=== PATIENT | male | born 1955 | race Caucasian/White ===

== ENCOUNTER 2018-07-24 19:45 | Observation (INO) | payer BC, SELFPAY ==
[2018-07-24 19:46] VITALS: BP 143/86; PULSE 95; RESP 16; TEMP 36.9; O2SAT 94; BMI 25.9
--- NOTE | 2018-07-24 20:05 | CT_ITS ---
STUDY: CT BRAIN WITHOUT CONTRAST REASON FOR EXAM: Male, 63 years old. Trauma RADIATION DOSAGE (If Supplied By Facility): CTDIvol = ( 44.99 ) mGy, DLP = ( 846.73 ) mGycm TECHNIQUE: Transaxial CT imaging of the brain was performed without administration of intravenous contrast material. Individualized dose optimization techniques were used for this CT. COMPARISON: None. FINDINGS: Normal soft tissue structures. Normal calvarium. There is mild cerebral atrophy with widening of the extra-axial spaces and ventricular dilatation. There are 2 small hyperdensities in the extra-axial fluid on the left near the skull vertex measuring approximately 1.2 cm in diameter each, suspicious for small focal subdural bleeds. Normal white matter tracts of the cerebral hemispheres. Normal basal ganglia and thalami. Normal brainstem. There is mild cerebellar atrophy. There are no findings of an acute ischemic infarction. There is mucosal thickening of the left maxillary sinus, right sphenoid sinus, and multiple ethmoid air cells bilaterally. CT/Brain/Head without Contrast IMPRESSION: Chronic involutional changes of the brain. There are 2 small hypodensities in the extra-axial fluid on the left near the skull vertex measuring approximately 1.2 cm in diameter each, suspicious for small focal subdural bleeds. Chronic paranasal sinusitis. Electronically Signed: Jeff Mccormick MD at 20:44 EDT , Service support ,
--- NOTE | 2018-07-24 20:06 | CT_ITS ---
STUDY: CT CERVICAL SPINE WITHOUT CONTRAST REASON FOR EXAM: Male, 63 years old. Trauma RADIATION DOSAGE (If Supplied By Facility): CTDIvol = ( 23.49 ) mGy, DLP = ( 497.07 ) mGycm TECHNIQUE: High resolution transaxial imaging was performed without contrast material. Sagittal and coronal images were reconstructed. Individualized dose optimization techniques were used for this CT. COMPARISON: None FINDINGS: Normal craniovertebral junction. Normal anterior atlantoaxial articulation. Normal odontoid process. Normal cervical lordosis. There is diffuse endplate spondylosis and disc space narrowing from C3 to C7. C2-3: Normal endplates. Normal disc height and morphology. Normal central canal and intervertebral neuroforamina. C3-4: There is severe disc space narrowing. There is moderately severe bilateral foraminal narrowing. There are mild degenerative facet changes bilaterally. There is no central canal stenosis. C4-5: There is severe disc space narrowing. There is severe bilateral foraminal narrowing. There is no central canal stenosis. There are mild bilateral degenerative facet changes. C5-6: There is severe disc space narrowing. There are mild bilateral degenerative facet changes. There is severe bilateral foraminal narrowing. There is no central canal stenosis. C6-7: There is severe disc space narrowing. There is moderately severe bilateral foraminal narrowing. There is no central canal stenosis. There are mild bilateral degenerative facet changes. C7-T1: Normal endplates. Normal disc height and morphology. Normal central canal and intervertebral neuroforamina. Normal visualized soft tissue structures. CT/Spine Cervical without Contras IMPRESSION: Multilevel degenerative changes, as described above. Electronically Signed: Jeff Mccormick MD at 20:59 EDT , Service support ,
--- NOTE | 2018-07-24 20:08 | ED.VISSUMM ---
- ER Visit Summary Date of Service: 07/24/18 Chief Complaint: Closed head injury History of Present Illness: The patient is a 63 M by a horse. He fell backwards. Hit his head on a gravel drive and loss conscious. He may have had a seizure. He is now awake and alert. He is backboard and c-collar. He denies any neck pain. He denies any numbness. He denies chest or abdominal pain. He felt fine prior to being knocked down. He has not had other head injuries. He is not on any blood thinners. Physical Examination: Older male backboard and c-collar. No distress. at bedside. H EENT exam pupils are reactive to light. No signs of facial trauma. Posterior scalp is tender. Patient is in a c-collar. Trachea midline. Lungs clear to auscultation bilaterally. Chest wall nontender. Heart regular rhythm no murmur rate in 90s. Abdomen soft nontender. No signs of trauma. No peritoneal signs. Pelvic girdle intact. He is moving all 4 extremities. Neurovascular intact. No deformities. Nontender. 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 Normal dorsi plantarflexion. Neurologically is awake and alert. He knows his nose where he is at. He knows the year. He is following commands. He is acting appropriately. His tongue does have a bruise on the tip he may have bit it. There is no laceration or bleeding. Dentition is intact. Test Results: CT of the C-spine shows degenerative changes but no acute fractures read by the radiologist and reviewed by me. CT of the brain without contrast the first radiologist is unsure if these are calcifications or small subdural hematomas. I spoke to a neuro radiologist who believes these to be calcifications and small meningiomas. But he cannot completely rule out a small subdural. I reviewed the films myself and I also think these are calcifications and small meningiomas. Emergency Department Course and Treatment: Patient will undergo a CT of his head and C-spine. Treatment Plan: Patient is doing well throughout his ER evaluation. He has had no seizures here. His neurologic exam currently is normal. His GCS at 2205 is 15. I discussed at length with the patient, his and son who is a EMT. And all are comfortable with him staying here overnight to have a repeat CAT scan in the morning. I discussed this with the overnight hospitalist who is also comfortable with the plan. Family was offered transfer to a trauma center but they are comfortable staying here. Disposition: Observation admission Impression: Acute head injury with LOC Rule out small subdural versus meningiomas and calcifications on CAT scan This note was generated with Chamate dictation software. It may contain incorrect words, spelling, and punctuation that were not noted in review of the chart prior to signing ED Disposition - Plan for ED Patient: Chief Complaint: Head Injury Referrals: Geoffrey Conley MD [Primary Care Provider] -
[2018-07-24 20:13] VITALS: O2SAT 98
[2018-07-24 20:22] LABS: Absolute Lymphocyte Count 2.27 X10^3/ul (0.83-4.51); Absolute Neutrophil Count 5.7 X10^3/uL (2.0-7.7); Basophil# 0.03 X10^3/uL; Basophil% 0.3 % (0-1); Eosinophil# 0.21 X10^3/uL; Eosinophils% 2.3 % (0-5); Hematocrit 41.6 % (40-54); Hemoglobin 14.1 g/dl (13.0-16.5); Lymphocyte # 2.27 X10^3/ul (4.0); Lymphocyte % 25.3 % (19-41); Mean Corp Hgb Conc 33.9 g/gl (32-36); Mean Corpuscular Volume 88.5 fL (80-94); Mean Platelet Vol. 9.6 fl (6.2-12.0); Monocyte% 8.9 % (0-10); Neutrophil # 5.65 X10^3/uL (2.7-7.7); Neutrophil % 63.1 % (47-70); POSITIVE COUNT NO; POSITIVE DIFFERENTIAL NO; POSITIVE MORPHOLOGY NO; Platelet Count 193 K/mm3 (150-450); RBC Distribution Width CV 12.8 % (11.6-14.6); RBC Distribution Width SD 41.2 fl (35.1-43.9)
[2018-07-24 20:27] LABS: Anion Gap 8 (5-15); BUN 13 mg/dL (7-18); BUN/Creat Ratio 13.4 RATIO (10-20); Calcium,Total 8.2 mg/dL (8.5-10.1); Chloride 106 mmol/L (98-107); Creatinine, Serum 0.97 mg/dL (0.70-1.30); EST Glomerular Filtration Rate 83 mL/min (>60); Est Glom Filt Rate - Afr Amer 100 mL/min (>60); Estimated Creatinine Clearance 71.93 ml/min; Glucose 102 mg/dL (74-106); Potassium 3.7 mmol/L (3.5-5.1); Sodium Level 139 mmol/L (136-145)
[2018-07-24 21:16] VITALS: BP 145/100; PULSE 100; RESP 20; O2SAT 95
[2018-07-24 21:21] VITALS: BP 137/88
[2018-07-24 22:17] VITALS: BP 131/82; PULSE 94; RESP 16; O2SAT 96
--- NOTE | 2018-07-24 22:56 | HP.PCM_ITS ---
Problem List (1) Closed head injury Status: Acute Qualifiers: Encounter type: initial encounter Qualified Code(s): S09.90XA - Unspecified injury of head, initial encounter History of Present Illness Date of Admission: 07/24/18 Chief Complaint: head injury The patient is a 63 year old male with no significant past medical history presents to the ER after falling backwards hitting his head. He was taking a horse to the barn but can;t remember what happened after that. His son was nearby and witnessed him falling backwards and hitting the back of his head. He was unresponsive for approximately two minutes and his son describes seeing his eyes rolling back into his head. 911 was called. The patient became responsive and alert prior to arrival at the ER. He now denies any neurological complaints. No headache, shortness of breath or chest pains nor any other injuries noted. Laboratory findings are within normal limits. CT scan of the head initially was read to have two small areas of concern for subdural hematoma however, upon re- read by neuroradiology it was felt that these were most likely calcifications and not actually bleeding. He will be admitted overnight for observation and w [facility] rescan in am. If negative findings then would dc home with instructions for concussion and followup with PCP as an outpatient. Past Medical History Allergies Penicillins Allergy (Verified 07/24/18 19:49) Upset Stomach Home Medications: Ambulatory Orders Medication Instructions Recorded Minocycline 50 mg PO DAILY 07/24/18 Pravastatin [Pravachol] 40 mg PO QHS 07/24/18 Terazosin HCl [Hytrin] 5 mg PO DAILY 07/24/18 Surgical History: no surgical history Smoking Status: Current some day smoker - *Family History Maternal History Items: No pertinent history Review of Systems Constitutional: Denies: Chills, Fever, Weight Change HEENT: Denies: Head Aches, Sinus Congestion, Sinus Drainage Cardiovascular: Denies: Chest Pain, Palpitations Respiratory: Denies: Cough, Shortness of breath at rest, Sputum production Gastrointestinal: Denies: Abdominal Pain, Nausea, Vomiting Genitourinary: Denies: Dysuria Musculoskeletal: Denies: Joint Pain, Joint Tenderness Skin: Denies: Rash, Wounds Neurological: Reports: - - temporary unresponsive following initial injury. Denies: Focal weakness, Numbness, Tingling Psychiatric: Denies: Anxiety, Depression, Homicidal Ideations, Suicidal Ideations Hematologic/ Lymphatic: Denies: Easy Bruising, Easy Bleeding VTE Information - Inpt Only VTE Present on Admission: No VTE Mechan Device Prophylaxis: SCD's VTE Pharm Prophylaxis ordered?: No Patient Problems: Active and Suspected Problems Closed head injury (Acute) - Physical Exam General: Alert, Oriented x3, Cooperative HEENT: Atraumatic, PERRLA, EOMI, Normocephalic Neck: Supple Lungs: Clear to auscultation, Normal air movement Cardiovascular: Regular rate, Normal S1, Normal S2, No murmurs Abdomen: Bowel Sounds Present, Soft, Non Tender Extremities: No edema, Capillary Refill Less than 3 Seconds Skin: No rashes, No breakdown Musculoskeletal: No Tenderness to Palpation of Joints or Extremities Neurological: Cranial nerves II-XII grossly intact, Neuro grossly intact Psych/Mental Status: Normal Affect, Appropriate Vital Signs Temp Pulse Resp BP Pulse Ox 98.4 F 94 16 131/82 H 96 07/24/18 19:46 07/24/18 22:17 07/24/18 22:17 07/24/18 22:17 07/24/18 22:17 Oxygen Delivery Method Room Air Weight: 165 lb 6.986 oz Body Mass Index (BMI) 25.9 Laboratory Tests Past 24 Hrs 07/24/18 07/24/18 20:00 20:00 WBC 9.0 RBC 4.70 Hgb 14.1 Hct 41.6 MCV 88.5 MCH 30.0 MCHC 33.9 RDW 12.8 RDW Differential 41.2 Plt Count 193 MPV 9.6 Immature Gran % (Auto) 0.100 Neut % (Auto) 63.1 Lymph % (Auto) 25.3 Hamlin % (Auto) 8.9 Eos % (Auto) 2.3 Baso % (Auto) 0.3 Absolute Neuts (auto) 5.7 Absolute Lymphs (auto) 2.27 Total Counted Not Reportable Sodium 139 Potassium 3.7 Chloride 106 Carbon Dioxide 25.0 Anion Gap 8 BUN 13 Creatinine 0.97 Estim Creat Clear Calc 71.93 Est GFR (MDRD) Af Amer 100 Est GFR (MDRD) Non-Af 83 BUN/Creatinine Ratio 13.4 Glucose 102 Calcium 8.2 L Assessment/Plan All Active Problems Closed head injury (Acute) Plan - admit to PCU - neurochecks q 4hrs - Non contrast CT head in am - soft diet advance as tolerated - continue routine home medications - scds if pt to stay prolonged time Code Visit OBSV E&M: 69679 Initial observation care L2
[2018-07-24 23:08] VITALS: BMI 25.9
[2018-07-24 23:23] VITALS: BP 131/80; PULSE 95; RESP 14; TEMP 37.3; O2SAT 96
[2018-07-24] MEDS: Pravastatin 40 MG Tablet PO (23:45)
[2018-07-24] MEDS: Doxazosin 4 MG Tablet PO (23:45)
[2018-07-25 00:15] VITALS: PULSE 95; RESP 14; O2SAT 96
[2018-07-25 04:15] VITALS: BP 111/66; PULSE 89; RESP 16; TEMP 36.9; O2SAT 98
[2018-07-25 04:20] VITALS: PULSE 89; RESP 16; O2SAT 98
[2018-07-25 09:13] VITALS: BP 112/76; PULSE 80; RESP 18; TEMP 37.2; O2SAT 97
--- NOTE | 2018-07-25 09:43 | DCINST_ITS ---
- Discharge Diagnoses Current Active Problems: Current Active and Chronic Problems (1) Closed head injury secondary to mechanical fall w/ loss of consciousness, suspected concussion (2) Tobacco use with possible underlying Chronic COPD (3) Hyperlipidemia You will use the following diet at home:: Cardiac Your food should be the consistency of: Regular Your liquids should be the consistency of: Regular/Thin Discharge Activity: - - Avoid aggressive activity, avoid TV, avoid reading, avoid driving until re-evaluation per primary care physician and assure concussion symptoms are completely resolved prior to slow re-addition of brain activity. Weight Bearing Status: Weight bearing as tolerated Call your doctor if you observe: Fever of 101 or Higher, Inability to urinate, Inability to have a bowel movement, Shortness of breath, Dizziness, Fainting spells, Chest pain, Uncontrolled pain, - - Headaches, nausea or emesis, light or sound increased sensitivity, changes in vision. Instructions: What is Traumatic Brain Injury?, Treatment for Mild Traumatic Brain Injury (Concussion), What is Mild Traumatic Brain Injury (Concussion)?, Discharge Instructions for Concussion, Why Do You Smoke?, Planning to Quit Smoking, Getting Support for Quitting Smoking, Coping with Smoking Withdrawal, Staying Smoke-Free, What is COPD? Additional Instructions: Encourage strongly tobacco cessation. Also given examination suspect possible underlying chronic obstructive pulmonary disease. Recommend pulmonary function testing per your primary care physician. Allergies/Adverse Reactions: Allergies Penicillins Allergy (Verified 07/24/18 19:49) Upset Stomach Medications to take at Discharge Minocycline 50 mg PO BID 07/24/18 Pravastatin [Pravachol] 40 mg PO QHS 07/24/18 Terazosin HCl [Hytrin] 5 mg PO QHS 07/24/18 Primary Care Physician: Geoffrey Conley MD [Primary Care Provider] - Please follow up with your Primary Care Physician in: Follow-up with PCP within 2-3 days to review admission, discuss concussion. Test Results: Test results from this visit will be discussed in further detail at your follow- up appointment, if applicable. Proposed Discharge Date: 07/25/18
--- NOTE | 2018-07-25 09:50 | DS.PCM_ITS ---
Discharge Date and Diagnosis - Problem List Patient Problems: Active and Suspected Problems Closed head injury (Acute) Date of Admission: 07/24/18 Date of Discharge: 07/25/18 - Primary Discharge Diagnosis Active and Suspected Problems (1) Closed head injury secondary to mechanical fall w/ loss of consciousness, suspected concussion (2) Abnormal CT head, MRI Brain w/ tiny calcification versus SDH (3) Tobacco use with possible underlying Chronic COPD (4) Hyperlipidemia - Secondary Discharge Diagnosis (1) Tobacco use with possible underlying Chronic COPD (2) Hyperlipidemia Hospital Course and Treatment Imaging Results: 07/25/18 10:00 CT Head [Brain/Head without Contrast] [CT] Timed Operations: None Procedures: EKG Summary of Care Provided: The patient is a 63 y/o M w/ PMHx: Tobacco use, Suspected underlying COPD, HLD who presents to the [facility] ED on 07/24/18 with history of mechanical fall, noted to fall backwards and hitting 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 Upon ED presentation patient was responsive and alert with no neurological symptoms or complaints. He denied any headache, sensitivity to light or sounds, nausea or emesis. ED evaluation including labs was not marked appearing. CT of the head was performed and initial read was concerning for 2 small areas of possible hematoma however re-read by the neuroradiologist which was discussed with the ED physician and hospitalist was felt likely calcifications with no bleeding. Patient was admitted to medical surgical floor for observation with repeat CT head obtained and reviewed directly with radiation who noted similar findings to initial, but unable to rule out small subdural findings therefore recommendation to obtain MRI Brain versus obtain additional CT head for comparison which was performed. MRI Brain obtained w/ noted 2 small hyperdense extra-axial blood located adjacent to the left posterior falx cerebri/medial to the left posterior paracentral lobule and overlying the left superior frontal lobe gyrus are atypical and not explained on MRI, no magnetic susceptibility on the gradient echo sequence, not hyperintense on T1 and T2 weighted sequences. Reviewed imaging with Neurology, Dr. Pereyra who was consulted and reviewed case as well with recommended MRV Brain without contrast to evaluate for venous thrombus which was unremarkable. Therefore discussed again w/ Neurology and they also reviewed with plan for discharge to home with noted plan follow-up with Neurosurgery outpatient in 2 weeks as well as his service in 4 weeks with planned repeat CT head outpatient. Encourage patient to maintain strict postconcussion brain rest protocols with early follow-up with primary care physician and slow re-transitioning back into activities as able to with all neurological symptoms resolved. Additionally patient examination and history concerning for likely underlying pulmonary disease with recommendations for PFTs to be arranged per primary care physician and tobacco cessation strongly encouraged. DAY OF DISCHARGE PROGRESS NOTE: Subjective: Patient without acute event overnight per self and nursing report. Patient notes only sore at the posterior aspect of the head where he landed otherwise no acute complaints and denies any headache, nausea, emesis, light or sound sensitivity at this time. Encouraged tobacco cessation and noted concern for possible underlying pulmonary disease baseline. Patient denies fever, chills, nausea, emesis, abdominal pain, chest pain or dyspnea. Patient agreeable to discharge to home following repeat CT head confirming no acute bleeding or concerning findings. Patient will be discharged with follow-up with primary care physician early to continue to evaluate for concussion protocols. Objective: T 98.9, heart rate 80, BP 112/76, respiratory rate 18, 97% on room air. Physical Examination: General: awake, alert, oriented x 3 and cooperative, seated upright in the bed, NAD. Skin: normal color, turgor, no icterus, cyanosis, except posterior scalp small lump secondary to recent fall with no acute bleeding noted. HEENT: AT/NC except posterior scalp small lump on the right lateral side secondary to recent fall with no acute bleeding noted, EOMI, PERRLA, MMM. Lungs: Mildly diminished bases, moderate effort, expiratory wheezing noted, no rales or rhonchi. Heart: Regular rate and rhythm; no gallop, rub audible. Abdomen: soft, NTTP, ND, normal BS. Extremities: no cyanosis, clubbing, or edema. Neurological: patient awake, alert, oriented x 3; cognitive function appears intact upon questioning,; pupils equally reactive to light and accomodation; cranial nerves II-XII grossly normal, moving all 4 extremities, strength appropriate. Psychiatric: affect appears normal, no acute evidence of depressive or anxiety feelings. Assessment and Plan: Please see hospital summary above. Discharge Activity: - - Avoid aggressive activity, avoid TV, avoid reading, avoid driving until re-evaluation per primary care physician and assure concussion symptoms are completely resolved prior to slow re-addition of brain activity. Weight Bearing Status: Weight bearing as tolerated Call your doctor if you observe: Fever of 101 or Higher, Inability to urinate, Inability to have a bowel movement, Shortness of breath, Dizziness, Fainting spells, Chest pain, Uncontrolled pain, - - Headaches, nausea or emesis, light or sound increased sensitivity, changes in vision. Home Medications: Medications to take at Discharge Minocycline 50 mg PO BID 07/24/18 Pravastatin [Pravachol] 40 mg PO QHS 07/24/18 Terazosin HCl [Hytrin] 5 mg PO QHS 07/24/18 Primary Care Physician: Geoffrey Conley MD [Primary Care Provider] - Please follow up with your Primary Care Physician in: Follow-up with PCP within 2-3 days to review admission, discuss concussion. Patient Instructions: What is Traumatic Brain Injury?, What is Mild Traumatic Brain Injury (Concussion)?, Treatment for Mild Traumatic Brain Injury (Concussion), What is COPD?, Why Do You Smoke?, Planning to Quit Smoking, Getting Support for Quitting Smoking, Coping with Smoking Withdrawal, Staying Smoke-Free, Discharge Instructions for Concussion Disposition: Home Minutes spent on discharge:: 25 Patient Condition:: Fair Medical Necessity - Tobacco Use Smoking Status: Current some day smoker Meaningful Use Info Meaningful Use Diagnoses (Choose all that apply): None applicable Code Visit OBSV E&M: 59661 Observation care discharge
--- NOTE | 2018-07-25 10:00 | CT_ITS ---
STUDY: CT BRAIN WITHOUT CONTRAST REASON FOR EXAM: Male, 63 years old. Trauma. Suspicion for small focal subdural hemorrhages. RADIATION DOSAGE (If Supplied By Facility): CTDIvol = ( 44.99 ) mGy, DLP = ( 812.98 ) mGycm TECHNIQUE: Transaxial CT imaging of the brain was performed without administration of intravenous contrast material. Individualized dose optimization techniques were used for this CT. COMPARISON: 07/24/2018 CT brain. FINDINGS: Stable soft tissue structures. Stable calvarium. Stable size ventricles and extra-axial spaces for the patient's age. Normal white matter tracts of the cerebral hemispheres. Normal basal ganglia and thalami. Normal brainstem. Mild decrease cerebellum size noted consistent with mild atrophic changes. There is no new intracranial hemorrhage. 2 rounded high attenuation lesions are seen in the superior left vertex subdural region, the more anterior of which measures approximately 0.9 x 1.1 cm, previously 1.1 x 1.2 cm and the more posterior similar lesion near the posterior falx is also noted approximate 0.96 x 0.48 cm, previously 1.2 x 10.7 cm. There are no findings of a large territorial acute ischemic infarction. Nonacute visualized paranasal sinuses with partial opacification again seen bilateral maxillary, right sphenoid and bilateral ethmoid air cells. Nonacute appearing bilateral mastoid air cells and middle ears noted. Extensive metal dental artifact noted from most inferior images obtained obscuring adjacent structures. Severe bilateral cavernous carotid arterial calcifications. CT/Brain/Head without Contrast IMPRESSION: Redemonstration smaller appearing left superior vertex rounded high attenuation areas, may represent tiny subdural hemorrhages with mild clot retraction given central Hounsfield units of [address]/MRI brain imaging available. No new CT finding of intracranial acute hemorrhage identified. Bilateral chronic sinusitis, unchanged. Mild limitations above. Electronically Signed: Christopher Hickey, at 11:14 EDT Tel , Service support ,
--- NOTE | 2018-07-25 11:41 | MRI_ITS ---
STUDY: MRI BRAIN WITHOUT CONTRAST REASON FOR EXAM: Male, 63 years old. Headache. Status post fall with loss of consciousness. Follow-up to CT brain scans concern for subdural versus calcifications. TECHNIQUE: Standardized multiplanar fat and water weighted pulse sequences were obtained. COMPARISON: CT head without contrast 07/25/2018. FINDINGS: The hyperdense extra-axial blood adjacent the posterior left side of the falx cerebri and medial to the left posterior paracentral lobule and another small hyperdense extra-axial blood overlying the left superior frontal lobe gyrus did not show any genetic susceptibility on the gradient echo sequence. They are not hyperintense on T1 and T2. Normal size of the ventricles and extra-axial spaces for the patient's age. T2 FLAIR hyperintensity foci in the white matter of both cerebral hemispheres are chronic white matter ischemic changes. Normal bilateral basal ganglia. Normal thalami. There is no extra-axial fluid accumulation. Normal flow voids within the major intracranial circulation suggesting patency by spin echo criteria. Normal sella turcica, pituitary gland, infundibular stalk, optic chiasm and hypothalamus. Normal tectal plate and pineal gland. Normal midbrain, basil and medulla. Normal cerebellum. Normal basal cisterns. Normal bilateral temporal bones. Normal bilateral internal auditory canals. No demonstrated orbital abnormality, within the constraints of a routine brain study. Normal visualized paranasal sinuses. Normal calvarium and skull base. Normal visualized soft tissue structures. Normal visualized upper cervical spine. MRI/Brain without Contrast IMPRESSION: 1. The 2 small hyperdense extra-axial blood located adjacent the left posterior falx cerebri/medial to the left posterior paracentral lobule and overlying the left superior frontal lobe gyrus are atypical and not explained on MRI. They have no magnetic susceptibility on the gradient echo sequence. They are also not hyperintense on T1 and T2 weighted sequences. The possibility of atypical venous varix cannot be excluded. CTA head to include the venous phase may be helpful for further evaluation. 2. Chronic white matter ischemic changes in both cerebral hemispheres. Electronically Signed: Saul Junior MD at 13:23 EDT , Service support ,
[2018-07-25 13:11] VITALS: BP 144/90; PULSE 92; RESP 18; TEMP 37; O2SAT 96
--- NOTE | 2018-07-25 13:38 | MRI_ITS ---
STUDY: EXAMINATION - MRV BRAIN WITHOUT CONTRAST REASON FOR EXAM: Male, 63 years old. Headache. Status post fall with loss of consciousness. Evaluate abnormal hyperdense blood seen on CT but not confirmed on MRI due to absence of magnetic susceptibility on gradient echo sequence. For further evaluation. TECHNIQUE: 3D [id number] (TOF) imaging was performed in a 1.5 gonzalo MRI scanner. COMPARISON: CT head without contrast 07/25/2018. MR brain without contrast 07/25/2018. FINDINGS: Normal flow within the superior sagittal sinus. Normal flow within the superficial cortical veins. Normal flow within the paired internal cerebral veins, vein of Darius and straight sinus. Normal right transverse sinus and right sigmoid sinus. Hypoplastic left transverse sinus. Normal left sigmoid sinus. Normal flow within the bilateral jugular bulbs. MRI/MRV Head Without Contrast IMPRESSION: Normal unenhanced MRV of the brain. COMMENT: In my opinion, CTA to include venous phase will be very helpful for further evaluation but serial follow-up CT head scan without contrast will also help. Electronically Signed: Saul Junior MD at 16:34 EDT , Service support ,
--- NOTE | 2018-07-25 14:40 | CON.PCM_ITS ---
Problem List (1) Closed head injury Status: Acute Qualifiers: Encounter type: initial encounter Qualified Code(s): S09.90XA - Unspecified injury of head, initial encounter Reason for Consult Date of Consultation: 07/25/18 Reason for Consultation: Fall, head injury, abnormal imaging History of Present Illness: The patient is a 63 year old M with PMH HLD, BPH admitted following a fall and closed head injury. Per patient he was fell backwards hit his head, was knocked down by his horse, was unresponsive for about 2 minutes, does not remember the event, no witnessed GTCs, or post ictal state, denies any syncope in the past. Per documentation he was alert and oriented on arrival to the ED and did not have any focal neurological deficits. Had soreness in the head after the event, but denies any SAUCEDA, visual disturbances, vision loss, speech disturbances, focal motor weakness or sensory loss. CT head done on admission reported to show 2 small extra-axial hyperdensities on the left near the skull vertex more likely represent calcifications due to sharp margins. Repeat CT head this morning (07/25/18) reported as redemonstration smaller appearing left superior vertex rounded high attenuation areas, may represent tiny subdural hemorrhages with mild clot retraction given central Hounsfield units of 46. MRI brain done following that reported to show 2 small hyperdense extra-axial blood located adjacent the left posterior falx cerebri/medial to the left posterior paracentral lobule and overlying the left superior frontal lobe gyrus are atypical and not explained on MRI. They have no magnetic susceptibility on the gradient echo sequence. They are also not hyperintense on T1 and T2 weighted sequences. The possibility of atypical venous varix cannot be excluded. Past Medical History Allergies Penicillins Allergy (Verified 07/24/18 19:49) Upset Stomach Home Medications: Ambulatory Orders Medication Instructions Recorded Minocycline 50 mg PO BID 07/24/18 Pravastatin [Pravachol] 40 mg PO QHS 07/24/18 Terazosin HCl [Hytrin] 5 mg PO QHS 07/24/18 Surgical History: no surgical history Lives: Spouse/ Significant Other Smoking Status: Current some day smoker Alcohol: None Drugs: None - *Family History Maternal History Items: No pertinent history Review of Systems Constitutional: Reports: - - complete ROS negative except as documented in HPI Patient Problems: Active and Suspected Problems Closed head injury (Acute) - Physical Exam General: Alert HEENT: Normocephalic Neck: Supple Lungs: Normal air movement Cardiovascular: Normal S1, Normal S2 Abdomen: Bowel Sounds Present Extremities: No cyanosis Neurological: Cranial nerves II-XII grossly intact, - - consious, alert, AoAx3, CN 2-12 grossly intact, power 5/5 all 4 extremities, no sensory loss, no cerebellar signs, Reflexes + B/L B/S/T/K/A, gait deferred. Psych/Mental Status: Normal Affect Vital Signs Temp Pulse Resp BP Pulse Ox 98.6 F 92 18 144/90 H 96 07/25/18 13:11 07/25/18 13:11 07/25/18 13:11 07/25/18 13:11 07/25/18 13:11 Oxygen Delivery Method Room Air Weight: 75.1 kg Body Mass Index (BMI) 25.9 Intake and Output for Last 24 Hours 07/23/18 07/24/18 07/25/18 23:59 23:59 23:59 Intake Total 680 / 680 Output Total 1225 / 1225 Balance -545 / -545 Laboratory Tests Past 24 Hrs 07/24/18 07/24/18 20:00 20:00 WBC 9.0 RBC 4.70 Hgb 14.1 Hct 41.6 MCV 88.5 MCH 30.0 MCHC 33.9 RDW 12.8 RDW Differential 41.2 Plt Count 193 MPV 9.6 Immature Gran % (Auto) 0.100 Neut % (Auto) 63.1 Lymph % (Auto) 25.3 [place] % (Auto) 8.9 Eos % (Auto) 2.3 Baso % (Auto) 0.3 Absolute Neuts (auto) 5.7 Absolute Lymphs (auto) 2.27 Total Counted Not Reportable Sodium 139 Potassium 3.7 Chloride 106 Carbon Dioxide 25.0 Anion Gap 8 BUN 13 Creatinine 0.97 Estim Creat Clear Calc 71.93 Est GFR (MDRD) Af Amer 100 Est GFR (MDRD) Non-Af 83 BUN/Creatinine Ratio 13.4 Glucose 102 Calcium 8.2 L Assessment/Plan All Active Problems Closed head injury (Acute) The patient is a 63 year old M with PMH HLD, BPH admitted following a fall and closed head injury. Per patient he was fell backwards hit his head, was knocked down by his horse, was unresponsive for about 2 minutes, does not remember the event, no witnessed GTCs, or post ictal state, but per son his eyes rolled back, denies any syncope in the past. Per documentation he was alert and oriented on arrival to the ED and did not have any focal neurological deficits. Had soreness in the head after the event, but denies any SAUCEDA, visual disturbances, vision loss, speech disturbances, focal motor weakness or sensory loss. CT head done on admission reported to show 2 small extra-axial hyperdensities on the left near the skull vertex more likely represent calcifications due to sharp margins. Repeat CT head this morning (07/25/18) reported as redemonstration smaller appearing left superior vertex rounded high attenuation areas, may represent tiny subdural hemorrhages with mild clot retraction given central Hounsfield units of 46. MRI brain done following that reported to show 2 small hyperdense extra-axial blood located adjacent the left posterior falx cerebri/medial to the left posterior paracentral lobule and overlying the left superior frontal lobe gyrus are atypical and not explained on MRI. They have no magnetic susceptibility on the gradient echo sequence. They are also not hyperintense on T1 and T2 weighted sequences. The possibility of atypical venous varix cannot be excluded. Impression Closed head injury Plan -Check MRV to r/o venous sinus thrombosis -MRI brain and CT head reviewed- likely calcification vs tiny small SDH -Labs reviewed -Counseled the patient and family to monitor for seizures, focal neurological symptoms and change in mental status -Follow up with Neurosurgery as outpatient chantal. -Fall precautions -GI/DVT prophylaxis -Further medical management per primary team -Follow with Neurology as outpatient in [address] head in 4 weeks -Please call with questions if any -Thank you for allowing us to participate in patient's care and management. Code Visit Inpatient E&M: 15098 Init Hosp L3
[2018-07-25 17:15] VITALS: BP 140/84; PULSE 97; RESP 18; TEMP 36.6; O2SAT 99
== END 2018-07-25 17:20 | disposition home or self-care (01) ==
LOC: ED 20:57 → MS3 22:51
PROVIDERS: Admitting Provider Family Medicine; Emergency Provider Emergency Medicine; Family Provider Family Medicine; PCP Family Medicine; Visit Provider Family Medicine
DX: S06.9X9A Unspecified intracranial injury with loss of consciousness of unspecified duration, initial encounter (principal); W19.XXXA Unspecified fall, initial encounter; Y93.K9 Activity, other involving animal care; Y92.89 Other specified places as the place of occurrence of the external cause; E78.5 Hyperlipidemia, unspecified; N40.0 Benign prostatic hyperplasia without lower urinary tract symptoms; Z79.899 Other long term (current) drug therapy; I10 Essential (primary) hypertension; F17.200 Nicotine dependence, unspecified, uncomplicated
CPT/HCPCS: 70450; 70544; 70551; 72125; 80048; 85025; 99218; 99285; 99406; G0378

== ENCOUNTER → 2018-08-25 14:38 | Outpatient (CLI) | payer BC, SELFPAY ==
--- NOTE | 2018-08-25 14:41 | CT_ITS ---
STUDY: CT BRAIN WITHOUT CONTRAST REASON FOR EXAM: Male, 63 years old. Closed and injury, headache RADIATION DOSAGE (If Supplied By Facility): CTDIvol = ( 44.99 ) mGy, DLP = ( 829.85 ) mGycm TECHNIQUE: Transaxial CT imaging of the brain was performed without administration of intravenous contrast material. Individualized dose optimization techniques were used for this CT. COMPARISON: 07/25/2018 FINDINGS: Normal soft tissue structures. Normal calvarium. There is mild cerebral atrophy with widening of the extra-axial spaces and ventricular dilatation. There are areas of decreased attenuation within the white matter tracts of the supratentorial brain, consistent with microvascular disease changes. Normal basal ganglia and thalami. Normal brainstem. Normal cerebellum. On the coronal images there is an isodense area along the inner table of the left parietal region with thickness of 5 mm consistent with a subacute subdural hemorrhage. There is no midline shift or mass effect because of the atrophic changes present. There is however evidence of hyper density within this collection on coronal recon images 64-69 suggesting a focal area of acute hemorrhage. Normal visualized paranasal sinuses. CT/Brain/Head without Contrast IMPRESSION: Evidence of a subacute resolving left subdural hematoma with a focal area of hyperdensity within the hematoma suggesting acute hemorrhage. There is no mass effect, or midline shift or associated edema due to the atrophic changes present.. Electronically Signed: Houston Nixon MD at 17:23 EST , Service support ,
== END ==
PROVIDERS: Family Provider Family Medicine; PCP Family Medicine; Referring Provider Clinical Nurse Specialist Acute Care; Visit Provider Clinical Nurse Specialist Acute Care
DX: S06.5X9A Traumatic subdural hemorrhage with loss of consciousness of unspecified duration, initial encounter (principal); W19.XXXA Unspecified fall, initial encounter
CPT/HCPCS: 70450

== ENCOUNTER → 2018-09-19 14:34 | Outpatient (CLI) | payer BC, SELFPAY ==
--- NOTE | 2018-09-19 14:37 | CT_ITS ---
STUDY: CT BRAIN WITHOUT CONTRAST REASON FOR EXAM: Male, 63 years old. ] Head injury RADIATION DOSAGE (If Supplied By Facility): CTDIvol = ( 60.81 ) mGy, DLP = ( 2179.77 ) mGycm TECHNIQUE: Transaxial CT imaging of the brain was performed without administration of intravenous contrast material. Individualized dose optimization techniques were used for this CT. COMPARISON: None. FINDINGS: There is mild generalized brain atrophy with no acute hemorrhage or acute infarction and no intra or extra-axial tumor mass. The calvarium is intact. No scalp swellings. The orbits and mastoid air cells are normal. There are inflammatory changes involving the right sphenoid sinus CT/Brain/Head without Contrast IMPRESSION: No acute findings in the brain. Emphysematous changes in the right sphenoid sinus Electronically Signed: Gideon Swift MD at 5:02 EST Tel , Service support ,
== END ==
PROVIDERS: Family Provider Family Medicine; PCP Family Medicine; Referring Provider Nurse Practitioner Acute Care; Visit Provider Nurse Practitioner Acute Care
DX: S09.90XA Unspecified injury of head, initial encounter (principal); R58 Hemorrhage, not elsewhere classified
CPT/HCPCS: 70450

== ENCOUNTER → 2020-03-12 10:06 | Outpatient (CLI) | payer BC, SELFPAY ==
--- NOTE | 2020-03-12 10:15 | CT_ITS ---
STUDY: CT BRAIN WITHOUT CONTRAST REASON FOR EXAM: Male, 65 years old. FALLS, HX CONCUSSION YRS AGO RADIATION DOSAGE (If Supplied By Facility): CTDIvol = ( 60.81 ) mGy, DLP = ( 1112.69 ) mGycm TECHNIQUE: Transaxial CT imaging of the brain was performed without administration of intravenous contrast material. Individualized dose optimization techniques were used for this CT. COMPARISON: Comparison is made with prior examination dated September 19, 2018. FINDINGS: Normal soft tissue structures. Normal calvarium. There is mild cerebral atrophy with widening of the extra-axial spaces and ventricular dilatation. Stable focal area of encephalomalacia in the left parietal lobe. Normal basal ganglia and thalami. Normal brainstem. There is mild cerebellar atrophy. There is no intracranial hemorrhage. There are no findings of an acute ischemic infarction. Partial opacification of the ethmoid sinuses and the right sphenoid sinus. Mucosal thickening along the inferior aspect of the maxillary sinuses bilaterally. CT/Brain/Head without Contrast IMPRESSION: Chronic involutional changes of the brain. Sinusitis. Electronically Signed: Addy Gonzalez, at 11:12 EDT , Service support ,
== END ==
PROVIDERS: PCP Family Medicine; Referring Provider Clinical Nurse Specialist Acute Care; Visit Provider Clinical Nurse Specialist Acute Care
DX: S09.90XS Unspecified injury of head, sequela (principal)
CPT/HCPCS: 70450

== ENCOUNTER 2020-08-26 14:56 | Emergency (ER) | payer OTHER, BC, SELFPAY ==
[2020-08-26 14:57] VITALS: BP 122/53; PULSE 125; RESP 16; TEMP 36.3; O2SAT 96; BMI 26.9
--- NOTE | 2020-08-26 15:16 | RAD_ITS ---
STUDY: X-RAY - LEFT ANKLE REASON FOR EXAM: Male, 65 years old. FALL, ANKLE PAIN TECHNIQUE: 3 view(s) of the ankle. COMPARISON: None. FINDINGS: Normal visualized distal tibia and fibula. Nondisplaced linear fracture of the lateral malleolus with overlying soft tissue swelling. Normal tibiotalar articulation and ankle mortise. Normal visualized talus and calcaneus. The visualized subtalar, talonavicular, calcaneocuboid and tarsal articulations are normal. Soft tissue swelling. RAD/Ankle min 3 Views IMPRESSION: Nondisplaced fracture of the lateral malleolus with overlying soft tissue swelling. Electronically Signed: Addy Gonzalez, at 15:38 EST , Service support ,
--- NOTE | 2020-08-26 15:17 | ED.VISSUMM ---
- ER Visit Summary Date of Service: 08/26/20 Chief Complaint: Left ankle injury History of Present Illness: The patient is a 65 M who presents with a left ankle injury that occurred today while he was at work. Patient states he was walking and tripped. Patient states he fell and twisted his left ankle. Patient thinks he may have heard a snap when he fell. Patient states the pain is worse with standing. Patient describes the pain as aching. Patient denies any paresthesias or weakness. Patient denies any head injury or loss of consciousness. Patient denies any other injuries. Physical Examination: Vital signs are stable. Patient is afebrile. Patient is in no acute distress. Musculoskeletal exam reveals tenderness and edema over the anterior and lateral aspects of the left ankle. There is no bony crepitance or step-off. Range of motion was slightly limited in all motions of the left ankle secondary to pain. Pedal pulses are equal bilaterally. Sensation was intact to light touch in all digits. There is no tenderness over the fifth metatarsal or proximal fibula. Test Results: X-rays of the left ankle were obtained. There is nondisplaced fracture of the distal fibula. This was interpreted by the radiologist and reviewed by myself. Emergency Department Course and Treatment: Patient declined any analgesics here in the emergency department. Patient was placed in a well-padded custom made posterior splint using 4 inch Ortho-Glass. Patient was given a prescription for [place]. Patient was instructed to ice and elevate the left ankle. Patient states he has followed up with Dr. Sandoval in the past and wants to follow-up with him. Patient was instructed to follow-up in 3 to 5 days. Patient understood and was agreeable with the plan. All questions were answered. Disposition: Discharge home Impression: Acute fracture left distal fibula This note was generated with Masher dictation software. It may contain incorrect words, spelling, and punctuation that were not noted in review of the chart prior to signing ED Disposition - Plan for ED Patient: Disposition: Home or Assisted Living Diagnosis: Closed fracture of left distal fibula Instructions: ED Ankle Fx Distal Fibula Prescriptions: Hydrocodone Bitart/Apap 5-325 [[place] 5MG-325MG] 1 tab PO Q6H PRN PRN 3 Days #10 tab PRN Reason: Pain Prescription Printed Referrals: Paulino Sandoval DO [STAFF PHYSICIAN] - 3-5 Days
== END 2020-08-26 17:07 | disposition home or self-care (01) ==
PROVIDERS: Emergency Provider Emergency Medicine; PCP Family Medicine
DX: S82.402A Unspecified fracture of shaft of left fibula, initial encounter for closed fracture (principal); F17.200 Nicotine dependence, unspecified, uncomplicated; Y93.01 Activity, walking, marching and hiking
CPT/HCPCS: 29515; 73610; 99282

== ENCOUNTER 2021-01-16 14:00 | Outpatient (RCR) | payer OTHER, SELFPAY ==
--- NOTE | 2020-12-05 14:28 | HP.PTEVAL_ITS ---
Patient's Visit Information LYRIC PADRON is a 65 year old M referred to Physical Therapy by MAYO WheelerM with a diagnosis of Nondisplaced Fx lateral malleolus left Fibula. Date of Evaluation: 12/05/20 Physical Therapist: BARRY Larson - Visit Plan Frequency: 3x /Week Duration: 6 Weeks Plan: Pt has been see for 18 visits at [facility]. He is not doing a HEP so reviewing a home band program might benefit this pt as well as when ready for a L hip and knee strengthening program. 3X/ week for 6 weeks for L ankle AROM, stretching strengthening, weightbearing strengthening and balance, gait training, L HIP AND KNEE STRENGTHENING with HEP - Subjective Pt broke his L ankle Aug 27, 2020. He got tangled up in a bunch of michael outside on the company property and he just went down. He went to the ER and did an x-ray and did a temp cast and then went to [facility] and did an air cast and was non weightbearing for awhile. Then he went to PT at [facility]. He feels that he has made improvements and can walk a little bit without the cane. He still has pain on the outside and inside of the ankle when he is up walking on it. He wears a brace on his L ankle except to sleep. He uses a cane. He reports that he has a little bit of trouble with his balance on his R ankle once in awhile. He is alos losing his balance on the L. He has stairs at home but is not using them. There are 3 steps into the garage and there is not a railing there and he goes up 2 feet to a step and he descends the steps also 2 feet to a step. 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 He did not have to do surgery. First few steps out of bed in the morning because of pain and stiffness and uses the rodríguez to help steady himself - Pain L ankle pain Pain Intensity (Out of 10): 4 - Objective gait: Walks with increase veering and decrease stance time on the L LE without a cane. Decrease DF with gait B.... step length. R ankle AROM: 17, 44, 2, 31 (DF, PF, EV, INV). L ankle AROM: 7, 44, 2, 24 (DF, PF, EV, and INV). R ankle MMT:4+/5 DF, PF, INV, EV. L ankle MMT: 4-/5 DF, 4-/5 PF, IN/EV 4-/5. FGA: 20/30. L hip MMT: ext 3-/5, hip abd 3+/5m hip flex 4-/5, knee flex 4-/5. Pt is able to do standing heel and toe raises with the use of the rail with some increase pain on the Lateral side of the L ankle. - Balance Scores Functional Gait Assessment Score: 20 % Disability: 33.3400 - Goals Goal 1:: I HEP Goal Time Frame: 4-6 Weeks Goal 2:: Increase L ankle strength by 1/2 muscle grade (at the time of the eval: L ankle MMT: 4-/5 DF, 4-/5 PF, IN/EV 4-/5) Goal Time Frame: 4-6 Weeks Goal 3:: Increase L hip and knee strength by 1/2 muscle grade (at the time of the eval: L hip MMT: ext 3-/5, hip abd 3+/5m hip flex 4-/5, knee flex 4-/5). Goal Time Frame: 4-6 Weeks Goal 4:: Increase balance by increaseing FGA by 4 points to decrease fall risk (at time of eval score was a 20) Goal Time Frame: 4-6 Weeks Goal 5:: Be able to walk without the cane 100 feet with no veering comfortable without LOB Goal Time Frame: 4-6 Weeks - Rehabilitation Potential Rehabilitation Potential: Good - Anticipated Interventions Patient/Client Instruction: Educate patient on: Condition, Plan of Care For the Purpose of:: To decrease pain, To decrease swelling/inflammation, To increase ROM, To improve nutrient delivery to tissue, To improve muscle performance and motor function, To improve ability to perform ADL's, To increase tolerance to activity/condition/position, To improve performance and independence with ADL's, To decrease level of supervision to perform tasks, To improve ability of physical actions for home/community/work/leisure, To improve gait and locomotor functions, To improve health of tissue, To decrease soft tissue restriction, To increase flexibility/ROM, To improve endurance, To improve balance, To improve safety with gait, To assume or resume ADL's, To reduce risk of recurrence, To improve safety Therapeutic Exercise to Include: Strength training, Balance training, Flexibilty training, Gait and locomotor training, Neuromotor development, Passive ROM, Active ROM For the Purpose of:: To decrease pain, To decrease swelling/inflammation, To increase ROM, To improve nutrient delivery to tissue, To increase oxygenation perfusion, To improve muscle performance and motor function, To increase tolerance to activity/condition/position, To improve performance and independence with ADL's, To decrease level of supervision to perform tasks, To improve ability of physical actions for home/community/work/leisure, To improve gait and locomotor functions, To improve health of tissue, To decrease soft tissue restriction, To increase flexibility/ROM, To improve endurance, To improve balance, To improve safety with gait, To improve safety, To improve health and function Functional Training to Include: Gait training For the Purpose of:: To improve gait and locomotor functions, To improve safety with gait Manual Therapy Techniques to Include: Mobilization, Passive ROM, Soft tissue mobilization For the Purpose of:: To decrease pain, To increase ROM, To improve nutrient delivery to tissue Thank you for the opportunity to evaluate your patient. For Medicare and Medicare HMO plans, please review the plan of care and approve it. It will need to be FAXED BACK to us at [phone] for Medicare purposes. For Medicare only, by signing this I certify the plan of care. Please let me know if there are questions or concerns regarding this plan of care. Physician Signature: Date:
--- NOTE | 2021-01-01 14:10 | HP.PTREVAL ---
Dr. Lawrence Fowler, DPM, It has been my pleasure to treat LYRIC PADRON over the last 12 visits for Nondisplaced Fx lateral malleolus left Fibula. Please see the progress note below for an update on the physical therapy plan of care! Subjective: Pt is still very cautious on steps more so going down than up. He in genral has issues with balance. He reports that just standing for any period of time he will wobble. He has not much trouble with walk and balance. He does tend to stumble on one foot. Objective/Function: Pt balance is improving but he struggles with L single leg balance and balance with gait and walking with head turns Plan Plan: ADD ambulation with head turns to increase confidence with balance. 3X/ week for 6 weeks for L ankle AROM, stretching strengthening, weightbearing strengthening and balance, gait training, L HIP AND KNEE STRENGTHENING with HEP Goals Goal 1:: I HEP Goal Time Frame: 4-6 Weeks Goal Progress: Goal Met Goal 2:: Increase L ankle strength by 1/2 muscle grade (at the time of the eval: L ankle MMT: 4-/5 DF, 4-/5 PF, IN/EV 4-/5) Goal Time Frame: 4-6 Weeks Goal 3:: Increase L hip and knee strength by 1/2 muscle grade (at the time of the eval: L hip MMT: ext 3-/5, hip abd 3+/5m hip flex 4-/5, knee flex 4-/5). Goal Time Frame: 4-6 Weeks Goal 4:: Increase balance by increaseing FGA by 4 points to decrease fall risk (at time of eval score was a 20) Goal Time Frame: 4-6 Weeks Goal 5:: Be able to walk without the cane 100 feet with no veering comfortable without LOB Goal Time Frame: 4-6 Weeks Anticipated Interventions Patient/Client Instruction: Educate patient on: Condition, Plan of Care For the Purpose of:: To decrease pain, To decrease swelling/inflammation, To increase ROM, To improve nutrient delivery to tissue, To improve muscle performance and motor function, To improve ability to perform ADL's, To increase tolerance to activity/condition/position, To improve performance and independence with ADL's, To decrease level of supervision to perform tasks, To improve ability of physical actions for home/community/work/leisure, To improve gait and locomotor functions, To improve health of tissue, To decrease soft tissue restriction, To increase flexibility/ROM, To improve endurance, To improve balance, To improve safety with gait, To assume or resume ADL's, To reduce risk of recurrence, To improve safety Therapeutic Exercise to Include: Strength training, Balance training, Flexibilty training, Gait and locomotor training, Neuromotor development, Passive ROM, Active ROM For the Purpose of:: To decrease pain, To decrease swelling/inflammation, To increase ROM, To improve nutrient delivery to tissue, To increase oxygenation perfusion, To improve muscle performance and motor function, To increase tolerance to activity/condition/position, To improve performance and independence with ADL's, To decrease level of supervision to perform tasks, To improve ability of physical actions for home/community/work/leisure, To improve gait and locomotor functions, To improve health of tissue, To decrease soft tissue restriction, To increase flexibility/ROM, To improve endurance, To improve balance, To improve safety with gait, To improve safety, To improve health and function Functional Training to Include: Gait training For the Purpose of:: To improve gait and locomotor functions, To improve safety with gait Manual Therapy Techniques to Include: Mobilization, Passive ROM, Soft tissue mobilization For the Purpose of:: To decrease pain, To increase ROM, To improve nutrient delivery to tissue Please do not hesitate to contact me at [phone] by phone or if you have questions or concerns regarding this new plan of care! Sincerely, Danya Morris, MPT
--- NOTE | 2021-01-23 11:22 | HP.PTDCSUM ---
It has been my pleasure to treat LYRIC PADRON referred by Dr. Lawrence Fowler, ZULEMA, with the diagnosis of Nondisplaced Fx lateral malleolus left Fibula for a total of 18 visit(s). Discharge Date: 01/23/21 Please see the following information for a summary of their discharge status. Subjective: pt biggest challenge is uneven ground. L ankle pain Pain Intensity (Out of 10): 0 % Improvement: 85 Objective/Function: LEFS score entered into the computer. Balance ex are a challenge for pt needing to hold ll bars to keep balance. Goal 1:: I HEP Goal Progress: Goal Met Goal 2:: Increase L ankle strength by 1/2 muscle grade (at the time of the eval: L ankle MMT: 4-/5 DF, 4-/5 PF, IN/EV 4-/5) Goal Progress: Goal Met Goal 3:: Increase L hip and knee strength by 1/2 muscle grade (at the time of the eval: L hip MMT: ext 3-/5, hip abd 3+/5m hip flex 4-/5, knee flex 4-/5). Goal Progress: Goal Met Goal 4:: Increase balance by increaseing FGA by 4 points to decrease fall risk (at time of eval score was a 20) Goal Progress: Goal Met Goal 5:: Be able to walk without the cane 100 feet with no veering comfortable without LOB Goal Progress: Goal Met Plan: One more appt with [facility] COORDINATOR. Pt was given LEFS to bring bad last time. DC PT after Tuesday appt. 3X/ week for 6 weeks for L ankle AROM, stretching strengthening, weightbearing strengthening and balance, gait training, L HIP AND KNEE STRENGTHENING with HEP Discharge Comments: DC PT If there are questions or concerns regarding this patient's physical therapy, please feel free to call me at [phone]. Thank you for the referral of this patient. Sincerely, Danya Morris, MPT
== END 2021-01-16 19:00 | disposition home or self-care (01) ==
LOC: PT 14:00
PROVIDERS: PCP Family Medicine; Referring Provider Podiatrist Foot & Ankle Surgery; Visit Provider Podiatrist Foot & Ankle Surgery
DX: S82.65XD Nondisplaced fracture of lateral malleolus of left fibula, subsequent encounter for closed fracture with routine healing (principal)
CPT/HCPCS: 97110; 97162

== ENCOUNTER 2022-06-10 15:00 | Outpatient (RCR) | payer MEDICARE, SELFPAY ==
--- NOTE | 2022-05-07 12:47 | HP.PTEVAL ---
Patient's Visit Information LYRIC PADRON is a 67 year old M referred to Physical Therapy by Dr. Geoffrey Conley MD with a diagnosis of ataxia. Date of Evaluation: 05/07/22 Physical Therapist: MAYO GutierrezT, OCS, CSCS - Visit Plan Frequency: 2x /Week Duration: 4 Weeks Plan: 2x/week for 4 weeks for. 1. Teach vestibular balance for HEP including foam, ec, dynamic bending, weight shift FW with step). 2. Teach general LE and postural strrength and progress to I home program with pics. Does not wish to join a gym. - Subjective i don't have sense of balance that I used to have. When he bends or adjusts other stuff, he tends to fall. Has fallen a couple times. Lasst one was a month ago adjusting a gait and lost balance. Then says he fell the other day and his memory is bad. He was in the barn on uneven ground in the stall and caught foot on mat.No spinning. No neuroapthy. No pain. Live with and a son. Lives in two story but he pives on one, Two steps to enter with no railing. Up and down steps without a problem right now. Not employed, retired from the [employer]. Spends day watching TV. 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 Horse knocked him over. Balance off ever since. Has also a history of B broken ankles the left one in 2020. Doctor wanted therapy now. No regular exercises. Basic ADLs are done I at home. - Objective Walks i into PT, flat affect but safe on firm flat surface. Trasnfers I without UE. Steps reciprocal without rail when asked. Slightly hunched over in posture and avoids arm swings. Short steps. coordination to reciprocal toetap is good, heel tap is tough. heel to sebastian is good. reflexes 2/3 patella and achilles. Sensation LE WNL to gross light touch. Strength LE 4/5 with some hip ext rotation weakness B at 3+. Flexiubility in LE is WNL - Balance/Special Test Scores Functional Gait Assessment Score: 26 % Disability: 13.3400 CATSIB Score (Max score 120 seconds): 100 Lower Extremity Functional Score: 41 - Goals Goal 1:: 28/30 FGA and 30 sec foam stance without LOB Goal Time Frame: 2-4 Weeks Goal 2:: I approp HEP to minimize future problems and improve safety Goal Time Frame: 2-4 Weeks Goal 3:: Patient and feel 50% better adn comfortable walking out in barn Goal Time Frame: 2-4 Weeks - Rehabilitation Potential Physical Therapy Diagnosis: imbalance multiple etiologies effecting activity. Rehabilitation Potential: Good - Anticipated Interventions Patient/Client Instruction: Educate patient on: Condition, Plan of Care For the Purpose of:: To improve muscle performance and motor function, To increase tolerance to activity/condition/position, To improve balance, To improve safety Therapeutic Exercise to Include: Strength training, Balance training For the Purpose of:: To improve muscle performance and motor function, To improve safety with gait, To improve safety Thank you for the opportunity to evaluate your patient. For Medicare and Medicare HMO plans, please review the plan of care and approve it. It will need to be FAXED BACK to us at [phone] for Medicare purposes. For Medicare only, by signing this I certify the plan of care. Please let me know if there are questions or concerns regarding this plan of care. Physician Signature: Date:
--- NOTE | 2022-06-10 15:48 | HP.PTDCSUM ---
It has been my pleasure to treat LYRIC PADRON referred by Dr. Geoffrey Conley MD, with the diagnosis of ataxia for a total of 9 visit(s). Discharge Date: 06/10/22 Please see the following information for a summary of their discharge status. Subjective: Getting better. I can do the exercises much easier. No stumbling or falls lately. Feels safer.Doing exercises at home that challenge him. To doctor in a month. adn him OK walking out in barn. Been feeding animals without issues. Wants to continue via HEP. % Improvement: 50 Objective/Function: LEFS +7,FGA is +2, [place] on foam ft easily today. Much improved confidence with gait. Doing well and willing to continue via HEP and possibly join for strength. Goal 1:: FGA and 30 sec foam stance without LOB Goal Progress: Goal Met Goal 2:: I approp HEP to minimize future problems and improve safety Goal Progress: Goal Met Goal 3:: Patient and feel 50% better adn comfortable walking out in barn Goal Progress: Goal Met Plan: d/c Discharge Comments: Pt to continue via HEP and consider joining [employer]. If there are questions or concerns regarding this patient's physical therapy, please feel free to call me at [phone]. Thank you for the referral of this patient. Sincerely, Erik Valles, DPT, OCS, CSCS Balance/Gait/Functional tests - Balance/Special Test Scores Functional Gait Assessment Score: 28 % Disability: 6.6700 CATSIB Score (Max score 120 seconds): 115 Lower Extremity Functional Score: 48
== END 2022-06-10 19:00 | disposition home or self-care (01) ==
LOC: PT 15:00
PROVIDERS: PCP Family Medicine; Referring Provider Family Medicine; Visit Provider Family Medicine
DX: R27.0 Ataxia, unspecified (principal); Z87.820 Personal history of traumatic brain injury
CPT/HCPCS: 97110; 97162; 97164

== ENCOUNTER 2022-08-19 15:30 | Outpatient (RCR) | payer MEDICARE, SELFPAY ==
--- NOTE | 2022-07-21 14:45 | HP.PTEVAL ---
Patient's Visit Information LYRIC PADRON is a 67 year old M referred to Physical Therapy by Dr. Geoffrey Conley MD with a diagnosis of DDD LUMBAR. Date of Evaluation: 07/21/22 Physical Therapist: Brown Sullivan, PT, Cert MDT, OCS - Visit Plan Frequency: 2x /Week Duration: 4 Weeks Plan: PT INTERVETIONS POSTURAL EX'S ,DLS ,LE STRENGTHENING -HIPS ,LUMBAR FLEXION AND MODALTIES PRN - Subjective This 67 y/o male presents to physical therapy with lumbar pain. Patient has had lumbar pain ~ 2 years which has been progressively worse.Patient was in accident ~ 2years where patient had head trauma unconscious .Patient located symmetrical lumbar pain. Seen DR had x-rays DDD. No MEDS. Aggravating factors standing ~ 15mins ,walking extended lifting. Alleviating rest sitting. Coughing/sneezing -. Bowel/bladder -. Denies paresthesia/tingling. Patient sleeping good at night. No abnormal night pain. No prior treatment for back. No recent falls. Patient goals to decrease back pain. Patient symptoms affects QOL and function. SOCIAL: . VOCATION: retired - Pain Bilateral Back Pain Intensity (Out of 10): 2 Pain Intensity Range: 10 - Objective POSTURE: mild forward posture. GAIT: reciprocal pattern. SYMMTRIES: align. NEURO: denies paresthesia/tingling ,reflexes 3/3 L4-5 ,L5-S1 3/3. FLEXABLILITY: hamstrings WFL. MMT: quads/hams 4/5 ,hip flexion peak force 16.7 right ,15.8 left ,ankle 5/5. LUMBAR ROM: flexion min/mod loss ,extension mod /severe loss ,side glides mod loss - Special Tests L/S Slump test left side: Negative L/S Slump test right side: Negative L/S Left Straight Leg Raise: Negative L/S Right Straight Leg Raise: Negative - Balance/Special Test Scores Oswestry Low Back Score: 20 - Goals Goal 1:: I with HEP Goal Time Frame: 4-6 Weeks Goal 2:: Patient improve posture for ADL 80% of the time Goal Time Frame: 4-6 Weeks Goal 3:: Patient to demonstrate 50% improvement with improved function with standing during ADL's. Goal Time Frame: 4-6 Weeks Goal 4:: Patient to improve lumbar ROM for function recovery to tie shoes Goal Time Frame: 4-6 Weeks Goal 5:: Patient to improve back oswestry score by 5 points to improve QOL and function. Goal Time Frame: 4-6 Weeks Goal 6:: Patient to improve MMT peak force of hip by 5 to improve gait - Rehabilitation Potential Physical Therapy Diagnosis: This patient has lumbar pain worse with positioning standing and motion testing better with sitting and worse with standing thus benefit from skilled PT Rehabilitation Potential: Good - Anticipated Interventions Patient/Client Instruction: Educate patient on: Condition, Plan of Care For the Purpose of:: To decrease pain, To increase ROM, To improve muscle performance and motor function, To increase tolerance to activity/condition/position, To improve ability of physical actions for home/community/work/leisure, To improve health of tissue, To decrease soft tissue restriction, To increase flexibility/ROM, To reduce risk of recurrence, To prevent re-injury Therapeutic Exercise to Include: Strength training, Endurance training, Postural training, Flexibilty training, Dynamic Lumbar Stabilization Comment: HIPS For the Purpose of:: To decrease pain, To increase ROM, To improve nutrient delivery to tissue, To increase oxygenation perfusion, To increase tolerance to activity/condition/position, To improve health of tissue, To decrease soft tissue restriction, To improve endurance, To improve balance, To reduce risk of recurrence, To improve tolerance to ADL's TENS: Yes IF ES: Yes Cryotherapy (ice pack, ice massage): Yes Thermo therapy (hot pack): Yes Ultrasound (thermal/non thermal): Yes For the Purpose of:: To decrease pain, To increase ROM, To improve nutrient delivery to tissue, To increase oxygenation perfusion, To improve health of tissue, To decrease soft tissue restriction Thank you for the opportunity to evaluate your patient. For Medicare and Medicare HMO plans, please review the plan of care and approve it. It will need to be FAXED BACK to us at [phone] for Medicare purposes. For Medicare only, by signing this I certify the plan of care. Please let me know if there are questions or concerns regarding this plan of care. Physician Signature: Date:
--- NOTE | 2022-08-19 16:02 | HP.PTDCSUM ---
It has been my pleasure to treat LYRIC PADRON referred by Dr. Geoffrey Conley MD, with the diagnosis of DDD LUMBAR for a total of 9 visit(s). Discharge Date: 08/19/22 Please see the following information for a summary of their discharge status. Subjective: Doing okay.. ready for d/c Bilateral Back Pain Intensity (Out of 10): 0 % Improvement: 30 Objective/Function: POSTURE: MILD FORWARD POSTURE. GAIT: RCEIPROCAL PATTERN MILD FORWARD POSTURE. MMT: QUADS/HAMS 4/5 ,HIP FLEXION 4/5. LUMBAR ROM: FLEXION MIN LOSS ,EXTENSION MIN LOSS Goal 1:: I with HEP Goal 2:: Patient improve posture for ADL 80% of the time Goal Progress: Goal Met Goal 3:: Patient to demonstrate 50% improvement with improved function with standing during ADL's. Goal Progress: Goal Met Goal 4:: Patient to improve lumbar ROM for function recovery to tie shoes Goal Progress: Goal Met Goal 5:: Patient to improve back oswestry score by 5 points to improve QOL and function. Goal Progress: Goal Met Goal 6:: Patient to improve MMT peak force of hip by 5 to improve gait Goal Progress: Goal Met Plan: D/C TO HEP AND GYM Discharge Comments: HEP/GTM If there are questions or concerns regarding this patient's physical therapy, please feel free to call me at [phone]. Thank you for the referral of this patient. Sincerely, Brown Sullivan, PT, Cert MDT, OCS Balance/Gait/Functional tests - Balance/Special Test Scores Oswestry Low Back Score: 5
== END 2022-08-19 19:00 | disposition home or self-care (01) ==
LOC: PT 15:30
PROVIDERS: PCP Family Medicine; Referring Provider Family Medicine; Visit Provider Family Medicine
DX: M51.36 Other intervertebral disc degeneration, lumbar region (principal)
CPT/HCPCS: 97110; 97162; 97530

== ENCOUNTER 2023-08-09 13:30 | Outpatient (RCR) | payer MEDICARE, SELFPAY ==
--- NOTE | 2023-07-06 14:28 | HP.PTEVAL_ITS ---
Patient's Visit Information Visit Information Visit Information: LYRIC PADRON is a 68 year old M referred to Physical Therapy by ANIKA HERNANDEZ with a diagnosis of SPINAL STENOSIS ,WEAKNESS LOWER EXTERMITIES. Date of Evaluation: 07/06/23 Physical Therapist: Brown Sullivan, PT, Cert MDT, OCS Visit Plan Frequency: 2x /Week Duration: 4 Weeks Plan: PT INTERVTIONS DLS ,POSTURAL EX'S ,LE FLEXABLITY ,BLE STRENGTHNEING ,FUNCTIONAL STRENGTHENIN AND BALANCE TRAINING Subjective Subjective: This 68 y/o male presents to physical therapy with lumbar stenosis. Patient has had lumbar symptoms with pain but currently weakness in his legs. Patient tried PT ,then referred performance improvement specialist ,had MRI showed mild stenosis. Prescribed meloxicam. No pain management. Patient has been diagnosed with dementia and sees neurologist . Patient has pain in back or legs just c/o weakness. Patient denies paresthesia/tingling. Aggravating factors walking/standing 10-15 mins ,difficulty with lifting and bending due to weakness. Patient also has been falling DR recommended family using cane and walker. Patient has assessed diagnostics with neuropathy and PVD. Patient alleviating factors rest. Bowel/bladder -. Coughing/sneezing-. Patient sleeping okay at night. Patient condition affects QOL and function. Patient goal to increase strength. SOCIAL: VOCATION: retired Objective Objective: POSTURE: mild forward posture calcaneal valgus GAIT: reciprocal pattern decrease heel strike right > left slow ruben with unsteady pattern NEURO: denies paresthesia/tingling, reflexes L3-4,L4-5,L5 -S1 1/3 PLAPTION: unremarkable LUMBAR ROM: flexion mon/mod loss ,extension mod loss ,side glides mod loss FLEXABLITY: min loss hamstrings HIP AROM: IR 25 degrees ,ER 40 MMT: quads/hams 4/5 ,hip flexion right 24.7 ,left 30.7 ,hip abd right 13.8 ,left 20.7 Special Tests L/S Slump test left side: Negative L/S Slump test right side: Negative L/S Left Straight Leg Raise: Negative L/S Right Straight Leg Raise: Negative Lumbar Standing: Flexion - Mechanical Response: No effect Lumbar Standing: Flexion - Symptoms During Testing: No effect Lumbar Standing: Flexion - Symptoms After Testing: No effect Lumbar Standing: Extension - Mechanical Response: No effect Lumbar Standing: Extension - Symptoms During Testing: No effect Lumbar Standing: Extension - Symptoms After Testing: No effect Lumbar Standing: Right Side Glides - Mechanical Response: No effect Lumbar Standing: Right Side [place] - Symptoms During Testing: No effect Lumbar Standing: Right Side [place] - Symptoms After Testing: No effect Lumbar Standing: Left Side [place] - Mechanical Response: No effect Lumbar Standing: Left Side [place] - Symptoms During Testing: No effect Lumbar Standing: Left Side [place] - Symptoms After Testing: No effect Balance/Special Test Scores Functional Gait Assessment Score: 15 % Disability: 50.0000 CATSIB Score (Max score 120 seconds): 100 Oswestry Low Back Score: 26 Goals Goal 1:: Patient to be I with HEP for lumbar spine Goal Time Frame: 4-6 Weeks Goal 2:: Patient to demonstrate 50% improvement with improved function and gait Goal Time Frame: 4-6 Weeks Goal 3:: Patient to increase peak force HIP BY 5-10# to improve gait and function Goal Time Frame: 4-6 Weeks Goal 4:: Patient to improve lumbar ROM for function of recovery for ADLS Goal Time Frame: 4-6 Weeks Goal 5:: Patient improve back oswestry score by 5 points or> to improve QOL and function Goal Time Frame: 4-6 Weeks Goal 6:: Patient to improve functional gait assessment score by 5 points to decrease risk of falls Rehabilitation Potential Physical Therapy Diagnosis: Patient has lower extremity weakness impairs walking /standing and impaired balance thus benfit from skilled PT Rehabilitation Potential: Good Anticipated Interventions Patient/Client Instruction: Educate patient on: Condition and Plan of Care For the Purpose of:: To decrease pain, To increase ROM, To improve muscle pe rformance and motor function, To increase tolerance to activity/condition/position, To improve ability of physical actions for home/community/work/leisure, To improve health of tissue, To decrease soft tissue restriction, To increase flexibility/ROM, To improve endurance, To improve balance, To prevent re-injury and To improve tolerance to ADL's Therapeutic Exercise to Include: Strength training, Endurance training, Body mechanics, Postural training, Flexibilty training and Dynamic Lumbar Stabilization For the Purpose of:: To decrease pain, To increase ROM, To improve muscle performance and motor function, To increase tolerance to activity/condition/position, To improve ability of physical actions for home/community/work/leisure, To improve health of tissue, To decrease soft tissue restriction, To increase flexibility/ROM, To improve endurance, To improve balance, To reduce risk of recurrence and To prevent re-injury Text: Thank you for the opportunity to evaluate your patient. For Medicare and Medicare HMO plans, please review the plan of care and approve it. It will need to be FAXED BACK to us at [phone] for Medicare purposes. For Medicare only, by signing this I certify the plan of care. Please let me know if there are questions or concerns regarding this plan of care. Physician Signature: Date:
--- NOTE | 2023-08-09 13:48 | HP.PTDCSUM ---
Discharge Summary D/C summary: It has been my pleasure to treat LYRIC PADRON referred by ANIKA HERNANDEZ, with the diagnosis of SPINAL STENOSIS ,WEAKNESS LOWER EXTERMITIES for a total of 10 visit(s). Discharge Date: 08/09/23 Please see the following information for a summary of their discharge status. Subjective Subjective: Patient states doing well . ready for d/c Walking better Overall Improvement % Improvement: 60 Objective Objective/Function: mild forward posture calcaneal valgus GAIT: reciprocal pattern decrease heel strike right > left slow ruben with unsteady pattern NEURO: denies paresthesia/tingling, reflexes L3-4,L4-5,L5 -S1 1/3 LUMBAR ROM: flexion mon/mod loss ,extension mod loss ,side glides mod loss FLEXABLITY: min loss hamstrings HIP AROM: IR 25 degrees ,ER 40 MMT: quads/hams 4/5 ,hip flexion right 30.7 ,left 39.7 ,hip abd right 18.8 ,left 206.7 Goals Goal 1:: Patient to be I with HEP for lumbar spine Goal Progress: Goal Met Goal 2:: Patient to demonstrate 50% improvement with improved function and gait Goal Progress: Goal Met Goal 3:: Patient to increase peak force HIP BY 5-10# to improve gait and function Goal Progress: Goal Met Goal 4:: Patient to improve lumbar ROM for function of recovery for ADLS Goal Progress: Goal Met Goal 5:: Patient improve back oswestry score by 5 points or> to improve QOL and function Goal Progress: Goal Met Goal 6:: Patient to improve functional gait assessment score by 5 points to decrease risk of falls Plan Plan: D/C TO HEP D/C Information Discharge Comments: HEP d/c sentence: If there are questions or concerns regarding this patient's physical therapy, please feel free to call me at [phone]. Thank you for the referral of this patient. Sincerely, Brown Sullivan, PT, Cert MDT, OCS Balance/Gait/Functional tests Balance/Special Test Scores Functional Gait Assessment Score: 29 % Disability: 3.3400 CATSIB Score (Max score 120 seconds): 100 Oswestry Low Back Score: 6 Improvement % Improvement: 60
== END 2023-08-09 19:00 | disposition home or self-care (01) ==
LOC: PT 13:30
PROVIDERS: PCP Family Medicine
DX: M48.061 Spinal stenosis, lumbar region without neurogenic claudication (principal); R29.898 Other symptoms and signs involving the musculoskeletal system
CPT/HCPCS: 97110; 97162; 97530

== ENCOUNTER 2023-08-11 00:10 | Emergency (ER) | payer MEDICARE, SELFPAY ==
[2023-08-11] VITALS (8 sets, daily range): BP systolic 114–136; BP diastolic 75–89; PULSE 95–104; RESP 12–21; TEMP 36.9; O2SAT 94–98; BMI 26.2
--- NOTE | 2023-08-11 00:42 | CT_ITS ---
We are attempting to reach an attending provider to discuss findings. An addendum with communication details will be sent when the communication is complete. EXAM: CT HEAD WITHOUT INTRAVENOUS CONTRAST CLINICAL INDICATION: trauma TECHNIQUE: Multiple axial images were obtained of the head without intravenous contrast. This CT exam was performed using one or more of the following dose reduction techniques: automated exposure control, adjustment of the mA and/or kV according to patient size, and/or use of iterative reconstruction technique. RADIATION DOSE: CTDIvol = 44.99 mGy, DLP = 846.73 mGy-cm COMPARISON: No relevant prior studies available. FINDINGS: BRAIN AND EXTRA-AXIAL SPACES: Trace subarachnoid hemorrhage in a right parietal sulcus. Moderate generalized atrophy. Moderate low density bilaterally in the deep white matter. No evidence of acute infarct. No intracranial mass or mass effect. There is preservation of the snyder/white matter interface. Posterior fossa structures are unremarkable. No hydrocephalus. Basal cisterns are patent. BONES/JOINTS: Unremarkable. No discrete lytic or blastic abnormalities. SINUSES: Mild bilateral ethmoid mucosal disease. MASTOID AIR CELLS: Unremarkable. Clear. ORBITS: Visualized globes, extraocular muscles, optic nerves and retrobulbar fat appear unremarkable. CT/Brain/Head without Contrast IMPRESSION: 1. Trace subarachnoid hemorrhage in a right parietal sulcus. This is likely posttraumatic. 2. Moderate generalized atrophy. Moderate low density bilaterally in the deep white matter. This likely represents chronic small vessel ischemic changes in the deep white matter. 3. Mild bilateral ethmoid mucosal disease. Electronically Signed: Paulino Ma MD at 1:24 EDT ,
--- NOTE | 2023-08-11 00:42 | CT_ITS ---
EXAM: CT CERVICAL SPINE WITHOUT INTRAVENOUS CONTRAST CLINICAL INDICATION: neck trauma TECHNIQUE: Helically acquired images were obtained of the cervical spine without intravenous contrast. 2D reformatted images were reviewed. This CT exam was performed using one or more of the following dose reduction techniques: automated exposure control, adjustment of the mA and/or kV according to patient size, and/or use of iterative reconstruction technique. RADIATION DOSE: CTDIvol = 20.99 mGy, DLP = 470.60 mGy-cm COMPARISON: 07/24/2018. FINDINGS: VERTEBRAE: Mild multilevel bilateral cervical vertebral facet arthropathy. No fracture. No traumatic subluxation. No discrete lytic or blastic abnormality. Normal alignment. Normal craniocervical junction and cervicothoracic junction. DISCS/SPINAL CANAL/NEURAL FORAMINA: Moderate multilevel cervical degenerative disc disease. No critical stenosis. SOFT TISSUES: Unremarkable. No prevertebral soft tissue swelling. LYMPH NODES: Unremarkable. No cervical adenopathy. LUNG APICES: Unremarkable as visualized. Clear. CT/Spine Cervical without Contras IMPRESSION: Mild to moderate cervical degenerative changes. No acute fractures or subluxations. Electronically Signed: Paulino Ma MD at 1:25 EDT ,
--- NOTE | 2023-08-11 01:34 | EDS_ITS ---
HPI History of Present Illness Chief Complaint: Fall Informant: patient and spouse/S.O. Narrative Narrative: Patient presents after a fall at home. states that she was in bed and heard the patient fall on the stairs. He has early dementia and does not remem nya what happened. She states he was dazed when she got to him. He is otherwise been acting his normal self since the fall. He complains of some scalp pain and has a abrasion to the right posterior parietal scalp. Patient does have a history of a subdural hemorrhage in 2018. He is not on any anticoagulants. He has no neck or back pain. He did get up and ambulate several steps to the cot for EMS. [facility] Medical History Balance disorder Brain bleed Dementia Hyperlipidemia Home Medications Minocycline 50 mg PO BID atb 07/24/18 [History Last Taken 07/24/18 08:00 50 mg] pravastatin 20 mg tablet 40 mg PO QHS cholesterol 07/24/18 [History Last Taken 07/23/18 22:00 40 mg] terazosin 1 mg capsule 5 mg PO QHS Prostate 07/24/18 [History Last Taken 07/24/18 22:00 1 mg] ibuprofen 400 mg tablet 400 mg PO Q6H 08/11/23 [History Last Taken Unknown] meloxicam 15 mg tablet 15 mg PO DAILY 08/11/23 [History Last Taken Unknown] memantine 5 mg tablet 5 mg PO BID 08/11/23 [History Last Taken Unknown] Allergy/AdvReac Type Severity Reaction Status Date / Time Penicillins Allergy Upset Verified 08/11/23 00:14 Stomach Social History Smoking Status: Current every day smoker tobacco type: cigarettes ROS ROS ED Constitutional Constitutional ED: Denies chills or fever(s) Eyes Eyes: Denies change in vision ENT ENT ED: Denies rhinorrhea or sore throat Cardiovascular Cardiovascular: Denies chest pain or palpitations Respiratory/Chest Respiratory/Chest: Denies cough or dyspnea Gastrointestinal Gastrointestinal: Denies abdominal pain, nausea or vomiting Musculoskeletal Musculoskeletal: Denies back pain or extremity pain Integumentary Denies Abrasions or rash Neurologic Neurologic: Reports headache(s); Denies weakness Psychiatric Psychiatric: Denies anxiety or depression Allergic/Immunologic Allergic/Immunologic ED: Denies lip swelling or urticaria EXAM Physical Exam Const Vital Signs: 08/11/23 00:11 08/11/23 00:50 Temperature 98.4 F Temperature Source Temporal Pulse Rate 104 H Respiratory Rate 18 Respiratory Effort Normal Respiratory Depth Normal Respiratory Pattern Normal Blood Pressure 119/85 H Blood Pressure Mean 96 Pulse Ox 98 Oxygen Delivery Method Room Air Room Air Positive well nourished HEENT HEENT Narrative: Scalp abrasion to the right posterior parietal scalp. No active bleeding at this time. Dried blood noted in his hair. Eyes EOMs intact bilaterally Neck Neck Narrative: No C-spine tenderness. Chest Wall inspection of chest normal and palpation of chest normal Resp normal respiratory effort and clear to auscultation bilaterally Cardio regular rhythm Rate: regular rate GI non-tender Palpation: soft Back/Spine normal to inspection Extremity normal to inspection Neuro moves all extremities Neuro Narrative: Alert and oriented with baseline mild dementia. Skin Skin Narrative: Scalp abrasion as noted above. MDM MDM MDM Narrative Medical decision making narrative: Patient sent for CT scan of the head and C-spine to evaluate for bleed, fracture, edema. Radiography Diagnostic Testing: Clinical Impression(s) from Imaging Studies Brain CT 08/11/23 00:42 IMPRESSION: 1. Trace subarachnoid hemorrhage in a right parietal sulcus. This is likely posttraumatic. 2. Moderate generalized atrophy. Moderate low density bilaterally in the deep white matter. This likely represents chronic small vessel ischemic changes in the deep white matter. 3. Mild bilateral ethmoid mucosal disease. Electronically Signed: Paulino Ma MD at 1:24 EDT , ADDENDUM: 08/11/23 0140 IMPRESSION: 1. Trace subarachnoid hemorrhage in a right parietal sulcus. This is likely posttraumatic. 2. Moderate generalized atrophy. Moderate low density bilaterally in the deep white matter. This likely represents chronic small vessel ischemic changes in the deep white matter. 3. Mild bilateral ethmoid mucosal disease. N.B. : The above Results were Read Back by Paulino Ma MD to Tahira Jenkins MD, and understanding confirmed on 08/11/2023 01:33:43 (ET). Electronically Signed: Paulino Ma MD at 1:24 EDT , Cervical Spine CT 08/11/23 00:42 IMPRESSION: Mild to moderate cervical degenerative changes. No acute fractures or subluxations. Electronically Signed: Paulino Ma MD at 1:25 EDT , Treatment and Re-Evaluation Narrative: CT brain reveals evidence of trace subarachnoid hemorrhage and a right parietal sulcus. This is likely posttraumatic. Generalized atrophy is noted. CT of the C-spine reveals chronic changes with no fracture. Test results discussed with patient and at bedside. They would prefer transfer to [facility] and I have spoken with her trauma line and ER. Patient will be transferred via local squad. He remains hemodynamically stable at this time. IV will be established and lab work will be obtained. Portable chest x-ray also ordered. Discharge Plan Triage Chief Complaint: Fall ED Provider: Tahira Jenkins Dx/Rx/DC Orders Clinical Impression: Subarachnoid hemorrhage following injury, Fall Prescriptions: No Action terazosin 1 MG capsule 5 mg PO QHS pravastatin 20 MG tablet 40 mg PO QHS Minocycline tablet 50 mg PO BID memantine 5 mg tablet 5 mg PO BID Patient Comments: Take 1 tablet by mouth twice daily. meloxicam 15 mg tablet 15 mg PO DAILY Patient Comments: Take 1 tablet by mouth once daily. With food. ibuprofen 400 mg tablet 400 mg PO Q6H Patient Comments: take 1 tablet (400 mg) by oral route 4 times per day with food Primary Care Provider: Geoffrey Conley Referrals: Geoffrey Conley MD [Primary Care Provider] - Disposition Disposition: Acute Care Hospital Discharge Location: [facility]
[2023-08-11 01:50] LABS: Absolute Lymphocyte Count 2.21 X10^3/uL (0.83-4.51); Absolute Neutrophil Count 10.5 X10^3/uL (2.0-7.7); Basophil# 0.06 X10^3/uL; Basophil% 0.4 % (0-1); Eosinophil# 0.26 X10^3/uL; Eosinophils% 1.8 % (0-5); Hematocrit 42.6 % (40-54); Hemoglobin 14.3 g/dL (13.0-16.5); Lymphocyte # 2.21 X10^3/ul (0.83-4.51); Lymphocyte % 15.7 % (19-41); Mean Corp Hgb Conc 33.6 g/dL (32-36); Mean Corpuscular Hgb 30.4 pg (27.0-32.0); Mean Corpuscular Volume 90.6 fL (80-94); Mean Platelet Vol. 9.2 fl (6.2-12.0); Monocyte# 1.01 X10^3/uL; Monocyte% 7.2 % (0-10); NRBC Flagged by Analyzer 0 % (0-5); Neutrophil # 10.47 X10^3/uL (2.7-7.7); Neutrophil % 74.5 % (47-70); Platelet Count 223 K/mm3 (150-450); RBC Distribution Width CV 12.5 % (11.6-14.6); RBC Distribution Width SD 41.9 fl (35.1-43.9); White Blood Count 14.1 K/mm3 (4.4-11.0)
--- NOTE | 2023-08-11 01:55 | RAD_ITS ---
EXAM: XR CHEST, 1 VIEW CLINICAL INDICATION: trauma TECHNIQUE: Frontal view of the chest. COMPARISON: No relevant prior studies available. FINDINGS: LUNGS AND PLEURAL SPACES: Unremarkable. No consolidation or edema. No pneumothorax. No effusion. HEART: Unremarkable. Cardiac silhouette not enlarged. MEDIASTINUM: Central airways and mediastinal contour are unremarkable. BONES/JOINTS: Unremarkable. SOFT TISSUES: Unremarkable. RAD/Chest 1 View (Portable) IMPRESSION: No radiographic evidence of acute cardiopulmonary disease. Electronically Signed: Paulino Ma MD at 2:07 EDT ,
[2023-08-11 02:03] LABS: Anion Gap 6 (5-15); BUN 18 mg/dL (7-18); BUN/Creat Ratio 18.4 RATIO (10-20); Calcium,Total 8.5 mg/dL (8.5-10.1); Chloride 109 mmol/L (98-107); Creatinine, Serum 0.98 mg/dL (0.70-1.30); EST Glomerular Filtration Rate 81 mL/min (>60); Est Glom Filt Rate - Afr Amer 98 mL/min (>60); Estimated Creatinine Clearance 61.88 ml/min; Glucose 130 mg/dL (74-106); International Normalized Ratio 0.9; Partial Thromboplast Time 25.2 Seconds (24.1-36.2); Potassium 3.8 mmol/L (3.5-5.1); Prothrombin Time (Protime)PT. 12.1 SECONDS (11.7-14.9); Sodium Level 141 mmol/L (136-145)
[2023-08-11] MEDS: Pantoprazole Sodium 40 MG in 0.9% Normal Saline (100mL MB+) 100 ML 330 MG IV (02:07)
--- NOTE | 2023-08-11 02:33 | ED.RN ---
report called to [facility] er, nurse raine
== END 2023-08-11 05:29 | disposition short-term general hospital (02) ==
PROVIDERS: Emergency Provider Emergency Medicine; PCP Family Medicine; Visit Provider Emergency Medicine
DX: S06.6XAA Traumatic subarachnoid hemorrhage with loss of consciousness status unknown, initial encounter (principal); F03.90 Unspecified dementia, unspecified severity, without behavioral disturbance, psychotic disturbance, mood disturbance, and anxiety; F17.210 Nicotine dependence, cigarettes, uncomplicated; E78.5 Hyperlipidemia, unspecified; W10.9XXA Fall (on) (from) unspecified stairs and steps, initial encounter; Z79.899 Other long term (current) drug therapy
CPT/HCPCS: 70450; 71045; 72125; 80048; 85025; 85610; 85730; 96365; 99285; J7030; A4216

== ENCOUNTER 2023-11-16 13:00 | Outpatient (RCR) | payer MEDICARE, SELFPAY ==
--- NOTE | 2023-10-20 12:31 | HP.PTEVAL_ITS ---
Patient's Visit Information Visit Information Visit Information: LYRIC PADRON is a 68 year old M referred to Physical Therapy by KWADWO SRINIVASAN with a diagnosis of SAH. Date of Evaluation: 10/20/23 Physical Therapist: Erik Valles, MAYOT, OCS, CSCS Visit Plan Frequency: 3x /Week Duration: 4-6 Weeks Plan: 3x/week for 4-6 weeks for 1. LE strength and balance progressing to HEP 2. gym based postural, core adn LE strength to I silver sneakers. 3. Gait training for balance get patient more active and work to I Subjective Subjective: I need physical therapy as I had a fall down a few steps 08/10. Ended up with brain bleed ad hospital 2 days and then went home. Went back to hospital 09/[address] scan and MRI of neck and had SDH that was 7 mmand is pushing brain off of center. Not having many symptoms, no neurologis symptoms according to patient and . Spinal cord is pnched in neck which may contribute to leg weakness. Feels weak in both legs R>L. Has been weak and declining for a year or so. He fell over the dog. no nubness or tingling in legs. But feels weak. Does not do much during the day, feel imbalanced since the fall and R leg weakness. Spends day watching TV and did that prior to fall. Used to come in on silver sneakers prior to fall. Stopped due to brain bleed. Now neuro wants him to get back to PT and exercise. Fell in house and uses cane but was not during those times. Bending over seems to be unsteady. Sleep is OK Retired. No hobbies. Still limited driving Has a few steps at home which are not a problem. Has wh walker at home but not using it. Objective Objective: Walks with cane R and short R step length dragging that foot at times but mod I. Can walk and take FGA withouit AD today. Wh walker smooths out gait pattern and equalizes step length well. transfers bed and chair I. Steps with one rail and cane mod I. Slow to answer adn does much of talking. oriented to place and person and day today. reflexes: some clonus in R > L achilles, patella 2/3. Sensation to gross light touch UE and LE WNL, strength hips 4- and knees 4 and ankles 4+ B without asymmetries. Some core weakness noted with seated hip flexion testing. coordination to reciprocal toe and heel tap is slow to start but good once started. hands are good. heel to sebastian is good. Minor tightness HS at -30 90/90 test otherwise WFL. Balance/Special Test Scores Functional Gait Assessment Score: 26 % Disability: 13.3400 CATSIB Score (Max score 120 seconds): 120 Lower Extremity Functional Score: 21 Goals Goal 1:: FGA 28/30 and no gait deviations in ambulation with LRD. Goal Time Frame: 4-6 Weeks Goal 2:: I appropr HEP to limit future problems, home legs and gym legs, arms, core, balance. Goal Time Frame: 4-6 Weeks Goal 3:: Pt and feel mobility/activity 75% improved Goal Time Frame: 4-6 Weeks Goal 4:: [id number] Goal Time Frame: 4-6 Weeks Rehabilitation Potential Physical Therapy Diagnosis: weakness, sedentarism and imbalance after SAH Rehabilitation Potential: Good Anticipated Interventions Patient/Client Instruction: Educate patient on: Condition and Plan of Care For the Purpose of:: To improve nutrient delivery to tissue, To improve muscle performance and motor function, To increase tolerance to activity/condition/position, To improve ability of physical actions for home/community/work/leisure and To improve gait and locomotor functions Therapeutic Exercise to Include: Strength training, Balance training, Postural training, Flexibilty training and Gait and locomotor training For the Purpose of:: To improve nutrient delivery to tissue, To improve muscle performance and motor function, To increase tolerance to activity/condition/position, To improve ability of physical actions for home/community/work/leisure, To improve gait and locomotor functions and To improve safety with gait Text: Thank you for the opportunity to evaluate your patient. For Medicare and Medicare HMO plans, please review the plan of care and approve it. It will need to be FAXED BACK to us at [phone] for Medicare purposes. For Medicare only, by signing this I certify the plan of care. Please let me know if there are questions or concerns regarding this plan of care. Physician Signature: Date:
--- NOTE | 2023-11-18 13:23 | HP.PTDCSUM ---
Discharge Summary D/C summary: It has been my pleasure to treat LYRIC PADRON referred by KWADWO SRINIVASAN, with the diagnosis of SAH for a total of 13 visit(s). Discharge Date: 11/18/23 Please see the following information for a summary of their discharge status. Subjective Subjective: Doing well and ready to be done. Better than a month ago. Moving easier. Using cane all the time. Used it prior to incident. Activities at home are getting better. Walking in general is improving but still needs cane. No falls. Sleep is OK. Activiities normal. HEP: at home. Will continue with gym exercises. Overall Improvement % Improvement: 50 Objective Objective/Function: FGA is Ok,LEFS is improving. walking is short R step length intermittently with cane and I with and without cane today. trasnfers I. Wants to cotninue on his own vs more therapy. Goals Goal 1:: FGA 28/30 and no gait deviations in ambulation with LRD. Goal Progress: Not Progressing Goal 2:: I appropr HEP to limit future problems, home legs and gym legs, arms, core, balance. Goal Progress: Goal Met Goal 3:: Pt and feel mobility/activity 75% improved Goal Progress: 50% Goal 4:: [id number] Goal Progress: Progressing Plan Plan: d/c to HEP D/C Information Discharge Comments: Will continue via HEP d/c sentence: If there are questions or concerns regarding this patient's physical therapy, please feel free to call me at [phone]. Thank you for the referral of this patient. Sincerely, Erik Valles, DPT, OCS, CSCS Balance/Gait/Functional tests Balance/Special Test Scores Functional Gait Assessment Score: 26 % Disability: 13.3400 CATSIB Score (Max score 120 seconds): 120 Lower Extremity Functional Score: 47 Improvement % Improvement: 50
== END 2023-11-16 19:00 | disposition home or self-care (01) ==
LOC: PT 13:00
PROVIDERS: PCP Family Medicine
DX: I60.9 Nontraumatic subarachnoid hemorrhage, unspecified (principal)
CPT/HCPCS: 97110; 97162

== ENCOUNTER 2024-08-13 17:15 | Emergency (ER) | payer MEDICARE, SELFPAY ==
[2024-08-13 17:15] VITALS: BP 108/75; PULSE 111; RESP 18; TEMP 36.7; O2SAT 97
--- NOTE | 2024-08-13 17:28 | CT_ITS ---
INDICATION: FALL, HEAD INJURY EXAMINATION: CT BRAIN - CT Head or Brain W/O Contrast Injection TECHNIQUE: Multiple axial images were obtained of the head without intravenous contrast. A radiation dose optimization technique was used for this scan. IV Contrast dosage and agent: None. COMPARISON: 03/12/2020 FINDINGS: BRAIN PARENCHYMA: No intra- or extra-axial hemorrhage. No evidence of acute infarct. No intracranial mass or mass effect. There is preservation of the snyder/white matter interface. Posterior fossa structures are unremarkable. Volume loss with low attenuation of the periventricular white matter typical of chronic small vessel disease. CSF SPACES: Appropriate for age. No hydrocephalus. Basal cisterns are patent. CALVARIUM, SKULL BASE, PARANASAL SINUSES AND MASTOID AIR CELLS: No significant paranasal sinus disease. No acute fracture. CT/Brain/Head without Contrast IMPRESSION: Volume loss with chronic white matter changes. No acute intracranial findings. Electronically Signed: Evan Spring MD at 18:44 EDT ,
--- NOTE | 2024-08-13 17:28 | CT_ITS ---
INDICATION: Trauma, fall, injury EXAMINATION: CT CERVICAL SPINE - CT Spine Cervical W/O Contrast Injection TECHNIQUE: Helically acquired images were obtained of the cervical spine. 2D reformatted images were reviewed. A radiation dose optimization technique was used for this scan. IV Contrast dosage and agent: None. COMPARISON: 07/24/2018 FINDINGS: VERTEBRAE: No acute fracture of the cervical spine. Anatomic alignment. DISCS and SPINAL CANAL: Degenerative discogenic changes. No critical stenosis. NECK SOFT TISSUES: No prevertebral soft tissue swelling. LUNG APICES: No acute pulmonary findings. CT/Spine Cervical without Contras IMPRESSION: Degenerative changes. No acute fracture of the cervical spine. Electronically Signed: Evan Spring MD at 18:38 EDT ,
[2024-08-13 18:15] VITALS: BP 107/78; O2SAT 96
[2024-08-13 18:33] VITALS: O2SAT 96
[2024-08-13 19:01] VITALS: BP 137/91; PULSE 84; RESP 16; TEMP 36.6; O2SAT 96
--- NOTE | 2024-08-13 19:01 | ED.VIS.FALL ---
HPI HPI - Fall History of Present Illness Chief Complaint: Fall Informant: patient and spouse/S.O. Narrative Narrative: 69-year-old male according to has poor balance and went out onto the porch to smoke and lost his footing, states he tripped and fell hitting the back of his head on the concrete porch. There was no loss of consciousness, he denies any nausea, vomiting, vision changes, or other injuries. He takes no anticoagulants but the states he had a head bleed in the past and that led to her being concerned here and bring in for evaluation. The patient states he does not have a headache and he feels fine. He shows me a knot on his head from where he hit today. [facility] Medical History Balance disorder Hyperlipidemia Dementia Brain bleed Home Medications ?Medication ?Instructions ?Recorded ?Last Taken ?Type Minocycline 50 mg PO BID atb 07/24/18 07/24/18 08:00 History 50 mg pravastatin 20 mg tablet 40 mg PO QHS cholesterol 07/24/18 07/23/18 22:00 History 40 mg terazosin 1 mg capsule 5 mg PO QHS Prostate 07/24/18 07/24/18 22:00 History 1 mg ibuprofen 400 mg tablet 400 mg PO Q6H 08/11/23 Unknown History meloxicam 15 mg tablet 15 mg PO DAILY 08/11/23 Unknown History memantine 5 mg tablet 5 mg PO BID 08/11/23 Unknown History Allergy/AdvReac Type Severity Reaction Status Date / Time Penicillins Allergy Upset Verified 08/13/24 17:15 Stomach Social History Smoking Status: Current every day smoker tobacco type: cigarettes ROS ROS ED Constitutional Constitutional ED: Denies chills or fever(s) Eyes Eyes: Denies change in vision or diplopia ENT ENT ED: Denies ear pain, epistaxis, facial pain or rhinorrhea Cardiovascular Cardiovascular: Denies chest pain Respiratory/Chest Respiratory/Chest: Denies dyspnea Gastrointestinal Gastrointestinal: Denies abdominal pain, nausea or vomiting Musculoskeletal Musculoskeletal: Denies back pain, extremity pain or neck pain Integumentary Denies laceration Neurologic Neurologic: Denies headache(s) or weakness EXAM Physical Exam Const Vital Signs: 08/13/24 17:15 08/13/24 18:15 08/13/24 18:33 Temperature 98.1 F Temperature Source Oral Pulse Rate 111 H Respiratory Rate 18 Respiratory Effort Normal Non-Labored Respiratory Depth Normal Respiratory Pattern Normal Blood Pressure 108/75 107/78 Blood Pressure Mean 86 87 Pulse Ox 97 96 96 Oxygen Delivery Method Room Air Room Air Positive well nourished and well developed General Appearance ED: well developed and NAD HEENT Reports TM's clear and nasal mucous membranes and turbinates normal trauma and hematoma Hematoma Size: 3-4 cm, right high parietal scalp. No crepitance or depression. Hematoma Face and Sinus: Negative for facial tenderness Tympanic Membrane ED: Yes TM's clear Eyes PERRL and EOMs intact bilaterally Visual Acuity: other Other Details: no entrapment or pain with extraocular movements Neck full ROM and supple General: Negative for tenderness Chest Wall inspection of chest normal and palpation of chest normal Chest: symmetrical chest wall rise; Negative for crepitus or tenderness Resp normal respiratory effort GI normal to inspection, nondistended, normoactive bowel sounds, soft to palpation and non-tender Back/Spine normal ROM Cervical Spine: Negative for cervical spine tenderness Thoracic Spine / Upper Back: Negative for thoracic spinal tenderness Lumbar Spine / Lower Back: Negative for lumbar spinal tenderness Extremity normal to inspection and full ROM General Extremety ED: Negative for tenderness Neuro CN's II-XII intact bilaterally, moves all extremities, no focal motor deficits and no sensory deficits noted [place] Coma Scale: document GCS findings Spontaneous Obeys Commands Oriented 15 Sensorium / Orientation: awake and alert Psych mental status grossly normal and thought process normal Skin no wounds Lesions: no lesions Rashes: no rashes MDM MDM MDM Narrative Medical decision making narrative: CT of the head and cervical spine were obtained. On my interpretation they are both without signs of acute fracture or intracranial hemorrhage. Radiology in agreement. Patient declined ice pack, Tylenol. Stable for discharge home with spouse. Radiography Diagnostic Testing: Clinical Impression(s) from Imaging Studies Brain CT 08/13/24 17:28 IMPRESSION: Volume loss with chronic white matter changes. No acute intracranial findings. Electronically Signed: Evan Spring MD at 18:44 EDT Reading Location ID and State: [facility] / [place] Tel , Service support , Cervical Spine CT 08/13/24 17:28 IMPRESSION: Degenerative changes. No acute fracture of the cervical spine. Electronically Signed: Evan Spring MD at 18:38 EDT , Discharge Plan Triage Chief Complaint: Fall ED Provider: Macario Givens Dx/Rx/DC Orders Clinical Impression: Traumatic injury of head with hematoma of scalp, Fall from slip, trip, or stumble Instructions: ED Head Injury (Adult) Prescriptions: No Action terazosin 1 MG capsule 5 mg PO QHS pravastatin 20 MG tablet 40 mg PO QHS Minocycline tablet 50 mg PO BID memantine 5 mg tablet 5 mg PO BID Patient Comments: Take 1 tablet by mouth twice daily. meloxicam 15 mg tablet 15 mg PO DAILY Patient Comments: Take 1 tablet by mouth once daily. With food. ibuprofen 400 mg tablet 400 mg PO Q6H Patient Comments: take 1 tablet (400 mg) by oral route 4 times per day with food Primary Care Provider: Geoffrey Conley Referrals: Geoffrey Conley MD [Primary Care Provider] - As Needed Print Language: Mongolian Disposition Disposition: Home, Self Care
--- OUTSIDE RECORDS SUMMARY | 2024-08-13 20:10 | XMS RPT_ITS | CCD ---
Author Organization [facility] Care Team Providers Care Storeroom Attendant Name Role Phone Bryan MIRANDA, Geoffrey Anderson Primary Care Provider Bryan MIRANDA, Geoffrey Anderson Primary Care Provider [phone] Tran GOYAL, Luis Unavailable Steffi MIRANDA, PhD, Kwadwo Unavailable Bryan MIRANDA, Geoffrey Anderson Primary Care Provider MELANIE CHUNG Referring Unavailable BRYAN, GEOFFREY Anderson Primary Care Unavailable JOSUÉ RODRIGUEZ Admitting Unavailable JOSUÉ RODRIGUEZ Attending Unavailable IRAJ BETHEA Consulting Unavailable GEOFFREY ADAMS Primary Care Unavailable ILENE ABREU Attending Unavailable BRYAN, GEOFFREY Anderson Primary Care Unavailable BRYAN, GEOFFREY Anderson Primary Care Unavailable KWADWO SRINIVASAN Attending Unavailable KWADWO SRINIVASAN Referring Unavailable BRYAN, GEOFFREY Anderson Primary Care Unavailable JAYDA ACE Referring Unavailable KWADWO SRINIVASAN Attending Unavailable MELANIE CHUNG Referring Unavailable BRYAN, GEOFFREY Anderson Primary Care Unavailable BRYAN, GEOFFREY Anderson Primary Care Unavailable MELISSA PEDRO Attending UnavailIRAJ Andrade Referring Unavailable BRYAN, GEOFFREY Anderson Primary Care Unavailable MELISSA PEDRO Admitting UnavailMELISSA Bateman Attending Unavailpiotr e GEOFFREY ADAMS Primary Care Unavailable KWADWO SRINIVASAN Attending Unavailable BRYAN, GEOFFREY Anderson Primary Care Unavailable MELANIE CHUNG Referring Unavailable BRYAN, GEOFFREY Anderson Primary Care Unavailable BRYAN, GEOFFREY Primary Care Unavailable JAYDA ACE Attending Unavailable BRYAN, GEOFFREY Primary Care Unavailable GEOFFREY ADAMS Attending Unavailable JAYDA ACE Attending Unavailable BRYAN, GEOFFREY Primary Care Unavailable JAYDA ACE Attending Unavailable BRYANGEOFFREY Primary Care Unavailable JAYDA ACE Attending Unavailable JAYDA ACE Referring Unavailable [facility], GEOFFREY Primary Care Unavailable JOSEFA JACOBS Attending Unavailable [facility], GEOFFREY Primary Care Unavailable JOSEFA JACOBS Referring Unavailable [facility], GEOFFREY Primary Care [facility] Referring [facility]available [facility], GEOFFREY Primary Care [facility] Attending Unavailable [facility], GEOFFREY Primary Care Unavailable Medications Current Medications Medication Drug Class(es) Dates Sig (Normalized) Sig (Original) acetaminophen 325 mg oral tablet (20 sources) Start: 05-14-2013 take 2 tablets by mouth every six hours as needed acetaminophen (TYLENOL) 325 mg tablet Take 2 tablets by mouth every 6 hours as needed for Pain. 0 05/14/2013 Active Comment on above: Take 2 tablets by mo [facility] every 6 hours as needed for Pain. ibuprofen 400 mg oral tablet (20 sources) Nonsteroidal Anti-inflammatory Drug Start: 08-11-2023 ibuprofen (MOTRIN) 400 mg tablet Take by mouth. 08/11/2023 Active Comment on above: Take by mouth. meloxicam 15 mg oral tablet (20 sources) Nonsteroidal Anti-inflammatory Drug Start: 04-20-2023 End: 07-01-2023 take 1 tablet by mouth once daily at mealtime meloxicam (MOBIC) 15 mg tablet Indications: DDD (degenerative disc disease), lumbar , Spinal stenosis of lumbar region, unspecified whether neurogenic claudication present Take 1 tablet by mouth once daily. With food. 30 tablet 1 07/01/2023 Active Comment on above: [facility] With [facility]. memantine hydrochloride 5 mg oral tablet (20 sources) N-roxzkd-B-asparta te Receptor Antagonist Start: 08-24-2023 End: 08-07-2024 take 1 tablet by mouth twice daily memantine (NAMENDA) 5 mg tablet Indications: Dementia without behavioral disturbance (HCC) Take 1 tablet by mouth two times a day. 60 tablet 5 08/07/2024 Active Start: 05-23-2023 End: 08-21-2023 take 1 tablet by mouth twice daily memantine (NAMENDA) 5 mg tablet Take 1 tablet by mouth twice daily. 60 tablet 2 05/23/2023 08/21/2023 Active Start: 01-18-2023 End: 07-03-2023 take 1 tablet by mouth twice daily memantine (NAMENDA) 5 mg tablet Take 1 tablet by mouth twice daily. 60 tablet 2 01/18/2023 04/18/2023 Start: 09-27-2022 End: 12-26-2022 take 1 tablet by mouth twice daily memantine (NAMENDA) 5 mg tablet Take 1 tablet by mouth twice daily. 60 tablet 2 09/27/2022 12/26/2022 Active Start: 06-18-2022 End: 09-16-2022 take 1 tablet by mouth twice daily memantine (NAMENDA) 5 mg tablet Take 1 tablet by mouth twice daily. 60 tablet 2 06/18/2022 09/16/2022 Active Comment on above: Take 1 tablet by joel th twice daily. Take 1 tablet by joel th two times a day. metroNIDAZOLE 0.0075 mg/mg topical gel (13 sources) Nitroimidazole Antimicrobial Start: 12-22-2022 End: 01-21-2023 metroNIDAZOLE (METROGEL) 0.75 % Topical Gel Apply to affected area twice daily. APPLY TO AFFECTED AREAS of ROSACEA TWICE DAILy 45 g 5 12/22/2022 01/21/2023 Active Start: 03-08-2022 End: 10-15-2022 metroNIDAZOLE (METROGEL) 0.7 5 % Topical Gel APPLY TO AFFECTED AREAS of ROSACEA TWICE DAILy 45 g 1 10/15/2022 Active Start: 04-10-2021 End: 10-07-2021 metroNIDAZOLE (METROGEL) 0.7 5 % Topical Gel Indications: Rosacea, acne Apply 1 application to affected area twice daily. APPLY TO AFFECTED AREA(S) ROSACEA BID (TWICE DAILY). 180 g 3 04/10/2021 10/07/2021 Comment on above: APPLY TO AFFECTED AR EAS of ROSACEA TWICE DAILy Apply to affected ar ea twice daily. APPLY TO AFFECTED AREAS of ROSACEA TWICE DAILy minocycline 50 mg oral capsule (20 sources) Tetracycline-class Drug Start: 03-01-2023 take 1 capsule by mouth twice daily minocycline (MINOCIN, DYNACIN) 50 mg capsule Indications: Rosacea, acne Take 1 capsule by mouth twice daily. 180 capsule 3 03/01/2023 Active Start: 04-10-2021 End: 07-14-2022 take 1 capsule by mouth twice daily minocycline (MINOCIN, DYNACIN) 50 mg capsule Indications: Rosacea, acne Take 1 capsule by mouth twice daily. 180 capsule 3 04/29/2022 Active Comment on above: Take 1 capsule by [facility] twice daily. pravastatin sodium 40 mg oral tablet (20 sources) HMG-CoA Reductase Inhibitor Start: 04-29-20 End: 05-09-20 take 1 tablet by mouth once daily pravastatin (PRAVACHOL) 40 mg tablet Indications: Pure hypercholesterolemia Take 1 tablet by mouth once daily. 90 tablet 3 05/09/2024 Active Start: 04-10-2021 End: 01-27-2022 take 1 tablet by mouth once daily pravastatin (PRAVACHOL) 40 mg tablet Indications: Pure hypercholesterolemia Take 1 tablet by mouth once daily. 90 tablet 0 01/27/2022 Active Comment on above: Take 1 tablet by [facility] once daily. terazosin 5 mg oral capsule (20 sources) alpha-Adrenergic Che Start: 08-28-2021 End: 07-31-2024 take 1 capsule by mouth once daily at bedtime terazosin (HYTRIN) 5 mg capsule Indications: BPH with obstruction/lower urinary tract symptoms Take 1 capsule by mouth daily at bedtime. 90 capsule 3 07/31/2024 Active Start: 04-10-2021 End: 07-21-2021 take 1 capsule by mouth once daily terazosin (HYTRIN) 5 mg capsule Indications: Benign non-nodular prostatic hyperplasia with lower urinary tract symptoms Take 1 capsule by mouth once daily. 90 capsule 2 04/10/2021 07/21/2021 Discontinued Comment on above: Take 1 capsule by [facility] daily at bedtime. Completed/Discontinued Medications Medication Drug Class(es) Dates Sig (Normalized) Sig (Original) penicillin v potassium 500 mg oral tablet (2 sources) Start: 11-09-2022 take 1 tablet by mouth four times daily penicillin V potassium (V-CILLIN, VEETIDS) 500 mg tablet Take 500 mg by mouth four times daily. 0 11/09/2022 Active Comment on above: Take 500 mg by mouth four times daily. Problems Active Problems Problem Classification Problem Date Documented Date Episodic/Chronic Abdominal pain (1 source) Flank pain; Translations: [Unspecified abdominal pain] Episodic Acute cerebrovascular disease (20 sources) Hemorrhage into subarachnoid space of neuraxis; Translations: [Nontraumatic subarachnoid hemorrhage, unspecified] Onset: 08-11-2023 Resolved: 07-02-2024 08-12-2023 Chronic Delirium, dementia, and amnestic and other cognitive disorders (6 sources) Dementia; Translations: [Unspecified dementia without behavioral disturbance] Onset: 08-07-2024 Chronic Diabetes mellitus without complication (10 sources) Prediabetes; Translations: [Prediabetes] Onset: 07-02-2024 07-01-2023 Episodic Disorders of lipid metabolism (20 sources) Pure hypercholesterolemia; Translations: [Pure hypercholesterolemia, unspecified] Onset: 02-26-2013 09-05-2015 Chronic Genitourinary symptoms and ill-defined conditions (1 source) Retention of urine; Translations: [Retention of urine, unspecified] 07-26-2023 Episodic Hyperplasia of prostate (20 sources) Benign prostatic hyperplasia; Translations: [Benign prostatic hyperplasia with lower urinary tract symptoms] Onset: 01-01-2008 09-05-2015 Chronic Intracranial injury (20 sources) History of traumatic brain injury; Translations: [Personal history of traumatic brain injury] Onset: 06-15-2022 Episodic Other connective tissue disease (2 sources) Pain in finger of right hand; Translations: [Pain in right finger(s)] Episodic Other connective tissue disease (4 sources) Paraparesis; Translations: [Other symptoms and signs involving the musculoskeletal system] Episodic Other connective tissue disease (2 sources) Other symptoms and signs involving the musculoskeletal system; Translations: [Other musculoskeletal symptoms referable to limbs] Episodic Other connective tissue disease (4 sources) Recurrent falls ; Translations: [Repeated falls] 08-24-2023 Episodic Other connective tissue disease (1 source) Repeated falls; Translations: [Frequent falls] Onset: 08-07-2024 Episodic Other diseases of bladder and urethra (20 sources) Bladder neck obstruction; Translations: [Bladder-neck obstruction] Onset: 01-01-2008 01-01-2008 Chronic Other diseases of kidney and ureters (3 sources) Kidney lesion; Translations: [Disorder of kidney and ureter, unspecified] Episodic Other diseases of kidney and ureters (1 source) Other obstructive and reflux uropathy; Translations: [BPH with obstruction/lower urinary tract symptoms] Onset: 07-27-2024 Episodic Other hereditary and degenerative nervous system conditions (20 sources) Impaired cognition; Translations: [Mild cognitive impairment, so stated] Onset: 06-24-2022 Chronic Other inflammatory condition of skin (20 sources) Rosacea; Translations: [Rosacea, unspecified] Onset: 02-09-2010 02-09-2010 Chronic Other injuries and conditions due to external causes (2 sources) Injury of finger of right hand; Translations: [Unspecified injury of right wrist, hand and finger(s), initial encounter] Episodic Other lower respiratory disease (1 source) Multiple nodules of lung; Translations: [Other nonspecific abnormal finding of lung field] 03-11-2023 Episodic Other nervous system disorders (15 sources) Cervical myelopathy; Translations: [Disease of spinal cord, unspecified] Onset: 12-30-2023 12-30-2023 Chronic Other nervous system disorders (8 sources) Impairment of balance; Translations: [Other abnormalities of gait and mobility] Episodic Other nervous system disorders (1 source) Other abnormalities of gait and mobility; Translations: [Balance problem] Onset: 08-07-2024 Episodic Other non-traumatic joint disorders (2 sources) Pain of left wrist; Translations: [Pain in left wrist] Episodic Other nutritional; endocrine; and metabolic disorders (2 sources) Weight loss; Translations: [Abnormal weight loss] Episodic Other screening for suspected conditions (not mental disorders or infectious disease) (3 sources) Patient encounter status; Translations: [Encounter for screening for malignant neoplasm of colon] 12-30-2023 Episodic Residual codes; unclassified (5 sources) Amnesia; Translations: [Other amnesia] Episodic Residual codes; unclassified (1 source) Other amnesia; Translations: [Memory loss] Onset: 08-07-2024 Episodic Spondylosis; intervertebral disc disorders; other back problems (4 sources) Degeneration of lumbar intervertebral disc; Translations: [Other intervertebral disc degeneration, lumbar region] Chronic Spondylosis; intervertebral disc disorders; other back problems (12 sources) Spinal stenosis of lumbar region; Translations: [Spinal stenosis, lumbar region without neurogenic claudication] Onset: 09-12-2023 Episodic Sprains and strains (1 source) Other sprain of left middle finger, initial encounter; Translations: [Other sprains and strains of hand] Episodic Unclassified (1 source) OT EVAL Onset: 06-20-2024 Unclassified (1 source) Traumatic subarachnoid hemorrhage with unknown loss of consciousness status, initial encounter ([facility]); Translations: [Traumatic subarachnoid hemorrhage with unknown loss of consciousness status, initial encounter ([facility])] Onset: 08-11-2023 Past or Other Problems Problem Classification Problem Date Documented Da te Episodic/Chronic E Codes: Fall (1 source) Unspecified fall, initial encounter; Translations: [Fall, initial encounter] Onset: 09-19-2023 Episodic Fracture of lower limb (14 sources) Closed fracture of distal fibula ; Translations: [Other fracture of upper and lower end of unspecified fibula, initial encounter for closed fracture] Onset: 12-22-2022 Resolved: 12-22-2022 12-22-2022 Episodic Other circulatory disease (15 sources) History of subdural hematoma; Translations: [Personal history of other diseases of the circulatory system] Onset: 12-30-2023 12-30-2023 Episodic Other circulatory disease (15 sources) History of subarachnoid hemorrhage; Translations: [Personal history of other diseases of the circulatory system] Onset: 12-30-2023 12-30-2023 Episodic Other circulatory disease (1 source) Personal history of other diseases of the circulatory system; Translations: [History of subarachnoid hemorrhage] Onset: 09-19-2023 Episodic Other injuries and conditions due to external causes (20 sources) Closed injury of head; Translations: [Unspecified injury of head, initial encounter] Onset: 12-22-2022 Resolved: 12-30-2023 12-22-2022 Episodic Other nervous system disorders (20 sources) Ataxia; Translations: [Ataxia, unspecified] Onset: 06-15-2022 12-22-2022 Episodic Results Test Name Value Interpretation Reference Range Facility [facility] 08-07-2024 CNOV Office Visit (BHARATHI ) LYRIC PADRON ([id number]) 1955 M Date Time Provider Department 08/07/24 11:30 AM QUEENER, JAYDA NEMOWS During your visit today, we recorded the following information about you: Pulse Blood pressure Weight 83/minute 123/81 67.9 kg Jayda Ace PA-C 08/07/2024 12:21 PM Signed ESTABLISHED PATIENT VISIT Last visit: 04/24/24 ASSESSMENT/PLAN: 1. Subdural hematoma (HCC) - ICD9: 432.1, ICD10: S06.5XAA (primary diagnosis) Resolved, follow-up with neurosurgery. 2. Dementia without behavioral disturbance (HCC) - ICD9: 294.20, ICD10: F03.90 Patient presents with his today for follow-up for dementia. Doing well on Namenda 5 mg twice daily, did have some decrease in MoCA today with 10/10, previous was . No significant subjective change based off of patient and family report. However, patient's is very concerned about his driving, patient was told to have occupational therapy evaluation at last appointment but deferred this and has been sober and driving on his own. Patient's messaged on [employer] and expressed a deep concern for his driving ability she does not feel he is safe. Discussed at length today with patient and family my concerns for his driving and that he should not resume driving again until he has an occupational therapy evaluation. Patient agrees. Discussed possibly escalating to the BMV should his family's concerns be present. Discussed increasing Namenda but patient deferring at this time. Previously deferring any further evaluation with neuropsychological testing. Encouraged conservative therapy including physical activity as patient is very sedentary, increasing water intake. Patient did lose a few pounds, but still healthy BMI, will continue to monitor. No new symptoms that would warrant additional workup at this time. 3. Frequent falls - ICD9: V15.88, ICD10: R29.6 4. Balance problem - ICD9: 781.99, ICD10: R26.89 5. Cervical stenosis of spinal canal - ICD9: 723.0, ICD10: M48.02 Patient did have 1 fall since last appointment, reporting some occasional unsteadiness on his feet. Patient with shuffling gait on exam. Deferred cervical stenosis surgery through neurosurgery, encouraged follow-up for continued monitoring. Discussed signs and symptoms that would warrant emergent evaluation emergency department, patient and family agree and understand. Patient and family agreeable to treatment plan of care at this time, questions were answered. Patient to follow-up in 3 months or sooner should any symptoms change or worsen. Jayda Ace PA-C CHIEF COMPLAINT: follow up HISTORY OF PRESENT ILLNESS: Lyric Padron is a 69 year old male, BMI 24.93 kg/m2 with a PMH significant for Head injury 2007, MCI, DDD. Last seen on 04/24/24 for subdural hematoma, memory loss, dementia. noting some worsening in memory. Driving eval and was told to stop. On namenda 5mg bid. MoCA was 10/14, down from previous. Deferred increasing meds, deferring neuropsych testing. Following with neurosurgery for cervical stenosis. Patient presents with his today for follow-up appointment. Notes that memory has been stable, no new concerns with this. No mood changes, sleeping well, no wandering at night, no confusion. Primary concern today is frequent falls. Notes that since last appointment has had 5-6 falls, more inside and outside. Falls in many different ways, once he stood up from the toilet using the assistive device, but once he started walking he fell down. Other times, his falls are due to using things around the house to stabilize himself, notes that sometimes he will use a chair with wheels and this is not of a stable causing him to fall. Does have 2 walkers at home but does not like to use them. Will occasionally uses cane but not a lot of support with this. Likely will also fall as he is going to sit down, notes that he tends to lean a bit forward when he walks so when he goes to sit down he falls forward. No significant injuries with any of these falls, but is very concerned. Also notes that he is unable to walk for longer distances that he was before. Can no longer go to [employer] and walk around the store, is concerned that he is more weaker in his legs as well Weight has been stable. Activity is poor, primarily sits and watches TV all day, not many brain activities throughout the day as well. Did complete occupational therapy evaluation and is no longer driving. REVIEW OF SYSTEMS GENERAL:No weight loss, malaise or fevers. HEENT:Negative for frequent or significant headaches, No changes in hearing or vision, no nose bleeds or other nasal problems NECK:Negative for lumps, goiter, pain and significant neck swelling RESPIRATORY: Negative for cough, wheezing or shortness of breath. CARDIOVASCULAR: Negative for chest pain, leg swelling or (more content not included)... Normal [facility] CNOVon 07-31-2024 CNOV Office Visit (UROLWS ) LYRIC PADRON ([id number]) 1955 M Date Time Provider Department 07/31/24 1:00 PM JOSEFA JACOBS UROLWS During your visit today, we recorded the following information about you: Temperature Pulse Blood pressure Weight 97.6 degrees 92/minute 110/78 68.9 kg Remi RuthGEORGIA quintana 07/31/2024 1:57 PM Signed Verified name and date of . CC Post Void Residual HPI: Lyric Padron is a 69 year old male. The patient is here now for an appointment with MANJIT Montgomery MT, PA-COV. Procedure: Explained procedure to patient and verbalizes understanding. Performed a PVR. Patient went to bathroom at 1100 and is unable to urinate at this time. . Results of scan: >186 mL The patient tolerated the procedure well. Plan: Appointment with Josefa Goldman PA-C 07/31/2024 1:57 PM Signed [facility] ESTABLISHED PATIENT CLINIC NOTE Some elements copied from his previous note, which have been updated where appropriate, and all reflect current medical decision making from date of this visit. NAME: Lyric Padron CHIEF COMPLAINT: BPH HISTORY OF PRESENT ILLNESS: Lyric Padron is a 69 year old male established patient following up for BPH with urine retention s/p TURP 2020 The patient reports no new concerns and feels well PVR - 186 ml LUTS: DYSURIA: no URGENCY: No FREQUENCY:5 per day NOCTURIA: 1 per night STRAINING TO VOID: No EMPTIES COMPLETELY: Yes UTI: No GROSS HEMATURIA: no UA DIPSTICK POSITIVE ONLY: no Other symptoms: LABS: Hematocrit (%) Date Value 07/04/2024 45.7 09/19/2023 45.3 08/12/2023 41.5 08/11/2023 41.7 07/14/2021 49.2 05/30/2014 45.2 PSA (ng/mL) Date Value 07/27/2024 1.31 PSA Screening (ng/mL) Date Value 03/01/2023 1.07 05/27/2014 1.27 04/11/2012 1.38 No results found for: TESTOST PSA (ng/mL) Date Value 07/27/2024 1.31 PSA Screening (ng/mL) Date Value 03/01/2023 1.07 05/27/2014 1.27 04/11/2012 1.38 Creatinine Date Value Ref Range Status 07/04/2024 0.78 0.73 - 1.22 mg/dL Final 09/19/2023 0.77 0.73 - 1.22 mg/dL Final 08/12/2023 0.84 0.73 - 1.22 mg/dL Final 08/11/2023 0.88 0.73 - 1.22 mg/dL Final MEDICATIONS: pravastatin (PRAVACHOL) 40 mg tablet Take 1 tablet by mouth once daily. memantine (NAMENDA) 5 mg tablet Take 1 tablet by mouth two times a day. meloxicam (MOBIC) 15 mg tablet Take 1 tablet by mouth once daily. With food. minocycline (MINOCIN, DYNACIN) 50 mg capsule Take 1 capsule by mouth twice daily. acetaminophen (TYLENOL) 325 mg tablet Take 2 tablets by mouth every 6 hours as needed for Pain. terazosin (HYTRIN) 5 mg capsule Take 1 capsule by mouth daily at bedtime. ibuprofen (MOTRIN) 400 mg tablet Take by mouth. (Patient not taking: Reported on 07/31/2024) PAST MEDICAL HISTORY: PAST MEDICAL HISTORY Diagnosis Date Arthritis BPH with obstruction/lower urinary tract symptoms Renal lesion 07/26/2023 Rosacea Subarachnoid hemorrhage (HCC) 08/11/2023 REVIEW OF SYSTEMS: GENERAL: No fever, chills, weight loss, or fatigue. All other systems reviewed and are negative PHYSICAL EXAMINATION: Blood pressure 110/78, pulse 92, temperature 36.4 ?C (97.6 ?F), temperature source Temporal, weight 68.9 kg (152 lb), SpO2 99%. GENERAL: WNL nutrition, no deformities, healthy appearing PROBLEM LIST REVIEW: Yes LABS: Results for orders placed or performed in visit on 07/27/24 PSA/PROSTSPECAG DIAG Result Value Ref Range PSA 1.31 <2.60 ng/mL PROCEDURES: PVR: 186 ml IMAGING: IMPRESSION/PLAN: 68 year old male with 1. BPH with obstruction/lower urinary tract symptoms - ICD9: 600.01, 599.69, ICD10: N40.1, N13.8 > Renal Scan was 186 ml > Refilled Hytrin > 1 year Appt w/ MANJIT Sullivan MT, PA-C with PSA prior MANJIT Montgomery MT, PA-C Allergies As of Date: 07/31/2024 (No Known Allergies) Date Reviewed: 07/31/2024 Reviewed by: Ruth Khalil LPN - Fully Assessed Reason for Visit: Follow Up [171] Benign Prostatic Hypertrophy [1144] Primary Visit Diagnosis:BPH with obstruction/lower urinary tract symptoms [N40.1, N13.8] Order(s):POST VOID RESIDUAL [[id number]] Order #: [id number] terazosin (HYTRIN) 5 mg capsuleTake 1 capsule by mouth daily at bedtime.Disp: 90 capsuleRfl: 3 PROSTATE-SPECIFIC ANTIGEN DIAGNOSTIC [SQPSA] Order #: [id number] FUTURE Prescriptions as of 07/31/2024 - terazosin (HYTRIN) 5 mg capsule Take 1 capsule by mouth daily at bedtime. - pravastatin (PRAVACHOL) 40 mg tablet Take 1 tablet by mouth once daily. - memantine (NAMENDA) 5 mg tablet Take 1 tablet by mouth two times a day. - ibuprofen (MOTRIN) 400 mg tablet Take by mouth. - meloxicam (MOBIC) 15 mg tablet Take 1 tablet by mouth once daily. With food. - minocycline (MINOCIN, DYNACIN) 50 mg (more content not included)... Normal [facility] UA DIP, URINE (POC)on 2023 BILIRUBIN UA (POCT) Negative Negative [facility] CLARITY UA (POCT) Clear [facility] COLOR UA (POCT) Dark yellow [facility] GLUCOSE UA (POCT) Negative Negative mg/dL [facility] Hemoglobin Ql (U) Negative Negative [facility] [place] Interpretation and review of laboratory results Abnormal [facility] KETONE UA (POCT) Trace Negative mg/dL [facility] LEUKOCYTES UA (POCT) Negative Negative [facility] NITRITE UA (POCT) Negative Negative [facility] PH UA (POCT) 6.0 4.5 - 8.0 [facility] Protein Ql (U) Trace Abnormal Negative mg/dL [facility] SPECIFIC GRAVITY UA (POCT) 1.025 1.005 - 1.030 [facility] UROBILINOGEN UA (POCT) 0.2 Normal E.U./dL [facility] Location:[facility], [address] [facility], [place], [place], [id number] [place] [address] POINT OF CARE [facility] Prostate specific Ag [Mass/Vol] 1.31 ng/mL Normal <2.60 [facility] Comment on above: Order Comment: Speci men Type: BLOOD SPECIMENOrdering Facility: [facility] Address: [address] [place] [address] Result Comment: Bert dawkins PSA test methodology used is the Electrochemiluminescence Immunoassay by [employer]. Total PSA values by differing methodologies cannot be interchanged. Performed By: #### 2 857-1 ####[facility] LABCLIA [id number] [place] [address] [place] 07-13-2024 OLIVIER Telephone (NEAGCLM) LYRIC PADRON ([id number]) 1955 [place] Date Time Provider Department 07/13/24 KWADWO SRINIVASAN During your visit today, we recorded the following information about you: Brandin Kebede RN 07/13/2024 1:02 PM Signed Called patients to see if he ever presented to the ED for evaluation. Noted they have not. Noted continued weakness, and loss of bladder. Discussed again that we recommended he present to the ED for evaluation. She noted she would speak with him. 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 - memantine (NAMENDA) 5 mg tablet Take 1 tablet by mouth two times a day. - ibuprofen (MOTRIN) 400 mg tablet Take by mouth. - terazosin (HYTRIN) 5 mg capsule Take 1 capsule by mouth daily at bedtime. - meloxicam (MOBIC) 15 mg tablet Take 1 tablet by mouth once daily. With food. - minocycline (MINOCIN, DYNACIN) 50 mg capsule Take 1 capsule by mouth twice daily. - acetaminophen (TYLENOL) 325 mg tablet Take 2 tablets by mouth every 6 hours as needed for Pain. Problem List As Of Date 07/13/2024 Noted Resolved Benign non-nodular prostatic hyperplasia with l*01/01/2008 BLADDER NECK OBSTRUCTION [N32.0] 01/01/2008 Rosacea, Acne [L71.9] 02/09/2010 Pure hypercholesterolemia [E78.00] 02/26/2013 S/P TURP [Z90.79] 10/20/2021 Mild cognitive impairment [G31.84] 06/24/2022 Ataxia, unspecified [R27.0] 06/15/2022 Closed fracture of distal end of fibula [S82.83*12/22/2022 12/22/2022 Closed head injury [S09.90XA] 12/22/2022 12/30/2023 Personal history of traumatic brain injury [Z87*06/15/2022 Subarachnoid hemorrhage (HCC) [I60.9] 08/11/2023 07/02/2024 Subdural hematoma (HCC) [S06.5XAA] 09/19/2023 12/30/2023 History of subdural hematoma [Z86.79] 12/30/2023 History of subarachnoid hemorrhage [Z86.79] 12/30/2023 Cervical myelopathy (HCC) [G95.9] 12/30/2023 Prediabetes [R73.03] 07/02/2024 Encounter Status:Closed by BRANDIN KEBEDE on 07/13/24 Normal [facility] CBC W Auto Differential pane l (Bld)on 07-04-2024 Basophils (Bld) [#/Vol] 0.07 10*3/uL Normal <0.11 [facility] Comment on above: Order Comment: Speci men Type: BLOOD SPECIMENOrdering Facility: [facility] Address: [address] [place] [address] Performed By: #### 5 7021-8 ####[facility] LABCLIA [id number] [place] [address] [place] Basophils/100 WBC (Bld) 0.7 % Normal [facility] Comment on above: Order Comment: Speci men Type: BLOOD SPECIMENOrdering Facility: [facility] Address: [address] [place] [address] Performed By: #### 5 7021-8 ####[facility] LABCLIA [id number] [place] [address] [place] Differential cell count method Nom (Bld) Auto Normal [facility] Comment on above: Order Comment: Speci men Type: BLOOD SPECIMENOrdering Facility: [facility] Address: [address] [place] [address] Performed By: #### 5 7021-8 ####[facility] LABCLIA [id number] [place] [address] [place] Eosinophils (Bld) [#/Vol] 0.15 10*3/uL Normal <0.46 [facility] Comment on above: Order Comment: Speci men Type: BLOOD SPECIMENOrdering Facility: [facility] Address: [address] [place] [address] Performed By: #### 5 7021-8 ####[facility] LABCLIA [id number] [place] [address] [place] Eosinophils/100 WBC (Bld) 1.5 % Normal [facility] Comment on above: Order Comment: Speci men Type: BLOOD SPECIMENOrdering Facility: [facility] Address: [address] [place] [address] Performed By: #### 5 7021-8 ####[facility] LABCLIA [id number] [place] [address] [place] Erythrocyte distribution width (RBC) [Ratio] 13.4 % Normal 11.5-15.0 [facility] Comment on above: Order Comment: Speci men Type: BLOOD SPECIMENOrdering Facility: [facility] Address: [address] [place] [address] Performed By: #### 5 7021-8 ####[facility] LABCLIA [id number] [place] [address] [place] Hematocrit (Bld) [Volume fraction] 45.7 % Normal 39.0-51.0 [facility] Comment on above: Order Comment: Speci men Type: BLOOD SPECIMENOrdering Facility: [facility] Address: [address] [place] [address] Performed By: #### 5 7021-8 ####[facility] LABCLIA [id number] [place] [address] [place] Hemoglobin (Bld) [Mass/Vol] 15.3 g/dL Normal 13.0-17.0 [facility] Comment on above: Order Comment: Speci men Type: BLOOD SPECIMENOrdering Facility: [facility] Address: [address] [place] [address] Performed By: #### 5 7021-8 ####[facility] LABCLIA [id number] [place] [address] [place] Immature granulocytes (Bld) [#/Vol] 0.03 10*3/uL Normal <0.10 [facility] Comment on above: Order Comment: Speci men Type: BLOOD SPECIMENOrdering Facility: [facility] Address: [address] [place] [address] Performed By: #### 5 7021-8 ####[facility] LABCLIA [id number] [place] [address] [place] Immature granulocytes/100 WBC (Bld) 0.3 % Normal [facility] Comment on above: Order Comment: Speci men Type: BLOOD SPECIMENOrdering Facility: [facility] Address: [address] [place] [address] Performed By: #### 5 7021-8 ####[facility] LABCLIA [id number] [place] [address] [place] Lymphocytes (Bld) [#/Vol] 2.92 10*3/uL Normal 1.00-4.00 [facility] Comment on above: Order Comment: Speci men Type: BLOOD SPECIMENOrdering Facility: [facility] Address: [address] [place] [address] Performed By: #### 5 7021-8 ####[facility] LABCLIA [id number] [place] [address] [place] Lymphocytes/100 WBC (Bld) 28.6 % Normal [facility] Comment on above: Order Comment: Speci men Type: BLOOD SPECIMENOrdering Facility: [facility] Address: [address] [place] [address] Performed By: #### 5 7021-8 ####[facility] LABCLIA [id number] [place] [address] [place] MCH (RBC) [Entitic mass] 29.3 pg Normal 26.0-34.0 [facility] Comment on above: Order Comment: Speci men Type: BLOOD SPECIMENOrdering Facility: [facility] Address: [address] [place] [address] Performed By: #### 5 7021-8 ####[facility] LABIA [id number] [place] [address] [place] MCHC (RBC) [Mass/Vol] 33.5 g/dL Normal 30.5-36.0 [facility] Comment on above: Order Comment: Speci men Type: BLOOD SPECIMENOrdering Facility: [facility] Address: [address] [place] [address] Performed By: #### 5 7021-8 ####[facility] LABIA [id number] [place] [address] [place] MCV (RBC) [Entitic vol] 87.5 fL Normal 80.0-100.0 [facility] Comment on above: Order Comment: Speci men Type: BLOOD SPECIMENOrdering Facility: [facility] Address: [address] [place] [address] Performed By: #### 5 7021-8 ####[facility] LABIA [id number] [place] [address] [place] Monocytes (Bld) [#/Vol] 0.70 10*3/uL Normal <0.87 [facility] Comment on above: Order Comment: Speci men Type: BLOOD SPECIMENOrdering Facility: [facility] Address: [address] [place] [address] Performed By: #### 5 7021-8 ####[facility] LABIA [id number] [place] [address] [place] Monocytes/100 WBC (Bld) 6.9 % Normal [facility] Comment on above: Order Comment: Speci men Type: BLOOD SPECIMENOrdering Facility: [facility] Address: [address] [place] [address] Performed By: #### 5 7021-8 ####[facility] LABIA [id number] [place] [address] [place] Neutrophils (Bld) [#/Vol] 6.33 10*3/uL Normal 1.45-7.50 [facility] Comment on above: Order Comment: Speci men Type: BLOOD SPECIMENOrdering Facility: [facility] Address: [address] [place] [address] Performed By: #### 5 7021-8 ####[facility] LABCLIA [id number] [place] [address] [place] Neutrophils/100 WBC (Bld) 62.0 % Normal [facility] Comment on above: Order Comment: Speci men Type: BLOOD SPECIMENOrdering Facility: [facility] Address: [address] [place] [address] Performed By: #### 5 7021-8 ####[facility] LABIA [id number] [place] [address] [place] Nucleated RBC (Bld) [#/Vol] 10*3/uL Normal <0.01 [facility] Comment on above: Order Comment: Speci men Type: BLOOD SPECIMENOrdering Facility: [facility] Address: [address] [place] [address] Performed By: #### 5 7021-8 ####[facility] LABIA [id number] [place] [address] [place] Nucleated RBC/100 WBC (Bld) [Ratio] 0.0 /100 WBC Normal [facility] Comment on above: Order Comment: Speci men Type: BLOOD SPECIMENOrdering Facility: [facility] Address: [address] [place] [address] Performed By: #### 5 7021-8 ####[facility] LABIA [id number] [place] [address] [place] Platelet mean volume (Bld) [Entitic vol] 9.7 fL Normal 9.0-12.7 [facility] Comment on above: Order Comment: Speci men Type: BLOOD SPECIMENOrdering Facility: [facility] Address: [address] [place] [address] Performed By: #### 5 7021-8 ####[facility] LABCLIA [id number] [address] [address] [place] Platelets (Bld) [#/Vol] 254 10*3/uL Normal 150-400 [facility] Comment on above: Order Comment: Speci men Type: BLOOD SPECIMENOrdering Facility: [facility] Address: [address] [place] [address] Performed By: #### 5 7021-8 ####[facility] LABIA [id number] [place] [address] [place] RBC (Bld) [#/Vol] 5.22 10*6/uL Normal 4.20-6.00 [facility] Comment on above: Order Comment: Speci men Type: BLOOD SPECIMENOrdering Facility: [facility] Address: [address] [place] [address] Performed By: #### 5 7021-8 ####[facility] [id number] [place] [id number] [place] WBC (Bld) [#/Vol] 10.20 10*3/uL Normal 3.70-11.00 [facility] Comment on above: Order Comment: Speci men Type: BLOOD SPECIMENOrdering Facility: [facility] Address: [address] [place] [address] Performed By: #### 5 7021-8 ####[facility] LABIA [id number] [place] [id number] [place] Comprehensive metabolic 2000 panelon 07-04-2024 Albumin [Mass/Vol] 4.0 g/dL Normal 3.9-4.9 [facility] Comment on above: Order Comment: Speci men Type: BLOOD SPECIMENOrdering Facility: [facility] Address: [address] [place] [address] Performed By: #### 2 4331-1, 24031-4 ####[facility] LABCLIA [id number] [place] [id number] [place] ALP [Catalytic activity/Vol] 87 U/L Normal 38-113 [facility] Comment on above: Order Comment: Speci men Type: BLOOD SPECIMENOrdering Facility: [facility] Address: [address] [place] [address] Performed By: #### 2 4331-1, 16228-1 ####[facility] LABCLIA [id number] [place] [address] [place] ALT [Catalytic activity/Vol] 13 U/L Normal 10-54 [facility] Comment on above: Order Comment: Speci men Type: BLOOD SPECIMENOrdering Facility: [facility] Address: [address] [place] [address] Performed By: #### 2 4331-1, 23432-3 ####[facility] LABCLIA [id number] [place] [address] [place] Anion gap [Moles/Vol] 12 mmol/L Normal 8-15 [facility] Comment on above: Order Comment: Speci men Type: BLOOD SPECIMENOrdering Facility: [facility] Address: [address] [place] [address] Performed By: #### 2 4331-1, 67476-3 ####[facility] LABCLIA [id number] [place] [address] [place] AST [Catalytic activity/Vol] 16 U/L Normal 14-40 [facility] Comment on above: Order Comment: Speci men Type: BLOOD SPECIMENOrdering Facility: [facility] Address: [address] [place] [address] Performed By: #### 2 4331-1, 98251-6 ####[facility] LABCLIA [id number] [place] [id number] [place] Bilirubin [Mass/Vol] 0.6 mg/dL Normal 0.2-1.3 [facility] Comment on above: Order Comment: Speci men Type: BLOOD SPECIMENOrdering Facility: [facility] Address: [address] [place] [id number] Performed By: #### 2 4331-1, ####[facility] LABCLIA [id number] [facility] [place] [address] [place] Calcium [Mass/Vol] 9.2 mg/dL Normal 8.5-10.2 [facility] Comment on above: Order Comment: Speci men Type: BLOOD SPECIMENOrdering Facility: [facility] Address: [address] [place] [address] Performed By: #### 2 4331-1, 46281-8 ####[facility] LABCLIA [id number] [place] [address] [place] Chloride [Moles/Vol] 106 mmol/L Normal 98-107 [facility] Comment on above: Order Comment: Speci men Type: BLOOD SPECIMENOrdering Facility: [facility] Address: [address] [place] [address] Performed By: #### 2 4331-, ####[facility] LABCLIA [id number] [facility] [place] [address] [place] CO2 [Moles/Vol] 22 mmol/L Normal 22-30 [facility] Comment on above: Order Comment: Speci men Type: BLOOD SPECIMENOrdering Facility: [facility] Address: [address] [place], [place] [address] Performed By: #### 2 4331-1, ####[facility] LABCLIA [id number] [place] [address] [place] Creatinine [Mass/Vol] 0.78 mg/dL Normal 0.73-1.22 [facility] Comment on above: Order Comment: Speci men Type: BLOOD SPECIMENOrdering Facility: [facility] Address: [address] [place] [address] Performed By: #### 2 4331-1, 72648-6 ####[facility] LABIA [id number] [place] [address] [place] Creatinine and Glomerular filtration rate.predicted panel (S/P/Bld) 96 mL/min/1.73m??? Normal >=60 [facility] Comment on above: Order Comment: George saldivar Type: BLOOD SPECIMENOrdering Facility: [facility] Address: [address] [place] [address] Result Comment: Katerine mated Glomerular Filtration Rate (eGFR) is calculated using the 2020 CKD-EPI creatinine equation. This equation utilizes serum creatinine, sex, and age as parameters. The creatinine assay has traceable calibration to isotope dilution-mass spectrometry. Refer to KDIGO guidelines for clinical interpretation. In patients with unstable renal function, e.g. those with acute kidney injury, the eGFR may not accurately reflect actual GFR. Performed By: #### 2 4331-1, 25828-8 ####[facility] LABIA [id number] [place] [address] [place] Glucose [Mass/Vol] 99 mg/dL Normal 74-99 [facility] Comment on above: Order Comment: George saldivar Type: BLOOD SPECIMENOrdering Facility: [facility] Address: [address] [place] [address] Result Comment: The [place] Diabetes Association (ADA) provides guidance for cutoff values for fasting glucose and random glucose. The ADA defines fasting as no caloric intake for at least 8 hours. Fasting plasma glucose results between 100 to 125 mg/dL indicate increased risk for diabetes (prediabetes). Fasting plasma glucose results greater than or equal to 126 mg/dL meet the criteria for diagnosis of diabetes. In the absence of unequivocal hyperglycemia, results should be confirmed by repeat testing. In a patient with classic symptoms of hyperglycemia or hyperglycemic crisis, random plasma glucose results greater than or equal to 200 mg/dL meet the criteria for diagnosis of diabetes. Reference: Standards of Medical Care in Diabetes 2016, [place] Diabetes Association. Diabetes Care. 2016.39(Suppl 1). Performed By: #### 2 4331-1, ####[facility] LABCLIA [id number] [address] [address] [place] Potassium [Moles/Vol] 4.0 mmol/L Normal 3.7-5.1 [facility] Comment on above: Order Comment: Speci men Type: BLOOD SPECIMENOrdering Facility: [facility] Address: [address] [place] [address] Performed By: #### 2 4331-1, ####[facility] LABCLIA [id number] [place] [id number] [place] Protein [Mass/Vol] 6.9 g/dL Normal 6.3-8.0 [facility] Comment on above: Order Comment: Speci men Type: BLOOD SPECIMENOrdering Facility: [facility] Address: [address] [place] [address] Performed By: #### 2 4331-, ####[facility] LABCLIA [id number] [place] [id number] [place] Sodium [Moles/Vol] 140 mmol/L Normal 136-144 [facility] Comment on above: Order Comment: Speci men Type: BLOOD SPECIMENOrdering Facility: [facility] Address: [address] [place] [address] Performed By: #### 2 4331-, ####[facility] LABCLIA [id number] [address] [address] [place] Urea nitrogen [Mass/Vol] 9 mg/dL Normal 9-24 [facility] Comment on above: Order Comment: Speci men Type: BLOOD SPECIMENOrdering Facility: [facility] Address: [address] [place] [address] Performed By: #### 2 4331-1, ####[facility] LABCLIA [id number] [place] [id number] [place] HbA1c (Bld)on 07-04-2024 Average glucose Estimated from glycated hemoglobin (Bld) [Mass/Vol] 117 mg/dL Normal [facility] Comment on above: Order Comment: George saldivar Type: BLOOD SPECIMENOrdering Facility: [facility] Address: [address] [place] [address] Result Comment: eAG: (Estimated average glucose) is a calculated value from HgbA1c and is instruments sales representative of the average blood glucose level in the last 2-3 month period. Performed By: #### 5 5454-3 ####[facility] LABCLIA [id number] [place] [address] [place] HbA1c (Bld) [Mass fraction] 5.7 % High 4.3-5.6 [facility] Comment on above: Order Comment: George saldivar Type: BLOOD SPECIMENOrdering Facility: [facility] Address: [address] [place] [address] Result Comment: Amer ican Diabetes Association guidelines indicate that patients with HgbA1c in the range 5.7-6.4% are at increased risk for development of diabetes, and intervention by lifestyle modification may be beneficial. HgbA1c greater or equal to 6.5% is considered diagnostic of diabetes. Performed By: #### 5 5454-3 ####[facility] LABCLIA [id number] [place] [address] [place] Lipid 1996 panelon Cholesterol [Mass/Vol] 174 mg/dL Normal <200 [facility] Comment on above: Order Comment: George saldivar Type: BLOOD SPECIMENOrdering Facility: [facility] Address: [address] [place] [address] Result Comment: <200 mg/dL, Desirable 200-239 mg/dL, Borderline high >239 mg/dL, High Performed By: #### 2 4331-1, 33396-6 ####[facility] LABCLIA [id number] [place] [address] [place] Cholesterol in HDL [Mass/Vol] 60 mg/dL Normal >39 [facility] Comment on above: Order Comment: Aarontyrone saldivar Type: BLOOD SPECIMENOrdering Facility: [facility] Address: [address] [place] [address] Result Comment: 40-5 9 mg/dL, Acceptable >59 mg/dL, High: Negative risk factor for coronary heart disease <40 mg/dL, Low: Positive risk factor for coronary heart disease Performed By: #### 2 4331-1, 28709-8 ####[facility] LABCLIA [id number] [address] [place] [facility] Cholesterol in LDL [Mass/Vol] 94 mg/dL Normal <100 [facility] Comment on above: Order Comment: Aarontyrone saldivar Type: BLOOD SPECIMENOrdering Facility: [facility] Address: [address] [place] [address] Result Comment: <100 mg/dL, Optimal 100-129 mg/dL, Near optimal/above optimal 130-159 mg/dL, Borderline high 160-189 mg/dL, High >189 mg/dL, Very high Secondary prevention optimal LDL Cholesterol levels are recommended to be < 70 mg/dL Performed By: #### 2 4331-1, 40215-5 ####[facility] LABCLIA [id number] [address] [place] Cholesterol in LDL/Cholesterol in HDL [Mass ratio] 1.57 {ratio} Normal <2.54 [facility] Comment on above: Order Comment: George saldivar Type: BLOOD SPECIMENOrdering Facility: [facility] Address: [address] [place] [address] Result Comment: Refe rence: 1. National Cholesterol Education Program ATP III Guideline At-A-Glance Quick Desk Reference: National Heart, Lung, and Blood [place]. National Institutes of Health. 2001: NIH Publication No. 01-3305. 2. An International Atherosclerosis Society position paper: global recommendations for the management of dyslipidemia: executive summary, Atherosclerosis. 2014: 232(2):410-413. Performed By: #### 2 4331-1, 39473-3 ####[facility] LABCLIA [id number] [place] [address] [place] Cholesterol in VLDL [Mass/Vol] 20 mg/dL Normal <30 [facility] Comment on above: Order Comment: Speci men Type: BLOOD SPECIMENOrdering Facility: [facility] Address: [address] [place] [address] Performed By: #### 2 4331-1, 26901-1 ####[facility] LABCLIA [id number] [place] [address] [place] Cholesterol non HDL [Mass/Vol] 114 mg/dL Normal <130 [facility] Comment on above: Order Comment: Speci men Type: BLOOD SPECIMENOrdering Facility: [facility] Address: [address] [place] [address] Result Comment: <130 mg/dL, Optimal 130-159 mg/dL, Near optimal/above optimal 160-189 mg/dL, Borderline high 190-219 mg/dL, High >219 mg/dL, Very high Secondary prevention optimal non HDL Cholesterol levels are recommended to be <100 mg/dL Performed By: #### 2 4331-1, ####[facility] LABCLIA [id number] [place] [address] [place] Cholesterol.total/Ch olesterol in HDL [Mass ratio] 2.90 {ratio} Normal <5.10 [facility] Comment on above: Order Comment: Speci men Type: BLOOD SPECIMENOrdering Facility: [facility] Address: [address] [place] [address] Performed By: #### 2 4331-1, ####[facility] LABCLIA [id number] [place] [address] [place] FASTING TIME 15 hrs Normal [facility] Comment on above: Order Comment: Speci men Type: BLOOD SPECIMENOrdering Facility: [facility] Address: [address] [place] [address] Performed By: #### 2 4331-1, 17137-0 ####[facility] LABCLIA [id number] [place] [address] [place] Triglyceride [Mass/Vol] 98 mg/dL Normal <150 [facility] Comment on above: Order Comment: Speci men Type: BLOOD SPECIMENOrdering Facility: [facility] Address: [address] [place] [address] Result Comment: <150 mg/dL, Normal 150-199 mg/dL, Borderline high 200-499 mg/dL, High >499 mg/dL, Very high Performed By: #### 2 4331-1, 68465-2 ####[facility] LABCLIA [id number] [place] [address] [place] CNOVon 07-02-2024 CNOV Office Visit (FAMPWS ) LYRIC PADRON ([id number]) 1955 [place] Date Time Provider Department 07/02/24 11:20 AM GEOFFREY ADAMS During your visit today, we recorded the following information about you: Pulse Blood pressure Weight Height 84/minute 114/74 68.3 kg 1.651 m Geoffrey Adams MD 07/02/2024 11:41 AM Signed Patient presents with: 6 Month Exam HPI: Patient presents today for office visit for follow up. HLD: Continues on Pravastatin 40 mg daily. No myalgias. No chest pain or shortness of breath. Following with Neurology. Continues on Memantine 5 mg daily. Memory slightly worse. Not driving. Frequent falls. Ambulates with cane. Unsteady. Has issues standing up from the toilet which caused his last fall. Has equipment in place to use. No injuries. [facility] not [facility]. Reinforces importance of doing so to prevent falls. Sees Urology. Continues on Terazosin 5 mg daily. No urinary concerns. MEDICATIONS: Current Outpatient Medications Medication Sig pravastatin (PRAVACHOL) 40 mg tablet Take 1 tablet by mouth once daily. memantine (NAMENDA) 5 mg tablet Take 1 tablet by mouth two times a day. ibuprofen (MOTRIN) 400 mg tablet Take by mouth. terazosin (HYTRIN) 5 mg capsule Take 1 capsule by mouth daily at bedtime. meloxicam (MOBIC) 15 mg tablet Take 1 tablet by mouth once daily. With food. minocycline (MINOCIN, DYNACIN) 50 mg capsule Take 1 capsule by mouth twice daily. acetaminophen (TYLENOL) 325 mg tablet Take 2 tablets by mouth every 6 hours as needed for Pain. No current facility-administered medications for this visit. ALLERGIES: ALLERGIES No Known Allergies PAST MEDICAL HISTORY Diagnosis Date Arthritis BPH with obstruction/lower urinary tract symptoms Rosacea Subarachnoid hemorrhage (HCC) 08/11/2023 PAST SURGICAL HISTORY Procedure Laterality Date PAST SURGICAL HISTORY OF flexible cystoscopy PAST SURGICAL HISTORY OF 1958 tonsillectomy PAST SURGICAL HISTORY OF 2017 left eye surgery TRANSURETHRAL ELEC-SURG PROSTATECTOM N/A 08/18/2021 TRANSURETHRAL ELEC-SURG PROSTATECTOM 2019 FAMILY HISTORY Problem Relation Age of Onset Arthritis Mother Cancer Mother melanoma Heart Mother Viral myocarditis. GI Father ulcers Social History Tobacco Use Smoking status: Every Day Current packs/day: 0.50 Average packs/day: 0.5 packs/day for 20.0 years (10.0 ttl pk-yrs) Types: Cigarettes Smokeless tobacco: Former Vaping Use Vaping status: Never Used Substance Use Topics Alcohol use: Not Currently Drug use: Never Discussed tobacco cessation, including risks of continued use. Offered assistance to help quit if patient desires. Reviewed current medications, allergies, past medical history, surgical history, family history and social history today. REVIEW OF SYSTEMS No bowel issues. All other reviewed and negative other than HPI. HEALTH MAINTENANCE: Reviewed health maintenance issues today and recommended the following in detail. Depression Screening Never done Anxiety Screening Never done Shingrix Vaccine(1 of 2) Never done Covid-19 Vaccine( - season) Never done Influenza Vaccine(1) due on 06/17/2024 VITALS: BP 114/74 Pulse 84 Ht 165.1 cm (5' 5 ) Wt 68.3 kg (150 lb 9.2 oz) BMI 25.06 kg/m? Last 4 Encounter Wt Readings: Date: Wt: 04/24/2024 67.1 kg (148 lb) 12/30/2023 68.9 kg (152 lb) 12/13/2023 68.3 kg (150 lb 9.6 oz) 11/21/2023 69.2 kg (152 lb 8.9 oz) PHYSICAL EXAMINATION: General appearance: Well appearing, alert, in no acute distress, well-hydrated, well nourished. Skin: Skin color, texture, turgor normal, no suspicious rashes or lesions Head: Normocephalic, no masses, lesions, tenderness or abnormalities Eyes: Anicteric sclera. Pupils are equally round and reactive to light. Extraocular movements are intact. Lungs: Lungs clear to auscultation. No wheezing, rhonchi, rales Heart: RRR without murmur, gallop, or rubs. No ectopy Abdomen: Normal abdominal exam, Abdomen soft, non-tender. Bowel sounds normal. No masses, organomegaly Extremities: No deformities, edema, skin discoloration, clubbing or cyanosis. Good capillary refill. Musculoskeletal: No joint swelling, deformity, or tenderness Peripheral pulses: Normal ASSESSMENT/PLAN: 1. Personal history of traumatic brain injury - ICD9: V15.52, ICD10: Z87.820 (primary diagnosis) - stable. Encouraged to resume his exercises. 2. Ataxia, unspecified - ICD9: 781.3, ICD10: R27.0 - continue to use cane. Call if worsens. 3. Cervical myelopathy (HCC) - ICD9: 721.1, ICD10: G95.9 - as above. Resume therapy. 4. History of subarachnoid hemorrhage - ICD9: V12.59, ICD10: Z86.79 - stable. 5. History of subdural hematoma - ICD9: V12.59, ICD10: Z86.79 - stable. 6. Mild cognitive impairment - ICD9: 331.83, ICD10: G31.84 - as (more content not included)... Normal [facility] [id number] 06-21-2024 [id number] HNO ID: [id number] Author: CONNIE PEPE OTR/Augustin Service: ? Author Type: Occupational Therapist Type: [id number] Filed: 06/21/2024 08:56 Note Text: [facility] Therapy Occupational Therapy Plan of Care Certification Patient Name: Lyric Padron : 1955 [facility] #: [id number] Date: 06/20/2024 To: Jayda Ace PA-C From Therapist: JOANN Carter/Augustin RE: Patient Certification/ Recertification Your review, approval and electronic signature are required in order to comply with Payor: [employer] MEDICARE / Plan: [employer] MEDICARE PPO / Product Type: PPO / regulations. The identified Occupational Therapy PLAN OF CARE for the patient is as follows: F03.90 Dementia without behavioral disturbance (HCC) (primary encounter diagnosis) PLAN OF CARE: SUMMARY AND RECOMMENDATIONS *The information in this report indicates the ability of the roll off driver to operate a motor vehicle on this date only. Due to the complex nature of the safe operation of a motor vehicle, and considering the demands of integrating changing environmental conditions, and visual, cognitive, and physical skills, successful completion of this program is not a guarantee of safe driving in the future. ASSESSMENT OF INSTRUMENTAL ADL AND COMMUNITY MOBILITY: Lyric Padron presents with the diagnosis of dementia without behavioral disturbance. He presents with impairments of contrast sensitivity, visual acuity especially with night glare condition, peripheral vision, color perception, memory, cognition, visual perception, cognitive processing speed, and visual processing speed. No further therapy services recommended at this time. RECOMMENDATIONS: ADL/IADL Recommendations: 1. Recommend fall prevention strategies including removing clutter and keeping walkways and stairs free of objects, securing or removing throw rugs, using motion activated lights for night in bedroom and/or bathroom. 2. Recommended extra caution at night with functional mobility in the home and/or if out in the community due to decreased quality of vision to promote safety. 3. Educated client about removing all tripping hazards from walkways and ensuring adequate lighting in stairwells for safety due to decreased contrast sensitivity. 4. Educated client about use of compensatory memory strategies such as writing things down, using a calendar, using technology to set reminders. 5. Educated client and client's about habits that can help protect brain health to potentially slow decline of memory/cognition, provided resources. Discussed utilizing Silver Sneakers as a means of engaging in regular physical activity. Driving Recommendations: REFRAIN FROM DRIVING. Recommend client retire from driving at this time. Educated client and client's about fci from driving and provided resources to seek out transportation options through their insurance as well as potential options outside of insurance. Educated client and client's to connect with [facility] [employer] [facility] in their area for local resources. Educated about deficits observed on assessment this date and safety implications with driving. Educated client and client's that planning ahead for the week can help client still go do the things he wants to do if they need to plan around other events/things his has to complete. Herrera's Visual Field Exam Requested: No Recommended Complete Eye Exam: No Prognosis: Poor Poor due to: memory deficits (slow cognitive and visual processing speed) Goals for Episode of Care created on 06/20/24 through 06/21/24 Patient will demonstrate understanding of safety issues in the home and/or community with assistance as recommended for instrumental activities of daily living, community mobility, and driving. -MET 06/21/24 Planned Interventions, Frequency, and Duration: Current Frequency: Discontinue Therapy Services Duration: 1 visit Total Number of Visits Planned: 1 Patient to be see for [facility] management ([id number]), Community / Work Reintegration, [facility] [employer] rehab evaluation PLAN FOR NEXT VISIT: Discontinue therapy services Patient demonstrates fair understanding of plan of care and treatment. The above goals and plan of care were discussed and agreed upon by patient/family. For further details regarding this patient refer to the Occupational Therapy electronically documented visit dated 06/20/2024. Provider Attestation I have reviewed the treatment plan for Lyric Padron, [facility]# [id number] for the period of 06/20/24 -- 06/21/24, established on 06/20/2024. Signature certifies the need for therapy services. Normal [facility] CNTHERAPYon 06-20-2024 CNTHERAPY OT/PT/Speech Visit ( AKOTLK) LYRIC PADRON ([id number]) 1955 M Date Time Provider Department 06/20/24 12:45 PM CONNIE PEPE Date Time Provider Department Center 06/20/2024 12:45 PM [id number] PEPEAugustinLing [place] Reason for Visit: OT EVAL [748] OT Discharge [750] Primary Visit Diagnosis:Dementia without behavioral disturbance (HCC) [F03.90] Allergies As of Date: 06/20/2024 (No Known Allergies) Date Reviewed: 04/24/2024 Reviewed by: Jayda Ace PA-C - Fully Assessed Prescriptions as of 06/21/2024 - pravastatin (PRAVACHOL) 40 mg tablet Take 1 tablet by mouth once daily. - memantine (NAMENDA) 5 mg tablet Take 1 tablet by mouth two times a day. - ibuprofen (MOTRIN) 400 mg tablet Take by mouth. - terazosin (HYTRIN) 5 mg capsule Take 1 capsule by mouth daily at bedtime. - meloxicam (MOBIC) 15 mg tablet Take 1 tablet by mouth once daily. With food. - minocycline (MINOCIN, DYNACIN) 50 mg capsule Take 1 capsule by mouth twice daily. - acetaminophen (TYLENOL) 325 mg tablet Take 2 tablets by mouth every 6 hours as needed for Pain. Letter Text Normal [facility] CNOVon 04-24-2024 [facility] Office Visit (BHARATHI ) LYRIC PADRON ([id number]) 1955 M Date Time Provider Department 04/24/24 11:30 AM JAYDA ACE During your visit today, we recorded the following information about you: Pulse Respiration Blood pressure Weight 89/minute 18/minute 122/81 67.1 kg Jayda Ace PA-C 04/24/2024 12:53 PM Signed ESTABLISHED PATIENT VISIT Last visit: 12/13/23 ASSESSMENT/PLAN: 1. Frequent falls - ICD9: V15.88, ICD10: R29.6 (primary diagnosis) 2. Subdural hematoma (HCC) - ICD9: 432.1, ICD10: S06.5XAA 3. Dementia without behavioral disturbance (HCC) - ICD9: 294.20, ICD10: F03.90 4. Balance problem - ICD9: 781.99, ICD10: R26.89 5. Cervical stenosis of spinal canal - ICD9: 723.0, ICD10: M48.02 6. Memory loss - ICD9: 780.93, ICD10: R41.3 Patient with slight improvement since last appointment, was previously and is today. Following with neurosurgery and had complete resolution of his subdural hematoma, but concern for significant cervical stenosis likely contributing to falls. Workup previously including EMG was negative for other etiology. Patient having 4 falls since last appointment with no significant injury. Typically falls occur when he bends over and falls forward. No lightheadedness or dizziness. No new concerns today, no changes in memory, and patient both note some mild improvement. Patient is not very physically active and does not do any brain exercises, primarily watches TV at home. Does not drink much water. Discussed conservative therapy along with continuing Namenda 5 mg twice daily. Patient and amenable. Discussed neuropsychological testing and further workup patient deferring at this time, would like to continue with conservative therapy and reassess in 3 to 4 months. Encouraged follow-up with neurosurgery as well. Some concern regarding driving, while visual-spatial was 3 before, there is some deficit when compared to previous and total MoCA. Did discuss occupational evaluation for driving and will place this order. Until then, encourage patient to not drive alone, patient and family agree and understand. Patient agreeable to treatment plan of care at this time, questions were answered. Patient to follow-up in 3 to 4 months or sooner should any symptoms change or worsen. Jayda Ace PA-C CHIEF COMPLAINT: follow up HISTORY OF PRESENT ILLNESS: Lyric L Leisure is a 69 year old male, There were no vitals taken for this visit. with a PMH significant for Head injury 2008, MCI, DDD . Last seen on 12/13/23 for memory loss, frequent falls. Following with neurosurgery for frequent falls and spinal stenosis, deferring surgery. Exercises regularly. Driving locally, referred to OT. MoCA was , encouraged conservative. Deferred neuropsych testing, namenda 5mg bid. [employer] message on 04/23/24 When we saw you last you asked about Lyric's driving skills. You had suggested he take a driving test. He decided not to do this. I rode with him after our last appointment and he did not do to bad. He hugs the right hand side of the road. I rode with him again last week. He hugs the right side even more than before which is ok if there is a berm. Some of the roads he drives on do not have berms. I hate to say this but at this time I do not think he should be driving. I do not believe that he would be able to react to anything sudden in time to prevent an accident. I prefer if you do not mention that I sent you this message. Would it be possible for you to have the V revoke his license? Patient presents with for follow up appointment. Patient states no significant change since previous appointment. However notes maybe some slight worsening in memory since last appointment. She is very concerned about his driving, but does not want to discuss this during the appointment. Patient does report some mild weight loss but states he still eating regularly. Is not very active throughout the day, primarily watches the news. Does go to the gym a few times a week to exercise but otherwise is relatively sedentary. Does not drink much water, estimates drinking about 3 to 4 glasses a day. Is still driving patient is not concerned about this, no recent accidents or tickets. Doing well on Namenda 5 mg twice daily without any side effects. Patient did have 1 fall, states he tripped on a rug in his house with no major injuries, no head injuries. Does have a few instances of unsteadiness, denies any room spinning dizziness but states sometimes he loses his balance. Deferred cervical surgery to correct stenosis. REVIEW OF SYSTEMS GENERAL:No weight loss, malaise or fevers. HEENT:Negative for frequent or significant headaches, No changes in hearing or vision, no nose bleeds or other nasal problems NECK:Negative for lumps, goiter, pain and significant neck swelling (more content not included)... Normal [facility] Hemoccult Stl Ql IAon 2023 Lower GI hemoglobin IA Ql (Stl) Negative Normal Negative [facility] Comment on above: Order Comment: Speci men Type: STOOL SPECIMENOrdering Facility: [facility] Address: [address] [place] [address] Performed By: #### 2 9771-3 ####[facility] LABCLIA [id number] [facility] [id number] VILLE [id number] [facility] CNOVon 12-30-2023 CNOV Office Visit (FAMPWS ) LYRIC PADRON ([id number]) 1955 M Date Time Provider Department 12/30/23 3:00 PM GEOFFREY ADAMS During your visit today, we recorded the following information about you: Pulse Blood pressure Weight Height 101/minute 104/76 68.9 kg 1.651 m Geoffrey Adams MD 12/30/2023 3:30 PM Signed Patient presents with: 6 Month Exam HPI: Patient presents today for office visit for follow up. HLD: Current medication: Pravastatin 40 mg daily No myalgias Sees Urology. Continues on Terazosin 5 mg qhs. No urinary issues. NEURO: Current medication: Memantine 5 mg BID Follows with Neuro. Last OV 12/13/23 Feels memory is about the same. Sees neurology as well. Balance is an issue. Has had 4 falls since July. Ambulates with cane. Unsteady. He has elected to avoid surgery. They did keep him on meloxicam. No chest pain or shortness of breath. No more falls. Using his cane. Has occasional dysphagia. No gerd. Recommended esophagogram and speech therapy eval. Dicussed risks of aspiration. Refuses to do it. Has a bunion. No trauma. No pain. See Dr Srinivasan's last note, copied and pasted: -right acute on chronic subdural hematoma (resolved) -cervical myelopathy -nicotine dependence -recurrent falls -rosacea -historic traumatic subarachnoid hemorrhage The CT head that Lyric had today showed almost complete resolution of his right-sided acute on chronic subdural hematoma. This is outstanding news. I did caution Lyric and his that these can recur and I discussed the types of symptoms that they should be on the look out for that might prompt consideration of repeat imaging. This point our attention shifts more to carry cervical myelopathy. My concern is that Lyric has concerning overall health and is having recurrent falls. Lyric's level of interest in the surgeries not high. Lyric is also a committed smoker. I talked at length about the natural history of cervical myelopathy which largely repeated aspects of a prior discussion that we had. I did discuss the role of surgery as well as the typical postoperative course and the risks and benefits. Lyric seemed very disinterested in the procedure or any effort to cut down his smoking. They state a preference to consider surgical management and to contact me again in the future if this is something of interest to them. I think this is a very reasonable plan. MEDICATIONS: Current Outpatient Medications Medication Sig memantine (NAMENDA) 5 mg tablet Take 1 tablet by mouth two times a day. ibuprofen (MOTRIN) 400 mg tablet Take by mouth. terazosin (HYTRIN) 5 mg capsule Take 1 capsule by mouth daily at bedtime. meloxicam (MOBIC) 15 mg tablet Take 1 tablet by mouth once daily. With food. minocycline (MINOCIN, DYNACIN) 50 mg capsule Take 1 capsule by mouth twice daily. pravastatin (PRAVACHOL) 40 mg tablet Take 1 tablet by mouth once daily. acetaminophen (TYLENOL) 325 mg tablet Take 2 tablets by mouth every 6 hours as needed for Pain. No current facility-administered medications for this visit. ALLERGIES: ALLERGIES No Known Allergies PAST MEDICAL HISTORY Diagnosis Date Arthritis BPH with obstruction/lower urinary tract symptoms Rosacea Subarachnoid hemorrhage (HCC) 08/11/2023 PAST SURGICAL HISTORY Procedure Laterality Date PAST SURGICAL HISTORY OF flexible cystoscopy PAST SURGICAL HISTORY OF 1959 tonsillectomy PAST SURGICAL HISTORY OF 2017 left eye surgery TRANSURETHRAL ELEC-SURG PROSTATECTOM N/A 08/18/2021 TRANSURETHRAL ELEC-SURG PROSTATECTOM 2019 FAMILY HISTORY Problem Relation Age of Onset Arthritis Mother Cancer Mother melanoma Heart Mother Viral myocarditis. GI Father ulcers Social History Tobacco Use Smoking status: Every Day Packs/day: 0.50 Years: 20.00 Additional pack years: 0.00 Total pack years: 10.00 Types: Cigarettes Smokeless tobacco: Former Vaping Use Vaping Use: Never used Substance Use Topics Alcohol use: Not Currently Drug use: Never Reviewed current medications, allergies, past medical history, surgical history, family history and social history today. REVIEW OF SYSTEMS All other reviewed and negative other than HPI. HEALTH MAINTENANCE: Reviewed health maintenance issues today and recommended the following in detail. RSV Vaccine(1 - 1-dose 60+ series) Never done Influenza Vaccine(1) due on 06/17/2023 Covid-19 Vaccine( - 2022- season) Never done Advance Directive Discussion due on 10/17/2023 Depression Assessment due on 10/17/2023 Colorectal Cancer Screening due on 03/02/2024 VITALS: BP 104/76 Pulse 101 Ht 165.1 cm (5' 5 ) Wt 68.9 kg (152 lb) SpO2 99% BMI 25.29 kg/m? Last 4 Encounter Wt Readings: Date: Wt: 12/13/2023 68.3 kg (150 lb 9.6 oz) 11/21/2023 69.2 kg (152 lb 8.9 oz) 10/13/2023 69.9 kg (154 l (more content not included)... Normal [facility] CNOVon 12-13-2023 CNOV Office Visit (BHARATHI ) LYRIC PADRON ([id number]) 1955 [place] Date Time Provider Department 12/13/23 10:45 AM JAYDA ACE During your visit today, we recorded the following information about you: Pulse Respiration Blood pressure Weight 95/minute 16/minute 122/74 68.3 kg Madan Garcia LPN 12/13/2023 11:37 AM Signed 12/12/2023 PROMIS Global Health Physical Health Summary Physical health: Good Everyday physical activity, ability: Moderately Fatigue: Mild Pain level: 0 No Pain General health: Very good Social activities/roles, ability: Good Physical Health T-Score 47.7 (Good) Physical Health Percentile 41 PROMIS Global [facility] Mental Health Summary Quality of life: Very good Mental health (mood,thinking): Good Social satisfaction: Good Emotional problems (anxious,depressed): Rarely Mental Health T-Score 48.3 (Very Good) Mental Health Percentile 43 PHQ-9 Score: 0(Minimal Depression) PHQ-9 Self-Harm: Not at all NEURO-QOL Cognitive Function T-Score 46(Within Normal Limits) Neuro-Qol Cognitive Function Percentile 34 PROMIS Physical Function T-Score 32(Moderate Dysfunction) PROMIS Physical Function Percentile 4 Percentiles provide an indication of how a patient's score ranks in relation to the [place] general population. > 31st percentile is within normal limits or better *< 31st percentile is at least ? SD worse than population, which may be clinically relevant < 16th percentile is at least 1 SD worse than population and warrants attention Jayda Ace PA-C 12/13/2023 11:37 AM Signed ESTABLISHED PATIENT VISIT Last visit: 08/24/23 ASSESSMENT/PLAN: 1. History of traumatic brain injury - ICD9: V15.52, ICD10: Z87.820 (primary diagnosis) 2. Memory loss - ICD9: 780.93, ICD10: R41.3 3. Balance problem - ICD9: 781.99, ICD10: R26.89 4. SAH (subarachnoid hemorrhage) (HCC) - ICD9: 430, ICD10: I60.9 5. Frequent falls - ICD9: V15.88, ICD10: R29.6 Patient with repeat head injury when he fell down a flight of stairs sustaining a subarachnoid hemorrhage on 08-11-2023. Patient's concerned over worsening memory since that time. Prior to the fall, patient had had a few falls that were without any significant injury. States that he was doing well before. Denies any neurologic complaints including headaches, dizziness, weakness, vision changes after the fall or subarachnoid hemorrhage. Notes that he is doing well and recovering well. Has stopped physical therapy until cleared by neurosurgery, has an appointment later this month along with repeat imaging. Also has imaging scheduled for his MRI cervical spine due to his persistent weakness. No signs or symptoms of acute cord compression at this time, negative [place]on and symmetric reflexes bilaterally. Discussed red flag signs and symptoms that would warrant additional work-up in the emergency department and patient and are agreeable. Patient's was very concerned about patient's worsening memory after his fall, discussed that this is likely secondary to significant brain injury and memory loss and difficulty with concentration and memory is normal. MoCA today was compared to previous which was . Continue to take Namenda 5 mg twice daily. Will not make any adjustments to medications at this time. Patient's concerned about dementia and wanting further testing, discussed that this may take time to recover due to his history of traumatic brain injury, patient's age and significance of injury. Patient and are agreeable and understand. Should patient's memory continue to be worse than previous, may consider further neuropsychological testing in the future. Discussed conservative therapies that may be beneficial including rest, optimizing sleep, hydration, etc. Patient and agreeable to treatment plan of care at this time, all questions were answered. Patient to follow-up in 3 months or sooner should any symptoms change or worsen. Jayda Ace PA-C CHIEF COMPLAINT: follow up HISTORY OF PRESENT ILLNESS: Lyric Padron is a 68 year old male, BMI 25.06 kg/m2 with a PMH significant for Head injury 2008, MCI, DDD. last seen for 08/24/23 for TBI, memory loss and balance issue. Previous MoCA before injury was and at last appointment was . New brain injury, following with neurosurgery. Last visit was 11/21/23, almost complete resolution of subdural hematoma. Concerned for cervical myelopathy contributing to falls. Underwent a right MMA embolization on 10/04/23. Referred to PT. Previous EMG was negative. Patient presents with his for follow-up appointment. Patient notes that he has noted improvement in his memory since last appointment, patient's agrees. No new symptoms or concerns. Has had 4 falls since last appointment, has follow-up with neurosurgery and they feel this is (more content not included)... Normal [facility] CNOVon 11-21-2023 CNOV Office Visit (NEAGCL M) LYRIC PADRON ([id number]) 1955 Date Time Provider Department 11/21/23 11:15 AM KWADWO SRINIVASAN NEAGCLM During your visit today, we recorded the following information about you: Pulse Blood pressure Weight Height 83/minute 116/79 69.2 kg 1.651 m Kwadwo Srinivasan MD, PhD 11/21/2023 1:14 PM Signed NEUROSURGERY FOLLOW UP OFFICE NOTE Kwadwo Srinivasan MD, PhD Date of visit: November 21, 2023 Patient Name: Mr.Gary Augustin Padron Date of : 1955 Current Age: [age] year old Sex: male MRN/E# [id number] Last Office Visit: 10/13/2023 Chief Complaint: Patient presents with: Established Patient SUBJECTIVE: HPI The patient presented to [facility] ED on 08/11/2023 after being unsteady on his feet and did not remember events of the night prior. He noted he thought he fell and hit his head. He noted head pain with a laceration. Advanced imaging demonstrated a small tSAH. No surgical intervention was warranted at that time. He was also noted to have a Campoverde's sign. It was recommended that he follow up in 4 weeks with a repeat CT Brain and MRI cervical. At his last visit on 09/12/2023 he stated he felt he had been doing well since discharge. His noted that his confusion and memory had worsened since being discharged. He denied any other symptoms at that time. He denied any cervical pain. He noted feeling unsteady and had use of a cane. His noted that he fell a week ago out of a chair loosing his balance, but noted he did not hit his head. He noted taking tylenol if needed, but hasn't needed to. There was some new bleeding he has had in his right subdural space which was associated with very subtle right to left midline shift of the brain. Also concerning but a lower priority is marked cervical cord compression which I think is now mandating a dual diagnosis of cervical myelopathy. It was recommended that he consider a referral for a middle meningeal artery embolization. He declined at that time. It was recommended that he follow up in 1 month with a repeat CT brain. He noted worsening symptoms and was evaluated by Dr. Pedro in office on 09/22/2023 to which he underwent a Attempted right MMA embolization on 10/04/2023. At his last visit on 10/13/2023 he stated he had been doing okay since his last visit. He and his noted some continued confusion and forgetfulness. He denied any weakness or falls. His felt that last week he started dragging his right foot with ambulation, did not note any dragging at today's visit. He continued with use of cane. He denied any headaches, dizziness, lightheadedness, nausea, vomiting, speech, hearing or visual changes. He denied taking anything for pain at this time. He did not present with a pronator drift, therefore there was no conclusion that his subdural hematoma was causing symptoms. Consideration for operative management for his cervical spine was reluctant due to his subdural hematoma. He was referred to physical therapy. It was recommended that he follow up in 1 month with a repeat CT head, prompting his visit today. Today he states he has been doing okay since his last visit. He continues with confusion and forgetfulness. He feels he continues to drag his right foot with ambulation and has continued use of a cane. He has fallen 4 times since his last visit. He denies any headaches, lightheadedness, nausea, vomiting, visual or hearing changes. He has since completed a course of therapy at [facility] in [place] and is to continue with exercises with Silver Sneaker. He denies any cervical pain at this time or any radicular symptoms. He presents for imaging review, evaluation and plan of care. Symptoms: memory difficulties and forgetfulness. Use of cane and unsteady. falls. Smoker: endorses Diabetic: denies Anticoagulants / Antiplatelets: denies Occupation: retired PREVIOUS CONSERVATIVE TREATMENTS: Mobic Tylenol Physical therapy- [facility] in [place] PREVIOUS SURGERY: None PAIN EVALUATION No data found in the last 1 encounters. PAST MEDICAL HISTORY Diagnosis Date Arthritis BPH with obstruction/lower urinary tract symptoms Rosacea Subarachnoid hemorrhage (HCC) 08/11/2023 PAST SURGICAL HISTORY Procedure Laterality Date PAST SURGICAL HISTORY OF flexible cystoscopy PAST SURGICAL HISTORY OF 1959 tonsillectomy PAST SURGICAL HISTORY OF 2018 left eye surgery TRANSURETHRAL ELEC-SURG PROSTATECTOM N/A 08/18/2021 TRANSURETHRAL ELEC-SURG PROSTATECTOM 2019 FAMILY HISTORY Problem Relation Age of Onset Arthritis Mother Cancer Mother melanoma Heart Mother Viral myocarditis. GI Father ulcers ALLERGIES No Known Allergies Current Outpatient Medications Medication Sig Dispense Refill ibuprofen (MOTRIN) 400 mg tablet Take by mouth. memantine (NAMENDA) 5 mg tablet Take 1 tablet b (more content not included)... Normal [facility] CT BRAIN WO IVCONon 11-21-[address] BRAIN WO IVCON * * *Final Report* * * DATE OF EXAM: Nov 21 2023 10:47AM A1C 0504 - CT BRAIN WO IVCON / PROCEDURE REASON: Subarachnoid hemorrhage (HCC) * * * * Physician Interpretation * * * * EXAMINATION: CT BRAIN WO IVCON CLINICAL HISTORY: Posttraumatic subdural hematoma, follow-up exam TECHNIQUE: Serial axial images without IV contrast were obtained from the vertex to the foramen magnum. MQ: [id number] CT Radiation dose: Integrated Dose-Length Product (DLP) for this visit = 794.52 mGy*cm CT Dose Reduction Employed: No dose reduction techniques were required COMPARISON: 09/19/[address] RESULT: Post-operative change: None. Acute change: No evidence of an acute infarct or other acute parenchymal process. Hemorrhage: Previously noted acute on chronic right cerebral convexity subdural hematoma has resolved. No evidence of acute hemorrhagic component in the interval Mass Lesion / Mass Effect: There is no evidence of an intracranial mass or extraaxial fluid collection. No significant mass effect. Previously noted midline shift has resolved. Chronic change: None apparent. Parenchyma: Moderate parenchymal volume loss, advanced for the patient's age.. Ventricles: Moderate degree of generalized ventricular enlargement corresponding to moderate degree of central atrophy Paranasal sinuses and skull base: The visualized paranasal sinuses are grossly clear. The skull base and imaged soft tissues are unremarkable. IMPRESSION: Previously noted acute on chronic right cerebral convexity subdural hematoma has resolved. No evidence of acute hemorrhagic component in the interval Procedure noted midline shift has resolved. 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: PSCB Transcribe Date/Time: Nov 21 2023 3:43P Dictated by : CHRISTIE REES MD This examination was interpreted and the report reviewed and electronically signed by: CHRISTIE REES MD on Nov 21 2023 3:52PM EST [id number] Normal [facility] CNOVon 10-13-2023 CNOV Office Visit (NEAGCL M) LYRIC PADRON ([id number]) 1955 M Date Time Provider Department 10/13/23 11:00 AM KWADWO SRINIVASAN NEAGCLM During your visit today, we recorded the following information about you: Pulse Blood pressure Weight Height 79/minute 124/80 69.9 kg 1.651 m Kwadwo Srinivasan MD, PhD 10/13/2023 11:35 AM Signed NEUROSURGERY FOLLOW UP OFFICE NOTE Kwadwo Srinivasan MD, PhD Date of visit: October 13, 2023 Patient Name: Mr.Gary Augustin Padron Date of : 1955 Current Age: [age] year old Sex: male MRN/E# [id number] Last Office Visit: 09/22/2023 Chief Complaint: Patient presents with: Established Patient SUBJECTIVE: HPI The patient presented to [facility] ED on 08/11/2023 after being unsteady on his feet and did not remember events of the night prior. He noted he thought he fell and hit his head. He noted head pain with a laceration. Advanced imaging demonstrated a small tSAH. No surgical intervention was warranted at that time. He was also noted to have a Campoverde's sign. It was recommended that he follow up in 4 weeks with a repeat CT Brain and MRI cervical. At his last visit on 09/12/2023 he stated he felt he had been doing well since discharge. His noted that his confusion and memory had worsened since being discharged. He denied any other symptoms at that time. He denied any cervical pain. He noted feeling unsteady and had use of a cane. His noted that he fell a week ago out of a chair loosing his balance, but noted he did not hit his head. He noted taking tylenol if needed, but hasn't needed to. There was some new bleeding he has had in his right subdural space which was associated with very subtle right to left midline shift of the brain. Also concerning but a lower priority is marked cervical cord compression which I think is now mandating a dual diagnosis of cervical myelopathy. It was recommended that he consider a referral for a middle meningeal artery embolization. He declined at that time. It was recommended that he follow up in 1 month with a repeat CT brain. He noted worsening symptoms and was evaluated by Dr. Pedro in office on 09/22/2023 to which he underwent a Attempted right MMA embolization on 10/04/2023. Today he states he has been doing okay since his last visit. He and his note some continued confusion and forgetfulness. He denies any weakness or falls. His feels that last week he started dragging his right foot with ambulation, did not note any dragging at today's visit. He continues with use of cane. He denies any headaches, dizziness, lightheadedness, nausea, vomiting, speech, hearing or visual changes. He denies taking anything for pain at this time. He presents for evaluation and plan of care. Symptoms: memory difficulties and forgetfulness. Use of cane and unsteady. Smoker: endorses Diabetic: denies Anticoagulants / Antiplatelets: denies Occupation: retired PREVIOUS CONSERVATIVE TREATMENTS: Mobic Tylenol PREVIOUS SURGERY: None PAIN EVALUATION No data found in the last 1 encounters. PAST MEDICAL HISTORY Diagnosis Date Arthritis BPH with obstruction/lower urinary tract symptoms Rosacea Subarachnoid hemorrhage (HCC) 08/11/2023 PAST SURGICAL HISTORY Procedure Laterality Date PAST SURGICAL HISTORY OF flexible cystoscopy PAST SURGICAL HISTORY OF 1959 tonsillectomy PAST SURGICAL HISTORY OF 2018 left eye surgery TRANSURETHRAL ELEC-SURG PROSTATECTOM N/A 08/18/2021 TRANSURETHRAL ELEC-SURG PROSTATECTOM 2019 FAMILY HISTORY Problem Relation Age of Onset Arthritis Mother Cancer Mother melanoma Heart Mother Viral myocarditis. GI Father ulcers ALLERGIES No Known Allergies Current Outpatient Medications Medication Sig Dispense Refill ibuprofen (MOTRIN) 400 mg tablet Take by mouth. memantine (NAMENDA) 5 mg tablet Take 1 tablet by mouth two times a day. 60 tablet 2 terazosin (HYTRIN) 5 mg capsule Take 1 capsule by mouth daily at bedtime. 90 capsule 3 meloxicam (MOBIC) 15 mg tablet Take 1 tablet by mouth once daily. With food. 30 tablet 1 minocycline (MINOCIN, DYNACIN) 50 mg capsule Take 1 capsule by mouth twice daily. 180 capsule 3 pravastatin (PRAVACHOL) 40 mg tablet Take 1 tablet by mouth once daily. 90 tablet 3 acetaminophen (TYLENOL) 325 mg tablet Take 2 tablets by mouth every 6 hours as needed for Pain. 0 No current facility-administered medications for this visit. REVIEW OF SYSTEMS Review of Systems Constitutional: Negative for diaphoresis, fatigue and fever. HENT: Negative for congestion, sinus pressure and sore throat. Eyes: Negative for discharge and itching. Respiratory: Negative for cough, chest tightness and shortness of breath. Cardiovascular: Negative for chest pain, palpitations and leg swelling. Gastrointestinal: Negative for constipation, diarrhea, nausea and (more content not included)... Normal [facility] 10-12-2023 [facility] Telephone (NEAGCLM) LYRIC PADRON ([id number]) 1955 M Date Time Provider Department 10/12/23 KWADWO SRINIVASAN [facility] During your visit today, we recorded the following information about you: Brandin Kebede RN 10/12/2023 12:07 PM Signed Notified that Dr. Srinivasan is not requesting a repeat CT brain at this time. He is willing to assess patient in office for scheduled visit, and will determine if a repeat is warranted. 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 - memantine (NAMENDA) 5 mg tablet Take 1 tablet by mouth two times a day. - terazosin (HYTRIN) 5 mg capsule Take 1 capsule by mouth daily at bedtime. - meloxicam (MOBIC) 15 mg tablet Take 1 tablet by mouth once daily. With food. - minocycline (MINOCIN, DYNACIN) 50 mg capsule Take 1 capsule by mouth twice daily. - pravastatin (PRAVACHOL) 40 mg tablet Take 1 tablet by mouth once daily. - acetaminophen (TYLENOL) 325 mg tablet Take 2 tablets by mouth every 6 hours as needed for Pain. Problem List As Of Date 10/12/2023 Noted Resolved Benign non-nodular prostatic hyperplasia with l*01/01/2008 BLADDER NECK OBSTRUCTION [N32.0] 01/01/2008 Rosacea, Acne [L71.9] 02/09/2010 Pure hypercholesterolemia [E78.00] 02/26/2013 S/P TURP [Z90.79] 10/20/2021 Mild cognitive impairment [G31.84] 06/24/2022 Ataxia, unspecified [R27.0] 06/15/2022 Closed fracture of distal end of fibula [S82.83*12/22/2022 12/22/2022 Closed head injury [S09.90XA] 12/22/2022 Personal history of traumatic brain injury [Z87*06/15/2022 Subarachnoid hemorrhage (HCC) [I60.9] 08/11/2023 Subdural hematoma (HCC) [S06.5XAA] 09/19/2023 Encounter Status:Closed by BRANDIN KEBEDE on 10/12/23 [facility] ANES POSTPROC EVALon 023 ANES POSTPROC EVAL HNO ID: [id number] Author: Mainor Rosenberg MD Service: Anesthesiology Author Type: Anesthesiologist Type: Anesthesia Postprocedure Evaluation Filed: 10/04/2023 10:16 AM Note Text: POST ANESTHESIA EVALUATION NOTE : 1955 Procedure Summary Date: 10/04/23 Room / Location: [place] [facility] [place] / [place] [facility] [place] Anesthesia Start: 813 Anesthesia Stop: 1002 Procedure: PERCUTANEOUS TRANSCATHETER PERMANENT OCCLUSION OR EMBOLIZATION ANY METHOD NON-CENTRAL NERVOUS SYSTEM,HEAD/NECK (Right) Diagnosis: Subdural hematoma (HCC) (Subdural hematoma (HCC) [S06.5XAA]) Surgeons: Melissa Pedro MD Responsible Provider: Mainor Rosenberg MD Anesthesia Type: general ASA Status: 3 Anesthesia Type: general Airway Type: ETT Last Vitals Vitals Value Taken Time BP 130/82 10/04/23 1001 Temp 36.2 ?C (97.2 ?F) 10/04/23 1001 Pulse 84 10/04/23 1015 Resp 13 10/04/23 1015 SpO2 96 % 10/04/23 1015 Vitals shown include unfiled device data. Post Anesthesia Patient Status Patient Evaluation: PACU. PACU/ICU Patient Condition: stable. Neurological Status: sleepy but arousable. Pulmonary Status: breathing comfortably on supplemental oxygen Airway Control: returned to baseline unsupported. Cardiovascular Status: stable. Pain Management: clinically adequate Postoperative Hydration: acceptable. Intraoperative Events: no significant anesthesia events Post Operative Nausea/Vomiting Status: no significant post operative nausea or vomiting Recommendation: continue current plan of care. Anesthesia Observations No Documentation SIGNATURE: Mainor Rosenberg MD PATIENT NAME: Lyric Padron DATE: October 04, 2023 TIME: 10:16 AM CSN: [id number] [facility] ANES PRE-OPon 10-04-2023 ANES PRE-OP HNO ID: [id number] Author: Mainor Rosenberg MD Service: Anesthesiology Author Type: Anesthesiologist Type: Anesthesia Preprocedure Evaluation Filed: 10/04/2023 8:39 AM Note Text: ANESTHESIOLOGY DAY OF SURGERY NOTE : 1955 Procedure Information Date/Time: 10/04/23 0758 Procedure: PERCUTANEOUS TRANSCATHETER PERMANENT OCCLUSION OR EMBOLIZATION ANY METHOD NON-CENTRAL NERVOUS SYSTEM,HEAD/NECK (Right) Location: [place] [facility] / [place] [facility] [place] Surgeons: Melissa Pedro MD Estimated body mass index is 25.63 kg/m? as calculated from the following: Height as of 09/22/23: 165.1 cm (5' 5 ). Weight as of 09/22/23: 69.9 kg (154 lb). Most recent hematocrit and potassium results: Hematocrit 45.3 09/19/2023 Potassium 4.0 09/19/2023 Relevant Problems NEURO-PSYCH (+) Personal history of traumatic brain injury I - PHYSICAL EVALUATION AIRWAY Patient intubated: No. Tracheostomy tube not present Mallampati: II. TM distance: >3 FB. Neck ROM: full ROM without neurological symptoms. Mouth opening: adequate. Short neck: no. Thick neck: no II - ANESTHESIA PLAN ASA Score: 3 Anesthetic Plan: general Airway type: ETT NPO Status: adequate Anesthetic plan additional comments: Consent obtained for GA +/- arterial line. SBP goal 100-160, no neuro deficits on exam, patient denies motor/sensory deficits. Second IV post-induction. Plan to extubate, post-op dispo neuro ICU. Beta Che Monitoring Plan Monitoring plan: standard ASA. Post Procedure Analgesic Plan Postoperative analgesic plan: multimodal analgesia. Informed Consent Anesthetic risks, benefits, alternatives, personnel and consent discussed: yes. Patient / Responsible Libertarian agrees to proceed: yes Patient / Surrogate agrees to blood products: Yes Potential Anesthesia issues that may suggest increased risk of complications or contraindication to planned procedure: none. No vitals data found for the desired time range. Facility-Administered Medications as of 10/04/2023 Medication Dose Route Frequency - NaCl 0.9% iv infusion 100 mL/hr INTRAVENOUS CONTINUOUS Outpatient Medications as of 10/04/2023 Medication Sig - ibuprofen (MOTRIN) 400 mg tablet Take by mouth. - memantine (NAMENDA) 5 mg tablet Take 1 tablet by mouth two times a day. - terazosin (HYTRIN) 5 mg capsule Take 1 capsule by mouth daily at bedtime. - meloxicam (MOBIC) 15 mg tablet Take 1 tablet by mouth once daily. With food. - minocycline (MINOCIN, DYNACIN) 50 mg capsule Take 1 capsule by mouth twice daily. - pravastatin (PRAVACHOL) 40 mg tablet Take 1 tablet by mouth once daily. - acetaminophen (TYLENOL) 325 mg tablet Take 2 tablets by mouth every 6 hours as needed for Pain. I have interviewed and examined the patient. I have reviewed the medical record and/or the pre-anesthesia evaluation, pertinent labs, and test results. This contains updated information obtained within 48 hours of Surgery/Procedure. SIGNATURE: Mainor Rosenberg MD PATIENT NAME: Lyric Padron DATE: October 04, 2023 TIME: 7:35 AM CSN: [id number] [facility] BRIEF OP NOTon 10-04-2023 BRIEF OP NOT HNO ID: [id number] Author: Melissa Pedro MD Service: Neuroendovascular Intervention Author Type: Physician Type: Brief Op Note Filed: 10/04/2023 10:29 AM Note Text: BRIEF OP/PROCEDURE NOTE NEURO INTERVENTIONAL PROCEDURE DATE: October 04, 2023 LOG ID: [id number] Surgery/Procedure Date: 10/04/2023 Incision/Procedure Start Time: 8:51 AM Incision Close/Procedure End Time: 9:37 AM Anesthesia: General PRIMARY PROCEDURALIST: Melissa Pedro MD TITLE SEARCH MANAGER(S): BROCK RT(R) PROCEDURE: Attempted right MMA embolization Indications: R acute on chronic subdural hematoma Access Site: R dTRA, 6 Fr, PRE-PROCEDURE DIAGNOSIS: R acute on chronic subdural hematoma POST-PROCEDURE DIAGNOSIS: same FINDINGS: The right middle meningeal artery is solely supplied by the right ophthalmic artery. Attempted access to the origin of the right MMA for coil embolization, however could not get past its shared origin with the ciliary artery. ESTIMATED BLOOD LOSS: Scant COMPLICATIONS: None RADIATION DOSE: Exceeded 5 Gy - No SPECIMENS: Not Applicable SIGNATURE: Melissa Pedro MD PATIENT NAME: Lyric Padron DATE: October 04, 2023 TIME: 9:45 AM Note - post anesthesia exam shows normal vision OU to finger counting. Normal [facility] NIL INTERNAL/CEREBRAL UNIon 10-04-2023 NIL INTERNAL/CEREBRAL UNI * * *Final Report* * * DATE OF EXAM: Oct 04 2023 9:54AM A6A 5130 - NIL INTERNAL/CEREBRAL UNI - RIGHT / PROCEDURE REASON: subdural hematoma * * * * Physician Interpretation * * * * INDICATION: The patient is a 68 year old man with right chronic subdural hematoma. Diagnostic angiography and embolization if possible was requested. The patient's past medical history is notable for mild cognitive impairment and traumatic brain injury post fall. INFORMED CONSENT: The risks, benefits, treatment options and complications were discussed with the patient and his spouse, who agreed to proceed. All questions were answered. Following induction of anesthesia, bilateral groins were prepped and draped bilaterally in the usual sterile fashion. PRE-PROCEDURE DIAGNOSIS: right chronic subdural hematoma POST-PROCEDURE DIAGNOSIS: same PROCEDURE: 1. Ultrasound-guided arterial access 2. Selective catheterization and angiography of the following arteries: * right common carotid artery, cervical and cranial views * right external carotid artery, cranial views * right internal carotid artery, cranial views 3. Super-selective catheterization and angiography of the following arteries: * right ophthalmic artery ANESTHESIA: General anesthesia, patient intubated for airway protection; 10mL 1% lidocaine at arterial access site TIME OUT TIME: 846 PROCEDURE START TIME: 847 PROCEDURE END TIME: 943 ATTENDING: Melissa Pedro MD The procedure was performed by the attending without an assistant federal public defender. ANGIOGRAPHY MATERIALS: Guide catheter: 6 Fr Rist Diagnostic/ introducer catheter: 5 Sammarinese Hernández catheter Guidewire: 0.035 angled tapered Glidewire Microcatheter: Headway Duo Microwire: 0.014 Synchro-2 Soft microwire Fluoroscopic Radiation Summary: Plane A, Air Kerma: 474.0 mGy Plane B, Air Kerma: 221.0 mGy Dose Area Product (DAP): Fluoro time: 18:12 min:sec arterial: 90 ml of OMNIPAQUE 300 APPROACH: The patient was brought to the angiography suite and placed in supine position. The right wrist and forearm were prepped and draped in the usual standard fashion, 1% lidocaine was used for local anesthetic. The radial artery access site was localized 2 cm proximal to the radial styloid by palpation. The right radial artery was then sonographically evaluated: Right radial artery: Patent and normal The radial artery was judged appropriate for access, and a permanent image of the artery was stored. Real-time ultrasound was then used to visualize needle entry into the vessel, and vascular access was obtained in the right radial artery in the distal volar forearm utilizing a radial artery puncture set. A 6 Sammarinese radial slender sheath was inserted and connected to heparinized saline flush. A vasodilatory medication infusion consisting of nitroglycerine (200 mcg) and verapamil 2.5 mg was infused intra-arterially through the radial sheath over 2 minutes. A 6 Fr Rist was used in conjunction with a 0.035 Glidewire and a 5Fr Hernández catheter to select the right common carotid artery. The glidewire was removed, and angiography was performed, with standard cervical and cranial views. Under fluoroscopic roadmap control, the glidewire was reintroduced to select the external carotid artery. The wire was removed and angiography was performed, with standard cranial views. This confirmed absence of any supply from the right external carotid artery to the right middle meningeal artery. At this time, selective catheterization of the right internal carotid artery was then performed, and angiography demonstrated the right middle meningeal artery's origin from the right ophthalmic artery. Fluoroscopic roadmap control was then obtained. A Headway Duo microcatheter in conjunction with a 0.014 Synchro 2 microwire was advanced through the guiding catheter distally into the right ophthalmic artery, in attempt to catheterize the right middle meningeal artery with intent for coil embolization of its origin. After several attempts, the microcatheter was successfully advanced to the distal ophthalmic artery. Superselective angiography via the microcatheter then demonstrated a highly tortuous course of the proximal recurrent meningeal artery, with additional anastomosis and supply to the eye in its distal course to the middle meningeal artery. At this time, the anatomy suggests significantly higher risks to the right eye than previously estimated, if attempts were to be made to attempt access to the right middle meningeal artery. As such, as a potential outcome previously discussed with the patient and family in the event of unfavorable anatomy for a safe intervention, the procedure was stopped. Final angiography was performed over the head to ensure vacular integrity. All devices were then removed from the patient. Hemostasis was achieved using a radial hemostasis band. There were no alba (more content not included)... Normal [facility] NIL IGGY UNI EXT CAROTID H/No n 10-04-2023 NIL IGGY UNI EXT CAROTID H/N * * *Final Report* * * DATE OF EXAM: Oct 04 2023 9:54AM A6A 1046 - NIL IGGY UNI EXT CAROTID H/N - RIGHT / PROCEDURE REASON: subdural hematoma * * * * Physician Interpretation * * * * INDICATION: The patient is a 68 year old man with right chronic subdural hematoma. Diagnostic angiography and embolization if possible was requested. The patient's past medical history is notable for mild cognitive impairment and traumatic brain injury post fall. INFORMED CONSENT: The risks, benefits, treatment options and complications were discussed with the patient and his spouse, who agreed to proceed. All questions were answered. Following induction of anesthesia, bilateral groins were prepped and draped bilaterally in the usual sterile fashion. PRE-PROCEDURE DIAGNOSIS: right chronic subdural hematoma POST-PROCEDURE DIAGNOSIS: same PROCEDURE: 1. Ultrasound-guided arterial access 2. Selective catheterization and angiography of the following arteries: * right common carotid artery, cervical and cranial views * right external carotid artery, cranial views * right internal carotid artery, cranial views 3. Super-selective catheterization and angiography of the following arteries: * right ophthalmic artery ANESTHESIA: General anesthesia, patient intubated for airway protection; 10mL 1% lidocaine at arterial access site TIME OUT TIME: 846 PROCEDURE START TIME: 847 PROCEDURE END TIME: 943 ATTENDING: Melissa Pedro MD The procedure was performed by the attending without an assistant federal public defender. ANGIOGRAPHY MATERIALS: Guide catheter: 6 Fr Rist Diagnostic/ introducer catheter: 5 Sammarinese Hernández catheter Guidewire: 0.035 angled tapered Glidewire Microcatheter: Headway Duo Microwire: 0.014 Synchro-2 Soft microwire Fluoroscopic Radiation Summary: Plane A, Air Kerma: 474.0 mGy Plane B, Air Kerma: 221.0 mGy Dose Area Product (DAP): Fluoro time: 18:12 min:sec arterial: 90 ml of OMNIPAQUE 300 APPROACH: The patient was brought to the angiography suite and placed in supine position. The right wrist and forearm were prepped and draped in the usual standard fashion, 1% lidocaine was used for local anesthetic. The radial artery access site was localized 2 cm proximal to the radial styloid by palpation. The right radial artery was then sonographically evaluated: Right radial artery: Patent and normal The radial artery was judged appropriate for access, and a permanent image of the artery was stored. Real-time ultrasound was then used to visualize needle entry into the vessel, and vascular access was obtained in the right radial artery in the distal volar forearm utilizing a radial artery puncture set. A 6 Sammarinese radial slender sheath was inserted and connected to heparinized saline flush. A vasodilatory medication infusion consisting of nitroglycerine (200 mcg) and verapamil 2.5 mg was infused intra-arterially through the radial sheath over 2 minutes. A 6 Fr Rist was used in conjunction with a 0.035 Glidewire and a 5Fr Hernández catheter to select the right common carotid artery. The glidewire was removed, and angiography was performed, with standard cervical and cranial views. Under fluoroscopic roadmap control, the glidewire was reintroduced to select the external carotid artery. The wire was removed and angiography was performed, with standard cranial views. This confirmed absence of any supply from the right external carotid artery to the right middle meningeal artery. At this time, selective catheterization of the right internal carotid artery was then performed, and angiography demonstrated the right middle meningeal artery's origin from the right ophthalmic artery. Fluoroscopic roadmap control was then obtained. A Headway Duo microcatheter in conjunction with a 0.014 Synchro 2 microwire was advanced through the guiding catheter distally into the right ophthalmic artery, in attempt to catheterize the right middle meningeal artery with intent for coil embolization of its origin. After several attempts, the microcatheter was successfully advanced to the distal ophthalmic artery. Superselective angiography via the microcatheter then demonstrated a highly tortuous course of the proximal recurrent meningeal artery, with additional anastomosis and supply to the eye in its distal course to the middle meningeal artery. At this time, the anatomy suggests significantly higher risks to the right eye than previously estimated, if attempts were to be made to attempt access to the right middle meningeal artery. As such, as a potential outcome previously discussed with the patient and family in the event of unfavorable anatomy for a safe intervention, the procedure was stopped. Final angiography was performed over the head to ensure vacular integrity. All devices were then removed from the patient. Hemostasis was achieved using a radial hemostasis band. There were no (more content not included)... Normal [facility] PT panel Coag (PPP)on 2022 INR Coag (PPP) [Relative time] 1.0 {INR} Normal 0.9-1.3 [facility] Comment on above: Order Comment: Speci men Type: BLOOD SPECIMENOrdering Facility: [facility] Address: [place] [address] Result Comment: Magy min K Antagonist (VKA) Therapeutic Range: INR 2 to 3 (Target INR of 2.5) Note: For patients treated with VKA drugs, such as warfarin, the [place] College [employer]icians 2012 Guideline recommends a therapeutic INR range of 2 to 3 (target INR of 2.5). This recommendation includes high-risk patients with antiphospholipid syndrome with previous arterial or venous thromboembolism, current-generation mechanical or bioprosthetic aortic heart valve replacement. Note: Patients with mechanical aortic valve replacement and additional risk factors for thromboembolic events (atrial fibrillation, previous thromboembolism, LV dysfunction, hypercoagulable conditions) or an older generation mechanical AVR (i.e., ball in-Cage) or any mechanical MVR should have a INR therapeutic range of 2.5 to 3.5 (target INR of 3). Sarah GH, et al. Chest 2012, 141:7S-47S Zayda RA, et al. [facility] 2017, 70: 252-289 Performed By: #### 3 4528-0 ####[facility] LABORATORYCLIA [id number] [address] STATES OF [facility] PT Coag (PPP) [Time] 10.5 s Normal 9.7-13.0 [facility] Comment on above: Order Comment: Speci men Type: BLOOD SPECIMENOrdering Facility: [facility] Address: [address] [place] [address] [place] [address] Performed By: #### 3 4528-0 ####[facility] LABORATORYCLIA [id number] [address] CNOVon 09-22-2023 CNOV Office Visit ([facility]) LYRIC PADRON ([id number]) 1955 M Date Time Provider Department 09/22/23 1:00 PM MELISSA PEDRO [facility] During your visit today, we recorded the following information about you: Pulse Respiration Blood pressure Weight 72/minute 16/minute 120/81 69.9 kg Height 1.651 m Melissa Pedro MD 09/22/2023 1:05 PM Signed You have a blood collection between the underside of the skull and the brain on the right side(s) of your head. A blood collection in that location is known as a subdural hematoma. When a subdural hematoma persists after some time, it is usually due to tiny, new blood vessels that formed after an injury. These tiny blood vessels tend to be leaky, which is what prevents the blood from clearing by itself - much like trying to drain a sink with a leaky faucet. We can block off these tiny blood vessels through a procedure called middle meningeal artery embolization . During a middle meningeal artery embolization, we bring in a small catheter (a thin tube) from the wrist or the top of leg (groin) into the body's arteries, which is its natural piping system. We guide the catheter to where the leaky blood vessels take off, then block them off using either microscopic particles, or a glue-like substance. You will be under anesthesia for the procedure, and we will plan to admit you to the hospital after the procedure for an overnight stay. Our nurses from the Neurointerventional Lab will reach out to you to schedule the procedure. Stroke Signs and Symptoms: *Stroke is a medical emergency. Know the warning signs of stroke: Sudden numbness or weakness of the face, arm or leg, especially on one side of the body Sudden confusion, trouble speaking, or understanding Sudden trouble seeing in one eye, or both eyes Sudden trouble walking, dizziness, loss of balance, or coordination Sudden severe headache with no known cause *If you, or someone with you, has one or more of these signs, don't delay! Immediately call 911, or the emergency medical services (EMS) number so an ambulance can be sent for you. Also, check the time so that you will know when the symptoms first appeared. It is very important to take immediate action, every second counts. Medical treatment may be available if action is taken early enough. Melissa Pedro MD 09/23/2023 11:41 AM Signed [facility] Initial Visit Lyric Dawkins Vito [facility]#: [id number] Date of Service: 09/22/2023 Primary Care Provider: Geoffrey Adams MD The patient was referred by Iraj Bethea MD for opinion regarding chronic subdural hematoma, possible MMA embolization. I will provide a written report of my findings to the referring through letter, e communication, or epic. OUTPATIENT CONSULTATION Reason for Visit: Chronic subdural hematoma Handedness: left Clinic note by Dr Srinivasan on 09/12/23: The patient presented to [facility] ED on 08/11/2023 after being unsteady on his feet and did not remember events of the night prior. He noted he thought he fell and hit his head. He noted head pain with a laceration. Advanced imaging demonstrated a small tSAH. No surgical intervention was warranted at that time. He was also noted to have a Campoverde's sign. It was recommended that he follow up in 4 weeks with a repeat CT Brain and MRI cervical. Today he states he feel he has been doing well since discharge. His notes that his confusion and memory has worsened since being discharged. He denies any other symptoms at this time. He denies any cervical pain. He notes feeling unsteady and has use of a cane. His noted that he fell a week ago out of a chair loosing his balance, but noted he did not hit his head. He notes taking tylenol if needed, but hasn't needed to. He presents for imaging review, evaluation and plan of care. Symptoms: memory difficulties and forgetfulness. Falls, unsteady. Smoker: endorses Diabetic: denies Anticoagulants / Antiplatelets: denies Occupation: retired Interval history: - Never had any headache despite SDH - When admitted to hospital, sundowning always an issue - No headache, vertigo, lightheadedness, nausea or vomiting. - No transient or persistent visual, language, speech, swallowing, motor, sensory, coordination, or gait deficits. Past Medical History: ACTIVE PROBLEM LIST Benign Non-Nodular Prostatic Hyperplasia With Lower Urinary Tract Symptoms Bladder Neck Obstruction Rosacea, Acne Pure Hypercholesterolemia S/P Turp Mild Cognitive Impairment Ataxia, Unspecified Closed Head Injury Personal History of Traumatic Brain Injury Subarachnoid Hemorrhage (Hcc) Subdural Hematoma (Hcc) PAST SURGICAL HISTORY Procedure Laterality Date PAST SURGICAL HISTORY OF flexible cystoscopy PAST SURGICAL HISTORY OF 1959 tonsillectomy PAST SURGICAL HISTORY (more content not included)... Normal [facility] [place] 09-22-2023 OLIVIER Telephone ([facility]AG[facility]) LEISURE,LYRIC Dawkins ([id number]) 1955 M Date Time Provider Department 09/22/23 KWADWO SRINIVASAN [facility] During your visit today, we recorded the following information about you: Brandin Kebede RN 09/22/2023 10:11 AM Signed called to clarify who would be preforming the procedure. She was asking about a bran and I notified her I was unsure who Bran was. Advised her their visit was with Dr. Pedro today. She asked further questions regarding Dr. Pedro and wanted to make sure we knew he had early signs of dementia. Brandin Kebede RN Allergies As of Date: 09/22/2023 (No Known Allergies) Date Reviewed: 09/19/2023 Reviewed by: Patricia Denson RN - Fully Assessed Reason for Visit: Patient Question [7095] Prescriptions as of 09/22/2023 - ibuprofen (MOTRIN) 400 mg tablet Take by mouth. - memantine (NAMENDA) 5 mg tablet Take 1 tablet by mouth two times a day. - terazosin (HYTRIN) 5 mg capsule Take 1 capsule by mouth daily at bedtime. - meloxicam (MOBIC) 15 mg tablet Take 1 tablet by mouth once daily. With food. - minocycline (MINOCIN, DYNACIN) 50 mg capsule Take 1 capsule by mouth twice daily. - pravastatin (PRAVACHOL) 40 mg tablet Take 1 tablet by mouth once daily. - acetaminophen (TYLENOL) 325 mg tablet Take 2 tablets by mouth every 6 hours as needed for Pain. Problem List As Of Date 09/22/2023 Noted Resolved Benign non-nodular prostatic hyperplasia with l*01/01/2008 BLADDER NECK OBSTRUCTION [N32.0] 01/01/2008 Rosacea, Acne [L71.9] 02/09/2010 Pure hypercholesterolemia [E78.00] 02/26/2013 S/P TURP [Z90.79] 10/20/2021 Mild cognitive impairment [G31.84] 06/24/2022 Ataxia, unspecified [R27.0] 06/15/2022 Closed fracture of distal end of fibula [S82.83*12/22/2022 12/22/2022 Closed head injury [S09.90XA] 12/22/2022 Personal history of traumatic brain injury [Z87*06/15/2022 Subarachnoid hemorrhage (HCC) [I60.9] 08/11/2023 Subdural hematoma (HCC) [S06.5XAA] 09/19/2023 Encounter Status:Closed by BRANDIN KEBEDE on 09/22/23 [facility] [place] 09-20-2023 CNPN Telephone ([facility]AG[facility]) LYRIC PADRON ([id number]) 1955 M Date Time Provider Department 09/20/23 KWADWO SRINIVASAN NEAGCLM During your visit today, we recorded the following information about you: Brandin Kebede RN 09/20/2023 1:59 PM Signed Patient's called and was requesting the number and referral for a MMA embolization. It appeared patient did present to the ED yesterday as recommended, but left AMA and neurosurgery recommended admission. stated he does not want to go back as I recommended. Discussed at length and she and she states her is aware of recommendations. Notified her I would have Eneida contact her for information regarding visit with Dr Thompson. Advised again to present to the ED is new or worsening symptoms. Brandin Kebede RN Allergies As of Date: 09/20/2023 (No Known Allergies) Date Reviewed: 09/19/2023 Reviewed by: Patricia Denson RN - Fully Assessed Reason for Visit: Patient Question [4087] Prescriptions as of 09/20/2023 - ibuprofen (MOTRIN) 400 mg tablet Take by mouth. - memantine (NAMENDA) 5 mg tablet Take 1 tablet by mouth two times a day. - terazosin (HYTRIN) 5 mg capsule Take 1 capsule by mouth daily at bedtime. - meloxicam (MOBIC) 15 mg tablet Take 1 tablet by mouth once daily. With food. - minocycline (MINOCIN, DYNACIN) 50 mg capsule Take 1 capsule by mouth twice daily. - pravastatin (PRAVACHOL) 40 mg tablet Take 1 tablet by mouth once daily. - acetaminophen (TYLENOL) 325 mg tablet Take 2 tablets by mouth every 6 hours as needed for Pain. Problem List As Of Date 09/20/2023 Noted Resolved Benign non-nodular prostatic hyperplasia with l*01/01/2008 BLADDER NECK OBSTRUCTION [N32.0] 01/01/2008 Rosacea, Acne [L71.9] 02/09/2010 Pure hypercholesterolemia [E78.00] 02/26/2013 S/P TURP [Z90.79] 10/20/2021 Mild cognitive impairment [G31.84] 06/24/2022 Ataxia, unspecified [R27.0] 06/15/2022 Closed fracture of distal end of fibula [S82.83*12/22/2022 12/22/2022 Closed head injury [S09.90XA] 12/22/2022 Personal history of traumatic brain injury [Z87*06/15/2022 Subarachnoid hemorrhage (HCC) [I60.9] 08/11/2023 Subdural hematoma (HCC) [S06.5XAA] 09/19/2023 Encounter Status:Closed by BRANDIN KEBEDE on 09/20/23 [facility] ALLIED HEALTHon 09-19-2023 ALLIED HEALTH HNO ID: [id number] Author: Ashley Sofia RT(Sandra) Service: Radiology Author Type: Technologist Type: Allied Health Filed: 09/19/2023 5:34 PM Note Text: Radiology Service Progress Note PATIENT NAME: Lyric Padron DATE OF SERVICE: September 19, 2023 TIME: 5:34 PM PATIENT IDENTITY VERIFICATION COMPLETED USING TWO (2) IDENTIFIERS: Name and Date of confirmed by patient verbally and Name and Date of confirmed by identification band. FALL SCREENING: Has the patient had 2 falls in the last year or 1 fall with injury or currently using an Ambulatory Assistive Device (Walker, Cane, Wheelchair, Crutches, etc.)? Emergency Room Patient: Screened in ED PATIENT GENDER DATA: Male PATIENT RELEVANT IMPLANT DATA REVIEWED: Not Applicable RADIOLOGY DEPARTMENT: CT; Exam(s) Completed: Brain PERIPHERAL IV DATA: Not applicable SIGNED BY: Ashley Sofia RT(R) September 19, 2023 5:34 PM Normal [facility] Basic metabolic 2000 panelon 09-19-2023 Anion gap [Moles/Vol] 10 mmol/L Normal 9-18 [facility] Comment on above: Order Comment: Speci men Type: BLOOD SPECIMENOrdering Facility: [facility] Address: [address] [place] [address] Performed By: #### 2 4321-2 ####[facility]ORATORYCLIA [id number] [place] [address] [place] Calcium [Mass/Vol] 9.4 mg/dL Normal 8.5-10.2 [facility] Comment on above: Order Comment: Speci men Type: BLOOD SPECIMENOrdering Facility: [facility] Address: [address] [place] [address] Performed By: #### 2 4321-2 ####[facility]ORATORYCLIA [id number] [place] [address] [place] Chloride [Moles/Vol] 103 mmol/L Normal 97-105 [facility] Comment on above: Order Comment: Speci men Type: BLOOD SPECIMENOrdering Facility: [facility] Address: [address] [place] [address] Performed By: #### 2 4321-2 ####[facility]ORATORYCLIA [id number] [place] [address] [place] CO2 [Moles/Vol] 23 mmol/L Normal 22-30 [facility] Comment on above: Order Comment: Speci men Type: BLOOD SPECIMENOrdering Facility: [facility] Address: [address] [place] [address] Performed By: #### 2 4321-2 ####[facility]ORATORYCLIA [id number] [place] [address] [place] Creatinine [Mass/Vol] 0.77 mg/dL Normal 0.73-1.22 [facility] Comment on above: Order Comment: Speci men Type: BLOOD SPECIMENOrdering Facility: [facility] Address: [address] [place] [address] Performed By: #### 2 4321-2 ####[facility] LABORATORYCLIA [id number] [place] [id number] [facility] Creatinine and Glomerular filtration rate.predicted panel (S/P/Bld) 97 mL/min/1.73m??? Normal >=60 [facility] Comment on above: Order Comment: George men Type: BLOOD SPECIMENOrdering Facility: [facility] Address: [address] [place] [address] Result Comment: Katernie mated Glomerular Filtration Rate (eGFR) is calculated using the 2020 CKD-EPI creatinine equation. This equation utilizes serum creatinine, sex, and age as parameters. The creatinine assay has traceable calibration to isotope dilution-mass spectrometry. Refer to KDIGO guidelines for clinical interpretation. In patients with unstable renal function, e.g. those with acute kidney injury, the eGFR may not accurately reflect actual GFR. Performed By: #### 2 4321-2 ####[facility] LABORATORYIA [id number] [place] [address] [place] Glucose [Mass/Vol] 97 mg/dL Normal 74-99 [facility] Comment on above: Order Comment: George saldivar Type: BLOOD SPECIMENOrdering Facility: [facility] Address: [address] [place] [address] Result Comment: The [place] Diabetes Association (ADA) provides guidance for cutoff values for fasting glucose and random glucose. The ADA defines fasting as no caloric intake for at least 8 hours. Fasting plasma glucose results between 100 to 125 mg/dL indicate increased risk for diabetes (prediabetes). Fasting plasma glucose results greater than or equal to 126 mg/dL meet the criteria for diagnosis of diabetes. In the absence of unequivocal hyperglycemia, results should be confirmed by repeat testing. In a patient with classic symptoms of hyperglycemia or hyperglycemic crisis, random plasma glucose results greater than or equal to 200 mg/dL meet the criteria for diagnosis of diabetes. Reference: Standards of Medical Care in Diabetes 2016, Citizen Of The [place] Diabetes Association. Diabetes Care. 2016.39(Suppl 1). Performed By: #### 2 4321-2 ####[facility] LABORATORYCLIA [id number] [address] [place] Potassium [Moles/Vol] 4.0 mmol/L Normal 3.7-5.1 [facility] Comment on above: Order Comment: Speci men Type: BLOOD SPECIMENOrdering Facility: [facility] Address: [address] [place] [address] Performed By: #### 2 4321-2 ####[facility]ATORYCLIA [id number] [address] [place] Sodium [Moles/Vol] 136 mmol/L Normal 136-144 [facility] Comment on above: Order Comment: Speci men Type: BLOOD SPECIMENOrdering Facility: [facility] Address: [address] [place] [address] Performed By: #### 2 4321-2 ####[facility]ATORYCLIA [id number] [address] [place] Urea nitrogen [Mass/Vol] 8 mg/dL Low 9-24 [facility] Comment on above: Order Comment: Speci men Type: BLOOD SPECIMENOrdering Facility: [facility] Address: [address] [place] [address] Performed By: #### 2 4321-2 ####[facility]ATORYCLIA [id number] [address] [place] CBC W Auto Differential pane l (Bld)on 09-19-2023 Basophils (Bld) [#/Vol] 0.06 10*3/uL Normal <0.11 [facility] Comment on above: Order Comment: Speci men Type: BLOOD SPECIMENOrdering Facility: [facility] Address: [address] [place] [address] Performed By: #### 5 7021-8 ####[facility]ATORYCLIA [id number] [address] [place] Basophils/100 WBC (Bld) 0.6 % Normal [facility] Comment on above: Order Comment: Speci men Type: BLOOD SPECIMENOrdering Facility: [facility] Address: [address] [place] [address] Performed By: #### 5 7021-8 ####[facility]ATORYCLIA [id number] [address] Differential cell count method Nom (Bld) Auto Normal [facility] Comment on above: Order Comment: Speci men Type: BLOOD SPECIMENOrdering Facility: [facility] Address: [address] [place] [address] Performed By: #### 5 7021-8 ####[facility]ATORYCLIA [id number] [address] [place] Eosinophils (Bld) [#/Vol] 0.16 10*3/uL Normal <0.46 [facility] Comment on above: Order Comment: Speci men Type: BLOOD SPECIMENOrdering Facility: [facility] Address: [address] [place] [address] Performed By: #### 5 7021-8 ####[facility]ATORYCLIA [id number] [address] Eosinophils/100 WBC (Bld) 1.5 % Normal [facility] Comment on above: Order Comment: Speci men Type: BLOOD SPECIMENOrdering Facility: [facility] Address: [address] [place] [address] Performed By: #### 5 7021-8 ####[facility]ATORYCLIA [id number] [address] Erythrocyte distribution width (RBC) [Ratio] 11.9 % Normal 11.5-15.0 [facility] Comment on above: Order Comment: Speci men Type: BLOOD SPECIMENOrdering Facility: [facility] Address: [address] [place] [address] Performed By: #### 5 7021-8 ####[facility]ATORYCLIA [id number] [address] Hematocrit (Bld) [Volume fraction] 45.3 % Normal 39.0-51.0 [facility] Comment on above: Order Comment: Speci men Type: BLOOD SPECIMENOrdering Facility: [facility] Address: [address] [place] [address] Performed By: #### 5 7021-8 ####[facility]ATORYCLIA [id number] [place] [address] [place] Hemoglobin (Bld) [Mass/Vol] 15.7 g/dL Normal 13.0-17.0 [facility] Comment on above: Order Comment: Speci men Type: BLOOD SPECIMENOrdering Facility: [facility] Address: [address] [place] [address] Performed By: #### 5 7021-8 ####[facility]ATORYCLIA [id number] [place] [address] [place] Immature granulocytes (Bld) [#/Vol] 0.04 10*3/uL Normal <0.10 [facility] Comment on above: Order Comment: Speci men Type: BLOOD SPECIMENOrdering Facility: [facility] Address: [address] [place] [address] Performed By: #### 5 7021-8 ####[facility]ATORYCLIA [id number] [address] [place] Immature granulocytes/100 WBC (Bld) 0.4 % Normal [facility] Comment on above: Order Comment: Speci men Type: BLOOD SPECIMENOrdering Facility: [facility] Address: [address] [place] [address] Performed By: #### 5 7021-8 ####[facility]ATORYCLIA [id number] [place] [address] [place] Lymphocytes (Bld) [#/Vol] 3.23 10*3/uL Normal 1.00-4.00 [facility] Comment on above: Order Comment: Speci men Type: BLOOD SPECIMENOrdering Facility: [facility] Address: [address] [place] [address] Performed By: #### 5 7021-8 ####[facility]ORYCLIA [id number] [address] [place] Lymphocytes/100 WBC (Bld) 30.2 % Normal [facility] Comment on above: Order Comment: Speci men Type: BLOOD SPECIMENOrdering Facility: [facility] Address: [address] [place] [address] Performed By: #### 5 7021-8 ####[facility]ATORYCLIA [id number] [address] MCH (RBC) [Entitic mass] 30.7 pg Normal 26.0-34.0 [facility] Comment on above: Order Comment: Speci men Type: BLOOD SPECIMENOrdering Facility: [facility] Address: [address] [place] [address] Performed By: #### 5 7021-8 ####[facility]ATORYCLIA [id number] [address] [place] MCHC (RBC) [Mass/Vol] 34.7 g/dL Normal 30.5-36.0 [facility] Comment on above: Order Comment: Speci men Type: BLOOD SPECIMENOrdering Facility: [facility] Address: [address] [place] [address] Performed By: #### 5 7021-8 ####[facility]ATORYCLIA [id number] [address] [place] [facility] MCV (RBC) [Entitic vol] 88.5 fL Normal 80.0-100.0 [facility] Comment on above: Order Comment: Speci men Type: BLOOD SPECIMENOrdering Facility: [facility] Address: [address] [place] [address] Performed By: #### 5 7021-8 ####[facility]ATORYCLIA [id number] [address] Monocytes (Bld) [#/Vol] 0.71 10*3/uL Normal <0.87 [facility] Comment on above: Order Comment: Speci men Type: BLOOD SPECIMENOrdering Facility: [facility] Address: [address] [place] [address] Performed By: #### 5 7021-8 ####[facility]ATORYCLIA [id number] [address] Monocytes/100 WBC (Bld) 6.6 % Normal [facility] Comment on above: Order Comment: Speci men Type: BLOOD SPECIMENOrdering Facility: [facility] Address: [address] [place] [address] Performed By: #### 5 7021-8 ####[facility]ORATORYCLIA [id number] [place] [address] [place] Neutrophils (Bld) [#/Vol] 6.48 10*3/uL Normal 1.45-7.50 [facility] Comment on above: Order Comment: Speci men Type: BLOOD SPECIMENOrdering Facility: [facility] Address: [address] [place] [address] Performed By: #### 5 7021-8 ####[facility]ORYCLIA [id number] [place] [address] [place] Neutrophils/100 WBC (Bld) 60.7 % Normal [facility] Comment on above: Order Comment: Speci men Type: BLOOD SPECIMENOrdering Facility: [facility] Address: [address] [place] [address] Performed By: #### 5 7021-8 ####[facility]ORYCLIA [id number] [place] [address] [place] Nucleated RBC (Bld) [#/Vol] 10*3/uL Normal <0.01 [facility] Comment on above: Order Comment: Speci men Type: BLOOD SPECIMENOrdering Facility: [facility] Address: [address] [place] [address] Performed By: #### 5 7021-8 ####[facility]ORYCLIA [id number] [place] [address] [place] Nucleated RBC/100 WBC (Bld) [Ratio] 0.0 /100 WBC Normal [facility] Comment on above: Order Comment: Speci men Type: BLOOD SPECIMENOrdering Facility: [facility] Address: [address] [place] [address] Performed By: #### 5 7021-8 ####[facility]ORYCLIA [id number] Platelet mean volume (Bld) [Entitic vol] 9.3 fL Normal 9.0-12.7 [facility] Comment on above: Order Comment: Speci men Type: BLOOD SPECIMENOrdering Facility: [facility] Address: [address] [place] [address] Performed By: #### 5 7021-8 ####[facility]ORYCLIA [id number] [address] [place] Platelets (Bld) [#/Vol] 250 10*3/uL Normal 150-400 [facility] Comment on above: Order Comment: Speci men Type: BLOOD SPECIMENOrdering Facility: [facility] Address: [address] [place] [address] Performed By: #### 5 7021-8 ####[facility] [id number] [address] RBC (Bld) [#/Vol] 5.12 10*6/uL Normal 4.20-6.00 [facility] Comment on above: Order Comment: Speci men Type: BLOOD SPECIMENOrdering Facility: [facility] Address: [address] [place] [address] Performed By: #### 5 7021-8 ####[facility]ORYCLIA [id number] [address] [place] WBC (Bld) [#/Vol] 10.68 10*3/uL Normal 3.70-11.00 [facility] Comment on above: Order Comment: Speci men Type: BLOOD SPECIMENOrdering Facility: [facility] Address: [address] [place] [address] Performed By: #### 5 7021-8 ####[facility]ATORYCLIA [id number] [address] [place] 09-19-2023 OLIVIER Telephone (NEAGCLM) LEISURE,LYRIC Dawkins ([id number]) 1955 M Date Time Provider Department 09/19/23 KWADWO SRINIVASAN During your visit today, we recorded the following information about you: Brandin Kebede RN 09/19/2023 10:59 AM Signed The patients called with concerns. She noted that he fell on tuesday bending over to get the dogs food. She notes he stated he did not hit his head, but she is unsure. She noted it appeared that he didn't. She felt his weakness has been worsening. She notes that he has denied any other concerning symptoms, but she notes she feels he wouldn't tell her if he did have any concerning symptoms going on. Advised that he be evaluated at the ED due to his current history and per Dr. Thomas recommendations from last office visit. She expressed understanding. Brandin Kebede RN Allergies As of Date: 09/19/2023 (No Known Allergies) Date Reviewed: 09/12/2023 Reviewed by: Susanne Bautista Ma - Fully Assessed Reason for Visit: Patient Update [1234] Prescriptions as of 09/19/2023 - ibuprofen (MOTRIN) 400 mg tablet Take by mouth. - memantine (NAMENDA) 5 mg tablet Take 1 tablet by mouth two times a day. - terazosin (HYTRIN) 5 mg capsule Take 1 capsule by mouth daily at bedtime. - meloxicam (MOBIC) 15 mg tablet Take 1 tablet by mouth once daily. With food. - minocycline (MINOCIN, DYNACIN) 50 mg capsule Take 1 capsule by mouth twice daily. - pravastatin (PRAVACHOL) 40 mg tablet Take 1 tablet by mouth once daily. - acetaminophen (TYLENOL) 325 mg tablet Take 2 tablets by mouth every 6 hours as needed for Pain. Problem List As Of Date 09/19/2023 Noted Resolved Benign non-nodular prostatic hyperplasia with l*01/01/2008 BLADDER NECK OBSTRUCTION [N32.0] 01/01/2008 Rosacea, Acne [L71.9] 02/09/2010 Pure hypercholesterolemia [E78.00] 02/26/2013 S/P TURP [Z90.79] 10/20/2021 Mild cognitive impairment [G31.84] 06/24/2022 Ataxia, unspecified [R27.0] 06/15/2022 Closed fracture of distal end of fibula [S82.83*12/22/2022 12/22/2022 Closed head injury [S09.90XA] 12/22/2022 Personal history of traumatic brain injury [Z87*06/15/2022 Subarachnoid hemorrhage (HCC) [I60.9] 08/11/2023 Encounter Status:Closed by BRANDIN KEBEDE on 09/19/23 [facility] CONSULTon 09-19-2023 CONSULT HNO ID: [id number] Author: Rubén Hollins APRN.SAMARIA Service: Neurosurgery Author Type: Nurse Practitioner Type: Consults Filed: 09/19/2023 10:11 PM Note Text: Attestation signed by Iraj Bethea MD at 09/20/2023 9:41 AM Rubén Hollins APRN CNP discussed this Patient with me so I reviewed his records including his CT scans and recommended that he be admitted to the hospital for observation and repeat scan in the morning. Apparently the patient signed AGAINST MEDICAL ADVICE and left the emergency room before his follow-up scan. Mr. Hollins also informed me that he discussed with the patient and his the problems with this noncompliance. Iraj Bethea MD HISTORY AND PHYSICAL EXAMINATION SERVICE DATE: 09/19/2023 SERVICE TIME: 7:30pm PRIMARY CARE PHYSICIAN: Geoffrey Adams MD Subjective CHIEF COMPLAINT: confusion with known SDH HPI: This is a 68 year old male who presents with PMH of BPH, arthritis, traumatic subarachnoid hemorrhage who presents today with concerns of mild confusion with a known subacute subdural Hematoma. On Tuesday the patient and his state that he had a small fall while bending down to feed his pets. He denies hitting his head or any loss of consciousness. Typically he is reported requiring a cane to ambulate and has been requiring this more frequently. He follows with Dr. Srinivasan after a fall where he hit his head on 08/11/[address] a tSAH was found. No surgical intervention was required and he was discharged stable in good condition to follow up with Dr. Srinivasan in one month with repeat CT. On that repeat CT scan he was noted to have new bleeding in the right subdural space and subtle right to left midline shift. Dr. Srinivasan recommended at the time a MMA but the patient declined the referral. Today the patient presented for evaluation due to possible increased confusion. He denies any recent blood thinner use. FUNCTIONAL STATUS: Partially dependent PAST MEDICAL HISTORY Diagnosis Date Arthritis BPH with obstruction/lower urinary tract symptoms Rosacea Subarachnoid hemorrhage (HCC) 08/11/2023 PAST SURGICAL HISTORY Procedure Laterality Date PAST SURGICAL HISTORY OF flexible cystoscopy PAST SURGICAL HISTORY OF 1959 tonsillectomy PAST SURGICAL HISTORY OF 2018 left eye surgery TRANSURETHRAL ELEC-SURG PROSTATECTOM N/A 08/18/2021 TRANSURETHRAL ELEC-SURG PROSTATECTOM 2019 FAMILY HISTORY Problem Relation Age of Onset Arthritis Mother Cancer Mother melanoma Heart Mother Viral myocarditis. GI Father ulcers Social History Tobacco Use Smoking status: Every Day Packs/day: 0.50 Years: 20.00 Additional pack years: 0.00 Total pack years: 10.00 Types: Cigarettes Smokeless tobacco: Former Vaping Use Vaping Use: Never used Substance Use Topics Alcohol use: Not Currently Drug use: Never (Not in a hospital admission) ALLERGIES No Known Allergies COMPLETE REVIEW OF SYSTEMS: Constitutional: Denies fatigue, fever/chills, recent weight changes Eyes: Denies vision changes, diplopia, pain, use of corrective devices Ears: Denies hearing changes, tinnitus, vertigo, use of hearing devices Cardiovascular: Denies palpitations, dyspnea, edema, chest pain Respiratory: Denies cough, wheezing, dyspnea GI: Denies dysphagia, gastric reflux, nausea, vomiting, change in bowel or bladder habits : Denies incontinence, urinary infections Musculoskeletal: Denies joint pain, muscle pain, limitation of movement, stiffness, weakness Integumentary: Denies rashes, color changes in skin or nails Neurological: Denies headaches, dizziness, fainting, seizures, local weakness, numbness, tingling, tremors, memory changes Psychiatric: Denies anxiety, depression, suicidal ideation, hallucinations Endocrine: Denies heat/cold intolerance, polyuria, polyphagia, polydipsia, diaphoresis Heme/Lymph: Denies easy bruising or bleeding, history of blood transfusions and reactions Allergy/Immune:Denies fatigue, fever/chills, malaise, night sweats, recent weight changes Objective PHYSICAL EXAM: GENERAL: awake and alert, cooperative, pleasant, NAD HEENT: normocephalic, atraumatic LUNGS: Unlabored breathing NECK/BACK: ROM appropriate, no TTP CARDIAC: rate and rhythm as above ABDOMEN: Soft, non-tender, non-distended EXTREMITIES: MINER, No deformities, No edema SKIN: Skin color, texture, turgor normal, No rashes or lesions NEUROLOGICAL: Mental Status: AANDOx3; follows commands Speech: clear and fluent; no aphasia Cranial Nerves: CNII: Visual acuity normal CNIII, IV, : Pupils equal, round and reactive to light, EOM intact CN V: Facial sensation intact bilaterally to fine touch CN VII: Facial muscles symmetric and strong CN VIII: no hearing impair (more content not included)... Normal [facility] CT BRAIN WO IVCONon 09-19-[address] BRAIN WO IVCON * * *Final Report* * * DATE OF EXAM: Sep 19 2023 5:48PM [facility] 0504 - CT BRAIN WO IVCON / PROCEDURE REASON: Head trauma, moderate-severe * * * * Physician Interpretation * * * * EXAMINATION: CT BRAIN WO IVCON CLINICAL HISTORY: Head trauma TECHNIQUE: Serial axial images without IV contrast were obtained from the vertex to the foramen magnum. MQ: CTBWO_3 CT Radiation dose: Integrated Dose-Length Product (DLP) for this visit = 1157 mGy*cm CT Dose Reduction Employed: Automated exposure control(AEC) and iterative recon COMPARISON: 09/12/2023. RESULT: Financial Aid Counselor (topogram) images: No additional findings. Post-operative change: None. Acute change: There is a right hemispheric subdural hematoma extending from the frontal region to the occipital region. This is most pronounced anteriorly with a thickness of 8.3 mm. When evaluated in a similar location it measured 6.8 mm in thickness. Mass Lesion / Mass Effect: There is no evidence of an intracranial mass or extraaxial fluid collection. There is approximately 6 mm of right to left midline shift, grossly similar to the previous exam. Chronic change: Patchy foci of low attenuation coefficient are present within the supratentorial white matter which is a nonspecific finding but likely represents moderate microvascular ischemia. Parenchyma: There is moderate generalized volume loss. The brain parenchyma is otherwise within normal limits for age. Ventricles: Ventricular enlargement concordant with the degree of parenchymal volume loss. Paranasal sinuses and skull base: The visualized paranasal sinuses are grossly clear. The skull base and imaged soft tissues are unremarkable. IMPRESSION: 1. Right hemispheric subdural hemorrhage consistent with an acute/subacute hematoma. The thickness of the subdural hematoma is most pronounced near the frontal lobe and is more conspicuous than on previous exam. This could be secondary to slice selection. There is no significant change in the amount of midline shift. 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: [facility] Transcribe Date/Time: Sep 19 2023 6:49P Dictated by : MO PENA MD This examination was interpreted and the report reviewed and electronically signed by: MO PENA MD on Sep 19 2023 6:53PM EST [id number] Normal [facility] CT CERVICAL SPINE WO IVCONon 09-19-2023 CT CERVICAL SPINE WO IVCON * * *Final Report* * * DATE OF EXAM: Sep 19 2023 5:48PM [facility] 0505 - CT CERVICAL SPINE WO IVCON / PROCEDURE REASON: Spine fracture, cervical, traumatic * * * * Physician Interpretation * * * * EXAMINATION: CT CERVICAL SPINE WO IVCON CLINICAL HISTORY: Spine fracture, cervical, traumatic TECHNIQUE: Spiral, high resolution axial unenhanced images were obtained from the skull base to the cervicothoracic junction with sagittal and coronal planar reconstructions. MQ: [id number]_5 CT Radiation dose: Integrated CT Dose-Length Product (DLP) for this visit = 1157 mGy*cm CT Dose Reduction Employed: Automated exposure control(AEC) and iterative recon COMPARISON: None. RESULT: Counting reference: Craniocervical junction. Anatomic Variants: None. Financial Aid Counselor (topogram) images: No additional findings. Alignment: Alignment is anatomic. Craniocervical junction: Craniocervical junction is normal. Osseous structures/fracture: No evidence of a lytic or blastic process in the visualized spine. No evidence of acute or chronic fracture. Cervical soft tissues: The paraspinal soft tissues are within normal limits. Degenerative changes: Mild multilevel degenerative disc disease and degenerative facet arthropathy are noted. IMPRESSION: Degenerative changes without acute osseous adenopathy. 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: [facility] Transcribe Date/Time: Sep 19 2023 6:54P Dictated by : MO PENA MD This examination was interpreted and the report reviewed and electronically signed by: MO PENA MD on Sep 19 2023 6:56PM EST [id number] Normal [facility] ECG COMPLETEon 09-19-2023 ECG COMPLETE Ventricular Rate : 8 6 BPM Atrial Rate : 86 BPM P-R Interval : 136 ms QRS Duration : 84 ms Q-T Interval : 382 ms QTC Calculation(Bazett) : 457 ms Calculated P [place] : 48 degrees Calculated R [place] : -49 degrees Calculated T [place] : 30 degrees NORMAL SINUS RHYTHM LEFT ANTERIOR FASCICULAR BLOCK ABNORMAL ECG WHEN COMPARED WITH ECG OF 11-AUG-2023 06:43, NO SIGNIFICANT CHANGE WAS FOUND Confirmed by MD GUZMAN ERICK ([id number]) on 10/03/2023 6:52:52 AM NAME : LYRIC PADRON PID : [id number] : 1955 Gender : Male Race : ORD : [id number] Procedure Date : Sep 19 2023 17:28:36 Edit Date : Oct 03 2023 06:52:54 Diagnosis: NORMAL SINUS RHYTHM LEFT ANTERIOR FASCICULAR BLOCK ABNORMAL ECG WHEN COMPARED WITH ECG OF 11-AUG-2023 06:43, NO SIGNIFICANT CHANGE WAS FOUND Confirmed by MD GUZMAN ERICK ([id number]) on 10/03/2023 6:52:52 AM Test Reason : Weakness Location : 4 : AKED EM Overread By : MD GZUMAN ERICK Edited By : MD GUZMAN ERICK Referred By : , Acquired by : KWADWO SPEARS [facility] ED NOTEon 09-19-2023 ED NOTE HNO ID: [id number] Author: Teodora Hughes RN Service: Emergency Medicine Author Type: Registered Nurse Type: ED Notes Filed: 09/19/2023 7:34 PM Note Text: NSGY at bedside [facility] ED NOTE HNO ID: [id number] Author: Tana Kendall RN Service: ? Author Type: Registered Nurse Type: ED Notes Filed: 09/19/2023 4:22 PM Note Text: Bed: 34-ED Expected date: Expected time: Means of arrival: Comments: Triage when clean [facility] ED NOTE HNO ID: [id number] Author: Gabi Marie RN Service: Emergency Medicine Author Type: Registered Nurse Type: ED Notes Filed: 09/19/2023 2:10 PM Note Text: CT notified [facility] ED PROV NOTEon 09-19-2023 ED PROV NOTE HNO ID: [id number] Author: Ilene Abreu MD Service: Emergency Medicine Author Type: Physician Type: ED Provider Notes Filed: 09/19/2023 6:27 PM Note Text: Attending Note I evaluated the patient and personally participated in the walker components. I agree with the resident's findings and plan as documented and have discussed the case and management of the patient's care with the resident Patient staffed with me at 5 or so, known SAH. Patient with known SAH. Patient was seen on the found to have worsening subdural hemorrhage along the right hemisphere that was dealt with on an outpatient basis. He was seen in the office on the told he had a worsening subarachnoid bleed. On my evaluation patient states that he had a slip and fall on Tuesday he was bending forward to get some dog food falling forward he states he did not hit his head denies any headache. feels that he might be a little bit weaker than usual uses a cane on and off to ambulate. No slurred speech. My evaluation the patient has 5-5 strength in the upper and lower extremities gross sensation is intact no evidence of dysmetria. That being said he is alert and oriented x 2. He is aware that he is in the hospital tells me it is 2023, and can tell me his name. At this point we will go ahead and make the patient a neurosurgery consult given the slight confusion. Aniticipate admission. ILENE Garrett MD 09/19/23 1827 [facility] ED PROV NOTE HNO ID: [id number] Author: Deepak Barksdale DO Service: Emergency Medicine Author Type: Resident Type: ED Provider Notes Filed: 09/19/2023 9:49 PM Note Text: Attestation signed by Ilene Abreu MD at 09/20/2023 10:19 AM Attending Note I evaluated the patient and personally participated in the walker components. I agree with the resident's findings and plan as documented and have discussed the case and management of the patient's care with the resident. Patient essentially presents out of concern he may have hit his head, there is some question of weakness. CT brain shows some potential minimal change from 1 week ago, NRSGY recommends admission and came down to speak to the patient, he is refusing, see documented AMA form, he has capacity, is able to make his own decisions, is present and is witness. Signature: Ilene Abreu MD Date: 09/20/2023 Time: 10:17 AM ED Provider Note Patient Name: Lyric Padron : 1955 SERVICE DATE: 09/19/23 History Patient presents with: Head Injury: Has a known SAH from August. Had a repeat scan ( ) after his initial injury and it showed it was worsening. On Tuesday he fell again and hit his head. He was told to come here for evaluation. Pt. Denies any new deficits. ERIC Padron is a 68 year old male with PMHx of traumatic SAH after a fall (admitted on 08/11/23) who presents to the emergency department for mechanical fall. Patient states that he has been following with neurosurgery as an outpatient after previous admission in July for traumatic subarachnoid hemorrhage. 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 2 days ago, patient was getting some dog food and leaned over, lost his balance, and subsequently fell to the ground hitting the front of his head on the floor (no loss of consciousness or other trauma reported, although this was unwitnessed). was near patient and was able to come to him, patient was not reporting any ongoing issues at that time, and she did not notice any changes in his mental status. Patient denies any ongoing symptoms over the past 2 days, however has noted that patient has appeared generally more weak than his baseline, which patient denies (he reports that he is simply trying to be more careful after the recent fall). Pt is adamant that fall was mechanical in nature, denies any lightheadedness or dizziness preceding the fall. Additionally, notes that he did have a brief period where he was having trouble pronouncing words a few hours after the fall, which spontaneously resolved after a short period of time (she denies any recent slurred speech or any other observed neurologic symptoms). Patient typically uses a walker to ambulate at home. Patient is not currently anticoagulated. He denies any recent fevers, chills, cough, shortness of breath, chest or abdominal pain, any pain from the fall, numbness, new headaches, dizziness, weakness, denies any other symptoms at this time. Complete ROS as documented below. PAST MEDICAL HISTORY Diagnosis Date Arthritis BPH with obstruction/lower urinary tract symptoms Rosacea Subarachnoid hemorrhage (HCC) 08/11/2023 PAST SURGICAL HISTORY Procedure Laterality Date PAST SURGICAL HISTORY OF flexible cystoscopy PAST SURGICAL HISTORY OF 1958 tonsillectomy PAST SURGICAL HISTORY OF 2018 left eye surgery TRANSURETHRAL ELEC-SURG PROSTATECTOM N/A 08/18/2021 TRANSURETHRAL ELEC-SURG PROSTATECTOM 2019 FAMILY HISTORY Problem Relation Age of Onset Arthritis Mother Cancer Mother melanoma Heart Mother Viral myocarditis. GI Father ulcers Social History Tobacco Use Smoking status: Every Day Packs/day: 0.50 Years: 20.00 Additional pack years: 0.00 Total pack years: 10.00 Types: Cigarettes Smokeless tobacco: Former Vaping Use Vaping Use: Never used Substance and Sexual Activity Alcohol use: Not Currently Drug use: Never Sexual activity: Not Currently Partners: Female ALLERGIES No Known Allergies Review of Systems Constitutional: Negative for chills and fever. HENT: Negative for congestion and sore throat. Eyes: Negative for visual disturbance. Respiratory: Negative for cough and shortness of breath. Cardiovascular: Negative for chest pain, palpitations and leg swelling. Gastrointestinal: Negative for abdominal pain, constipation, diarrhea, nausea and vomiting. Genitourinary: Negative for dysuria, frequency and urgency. Neurological: Positive for (more content not included)... [facility] ED Triage Noteon 09-19-2023 ED Triage Note HNO ID: [id number] Author: Fransisco Fowler APRN.BILL RECAPITULATION CLERK Service: Emergency Medicine Author Type: Nurse Practitioner Type: ED Triage Notes Filed: 09/19/2023 2:11 PM Note Text: ED INTAKE NOTE Patient Name: Lyric Padron Service Date: 09/19/23 BRIEF HPI: Provider in triage. As provider in triage my care is limited to quick triage assessment and initiation of any orders that may be able to be performed in the triage process. Patient is a 68-year-old male with known SAH from August. Had a repeat scan September 12 showed worsening and has had a new fall hitting his head. Patient denies dizziness chest pain shortness of breath or difficulty breathing abdominal pain nausea vomiting constipation diarrhea. BRIEF EXAM: Awake and Alert RRR Abd soft/NT/ND; no rebound/guarding MINER INTAKE WORKUP: Imaging: CT: brain cerv SIGNATURE: Fransisco Fowler APRN.BILL RECAPITULATION CLERK [facility] HIGH SENSITIVITY TROPONIN T (INITIAL)on 09-19-2023 Troponin T.cardiac High sensitivity method [Mass/Vol] 10 ng/L Normal <12 [facility] Comment on above: Order Comment: Speci men Type: BLOOD SPECIMENOrdering Facility: [facility] Address: [address] [place] [address] Result Comment: When assessing risk for acute coronary syndromes: In patients undergoing blood draw greater than or equal to 2 hours from symptom onset, with history of very low to moderate risk and non-ischemic ECG, an initial hs-Troponin T less than 12 ng/L AND a 1 hour delta hs-Troponin T less than 3 ng/L should be considered very low risk for 30 day MACE. Performed By: #### L [id number] ####[facility]ATORYCLIA [id number] [address] HIGH SENSITIVITY TROPONIN T (SECOND)on 09-19-2023 Troponin T.cardiac High sensitivity method [Mass/Vol] 12 ng/L High <12 [facility] Comment on above: Order Comment: Speci men Type: BLOOD SPECIMENOrdering Facility: [facility] Address: [address] [place] [address] Result Comment: When assessing risk for acute coronary syndromes: In patients undergoing blood draw greater than or equal to 2 hours from symptom onset, with history of very low to moderate risk and non-ischemic ECG, an initial hs-Troponin T less than 12 ng/L AND a 1 hour delta hs-Troponin T less than 3 ng/L should be considered very low risk for 30 day MACE. Performed By: #### L [id number] ####[facility]ORYCLIA [id number] [address] [place] Urinalysis complete panel (U )on 09-19-2023 Bilirubin Ql (U) Negative Normal Negative [facility] Comment on above: Order Comment: Speci men Type: URINE SPECIMENOrdering Facility: [facility] Address: [address] [place] [address] Performed By: #### 2 4356-8 ####[facility]ORYCLIA [id number] [address] [place] Clarity (Unsp spec) Clear Normal Clear [facility] Comment on above: Order Comment: Speci men Type: URINE SPECIMENOrdering Facility: [facility] Address: [address] [place] [address] Performed By: #### 2 4356-8 ####[facility]ORYCLIA [id number] [address] OF [facility] Color (U) Light Yellow Normal yellow [facility] Comment on above: Order Comment: Speci men Type: URINE SPECIMENOrdering Facility: [facility] Address: [address] [place] [address] Performed By: #### 2 4356-8 ####[facility]ORYCLIA [id number] [address] Glucose Test strip (U) [Mass/Vol] Negative Normal Trace, Negative [facility] Comment on above: Order Comment: Speci men Type: URINE SPECIMENOrdering Facility: [facility] Address: [address] [place] [address] Performed By: #### 2 4356-8 ####[facility]ORYCLIA [id number] [address] [place] Hemoglobin Ql (U) Negative Normal Negative, Trace [facility] Comment on above: Order Comment: Speci men Type: URINE SPECIMENOrdering Facility: [facility] Address: [address] [place] [address] Performed By: #### 2 4356-8 ####[facility]ORYCLIA [id number] [address] Ketones Ql (U) 1+ Abnormal Negative, Trace [facility] Comment on above: Order Comment: Speci men Type: URINE SPECIMENOrdering Facility: [facility] Address: [address] [place] [address] Performed By: #### 2 4356-8 ####[facility]ORYCLIA [id number] [address] Leukocyte esterase Test strip Ql (U) Negative Normal Negative, 25 Zeke/uL [facility] Comment on above: Order Comment: Speci men Type: URINE SPECIMENOrdering Facility: [facility] Address: [address] [place] [address] Performed By: #### 2 4356-8 ####[facility]ORYCLIA [id number] [place] [address] [place] Nitrite Ql (U) Negative Normal Negative [facility] Comment on above: Order Comment: Speci men Type: URINE SPECIMENOrdering Facility: [facility] Address: [address] [place] [address] Performed By: #### 2 4356-8 ####[facility]ORYCLIA [id number] [place] [address] [place] pH (U) 6.5 [pH] Normal 5.0-8.0 [facility] Comment on above: Order Comment: Speci men Type: URINE SPECIMENOrdering Facility: [facility] Address: [address] [place] [address] Performed By: #### 2 4356-8 ####[facility]ORYCLIA [id number] [address] [place] Protein (U) [Mass/Vol] Negative Normal Trace, Negative [facility] Comment on above: Order Comment: Speci men Type: URINE SPECIMENOrdering Facility: [facility] Address: [address] [place] [address] Performed By: #### 2 4356-8 ####[facility]ORYCLIA [id number] [address] [place] RBC LM.HPF (Urine sed) [#/Area] 0-3 /HPF Normal 0-3 /HPF [facility] Comment on above: Order Comment: Speci men Type: URINE SPECIMENOrdering Facility: [facility] Address: [address] [place] [address] Performed By: #### 2 4356-8 ####[facility]ORYCLIA [id number] [address] [place] Specific gravity (U) [Rel density] 1.014 Normal 1.005-1.030 [facility] Comment on above: Order Comment: Speci men Type: URINE SPECIMENOrdering Facility: [facility] Address: [address] [place] [address] Performed By: #### 2 4356-8 ####[facility]ORYCLIA [id number] [address] Urobilinogen Ql (U) Normal Normal Negative [facility] Comment on above: Order Comment: Speci men Type: URINE SPECIMENOrdering Facility: [facility] Address: [address] [place] [address] Performed By: #### 2 4356-8 ####[facility]ORYCLIA [id number] [address] WBC LM.HPF (Urine sed) [#/Area] 0-5 /HPF Normal 0-5 /HPF [facility] Comment on above: Order Comment: Speci men Type: URINE SPECIMENOrdering Facility: [facility] Address: [address] [place] [address] Performed By: #### 2 4356-8 ####[facility]ATORYCLIA [id number] [address] [place] [facility]YR[facility]AD[facility] ([id number]) 1955 M Date Time Provider Department 09/13/23 KWADWO SRINIVASAN [facility] During your visit today, we recorded the following information about you: Brandin Kebede RN 09/13/2023 11:02 AM Signed Patients called with questions from yesterday's visit. Discussed at length and to the best of my ability. Discussed concerning signs or symptoms that he would need to present to [facility] ED. She expressed understanding. Brandin Kebede RN Allergies As of Date: 09/13/2023 (No Known Allergies) Date Reviewed: 09/12/2023 Reviewed by: Susanne Bautista Ma - Fully Assessed Reason for Visit: Patient Question [9017] Prescriptions as of 09/13/2023 - ibuprofen (MOTRIN) 400 mg tablet Take by mouth. - memantine (NAMENDA) 5 mg tablet Take 1 tablet by mouth two times a day. - terazosin (HYTRIN) 5 mg capsule Take 1 capsule by mouth daily at bedtime. - meloxicam (MOBIC) 15 mg tablet Take 1 tablet by mouth once daily. With food. - minocycline (MINOCIN, DYNACIN) 50 mg capsule Take 1 capsule by mouth twice daily. - pravastatin (PRAVACHOL) 40 mg tablet Take 1 tablet by mouth once daily. - acetaminophen (TYLENOL) 325 mg tablet Take 2 tablets by mouth every 6 hours as needed for Pain. Problem List As Of Date 09/13/2023 Noted Resolved Benign non-nodular prostatic hyperplasia with l*01/01/2008 BLADDER NECK OBSTRUCTION [N32.0] 01/01/2008 Rosacea, Acne [L71.9] 02/09/2010 Pure hypercholesterolemia [E78.00] 02/26/2013 S/P TURP [Z90.79] 10/20/2021 Mild cognitive impairment [G31.84] 06/24/2022 Ataxia, unspecified [R27.0] 06/15/2022 Closed fracture of distal end of fibula [S82.83*12/22/2022 12/22/2022 Closed head injury [S09.90XA] 12/22/2022 Personal history of traumatic brain injury [Z87*06/15/2022 Subarachnoid hemorrhage (HCC) [I60.9] 08/11/2023 Encounter Status:Closed by BRANDIN KEBEDE on 09/13/23 [facility] CNP[facility] Telephone (BHARATHI) LYRIC PADRON ([id number]) 1955 M Date Time Provider Department 09/13/23 JAYDA ACE During your visit today, we recorded the following information about you: Madan Garcia LPN 09/13/2023 11:25 AM Signed Phone call received from patients listed on chart (Marisela) reported OV Neurosurgery on 09/12/23 Dr. Jerad Srinivasan. Patients stated the provider recommended a procedure to assist with current brain bleed, patient declined, Marisela inquired if current diagnosis has created a mental decline that patient is possibly unable to make this type of medical decision, please advise. Madan Rowland LPN, LPN 09/13/2023 2:11 PM Signed Phone call placed patient's updated after review with provider to contact Neurosurgery, Dr. Jerad Srinivasan. To discuss if concerns need further evaluation. Patient's verbalized understanding, agreed with plan of care, will send SocialGO message to update office if additional evaluation is requested. Madan Garcia LPN Allergies As of Date: 09/13/2023 (No Known Allergies) Date Reviewed: 09/12/2023 Reviewed by: Susanne Bautista Ma - Fully Assessed Reason for Visit: Patient Update [1234] Prescriptions as of 09/13/2023 - ibuprofen (MOTRIN) 400 mg tablet Take by mouth. - memantine (NAMENDA) 5 mg tablet Take 1 tablet by mouth two times a day. - terazosin (HYTRIN) 5 mg capsule Take 1 capsule by mouth daily at bedtime. - meloxicam (MOBIC) 15 mg tablet Take 1 tablet by mouth once daily. With food. - minocycline (MINOCIN, DYNACIN) 50 mg capsule Take 1 capsule by mouth twice daily. - pravastatin (PRAVACHOL) 40 mg tablet Take 1 tablet by mouth once daily. - acetaminophen (TYLENOL) 325 mg tablet Take 2 tablets by mouth every 6 hours as needed for Pain. Problem List As Of Date 09/13/2023 Noted Resolved Benign non-nodular prostatic hyperplasia with l*01/01/2008 BLADDER NECK OBSTRUCTION [N32.0] 01/01/2008 Rosacea, Acne [L71.9] 02/09/2010 Pure hypercholesterolemia [E78.00] 02/26/2013 S/P TURP [Z90.79] 10/20/2021 Mild cognitive impairment [G31.84] 06/24/2022 Ataxia, unspecified [R27.0] 06/15/2022 Closed fracture of distal end of fibula [S82.83*12/22/2022 12/22/2022 Closed head injury [S09.90XA] 12/22/2022 Personal history of traumatic brain injury [Z87*06/15/2022 Subarachnoid hemorrhage (HCC) [I60.9] 08/11/2023 Encounter Status:Closed by MADAN GARCIA LPN on 09/13/23 [facility] CNOVon 09-12-2023 CNOV Office Visit (NEAGCL M) LYRIC PADRON ([id number]) 1955 Date Time Provider Department 09/12/23 2:45 PM KWADWO SRINIVASAN NEAGCLM During your visit today, we recorded the following information about you: Pulse Blood pressure Weight Height 74/minute 105/69 69.9 kg 1.676 m Kwadwo Srinivasan MD, PhD 09/12/2023 3:40 PM Signed NEUROSURGERY FOLLOW UP OFFICE NOTE Kwadwo Srinivasan MD, PhD Date of visit: September 12, 2023 Patient Name: Mr.Gary Augustin Padron Date of : 1955 Current Age: [age] year old Sex: male MRN/E# [id number] Last Office Visit: Visit date not found Chief Complaint: Patient presents with: Established Patient: Hospital discharge SUBJECTIVE: HPI The patient presented to [facility] ED on 08/11/2023 after being unsteady on his feet and did not remember events of the night prior. He noted he thought he fell and hit his head. He noted head pain with a laceration. Advanced imaging demonstrated a small tSAH. No surgical intervention was warranted at that time. He was also noted to have a Campoverde's sign. It was recommended that he follow up in 4 weeks with a repeat CT Brain and MRI cervical. Today he states he feel he has been doing well since discharge. His notes that his confusion and memory has worsened since being discharged. He denies any other symptoms at this time. He denies any cervical pain. He notes feeling unsteady and has use of a cane. His noted that he fell a week ago out of a chair loosing his balance, but noted he did not hit his head. He notes taking tylenol if needed, but hasn't needed to. He presents for imaging review, evaluation and plan of care. Symptoms: memory difficulties and forgetfulness. Falls, unsteady. Smoker: endorses Diabetic: denies Anticoagulants / Antiplatelets: denies Occupation: retired PREVIOUS CONSERVATIVE TREATMENTS: Mobic Tylenol PREVIOUS SURGERY: None PAIN EVALUATION No data found in the last 1 encounters. PAST MEDICAL HISTORY Diagnosis Date Arthritis BPH with obstruction/lower urinary tract symptoms Rosacea Subarachnoid hemorrhage (HCC) 08/11/2023 PAST SURGICAL HISTORY Procedure Laterality Date PAST SURGICAL HISTORY OF flexible cystoscopy PAST SURGICAL HISTORY OF 1958 tonsillectomy PAST SURGICAL HISTORY OF 2017 left eye surgery TRANSURETHRAL ELEC-SURG PROSTATECTOM N/A 08/18/2021 TRANSURETHRAL ELEC-SURG PROSTATECTOM 2019 FAMILY HISTORY Problem Relation Age of Onset Arthritis Mother Cancer Mother melanoma Heart Mother Viral myocarditis. GI Father ulcers ALLERGIES No Known Allergies Current Outpatient Medications Medication Sig Dispense Refill ibuprofen (MOTRIN) 400 mg tablet Take by mouth. memantine (NAMENDA) 5 mg tablet Take 1 tablet by mouth two times a day. 60 tablet 2 terazosin (HYTRIN) 5 mg capsule Take 1 capsule by mouth daily at bedtime. 90 capsule 3 meloxicam (MOBIC) 15 mg tablet Take 1 tablet by mouth once daily. With food. 30 tablet 1 minocycline (MINOCIN, DYNACIN) 50 mg capsule Take 1 capsule by mouth twice daily. 180 capsule 3 pravastatin (PRAVACHOL) 40 mg tablet Take 1 tablet by mouth once daily. 90 tablet 3 acetaminophen (TYLENOL) 325 mg tablet Take 2 tablets by mouth every 6 hours as needed for Pain. 0 No current facility-administered medications for this visit. REVIEW OF SYSTEMS Review of Systems Constitutional: Negative for diaphoresis, fatigue and fever. HENT: Negative for congestion, sinus pressure and sore throat. Eyes: Negative for discharge and itching. Respiratory: Negative for cough, chest tightness and shortness of breath. Cardiovascular: Negative for chest pain, palpitations and leg swelling. Gastrointestinal: Negative for constipation, diarrhea, nausea and vomiting. Endocrine: Negative for cold intolerance and heat intolerance. Genitourinary: Negative for difficulty urinating, frequency and urgency. Musculoskeletal: Positive for gait problem. Negative for back pain, neck pain and neck stiffness. Skin: Negative for rash and wound. Allergic/Immunologic: Negative for environmental allergies and food allergies. Neurological: Negative for dizziness, weakness, light-headedness, numbness and headaches. Hematological: Does not bruise/bleed easily. Psychiatric/Behavioral: Positive for confusion. Negative for agitation. The patient is not nervous/anxious. OBJECTIVE: BP 105/69 Pulse 74 Ht 5' 6 (1.68m) Wt 154 lb (69.9kg) SpO2 98% BMI 24.87 kg/(m2). Physical Exam Today Lyric was fully oriented but he did take some time to consider his answers. I felt that he had a very subtle left-sided pronator drift. I thought that he had a very mild right-sided Eldon sign but this was subtle. Data Review IMAGING STUDIES: MRI Cervical Spine 09/12/2023: in process CT Brain 09/12/2023: in process Assessment and Plan: Today Lyric has (more content not included)... [facility] CT BRAIN WO IVCONon 09-12-20 CT BRAIN WO IVCON * * *Final Report* * * DATE OF EXAM: Sep 12 2023 1:41PM A1C 0504 - CT BRAIN WO IVCON / PROCEDURE REASON: SAH (subarachnoid hemorrhage) (HCC) * * * * Physician Interpretation * * * * EXAMINATION: CT BRAIN WO IVCON CLINICAL HISTORY: Four-week follow-up of subarachnoid hemorrhage; worsening memory issues since fall TECHNIQUE: Serial axial images without IV contrast were obtained from the vertex to the foramen magnum. MQ: [id number] CT Radiation dose: Integrated Dose-Length Product (DLP) for this visit = 794.52 mGy*cm CT Dose Reduction Employed: No dose reduction techniques were required COMPARISON: CT brain 08/11/2023 RESULT: Post-operative change: None. Acute change: No evidence of an acute infarct or other acute parenchymal process. Hemorrhage: There is new/worsening right hemispheric subdural hemorrhage extending from the frontal region through the occipital parietal region. Adjacent to the frontal lobe there is hyperdense hemorrhage measuring up to 7 mm in thickness. Somewhat more posteriorly there is more mixed density hemorrhage. There is mild mass effect upon the adjacent brain parenchyma as well as approximately 6 mm right to left midline shift. Previously noted subarachnoid hemorrhage is not well visualized. ECASS hemorrhagic transformation score: Not Applicable Mass Lesion / Mass Effect: No evidence of an intracranial mass. No significant mass effect. Chronic change: None apparent. Parenchyma: There is no significant volume loss. The brain parenchyma is otherwise within normal limits for age. Ventricles: The ventricles are within normal limits of size and configuration for age. Paranasal sinuses and skull base: The visualized paranasal sinuses are grossly clear. The skull base and imaged soft tissues are unremarkable. Financial Aid Counselor (topogram) images: IMPRESSION: 1. There is new/worsening subdural hemorrhage along the right hemisphere as detailed above. In particular the hemorrhage adjacent to the right frontal lobe appears hyperdense suggesting acute/recent hemorrhage. Mild mass effect upon the adjacent brain parenchyma and mild appearing right to left midline shift, similar or slightly worsened compared to prior. 2. Previously visualized subarachnoid hemorrhage is not well demonstrated. Recent medical record was reviewed. The finding of new/worsening right-sided subdural hemorrhage was noted by the referring clinician and clinical note of 09/12/2023 (presumably secondary to review of imaging). 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: PSCB Transcribe Date/Time: Sep 14 2023 11:49A Dictated by : DARBY CROFT MD This examination was interpreted and the report reviewed and electronically signed by: DARBY CROFT MD on Sep 14 2023 12:00PM EST [id number] [facility] MRI CERVICAL SPINE WO IVCONo n 09-12-2023 MRI CERVICAL SPINE WO IVCON * * *Final Report* * * DATE OF EXAM: Sep 12 2023 1:57PM A1M 0297 - MRI CERVICAL SPINE WO IVCON / PROCEDURE REASON: Spinal stenosis of cervical region * * * * Physician Interpretation * * * * EXAMINATION: MRI CERVICAL SPINE WO IVCON CLINICAL HISTORY: Spinal stenosis of cervical region evaluate for myelopathy; balance issues and weakness TECHNIQUE: Routine cervical spine MR protocol without gadolinium. MQ: [id number] COMPARISON: None. RESULT: Images are mildly motion degraded. Counting reference: Craniocervical junction. Anatomic Variants: None. Localizer images: Alignment: Alignment is anatomic. Craniocervical junction: Craniocervical junction is normal. Cord: No expansile cord lesion is seen. Bone marrow signal/fracture: No evidence of pathologic marrow infiltration. No evidence of prior fracture. Cervical soft tissues: The paraspinal soft tissues are within normal limits. C2-C3: There is a small posterior central disc protrusion. Minimal central canal narrowing. No foraminal stenosis. C3-C4: Broad-based posterior disc osteophyte complex. Moderate appearing central canal stenosis. Minimal cord deformity without obvious edema. Moderate bilateral foraminal stenosis secondary to spurring. C4-C5: Broad-based posterior disc osteophyte complex. There is posterior ligamentous buckling. Overall congenitally small canal. Moderate to severe appearing central canal stenosis with suspected mild cord deformity. The CSF is completely effaced. There may be minimally increased T2 signal within the cord which may represent compressive myelopathy. Severe bilateral foraminal stenosis. C5-C6: Mild posterior disc bulging. There is posterior ligamentous thickening/buckling. Moderate appearing central canal stenosis. Moderate bilateral foraminal stenosis secondary to spurring. C6-C7: Mild posterior disc bulging. Mild appearing central canal stenosis. Moderate bilateral foraminal stenosis. C7-T1: Canal and foramina are patent. IMPRESSION: 1. 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 2. C3-C4 and C5-C6 moderate appearing central canal stenosis. 3. Additional degenerative changes as detailed above, including multilevel varying degrees of foraminal stenosis. Anatomic Variant: None. Assume 7 cervical vertebrae with counting from the craniocervical junction. 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[facility] Transcribe Date/Time: Sep 14 2023 11:42A Dictated by : DARBY CROFT MD This examination was interpreted and the report reviewed and electronically signed by: DARBY CROFT MD on Sep 14 2023 11:49AM EST [id number] Normal [facility] CNOVon 08-24-2023 CNOV Office Visit (NEMOWS ) VITO,LYRIC Dawkins ([id number]) 1955 M Date Time Provider Department 08/24/23 11:15 AM JAYDA ACE During your visit today, we recorded the following information about you: Pulse Respiration Blood pressure Weight 87/minute 16/minute 124/81 70.1 kg Oliva Wong LPN 08/24/2023 12:34 PM Signed There is no data to display for this encounter Jayda Ace PA-C 08/24/2023 12:34 PM Signed ESTABLISHED PATIENT VISIT Last visit: 03/03/23 with Ashley Ewing BILL RECAPITULATION CLERK Z87.820 History of traumatic brain injury (primary encounter diagnosis) R41.3 Memory loss Comment: Patient previously presenting for memory concerns. Modified MOCA repeated today with score of 24/29; unchanged since time of previous appointment. He is currently taking Namenda 5mg BID with reported improvement in memory. Denies SE. No dangerous behaviors or hallucinations reported. He declines further testing such as formal neurocognitive testing or brain health consult. Can still consider at time of follow up appointment. Discussed importance of notifying the office if significant change in cognitive status occurs. R26.89 Balance problem Comment: Pt also prevoiusly seen for balance concerns. At time of last appointment sx felt to be secondary to possible L spine disease or ankle injury. Strength intact and no sensory changes noted. Referral to spine medicine considered at time of last OV but pt deferred. Also discussed proceeding with EMG/NCV but pt deferred additional testing as well. Since time of previous appointment he has been working with physical therapy with improvement in gait and balance. Denies recent falls. He does report leg weakness with onset roughly 10-15 minutes after standing. Denies associated double vision/SOB. No focal weakness noted on assessment in office. He has had follow-up with his PCP regarding this concern and noted to have abnormal pulses. Testing to rule out vascular etiology was ordered. Discussed that if no vascular causes noted, may proceed with EMG/NCV to further evaluate for neuro etiology. Pt and agreeable and will update the office if symptoms persist and vascular testing is unremarkable. In interim recommend continuing HEP and maintaining fall precautions. Follow up in four months or sooner if new or worsening symptoms occur. Ashley Ewing APRN.BILL RECAPITULATION CLERK I spent a total of 45 minutes on the date of the service which included preparing to see the patient, [id number] patient care, completing clinical documentation, obtaining and/or reviewing separately obtained history, performing a medically appropriate examination, and counseling and educating the patient/family/caregiver. CHIEF COMPLAINT: Follow up HISTORY OF PRESENT ILLNESS: Lyric Padron is a 68 year old male, There were no vitals taken for this visit. with a PMH significant for Head injury 2008, MCI, DDD. Last seen by Ashley on 03/03/23- seen for TBI, memory loss. Memory has been stable, taking Namenda 5mg bid. MoCA was . Reporting some balance issues at last appointment, improvement with PT. Looking for vascular cause and should this be negative, will get EMG. EMG was negative, MRI lumbar spine shows mild to severe changes and referred to spine. Patient recently admitted 08/11/23 for SAH for fall down stairs. Seen by neurosurgery and needs follow up in four weeks for repeat imaging. Patient presents with for follow-up. Prior to appointment, asked to speak with me in the hallway outside of the patient's room. States that she is concerned that after his fall on 08-11-2023 he has had some worsening memory issues and she is concerned about this being long-lasting. Asked her to come to the room and speak with the patient about this concern. Patient states that prior to his fall he had had a few small falls that were without any significant injury. Has not fallen since his hospitalization. Notes that prior to his fall he was doing well, no memory concerns or new symptoms. Since his fall, states that he is also fine but again reports some memory issues and confusion. No unilateral symptoms, no strokelike symptoms, no new deficits. Notes that he is no longer doing PT since his fall as directed. Did see Chuck Jones PA-C for spine and he feels that his lumbar degeneration is not contributing significantly to his weakness and encouraged to continue physical therapy. EMG was negative for any etiology, MRI of the cervical spine was ordered and is scheduled for later this month. Patient without any worsening weakness, no saddle anesthesia, no paresthesias, no bowel bladder incontinence. denies any personality changes, no sleepiness or increased fatigue. Patient recovering well from his injury. Patient denying any dizziness, headaches, vision changes, blurred vision or new s (more content not included)... Normal [facility] Basic metabolic 2000 panelon 08-12-2023 Anion gap [Moles/Vol] 12 mmol/L Normal 9-18 [facility] Comment on above: Order Comment: Speci men Type: BLOOD SPECIMENOrdering Facility: [facility] Address: [address] [place] [address] Performed By: #### 2 4321-2 ####[facility] LABORATORYCLIA [id number] [place] [address] [place] Calcium [Mass/Vol] 9.0 mg/dL Normal 8.5-10.2 [facility] Comment on above: Order Comment: Speci men Type: BLOOD SPECIMENOrdering Facility: [facility] Address: [address] [place] [address] Performed By: #### 2 4321-2 ####[facility]ATORYCLIA [id number] [place] [address] [place] Chloride [Moles/Vol] 106 mmol/L High 97-105 [facility] Comment on above: Order Comment: Speci men Type: BLOOD SPECIMENOrdering Facility: [facility] Address: [address] [place] [address] Performed By: #### 2 4321-2 ####[facility]ATORYCLIA [id number] [place] [address] [place] CO2 [Moles/Vol] 21 mmol/L Low 22-30 [facility] Comment on above: Order Comment: Speci men Type: BLOOD SPECIMENOrdering Facility: [facility] Address: [address] [place] [address] Performed By: #### 2 4321-2 ####[facility]ATORYCLIA [id number] [place] [address] [place] Creatinine [Mass/Vol] 0.84 mg/dL Normal 0.73-1.22 [facility] Comment on above: Order Comment: Speci men Type: BLOOD SPECIMENOrdering Facility: [facility] Address: [address] [place] [address] Performed By: #### 2 4321-2 ####[facility] LABORATORYCLIA [id number] [place] [id number] [place] Creatinine and Glomerular filtration rate.predicted panel (S/P/Bld) 94 mL/min/1.73m??? Normal >=60 [facility] Comment on above: Order Comment: George men Type: BLOOD SPECIMENOrdering Facility: [facility] Address: [address] [place] [address] Result Comment: Katerine mated Glomerular Filtration Rate (eGFR) is calculated using the 2020 CKD-EPI creatinine equation. This equation utilizes serum creatinine, sex, and age as parameters. The creatinine assay has traceable calibration to isotope dilution-mass spectrometry. Refer to KDIGO guidelines for clinical interpretation. In patients with unstable renal function, e.g. those with acute kidney injury, the eGFR may not accurately reflect actual GFR. Performed By: #### 2 4321-2 ####[facility] HOSPITALIA [id number] [place] [address] [place] Glucose [Mass/Vol] 104 mg/dL High 74-99 [facility] Comment on above: Order Comment: George saldivar Type: BLOOD SPECIMENOrdering Facility: [facility] Address: [address] [place] [address] Result Comment: The Citizen Of [place] Diabetes Association (ADA) provides guidance for cutoff values for fasting glucose and random glucose. The ADA defines fasting as no caloric intake for at least 8 hours. Fasting plasma glucose results between 100 to 125 mg/dL indicate increased risk for diabetes (prediabetes). Fasting plasma glucose results greater than or equal to 126 mg/dL meet the criteria for diagnosis of diabetes. In the absence of unequivocal hyperglycemia, results should be confirmed by repeat testing. In a patient with classic symptoms of hyperglycemia or hyperglycemic crisis, random plasma glucose results greater than or equal to 200 mg/dL meet the criteria for diagnosis of diabetes. Reference: Standards of Medical Care in Diabetes 2016, Citizen [place] Diabetes Association. Diabetes Care. 2016.39(Suppl 1). Performed By: #### 2 4321-2 ####[facility]ATORYCLIA [id number] [address] [place] Potassium [Moles/Vol] 3.8 mmol/L Normal 3.7-5.1 [facility] Comment on above: Order Comment: Speci men Type: BLOOD SPECIMENOrdering Facility: [facility] Address: [address] [place] [address] Performed By: #### 2 4321-2 ####[facility]ATORYCLIA [id number] [address] [place] Sodium [Moles/Vol] 139 mmol/L Normal 136-144 [facility] Comment on above: Order Comment: Speci men Type: BLOOD SPECIMENOrdering Facility: [facility] Address: [address] [place] [address] Performed By: #### 2 4321-2 ####[facility]ATORYCLIA [id number] [address] [place] Urea nitrogen [Mass/Vol] 10 mg/dL Normal 9-24 [facility] Comment on above: Order Comment: Speci men Type: BLOOD SPECIMENOrdering Facility: [facility] Address: [address] [place] [address] Performed By: #### 2 4321-2 ####[facility]ATORYCLIA [id number] [address] [place] CASE MANAGEMon 08-12-2023 CASE MANAGEM HNO ID: [id number] Author: Shannon Zelaya LSW Service: ? Author Type: Social Professionals Type: Care Mgt Progress Note Filed: 08/12/2023 2:26 PM Note Text: CARE MANAGEMENT PROGRESS NOTE SERVICE DATE: 08/12/2023 SERVICE TIME: 2:25 PM LOS: 1 day IMM Follow Up Copy Given: Yes Copy given to:: Patient Method: In Person Verbal confirmation. SIGNATURE: MARCELLA Mata PATIENT NAME: Lyric Padron DATE: August 12, 2023 TIME: 2:25 PM PAGER/CONTACT #: [phone] Normal [facility] CASE MGT INIT ASSESon 2022 CASE MGT INIT ASSES HNO ID: [id number] Author: Shannon Zelaya LSW Service: ? Author Type: Social Professionals Type: Care Mgt Initial Assessment Filed: 08/12/2023 2:20 PM Note Text: CARE MANAGEMENT: ASSESSMENT AND DISCHARGE PLAN SERVICE DATE: August 12, 2023 SERVICE TIME: 2:16 PM PCP: Geoffrey Adams MD Primary Contact: Extended Emergency Contact Information Primary Emergency Contact: Marisela Padron Address: [address] Mobile Relation: Spouse Secondary Emergency Contact: Mayank Padron Mobile Relation: Son Admission Status: Inpatient Insurance Provider: [employer] MED[employer]ARE PPO Discharge Planning requested by: Per Department Practice Potential Transition Plans No Services Indicated;Home Advance Directives Current Advance Directive: None 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 Attempted to Assist with AD Completion: Yes Action: Education Provided Current Living Arrangements and Support Lives with: Spouse/significant other Type of Residence: Private Residence (House) Support: Family members, Spouse/significant other How do you manage to accomplish the following: Independent: Ambulation;Bathe/Shower;Daniel ss;Going to the bathroom Needs Assistance: Medication Management;Meals/Meal Prep Current Services/Equipment Current Post-Acute Service(s): DME Current DME Type: Rolling walker, Cane (only uses cane on occasion) Discharge Planning Patient Goal(s): General wellness, Be able to go home [place] of Choice Explained: [place] of [place] Given: No Reason Not Given: No placements necessary Are you interested in bedside delivery of your medications? No Discharge Planning Participant(s): Patient;Spouse/significant other Patient/Family Comments: Caregiver Assessment: Caregiver is ready, willing and able to meet the patient's needs as recommended by the inter-professional team: Yes Name of Caregiver: spouse is supportive and provides the supervision and assistance that is needed. Transport at Discharge: Transportation Arrangements: Car Needs Prior to Discharge: Needs Prior to Discharge: None Post-Acute Discharge Plan: Pt lives with spouse in a home. Pt is independent with mobility and self care. Pt's spouse assists with IADLS and anything the Pt needs. Per Pt's spouse, Pt with early Dementia. Pt does still drive a little and remains active. Pt had a fall at home and thus was brought to the hospital. Pt was transferred from [place] [facility] for trauma service. OT rec is home. PT signed off as Pt declined and was moving independent in the room. Pt very hopeful to dc home today. Pt's spouse at bedside and will transport the Pt home. There are no dc concerns. Pt/spouse deny any financial, housing or food insecurities. There are no psychosocial concerns. DC plan: At this time there are no transitional care needs. Pt will dc home self care. Spouse to transport. SIGNATURE: MARCELLA Mata PATIENT NAME: Lyric Padron DATE: August 12, 2023 TIME: 2:15 PM CONTACT #: [phone] Normal [facility] CBC panel Auto (Bld)on 08-12 Erythrocyte distribution width (RBC) [Ratio] 12.6 % Normal 11.5-15.0 [facility] Comment on above: Order Comment: Speci men Type: BLOOD SPECIMENOrdering Facility: [facility] Address: [address] [place] [address] Performed By: #### 5 8410-2 ####[facility]ORATORYCLIA [id number] [address] [place] Hematocrit (Bld) [Volume fraction] 41.5 % Normal 39.0-51.0 [facility] Comment on above: Order Comment: Speci men Type: BLOOD SPECIMENOrdering Facility: [facility] Address: [address] [place] [address] Performed By: #### 5 8410-2 ####[facility]ORATORYCLIA [id number] [place] [address] [place] Hemoglobin (Bld) [Mass/Vol] 14.0 g/dL Normal 13.0-17.0 [facility] Comment on above: Order Comment: Speci men Type: BLOOD SPECIMENOrdering Facility: [facility] Address: [address] [place] [address] Performed By: #### 5 8410-2 ####[facility]ATORYCLIA [id number] [place] [address] [place] MCH (RBC) [Entitic mass] 30.4 pg Normal 26.0-34.0 [facility] Comment on above: Order Comment: Speci men Type: BLOOD SPECIMENOrdering Facility: [facility] Address: [address] [place] [address] Performed By: #### 5 8410-2 ####[facility]ATORYCLIA [id number] [address] MCHC (RBC) [Mass/Vol] 33.7 g/dL Normal 30.5-36.0 [facility] Comment on above: Order Comment: Speci men Type: BLOOD SPECIMENOrdering Facility: [facility] Address: [address] [place] [address] Performed By: #### 5 8410-2 ####[facility]ATORYCLIA [id number] [address] MCV (RBC) [Entitic vol] 90.0 fL Normal 80.0-100.0 [facility] Comment on above: Order Comment: Speci men Type: BLOOD SPECIMENOrdering Facility: [facility] Address: [address] [place] [address] Performed By: #### 5 8410-2 ####[facility]ATORYCLIA [id number] [address] Nucleated RBC (Bld) [#/Vol] 10*3/uL Normal <0.01 [facility] Comment on above: Order Comment: Speci men Type: BLOOD SPECIMENOrdering Facility: [facility] Address: [address] [place] [address] Performed By: #### 5 8410-2 ####[facility]ATORYCLIA [id number] [address] Platelet mean volume (Bld) [Entitic vol] 9.3 fL Normal 9.0-12.7 [facility] Comment on above: Order Comment: Speci men Type: BLOOD SPECIMENOrdering Facility: [facility] Address: [address] [place] [address] Performed By: #### 5 8410-2 ####[facility]ORATORYCLIA [id number] [place] [address] Platelets (Bld) [#/Vol] 211 10*3/uL Normal 150-400 [facility] Comment on above: Order Comment: George saldivar Type: BLOOD SPECIMENOrdering Facility: [facility] Address: [place] [address] Performed By: #### 5 8410-2 ####[facility]ATORYCLIA [id number] [address] OF [facility] RBC (Bld) [#/Vol] 4.61 10*6/uL Normal 4.20-6.00 [facility] Comment on above: Order Comment: Speci men Type: BLOOD SPECIMENOrdering Facility: [facility] Address: [address] [place] [address] Performed By: #### 5 8410-2 ####[facility]ATORYCLIA [id number] [address] WBC (Bld) [#/Vol] 11.83 10*3/uL High 3.70-11.00 [facility] Comment on above: Order Comment: Aaroni janna Type: BLOOD SPECIMENOrdering Facility: [facility] Address: [address] [place] [address] Performed By: #### 5 8410-2 ####[facility]ATORYCLIA [id number] [address] CNDSon 08-12-2023 [facility] HNO ID: [id number] Author: Lawrence Live DO Service: General Surgery Author Type: Resident Type: Discharge Summary Filed: 08/12/2023 3:29 PM Note Text: Attestation signed by Josué Rodriguez MD at 08/24/2023 11:48 AM Attending Attestation The patient will be discharged. I spent less than 30 minutes coordinating the discharge. Josué Rodriguez MD DISCHARGE SUMMARY PATIENT NAME: Lyric Padron Code Status: Not on file Highest Readmission Risk Score: 10 The 30 day readmissions risk score is derived from an internally validated risk model which evaluates patient level characteristics, utilization history, medication orders and lab results up until the day of discharge. Patients with a score of 40 or above are considered highest risk for readmission. Specific patient level drivers will be listed at the bottom of the summary. Admission Information Admission Information ADMIT DATE: 08/11/2023 DISCHARGE DATE: 08/12/2023 MY DOCTORS AND MEDICAL TEAM: My Main Hospital Doctor: Josué Rodriguez MD Primary Care Provider: Geoffrey Adams MD My Medical Team Members: Treatment Team: Attending Provider: Josué Rodriguez MD MY CONDITION AT DISCHARGE: Stable REASON I WAS IN THE HOSPITAL: Intracranial hemorrhage SUMMARY OF WHAT HAPPENED WHILE I WAS IN THE HOSPITAL: Patient was admitted following a transfer for an intracranial hemorrhage after a fall down stairs. Repeat imaging was stable. He was evaluated by OT/PT and felt to be stable for home going. He is now stable to be discharged home and should follow up with his PCP. He was evaluated by neurosurgery who recommended repeat CTH and MRI with a follow up in 4 weeks. OTHER PROBLEMS/DIAGNOSIS: Principal Problem: Subarachnoid hemorrhage (HCC) Resolved Problems: * No resolved hospital problems. * OPERATIONS PERFORMED WHILE IN THE HOSPITAL: None IMPORTANT TEST/PROCEDURES: No procedures performed TEST RESULTS NOT AVAILABLE AT THIS TIME: No pending results Discharge Disposition Discharge Disposition: Home With Self Care Activity When You Leave the Hospital May use stairs No walking restrictions Diet Instructions Resume your pre-hospital diet For Pain When You Leave the Hospital Use acetaminophen (Tylenol) as recommended on the bottle Wound/Surgical Site Care Wash your hands frequently, especially before touching your incision, after using restroom and before eating Call Your Doctor If There is an unusual odor from the wound area You have a severe headache You have difficulty urinating or pain when urinating You have lightheadedness, fainting, or confusion You have pain with urination, cloudy urine or foul smelling urine You have persistent nausea/vomiting over 24 hours You have persistent or heavy bleeding You have redness, swelling, pus or drainage from the wound You have swollen glands or cold and clammy skin Your temperature is greater than 101F Follow Up Appointments Follow-Up Appointment When: In 4 weeks Patient/Parents to call for appointment?: Yes Kwadwo Srinivasan MD, PhD [phone] [facility] [address] PCP Requested Referral Additional Provider to Provider Information: Principal Problem: Subarachnoid hemorrhage (HCC) Resolved Problems: * No resolved hospital problems. * Treatment Team: Attending Provider: Josué Rodriguez MD Transitions of Care Critical Issues: SPECIALIST FOLLOW-UP: Dr. Michaels LABS AND PROCEDURES PENDING AT DISCHARGE: No pending results. FOLLOW-UP APPOINTMENTS ALREADY SCHEDULED WITH A [facility] PROVIDER: Future Appointments Date Time Provider Department Center 08/24/2023 11:15 AM Jayda Ace PA-C [facility] 12/30/2023 3:00 PM Geoffrey Adams MD [facility] 07/31/2024 1:00 PM Josefa Jacobs PA-C [facility] [place] ALLERGIES No Known Allergies DISCHARGE MEDICATION: Medication List CONTINUE taking these medications acetaminophen 325 mg tablet Commonly known as: TYLENOL meloxicam 15 mg tablet Commonly known as: MOBIC Take 1 tablet by mouth once daily. With food. memantine 5 mg tablet Commonly known as: NAMENDA Take 1 tablet by mouth twice daily. minocycline 50 mg capsule Commonly known as: MINOCIN, DYNACIN Take 1 capsule by mouth twice daily. pravastatin 40 mg tablet Commonly known as: PRAVACHOL Take 1 tablet by mouth once daily. terazosin 5 mg capsule Commonly known as: HYTRIN Take 1 capsule by mouth daily at bedtime. The patient's risk for 30-day readmission is determined using the following contributing factors: Pt variables contributing to increased readmission risk: 10 Most Recent BUN Result 8.9 First Resulted Calcium During Admission 8 Active Medication Orders 1 (more content not included)... Normal [facility] ED NOTEon 08-12-2023 ED NOTE HNO ID: [id number] Author: Marge Kebede, JAY JAY Service: Emergency Medicine Author Type: Registered Nurse Type: ED Notes Filed: 08/12/2023 12:38 AM Note Text: Pt ambulatory to bathroom at this time. Gait steady. [facility] ED NOTE HNO ID: [id number] Author: Massiel Melgar, JAY JAY Service: Emergency Medicine Author Type: Registered Nurse Type: ED Notes Filed: 08/12/2023 12:15 AM Note Text: Report given to Marge GOYAL [facility] ED NOTE HNO ID: [id number] Author: Ladi Brizuela, JAY JAY Service: ? Author Type: Registered Nurse Type: ED Notes Filed: 08/12/2023 12:13 AM Note Text: Bed: 20-ED Expected date: Expected time: Means of arrival: Comments: ERIC [facility] NURSING PROGon 08-12-2023 NURSING PROG HNO ID: [id number] Author: Fredis Godinez, JAY JAY Service: Nursing Author Type: Registered Nurse Type: Nursing Progress Note Filed: 08/12/2023 4:57 PM Note Text: Dr. Live notified of patient/family needs related to recent CT scan results, prior to discharge. Dr Live Epic messaged to RN that the resident covering would come to room to provide any necessary details related to discharge. [facility] THERAPY NTon 08-12-2023 THERAPY NT HNO ID: [id number] Author: Margie Torres CCC-NUTRITION AIDE Service: Speech/Swallow Author Type: Speech Language Pathologist Type: Therapy (PT/OT/Speech/Resp) Filed: 08/12/2023 3:31 PM Note Text: Speech Therapy Speech Evaluation SERVICE DATE: 08/12/2023 SERVICE TIME: 1452 to 1510 ROOM: [place] [address] IMPRESSION: Communication deficits identified: Cognitive deficits Nursing Recommendations: Reinforce use of cognitive strategies Recommended Discharge Disposition: Outpatient Speech Therapy Justification for Recommended Discharge Disposition: Continued skilled NUTRITION AIDE care recommended after hospital discharge for:, new/worsened cognitive deficits related to current diagnosis Current Hospital Course: 08/11 CT Brain: minimal right frontoparietal subarachnoid, suspicious for small right sided subdural hygroma Reason for Hospital Admission: Fall Rehabilitation Precautions: Cognitive Linguistics Deficits Isolation Type: None Reason for Speech Therapy Consult: SAH Relevant Past Medical History: dementia/mild cognitive impairment Response to Therapy Interventions: Cognitive Deficits, Good Participation in activities, Receptive Family / Caregivers Continue skilled NUTRITION AIDE services due to : Education / training needs, Safety concerns Speech Therapy Problem List: Cognitive-Linguistic Impairment Subjective: Alert, up in chair and agreeable to evaluation with present Current Status Oral Hygiene: Clear, dry oral cavity Dentition: Retains Natural Dentition Current Feeding Method: Oral Current Diet Textures: Regular Consistency, Thin Liquids IDDSI Level 0 Current Level Of Communication: Verbal Current Management Of Secretions: Able to self-manage Oral Motor Exam: Within Functional Limits Speech/Cognitive/Language Speech Production: Within Functional Limits Expressive and Receptive Language: Within Functional Limits Cognition Cognitive Status: per neurology note on [facility] in 02/2023, neuropsych evaluation was recommended at that time though patient declined Attention Deficit: Selective, Sustained Memory Deficits: Immediate, Short Term Executive Function Deficits: Problem Solving, Safety Awareness The Cognitive Log (Cog-Log) is designed to be a quick quantitative measure of cognition status for use at the bedside with rehabilitation inpatients. It is intended for individuals who have achieved consistent accurate orientation, such as measured by the Orientation Log (O-Log). The Cog-Log can be used to document cognitive progress on a daily basis. All items are scored from 0 to 3 for a total possible score of 30. 3 = correct spontaneous response 2 = correct upon logical cueing (e.g., That was yesterday, so today must be... ) 1 = correct upon multiple choice or phonemic cueing 0 = incorrect despite cueing, inappropriate response, or unable to respond Stimulus Response/Score Date 12/17 Time 12/17 Name of [facility] 12/17 Repeat Address 0 20-1 2 Months Reversed 30 Seconds 11/19 [facility] Go/No-Go 12/17 Address Recall 10/19 Total Patient /Caregiver Goals: Improve Cognition, Go Home Goals for Plan of Care: Goals: COGNITION: Patient will demonstrate knowledge of taught compensatory strategies for functional cognitive-linguistic skills Cognitive Goals: Patient will improve functional auditory memory skills to 80% accuracy given moderate cues so that the patient may apply safety precautions for personal welfare. Patient will demonstrate use of simple problem solving skills with 80% accuracy given moderate cues so that the patient may participate in personal discharge planning. Speech Rehab Potential: Good Patient will be discontinued from speech therapy when no further skilled needs are identified in this setting. PLAN: ST Frequency: 2 Times Per Week Treatment Interventions: Cognitive-Linguistic Management Plan for next visit: Cognitive Linguistic Strategies Plan of Care Developed with: Patient, Family Results and Recommendations Discussed With: Patient, Physician, Family TREATMENT INTERVENTIONS: Therapy Diagnosis: Cognitive deficits following cerebral infarction Interventions Provided: Speech Language Eval (22252) $ Speech Language Eval (41460) Billed Units: 1 unit Training and education provided in: Caregiver Education, Cognitive Linguistic Strategies The following therapeutic skills were used:: Discharge planning, Education on role of discipline / importance of activity, Family / caregiver counseling / training, Verbal cuing Skilled Treatment Time (minutes): 18 Home Environment Prior Functional Level: Within Functional Limits Patient Lives With: Spouse Prior Swallowing Function/Diet Textures: Regular Consistency, Thin Liquids IDDSI Level 0 Please see discipline specific clinical documentation flowsheet for complete details for this therapy evaluation/treatment. SIGNATURE: Margie Torres CCC-NUTRITION AIDE PATIENT NAME: Lyric Padron (more content not included)... Normal [facility] THERAPY NT HNO ID: [id number] Author: Yudith Dela Cruz OTR/[place] Service: Occupational Therapy Author Type: Occupational Therapist Type: Therapy (PT/OT/Speech/Resp) Filed: 08/12/2023 11:53 AM Note Text: Occupational Therapy Evaluation SERVICE DATE: 08/12/2023 SERVICE TIME: 1000 to 1015 ROOM: [place] [address] Recommended Discharge Disposition: Home Recommended Discharge Disposition Comments: Spouse able to assist as needed at home Anticipated Discharge Needs: Physical Assist at Home Physical Assist at Home for: Transportation, Shopping OT 6 Clicks Score: 21 Patient seen bedside, agreeable to OT. Discussed home safety with patient, he demo's good understanding. Pt very motivated to work with OT. Patient has been getting up in the room on his own to the bathroom. He is demonstrating good safety awareness while completing ADLs tasks with therapist. Patient demos fair+ memory. Recommend Home with spouse assist as needed. No further OT needs at d/c. Precautions/Activity Restrictions: Fall Risk Isolation Type: None Current Hospital Course: CTH stable minimal right frontoparietal subarachnoid hemorrhage, right parietal scalp soft tissue swelling and probable laceration Reason for Hospital Admission: Fall Relevant Past Medical History: dementia, hyperlipid Response to Therapy Interventions: Good Participation in Activities Cognition/Communication Deficits Responsiveness: Alert Follows Commands: 3-step Commands Cognitive Clinical Tests and Screens: Mini Cog Clock Draw Test: 2-Normal Word Recall: 2-recalled words Mini Cog Score: 4 Home Environment Patient Lives With: Spouse Assistance Available: 24-Hour Tub/Shower Type: walk in shower Laundry: spouse does the laundry Equipment Owned: Cane Prior Functional Level: Required Assistance Assistance Required With: Cleaning, Laundry Prior Functional Level Comments: Per patient he is independent with self care and his spouse assists with IADLS. he still drives Baseline Cognition: Oriented to self, Oriented to place, Oriented to time, Oriented to situation Occupational Factors Life Roles: Retired, Spouse/Significant Other, Family Member, Friend Identified Strengths: Involvement in Hobbies/Leisure Activities, Good Support System, Positive Coping Strategies, Self-Regulation, Strong Awareness of Deficit(s), Effective Communication Skills, Open to Adaptive Equipment/Strategies, Motivation, Safety Awareness, Health Literacy, Memory/Attention, Follows Multi-Step Commands, Problem-Solving Skills, Access to Healthcare Identified Barriers: Difficulty with ADLs/IADLs Subjective: Pt seen bedside, agreeable to OT, no complaints this a.m. CURRENT FUNCTIONAL STATUS: Most recent performance Current Activities of Daily Living Assist Level Additional Information Feeding Independent Grooming Set Up Bathing Upper Body Set Up Bathing Lower Body Contact Guard Assistance Dressing Upper Body Independent Dressing Lower Body Contact Guard Assistance Toileting Independent Instrumental Activities of Daily Living Assist Level Additional Information Meal/Beverage Prep Cleaning Laundry Medication Management with Strategies Functional Mobility Assist Level Additional Information Rolling Supine to Sit Independent Sit to Supine Independent Scooting Independent Sit to Stand Supervision Stand to Sit Supervision Bed to Chair Toilet/Commode Supervision Shower Functional Mobility Supervision Blank gaines indicate activity not attempted Range of Motion: WFL Strength: WFL Activity Tolerance: Sitting Activity, Standing Activity Sitting Activity: LB ADLS Sitting Activity Tolerance (in minutes): 4 Standing Activity: functional mobility Standing Activity Tolerance (in minutes): 3 Learning/Educational Needs: Discharge Plan, Self Care, Safety Goals for Plan of Care: Patient will be discontinued from Occupational Therapy when no further skilled needs are identified in this setting. PLAN: OT Frequency: Discontinue Therapy Services Reasons Therapy Services Discontinued: No skilled needs Plan of Care developed with: Patient TREATMENT INTERVENTIONS: Therapy Diagnosis: Decreased activities of daily living (ADL) Interventions Provided: Evaluation $ Evaluation - Low (69616) Billed Units: 1 unit Training AND Education Provided in: Cognitive Skills, Discharge Planning, Expected Functional Level, Functional Mobility Involving ADLs, Home Set-up/Modifications, Lower Extremity Dressing, Role of Occupational Therapy The Following Therapeutic Skills Were Used: Activity Dosing, Cues for Sequencing/Proper Technique for Activity, Cuing Verbal Skilled Treatment Time (minutes): 15 Please see discipline specific clinical documentation flowsheet for complete details for this therapy evaluation/treatment. SIGNATURE: Yudith Dela Cruz OTR/L PATIENT NAME: Lyric Padron DATE: August 12, 2023 TIME: 11:50 AM Normal [facility] THERAPY NT HNO ID: [id number] Author: Yissel Owens PT Service: Physical Therapy Author Type: Physical Therapist Type: Therapy (PT/OT/Speech/Resp) Filed: 08/12/2023 10:43 AM Note Text: PHYSICAL THERAPY MISSED VISIT SERVICE DATE: 08/12/2023 SERVICE TIME: 1041 to 1041 ROOM: [place] [address] Patient not seen due to (no skilled needs). Per discussion with OT, patient up ambulating independently in room. Patient reported being active with Outpatient PT and denied needs at this time. PT will sign off. SIGNATURE: Yissel Owens, PT PATIENT NAME: Lyric Padron DATE: August 12, 2023 TIME: 10:42 AM Normal [facility] ALLIED HEALTHon 08-11-2023 ALLIED HEALTH HNO ID: [id number] Author: Ashley Sofia RT(R) Service: Radiology Author Type: Technologist Type: Allied Health Filed: 08/11/2023 7:40 AM Note Text: Radiology Service Progress Note PATIENT NAME: Lyric Padron DATE OF SERVICE: August 11, 2023 TIME: 7:40 AM PATIENT IDENTITY VERIFICATION COMPLETED USING TWO (2) IDENTIFIERS: Name and Date of confirmed by patient verbally and Name and Date of confirmed by identification band. FALL SCREENING: Has the patient had 2 falls in the last year or 1 fall with injury or currently using an Ambulatory Assistive Device (Walker, Cane, Wheelchair, Crutches, etc.)? Emergency Room Patient: Screened in ED PATIENT GENDER DATA: Male PATIENT RELEVANT IMPLANT DATA REVIEWED: Not Applicable RADIOLOGY DEPARTMENT: CT; Exam(s) Completed: Brain PERIPHERAL IV DATA: Not applicable SIGNED BY: Ashley Sofia RT(R) August 11, 2023 7:40 AM Normal [facility] CBC panel Auto (Bld)on 08-11 Erythrocyte distribution width (RBC) [Ratio] 12.7 % Normal 11.5-15.0 [facility] Comment on above: Order Comment: Speci men Type: BLOOD SPECIMENOrdering Facility: [facility] Address: [address] [place] [address] Performed By: #### 5 8410-2 ####[facility] LABORATORYCLIA [id number] [address] STATES OF [facility] Hematocrit (Bld) [Volume fraction] 41.7 % Normal 39.0-51.0 [facility] Comment on above: Order Comment: Speci men Type: BLOOD SPECIMENOrdering Facility: [facility] Address: [address] [place] [address] Performed By: #### 5 8410-2 ####[facility]ORATORYCLIA [id number] [address] [place] Hemoglobin (Bld) [Mass/Vol] 14.3 g/dL Normal 13.0-17.0 [facility] Comment on above: Order Comment: Speci men Type: BLOOD SPECIMENOrdering Facility: [facility] Address: [address] [place] [address] Performed By: #### 5 8410-2 ####[facility]ORATORYCLIA [id number] [address] [place] MCH (RBC) [Entitic mass] 31.2 pg Normal 26.0-34.0 [facility] Comment on above: Order Comment: Speci men Type: BLOOD SPECIMENOrdering Facility: [facility] Address: [address] [place] [address] Performed By: #### 5 8410-2 ####[facility]ORATORYCLIA [id number] [address] STATES OF [facility] MCHC (RBC) [Mass/Vol] 34.3 g/dL Normal 30.5-36.0 [facility] Comment on above: Order Comment: Speci men Type: BLOOD SPECIMENOrdering Facility: [facility] Address: [address] [place] [address] Performed By: #### 5 8410-2 ####[facility]ORATORYCLIA [id number] [address] STATES [facility] MCV (RBC) [Entitic vol] 90.8 fL Normal 80.0-100.0 [facility] Comment on above: Order Comment: Speci men Type: BLOOD SPECIMENOrdering Facility: [facility] Address: [address] [place] [address] Performed By: #### 5 8410-2 ####[facility]ATORYCLIA [id number] [address] Nucleated RBC (Bld) [#/Vol] 10*3/uL Normal <0.01 [facility] Comment on above: Order Comment: Speci men Type: BLOOD SPECIMENOrdering Facility: [facility] Address: [address] [place] [address] Performed By: #### 5 8410-2 ####[facility]ORATORYCLIA [id number] [address] [place] Platelet mean volume (Bld) [Entitic vol] 9.6 fL Normal 9.0-12.7 [facility] Comment on above: Order Comment: Speci men Type: BLOOD SPECIMENOrdering Facility: [facility] Address: [address] [place] [address] Performed By: #### 5 8410-2 ####[facility]ATORYCLIA [id number] [address] [place] Platelets (Bld) [#/Vol] 250 10*3/uL Normal 150-400 [facility] Comment on above: Order Comment: Speci men Type: BLOOD SPECIMENOrdering Facility: [facility] Address: [address] [place] [address], [place] [address] Performed By: #### 5 8410-2 ####[facility]ORATORYCLIA [id number] [place] [id number] [facility] [place] RBC (Bld) [#/Vol] 4.59 10*6/uL Normal 4.20-6.00 [facility] Comment on above: Order Comment: Speci men Type: BLOOD SPECIMENOrdering Facility: [facility] Address: [place] [address] Performed By: #### 5 8410-2 ####[facility] LABORATORYCLIA [id number] [place] [id number] [place] WBC (Bld) [#/Vol] 12.87 10*3/uL High 3.70-11.00 [facility] Comment on above: Order Comment: Speci men Type: BLOOD SPECIMENOrdering Facility: [facility] Address: Ties[address] [facility] [place] [id number] Performed By: #### 5 8410-2 ####[facility] LABORATORYCLIA [id number] [place] [id number] [facility] CONSULTon 08-11-2023 CONSULT HNO ID: [id number] Author: Kwadwo Srinivasan MD, PhD Service: Neurosurgery Author Type: Physician Type: Consults Filed: 08/12/2023 2:33 PM Note Text: CONSULT: NEUROSURGERY SERVICE Patient Name: Lyric Padron Date of : 1955 SERVICE DATE: 08/11/2023 SERVICE TIME: Call from Trauma 0636; examined 0655 REASON FOR CONSULT: [facility] REQUESTING PHYSICIAN: Maria T PRIMARY CARE PHYSICIAN: Geoffrey Adams MD CHIEF COMPLAINT: head pain HISTORY OF PRESENT ILLNESS : Mr Padron is a very pleasant 68 year old male with a PMH below, who was found down by his . He states he's been unsteady on his feet lately, but doesn't remember events of last night. He believes he fell and struck his head. He cannot recall any other recent falls. He c/o head pain, more right sided scalp where he has a laceration. He denies headache, dizziness, n/v or vision changes. He denies any recent use of blood thinning agents. He stated he occasionally will take an ASA but hasn't anytime recently. PAST MEDICAL HISTORY Diagnosis Date Arthritis BPH with obstruction/lower urinary tract symptoms Rosacea Subarachnoid hemorrhage (HCC) 08/11/2023 PAST SURGICAL HISTORY Procedure Laterality Date PAST SURGICAL HISTORY OF flexible cystoscopy PAST SURGICAL HISTORY OF 1959 tonsillectomy PAST SURGICAL HISTORY OF 2018 left eye surgery TRANSURETHRAL ELEC-SURG PROSTATECTOM N/A 08/18/2021 TRANSURETHRAL ELEC-SURG PROSTATECTOM 2019 FAMILY HISTORY Problem Relation Age of Onset Arthritis Mother Cancer Mother melanoma Heart Mother Viral myocarditis. GI Father ulcers ALLERGIES No Known Allergies Current Facility-Administered Medications Medication Dose Route Frequency Provider Last Rate Last Admin NaCl 0.9% iv flush bag 20 mL INTRAVENOUS PRN Lawrence Live, DO sodium chloride 0.65 % 2 [place] EACH NOSTRIL PRN Lawrence Live, DO 2 [place] at 08/11/23 0803 terazosin 5 mg cap(s) (HYTRIN) 5 mg ORAL AT BEDTIME Lawrence Live, DO memantine 5 mg tab(s) (NAMENDA) 5 mg ORAL BID Lawrence Live, DO pravastatin 40 mg tab(s) (PRAVACHOL) 40 mg ORAL DAILY Lawrence Live, DO ondansetron 4 mg tab(s) (ZOFRAN) 4 mg ORAL q 6 H PRN Lawrence Live, DO Or ondansetron (PF) 4 mg injection (ZOFRAN) 4 mg INTRAVENOUS q 6 H PRN Lawrence Live, DO acetaminophen 975 mg tab(s) (TYLENOL) 975 mg ORAL q 6 H PRN Lawrence Live, DO Current Outpatient Medications Medication Sig Dispense Refill terazosin (HYTRIN) 5 mg capsule Take 1 capsule by mouth daily at bedtime. 90 capsule 3 meloxicam (MOBIC) 15 mg tablet Take 1 tablet by mouth once daily. With food. 30 tablet 1 memantine (NAMENDA) 5 mg tablet Take 1 tablet by mouth twice daily. 60 tablet 2 minocycline (MINOCIN, DYNACIN) 50 mg capsule Take 1 capsule by mouth twice daily. 180 capsule 3 pravastatin (PRAVACHOL) 40 mg tablet Take 1 tablet by mouth once daily. 90 tablet 3 acetaminophen (TYLENOL) 325 mg tablet Take 2 tablets by mouth every 6 hours as needed for Pain. 0 COMPLETE REVIEW OF SYSTEMS - 10 Systems were reviewed and otherwise Noncontributory but that in the HPI PAIN ASSESSMENT: see HPI NEURO: see HPI MEDS: Current Facility-Administered Medications Medication Dose Route Frequency NaCl 0.9% iv flush bag 20 mL INTRAVENOUS PRN sodium chloride 0.65 % 2 [place] 2 [place] EACH NOSTRIL PRN memantine 5 mg tab(s) (NAMENDA) 5 mg ORAL BID pravastatin 40 mg tab(s) (PRAVACHOL) 40 mg ORAL DAILY ondansetron 4 mg tab(s) (ZOFRAN) 4 mg ORAL q 6 H PRN Or ondansetron (PF) 4 mg injection (ZOFRAN) 4 mg INTRAVENOUS q 6 H PRN acetaminophen 975 mg tab(s) (TYLENOL) 975 mg ORAL q 6 H PRN OBJECTIVE: BP 134/77 Pulse 88 Temp (Src) 98.3 (Oral) Resp 17 Ht 5' 6 (1.68m) Wt 155 lb (70.3kg) SpO2 97% BMI 25.03 kg/(m2). O2 Therapy: Room Air Recent Labs 08/11/23 0637 08/11/23 0636 NA 140 -- K 4.4 -- CHLOR 107* -- CO2 21* -- BUN 13 -- CREAT 0.88 -- GLUC 125* -- ANION 12 -- CA 8.9 -- ALB 3.8* -- ALT 12 -- ALKPHOS 82 -- TBILI 0.4 -- WBC -- 12.87* HB -- 14.3 HCT -- 41.7 PLT -- 250 INR -- 0.9 PHYSICAL EXAM: GENERAL: WDWN male; awake and alert; cooperative; pleasant; NAD HEENT: normocephalic; right sided scalp lac with dried blood LUNGS: Unlabored breathing NECK/BACK: ROM appropriate; no TTP CARDIAC: rate and rhythm as above ABDOMEN: Soft, non-tender, non-distended EXTREMITIES: MINER, No deformities, No edema SKIN: Skin color normal; texture, turgor, temperature normal; No rashes or lesions NEUROLOGICAL: Mental Status: AANDOx3; follows commands easily Speech: clear and fluent; no aphasia Cranial Nerves: CNII: Visual acuity normal, Visual gaines full to confrontation CNIII, IV, : Pupils equal, round and reactive to light, full extraoccular movements without nystagmus, no ptosis CN V: Facial sensation intact bilaterally to fine touch CN VII: Facial muscles (more content not included)... Normal [facility] CT BRAIN WO IVCONon 08-11-20 CT BRAIN WO IVCON * * *Final Report* * * DATE OF EXAM: Aug 11 2023 7:47AM [facility] 0504 - CT BRAIN WO IVCON / PROCEDURE REASON: Headache, sudden, severe * * * * Physician Interpretation * * * * EXAMINATION: CT BRAIN WITHOUT IV CONTRAST CLINICAL HISTORY: Headache, sudden, severe. Subarachnoid hemorrhage, follow-up. TECHNIQUE: Serial axial images without IV contrast were obtained from the vertex to the foramen magnum. MQ: [id number] CT Radiation dose: Integrated Dose-Length Product (DLP) for this visit = 806 mGy*cm CT Dose Reduction Employed: [employer] COMPARISON: MRI brain 05/17/2022. CT brain from outside institution performed earlier on 08/11/2023 RESULT: Financial Aid Counselor (topogram) images: Unremarkable. Post-operative change: None. Acute change: No evidence of an acute infarct or other acute parenchymal process. Hemorrhage: There is a small low-density subdural fluid collection along the right cerebral convexity has density similar to CSF suspicious for small subdural hygroma. Minimal subarachnoid hemorrhage noted in the right central sulcus appears similar. No other evidence of acute intracranial hemorrhage. ECASS hemorrhagic transformation score: Not Applicable Mass Lesion / Mass Effect: No significant mass effect. No midline shift. Chronic change: Scattered patchy foci of low attenuation are present within supratentorial white matter which is a nonspecific finding but likely represents mild microvascular ischemia. Parenchyma: There is moderate generalized volume loss. Ventricles: The ventricles are within normal limits of size and configuration for age. Paranasal sinuses and skull base: There is right parietal scalp soft tissue swelling with soft tissue gas suspicious for laceration. The visualized paranasal sinuses are grossly clear. The skull base and imaged soft tissues are otherwise unremarkable. IMPRESSION: 1. Stable minimal right frontoparietal subarachnoid hemorrhage. 2. Findings suspicious for small right sided subdural hygroma. This was not present on prior MRI brain. 3. Right parietal scalp soft tissue swelling and probable laceration. 4. Generalized brain parenchymal volume loss. Chronic small vessel ischemic changes of the supratentorial white matter. 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: PSCB Transcribe Date/Time: Aug 11 2023 8:36A Dictated by : DEEPAK BENITEZ MD This examination was interpreted and the report reviewed and electronically signed by: DEEPAK BENITEZ MD on Aug 11 2023 9:05AM EST [id number] Normal [facility] Comprehensive metabolic 2000 panelon 08-11-2023 Albumin [Mass/Vol] 3.8 g/dL Low 3.9-4.9 [facility] Comment on above: Order Comment: Speci men Type: BLOOD SPECIMENOrdering Facility: [facility] Address: [address] [place] [address] Performed By: #### 3 040-3, 91205-6 ####[facility] LABORATORYCLIA [id number] [place] [address] [place] ALP [Catalytic activity/Vol] 82 U/L Normal 38-113 [facility] Comment on above: Order Comment: Speci men Type: BLOOD SPECIMENOrdering Facility: [facility] Address: [address] [place] [address] Performed By: #### 3 040-3, 69277-1 ####[facility]ORATORYCLIA [id number] [place] [address] [place] ALT With P-5'-P [Catalytic activity/Vol] 12 U/L Normal 10-54 [facility] Comment on above: Order Comment: Speci men Type: BLOOD SPECIMENOrdering Facility: [facility] Address: [address] [place] [address] Performed By: #### 3 040-3, 84346-0 ####[facility]ORATORYCLIA [id number] [place] [address] [place] Anion gap [Moles/Vol] 12 mmol/L Normal 9-18 [facility] Comment on above: Order Comment: Speci men Type: BLOOD SPECIMENOrdering Facility: [facility] Address: [address] [place] [address] Performed By: #### 3 040-, ####[facility]ATORYCLIA [id number] [place] [address] [place] AST With P-5'-P [Catalytic activity/Vol] Normal [facility] Comment on above: Order Comment: Speci men Type: BLOOD SPECIMENOrdering Facility: [facility] Address: [address] [place] [address] Result Comment: Unab le to assay due to interference from hemolysis. Suggest reorder as clinically indicated. Performed By: #### 3 -, ####[facility]ATORYCLIA [id number] [place] [address] [place] Bilirubin [Mass/Vol] 0.4 mg/dL Normal 0.2-1.3 [facility] Comment on above: Order Comment: Speci men Type: BLOOD SPECIMENOrdering Facility: [facility] Address: [address] [place] [address] Performed By: #### 3 , ####[facility]ATORYCLIA [id number] [place] [address] [place] Calcium [Mass/Vol] 8.9 mg/dL Normal 8.5-10.2 [facility] Comment on above: Order Comment: Speci men Type: BLOOD SPECIMENOrdering Facility: [facility] Address: [address] [place] [address] Performed By: #### 3 , ####[facility]ATORYCLIA [id number] [place] [address] [place] Chloride [Moles/Vol] 107 mmol/L High 97-105 [facility] Comment on above: Order Comment: Speci men Type: BLOOD SPECIMENOrdering Facility: [facility] Address: [address] [place] [address] Performed By: #### 3 040-, ####[facility]ATORYCLIA [id number] [place] [address] [place] CO2 [Moles/Vol] 21 mmol/L Low 22-30 [facility] Comment on above: Order Comment: Speci janna Type: BLOOD SPECIMENOrdering Facility: [facility] Address: [address] [place] [address] Performed By: #### 3 040-3, 69393-3 ####[facility]ATORYCLIA [id number] [address] [place] Creatinine [Mass/Vol] 0.88 mg/dL Normal 0.73-1.22 [facility] Comment on above: Order Comment: Speci men Type: BLOOD SPECIMENOrdering Facility: [facility] Address: [address] [place] [address] Performed By: #### 3 040-3, 46927-8 ####[facility] [id number] [place] [id number] [facility] Creatinine and Glomerular filtration rate.predicted panel (S/P/Bld) 93 mL/min/1.73m??? Normal >=60 [facility] Comment on above: Order Comment: George janna Type: BLOOD SPECIMENOrdering Facility: [facility] Address: [address] [place] [address] Result Comment: Katerine mated Glomerular Filtration Rate (eGFR) is calculated using the 2020 CKD-EPI creatinine equation. This equation utilizes serum creatinine, sex, and age as parameters. The creatinine assay has traceable calibration to isotope dilution-mass spectrometry. Refer to KDIGO guidelines for clinical interpretation. In patients with unstable renal function, e.g. those with acute kidney injury, the eGFR may not accurately reflect actual GFR. Performed By: #### 3 040-3, 76663-0 ####[facility]ATORYCLIA [id number] [place] [address] [place] Glucose [Mass/Vol] 125 mg/dL High 74-99 [facility] Comment on above: Order Comment: George saldivar Type: BLOOD SPECIMENOrdering Facility: [facility] Address: [address] [place] [address] Result Comment: The [place] Diabetes Association (ADA) provides guidance for cutoff values for fasting glucose and random glucose. The ADA defines fasting as no caloric intake for at least 8 hours. Fasting plasma glucose results between 100 to 125 mg/dL indicate increased risk for diabetes (prediabetes). Fasting plasma glucose results greater than or equal to 126 mg/dL meet the criteria for diagnosis of diabetes. In the absence of unequivocal hyperglycemia, results should be confirmed by repeat testing. In a patient with classic symptoms of hyperglycemia or hyperglycemic crisis, random plasma glucose results greater than or equal to 200 mg/dL meet the criteria for diagnosis of diabetes. Reference: Standards of Medical Care in Diabetes 2016, [place] Diabetes Association. Diabetes Care. 2016.39(Suppl 1). Performed By: #### 3 , ####[facility]ATORYCLIA [id number] [place] [address] [place] Potassium [Moles/Vol] 4.4 mmol/L Normal 3.7-5.1 [facility] Comment on above: Order Comment: George sadlivar Type: BLOOD SPECIMENOrdering Facility: [facility] Address: [address] [place] [address] Performed By: #### 3 , ####[facility]ATORYCLIA [id number] [place] [address] [place] Protein [Mass/Vol] 6.7 g/dL Normal 6.3-8.0 [facility] Comment on above: Order Comment: George saldivar Type: BLOOD SPECIMENOrdering Facility: [facility] Address: [address] [place] [address] Performed By: #### 3 , ####[facility]ATORYCLIA [id number] [place] [address] [place] Sodium [Moles/Vol] 140 mmol/L Normal 136-144 [facility] Comment on above: Order Comment: George saldivar Type: BLOOD SPECIMENOrdering Facility: [facility] Address: [address] [place] [address] Performed By: #### 3 , ####[facility]ATORYCLIA [id number] [place] [address] [place] Urea nitrogen [Mass/Vol] 13 mg/dL Normal 9-24 [facility] Comment on above: Order Comment: Speci men Type: BLOOD SPECIMENOrdering Facility: [facility] Address: [address] [place] [address] Performed By: #### 3 040-3, 65182-5 ####[facility]ORATORYCLIA [id number] [place] [address] [facility] ED NOTEon 08-11-2023 ED NOTE HNO ID: [id number] Author: Massiel Melgar, JAY JAY Service: Emergency Medicine Author Type: Registered Nurse Type: ED Notes Filed: 08/12/2023 12:14 AM Note Text: Received report from Angelo GOYAL [facility] ED NOTE HNO ID: [id number] Author: Chuck Angeles RN Service: Emergency Medicine Author Type: Registered Nurse Type: ED Notes Filed: 08/11/2023 11:22 AM Note Text: Patient ambulated to bathroom with assist. Gait somewhat unsteady - patient states he feels weak and stiff from being in bed so long. Denies dizziness or pain. [facility] ED NOTE HNO ID: [id number] Author: Radha Jackson RN Service: Emergency Medicine Author Type: Registered Nurse Type: ED Notes Filed: 08/11/2023 11:03 AM Note Text: Report given to Angelo GOYAL [facility] ED NOTE HNO ID: [id number] Author: Tana Kendall RN Service: ? Author Type: Registered Nurse Type: ED Notes Filed: 08/11/2023 11:01 AM Note Text: Bed: 41-ED Expected date: Expected time: Means of arrival: Comments: Room 8 [facility] ED NOTE HNO ID: [id number] Author: Radha Jackson RN Service: Emergency Medicine Author Type: Registered Nurse Type: ED Notes Filed: 08/11/2023 9:59 AM Note Text: Trauma team at bedside at this time updating patient about plan of care [facility] ED NOTE HNO ID: [id number] Author: Radha Jackson, JAY JAY Service: Emergency Medicine Author Type: Registered Nurse Type: ED Notes Filed: 08/11/2023 7:23 AM Note Text: Lido at bedside with [facility] ED NOTE HNO ID: [id number] Author: Gio Hager RN Service: Emergency Medicine Author Type: Registered Nurse Type: ED Notes Filed: 08/11/2023 7:07 AM Note Text: Report given to Radha RN / Alejandra RN [facility] ED NOTE HNO ID: [id number] Author: Gio Hager RN Service: Emergency Medicine Author Type: Registered Nurse Type: ED Notes Filed: 08/11/2023 6:58 AM Note Text: CT notified for 729 scan [facility] ED NOTE HNO ID: [id number] Author: Miko Delong RN Service: ? Author Type: Registered Nurse Type: ED Notes Filed: 08/11/2023 6:31 AM Note Text: Bed: 08-ED Expected date: Expected time: Means of arrival: Comments: srikanth [facility] ED PROV NOTEon 08-11-2023 ED PROV NOTE HNO ID: [id number] Author: Danae Mcclendon MD Service: Emergency Medicine Author Type: Physician Type: ED Provider Notes Filed: 08/11/2023 9:25 AM Note Text: This patient was signed out to me by . Trauma surgery service and repeated the patient's head CT. The CT demonstrated a stable minimal right frontoparietal subarachnoid hemorrhage. There are findings suspicious for small right sided subdural hygroma. This was not present on prior MRI brain. There is right parietal scalp soft tissue swelling and a probable laceration. There is generalized brain parenchymal volume loss with chronic small vessel ischemic changes of the supratentorial white matter. As the patient has not had any increase size in his intracranial bleeding compared to his initial CT, the trauma service will be admitting the patient to a regular surgical floor under the service of Dr. Waller in guarded condition. DANAE MCCLENDON 08/11/23 0925 [facility] ED PROV NOTE HNO ID: [id number] Author: Ian Ansari DO Service: Emergency Medicine Author Type: Resident Type: ED Provider Notes Filed: 08/11/2023 7:52 AM Note Text: Attestation signed by Zaid Zabala MD at 09/18/2023 10:25 PM Attending Attestation Note: Walker findings confirmed. I evaluated the patient in conjunction with the resident physician. I personally examined the patient. I discussed the patient with the resident physician. I reviewed the resident physician's note. I was present for walker portions of and personally supervised any/all procedures. I personally saw the patient and performed a substantive portion of the visit including all aspects of the medical decision making. Signature: Zaid Zabala MD Date: 09/18/2023 Time: 10:25 PM ED Provider Note Patient Name: Lyric Padron : 1955 SERVICE DATE: 08/11/23 History Patient presents with: Functional Transfers: Pt arrives via [facility] from [facility] as transfer for trauma c/s. Pt fell down a few steps at home, striking his head, sustaining a small SAH, with a lac to posterior scalp. Pt arrives [facility] without neuro deficits. HPI Lyric Padron is a 68 year old male with PMHx of hyperlipidemia and dementia who presents to the emergency department after he was found to have a fall with subsequent subarachnoid hemorrhage at outside emergency department. Patient reports last evening he experienced a fall, for which he does not remember how it happened or the event itself. Reports mild pain at the site where he struck the back of his head. Denies any blood thinner medication use. Patient denies any headache, dizziness, neck pain, back pain, chest pain, abdominal pain, shortness of breath, nausea, vomiting, diarrhea, constipation, or any numbness/tingling/swelling in extremities. Denies any urinary urgency/frequency/dysuria. Complete ROS as documented below. PAST MEDICAL HISTORY Diagnosis Date Arthritis BPH with obstruction/lower urinary tract symptoms Rosacea PAST SURGICAL HISTORY Procedure Laterality Date PAST SURGICAL HISTORY OF flexible cystoscopy PAST SURGICAL HISTORY OF 1959 tonsillectomy PAST SURGICAL HISTORY OF 2018 left eye surgery TRANSURETHRAL ELEC-SURG PROSTATECTOM N/A 08/18/2021 TRANSURETHRAL ELEC-SURG PROSTATECTOM 2019 FAMILY HISTORY Problem Relation Age of Onset Arthritis Mother Cancer Mother melanoma Heart Mother Viral myocarditis. GI Father ulcers Social History Tobacco Use Smoking status: Every Day Packs/day: 0.50 Years: 20.00 Additional pack years: 0.00 Total pack years: 10.00 Types: Cigarettes Smokeless tobacco: Former Vaping Use Vaping Use: Never used Substance and Sexual Activity Alcohol use: Not Currently Drug use: Never Sexual activity: Not Currently Partners: Female ALLERGIES No Known Allergies Review of Systems Constitutional: Negative for chills and fever. HENT: Negative for congestion and hearing loss. Eyes: Negative for visual disturbance. Respiratory: Negative for cough and shortness of breath. Cardiovascular: Negative for chest pain and leg swelling. Gastrointestinal: Negative for abdominal pain, nausea and vomiting. Genitourinary: Negative for decreased urine volume, difficulty urinating, dysuria, frequency and urgency. Musculoskeletal: Negative for back pain and neck pain. Skin: Positive for wound. Negative for color change. Neurological: Positive for headaches. Negative for dizziness, seizures, syncope and weakness. Psychiatric/Behavioral: Negative for agitation, behavioral problems and confusion. The patient is not nervous/anxious. Physical Exam Vitals [08/11/23 0627] BP Pulse Temp Temp src Resp SpO2 Weight Height 133/99 (!) 104 36.8 ?C (98.3 ?F) Oral 17 95 % 70.3 kg (155 lb) 1.676 m (5' 6 ) Physical Exam Vitals and nursing note reviewed. Constitutional: General: He is not in acute distress. Appearance: Normal appearance. He is not ill-appearing, toxic-appearing or diaphoretic. HENT: Head: Normocephalic. Comments: Right occipital cephalhematoma with approximately 3 cm overlying laceration. Dried blood and matted hair over the surface of the wound with no signs of active bleeding noted. Right Ear: External ear normal. Left Ear: External ear normal. Nose: Nose normal. No rhinorrhea. Mouth/Throat: Mouth: Mucous membranes are moist. Pharynx: Oropharynx is clear. Eyes: Extraocular Movements: Extraocular movements intact. Conjunctiva/sclera: Conjunctivae normal. Pupils: Pupils are equal, round, and reactive to light. Neck: Comments: No midline cervical spine tenderness palpation Cardiovascular: Rate and Rhythm: Normal rate and regular rhythm. Pulses: Normal pulses. Heart sounds: Norm (more content not included)... Normal [facility] EKGon 08-11-2023 Electrocardiogram Ventricular Rate : 9 9 BPM Atrial Rate : 99 BPM P-R Interval : 146 ms QRS Duration : 84 ms Q-T Interval : 352 ms QTC Calculation(Bazett) : 451 ms Calculated P [place] : 51 degrees Calculated R [place] : -46 degrees Calculated T [place] : 42 degrees NORMAL SINUS RHYTHM LEFT ANTERIOR FASCICULAR BLOCK ABNORMAL ECG NO PREVIOUS ECGS AVAILABLE Confirmed by MD MCCLENDON CAROL ([id number]) on 08/11/2023 11:59:36 AM NAME : LYRIC PADRON PID : [id number] : 1955 Gender : Male Race : ORD : Procedure Date : Aug 11 2023 06:43:41 Edit Date : Aug 11 2023 11:59:37 Diagnosis: NORMAL SINUS RHYTHM LEFT ANTERIOR FASCICULAR BLOCK ABNORMAL ECG NO PREVIOUS ECGS AVAILABLE Confirmed by MD MCCLENDON CAROL ([id number]) on 08/11/2023 11:59:36 AM Test Reason : Location : 4 : [place] [address] Overread By : MD MCCLENDON CAROL Edited By : MD MCCLENDON CAROL Referred By : , Acquired by : JOCY MADRIGAL Normal [facility] Ethanol SerPl-mCncon 023 Ethanol [Mass/Vol] mg/dL Normal <11 [facility] Comment on above: Order Comment: Speci men Type: BLOOD SPECIMENOrdering Facility: [facility] Address: [address] [place] [address] Performed By: #### 5 643-2 ####[facility]ATORYCLIA [id number] [place] [id number] [place] HIGH SENSITIVITY TROPONIN To n 08-11-2023 Troponin T.cardiac High sensitivity method [Mass/Vol] 11 ng/L Normal <12 [facility] Comment on above: Order Comment: Speci men Type: BLOOD SPECIMENOrdering Facility: [facility] Address: [address], [place] [address] Result Comment: When assessing risk for acute coronary syndromes: In patients undergoing blood draw greater than or equal to 2 hours from symptom onset, with history of very low to moderate risk and non-ischemic ECG, an initial hs-Troponin T less than 12 ng/L AND a 1 hour delta hs-Troponin T less than 3 ng/L should be considered very low risk for 30 day MACE. Performed By: #### H STNT ####[facility]ORATORYCLIA [id number] [address] STATES OF [facility] HISTORY PHYSICALon HISTORY PHYSICAL HNO ID: [id number] Author: Lawrence Live DO Service: General Surgery Author Type: Resident Type: HANDP Filed: 08/11/2023 7:53 AM Note Text: Attestation signed by Josué Rodriguez MD at 09/01/2023 3:14 PM I personally saw and examined the patient on 08/11/23. I reviewed the resident's note. I agree with the resident's assessment and plan unless otherwise noted. Josué Rodriguez MD [facility] ARRIV[facility] DATE: 08/11/2023 ARRIVAL TIME: 630 CATEGORY: CONSULT, NO ACTIVATION INJURY DATE: 08/11/2023 INJURY TIME: UNKNOWN Subjective 68 year old male originally presented to an OSH after an unwitnessed fall overnight. At the outside hospital he underwent a CTHN, CXR, PXR. Was found to have a small subarachnoid hemorrhage, and was transferred to [facility]. Lab work and vitals have been normal thus far. In the ED he is hemodynamically stable with a GCS of 15. Complains only of head pain, denies any pain elsewhere. Does not remember the fall or how he fell, he states that he was just found on the ground. Denies any past medical problems, though his chart lists a h/o dementia, balance issues, and BPH. He denies any history of anticoagulation/antiplatele ts. No additional complaints on examination. HPI/CHIEF COMPLAINT: GLF BRIEF DESCRIPTION OF INJURIES: Scalp lac, SAH LAST FLUIDS/MEAL: unknown CODE STATUS: Not discussed ALLERGIES No Known Allergies (Not in a hospital admission) DATE OF LAST TETANUS: see below Immunization History Administered Date(s) Administered influenza (HD-IIV3) vaccine, age 65+ yr, high dose, PF (FLUZONE HIGH-DOSE) 06/17/2022 influenza (IIV3) vaccine, age 3+ yr, trivalent (AFLURIA, FLULAVAL, FLUVIRIN, FLUZONE) 06/17/2016 influenza (IIV3) vaccine, trivalent, PF (AFLURIA, FLUARIX, FLULAVAL, FLUVIRIN, FLUZONE) 07/12/2018 influenza vaccine, unspecified formulation 06/17/2015 pneumococcal (PCV13) vaccine, 13 valent (PREVNAR 13) 05/14/2020 pneumococcal (PCV20) vaccine, 20 valent (PREVNAR 20) 04/29/2022 pneumococcal (PPV23) vaccine, 23 valent (PNEUMOVAX 23) 05/14/2013 tetanus diphtheria pertussis (Tdap) vaccine, age 7+ yr (ADACEL, BOOSTRIX) 02/22/2011 09/05/2020 PAST MEDICAL HISTORY Diagnosis Date Arthritis BPH with obstruction/lower urinary tract symptoms Rosacea PAST SURGICAL HISTORY Procedure Laterality Date PAST SURGICAL HISTORY OF flexible cystoscopy PAST SURGICAL HISTORY OF 9 tonsillectomy PAST SURGICAL HISTORY OF 2018 left eye surgery TRANSURETHRAL ELEC-SURG PROSTATECTOM N/A 08/18/2021 TRANSURETHRAL ELEC-SURG PROSTATECTOM 2019 Social History Tobacco Use Smoking status: Every Day Packs/day: 0.50 Years: 20.00 Additional pack years: 0.00 Total pack years: 10.00 Types: Cigarettes Smokeless tobacco: Former Vaping Use Vaping Use: Never used Substance Use Topics Alcohol use: Not Currently Drug use: Never FAMILY HISTORY Problem Relation Age of Onset Arthritis Mother Cancer Mother melanoma Heart Mother Viral myocarditis. GI Father ulcers ROS: Is the patient having any pain? Mild headache Constitutional: Negative Eye/Ear/Nose: Negative Respiratory: Negative Cardiovascular: Negative GI/Liver/Biliary: Negative Genitourinary: Negative Psychiatric: Negative Neurologic: See HPI Musculoskeletal: Negative Integument: Negative Endocrine: Negative Heme/Lymph: Negative Objective PRIMARY SURVEY AIRWAY: Patent BREATHING: Breath sounds equal CIRCULATION: PT/DP 2+, Radials 2+, Femoral 2+, Carotid 2+ DISABILITY: Eye: 4=Spontaneous Verbal: 5=Oriented and Converses Motor: 6=Obeys Commands Total GCS: 15=4 Resp Rate: 10 to 29=4 Syst BP: > than 89=4 REVISED TRAUMA SCORE: 12 EXPOSE / ENVIRONMENT: Warm Blankets PROCEDURES: none SECONDARY SURVEY VITALS: 08/11/23 0627 BP: 133/99 Pulse: (!) 104 Resp: 17 Temp: 36.8 ?C (98.3 ?F) TempSrc: Oral SpO2: 95% Weight: 70.3 kg (155 lb) Height: 167.6 cm (5' 6 ) NEURO: Alert AND Oriented x 3, GCS 15, Cranial Nerves II-XII grossly Intact, Moves All Extremities, Strength Symmetrical, No Sensory Deficits. HEENT: Head: 3-4cm scalp laceration of right posterior temporal region, no bony step-offs, midface stable to palpation. Eyes: PERRL, conjunctiva/corneas without lesions, EOMI. Ears: Canals without blood or CSF drainage, TMs clear, external ears without lacerations. Nose: Septum midline, no crepitus with motion. Throat: Oral mucosa without lacerations, teeth in place, tongue without lacerations. NECK: No midline pain with palpation, no lacerations/wounds, trachea midline. RESPIRATORY: No abrasions or contusions, no crepitus, chest wall without ttp, equal excursion. Unlabored breathing on RA. CARDIOVASCULAR: regular rate, good per (more content not included)... Normal [facility] Lipase SerPl-cCncon 08-11-20 23 Lipase [Catalytic activity/Vol] 39 U/L Normal 16-61 [facility] Comment on above: Order Comment: Speci men Type: BLOOD SPECIMENOrdering Facility: [facility] Address: [place] [address] Performed By: #### 3 040-3, 70250-3 ####[facility]ORATORYCLIA [id number] [place] [id number] [place] [facility] PT panel Coag (PPP)on 2022 INR Coag (PPP) [Relative time] 0.9 {INR} Normal 0.9-1.3 [facility] Comment on above: Order Comment: Speci men Type: BLOOD SPECIMENOrdering Facility: [facility] Address: [address] [place] [address] Result Comment: Magy min K Antagonist (VKA) Therapeutic Range: INR 2 to 3 (Target INR of 2.5) Note: For patients treated with VKA drugs, such as warfarin, the [place] [employer]icians 2012 Guideline recommends a therapeutic INR range of 2 to 3 (target INR of 2.5). This recommendation includes high-risk patients with antiphospholipid syndrome with previous arterial or venous thromboembolism, current-generation mechanical or bioprosthetic aortic heart valve replacement. Note: Patients with mechanical aortic valve replacement and additional risk factors for thromboembolic events (atrial fibrillation, previous thromboembolism, LV dysfunction, hypercoagulable conditions) or an older generation mechanical AVR (i.e., ball in-Cage) or any mechanical MVR should have a INR therapeutic range of 2.5 to 3.5 (target INR of 3). Sarah SIMS, et al. Chest 2012, 141:7S-47S Zayda RA, et al. [facility] 2017, 70: 252-289 Performed By: #### 3 4528-0, 54172-5 ####[facility] LABORATORYCLIA [id number] [address] [place] PT Coag (PPP) [Time] 10.1 s Normal 9.7-13.0 [facility] Comment on above: Order Comment: Speci men Type: BLOOD SPECIMENOrdering Facility: [facility] Address: [address] [place] [address] Performed By: #### 3 4528-0, 84354-1 ####[facility] Group[facility] GENERAL LABORATORYCLIA [id number] [address] [place] TOX SCREEN ROUT URon 10-26-2 023 Amphetamines Confirm (U) [Mass/Vol] Negative Normal Negative [facility] Comment on above: Order Comment: Speci men Type: URINE SPECIMENOrdering Facility: [facility] Address: [address] [place] [address] Result Comment: Cuto ff threshold at 1000 ng/mL. Performed By: #### U TOX2 ####[facility] LABORATORYCLIA [id number] [address] [place] BARBITURATES, URINE Negative Normal Negative [facility] Comment on above: Order Comment: Speci men Type: URINE SPECIMENOrdering Facility: [facility] Address: [address] [place] [address] Result Comment: Cuto ff threshold at 200 ng/mL. Performed By: #### U TOX2 ####[facility] LABORATORYCLIA [id number] [place] [address] [place] BENZODIAZEPINES, UR Negative Normal Negative [facility] Comment on above: Order Comment: Speci men Type: URINE SPECIMENOrdering Facility: [facility] Address: [address] [place] [address] Result Comment: Cuto ff threshold at 200 ng/mL. Performed By: #### U TOX2 ####[facility]ORATORYCLIA [id number] [address] [place] Cannabinoids Screen Ql (U) Negative Normal Negative [facility] Comment on above: Order Comment: Speci men Type: URINE SPECIMENOrdering Facility: [facility] Address: [address] [place] [address] Result Comment: Cuto ff threshold at 50 ng/mL. Performed By: #### U TOX2 ####[facility]ORATORYCLIA [id number] [place] [address] [place] Cocaine Ql (U) Negative Normal Negative [facility] Comment on above: Order Comment: Speci men Type: URINE SPECIMENOrdering Facility: [facility] Address: [address] [place] [address] Result Comment: Cuto ff threshold at 300 ng/mL. Performed By: #### U TOX2 ####[facility]ORATORYCLIA [id number] [address] [place] Ethanol (U) [Mass/Vol] <11 Normal <11 [facility] Comment on above: Order Comment: Speci men Type: URINE SPECIMENOrdering Facility: [facility] Address: [address] [place] [address] Performed By: #### U TOX2 ####[facility]ATORYCLIA [id number] [address] OF [facility] Opiates Screen Ql (U) Negative Normal Negative [facility] Comment on above: Order Comment: Speci men Type: URINE SPECIMENOrdering Facility: [facility] Address: [address] [place] [address] Result Comment: Cuto ff threshold at 300 ng/mL. Performed By: #### U TOX2 ####[facility] LABORATORYCLIA [id number] [address] [place] oxyCODONE cutoff Screen (U) [Mass/Vol] Negative Normal Negative [facility] Comment on above: Order Comment: Speci men Type: URINE SPECIMENOrdering Facility: [facility] Address: [address] [place] [address] Result Comment: Cuto ff threshold at 100 ng/mL. Performed By: #### U TOX2 ####[facility]ATORYCLIA [id number] [address] [place] Phencyclidine Ql (U) Negative Normal Negative [facility] Comment on above: Order Comment: Speci men Type: URINE SPECIMENOrdering Facility: [facility] Address: [address] [place] [address] Result Comment: Cuto ff threshold at 25 ng/mL. Performed By: #### U TOX2 ####[facility]ORATORYCLIA [id number] [address] TYPE + SCREENon 08-11-2023 ABO O Normal [facility] Comment on above: Order Comment: Speci men Type: BLOOD SPECIMENOrdering Facility: [facility] Address: [address] [place] [address] Performed By: #### T SCR ####[facility] BLOOD BANKCLIA [id number] [address] HISTORICAL AB SCR STATUS Negative Normal [facility] Comment on above: Order Comment: Speci men Type: BLOOD SPECIMENOrdering Facility: [facility] Address: [address] [place] [address] Performed By: #### T SCR ####[facility] BLOOD BANKCLIA [id number] [address] Rh Nom (Bld) Negative Normal [facility] Comment on above: Order Comment: Speci men Type: BLOOD SPECIMENOrdering Facility: [facility] Address: [address] [place] [address] Performed By: #### T SCR ####[facility] BLOOD BANKCLIA [id number] [address] TYPE AND SCREEN EXPIRATION 08/14/2023 23:59 Normal [facility] Comment on above: Order Comment: Speci men Type: BLOOD SPECIMENOrdering Facility: [facility] Address: [address] [place] [address] Performed By: #### T SCR ####[facility] BLOOD BANKCLIA [id number] [address] [place] Urinalysis complete panel (U )on 08-11-2023 Bilirubin Ql (U) Negative Normal Negative [facility] Comment on above: Order Comment: Speci men Type: URINE SPECIMENOrdering Facility: [facility] Address: [address] [place] [address] Performed By: #### 2 4356-8 ####[facility] LABORATORYCLIA [id number] [address] [place] Clarity (Unsp spec) Clear Normal Clear [facility] Comment on above: Order Comment: Speci men Type: URINE SPECIMENOrdering Facility: [facility] Address: [address] [place] [address] Performed By: #### 2 4356-8 ####[facility] LABORATORYCLIA [id number] [address] [place] Color (U) Light Yellow Normal yellow [facility] Comment on above: Order Comment: Speci men Type: URINE SPECIMENOrdering Facility: [facility] Address: [address] [place] [address] Performed By: #### 2 4356-8 ####[facility] LABORATORYCLIA [id number] [address] [place] Glucose Test strip (U) [Mass/Vol] Negative Normal Trace, Negative [facility] Comment on above: Order Comment: Speci men Type: URINE SPECIMENOrdering Facility: [facility] Address: [address] [place] [address] Performed By: #### 2 4356-8 ####[facility] LABORATORYCLIA [id number] [place] [address] [place] Hemoglobin Ql (U) Negative Normal Negative, Trace [facility] Comment on above: Order Comment: Speci men Type: URINE SPECIMENOrdering Facility: [facility] Address: [address] [place] [address] Performed By: #### 2 4356-8 ####[facility] LABORATORYCLIA [id number] [place] [address] [place] Ketones Ql (U) Negative Normal Negative, Trace [facility] Comment on above: Order Comment: Speci men Type: URINE SPECIMENOrdering Facility: [facility] Address: [address] [place] [address] Performed By: #### 2 4356-8 ####[facility] LABORATORYCLIA [id number] [address] [place] Leukocyte esterase Test strip Ql (U) Negative Normal Negative, 25 Zeke/uL [facility] Comment on above: Order Comment: Speci men Type: URINE SPECIMENOrdering Facility: [facility] Address: [address] [place] [address] Performed By: #### 2 4356-8 ####[facility] LABORATORYCLIA [id number] [place] [address] [place] Nitrite Ql (U) Negative Normal Negative [facility] Comment on above: Order Comment: Speci men Type: URINE SPECIMENOrdering Facility: [facility] Address: [address] [place] [address] Performed By: #### 2 4356-8 ####[facility] LABORATORYCLIA [id number] [address] [place] pH (U) 5.5 [pH] Normal 5.0-8.0 [facility] Comment on above: Order Comment: Speci men Type: URINE SPECIMENOrdering Facility: [facility] Address: [address] [place] [address] Performed By: #### 2 4356-8 ####[facility] LABORATORYCLIA [id number] [address] [place] Protein (U) [Mass/Vol] Negative Normal Trace, Negative [facility] Comment on above: Order Comment: Speci men Type: URINE SPECIMENOrdering Facility: [facility] Address: [address] [place] [address] Performed By: #### 2 4356-8 ####[facility] LABORATORYCLIA [id number] [address] [place] RBC LM.HPF (Urine sed) [#/Area] 0-3 /HPF Normal 0-3 /HPF [facility] Comment on above: Order Comment: Speci men Type: URINE SPECIMENOrdering Facility: [facility] Address: [address] [place] [address] Performed By: #### 2 4356-8 ####[facility] LABORATORYCLIA [id number] [address] [place] Specific gravity (U) [Rel density] 1.021 Normal 1.005-1.030 [facility] Comment on above: Order Comment: Speci men Type: URINE SPECIMENOrdering Facility: [facility] Address: [place] [address] Performed By: #### 2 4356-8 ####[facility] LABORATORYCLIA [id number] [place] [id number] [facility] Urobilinogen Ql (U) Normal Normal Negative [facility] Comment on above: Order Comment: Speci men Type: URINE SPECIMENOrdering Facility: [facility] Address: [address] [place] [address] Performed By: #### 2 4356-8 ####[facility] LABORATORYCLIA [id number] [address] [place] WBC LM.HPF (Urine sed) [#/Area] 6-10 /HPF Abnormal 0-5 /HPF [facility] Comment on above: Order Comment: Speci men Type: URINE SPECIMENOrdering Facility: [facility] Address: [address] [place] [address] Performed By: #### 2 4356-8 ####[facility] LABORATORYCLIA [id number] [address] XR PELVIS 1V APon 08-11-2023 XR PELVIS 1V AP * * *Final Report* * * DATE OF EXAM: Aug 11 2023 6:49AM AKX [id number] - XR PELVIS 1V AP / PROCEDURE REASON: Pelvic trauma * * * * Physician Interpretation * * * * EXAMINATION: XR PELVIS 1V AP CLINICAL HISTORY: Pelvic trauma Technique: Single frontal view of the pelvis Comparison: None RESULT: Sacrum is obscured by bowel gas. Sacrum appears intact to the extent visualized. The sacroiliac joints and pubic symphysis are normally aligned. The bilateral innominate bones appear intact. The hips appear normally aligned. Bilateral proximal femurs appear intact. IMPRESSION: No displaced pelvic ring fracture. 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: PSCB Transcribe Date/Time: Aug 11 2023 6:50A Dictated by : MACARIO RUFF MD This examination was interpreted and the report reviewed and electronically signed by: MACARIO RUFF MD on Aug 11 2023 6:53AM EST [id number] Normal [facility] aPTT PPPon 08-11-2023 aPTT Coag (PPP) [Time] 25.0 s Normal 23.0-32.4 [facility] Comment on above: Order Comment: Speci men Type: BLOOD SPECIMENOrdering Facility: [facility] Address: [address] [place], [place] [id number] Performed By: #### 3 4528-0, 79128-3 ####[facility] LABORATORYCLIA [id number] [place] [address] [place] [facility] UA DIP, URINE (POC)on 2022 BILIRUBIN UA (POCT) Negative Negative [place] [facility] CLARITY UA (POCT) Clear [facility] COLOR UA (POCT) Dark yellow [facility] GLUCOSE UA (POCT) Negative Negative mg/dL [facility] Hemoglobin Ql (U) Negative [facility] KETONE UA (POCT) Negative Negative mg/dL [facility] LEUKOCYTES UA (POCT) Negative Negative [facility] NITRITE UA (POCT) Negative Negative [facility] PH UA (POCT) 7.0 4.5 - 8.0 [facility] Protein Ql (U) Negative Negative mg/dL [facility] SPECIFIC GRAVITY UA (POCT) 1.015 1.005 - 1.030 [facility] UROBILINOGEN UA (POCT) 0.2 E.U./dL Normal E.U./dL [facility] US KIDNEY/BLADDERon 04-22-20 [facility] UA DIP, URINE (POC)on 2022 BILIRUBIN UA (POCT) Negative Negative [place] CLARITY UA (POCT) Clear [facility] COLOR UA (POCT) Yellow [facility] GLUCOSE UA (POCT) Negative Negative mg/dL [facility] HEMOGLOBIN/BLOOD UA (POCT) Negative Negative [facility] KETONE UA (POCT) Negative Negative mg/dL [facility] LEUKOCYTES UA (POCT) Negative Negative [place] [facility] NITRITE UA (POCT) Negative Negative [facility] PH UA (POCT) 7.0 4.5 - 8.0 [facility] Protein Ql (U) Negative Negative mg/dL [facility] SPECIFIC GRAVITY UA (POCT) 1.015 1.005 - 1.030 [facility] UROBILINOGEN UA (POCT) 0.2 E.U./dL Normal E.U./dL [facility] MR Lumbar spine WO contrastO rdered By: [facility] Provider on 04-13-2023 Interpretation and review of laboratory results Abnormal [facility] Radiology Result ACTIONABLE Abnormal [facility] Comment on above: This report contains an incidental or actionable finding. This finding may be a new finding separate from the reason your provider ordered the imaging test or it may be an already known finding that needs additional or continued follow-up. Because of this incidental or actionable finding, you may need another test (imaging or a different type of test). Please contact your provider for the next steps. [facility] MR Lumbar spine WO contrasto n 04-13-2023 IMPRESSION: 1. Multilevel degenerative changes in the lumbar spine. Findings are most pronounced at the L4-L5 level where there is multifactorial mild spinal canal stenosis with bilateral neural foraminal narrowing, left greater than right. See detailed level by level description above. 2. T2 hyperintense lesion within the left kidney. While this may reflect a benign cyst, it is incompletely characterized. Further evaluation with a renal ultrasound or renal protocol CT scan is recommended, if not already performed at another facility. ACTIONABLE RESULT: FOLLOW-UP Acuity: Actionable Findings: Kidneys/Ureters/Bladder Routing Code: GU_1 Recommendation: Unlisted Recommendation (see report) Time Frame: At the discretion of the clinical team. COMMUNICATION: Results will be communicated with the ordering provider via [employer] staff message or phone message by [facility] within 2 business days of report finalization. ========= Algorithms for management of incidental imaging findings can be found on the [facility] Intranet Sharepoint site at: [email or web address] %20Incidental%20Findi ngs%20at%20Imaging/Forms/Al lItems.aspx Transcribe Date/Time: Apr 13 2023 9:00A Dictated by: INDIA ARRIAGA MD This examination was interpreted and the report reviewed and electronically signed by: INDIA ARRIAGA MD on Apr 13 2023 9:08AM EST Thank you for allowing us to participate in the care of your patient. Should there be any questions regarding this interpretation, please call [phone]. If you are unable to reach us at the number above, please feel free to contact [facility] eRadiology at [phone]. DIVISION OF RADIOLOGY * * *Final Report* * * DATE OF EXAM: Apr 12 2023 11:33AM ANABELLE 0303 - MRI LUMBAR SPINE WO IVCON / PROCEDURE REASON: Lumbar Spinal Stenosis * * * * Physician Interpretation * * * * RESULT: MR LUMBAR SPINE WITHOUT CONTRAST COMPARISON: Lumbar spine radiographs 06/22/2022. No prior cross-sectional imaging for comparison. HISTORY: Leg weakness. Lower back pain when standing for some time. TECHNIQUE: Multi-planar, multi-sequential MR images of the lumbar spine were obtained without the administration of contrast material. RESULT: Counting reference: Level designation is referenced to the lumbosacral junction, which is regarded as the last well formed intervertebral disk space at L5-S1. Iliac wings at L4-L5 on the coronal administrative support assistant. By convention, 5 lumbar vertebral bodies are assumed. General: There is mild apex leftward curvature of the lumbar spine with minimal retrolisthesis of L1 on L2. Vertebral body heights are preserved. Moderate to severe disc height loss L4-L5 and L5-S1, moderate disc height loss T11-T12, and mild disc height loss at L1-L2, L2-L3, and L3-L4. Discogenic endplate degenerative changes are noted throughout the lumbar spine, most pronounced at L4-L5 and L5-S1. Marrow signal is otherwise heterogeneous but nonfocal within the diagnostic volume. The distal spinal cord is normal in volume, contour, and signal. The conus medullaris terminates at L1, in proper position. T12-L1: Negative. L1-L2: Minimal pseudodisc appearance with annular disc bulge. Minimal flattening of the ventral thecal sac. Mild bilateral facet arthropathy. Mild to moderate left and right neural foraminal narrowing. No spinal canal stenosis. L2-L3: Mild broad-based disc bulge with mild flattening of the ventral thecal sac. Borderline spinal canal dimensions without stenosis. Minimal bilateral facet arthropathy. The disc extends into the bilateral neural foramina, resulting in moderate right and mild to moderate left neural foraminal narrowing. L3-L4: Mild broad-based disc bulge with mild flattening of the ventral thecal sac. Borderline spinal canal dimensions without stenosis. Mild bilateral facet arthropathy. The disc extends into the bilateral neural foramina, resulting in mild to moderate right and left neural foraminal narrowing. The disc contacts the exiting right L3 nerve root in the neural foramen and far laterally. L4-L5: Mild to moderate broad-based disc bulge with mild to moderate flattening of the ventral thecal sac. There is resultant mild spinal canal stenosis at this level with residual AP diameter of the thecal sac measuring 9 mm. Mild left and minimal right facet arthropathy. The disc extends into the bilateral neural foramina, resulting in mild to moderate right and moderate to severe left neural foraminal narrowing. L5-S1: Mild broad-based disc bulge with mild flattening of the ventral thecal sac. Minimal right facet arthropathy. The disc extends into the bilateral neural foramina, resulting in moderate bilateral neural foraminal narrowing. No spinal canal stenosis. The visualized portions of the sacroiliac joints are unremarkable, bilaterally. A T2 bright lesion is identified within the left kidney. While technically incompletely characterized, this statistically likely reflects a benign renal cyst. DIVISION OF RADIOLOGY Provider, [facility] - 04/13/2023 * * *Final Report* * * DATE OF EXAM: Apr 12 2023 11:33AM ANA[facility]EL[facility] 0303 - MRI LUMBAR SPINE WO IVCON / PROCEDURE REASON: Lumbar Spinal Stenosis * * * * Physician Interpretation * * * * RESULT: MR LUMBAR SPINE WITHOUT CONTRAST COMPARISON: Lumbar spine radiographs 06/22/2022. No prior cross-sectional imaging for comparison. HISTORY: Leg weakness. Lower back pain when standing for some time. TECHNIQUE: Multi-planar, multi-sequential MR images of the lumbar spine were obtained without the administration of contrast material. RESULT: Counting reference: Level designation is referenced to the lumbosacral junction, which is regarded as the last well formed intervertebral disk space at L5-S1. Iliac wings at L4-L5 on the coronal administrative support assistant. By convention, 5 lumbar vertebral bodies are assumed. General: There is mild apex leftward curvature of the lumbar spine with minimal retrolisthesis of L1 on L2. Vertebral body heights are preserved. Moderate to severe disc height loss L4-L5 and L5-S1, moderate disc height loss T11-T12, and mild disc height loss at L1-L2, L2-L3, and L3-L4. Discogenic endplate degenerative changes are noted throughout the lumbar spine, most pronounced at L4-L5 and L5-S1. Marrow signal is otherwise heterogeneous but nonfocal within the diagnostic volume. The distal spinal cord is normal in volume, contour, and signal. The conus medullaris terminates at L1, in proper position. T12-L1: Negative. L1-L2: Minimal pseudodisc appearance with annular disc bulge. Minimal flattening of the ventral thecal sac. Mild bilateral facet arthropathy. Mild to moderate left and right neural foraminal narrowing. No spinal canal stenosis. L2-L3: Mild broad-based disc bulge with mild flattening of the ventral thecal sac. Borderline spinal canal dimensions without stenosis. Minimal bilateral facet arthropathy. The disc extends into the bilateral neural foramina, resulting in moderate right and mild to moderate left neural foraminal narrowing. L3-L4: Mild broad-based disc bulge with mild flattening of the ventral thecal sac. Borderline spinal canal dimensions without stenosis. Mild bilateral facet arthropathy. The disc extends into the bilateral neural foramina, resulting in mild to moderate right and left neural foraminal narrowing. The disc contacts the exiting right L3 nerve root in the neural foramen and far laterally. L4-L5: Mild to moderate broad-based disc bulge with mild to moderate flattening of the ventral thecal sac. There is resultant mild spinal canal stenosis at this level with residual AP diameter of the thecal sac measuring 9 mm. Mild left and minimal right facet arthropathy. The disc extends into the bilateral neural foramina, resulting in mild to moderate right and moderate to severe left neural foraminal narrowing. L5-S1: Mild broad-based disc bulge with mild flattening of the ventral thecal sac. Minimal right facet arthropathy. The disc extends into the bilateral neural foramina, resulting in moderate bilateral neural foraminal narrowing. No spinal canal stenosis. The visualized portions of the sacroiliac joints are unremarkable, bilaterally. A T2 bright lesion is identified within the left kidney. While technically incompletely characterized, this statistically likely reflects a benign renal cyst. IMPRESSION IMPRESSION: 1. Multilevel degenerative changes in the lumbar spine. Findings are most pronounced at the L4-L5 level where there is multifactorial mild spinal canal stenosis with bilateral neural foraminal narrowing, left greater than right. See detailed level by level description above. 2. T2 hyperintense lesion within the left kidney. While this may reflect a benign cyst, it is incompletely characterized. Further evaluation with a renal ultrasound or renal protocol CT scan is recommended, if not already performed at another facility. ACTIONABLE RESULT: FOLLOW-UP Acuity: Actionable Findings: Kidneys/Ureters/Bladder Routing Code: GU_1 Recommendation: Unlisted Recommendation (see report) Time Frame: At the discretion of the clinical team. COMMUNICATION: Results will be communicated with the ordering provider via [employer] staff message or phone message by [facility] within 2 business days of report finalization. ========= Algorithms for management of incidental imaging findings can be found on the [facility] Intranet Sharepoint site at: [email or web address] %20Incidental%20Findi ngs%20at%20Imaging/Forms/Al lItems.aspx Transcribe Date/Time: Apr 13 2023 9:00A Dictated by: INDIA ARRIAGA MD This examination was interpreted and the report reviewed and electronically signed by: INDIA ARRIAGA MD on Apr 13 2023 9:08AM EST Thank (more content not included)... [facility] MR Lumbar spine WO contrasto n 04-12-2023 Radiology Study observation (narrative) [facility] CT CHEST WO IVCONon 03-11-20 23 [facility] XR Chest PA and Lateralon IMPRESSION: Suspected 11 mm left lung nodule. Recommend CT chest. 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: [employer] Transcribe Date/Time: Mar 04 2023 12:32A Dictated by : DEEPAK AGARWAL MD This examination was interpreted and the report reviewed and electronically signed by: DEEPAK AGARWAL MD on Mar 04 2023 12:32AM EST DIVISION OF RADIOLOGY * * *Final Report* * * DATE OF EXAM: Mar 01 2023 2:29PM WOX 5291 - XR CHEST 2V FRONTAL/LAT / PROCEDURE REASON: Weight loss * * * * Physician Interpretation * * * * EXAMINATION: CHEST RADIOGRAPH (2 VIEW FRONTAL & LATERAL) CLINICAL HISTORY: Weight loss MQ: XC2_6 EXAM DATE/TIME: 03/01/2023 2:29 PM COMPARISON: None. RESULT: Lines, tubes, and devices: None. Lungs and pleura: There is no focal consolidation, pleural effusion, or pneumothorax. Suspected 11 mm left lower lung or lingular nodule. Cardiomediastinal silhouette: Within normal limits. Bones and soft tissues: No acute osseous abnormality is identified. The imaged upper abdomen is within normal limits. DIVISION OF RADIOLOGY Provider, [facility] - 03/04/2023 * * *Final Report* * * DATE OF EXAM: Mar 01 2023 2:29PM WOX 5291 - XR CHEST 2V FRONTAL/LAT / PROCEDURE REASON: Weight loss * * * * Physician Interpretation * * * * EXAMINATION: CHEST RADIOGRAPH (2 VIEW FRONTAL & LATERAL) CLINICAL HISTORY: Weight loss MQ: XC2_6 EXAM DATE/TIME: 03/01/2023 2:29 PM COMPARISON: None. RESULT: Lines, tubes, and devices: None. Lungs and pleura: There is no focal consolidation, pleural effusion, or pneumothorax. Suspected 11 mm left lower lung or lingular nodule. Cardiomediastinal silhouette: Within normal limits. Bones and soft tissues: No acute osseous abnormality is identified. The imaged upper abdomen is within normal limits. IMPRESSION IMPRESSION: Suspected 11 mm left lung nodule. Recommend CT chest. 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: [employer] Transcribe Date/Time: Mar 04 2023 12:32A Dictated by : DEEPAK AGARWAL MD This examination was interpreted and the report reviewed and electronically signed by: DEEPAK AGARWAL MD on Mar 04 2023 12:32AM EST [facility] XR Chest PA and LateralOrder ed By: Ccf Provider on 03-04-2023 [facility] ESR Westergren method (Bld) [Velocity]on 03-02-2023 ESR (Bld) [Velocity] 2 mm/h 0 - 15 mm/hr Cl [facility] Urinalysis complete panel (U )on 03-02-2023 Bilirubin Ql (U) Negative Negative [facility] Clarity (Unsp spec) Clear Clear [facility] Color (U) Light Yellow Yellow [facility] Epithelial cells LM.HPF (Urine sed) [#/Area] Few [facility] Glucose Test strip (U) [Mass/Vol] Negative Trace, Negative [facility] Hemoglobin Ql (U) Negative Negative, Trace [facility] Ketones Ql (U) Negative Trace, Negative [facility] Leukocyte esterase Test strip Ql (U) Negative Negative, 25 Zeke/uL [facility] Nitrite Ql (U) Negative Negative [facility] pH (U) 6.5 [pH] 5.0 - 8.0 [facility] Protein (U) [Mass/Vol] Negative Trace, Negative [facility] RBC LM.HPF (Urine sed) [#/Area] 0-3 /HPF 0-3 /HPF [facility] Specific gravity (U) [Rel density] 1.010 1.005 - 1.030 [facility] Urobilinogen Ql (U) Negative Negative [facility] WBC LM.HPF (Urine sed) [#/Area] 0-5 /HPF 0-5 /HPF [facility] CBC W Auto Differential pane l (Bld)on 03-01-2023 Basophils (Bld) [#/Vol] 0.07 10*3/uL <0.11 k/uL [facility] Basophils/100 WBC (Bld) 0.7 % [facility] Differential cell count method Nom (Bld) Auto [facility] Eosinophils (Bld) [#/Vol] 0.22 10*3/uL <0.46 k/uL [facility] Eosinophils/100 WBC (Bld) 2.2 % [facility] Erythrocyte distribution width (RBC) [Ratio] 12.9 % 11.5 - 15.0 % [facility] Hematocrit (Bld) [Volume fraction] 49.4 % 39.0 - 51.0 % [facility] Hemoglobin (Bld) [Mass/Vol] 16.0 g/dL 13.0 - 17.0 g/dL [facility] Immature granulocytes (Bld) [#/Vol] 0.03 10*3/uL <0.10 k/uL [facility] Immature granulocytes/100 WBC (Bld) 0.3 % [facility] Lymphocytes (Bld) [#/Vol] 2.78 10*3/uL 1.00 - 4.00 k/uL [facility] Lymphocytes/100 WBC (Bld) 27.3 % [facility] MCH (RBC) [Entitic mass] 30.2 pg 26.0 - 34.0 pg [facility] MCHC (RBC) [Mass/Vol] 32.4 g/dL 30.5 - 36.0 g/dL [facility] MCV (RBC) [Entitic vol] 93.2 fL 80.0 - 100.0 fL [facility] Monocytes (Bld) [#/Vol] 0.73 10*3/uL <0.87 k/uL [facility] Monocytes/100 WBC (Bld) 7.2 % [facility] Neutrophils (Bld) [#/Vol] 6.37 10*3/uL 1.45 - 7.50 k/uL [facility] Neutrophils/100 WBC (Bld) 62.3 % [facility] Nucleated RBC (Bld) [#/Vol] <0.01 k/uL [facility] Nucleated RBC/100 WBC (Bld) [Ratio] 0.0 /100 WBC [facility] Platelet mean volume (Bld) [Entitic vol] 9.7 fL 9.0 - 12.7 fL [facility] Platelets (Bld) [#/Vol] 292 10*3/uL 150 - 400 k/uL [facility] RBC (Bld) [#/Vol] 5.30 10*6/uL 4.20 - 6.0 0 m/uL [facility] WBC (Bld) [#/Vol] 10.20 10*3/uL 3.70 - 11 .00 k/uL [facility] XR Chest PA and Lateralon Radiology Study observation (narrative) [facility] XR DIGIT GENERAL 3V FRONTAL/ LAT/OBL RIGHTon 11-02-2022 [facility] XR Finger - right AP and Lat eral and obliqueon 11-02-2022 IMPRESSION: Acute fracture of the volar base of the third middle phalanx with soft tissue swelling. 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: [employer] Transcribe Date/Time: Nov 02 2022 11:00A Dictated by : CLINT CORREA MD This examination was interpreted and the report reviewed and electronically signed by: CLINT CORREA MD on Nov 02 2022 11:02AM [facility] DIVISION OF RADIOLOGY * * *Final Report* * * DATE OF EXAM: Nov 02 2022 10:39AM WOX 5319 - XR DIGIT 3V FRONTAL/LAT/OBL RT / PROCEDURE REASON: multiple diagnoses * * * * Physician Interpretation * * * * TITLE: XR DIGIT 3V FRONTAL/LAT/OBL RT CLINICAL INDICATION: Finger pain TECHNIQUE: 3 view radiographic study of the right third finger COMPARISON: None FINDINGS: Soft tissue swelling surrounding the proximal third finger. No soft tissue gas or radiopaque foreign body. There is an acute, essentially nondisplaced fracture of the volar base of the third middle phalanx. No additional osseous abnormality identified. DIVISION OF RADIOLOGY Provider, [facility] - 11/02/2022 * * *Final Report* * * DATE OF EXAM: Nov 02 2022 10:39AM WOX 5319 - XR DIGIT 3V FRONTAL/LAT/OBL RT / PROCEDURE REASON: multiple diagnoses * * * * Physician Interpretation * * * * TITLE: XR DIGIT 3V FRONTAL/LAT/OBL RT CLINICAL INDICATION: Finger pain TECHNIQUE: 3 view radiographic study of the right third finger COMPARISON: None FINDINGS: Soft tissue swelling surrounding the proximal third finger. No soft tissue gas or radiopaque foreign body. There is an acute, essentially nondisplaced fracture of the volar base of the third middle phalanx. No additional osseous abnormality identified. IMPRESSION IMPRESSION: Acute fracture of the volar base of the third middle phalanx with soft tissue swelling. 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: [facility] Transcribe Date/Time: Nov 02 2022 11:00A Dictated by : CLINT CORREA MD This examination was interpreted and the report reviewed and electronically signed by: CLINT CORREA MD on Nov 02 2022 11:02AM EST [facility] Radiology Study observation (narrative) [facility] XR Finger - right AP and Lat eral and obliqueOrdered By: Ccf Provider on 11-02-2022 [facility] UA DIP, URINE (POC)on 2021 BILIRUBIN UA (POCT) Negative Negative [facility] CLARITY UA (POCT) Slightly Cloudy Cl [facility] COLOR UA (POCT) Dark yellow [facility] GLUCOSE UA (POCT) Negative Negative mg/dL [facility] HEMOGLOBIN/BLOOD UA (POCT) Negative Negative [facility] KETONE UA (POCT) Negative Negative mg/dL [facility] LEUKOCYTES UA (POCT) Negative Negative [facility] NITRITE UA (POCT) Negative Negative [facility] PH UA (POCT) 7.0 4.5 - 8.0 [facility] Protein Ql (U) Negative Negative mg/dL [facility] SPECIFIC GRAVITY UA (POCT) 1.020 1.005 - 1.030 [facility] UROBILINOGEN UA (POCT) 0.2 E.U./dL Normal E.U./dL [facility] XR Lumbar spine 3 Viewson IMPRESSION: Lumbar s pine degenerative changes with multilevel disc space narrowing. 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: [employer] Transcribe Date/Time: Jun 22 2022 1:23P Dictated by : OLEKSANDR RICE MD This examination was interpreted and the report reviewed and electronically signed by: OLEKSANDR RICE MD on Jun 22 2022 1:31PM [facility] DIVISION OF RADIOLOGY * * *Final Report* * * DATE OF EXAM: Jun 22 2022 1:16PM WOX 5228 - XR LUMBAR 3V AP/LAT/L5-S1 / PROCEDURE REASON: multiple diagnoses * * * * Physician Interpretation * * * * EXAM TITLE: XR LUMBAR 3V AP/LAT/L5-S1 EXAM DATE/TIME: 06/22/2022 1:16 PM COMPARISON: None. CLINICAL INDICATION/HISTORY: Balance issues. TECHNIQUE: AP, lateral and cone down lateral views of the lumbar spine are presented. FINDINGS: There are five [id number] lumbar vertebrae. No fracture or subluxations are noted. Mild left-sided curvature is noted. There is generalized disc space narrowing, with or without endplate sclerosis. There is moderate osteophyte formation. Kissing spine seen on lateral view. Others: There are vascular calcifications. DIVISION OF RADIOLOGY Provider, [facility] - 06/22/2022 * * *Final Report* * * DATE OF EXAM: Jun 22 2022 1:16PM WOX 5228 - XR LUMBAR 3V AP/LAT/L5-S1 / PROCEDURE REASON: multiple diagnoses * * * * Physician Interpretation * * * * EXAM TITLE: XR LUMBAR 3V AP/LAT/L5-S1 EXAM DATE/TIME: 06/22/2022 1:16 PM COMPARISON: None. CLINICAL INDICATION/HISTORY: Balance issues. TECHNIQUE: AP, lateral and cone down lateral views of the lumbar spine are presented. FINDINGS: There are five [id number] lumbar vertebrae. No fracture or subluxations are noted. Mild left-sided curvature is noted. There is generalized disc space narrowing, with or without endplate sclerosis. There is moderate osteophyte formation. Kissing spine seen on lateral view. Others: There are vascular calcifications. IMPRESSION IMPRESSION: Lumbar spine degenerative changes with multilevel disc space narrowing. 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: [facility] Transcribe Date/Time: Jun 22 2022 1:23P Dictated by : OLEKSANDR RICE MD This examination was interpreted and the report reviewed and electronically signed by: OLEKSANDR RICE MD on Jun 22 2022 1:31PM EST [facility] Radiology Study observation (narrative) [facility] XR Lumbar spine 3 ViewsOrder ed By: Ccf Provider on 06-22-2022 [facility] XR Wrist - left 4 Viewson IMPRESSION: No radiographic evidence of acute osseous abnormality 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: [facility] Transcribe Date/Time: Feb 08 2022 1:14P Dictated by : CLINT CORREA MD This examination was interpreted and the report reviewed and electronically signed by: CLINT CORREA MD on Feb 08 2022 1:17PM EST [facility]_DO_NOT_ USE_DIVISIO N OF RADIOLOGY * * *Final Report* * * DATE OF EXAM: Feb 08 2022 1:09PM WOX 5272 - XR WRIST 4V PA/LAT/OBL/SCAPH LT / PROCEDURE REASON: Left wrist pain * * * * Physician Interpretation * * * * CLINICAL INDICATION: Wrist pain TECHNIQUE: 4 view radiographic study of the left wrist COMPARISON: None FINDINGS: No acute fracture or dislocation identified. Joint spaces preserved. [facility]ZZ_DO_NOT_ USE_DIVISIO N OF RADIOLOGY Provider, [facility] - 02/08/2022 * * *Final Report* * * DATE OF EXAM: Feb 08 2022 1:09PM WOX 5272 - XR WRIST 4V PA/LAT/OBL/SCAPH LT / PROCEDURE REASON: Left wrist pain * * * * Physician Interpretation * * * * CLINICAL INDICATION: Wrist pain TECHNIQUE: 4 view radiographic study of the left wrist COMPARISON: None FINDINGS: No acute fracture or dislocation identified. Joint spaces preserved. IMPRESSION IMPRESSION: No radiographic evidence of acute osseous abnormality 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: [employer] Transcribe Date/Time: Feb 08 2022 1:14P Dictated by : CLINT CORREA MD This examination was interpreted and the report reviewed and electronically signed by: CLINT CROREA MD on Feb 08 2022 1:17PM EST [facility] Radiology Study observation (narrative) [facility] XR Wrist - left 4 ViewsOrder ed By: Ccf Provider on 02-08-2022 [facility] XR Hand - right PA and Later al and Obliqueon 05-04-2021 IMPRESSION: No radiographic evidence of acute osseous injury 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: [employer] Transcribe Date/Time: May 04 2021 2:31P Dictated by : CLINT CORREA MD This examination was interpreted and the report reviewed and electronically signed by: CLINT CORREA MD on May 04 2021 2:32PM EST DIVISION OF RADIOLOGY * * *Final Report* * * DATE OF EXAM: May 04 2021 2:29PM WOX 5346 - XR HAND 3V PA/LAT/OBL RT / PROCEDURE REASON: Hand injuries, right, initial encounter * * * * Physician Interpretation * * * * CLINICAL INDICATION: Status post fall TECHNIQUE: 3 view radiographic study of the right hand COMPARISON: None FINDINGS: No acute fracture or dislocation identified. Mild radiocarpal joint space narrowing. Joint space narrowing between the lunate and capitate with subchondral cystic change and subchondral sclerosis No radiopaque foreign body. DIVISION OF RADIOLOGY Provider, [facility] - 05/04/2021 * * *Final Report* * * DATE OF EXAM: May 04 2021 2:29PM WOX 5346 - XR HAND 3V PA/LAT/OBL RT / PROCEDURE REASON: Hand injuries, right, initial encounter * * * * Physician Interpretation * * * * CLINICAL INDICATION: Status post fall TECHNIQUE: 3 view radiographic study of the right hand COMPARISON: None FINDINGS: No acute fracture or dislocation identified. Mild radiocarpal joint space narrowing. Joint space narrowing between the lunate and capitate with subchondral cystic change and subchondral sclerosis No radiopaque foreign body. IMPRESSION IMPRESSION: No radiographic evidence of acute osseous injury 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: [employer] Transcribe Date/Time: May 04 2021 2:31P Dictated by : CLINT CORREA MD This examination was interpreted and the report reviewed and electronically signed by: CLINT CORREA MD on May 04 2021 2:32PM EST [facility] Radiology Study observation (narrative) [facility] XR Hand - right PA and Later al and ObliqueOrdered By: Ccf Provider on 05-04-2021 [facility] Vital Signs Date Time Vital Sign Value Performing Clinician Praveena francois 08-07-2024 11:22-0400 Body mass index (BMI) [Ratio] 24.93 kg/m2 Jayda Devliner PA-C Work Phone: [facility] 08-07-2024 11:22-0400 Body weight 67.95 kg Jayda Devliner PA-C Work Phone: [facility] 08-07-2024 11:22-0400 Diastolic blood pressure 81 mm[Hg] Jayda Devliner PA-C Work Phone: [facility] 08-07-2024 11:22-0400 Heart rate 83 /min Jayda Queener PA-C Work Phone: [facility] 08-07-2024 11:22-0400 SaO2% (BldA) [Mass fraction] 98 % Jayda Queener PA-C Work Phone: [facility] 08-07-2024 11:22-0400 Systolic blood pressure 123 mm[Hg] Jayda Queener PA-C Work Phone: [facility] 07-31-2024 13:03-0400 Body mass index (BMI) [Ratio] 25.29 kg/m2 Josefa Jacobs PA-C Work Phone: [facility] 07-31-2024 13:03-0400 Body temperature 97.59 [degF] Josefa Jacobs PA-C Work Phone: [facility] 07-31-2024 13:03-0400 Body weight 68.95 kg Josefa Jacobs PA-C Work Phone: [facility] 07-31-2024 13:03-0400 Diastolic blood pressure 78 mm[Hg] Josefa Jacobs PA-C Work Phone: [facility] 07-31-2024 13:03-0400 Heart rate 92 /min Josefa Jacobs PA-C Work Phone: [facility] 07-31-2024 13:03-0400 SaO2% (BldA) [Mass fraction] 99 % Josefa Jacobs PA-C Work Phone: [facility] 07-31-2024 13:03-0400 Systolic blood pressure 110 mm[Hg] Josefa Jacobs PA-C Work Phone: [facility] 07-02-2024 11:09-0400 Body height 165.1 cm Geoffrey Adams MD Work Phone: [facility] 07-02-2024 11:09-0400 Body mass index (BMI) [Ratio] 25.06 kg/m2 Geoffrey Adams MD Work Phone: [facility] 07-02-2024 11:09-0400 Body weight 68.3 kg Geoffrey Adams MD Work Phone: [facility] 07-02-2024 11:09-0400 Diastolic blood pressure 74 mm[Hg] Geoffrey Adams MD Work Phone: [facility] 07-02-2024 11:09-0400 Heart rate 84 /min Geoffrey Adams MD Work Phone: [facility] 07-02-2024 11:09-0400 Systolic blood pressure 114 mm[Hg] Geoffrey Adams MD Work Phone: [facility] 06-20-2024 12:00-0400 Diastolic blood pressure 74 mm[Hg] Connie Geil OTR/L Work Phone: [facility] 06-20-2024 12:00-0400 Heart rate 89 /min Connie Geil OTR/L Work Phone: [facility] 06-20-2024 12:00-0400 Systolic blood pressure 112 mm[Hg] Connie Geil OTR/L Work Phone: [facility] 04-24-2024 11:30-0400 Body mass index (BMI) [Ratio] 24.63 kg/m2 Jayda Devliner PA-C Work Phone: [facility] 04-24-2024 11:30-0400 Body weight 67.13 kg Jayda Devliner PA-C Work Phone: [facility] 04-24-2024 11:30-0400 Diastolic blood pressure 81 mm[Hg] Jayda Devliner PA-C Work Phone: [facility] 04-24-2024 11:30-0400 Heart rate 89 /min Jayda Devliner PA-C Work Phone: [facility] 04-24-2024 11:30-0400 Respiratory rate 18 /min Jayda Devliner PA-C Work Phone: [facility] 04-24-2024 11:30-0400 SaO2% (BldA) [Mass fraction] 99 % Jayda Devliner PA-C Work Phone: [facility] 04-24-2024 11:30-0400 Systolic blood pressure 122 mm[Hg] Jayda Devliner PA-C Work Phone: [facility] 12-30-2023 14:53-0400 Body height 165.1 cm Geoffrey Adams MD Work Phone: [facility] 12-30-2023 14:53-0400 Body weight 68.95 kg Geoffrey Adams MD Work Phone: [facility] 12-30-2023 14:53-0400 Diastolic blood pressure 76 mm[Hg] Geoffrey Adams MD Work Phone: [facility] 12-30-2023 14:53-0400 Heart rate 101 /min Geoffrey Adams MD Work Phone: [facility] 12-30-2023 14:53-0400 SaO2% (BldA) [Mass fraction] 99 % Geoffrey Adams MD Work Phone: [facility] 12-30-2023 14:53-0400 Systolic blood pressure 104 mm[Hg] Geoffrey Adams MD Work Phone: [facility] 12-13-2023 10:32-0500 Body weight 68.31 kg Jayda Devliner PA-C Work Phone: [facility] 12-13-2023 10:32-0500 Diastolic blood pressure 74 mm[Hg] Jayda Queener PA-C Work Phone: [facility] 12-13-2023 10:32-0500 Heart rate 95 /min Jayda Devliner PA-C Work Phone: [facility] 12-13-2023 10:32-0500 Respiratory rate 16 /min Jayda Devliner PA-C Work Phone: [facility] 12-13-2023 10:32-0500 SaO2% (BldA) [Mass fraction] 100 % Jayda Devliner PA-C Work Phone: [facility] 12-13-2023 10:32-0500 Systolic blood pressure 122 mm[Hg] Jayda Devliner PA-C Work Phone: [facility] 11-21-2023 10:52-0500 Body height 165.1 cm Kwadwo Srinivasan MD, PhD Work Phone: [facility] 11-21-2023 10:52-0500 Body weight 69.2 kg Kwadwo Srinivasan MD, PhD Work Phone: [facility] 11-21-2023 10:52-0500 Diastolic blood pressure 79 mm[Hg] Kwadwo Srinivasan MD, PhD Work Phone: [facility] 11-21-2023 10:52-0500 Heart rate 83 /min Kwadwo Srinivasan MD, PhD Work Phone: [facility] 11-21-2023 10:52-0500 SaO2% (BldA) [Mass fraction] 96 % Kwadwo Srinivasan MD, PhD Work Phone: [facility] 11-21-2023 10:52-0500 Systolic blood pressure 116 mm[Hg] Kwadwo Srinivasan MD, PhD Work Phone: [facility] 09-22-2023 13:05-0500 Body height 165.1 cm Melissa Pedro MD Work Phone: [facility] 09-22-2023 13:05-0500 Body weight 69.85 kg Melissa Pedro MD Work Phone: [facility] 09-22-2023 13:05-0500 Diastolic blood pressure 81 mm[Hg] Melissa Pedro MD Work Phone: [facility] 09-22-2023 13:05-0500 Heart rate 72 /min Melissa Pedro MD Work Phone: [facility] 09-22-2023 13:05-0500 Respiratory rate 16 /min Melissa Pedro MD Work Phone: [facility] 09-22-2023 13:05-0500 SaO2% (BldA) [Mass fraction] 98 % Melissa Pedro MD Work Phone: [facility] 09-22-2023 13:05-0500 Systolic blood pressure 120 mm[Hg] Melissa Pedro MD Work Phone: [facility] 08-24-2023 11:07-0500 Body weight 70.08 kg Jayda Devliner PA-C Work Phone: [facility] 08-24-2023 11:07-0500 Diastolic blood pressure 81 mm[Hg] Jayda Devliner PA-C Work Phone: [facility] 08-24-2023 11:07-0500 Heart rate 87 /min Jayda Queener PA-C Work Phone: [facility] 08-24-2023 11:07-0500 Respiratory rate 16 /min Jayda Queener PA-C Work Phone: [facility] 08-24-2023 11:07-0500 SaO2% (BldA) [Mass fraction] 99 % Jayda Queener PA-C Work Phone: [facility] 08-24-2023 11:07-0500 Systolic blood pressure 124 mm[Hg] Jayda Devliner PA-C Work Phone: [facility] 07-26-2023 13:10-0400 Body height 165.1 cm Josefa Jacobs PA-C Work Phone: [facility] 07-26-2023 13:10-0400 Body temperature 97.81 [degF] Josefa Jacobs PA-C Work Phone: [facility] 07-26-2023 13:10-0400 Body weight 69.4 kg Josefa Jacobs PA-C Work Phone: [facility] 07-26-2023 13:10-0400 Diastolic blood pressure 82 mm[Hg] Josefa Jacobs PA-C Work Phone: [facility] 07-26-2023 13:10-0400 Heart rate 106 /min Josefa Jacobs PA-C Work Phone: [facility] 07-26-2023 13:10-0400 Respiratory rate 12 /min Josefa Jacobs PA-C Work Phone: [facility] 07-26-2023 13:10-0400 SaO2% (BldA) [Mass fraction] 99 % Josefa Jacobs PA-C Work Phone: [facility] 07-26-2023 13:10-0400 Systolic blood pressure 108 mm[Hg] Josefa Jacobs PA-C Work Phone: [facility] 07-01-2023 13:34-0400 Body height 162.6 cm Geoffrey Adams MD Work Phone: [facility] 07-01-2023 13:34-0400 Body weight 69.85 kg Geoffrey Adams MD Work Phone: [facility] 07-01-2023 13:34-0400 Diastolic blood pressure 62 mm[Hg] Geoffrey Adams MD Work Phone: [facility] 07-01-2023 13:34-0400 Heart rate 102 /min Geoffrey Adams MD Work Phone: [facility] 07-01-2023 13:34-0400 SaO2% (BldA) [Mass fraction] 98 % Geoffrey Adams MD Work Phone: [facility] 07-01-2023 13:34-0400 Systolic blood pressure 104 mm[Hg] Geoffrey Adams MD Work Phone: [facility] 05-25-2023 14:21-0400 Body height 162.6 cm Chuck Jones PA-C Work Phone: [facility] 05-25-2023 14:21-0400 Body weight 67.77 kg Chuck Jones PA-C Work Phone: [facility] 05-25-2023 14:21-0400 Diastolic blood pressure 61 mm[Hg] Chuck Jones PA-C Work Phone: [facility] 05-25-2023 14:21-0400 Heart rate 95 /min Chuck Jones PA-C Work Phone: [facility] 05-25-2023 14:21-0400 SaO2% (BldA) [Mass fraction] 99 % Chuck Jones PA-C Work Phone: [facility] 05-25-2023 14:21-0400 Systolic blood pressure 112 mm[Hg] Chuck Jones PA-C Work Phone: [facility] 04-20-2023 13:13-0400 Body weight 67.04 kg Fidelina Rosas EXECUTOR OF ESTATE.BILL RECAPITULATION CLERK Work Phone: [facility] 04-20-2023 13:13-0400 Diastolic blood pressure 72 mm[Hg] Fidelina Haagen EXECUTOR OF ESTATE.BILL RECAPITULATION CLERK Work Phone: [facility] 04-20-2023 13:13-0400 Heart rate 91 /min Fidelina Haagen EXECUTOR OF ESTATE.BILL RECAPITULATION CLERK Work Phone: [facility] 04-20-2023 13:13-0400 Respiratory rate 16 /min Fidelina Haagen EXECUTOR OF ESTATE.BILL RECAPITULATION CLERK Work Phone: [facility] 07-05-2023 13:13-0400 SaO2% (BldA) [Mass fraction] 93 % Fidelina Haagen EXECUTOR OF ESTATE.BILL RECAPITULATION CLERK Work Phone: [facility] 04-20-2023 13:13-0400 Systolic blood pressure 110 mm[Hg] Fidelina Haagen EXECUTOR OF ESTATE.BILL RECAPITULATION CLERK Work Phone: [facility] 03-01-2023 12:57-0400 Body weight 67.13 kg Fidelina Haagen EXECUTOR OF ESTATE.BILL RECAPITULATION CLERK Work Phone: [facility] 03-01-2023 12:57-0400 Diastolic blood pressure 64 mm[Hg] Fidelina Haagen EXECUTOR OF ESTATE.BILL RECAPITULATION CLERK Work Phone: [facility] 03-01-2023 12:57-0400 Heart rate 82 /min Fidelina Haagen EXECUTOR OF ESTATE.BILL RECAPITULATION CLERK Work Phone: [facility] 03-01-2023 12:57-0400 Respiratory rate 16 /min Fidelina Haagen EXECUTOR OF ESTATE.BILL RECAPITULATION CLERK Work Phone: [facility] 03-01-2023 12:57-0400 SaO2% (BldA) [Mass fraction] 97 % Fidelina Haagen EXECUTOR OF ESTATE.BILL RECAPITULATION CLERK Work Phone: [facility] 03-01-2023 12:57-0400 Systolic blood pressure 110 mm[Hg] Fidelina Haagen EXECUTOR OF ESTATE.BILL RECAPITULATION CLERK Work Phone: [facility] 11-02-2022 10:21-0500 Body temperature 97.2 [degF] Becca Ariela EXECUTOR OF ESTATE.BILL RECAPITULATION CLERK Work Phone: [facility] 11-02-2022 10:21-0500 Body weight 73.03 kg Becca Ariela EXECUTOR OF ESTATE.BILL RECAPITULATION CLERK Work Phone: [facility] 11-02-2022 10:21-0500 Diastolic blood pressure 82 mm[Hg] Becca Ariela EXECUTOR OF ESTATE.BILL RECAPITULATION CLERK Work Phone: [facility] 11-02-2022 10:21-0500 Heart rate 90 /min Becca Ariela EXECUTOR OF ESTATE.BILL RECAPITULATION CLERK Work Phone: [facility] 11-02-2022 10:21-0500 Respiratory rate 16 /min Becca Alcalak EXECUTOR OF ESTATE.BILL RECAPITULATION CLERK Work Phone: [facility] 11-02-2022 10:21-0500 SaO2% (BldA) [Mass fraction] 99 % Becca Alcalak EXECUTOR OF ESTATE.BILL RECAPITULATION CLERK Work Phone: [facility] 11-02-2022 10:21-0500 Systolic blood pressure 132 mm[Hg] Becca Titus EXECUTOR OF ESTATE.BILL RECAPITULATION CLERK Work Phone: [facility] 07-20-2022 12:58-0400 Body height 165.1 cm Josefa Jacobs PA-C Work Phone: [facility] 07-20-2022 12:58-0400 Body temperature 97.81 [degF] Josefa Jacobs PA-C Work Phone: [facility] 07-20-2022 12:58-0400 Body weight 68.49 kg Josefa Jacobs PA-C Work Phone: [facility] 07-20-2022 12:58-0400 Diastolic blood pressure 78 mm[Hg] Josefa Jacobs PA-C Work Phone: [facility] 07-20-2022 12:58-0400 Heart rate 110 /min Josefa Jacobs PA-C Work Phone: [facility] 07-20-2022 12:58-0400 Respiratory rate 14 /min Josefa Jacobs PA-C Work Phone: [facility] 07-20-2022 12:58-0400 SaO2% (BldA) [Mass fraction] 96 % Josefa Jacobs PA-C Work Phone: [facility] 07-20-2022 12:58-0400 Systolic blood pressure 110 mm[Hg] Josefa Jacobs PA-C Work Phone: [facility] 06-24-2022 15:18-0400 Body weight 68.04 kg Geoffrey Adams MD Work Phone: [facility] 06-24-2022 15:18-0400 Diastolic blood pressure 62 mm[Hg] Geoffrey Adams MD Work Phone: [facility] 06-24-2022 15:18-0400 Heart rate 88 /min Geoffrey Adams MD Work Phone: [facility] 06-24-2022 15:18-0400 Systolic blood pressure 102 mm[Hg] Geoffrey Adams MD Work Phone: [facility] 06-17-2022 14:15-0400 Body temperature 97.2 [degF] Ashley Dahlhausen EXECUTOR OF ESTATE.BILL RECAPITULATION CLERK Work Phone: [facility] 06-17-2022 14:15-0400 Body weight 69.31 kg Ashley Dahlhausen EXECUTOR OF ESTATE.BILL RECAPITULATION CLERK Work Phone: [facility] 06-17-2022 14:15-0400 Diastolic blood pressure 62 mm[Hg] Ashley Dahlhausen EXECUTOR OF ESTATE.BILL RECAPITULATION CLERK Work Phone: [facility] 06-17-2022 14:15-0400 Heart rate 91 /min Ashley Dahlhausen EXECUTOR OF ESTATE.BILL RECAPITULATION CLERK Work Phone: [facility] 06-17-2022 14:15-0400 Respiratory rate 16 /min Ashley Dahlhausen EXECUTOR OF ESTATE.BILL RECAPITULATION CLERK Work Phone: [facility] 06-17-2022 14:15-0400 SaO2% (BldA) [Mass fraction] 98 % Ashley Dahlhausen EXECUTOR OF ESTATE.BILL RECAPITULATION CLERK Work Phone: [facility] 06-17-2022 14:15-0400 Systolic blood pressure 100 mm[Hg] Ashley Dahlhausen EXECUTOR OF ESTATE.BILL RECAPITULATION CLERK Work Phone: [facility] 02-07-2022 12:27-0400 Body temperature 97.39 [degF] Isabella Dasilva EXECUTOR OF ESTATE.BILL RECAPITULATION CLERK Work Phone: [facility] 02-07-2022 12:27-0400 Body weight 72.58 kg Isabella Dasilva EXECUTOR OF ESTATE.BILL RECAPITULATION CLERK Work Phone: [facility] 02-07-2022 12:27-0400 Diastolic blood pressure 78 mm[Hg] Isabella Dasilva APRN.BILL RECAPITULATION CLERK Work Phone: [facility] 02-07-2022 12:27-0400 Heart rate 102 /min Isabella Dasilva APRN.BILL RECAPITULATION CLERK Work Phone: [facility] 02-07-2022 12:27-0400 Respiratory rate 16 /min Isabella Dasilva APRN.BILL RECAPITULATION CLERK Work Phone: [facility] 02-07-2022 12:27-0400 SaO2% (BldA) [Mass fraction] 97 % Isabella Dasilva APRN.BILL RECAPITULATION CLERK Work Phone: [facility] 02-07-2022 12:27-0400 Systolic blood pressure 128 mm[Hg] Isabella Dasilva APRN.BILL RECAPITULATION CLERK Work Phone: [facility] Encounters Encounter Date Encounter Type Care Provider Facility Start: 08-07-2024 End: 08-07-2024 Patient encounter procedure Jayda Ace PA-C Work Phone: Neurology Comment on above: Subdural hematoma (H CC) (Primary Dx); Dementia without behavioral disturbance (HCC); Balance problem; Frequent falls; Cervical stenosis of spinal canal; History of traumatic brain injury; Memory loss Start: 08-07-2024 End: 08-07-2024 ambulatory JAYDA ACE Facility:[facility] Start: 07-31-2024 End: 07-31-2024 ambulatory JOSEFA JACOBS Facility:[facility] Start: 07-31-2024 End: 07-31-2024 Patient encounter procedure Josefa Jacobs PA-C Work Phone: Urology Comment on above: BPH with obstruction /lower urinary tract symptoms (Primary Dx) Start: 07-27-2024 End: 07-27-2024 ambulatory JOSEFA JAOCBS Facility:[facility] Start: 07-18-2024 End: 07-18-2024 ambulatory Josefa Jacobs PA-C Work Phone: Urology Comment on above: PSA Start: 07-18-2024 End: 07-18-2024 E-mail encounter from caregiver Josefa Jacobs PA-C Work Phone: Urology Start: 07-13-2024 End: 07-13-2024 Telephone encounter Kwadwo Srinivasan MD, PhD Work Phone: [facility] Comment on above: 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 Start: 07-09-2024 End: 07-10-2024 ambulatory Kwadwo Srinivasan MD, PhD Work Phone: [facility] Start: 07-09-2024 End: 07-10-2024 Patient encounter procedure Kwadwo Srinivasan MD, PhD Work Phone: [facility] Comment on above: Lyric Padron Start: 07-04-2024 End: 07-04-2024 ambulatory [facility] Facility:[facility] Start: 07-02-2024 End: 07-02-2024 ambulatory [facility] Facility:[facility] Start: 07-02-2024 End: 07-02-2024 Patient encounter procedure Geoffrey Adams MD Work Phone: [facility] [place] Comment on above: Personal history of traumatic brain injury (Primary Dx); Ataxia, unspecified; Cervical myelopathy (HCC); History of subarachnoid hemorrhage; History of subdural hematoma; Mild cognitive impairment; Prediabetes; Screening for depression; Encounter for screening examination for other mental health and behavioral disorders Start: 06-25-2024 End: 06-25-2024 ambulatory Jayda Ace PA-C Work Phone: Neurology Comment on above: Lyric's driving test Start: 06-20-2024 End: 06-20-2024 E-mail encounter from caregiver Connie Pepe OTR/L Work Phone: [facility] Start: 06-20-2024 End: 06-20-2024 ambulatory Connie Geil OTR/L Work Phone: [facility] Comment on above: Brain health resourc es Dementia without beh avioral disturbance (HCC) (Primary Dx) Start: 05-09-2024 Refill Fidelina Rosas APRN.CNP Work Phone: [facility] [place] Comment on above: Refill Request Start: 04-24-2024 End: 04-24-2024 ambulatory [facility] Facility:[facility] Start: 04-24-2024 End: 04-24-2024 Patient encounter procedure Jayda Aec PA-C Work Phone: Neurology Comment on above: Subdural hematoma (H CC) (Primary Dx); Dementia without behavioral disturbance (HCC); Frequent falls; Balance problem; Cervical stenosis of spinal canal Start: 04-23-2024 ambulatory Jayda Devlinestefanía espinoza PA-C Work Phone: Neurology Comment on above: Lyric's driving Start: 12-30-2023 End: 12-30-2023 [facility] Facility:[facility] Start: 12-30-2023 End: 12-30-2023 Patient encounter procedure Geoffrey Adams MD Work Phone: [facility] Comment on above: History of subdural hematoma (Primary Dx); History of subarachnoid hemorrhage; Personal history of traumatic brain injury; Subarachnoid hemorrhage (HCC); Ataxia, unspecified; Pure hypercholesterolemia; Mild cognitive impairment; Benign non-nodular prostatic hyperplasia with lower urinary tract symptoms; Cervical myelopathy (HCC); Prediabetes; SAH (subarachnoid hemorrhage) (HCC); Screening for colon cancer Start: 12-13-2023 End: 12-13-2023 ambulatory Jayda Ace PA-C Work Phone: Neurology Comment on above: driving test swallowing issue Start: 12-13-2023 End: 12-13-2023 Patient encounter procedure Jayda Ace PA-C Work Phone: Neurology Comment on above: Frequent falls (Prim hola Dx); Subdural hematoma (HCC); Dementia without behavioral disturbance (HCC); Balance problem; Cervical stenosis of spinal canal; Memory loss Start: 12-12-2023 ambulatory Jayda espinoza PA-C Work Phone: Neurology Comment on above: [place] answers to pr e-check in questions Start: 11-21-2023 End: 11-21-2023 Patient encounter procedure Kwadwo Srinivasan MD, PhD Work Phone: [facility] Comment on above: Subarachnoid hemorrh age (HCC); Subdural hematoma (HCC) Start: 11-21-2023 End: 11-21-2023 ambulatory GEOFFREY ADAMS Facility:[facility] Start: 11-21-2023 End: 11-21-2023 Subsequent hospital visit by physician [facility] [employer] Comment on above: Subarachnoid hemorrh age (HCC) [I60.9] Start: 10-13-2023 End: 10-13-2023 ambulatory KWADWO SRINIVASAN [facility] Start: 10-04-2023 End: 10-04-2023 ambulatory MELISSA PEDRO [facility] Start: 09-22-2023 Telephone encounter Kwadwo espinal MD, PhD Work Phone: [facility] Comment on above: Patient Question Start: 09-22-2023 End: 09-22-2023 Patient encounter procedure Melissa Pedro MD Work Phone: NEUROLOGY Comment on above: Chronic subdural hem atoma (HCC) (Primary Dx); Subdural hematoma (HCC) Start: 09-22-2023 End: 09-22-2023 ambulatory MELISSA PEDRO [facility] Start: 09-20-2023 Telephone encounter Kwadwo espinal MD, PhD Work Phone: [facility] Comment on above: Patient Question Start: 09-19-2023 End: 09-19-2023 Emergency department patient visit SYEDYANET BUSTAMANTEDA Facility[facility] Start: 09-19-2023 Telephone encounter Kwadwo espinal MD, PhD Work Phone: [facility] Comment on above: Patient Update Start: 09-12-2023 End: 09-12-2023 ambulatory KWADWO HAWRAMOS [facility] Start: 09-12-2023 ambulatory MELANIE Alfred y:[facility] Start: 08-27-2023 ambulatory Luis lopez RN Work Phone: [facility] Start: 08-27-2023 Follow-up encounter Luis andres RN Work Phone: [employer] Comment on above: Transition Of Care ( TCM follow up [facility] Discharge 08/12/23) Start: 08-24-2023 End: 08-24-2023 ambulatory JAYDA ACE Facility:[facility] Start: 08-24-2023 End: 08-24-2023 Patient encounter procedure Jayda Ace PA-C Work Phone: Neurology Comment on above: History of traumatic brain injury (Primary Dx); Memory loss; Balance problem; SAH (subarachnoid hemorrhage) (HCC); Frequent falls Start: 08-20-2023 ambulatory 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 RN IND [facility] Start: 08-20-2023 Follow-up encounter 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 Comment on above: Transition Of Care ( TCM Follow Up/) Start: 08-15-2023 Patient Outreach Luis lara RN Work Phone: [employer] Comment on above: Transition Of Care ( TCM Initial [facility] Discharge 08/12/23) Start: 08-12-2023 Orders Only Melanie nunn PA-C Work Phone: [place] [facility] Comment on above: Spinal stenosis of c ervical region (Primary Dx); SAH (subarachnoid hemorrhage) (HCC) Start: 08-11-2023 End: 08-12-2023 Evaluation and management of inpatient JOSUÉ Estefanía RODRIGUEZ Facility:[facility] Start: 07-26-2023 End: 07-26-2023 Patient encounter procedure Josefa HUNTC Work Phone: Urology Comment on above: BPH with obstruction /lower urinary tract symptoms (Primary Dx); Renal lesion; Urinary retention Start: 07-12-2023 Telephone encounter Geoffrey Adams MD Work Phone: [facility] [place] Comment on above: Results Start: 07-01-2023 End: 07-01-2023 Patient encounter procedure Geoffrey Adams MD Work Phone: [facility] [place] Comment on above: Mild cognitive impai rment (Primary Dx); Rosacea, acne; DDD (degenerative disc disease), lumbar; Spinal stenosis of lumbar region, unspecified whether neurogenic claudication present; Closed head injury, sequela; Pure hypercholesterolemia; Prediabetes Start: 05-25-2023 End: 05-25-2023 Patient encounter procedure Chuck Jones PA-C Work Phone: [facility] [place] Comment on above: Spinal stenosis of l umbar region, unspecified whether neurogenic claudication present; Weakness of both lower extremities Start: 05-21-2023 Refill Jayda espinoza PA-C Work Phone: Neurology Comment on above: Refill Request Start: 04-22-2023 End: 04-22-2023 Subsequent hospital visit by physician [facility] Work Phone: Radiology Comment on above: Renal lesion [N28.9] Start: 04-21-2023 Telephone encounter Ashley Singh APRN.BILL RECAPITULATION CLERK Work Phone: Neurology Comment on above: Results Start: 04-20-2023 Telephone encounter Fidelina morales APRN.BILL RECAPITULATION CLERK Work Phone: [facility] [place] Comment on above: Orders Start: 04-20-2023 End: 04-20-2023 Office outpatient visit 25 minutes Fidelina Rosas APRN.BILL RECAPITULATION CLERK Work Phone: [facility] [place] Comment on above: Renal lesion (Primar y Dx); Flank pain; DDD (degenerative disc disease), lumbar; Spinal stenosis of lumbar region, unspecified whether neurogenic claudication present; Weakness of right lower extremity; Weakness of both lower extremities; Ataxia Start: 04-13-2023 Orders Only Ashley schafer APRN.BILL RECAPITULATION CLERK Work Phone: Neurology Comment on above: Spinal stenosis of l umbar region, unspecified whether neurogenic claudication present (Primary Dx); Weakness of both lower extremities Results Start: 04-12-2023 End: 04-12-2023 Subsequent hospital visit by physician Itz Carlson (Lg Br/Open/1.5t) Work Phone: Radiology Comment on above: Spinal stenosis of l umbar region, unspecified whether neurogenic claudication present [M48.061] Start: 04-06-2023 Telephone encounter Ashley Junaid edmonds APRN.BILL RECAPITULATION CLERK Work Phone: [facility] Comment on above: Patient Update; Grace ent Question Start: 03-18-2023 Telephone encounter Fidelina morales APRN.BILL RECAPITULATION CLERK Work Phone: [facility] Comment on above: Results (/) Start: 03-11-2023 End: 03-11-2023 Subsequent hospital visit by physician [facility] (I-Stat) Work Phone: Cat Scan Comment on above: Lung nodules [R91.8] Start: 03-01-2023 End: 03-01-2023 Subsequent hospital visit by physician [facility] Work Phone: Radiology Comment on above: Weight loss [R63.4] Start: 03-01-2023 End: 03-01-2023 Office outpatient visit 25 minutes Fidelina Rosas APRN.BILL RECAPITULATION CLERK Work Phone: [facility] Comment on above: Weight loss (Primary Dx); Rosacea, acne; Pure hypercholesterolemia; Weakness of both lower extremities; Dementia without behavioral disturbance (HCC) Start: 01-18-2023 Refill Geoffrey Adams MD Work Phone: [facility] Comment on above: Refill Request Start: 11-26-2022 End: 11-26-2022 Patient encounter procedure Jayda Ace PA-C Work Phone: Neurology Comment on above: History of traumatic brain injury (Primary Dx); Memory loss; Balance problem Start: 11-18-2022 End: 11-18-2022 Patient encounter procedure Macario Tan MD Work Phone: Orthopaedics Comment on above: Other sprain of left middle finger, initial encounter (Primary Dx) Start: 11-02-2022 End: 11-02-2022 Subsequent hospital visit by physician Frank [facility] Work Phone: Radiology Comment on above: Finger pain, right [ M79.644] Start: 11-02-2022 End: 11-02-2022 Patient encounter procedure Becca Titus EXECUTOR OF ESTATE.BILL RECAPITULATION CLERK Work Phone: [facility] Comment on above: Finger pain, right ( Primary Dx); Finger injury, right, initial encounter Start: 10-15-2022 Refill Geoffrey Adams MD Work Phone: [facility] Comment on above: Refill Request Start: 09-24-2022 Refill Ashley schafer APRN.BILL RECAPITULATION CLERK Work Phone: Neurology Comment on above: Refill Request Start: 07-20-2022 End: 07-20-2022 Patient encounter procedure Josefa Jacobs PA-C Work Phone: Urology Comment on above: BPH with obstruction /lower urinary tract symptoms (Primary Dx); S/P TURP Start: 06-24-2022 End: 06-24-2022 Patient encounter procedure Geoffrey Adams MD Work Phone: [facility] Comment on above: DDD (degenerative di sc disease), lumbar (Primary Dx); Mild cognitive impairment; Benign non-nodular prostatic hyperplasia with lower urinary tract symptoms Start: 06-22-2022 End: 06-22-2022 Subsequent hospital visit by physician X[facility] [place] Work Phone: Radiology Comment on above: History of traumatic brain injury [Z87.820] Start: 06-17-2022 End: 06-17-2022 Patient encounter procedure Ashley Ewing APRN.BILL RECAPITULATION CLERK Work Phone: Neurology Comment on above: Memory loss (Primary Dx); History of traumatic brain injury; Balance problem Start: 06-17-2022 Telephone encounter Ashley Singh APRN.BILL RECAPITULATION CLERK Work Phone: Neurology Comment on above: requesting medicatio n Start: 05-17-2022 Telephone encounter Geoffrey Adams MD Work Phone: [facility] Comment on above: Results Start: 02-08-2022 Telephone encounter Isabella Dasilva APRN.BILL RECAPITULATION CLERK Work Phone: [facility] Comment on above: Results Start: 02-08-2022 End: 02-08-2022 Subsequent hospital visit by physician [facility] [place] Work Phone: Radiology Comment on above: Left wrist pain [M25 .532] Start: 02-07-2022 End: 02-07-2022 Patient encounter procedure Isabella Dasilva APRN.CNP Work Phone: [facility] Comment on above: Left wrist pain (Isabela steve Dx) Start: 05-04-2021 End: 05-04-2021 Subsequent hospital visit by physician [facility] Work Phone: Radiology Comment on above: Hand injuries, right , initial encounter [S69.91XA] Procedures Date Procedure Procedure Detail Performing Clinician Start: 07-31-2024 Urnls dip stick/tabl et rgnt auto w/o microscopy Josefa HUNTC Work Phone: Start: 07-04-2024 Lipid 1996 panel - S aisha or Plasma Mri Br/Open/1.5t) Work Phone: Start: 07-02-2024 Adult depression scr eening assessment Geoffrey Adams MD Work Phone: Start: 11-21-2023 Ct head/brain w/o co ntrast material Kwadwo Srinivasan MD, PhD Work Phone: Start: 08-11-2023 Antibody screen MELANIE VINCENZOSIMONAMaty Comment on above: Order Comment: Speci men Type: BLOOD SPECIMENOrdering Facility: [facility] Address: [address] [place] [address] Performed By: #### T SCR ####[facility] BLOOD BANKCLIA [id number] [address] [place] Start: 07-26-2023 Urnls dip stick/tabl et rgnt auto w/o microscopy Josefa HUNTC Work Phone: Start: 07-05-2023 Lipid 1996 panel - S aisha or Plasma Geoffrey Adams MD Work Phone: Start: 04-22-2023 Us retroperitoneal r eal time w/image complete Fidelina Rosas APRN.BILL RECAPITULATION CLERK Work Phone: Start: 04-20-2023 Urnls dip stick/tabl et rgnt auto w/o microscopy Fidelina Rosas EXECUTOR OF ESTATE.BILL RECAPITULATION CLERK Work Phone: Start: 04-12-2023 Mri spinal canal lum bar w/o contrast material Ashley Ewing EXECUTOR OF ESTATE.BILL RECAPITULATION CLERK Work Phone: Start: 03-11-2023 Ct thorax w/o contra st material Fidelina Rosas EXECUTOR OF ESTATE.BILL RECAPITULATION CLERK Work Phone: Start: 03-01-2023 Radiologic exam ches t 2 views Fidelina Rosas EXECUTOR OF ESTATE.BILL RECAPITULATION CLERK Work Phone: Start: 11-02-2022 Radex fingr minimum 2 views Becca Titus EXECUTOR OF ESTATE.BILL RECAPITULATION CLERK Work Phone: Start: 07-20-2022 Urnls dip stick/tabl et rgnt auto w/o microscopy Josefa Jacobs PA-C Work Phone: Start: 06-22-2022 Radex spine lumbosac ral 2/3 views Ashley Ewing EXECUTOR OF ESTATE.BILL RECAPITULATION CLERK Work Phone: Start: 05-03-2022 Lipid 1996 panel - S aisha or Plasma Geoffrey Adams MD Work Phone: Start: 04-29-2022 Adult depression scr eening assessment Geoffrey Adams MD Work Phone: Start: 02-08-2022 Radex wrist complete minimum 3 views Isabella Dasilva EXECUTOR OF ESTATE.BILL RECAPITULATION CLERK Work Phone: Start: 10-20-2021 History of transuret hral prostatectomy S/P TURP Isabella Dasilva EXECUTOR OF ESTATE.BILL RECAPITULATION CLERK Work Phone: Start: 05-04-2021 Radex hand minimum 3 views Deepak Reyna EXECUTOR OF ESTATE.BILL RECAPITULATION CLERK Work Phone: Start: 04-10-2021 Adult depression scr eening assessment Isabella Dasilva EXECUTOR OF ESTATE.BILL RECAPITULATION CLERK Work Phone: History of transuret hral prostatectomy S/P TURP Josefa Jacobs PA-C Work Phone: Plan of Treatment Date Care Activity Detail Author Start: 09-05-2030 Urine microalbumin profile [facility] [facility] Start: 07-04-2029 Lipid panel Lipid Screening [facility] Start: 07-05-2028 Lipid 1996 panel - Serum or Plasma Lipid Screening [facility] Start: 07-05-2028 Lipid panel Lipid Screening [facility] Start: 03-01-2028 PROSTATE CANCER SCREENING DISCUSSION PROSTATE CANCER SCREENING DISCUSSION [facility] Start: 07-04-2027 Diabetes Screening Diabetes Screening [facility] Start: 05-03-2027 Lipid 1996 panel - Serum or Plasma Lipid Screening [facility] Start: 05-03-2027 LIPID SCREEN LIPID SCREEN [facility] Start: 09-19-2026 Diabetes Screening Diabetes Screening [facility] Start: 08-12-2026 Diabetes Screening Diabetes Screening [facility] Start: 07-05-2026 Diabetes Screening Diabetes Screening [facility] Start: 03-30-2026 PROSTATE CANCER SCREENING DISCUSSION PROSTATE CANCER SCREENING DISCUSSION [facility] Start: 03-01-2026 DIABETES SCREEN DIABETES SCREEN [facility] Start: 03-01-2026 Diabetes Screening Diabetes Screening [facility] Start: 08-06-2025 End: 08-06-2025 Patient encounter procedure 08/06/2025 1:00 PM EDT Office Visit Urology [address] [place] [address] Josefa Jacobs PA-C [address] [place] [address] 1 YR F/U Urology Comment on above: 1 YR F/U Start: 07-31-2025 End: 10-30-2025 Prostate specific Ag [Mass/volume] in Serum or Plasma PROSTATE-SPECIFIC ANTIGEN DIAGNOSTIC Lab Routine BPH with obstruction/lower urinary tract symptoms Expected: 07/31/2025 (Approximate), Expires: 10/30/2025 [facility] Comment on above: Expected: 07/31/2025 (Approximate), Expi res: 10/30/2025 Start: 07-02-2025 Anxiety Screening Anxiety Screening [facility] Start: 07-02-2025 Covid-19 Vaccine () Covid-19 Vaccine () [facility] Comment on above: Postponed from 06/17/2024 (Declined at t his time) Start: 07-02-2025 Covid-19 Vaccine () Covid-19 Vaccine () [facility] Comment on above: Postponed from 06/17/2024 (Declined at t his time) Start: 07-02-2025 Depression Screening Depression Screening [facility] Start: 07-02-2025 Shingrix Vaccine (1 of 2) Shingrix Vaccine (1 of 2) [facility] Comment on above: Postponed from 2004 (Declined at t his time) Start: 05-03-2025 DIABETES SCREEN DIABETES SCREEN [facility] Start: 04-15-2025 Influenza vaccination Influenza Vaccine (#1) [facility] Comment on above: Postponed from 06/17/2024 (Declined at t his time) Start: 01-17-2025 Screening for malignant neoplasm of colon [facility] Start: 01-08-2025 End: 01-08-2025 Patient encounter procedure 01/08/2025 11:30 AM EDT Office Visit Neurology [address] [place], [place] [id number] Jayda Ace PA-C [address] [place], [place] [address] Six month follow up Neurology Comment on above: Six month follow up Start: 01-02-2025 End: 01-02-2025 Patient encounter procedure 01/02/2025 10:40 AM EDT Office Visit Family [facility] [address] [place], [place] [id number] Geoffrey Adams MD [address] [place] [address] 6 month follow up [facility] Comment on above: 6 month follow up Start: 12-29-2024 Covid-19 Vaccine () Covid-19 Vaccine () [facility] Comment on above: Postponed from 06/17/2023 (Declined at t his time) Start: 12-29-2024 RSV Vaccine (1 - 1-dose 60+ series) RSV Vaccine (1 - 1-dose 60+ series) [facility] Comment on above: Postponed from 2014 (Declined at t his time) Start: 12-29-2024 RSV Vaccine (1 - Risk 60-74 years 1-dose series) RSV Vaccine (1 - Risk 60-74 years 1-dose series) [facility] Comment on above: Postponed from 2014 (Declined at t his time) Start: 08-19-2024 DIABETES SCREEN DIABETES SCREEN [facility] Start: 08-07-2024 End: 08-07-2024 Patient encounter procedure 08/07/2024 11:30 AM EDT Office Visit Neurology [address] [place], [place] [phone] Jayda Ace PA-C [address] [facility] [place] [id number] Three month follow up memory Neurology Comment on above: Three month follow up memory Start: 07-31-2024 End: 07-31-2024 Patient encounter procedure 07/31/2024 1:00 PM EDT Office Visit Urology [address] [place], [place] [id number] Josefa Jacobs PA-C [address] [place], [place] [id number] 1 YR F/U Urology Comment on above: 1 YR F/U Start: 07-27-2024 End: 07-27-2024 ambulatory 07/27/2024 11:30 AM EDT Results Only [facility] [address] [facility] [place] [address] [facility] Start: 07-26-2024 End: 09-25-2024 Prostate specific Ag [Mass/volume] in Serum or Plasma PSA/PROSTSPECAG DIAG Lab Routine BPH with obstruction/lower urinary tract symptoms Expected: 07/26/2024 (Approximate), Expires: 09/25/2024 [facility] Work Phone: Comment on above: Expected: 07/26/2024 (Approximate), Expi res: 09/25/2024 Start: 07-02-2024 End: 07-02-2024 Patient encounter procedure 07/02/2024 11:20 AM EDT Office Visit [facility] [address] [place] [address] Geoffrey Adams MD [address] [place] [address] 6 month follow up. Fasting labs prior [facility] [place] Comment on above: 6 month follow up. Fasting labs prior Start: 07-01-2024 End: 09-30-2024 CBC W Auto Differential panel - Blood CBC + DIFF Lab Routine Pure hypercholesterolemia Expected: 07/01/2024, Expires: 09/30/2024 [facility] Work Phone: Comment on above: Expected: 07/01/2024, Expires: Start: 07-01-2024 End: 09-30-2024 Comprehensive metabolic 2000 panel - Serum or Plasma COMP METABOLIC PANEL Lab Routine Prediabetes Expected: 07/01/2024, Expires: 09/30/2024 [facility] Work Phone: Comment on above: Expected: 07/01/2024, Expires: 4 Start: 07-01-2024 End: 09-30-2024 Hemoglobin A1c in Blood HGB A1C Lab Routine Prediabetes Expected: 07/01/2024, Expires: 09/30/2024 [facility] Work Phone: Comment on above: Expected: 07/01/2024, Expires: 4 Start: 07-01-2024 End: 09-30-2024 Lipid 1996 panel - Serum or Plasma LIPID PANEL BASIC Lab Routine Pure hypercholesterolemia Expected: 07/01/2024, Expires: 09/30/2024 [facility] Work Phone: Comment on above: Expected: 07/01/2024, Expires: 4 Start: 07-01-2024 Shingrix Vaccine (1 of 2) Shingrix Vaccine (1 of 2) [facility] Comment on above: Postponed from 2004 (Declined at t his time) Start: 06-20-2024 End: 06-20-2024 ambulatory 06/20/2024 12:45 PM EDT OT/PT/Speech Visit [facility] [address] [place] [address] Connie Pepe, OTR/L [address] [place] [address] Driving evaluation [facility] Comment on above: Driving evaluation Start: 06-17-2024 Covid-19 Vaccine () Covid-19 Vaccine () [facility] Start: 06-17-2024 Influenza vaccination Influenza Vaccine (#1) [facility] Start: 04-15-2024 Influenza vaccination Influenza Vaccine (#1) [facility] Comment on above: Postponed from 06/17/2023 (Declined at t his time) Start: 03-02-2024 COLORECTAL CANCER SCREENING COLORECTAL CANCER SCREENING [facility] Start: 03-02-2024 FECAL OCCULT BLOOD FECAL OCCULT BLOOD [facility] Start: 03-02-2024 Screening for malignant neoplasm of colon [facility] Start: 12-23-2023 COVID-19 VACCINE (#1) COVID-19 VACCINE (#1) [facility] Comment on above: Postponed from 1954 (Declined at t his time) Start: 10-25-2023 LIPID SCREEN LIPID SCREEN [facility] Start: 10-17-2023 Advance Directive Discussion Advance Directive Discussion [facility] Start: 10-17-2023 Depression Assessment Depression Assessment [facility] Start: 07-20-2023 End: 09-19-2023 Prostate specific Ag [Mass/volume] in Serum or Plasma PSA/PROSTSPECAG DIAG Lab Routine S/P TURP Expected: 07/20/2023 (Approximate), Expires: 09/19/2023 [facility] Work Phone: Comment on above: Expected: 07/20/2023 (Approximate), Expi res: 09/19/2023 Start: 07-01-2023 End: 08-31-2023 Hemoglobin A1c in Blood HGB A1C Lab Routine Prediabetes Expected: 07/01/2023, Expires: 08/31/2023 [facility] Work Phone: Comment on above: Expected: 07/01/2023, Expires: 3 Start: 06-17-2023 Influenza vaccination [facility] Start: 04-30-2023 COLORECTAL CANCER SCREENING COLORECTAL CANCER SCREENING [facility] Start: 04-30-2023 FECAL OCCULT BLOOD FECAL OCCULT BLOOD [facility] Start: 04-29-2023 Adult depression screening assessment DEPRESSION SCREENING [facility] Start: 04-06-2023 End: 06-06-2023 Creatine kinase [Enzymatic activity/volume] in Serum or Plasma CK CREATINE KINASE Lab Routine Weakness of right lower extremity Expected: 04/06/2023, Expires: 06/06/2023 [facility] Work Phone: Comment on above: Expected: 04/06/2023, Expires: 3 Start: 03-01-2023 End: 05-01-2023 25-hydroxyvitamin D3 [Mass/volume] in Serum or Plasma [facility] Work Phone: Comment on above: Expected: 03/01/2023, Expires: 3 Start: 03-01-2023 End: 05-01-2023 Bacteria identified in Urine by Culture [facility] Work Phone: Comment on above: Expected: 03/01/2023, Expires: 3 Start: 03-01-2023 End: 03-01-2024 C reactive protein [Mass/volume] in Serum or Plasma [facility] Work Phone: Comment on above: Expected: 03/01/2023, Expires: 4 Start: 03-01-2023 End: 03-01-2024 Comprehensive metabolic 2000 panel - Serum or Plasma [facility] Work Phone: Comment on above: Expected: 03/01/2023, Expires: 4 Start: 03-01-2023 End: 03-01-2024 Hemoglobin A1c in Blood [facility] Work Phone: Comment on above: Expected: 03/01/2023, Expires: 4 Start: 03-01-2023 End: 03-01-2024 Hemoglobin.gastrointe stinal.lower [Presence] in Stool by Immunoassay FECAL OCCULT BLOOD TEST Lab Routine Weight loss Expected: 03/01/2023, Expires: 03/01/2024 [facility] Work Phone: Comment on above: Expected: 03/01/2023, Expires: 4 Start: 03-01-2023 End: 05-01-2023 PSA/PROSTSPECAG SCRN [facility] Work Phone: Comment on above: Expected: 03/01/2023, Expires: 3 Start: 03-01-2023 End: 03-01-2024 Thyrotropin [Units/volume] in Serum or Plasma [facility] Work Phone: Comment on above: Expected: 03/01/2023, Expires: 4 Start: 03-01-2023 End: 05-01-2023 Thyroxine (T4) free [Mass/volume] in Serum or Plasma [facility] Work Phone: Comment on above: Expected: 03/01/2023, Expires: 3 Start: 10-17-2022 ADVANCE DIRECTIVE DISCUSSION ADVANCE DIRECTIVE DISCUSSION [facility] Start: 10-17-2022 DEPRESSION ASSESSMENT DEPRESSION ASSESSMENT [facility] Start: 06-17-2022 Influenza vaccination [facility] Start: 04-10-2022 Adult depression screening assessment DEPRESSION SCREENING [facility] Start: 02-08-2022 End: 03-09-2023 XR WRIST INJURY 4V PA/LAT/OBL/SCAPH LEFT XR WRIST INJURY 4V PA/LAT/OBL/SCAPH LEFT Radiology STAT Left wrist pain Expected: 02/08/2022, Expires: 03/09/2023 [facility] Work Phone: Comment on above: Expected: 02/08/2022, Expires: 3 Start: 10-17-2021 ADVANCE DIRECTIVE DISCUSSION ADVANCE DIRECTIVE DISCUSSION [facility] Start: 10-17-2021 DEPRESSION ASSESSMENT DEPRESSION ASSESSMENT [facility] Start: 10-26-2019 COLORECTAL CANCER SCREENING COLORECTAL CANCER SCREENING [facility] Start: 10-26-2019 FECAL OCCULT BLOOD FECAL OCCULT BLOOD [facility] Start: 2019 BONE DENSITY BONE DENSITY [facility] Start: 2019 PNEUMOVAX AGE 65 AND OVER WITH 5YR LOOKBACK (#1) PNEUMOVAX AGE 65 AND OVER WITH 5YR LOOKBACK (#1) [facility] Start: 2014 RSV Vaccine (1 - 1-dose 60+ series) RSV Vaccine (1 - 1-dose 60+ series) [facility] Start: 2004 SHINGRIX VACCINE (1 of 2) SHINGRIX VACCINE (1 of 2) [facility] Start: 1999 COLOGUARD (FIT-DNA) COLOGUARD (FIT-DNA) [facility] Start: 1999 Colonoscopy COLONOSCOPY [facility] Start: [address] COLONOGRAPHY [facility] Start: 1999 Screening for malignant neoplasm of colon [facility] Start: 1999 SIGMOIDOSCOPY SIGMOIDOSCOPY [facility] Start: 1994 Mammography MAMMOGRAM [facility] Start: 1972 Anxiety Screening Anxiety Screening [facility] Start: 1972 Depression Screening Depression Screening [facility] Start: 1972 HEPATITIS C SCREENING HEPATITIS C SCREENING [facility] Start: 1959 COVID-19 VACCINE (1) COVID-19 VACCINE (1) [facility] Start: 1954 COVID-19 VACCINE (#1) COVID-19 VACCINE (#1) [facility] Start: 1955 ABDOMINAL AORTIC ANEURYSM SCREENING ABDOMINAL AORTIC ANEURYSM SCREENING [facility] End: 09-10-2024 CT BRAIN WO IVCON CT BRAIN WO IVCON Radiology Routine SAH (subarachnoid hemorrhage) (HCC) 1 Occurrences starting 08/12/2023 until 09/10/2024 [facility] Work Phone: Comment on above: 1 Occurrences starting 08/12/2023 until 09/10/2024 End: 04-06-2024 EMG(NEURO/NI) EMG(NEURO/NI) EMG Routine Balance problem Weakness of right lower extremity DDD (degenerative disc disease), lumbar 1 Occurrences starting 04/06/2023 until 04/06/2024 [facility] Work Phone: Comment on above: 1 Occurrences starting 04/06/2023 until 04/06/2024 Hemoglobin.gastroint e stinal.lower [Presence] in Stool by Immunoassay FECAL OCCULT BLOOD TEST Lab Routine Screening for colon cancer Ordered: 12/30/2023 [facility] Work Phone: Comment on above: Ordered: 12/30/2023 IR NEURO EMBOLIZATIO N CONSULT IR NEURO EMBOLIZATION CONSULT Radiology Routine Chronic subdural hematoma (HCC) Ordered: 09/22/2023 [facility] Work Phone: Comment on above: Ordered: 09/22/2023 End: 09-10-2024 Mri spinal canal cervical w/o contrast matrl MRI CERVICAL SPINE WO IVCON Radiology Routine Spinal stenosis of cervical region 1 Occurrences starting 08/12/2023 until 09/10/2024 [facility] Work Phone: Comment on above: 1 Occurrences starting 08/12/2023 until 09/10/2024 End: 05-05-2024 Mri spinal canal lumbar w/o contrast material MRI LUMBAR SPINE WO IVCON Radiology Routine Spinal stenosis of lumbar region, unspecified whether neurogenic claudication present 1 Occurrences starting 04/06/2023 until 05/05/2024 [facility] Work Phone: Comment on above: 1 Occurrences starting 04/06/2023 until 05/05/2024 POST VOID RESIDUAL POST VOID RES IDUAL Procedures Routine S/P TURP Ordered: 07/20/2022 [facility] Work Phone: Comment on above: Ordered: 07/20/2022 POST VOID RESIDUAL POST VOID RES IDUAL Procedures Routine Urinary retention BPH with obstruction/lower urinary tract symptoms Ordered: 07/26/2023 [facility] Work Phone: Comment on above: Ordered: 07/26/2023 POST VOID RESIDUAL POST VOID RES IDUAL Procedures Routine BPH with obstruction/lower urinary tract symptoms Ordered: 07/31/2024 [facility] Work Phone: Comment on above: Ordered: 07/31/2024 End: 03-01-2024 PVR ANK PRESS [facility] PVR ANK [facility] Vascular Lab Routine Weakness of both lower extremities 1 Occurrences starting 03/01/2023 until 03/01/2024 [facility] Work Phone: Comment on above: 1 Occurrences starting 03/01/2023 until 03/01/2024 End: 07-17-2023 Radex spine lumbosacral 2/3 views XR LUMBAR GENERAL 3V AP/LAT/L5-S1 Radiology Routine History of traumatic brain injury Balance problem 1 Occurrences starting 06/17/2022 until 07/17/2023 [facility] Work Phone: Comment on above: 1 Occurrences starting 06/17/2022 until 07/17/2023 End: 04-01-2024 Radiologic exam chest 2 views XR CHEST 2V FRONTAL/LAT Radiology Routine Weight loss 1 Occurrences starting 03/01/2023 until 04/01/2024 [facility] Work Phone: Comment on above: 1 Occurrences starting 03/01/2023 until 04/01/2024 Radiologic exam ches t 2 views XR CHEST 2V FRONTAL/LAT Radiology Routine Weight loss 03/01/2023 2:29 PM EDT [facility] Work Phone: End: 05-19-2024 US KIDNEY/BLADDER US KIDNEY/BLADDER Radiology Routine Renal lesion 1 Occurrences starting 04/20/2023 until 05/19/2024 [facility] Work Phone: Comment on above: 1 Occurrences starting 04/20/2023 until 05/19/2024 [facility] Immunizations Immunization Date Immunization Notes Care Provider Yakelin kumar 06-17-2022 influenza, high dose seasonal, preservative-free Geoffrey Adams MD Work Phone: [facility] 06-17-2022 influenza virus vacc ine, unspecified formulation Geoffrey Adams MD Work Phone: [facility] 04-29-2022 pneumococcal (PCV20) vaccine, 20 valent (PREVNAR 20) Geoffrey Adams MD Work Phone: [facility] 09-05-2020 tetanus toxoid, redu rose diphtheria toxoid, and acellular pertussis vaccine, adsorbed Isabella Dasilva APRN.BILL RECAPITULATION CLERK Work Phone: [facility] 05-14-2020 pneumococcal conjuga te vaccine, 13 valent Isabella Dasilva APRN.BILL RECAPITULATION CLERK Work Phone: [facility] 07-12-2018 influenza, seasonal, injectable, preservative free Isabella Dasilva APRN.BILL RECAPITULATION CLERK Work Phone: [facility] 06-17-2016 influenza, seasonal, injectable Isablela Dasilva APRN.BILL RECAPITULATION CLERK Work Phone: [facility] Work Phone: 06-17-2015 influenza virus vacc ine, unspecified formulation Isabella Dasilva APRN.BILL RECAPITULATION CLERK Work Phone: [facility] 05-14-2013 pneumococcal polysaccharide vaccine, 23 valent Isabella Dasilva APRN.BILL RECAPITULATION CLERK Work Phone: [facility] 02-22-2011 tetanus toxoid, redu rose diphtheria toxoid, and acellular pertussis vaccine, adsorbed Isabella Dasilva EXECUTOR OF ESTATE.BILL RECAPITULATION CLERK Work Phone: [facility] Work Phone: Payers Date Payer Category Payer Medicare [employer] MEDICARE A ETNA MEDICARE PPO [id number] 2021-Present [phone] [address] [place] [address] O [id number] 2021 Medicare [id number] 2021 Medicare [id number] Social History Date Type Detail Facility Start: 05-14-2013 End: 02-14-2018 Tobacco smoking status NHIS Ex-smoker [facility] Work Phone: Start: 05-14-2013 End: 07-02-2024 Tobacco use and exposure Former smokeless tobacco user [facility] Work Phone: Start: 05-04-2021 End: 02-07-2022 Alcohol intake Current non-drinker of alcohol (finding) [facility] Start: 08-03-2021 End: 06-17-2022 Tobacco Comment occasionally will have a cigarette [facility] Start: 1955 Sex Assigned At Not on file [facility] Start: 03-11-2021 End: 07-20-2022 Exposure to SARS-CoV-2 (event) Not sure [facility] History of tobacco use Current smoker [facility] History of tobacco use Cigarette Smoker [facility] Start: 03-01-2023 End: 07-02-2024 Tobacco smoking status IAIS Smokes tobacco daily [facility] Work Phone: Start: 04-20-2023 End: 05-25-2023 History of Social function [facility] Work Phone: Start: 04-20-2023 End: 05-25-2023 Tobacco use panel [facility] Work Phone: Adult Depression Screening Assessment 0 [facility] Work Phone: Start: 04-12-2023 Gender identity Identifies as male gender (finding) [facility] Start: 1955 Sex Assigned At Male [facility] Start: 07-26-2023 End: 08-07-2024 Alcohol intake Ex-drinker (finding) [facility] (I/We) worried wheth er (my/our) food would run out before (I/we) got money to buy more. Never true [facility] In the past 12 month s, was there a time when you were not able to pay the mortgage or rent on time? No [facility] Start: 09-07-2023 Sexual orientation Heterosexual (madison mendez) [facility] Are you now , , , , never or living with a partner? [facility] How often to you hav e a drink containing alcohol? Never [facility] Do you feel stress - tense, restless, nervous, or anxious, or unable to sleep at night because your mind is troubled all the time - these days [OSQ] Not at all [facility] Clinical Notes 05-04-2021 to 08-07-2024 Patient InstructionsJayda Ace PA-C - 08/07/2024 11:17 AM EDTMJosefa morgan PA-C - 07/31/2024 1:43 PM EDTCRuth gonzalez LPN - 07/31/2024 1:02 PM EDTPatient InstructionsPatient Instructions Note Date & Type Note Facility 08-07-2024 Instructions Jayda Ace PA-C - 08/07/2024 11:50 AM EDT Increase brain exercises while watching television Continue the namenda 5 mg twice daily Physical therapy for strengthening and fall prevention, use walker around the house to prevent falls. Increase water intake to 40-60 ounces a day Follow up in 5-6 months documented in this encounter [facility] 08-07-2024 Note HNO ID: [id number] Author: JAYDA ACE PA-C Service: ? Author Type: Physician Set Up Mechanic [employer] Type: Progress Notes Filed: 08/07/2024 12:21 Note Text: ESTABLISHED PATIENT VISIT Last visit: 04/24/24 ASSESSMENT/PLAN: 1. Subdural hematoma (HCC) - ICD9: 432.1, ICD10: S06.5XAA (primary diagnosis) Resolved, follow-up with neurosurgery. 2. Dementia without behavioral disturbance (HCC) - ICD9: 294.20, ICD10: F03.90 Patient presents with his today for follow-up for dementia. Doing well on Namenda 5 mg twice daily, did have some decrease in MoCA today with 10/10, previous was . No significant subjective change based off of patient and family report. However, patient's is very concerned about his driving, patient was told to have occupational therapy evaluation at last appointment but deferred this and has been sober and driving on his own. Patient's messaged on MyChart and expressed a deep concern for his driving ability she does not feel he is safe. Discussed at length today with patient and family my concerns for his driving and that he should not resume driving again until he has an occupational therapy evaluation. Patient agrees. Discussed possibly escalating to the BMV should his family's concerns be present. Discussed increasing Namenda but patient deferring at this time. Previously deferring any further evaluation with neuropsychological testing. Encouraged conservative therapy including physical activity as patient is very sedentary, increasing water intake. Patient did lose a few pounds, but still healthy BMI, will continue to monitor. No new symptoms that would warrant additional workup at this time. 3. Frequent falls - ICD9: V15.88, ICD10: R29.6 4. Balance problem - ICD9: 781.99, ICD10: R26.89 5. Cervical stenosis of spinal canal - ICD9: 723.0, ICD10: M48.02 Patient did have 1 fall since last appointment, reporting some occasional unsteadiness on his feet. Patient with shuffling gait on exam. Deferred cervical stenosis surgery through neurosurgery, encouraged follow-up for continued monitoring. Discussed signs and symptoms that would warrant emergent evaluation emergency department, patient and family agree and understand. Patient and family agreeable to treatment plan of care at this time, questions were answered. Patient to follow-up in 3 months or sooner should any symptoms change or worsen. Jayda Ace PA-C CHIEF COMPLAINT: follow up HISTORY OF PRESENT ILLNESS: Lyric Padron is a 69 year old male, BMI 24.93 kg/m2 with a PMH significant for Head injury 2008, MCI, DDD. Last seen on 04/24/24 for subdural hematoma, memory loss, dementia. noting some worsening in memory. Driving eval and was told to stop. On namenda 5mg bid. MoCA was 10/14, down from previous. Deferred increasing meds, deferring neuropsych testing. Following with neurosurgery for cervical stenosis. Patient presents with his today for follow-up appointment. Notes that memory has been stable, no new concerns with this. No mood changes, sleeping well, no wandering at night, no confusion. Primary concern today is frequent falls. Notes that since last appointment has had 5-6 falls, more inside and outside. Falls in many different ways, once he stood up from the toilet using the assistive device, but once he started walking he fell down. Other times, his falls are due to using things around the house to stabilize himself, notes that sometimes he will use a chair with wheels and this is not of a stable causing him to fall. Does have 2 walkers at home but does not like to use them. Will occasionally uses cane but not a lot of support with this. Likely will also fall as he is going to sit down, notes that he tends to lean a bit forward when he walks so when he goes to sit down he falls forward. No significant injuries with any of these falls, but is very concerned. Also notes that he is unable to walk for longer distances that he was before. Can nolonger go to [employer] and walk around the store, is concerned that he is more weaker in his legs as well Weight has been stable. Activity is poor, primarily sits and watches TV all day, not many brain activities throughout the day as well. Did complete occupational therapy evaluation and is no longer driving. REVIEW OF SYSTEMS GENERAL:No weight loss, malaise or fevers. HEENT:Negative for frequent or significant headaches, No changes in hearing or vision, no nose bleeds or other nasal problems NECK:Negative for lumps, goiter, pain and significant neck swelling RESPIRATORY: Negative for cough, wheezing or shortness of breath. CARDIOVASCULAR: Negative for chest pain, leg swelling or palpitations. GASTROINTESTINAL: Negative for abdominal discomfort, blood in stools or black stools or change in bowel habits GENITOURINARY: No history of dysuria, frequency or incontinence MUSCULOSKELETAL: Negative for joint pain or swel (more content not included)... [facility] 08-07-2024 History of Present illness Narrative ESTABLISHED PATIENT VISIT Last visit: 04/24/24 ASSESSMENT/PLAN: 1. Subdural hematoma (HCC) - ICD9: 432.1, ICD10: S06.5XAA (primary diagnosis) Resolved, follow-up with neurosurgery. 2. Dementia without behavioral disturbance (HCC) - ICD9: 294.20, ICD10: F03.90 Patient presents with his today for follow-up for dementia. Doing well on Namenda 5 mg twice daily, did have some decrease in MoCA today with 10/10, previous was . No significant subjective change based off of patient and family report. However, patient's is very concerned about his driving, patient was told to have occupational therapy evaluation at last appointment but deferred this and has been sober and driving on his own. Patient's messaged on [employer] and expressed a deep concern for his driving ability she does not feel he is safe. Discussed at length today with patient and family my concerns for his driving and that he should not resume driving again until he has an occupational therapy evaluation. Patient agrees. Discussed possibly escalating to the BMV should his family's concerns be present. Discussed increasing Namenda but patient deferring at this time. Previously deferring any further evaluation with neuropsychological testing. Encouraged conservative therapy including physical activity as patient is very sedentary, increasing water intake. Patient did lose a few pounds, but still healthy BMI, will continue to monitor. No new symptoms that would warrant additional workup at this time. 3. Frequent falls - ICD9: V15.88, ICD10: R29.6 4. Balance problem - ICD9: 781.99, ICD10: R26.89 5. Cervical stenosis of spinal canal - ICD9: 723.0, ICD10: M48.02 Patient did have 1 fall since last appointment, reporting some occasional unsteadiness on his feet. Patient with shuffling gait on exam. Deferred cervical stenosis surgery through neurosurgery, encouraged follow-up for continued monitoring. Discussed signs and symptoms that would warrant emergent evaluation emergency department, patient and family agree and understand. Patient and family agreeable to treatment plan of care at this time, questions were answered. Patient to follow-up in 3 months or sooner should any symptoms change or worsen. Jayda Ace PA-C CHIEF COMPLAINT: follow up HISTORY OF PRESENT ILLNESS: Lyric Padron is a 69 year old male, BMI 24.93 kg/m2 with a PMH significant for Head injury 2007, MCI, DDD. Last seen on 04/24/24 for subdural hematoma, memory loss, dementia. noting some worsening in memory. Driving eval and was told to stop. On namenda 5mg bid. MoCA was 10/14, down from previous. Deferred increasing meds, deferring neuropsych testing. Following with neurosurgery for cervical stenosis. Patient presents with his today for follow-up appointment. Notes that memory has been stable, no new concerns with this. No mood changes, sleeping well, no wandering at night, no confusion. Primary concern today is frequent falls. Notes that since last appointment has had 5-6 falls, more inside and outside. Falls in many different ways, once he stood up from the toilet using the assistive device, but once he started walking he fell down. Other times, his falls are due to using things around the house to stabilize himself, notes that sometimes he will use a chair with wheels and this is not of a stable causing him to fall. Does have 2 walkers at home but does not like to use them. Will occasionally uses cane but not a lot of support with this. Likely will also fall as he is going to sit down, notes that he tends to lean a bit forward when he walks so when he goes to sit down he falls forward. No significant injuries with any of these falls, but is very concerned. Also notes that he is unable to walk for longer distances that he was before. Can no longer go to [employer] and walk around the store, is concerned that he is more weaker in his legs as well Weight has been stable. Activity is poor, primarily sits and watches TV all day, not many brain activities throughout the day as well. Did complete occupational therapy evaluation and is no longer driving. REVIEW OF SYSTEMS GENERAL:No weight loss, malaise or fevers. HEENT:Negative for frequent or significant headaches, No changes in hearing or vision, no nose bleeds or other nasal problems NECK:Negative for lumps, goiter, pain and significant neck swelling RESPIRATORY: Negative for cough, wheezing or shortness of breath. CARDIOVASCULAR: Negative for chest pain, leg swelling or palpitations. GASTROINTESTINAL: Negative for abdominal discomfort, blood in stools or black stools or change in bowel habits GENITOURINARY: No history of dysuria, frequency or incontinence MUSCULOSKELETAL: Negative for joint pain or swelling, back pain or muscle pain. NEUROLOGIC:Negative for focal numbness or weakness, headaches and dizziness or syncope, vision changes, speech/languag changes - EXCEPT that as per HPI above. SKIN:Negative for lesions, rash, and itching. PSYCHIATRIC: Negative for sleep disturbance, mood disorder and recent psychosocial stressors. HEMATOLOGIC/LYMPHATIC/IMMUNOLOGIC: Negative for prolonged bleeding, bruising easily or swollen nodes. ENDOCRINE: Negative for cold or heat intolerance, polyuria, polydipsia and goiter. The remainder of the ROS was reviewed and is negative. LAB/IMAGING: Those performed since patient's last visit have been reviewed. OT eval on 06/20/24 Driving Recommendations: REFRAIN FROM DRIVING. Recommend client retire from driving at this time. Educated client and client's about fci from driving and provided resources to seek out transportation options through their insurance as well as potential options outside of insurance. Educated client and client's to connect with [facility] [employer] [facility] in their area for local resources. Educated about deficits observed on assessment this date and safety implications with driving. Educated client and client's that planning ahead for the week can help client still go do the things he wants to do if they need to plan around other events/things his has to complete. MEDICATIONS: terazosin (HYTRIN) 5 mg capsule Take 1 capsule by mouth daily at bedtime. pravastatin (PRAVACHOL) 40 mg tablet Take 1 tablet by mouth once daily. memantine (NAMENDA) 5 mg tablet Take 1 tablet by mouth two times a day. ibuprofen (MOTRIN) 400 mg tablet Take by mouth. meloxicam (MOBIC) 15 mg tablet Take 1 tablet by mouth once daily. With food. minocycline (MINOCIN, DYNACIN) 50 mg capsule Take 1 capsule by mouth twice daily. acetaminophen (TYLENOL) 325 mg tablet Take 2 tablets by mouth every 6 hours as needed for Pain. HISTORIES PAST MEDICAL HISTORY Diagnosis Date Arthritis BPH with obstruction/lower urinary tract symptoms Renal lesion 07/26/2023 Rosacea Subarachnoid hemorrhage (HCC) 08/11/2023 FAMILY HISTORY Problem Relation Age of Onset Arthritis Mother Cancer Mother melanoma Heart Mother Viral myocarditis. GI Father ulcers SOCIAL HISTORY Social History Tobacco Use Smoking status: Every Day Current packs/day: 0.50 Average packs/day: 0.5 packs/day for 20.0 years (10.0 ttl pk-yrs) Types: Cigarettes Smokeless tobacco: Former Vaping Use Vaping status: Never Used Substance Use Topics Alcohol use: Not Currently Drug use: Never PHYSICAL EXAMINATION BP 123/81 (BP Site: Left Arm, BP Position: Sitting) Pulse 83 Wt 67.9 kg (149 lb 12.8 oz) SpO2 98% BMI 24.93 kg/m GENERAL EXAM: General appearance: NAD, pleasant. HEENT: NC/AT, nasal congestion absent, no oral lesions, membranes moist. NECK: No masses, supple. Lungs: Breathing comfortably Extr: Moves all extremities without difficulty Skin: Cool to touch. No rash. Psych: Flat affect NEUROLOGICAL EXAM: General: Awake, alert, oriented x3 (person,place,time), speech fluent, no dysarthria; comprehension, naming, repetition intact. Deferred moca due to time. CN: PERRL, EOMI and without nystagmus, VFF to confrontation, facial sensation and strength are normal and symmetric, hearing is intact to finger rub bilaterally, palate and tongue movements are intact and symmetric. SCM and trapezius strength normal. Motor: Normal tone, bulk and strength (5/5) bilaterally (throughout extremities x4). Coordination: No tremors. Sensation: No evidence of neglect. Gait: Gait deferred due to fall risk Assessment and Plan: ASSESSMENT/PLAN: 1. Subdural hematoma (HCC) - ICD9: 432.1, ICD10: S06.5XAA (primary diagnosis) 2. Dementia without behavioral disturbance (HCC) - ICD9: 294.20, ICD10: F03.90 3. Balance problem - ICD9: 781.99, ICD10: R26.89 4. Frequent falls - ICD9: V15.88, ICD10: R29.6 5. Cervical stenosis of spinal canal - ICD9: 723.0, ICD10: M48.02 6. History of traumatic brain injury - ICD9: V15.52, ICD10: Z87.820 7. Memory loss - ICD9: 780.93, ICD10: R41.3 With chronic memory loss worsening after TBI a year ago, on Namenda 5 mg twice daily. notes stable memory since last appointment, primary concern today is frequent falls. Following with neurosurgery due to history of subarachnoid hemorrhage due to the fall as well as severe cervical stenosis, currently deferring surgery at this time. Since last appointment, patient has had 5-6 falls, did reach out to neurosurgery and was instructed go to the emergency department but did not do so. Patient primarily following inside due to instability, notes that has been using a wheelchair to get around and this is unstable causing him to fall. Also falls as he is going to sit down because he is leaning slightly forward. notes that he has been progressively weaker as well, no longer able to walk around the grocery store. On exam he does have full strength, feel this is more of deconditioning. Patient primarily watches television throughout the day, not much physical or cognitive activity. Weight has been stable, appetite stable. Does not drink much water, but notes sleep and mood are also stable. At this time, concern for cervical stenosis causing frequent falls but also deconditioning. Will have patient follow-up with neurosurgery as well as undergo physical therapy for overall strengthening. Discussed at length the importance of using a walker at home, patient does have 1 but does not use it. Discussed if he continues to fall there may be a need for a wheelchair to prevent significant injury with falls. Patient and family understand and agree. Patient and family like this faxed to [facility] and this was done. In terms of memory, no changes at this time, encouraged cognitive exercises as patient is primarily watching television throughout the day. Discussed increasing puzzles, conversation, reading throughout the day to help stimulate his brain. Patient and agreeable to treatment plan of care at this time, questions were answered. Patient to follow-up in 5 to 6 months. Jayda Ace PA-C I spent a total of 35 minutes on the date of the service which included preparing to see the patient, [id number] patient care, completing clinical documentation, obtaining and/or reviewing separately obtained history, performing a medically appropriate examination, counseling and educating the patient/family/caregiver, and ordering medications, tests, or procedures. This document has been created with the use of voice recognition technology. It may contain inaccuracies: (e.g. misspellings, inaccurate syntax or word sense) that have escaped review. documented in this encounter [facility] 07-31-2024 Note HNO ID: [id number] Author: JOSEFA JACOBS PA-C Service: ? Author Type: Physician Set Up [employer] Type: Progress Notes Filed: 07/31/2024 13:57 Note Text: [facility] ESTABLISHED PATIENT CLINIC NOTE Some elements copied from his previous note, which have been updated where appropriate, and all reflect current medical decision making from date of this visit. NAME: Lyric Padron CHIEF COMPLAINT: BPH HISTORY OF PRESENT ILLNESS: Lyric Padron is a 69 year old male established patient following up for BPH with urine retention s/p TURP 2020 The patient reports no new concerns and feels well PVR - 186 ml LUTS: DYSURIA: no URGENCY: No FREQUENCY:5 per day NOCTURIA: 1 per night STRAINING TO VOID: No EMPTIES COMPLETELY: Yes UTI: No GROSS HEMATURIA: no UA DIPSTICK POSITIVE ONLY: no Other symptoms: LABS: Hematocrit (%) Date Value 07/04/2024 45.7 09/19/2023 45.3 08/12/2023 41.5 08/11/2023 41.7 07/14/2021 49.2 05/30/2014 45.2 PSA (ng/mL) Date Value 07/27/2024 1.31 PSA Screening (ng/mL) Date Value 03/01/2023 1.07 05/27/2014 1.27 04/11/2012 1.38 No results found for: TESTOST PSA (ng/mL) Date Value 07/27/2024 1.31 PSA Screening (ng/mL) Date Value 03/01/2023 1.07 05/27/2014 1.27 04/11/2012 1.38 Creatinine Date Value Ref Range Status 07/04/2024 0.78 0.73 - 1.22 mg/dL Final 09/19/2023 0.77 0.73 - 1.22 mg/dL Final 08/12/2023 0.84 0.73 - 1.22 mg/dL Final 08/11/2023 0.88 0.73 - 1.22 mg/dL Final MEDICATIONS: pravastatin (PRAVACHOL) 40 mg tablet Take 1 tablet by mouth once daily. memantine (NAMENDA) 5 mg tablet Take 1 tablet by mouth two times a day. meloxicam (MOBIC) 15 mg tablet Take 1 tablet by mouth once daily. With food. minocycline (MINOCIN, DYNACIN) 50 mg capsule Take 1 capsule by mouth twice daily. acetaminophen (TYLENOL) 325 mg tablet Take 2 tablets by mouth every 6 hours as needed for Pain. terazosin (HYTRIN) 5 mg capsule Take 1 capsule by mouth daily at bedtime. ibuprofen (MOTRIN) 400 mg tablet Take by mouth. (Patient not taking: Reported on 07/31/2024) PAST MEDICAL HISTORY: PAST MEDICAL HISTORY Diagnosis Date Arthritis BPH with obstruction/lower urinary tract symptoms Renal lesion 07/26/2023 Rosacea Subarachnoid hemorrhage (HCC) 08/11/2023 REVIEW OF SYSTEMS: GENERAL: No fever, chills, weight loss, or fatigue. All other systems reviewed and are negative PHYSICAL EXAMINATION: Blood pressure 110/78, pulse 92, temperature 36.4 ?C (97.6 ?F), temperature source Temporal, weight 68.9 kg (152 lb), SpO2 99%. GENERAL: WNL nutrition, no deformities, healthy appearing PROBLEM LIST REVIEW: Yes LABS: Results for orders placed or performed in visit on 07/27/24 PSA/PROSTSPECAG DIAG Result Value Ref Range PSA 1.31 <2.60 ng/mL PROCEDURES: PVR: 186 ml IMAGING: IMPRESSION/PLAN: 68 year old male with 1. BPH with obstruction/lower urinary tract symptoms - ICD9: 600.01, 599.69, ICD10: N40.1, N13.8 > Renal Scan was 186 ml > Refilled Hytrin > 1 year Appt w/ MANJIT Sullivan, CRAIG, PADnayC with PSA prior MANJIT Montgomery, CRAIG, PA-C [facility] 07-31-2024 History of Present illness Narrative Images from the original note were not included. [facility] ESTABLISHED PATIENT CLINIC NOTE Some elements copied from his previous note, which have been updated where appropriate, and all reflect current medical decision making from date of this visit. NAME: Lyric Padron CHIEF COMPLAINT: BPH HISTORY OF PRESENT ILLNESS: Lyric Padron is a 69 year old male\ established patient following up for BPH with urine retention s/p TURP 2020 The patient reports no new concerns and feels well PVR - 186 ml LUTS: DYSURIA: no URGENCY: No FREQUENCY:5 per day NOCTURIA: 1 per night STRAINING TO VOID: No EMPTIES COMPLETELY: Yes UTI: No GROSS HEMATURIA: no UA DIPSTICK POSITIVE ONLY: no Other symptoms: LABS: Hematocrit (%) Date Value 07/04/2024 45.7 09/19/2023 45.3 08/12/2023 41.5 08/11/2023 41.7 07/14/2021 49.2 05/30/2014 45.2 PSA (ng/mL) Date Value 07/27/2024 1.31 PSA Screening (ng/mL) Date Value 03/01/2023 1.07 05/27/2014 1.27 04/11/2012 1.38 No results found for: TESTOST PSA (ng/mL) Date Value 07/27/2024 1.31 PSA Screening (ng/mL) Date Value 03/01/2023 1.07 05/27/2014 1.27 04/11/2012 1.38 Creatinine Date Value Ref Range Status 07/04/2024 0.78 0.73 - 1.22 mg/dL Final 09/19/2023 0.77 0.73 - 1.22 mg/dL Final 08/12/2023 0.84 0.73 - 1.22 mg/dL Final 08/11/2023 0.88 0.73 - 1.22 mg/dL Final MEDICATIONS: pravastatin (PRAVACHOL) 40 mg tablet Take 1 tablet by mouth once daily. memantine (NAMENDA) 5 mg tablet Take 1 tablet by mouth two times a day. meloxicam (MOBIC) 15 mg tablet Take 1 tablet by mouth once daily. With food. minocycline (MINOCIN, DYNACIN) 50 mg capsule Take 1 capsule by mouth twice daily. acetaminophen (TYLENOL) 325 mg tablet Take 2 tablets by mouth every 6 hours as needed for Pain. terazosin (HYTRIN) 5 mg capsule Take 1 capsule by mouth daily at bedtime. ibuprofen (MOTRIN) 400 mg tablet Take by mouth. (Patient not taking: Reported on 07/31/2024) PAST MEDICAL HISTORY: PAST MEDICAL HISTORY Diagnosis Date Arthritis BPH with obstruction/lower urinary tract symptoms Renal lesion 07/26/2023 Rosacea Subarachnoid hemorrhage (HCC) 08/11/2023 REVIEW OF SYSTEMS: GENERAL: No fever, chills, weight loss, or fatigue. All other systems reviewed and are negative PHYSICAL EXAMINATION: Blood pressure 110/78, pulse 92, temperature 36.4 C (97.6 F), temperature source Temporal, weight 68.9 kg (152 lb), SpO2 99%. GENERAL: WNL nutrition, no deformities, healthy appearing PROBLEM LIST REVIEW: Yes LABS: Results for orders placed or performed in visit on 07/27/24 PSA/PROSTSPECAG DIAG Result Value Ref Range PSA 1.31 <2.60 ng/mL PROCEDURES: PVR: 186 ml IMAGING: IMPRESSION/PLAN: 68 year old male with 1. BPH with obstruction/lower urinary tract symptoms - ICD9: 600.01, 599.69, ICD10: N40.1, N13.8 > Renal Scan was 186 ml > Refilled Hytrin > 1 year Appt w/ BMANJIT Reyes MT, PA-C with PSA prior MANJIT Montgomery MT, PA-C Verified name and date of . CC Post Void Residual HPI: Lyric Padron is a 69 year old male. The patient is here now for an appointment with MANJIT Montgomery MT, PA-COV. Procedure: Explained procedure to patient and verbalizes understanding. Performed a PVR. Patient went to bathroom at 1100 and is unable to urinate at this time. . Results of scan: >186 mL The patient tolerated the procedure well. Plan: Appointment with Josefa. documented in this encounter [facility] 07-31-2024 Note HNO ID: [id number] Author: RUTH KHALIL LPN Service: ? Author Type: LICENSED NURSE Type: Progress Notes Filed: 07/31/2024 13:57 Note Text: Verified name and date of . CC Post Void Residual HPI: Lyric Padron is a 69 year old male. The patient is here now for an appointment with MANJIT Montgomery [place]. Procedure: Explained procedure to patient and verbalizes understanding. Performed a PVR. Patient went to bathroom at 1100 and is unable to urinate at this time. . Results of scan: >186 mL The patient tolerated the procedure well. Plan: Appointment with Josefa. [facility] 07-18-2024 Telephone encounter Note Scheduled 07/27/2024. [facility] 07-18-2024 Miscellaneous Notes Scheduled 07/27/2024. documented in this encounter [facility] 07-13-2024 Telephone encounter Note Called patients to see if he ever presented to the ED for evaluation. Noted they have not. Noted continued weakness, and loss of bladder. Discussed again that we recommended he present to the ED for evaluation. She noted she would speak with him. Brandin Kebede RN [facility] 07-13-2024 Miscellaneous Notes Called patients to see if he ever presented to the ED for evaluation. Noted they have not. Noted continued weakness, and loss of bladder. Discussed again that we recommended he present to the ED for evaluation. She noted she would speak with him. Brandin Kebede RN documented in this encounter [facility] 07-10-2024 Telephone encounter Note Called patient in regards to mychart message. I recommended the patient present to [facility] ED for further evaluation. She expressed understanding and noted she would speak with the patient in regards. Encouraged her to call with further questions or concerns. Brandin Kebede RN [facility] 07-10-2024 Miscellaneous Notes Called patient in regards to mychart message. I recommended the patient present to [facility] ED for further evaluation. She expressed understanding and noted she would speak with the patient in regards. Encouraged her to call with further questions or concerns. Brandin Kebede RN documented in this encounter [facility] 07-02-2024 Note HNO ID: [id number] Author: GEOFFREY ADAMS MD Service: ? Author Type: Physician Type: Progress Notes Filed: 07/02/2024 11:41 Note Text: Patient presents with: 6 Month Exam HPI: Patient presents today for office visit for follow up. HLD: Continues on Pravastatin 40 mg daily. No myalgias. No chest pain or shortness of breath. Following with Neurology. Continues on Memantine 5 mg daily. Memory slightly worse. Not driving. Frequent falls. Ambulates with cane. Unsteady. Has issues standing up from the toilet which caused his last fall. Has equipment in place to use. No injuries. [facility]. Reinforces importance of doing so to prevent falls. Sees Urology. Continues on Terazosin 5 mg daily. No urinary concerns. MEDICATIONS: Current Outpatient Medications Medication Sig pravastatin (PRAVACHOL) 40 mg tablet Take 1 tablet by mouth once daily. memantine (NAMENDA) 5 mg tablet Take 1 tablet by mouth two times a day. ibuprofen (MOTRIN) 400 mg tablet Take by mouth. terazosin (HYTRIN) 5 mg capsule Take 1 capsule by mouth daily at bedtime. meloxicam (MOBIC) 15 mg tablet Take 1 tablet by mouth once daily. With food. minocycline (MINOCIN, DYNACIN) 50 mg capsule Take 1 capsule by mouth twice daily. acetaminophen (TYLENOL) 325 mg tablet Take 2 tablets by mouth every 6 hours as needed for Pain. No current facility-administered medications for this visit. ALLERGIES: ALLERGIES No Known Allergies PAST MEDICAL HISTORY Diagnosis Date Arthritis BPH with obstruction/lower urinary tract symptoms Rosacea Subarachnoid hemorrhage (HCC) 08/11/2023 PAST SURGICAL HISTORY Procedure Laterality Date PAST SURGICAL HISTORY OF flexible cystoscopy PAST SURGICAL HISTORY OF 1959 tonsillectomy PAST SURGICAL HISTORY OF 2018 left eye surgery TRANSURETHRAL ELEC-SURG PROSTATECTOM N/A 08/18/2021 TRANSURETHRAL ELEC-SURG PROSTATECTOM 2019 FAMILY HISTORY Problem Relation Age of Onset Arthritis Mother Cancer Mother melanoma Heart Mother Viral myocarditis. GI Father ulcers Social History Tobacco Use Smoking status: Every Day Current packs/day: 0.50 Average packs/day: 0.5 packs/day for 20.0 years (10.0 ttl pk-yrs) Types: Cigarettes Smokeless tobacco: Former Vaping Use Vaping status: Never Used Substance Use Topics Alcohol use: Not Currently Drug use: Never Discussed tobacco cessation, including risks of continued use. Offered assistance to help quit if patient desires. Reviewed current medications, allergies, past medical history, surgical history, family history and social history today. REVIEW OF SYSTEMS No bowel issues. All other reviewed and negative other than HPI. HEALTH MAINTENANCE: Reviewed health maintenance issues today and recommended the following in detail. Depression Screening Never done Anxiety Screening Never done Shingrix Vaccine(1 of 2) Never done Covid-19 Vaccine( season) Never done Influenza Vaccine(1) due on 06/17/2024 VITALS: BP 114/74 Pulse 84 Ht 165.1 cm (5' 5 ) Wt 68.3 kg (150 lb 9.2 oz) BMI 25.06 kg/m? Last 4 Encounter Wt Readings: Date: Wt: 04/24/2024 67.1 kg (148 lb) 12/30/2023 68.9 kg (152 lb) 12/13/2023 68.3 kg (150 lb 9.6 oz) 11/21/2023 69.2 kg (152 lb 8.9 oz) PHYSICAL EXAMINATION: General appearance: Well appearing, alert, in no acute distress, well-hydrated, well nourished. Skin: Skin color, texture, turgor normal, no suspicious rashes or lesions Head: Normocephalic, no masses, lesions, tenderness or abnormalities Eyes: Anicteric sclera. Pupils are equally round and reactive to light. Extraocular movements are intact. Lungs: Lungs clear to auscultation. No wheezing, rhonchi, rales Heart: RRR without murmur, gallop, or rubs. No ectopy Abdomen: Normal abdominal exam, Abdomen soft, non-tender. Bowel sounds normal. No masses, organomegaly Extremities: No deformities, edema, skin discoloration, clubbing or cyanosis. Good capillary refill. Musculoskeletal: No joint swelling, deformity, or tenderness Peripheral pulses: Normal ASSESSMENT/PLAN: 1. Personal history of traumatic brain injury - ICD9: V15.52, ICD10: Z87.820 (primary diagnosis) - stable. Encouraged to resume his exercises. 2. Ataxia, unspecified - ICD9: 781.3, ICD10: R27.0 - continue to use cane. Call if worsens. 3. Cervical myelopathy (HCC) - ICD9: 721.1, ICD10: G95.9 - as above. Resume therapy. 4. History of subarachnoid hemorrhage - ICD9: V12.59, ICD10: Z86.79 - stable. 5. History of subdural hematoma - ICD9: V12.59, ICD10: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 dizziness. No new concerns today, no changes in memory, and patient both note some mild improvement. Patient is not very physically active and does not do any brain exercises, primarily watches TV at home. Does not drink much water. Discussed conservative therapy along with continuing Namenda 5 mg twice daily. Patient and amenable. Discussed neuropsychological testing and further workup patient deferring at this time, would like to continue with conservative therapy and reassess in 3 to 4 months. Encouraged follow-up with neurosurgery as well. Some concern regarding driving, while visual-spatial was 3 before, there is some deficit when compared to previous and total MoCA. Did discuss occupational evaluation for driving and will place this order. Until then, encourage patient to not drive alone, patient and family agree and understand. Patient agreeable to treatment plan of care at this time, questions were answered. Patient to follow-up in 3 to 4 months or sooner should any symptoms change or worsen. Jayda Ace PA-C CHIEF COMPLAINT: follow up HISTORY OF PRESENT ILLNESS: Lyric Padron is a 69 year old male, There were no vitals taken for this visit. with a PMH significant for Head injury 2007, MCI, DDD . Last seen on 12/13/23 for memory loss, frequent falls. Following with neurosurgery for frequent falls and spinal stenosis, deferring surgery. Exercises regularly. Driving locally, referred to OT. MoCA was , encouraged conservative. Deferred neuropsych testing, namenda 5mg bid. [employer] message on 04/23/24 When we saw you last you asked about Lyric's driving skills. You had suggested he take a driving test. He decided not to do this. I rode with him after our last appointment and he did not do to bad. He hugs the right hand side of the road. I rode with him again last week. He hugs the right side even more than before which is ok if there is a berm. Some of the roads he drives on do not have berms. I hate to say this but at this time I do not think he should be driving. I do not believe that he would be able to react to anything sudden in time to prevent an accident. I prefer if you do not mention that I sent you this message. Would it be possible for you to have the BMV revoke his license? Patient presents with for follow up appointment. Patient states no significant change since previous appointment. However notes maybe some slight worsening in memory since last appointment. She is very concerned about his driving, but does not want to discuss this during the appointment. Patient does report some mild weight loss but states he still eating regularly. Is not very active throughout the day, primarily watches the news. Does go to the gym a few times a week to exercise but otherwise is relatively sedentary. Does not drink much water, estimates drinking about 3 to 4 glasses a day. Is still driving patient is not concerned about this, no recent accidents or tickets. Doing well on Namenda 5 mg twice daily without any side effects. Patient did have 1 fall, states he tripped on a rug in his house with no major injuries, no head injuries. Does have a few instances of unsteadiness, denies any room spinning dizziness but states sometimes he loses his balance. Deferred cervical surgery to correct stenosis. REVIEW OF SYSTEMS GENERAL:No weight loss, malaise or fevers. HEENT:Negative for frequent or significant headaches, No changes in hearing or vision, no nose bleeds or other nasal problems NECK:Negative for lumps, goiter, pain and significant neck swelling RESPIRATORY: Negative for cough, wheezing or shortness of breath. CARDIOVASCULAR: Negative for chest pain, leg swelling or palpitations. GASTROINTESTINAL: Negative for abdominal discomfort, blood in stools or black stools or change in bowel habits GENIT (more content not included)... [facility] 04-24-2024 History of Present illness Narrative ESTABLISHED PATIENT VISIT Last visit: 12/13/23 ASSESSMENT/PLAN: 1. Frequent falls - ICD9: V15.88, ICD10: R29.6 (primary diagnosis) 2. Subdural hematoma (HCC) - ICD9: 432.1, ICD10: S06.5XAA 3. Dementia without behavioral disturbance (HCC) - ICD9: 294.20, ICD10: F03.90 4. Balance problem - ICD9: 781.99, ICD10: R26.89 5. Cervical stenosis of spinal canal - ICD9: 723.0, ICD10: M48.02 6. Memory loss - ICD9: 780.93, ICD10: R41.3 Patient with slight improvement since last appointment, was previously and is today. Following with neurosurgery and had complete resolution of his subdural hematoma, but concern for significant cervical stenosis likely contributing to falls. Workup previously including EMG was negative for other etiology. Patient having 4 falls since last appointment with no significant injury. Typically falls occur when he bends over and falls forward. No lightheadedness or dizziness. No new concerns today, no changes in memory, and patient both note some mild improvement. Patient is not very physically active and does not do any brain exercises, primarily watches TV at home. Does not drink much water. Discussed conservative therapy along with continuing Namenda 5 mg twice daily. Patient and amenable. Discussed neuropsychological testing and further workup patient deferring at this time, would like to continue with conservative therapy and reassess in 3 to 4 months. Encouraged follow-up with neurosurgery as well. Some concern regarding driving, while visual-spatial was 3 before, there is some deficit when compared to previous and total MoCA. Did discuss occupational evaluation for driving and will place this order. Until then, encourage patient to not drive alone, patient and family agree and understand. Patient agreeable to treatment plan of care at this time, questions were answered. Patient to follow-up in 3 to 4 months or sooner should any symptoms change or worsen. Jayda Ace PA-C CHIEF COMPLAINT: follow up HISTORY OF PRESENT ILLNESS: Lyric Padron is a 69 year old male, There were no vitals taken for this visit. with a PMH significant for Head injury 2008, MCI, DDD . Last seen on 12/13/23 for memory loss, frequent falls. Following with neurosurgery for frequent falls and spinal stenosis, deferring surgery. Exercises regularly. Driving locally, referred to OT. MoCA was , encouraged conservative. Deferred neuropsych testing, namenda 5mg bid. [employer] message on 04/23/24 When we saw you last you asked about Lyric's driving skills. You had suggested he take a driving test. He decided not to do this. I rode with him after our last appointment and he did not do to bad. He hugs the right hand side of the road. I rode with him again last week. He hugs the right side even more than before which is ok if there is a berm. Some of the roads he drives on do not have berms. I hate to say this but at this time I do not think he should be driving. I do not believe that he would be able to react to anything sudden in time to prevent an accident. I prefer if you do not mention that I sent you this message. Would it be possible for you to have the [employer] revoke his license? Patient presents with for follow up appointment. Patient states no significant change since previous appointment. However notes maybe some slight worsening in memory since last appointment. She is very concerned about his driving, but does not want to discuss this during the appointment. Patient does report some mild weight loss but states he still eating regularly. Is not very active throughout the day, primarily watches the news. Does go to the gym a few times a week to exercise but otherwise is relatively sedentary. Does not drink much water, estimates drinking about 3 to 4 glasses a day. Is still driving patient is not concerned about this, no recent accidents or tickets. Doing well on Namenda 5 mg twice daily without any side effects. Patient did have 1 fall, states he tripped on a rug in his house with no major injuries, no head injuries. Does have a few instances of unsteadiness, denies any room spinning dizziness but states sometimes he loses his balance. Deferred cervical surgery to correct stenosis. REVIEW OF SYSTEMS GENERAL:No weight loss, malaise or fevers. HEENT:Negative for frequent or significant headaches, No changes in hearing or vision, no nose bleeds or other nasal problems NECK:Negative for lumps, goiter, pain and significant neck swelling RESPIRATORY: Negative for cough, wheezing or shortness of breath. CARDIOVASCULAR: Negative for chest pain, leg swelling or palpitations. GASTROINTESTINAL: Negative for abdominal discomfort, blood in stools or black stools or change in bowel habits GENITOURINARY: No history of dysuria, frequency or incontinence MUSCULOSKELETAL: Negative for joint pain or swelling, back pain or muscle pain. NEUROLOGIC:Negative for focal numbness or weakness, headaches and dizziness or syncope, vision changes, speech/languag changes - EXCEPT that as per HPI above. SKIN:Negative for lesions, rash, and itching. PSYCHIATRIC: Negative for sleep disturbance, mood disorder and recent psychosocial stressors. HEMATOLOGIC/LYMPHATIC/IMMUNOLOGIC: Negative for prolonged bleeding, bruising easily or swollen nodes. ENDOCRINE: Negative for cold or heat intolerance, polyuria, polydipsia and goiter. The remainder of the ROS was reviewed and is negative. LAB/IMAGING: Those performed since patient's last visit have been reviewed. CT brain 11/21/23 IMPRESSION: Previously noted acute on chronic right cerebral convexity subdural hematoma has resolved. No evidence of acute hemorrhagic component in the interval Procedure noted midline shift has resolved. MEDICATIONS: ibuprofen (MOTRIN) 400 mg tablet Take by mouth. terazosin (HYTRIN) 5 mg capsule Take 1 capsule by mouth daily at bedtime. meloxicam (MOBIC) 15 mg tablet Take 1 tablet by mouth once daily. With food. minocycline (MINOCIN, DYNACIN) 50 mg capsule Take 1 capsule by mouth twice daily. pravastatin (PRAVACHOL) 40 mg tablet Take 1 tablet by mouth once daily. acetaminophen (TYLENOL) 325 mg tablet Take 2 tablets by mouth every 6 hours as needed for Pain. memantine (NAMENDA) 5 mg tablet Take 1 tablet by mouth two times a day. HISTORIES PAST MEDICAL HISTORY Diagnosis Date Arthritis BPH with obstruction/lower urinary tract symptoms Rosacea Subarachnoid hemorrhage (HCC) 08/11/2023 FAMILY HISTORY Problem Relation Age of Onset Arthritis Mother Cancer Mother melanoma Heart Mother Viral myocarditis. GI Father ulcers SOCIAL HISTORY Social History Tobacco Use Smoking status: Every Day Packs/day: 0.50 Years: 20.00 Additional pack years: 0.00 Total pack years: 10.00 Types: Cigarettes Smokeless tobacco: Former Vaping Use Vaping Use: Never used Substance Use Topics Alcohol use: Not Currently Drug use: Never PHYSICAL EXAMINATION BP 122/81 Pulse 89 Resp 18 Wt 67.1 kg (148 lb) SpO2 99% BMI 24.63 kg/m Modified MoCA: 10/11 Visuospatial: 10/21 Namin/3 Attention: 2 Abstraction: 02 Delayed recall: 0 Orientation: 03/22 GENERAL EXAM: General appearance: NAD, pleasant. HEENT: NC/AT, nasal congestion absent, no oral lesions, membranes moist. NECK: No masses, supple. Lungs: Breathing comfortably Extr: Moves all extremities without difficulty Skin: Cool to touch. No rash. Psych: Flat affect NEUROLOGICAL EXAM: General: Awake, alert, oriented x3 (person,place,time), speech fluent, no dysarthria; comprehension, naming, repetition intact. See MoCA above CN: PERRL, EOMI and without nystagmus, VFF to confrontation, facial sensation and strength are normal and symmetric, hearing is intact to finger rub bilaterally, palate and tongue movements are intact and symmetric. SCM and trapezius strength normal. Motor: Normal tone, bulk Reflexes: Not tested Coordination: No tremors. Sensation: No evidence of neglect. Gait: Slowed and shuffled gait, ambulates with cane Assessment and Plan: ASSESSMENT/PLAN: 1. Subdural hematoma (HCC) - ICD9: 432.1, ICD10: S06.5XAA (primary diagnosis) Resolved, follow-up with neurosurgery. 2. Dementia without behavioral disturbance (HCC) - ICD9: 294.20, ICD10: F03.90 Patient presents with his today for follow-up for dementia. Doing well on Namenda 5 mg twice daily, did have some decrease in MoCA today with 10/10, previous was . No significant subjective change based off of patient and family report. However, patient's is very concerned about his driving, patient was told to have occupational therapy evaluation at last appointment but deferred this and has been sober and driving on his own. Patient's messaged on [employer] and expressed a deep concern for his driving ability she does not feel he is safe. Discussed at length today with patient and family my concerns for his driving and that he should not resume driving again until he has an occupational therapy evaluation. Patient agrees. Discussed possibly escalating to the BMV should his family's concerns be present. Discussed increasing Namenda but patient deferring at this time. Previously deferring any further evaluation with neuropsychological testing. Encouraged conservative therapy including physical activity as patient is very sedentary, increasing water intake. Patient did lose a few pounds, but still healthy BMI, will continue to monitor. No new symptoms that would warrant additional workup at this time. 3. Frequent falls - ICD9: V15.88, ICD10: R29.6 4. Balance problem - ICD9: 781.99, ICD10: R26.89 5. Cervical stenosis of spinal canal - ICD9: 723.0, ICD10: M48.02 Patient did have 1 fall since last appointment, reporting some occasional unsteadiness on his feet. Patient with shuffling gait on exam. Deferred cervical stenosis surgery through neurosurgery, encouraged follow-up for continued monitoring. Discussed signs and symptoms that would warrant emergent evaluation emergency department, patient and family agree and understand. Patient and family agreeable to treatment plan of care at this time, questions were answered. Patient to follow-up in 3 months or sooner should any symptoms change or worsen. Jayda Ace PA-C I spent a total of 45 minutes on the date of the service which included preparing to see the patient, [id number] patient care, completing clinical documentation, obtaining and/or reviewing separately obtained history, performing a medically appropriate examination, counseling and educating the patient/family/caregiver, and ordering medications, tests, or procedures. This document has been created with the use of voice recognition technology. It may contain inaccuracies: (e.g. misspellings, inaccurate syntax or word sense) that have escaped review. 04/19/2024 PROMIS Global Health Physical Health Summary Physical health: Fair Everyday physical activity, ability: A little Fatigue: Moderate Pain level: 0 No Pain General health: Fair Social activities/roles, ability: Poor Physical Health T-Score 39.8 (Fair) Physical Health Percentile 15 PROMIS Global Health Mental Health Summary Quality of life: Fair Mental health (mood,thinking): Fair Social satisfaction: Fair Emotional problems (anxious,depressed): Sometimes Mental Health T-Score 36.3 (Fair) Mental Health Percentile 9 PHQ-9 Score: 7(Mild Depression) PHQ-9 Self-Harm: Not at all JCARLOS-7 Score: 1(Minimal Anxiety) NEURO-QOL Cognitive Function T-Score 31(Moderate Dysfunction) Neuro-Qol Cognitive Function Percentile 3 PROMIS Physical Function T-Score 26(Severe Dysfunction) PROMIS Physical Function Percentile 1 Percentiles provide an indication of how a patient's score ranks in relation to the [place] general population. > 31st percentile is within normal limits or better *< 31st percentile is at least SD worse than population, which may be clinically relevant < 16th percentile is at least 1 SD worse than population and warrants attention documented in this encounter [facility] 01-13-2024 Note HNO ID: [id number] Author: MARANDA DAVIES RN Service: ? Author Type: Registered Nurse Type: Progress Notes Filed: 01/13/2024 15:20 Note Text: ACM HINA RN Patient identified by name and date of . Reason for review or outreach: Chart Review [facility] Priority Emergency Department Utilization Utilization in past 6 months: # Occurrences Date Last Occurrence Hospital Admission Hospital Observation ED SNF / Acute Rehab / LTAC ED DIAGNOSES/REASON(S) FOR ED USE: OTHER FINDINGS/SUMMARY: Pt attributed to [facility] ED No further action required Patient Attributed To: MONTYE Payer: Haile ROBLES Action Taken: No action needed Contact made with patient: No, Chart review only. Signature: Maranda Davies RN [facility] 01-13-2024 Note Patient Outreach ([facility]) LYRIC PADRON ([id number]) 1955 M Date Time Provider Department 01/13/24 MARANDA DAVIESSherine During your visit today, we recorded the following information about you: Maranda Davies RN 01/13/2024 3:20 PM Signed ACM HINA RN Patient identified by name and date of . Reason for review or outreach: Chart Review [facility] Emergency Department Utilization Utilization in past 6 months: # Occurrences Date Last Occurrence Hospital Admission Hospital Observation ED SNF / Acute Rehab / LTAC ED DIAGNOSES/REASON(S) FOR ED USE: OTHER FINDINGS/SUMMARY: Pt attributed to [facility] No further action required Patient Attributed To: RIOS Payer: Haile ROBLES Action Taken: No action needed Contact made with patient: No, Chart review only. Signature: Maranda Davies RN Allergies As of Date: 01/13/2024 (No Known Allergies) Date Reviewed: 12/30/2023 Reviewed by: Dixie Browning MA - Fully Assessed Reason for Visit: ACM HINA RN [[id number]] Cmt: EDU per request of payor Prescriptions as of 01/13/2024 - memantine (NAMENDA) 5 mg tablet Take 1 tablet by mouth two times a day. - ibuprofen (MOTRIN) 400 mg tablet Take by mouth. - terazosin (HYTRIN) 5 mg capsule Take 1 capsule by mouth daily at bedtime. - meloxicam (MOBIC) 15 mg tablet Take 1 tablet by mouth once daily. With food. - minocycline (MINOCIN, DYNACIN) 50 mg capsule Take 1 capsule by mouth twice daily. - pravastatin (PRAVACHOL) 40 mg tablet Take 1 tablet by mouth once daily. - acetaminophen (TYLENOL) 325 mg tablet Take 2 tablets by mouth every 6 hours as needed for Pain. Problem List As Of Date 01/13/2024 Noted Resolved Benign non-nodular prostatic hyperplasia with l*01/01/2008 BLADDER NECK OBSTRUCTION [N32.0] 01/01/2008 Rosacea, Acne [L71.9] 02/09/2010 Pure hypercholesterolemia [E78.00] 02/26/2013 S/P TURP [Z90.79] 10/20/2021 Mild cognitive impairment [G31.84] 06/24/2022 Ataxia, unspecified [R27.0] 06/15/2022 Closed fracture of distal end of fibula [S82.83*12/22/2022 12/22/2022 Closed head injury [S09.90XA] 12/22/2022 12/30/2023 Personal history of traumatic brain injury [Z87*06/15/2022 Subarachnoid hemorrhage (HCC) [I60.9] 08/11/2023 Subdural hematoma (HCC) [S06.5XAA] 09/19/2023 12/30/2023 History of subdural hematoma [Z86.79] 12/30/2023 History of subarachnoid hemorrhage [Z86.79] 12/30/2023 Cervical myelopathy (HCC) [G95.9] 12/30/2023 Encounter Status:Closed by MARANDA DAVIES on 01/13/24 [facility] 12-30-2023 History of Present illness Narrative Patient presents with: 6 Month Exam HPI: Patient presents today for office visit for follow up. HLD: Current medication: Pravastatin 40 mg daily No myalgias Sees Urology. Continues on Terazosin 5 mg qhs. No urinary issues. NEURO: Current medication: Memantine 5 mg BID Follows with Neuro. Last OV 12/13/23 Feels memory is about the same. Sees neurology as well. Balance is an issue. Has had 4 falls since July. Ambulates with cane. Unsteady. He has elected to avoid surgery. They did keep him on meloxicam. No chest pain or shortness of breath. No more falls. Using his cane. Has occasional dysphagia. No gerd. Recommended esophagogram and speech therapy eval. Dicussed risks of aspiration. Refuses to do it. Has a bunion. No trauma. No pain. See Dr Srinivasan's last note, copied and pasted: -right acute on chronic subdural hematoma (resolved) -cervical myelopathy -nicotine dependence -recurrent falls -rosacea -historic traumatic subarachnoid hemorrhage The CT head that Lyric had today showed almost complete resolution of his right-sided acute on chronic subdural hematoma. This is outstanding news. I did caution Lyric and his that these can recur and I discussed the types of symptoms that they should be on the look out for that might prompt consideration of repeat imaging. This point our attention shifts more to carry cervical myelopathy. My concern is that Lyric has concerning overall health and is having recurrent falls. Lyric's level of interest in the surgeries not high. Lyric is also a committed smoker. I talked at length about the natural history of cervical myelopathy which largely repeated aspects of a prior discussion that we had. I did discuss the role of surgery as well as the typical postoperative course and the risks and benefits. Lyric seemed very disinterested in the procedure or any effort to cut down his smoking. They state a preference to consider surgical management and to contact me again in the future if this is something of interest to them. I think this is a very reasonable plan. MEDICATIONS: Current Outpatient Medications Medication Sig memantine (NAMENDA) 5 mg tablet Take 1 tablet by mouth two times a day. ibuprofen (MOTRIN) 400 mg tablet Take by mouth. terazosin (HYTRIN) 5 mg capsule Take 1 capsule by mouth daily at bedtime. meloxicam (MOBIC) 15 mg tablet Take 1 tablet by mouth once daily. With food. minocycline (MINOCIN, DYNACIN) 50 mg capsule Take 1 capsule by mouth twice daily. pravastatin (PRAVACHOL) 40 mg tablet Take 1 tablet by mouth once daily. acetaminophen (TYLENOL) 325 mg tablet Take 2 tablets by mouth every 6 hours as needed for Pain. No current facility-administered medications for this visit. ALLERGIES: ALLERGIES No Known Allergies PAST MEDICAL HISTORY Diagnosis Date Arthritis BPH with obstruction/lower urinary tract symptoms Rosacea Subarachnoid hemorrhage (HCC) 08/11/2023 PAST SURGICAL HISTORY Procedure Laterality Date PAST SURGICAL HISTORY OF flexible cystoscopy PAST SURGICAL HISTORY OF 9 tonsillectomy PAST SURGICAL HISTORY OF 2018 left eye surgery TRANSURETHRAL ELEC-SURG PROSTATECTOM N/A 08/18/2021 TRANSURETHRAL ELEC-SURG PROSTATECTOM 2019 FAMILY HISTORY Problem Relation Age of Onset Arthritis Mother Cancer Mother melanoma Heart Mother Viral myocarditis. GI Father ulcers Social History Tobacco Use Smoking status: Every Day Packs/day: 0.50 Years: 20.00 Additional pack years: 0.00 Total pack years: 10.00 Types: Cigarettes Smokeless tobacco: Former Vaping Use Vaping Use: Never used Substance Use Topics Alcohol use: Not Currently Drug use: Never Reviewed current medications, allergies, past medical history, surgical history, family history and social history today. REVIEW OF SYSTEMS All other reviewed and negative other than HPI. HEALTH MAINTENANCE: Reviewed health maintenance issues today and recommended the following in detail. RSV Vaccine(1 - 1-dose 60+ series) Never done Influenza Vaccine(1) due on 06/17/2023 Covid-19 Vaccine( - 2022-24 season) Never done Advance Directive Discussion due on 10/17/2023 Depression Assessment due on 10/17/2023 Colorectal Cancer Screening due on 03/02/2024 VITALS: BP 104/76 Pulse 101 Ht 165.1 cm (5' 5 ) Wt 68.9 kg (152 lb) SpO2 99% BMI 25.29 kg/m Last 4 Encounter Wt Readings: Date: Wt: 12/13/2023 68.3 kg (150 lb 9.6 oz) 11/21/2023 69.2 kg (152 lb 8.9 oz) 10/13/2023 69.9 kg (154 lb) 09/22/2023 69.9 kg (154 lb) PHYSICAL EXAMINATION: General appearance: Well appearing, alert, in no acute distress, well-hydrated, well nourished. Skin: Skin color, texture, turgor normal, no suspicious rashes or lesions Head: Normocephalic, no masses, lesions, tenderness or abnormalities Lungs: Lungs clear to auscultation. No wheezing, rhonchi, rales Heart: RRR without murmur, gallop, or rubs. No ectopy Abdomen: Normal abdominal exam, Abdomen soft, non-tender. Bowel sounds normal. No masses, organomegaly Extremities: No deformities, edema, skin discoloration, clubbing or cyanosis. Good capillary refill. Musculoskeletal: No joint swelling, deformity, or tenderness. Mild bunion in foot. ASSESSMENT/PLAN: 1. History of subdural hematoma - ICD9: V12.59, ICD10: Z86.79 (primary diagnosis) - stable. 2. History of subarachnoid hemorrhage - ICD9: V12.59, ICD10: Z86.79 - stable. 3. Personal history of traumatic brain injury - ICD9: V15.52, ICD10: Z87.820 - stable. 4. Subarachnoid hemorrhage (HCC) - ICD9: 430, ICD10: I60.9 - stable. 5. Ataxia, unspecified - ICD9: 781.3, ICD10: R27.0 - discussed that he use cane. 6. Pure hypercholesterolemia - ICD9: 272.0, ICD10: E78.00 - CBC + DIFF - LIPID PANEL BASIC 7. Mild cognitive impairment - ICD9: 331.83, ICD10: G31.84 - stable. 8. Benign non-nodular prostatic hyperplasia with lower urinary tract symptoms - ICD9: 600.91, ICD10: N40.1 - per urology. 9. Cervical myelopathy (HCC) - ICD9: 721.1, ICD10: G95.9 Stable. 10. Prediabetes - ICD9: 790.29, ICD10: R73.03 - COMP METABOLIC PANEL - HGB A1C 11. SAH (subarachnoid hemorrhage) (HCC) - ICD9: 430, ICD10: I60.9 12. Screening for colon cancer - ICD9: V76.51, ICD10: Z12.11 - FECAL OCCULT BLOOD TEST Geoffrey Adams MD documented in this encounter [facility] 12-30-2023 Note HNO ID: [id number] Author: GEOFFREY ADAMS MD Service: ? Author Type: Physician Type: Progress Notes Filed: 12/30/2023 15:30 Note Text: Patient presents with: 6 Month Exam HPI: Patient presents today for office visit for follow up. HLD: Current medication: Pravastatin 40 mg daily No myalgias Sees Urology. Continues on Terazosin 5 mg qhs. No urinary issues. NEURO: Current medication: Memantine 5 mg BID Follows with Neuro. Last OV 12/13/23 Feels memory is about the same. Sees neurology as well. Balance is an issue. Has had 4 falls since July. Ambulates with cane. Unsteady. He has elected to avoid surgery. They did keep him on meloxicam. No chest pain or shortness of breath. No more falls. Using his cane. Has occasional dysphagia. No gerd. Recommended esophagogram and speech therapy eval. Dicussed risks of aspiration. Refuses to do it. Has a bunion. No trauma. No pain. See Dr Srinivasan's last note, copied and pasted: -right acute on chronic subdural hematoma (resolved) -cervical myelopathy -nicotine dependence -recurrent falls -rosacea -historic traumatic subarachnoid hemorrhage The CT head that Lyric had today showed almost complete resolution of his right-sided acute on chronic subdural hematoma. This is outstanding news. I did caution Lyric and his that these can recur and I discussed the types of symptoms that they should be on the look out for that might prompt consideration of repeat imaging. This point our attention shifts more to carry cervical myelopathy. My concern is that Lyric has concerning overall health and is having recurrent falls. Lyric's level of interest in the surgeries not high. Lyric is also a committed smoker. I talked at length about the natural history of cervical myelopathy which largely repeated aspects of a prior discussion that we had. I did discuss the role of surgery as well as the typical postoperative course and the risks and benefits. Lyric seemed very disinterested in the procedure or any effort to cut down his smoking. They state a preference to consider surgical management and to contact me again in the future if this is something of interest to them. I think this is a very reasonable plan. MEDICATIONS: Current Outpatient Medications Medication Sig memantine (NAMENDA) 5 mg tablet Take 1 tablet by mouth two times a day. ibuprofen (MOTRIN) 400 mg tablet Take by mouth. terazosin (HYTRIN) 5 mg capsule Take 1 capsule by mouth daily at bedtime. meloxicam (MOBIC) 15 mg tablet Take 1 tablet by mouth once daily. With food. minocycline (MINOCIN, DYNACIN) 50 mg capsule Take 1 capsule by mouth twice daily. pravastatin (PRAVACHOL) 40 mg tablet Take 1 tablet by mouth once daily. acetaminophen (TYLENOL) 325 mg tablet Take 2 tablets by mouth every 6 hours as needed for Pain. No current facility-administered medications for this visit. ALLERGIES: ALLERGIES No Known Allergies PAST MEDICAL HISTORY Diagnosis Date Arthritis BPH with obstruction/lower urinary tract symptoms Rosacea Subarachnoid hemorrhage (HCC) 08/11/2023 PAST SURGICAL HISTORY Procedure Laterality Date PAST SURGICAL HISTORY OF flexible cystoscopy PAST SURGICAL HISTORY OF 1959 tonsillectomy PAST SURGICAL HISTORY OF 2017 left eye surgery TRANSURETHRAL ELEC-SURG PROSTATECTOM N/A 08/18/2021 TRANSURETHRAL ELEC-SURG PROSTATECTOM 2019 FAMILY HISTORY Problem Relation Age of Onset Arthritis Mother Cancer Mother melanoma Heart Mother Viral myocarditis. GI Father ulcers Social History Tobacco Use Smoking status: Every Day Packs/day: 0.50 Years: 20.00 Additional pack years: 0.00 Total pack years: 10.00 Types: Cigarettes Smokeless tobacco: Former Vaping Use Vaping Use: Never used Substance Use Topics Alcohol use: Not Currently Drug use: Never Reviewed current medications, allergies, past medical history, surgical history, family history and social history today. REVIEW OF SYSTEMS All other reviewed and negative other than HPI. HEALTH MAINTENANCE: Reviewed health maintenance issues today and recommended the following in detail. RSV Vaccine(1 - 1-dose 60+ series) Never done Influenza Vaccine(1) due on 06/17/2023 Covid-19 Vaccine(2022-24 season) Never done Advance Directive Discussion due on 10/17/2023 Depression Assessment due on 10/17/2023 Colorectal Cancer Screening due on 03/02/2024 VITALS: BP 104/76 Pulse 101 Ht 165.1 cm (5' 5 ) Wt 68.9 kg (152 lb) SpO2 99% BMI 25.29 kg/m? Last 4 Encounter Wt Readings: Date: Wt: 12/13/2023 68.3 kg (150 lb 9.6 oz) 11/21/2023 69.2 kg (152 lb 8.9 oz) 10/13/2023 69.9 kg (154 lb) 09/22/2023 69.9 kg (154 lb) PHYSICAL EXAMINATION: General appearance: Well appearing, alert, in no acute distress, well-hydrated, well nourished. Skin: Skin color, texture, turgor normal, no suspicious rashes or lesions Head: Normocephalic, no masses, (more content not included)... [facility] 12-13-2023 Instructions Jayda Ace PA-C - 12/13/2023 11:02 AM EST Continue with Namenda 5mg twice Increase water intake to 60 ounces a day, increase brain activities (reading, socializing, puzzles), increase physical activity Occupational therapy evaluation for driving Follow up in 3-4 months documented in this encounter [facility] 12-13-2023 Note HNO ID: [id number] Author: JAYDA ACE PA-C Service: ? Author Type: Physician [employer] Type: Progress Notes Filed: 12/13/2023 11:37 Note Text: ESTABLISHED PATIENT VISIT Last visit: 08/24/23 ASSESSMENT/PLAN: 1. History of traumatic brain injury - ICD9: V15.52, ICD10: Z87.820 (primary diagnosis) 2. Memory loss - ICD9: 780.93, ICD10: R41.3 3. Balance problem - ICD9: 781.99, ICD10: R26.89 4. SAH (subarachnoid hemorrhage) (HCC) - ICD9: 430, ICD10: I60.9 5. Frequent falls - ICD9: V15.88, ICD10: R29.6 Patient with repeat head injury when he fell down a flight of stairs sustaining a subarachnoid hemorrhage on 08-11-2023. Patient's concerned over worsening memory since that time. Prior to the fall, patient had had a few falls that were without any significant injury. States that he was doing well before. Denies any neurologic complaints including headaches, dizziness, weakness, vision changes after the fall or subarachnoid hemorrhage. Notes that he is doing well and recovering well. Has stopped physical therapy until cleared by neurosurgery, has an appointment later this month along with repeat imaging. Also has imaging scheduled for his MRI cervical spine due to his persistent weakness. No signs or symptoms of acute cord compression at this time, negative Eldon and symmetric reflexes bilaterally. Discussed red flag signs and symptoms that would warrant additional work-up in the emergency department and patient and are agreeable. Patient's was very concerned about patient's worsening memory after his fall, discussed that this is likely secondary to significant brain injury and memory loss and difficulty with concentration and memory is normal. MoCA today was 16/29 compared to previous which was 24. Continue to take Namenda 5 mg twice daily. Will not make any adjustments to medications at this time. Patient's concerned about dementia and wanting further testing, discussed that this may take time to recover due to his history of traumatic brain injury, patient's age and significance of injury. Patient and are agreeable and understand. Should patient's memory continue to be worse than previous, may consider further neuropsychological testing in the future. Discussed conservative therapies that may be beneficial including rest, optimizing sleep, hydration, etc. Patient and agreeable to treatment plan of care at this time, all questions were answered. Patient to follow-up in 3 months or sooner should any symptoms change or worsen. Jayda Ace PA-C CHIEF COMPLAINT: follow up HISTORY OF PRESENT ILLNESS: Lyric Padron is a 68 year old male, BMI 25.06 kg/m2 with a PMH significant for Head injury 2008, MCI, DDD. last seen for 08/24/23 for TBI, memory loss and balance issue. Previous MoCA before injury was and at last appointment was . New brain injury, following with neurosurgery. Last visit was 11/21/23, almost complete resolution of subdural hematoma. Concerned for cervical myelopathy contributing to falls. Underwent a right MMA embolization on 10/04/23. Referred to PT. Previous EMG was negative. Patient presents with his for follow-up appointment. Patient notes that he has noted improvement in his memory since last appointment, patient's agrees. No new symptoms or concerns. Has had 4 falls since last appointment, has follow-up with neurosurgery and they feel this is likely secondary to cervical stenosis. However, patient deferring surgery at this time. Sleep is stable, sleeping by 8 hours a night without any issues. Is not very physically active, but does go to [employer] 3 times a week. Typically watches TV throughout the day, not any brain exercises or socialization. Drinks about 3 cups of water and 2 cups of coffee a day. Appetite is so-so, denies hungry as he used to be. Still driving without any issues, typically only drives locally, but does drive by himself. No recent accidents or tickets. No leaving the stove on or faucet running, able to to bathe himself and dress himself without any issue. REVIEW OF SYSTEMS GENERAL:No weight loss, malaise or fevers. HEENT:Negative for frequent or significant headaches, No changes in hearing or vision, no nose bleeds or other nasal problems NECK:Negative for lumps, goiter, pain and significant neck swelling RESPIRATORY: Negative for cough, wheezing or shortness of breath. CARDIOVASCULAR: Negative for chest pain, leg swelling or palpitations. GASTROINTESTINAL: Negative for abdominal discomfort, blood in stools or black stools or change in bowel habits GENITOURINARY: No history of dysuria, frequency or incontinence MUSCULOSKELETAL: Negative for joint pain or swelling, back pain or muscle pain. NEUROLOGIC:Negative for focal numbness or weakness, headaches and dizziness or syncope, vision changes, speech/languag changes - EXCEPT that as per HPI above. SKIN: (more content not included)... [facility] 12-13-2023 History of Present illness Narrative ESTABLISHED PATIENT VISIT Last visit: 08/24/23 ASSESSMENT/PLAN: 1. History of traumatic brain injury - ICD9: V15.52, ICD10: Z87.820 (primary diagnosis) 2. Memory loss - ICD9: 780.93, ICD10: R41.3 3. Balance problem - ICD9: 781.99, ICD10: R26.89 4. SAH (subarachnoid hemorrhage) ([facility]) - ICD9: 430, ICD10: I60.9 5. Frequent falls - ICD9: V15.88, ICD10: R29.6 Patient with repeat head injury when he fell down a flight of stairs sustaining a subarachnoid hemorrhage on 08-11-2023. Patient's concerned over worsening memory since that time. Prior to the fall, patient had had a few falls that were without any significant injury. States that he was doing well before. Denies any neurologic complaints including headaches, dizziness, weakness, vision changes after the fall or subarachnoid hemorrhage. Notes that he is doing well and recovering well. Has stopped physical therapy until cleared by neurosurgery, has an appointment later this month along with repeat imaging. Also has imaging scheduled for his MRI cervical spine due to his persistent weakness. No signs or symptoms of acute cord compression at this time, negative Eldon and symmetric reflexes bilaterally. Discussed red flag signs and symptoms that would warrant additional work-up in the emergency department and patient and are agreeable. Patient's was very concerned about patient's worsening memory after his fall, discussed that this is likely secondary to significant brain injury and memory loss and difficulty with concentration and memory is normal. MoCA today was 16/29 compared to previous which was 24/29. Continue to take Namenda 5 mg twice daily. Will not make any adjustments to medications at this time. Patient's concerned about dementia and wanting further testing, discussed that this may take time to recover due to his history of traumatic brain injury, patient's age and significance of injury. Patient and are agreeable and understand. Should patient's memory continue to be worse than previous, may consider further neuropsychological testing in the future. Discussed conservative therapies that may be beneficial including rest, optimizing sleep, hydration, etc. Patient and agreeable to treatment plan of care at this time, all questions were answered. Patient to follow-up in 3 months or sooner should any symptoms change or worsen. Jayda Ace PA-C CHIEF COMPLAINT: follow up HISTORY OF PRESENT ILLNESS: Lyric Padron is a 68 year old male, BMI 25.06 kg/m2 with a PMH significant for Head injury 2008, MCI, DDD. last seen for 08/24/23 for TBI, memory loss and balance issue. Previous MoCA before injury was and at last appointment was . New brain injury, following with neurosurgery. Last visit was 11/21/23, almost complete resolution of subdural hematoma. Concerned for cervical myelopathy contributing to falls. Underwent a right MMA embolization on 10/04/23. Referred to PT. Previous EMG was negative. Patient presents with his for follow-up appointment. Patient notes that he has noted improvement in his memory since last appointment, patient's agrees. No new symptoms or concerns. Has had 4 falls since last appointment, has follow-up with neurosurgery and they feel this is likely secondary to cervical stenosis. However, patient deferring surgery at this time. Sleep is stable, sleeping by 8 hours a night without any issues. Is not very physically active, but does go to [employer] 3 times a week. Typically watches TV throughout the day, not any brain exercises or socialization. Drinks about 3 cups of water and 2 cups of coffee a day. Appetite is so-so, denies hungry as he used to be. Still driving without any issues, typically only drives locally, but does drive by himself. No recent accidents or tickets. No leaving the stove on or faucet running, able to to bathe himself and dress himself without any issue. REVIEW OF SYSTEMS GENERAL:No weight loss, malaise or fevers. HEENT:Negative for frequent or significant headaches, No changes in hearing or vision, no nose bleeds or other nasal problems NECK:Negative for lumps, goiter, pain and significant neck swelling RESPIRATORY: Negative for cough, wheezing or shortness of breath. CARDIOVASCULAR: Negative for chest pain, leg swelling or palpitations. GASTROINTESTINAL: Negative for abdominal discomfort, blood in stools or black stools or change in bowel habits GENITOURINARY: No history of dysuria, frequency or incontinence MUSCULOSKELETAL: Negative for joint pain or swelling, back pain or muscle pain. NEUROLOGIC:Negative for focal numbness or weakness, headaches and dizziness or syncope, vision changes, speech/languag changes - EXCEPT that as per HPI above. SKIN:Negative for lesions, rash, and itching. PSYCHIATRIC: Negative for sleep disturbance, mood disorder and recent psychosocial stressors. HEMATOLOGIC/LYMPHATIC/IMMUNOLOGIC: Negative for prolonged bleeding, bruising easily or swollen nodes. ENDOCRINE: Negative for cold or heat intolerance, polyuria, polydipsia and goiter. The remainder of the ROS was reviewed and is negative. LAB/IMAGING: Those performed since patient's last visit have been reviewed. CT brain 11/21/23 IMPRESSION: Previously noted acute on chronic right cerebral convexity subdural hematoma has resolved. No evidence of acute hemorrhagic component in the interval Procedure noted midline shift has resolved. MRI cervical spine IMPRESSION: 1. 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 2. C3-C4 and C5-C6 moderate appearing central canal stenosis. 3. Additional degenerative changes as detailed above, including multilevel varying degrees of foraminal stenosis. Anatomic Variant: None. Assume 7 cervical vertebrae with counting from the craniocervical junction. MEDICATIONS: ibuprofen (MOTRIN) 400 mg tablet Take by mouth. memantine (NAMENDA) 5 mg tablet Take 1 tablet by mouth two times a day. terazosin (HYTRIN) 5 mg capsule Take 1 capsule by mouth daily at bedtime. meloxicam (MOBIC) 15 mg tablet Take 1 tablet by mouth once daily. With food. minocycline (MINOCIN, DYNACIN) 50 mg capsule Take 1 capsule by mouth twice daily. pravastatin (PRAVACHOL) 40 mg tablet Take 1 tablet by mouth once daily. acetaminophen (TYLENOL) 325 mg tablet Take 2 tablets by mouth every 6 hours as needed for Pain. HISTORIES PAST MEDICAL HISTORY Diagnosis Date Arthritis BPH with obstruction/lower urinary tract symptoms Rosacea Subarachnoid hemorrhage (HCC) 08/11/2023 FAMILY HISTORY Problem Relation Age of Onset Arthritis Mother Cancer Mother melanoma Heart Mother Viral myocarditis. GI Father ulcers SOCIAL HISTORY Social History Tobacco Use Smoking status: Every Day Packs/day: 0.50 Years: 20.00 Additional pack years: 0.00 Total pack years: 10.00 Types: Cigarettes Smokeless tobacco: Former Vaping Use Vaping Use: Never used Substance Use Topics Alcohol use: Not Currently Drug use: Never PHYSICAL EXAMINATION Resp 16 Wt 68.3 kg (150 lb 9.6 oz) BMI 25.06 kg/m MoCA: 1829 Visual-spatial: 3 ally namin/3 Attention: 12/20 Language: 11/19 abstraction: Delayed recall: Orientation: 03/22 GENERAL EXAM: General appearance: NAD, pleasant. HEENT: NC/AT, nasal congestion absent, no oral lesions, membranes moist. NECK: No masses, supple. Lungs: Breathing comfortably Extr: Moves all extremities without difficulty Skin: Cool to touch. No rash. Psych: Flat affect NEUROLOGICAL EXAM: General: Awake, alert, oriented x3 (person,place,time), speech fluent, no dysarthria; comprehension, naming, repetition intact. See MoCA above CN: PERRL, fundi appear normal including no evidence of papilledema, EOMI and without nystagmus, VFF to confrontation, facial strength normal and symmetric, hearing is intact to finger rub bilaterally, palate and tongue movements are intact and symmetric. SCM and trapezius strength normal. Motor: Normal bulk throughout Reflexes: Not tested Coordination: FNF intact. No tremors. Sensation: No evidence of neglect. Gait: Ambulates with a cane Assessment and Plan: ASSESSMENT/PLAN: 1. Frequent falls - ICD9: V15.88, ICD10: R29.6 (primary diagnosis) 2. Subdural hematoma (HCC) - ICD9: 432.1, ICD10: S06.5XAA 3. Dementia without behavioral disturbance (HCC) - ICD9: 294.20, ICD10: F03.90 4. Balance problem - ICD9: 781.99, ICD10: R26.89 5. Cervical stenosis of spinal canal - ICD9: 723.0, ICD10: M48.02 6. Memory loss - ICD9: 780.93, ICD10: R41.3 Patient with slight improvement since last appointment, was previously and is 18/ today. Following with neurosurgery and had complete resolution of his subdural hematoma, but concern for significant cervical stenosis likely contributing to falls. Workup previously including EMG was negative for other etiology. Patient having 4 falls since last appointment with no significant injury. Typically falls occur when he bends over and falls forward. No lightheadedness or dizziness. No new concerns today, no changes in memory, and patient both note some mild improvement. Patient is not very physically active and does not do any brain exercises, primarily watches TV at home. Does not drink much water. Discussed conservative therapy along with continuing Namenda 5 mg twice daily. Patient and amenable. Discussed neuropsychological testing and further workup patient deferring at this time, would like to continue with conservative therapy and reassess in 3 to 4 months. Encouraged follow-up with neurosurgery as well. Some concern regarding driving, while visual-spatial was 3 before, there is some deficit when compared to previous and total MoCA. Did discuss occupational evaluation for driving and will place this order. Until then, encourage patient to not drive alone, patient and family agree and understand. Patient agreeable to treatment plan of care at this time, questions were answered. Patient to follow-up in 3 to 4 months or sooner should any symptoms change or worsen. Jayda Ace PA-C I spent a total of 45 minutes on the date of the service which included preparing to see the patient, [id number] patient care, completing clinical documentation, obtaining and/or reviewing separately obtained history, performing a medically appropriate examination, counseling and educating the patient/family/caregiver, and ordering medications, tests, or procedures. This document has been created with the use of voice recognition technology. It may contain inaccuracies: (e.g. misspellings, inaccurate syntax or word sense) that have escaped review. 12/12/2023 PROMIS [facility] Physical Health Summary Physical health: Good Everyday physical activity, ability: Moderately Fatigue: Mild Pain level: 0 No Pain General health: Very good Social activities/roles, ability: Good Physical Health T-Score 47.7 (Good) Physical Health Percentile 41 PROMIS Global [facility] Mental Health Summary Quality of life: Very good Mental health (mood,thinking): Good Social satisfaction: Good Emotional problems (anxious,depressed): Rarely Mental Health T-Score 48.3 (Very Good) Mental Health Percentile 43 PHQ-9 Score: 0(Minimal Depression) PHQ-9 Self-Harm: Not at all NEURO-QOL Cognitive Function T-Score 46(Within Normal Limits) Neuro-Qol Cognitive Function Percentile 34 PROMIS Physical Function T-Score 32(Moderate Dysfunction) PROMIS Physical Function Percentile 4 Percentiles provide an indication of how a patient's score ranks in relation to the [place] general population. > 31st percentile is within normal limits or better *< 31st percentile is at least SD worse than population, which may be clinically relevant < 16th percentile is at least 1 SD worse than population and warrants attention documented in this encounter [facility] 12-13-2023 Note HNO ID: [id number] Author: MADAN GARCIA LPN Service: ? Author Type: LICENSED NURSE Type: Progress Notes Filed: 12/13/2023 11:37 Note Text: 12/12/2023 PROMIS Global Health Physical Health Summary Physical health: Good Everyday physical activity, ability: Moderately Fatigue: Mild Pain level: 0 No Pain General health: Very good Social activities/roles, ability: Good Physical Health T-Score 47.7 (Good) Physical Health Percentile 41 PROMIS Global [facility] Mental Health Summary Quality of life: Very good Mental health (mood,thinking): Good Social satisfaction: Good Emotional problems (anxious,depressed): Rarely Mental Health T-Score 48.3 (Very Good) Mental Health Percentile 43 PHQ-9 Score: 0(Minimal Depression) PHQ-9 Self-Harm: Not at all NEURO-QOL Cognitive Function T-Score 46(Within Normal Limits) Neuro-Qol Cognitive Function Percentile 34 PROMIS Physical Function T-Score 32(Moderate Dysfunction) PROMIS Physical Function Percentile 4 Percentiles provide an indication of how a patient's score ranks in relation to the [place] general population. > 31st percentile is within normal limits or better *< 31st percentile is at least ? SD worse than population, which may be clinically relevant < 16th percentile is at least 1 SD worse than population and warrants attention [facility] 11-21-2023 History of Present illness Narrative NEUROSURGERY FOLLOW UP OFFICE NOTE Kwadwo Srinivasan MD, PhD Date of visit: November 21, 2023 Patient Name: Mr.Gary Augustin Padron Date of : 1955 Current Age: [age] year old Sex: male MRN/E# [id number] Last Office Visit: 10/13/2023 Chief Complaint: Patient presents with: Established Patient SUBJECTIVE: HPI The patient presented to [facility] ED on 08/11/2023 after being unsteady on his feet and did not remember events of the night prior. He noted he thought he fell and hit his head. He noted head pain with a laceration. Advanced imaging demonstrated a small tSAH. No surgical intervention was warranted at that time. He was also noted to have a Campoverde's sign. It was recommended that he follow up in 4 weeks with a repeat CT Brain and MRI cervical. At his last visit on 09/12/2023 he stated he felt he had been doing well since discharge. His noted that his confusion and memory had worsened since being discharged. He denied any other symptoms at that time. He denied any cervical pain. He noted feeling unsteady and had use of a cane. His noted that he fell a week ago out of a chair loosing his balance, but noted he did not hit his head. He noted taking tylenol if needed, but hasn't needed to. There was some new bleeding he has had in his right subdural space which was associated with very subtle right to left midline shift of the brain. Also concerning but a lower priority is marked cervical cord compression which I think is now mandating a dual diagnosis of cervical myelopathy. It was recommended that he consider a referral for a middle meningeal artery embolization. He declined at that time. It was recommended that he follow up in 1 month with a repeat CT brain. He noted worsening symptoms and was evaluated by Dr. Pedro in office on 09/22/2023 to which he underwent a Attempted right MMA embolization on 10/04/2023. At his last visit on 10/13/2023 he stated he had been doing okay since his last visit. He and his noted some continued confusion and forgetfulness. He denied any weakness or falls. His felt that last week he started dragging his right foot with ambulation, did not note any dragging at today's visit. He continued with use of cane. He denied any headaches, dizziness, lightheadedness, nausea, vomiting, speech, hearing or visual changes. He denied taking anything for pain at this time. He did not present with a pronator drift, therefore there was no conclusion that his subdural hematoma was causing symptoms. Consideration for operative management for his cervical spine was reluctant due to his subdural hematoma. He was referred to physical therapy. It was recommended that he follow up in 1 month with a repeat CT head, prompting his visit today. Today he states he has been doing okay since his last visit. He continues with confusion and forgetfulness. He feels he continues to drag his right foot with ambulation and has continued use of a cane. He has fallen 4 times since his last visit. He denies any headaches, lightheadedness, nausea, vomiting, visual or hearing changes. He has since completed a course of therapy at [facility] in [place] and is to continue with exercises with Silver Sneaker. He denies any cervical pain at this time or any radicular symptoms. He presents for imaging review, evaluation and plan of care. Symptoms: memory difficulties and forgetfulness. Use of cane and unsteady. falls. Smoker: endorses Diabetic: denies Anticoagulants / Antiplatelets: denies Occupation: retired PREVIOUS CONSERVATIVE TREATMENTS: Mobic Tylenol Physical therapy- [facility] in [place] PREVIOUS SURGERY: None PAIN EVALUATION No data found in the last 1 encounters. PAST MEDICAL HISTORY Diagnosis Date Arthritis BPH with obstruction/lower urinary tract symptoms Rosacea Subarachnoid hemorrhage (HCC) 08/11/2023 PAST SURGICAL HISTORY Procedure Laterality Date PAST SURGICAL HISTORY OF flexible cystoscopy PAST SURGICAL HISTORY OF 9 tonsillectomy PAST SURGICAL HISTORY OF 2018 left eye surgery TRANSURETHRAL ELEC-SURG PROSTATECTOM N/A 08/18/2021 TRANSURETHRAL ELEC-SURG PROSTATECTOM 2019 FAMILY HISTORY Problem Relation Age of Onset Arthritis Mother Cancer Mother melanoma Heart Mother Viral myocarditis. GI Father ulcers ALLERGIES No Known Allergies Current Outpatient Medications Medication Sig Dispense Refill ibuprofen (MOTRIN) 400 mg tablet Take by mouth. memantine (NAMENDA) 5 mg tablet Take 1 tablet by mouth two times a day. 60 tablet 2 terazosin (HYTRIN) 5 mg capsule Take 1 capsule by mouth daily at bedtime. 90 capsule 3 meloxicam (MOBIC) 15 mg tablet Take 1 tablet by mouth once daily. With food. 30 tablet 1 minocycline (MINOCIN, DYNACIN) 50 mg capsule Take 1 capsule by mouth twice daily. 180 capsule 3 pravastatin (PRAVACHOL) 40 mg tablet Take 1 tablet by mouth once daily. 90 tablet 3 acetaminophen (TYLENOL) 325 mg tablet Take 2 tablets by mouth every 6 hours as needed for Pain. 0 No current facility-administered medications for this visit. REVIEW OF SYSTEMS Review of Systems Constitutional: Negative for diaphoresis, fatigue and fever. HENT: Negative for congestion, sinus pressure and sore throat. Eyes: Negative for discharge and itching. Respiratory: Negative for cough, chest tightness and shortness of breath. Cardiovascular: Negative for chest pain, palpitations and leg swelling. Gastrointestinal: Negative for constipation, diarrhea, nausea and vomiting. Endocrine: Negative for cold intolerance and heat intolerance. Genitourinary: Negative for difficulty urinating, frequency and urgency. Musculoskeletal: Positive for gait problem. Negative for back pain, neck pain and neck stiffness. Skin: Negative for rash and wound. Allergic/Immunologic: Negative for environmental allergies and food allergies. Neurological: Positive for weakness. Negative for dizziness, light-headedness, numbness and headaches. Hematological: Does not bruise/bleed easily. Psychiatric/Behavioral: Positive for confusion. Negative for agitation. The patient is not nervous/anxious. Forgetfulness OBJECTIVE: BP 116/79 Pulse 83 Ht 5' 5 (1.65m) Wt 152 lb 8.9 oz (69.2kg) SpO2 96% BMI 25.39 kg/(m^2). Physical Exam I did not repeat a physical examination with Lyric today. Data Review IMAGING STUDIES: CT Brain 11/21/2023: in process Assessment and Plan: Lyric has: -right acute on chronic subdural hematoma (resolved) -cervical myelopathy -nicotine dependence -recurrent falls -rosacea -historic traumatic subarachnoid hemorrhage The CT head that Lyric had today showed almost complete resolution of his right-sided acute on chronic subdural hematoma. This is outstanding news. I did caution Lyric and his that these can recur and I discussed the types of symptoms that they should be on the look out for that might prompt consideration of repeat imaging. This point our attention shifts more to carry cervical myelopathy. My concern is that Lyric has concerning overall health and is having recurrent falls. Lyric's level of interest in the surgeries not high. Lyric is also a committed smoker. I talked at length about the natural history of cervical myelopathy which largely repeated aspects of a prior discussion that we had. I did discuss the role of surgery as well as the typical postoperative course and the risks and benefits. Lyric seemed very disinterested in the procedure or any effort to cut down his smoking. They state a preference to consider surgical management and to contact me again in the future if this is something of interest to them. I think this is a very reasonable plan. Attestation: The following portions of the patient's history were reviewed, confirmed, and updated as necessary: allergies, current medications, past family history, past medical history, past social history, past surgical history, problem list, HPI, and ROS obtained by others. Some elements may be copied from a previous office note and have been reviewed/updated where appropriate. All portions reflect current medical decision making from today. The clinical and radiographic findings as well as the risks, benefits and alternatives of treatment have been reviewed in detail with the patient. The patient was advised to call the office if symptoms worsen or new symptoms develop. The patient expressed understanding and is in agreement with plan. Kwadwo Srinivasan MD, PhD This note was partially generated using [employer]ar[employer] voice recognition system, and there may be some incorrect words, spellings, and punctuation that were not noted in checking the note before saving. documented in this encounter [facility] 11-21-2023 Note HNO ID: [id number] Author: KWADWO SRINIVASAN MD, PhD Service: ? Author Type: Physician Type: Progress Notes Filed: 11/21/2023 13:14 Note Text: NEUROSURGERY FOLLOW UP OFFICE NOTE Kwadwo Srinivasan MD, PhD Date of visit: November 21, 2023 Patient Name: Mr.Gary Augustin Padron Date of : 1955 Current Age: [age] year old Sex: male MRN/E# [id number] Last Office Visit: 10/13/2023 Chief Complaint: Patient presents with: Established Patient SUBJECTIVE: HPI The patient presented to [facility] ED on 08/11/2023 after being unsteady on his feet and did not remember events of the night prior. He noted he thought he fell and hit his head. He noted head pain with a laceration. Advanced imaging demonstrated a small tSAH. No surgical intervention was warranted at that time. He was also noted to have a Campoverde's sign. It was recommended that he follow up in 4 weeks with a repeat CT Brain and MRI cervical. At his last visit on 09/12/2023 he stated he felt he had been doing well since discharge. His noted that his confusion and memory had worsened since being discharged. He denied any other symptoms at that time. He denied any cervical pain. He noted feeling unsteady and had use of a cane. His noted that he fell a week ago out of a chair loosing his balance, but noted he did not hit his head. He noted taking tylenol if needed, but hasn't needed to. There was some new bleeding he has had in his right subdural space which was associated with very subtle right to left midline shift of the brain. Also concerning but a lower priority is marked cervical cord compression which I think is now mandating a dual diagnosis of cervical myelopathy. It was recommended that he consider a referral for a middle meningeal artery embolization. He declined at that time. It was recommended that he follow up in 1 month with a repeat CT brain. He noted worsening symptoms and was evaluated by Dr. Pedro in office on 09/22/2023 to which he underwent a Attempted right MMA embolization on 10/04/2023. At his last visit on 10/13/2023 he stated he had been doing okay since his last visit. He and his noted some continued confusion and forgetfulness. He denied any weakness or falls. His felt that last week he started dragging his right foot with ambulation, did not note any dragging at today's visit. He continued with use of cane. He denied any headaches, dizziness, lightheadedness, nausea, vomiting, speech, hearing or visual changes. He denied taking anything for pain at this time. He did not present with a pronator drift, therefore there was no conclusion that his subdural hematoma was causing symptoms. Consideration for operative management for his cervical spine was reluctant due to his subdural hematoma. He was referred to physical therapy. It was recommended that he follow up in 1 month with a repeat CT head, prompting his visit today. Today he states he has been doing okay since his last visit. He continues with confusion and forgetfulness. He feels he continues to drag his right foot with ambulation and has continued use of a cane. He has fallen 4 times since his last visit. He denies any headaches, lightheadedness, nausea, vomiting, visual or hearing changes. He has since completed a course of therapy at [facility] in [place] and is to continue with exercises with Silver Sneaker. He denies any cervical pain at this time or any radicular symptoms. He presents for imaging review, evaluation and plan of care. Symptoms: memory difficulties and forgetfulness. Use of cane and unsteady. falls. Smoker: endorses Diabetic: denies Anticoagulants / Antiplatelets: denies Occupation: retired PREVIOUS CONSERVATIVE TREATMENTS: Mobic Tylenol Physical therapy- [facility] in [place] PREVIOUS SURGERY: None PAIN EVALUATION No data found in the last 1 encounters. PAST MEDICAL HISTORY Diagnosis Date Arthritis BPH with obstruction/lower urinary tract symptoms Rosacea Subarachnoid hemorrhage (HCC) 08/11/2023 PAST SURGICAL HISTORY Procedure Laterality Date PAST SURGICAL HISTORY OF flexible cystoscopy PAST SURGICAL HISTORY OF 1958 tonsillectomy PAST SURGICAL HISTORY OF 2017 left eye surgery TRANSURETHRAL ELEC-SURG PROSTATECTOM N/A 08/18/2021 TRANSURETHRAL ELEC-SURG PROSTATECTOM 2019 FAMILY HISTORY Problem Relation Age of Onset Arthritis Mother Cancer Mother melanoma Heart Mother Viral myocarditis. GI Father ulcers ALLERGIES No Known Allergies Current Outpatient Medications Medication Sig Dispense Refill ibuprofen (MOTRIN) 400 mg tablet Take by mouth. memantine (NAMENDA) 5 mg tablet Take 1 tablet by mouth two times a day. 60 tablet 2 terazosin (HYTRIN) 5 mg capsule Take 1 capsule by mouth daily at bedtime. 90 capsule 3 meloxicam (MOBIC) 15 mg tablet Take 1 tablet by mouth once daily. With food. 30 tablet 1 minocycline (MINOCIN, DYNACIN) 50 mg caps (more content not included)... [facility] 10-13-2023 Note HNO ID: [id number] Author: Kwadwo Srinivasan MD, PhD Service: ? Author Type: Physician Type: Progress Notes Filed: 10/13/2023 11:35 AM Note Text: NEUROSURGERY FOLLOW UP OFFICE NOTE Kwadwo Srinivasan MD, PhD Date of visit: October 13, 2023 Patient Name: Mr.Gary Augustin Padron Date of : 1955 Current Age: [age] year old Sex: male MRN/E# [id number] Last Office Visit: 09/22/2023 Chief Complaint: Patient presents with: Established Patient SUBJECTIVE: HPI The patient presented to [facility] ED on 08/11/2023 after being unsteady on his feet and did not remember events of the night prior. He noted he thought he fell and hit his head. He noted head pain with a laceration. Advanced imaging demonstrated a small tSAH. No surgical intervention was warranted at that time. He was also noted to have a Campoverde's sign. It was recommended that he follow up in 4 weeks with a repeat CT Brain and MRI cervical. At his last visit on 09/12/2023 he stated he felt he had been doing well since discharge. His noted that his confusion and memory had worsened since being discharged. He denied any other symptoms at that time. He denied any cervical pain. He noted feeling unsteady and had use of a cane. His noted that he fell a week ago out of a chair loosing his balance, but noted he did not hit his head. He noted taking tylenol if needed, but hasn't needed to. There was some new bleeding he has had in his right subdural space which was associated with very subtle right to left midline shift of the brain. Also concerning but a lower priority is marked cervical cord compression which I think is now mandating a dual diagnosis of cervical myelopathy. It was recommended that he consider a referral for a middle meningeal artery embolization. He declined at that time. It was recommended that he follow up in 1 month with a repeat CT brain. He noted worsening symptoms and was evaluated by Dr. Pedro in office on 09/22/2023 to which he underwent a Attempted right MMA embolization on 10/04/2023. Today he states he has been doing okay since his last visit. He and his note some continued confusion and forgetfulness. He denies any weakness or falls. His feels that last week he started dragging his right foot with ambulation, did not note any dragging at today's visit. He continues with use of cane. He denies any headaches, dizziness, lightheadedness, nausea, vomiting, speech, hearing or visual changes. He denies taking anything for pain at this time. He presents for evaluation and plan of care. Symptoms: memory difficulties and forgetfulness. Use of cane and unsteady. Smoker: endorses Diabetic: denies Anticoagulants / Antiplatelets: denies Occupation: retired PREVIOUS CONSERVATIVE TREATMENTS: Mobic Tylenol PREVIOUS SURGERY: None PAIN EVALUATION No data found in the last 1 encounters. PAST MEDICAL HISTORY Diagnosis Date Arthritis BPH with obstruction/lower urinary tract symptoms Rosacea Subarachnoid hemorrhage (HCC) 08/11/2023 PAST SURGICAL HISTORY Procedure Laterality Date PAST SURGICAL HISTORY OF flexible cystoscopy PAST SURGICAL HISTORY OF 1959 tonsillectomy PAST SURGICAL HISTORY OF 2018 left eye surgery TRANSURETHRAL ELEC-SURG PROSTATECTOM N/A 08/18/2021 TRANSURETHRAL ELEC-SURG PROSTATECTOM 2019 FAMILY HISTORY Problem Relation Age of Onset Arthritis Mother Cancer Mother melanoma Heart Mother Viral myocarditis. GI Father ulcers ALLERGIES No Known Allergies Current Outpatient Medications Medication Sig Dispense Refill ibuprofen (MOTRIN) 400 mg tablet Take by mouth. memantine (NAMENDA) 5 mg tablet Take 1 tablet by mouth two times a day. 60 tablet 2 terazosin (HYTRIN) 5 mg capsule Take 1 capsule by mouth daily at bedtime. 90 capsule 3 meloxicam (MOBIC) 15 mg tablet Take 1 tablet by mouth once daily. With food. 30 tablet 1 minocycline (MINOCIN, DYNACIN) 50 mg capsule Take 1 capsule by mouth twice daily. 180 capsule 3 pravastatin (PRAVACHOL) 40 mg tablet Take 1 tablet by mouth once daily. 90 tablet 3 acetaminophen (TYLENOL) 325 mg tablet Take 2 tablets by mouth every 6 hours as needed for Pain. 0 No current facility-administered medications for this visit. REVIEW OF SYSTEMS Review of Systems Constitutional: Negative for diaphoresis, fatigue and fever. HENT: Negative for congestion, sinus pressure and sore throat. Eyes: Negative for discharge and itching. Respiratory: Negative for cough, chest tightness and shortness of breath. Cardiovascular: Negative for chest pain, palpitations and leg swelling. Gastrointestinal: Negative for constipation, diarrhea, nausea and vomiting. Endocrine: Negative for cold intolerance and heat intolerance. Genitourinary: Negative for difficulty urinating, frequency and urgency. Musculoskeletal: Positive for gait problem. Negative for back pain, neck pain and neck stiffness. Skin: Ne (more content not included)... [facility] 10-04-2023 Note HNO ID: [id number] Author: Bentley Scott APRN.DRESS OPERATOR Service: Nursing Author Type: Nurse Hospital Orderly Type: Anesthesia Procedure Notes Filed: 10/04/2023 8:47 AM Note Text: ANESTHESIOLOGY PROCEDURE NOTE PIV General Information Procedure Start Time/Medication Administration: 10/04/2023 8:32 AM Staffing DRESS OPERATOR: Bentley Scott APRN.DRESS OPERATOR Performed by: KATARZYNA Preparation Sterility Preparation: hand hygiene performed prior to procedure, surgical cap used, mask used Sterility Technique Not Completely Performed Due to Extreme Emergency: No Site Prep: alcohol Procedure Details Indication: need for IV access Needle Size/Type: 16 gauge angiocath Orientation: Right Location: Wrist Imaging Guidance Used: No SIGNATURE: Bentley Scott APRN.CRNA PATIENT NAME: Lyric Padron DATE: October 04, 2023 TIME: 8:47 AM CSN: [id number] [facility] 10-04-2023 Note HNO ID: [id number] Author: Mainor Rosenberg MD Service: Nursing Author Type: Anesthesiologist Type: Anesthesia Procedure Notes Filed: 10/04/2023 10:17 AM Note Text: ANESTHESIOLOGY PROCEDURE NOTE Airway General Information Procedure Start Time/Medication Administration: 10/04/2023 8:22 AM Patient location during procedure: OR (NIL) Timeout Performed Pre-procedure: timeout performed Consent Obtained: Yes Patient identity confirmed: arm band Staffing Anesthesiologist: Mainor Rosenberg MD DRESS OPERATOR: Bentley Scott APRN.DRESS OPERATOR Performed by: KATARZYNA Indications and Patient Condition Indications for airway management: anesthesia and airway protection Preoxygenated: yes anesthesia circuit Patient position: sniffing Method: asleep Cricoid Pressure: No Manual In-Line Stabilization: No Difficult Mask: No Airway Accessory: oral airway (100 MM) Final Airway Details Final airway type: endotracheal airway Final Endotracheal Airway: ETT Cuffed: yes Successful intubation technique: direct laryngoscopy Devices used: Zannel Endotracheal tube insertion site: oral Blade: Rosenda Blade size: #4 ETT size (mm): 8.0 Measured from: lips Measurement (cm): 22 Placement verified by: chest auscultation Cormack-Lehane Classification: grade I - full view of glottis Number of attempts at approach: 1 Failed airway: no Unrecognized esophageal intubation: no Airway not difficult SIGNATURE: Bentley Scott APRN.CRNA PATIENT NAME: Lyric Padron DATE: October 04, 2023 TIME: 8:46 AM CSN: [id number] [facility] 09-22-2023 History of Present illness Narrative [facility] Initial Visit Lyric Padron [facility]#: [id number] Date of Service: 09/22/2023 Primary Care Provider: Geoffrey Adams MD The patient was referred by Iraj Bethea MD for opinion regarding chronic subdural hematoma, possible MMA embolization. I will provide a written report of my findings to the referring through letter, e communication, or epic. OUTPATIENT CONSULTATION Reason for Visit: Chronic subdural hematoma Handedness: left Clinic note by Dr Srinivasan on 09/12/23: The patient presented to [facility] ED on 08/11/2023 after being unsteady on his feet and did not remember events of the night prior. He noted he thought he fell and hit his head. He noted head pain with a laceration. Advanced imaging demonstrated a small tSAH. No surgical intervention was warranted at that time. He was also noted to have a Campoverde's sign. It was recommended that he follow up in 4 weeks with a repeat CT Brain and MRI cervical. Today he states he feel he has been doing well since discharge. His notes that his confusion and memory has worsened since being discharged. He denies any other symptoms at this time. He denies any cervical pain. He notes feeling unsteady and has use of a cane. His noted that he fell a week ago out of a chair loosing his balance, but noted he did not hit his head. He notes taking tylenol if needed, but hasn't needed to. He presents for imaging review, evaluation and plan of care. Symptoms: memory difficulties and forgetfulness. Falls, unsteady. Smoker: endorses Diabetic: denies Anticoagulants / Antiplatelets: denies Occupation: retired Interval history: - Never had any headache despite SDH - When admitted to hospital, sundowning always an issue - No headache, vertigo, lightheadedness, nausea or vomiting. - No transient or persistent visual, language, speech, swallowing, motor, sensory, coordination, or gait deficits. Past Medical History: ACTIVE PROBLEM LIST Benign Non-Nodular Prostatic Hyperplasia With Lower Urinary Tract Symptoms Bladder Neck Obstruction Rosacea, Acne Pure Hypercholesterolemia S/P Turp Mild Cognitive Impairment Ataxia, Unspecified Closed Head Injury Personal History of Traumatic Brain Injury Subarachnoid Hemorrhage (Hcc) Subdural Hematoma (Hcc) PAST SURGICAL HISTORY Procedure Laterality Date PAST SURGICAL HISTORY OF flexible cystoscopy PAST SURGICAL HISTORY OF 1959 tonsillectomy PAST SURGICAL HISTORY OF 2018 left eye surgery TRANSURETHRAL ELEC-SURG PROSTATECTOM N/A 08/18/2021 TRANSURETHRAL ELEC-SURG PROSTATECTOM 2019 Allergies: Patient has no known allergies. Medications: Current Outpatient Medications Medication Sig ibuprofen (MOTRIN) 400 mg tablet Take by mouth. memantine (NAMENDA) 5 mg tablet Take 1 tablet by mouth two times a day. terazosin (HYTRIN) 5 mg capsule Take 1 capsule by mouth daily at bedtime. meloxicam (MOBIC) 15 mg tablet Take 1 tablet by mouth once daily. With food. minocycline (MINOCIN, DYNACIN) 50 mg capsule Take 1 capsule by mouth twice daily. pravastatin (PRAVACHOL) 40 mg tablet Take 1 tablet by mouth once daily. acetaminophen (TYLENOL) 325 mg tablet Take 2 tablets by mouth every 6 hours as needed for Pain. No current facility-administered medications for this visit. Social History Tobacco Use Smoking status: Every Day Packs/day: 0.50 Years: 20.00 Additional pack years: 0.00 Total pack years: 10.00 Types: Cigarettes Smokeless tobacco: Former Vaping Use Vaping Use: Never used Substance Use Topics Alcohol use: Not Currently Drug use: Never Review of Systems ROS negative unless otherwise noted in HPI Melissa Pedro MD Patient Entered Questionnaires Health Status Impact by Stroke or CVD 09/21/2023 Impact Very little PROMIS/NeuroQoL Score Percentiles Physical Health 09/21/2023 Physical Function Percentile 1 Sleep Percentile 93 Fatigue Percentile 34 Pain Interference Percentile 84 PROMIS SOCIAL ROLE SCORE 09/21/2023 Social Role Satisfaction Percentile 1 Mental Health 09/21/2023 NeuroQol Cognitive Function Percentile 7 General Self-Efficacy Percentile 0 PROMIS Global Health Scale 09/21/2023 Physical Health Percentile 15 Mental Health Percentile 9 Percentiles provide an indication of how a patient's score ranks in relation to the [place] general population. > 31st percentile is within normal limits or better * < 31st percentile is at least SD worse than population, which may be clinically relevant < 16th percentile is at least 1 SD worse than population and warrants attention Depression Screening: PHQ-9 09/21/2023 Score 13 Self-Harm Response 0 PHQ-9 Scores: PHQ-9 Self-Harm (Item 9) Response: 0 - 9 No to Mild depression 0 - Not at all 10 - 14 Moderate depression 1 - Several Days > 15 Severe depression 2 - More than half the days 3 - Nearly every day Sleep Apnea Probability Score 09/21/2023 Sleep Apnea Screen V2 42 (Sleep study not recommended) PHYSICAL EXAMINATION There were no vitals taken for this visit. General: The patient was well-groomed, appeared to be of stated age, and was in no acute distress. Cardiovascular: Regular heart rate and rhythm. Radial pulses normal. Respiratory: Normal breaths and breathing effort. No apparent dyspnea on exam. Head and neck: Atraumatic and normocephalic. Normal and symmetric cervical range of motion. Integuments: No hematoma or ecchymoses. Neurological exam: - Awake, alert, aware of events. Oriented to date/ month/ year; self; place. Provided own history. - Language normal in fluency, conversational comprehension and to 2-step crossed commands, word and sentence repetition, and naming. No paraphasias. - Optic fundi showed normal neurovascular bundles, discs and central retina. - Normal visual gaines OU to confrontation. FLORENTIN. Extraocular movements full, conjugate, and with normal accomodation and no nystagmus or drift. - Facial sensation and movements normal. Normal speech; no dysarthria. Normal and symmetric palate rise. Normal head turn and sternocleidomastoid activation. Midline tongue protrusion. - Normal tone, bulk and power in bilateral upper and lower extremities. No pronator drift. No adventitious movements. - Normal primary sensory modalities (proprioception, touch). No spatial inattention or extinction. - Normal truncal and appendicular coordination. - Wide based gait, slow. Holds cane but doesn't use it; unsteady and does not catch self when turning. RESULTS I have independently reviewed and interpreted the following imaging studies and laboratory test results. CT brain (08/11/2023) 1. Stable minimal right frontoparietal subarachnoid hemorrhage. 2. Findings suspicious for small right sided subdural hygroma. This was not present on prior MRI brain. 3. Right parietal scalp soft tissue swelling and probable laceration. 4. Generalized brain parenchymal volume loss. Chronic small vessel ischemic changes of the supratentorial white matter. CT brain (09/12/2023) 1. There is new/worsening subdural hemorrhage along the right hemisphere as detailed above. In particular the hemorrhage adjacent to the right frontal lobe appears hyperdense suggesting acute/recent hemorrhage. Mild mass effect upon the adjacent brain parenchyma and mild appearing right to left midline shift, similar or slightly worsened compared to prior. 2. Previously visualized subarachnoid hemorrhage is not well demonstrated. MR C spine (09/12/23) 1. 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 2. C3-C4 and C5-C6 moderate appearing central canal stenosis. 3. Additional degenerative changes as detailed above, including multilevel varying degrees of foraminal stenosis. CT brain (09/19/2023) 1. Right hemispheric subdural hemorrhage consistent with an acute/subacute hematoma. The thickness of the subdural hematoma is most pronounced near the frontal lobe and is more conspicuous than on previous exam. This could be secondary to slice selection. There is no significant change in the amount of midline shift. CT C spine (09/19/2023) Degenerative changes without acute osseous adenopathy. Labs Hemoglobin (g/dL) Date Value 09/19/2023 15.7 07/14/2021 16.3 Hematocrit (%) Date Value 09/19/2023 45.3 07/14/2021 49.2 WBC (k/uL) Date Value 09/19/2023 10.68 07/14/2021 15.40 Glucose (mg/dL) Date Value 09/19/2023 97 07/14/2021 104 Potassium (mmol/L) Date Value 09/19/2023 4.0 07/14/2021 4.1 Sodium (mmol/L) Date Value 09/19/2023 136 07/14/2021 137 Chloride (mmol/L) Date Value 09/19/2023 103 07/14/2021 102 CO2 (mmol/L) Date Value 09/19/2023 23 07/14/2021 21 Creatinine (mg/dL) Date Value 09/19/2023 0.77 07/14/2021 0.84 BUN (mg/dL) Date Value 09/19/2023 8 07/14/2021 11 Anion Gap (mmol/L) Date Value 09/19/2023 10 07/14/2021 14 Calcium (mg/dL) Date Value 07/14/2021 9.5 Calcium, Total (mg/dL) Date Value 09/19/2023 9.4 Protein, Total (g/dL) Date Value 08/11/2023 6.7 07/14/2021 7.3 Albumin (g/dL) Date Value 08/11/2023 3.8 07/14/2021 4.6 Bilirubin, Total (mg/dL) Date Value 08/11/2023 0.4 07/14/2021 0.6 Alkaline Phosphatase (U/L) Date Value 08/11/2023 82 07/14/2021 81 AST Date Value 08/11/2023 Comment: Unable to assay due to interference from hemolysis. Suggest reorder as clinically indicated. 07/14/2021 24 U/L ALT (U/L) Date Value 08/11/2023 12 07/14/2021 21 IMPRESSION Right subdural hematoma, [id number] Mr Leisure is a good candidate for Right middle meningeal artery embolization for Right chronic subdural hematoma. We discussed the diagnosis, pathophysiology, and natural history of chronic subdural hematoma. I have explained the rationale behind the embolization which is the obliteration of the microvasculature that sustains the hematoma. We have discussed the unlikely but possible complications, including but not limited to a very low risk of stroke or ischemic injury to the eyesor cranial nerves. If severe, some of these complications may be life-threatening, or lead to short- or long-term sequelae. After discussion of the above, the patient would like to proceed with Right middle meningeal artery embolization. My office will schedule it as soon as possible. PLAN Right middle meningeal artery embolization under general anesthesia. Informed consent obtained. Follow up post R MMA embo: 4 weeks post embo, with Dr Srinivasan or Roger. SIGNATURE Melissa Pedro MD Staff, Neuroendovascular Intervention I spent 45 minutes reviewing EMR and imaging, face to face with the patient providing care and counseling, coordinating care, and documenting the encounter, on the day of the visit. CC Iraj Bethea [address] [facility] [address] [address] [place] [address] documented in this encounter [facility] 09-22-2023 Note HNO ID: [id number] Author: Melissa Pedro MD Service: ? Author Type: Physician Type: Progress Notes Filed: 09/23/2023 11:41 AM Note Text: [facility] Initial Visit Lyric Padron [facility]#: [id number] Date of Service: 09/22/2023 Primary Care Provider: Geoffrey Adams MD The patient was referred by Iraj Bethea MD for opinion regarding chronic subdural hematoma, possible MMA embolization. I will provide a written report of my findings to the referring through letter, e communication, or epic. OUTPATIENT CONSULTATION Reason for Visit: Chronic subdural hematoma Handedness: left Clinic note by Dr Srinivasan on 09/12/23: The patient presented to [facility] ED on 08/11/2023 after being unsteady on his feet and did not remember events of the night prior. He noted he thought he fell and hit his head. He noted head pain with a laceration. Advanced imaging demonstrated a small tSAH. No surgical intervention was warranted at that time. He was also noted to have a Campoverde's sign. It was recommended that he follow up in 4 weeks with a repeat CT Brain and MRI cervical. Today he states he feel he has been doing well since discharge. His notes that his confusion and memory has worsened since being discharged. He denies any other symptoms at this time. He denies any cervical pain. He notes feeling unsteady and has use of a cane. His noted that he fell a week ago out of a chair loosing his balance, but noted he did not hit his head. He notes taking tylenol if needed, but hasn't needed to. He presents for imaging review, evaluation and plan of care. Symptoms: memory difficulties and forgetfulness. Falls, unsteady. Smoker: endorses Diabetic: denies Anticoagulants / Antiplatelets: denies Occupation: retired Interval history: - Never had any headache despite SDH - When admitted to hospital, sundowning always an issue - No headache, vertigo, lightheadedness, nausea or vomiting. - No transient or persistent visual, language, speech, swallowing, motor, sensory, coordination, or gait deficits. Past Medical History: ACTIVE PROBLEM LIST Benign Non-Nodular Prostatic Hyperplasia With Lower Urinary Tract Symptoms Bladder Neck Obstruction Rosacea, Acne Pure Hypercholesterolemia S/P Turp Mild Cognitive Impairment Ataxia, Unspecified Closed Head Injury Personal History of Traumatic Brain Injury Subarachnoid Hemorrhage (Hcc) Subdural Hematoma (Hcc) PAST SURGICAL HISTORY Procedure Laterality Date PAST SURGICAL HISTORY OF flexible cystoscopy PAST SURGICAL HISTORY OF 9 tonsillectomy PAST SURGICAL HISTORY OF 2017 left eye surgery TRANSURETHRAL ELEC-SURG PROSTATECTOM N/A 08/18/2021 TRANSURETHRAL ELEC-SURG PROSTATECTOM 2019 Allergies: Patient has no known allergies. Medications: Current Outpatient Medications Medication Sig ibuprofen (MOTRIN) 400 mg tablet Take by mouth. memantine (NAMENDA) 5 mg tablet Take 1 tablet by mouth two times a day. terazosin (HYTRIN) 5 mg capsule Take 1 capsule by mouth daily at bedtime. meloxicam (MOBIC) 15 mg tablet Take 1 tablet by mouth once daily. With food. minocycline (MINOCIN, DYNACIN) 50 mg capsule Take 1 capsule by mouth twice daily. pravastatin (PRAVACHOL) 40 mg tablet Take 1 tablet by mouth once daily. acetaminophen (TYLENOL) 325 mg tablet Take 2 tablets by mouth every 6 hours as needed for Pain. No current facility-administered medications for this visit. Social History Tobacco Use Smoking status: Every Day Packs/day: 0.50 Years: 20.00 Additional pack years: 0.00 Total pack years: 10.00 Types: Cigarettes Smokeless tobacco: Former Vaping Use Vaping Use: Never used Substance Use Topics Alcohol use: Not Currently Drug use: Never Review of Systems ROS negative unless otherwise noted in HPI Melissa Pedro MD Patient Entered Questionnaires Health Status Impact by Stroke or CVD 09/21/2023 Impact Very little PROMIS/NeuroQoL Score Percentiles Physical Health 09/21/2023 Physical Function Percentile 1 Sleep Percentile 93 Fatigue Percentile 34 Pain Interference Percentile 84 PROMIS SOCIAL ROLE SCORE 09/21/2023 Social Role Satisfaction Percentile 1 Mental Health 09/21/2023 NeuroQol Cognitive Function Percentile 7 General Self-Efficacy Percentile 0 PROMIS Global Health Scale 09/21/2023 Physical Health Percentile 15 Mental Health Percentile 9 Percentiles provide an indication of how a patient's score ranks in relation to the [place] general population. > 31st percentile is within normal limits or better * < 31st percentile is at least ? SD worse than population, which may be clinically relevant < 16th percentile is at least 1 SD worse than population and warrants attention Depression Screening: PHQ-9 09/21/2023 Score 13 Self-Harm Response 0 PHQ-9 Scores: PHQ-9 Self-Harm (Item 9) Response: 0 - 9 No to Mild depression 0 - Not at a (more content not included)... [facility] 09-22-2023 Miscellaneous Notes called to clarify who would be preforming the procedure. She was asking about a bran and I notified her I was unsure who Bran was. Advised her their visit was with Dr. Pedro today. She asked further questions regarding Dr. Pedro and wanted to make sure we knew he had early signs of dementia. Brandin Kebede RN documented in this encounter [facility] 09-22-2023 Instructions Melissa Pedro MD - 09/22/2023 3:40 AM EST Images from the original note were not included. You have a blood collection between the underside of the skull and the brain on the right side(s) of your head. A blood collection in that location is known as a subdural hematoma. When a subdural hematoma persists after some time, it is usually due to tiny, new blood vessels that formed after an injury. These tiny blood vessels tend to be leaky, which is what prevents the blood from clearing by itself - much like trying to drain a sink with a leaky faucet. We can block off these tiny blood vessels through a procedure called middle meningeal artery embolization . During a middle meningeal artery embolization, we bring in a small catheter (a thin tube) from the wrist or the top of leg (groin) into the body's arteries, which is its natural piping system. We guide the catheter to where the leaky blood vessels take off, then block them off using either microscopic particles, or a glue-like substance. You will be under anesthesia for the procedure, and we will plan to admit you to the hospital after the procedure for an overnight stay. Our nurses from the Neurointerventional Lab will reach out to you to schedule the procedure. Stroke Signs and Symptoms: *Stroke is a medical emergency. Know the warning signs of stroke: Sudden numbness or weakness of the face, arm or leg, especially on one side of the body Sudden confusion, trouble speaking, or understanding Sudden trouble seeing in one eye, or both eyes Sudden trouble walking, dizziness, loss of balance, or coordination Sudden severe headache with no known cause *If you, or someone with you, has one or more of these signs, don't delay! Immediately call 911, or the emergency medical services (EMS) number so an ambulance can be sent for you. Also, check the time so that you will know when the symptoms first appeared. It is very important to take immediate action, every second counts. Medical treatment may be available if action is taken early enough. documented in this encounter [facility] 09-20-2023 Miscellaneous Notes Patient's called and was requesting the number and referral for a MMA embolization. It appeared patient did present to the ED yesterday as recommended, but left AMA and neurosurgery recommended admission. stated he does not want to go back as I recommended. Discussed at length and she and she states her is aware of recommendations. Notified her I would have Eneida contact her for information regarding visit with Dr Thompson. Advised again to present to the ED is new or worsening symptoms. Brandin Kebede RN documented in this encounter [facility] 09-19-2023 History of Past i llness Narrative Problem Noted Date Diagnosed Date Resolved Date Subdural hematoma 09/19/2023 12/30/2023 Overview: Previous traumatic SAH on 08/12/23, follow up 09/12/23 repeat scan noted SDH Closed fracture of distal end of fibula 12/22/2022 12/22/2022 Closed head injury 12/22/2022 4 documented as of this encounter (statuses as of 12/30/2023) [facility]12-04-2023 Miscellaneous Notes* Telephone Encounter - Brandin Kebede RN - 09/19/2023 10:55 AM EST The patients called with concerns. She noted that he fell on tuesday bending over to get the dogs food. She notes he stated he did not hit his head, but she is unsure. She noted it appeared that he didn't. She felt his weakness has been worsening. She notes that he has denied any other concerning symptoms, but she notes she feels he wouldn't tell her if he did have any concerning symptoms going on. Advised that he be evaluated at the ED due to his current history and per Dr. Thomasrecommendations from last office visit. She expressed understanding. Brandin Kebede RN [facility] NoteHNO ID: [id number] Author: Indio Pena RN Service: ? Author Type: Registered Nurse Type: Progress Notes Filed: 09/13/2023 3:02 PM Note Text: TRANSITION CARE MANAGEMENT (TCM) FOLLOW-UP NOTE Provider Action/FYI Chart reviewed for TCM follow up. 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 - memantine (NAMENDA) 5 mg tablet Take 1 tablet by mouth two times a day. - terazosin (HYTRIN) 5 mg capsule Take 1 capsule by mouth daily at bedtime. - meloxicam (MOBIC) 15 mg tablet Take 1 tablet by mouth once daily. With food. - minocycline (MINOCIN, DYNACIN) 50 mg capsule Take 1 capsule by mouth twice daily. - pravastatin (PRAVACHOL) 40 mg tablet Take 1 tablet by mouth once daily. - acetaminophen (TYLENOL) 325 mg tablet Take 2 tablets by mouth every 6 hours as needed for Pain. Problem List As Of Date 09/13/2023 Noted Resolved Benign non-nodular prostatic hyperplasia with l*01/01/2008 BLADDER NECK OBSTRUCTION [N32.0] 01/01/2008 Rosacea, Acne [L71.9] 02/09/2010 Pure hypercholesterolemia [E78.00] 02/26/2013 S/P TURP [Z90.79] 10/20/2021 Mild cognitive impairment [G31.84] 06/24/2022 Ataxia, unspecified [R27.0] 06/15/2022 Closed fracture of distal end of fibula [S82.83*12/22/2022 12/22/2022 Closed head injury [S09.90XA] 12/22/2022 Personal history of traumatic brain injury [Z87*06/15/2022 Subarachnoid hemorrhage (HCC) [I60.9] 08/11/2023 Encounter Status:Closed by INDIO PENA on 09/13/23[facility] 09-12-2023 NoteHNO ID: [id number] Author: Kwadwo Srinivasan MD, PhD Service: ? Author Type: Physician Type: Progress Notes Filed: 09/12/2023 3:40 PM Note Text: NEUROSURGERY FOLLOW UP OFFICE NOTE Kwadwo Srinivasan MD, PhD Date of visit: September 12, 2023 Patient Name: Mr.Gary Augustin Padron Date of : 1955 Current Age: [age] year old Sex: male MRN/E# [id number] Last Office Visit: Visit date not found Chief Complaint: Patient presents with: Established Patient: Hospital discharge SUBJECTIVE: HPI The patient presented to [facility] ED on 08/11/2023 after being unsteady on his feet and did not remember events of the night prior. He noted he thought he fell and hit his head. He noted head pain with a laceration. Advanced imaging demonstrated a small tSAH. No surgical intervention was warranted at that time. He was also noted to have a Campoverde's sign. It was recommended that he follow up in 4 weeks with a repeat CT Brain and MRI cervical. Today he states he feel he has been doing well since discharge. His notes that his confusion and memory has worsened since being discharged. He denies any other symptoms at this time. He denies any cervical pain. He notes feeling unsteady and has use of a cane. His noted that he fell a week ago out of a chair loosing his balance, but noted he did not hit his head. He notes taking tylenol if needed, but hasn't needed to. He presents for imaging review, evaluation and plan of care. Symptoms: memory difficulties and forgetfulness. Falls, unsteady. Smoker: endorses Diabetic: denies Anticoagulants / Antiplatelets: denies Occupation: retired PREVIOUS CONSERVATIVE TREATMENTS: Mobic Tylenol PREVIOUS SURGERY: None PAIN EVALUATION No data found in the last 1 encounters. PAST MEDICAL HISTORY Diagnosis Date Arthritis BPH with obstruction/lower urinary tract symptoms Rosacea Subarachnoid hemorrhage (HCC) 08/11/2023 PAST SURGICAL HISTORY Procedure Laterality Date PAST SURGICAL HISTORY OF flexible cystoscopy PAST SURGICAL HISTORY OF 1959 tonsillectomy PAST SURGICAL HISTORY OF 2018 left eye surgery TRANSURETHRAL ELEC-SURG PROSTATECTOM N/A 08/18/2021 TRANSURETHRAL ELEC-SURG PROSTATECTOM 2019 FAMILY HISTORY Problem Relation Age of Onset Arthritis Mother Cancer Mother melanoma Heart Mother Viral myocarditis. GI Father ulcers ALLERGIES No Known Allergies Current Outpatient Medications Medication Sig Dispense Refill ibuprofen (MOTRIN) 400 mg tablet Take by mouth. memantine (NAMENDA) 5 mg tablet Take 1 tablet by mouth two times a day. 60 tablet 2 terazosin (HYTRIN) 5 mg capsule Take 1 capsule by mouth daily at bedtime. 90 capsule 3 meloxicam (MOBIC) 15 mg tablet Take 1 tablet by mouth once daily. With food. 30 tablet 1 minocycline (MINOCIN, DYNACIN) 50 mg capsule Take 1 capsule by mouth twice daily. 180 capsule 3 pravastatin (PRAVACHOL) 40 mg tablet Take 1 tablet by mouth once daily. 90 tablet 3 acetaminophen (TYLENOL) 325 mg tablet Take 2 tablets by mouth every 6 hours as needed for Pain. 0 No current facility-administered medications for this visit. REVIEW OF SYSTEMS Review of Systems Constitutional: Negative for diaphoresis, fatigue and fever. HENT: Negative for congestion, sinus pressure and sore throat. Eyes: Negative for discharge and itching. Respiratory: Negative for cough, chest tightness and shortness of breath. Cardiovascular: Negative for chest pain, palpitations and leg swelling. Gastrointestinal: Negative for constipation, diarrhea, nausea and vomiting. Endocrine: Negative for cold intolerance and heat intolerance. Genitourinary: Negative for difficulty urinating, frequency and urgency. Musculoskeletal: Positive for gait problem. Negative for back pain, neck pain and neck stiffness. Skin: Negative for rash and wound. Allergic/Immunologic: Negative for environmental allergies and food allergies. Neurological: Negative for dizziness, weakness, light-headedness, numbness and headaches. Hematological: Does not bruise/bleed easily. Psychiatric/Behavioral: Positive for confusion. Negative for agitation. The patient is not nervous/anxious. OBJECTIVE: BP 105/69 Pulse 74 Ht 5' 6 (1.68m) Wt 154 lb (69.9kg) SpO2 98% BMI 24.87 kg/(m2). Physical Exam Today Lyric was fully oriented but he did take some time to consider his answers. I felt that he had a very subtle left-sided pronator drift. I thought that he had a very mild right-sided Eldon sign but this was subtle. Data Review IMAGING STUDIES: MRI Cervical Spine 09/12/2023: in process CT Brain 09/12/2023: in process Assessment and Plan: Today Lyric has a couple of concerning findings. Most concerning to me is some new bleeding he has had in his right subdural space which is associated with very subtle right to left midline shift of the brain. Also concerning but a lower priority is marked cervical co (more content not included)...[facility]11-27-2023 NoteHNO ID: [id number] Author: Morenita Murray RT(R) Service: Radiology Author Type: Technologist Type: Progress Notes Filed: 09/12/2023 1:45 PM Note Text: Radiology Service Progress Note PATIENT NAME: Lyric Padron DATE OF SERVICE: September 12, 2023 TIME: 1:45 PM PATIENT IDENTITY VERIFICATION COMPLETED USING TWO (2) IDENTIFIERS: Name and Date of confirmed by patient verbally. FALL SCREENING: Has the patient had 2 falls in the last year or 1 fall with injury or currently using an Ambulatory Assistive Device (Walker, Cane, Wheelchair, Crutches, etc.)? No PATIENT GENDER DATA: Male PATIENT RELEVANT IMPLANT DATA REVIEWED: Yes RADIOLOGY DEPARTMENT: MR; Exam(s) Completed: Spine: Cervical spine PERIPHERAL IV DATA: Not applicable SIGNED BY: RT Arleth(R) September 12, 2023 1:45 [facility]11-11-2023 NoteHNO ID: [id number] Author: Luis Raphael RN Service: ? Author Type: Registered Nurse Type: Progress Notes Filed: 08/27/2023 7:27 PM Note Text: TRANSITION CARE MANAGEMENT (TCM) FOLLOW-UP NOTE Provider Action/FYI: TCM Chart review. Pt had NEURO f/u on 08/24/23 Telephone outreach deferred. Appointments for Next 60 Days Date Time Provider Location Dept Phone 09/12/2023 1:15 PM MRI [facility] [place] [phone] 09/12/2023 2:[address] [facility] [place] [facility] [phone] 09/12/2023 2:45 PM [facility] [place] [facility] [phone] Discharge Network Status: In-Network Discharge Summary: Pt discharged from [facility] on 08/12/23. Admitted for: Subarachnoid hemorrhage World Geography Teacher plan for next outreach: No further follow up needed at this time JOSEPH Education Ordered -: No Signature [facility] History of Present illness Narrative* Luis Raphael RN - 08/27/2023 7:25 PM EST TRANSITION CARE MANAGEMENT (TCM) FOLLOW-UP NOTE Provider Action/FYI: TCM Chart review. Pt had NEURO f/u on 08/24/23 Telephone outreach deferred. Appointments for Next 60 Days Date Time Provider Location Dept Phone 09/12/2023 1:15 PM MRI [facility] [place] [facility] [phone] 09/12/2023 2:[address] [facility] [place] [facility] [phone] 09/12/2023 2:45 PM [facility] [place] [facility] [phone] Discharge Network Status: In-Network Discharge Summary: Pt discharged from [facility] on 08/12/23. Admitted for: Subarachnoid hemorrhage World Geography Teacher plan for next outreach: No further follow up needed at this time JOSEPH Education Ordered -: No Signature Luis Raphael RN August 27, 2023 [facility] NotePatient Outreach ([facility]) LYRIC PADRON ([id number]) 1955 M Date Time Provider Department 08/27/23 [facility] During your visit today, we recorded the following information about you: Luis Raphael RN 08/27/2023 7:27 PM Signed TRANSITION CARE MANAGEMENT (TCM) FOLLOW-UP NOTE Provider Action/FYI: TCM Chart review. Pt had NEURO f/u on 08/24/23 Telephone outreach deferred. Appointments for Next 60 Days Date Time Provider Location Dept Phone 09/12/2023 1:15 PM [facility] [place] [facility] [phone] 09/12/2023 2:[address] [facility] [place] [facility] [phone] 09/12/2023 2:45 PM [facility] [place] [facility] [phone] Discharge Network Status: In-Network Discharge Summary: Pt discharged from [facility] on 08/12/23. Admitted for: Subarachnoid hemorrhage World Geography Teacher plan for next outreach: No further follow up needed at this time JOSEPH Education Ordered -: No Signature Luis Raphael RN August 27, 2023 Allergies As of Date: 08/27/2023 (No Known Allergies) Date Reviewed: 08/24/2023 Reviewed by: Jayda Ace PA-C - Fully Assessed Reason for Visit: Transition Of Care [4074] Cmt: TCM follow up [facility] Discharge 08/12/23 Prescriptions as of 08/27/2023 - memantine (NAMENDA) 5 mg tablet Take 1 tablet by mouth two times a day. - terazosin (HYTRIN) 5 mg capsule Take 1 capsule by mouth daily at bedtime. - meloxicam (MOBIC) 15 mg tablet Take 1 tablet by mouth once daily. With food. - minocycline (MINOCIN, DYNACIN) 50 mg capsule Take 1 capsule by mouth twice daily. - pravastatin (PRAVACHOL) 40 mg tablet Take 1 tablet by mouth once daily. - acetaminophen (TYLENOL) 325 mg tablet Take 2 tablets by mouth every 6 hours as needed for Pain. Problem List As Of Date 08/27/2023 Noted Resolved Benign non-nodular prostatic hyperplasia with l*01/01/2008 BLADDER NECK OBSTRUCTION [N32.0] 01/01/2008 Rosacea, Acne [L71.9] 02/09/2010 Pure hypercholesterolemia [E78.00] 02/26/2013 S/P TURP [Z90.79] 10/20/2021 Mild cognitive impairment [G31.84] 06/24/2022 Ataxia, unspecified [R27.0] 06/15/2022 Closed fracture of distal end of fibula [S82.83*12/22/2022 12/22/2022 Closed head injury [S09.90XA] 12/22/2022 Personal history of traumatic brain injury [Z87*06/15/2022 Subarachnoid hemorrhage (HCC) [I60.9] 08/11/2023 Encounter Status:Closed by LUIS RAPHAEL on 08/27/23[facility]11-08-2023 Instructions* Patient Instructions* Jayda Ace PA-C - 08/24/2023 11:46 AM EST Follow up with neurosurgery as scheduled Have imaging performed as scheduled Continue namenda 5mg twice daily Follow up in 3 months documented in this encounterBarney [facility]-2023 NoteHNO ID: [id number] Author: Jayda Ace PA-C Service: ? Author Type: Physician Set Up Mechanic Crown [employer] Machine Type: Progress Notes Filed: 08/24/2023 12:34 PM Note Text: ESTABLISHED PATIENT VISIT Last visit: 03/03/23 with Ashley Ewing BILL RECAPITULATION CLERK Z87.820 History of traumatic brain injury (primary encounter diagnosis) R41.3 Memory loss Comment: Patient previously presenting for memory concerns. Modified MOCA repeated today with score of 24/29; unchanged since time of previous appointment. He is currently taking Namenda 5mg BID with reported improvement in memory. Denies SE. No dangerous behaviors or hallucinations reported. He declines further testing such as formal neurocognitive testing or brain health consult. Can still consider at time of follow up appointment. Discussed importance of notifying the office if significant change in cognitive status occurs. R26.89 Balance problem Comment: Pt also prevoiusly seen for balance concerns. At time of last appointment sx felt to be secondary to possible L spine disease or ankle injury. Strength intact and no sensory changes noted. Referral to spine medicine considered at time of last OV but pt deferred. Also discussed proceeding with EMG/NCV but pt deferred additional testing as well. Since time of previous appointment he has been working with physical therapy with improvement in gait and balance. Denies recent falls. He does report leg weakness with onset roughly 10-15 minutes after standing. Denies associated double vision/SOB. No focal weakness noted on assessment in office. He has had follow-up with his PCP regarding this concern and noted to have abnormal pulses. Testing to rule out vascular etiology was ordered. Discussed that if no vascular causes noted, may proceed with EMG/NCV to further evaluate for neuro etiology. Pt and agreeable and will update the office if symptoms persist and vascular testing is unremarkable. In interim recommend continuing HEP and maintaining fall precautions. Follow up in four months or sooner if new or worsening symptoms occur. Ashley Ewing APRN.BILL RECAPITULATION CLERK I spent a total of 45 minutes on the date of the service which included preparing to see the patient, [id number] patient care, completing clinical documentation, obtaining and/or reviewing separately obtained history, performing a medically appropriate examination, and counseling and educating the patient/family/caregiver. CHIEF COMPLAINT: Follow up HISTORY OF PRESENT ILLNESS: Lyric Padron is a 68 year old male, There were no vitals taken for this visit. with a PMH significant for Head injury 2007, MCI, DDD. Last seen by Ashley on 03/03/23- seen for TBI, memory loss. Memory has been stable, taking Namenda 5mg bid. MoCA was . Reporting some balance issues at last appointment, improvement with PT. Looking for vascular cause and should this be negative, will get EMG. EMG was negative, MRI lumbar spine shows mild to severe changes and referred to spine. Patient recently admitted 08/11/23 for SAH for fall down stairs. Seen by neurosurgery and needs follow up in four weeks for repeat imaging. Patient presents with for follow-up. Prior to appointment, asked to speak with me in the hallway outside of the patient's room. States that she is concerned that after his fall on 08-11-2023 he has had some worsening memory issues and she is concerned about this being long-lasting. Asked her to come to the room and speak with the patient about this concern. Patient states that prior to his fall he had had a few small falls that were without any significant injury. Has not fallen since his hospitalization. Notes that prior to his fall he was doing well, no memory concerns or new symptoms. Since his fall, states that he is also fine but again reports some memory issues and confusion. No unilateral symptoms, no strokelike symptoms, no new deficits. Notes that he is no longer doing PT since his fall as directed. Did see Chuck Jones PA-C for spine and he feels that his lumbar degeneration is not contributing significantly to his weakness and encouraged to continue physical therapy. EMG was negative for any etiology, MRI of the cervical spine was ordered and is scheduled for later this month. Patient without any worsening weakness, no saddle anesthesia, no paresthesias, no bowel bladder incontinence. denies any personality changes, no sleepiness or increased fatigue. Patient recovering well from his injury. Patient denying any dizziness, headaches, vision changes, blurred vision or new symptoms. Continuing Namenda 5 mg twice daily but needs a refill today. REVIEW OF SYSTEMS GENERAL:No weight loss, malaise or fevers. HEENT:Negative for frequent or significant headaches, No changes in hearing or vision, no nose bleeds or other nasal problems NECK:Negative for lumps, goiter, pain and significant neck swelling RESPIRATORY: Nega (more content not included)...[facility] 08-24-2023 History of Present illness Narrative* Jayda Ace PA-C - 08/24/2023 11:07 AM EST ESTABLISHED PATIENT VISIT Last visit: 03/03/23 with Ashley Ewing BILL RECAPITULATION CLERK Z87.820 History of traumatic brain injury (primary encounter diagnosis) R41.3 Memory loss Comment: Patient previously presenting for memory concerns. Modified MOCA repeated today with scoreof 24/29; unchanged since time of previous appointment. He is currently taking Namenda 5mg BID withreported improvement in memory. Denies SE. No dangerous behaviors or hallucinations reported. He declines further testing such as formal neurocognitive testing or brain health consult. Can still consider at time of follow up appointment. Discussed importance of notifying the office if significant change in cognitive status occurs. R26.89 Balance problem Comment: Pt also prevoiusly seen for balance concerns. At time of last appointment sx felt to be secondary to possible L spine disease or ankle injury. Strength intact and no sensory changes noted. Referral to spine medicine considered at time of last OV but pt deferred. Also discussed proceeding with EMG/NCV but pt deferred additional testing as well. Since time of previous appointment he has been working with physical therapy with improvement in gait and balance. Denies recent falls. He does report leg weakness with onset roughly 10-15 minutes after standing. Denies associated double vision/SOB. No focal weakness noted on assessment in office. He has had follow-up with his PCP regarding this concern and noted to have abnormal pulses. Testing to rule out vascular etiology was ordered. Discussed that if no vascular causes noted, may proceed with EMG/NCV to further evaluate for neuro etiology. Pt and agreeable and will update the office if symptoms persist and vascular testing is unremarkable. In interim recommend continuing HEP and maintaining fall precautions. Follow up in four months or sooner if new or worsening symptoms occur. Ashley Ewing, SLOAN.BILL RECAPITULATION CLERK I spent a total of 45 minutes on the date of the service which included preparing to see the patient, [id number] patient care, completing clinical documentation, obtaining and/or reviewing separately obtained history, performing a medically appropriate examination, and counseling and educating the patient/family/caregiver. CHIEF COMPLAINT: Follow up HISTORY OF PRESENT ILLNESS: Lyric Padron is a 68 year old male, There were no vitals taken for this visit. with a PMH significant for Head injury 2007, MCI, DDD. Last seen by Ashley on 03/03/23- seen for TBI, memory loss. Memory has been stable, taking Namenda 5mg bid. MoCA was . Reporting some balance issues at last appointment, improvement with PT. Looking for vascular cause and should this be negative, will get EMG. EMG was negative, MRI lumbar spine shows mild to severe changes and referred to spine. Patient recently admitted 08/11/23 for SAH forfall down stairs. Seen by neurosurgery and needs follow up in four weeks for repeat imaging. Patient presents with for follow-up. Prior to appointment, asked to speak with me in the hallway outside of the patient's room. States that she is concerned that after his fall on 08-11-2023 he has had some worsening memory issues and she is concerned about this being long-lasting. Asked her to come to the room and speak with the patient about this concern. Patient states that prior to his fall he had had a few small falls that were without any significant injury. Has not fallen sincehis hospitalization. Notes that prior to his fall he was doing well, no memory concerns or new symptoms. Since his fall, states that he is also fine but again reports some memory issues and confusion. No unilateral symptoms, no strokelike symptoms, no new deficits. Notes that he is no longer doing PT since his fall as directed. Did see Chuck Jones PA-C for spine and he feels that his lumbar degeneration is not contributing significantly to his weakness and encouraged to continue physical therapy. EMG was negative for any etiology, MRI of the cervical spine was ordered and is scheduled for later this month. Patient without any worsening weakness, no saddle anesthesia, no paresthesias, no bowel bladder incontinence. denies any personality changes, no sleepiness or increased fatigue. Patient recovering well from his injury. Patient denying any dizziness, headaches, vision changes, blurred vision or new symptoms. Continuing Namenda 5 mg twice daily but needs a refill today. REVIEW OF SYSTEMS GENERAL:No weight loss, malaise or fevers. HEENT:Negative for frequent or significant headaches, No changes in hearing or vision, no nose bleeds or other nasal problems NECK:Negative for lumps, goiter, pain and significant neck swelling RESPIRATORY: Negative for cough, wheezing or shortness of breath. CARDIOVASCULAR: Negative for chest pain, leg swelling or palpitations. GASTROINTESTINAL: Negative for abdominal discomfort, blood in stools or black stools or change in bowel habits GENITOURINARY: No history of dysuria, frequency or incontinence MUSCULOSKELETAL: Negative for joint pain or swelling, back pain or muscle pain. NEUROLOGIC:Negative for focal numbness or weakness, headaches and dizziness or syncope, vision changes, speech/languag changes - EXCEPT that as per HPI above. SKIN:Negative for lesions, rash, and itching. PSYCHIATRIC: Negative for sleep disturbance, mood disorder and recent psychosocial stressors. HEMATOLOGIC/LYMPHATIC/IMMUNOLOGIC:Negative for prolonged bleeding, bruising easily or swollen nodes. ENDOCRINE: Negative for cold or heat intolerance, polyuria, polydipsia and goiter. The remainder of the ROS was reviewed and is negative. LAB/IMAGING: Those performed since patient's last visit have been reviewed. CT brain 08/11/23 IMPRESSION: 1. Stable minimal right frontoparietal subarachnoid hemorrhage. 2. Findings suspicious for small right sided subdural hygroma. This was not present on prior MRI brain. 3. Right parietal scalp soft tissue swelling and probable laceration. 4. Generalized brain parenchymal volume loss. Chronic small vessel ischemic changes of the supratentorial white matter. MEDICATIONS: terazosin (HYTRIN) 5 mg capsule Take 1 capsule by mouth daily at bedtime. meloxicam (MOBIC) 15 mg tablet Take 1 tablet by mouth once daily. With food. minocycline (MINOCIN, DYNACIN) 50 mg capsule Take 1 capsule by mouth twice daily. pravastatin (PRAVACHOL) 40 mg tablet Take 1 tablet by mouth once daily. acetaminophen (TYLENOL) 325 mg tablet Take 2 tablets by mouth every 6 hours as needed for Pain. memantine (NAMENDA) 5 mg tablet Take 1 tablet by mouth two times a day. HISTORIES PAST MEDICAL HISTORY Diagnosis Date Arthritis BPH with obstruction/lower urinary tract symptoms Rosacea Subarachnoid hemorrhage (HCC) 08/11/2023 FAMILY HISTORY Problem Relation Age of Onset Arthritis Mother Cancer Mother melanoma Heart Mother Viral myocarditis. GI Father ulcers SOCIAL HISTORY Social History Tobacco Use Smoking status: Every Day Packs/day: 0.50 Years: 20.00 Additional pack years: 0.00 Total pack years: 10.00 Types: Cigarettes Smokeless tobacco: Former Vaping Use Vaping Use: Never used Substance Use Topics Alcohol use: Not Currently Drug use: Never PHYSICAL EXAMINATION BP 124/81 Pulse 87 Resp 16 Wt 70.1 kg (154 lb 8 oz) SpO2 99% BMI 24.94 kg/m GENERAL EXAM: MoCA: Visuospatial: 3 Namin3 Instant recall: 12/19 Attention: 11/22 Language: 23 Abstraction: 0/2 Delayed recall: 0 Orientation: 03/22 Previous MoCA was General appearance: NAD, pleasant. HEENT: NC/AT, nasal congestion absent, no oral lesions, membranes moist. NECK: No masses, supple. Lungs: Breathing comfortably Extr: Moves all extremities without difficulty Skin: Cool to touch. No rash. Laceration and stitches to the right occiput is healing well without any signs of infection. Psych: Quiet, but alert and cooperative. NEUROLOGICAL EXAM: General: Awake, alert, oriented x3 (person,place,time), speech fluent, no dysarthria; comprehension, naming, repetition intact. See MoCA above CN: PERRL, EOMI and without nystagmus, VFF to confrontation, facial sensation and strength are normal and symmetric, hearing is intact to finger rub bilaterally, palate and tongue movements are intact and symmetric. SCM and trapezius strength normal. Motor: Normal tone, bulk and strength (5/5) bilaterally (throughout extremities x4). Reflexes: 2/4 and symmetric, negative Eldon bilaterally Coordination: FNF intact. No tremors. Sensation: No evidence of neglect. Gait: Slowed, walking with cane Assessment and Plan: ASSESSMENT/PLAN: 1. History of traumatic brain injury - ICD9: V15.52, ICD10: Z87.820 (primary diagnosis) 2. Memory loss - ICD9: 780.93, ICD10: R41.3 3. Balance problem - ICD9: 781.99, ICD10: R26.89 4. SAH (subarachnoid hemorrhage) ([facility]) - ICD9: 430, ICD10: I60.9 5. Frequent falls - ICD9: V15.88, ICD10: R29.6 Patient with repeat head injury when he fell down a flight of stairs sustaining a subarachnoid hemorrhage on 08-11-2023. Patient's concerned over worsening memory since that time. Prior to the fall, patient had had a few falls that were without any significant injury. States that he was doing well before. Denies any neurologic complaints including headaches, dizziness, weakness, vision changes after the fall or subarachnoid hemorrhage. Notes that he is doing well and recovering well. Has stopped physical therapy until cleared by neurosurgery, has an appointment later this month along with repeat imaging. Also has imaging scheduled for his MRI cervical spine due to his persistent weakness. No signs or symptoms of acute cord compression at this time, negative Eldon and symmetric reflexes bilaterally. Discussed red flag signs and symptoms that would warrant additional work-up in the emergency department and patient and are agreeable. Patient's was very concerned about patient's worsening memory after his fall, discussed that this is likely secondary to significant brain injury and memory loss and difficulty with concentration and memory is normal. MoCA today was 16/ compared to previous which was 24. Continue to take Namenda 5 mg twice daily. Will not make any adjustments to medications at this time. Patient's concerned about dementia and wanting further testing, discussed that this may take time to recover due to his history of traumatic brain injury, patient's age and significance of injury. Patient and are agreeable and understand. Should patient's memory continue to be worse than previous, may con fitness sales consultant further neuropsychological testing in the future. Discussed conservative therapies that may be beneficial including rest, optimizing sleep, hydration, etc. Patient and agreeable to treatment plan of care at this time, all questions were answered. Patient to follow-up in 3 months or sooner should any symptoms change or worsen. Jayda Ace PA-C I spent a total of 35 minutes on the date of the service which included preparing to see the patient, [id number] patient care, completing clinical documentation, obtaining and/or reviewing separately obtained history, performing a medically appropriate examination, counseling and educating the pat ient/family/caregiver, and ordering medications, tests, or procedures. This document has been created with the use of voice recognition technology. It may contain inaccuracies: (e.g. misspellings, inaccurate syntax or word sense) that have escaped review. * Oliva Wong LPN - 08/24/2023 11:04 AM EST There is no data to display for this encounter documented in this encounterBarney [facility]-2023 NoteHNO ID: [id number] Author: Oliva Wong LPN Service: ? Author Type: LICENSED NURSE Type: Progress Notes Filed: 08/24/2023 12:34 PM Note Text: There is no data to display for this encounterC[facility]23 NoteHNO ID: [id number] Author: 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 RN Service: ? Author Type: Registered Nurse Type: Progress Notes Filed: 08/20/2023 3:44 PM Note Text: TRANSITION CARE MANAGEMENT (TCM) FOLLOW-UP NOTE Provider Action/FYI TCM Outreach Follow Up: Chart reviewed. Spoke with patient No falls or vomiting No fever or chills No severe headaches No further questions about medications, discharge orders/instructions, self- care, or follow up. TCM will resume follow up next week. Spoke to patient Discharge Network Status: In-Network Discharge Summary: Pt discharged from [facility] on 08/12/23. Admitted for: Subarachnoid hemorrhage Concerns: Denies World Geography Teacher plan for next outreach: Will follow up 1 week JOSEPH Education Ordered -: No Signature 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 RN [facility] History of Present illness Narrative* 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 RN - 08/20/2023 3:40 PM EDT TRANSITION CARE MANAGEMENT (TCM) FOLLOW-UP NOTE Provider Action/FYI TCM Outreach Follow Up: Chart reviewed. Spoke with patient No falls or vomiting No fever or chills No severe headaches No further questions about medications, discharge orders/instructions, self- care, or follow up. TCM will resume follow up next week. Spoke to patient Discharge Network Status: In-Network Discharge Summary: Pt discharged from [facility] on 08/12/23. Admitted for: Subarachnoid hemorrhage Concerns: Denies World Geography Teacher plan for next outreach: Will follow up 1 week JOSEPH Education Ordered -: No Signature 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 RN August 20, 2023 documented in this encounterBarney Children'[facility]11-04-2023 NotePatient Outreach ([facility]) LYRIC PADRON ([id number]) 1955 M Date Time Provider Department 08/20/23 JOSUÉ RAUSCH During your visit today, we recorded the following information about you: 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 RN 08/20/2023 3:44 PM Signed TRANSITION CARE MANAGEMENT (TCM) FOLLOW-UP NOTE Provider Action/FYI TCM Outreach Follow Up: Chart reviewed. Spoke with patient No falls or vomiting No fever or chills No severe headaches No further questions about medications, discharge orders/instructions, self- care, or follow up. TCM will resume follow up next week. Spoke to patient Discharge Network Status: In-Network Discharge Summary: Pt discharged from [facility] on 08/12/23. Admitted for: Subarachnoid hemorrhage Concerns: Denies World Geography Teacher plan for next outreach: Will follow up 1 week JOSEPH Education Ordered -: No Signature 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 RN August 20, 2023 Allergies As of Date: 08/20/2023 (No Known Allergies) Date Reviewed: 08/12/2023 Reviewed by: Riana Kendall RN - Fully Assessed Reason for Visit: Transition Of Care [4074] Cmt: TCM Follow Up Prescriptions as of 08/20/2023 - terazosin (HYTRIN) 5 mg capsule Take 1 capsule by mouth daily at bedtime. - meloxicam (MOBIC) 15 mg tablet Take 1 tablet by mouth once daily. With food. - memantine (NAMENDA) 5 mg tablet Take 1 tablet by mouth twice daily. - minocycline (MINOCIN, DYNACIN) 50 mg capsule Take 1 capsule by mouth twice daily. - pravastatin (PRAVACHOL) 40 mg tablet Take 1 tablet by mouth once daily. - acetaminophen (TYLENOL) 325 mg tablet Take 2 tablets by mouth every 6 hours as needed for Pain. Problem List As Of Date 08/20/2023 Noted Resolved Benign non-nodular prostatic hyperplasia with l*01/01/2008 BLADDER NECK OBSTRUCTION [N32.0] 01/01/2008 Rosacea, Acne [L71.9] 02/09/2010 Pure hypercholesterolemia [E78.00] 02/26/2013 S/P TURP [Z90.79] 10/20/2021 Mild cognitive impairment [G31.84] 06/24/2022 Ataxia, unspecified [R27.0] 06/15/2022 Closed fracture of distal end of fibula [S82.83*12/22/2022 12/22/2022 Closed head injury [S09.90XA] 12/22/2022 Personal history of traumatic brain injury [Z87*06/15/2022 Subarachnoid hemorrhage (HCC) [I60.9] 08/11/2023 Encounter Status:Closed by JOSUÉ RAUSCH on 08/20/23[facility]23 NoteHNO ID: [id number] Author: Luis Raphael RN Service: ? Author Type: Registered Nurse Type: Progress Notes Filed: 08/15/2023 3:11 PM Note Text: TCM Home Visit Referral Source of Stratification: TCM [facility] Admission Status: Discharged Readmission Risk Score: 10 ISABELA Score: 4 Patient meets program referral criteria: No Patient does not qualify for High Risk TCM Home Visit program due to: Discharged home, does not meet program criteria Luis Raphael RN August 15, 2023 11:17 AM TRANSITIONAL CARE MANAGEMENT (TCM) COMMUNITY MONITORING PROGRAM Provider Action/FYI: Spoke to patient. Pt is feeling better. Denies falls. Denies headache. Denies nausea or vomiting. Denies fever or chills. Denies questions or concerns re: medications, self-care, and discharge instructions. Agreeable with recommended plan of care. Call PCP for new/worsening symptoms Appointments for Next 60 Days Date Time Provider Location Dept Phone 08/24/2023 11:15 AM JAYDA ACE [facility] [phone] 09/12/2023 1:15 PM MRI [facility] SWIMMING [facility]ACH [facility] [phone] 09/12/2023 2:[address] [facility] NE[facility]/SPINE [facility] [phone] 09/12/2023 2:45 PM KWADWO SRINIVASAN [facility] [phone] SUMMARY: Discharge Network Status: In-Network Discharge Pt discharged from [facility] on 08/12/23. Admitted for: Subarachnoid hemorrhage SUMMARY OF WHAT HAPPENED WHILE I WAS IN THE HOSPITAL: Patient was admitted following a transfer for an intracranial hemorrhage after a fall down stairs. Repeat imaging was stable. He was evaluated by OT/PT and felt to be stable for home going. He is now stable to be discharged home and should follow up with his PCP. He was evaluated by neurosurgery who recommended repeat CTH and MRI with a follow up in 4 weeks. Transitions of Care Critical Issues: SPECIALIST FOLLOW-UP: Dr. Michaels LABS AND PROCEDURES PENDING AT DISCHARGE: No pending results. Contact made with patient: Yes Hi my name is Luis Raphael RN and I am calling from the [facility] on behalf of your PCP, Geoffrey Adams MD I understand you were recently in the hospital so I am calling to check in with you to ensure you are feeling well now that you're home. May I ask you a few questions related to your hospital stay and well-being? Yes Contact with patient post discharge, spoke to patient. Patient identified by name and . Do you feel your health is BETTER, WORSE, or the SAME since leaving the hospital? Better ACTION TAKEN: Patient indicated symptoms are better or same, no action required. Continue outreach. MEDICATIONS: Many patients have questions or concerns about their medications once they are home. Do you have any questions about taking your medications or which medication you should be on? No Do you need any medication refills at this time, including any of the medications you might take only when needed? No ACTION TAKEN: No action required For RNs or Pharmacy completing outreach ONLY, was a medication review completed? Yes SOCIAL: We would like to make sure you have what you need so that your basics needs are met - including your personal safety, food, housing and medications. Would you like to speak with a social work steam press operator to help give you support for any of these needs? No It can be normal to feel anxious or down during a time like this. Would you like to talk to a mental health professional about how you have been feeling? No ACTION TAKEN: No action taken DISCHARGE INTRUCTIONS: Your discharge instructions / After Visit Summary (AVS) are important in guiding you through the recovery process. Do you have any questions related to your discharge instructions? No Do you have all the necessary equipment and supplies at home? Yes ACTION TAKEN: No action required I would like to help you schedule a hospital follow-up virtual or telephone visit with your PCP. This is a great way for you to connect with your provider to ensure you have safely transitioned home. If you are agreeable, I will send your request to a bender hand who will contact and assist you with that appointment. This will give you an opportunity to ask any questions or address any concerns you may have with your PCP. Inform the patient that if they have any questions or concerns prior to that appointment, to call their PCP's office right away. ACTION TAKEN: No action required, patient already has an appointment scheduled. Your doctor would like us to remind you of the recommendations regarding the coronavirus (Covid19) outbreak: Avoid public places as much as possible. Avoid close contact (within 6 feet) with others you don?t live with, especially if they are sick. Stay home if you are sick. Wash your hands regularly for at least 20 seconds with soap and water. Wear a cloth mask in public places to help reduce community spread. Do not go to your Doctor?s offi (more content not included)...[facility]10-[facility] History of Present illness Narrative* Luis Raphael RN - 08/15/2023 11:17 AM EDT TCM Home Visit Referral Source of Stratification: [facility] Admission Status: Discharged Readmission Risk Score: 10 ISABELA Score: 4 Patient meets program referral criteria: No Patient does not qualify for High Risk TCM Home Visit program due to: Discharged home, does not meet program criteria Luis Raphael RN August 15, 2023 11:17 AM TRANSITIONAL CARE MANAGEMENT (TCM) COMMUNITY MONITORING PROGRAM Provider Action/FYI: Spoke to patient. Pt is feeling better. Denies falls. Denies headache. Denies nausea or vomiting. Denies fever or chills. Denies questions or concerns re: medications, self-care, and discharge instructions. Agreeable with recommended plan of care. Call PCP for new/worsening symptoms Appointments for Next 60 Days Date Time Provider Location Dept Phone 08/24/2023 11:15 AM JAYDA ACE [facility] [phone] 09/12/2023 1:15 PM MRI [facility]SRON SWIMMING COACH [place] [facility] [phone] 09/12/2023 2:[address] [facility] NE[facility]/SPINE [place] [facility] [phone] 09/12/2023 2:45 PM KWADWO SRINIVASAN [place] [facility] [phone] SUMMARY: Discharge Network Status: In-Network Discharge Pt discharged from [facility] on 08/12/23. Admitted for: Subarachnoid hemorrhage SUMMARY OF WHAT HAPPENED WHILE I WAS IN THE HOSPITAL: Patient was admitted following a transfer michael intracranial hemorrhage after a fall down stairs. Repeat imaging was stable. He was evaluated byOT/PT and felt to be stable for home going. He is now stable to be discharged home and should follow up with his PCP. He was evaluated by neurosurgery who recommended repeat CTH and MRI with a followup in 4 weeks. Transitions of Care Critical Issues: SPECIALIST FOLLOW-UP: Dr. Michaels LABS AND PROCEDURES PENDING AT DISCHARGE: No pending results. Contact made with patient: Yes Hi my name is Luis Raphael RN and I am calling from the [facility] on behalf of your PCP, Geoffrey Adams MD I understand you were recently in the hospital so I am calling to check in with you to ensure you are feeling well now that you're home. May I ask you a few questions related to your hospital stay and well-being? Yes Contact with patient post discharge, spoke to patient. Patient identified by name and . Do you feel your health is BETTER, WORSE, or the SAME since leaving the hospital? Better ACTION TAKEN: Patient indicated symptoms are better or same, no action required. Continue outreach. MEDICATIONS: Many patients have questions or concerns about their medications once they are home. Do you have any questions about taking your medications or which medication you should be on? No Do you need any medication refills at this time, including any of the medications you might take only when needed? No ACTION TAKEN: No action required For RNs or Pharmacy completing outreach ONLY, was a medication review completed? Yes SOCIAL: We would like to make sure you have what you need so that your basics needs are met - including your personal safety, food, housing and medications. Would you like to speak with a social work steam press operator to help give you support for any of these needs? No It can be normal to feel anxious or down during a time like this. Would you like to talk to a mental health professional about how you have been feeling? No ACTION TAKEN: No action taken DISCHARGE INTRUCTIONS: Your discharge instructions / After Visit Summary (AVS) are important in guiding you through the recovery process. Do you have any questions related to your discharge instructions? No Do you have all the necessary equipment and supplies at home? Yes ACTION TAKEN: No action required I would like to help you schedule a hospital follow-up virtual or telephone visit with your PCP. This is a great way for you to connect with your provider to ensure you have safely transitioned home.If you are agreeable, I will send your request to a bender hand who will contact and assist you with that appointment. This will give you an opportunity to ask any questions or address any concerns youmay have with your PCP. Inform the patient that if they have any questions or concerns prior to that appointment, to call their PCP's office right away. ACTION TAKEN: No action required, patient already has an appointment scheduled. Your doctor would like us to remind you of the recommendations regarding the coronavirus (Covid19) outbreak: Avoid public places as much as possible. Avoid close contact (within 6 feet) with others you don t live with, especially if they are sick. Stay home if you are sick. Wash your hands regularly for at least 20 seconds with soap and water. Wear a cloth mask in public places to help reduce community spread. Do not go to your Doctor s office unless instructed to do so. For any non- emergency symptoms, call your Doctor s office to get instructions on how to manage (we might recommend a telephone or virtualvisit). For emergency symptoms, proceed to Emergency Department as usual but inform them of cough and fever symptoms DONALD if present (or call on the way if possible). JOSEPH Education Ordered -: No Luis Raphael RN documented in this encounterBarney Children'S [facility]10-30-2023 NotePatient Outreach ([facility]) LYRIC PADRON ([id number]) 1955 M Date Time Provider Department 08/15/23 LUIS RAPHAELCMSherine During your visit today, we recorded the following information about you: Luis Raphael RN 08/15/2023 3:11 PM Signed TCM Home Visit Referral Source of Stratification: [facility] Admission Status: Discharged Readmission Risk Score: 10 ISABELA Score: 4 Patient meets program referral criteria: No Patient does not qualify for High Risk TCM Home Visit program due to: Discharged home, does not meet program criteria Luis Raphael RN August 15, 2023 11:17 AM TRANSITIONAL CARE MANAGEMENT (TCM) COMMUNITY MONITORING PROGRAM Provider Action/FYI: Spoke to patient. Pt is feeling better. Denies falls. Denies headache. Denies nausea or vomiting. Denies fever or chills. Denies questions or concerns re: medications, self-care, and discharge instructions. Agreeable with recommended plan of care. Call PCP for new/worsening symptoms Appointments for Next 60 Days Date Time Provider Location Dept Phone 08/24/2023 11:15 AM JAYDA ACE [facility] [phone] 09/12/2023 1:15 PM MRI [facility]SRON SWIMMING COACH [facility] [phone] 09/12/2023 2:[address] [facility] NEUR/SPINE [facility] [phone] 09/12/2023 2:45 PM KWADWO SRINIVASAN [facility] [phone] SUMMARY: Discharge Network Status: In-Network Discharge Pt discharged from [facility] on 08/12/23. Admitted for: Subarachnoid hemorrhage SUMMARY OF WHAT HAPPENED WHILE I WAS IN THE HOSPITAL: Patient was admitted following a transfer for an intracranial hemorrhage after a fall down stairs. Repeat imaging was stable. He was evaluated by OT/PT and felt to be stable for home going. He is now stable to be discharged home and should follow up with his PCP. He was evaluated by neurosurgery who recommended repeat CTH and MRI with a follow up in 4 weeks. Transitions of Care Critical Issues: SPECIALIST FOLLOW-UP: Dr. Michaels LABS AND PROCEDURES PENDING AT DISCHARGE: No pending results. Contact made with patient: Yes Hi my name is Luis Raphael RN and I am calling from the [facility] on behalf of your PCP, Geoffrey Adams MD I understand you were recently in the hospital so I am calling to check in with you to ensure you are feeling well now that you're home. May I ask you a few questions related to your hospital stay and well-being? Yes Contact with patient post discharge, spoke to patient. Patient identified by name and . Do you feel your health is BETTER, WORSE, or the SAME since leaving the hospital? Better ACTION TAKEN: Patient indicated symptoms are better or same, no action required. Continue outreach. MEDICATIONS: Many patients have questions or concerns about their medications once they are home. Do you have any questions about taking your medications or which medication you should be on? No Do you need any medication refills at this time, including any of the medications you might take only when needed? No ACTION TAKEN: No action required For RNs or Pharmacy completing outreach ONLY, was a medication review completed? Yes SOCIAL: We would like to make sure you have what you need so that your basics needs are met - including your personal safety, food, housing and medications. Would you like to speak with a social work steam press operator to help give you support for any of these needs? No It can be normal to feel anxious or down during a time like this. Would you like to talk to a mental health professional about how you have been feeling? No ACTION TAKEN: No action taken DISCHARGE INTRUCTIONS: Your discharge instructions / After Visit Summary (AVS) are important in guiding you through the recovery process. Do you have any questions related to your discharge instructions? No Do you have all the necessary equipment and supplies at home? Yes ACTION TAKEN: No action required I would like to help you schedule a hospital follow-up virtual or telephone visit with your PCP. This is a great way for you to connect with your provider to ensure you have safely transitioned home. If you are agreeable, I will send your request to a bender hand who will contact and assist you with that appointment. This will give you an opportunity to ask any questions or address any concerns you may have with your PCP. Inform the patient that if they have any questions or concerns prior to that appointment, to call their PCP's office right away. ACTION TAKEN: No action required, patient already has an appointment scheduled. Your doctor would like us to remind you of the recommendations regarding the coronavirus (Covid19) outbreak: Avoid public places as much as possible. Avoid close contact (within 6 feet) with others you don?t live with, especially if they are sick. Stay home if you (more content not included)...[facility] 08-12-2023 NoteHNO ID: [id number] Author: Lawrence Live DO Service: General Surgery Author Type: Resident Type: Progress Notes Filed: 08/12/2023 9:06 AM Note Text: Attestation signed by Josué Rodriguez MD at 08/24/2023 12:07 PM Attending Note I personally saw and examined the patient. I reviewed the resident's note. I agree with the resident's assessment and plan unless otherwise noted. Signature: Josué Rodriguez MD Trauma Surgery Progress Note SERVICE DATE: 08/12/2023 Trauma Service Pager: For questions or concerns Mon-Fri 6a-5p please page [phone]. After 5pm and on Weekends and Holidays, please page [phone] if in ICU or [phone] if on RNF. SUBJECTIVE: Seen this morning resting comfortably in bed. Afebrile he will be stable on room air. Denies any pain, numbness, tingling, paresthesias. Repeat CT brain stable. No complaints this morning. OBJECTIVE: Vitals: Temp (24hrs), Av.9 ?C (98.4 ?F), Min:36.8 ?C (98.2 ?F), Max:37 ?C (98.6 ?F) BP 106/62 Pulse 90 Temp 36.8 ?C (98.2 ?F) (Oral) Resp 18 Ht 167.6 cm (5' 6 ) Wt 70 kg (154 lb 5.2 oz) SpO2 94% BMI 24.91 kg/m? O2 Therapy: Room Air IANDO: MEDICATIONS: Current Facility-Administered Medications Medication Dose Route Frequency NaCl 0.9% iv flush bag 20 mL INTRAVENOUS PRN sodium chloride 0.65 % 2 [place] 2 [place] EACH NOSTRIL PRN memantine 5 mg tab(s) (NAMENDA) 5 mg ORAL BID pravastatin 40 mg tab(s) (PRAVACHOL) 40 mg ORAL DAILY ondansetron 4 mg tab(s) (ZOFRAN) 4 mg ORAL q 6 H PRN Or ondansetron (PF) 4 mg injection (ZOFRAN) 4 mg INTRAVENOUS q 6 H PRN acetaminophen 975 mg tab(s) (TYLENOL) 975 mg ORAL q 6 H PRN doxazosin 4 mg tab(s) (CARDURA) 4 mg ORAL/FEEDING TUBE AT BEDTIME Labs: Recent Labs 08/12/23 0259 08/11/23 0637 08/11/23 0636 NA 139 140 -- K 3.8 4.4 -- CHLOR 106* 107* -- CO2 21* 21* -- BUN 10 13 -- CREAT 0.84 0.88 -- GLUC 104* 125* -- ANION 12 12 -- CA 9.0 8.9 -- ALB -- 3.8* -- ALT -- 12 -- ALKPHOS -- 82 -- TBILI -- 0.4 -- WBC 11.83* -- 12.87* HB 14.0 -- 14.3 HCT 41.5 -- 41.7 PLT 211 -- 250 INR -- -- 0.9 Physical Exam: General: No acute distress. HEENT: Right posterolateral scalp laceration approximated with absorbable suture. CV: RR, normotensive, good capillary refill. Respiratory: Unlabored breathing on room air, equal chest rise bilaterally. Abdomen: Soft, nondistended, NTP, no rebound, guarding. Neuro: CNII-XII grossly intact, sensorimotor function grossly intact. Heme: No bleeding, no ecchymoses. Skin: Skin warm and dry. EXT: AROM grossly wnl in all four extremities. ASSESSMENT AND PLAN: Assessment Active Hospital Problems Diagnosis Date Noted Subarachnoid hemorrhage (HCC) 08/11/2023 Assessment: 68 year old male s/p GLF Imaging performed: CTHN, CXR, PXR Traumatic Injuries: Subarachnoid hemorrhage Scalp laceration Operations/Procedures: 1. Repair of scalp laceration Care Plan: SAH NSGY following: Nonsurgical management, follow-up outpatient with [facility] in 4 weeks. Outpatient MRI c-spine for hyperreflexia. Resume home Cardura, Namenda, pravastatin. Awaiting PT/OT, speech-language pathology. Current diet order: Regular Pain regimen: tylenol Bowel regimen: none Labs: DC labs PPX: DVT: hold DVT ppx Ulcer: none Vit D level if > 65 yo: yes Consulted Services: NSGY Dispo Planning: PT/OT recs TBD. Case management following. Incidentals: None Follow Up Needs: TBD Assessment and plan discussed with Staff Trauma Attending Surgeon: Dr. Rodriguez. SIGNATURE: Lawrence Live DO PATIENT NAME: yLric Padron DATE: 08/12/2023 TIME: 9:02 AM Pager: see below Trauma Service Pager: For questions or concerns Mon-Fri 6a-5p please page [phone]. After 5pm and on Weekends and Holidays, please page [phone] if in ICU or [phone] if on RNF.[facility]10-27-2023 NoteHNO ID: [id number] Author: Melanie Chung PA-C Service: Neurosurgery Author Type: Physician Set Up Mechanic [employer] Machine Type: Progress Notes Filed: 08/12/2023 8:54 AM Note Text: Neurosurgery Progress Note SERVICE DATE: 08/12/2023 SUBJECTIVE: NAEON. Patient denies complaints of headache, visual changes, focal motor weakness, n/v. OBJECTIVE: Vitals: Temp (24hrs), Av.9 ?C (98.4 ?F), Min:36.8 ?C (98.2 ?F), Max:37 ?C (98.6 ?F) BP 106/62 Pulse 90 Temp 36.8 ?C (98.2 ?F) (Oral) Resp 18 Ht 167.6 cm (5' 6 ) Wt 70 kg (154 lb 5.2 oz) SpO2 94% BMI 24.91 kg/m? O2 Therapy: Room Air MEDICATIONS Current Facility-Administered Medications Medication Dose Route Frequency NaCl 0.9% iv flush bag 20 mL INTRAVENOUS PRN sodium chloride 0.65 % 2 [place] 2 [place] EACH NOSTRIL PRN memantine 5 mg tab(s) (NAMENDA) 5 mg ORAL BID pravastatin 40 mg tab(s) (PRAVACHOL) 40 mg ORAL DAILY ondansetron 4 mg tab(s) (ZOFRAN) 4 mg ORAL q 6 H PRN Or ondansetron (PF) 4 mg injection (ZOFRAN) 4 mg INTRAVENOUS q 6 H PRN acetaminophen 975 mg tab(s) (TYLENOL) 975 mg ORAL q 6 H PRN doxazosin 4 mg tab(s) (CARDURA) 4 mg ORAL/FEEDING TUBE AT BEDTIME Labs: Recent Labs 08/12/23 0259 08/11/23 0637 08/11/23 0636 NA 139 140 -- K 3.8 4.4 -- CHLOR 106* 107* -- CO2 21* 21* -- BUN 10 13 -- CREAT 0.84 0.88 -- GLUC 104* 125* -- ANION 12 12 -- CA 9.0 8.9 -- ALB -- 3.8* -- ALT -- 12 -- ALKPHOS -- 82 -- TBILI -- 0.4 -- WBC 11.83* -- 12.87* HB 14.0 -- 14.3 HCT 41.5 -- 41.7 PLT 211 -- 250 INR -- -- 0.9 Exam: GENERAL: Awake and alert; NAD; cooperative; pleasant NEURO: Orientedx3; speech clear and fluent; MINER; no arm drift STRENGTH: 5/5 throughout REFLEXES: +Campoverde's bilaterally HEENT: Normocephalic; perrl/eomi; no facial droop LUNGS: Unlabored breathing CARDIAC: Rate and rhythm as above ABDOMEN: Soft, non-tender, non-distended EXTREMITIES: No deformities, No edema SKIN: Skin color normal; Temperature normal; no rashes or lesions ASSESSMENT AND PLAN: Mr. Padron is a 68 year old male admitted following GLF, found to have small tSAH. -Neuro as above -Imaging: NNI, repeat CTH stable 08/11 -Nonsurgical management of tSAH -Plan for outpatient neurosurgical follow up with repeat CTH in 4 weeks; will also evaluate patient's findings of hyper-reflexia and positive Campoverde's with MRI of the cervical spine without contrast outpatient -SCDs for DVT ppx; okay for chemo ppx 48 hours after stable scan -Neurosurgery will sign off; reach out with questions as needed Parts of this note may have been copied from one of my previous notes and remain pertinent. The documentation has been reviewed and edited as necessary to support the clinical decision making for today's visit. SIGNATURE: Melanie Chung PA-C PATIENT NAME: Lyric Padron DATE: August 12, 2023 TIME: 7:27 AM [phone] NoteHNO ID: [id number] Author: Lawrence Live DO Service: General Surgery Author Type: Resident Type: Procedures Filed: 08/11/2023 8:00 AM Note Text: BEDSIDE PROCEDURE NOTE WOUND REPAIR Performed by: Lawrence Live DO Authorized by: Josué Rodriguez MD Date/Start Time: 08/11/2023 7:58 AM Where was Patient When this Procedure was Performed Bedside/Unscheduled Procedure Room This procedure has been performed by a resident/fellow without an attending's supervision Informed Consent Consent Obtained: Verbal Steward Protocol SIGN IN TIME OUT Pre-procedure Details: The area was prepped with chlorhexidine (Chloroprep) and allowed to dry. A sterile partial body drape was applied following the usual aseptic technique. Medications: Local Anesthesia (see MAR): Lidocaine 1% Procedure Details: Number of Wounds: 1 Wound 1 Type: Laceration Body Area: Head Location Details: Scalp Location Details: Scalp Measurements: Wound Length (cm): 3 Wound Width (cm): 1 Debridement Layer: dermis Wound Age (days): <1 Mechanism of Injury: Fall Irrigation Solution: Normal saline under pressure Foreign Body: No Suture Type: Absorbable Suture Technique: Simple interrupted Number of Sutures: 7 Approximation: Adequate Measurements: Tetanus Status: Less than 5 years Post-procedure Details: Patient tolerated the procedure well with no immediate complications Estimated Blood Loss: scant Specimens Sent: none SIGNATURE: Lawrence Live DO PATIENT NAME: Lyric Padron DATE: August 11, 2023 TIME: 7:58 AM[facility] Instructions* Patient Instructions* Josefa Jacobs PA-C - 07/26/2023 1:37 PM EDT > 1 year Appt w/ B. MANJIT Jacobs, SABINA SRINIVASAN with PSA prior > Refilled Hytrin > Renal Function and PSA labs reviewed documented in this encounterBarney [facility]10-[facility] History of Present illness Narrative* RemiRuth [place] - 07/26/2023 1:03 PM EDT Verified name and date of . CC Post Void Residual HPI: Lyric Padron is a 68 year old male. The patient is here now for an appointment with MANJIT Montgomery, JONA SRINIVASAN. Procedure: Explained procedure to patient and verbalizes understanding. Performed a PVR. Patient urinated and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 BP 110/72 Pulse 91 Resp 16 SpO2 93% PHYSICAL EXAM: General Appearance: Well appearing, alert, in no acute distress, well-hydrated, well nourished.. Skin: Skin color, texture, turgor normal, no suspicious rashes or lesions. Head: Normocephalic, no masses, lesions, tenderness or abnormalities. Eyes: Anicteric sclera. Extraocular movements are intact. . Lungs: Lungs clear to auscultation. No wheezing, rhonchi, rales.. Heart: RRR without murmur, gallop, or rubs. No ectopy. Neurologic: Gait normal. ASSESSMENT/PLAN: 1. Renal lesion - ICD9: 593.9, ICD10: N28.9 (primary diagnosis) Will get ultrasound to look at renal lesions. Follow-up pending results. - US KIDNEY/BLADDER 2. Flank pain - ICD9: 789.09, ICD10: R10.9 Urine dip negative. Suspect musculoskeletal. - UA DIP, URINE (POC) 3. DDD (degenerative disc disease), lumbar - ICD9: 722.52, ICD10: M51.36 - MELOXICAM 15 MG TABLET - STANDARD WHEELCHAIR 4. Spinal stenosis of lumbar region, unspecified whether neurogenic claudication present - ICD9: 724.02, ICD10: M48.061 Trial of meloxicam. Encouraged to take with food. - MELOXICAM 15 MG TABLET - STANDARD WHEELCHAIR 5. Weakness of right lower extremity - ICD9: 729.89, ICD10: R29.898 - STANDARD WHEELCHAIR 6. Weakness of both lower extremities - ICD9: 729.89, ICD10: R29.898 - STANDARD WHEELCHAIR 7. Ataxia - ICD9: 781.3, ICD10: R27.0 - STANDARD WHEELCHAIR Discussed treatment plan and patient voices understanding. Patient's questions answered appropriately. Medications and potential side effects were discussed and patient voices understanding. Return to the office as scheduled or as needed for worsening/no improvement. Fidelina Rosas APRN.SAMARIA documented in this encounterBarney Children'[facility]06-28-2023 Miscellaneous Notes* Telephone Encounter - Oliva Wong LPN - 04/13/2023 11:36 AM EDT TC to pt who voices understanding. Please assist pt in scheduling with spine medicine and a follow up with Dr. Adams to review lesion on kidney. Oliva Wong LPN * Telephone Encounter - Oliva Wong LPN - 04/13/2023 11:24 AM EDT ----- Message from Ashley Ewing APRN.CNP sent at 04/13/2023 9:35 AM EDT ----- MRI of lumbar spine noting varying levels of mild to severe changes. Would like him to see spine medicine for further evaluation. Consult has been placed. In addition, the imaging noted a lesion within the left kidney. Per the report it may be a benign cyst, however, please have him follow up with his PCP to discuss this finding and determine if further testing is needed. * Telephone Encounter - Oliva Wong LPN - 04/13/2023 11:22 AM EDT ----- Message from Ashley Ewing APRN.CNP sent at 04/13/2023 7:10 AM EDT ----- Please let the patient know that his EMG is normal. Will await results of his MRI L spine as well as lab work before determining further POC. documented in this encounterBarney Children'S [facility] Center06-27-2023 History of Present illness Narrative* Olivier Verduzco RT(R) - 04/12/2023 10:30 AM EDT Radiology Service Progress Note PATIENT NAME: Lyric Padron DATE OF SERVICE: April 12, 2023 TIME: 2:37 PM PATIENT IDENTITY VERIFICATION COMPLETED USING TWO (2) IDENTIFIERS: Name and Date of confirmedby patient verbally. FALL SCREENING: Has the patient had 2 falls in the last year or 1 fall with injury or currently using an Ambulatory Assistive Device (Walker, Cane, Wheelchair, Crutches, etc.)? No PATIENT GENDER DATA: Male PATIENT RELEVANT IMPLANT DATA REVIEWED: Yes RADIOLOGY DEPARTMENT: MR; Exam(s) Completed: Spine: Lumbar spine PERIPHERAL IV DATA: Not applicable SIGNED BY: RT Geo(R) April 12, 2023 2:37 PM documented in this encounterBarney Children'S [facility] Center06-21-2023 Miscellaneous Notes* Telephone Encounter - Rosi Kulkarni RN - 04/06/2023 11:52 AM EDT Marisela returns call. Message reviewed. Marisela verbalizes understanding. Transferred to schedule MRI and EMG. Rosi Kulkarni RN * Telephone Encounter - Oliva Wong LPN - 04/06/2023 11:21 AM EDT TC to Marisela with no answer left VM to return call. Please see message below and transfer to [facility] for scheduling. Oliva Wong LPN * Telephone Encounter - Ashley Ewing APRN.BILL RECAPITULATION CLERK - 04/06/2023 11:17 AM EDT EMG ordered. I also placed an order for an MRI of the lumbar spine as well given hx of degenerativedisc disease of lumbar spine. Lastly, I placed one lab to be drawn (CK) to assess for muscle breakdown. Can be completed at any F location. * Telephone Encounter - Ruth Velasco LPN - 04/06/2023 10:42 AM EDT Pt's spouse Marisela states neuro was going to order some testing to check muscle weakness in legs ifhis CT came back normal - EMG/NCV? Marisela asking if this will be ordered now? reports pt is declining. Pt was to FU in Jun but thinks that is too far off. Please advise. Ruth Velasco LPN documented in this encounterBarney Children'S [facility] Center06-02-2023 Miscellaneous Notes* Telephone Encounter - Almas Burris RN - 03/18/2023 12:40 PM EDT Phoned patient and given provider's message below with verbalized understanding. * Telephone Encounter - Fidelina Rosas APRN.CNP - 03/18/2023 12:[address] did not show any concerning findings. There is a calcified granuloma (likely from old infection/scarring) which is not concerning and will not turn into anything bad. The circulation test was normal. It looks like from the last vascular note, they were to let neurology know if the vascular testing was normal and to consider further testing with EMG/NCV. * Telephone Encounter - Alice Hurd LPN - 03/18/2023 10:59 AM EDT Patient calling, would like results of CT scan. Patient also asking if a more invasive test will be done to check his circulation. Please advise. documented in this encounterBarney Children'S [facility] Center05-26-2023 History of Present illness Narrative* Ruth Cagle RT(R) - 03/11/2023 3:20 PM EDT Radiology Service Progress Note PATIENT NAME: Lyric Padron DATE OF SERVICE: March 11, 2023 TIME: 3:51 PM PATIENT IDENTITY VERIFICATION COMPLETED USING TWO (2) IDENTIFIERS: Name and Date of confirmedby patient verbally. FALL SCREENING: Has the patient had 2 falls in the last year or 1 fall with injury or currently using an Ambulatory Assistive Device (Walker, Cane, Wheelchair, Crutches, etc.)? No PATIENT GENDER DATA: Male PATIENT RELEVANT IMPLANT DATA REVIEWED: Yes RADIOLOGY DEPARTMENT: CT; Exam(s) Completed: Chest PERIPHERAL IV DATA: Not applicable SIGNED BY: RT Mars(R) March 11, 2023 3:51 PM documented in this encounterBarney Children'S [facility] Center05-16-2023 History of Present illness Narrative* Chelsie Hawkins RT(R) - 03/01/2023 2:30 PM EDT Radiology Service Progress Note PATIENT NAME: Lyric Padron DATE OF SERVICE: March 01, 2023 TIME: 2:21 PM PATIENT IDENTITY VERIFICATION COMPLETED USING TWO (2) IDENTIFIERS: Name and Date of confirmedby patient verbally. FALL SCREENING: Has the patient had 2 falls in the last year or 1 fall with injury or currently using an Ambulatory Assistive Device (Walker, Cane, Wheelchair, Crutches, etc.)? No PATIENT GENDER DATA: Male PATIENT RELEVANT IMPLANT DATA REVIEWED: Yes RADIOLOGY DEPARTMENT: General X-ray: Exam(s) Completed: Chest X-Ray PERIPHERAL IV DATA: Not applicable SIGNED BY: RT Jacob(R) March 01, 2023 2:21 PM documented in this encounterBarney Children'S Medical Center05-16-2023 Instructions* Patient Instructions* Fidelina Rosas APRN.SAMARIA - 03/01/2023 1:48 PM EDT Get labs. Schedule leg ultrasound. Do stool for hidden blood. Get chest xray. Add an ensure or carnation instant breakfast daily. documented in this encounterBarney Children'S Medical Center05-16-2023 History of Present illness Narrative* Fidelina Rosas APRN.SAMARIA - 03/01/2023 1:05 PM EDT This is a 67 year old male who presents today with: Patient presents with: Musculoskeletal Problem: Trouble standing after standing for 10-15 minutes, just in legs, legs get weak HISTORY OF PRESENT ILLNESS: Lyric Padron is a 67 year old male. Patient presents with: Musculoskeletal Problem: Trouble standing after standing for 10-15 minutes, just in legs, legs get weak Pt presents today with complaint of trouble standing. Refers that he can't stand longer than 10-15 minutes. reports that she has noticed it over the past month. Refers that his balance has been a little bit better. Refers that breathing has been okay. No chest pains/palpitations. Pt is a smoker. Smokes 1/2 ppd. Feels like he is having some lower back pain. No n/t in the legs. No pain in the legs. No loss of bowel/bladder. Doesn't take anything for the back pain. Weight loss. Weight down 11 pounds in the last 2 months. Refers that he is eating. Denies any recent sickness. He supplements with one ensure daily. PAST MEDICAL HISTORY: PAST MEDICAL HISTORY Diagnosis Date Arthritis Rosacea PAST SURGICAL HISTORY Procedure Laterality Date PAST SURGICAL HISTORY OF flexible cystoscopy PAST SURGICAL HISTORY OF 1959 tonsillectomy PAST SURGICAL HISTORY OF 2018 left eye surgery TRANSURETHRAL ELEC-SURG PROSTATECTOM N/A 08/18/2021 ALLERGIES Patient has no known allergies. MEDICATIONS Current Outpatient Medications Medication Sig memantine (NAMENDA) 5 mg tablet Take 1 tablet by mouth twice daily. terazosin (HYTRIN) 5 mg capsule Take 1 capsule by mouth daily at bedtime. pravastatin (PRAVACHOL) 40 mg tablet Take 1 tablet by mouth once daily. acetaminophen (TYLENOL) 325 mg tablet Take 2 tablets by mouth every 6 hours as needed for Pain. No current facility-administered medications for this visit. FAMILY HISTORY Problem Relation Age of Onset Arthritis Mother Cancer Mother melanoma Heart Mother Viral myocarditis. GI Father ulcers Social History Tobacco Use Smoking status: Former Years: 20.00 Types: Cigarettes Smokeless tobacco: Former Tobacco comments: occasionally will have a cigarette Vaping Use Vaping Use: Never used Substance Use Topics Alcohol use: No Drug use: No EXAM: BP 110/64 Pulse 82 Resp 16 Wt 67.1 kg (148 lb) SpO2 97% BMI 24.63 kg/m PHYSICAL EXAM: General Appearance: Well appearing, alert, in no acute distress, well-hydrated, well nourished.. Skin: Skin color, texture, turgor normal, no suspicious rashes or lesions. Head: Normocephalic, no masses, lesions, tenderness or abnormalities. Eyes: Anicteric sclera. Extraocular movements are intact. . Neck: Supple, no adenopathy; thyroid symmetric, normal size, no bruits. Lungs: occ exp wheeze. Heart: RRR without murmur, gallop, or rubs. No ectopy. Extremities: No deformities, edema, skin discoloration, clubbing or cyanosis. Good capillary refill. Fleeting pedal pulses in the left foot. +1 in the right foot. ASSESSMENT/PLAN: 1. Weight loss - ICD9: 783.21, ICD10: R63.4 (primary diagnosis) ? If he is having worsening leg weakness related to the weight loss. Continue the ensure supplementation, in addition to meals. Add a second ensure daily, or a carnation instant breakfast. Get labs. Get ifob. Get chest xray. - CBC + DIFF - TSH BLD - COMP METABOLIC PANEL - HGB A1C - URINALYSIS, WITH MICROSCOPIC - C-REACTIVE PROTEIN (CRP) - XR CHEST 2V FRONTAL/LAT - FECAL OCCULT BLOOD TEST - T4 FREE/FREE THYROX - VITAMIN D 25 HYDROXY - PSA/PROSTSPECAG SCRN - SED RATE WESTERGREN 2. Rosacea, acne - ICD9: 695.3, ICD10: L71.9 - MINOCYCLINE 50 MG CAPSULE 3. Pure hypercholesterolemia - ICD9: 272.0, ICD10: E78.00 - PRAVASTATIN 40 MG TABLET 4. Weakness of both lower extremities - ICD9: 729.89, ICD10: R29.898 Since fleeting pulses, will get so to r/o vascular. - PVR ANK PRESS DANIELLE VAS LAB - SED RATE WESTERGREN - URINE CULTURE Discussed treatment plan and patient voices understanding. Patient's questions answered appropriately. Medications and potential side effects were discussed and patient voices understanding. Return to the office as scheduled or as needed for worsening/no improvement. Fidelina Rosas APRN.BILL RECAPITULATION CLERK documented in this encounterBarney Children'S Medical Center04-04-2023 Miscellaneous Notes* Telephone Encounter - Rosana Yu LPN - 01/18/2023 4:29 PM EDT TC to patient per providers request letting him know script for Nemenda was sent into pharmacy. Verbalized understanding. Rosana Yu LPN * Telephone Encounter - Nica Marin RN - 01/18/2023 2:29 PM EDT Please call patient once script has been sent to pharmacy. Script pended below. Thank you. * Telephone Encounter - Nica Marin RN - 01/18/2023 2:25 PM EDT Medication refill requested by Patient Please review and advise. Requested Prescriptions Pending Prescriptions Disp Refills memantine (NAMENDA) 5 mg tablet 60 tablet 2 Sig: Take 1 tablet by mouth twice daily. Last encounter with this provider: 12/22/2022 Next appt: 07/01/2023 Allergies: No Known Allergies Last 1 Encounter BP Readings: Date: BP: 12/22/2022 116/86 WBC (k/uL) Date Value 05/03/2022 8.54 Hemoglobin (g/dL) Date Value 05/03/2022 16.4 Platelet Count (k/uL) Date Value 05/03/2022 269 Glucose (mg/dL) Date Value 05/03/2022 102 (H) BUN (mg/dL) Date Value 05/03/2022 10 Creatinine (mg/dL) Date Value 05/03/2022 0.83 Sodium (mmol/L) Date Value 05/03/2022 138 Potassium (mmol/L) Date Value 05/03/2022 4.6 Calcium, Total (mg/dL) Date Value 05/03/2022 10.0 Alkaline Phosphatase (U/L) Date Value 05/03/2022 83 Bilirubin, Total (mg/dL) Date Value 05/03/2022 0.6 AST (U/L) Date Value 05/03/2022 21 ALT (U/L) Date Value 05/03/2022 16 Cholesterol, Total (mg/dL) Date Value 05/03/2022 181 Triglyceride (mg/dL) Date Value 05/03/2022 89 TSH (mIU/L) Date Value 05/03/2022 2.620 Current Outpatient Medications on File Prior to Visit Medication Sig metroNIDAZOLE (METROGEL) 0.75 % Topical Gel Apply to affected area twice daily. APPLY TO AFFECTED AREAS of ROSACEA TWICE DAILy terazosin (HYTRIN) 5 mg capsule Take 1 capsule by mouth daily at bedtime. pravastatin (PRAVACHOL) 40 mg tablet Take 1 tablet by mouth once daily. acetaminophen (TYLENOL) 325 mg tablet Take 2 tablets by mouth every 6 hours as needed for Pain. Nica Marin RN documented in this encounterBarney Children'S [facility] Center03-08-2023 History of Past illness Narrative* Problem Noted Date Resolved Date Closed fracture of distal end of fibula 12/23/19 23 12/22/2022 documented as of this encounter (statuses as of 01/19/2023) [facility] of Past illness Narrative* Problem Noted Date Resolved Date Closed fracture of distal end of fibula 12/23/19 23 12/22/2022 documented as of this encounter (statuses as of 03/02/2023) [facility] of Past illness Narrative* Problem Noted Date Resolved Date Closed fracture of distal end of fibula 12/23/19 23 12/22/2022 documented as of this encounter (statuses as of 03/18/2023) [address]08-2023 History of Past illness Narrative* Problem Noted Date Resolved Date Closed fracture of distal end of fibula 12/23/19 23 12/22/2022 documented as of this encounter (statuses as of 04/06/2023) [address]08-2023 History of Past illness Narrative* Problem Noted Date Resolved Date Closed fracture of distal end of fibula 12/23/19 23 12/22/2022 documented as of this encounter (statuses as of 04/13/2023) [address]08-2023 History of Past illness Narrative* Problem Noted Date Resolved Date Closed fracture of distal end of fibula 12/23/19 23 12/22/2022 documented as of this encounter (statuses as of 04/13/2023) [address]08-2023 History of Past illness Narrative* Problem Noted Date Resolved Date Closed fracture of distal end of fibula 12/23/19 23 12/22/2022 documented as of this encounter (statuses as of 04/21/2023) [address]-2023 History of Past illness Narrative* Problem Noted Date Resolved Date Closed fracture of distal end of fibula 12/23/19 23 12/22/2022 documented as of this encounter (statuses as of 04/21/2023) [address]-2023 History of Past illness Narrative* Problem Noted Date Resolved Date Closed fracture of distal end of fibula 12/23/19 23 12/22/2022 documented as of this encounter (statuses as of 04/22/2023) [address]08-2023 History of Past illness Narrative* Problem Noted Date Diagnosed Date Resolved Date Closed fracture of distal end of fibula 12/22/2022 12/22/2022 documented as of this encounter (statuses as of 05/23/2023) [address]-2023 History of Past illness Narrative* Problem Noted Date Diagnosed Date Resolved Date Closed fracture of distal end of fibula 12/22/2022 12/22/2022 documented as of this encounter (statuses as of 05/26/2023) [address]-2023 History of Past illness Narrative* Problem Noted Date Diagnosed Date Resolved Date Closed fracture of distal end of fibula 12/22/2022 12/22/2022 documented as of this encounter (statuses as of 07/01/2023) [facility] Narrative* Problem Noted Date Diagnosed Date Resolved Date Closed fracture of distal end of fibula 12/22/2022 12/22/2022 documented as of this encounter (statuses as of 07/13/2023) [facility] illness Narrative* Problem Noted Date Diagnosed Date Resolved Date Closed fracture of distal end of fibula 12/22/2022 12/22/2022 documented as of this encounter (statuses as of 07/27/2023) [facility] illness Narrative* Problem Noted Date Diagnosed Date Resolved Date Closed fracture of distal end of fibula 12/22/2022 12/22/2022 documented as of this encounter (statuses as of 08/12/2023) [facility] illness Narrative* Problem Noted Date Diagnosed Date Resolved Date Closed fracture of distal end of fibula 12/22/2022 12/22/2022 documented as of this encounter (statuses as of 08/16/2023) [facility] illness Narrative* Problem Noted Date Diagnosed Date Resolved Date Closed fracture of distal end of fibula 12/22/2022 12/22/2022 documented as of this encounter (statuses as of 08/21/2023) [facility]03-08-2023 History of Past illness Narrative* Problem Noted Date Diagnosed Date Resolved Date Closed fracture of distal end of fibula 12/22/2022 12/22/2022 documented as of this encounter (statuses as of 08/21/2023) [facility]03-08-2023 History of Past illness Narrative* Problem Noted Date Diagnosed Date Resolved Date Closed fracture of distal end of fibula 12/22/2022 12/22/2022 documented as of this encounter (statuses as of 08/21/2023) [facility]03-08-2023 History of Past illness Narrative* Problem Noted Date Diagnosed Date Resolved Date Closed fracture of distal end of fibula 12/22/2022 12/22/2022 documented as of this encounter (statuses as of 08/25/2023) [address]-2023 History of Past illness Narrative* Problem Noted Date Diagnosed Date Resolved Date Closed fracture of distal end of fibula 12/22/2022 12/22/2022 documented as of this encounter (statuses as of 08/27/2023) [address]-2023 History of Past illness Narrative* Problem Noted Date Diagnosed Date Resolved Date Closed fracture of distal end of fibula 12/22/2022 12/22/2022 documented as of this encounter (statuses as of 09/19/2023) [address]-2023 History of Past illness Narrative* Problem Noted Date Diagnosed Date Resolved Date Closed fracture of distal end of fibula 12/22/2022 12/22/2022 documented as of this encounter (statuses as of 09/20/2023) [address]-2023 History of Past illness Narrative* Problem Noted Date Diagnosed Date Resolved Date Closed fracture of distal end of fibula 12/22/2022 12/22/2022 documented as of this encounter (statuses as of 09/22/2023) [address]-2023 History of Past illness Narrative* Problem Noted Date Diagnosed Date Resolved Date Closed fracture of distal end of fibula 12/22/2022 12/22/2022 documented as of this encounter (statuses as of 09/23/2023) [address]-2023 History of Past illness Narrative* Problem Noted Date Diagnosed Date Resolved Date Closed fracture of distal end of fibula 12/22/2022 12/22/2022 documented as of this encounter (statuses as of 11/21/2023) [address]-2023 History of Past illness Narrative* Problem Noted Date Diagnosed Date Resolved Date Closed fracture of distal end of fibula 12/22/2022 12/22/2022 documented as of this encounter (statuses as of 11/22/2023) [address]-2023 History of Past illness Narrative* Problem Noted Date Diagnosed Date Resolved Date Closed fracture of distal end of fibula 12/22/2022 12/22/2022 documented as of this encounter (statuses as of 12/12/2023) [address]23 History of Past illness Narrative* Problem Noted Date Diagnosed Date Resolved Date Closed fracture of distal end of fibula 12/22/2022 12/22/2022 documented as of this encounter (statuses as of 12/14/2023) [facility]03-08-2023 History of Past illness Narrative* Problem Noted Date Diagnosed Date Resolved Date Closed fracture of distal end of fibula 12/22/2022 12/22/2022 documented as of this encounter (statuses as of 12/14/2023) [facility]02-10-2023 Instructions* Patient Instructions* Jayda Ace PA-C - 11/26/2022 3:46 PM EST Continue with exercise Prevent falls by not leaning too far forward Follow up in 3-6 months documented in this encounterBarney [facility] History of Present illness Narrative* Jayda Ace PA-C - 11/26/2022 3:14 PM EST ESTABLISHED PATIENT VISIT Last visit: 06/17/22 with Ashley Ewing [facility] Assessment/Plan: R41.3 Memory loss (primary encounter diagnosis) Z87.820 History of traumatic brain injury R26.89 Balance problem Comment: Patient presenting today for both memory and balance concerns. Transferring care from outside neurology, however, records not available at this time. Pt reports that memory concerns began [id number] after being knocked unconscious by a horse. Initial CT with concern for bleed. He denies symptoms at the time of the accident but other symptoms seemed to have progressed since that time. RecentMRI of brain completed noting moderate diffuse volume loss and mild chronic microvascular ischemia.Blood work including Syphilis, TSH, folate, B12 all unremarkable. He denies hx of mood disorder, sleep concerns, headaches. He does report hx of dementia in mother. MOCA completed in office with score of 23/30. At this time discussed options for further testing such as formal neurocognitive testingas well as medications that are used to slow the progression of decline of memory (note, would consider Namenda as BP is low and would avoid use of donepezil). At this time he would like to proceed with neurocognitive testing for further evaluation. He also reports balance concerns and reports a fall about four weeks ago. He has recently completeda course of physical therapy with improvement in symptoms, though notes balance issues have still not resolved. He reports chronic lumbar pain as well as surgery to R ankle and bilateral ankle injuries. Note, MRI without evidence of stroke/bleed. On exam, pt noted to have slightly abnormal gait with possible steppage to R foot. Given hx of chronic low back pain will further evaluate with XR of lumbar spine. However, would also consider past ankle injury as possible contributing factor. Recommend continuing to complete HEP program for strength and stability. CHIEF COMPLAINT: Follow up HISTORY OF PRESENT ILLNESS: Lyric Padron is a 67 year old male with a PMH significant for Head injury 2007, MCI, DDD. Patient has been taking Namenda 5 mg twice daily, no side effects associated with this. notes that she has noted some improvement in his memory, notes that he is easier to talk to and states that it does not like she is talking to a wall. Of note, patient did not follow-up with neuropsychological testing, they do not want this testing as they are unsure what benefit it may have. Denies any car accidents since last visit, does not leave anything on including stove or faucet, has not gettinglost when driving. Patient still having falls, notes that he has had 2 falls in the last week and about 5 falls since his last appointment in June. When asked why the patient falls, patient states that he tipped over. He notes that he falls when he bends over to pick something up or to do something on the ground. He denies any vertiginous symptoms, lightheadedness, unsteady feeling when he falls. He denies anyweakness, numbness or tingling. He was previously going to physical therapy, no longer goes to physical therapy but does exercise 3 times a week in order to strengthen his balance. Patient was noted to have some degenerative changes in the lumbar spine on x-ray that was obtained since last visit. Patient does endorse some back pain with moderate exercise, notes that he canbarely stand after helping her in the morning. Patient denies any weakness, incontinence, saddle anesthesia. Patient has never seen a extension service specialist. Patient denies any voice change, hallucination, acting out dreams, tremor, change in smell, depression. He notes that he sleeps about 6 to 8 hours a night, sleeping well. Does only drink about 2 bottles of water a day. REVIEW OF SYSTEMS GENERAL:No weight loss, malaise or fevers. HEENT:Negative for frequent or significant headaches, No changes in hearing or vision, no nose bleeds or other nasal problems NECK:Negative for lumps, goiter, pain and significant neck swelling RESPIRATORY: Negative for cough, wheezing or shortness of breath. CARDIOVASCULAR: Negative for chest pain, leg swelling or palpitations. GASTROINTESTINAL: Negative for abdominal discomfort, blood in stools or black stools or change in bowel habits GENITOURINARY: No history of dysuria, frequency or incontinence MUSCULOSKELETAL: Negative for joint pain or swelling, back pain or muscle pain. NEUROLOGIC:Negative for focal numbness or weakness, headaches and dizziness or syncope, vision changes, speech/languag changes - EXCEPT that as per HPI above. SKIN:Negative for lesions, rash, and itching. PSYCHIATRIC: Negative for sleep disturbance, mood disorder and recent psychosocial stressors. HEMATOLOGIC/LYMPHATIC/IMMUNOLOGIC:Negative for prolonged bleeding, bruising easily or swollen nodes. ENDOCRINE: Negative for cold or heat intolerance, polyuria, polydipsia and goiter. The remainder of the ROS was reviewed and is negative. LAB/IMAGING: Those performed since patient's last visit have been reviewed. MRI brain WO 05/17/22 IMPRESSION: No evidence of an acute intracranial infarction. Moderate diffuse volume loss and mild chronic small vessel ischemia. Lumbar X-ray 06/22/22 IMPRESSION: Lumbar spine degenerative changes with multilevel disc space narrowing. MEDICATIONS: metroNIDAZOLE (METROGEL) 0.75 % Topical Gel APPLY TO AFFECTED AREAS of ROSACEA TWICE DAILy memantine (NAMENDA) 5 mg tablet Take 1 tablet by mouth twice daily. terazosin (HYTRIN) 5 mg capsule Take 1 capsule by mouth daily at bedtime. pravastatin (PRAVACHOL) 40 mg tablet Take 1 tablet by mouth once daily. acetaminophen (TYLENOL) 325 mg tablet Take 2 tablets by mouth every 6 hours as needed for Pain. penicillin V potassium (V-CILLIN, VEETIDS) 500 mg tablet Take 500 mg by mouth four times daily. (Patient not taking: Reported on 11/26/2022) minocycline (MINOCIN, DYNACIN) 50 mg capsule Take 1 capsule by mouth twice daily. (Patient not taking: Reported on 11/18/2022) HISTORIES PAST MEDICAL HISTORY Diagnosis Date Arthritis Rosacea FAMILY HISTORY Problem Relation Age of Onset Arthritis Mother Cancer Mother melanoma Heart Mother Viral myocarditis. GI Father ulcers SOCIAL HISTORY Social History Tobacco Use Smoking status: Former Years: 20.00 Types: Cigarettes Smokeless tobacco: Former Tobacco comments: occasionally will have a cigarette Vaping Use Vaping Use: Never used Substance Use Topics Alcohol use: No Drug use: No PHYSICAL EXAMINATION BP (P) 114/72 Pulse (P) 97 Temp (P) 36.3 C (97.4 F) Resp (P) 18 SpO2 (P) 100% GENERAL EXAM: General appearance: NAD, pleasant. HEENT: NC/AT NECK: No masses, supple. Lungs: Breathing comfortably Extr: Moves all extremities without difficulty Skin: Cool to touch. No rash. Mild discoloration to the lateral aspect of the left foot (chronic since injury many years ago) Psych: Flat affect, cooperative NEUROLOGICAL EXAM: General: Awake, alert, oriented x3 (person,place,time), speech fluent, no dysarthria; comprehension, naming, repetition intact. Short and fci memory intact. CN: EOMI and without nystagmus, facial movements symmetric (noted to have minimal expression), hearing is intact to conversation, no dysarthria or slurred speech (soft voice-unchanged per spouse). SCM and trapezius strength normal. Motor: Normal tone, bulk and strength (5/5) bilaterally (throughout extremities x4). No rigidity noted Reflexes: 2/4 and symmetric Coordination: FNF intact. No tremors. Sensation: LT, PP, vibration, temperature intact throughout. No evidence of neglect. Gait: Slightly wide based and stable with normal arm swing, did have slightly out turned left foot,mildly dragging right foot. Assessment and Plan: ASSESSMENT/PLAN: 1. History of traumatic brain injury - ICD9: V15.52, ICD10: Z87.820 (primary diagnosis) 2. Memory loss - ICD9: 780.93, ICD10: R41.3 Patient would like to continue Namenda 5 mg twice daily at this time, noticed improvement, not experiencing any side effects. Would not like neuropsychological testing at this time, did explain the benefits of further testing. 3. Balance problem - ICD9: 781.99, ICD10: R26.89 Patient without clear etiology as to why he falls, notes that he tips over when he bends over causing the falls. No dizziness, lightheadedness, unsteady feeling, no weakness, no numbness or tingling.Sensory exam was normal, gait was slightly wide-based but stable, did have slightly outward left foot and noted to be mildly dragging his right foot. Full strength on my exam, no signs of foot drop. Discussed EMG testing, patient deferred this at this time. Discussed x-ray of lumbar spine, showing degenerative changes. Discussed spine referral for further work-up for this, patient and agree to defer this at this time. Additionally, discussed formal physical therapy for his gait, patient would like to continue his own exercise therapy on his own. Discussed avoiding leaning over and bending over to prevent falls. Patient and agreeable to treatment plan of care at this time, all questions were addressed. Patient to follow-up in 3 to 6 months or sooner if any symptoms change or worsen. Jayda Ace PA-C I spent a total of 30 minutes on the date of the service which included preparing to see the patient, [id number] patient care, completing clinical documentation, obtaining and/or reviewing separately obtained history, performing a medically appropriate examination, and counseling and educating the patient/family/caregiver. This document has been created with the use of voice recognition technology. It may contain inaccuracies: (e.g. misspellings, inaccurate syntax or word sense) that have escaped review. documented in this encounterBarney [facility] History of Present illness Narrative* Macario Tan MD - 11/18/2022 1:10 PM EST Macario Tan MD Department of Orthopaedics Orthopaedics [address] [facility] [address] Dept: [phone] Dept Nov 18, 2022 CHIEF COMPLAINT: Fracture of the Right Middle Finger HPI Just within a few weeks ago, patient had a fall and caught himself and bent the finger back on the right hand, middle. He was seen at an [facility] with an x- ray. He was splinted at that time. ASSESSMENT: S63.067E Other sprain of left middle finger, initial encounter (primary encounter diagnosis) PLAN: Little bit of a volar plate avulsion. Swelling is improved. We discussed just motion program and may be some alex taping if he felt necessary. He can follow- up as needed. FOLLOW UP INSTRUCTIONS: As above Mr. Lyric Padron was advised as to contrast therapies and/or to take analgesics/anti-inflammatories as needed and all contraindications were reviewed. OBJECTIVE: Mr. Lyric Padron is a pleasant 67 year old in no apparent distress. Gen:There were no vitals taken for this visit. nl development, non obese, no deformities ENT: Normocephalic, normal hearing, moist mucosa CV: Pulses:Radial= 2+ and symmetric, capillary refill < 2 secs, no peripheral edema/varicosities Skin: no rash, bruising or lesions. Good turgor. Psych: cooperative and appropriate, alert and oriented x 3, good mood and affect. Musculoskeletal: Mild and appropriate swelling at the PIP joint consistent with the injury. Mild tenderness. Flexionand extension are intact with just some stiffness on full fist attempt. No instability of the joint. IMAGING: IMPRESSION: Acute fracture of the volar base of the third middle phalanx with soft tissue swelling. 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[facility] Transcribe Date/Time: Nov 02 2022 11:00A Dictated by : CLINT CORREA MD This examination was interpreted and the report reviewed and electronically signed by: CLINT CORREA MD on Nov 02 2022 11:02AM EST Results-Findings * * *Final Report* * * DATE OF EXAM: Nov 02 2022 10:39AM WOX [id number] - XR DIGIT 3V FRONTAL/LAT/OBL RT / PROCEDURE REASON: multiple diagnoses * * * * Physician Interpretation * * * * TITLE: XR DIGIT 3V FRONTAL/LAT/OBL RT CLINICAL INDICATION: Finger pain TECHNIQUE: 3 view radiographic study of the right third finger COMPARISON: None FINDINGS: Soft tissue swelling surrounding the proximal third finger. No soft tissue gas or radiopaque foreign body. There is an acute, essentially nondisplaced fracture of the volar base of the third middle phalanx. No additional osseous abnormality identified. Supporting Subjective Information Below: Past Medical History: PAST MEDICAL HISTORY Diagnosis Date Arthritis Rosacea Past Surgical History: PAST SURGICAL HISTORY Procedure Laterality Date PAST SURGICAL HISTORY OF flexible cystoscopy PAST SURGICAL HISTORY OF 1959 tonsillectomy PAST SURGICAL HISTORY OF 2018 left eye surgery TRANSURETHRAL ELEC-SURG PROSTATECTOM N/A 08/18/2021 Family History: FAMILY HISTORY Problem Relation Age of Onset Arthritis Mother Cancer Mother melanoma Heart Mother Viral myocarditis. GI Father ulcers Social History: Social History Tobacco Use Smoking status: Former Years: 20.00 Types: Cigarettes Smokeless tobacco: Former Tobacco comments: occasionally will have a cigarette Vaping Use Vaping Use: Never used Substance Use Topics Alcohol use: No Drug use: No Medications: Current Outpatient Medications Medication Sig penicillin V potassium (V-CILLIN, VEETIDS) 500 mg tablet Take 500 mg by mouth four times daily. (Patient not taking: Reported on 11/26/2022) metroNIDAZOLE (METROGEL) 0.75 % Topical Gel APPLY TO AFFECTED AREAS of ROSACEA TWICE DAILy memantine (NAMENDA) 5 mg tablet Take 1 tablet by mouth twice daily. terazosin (HYTRIN) 5 mg capsule Take 1 capsule by mouth daily at bedtime. pravastatin (PRAVACHOL) 40 mg tablet Take 1 tablet by mouth once daily. acetaminophen (TYLENOL) 325 mg tablet Take 2 tablets by mouth every 6 hours as needed for Pain. minocycline (MINOCIN, DYNACIN) 50 mg capsule Take 1 capsule by mouth twice daily. (Patient not taking: Reported on 11/18/2022) No current facility-administered medications for this visit. Allergies: Patient has no known allergies. ROS: General (negative for fatigue, malaise, weight loss/gain) HEENT (negative for headache, earache, recent vision changes, sinus pain, sore throat) Respiratory (no recent shortness of breath, hemoptysis) CV (negative for chest tightness, palpitations) Musculoskeletal (see HPI) Psych (no depression, anxiety) Macario Tan MD documented in this encounterBarney [facility]01-17-[facility]23 History of Present illness Narrative* Becca Titus APRN.BILL RECAPITULATION CLERK - 11/02/2022 10:29 AM EST Images from the original note were not included. Subjective HPI HPI Lyric Padron is a 67 year old male who presents today for CC of right middle finger pain, after a fall, catching his finger, bending it back to catch himself. He has not used any treatment or medications. This happened about 24 hours ago. BP 132/82 Pulse 90 Temp 36.2 C (97.2 F) (Tympanic) Resp 16 Wt 73 kg (161 lb) SpO2 99% BMI 26.79 kg/m Social History Tobacco Use Smoking status: Former Years: 20.00 Types: Cigarettes Smokeless tobacco: Former Tobacco comments: occasionally will have a cigarette Vaping Use Vaping Use: Never used Substance Use Topics Alcohol use: No Drug use: No PAST MEDICAL HISTORY Diagnosis Date Arthritis Rosacea I have confirmed and edited as necessary, the [facility] Review of Systems Constitutional: Negative for chills and fever. Musculoskeletal: Positive for joint pain (right middle finger). Negative for myalgias. Skin: Negative for itching and rash. All other systems reviewed and are negative. Objective Physical Exam Vitals and nursing note reviewed. Cardiovascular: Pulses: Radial pulses are 2+ on the right side and 2+ on the left side. Pulmonary: Effort: Pulmonary effort is normal. Musculoskeletal: Right hand: Swelling (middle finger) present. Tenderness: due to swelling.Decreased range of motion. Normal strength. Normal sensation. There is no disruption of two-point discrimination. Normal capillary refill. Normal pulse. Left hand: Normal. Hands: Comments: Area marked of swelling and discomfort, no pain in metacarpal joint or into 3rd metacarpal bone. Skin: General: Skin is warm and dry. Neurological: Mental Status: He is alert and oriented to person, place, and time. Sensory: Sensation is intact. Psychiatric: Mood and Affect: Affect normal. Motor and sensory and pulses intact distal to splint ASSESSMENT/PLAN: 1. Finger pain, right - ICD9: 729.5, ICD10: M79.644 (primary diagnosis) - XR DIGIT GENERAL 3V FRONTAL/LAT/OBL RIGHT 2. Finger injury, right, initial encounter - ICD9: 959.5, ICD10: S69.91XA Placed in long finder splint and alex tape, leave splint on until seen by ortho Ice, tylenol prn Follow up with ortho in 2 weeks for recheck - XR DIGIT GENERAL 3V FRONTAL/LAT/OBL RIGHT FINDINGS: Soft tissue swelling surrounding the proximal third finger. No soft tissue gas or radiopaque foreign body. There is an acute, essentially nondisplaced fracture of the volar base of the third middle phalanx. No additional osseous abnormality identified. IMPRESSION: Acute fracture of the volar base of the third middle phalanx with soft tissue swelling. Interpreted by : MD Becca WARREN APRN.BILL RECAPITULATION CLERK documented in this encounterBarney Children'S Medical Center12-30-2022 Miscellaneous Notes* Telephone Encounter - Lara Heath RN - 10/15/2022 11:41 AM EST Pt reports he is out of gel. Patient has been identified by name and date of : Yes, Provider Dr Adams Date 10/15/22 Time 1142. Patient phones for refill(s): Requested Prescriptions Pending Prescriptions Disp Refills metroNIDAZOLE (METROGEL) 0.75 % Topical Gel Sig: APPLY TO AFFECTED AREAS of ROSACEA TWICE DAILy Date of last office visit in primary care: 06/24/22 Future visit: 12/22/22 Last 2 Encounter Wt Readings: Date: Wt: 07/20/2022 68.5 kg (151 lb) 06/24/2022 68 kg (150 lb) Previous labs/tests for medication: Blood Pressure: BUN (mg/dL) Date Value 05/03/2022 10 07/14/2021 11 Sodium (mmol/L) Date Value 05/03/2022 138 07/14/2021 137 Last 1 Encounter BP Readings: Date: BP: 07/20/2022 110/78 Liver Function: ALT (U/L) Date Value 05/03/2022 16 07/14/2021 21 AST (U/L) Date Value 05/03/2022 21 07/14/2021 24 Please advise. Thank you. Lara Heath RN documented in this encounterBarney Children'S [facility] Center12-12-2022 Miscellaneous Notes* Telephone Encounter - Park Coles MA - 09/27/2022 11:32 AM EST The following approved medication requests have been transmitted electronically. Requested Prescriptions Signed Prescriptions Disp Refills memantine (NAMENDA) 5 mg tablet 60 tablet 2 Sig: Take 1 tablet by mouth twice daily. Authorizing Provider: GEOFFREY JOVEL JR, MA * Telephone Encounter - Estee Kendall RN - 09/24/2022 12:27 PM EST Last Office Visit: 06/17/2022 Future Office Visit: 11/18/2022 Requested Prescriptions Pending Prescriptions Disp Refills memantine (NAMENDA) 5 mg tablet 60 tablet 2 Sig: Take 1 tablet by mouth twice daily. documented in this encounterBarney Children'S [facility] Center10-04-2022 History of Present illness Narrative* Josefa Jacobs PA-C - 07/20/2022 1:33 PM EDT Images from the original note were not included. [facility] ESTABLISHED PATIENT CLINIC NOTE Some elements copied from his previous note, which have been updated where appropriate, and all reflect current medical decision making from date of this visit. SERVICE DATE: 07/20/2022 SERVICE TIME: 1:34 PM NAME: Lyric Padron CHIEF COMPLAINT: Annual follow-up HISTORY OF PRESENT ILLNESS: Lyric Padron is a 67 year old Male with PMH including BPH s/p TURP 2020 presenting for follow up for refills on medications The patient reports no change in LUTS surgery seems to have worked well. However, today he is retaining more urine than in the past He states he feels like he empty's well but PVR is 266 ml Refilled Hytrin 5 mg today LUTS: No new c/o's Other symptoms: ED - no LABS: Hematocrit (%) Date Value 05/03/2022 50.2 08/19/2021 43.6 07/14/2021 49.2 05/30/2014 45.2 PSA Screening (ng/mL) Date Value 05/27/2014 1.27 04/11/2012 1.38 No results found for: TESTOST MEDICATIONS: memantine (NAMENDA) 5 mg tablet Take 1 tablet by mouth twice daily. metroNIDAZOLE (METROGEL) 0.75 % Topical Gel APPLY TO AFFECTED AREAS of ROSACEA TWICE DAILy pravastatin (PRAVACHOL) 40 mg tablet Take 1 tablet by mouth once daily. minocycline (MINOCIN, DYNACIN) 50 mg capsule Take 1 capsule by mouth twice daily. acetaminophen (TYLENOL) 325 mg tablet Take 2 tablets by mouth every 6 hours as needed for Pain. terazosin (HYTRIN) 5 mg capsule Take 1 capsule by mouth daily at bedtime. PAST MEDICAL HISTORY: PAST MEDICAL HISTORY Diagnosis Date Arthritis Rosacea PAST SURGICAL HISTORY: PAST SURGICAL HISTORY Procedure Laterality Date PAST SURGICAL HISTORY OF flexible cystoscopy PAST SURGICAL HISTORY OF 1958 tonsillectomy PAST SURGICAL HISTORY OF 2017 left eye surgery TRANSURETHRAL ELEC-SURG PROSTATECTOM N/A 08/18/2021 FAMILY HISTORY: FAMILY HISTORY Problem Relation Age of Onset Arthritis Mother Cancer Mother melanoma Heart Mother Viral myocarditis. GI Father ulcers SOCIAL HISTORY: Social Connections: Not on file REVIEW OF SYSTEMS: GENERAL: No fever, chills, weight loss, or fatigue. All other systems reviewed and are negative PHYSICAL EXAMINATION: Blood pressure 110/78, pulse 110, temperature 36.6 C (97.8 F), temperature source Temporal, resp. rate 14, height 165.1 cm (5' 5 ), weight 68.5 kg (151 lb), SpO2 96 %. GENERAL: WNL nutrition, no deformities, healthy appearing PROBLEM LIST REVIEW: Yes LABS: Results for orders placed or performed in visit on 07/20/22 UA DIP, URINE (POC) Result Value Ref Range GLUCOSE UA (POCT) Negative Negative mg/dL BILIRUBIN UA (POCT) Negative Negative KETONE UA (POCT) Negative Negative mg/dL SPECIFIC GRAVITY UA (POCT) 1.020 1.005 - 1.030 HEMOGLOBIN/BLOOD UA (POCT) Negative Negative PH UA (POCT) 7.0 4.5 - 8.0 PROTEIN UA (POCT) Negative Negative mg/dL UROBILINOGEN UA (POCT) 0.2 Normal E.U./dL NITRITE UA (POCT) Negative Negative LEUKOCYTES UA (POCT) Negative Negative COLOR UA (POCT) Dark yellow CLARITY UA (POCT) Slightly Cloudy PROCEDURES: PVR: 266 ml IMAGING: IMPRESSION/PLAN: 67 year old male with 1. BPH with obstruction/lower urinary tract symptoms - ICD9: 600.01, 599.69, ICD10: N40.1, N13.8 (primary diagnosis) 2. S/P TURP - ICD9: V45.89, ICD10: Z90.79 - 2020 > Hytrin refilled today MANJIT Montgomery MT, PA-C * Ruth Khalil LPN - 07/20/2022 12:58 PM EDT Verified name and date of . CC Post Void Residual HPI: Lyric Padron is a 67 year old male. The patient is here now for an appointment with MANJIT Montgomery MT, PA-COV. Procedure: Explained procedure to patient and verbalizes understanding. Performed a PVR. Patient urinated and instructed to empty bladder as much as possible just prior to having PVR done using bladder ultrasound scanner. Results of scan: 266 mL The patient tolerated the procedure well. Plan: Appointment with Josefa. documented in this encounterBarney [facility]09-[facility] History of Present illness Narrative* Geoffrey Adams MD - 06/24/2022 3:18 PM EDT Patient presents with: Follow Up: Had MRI, lab work, and saw neuro HPI: Patient presents today for office visit for follow up having MRI, lab work, and seeing neuro. NEUROLOGY ordered neuropsych eval and xray of lumbar spine. They did start him on namenda. They they decided to hold on neuropsych. Will be slowing increasing meds. No side effects. Reviewed xrays No recent falls. Did complete physical therapy. He has joined [employer]. Discussed considering continued therapy. Denies chest pain, shortness of breath or edema. See previous note: Last visit with Neuro in 2020. Was seeing Dr. Adams. Patient noticing a decline in cognitive function. Recent history of falls especially in the last year d/t balancing issues. Currently not using any ambulatory devices. AOx4 No changes in vision or hearing. No lightheadedness. No dizziness. No fainting. Patient notices he does not filler picker his right foot as much while walking. 3 word recall - good with medical student. 3 word recall - poor with nurse. Patients notices worsening in communication the last couple of months. Patients mentions difficulty with following instruction Hx of brain bleed in 2018. Re-assessed a year later with CT at [facility]. No recent head trauma or injury. Upper strength bilat - symmetrical and good against ROM Lower strength - asymmetrical. Right leg weaker than left leg. Patient is noted to wobble a little while walking. His walking is complicated by the fact he has broken both ankles at different times over the last decade. He retired a year ago and his activity has declined. Has had several falls in the last year. HYPERLIPIDEMIA: Patient is taking medications: Yes. Patient is watching diet: No. Patient denies myalgias: Yes. Patient denies gi upset: No HTN: Patient is compliant with meds Yes Monitors bp at home: No. Denies side effects: Yes. Chest pain: No. Dyspnea: No. Edema: No. Palpitations: No. Syncope: No. Headache: No. Dizziness: No. Complains of left shoulder pain Noted it a week ago. No trauma. No numbness or weakness. No radiation of pain. Xray of lumbar spine: IMPRESSION: Lumbar spine degenerative changes with multilevel disc space narrowing. MRI: IMPRESSION: No evidence of an acute intracranial infarction. Moderate diffuse volume loss and mild chronic small vessel ischemia. Component Latest Ref Rng & Units 04/30/2022 05/03/2022 WBC 3.70 - 11.00 k/uL 8.54 RBC 4.20 - 6.00 m/uL 5.43 Hemoglobin 13.0 - 17.0 g/dL 16.4 Hematocrit 39.0 - 51.0 % 50.2 MCV 80.0 - 100.0 fL 92.4 MCH 26.0 - 34.0 pg 30.2 MCHC 30.5 - 36.0 g/dL 32.7 RDW-CV 11.5 - 15.0 % 12.6 Platelet Count 150 - 400 k/uL 269 MPV 9.0 - 12.7 fL 9.9 Neut% % 58.2 Abs Neut (ANC) 1.45 - 7.50 k/uL 4.96 Lymph% % 30.3 Abs Lymph 1.00 - 4.00 k/uL 2.59 Shelby% % 8.2 Abs Shelby <0.87 k/uL 0.70 Eosin% % 2.3 Abs Eosin <0.46 k/uL 0.20 Baso% % 0.8 Abs Baso <0.11 k/uL 0.07 Immature Gran % % 0.2 IMMATURE GRANS (ABS) <0.10 k/uL <0.03 NRBC /100 WBC 0.0 Absolute nRBC <0.01 k/uL <0.01 DTYPE Auto Protein, Total 6.3 - 8.0 g/dL 7.5 Albumin 3.9 - 4.9 g/dL 4.4 Calcium 8.5 - 10.2 mg/dL 10.0 Bilirubin, Total 0.2 - 1.3 mg/dL 0.6 Alkaline Phosphatase 38 - 113 U/L 83 AST 14 - 40 U/L 21 ALT 10 - 54 U/L 16 Glucose 74 - 99 mg/dL 102 (H) BUN 9 - 24 mg/dL 10 Creatinine 0.73 - 1.22 mg/dL 0.83 Sodium 136 - 144 mmol/L 138 Potassium 3.7 - 5.1 mmol/L 4.6 Chloride 97 - 105 mmol/L 102 CO2 22 - 30 mmol/L 23 Anion Gap 9 - 18 mmol/L 13 eGFR >=60 mL/min/1.73m 95 Cholesterol, Total <200 mg/dL 181 Triglyceride <150 mg/dL 89 HDL Cholesterol >39 mg/dL 66 Non HDL Cholesterol <130 mg/dL 115 Fasting Time hrs 12 VLDL Cholesterol <30 mg/dL 18 TC:HDL Ratio <5.10 2.74 LDL Cholesterol <100 mg/dL 97 LDL:HDL Ratio <2.54 1.47 Syphilis Screen Result Nonreactive Nonreactive Syphilis Interpretation Cannot exclude recent Treponemal infection if specimen collected within 7-10 days after appearance of suspect lesions or 2-3 weeks after an exposure. Clinical correlation is required. Occult Blood, Stool Negative Negative Vitamin B12 232-1,245 pg/mL 577 Folate >4.7 ng/mL >20.0 TSH 0.270 - 4.200 mIU/L 2.620 Hep C Antibody IA Negative Negative MEDICATIONS: Current Outpatient Medications Medication Sig memantine (NAMENDA) 5 mg tablet Take 1 tablet by mouth twice daily. (Patient taking differently: Take 5 mg by mouth once daily.) metroNIDAZOLE (METROGEL) 0.75 % Topical Gel APPLY TO AFFECTED AREAS of ROSACEA TWICE DAILy pravastatin (PRAVACHOL) 40 mg tablet Take 1 tablet by mouth once daily. minocycline (MINOCIN, DYNACIN) 50 mg capsule Take 1 capsule by mouth twice daily. terazosin (HYTRIN) 5 mg capsule Take 1 capsule by mouth daily at bedtime. acetaminophen (TYLENOL) 325 mg tablet Take 2 tablets by mouth every 6 hours as needed for Pain. No current facility-administered medications for this visit. ALLERGIES: ALLERGIES No Known Allergies PAST MEDICAL HISTORY Diagnosis Date Arthritis Rosacea PAST SURGICAL HISTORY Procedure Laterality Date PAST SURGICAL HISTORY OF flexible cystoscopy PAST SURGICAL HISTORY OF 1958 tonsillectomy PAST SURGICAL HISTORY OF 2017 left eye surgery TRANSURETHRAL ELEC-SURG PROSTATECTOM N/A 08/18/2021 FAMILY HISTORY Problem Relation Age of Onset Arthritis Mother Cancer Mother melanoma Heart Mother Viral myocarditis. GI Father ulcers Social History Tobacco Use Smoking status: Former Years: 20.00 Types: Cigarettes Smokeless tobacco: Former Tobacco comments: occasionally will have a cigarette Vaping Use Vaping Use: Never used Substance Use Topics Alcohol use: No Drug use: No Reviewed current medications, allergies, past medical history, surgical history, family history andsocial history today. REVIEW OF SYSTEMS All other reviewed and negative other than HPI. VITALS: BP 102/62 Pulse 88 Wt 68 kg (150 lb) BMI 25.75 kg/m Last 4 Encounter Wt Readings: Date: Wt: 06/17/2022 69.3 kg (152 lb 12.8 oz) 04/29/2022 71.7 kg (158 lb) 02/07/2022 72.6 kg (160 lb) 10/20/2021 73.4 kg (161 lb 12.8 oz) PHYSICAL EXAMINATION: General appearance: Well appearing, alert, in no acute distress, well-hydrated, well nourished. Skin: Skin color, texture, turgor normal, no suspicious rashes or lesions Head: Normocephalic, no masses, lesions, tenderness or abnormalities Lungs: Lungs clear to auscultation. No wheezing, rhonchi, rales Heart: RRR without murmur, gallop, or rubs. No ectopy Abdomen: Normal abdominal exam, Abdomen soft, non-tender. Bowel sounds normal. No masses, organomegaly Extremities: No deformities, edema, skin discoloration, clubbing or cyanosis. Good capillary refill. Musculoskeletal: No joint swelling, deformity, or tenderness Peripheral pulses: Normal ASSESSMENT/PLAN: 1. DDD (degenerative disc disease), lumbar - ICD9: 722.52, ICD10: M51.36 (primary diagnosis) - continue to do therapy. 2. Mild cognitive impairment - ICD9: 331.83, ICD10: G31.84 - continue meds. Follow with neuro 3. Benign non-nodular prostatic hyperplasia with lower urinary tract symptoms - ICD9: 600.91, ICD10: N40.1 -continue meds. 4. Ddd of lumbar spine. He would like to see if he can get physical therapy directed more at his spine. Geoffrey Adams MD RTO in six months documented in this encounterBarney [facility]09-02-2022 Miscellaneous Notes* Telephone Encounter - Ashley Ewing APRN.CNP - 06/18/2022 7:01 AM EDT Prescription sent for Namenda 5mg. Please have patient take just one five mg tablet daily for two weeks. If no SE increase to one tablet in AM and one tablet in PM. * Telephone Encounter - Mirna Garcia LPN - 06/17/2022 4:17 PM EDT Pt called back and states he was just seen and a medication was offered. He declined at the apt buthas reconsidered and would like to start on the medication. Send to [facility]. Cancel referralfor neurological testing at [facility] for now. Mirna Garcia LPN documented in this encounterBarney Children'S [facility] Center09-01-2022 History of Present illness Narrative* Ashley Ewing APRN.CNP - 06/17/2022 2:30 PM EDT Images from the original note were not included. [facility] [place] New Patient Visit New Patient Consultation June 17, 2022 HPI: Mr. Padron presents today secondary to issues of balance problems and cognitive concerns. Hx of head injury on 07/24/18. He states that he was standing in front of a horse which knocked him over. Hit his head. Concerns started after this time. Did lose consciousness for over 15 minutes after a ccident. No concerns immediately following accident. On review of ED note from [facility] on 07/24/18: Pt was witnessed falling backwards and hitting hte backof his head. He was unresponsive for approximately two minutes and his son describes seeing his eyes rolling back into his head. 911 was called. Pt became alert and responsive prior to arrival at [facility]. He now denies any neurological complaints. CT scan of the head initially was read to have two small areas of concern for subdural hematoma however, upon re-read by neuroradiology it was felt thatthese were likely calcifications and not actually bleeding. He will be admitted overnight for observation and will rescan in AM. If negative then would dc home with instructions for concussion and follow up with PCP as an outpatient. He was following with outside neurology (Dr. Figueroa) until one year ago. No records available at this time. No past MOCA/MMSE available. Feels cautious when he walks. Had a fall about four weeks ago. Has been going to phsycial therapy which has helped some. His states as time went on balance worsened over time. PT originally seemed to help. Seems to veer to L and R. Can fall forwards. Has not hit his head during any falls. Doesnot use a cane or walker at home. Reports low back pain as well as thoracic pain. No hx of back surgery. No numbness or tingling. Denies weakness in legs. Denies dizziness or lightheadedness. Denies bowel or bladder changes. Never feels frozen. States he does not pick his feet up like he used to. Hears feet dragging. Has hx of bilateral ankle injuries with surgical intervention to R ankle. Short term memory has been a problem. His notes that after the accident he seemed to have a change in personality. Would say things he wouldn't say before. As time has progressed it has become more evident that memory has worsened. Not forgetting names of family or friends. Does not forget to take medications. Not forgetting appointments. Denies hallucinations. Currently driving. His sta jamilah he got lost when driving to [employer]. Does ok around [place] or in familiar place. Does not cook. No difficulty with ADL's. Will sometimes talk to her and it is like talking to a blank wall. Will not get any feedback. Concern for other process such as dementia. No reported tremors. Sleeps ok; not acting out dreams or yelling out. Denies LOC except with accident. Denies headaches. Denies hx of anxiety or depression. Denies personal neurological hx. Mother with history of dementia; sx in her 80's. Alcohol: Denies Tobacco: Occasional cigarette Drug: Denies MOCA 06/17/22 Visuospatial/exec (5-5) (4/4) Naming (0-3) (3/3) Memory Words, up to 2 trials: Face, Velvet, Episcopalian, Escobar, Red (no points) 3/5 first try, 5/5 second try Attention forwards: 2 1 8 5 4 (0-1) (10/17) Attention backwards: 7 4 2 (0-1) (10/17) Tap for the A : F B A C M N A A J K L B A F A K D E A A A J A M O F A A B (1 point if 0 or 1 error) (0/1) Serial subtraction by 7: [id number] (3 points for correct 4 or 5; 2 points for 2 or 3 correct; 1 point for 1 correct) [id number] (2/3) Language: repeat: I only know that [place] is the one to help today (0-1) (1/1) Language: repeat: The cat always hid under the couch when dogs were in the room (0-1) (1/) Fluency: max words beginning with the letter F (1 point if 11 or more words) llll (0/1) Abstraction: practice banana-orange=fruit. Then train-bicycle (1) AND watch- ruler (1) total: (2) (2/2) Delayed recall: recall words: face, velvet, denominational, escobar, red (0-5) (10/21) Orientation: date(1), month(1), year(1), day(1), place(1), city(1) max 6 points (03/22) Level of education: add 1 if did not receive more than a HS education +1 Total Score max 30 or 31 (23) PAST MEDICAL HISTORY Diagnosis Date Arthritis Rosacea PAST SURGICAL HISTORY Procedure Laterality Date PAST SURGICAL HISTORY OF flexible cystoscopy PAST SURGICAL HISTORY OF 1958 tonsillectomy PAST SURGICAL HISTORY OF 2017 left eye surgery TRANSURETHRAL ELEC-SURG PROSTATECTOM N/A 08/18/2021 Current Outpatient Medications on File Prior to Visit Medication Sig metroNIDAZOLE (METROGEL) 0.75 % Topical Gel APPLY TO AFFECTED AREAS of ROSACEA TWICE DAILy pravastatin (PRAVACHOL) 40 mg tablet Take 1 tablet by mouth once daily. minocycline (MINOCIN, DYNACIN) 50 mg capsule Take 1 capsule by mouth twice daily. terazosin (HYTRIN) 5 mg capsule Take 1 capsule by mouth daily at bedtime. acetaminophen (TYLENOL) 325 mg tablet Take 2 tablets by mouth every 6 hours as needed for Pain. No current facility-administered medications on file prior to visit. Social History Tobacco Use Smoking status: Former Years: 20.00 Types: Cigarettes Smokeless tobacco: Former Tobacco comments: occasionally will have a cigarette Vaping Use Vaping Use: Never used Substance Use Topics Alcohol use: No Drug use: No ALLERGIES No Known Allergies Review of Systems: ENT: denies loss of hearing, vertigo Vision: denies blurring vison, double vision/diplopia Cardiopulmonary: denies chest pain, palpitations Respiratory: denies shortness of breath GI: denies recent nausea, vomiting, diarrhea, constipation : denies incontinence Sleep: denies issues with sleeping Musculoskeletal: denies weakness Back/spine: denies + low back or cervical pains Neuro: denies tremors, loss of feeling, dizziness, seizure, blackout, paresthesia, facial paresthesia, facial weakness, difficulty in speech, slurring of words, dysarthria, dysphagia, + memory loss, headache Physical Exam: 06/17/22 1415 BP: 100/62 Pulse: 91 Resp: 16 Temp: 36.2 C (97.2 F) TempSrc: Temporal Artery SpO2: 98% Weight: 69.3 kg (152 lb 12.8 oz) Orthostatic VS: Sitting 110/75, HR 86 Standing 110/74, HR 91 and 108/72, HR 92 Patient is alert and in no distress. Dress is appropriate. Mood is appropriate Breathing appears regular and unstressed Neurologic examination: MOCA above. CN: Pupils equal and reactive to light, extraocular movements intact with no nystagmus, face is symmetric with no facial droop, facial sensation intact bilaterally to light touch. V1-3, hearing intact bilaterally, symmetric evaluation of the soft palate, tongue is midline with no deviation, shoulder shrug is symmetric. Motor exam shows 5/5 strength symmetric through the upper and lower extremities in all groups tested with exception of RLE with dorsiflexion and plantar flexion which are 4+/5. Sensory intact to light touch in all extremities. Vibratory sensation is intact and symmetric all extremities. Deep tendon reflexes are symmetric at the biceps, brachioradialis, triceps, patella, and achilles bilaterally. Coordination: No dysmetria on finger to nose. No tremors noted. No drift seen. Gait abnormal with some steppage of R foot; R ankle surgery. Labs/studies: MRI Report MRI BRAIN WO IVCON Exam End: 05/17/2022 3:52 PM (Final result) Narrative: * * *Final Report* * * DATE OF EXAM: May 17 2022 3:50PM [facility] 0294 - MRI BRAIN WO IVCON / PROCEDURE REASON: multiple diagnoses * * * * Physician Interpretation * * * * EXAMINATION: MRI BRAIN WO IVCON CLINICAL HISTORY: Ataxia and memory loss. TECHNIQUE: Routine noncontrast MRI protocol including diffusion images. MQ: [id number] COMPARISON: None. RESULT: Acute Change: There is no evidence of restricted diffusion to suggest an acute infarct. Hemorrhage: No evidence of prior parenchymal hemorrhage on the gradient echo images. Mass Lesion/ Mass Effect: No evidence of an intracranial mass or extra-axial fluid collection. No significant mass effect. Chronic Change: Scattered patchy areas of increased T2 and FLAIR signal are present in the supratentorial white matter which is a nonspecific finding but likely represents mild chronic microvascular ischemia. Parenchyma: There is moderate generalized parenchymal volume loss. The brain parenchyma is otherwise within normal limits of signal intensity and morphology. Ventricles: Ventriculomegaly corresponds to the degree of parenchymal volume loss. Skull Base: Hypothalamic and pituitary region are grossly normal. Craniocervical junction is normal. No significant marrow replacement process. Vasculature: Major intracranial arterial structures, and dural venous sinuses show typical flow void, suggesting patency by spin echo criteria. Other: Chronic moderate inflammatory changes identified in the ethmoid air cells and retention cysts are present in the left maxillary sinus. Remainder the paranasal sinuses, mastoid air cells and middle ear cavities are grossly clear.. The orbits and extracranial soft tissues are unremarkable. Impression: IMPRESSION: No evidence of an acute intracranial infarction. Moderate diffuse volume loss and mild chronic small vessel ischemia. 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: PSCB Transcribe Date/Time: May 17 2022 4:55P Dictated by : DESHAWN LAMB MD This examination was interpreted and the report reviewed and electronically signed by: DESHAWN LAMB MD on May 17 2022 4:56PM EST MRI Brain 07/25/18: MRV Brain 07/25/18: Component Latest Ref Rng & Units 05/03/2022 WBC 3.70 - 11.00 k/uL 8.54 RBC 4.20 - 6.00 m/uL 5.43 Hemoglobin 13.0 - 17.0 g/dL 16.4 Hematocrit 39.0 - 51.0 % 50.2 MCV 80.0 - 100.0 fL 92.4 MCH 26.0 - 34.0 pg 30.2 MCHC 30.5 - 36.0 g/dL 32.7 RDW-CV 11.5 - 15.0 % 12.6 Platelet Count 150 - 400 k/uL 269 MPV 9.0 - 12.7 fL 9.9 Neut% % 58.2 Abs Neut (ANC) 1.45 - 7.50 k/uL 4.96 Lymph% % 30.3 Abs Lymph 1.00 - 4.00 k/uL 2.59 Shelby% % 8.2 Abs Shelby <0.87 k/uL 0.70 Eosin% % 2.3 Abs Eosin <0.46 k/uL 0.20 Baso% % 0.8 Abs Baso <0.11 k/uL 0.07 Immature Gran % % 0.2 IMMATURE GRANS (ABS) <0.10 k/uL <0.03 NRBC /100 WBC 0.0 Absolute nRBC <0.01 k/uL <0.01 DTYPE Auto Protein, Total 6.3 - 8.0 g/dL 7.5 Albumin 3.9 - 4.9 g/dL 4.4 Calcium 8.5 - 10.2 mg/dL 10.0 Bilirubin, Total 0.2 - 1.3 mg/dL 0.6 Alkaline Phosphatase 38 - 113 U/L 83 AST 14 - 40 U/L 21 ALT 10 - 54 U/L 16 Glucose 74 - 99 mg/dL 102 (H) BUN 9 - 24 mg/dL 10 Creatinine 0.73 - 1.22 mg/dL 0.83 Sodium 136 - 144 mmol/L 138 Potassium 3.7 - 5.1 mmol/L 4.6 Chloride 97 - 105 mmol/L 102 CO2 22 - 30 mmol/L 23 Anion Gap 9 - 18 mmol/L 13 eGFR >=60 mL/min/1.73m 95 Cholesterol, Total <200 mg/dL 181 Triglyceride <150 mg/dL 89 HDL Cholesterol >39 mg/dL 66 Non HDL Cholesterol <130 mg/dL 115 Fasting Time hrs 12 VLDL Cholesterol <30 mg/dL 18 TC:HDL Ratio <5.10 2.74 LDL Cholesterol <100 mg/dL 97 LDL:HDL Ratio <2.54 1.47 Syphilis Screen Result Nonreactive Nonreactive Syphilis Interpretation Cannot exclude recent Treponemal infection if specimen collected within 7-10 days after appearance of suspect lesions or 2-3 weeks after an exposure. Clinical correlation is required. Vitamin B12 232-1,245 pg/mL 577 Folate >4.7 ng/mL >20.0 TSH 0.270 - 4.200 mIU/L 2.620 Hep C Antibody IA Negative Negative Assessment/Plan: R41.3 Memory loss (primary encounter diagnosis) Z87.820 History of traumatic brain injury R26.89 Balance problem Comment: Patient presenting today for both memory and balance concerns. Transferring care from outside neurology, however, records not available at this time. Pt reports that memory concerns began [id number] after being knocked unconscious by a horse. Initial CT with concern for bleed. He denies symptoms at the time of the accident but other symptoms seemed to have progressed since that time. RecentMRI of brain completed noting moderate diffuse volume loss and mild chronic microvascular ischemia.Blood work including Syphilis, TSH, folate, B12 all unremarkable. He denies hx of mood disorder, sleep concerns, headaches. He does report hx of dementia in mother. MOCA completed in office with score of 23/30. At this time discussed options for further testing such as formal neurocognitive testingas well as medications that are used to slow the progression of decline of memory (note, would consider Namenda as BP is low and would avoid use of donepezil). At this time he would like to proceed with neurocognitive testing for further evaluation. He also reports balance concerns and reports a fall about four weeks ago. He has recently completeda course of physical therapy with improvement in symptoms, though notes balance issues have still not resolved. He reports chronic lumbar pain as well as surgery to R ankle and bilateral ankle injuries. Note, MRI without evidence of stroke/bleed. On exam, pt noted to have slightly abnormal gait with possible steppage to R foot. Given hx of chronic low back pain will further evaluate with XR of lumbar spine. However, would also consider past ankle injury as possible contributing factor. Recommend continuing to complete HEP program for strength and stability. Office Visit on 06/17/22 XR LUMBAR GENERAL 3V AP/LAT/L5-S1 CONSULT TO NEUROLOGY NEUROPSYCHOLOGICAL TESTING CONSULT Ashley Ewing APRN.BILL RECAPITULATION CLERK I spent a total of 60 minutes on the date of the service which included preparing to see the patient, [id number] patient care, completing clinical documentation, obtaining and/or reviewing separately obtained history, performing a medically appropriate examination, counseling and educating the pat ient/family/caregiver, and ordering medications, tests, or procedures. documented in this encounterBarney Children'S [facility] Center08-01-2022 Miscellaneous Notes* Telephone Encounter - Park Coles MA - 05/17/2022 5:21 PM EDT Patient notified of results. Park Coles MA * Telephone Encounter - Park Coles MA - 05/17/2022 5:20 PM EDT ----- Message from Geoffrey Adams MD sent at 05/17/2022 5:07 PM EDT ----- Let him know mri shows no acute changes. documented in this encounterBarney Children'S Medical [facility] Miscellaneous Notes* Telephone Encounter - Isabella Dasilva APRN.CNP - 02/08/2022 1:43 PM EDT FINDINGS: No acute fracture or dislocation identified. Joint spaces preserved. IMPRESSION IMPRESSION: No radiographic evidence of acute osseous abnormality 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: ANKIT Transcribe Date/Time: Feb 08 2022 1:14P Dictated by : CLINT CORREA MD Patient notified about wrist. Will continue care plan. follow up with PCP in 3-5 days if pain continues. [facility] History of Present illness Narrative* Isabella Dasilva APRN.CNP - 02/07/2022 12:33 PM EDT Images from the original note were not included. Subjective Patient came in with complaints of left wrist pain only when he rotates it and a reddened area. Patient said he was using a drill and it went into the object and kicked back twisting his wrist. Patient denies any numbness or tingling or any other symptoms associate to this injury. The history is provided by the patient. No biblical languages professor was used. Review of Systems Constitutional: Negative. Skin: Negative. Objective Physical Exam Constitutional: Appearance: Normal appearance. Pulmonary: Effort: Pulmonary effort is normal. Musculoskeletal: Hands: Comments: Reddened area in spot marked above. Not warm to touch. Pain not created when any area on or around that marked spot is palpated. Skin: General: Skin is warm. Capillary Refill: Capillary refill takes less than 2 seconds. Neurological: Mental Status: He is alert. PAST MEDICAL HISTORY Diagnosis Date Arthritis Rosacea PAST SURGICAL HISTORY Procedure Laterality Date PAST SURGICAL HISTORY OF flexible cystoscopy PAST SURGICAL HISTORY OF 1959 tonsillectomy PAST SURGICAL HISTORY OF 2018 left eye surgery TRANSURETHRAL ELEC-SURG PROSTATECTOM N/A 08/18/2021 ALLERGIES Patient has no known allergies. MEDICATIONS pravastatin (PRAVACHOL) 40 mg tablet Take 1 tablet by mouth once daily. terazosin (HYTRIN) 5 mg capsule Take 1 capsule by mouth daily at bedtime. minocycline (MINOCIN, DYNACIN) 50 mg capsule Take 1 capsule by mouth twice daily. acetaminophen (TYLENOL) 325 mg tablet Take 2 tablets by mouth every 6 hours as needed for Pain. FAMILY HISTORY Problem Relation Age of Onset Arthritis Mother Cancer Mother melanoma Heart Mother Viral myocarditis. GI Father ulcers Social History Tobacco Use Smoking status: Former Smoker Years: 20.00 Smokeless tobacco: Former User Tobacco comment: occasionally will have a cigarette Vaping Use Vaping Use: Never used Substance Use Topics Alcohol use: No Drug use: No ASSESSMENT/PLAN: 1. Left wrist pain - ICD9: 719.43, ICD10: M25.532 - XR WRIST INJURY 4V PA/LAT/OBL/SCAPH LEFT Patient was placed in a brace for comfort instructed to use ice, tylenol, and rest until tomorrow when he Can come back for an xray and get a final care plan. patient was okay with this. Isabella Dasilva APRN.SAMARIA documented in this encounterBar[facility] History of Present illness Narrative* Manuela Tam RT(R) - 05/04/2021 2:10 PM EDT Radiology Service Progress Note PATIENT NAME: Lyric Padron DATE OF SERVICE: May 04, 2021 TIME: 2:29 PM PATIENT IDENTITY VERIFICATION COMPLETED USING TWO (2) IDENTIFIERS: Name and Date of confirmedby patient verbally. FALL SCREENING: Has the patient had 2 falls in the last year or 1 fall with injury or currently using an Ambulatory Assistive Device (Walker, Cane, Wheelchair, Crutches, etc.)? No PATIENT GENDER DATA: Male PATIENT RELEVANT IMPLANT DATA REVIEWED: Not Applicable RADIOLOGY DEPARTMENT: General X-ray: Exam(s) Completed: Upper Extremity X- Ray(s): Hand, right PERIPHERAL IV DATA: Not applicable SIGNED BY: RT Araceli(R) May 04, 2021 2:29 PM documented in [facility]* Diagnosis Left wrist pain- Primary Pain in joint, forearm [facility]* Diagnosis Memory loss- Primary History of traumatic brain injury Personal history of traumatic brain injury Balance problem Other symptoms involving nervous and musculoskeletal systems [facility] this encounter [facility]* Diagnosis DDD (degenerative disc disease), lumbar- Primary Degeneration of lumbar or lumbosacral intervertebral disc Mild cognitive impairment Mild cognitive impairment, so stated Benign non-nodular prostatic hyperplasia with lower urinary tract symptoms [facility]* Diagnosis BPH with obstruction/lower urinary tract symptoms- Primary Hypertrophy of prostate with urinary obstruction and other lower urinary tract symptoms (LUTS) S/P TURP Other postprocedural status [facility]* Diagnosis Finger pain, right- Primary Pain in limb Finger injury, right, initial encounter [facility] Diagnosis History of traumatic brain injury- Primary Personal history of traumatic brain injury Memory loss Balance problem Other symptoms involving nervous and musculoskeletal systems [facility]* Diagnosis Other sprain of left middle finger, initial encounter- Primary [facility]* Diagnosis Weight loss- Primary Loss of weight Rosacea, acne Rosacea Pure hypercholesterolemia Weakness of both lower extremities Dementia without behavioral disturbance (HCC) Dementia, unspecified, without behavioral disturbance History of traumatic brain injury- Primary Personal history of traumatic brain injury Memory loss Balance problem Other symptoms involving nervous and musculoskeletal systems [facility]* Diagnosis Balance problem- Primary Other symptoms involving nervous and musculoskeletal systems Weakness of right lower extremity DDD (degenerative disc disease), lumbar Degeneration of lumbar or lumbosacral intervertebral disc Spinal stenosis of lumbar region, unspecified whether neurogenic claudication present [facility] Diagnosis Spinal stenosis of lumbar region, unspecified whether neurogenic claudication present- Primary Weakness of both lower extremities documented in this encounter [facility]* Diagnosis Renal lesion- Primary Unspecified disorder of kidney and ureter Flank pain Abdominal pain, unspecified site DDD (degenerative disc disease), lumbar Degeneration of lumbar or lumbosacral intervertebral disc Spinal stenosis of lumbar region, unspecified whether neurogenic claudication present Weakness of right lower extremity Weakness of both lower extremities Ataxia Lack of coordination [facility] Diagnosis Spinal stenosis of lumbar region, unspecified whether neurogenic claudication present Weakness of both lower extremities [facility] Diagnosis Mild cognitive impairment- Primary Mild cognitive impairment, so stated Rosacea, acne Rosacea DDD (degenerative disc disease), lumbar Degeneration of lumbar or lumbosacral intervertebral disc Spinal stenosis of lumbar region, unspecified whether neurogenic claudication present Closed head injury, sequela Pure hypercholesterolemia Prediabetes Other abnormal glucose [facility] Diagnosis BPH with obstruction/lower urinary tract symptoms- Primary Hypertrophy of prostate with urinary obstruction and other lower urinary tract symptoms (LUTS) Renal lesion Unspecified disorder of kidney and ureter Urinary retention Retention of urine, unspecified [facility] Diagnosis Spinal stenosis of cervical region- Primary Spinal stenosis in cervical region SAH (subarachnoid hemorrhage) (HCC) Subarachnoid hemorrhage [facility] Diagnosis Lung nodules Other nonspecific abnormal finding of lung field [facility] Diagnosis Renal lesion Unspecified disorder of kidney and ureter [facility] Diagnosis History of traumatic brain injury- Primary Personal history of traumatic brain injury Memory loss Balance problem Other symptoms involving nervous and musculoskeletal systems SAH (subarachnoid hemorrhage) (HCC) Subarachnoid hemorrhage Frequent falls Personal history of fall [facility] Diagnosis Chronic subdural hematoma (HCC)- Primary Subdural hemorrhage Subdural hematoma (HCC) Subdural hemorrhage Subdural hematoma (HCC) Subdural hemorrhage [facility] Diagnosis Subarachnoid hemorrhage (HCC) Subarachnoid hemorrhage Subdural hematoma (HCC) Subdural hemorrhage [facility] Diagnosis Subarachnoid hemorrhage (HCC) Subarachnoid hemorrhage [facility] Diagnosis Frequent falls- Primary Personal history of fall Subdural hematoma (HCC) Subdural hemorrhage Dementia without behavioral disturbance (HCC) Dementia, unspecified, without behavioral disturbance Balance problem Other symptoms involving nervous and musculoskeletal systems Cervical stenosis of spinal canal Spinal stenosis in cervical region Memory loss [facility] Diagnosis History of subdural hematoma- Primary History of subarachnoid hemorrhage Personal history of other diseases of circulatory system Personal history of traumatic brain injury Subarachnoid hemorrhage (HCC) Subarachnoid hemorrhage Ataxia, unspecified Pure hypercholesterolemia Mild cognitive impairment Mild cognitive impairment, so stated Benign non-nodular prostatic hyperplasia with lower urinary tract symptoms Cervical myelopathy (HCC) Cervical spondylosis with myelopathy Prediabetes Other abnormal glucose SAH (subarachnoid hemorrhage) (HCC) Subarachnoid hemorrhage Screening for colon cancer Special screening for malignant neoplasms, colon [facility] Diagnosis Subdural hematoma (HCC)- Primary Subdural hemorrhage Dementia without behavioral disturbance (HCC) Dementia, unspecified, without behavioral disturbance Frequent falls Personal history of fall Balance problem Other symptoms involving nervous and musculoskeletal systems Cervical stenosis of spinal canal Spinal stenosis in cervical region [facility] Diagnosis Pure hypercholesterolemia documented [facility] this [facility]* Diagnosis Dementia without behavioral disturbance (HCC)- Primary Dementia, unspecified, without behavioral disturbance [facility] Diagnosis Personal history of traumatic brain injury- Primary Ataxia, unspecified Cervical myelopathy (HCC) Cervical spondylosis with myelopathy History of subarachnoid hemorrhage Personal history of other diseases of circulatory system History of subdural hematoma Mild cognitive impairment Mild cognitive impairment, so stated Prediabetes Other abnormal glucose Screening for depression Encounter for screening examination for other mental health and behavioral disorders documented [facility] this [facility]* Diagnosis Spinal stenosis of lumbar region, unspecified whether neurogenic claudication present [facility] Diagnosis Weight loss Loss of weight [facility]* Diagnosis Finger pain, right Pain in limb Finger injury, right, initial encounter [facility]* Diagnosis History of traumatic brain injury Personal history of traumatic brain injury Balance problem Other symptoms involving nervous and musculoskeletal systems [facility] Diagnosis Left wrist pain Pain in joint, forearm [facility] Diagnosis BPH with obstruction/lower urinary tract symptoms- Primary Hypertrophy of prostate with urinary obstruction and other lower urinary tract symptoms (LUTS) [facility] Diagnosis Subdural hematoma (HCC)- Primary Subdural hemorrhage Dementia without behavioral disturbance (HCC) Dementia, unspecified, without behavioral disturbance Balance problem Other symptoms involving nervous and musculoskeletal systems Frequent falls Personal history of fall Cervical stenosis of spinal canal Spinal stenosis in cervical region History of traumatic brain injury Personal history of traumatic brain injury Memory loss documented in this encounter [facility] for referral (narrative)* Diagnostic Procedure Only (Urgent) - Pending Review Specialty Diagnoses / Procedures Referred By Contac t Referred To Contact XR IMAGING Diagnoses Left wrist pain Procedures XR WRIST INJURY 4V PA/LAT/OBL/SCAPH LEFT RADEX WRIST COMPLETE MINIMUM 3 VIEWS Isabella Dasilva APRN.BILL RECAPITULATION CLERK [address] [place] [address] Xr Imaging Referral ID Status Reason Start Date Expiration Date Visits Requested Visits Authorized [id number] Pending Review Auto-Generat ed Referral 02/08/2022 03/09/2023 1 1 [facility] for referral (narrative)* Diagnostic Procedure Only (Routine) - Authorized Specialty Diagnoses / Procedures Referred By Contac t Referred To Contact XR IMAGING Diagnoses History of traumatic brain injury Balance problem Procedures XR LUMBAR GENERAL 3V AP/LAT/L5-S1 RADEX SPINE LUMBOSACRAL 2/3 VIEWS Ashley Ewing APRN.BILL RECAPITULATION CLERK [address] [facility] [place] [address] Xr Imaging Referral ID Status Reason Start Date Expiration Date Visits Requested Visits Authorized [id number] Authorized Auto-Generat ed Referral 06/17/2022 07/17/2023 1 1 [facility] for referral (narrative)* Diagnostic Procedure Only (Urgent) - Closed Specialty Diagnoses / Procedures Referred By Contac t Referred To Contact XR IMAGING Diagnoses Finger pain, right Finger injury, right, initial encounter Procedures XR DIGIT GENERAL 3V FRONTAL/LAT/OBL RIGHT RADEX FINGR MINIMUM 2 VIEWS Becca Titus APRN.BILL RECAPITULATION CLERK [address] [place] [address] Xr Imaging Referral ID Status Reason Start Date Expiration Date V isits Requested Visits Authorized [id number] Closed Auto-Generate d Referral 11/02/2022 12/02/2023 1 1 [facility] for referral (narrative)* Outpatient Procedure (Routine) - Authorized Specialty Diagnoses / Procedures Referred By Contac t Referred To Contact [facility] Diagnoses Weakness of both lower extremities Procedures PVR ANK PRESS DANIELLE VAS LAB NON-INVAS PHYSIOLOGIC STD EXTREMITY ART 2 LEVEL Fidelina Rosas APRN.BILL RECAPITULATION CLERK [address] [place] [address] [facility] [address] [place] [address] Referral ID Status Reason Start Date Expiration Date Visits Requested Visits Authorized [id number] Authorized Auto-Generat ed Referral 03/01/2023 02/29/2024 1 1 [facility] for referral (narrative)* Diagnostic Procedure Only (Routine) - Authorized Specialty Diagnoses / Procedures Referred By Contac t Referred To Contact US IMAGING Diagnoses Renal lesion Procedures US KIDNEY/BLADDER US RETROPERITONEAL REAL TIME W/IMAGE COMPLETE Fidelina Rosas APRN.BILL RECAPITULATION CLERK [address] [place] [address] Us Imaging Referral ID Status Reason Start Date Expiration Date Visits Requested Visits Authorized [id number] Authorized Auto-Generat ed Referral 04/20/2023 05/19/2024 1 1 [facility] for referral (narrative)* - Pending Review Specialty Diagnoses / Procedures Referred By Contac t Referred To Contact Diagnoses Spinal stenosis of lumbar region, unspecified whether neurogenic claudication present Weakness of both lower extremities Procedures CONSULT TO PHYSICAL THERAPY Chuck Jones PA-C [address] [place] [address] Referral ID Status Reason Start Date Expiration Date V isits Requested Visits Authorized [id number] Pending Review 05/25/2023 08/23/2023 1 1 [facility] for referral (narrative)* Diagnostic Procedure Only (Routine) - Closed Specialty Diagnoses / Procedures [facility] IMAG[facility] Diagnoses Renal lesion Procedures US KIDNEY/BLADDER US RETROPERITONEAL REAL TIME W/IMAGE COMPLETE Fidelina Rosas, SLOAN.SAMARIA [address] [place] [address] [place] [address] Referral ID Status Reason Start Date Expiration Date V isits Requested Visits Authorized [id number] Closed Auto-Generate d Referral 04/20/2023 05/19/2024 1 1 [facility] for referral (narrative)* - Pending Review Specialty Diagnoses / Procedures [facility] To Contact Occupational Therapy Diagnoses Dementia without behavioral disturbance (HCC) Memory loss Procedures CONSULT TO [employer]BEST[employer] WORKER Jayda Ace PA-C [address] [place] [address] Referral ID Status Reason Start Date Expiration Date V isits Requested Visits Authorized [id number] Pending Review 12/13/2023 03/12/2024 1 1 * Medication Prior Authorization - Closed Specialty Diagnoses / Procedures Referred By Debbie t Referred To Contact Jayda Ace PA-C [address] [place] [address] Referral ID Status Reason Start Date Expiration Date Visits Re quested Visits Authorized [id number] Closed 1 1 [facility] for referral (narrative)* Diagnostic Procedure Only (Urgent) - Closed Specialty Diagnoses / Procedures [facility] To Contact XR IMAGING Diagnoses Finger pain, right Finger injury, right, initial encounter Procedures XR DIGIT GENERAL 3V FRONTAL/LAT/OBL RIGHT RADEX FINGR MINIMUM 2 VIEWS Becca Titus, EXECUTOR OF ESTATE.BILL RECAPITULATION CLERK [address] [place] [id number] [place] [address] Referral ID Status Reason Start Date Expiration Date V isits Requested Visits Authorized [id number] Closed Auto-Generate d Referral 11/02/2022 12/02/2023 1 1 [facility] for referral (narrative)* Diagnostic Procedure Only (Routine) - Closed Specialty Diagnoses / Procedures Referred By Contac t Referred To Contact XR IMAGING Diagnoses History of traumatic brain injury Balance problem Procedures XR LUMBAR GENERAL 3V AP/LAT/L5-S1 RADEX SPINE LUMBOSACRAL 2/3 VIEWS Ashley Ewing APRN.BILL RECAPITULATION CLERK [address] [place] [address] [place] [address] Referral ID Status Reason Start Date Expiration Date V isits Requested Visits Authorized [id number] Closed Auto-Generate d Referral 06/17/2022 07/17/2023 1 1 [facility] for referral (narrative)* Diagnostic Procedure Only (Urgent) - Closed Specialty Diagnoses / Procedures Referred By Contac t Referred To Contact XR IMAGING Diagnoses Left wrist pain Procedures XR WRIST INJURY 4V PA/LAT/OBL/SCAPH LEFT RADEX WRIST COMPLETE MINIMUM 3 VIEWS Isabella Dasilva APRN.BILL RECAPITULATION CLERK [address] [place] [address] [place] [address] Referral ID Status Reason Start Date Expiration Date V isits Requested Visits Authorized [id number] Closed Auto-Generate d Referral 02/08/2022 03/09/2023 1 1 [facility] for visit Narrative* Diagnostic Procedure Only (Urgent) - Closed Specialty Diagnoses / Procedures Referred By Contac t Referred To Contact XR IMAGING Diagnoses Finger pain, right Finger injury, right, initial encounter Procedures XR DIGIT GENERAL 3V FRONTAL/LAT/OBL RIGHT RADEX FINGR MINIMUM 2 VIEWS Becca Titus APRN.BILL RECAPITULATION CLERK [address] [place] [address] [place] [address] Referral ID Status Reason Start Date Expiration Date V isits Requested Visits Authorized [id number] Closed Auto-Generate d Referral 11/02/2022 12/02/2023 1 1 [facility] for visit Narrative* Diagnostic Procedure Only (Routine) - Closed Specialty Diagnoses / Procedures Referred By Contac t Referred To Contact XR IMAGING Diagnoses History of traumatic brain injury Balance problem Procedures XR LUMBAR GENERAL 3V AP/LAT/L5-S1 RADEX SPINE LUMBOSACRAL 2/3 VIEWS Ashley Ewing, EXECUTOR OF ESTATE.BILL RECAPITULATION CLERK [address] [place] [address] [place] [address] Referral ID Status Reason Start Date Expiration Date V isits Requested Visits Authorized [id number] Closed Auto-Generate d Referral 06/17/2022 07/17/2023 1 1 [facility] for visit Narrative* Diagnostic Procedure Only (Urgent) - Closed Specialty Diagnoses / Procedures Referred By Contac t Referred To Contact XR IMAGING Diagnoses Left wrist pain Procedures XR WRIST INJURY 4V PA/LAT/OBL/SCAPH LEFT RADEX WRIST COMPLETE MINIMUM 3 VIEWS Isabella Dasilva EXECUTOR OF ESTATE.BILL RECAPITULATION CLERK [address] [place] [address] [place] [address] Referral ID Status Reason Start Date Expiration Date V isits Requested Visits Authorized [id number] Closed Auto-Generate d Referral 02/08/2022 03/09/2023 1 1 [facility] for visit Narrative* Diagnostic Procedure Only (Routine) - Closed Specialty Diagnoses / Procedures Referred By Contac t Referred To Contact [facility] Diagnoses Unspecified injury of right wrist, hand and finger(s), initial encounter Hand injuries, right, initial encounter [S69.91XA room 6 Procedures X-RAY HAND MINIMUM 3 VIEWS XR GENERAL 7 Deepak Reyna, EXECUTOR OF ESTATE.BILL RECAPITULATION CLERK [address] [place] [address] [facility] [address] [place] [address] Referral ID Status Reason Start Date Expiration Date Visits Re quested Visits Authorized [id number] Closed 05/04/2021 10/16/2021 1 0 [facility] Advance Directives No Advanced Directives Records FoundDocuments on File Type Date Recorded Patient Hospice Care Transitions Coordinator Expl anation Advance Directive(s) 08/18/2021 7:55 AM Documents on File Type Date Recorded Patient Hospice Care Transitions Coordinator Expl anation Advance Directive(s) 08/18/2021 7:55 AM Documents on File Type Date Recorded Patient Hospice Care Transitions Coordinator Expl anation Advance Directive(s) 10/04/2023 7:19 AM Documents on File Type Date Recorded Patient Hospice Care Transitions Coordinator Expl anation Advance Directive(s) 10/04/2023 7:19 AM Reason for Referral Specialty Diagnoses / Procedures Referred By Contac t Referred To Contact Ashley Ewing APRN.BILL RECAPITULATION CLERK [address] [place] [id number] Referral ID Status Reason Start Date Expiration Date Visits Re quested Visits Authorized [id number] Closed 1 1 Specialty Diagnoses / Procedures Referred By Contac t Referred To Contact [facility] Diagnoses DDD (degenerative disc disease), lumbar Procedures CONSULT TO PHYSICAL THERAPY PHYSICAL THERAPY EVALUATION HIGH COMPLEX 45 MINS Geoffrey Adams MD [address] [place] [address] [facility] [address] [address] Referral ID Status Reason Start Date Expiration Date Visits Requested Visits Authorized [id number] Pending Review Auto-Generat ed Referral 06/24/2022 06/24/2023 1 1 Specialty Diagnoses / Procedures Referred By Contac t Referred To Contact Jayda Ace PA-C [address] [place] [address] Referral ID Status Reason Start Date Expiration Date Visits Re quested Visits Authorized [id number] Closed 1 1 Specialty Diagnoses / Procedures Referred By Contac t Referred To Contact MR IMAGING Diagnoses Spinal stenosis of lumbar region, unspecified whether neurogenic claudication present Procedures MRI LUMBAR SPINE WO IVCON MRI SPINAL CANAL LUMBAR W/O CONTRAST MATERIAL Ashley EwingBREANNAN.BILL RECAPITULATION CLERK [address] [id number] [facility] Referral ID Status Reason Start Date Expiration Date Visits Requested Visits Authorized [id number] Authorized Auto-Generat ed Referral 04/06/2023 05/05/2024 1 1 Specialty Diagnoses / Procedures Referred By Contac t Referred To Contact [facility] Diagnoses Balance problem Weakness of right lower extremity DDD (degenerative disc disease), lumbar Procedures EMG(NEURO/NI) NERVE CONDUCTION STUDIES 9-10 STUDIES NERVE CONDUCTION STUDIES 5-6 STUDIES NEEDLE EMG EA EXTREMTY W/PARASPINL AREA COMPLETE NEEDLE EMG NONEXTREMTY MSCLES W/NERVE CONDUCTION NERVE CONDUCTION STUDIES 11-12 STUDIES NDL EMG 1 XTR W/WO RELATED PARASPINAL AREAS NEEDLE EMG LMTD STD MUSC 1 XTR/NON-LIMB UNI/BI NEEDLE EMG EA EXTREMITY W/PARASPINL AREA LIMITED Ashley Ewing, SLOAN.BILL RECAPITULATION CLERK [address] [id number] [facility] [place] [id number] Referral ID Status Reason Start Date Expiration Date Visits Requested Visits Authorized [id number] Authorized Auto-Generat ed Referral 04/06/2023 10/16/2023 1 1 Specialty Diagnoses / Procedures Referred By Contac t Referred To Contact [facility] Diagnoses Spinal stenosis of lumbar region, unspecified whether neurogenic claudication present Weakness of both lower extremities Procedures CONSULT TO [facility] OFFICE/OUTPATIENT [facility] 60-74 MINUTES Ashley Ewing APRN.BILL RECAPITULATION CLERK [address] [id number] Referral ID Status Reason Start Date Expiration Date Visits Requested Visits Authorized [id number] Pending Review PCP Requested Referral 04/13/2023 04/12/2024 1 1 Specialty Diagnoses / Procedures Referred By Contac t Referred To Contact Ashley Ewing APRN.BILL RECAPITULATION CLERK [address] [phone] Referral ID Status Reason Start Date Expiration Date Visits Re quested Visits Authorized [id number] Closed 1 1 Specialty Diagnoses / Procedures Referred By Contac t Referred To Contact [facility] Diagnoses Spinal stenosis of cervical region Procedures MRI CERVICAL SPINE WO IVCON MRI SPINAL CANAL CERVICAL W/O CONTRAST MATRL Melanie Chung PA-C [address] [place] [address] [place] [address] Referral ID Status Reason Start Date Expiration Date Visits Requested Visits Authorized [id number] Pending Review Auto-Generat ed Referral 3 09/10/2024 1 1 Specialty Diagnoses / Procedures Referred By Contac t Referred To Contact CT IMAGING Diagnoses SAH (subarachnoid hemorrhage) (HCC) Procedures CT BRAIN WO IVCON CT HEAD/BRAIN W/O CONTRAST MATERIAL Melanie Chung PA-C [address] [place] [address] [place] [address] Referral ID Status Reason Start Date Expiration Date Visits Requested Visits Authorized [id number] Pending Review Auto-Generat ed Referral 3 09/10/2024 1 1 Specialty Diagnoses / Procedures Referred By Contac t Referred To Contact CT IMAGING Diagnoses Lung nodules Procedures CT CHEST WO IVCON DIAGNOSTIC COMPUTED TOMOGRAPHY THORAX W/O CNTRST Fidelina Rosas, EXECUTOR [employer]STATE.BILL RECAPITULATION CLERK [address] [place] [address] [place] [address] Referral ID Status Reason Start Date Expiration Date V isits Requested Visits Authorized [id number] Closed Auto-Generate d Referral 03/04/2023 04/02/2024 1 1 Specialty Diagnoses / Procedures Referred By Contac t Referred To Contact CT IMAGING Diagnoses Subarachnoid hemorrhage (HCC) Procedures CT BRAIN WO IVCON CT HEAD/BRAIN W/O CONTRAST MATERIAL Kwadwo Srinivasan MD, PhD [address] [place] [address] [place] [address] Referral ID Status Reason Start Date Expiration Date V isits Requested Visits Authorized [id number] Closed Auto-Generate d Referral 09/12/2023 10/11/2024 1 1 Specialty Diagnoses / Procedures Referred By Contac t Referred To Contact [facility] Diagnoses Balance problem Frequent falls Cervical stenosis of spinal canal Procedures CONSULT TO PHYSICAL THERAPY PHYSICAL THERAPY EVALUATION HIGH COMPLEX 45 MINS Jayda Ace PA-C [address] [place] [address] [facility] [place] [address] [place] [address] Referral ID Status Reason Start Date Expiration Date Visits Requested Visits Authorized [id number] Pending Review Auto-Generat ed Referral 4 08/07/2025 1 1 Summary Purpose Family History No Family History Records FoundNo Family History Records Found Additional Source Comments Source Comments (unrecognize d section and content) In the event this informatio n is protected by the Federal Confidentiality of Alcohol and Drug Abuse Patient Records regulations: The Federal rules restrict any use of the information to criminally investigate or prosecute any alcohol or drug abuse patient.[facility] CenterIn the event this information is protected by the Federal Confidentiality of Alcohol and Drug Abuse Patient Records regulations: The Federal rules restrict any use of the information to criminally investigate or prosecute any alcohol or drug abuse patient.[facility] CenterIn the event this information is protected by the Federal Confidentiality of Alcohol and Drug Abuse Patient Records regulations: The Federal rules restrict any use of the information to criminally investigate or prosecute any alcohol or drug abuse patient.[facility] CenterIn the event this information is protected by the Federal Confidentiality of Alcohol and Drug Abuse Patient Records regulations: The Federal rules restrict any use of the information to criminally investigate or prosecute any alcohol or drug abuse patient.[facility] CenterIn the event this information is protected by the Federal Confidentiality of Alcohol and Drug Abuse Patient Records regulations: The Federal rules restrict any use of the information to criminally investigate or prosecute any alcohol or drug abuse patient.[facility] CenterIn the event this information is protected by the Federal Confidentiality of Alcohol and Drug Abuse Patient Records regulations: The Federal rules restrict any use of the information to criminally investigate or prosecute any alcohol or drug abuse patient.[facility] CenterIn the event this information is protected by the Federal Confidentiality of Alcohol and Drug Abuse Patient Records regulations: The Federal rules restrict any use of the information to criminally investigate or prosecute any alcohol or drug abuse patient.[facility] CenterIn the event this information is protected by the Federal Confidentiality of Alcohol and Drug Abuse Patient Records regulations: The Federal rules restrict any use of the information to criminally investigate or prosecute any alcohol or drug abuse patient.[facility] CenterIn the event this information is protected by the Federal Confidentiality of Alcohol and Drug Abuse Patient Records regulations: The Federal rules restrict any use of the information to criminally investigate or prosecute any alcohol or drug abuse patient.[facility] CenterIn the event this information is protected by the Federal Confidentiality of Alcohol and Drug Abuse Patient Records regulations: The Federal rules restrict any use of the information to criminally investigate or prosecute any alcohol or drug abuse patient.[facility] CenterIn the event this information is protected by the Federal Confidentiality of Alcohol and Drug Abuse Patient Records regulations: The Federal rules restrict any use of the information to criminally investigate or prosecute any alcohol or drug abuse patient.[facility] CenterIn the event this information is protected by the Federal Confidentiality of Alcohol and Drug Abuse Patient Records regulations: The Federal rules restrict any use of the information to criminally investigate or prosecute any alcohol or drug abuse patient.[facility] CenterIn the event this information is protected by the Federal Confidentiality of Alcohol and Drug Abuse Patient Records regulations: The Federal rules restrict any use of the information to criminally investigate or prosecute any alcohol or drug abuse patient.[facility] CenterIn the event this information is protected by the Federal Confidentiality of Alcohol and Drug Abuse Patient Records regulations: The Federal rules restrict any use of the information to criminally investigate or prosecute any alcohol or drug abuse patient.[facility] CenterIn the event this information is protected by the Federal Confidentiality of Alcohol and Drug Abuse Patient Records regulations: The Federal rules restrict any use of the information to criminally investigate or prosecute any alcohol or drug abuse patient.[facility] CenterIn the event this information is protected by the Federal Confidentiality of Alcohol and Drug Abuse Patient Records regulations: The Federal rules restrict any use of the information to criminally investigate or prosecute any alcohol or drug abuse patient.[facility] CenterIn the event this information is protected by the Federal Confidentiality of Alcohol and Drug Abuse Patient Records regulations: The Federal rules restrict any use of the information to criminally investigate or prosecute any alcohol or drug abuse patient.[facility] CenterIn the event this information is protected by the Federal Confidentiality of Alcohol and Drug Abuse Patient Records regulations: The Federal rules restrict any use of the information to criminally investigate or prosecute any alcohol or drug abuse patient.[facility] CenterIn the event this information is protected by the Federal Confidentiality of Alcohol and Drug Abuse Patient Records regulations: The Federal rules restrict any use of the information to criminally investigate or prosecute any alcohol or drug abuse patient.[facility] CenterIn the event this information is protected by the Federal Confidentiality of Alcohol and Drug Abuse Patient Records regulations: The Federal rules restrict any use of the information to criminally investigate or prosecute any alcohol or drug abuse patient.[facility] CenterIn the event this information is protected by the Federal Confidentiality of Alcohol and Drug Abuse Patient Records regulations: The Federal rules restrict any use of the information to criminally investigate or prosecute any alcohol or drug abuse patient.[facility] CenterIn the event this information is protected by the Federal Confidentiality of Alcohol and Drug Abuse Patient Records regulations: The Federal rules restrict any use of the information to criminally investigate or prosecute any alcohol or drug abuse patient.[facility] CenterIn the event this information is protected by the Federal Confidentiality of Alcohol and Drug Abuse Patient Records regulations: The Federal rules restrict any use of the information to criminally investigate or prosecute any alcohol or drug abuse patient.[facility] CenterIn the event this information is protected by the Federal Confidentiality of Alcohol and Drug Abuse Patient Records regulations: The Federal rules restrict any use of the information to criminally investigate or prosecute any alcohol or drug abuse patient.[facility] CenterIn the event this information is protected by the Federal Confidentiality of Alcohol and Drug Abuse Patient Records regulations: The Federal rules restrict any use of the information to criminally investigate or prosecute any alcohol or drug abuse patient.[facility] CenterIn the event this information is protected by the Federal Confidentiality of Alcohol and Drug Abuse Patient Records regulations: The Federal rules restrict any use of the information to criminally investigate or prosecute any alcohol or drug abuse patient.[facility] CenterIn the event this information is protected by the Federal Confidentiality of Alcohol and Drug Abuse Patient Records regulations: The Federal rules restrict any use of the information to criminally investigate or prosecute any alcohol or drug abuse patient.[facility] CenterIn the event this information is protected by the Federal Confidentiality of Alcohol and Drug Abuse Patient Records regulations: The Federal rules restrict any use of the information to criminally investigate or prosecute any alcohol or drug abuse patient.[facility] CenterIn the event this information is protected by the Federal Confidentiality of Alcohol and Drug Abuse Patient Records regulations: The Federal rules restrict any use of the information to criminally investigate or prosecute any alcohol or drug abuse patient.[facility] CenterIn the event this information is protected by the Federal Confidentiality of Alcohol and Drug Abuse Patient Records regulations: The Federal rules restrict any use of the information to criminally investigate or prosecute any alcohol or drug abuse patient.[facility] CenterIn the event this information is protected by the Federal Confidentiality of Alcohol and Drug Abuse Patient Records regulations: The Federal rules restrict any use of the information to criminally investigate or prosecute any alcohol or drug abuse patient.[facility] CenterIn the event this information is protected by the Federal Confidentiality of Alcohol and Drug Abuse Patient Records regulations: The Federal rules restrict any use of the information to criminally investigate or prosecute any alcohol or drug abuse patient.[facility] CenterIn the event this information is protected by the Federal Confidentiality of Alcohol and Drug Abuse Patient Records regulations: The Federal rules restrict any use of the information to criminally investigate or prosecute any alcohol or drug abuse patient.[facility] CenterIn the event this information is protected by the Federal Confidentiality of Alcohol and Drug Abuse Patient Records regulations: The Federal rules restrict any use of the information to criminally investigate or prosecute any alcohol or drug abuse patient.[facility] CenterIn the event this information is protected by the Federal Confidentiality of Alcohol and Drug Abuse Patient Records regulations: The Federal rules restrict any use of the information to criminally investigate or prosecute any alcohol or drug abuse patient.[facility] CenterIn the event this information is protected by the Federal Confidentiality of Alcohol and Drug Abuse Patient Records regulations: The Federal rules restrict any use of the information to criminally investigate or prosecute any alcohol or drug abuse patient.[facility] CenterIn the event this information is protected by the Federal Confidentiality of Alcohol and Drug Abuse Patient Records regulations: The Federal rules restrict any use of the information to criminally investigate or prosecute any alcohol or drug abuse patient.[facility] CenterIn the event this information is protected by the Federal Confidentiality of Alcohol and Drug Abuse Patient Records regulations: The Federal rules restrict any use of the information to criminally investigate or prosecute any alcohol or drug abuse patient.[facility] CenterIn the event this information is protected by the Federal Confidentiality of Alcohol and Drug Abuse Patient Records regulations: The Federal rules restrict any use of the information to criminally investigate or prosecute any alcohol or drug abuse patient.[facility] CenterIn the event this information is protected by the Federal Confidentiality of Alcohol and Drug Abuse Patient Records regulations: The Federal rules restrict any use of the information to criminally investigate or prosecute any alcohol or drug abuse patient.[facility] CenterIn the event this information is protected by the Federal Confidentiality of Alcohol and Drug Abuse Patient Records regulations: The Federal rules restrict any use of the information to criminally investigate or prosecute any alcohol or drug abuse patient.[facility] CenterIn the event this information is protected by the Federal Confidentiality of Alcohol and Drug Abuse Patient Records regulations: The Federal rules restrict any use of the information to criminally investigate or prosecute any alcohol or drug abuse patient.[facility] CenterIn the event this information is protected by the Federal Confidentiality of Alcohol and Drug Abuse Patient Records regulations: The Federal rules restrict any use of the information to criminally investigate or prosecute any alcohol or drug abuse patient.[facility] CenterIn the event this information is protected by the Federal Confidentiality of Alcohol and Drug Abuse Patient Records regulations: The Federal rules restrict any use of the information to criminally investigate or prosecute any alcohol or drug abuse patient.[facility] CenterIn the event this information is protected by the Federal Confidentiality of Alcohol and Drug Abuse Patient Records regulations: The Federal rules restrict any use of the information to criminally investigate or prosecute any alcohol or drug abuse patient.[facility] CenterIn the event this information is protected by the Federal Confidentiality of Alcohol and Drug Abuse Patient Records regulations: The Federal rules restrict any use of the information to criminally investigate or prosecute any alcohol or drug abuse patient.[facility] CenterIn the event this information is protected by the Federal Confidentiality of Alcohol and Drug Abuse Patient Records regulations: The Federal rules restrict any use of the information to criminally investigate or prosecute any alcohol or drug abuse patient.[facility] CenterIn the event this information is protected by the Federal Confidentiality of Alcohol and Drug Abuse Patient Records regulations: The Federal rules restrict any use of the information to criminally investigate or prosecute any alcohol or drug abuse patient.[facility] CenterIn the event this information is protected by the Federal Confidentiality of Alcohol and Drug Abuse Patient Records regulations: The Federal rules restrict any use of the information to criminally investigate or prosecute any alcohol or drug abuse patient.[facility] CenterIn the event this information is protected by the Federal Confidentiality of Alcohol and Drug Abuse Patient Records regulations: The Federal rules restrict any use of the information to criminally investigate or prosecute any alcohol or drug abuse patient.[facility] CenterIn the event this information is protected by the Federal Confidentiality of Alcohol and Drug Abuse Patient Records regulations: The Federal rules restrict any use of the information to criminally investigate or prosecute any alcohol or drug abuse patient.[facility] CenterIn the event this information is protected by the Federal Confidentiality of Alcohol and Drug Abuse Patient Records regulations: The Federal rules restrict any use of the information to criminally investigate or prosecute any alcohol or drug abuse patient.[facility] CenterIn the event this information is protected by the Federal Confidentiality of Alcohol and Drug Abuse Patient Records regulations: The Federal rules restrict any use of the information to criminally investigate or prosecute any alcohol or drug abuse patient.[facility] CenterIn the event this information is protected by the Federal Confidentiality of Alcohol and Drug Abuse Patient Records regulations: The Federal rules restrict any use of the information to criminally investigate or prosecute any alcohol or drug abuse patient.[facility] CenterIn the event this information is protected by the Federal Confidentiality of Alcohol and Drug Abuse Patient Records regulations: The Federal rules restrict any use of the information to criminally investigate or prosecute any alcohol or drug abuse patient.[facility] CenterIn the event this information is protected by the Federal Confidentiality of Alcohol and Drug Abuse Patient Records regulations: The Federal rules restrict any use of the information to criminally investigate or prosecute any alcohol or drug abuse patient.[facility] CenterIn the event this information is protected by the Federal Confidentiality of Alcohol and Drug Abuse Patient Records regulations: The Federal rules restrict any use of the information to criminally investigate or prosecute any alcohol or drug abuse patient.[facility] CenterIn the event this information is protected by the Federal Confidentiality of Alcohol and Drug Abuse Patient Records regulations: The Federal rules restrict any use of the information to criminally investigate or prosecute any alcohol or drug abuse patient.[facility] CenterIn the event this information is protected by the Federal Confidentiality of Alcohol and Drug Abuse Patient Records regulations: The Federal rules restrict any use of the information to criminally investigate or prosecute any alcohol or drug abuse patient.[facility] CenterIn the event this information is protected by the Federal Confidentiality of Alcohol and Drug Abuse Patient Records regulations: The Federal rules restrict any use of the information to criminally investigate or prosecute any alcohol or drug abuse patient.[facility] CenterIn the event this information is protected by the Federal Confidentiality of Alcohol and Drug Abuse Patient Records regulations: The Federal rules restrict any use of the information to criminally investigate or prosecute any alcohol or drug abuse patient.[facility] CenterIn the event this information is protected by the Federal Confidentiality of Alcohol and Drug Abuse Patient Records regulations: The Federal rules restrict any use of the information to criminally investigate or prosecute any alcohol or drug abuse patient.[facility] Reason for Visit (unrecogniz ed section and content) Reason Comments Mass top of left arm x 24 hours, some pain twisted while using drill Reason Comments Results Reason Comments requesting medication Reason Comments New Patient Balance & memory iss ues; 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 Specialty Diagnoses / Procedures Referred By Contac t Referred To Contact Neurology Diagnoses History of traumatic brain injury Procedures CONSULT TO NEUROLOGY OFFICE/OUTPATIENT NEW HIGH MDM 60-74 MINUTES Geoffrey Adams MD [address] [place] [address] Referral ID Status Reason Start Date Expiration Date Visits Requested Visits Authorized [id number] Pending Review PCP Requested Referral 04/29/2022 04/29/2023 1 1 Reason Comments Follow Up Had MRI, lab work, a nd saw neuro Reason Comments Follow Up Reason Onset Date Comments Refill Request 09/24/2022 Reason Onset Date Comments Refill Request 10/15/2022 Reason Comments right middle finger pain Fell yesterday Reason Comments Fracture Reason Onset Date Comments Refill Request 01/18/2023 Reason Comments Musculoskeletal Problem Trouble standing after standing for 10-15 minutes, just in legs, legs get weak Reason Comments Results Reason Comments Patient Update Patient Question Reason Comments Orders Reason Comments Recheck Review CT results Reason Onset Date Comments Refill Request 05/21/2023 Reason Comments New Patient Low Back Pain Specialty Diagnoses / Procedures Referred By Contac t Referred To Contact [facility] Diagnoses Spinal stenosis of lumbar region, unspecified whether neurogenic claudication present Weakness of both lower extremities Procedures [facility] OFFICE/OUTPATIENT [facility] 60-74 MINUTES Ashley Ewing, SLOAN.BILL RECAPITULATION CLERK [address] [place] [address] Referral ID Status Reason Start Date Expiration Date Visits Requested Visits Authorized [phone] Pending Review PCP Requested Referral 04/13/2023 04/12/2024 1 1 Reason Comments 6 Month Exam Reason Comments Benign Prostatic Hypertrophy Urinary Retention Specialty Diagnoses / Procedures Referred By Contac t Referred To Contact Urology Diagnoses Renal lesion Urinary retention Procedures CONSULT TO UROLOGY OFFICE/OUTPATIENT [facility] 60-74 MINUTES Fidelina Rosas, EXECUTOR OF ESTATE.BILL RECAPITULATION CLERK [address] [place] [address] Referral ID Status Reason Start Date Expiration Date Visits Requested Visits Authorized [id number] Pending Review PCP Requested Referral 04/26/2023 04/25/2024 1 1 Reason Onset Date Comments Transition Of Care 08/15/2023 TCM Initial A [facility] Discharge 08/12/23 Reason Onset Date Comments Transition Of Care 08/20/2023 TCM Follow Up Reason Comments Radiology CT Specialty Diagnoses / Procedures Referred By Contac t Referred To Contact CT IMAGING Diagnoses Lung nodules Procedures CT CHEST WO IVCON DIAGNOSTIC COMPUTED TOMOGRAPHY THORAX W/O CNTRST Fidelina Rosas, EXECUTOR OF ESTATE.BILL RECAPITULATION CLERK [address] [place] [address] [place] [address] Referral ID Status Reason Start Date Expiration Date V isits Requested Visits Authorized [id number] Closed Auto-Generate d Referral 03/04/2023 04/02/2024 1 1 Reason Comments Radiology US Specialty Diagnoses / Procedures Referred By Contac t Referred To Contact US IMAGING Diagnoses Renal lesion Procedures US KIDNEY/BLADDER US RETROPERITONEAL REAL TIME W/IMAGE COMPLETE Fidelina Rosas, EXECUTOR OF ESTATE.BILL RECAPITULATION CLERK [address] [place] [address] [place] [address] Referral ID Status Reason Start Date Expiration Date V isits Requested Visits Authorized [id number] Closed Auto-Generate d Referral 04/20/2023 05/19/2024 1 1 Reason Onset Date Comments Transition Of Care 08/27/2023 TCM follow up [facility] Discharge 08/12/23 Reason Comments Patient Update Reason Comments Patient Question Reason Comments New Patient Reason Comments Established Patient Specialty Diagnoses / Procedures Referred By Contac t Referred To Contact CT IMAGING Diagnoses Subarachnoid hemorrhage (HCC) Procedures CT BRAIN WO IVCON CT HEAD/BRAIN W/O CONTRAST MATERIAL Kwadwo Srinivasan MD, PhD [address] [facility] [place] [address] [place] [address] Referral ID Status Reason Start Date Expiration Date V isits Requested Visits Authorized [id number] Closed Auto-Generate d Referral 10/13/2023 11/11/2024 1 1 Specialty Diagnoses / Procedures Referred By Contac t Referred To Contact CT IMAGING Diagnoses Subarachnoid hemorrhage (HCC) Procedures CT BRAIN WO IVCON CT HEAD/BRAIN W/O CONTRAST MATERIAL Kwadwo Srinivasan MD, PhD [address] [place] [address] Ct Imaging [facility] Referral ID Status Reason Start Date Expiration Date V isits Requested Visits Authorized [id number] Closed Auto-Generate d Referral 09/12/2023 10/11/2024 1 1 Reason Comments Follow Up Pt reported taking N amenda denied changes. 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 Jayda Ace PA-C [address] [place] [address] [address] [place] [address] [place] [address] Referral ID Status Reason Start Date Expiration Date V isits Requested Visits Authorized [id number] Authorized 12/13/2023 10/16/2024 99 99 Reason Comments Radiology MRI Specialty Diagnoses / Procedures Referred By Contac t Referred To Contact MR IMAGING Diagnoses Spinal stenosis of lumbar region, unspecified whether neurogenic claudication present Procedures MRI LUMBAR SPINE WO IVCON MRI SPINAL CANAL LUMBAR W/O CONTRAST MATERIAL Ashley Ewing, SLOAN.BILL RECAPITULATION CLERK [address] [place] [address] [place] [address] Referral ID Status Reason Start Date Expiration Date V isits Requested Visits Authorized [id number] Closed Auto-Generate d Referral 04/06/2023 05/05/2024 1 1 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 Follow Up Benign Prostatic Hypertrophy Reason Comments Established Patient Memory, [facility] 04/24 Care Teams (unrecognized sec tion and content) Storeroom Attendant Relationship Specialty Start Date End Date Geoffrey Adams MD [address] [place] [id number] PCP - General Family Practice 02/14/18 Storeroom Attendant Relationship Specialty Start Date End Date Geoffrey Adams MD [address] [place] [id number] PCP - General Family Practice 02/14/18 Storeroom Attendant Relationship Specialty Start Date End Date Geoffrey Adams MD [address] [place] [id number] PCP - General Family Practice 02/14/18 Storeroom Attendant Relationship Specialty Start Date End Date Geoffrey Adams MD [address] [place] [id number] PCP - General Family Practice 02/14/18 Storeroom Attendant Relationship Specialty Start Date End Date Geoffrey Adams MD [address] [place] [id number] PCP - General Family Practice 02/14/18 Storeroom Attendant Relationship Specialty Start Date End Date Geoffrey Adams MD [address] [place] [id number] PCP - General Family Practice 02/14/18 Storeroom Attendant Relationship Specialty Start Date End Date Geoffrey Adams MD [address] [facility] [place] [address] PCP - General Family Medicine 02/14/18 Storeroom Attendant Relationship Specialty Start Date End Date Geoffrey Adams MD [address] [place] [address] PCP - General Family Medicine 02/14/18 Storeroom Attendant Relationship Specialty Start Date End Date Geoffrey Adams MD [address] [place] [place] [address] PCP - General Family Medicine 02/14/18 Storeroom Attendant Relationship Specialty Start Date End Date Geoffrey Adams MD [address] [place] [address] PCP - General Family Medicine 02/14/18 Storeroom Attendant Relationship Specialty Start Date End Date Geoffrey Adams MD [address] [place] [place] [address] PCP - General Family Medicine 02/14/18 Storeroom Attendant Relationship Specialty Start Date End Date Geoffrey Adams MD [address] [place] [address] PCP - General Family Medicine 02/14/18 Storeroom Attendant Relationship Specialty Start Date End Date Geoffrey Adams MD [address] [place] [address] PCP - General Family Medicine 02/14/18 Storeroom Attendant Relationship Specialty Start Date End Date Geoffrey Adams MD [address] [place] [address] PCP - General Family Medicine 02/14/18 Storeroom Attendant Relationship Specialty Start Date End Date Geoffrey Adams MD [address] [place] [address] PCP - General Family Medicine 02/14/18 Storeroom Attendant Relationship Specialty Start Date End Date Geoffrey Adams MD [address] [place] [address] PCP - General Family Medicine 02/14/18 Storeroom Attendant Relationship Specialty Start Date End Date Geoffrey Adams MD [address] [place] [address] PCP - General Family Medicine 02/14/18 Storeroom Attendant Relationship Specialty Start Date End Date Geoffrey Adams MD [address] [place] [address] PCP - General Family Medicine 02/14/18 Storeroom Attendant Relationship Specialty Start Date End Date Geoffrey Adams MD [address] [place] [address] PCP - General Family Medicine 02/14/18 Storeroom Attendant Relationship Specialty Start Date End Date Geoffrey Adams MD [address] [place] [address] PCP - General Family Medicine 02/14/18 Storeroom Attendant Relationship Specialty Start Date End Date Geoffrey Adams MD [address] [place] [address] PCP - General Family Medicine 02/14/18 Storeroom Attendant Relationship Specialty Start Date End Date Geoffrey Adams MD [address] [place] [address] PCP - General Family Medicine 02/14/18 Storeroom Attendant Relationship Specialty Start Date End Date Geofrfey Adams MD [address] [place] [address] PCP - General Family Medicine 02/14/18 Storeroom Attendant Relationship Specialty Start Date End Date Geoffrey Adams MD [address] [place], [place] [address]48[address] PCP - General Family Medicine 02/14/18 Storeroom Attendant Relationship Specialty Start Date End Date Geoffrey Adams MD [address] [place], [place] [address]171 PCP - General Family Medicine 02/14/18 Storeroom Attendant Relationship Specialty Start Date End Date Geoffrey Adams MD [address] [place], [place] 4380[address] PCP - General Family Medicine 02/14/18 Luis Raphael RN [address] [place] [address] Primary Care Machine Hostler Internal Medicine 08/15/23 09/14/23 Storeroom Attendant Relationship Specialty Start Date End Date Geoffrey Adams MD [address] [place] [address] PCP - General Family Medicine 02/14/18 Storeroom Attendant Relationship Specialty Start Date End Date Geoffrey Adams MD [address] [place] [address] PCP - General Family Medicine 02/14/18 Luis Raphael RN [address] [place] [address] Primary Care Machine Hostler Internal Medicine 08/15/23 09/14/23 Storeroom Attendant Relationship Specialty Start Date End Date Geoffrey Adams MD [address] [place] [address] PCP - General Family Medicine 02/14/18 Kwadwo Srinivasan MD, PhD [address] [place], [place] [address] Neurosurgery 09/19/23 Storeroom Attendant Relationship Specialty Start Date End Date Geoffrey Adams MD [address] [place], [place] [address]97[address] PCP - General Family Medicine 02/14/18 Kwadwo Srinivasan MD, PhD [address] [place] [address] Neurosurgery 09/19/23 Storeroom Attendant Relationship Specialty Start Date End Date Geoffrey Adams MD [address] [place], [place] 611751 PCP - General Family Medicine 02/14/18 Kwadwo Srinivasan MD, PhD [address] [place] [address] Neurosurgery 09/19/23 Storeroom Attendant Relationship Specialty Start Date End Date Geoffrey Adams MD [address] [place], [place] 495271 PCP - General Family Medicine 02/14/18 Kwadwo Srinivasan MD, PhD [address] [place], [place] 244[address]83 Neurosurgery 09/19/23 Storeroom Attendant Relationship Specialty Start Date End Date Geoffrey Adams MD [address] [place] [address] PCP - General Family Medicine 02/14/18 Kwadwo Srinivasan MD, PhD [address] [place] [address] Neurosurgery 09/19/23 Storeroom Attendant Relationship Specialty Start Date End Date Geoffrey Adams MD [address] [place] [address] PCP - General Family Medicine 02/14/18 Kwadwo Srinivasan MD, PhD [address] [place] [address] Neurosurgery 09/19/23 Storeroom Attendant Relationship Specialty Start Date End Date Geoffrey Adams MD [address] [place] [address] PCP - General Family Medicine 02/14/18 Kwadwo Srinivasan MD, PhD [address] [place] [address] Neurosurgery 09/19/23 Storeroom Attendant Relationship Specialty Start Date End Date Geoffrey Adams MD [address] [place], [place] 3718[address] PCP - General Family Medicine 02/14/18 Kwadwo Srinivasan MD, PhD [address] [place] [address] Neurosurgery 09/19/23 Storeroom Attendant Relationship Specialty Start Date End Date Geoffrey Adams MD [address] [place] [address] PCP - General Family Medicine 02/14/18 Kwadwo Srinivasan MD, PhD [address] [facility] [place] [address] Neurosurgery 09/19/23 Storeroom Attendant Relationship Specialty Start Date End Date Geoffrey Adams MD [address] [place] [address] PCP - General Family Medicine 02/14/18 Kwadwo Srinivasan MD, PhD [address] [place] [address] Neurosurgery 09/19/23 Storeroom Attendant Relationship Specialty Start Date End Date Geoffrey Adams MD [address] [place], [place] 878[address] PCP - General Family Medicine 02/14/18 Kwadwo Srinivasan MD, PhD [address] [place] [address] Neurosurgery 09/19/23 Storeroom Attendant Relationship Specialty Start Date End Date Geoffrey Adams MD [address] [place], [place] 204411 PCP - General Family Medicine 02/14/18 Kwadwo Srinivasan MD, PhD [address] [place] [address] Neurosurgery 09/19/23 Storeroom Attendant Relationship Specialty Start Date End Date Geoffrey Adams MD [address] [place] [address] PCP - General Family Medicine 02/14/18 Kwadwo Srinivasan MD, PhD [address] [facility] [place] [address] Neurosurgery 09/19/23 Storeroom Attendant Relationship Specialty Start Date End Date Geoffrey Adams MD [address] [place], [place] 401211 PCP - General Family Medicine 02/14/18 Kwadwo Srinivasan MD, PhD [address] [facility] [place] [address] Neurosurgery 09/19/23 Storeroom Attendant Relationship Specialty Start Date End Date Geoffrey Adams MD [address] [place], [place] 194931 PCP - General Family Medicine 02/14/18 Storeroom Attendant Relationship Specialty Start Date End Date Geoffrey Adams MD [address] [place], [place] 778591 PCP - General Family Medicine 02/14/18 Storeroom Attendant Relationship Specialty Start Date End Date Geoffrey Adams MD [address] [place], [place] 030541 PCP - General Family Medicine 02/14/18 Kwadwo Srinivasan MD, PhD [address] [facility] [place] [address] Neurosurgery 09/19/23 Storeroom Attendant Relationship Specialty Start Date End Date Geoffrey Adams MD [address] [place] [address] PCP - General Family Medicine 02/14/18 Storeroom Attendant Relationship Specialty Start Date End Date Geoffrey Adams MD [address] [place], [place] 7265[address] PCP - General Family Medicine 02/14/18 Kwadwo Srinivasan MD, PhD [address] [facility] [place] [address] Neurosurgery 09/19/23 Storeroom Attendant Relationship Specialty Start Date End Date Geoffrey Adams MD [address] [place], [place] 0[address]051 PCP - General Family Medicine 02/14/18 Storeroom Attendant Relationship Specialty Start Date End Date Geoffrey Adams MD [address] [place], [place] 102261 PCP - General Family Medicine 02/14/18 Storeroom Attendant Relationship Specialty Start Date End Date Geoffrey Adams MD [address] [place], [place] 891681 PCP - General Family Medicine 02/14/18 Kwadwo Srinivasan MD, PhD [address] [facility] [place] [address] Neurosurgery 09/19/23 Storeroom Attendant Relationship Specialty Start Date End Date Geoffrey Adams MD [address] [place], [place] 142491 PCP - General Family Medicine 02/14/18 Kwadwo Srinivasan MD, PhD [address] [facility] [place] [address] Neurosurgery 09/19/23 (unrecognized sect ion and content) No Status Records FoundNo Status Records Found INFORMATION SOURCE (unrecogn ized section and content) DATE CREATED AUTHOR 07/14/2024 [facility] DATE CREATED AUTHOR AUTHOR'S ANANTMANOLO CHILDERSJOSE LUIS 08/12/2024 [facility] FOR RECORDS PERTAINING TO PATIENTS WHO ARE OR HAVE BEEN ENROLLED IN A CHEMICAL DEPENDENCY/SUBSTANCEABUSE PROGRAM, SOME INFORMATION MAY BE OMITTED. This clinical summary was aggregated from multiple sources. Caution should be exercised in using it in the provision of clinical care. This summary normalizes information from multiple sources, and as a consequence, information in this document may materially change the coding, format and clinical context of patient data. In addition, data may be omitted in some cases. CLINICAL DECISIONS SHOULD BE BASED ON THE PRIMARY CLINICAL RECORDS. [employer] provides no warranty or guarantee of the accuracy or completeness of information in this document.
== END 2024-08-13 19:06 | disposition home or self-care (01) ==
PROVIDERS: Emergency Provider Emergency Medicine; PCP Family Medicine; Visit Provider Emergency Medicine
DX: S00.03XA Contusion of scalp, initial encounter (principal); F17.210 Nicotine dependence, cigarettes, uncomplicated; W19.XXXA Unspecified fall, initial encounter
CPT/HCPCS: 70450; 72125; 99284

== ENCOUNTER 2024-10-15 11:30 | Outpatient (RCR) | payer MEDICARE, SELFPAY ==
--- NOTE | 2024-08-14 13:53 | HP.PTEVAL ---
Patient's Visit Information Visit Information Visit Information: LYRIC PADRON is a 69 year old M referred to Physical Therapy by JAYLIN SORIANO with a diagnosis of gait deficit, balance problem, ferq falls, C-spine stenosis. Date of Evaluation: 08/14/24 Physical Therapist: BARRY Larson Visit Plan Frequency: 2x /Week Duration: 2 Months Plan: +++Gait BELT AT ALL TIMES+++ reports that he likes to tip FW when he tries to back into his chair. Pt has very bad cervical stenosis ( reports that they were told at some point he would lose the ability in his legs to walk or stand) 2X/ week for 8 weeks for LE strength, standing balance (start in // bars), gait endurance (gait belt at all times), functional transfers with HEP Subjective Subjective: Pt had a fall yesterday and he hit his head and ended up in ER and no brain bleed. His legs are getting weaker and his balance is getting a lot worse. They were told at [facility] that he has a pinched nerve in his neck that is causing him to lose control of his legs. The surgery was iffy as to whether that the surgery would work. They do not have a follow up at this time but she is thinking of calling the Dr to see if there has been any changes. He has done PT multiple times. He uses to use the machines through [employer] and has not done that or driving since May. He has no steps once inside the home as they live all on one level. They are in the process of getting a ramp so they do not have to use steps to get in and out. He has a walk in shower with a bench seat. No trouble getting in and out of bed. He does fall a lot (5 falls in 3-4 months). They are encouraging him to walk with the rollator. reports that he likes to tip FW when he tries to back into his chair. Objective Objective: Gait: Walks with rollator with more dragging his R leg with gait. He tends to scuff that R foot on the floor. He is able to walk BW with the rollator with CGA with no LOB but more slow. When walking without the rollator he walks with slower step length and scissors at times. It seems that he starts off strong and then within 20 feet his legs start to weaken. He is able to heel and toe raise without much difficulty LE MMT R hip flex 16 and L 16.2 R knee ext 22.3 and L 22.7 R knee flex 13.9 and L 14.9 R 13.6 and L 11.6 FGA 7 Tinetti 11 Pt is able to stand with EO and EC X 30 seconds with CGA Balance/Special Test Scores Functional Gait Assessment Score: 7 % Disability: 76.6700 Tinetti Balance Score: 8 Tinetti Gait Score: 3 Tinetti Balance & Gait Score: 11 Lower Extremity Functional Score: 14 Goals Goal 1:: I HEP Goal Time Frame: 6-8 Weeks Goal 2:: Be able to walk entire dept with rollator with advancing R LE without dragging it Goal Time Frame: 6-8 Weeks Goal 3:: Improve balance (score was 11 at eval) Goal Time Frame: 6-8 Weeks Rehabilitation Potential Rehabilitation Potential: Good Anticipated Interventions Patient/Client Instruction: Educate patient on: Condition and Plan of Care For the Purpose of:: To improve muscle performance and motor function, To improve ability to perform ADL's, To increase tolerance to activity/condition/position, To improve performance and independence with ADL's, To decrease level of supervision to perform tasks, To improve ability of physical actions for home/community/work/leisure, To improve gait and locomotor functions, To improve health of tissue, To increase flexibility/ROM, To improve endurance, To improve balance and To improve safety with gait Therapeutic Exercise to Include: Strength training, Endurance training, Balance training, Postural training, Flexibilty training, Gait and locomotor training, Neuromotor development and Active ROM For the Purpose of:: To improve nutrient delivery to tissue, To improve muscle performance and motor function, To improve ability to perform ADL's, To increase tolerance to activity/condition/position, To improve performance and independence with ADL's, To decrease level of supervision to perform tasks, To improve ability of physical actions for home/community/work/leisure, To improve gait and locomotor functions, To improve health of tissue, To decrease soft tissue restriction, To increase flexibility/ROM, To improve balance, To improve safety with gait and To assume or resume ADL's Functional Training to Include: Gait training For the Purpose of:: To improve gait and locomotor functions and To improve safety with gait Text: Thank you for the opportunity to evaluate your patient. For Medicare and Medicare HMO plans, please review the plan of care and approve it. It will need to be FAXED BACK to us at [phone] for Medicare purposes. For Medicare only, by signing this I certify the plan of care. Please let me know if there are questions or concerns regarding this plan of care. Physician Signature: Date:
--- NOTE | 2024-09-12 13:16 | HP.PTREVAL_ITS ---
Re-Evaluation Intro: JAYLIN SORIANO, It has been my pleasure to treat LYRIC PADRON over the last 9 visits for gait deficit, balance problem, ferq falls, C-spine stenosis. Please see the progress note below for an update on the physical therapy plan of care! Subjective Subjective: Pt feels that PT is helping him with his balance. He had a fall on Tuesday he had his walker inside the house and turned away from his walker to close the sliding glass door and he went down hard. He did not hurt himself. It stunned him but reports that it did not appear to hit his head and his winter jacket softened the fall. has noticed slight changes at home. He i s doing better getting better out of a chair but still struggles with lowering himself down into the chair. Walking long distances dragging his R leg. Objective Objective/Function: Pt plops into his chair when he does not think about it. He is unsafe when backing into his chair to sit down as he pushes his rollator away and sits down at an angle a lot of the time. FGA: 7 Pt struggles with stepping out away from his walker keeping one hand on the walker to be able to simulate closing a slide door Plan Plan Plan: +++Gait BELT AT ALL TIMES+++ Work with stepping away from the bar or rollator as if to turn oneself to close a slider door, lowering self to the chair and gait endurance.. or standing to take off his coat. reports that he likes to tip FW when he tries to back into his chair. Pt has very bad cervical stenosis ( reports that they were told at some point he would lose the ability in his legs to walk or stand) 2X/ week for 8 weeks for LE strength, standing balance (start in // bars), gait endurance (gait belt at all times), functional transfers with HEP Balance/Gait/Functional tests Balance/Special Test Scores Functional Gait Assessment Score: 7 % Disability: 76.6700 Tinetti Balance Score: 8 Tinetti Gait Score: 3 Tinetti Balance & Gait Score: 11 Lower Extremity Functional Score: 15 Goals Goals Goal 1:: I HEP Goal Time Frame: 6-8 Weeks Goal 2:: Be able to walk entire dept with rollator with advancing R LE without dragging it Goal Time Frame: 6-8 Weeks Goal Progress: Progressing Goal 3:: Improve balance (score was 11 at eval) Goal Time Frame: 6-8 Weeks Goal 4:: Be able to slowly lower self down to the chair with arms without polpping Goal Time Frame: 6-8 Weeks Goal Progress: Progressing Anticipated Interventions Anticipated Interventions Patient/Client Instruction: Educate patient on: Condition and Plan of Care For the Purpose of:: To improve muscle performance and motor function, To improve ability to perform ADL's, To increase tolerance to activity/condition/position, To improve performance and independence with ADL's, To decrease level of supervision to perform tasks, To improve ability of physical actions for home/community/work/leisure, To improve gait and locomotor functions, To improve health of tissue, To increase flexibility/ROM, To improve endurance, To improve balance and To improve safety with gait Therapeutic Exercise to Include: Strength training, Endurance training, Balance training, Postural training, Flexibilty training, Gait and locomotor training, Neuromotor development and Active ROM For the Purpose of:: To improve nutrient delivery to tissue, To improve muscle performance and motor function, To improve ability to perform ADL's, To increase tolerance to activity/condition/position, To improve performance and independence with ADL's, To decrease level of supervision to perform tasks, To improve ability of physical actions for home/community/work/leisure, To improve gait and locomotor functions, To improve health of tissue, To decrease soft ti ssue restriction, To increase flexibility/ROM, To improve balance, To improve safety with gait and To assume or resume ADL's Functional Training to Include: Gait training For the Purpose of:: To improve gait and locomotor functions and To improve safety with gait Re-Evaluation Ending Re-evaluation ending: Please do not hesitate to contact me at [phone] by phone or if you have questions or concerns regarding this new plan of care! Sincerely, Danya Morris, MPT
--- NOTE | 2024-10-15 12:00 | HP.PTDCSUM ---
Discharge Summary D/C summary: It has been my pleasure to treat LYRIC PADRON referred by JAYLIN SORIANO, with the diagnosis of gait deficit, balance problem, ferq falls, C-spine stenosis for a total of 18 visit(s). Discharge Date: 10/15/24 Please see the following information for a summary of their discharge status. Subjective Subjective: Pt thinks his balance is a little better. No falls. He uses his rollator almost all the time. He can walk a short distance if he is holding onto the counter. He will do exercises at home Overall Improvement % Improvement: 10 Objective Objective/Function: safety things Gait: rollator and R leg does not pass L stance leg with gait. He shuffles with both feet (worse with the R) FGA: 6 Walked with straight cane with min A (very unsteady and increase veering) Goals Goal 1:: I HEP Goal Progress: Not Progressing Goal 2:: Be able to walk entire dept with rollator with advancing R LE without dragging it Goal Progress: Progressing Goal 3:: Improve balance (score was 11 at eval) Goal Progress: Not Progressing Goal 4:: Be able to slowly lower self down to the chair with arms without polpping Goal Progress: Progressing Plan Plan: DC PT D/C Information Discharge Comments: DC PT d/c sentence: If there are questions or concerns regarding this patient's physical therapy, please feel free to call me at [phone]. Thank you for the referral of this patient. Sincerely, Danya Morris, MPT Balance/Gait/Functional tests Balance/Special Test Scores Functional Gait Assessment Score: 6 % Disability: 80.0000 Tinetti Balance Score: 8 Tinetti Gait Score: 3 Tinetti Balance & Gait Score: 11 Lower Extremity Functional Score: 19 Improvement % Improvement: 10
== END 2024-10-15 19:00 | disposition home or self-care (01) ==
LOC: PT 11:30
PROVIDERS: PCP Family Medicine; Visit Provider Physician Assistant Medical
DX: R26.89 Other abnormalities of gait and mobility (principal); R29.6 Repeated falls; M48.02 Spinal stenosis, cervical region
CPT/HCPCS: 97110; 97112; 97162

== ENCOUNTER 2025-02-20 12:45 | Outpatient (RCR) | payer MEDICARE, SELFPAY ==
--- NOTE | 2025-02-20 14:30 | HP.SP.EVAL ---
Visit History Visit Info Date of Eval: 02/20/25 Today is Visit #: 1 Program Scheduler: BRIANNA History Attending Doctor: ANTOINE Referring Doctor: ANTOINE Reason for Referral: DR TO FAX Medical Diagnosis: Abnormal Lung Sounds R09.89; Dementia Date of Onset of Diagnosis: 02-08-25 Previous speech therapy: No Results: n/a Other Relevant Medical History/Diagnoses/Surgery: Pneumonia, GERD, Dementia, Head trauma (SAH), frequent falls, spinal stenosis Medications related to this diagnosis: Eliu Falcon Smoking Status: Never smoker Diagnosis Diagnosis: Dysphagia Pain Is pain an issue with your current prescribed condition?: No Personal Preferred language: Tongan Patient Allergies Allergies Allergies: Allergies Penicillins Allergy (Verified 08/13/24 17:15) Upset Stomach Subjective Dysphagia Symptoms Reported Symptoms/Problems with: Coughing, Choking, Difficulty Swallowing Solids, Difficulty Swallowing Pills, Food gets stuck, Weight Loss and Hx of Pneumonia Current Diet Solids Current Diet: Regular Current Diet Liquids Current Liquids: Thin Oates free water Protocol: No Comments Comments: -: Patient referred to outpatient ST for dysphagia evaluation due to recent episode of pneumonia with abnormal lung sounds during recovery. Patient denies dysphagia, however he does not dementia and demonstrates limited insight into overall condition. Spouse report variable frequency of coughing and throat clearing through out the day, with or without intake. Of note, patient has dx of GERD. Other symptoms of note: masked facial expression, diminished vocal intensity, shuffling gait, limited endurance, balance impairment, and difficulty with vertical eye gaze. Objective Dysphagia Administered by Administered by: Self Thin Liquids Administred via: Cup and Straw Oral Transit: Delay > 1 seconds Bolus clearance: fully cleared Gagging: No Cough: none observed/unable to assess Pharyngeal phase: immediate laryngeal elevation Comments: Patient consumed thin liquids via cup and straw. No overt indications of penetration or aspiration as coughing, throat clearing, change in vocal quality, or change in respiratory pattern. Patient consume small, single sips as well as large volume, continuous sips / no s/s dysphagia. Pureed Administered via: Spoon Oral Preparation: WNL Oral Transit: WNL Bolus clearance: significant clearance/minimal residue Gagging: No Cough: none observed/unable to assess Pharyngeal phase: immediate laryngeal elevation Comments: Patient consumed pudding via spoon. No overt indications of penetration or aspiration as coughing, throat clearing, change in vocal quality, or change in respiratory pattern in 7/7 trials. Patient demonstrated reflexive multiple swallows with pudding /, resulting in total oral clearance. Regular Oral Preparation: WNL Oral Transit: Delay > 1 seconds Bolus clearance: significant clearance/minimal residue Gagging: No Cough: none observed/unable to assess Pharyngeal phase: immediate laryngeal elevation Comments: Patient consumed mixed texture trail mix. No overt indications of penetration or aspiration as coughing, throat clearing, change in vocal quality, or change in respiratory pattern. Bolus prep AND breakdown appears WNL IN 5/5 trials. Independently utilizes subsequent dry swallow or liquid wash to clear mild lingual residue/particulates. Swallowing Impairment Contributing Factors to Swallowing Impairment: Other Other: Cognition Impact Impact on Safety & Functioning: Risk for Aspiration and Risk for Inadequate Nutrition/Hydration Comments: Spouse reports poor appetite. Drinks 1 Ensure QD. Recommendations Modified Barium Swallow/Cookie Swallow Recommended: Yes Swallowing Treatment: Yes Diet Texture Recommendations Solids: Regular (Level 7) Liquids: Thin (Level 0) Oates free water Protocol: No Other: MBSS scheduled for 04/02/25. COMPENSATION AND BENEFITS ANALYST contacted radiology and [facility] COMPENSATION AND BENEFITS ANALYST to expedite test, of possible to determine course of treatment, as patient is medically homebound and does not wish to return to outpatient. Spouse to contact PCP for home health care referral. Safety Saftey Precautions/Swallowing Recommendations (Check all that Apply): Supervision Needed All Meals, Upright Position at Least 30 Minutes After Meals, Small Sips & Bites when Eating, Multiple Swallows and Alternate Liquids & Solids Other: Although patient did not exhibit overt s/s dysphagia with clinical swallow evaluation, due to dementia and debility, patient is at risk for pulmonary compromise and malnutrition. Skilled ST indicated in the home, which may or may not begin until following MBSS as guidance for POC. Results Swallowing Within Normal Limits: No Swallowing Diagnosis: Dysphagia Unspecified (R13.10) Severity: Mild Reference: Neuro-QoL instrument Radiation Oncology Patient Plan Plan Plan: Although patient did not exhibit overt s/s dysphagia with clinical swallow evaluation, due to dementia and debility, patient is at risk for pulmonary compromise and malnutrition. Skilled ST indicated in the home, which may or may not begin until following MBSS as guidance for POC. MBSS scheduled for 04/02/25. COMPENSATION AND BENEFITS ANALYST contacted radiology and [facility] COMPENSATION AND BENEFITS ANALYST to expedite test, of possible to determine course of treatment, as patient is medically homebound and does not wish to return to outpatient. Spouse to contact PCP for home health care referral. Recommendations Treatment Warranted: Yes Treatment Warranted: Dysphagia Comment: In home health setting Progress Prognosis: Good Frequency Visits in this POC: Evaluation only; refer to home health care Patient/Family Goal Patient/Family Goal: Determine presence of dysphagia Goals that are Established Determination:: Goals will be added/modified as deemed necessary and appropriate. Therapy will be discontinued when results of re-evaluation indicate therapy is no longer needed or lack of progress has been documented. Education Patient has Indicated that the Following Identified Educational Needs: Cognitively Impaired The Patient has indicated that they have no educational or learning abilities that may effect their care.: No Patient Instruction Patient Education: Diagnosis, Treatment Plan and Diet Level Other Education: MBSS purpose and procedure, Options for home health care vs outpatient therapy due to debility and leaving home is taxing effort (per spouse request) Person Taught: Family and Primary Caregiver Teaching Method: Discussion, Demonstration and Teach Back Response to teaching: Return Demonstration and Teaching Completed
--- NOTE | 2025-02-28 12:05 | ST.MBS ---
Modified Barium Swallow Patient Information Study Date: 02/28/25 Study Time: 09:30 Direct Billable Minutes: 120 Total Minutes procedure & reportin Diagnosis: Dysphagia R13.10 Referring Physician: Jeanine Johnson Reason for Referral: OP BSE completed 02/20/2025 revealing mild dysphagia and recommending regular textures / thin liquids, supervision at all meals, Sitting Upright Position at Least 30 Minutes After Meals, Small Sips & Bites when Eating, Multiple Swallows and Alternate Liquids & Solids. BOARD CERTIFIED FAMILY PHYSICIAN also recommended MBSS for further assessment of swallow function and aspiration risk. The patient's provided history today. She initially reported no concern pt having difficulty swallowing food/drink; however, she did mention that the patient had a choking spell on carrots and his had to pound on his back to clear it. She reported that most of the time he begins choking/coughing just sitting and swallowing saliva (unrelated to food/drink). She then also informed BOARD CERTIFIED FAMILY PHYSICIAN that the patient had a bad coughing spell w/ a pill and afterwards he stated that it went down the wrong way. He takes multiple pills whole w/ liquids. Medical History: PMH: Pneumonia (1X, 01/2025), GERD (managed by Pepcid daily), Dementia, Head trauma (SAH) (2X, 2017, 2022), Subdural hematoma (surgically managed; however, surgery unsuccessful per report), Frequent falls, Spinal stenosis. Current Diet Ordered: Regular textures / Thin liquids Dentition: Natural Teeth Mental Status: Impaired (Hx of dementia) Respiratory Status: Oxygenating on Room Air Penetration-Aspiration Scale Penetration-Aspiration Scale: OBJECTIVE ASSESSMENT OF SWALLOW FUNCTION (QUANTITATIVE – PER TRIAL): PENETRATION / ASPIRATION SCALE (MONTANEZ): 1 = does not enter airway 2 = enters airway/above vocal folds/ejected 3 = enters airway/above vocal folds/not ejected 4 = enters airway/contacts vocal folds/ejected 5 = enters airway/contacts vocal folds/not ejected 6 = enters airway/below vocal folds/ejected 7 = enters airway/below vocal folds/not ejected despite effort 8 = enters airway/below vocal folds/no effort VIDEOFLOROSCOPIC SCALE SCORE (MONTANEZ): Grade I = aspiration of material that has penetrated into the laryngeal vestibule, intact cough reflex Grade II = aspiration < 10 % of the bolus, intact cough reflex Grade III = aspiration of < 10 % of the bolus, reduced cough reflex or aspiration of > 10 % of the bolus, intact cough reflex Grade IV = aspiration of > 10 % of the bolus, reduced cough reflex Penetration-Aspiration Scale Score Thin Liquid via teaspoon: Result: 1= does not enter airway Thin Liquid via teaspoon Trial 2: Result: 1= does not enter airway Thin Liquid via large single sip: cup: Result: 1= does not enter airway [place] Thick Liquid via small single sip: cup: Result: 1= does not enter airway Pudding via teaspoon: Result: 1= does not enter airway Comment: Esophageal Screen - Complete clearance. 1/2 Cookie: Result: 1= does not enter airway Comment: Esophageal Screen - Complete clearance. Thin Liquid via single sip: straw: Result: 1= does not enter airway Thin Liquid via sequential sips:straw: Result: 2= enter airway/above vocal folds/ejected Comment: Esophageal Screen - Complete clearance. Barium Tablet w/ water: Result: 1= does not enter airway Comment: Esophageal Screen - Complete clearance. Barium tablet w/ applesauce: Result: 1= does not enter airway Comment: Esophageal Screen - Complete clearance. Oral Phase Labial Seal: No Labial Escape Tongue Control During Bolus Hold: Posterior escape of less than half of bolus Bolus Preparation/Mastication: Slow prolonged chewing/mashing with complete recollection Bolus Transport/Lingual Motion: Repetitive/disorganized tongue motion Oral Residue: Trace residue lining oral structures Pharyngeal Phase Initiation of Pharyngeal Swallow: Bolus head in valleculae Soft Palate Elevation: Trace column of contrast/air between soft palate and pharyngeal wall Laryngeal Elevation: Comp. Superior move thyroid cart w/comp. apprx arytenoid cart-epig pet Anterior Hyoid Excursion: Partial anterior movement Epiglottic Movement: Complete inversion Laryngeal Vestibule Closure at Height of Swallow: Incomplete; narrow column of air/contrast in laryngeal vestibule Pharyngeal Stripping Wave: Present - complete Pharyngoesophageal Segment Opening: Complete distension and complete duration; no obstruction of flow Tongue Base Retraction: Trace column of contrast between tongue base & post. pharyngeal wall Pharyngeal Residue: Collection of residue within or on pharyngeal structures Esophageal Phase Esophageal Clearance: Complete clearance Diagnosis/Impression Diagnosis: Mild oropharyngeal dysphagia R13.12 Impression: The oral phase is primarily marked by... -Decreased bolus control w/ loss of bolus to FOM. -Lingual pumping for A-P transport. -Prolonged, but complete mastication of cookie. BOARD CERTIFIED FAMILY PHYSICIAN is concerned for choking risk given hx of choking episode on a carrot requiring back blows to clear and pt concern for a pill going down the wrong way w/ extensive coughing episode. The pharyngeal phase is primarily marked by... -Decreased TB retraction and pharyngeal stripping wave resulting in mild-moderate pharyngeal residue, most noticeable w/ liquid trials. A delayed, but independent, double swallow cleared most of the residue. -Trace laryngeal penetration of thin liquids via sequential sips by straw. No aspiration; however, pt may be at risk for post prandial aspiration w/ mild-moderate liquid residue after the swallow. Recommendations Diet: Easy to Chew Textures (IDDSI Level 7) and Thin Liquids Comment: Medications ONE AT A TIME and whole in applesauce Compensatory Strategies: Small Bites, Small Sips, Slow Rate, Multiple Swallows (Pt did complete delayed double swallows as needed to clear pharyngeal residues of liquids), Alternate bites/solids and sips/liquids, Sitting upright, Remain sitting upright for 30 minutes after PO intake and Assist with verbal cues to use recommended strategies Supervision: Distant Supervision ( is around for all meals, BOARD CERTIFIED FAMILY PHYSICIAN recommend she provide the patient reminders as needed of the above recommended strategies to promote safe swallowing) Recommend Repeat Modified Barium Swallow: TBD Need for Skilled Speech Therapy Services: Yes Comment: Recommend Home Health Speech Therapy Services for management of dysphagia. POC to include... -Train the patient and in recommended diet textures and strategies to decrease risk for aspiration and choking. -Ongoing assessment of diet tolerance of recommended textures. -Train the patient in oropharyngeal exercise program to improve bolus control/coordination, TB retraction, and pharyngeal stripping wave (lingual coordination, lingual resistance, Zuly, effortful). Education Completed: 1. Described result of evaluation., 2. Pt understands evaluation & agrees with goals and treatment plan., 4. Family/caregivers understand evaluation & agree w/ goals & tx plan. and 7. Pt requires further education on strategies & risks. Comment: Given the patient's reporting he had a choking episode w/ a carrot and a coughing spell with a "pill going down the wrong way", this BOARD CERTIFIED FAMILY PHYSICIAN is concerned for the patient being at high risk to choke on any food that isn't thoroughly chewed or on multiple pills taken at one time. BOARD CERTIFIED FAMILY PHYSICIAN thoroughly educated rationale for Easy to Chew textures and compensatory strategies to improve swallow safety recommended above. Status Active ST Patient: Active Contact Information [facility] Speech Therapy:: Rosy Contreras M.A. [facility]-BOARD CERTIFIED FAMILY PHYSICIAN Speech-Language Pathologist [facility] [address] [place] [address] [email or web address] [phone]
== END 2025-02-20 19:00 | disposition home or self-care (01) ==
LOC: SP 12:45
PROVIDERS: PCP Family Medicine; Referring Provider Clinical Nurse Specialist Adult Health; Visit Provider Clinical Nurse Specialist Adult Health
DX: R09.89 Other specified symptoms and signs involving the circulatory and respiratory systems (principal)
CPT/HCPCS: 92610; 92611

== ENCOUNTER → 2025-02-28 | Outpatient (CLI) | payer MEDICARE, SELFPAY | END | disposition home or self-care (01) | LOC: RAD 09:11 | PROVIDERS: PCP Family Medicine; Referring Provider Clinical Nurse Specialist Adult Health; Visit Provider Clinical Nurse Specialist Adult Health | DX: R09.89 Other specified symptoms and signs involving the circulatory and respiratory systems (principal) | CPT/HCPCS: 74230 ==

== ENCOUNTER 2025-04-24 05:31 | Emergency (ER) | payer MEDICARE, SELFPAY ==
[2025-04-24] VITALS (8 sets, daily range): BP systolic 114–130; BP diastolic 72–82; PULSE 83–104; RESP 13–15; TEMP 36.1–36.6; O2SAT 95–98; BMI 24.9
--- NOTE | 2025-04-24 05:36 | EDS_ITS ---
HPI History of Present Illness Chief Complaint: Head Injury [facility] Medical History Balance disorder Hyperlipidemia Dementia Brain bleed Home Medications ?Medication ?Instructions ?Recorded ?Last Taken ?Type Minocycline 50 mg PO BID atb 07/24/18 08:00 History 50 mg pravastatin 20 mg tablet 40 mg PO QHS cholesterol 06/0307/23/18 22:00 History 40 mg terazosin 1 mg capsule 5 mg PO QHS Prostate 8 07/24/18 22:00 History 1 mg ibuprofen 400 mg tablet 400 mg PO Q6H 08/11/23 Unkno wn History meloxicam 15 mg tablet 15 mg PO DAILY 08/11/23 Unkn own History memantine 5 mg tablet 5 mg PO BID 08/11/23 Unknown History terazosin 5 mg capsule 5 mg PO QHS 04/24/25 Unknown History Allergy/AdvReac Type Severity Reaction Status Date / Time Penicillins Allergy Upset Verified 04/24/25 05:32 Stomach Social History Smoking Status: Never smoker EXAM Physical Exam Const Vital Signs: 04/24/25 05:33 Temperature 97.9 F Temperature Source Oral Pulse Rate 104 H Respiratory Rate 15 Blood Pressure 127/82 H Blood Pressure Mean 97 Pulse Ox 97 Oxygen Delivery Method Room Air [facility] [place] Narrative Medical decision making narrative: HISTORY OF PRESENT ILLNESS: Chief complaint: Head trauma, head laceration 70-year-old male history of dementia presents with fall and head trauma. He is accompany by his . She states patient had mechanical fall from standing in the bathroom hit his head on the right side of his eye on a weight scale. This occurred approximate 4:45 AM. Patient is on no blood thinners per . REVIEW OF SYSTEMS: Pertinent positives: Head trauma, Pertinent negatives: Focal weakness PHYSICAL EXAM: Nursing triage notes reviewed, Vital signs reviewed Primary Survey Airway: Intact Breathing: Bilateral breath sounds Circulation: Palpable bilateral femorals, Palpable bilateral radial, Palpable bilateral DP and Palpable bilateral PT Disability / Spine precautions GCS Score: Eye Openin Verbal Response: 5 Motor Response: 6 Secondary Survey Constitutional: Please see MDM Head: Midface stable, NO jaw malocclusion, No Cephalohematoma, small approximately 1 cm vertically oriented superficial laceration noted to the right eyebrow. Bleeding controlled. Well-approximated. No gaping. No underlying structures noted. No foreign bodies noted. Eye: Pupils equal round and reactive to light, Extraocular muscles intact and No periorbital ecchymosis or stepoff, no evidence of entrapment ENT: Oropharynx clear, no lacerations, no hemotympanum, no raccoon eyes or mckenna sign Cervical spine / Neck: No cervical spine bony tenderness, crepitance, or stepoff deformity Trachea midline Lungs: Clear to auscultation, No asymmetric rise and No crepitus, no flail chest Cardiac: Regular rate and rhythm and No murmurs Abdomen: Soft, Nontender and No rebound Pelvis: Pelvis stable to compression : No evidence of genital injury Back: No midline bony tenderness to thoracic/lumbar/sacral spines Neuro: At baseline (alert, oriented to person and place but not time), intact strength and sensation in bilateral upper and lower extremities. 2+ patellar reflexes bilaterally. NIH of 0. ICH score 0 Extremities: NO gross Deformities Psych: Normal affect Nursing triage notes reviewed, Vital signs reviewed MEDICAL DECISION MAKING: Chief Complaint: please see HPI External records reviewed: Reviewed prior imaging: Reviewed CT scan of the brain from 2023 showed volume loss no acute intracranial finding Factors affecting care: Dementia Social determinants of health: History of dementia History obtained from others: Significant other Consults: [facility] Trauma discussed with ER physician at [facility] Who accepted the patient's case Goals of care discussion: Full code MDM Narrative: The patient was initially hemodynamically stable, afebrile and nontoxic- appearing. Exam with minimal laceration to right eye I considered the following differential diagnosis: ICH, cervical spine injury, closed head injury I obtained imaging studies to further determine if the patient was suffering from a life-threatening etiology. ALL IMAGES (IF OBTAINED) HAVE BEEN PERSONALLY REVIEWED AND INTERPRETED BY MYSELF. CT scan of the brain was read reviewed personally by myself showed evidence of a right subdural hematoma CT scan of the cervical spine negative Tetanus updated Added CBC BMP Kept head of bed greater than 30 degrees. Gave Keppra for seizure prophylaxis. Turned over to morning physician pending transfer via helicopter which should be here in the next 30 to 40 minutes. Procedure: Laceration repair. The procedure was performed by myself. Indication: Wound repair Risks and benefits: risks, benefits and alternatives were discussed Consent: Consent was obtained. Wound Details: Small approximate 1 cm linear laceration with good approximation noted to the right temporal region no deeper structures involved. No galea involvement. Anesthesia: None Wound prep: Patient was prepped and draped in the usual sterile fashion. Tetanus: Updated today Irrigation Solution: Saline Wound Preparation: Cleaned chlorhexidine. The wound was explored to its base in a bloodless field. Procedure Description: Applied Dermabond and Steri-Strips with close approximation Patient tolerated the procedure well with no immediate complications The patient and/or family, caregivers express understanding. The patient and/or family, caregivers agrees with the plan. Shared decision making: I will have a discussion with the patient and or visitors regarding risk/benefits of further testing or admission. They will be made aware of of the risk/benefits inherent in this decision they will be given the opportunity to voice understanding. Total critical care time today provided was at least 35 minutes. This excludes separately billable procedures. Critical care time (if documented) is secondary to the patient having high probability of clinically significant/life threatening deterioration in the patient's condition which required my urgent intervention. Impression: 1. Acute subdural hematoma 2. Fall 3. History of dementia Dispo: Transfer to nearest trauma center This note was generated with [employer] dictation software. It may contain incorrect words, spelling, and punctuation that were not noted in review of the chart prior to signing. Radiography Diagnostic Testing: Clinical Impression(s) from Imaging Studies Brain CT 04/24/25 05:43 IMPRESSION: 1. No evidence of acute intracranial pathology. 2. Cerebral atrophy. 3. Chronic left periventricular lacunar infarction. Reading Location: [facility] Cervical Spine CT 04/24/25 05:43 IMPRESSION: 1. No evidence of acute bony injury. 2. Diffuse degenerative disc disease. 3. Diffuse facet arthropathy with degenerative anterolisthesis of C7 on T1. 4. Other findings as noted. Reading Location: [facility] Discharge Plan Triage Chief Complaint: Head Injury ED Provider: Mat Delaney Dx/Rx/DC Orders Prescriptions: No Action terazosin 1 MG capsule 5 mg PO QHS pravastatin 20 MG tablet 40 mg PO QHS Minocycline tablet 50 mg PO BID memantine 5 mg tablet 5 mg PO BID Patient Comments: Take 1 tablet by mouth twice daily. meloxicam 15 mg tablet 15 mg PO DAILY Patient Comments: Take 1 tablet by mouth once daily. With food. ibuprofen 400 mg tablet 400 mg PO Q6H Patient Comments: take 1 tablet (400 mg) by oral route 4 times per day with food terazosin 5 mg capsule 5 mg PO QHS Primary Care Provider: Geoffrey Conley Referrals: Geoffrey Conley MD [Primary Care Provider] - Print Language: Sami Disposition Disposition: Acute Care Hospital Discharge Location: [facility] Discharge Date/Time: 04/24/25 07:33
--- NOTE | 2025-04-24 05:43 | CT_ITS ---
PROCEDURE: BRAIN/HEAD WITHOUT CONTRAST 04/24/2025 REASON FOR EXAM: HEAD INJURY TECHNIQUE: BRAIN/HEAD WITHOUT CONTRAST Coronal and Sagittal reconstruction series were provided. One or more dose reduction techniques were used (e.g., Automated exposure control, adjustment of the mA and/or kV according to patient size, use of iterative reconstruction technique. RADIATION DOSE SUMMARY: CTDlvol: 65.50 mGy DLP: 1296.10 mGycm COMPARISON: CT head without contrast, 08/13/2024 FINDINGS: There is moderate diffuse cerebral atrophy with concomitant ventriculomegaly. There is focal low-density of the periventricular white matter of the left frontal lobe consistent with a chronic lacunar infarction. There is calcific vascular disease of the intracranial portion of both internal carotid arteries. There is no evidence of acute intracranial hemorrhage or infarction. There are no abnormal intracranial masses or mass effects. The basilar cisterns are unremarkable. The skull base and calvarium are normal. There is nasal septal deviation to the right. There is mucoperiosteal thickening of both frontal sinuses and multiple ethmoidal air cells bilaterally. There are multiple fluid-filled mastoid air cells on the right. The intraorbital contents are normal. The visualized extracranial soft tissues are normal. CT/Brain/Head without Contrast IMPRESSION: 1. No evidence of acute intracranial pathology. 2. Cerebral atrophy. 3. Chronic left periventricular lacunar infarction. Reading Location: [id number]
--- NOTE | 2025-04-24 05:43 | CT_ITS ---
PROCEDURE: SPINE CERVICAL WITHOUT CONTRAS 04/24/2025 REASON FOR EXAM: NECK INJURY TECHNIQUE: SPINE CERVICAL WITHOUT CONTRAS Coronal and Sagittal reconstruction series were provided. One or more dose reduction techniques were used (e.g., Automated exposure control, adjustment of the mA and/or kV according to patient size, use of iterative reconstruction technique. RADIATION DOSE SUMMARY: CTDlvol: 65.55 mGy DLP: 1296.10 mGycm COMPARISON: CT cervical spine, 08/13/2024 FINDINGS: There is no evidence of fracture or subluxation. 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 There is degenerative disc disease C3-4 through C7-T1 with narrowing of the intervertebral disc spaces and marginal osteophytes. There is multilevel facet arthropathy. There is degenerative grade 1 anterolisthesis of C7 on T1. There is no abnormal mass effect on the spinal canal or the visualized intracranial contents. Soft Tissues: The lung apices are clear. The soft tissues of the neck have a normal unenhanced appearance. Other: There is calcific vascular disease of the intracranial portion of both internal carotid arteries. There is calcific vascular disease of the left carotid bifurcation. There are few fluid-filled mastoid air cells bilaterally. CT/Spine Cervical without Contras IMPRESSION: 1. No evidence of acute bony injury. 2. Diffuse degenerative disc disease. 3. Diffuse facet arthropathy with degenerative anterolisthesis of C7 on T1. 4. Other findings as noted. Reading Location: [id number]
--- NOTE | 2025-04-24 05:43 | ED.RN ---
PT KNOWS THAT HE IS IN [place] AT [facility] BUT STATES THAT THE MONTH IS FEBRUARY.
[2025-04-24 06:54] LABS: Hematocrit 44.1 % (40-54); Hemoglobin 15.1 g/dL (13.0-16.5); Immature Granulocytes Count 0.050 X10^3/uL (0.0-0.0); Mean Corp Hgb Conc 34.2 g/dL (32-36); Mean Corpuscular Volume 88.9 fL (80-94); Mean Platelet Vol. 9.7 fl (6.2-12.0); NRBC Flagged by Analyzer 0 % (0-5); Platelet Count 246 K/mm3 (150-450); RBC Distribution Width CV 12.6 % (11.6-14.6); RBC Distribution Width SD 41.1 fl (35.1-43.9); Red Blood Count 4.96 M/mm3 (4.6-6.2); White Blood Count 8.9 K/mm3 (4.4-11.0)
[2025-04-24] MEDS: levETIRAcetam IV 1,000 MG/100 ML BAG 400 MG IV (07:06)
[2025-04-24 07:33] LABS: Anion Gap 12 (5-15); BUN 8 mg/dL (4-19); BUN/Creat Ratio 8.9 RATIO (10-20); Calcium,Total 9.3 mg/dL (7.6-11.0); Carbon Dioxide 22.9 mmol/L (21.0-32.0); Chloride 105 mmol/L (98-108); Estimated Creatinine Clearance 67.74 ml/min (50-250); Glucose 114 mg/dL (70-99); Potassium 3.9 mmol/L (3.3-5.1)
== END 2025-04-24 07:33 | disposition short-term general hospital (02) ==
LOC: ED 05:45
PROVIDERS: Emergency Provider Emergency Medicine; PCP Family Medicine; Visit Provider Emergency Medicine
DX: S06.5XAA Traumatic subdural hemorrhage with loss of consciousness status unknown, initial encounter (principal); F03.90 Unspecified dementia, unspecified severity, without behavioral disturbance, psychotic disturbance, mood disturbance, and anxiety; S01.91XA Laceration without foreign body of unspecified part of head, initial encounter; Z79.899 Other long term (current) drug therapy; W19.XXXA Unspecified fall, initial encounter
CPT/HCPCS: 12001; 70450; 72125; 80048; 85025; 90715; 96365; 99285

== ENCOUNTER 2025-07-07 05:23 | Emergency (ER) | payer MEDICARE, SELFPAY ==
[2025-07-07 05:24] VITALS: BP 129/87; PULSE 106; RESP 20; TEMP 36.5; O2SAT 97; BMI 25.0
[2025-07-07 05:29] VITALS: BP 129/87; PULSE 97; RESP 20; TEMP 36.5; O2SAT 97
--- NOTE | 2025-07-07 05:40 | RAD_ITS ---
PROCEDURE: CHEST PA AND LATERAL 07/07/2025 REASON FOR EXAM: COUGH TECHNIQUE: Procedure Code: RADCXR Modality: DX Procedure: CHEST PA AND LATERAL COMPARISON: Chest x-ray 08/11/2023. FINDINGS: Hardware: Monitor electrodes overlie the chest. Heart: No cardiomegaly. Mediastinum: Tortuosity and atherosclerotic calcifications of the aorta which is stable. Otherwise unremarkable. Lungs: Diffuse reticulonodular densities may represent pulmonary edema pneumonitis or pneumonia. No pleural effusion or pneumothorax. Bones: No acute bony abnormalities. RAD/Chest PA and Lateral IMPRESSION: Diffuse reticulonodular densities may represent pulmonary edema pneumonitis or pneumonia. No pleural effusion or pneumothorax Reading Location: [id number]
--- NOTE | 2025-07-07 05:43 | EX.ED.DYSGE1 ---
HPI History of Present Illness Chief Complaint: General Illness Informant: patient and spouse/S.O. Limited: dementia Narrative Narrative: Patient is a 70-year-old male with past medical history of hyperlipidemia dementia and smoking. reports that for approximately 10 to 14 days he has had congestion and cough. She states that he does smoke but only wears oxygen when he sleeps and does not typically need it throughout the day. She states that she feels his cough has been worsening and he has been wheezing more. She reports he also seems to be urinating more and denies any history of diuretic use. She states she also feels his confusion is slightly more severe. She states he has not had a fever and she denies any known sick contacts. She is concerned that he may have pneumonia as she reports he had this in the past with no fever or real derangement to his vital signs. Therefore with concern for developing infection he was brought in for evaluation [facility] Medical History Balance disorder Hyperlipidemia Dementia Brain bleed Home Medications ?Medication ?Instructions ?Recorded ?Last Taken ?Type pravastatin 20 mg tablet 40 mg PO QHS cholesterol 07/24/18 07/23/18 22:00 History 40 mg memantine 5 mg tablet 5 mg PO BID 08/11/23 Unknown History terazosin 5 mg capsule 5 mg PO QHS 04/24/25 Unknown History albuterol sulfate 90 mcg/actuation 1 - 2 puff inhalation Q4H PRN PRN 07/07/25 Unknown Rx aerosol inhaler (Ventolin HFA) Wheezing/shortness of breath #1 device doxycycline monohydrate 100 mg 100 mg PO BID 7 days #14 CAPSULES 07/07/25 Unknown Rx capsule Allergy/AdvReac Type Severity Reaction Status Date / Time Penicillins Allergy Upset Verified 04/24/25 05:32 Stomach Social History Smoking Status: Never smoker ROS ROS ED ROS Narrative Please note review of systems may be unreliable secondary to history of dementia Constitutional Constitutional ED: Denies fever(s) ENT ENT ED: Reports rhinorrhea; Denies sore throat Cardiovascular Cardiovascular: Denies chest pain, palpitations or racing heartbeat Respiratory/Chest Respiratory/Chest: Reports cough, dyspnea and other Details: Positive wheeze Gastrointestinal Gastrointestinal: Denies abdominal pain, diarrhea, nausea or vomiting Genitourinary Genitourinary ED: Reports urinary frequency; Denies dysuria Musculoskeletal Musculoskeletal: Denies back pain or myalgias Integumentary Denies rash Neurologic Neurologic: Denies headache(s) Hematologic/Lymphatic Hematologic/Lymphatic: Denies easy bleeding or easy bruising EXAM Physical Exam Const Vital Signs: 07/07/25 05:24 07/07/25 05:24 07/07/25 05:29 Temperature 97.7 F L 97.7 F L Temperature Source Oral Oral Pulse Rate 106 H 97 Respiratory Rate 20 H 20 H Respiratory Effort Short of Breath Labored Respiratory Pattern Tachypnea Blood Pressure 129/87 H 129/87 H Blood Pressure Mean 101 101 Pulse Ox 97 97 Oxygen Delivery Method Room Air Room Air 07/07/25 05:45 07/07/25 06:30 07/07/25 07:00 Temperature 98.0 F 98.1 F Temperature Source Oral Oral Pulse Rate 88 87 80 Respiratory Rate 16 16 18 Respiratory Effort Respiratory Pattern Normal Blood Pressure 122/89 H 118/77 Blood Pressure Mean 100 90 Pulse Ox 97 98 Oxygen Delivery Method Room Air Room Air Positive well nourished and well developed General Appearance ED: well developed; Negative for pallor HEENT HEENT Narrative: Normocephalic atraumatic Nasal mucosa is hyperemic and boggy No tongue or lip swelling no oral lesions no airway edema or compromise There is cobblestoning noted in the posterior pharynx consistent with sinus drainage; no secondary findings to suggest infection Eyes PERRL and EOMs intact bilaterally General Eye ED: Negative for scleral icterus Neck supple and No no JVD Neck Narrative: No nuchal rigidity or meningeal signs Chest Wall palpation of chest normal Chest Narrative: No bony deformity or subcutaneous emphysema noted Resp normal respiratory effort Resp Narrative: Breath sounds are diminished throughout with rhonchi in the bilateral bases and expiratory wheezing diffusely. There is slight tachypnea but no nasal flaring retractions or accessory muscle use. No dyspnea with speech noted Cardio regular rate and regular rhythm Rate: other Other Details: Radial and carotid pulses are equal and symmetric GI normal to inspection, nondistended, normoactive bowel sounds, non-tender, non-distended and no masses GI Narrative: Soft nontender nondistended with normal active bowel sounds. No voluntary guarding no rigidity or pulsatile mass. No fluid wave noted Auscultation: normoactive bowel sounds Palpation: soft Extremity normal to inspection Extremity Narrative: No asymmetric edema no pitting edema negative Homans' sign bilaterally Neuro CN's II-XII intact bilaterally and no sensory deficits noted Neuro Narrative: Patient is at his baseline mental status No focal neurologic deficit is noted No pronator drift no dysmetria no truncal ataxia Sensorium / Orientation: alert Motor Exam: strength 5/5 throughout Psych Psych Narrative: Patient has a depressed/flat affect Mood & Affect: depressed Skin no rashes or lesions noted and No no wounds General Skin Exam: Negative for jaundice or pallor MDM MDM MDM Narrative Medical decision making narrative: The patient arrived to the ER with stable vitals and was in no acute respiratory distress. The had concern he may be developing a urinary tract infection based on his increased urination at night. She was also concerned that his symptoms of congestion and cough have not improved over the past 10 to 14 days. Differential diagnosis is for viral infection such as COVID influenza or RSV. Patient also may have developed pneumonia during this time. There is also concern for BPH versus UTI. Secondary to this basic labs were obtained as well as urine sample and chest x-ray. Patient's white count is normal there is no left shift. He has no signs of acute kidney injury or findings for congestive heart failure. Urine sample shows no obvious signs of infection. Chest x-ray shows inflammation versus developing pneumonia but his history and exam would point towards viral URI and inflammation as the main cause. After receiving breathing treatments he did have improvement of symptoms and his shortness of breath improved as well. Therefore this time without sepsis or respiratory distress or need for supplemental oxygen there is no need for admission and he can be discharged home. With the patient having symptoms for the past 10 to 14 days and radiology questioning developing infiltrate I will start him on antibiotic and to ensure there is no worsening of symptoms. History & Record Review Discussion w/independent historian: Patient and Significant other Lab Data Attestation: I reviewed the patient's lab results. Labs: Laboratory Results - last 24 hr 07/07/25 07/07/25 07/07/25 05:30 06:19 06:37 WBC 10.1 RBC 4.93 Hgb 15.0 Hct 44.2 MCV 89.7 MCH 30.4 MCHC 33.9 RDW Std Deviation 40.3 RDW Coeff of Angela 12.3 Plt Count 235 MPV 9.6 Immature Gran % (Auto) 0.400 Neut % (Auto) 53.7 Lymph % (Auto) 30.8 [place] % (Auto) 9.5 Eos % (Auto) 4.9 Baso % (Auto) 0.7 Absolute Neuts (auto) 5.4 Absolute Lymphs (auto) 3.12 Nucleated RBC % 0 Sodium Cancelled 140 Potassium Cancelled 4.2 Chloride Cancelled 106 Carbon Dioxide Cancelled 23.0 Anion Gap Cancelled 11 BUN Cancelled 12 Creatinine Cancelled 0.86 Estim Creat Clear Calc Cancelled 68.53 Est GFR (MDRD) Non-Af Cancelled 93 BUN/Creatinine Ratio Cancelled 13.9 Glucose Cancelled 120 H Calcium Cancelled 9.2 Magnesium Cancelled 2.1 NT pro BNP II 61 Urine Color Yellow Urine Clarity Clear Urine pH 7.0 Ur Specific [place] 1.010 Urine Protein 15 H Urine Glucose (UA) Normal Urine Ketones Negative Urine Occult Blood Negative Urine Nitrite Negative Urine Bilirubin Negative Urine Urobilinogen Normal Ur Leukocyte Esterase Negative Urine RBC 0 SEEN Urine WBC 0-5 SEEN Ur Squamous Epith Cells 0-5 SEEN Urine Bacteria 1+ Urine Mucus 0 SEEN Radiography Diagnostic Testing: Clinical Impression(s) from Imaging Studies Chest X-Ray 07/07/25 05:40 IMPRESSION: Diffuse reticulonodular densities may represent pulmonary edema pneumonitis or pneumonia. No pleural effusion or pneumothorax Reading Location: [facility] Chest x-ray as interpreted by the emergency medicine physician reveals hazy opacities in the bilateral lower lobes concerning for pneumonitis versus pneumonia Discharge Plan Triage Chief Complaint: General Illness ED Provider: Placido Ponce Dx/Rx/DC Orders Clinical Impression: Acute upper respiratory infection, Dementia, Hyperlipidemia Instructions: ED URI, Viral W/ Wheezing (Adult) Prescriptions: New doxycycline monohydrate 100 mg capsule 100 mg PO BID 7 Days Qty: 14 0RF albuterol sulfate [Ventolin HFA] 90 mcg/actuation HFA aerosol inhaler 1 - 2 puff inhalation Q4H PRN PRN (Reason: Wheezing/shortness of breath ) Qty: 1 0RF No Action pravastatin 20 MG tablet 40 mg PO QHS memantine 5 mg tablet 5 mg PO BID Patient Comments: Take 1 tablet by mouth twice daily. terazosin 5 mg capsule 5 mg PO QHS Primary Care Provider: Geoffrey Conley Referrals: Geoffrey Conley MD [Primary Care Provider, Medical] Activity Restrictions/Additional Instructions: You tested negative for COVID influenza and RSV. Your labs revealed no signs of kidney damage urinary tract infection or systemic infection. Your x-ray showed inflammation versus developing pneumonia. Your history and exam would indicate you have a viral upper respiratory tract infection which is causing lung inflammation. Use the inhaler as directed to help with this. However in order to ensure there is no developing pneumonia present please take the doxycycline/antibiotic as directed. Return to the ER should you have any further concerns Print Language: Afghan Disposition Disposition: Home, Self Care Discharge Date/Time: 07/07/25 07:39
[2025-07-07 05:45] VITALS: PULSE 88; RESP 16
[2025-07-07 05:54] LABS: Hematocrit 44.2 % (40-54); Hemoglobin 15.0 g/dL (13.0-16.5); Immature Granulocytes Count 0.040 X10^3/uL (0.0-0.0); Mean Corp Hgb Conc 33.9 g/dL (32-36); Mean Corpuscular Volume 89.7 fL (80-94); Mean Platelet Vol. 9.6 fl (6.2-12.0); NRBC Flagged by Analyzer 0 % (0-5); Platelet Count 235 K/mm3 (150-450); RBC Distribution Width CV 12.3 % (11.6-14.6); RBC Distribution Width SD 40.3 fl (35.1-43.9); Red Blood Count 4.93 M/mm3 (4.6-6.2); White Blood Count 10.1 K/mm3 (4.4-11.0)
[2025-07-07 06:30] VITALS: BP 122/89; PULSE 87; RESP 16; TEMP 36.7; O2SAT 97
[2025-07-07 06:34] LABS: Mucous, Urine 0 SEEN /hpf (<or=2+); Red Blood Cells-Urine 0 SEEN /hpf (0-5)
--- OUTSIDE RECORDS SUMMARY | 2025-07-07 06:34 | XMS RPT_ITS | CCD ---
Author Organization [facility] Care Team Providers Care Glazier Stained Glass Name Role Phone Yanet Adams MD Primary Care Provider Yanet Adams MD Primary Care Provider Tran GOYAL, Luis Unavailable Zarina MIRANDA, PhD, Kwadwo Unavailable Yanet Adams MD Primary Care Provider Haagen TEA LEAF READER.MECHANICAL INTERN, Fidelina Unavailable Suppan TEA LEAF READER.MECHANICAL INTERN, Jeanine A Unavailable Suppan TEA LEAF READER.MECHANICAL INTERN, Jeanine A Unavailable Dr. Yanet Adams MD Primary Care Provider Suppan RECREATION 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Jeanine Attending Provider Suppan RECREATION 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, Jeanine Referring Provider Suppan TEA LEAF READER.SAMARIA, Jeanine A Unavailable Suppan TEA LEAF READER.MECHANICAL INTERN, Jeanine A Unavailable Nicki HORN-UPHOLSTERY TECHNICIAN, Tila Unavailable Dr. Mat Delaney DO Emergency Provider KWADWO SRINIVASAN Attending Unavailable YANET ADAMS Primary Care Unavailable YANET ADAMS Primary Care Unavailable JAYDA ACE Referring Unavailable YANET ADAMS Primary Care Unavailable YANET ADAMS Primary Care Unavailable YANET KRAMER Admitting Unavailable JEANETTE RIVER Consulting Unavailable ERIKA MILTON Attending Unavailable GISELLE VINSON Attending Unavailable JAYDA ACE Referring Unavailable BRYAN, YANET J Primary Care Unavailable LINH HECTOR Attending Unavailable LATESSAMELANIE Referring Unavailable BRYAN, YANET J Primary Care Unavailable Dr. Mat Delaney DO Attending Provider Ayana Choi MD Attending Provider Unavailarline Choi MD, Dr. Piña Attending Provider Crissy ACCOUNTS PAYABLE ASSISTANT-CYolie Attending Provider [phone] Crissy ACCOUNTS PAYABLE ASSISTANTYolie Attending Unavailable Bryan, Yanet Primary Care Unavailable Suppan, Jeanine Attending Unavailable Suppan, Jeanine Referring Unavailable Castle, Yanet Primary Care Unavailable Bryan, Yanet Primary Care Unavailable Oleghe Ayana JACOBS Attending Unavailabl e Bryan, Yanet Primary Care Unavailable Oleghe OLSAyana Attending Unavailabl e Castle, Yanet Primary Care Unavailable Oleghe Ayana JACOBS Attending Unavailabl e Mat Delaney Attending Unavailable Bryan, Yanet Primary Care Unavailable Castle, Yanet Primary Care Unavailable JAYDA ACE Attending Unavailable Suppan, Jeanine Attending Unavailable Suppan, Jeanine Referring Unavailable Castle, Yanet Primary Care Unavailable Macario Givens Attending Unavailable Bryan, Yanet Primary Care Unavailable Brayn, Yanet Primary Care Unavailable Ayana Choi Attending Unavailable Yolie Woodward NP Attending Unavailable Castle, Yanet Primary Care Unavailable BRYAN, YANET J Primary Care Unavailable BRYAN, YANET J Attending Unavailable MELANIE CHUNG Referring Unavailable BRYAN, YANET J Primary Care Unavailable SUPPAN, JEANINE A Referring Unavailable BRYAN, YANET J Primary Care Unavailable SUPPAN, JEANINE A Referring Unavailable BRYAN, YANET J Primary Care Unavailable BRYAN, YANET J Primary Care Unavailable JAYDA ACE Attending Unavailable JAYDA ACE Referring Unavailable BRYAN, YANET J Primary Care Unavailable NEERAJ JACOBS Attending Unavailable BRYAN, YANET J Primary Care Unavailable JACOBSNEERAJ Referring Unavailable BRYAN, YANET J Primary Care Unavailable BRYAN, YANET J Referring Unavailable SUPPAN, JEANINE A Attending Unavailable BRYAN, YANET J Primary Care Unavailable SUPPAN, JEANINE A Attending Unavailable BRYAN, YANET J Primary Care Unavailable BRYAN, YANET J Primary Care Unavailable BRYAN, YANET J Attending Unavailable JAYDA ACE Attending Unavailable JAYDA ACE Referring Unavailable BRYAN, YANET J Primary Care Unavailable YANET ADAMS Primary Care Unavailable YANET ADAMS Referring Unavailable YANET ADAMS Primary Care Unavailable YANET ADAMS Referring Unavailable YANET ADAMS Primary Care Unavailable YANET ADAMS Attending Unavailable YANET ADAMS Primary Care Unavailable YANET ADAMS Referring Unavailable Allergies Allergy Classification Reported Allergen(s) Allergy Type Date of Onset Reaction(s) Facility (10 sources) Penicillins Allergy to substance 0 Upset Stomach [facility] (1 source) Penicillins Drug allergy (disorder) 5 [facility] Repository Medications Current Medications Medication Drug Class(es) Dates Sig (Normalized) Sig (Original) acetaminophen 500 mg oral tablet (20 sources) Start: 05-01-2025 take 2 tablets by mouth four times daily acetaminophen (TYLENOL) 500 mg tablet Take 2 tablets by mouth four times daily. 05/01/2025 Active Start: 05-14-2013 take 2 tablets by mo uth every six hours as needed acetaminophen (TYLENOL) 325 mg tablet Take 2 tablets by mouth every 6 hours as needed for Pain. 0 05/14/2013 Suspended Comment on above: Take 2 tablets by mo uth every 6 hours as needed for Pain. benzonatate 100 mg oral capsule (2 sources) Non-narcotic Antitussive Start: End: take 1 capsule by mouth three times daily as needed for cough benzonatate (TESSALON PERLE) 100 mg capsule Indications: Bacterial pneumonia Take 1 capsule by mouth three times a day as needed for cough for up to 15 days. 45 capsule 01/29/2025 02/13/2025 Active cholecalciferol 0.025 mg oral tablet (13 sources) Vitamin D Start: 025 take 1 tablet by mouth once daily cholecalciferol (VITAMIN D3) 1,000 unit tab tablet Take 1 tablet by mouth once daily. 05/02/2025 Active Start: 04-09-2025 End: 04-09-2026 take 1 tablet by mouth once daily cholecalciferol (VITAMIN D3) 50 mcg (2,000 unit) tablet Indications: Vitamin D deficiency Take 1 tablet by mouth once daily. 30 tablet 11 04/09/2025 04/09/2026 Suspended doxycycline hyclate 100 mg oral tablet (1 source) Tetracycline-class Drug Start: 01-29-2025 End: 02-08-2025 take 1 tablet by mouth twice daily doxycycline (VIBRA-TABS) 100 mg tablet Indications: Bacterial pneumonia Take 1 tablet by mouth two times a day for 10 days. 20 tablet 01/29/2025 02/08/2025 Active ibuprofen 400 mg oral tablet (20 sources) Nonsteroidal Anti-inflammatory Drug Start: 08-11-2023 End: 01-02-2025 take 1 tablet by mouth every six hours Ibuprofen 400 mg tablet Active 400 mg PO EVERY 6 HOURS August 11, 2023 12:00am Comment on above: Take by mouth. meloxicam 15 mg oral tablet (20 sources) Nonsteroidal Anti-inflammatory Drug Start: 04-20-2023 End: 01-02-2025 take 1 tablet by mouth once daily Meloxicam 15 mg tablet Active 15 mg PO DAILY August 11, 2023 12:00am Comment on above: Take 1 tablet by joel th once daily. With food. memantine hydrochloride 5 mg oral tablet (20 sources) U-ncwaiw-H-aspartate Receptor Antagonist Start: 05-23-2023 End: 01-08-2025 take 1 tablet by mouth twice daily memantine (NAMENDA) 5 mg tablet Indications: Dementia without behavioral disturbance (HCC) Take 1 tablet by mouth two times a day. 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 30 tablet 5 05/28/2025 11/24/2025 Active 24 hr nicotine 0.583 mg/hr transdermal system (9 sources) Cholinergic Nicotinic Agonist Start: 2024 End: 2024 apply 1 dose transdermal route once daily nicotine (NICODERM) 14 mg/24 hr Apply 1 patch as directed once daily. 30 patch 3 05/28/2025 Active pravastatin sodium 40 mg oral tablet (20 sources) HMG-CoA Reductase Inhibitor Start: 2021 End: 2024 take 1 tablet by mouth once daily pravastatin (PRAVACHOL) 40 mg tablet Indications: Pure hypercholesterolemia Take 1 tablet by mouth once daily. 90 tablet 3 06/11/2025 Active Start: 04-10-2021 End: 01-27-2022 take 1 tablet by mouth once daily pravastatin (PRAVACHOL) 40 mg tablet Indications: Pure hypercholesterolemia Take 1 tablet by mouth once daily. 90 tablet 0 01/27/2022 Active Start: 07-24-2018 take 2 tablets by mo uth at bedtime Pravastatin 20 MG tablet Active 40 mg PO AT BEDTIME July 24, 2018 12:00am cholesterol Start: 07-24-2018 take 40 mg by mouth at bedtime Pravastatin Active 40 MG PO AT BEDTIME July 23, 2018 11:00pm Comment on above: [facility] terazosin 5 mg oral capsule [...] daily. 90 capsule 2 04/10/2021 07/21/2021 Discontinued Start: 07-24-2018 take 5 capsules by out at bedtime Terazosin 1 MG capsule Active 5 mg PO AT BEDTIME July 24, 2018 12:00am Prostate Start: 07-24-2018 take 5 mg by mouth at bedtime Terazosin Active 5 MG PO AT BEDTIME July 23, 2018 11:00pm Comment on above: Take 1 capsule by mo [facility] daily at bedtime. Completed/Discontinued Medications Medication Drug Class(es) Dates Sig (Normalized) Sig (Original) acetaminophen 325 mg / HYDROcodone bitartrate 5 mg oral tablet (10 sources) Opioid Agonist Start: 08-26-2020 End: 08-29-2020 Hydrocodone-Acetami nophen 1 TABLET tablet Discontinued 1 {tbl} PO EVERY 6 HOURS NEEDED as needed for Pain 10 3 0 August 26, 2020 August 28, 2020 1:00am August 29, 2020 1:03am Closed fracture of distal end of left fibula Start: 08-26-2020 End: 08-29-2020 take 1 tablet by mouth every six hours as needed Hydrocodone-Acetaminophen Discontinued 1 TABLET PO EVERY 6 HOURS NEEDED 10 3 August 26, 2020 August 29, 2020 12:03am lansoprazole 30 mg delayed release oral capsule (5 sources) Proton Pump Inhibitor Start: 04-09-2025 End: 04-09-2026 take 1 capsule by mouth once daily lansoprazole (PREVACID) 30 mg capsule Indications: Gastroesophageal reflux disease without esophagitis Take 1 capsule by mouth once daily. 30 capsule 11 04/09/2025 04/24/2025 Discontinued (Erroneous entry) minocycline 50 mg oral capsule (20 sources) Tetracycline-cl ass Drug Start: 03-01-2023 End: 01-02-2025 take 1 capsule by mouth twice daily minocycline (MINOCIN, DYNACIN) 50 mg capsule Indications: Rosacea, acne Take 1 capsule by mouth twice daily. 180 capsule 3 03/01/2023 01/02/2025 Discontinued Start: 04-10-2021 End: 04-29-2022 take 1 capsule by mouth twice daily minocycline (MINOCIN, DYNACIN) 50 mg capsule Indications: Rosacea, acne Take 1 capsule by mouth twice daily. 180 capsule 3 04/29/2022 Active Start: 07-24-2018 take 1 tablet by joel th twice daily Minocycline tablet Active 50 mg PO TWICE A DAY July 24, 2018 12:00am atb Comment on above: Take 1 capsule by mo [facility] twice daily. penicillin v potassium 500 mg oral tablet (2 sources) Start: 11-09-2022 take 1 tablet by mouth four times daily penicillin V potassium (V-CILLIN, VEETIDS) 500 mg tablet Take 500 mg by mouth four times daily. 0 11/09/2022 Active Comment on above: Take 500 mg by mouth four times daily. Problems Active Problems Problem Classification Problem Date Documented Da te Episodic/Chronic Abdominal pain (1 source) Flank pain; Translations: [Unspecified abdominal pain] Episodic Acute cerebrovascular disease (20 sources) Hemorrhage into subarachnoid space of neuraxis; Translations: [Nontraumatic subarachnoid hemorrhage, unspecified] Onset: 3 Resolved: 4 08-12-2023 Chronic Delirium, dementia, and amnestic and other cognitive disorders (15 sources) Dementia; Translations: [Unspecified dementia without behavioral disturbance] Onset: 5 Chronic Diseases of white blood cells (11 sources) Leukocytosis; Translations: [Elevated white blood cell count, unspecified] Onset: 5 04-29-2025 Chronic Disorders of lipid metabolism (20 sources) Pure hypercholesterolemia; Translations: [Pure hypercholesterolemia, unspecified] Onset: 3 09-05-2015 Chronic E Codes: Fall (20 sources) Fall; Translations: [Unspecified fall, initial encounter] Onset: 5 08-11-2023 Episodic Esophageal disorders (1 source) Gastroesophageal reflux disease without esophagitis; Translations: [Gastro-esophageal reflux disease without esophagitis] 04-09-2025 Chronic Genitourinary symptoms and ill-defined conditions (1 source) Retention of urine; Translations: [Retention of urine, unspecified] 07-26-2023 Episodic Hyperplasia of prostate (20 sources) Benign prostatic hyperplasia; Translations: [Benign prostatic hyperplasia with lower urinary tract symptoms] Onset: 8 09-05-2015 Chronic Nutritional deficiencies (1 source) Vitamin D deficiency; Translations: [Vitamin D deficiency, unspecified] 04-09-2025 Chronic Other connective tissue disease (2 sources) Pain in finger of right hand; Translations: [Pain in right finger(s)] Episodic Other connective tissue disease (4 sources) Paraparesis; Translations: [Other symptoms and signs involving the musculoskeletal system] Episodic Other connective tissue disease (2 sources) Other symptoms and signs involving the musculoskeletal system; Translations: [Other musculoskeletal symptoms referable to limbs] Episodic Other connective tissue disease (5 sources) Recurrent falls ; Translations: [Repeated falls] 08-24-2023 Episodic Other diseases of bladder and urethra (20 sources) Bladder neck obstruction; Translations: [Bladder-neck obstruction] Onset: 8 01-01-2008 Chronic Other diseases of kidney and ureters (3 sources) Kidney lesion; Translations: [Disorder of kidney and ureter, unspecified] Episodic Other gastrointestinal disorders (2 sources) Dysphagia; Translations: [Dysphagia, unspecified] 02-27-2025 Episodic Other hereditary and degenerative nervous system conditions (20 sources) Impaired cognition; Translations: [Mild cognitive impairment, so stated] Onset: 2 Chronic Other inflammatory condition of skin (20 sources) Rosacea; Translations: [Rosacea, unspecified] Onset: 0 02-09-2010 Chronic Other injuries and conditions due to external causes (2 sources) Injury of finger of right hand; Translations: [Unspecified injury of right wrist, hand and finger(s), initial encounter] Episodic Other injuries and conditions due to external causes (5 sources) Injury of head; Translations: [Unspecified injury of head, initial encounter] 08-21-2024 Episodic Other injuries and conditions due to external causes (1 source) Unspecified injury of head, initial encounter; Translations: [Unspecified injury of head, initial encounter] Onset: 5 Episodic Other lower respiratory disease (1 source) Multiple nodules of lung; Translations: [Other nonspecific abnormal finding of lung field] 03-11-2023 Episodic Other lower respiratory disease (2 sources) Dyspnea; Translations: [Shortness of breath] 05-28-2025 Episodic Other lower respiratory disease (1 source) Hypoxia; Translations: [Hypoxemia] 06-05-2025 Episodic Other lower respiratory disease (1 source) Shortness of breath; Translations: [SOB (shortness of breath)] Onset: 5 Episodic Other nervous system disorders (20 sources) Cervical myelopathy; Translations: [Disease of spinal cord, unspecified] Onset: 4 12-30-2023 Chronic Other nervous system disorders (1 source) Disease of spinal cord, unspecified; Translations: [Cervical myelopathy (HCC)] Onset: 4 Chronic Other nervous system disorders (9 sources) Impairment of balance; Translations: [Other abnormalities of gait and mobility] Episodic Other nervous system disorders (1 source) Abnormal gait; Translations: [Unsteadiness on feet] 05-28-2025 Episodic Other nervous system disorders (1 source) Unsteadiness on feet; Translations: [Unsteady gait] Onset: 5 Episodic Other non-traumatic joint disorders (2 sources) Pain of left wrist; Translations: [Pain in left wrist] Episodic Other nutritional; endocrine; and metabolic disorders (1 source) Other disorders of plasma-protein metabolism, not elsewhere classified; Translations: [Hypoalbuminemia] Onset: 5 Chronic Other nutritional; endocrine; and metabolic disorders (2 sources) Weight loss; Translations: [Abnormal weight loss] Episodic Other nutritional; endocrine; and metabolic disorders (1 source) Loss of appetite; Translations: [Anorexia] 05-28-2025 Episodic Other nutritional; endocrine; and metabolic disorders (1 source) Anorexia; Translations: [Anorexia] Onset: 5 Episodic Other screening for suspected conditions (not mental disorders or infectious disease) (4 sources) Patient encounter status; Translations: [Encounter for screening for malignant neoplasm of colon] 12-30-2023 Episodic Other skin disorders (3 sources) Mass of upper limb; Translations: [Localized swelling, mass and lump, left upper limb] 05-28-2025 Episodic Other skin disorders (1 source) Localized swelling, mass and lump, left upper limb; Translations: [Mass of left upper extremity] Onset: 5 Episodic Pneumonia (except that caused by tuberculosis or sexually transmitted disease) (10 sources) Bacterial pneumonia; Translations: [Unspecified bacterial pneumonia] Onset: 5 01-29-2025 Episodic Residual codes; unclassified (8 sources) Amnesia; Translations: [Other amnesia] Episodic Residual codes; unclassified (1 source) Tobacco use and exposure - finding; Translations: [Tobacco use] 05-28-2025 Episodic Residual codes; unclassified (1 source) Intolerant of heat; Translations: [Other general symptoms and signs] 05-28-2025 Episodic Residual codes; unclassified (1 source) Tobacco use; Translations: [Tobacco use] Onset: 5 Episodic Residual codes; unclassified (1 source) Other general symptoms and signs; Translations: [Heat intolerance] Onset: 5 Episodic Spondylosis; intervertebral disc disorders; other back problems (5 sources) Degeneration of lumbar intervertebral disc; Translations: [Other intervertebral disc degeneration, lumbar region] Chronic Sprains and strains (1 source) Other sprain of left middle finger, initial encounter; Translations: [Other sprains and strains of hand] Episodic Substance-related disorders (10 sources) Nicotine dependence, unspecified, uncomplicated; Translations: [Tobacco use disorder] Onset: 5 04-25-2025 Chronic Unclassified (1 source) Established Patient Onset: 4 Unclassified (1 source) SDH (subdural hematoma) (HCC); Translations: [SDH (subdural hematoma) (HCC)] Onset: 5 Past or Other Problems Problem Classification Problem Date Documented Date Episodic/Chronic Diabetes mellitus without complication (20 sources) Prediabetes; Translations: [Prediabetes] Onset: 07-02-2024 07-01-2023 Episodic Fracture of lower limb (20 sources) Closed fracture of distal fibula ; Translations: [Other fracture of upper and lower end of left fibula, initial encounter for closed fracture] Onset: 12-22-2022 Resolved: 12-22-2022 08-27-2020 Episodic Intracranial injury (20 sources) History of traumatic brain injury; Translations: [Personal history of traumatic brain injury] Onset: 06-15-2022 Episodic Other circulatory disease (20 sources) History of subdural hematoma; Translations: [Personal history of other diseases of the circulatory system] Onset: 12-30-2023 12-30-2023 Episodic Other circulatory disease (20 sources) History of subarachnoid hemorrhage; Translations: [Personal history of other diseases of the circulatory system] Onset: 12-30-2023 12-30-2023 Episodic Other circulatory disease (2 sources) Other specified symptoms and signs involving the circulatory and respiratory systems; Translations: [Other specified symptoms and signs involving the circulatory and respiratory systems] Onset: 02-08-2025 Episodic Other circulatory disease (1 source) Personal history of other diseases of the circulatory system; Translations: [History of subarachnoid hemorrhage] Onset: 12-30-2023 Episodic Other connective tissue disease (1 source) Repeated falls; Translations: [Frequent falls] Onset: 01-08-2025 Episodic Other diseases of kidney and ureters (1 source) Other obstructive and reflux uropathy; Translations: [BPH with obstruction/lower urinary tract symptoms] Onset: 07-27-2024 Episodic Other injuries and conditions due to external causes (20 sources) Closed injury of head; Translations: [Unspecified injury of head, initial encounter] Onset: 12-22-2022 Resolved: 12-30-2023 12-22-2022 Episodic Other nervous system disorders (20 sources) Ataxia; Translations: [Ataxia, unspecified] Onset: 06-15-2022 12-22-2022 Episodic Other nervous system disorders (1 source) Ataxia, unspecified; Translations: [Ataxia, unspecified] Onset: 12-22-2022 Episodic Other nervous system disorders (1 source) Other abnormalities of gait and mobility; Translations: [Balance problem] Onset: 01-08-2025 Episodic Residual codes; unclassified (2 sources) Other amnesia; Translations: [Memory loss] Onset: 01-08-2025 Episodic Spondylosis; intervertebral disc disorders; other back problems (15 sources) Spinal stenosis of lumbar region; Translations: [Spinal stenosis, lumbar region without neurogenic claudication] Onset: 08-20-2024 Episodic Results Test Name Value Interpretation Reference Range Facility US EXT MASS/FLUID COLLECTION LTon 06-07-2025 US EXT MASS/FLUID COLLECTION LT * * *Final Report* * * DATE OF EXAM: Jun 07 2025 10:55AM WRU 1024 - US EXT MASS/FLUID COLLECTION LT / PROCEDURE REASON: Mass of left upper extremity * * * * Physician Interpretation * * * * US EXT MASS/FLUID COLLECTION LT INDICATION: Mass of left upper extremity COMPARISON: No relevant prior TECHNIQUE: Real-time grayscale ultrasound imaging of the left medial arm cephalad to the antecubital fossa was performed at the site of patient concern. Images were obtained and stored in a permanent archive. RESULT: Site of patient concern demonstrates diffuse subcutaneous edema surrounding an avascular, serpiginous, superficial structure suggesting a small collection. IMPRESSION: Subcutaneous edema at the site of patient concern surrounds a small subcutaneous collection. Septic Tank Setter: PSCB Transcribe Date/Time: Jun 12 2025 5:50P Dictated by : EVGENY BREWSTER MD This examination was interpreted and the report reviewed and electronically signed by: EVGENY BREWSTER MD on Jun 12 2025 5:53PM EST [id number] [facility] PATRICIO PADRON ([id number]) 1955 M Date Time Provider Department 06/06/25 Y[facility]ET [facility] During your visit today, we recorded the following information about you: Nica Marin, JAY JAY 06/06/2025 8:16 AM Signed [facility] calling to state they received an order for pt to have a transport chair however pt recently received a wheelchair and pt only allowed one wheeled item every 5 years. Nica Marin RN Allergies As of Date: 06/06/2025 (No Known Allergies) Date Reviewed: 05/22/2025 Reviewed by: Linh Hector APRN.MECHANICAL INTERN - Fully Assessed Reason for Visit: [facility] Medical Update [Other] Prescriptions as of 06/06/2025 - nicotine (NICODERM) 14 mg/24 hr Apply 1 patch as directed once daily. - mirtazapine (REMERON) 7.5 mg tablet Take 1 tablet by mouth daily at bedtime. - cholecalciferol (VITAMIN D3) 1,000 unit tab tablet Take 1 tablet by mouth once daily. - memantine (NAMENDA) 5 mg tablet Take 1 tablet by mouth two times a day. - terazosin (HYTRIN) 5 mg capsule Take 1 capsule by mouth daily at bedtime. - pravastatin (PRAVACHOL) 40 mg tablet Take 1 tablet by mouth once daily. Meds Comments as of 04/09/2025: Namenda pravastatin Hytrin HYTRINHYTRIN Problem List As Of Date 06/06/2025 Noted Resolved Benign non-nodular prostatic hyperplasia with [...] myelopathy (HCC) [G95.9] 12/30/2023 Prediabetes [R73.03] 07/02/2024 SDH (subdural hematoma) (HCC) [S06.5XAA] 04/24/2025 Nicotine use disorder, F17.2 [F17.200] 04/25/2025 Community acquired pneumonia [J18.9] 04/29/2025 Leukocytosis [D72.829] 04/29/2025 Fall [W19.XXXA] 04/29/2025 Encounter Status:Closed by NIAC MARIN [facility] -- VITO,PATRICIO Dawkins ([id number]) 1955 M Date Time Provider Department 06/05/25 YANET ADAMS [facility] During your visit today, we recorded the following information about you: Estee Kendall RN 06/05/2025 10:44 AM Addendum Patient's calls and states that patient is willing to wear O2 at night. Please place order for this. Patient would like order faxed to [facility] (formerly [facility]). Please review and advise, JAY JAY Dan William J, MD 06/05/2025 10:46 AM Signed written Yolie Bautista RN 06/05/2025 11:04 AM Signed Yessica from [facility] calling in and states that they did an overnight pulse ox on pt and he does qualify for oxygen overnight. She states he would be low for an hour straight and got to as low as 57. She is asking for office notes to be sent to them along with an order for the oxygen. She states in order to qualify for the overnight oxygen, they need a diagnosis more than just shortness of breath. They need a reason for the shortness of breath. Like a heart or lung condition. If they attempt to use sleep apnea, pt will have to have a CPAP titration test. Yanet Adams MD 06/05/2025 11:11 AM Signed Reprinted. Has known shortness of breath. Almas Burris RN 06/06/2025 11:14 AM Signed Faxed oxygen order and ov notes to [employer] per request. Fax number [phone]. states she does not want to deal with [employer]. Allergies As of Date: 06/05/2025 (No Known Allergies) Date Reviewed: 05/22/2025 Reviewed by: Linh Hector APRN.MECHANICAL INTERN - Fully Assessed Reason for Visit: Patient Update [1234] Results [95] Cmt: of overnight pulse ox Primary Visit Diagnosis:Hypoxia [R09.02] Other Visit Diagnosis:SOB (shortness of breath) [R06.02] Order(s):DME SUPPLY OR ACCESSORY, NOS [[id number]] Order #: [id number] Prescriptions as of 06/06/2025 - nicotine (NICODERM) 14 mg/24 hr Apply 1 patch as directed once daily. - mirtazapine (REMERON) 7.5 mg tablet Take 1 tablet by mouth daily at bedtime. - cholecalciferol (VITAMIN D3) 1,000 unit tab tablet Take 1 tablet by mouth once daily. - memantine (NAMENDA) 5 mg tablet Take 1 tablet by mouth two times a day. - terazosin (HYTRIN) 5 mg capsule Take 1 capsule by mouth daily at bedtime. - pravastatin (PRAVACHOL) 40 mg tablet Take 1 tablet by mouth once daily. Meds Comments as of 04/09/2025: Namenda pravastatin Hytrin HYTRINHYTRIN Problem List As Of Date 06/05/2025 Noted Resolved Benign non-nodular prostatic hyperplasia with [...] myelopathy (HCC) [G95.9] 12/30/2023 Prediabetes [R73.03] 07/02/2024 SDH (subdural hematoma) (HCC) [S06.5XAA] 04/24/2025 Nicotine use disorder, F17.2 [F17.200] 04/25/2025 Community acquired pneumonia [J18.9] 04/29/2025 Leukocytosis [D72.829] 04/29/2025 Fall [W19.XXXA] 04/29/2025 Encounter Status:Closed by Almas BURRIS on 06/06/25 Normal [facility] CBC W Auto Differential pane l (Bld)on 06-04-2025 Basophils (Bld) [#/Vol] 0.07 10*3/uL Normal <0.11 [facility] Comment on above: Order Comment: Speci men Type: BLOOD SPECIMENOrdering Facility: [facility] Address: [address] [place] [address] Performed By: #### 5 7021-8 ####[facility] CENTERHENRY [id number] [place] [address] [place] Basophils/100 WBC (Bld) 0.9 % Normal [facility] Comment on above: Order Comment: Speci men Type: BLOOD SPECIMENOrdering Facility: [facility] Address: [address] [place] [address] Performed By: #### 5 7021-8 ####[facility] HOSPITALNCLIA [id number] [place] [address] [place] Differential cell count method Nom (Bld) Auto Normal [facility] Comment on above: Order Comment: Speci men Type: BLOOD SPECIMENOrdering Facility: [facility] Address: [address] [place] [address] Performed By: #### 5 7021-8 ####[facility] HOSPITALNCINTERMOUNTAIN HEALTHCARE [id number] [place] [address] [place] Eosinophils (Bld) [#/Vol] 0.25 10*3/uL Normal <0.46 [facility] Comment on above: Order Comment: Speci men Type: BLOOD SPECIMENOrdering Facility: [facility] Address: [address] [place] [address] Performed By: #### 5 7021-8 ####[facility] HOSPITALNCLIA [id number] [place] [address] [place] Eosinophils/100 WBC (Bld) 3.1 % Normal [facility] Comment on above: Order Comment: Speci men Type: BLOOD SPECIMENOrdering Facility: [facility] Address: [address] [place] [address] Performed By: #### 5 7021-8 ####[facility] HOSPITALNCLIA [id number] [place] [address] [place] Erythrocyte distribution width (RBC) [Ratio] 12.7 % Normal 11.5-15.0 [facility] Comment on above: Order Comment: Speci men Type: BLOOD SPECIMENOrdering Facility: [facility] Address: [address] [place] [address] Performed By: #### 5 7021-8 ####[facility] HOSPITALNCLI [id number] [place] [address] [place] Hematocrit (Bld) [Volume fraction] 44.9 % Normal 39.0-51.0 [facility] Comment on above: Order Comment: Speci men Type: BLOOD SPECIMENOrdering Facility: [facility] Address: [address] [place] [address] Performed By: #### 5 7021-8 ####[facility] HOSPITALDAV [id number] [place] [address] [place] Hemoglobin (Bld) [Mass/Vol] 15.3 g/dL Normal 13.0-17.0 [facility] Comment on above: Order Comment: Speci men Type: BLOOD SPECIMENOrdering Facility: [facility] Address: [address] [place] [address] Performed By: #### 5 7021-8 ####[facility] HOSPITALLOVELYINTERMOUNTAIN HEALTHCARE [id number] [place] [address] [place] Immature granulocytes (Bld) [#/Vol] 10*3/uL Normal <0.10 [facility] Comment on above: Order Comment: Speci men Type: BLOOD SPECIMENOrdering Facility: [facility] Address: [address] [place] [address] Performed By: #### 5 7021-8 ####[facility] HOSPITALDAVA [id number] [place] [address] [place] Immature granulocytes/100 WBC (Bld) 0.2 % Normal [facility] Comment on above: Order Comment: Speci men Type: BLOOD SPECIMENOrdering Facility: [facility] Address: [address] [place] [address] Performed By: #### 5 7021-8 ####[facility] CENTERLIA [id number] [place] [address] [place] Lymphocytes (Bld) [#/Vol] 2.40 10*3/uL Normal 1.00-4.00 [facility] Comment on above: Order Comment: Speci men Type: BLOOD SPECIMENOrdering Facility: [facility] Address: [address] [place] [address] Performed By: #### 5 7021-8 ####[facility] MARIA AELMWOODDAV [id number] [place] [address] [place] Lymphocytes/100 WBC (Bld) 29.6 % Normal [facility] Comment on above: Order Comment: Speci men Type: BLOOD SPECIMENOrdering Facility: [facility] Address: [address] [place] [address] Performed By: #### 5 7021-8 ####[facility] HOSPITALNCINTERMOUNTAIN HEALTHCARE [id number] [place] [address] [place] MCH (RBC) [Entitic mass] 30.3 pg Normal 26.0-34.0 [facility] Comment on above: Order Comment: Speci men Type: BLOOD SPECIMENOrdering Facility: [facility] Address: [address] [place] [address] Performed By: #### 5 7021-8 ####[facility] [id number] [place] [address] [place] MCHC (RBC) [Mass/Vol] 34.1 g/dL Normal 30.5-36.[address] [facility] Comment on above: Order Comment: Speci men Type: BLOOD SPECIMENOrdering Facility: [facility] Address: [address] [place], [place] [address] Performed By: #### 5 7021-8 ####[facility] HOSPITALNCLIA [id number] [place] [address] [place] MCV (RBC) [Entitic vol] 88.9 fL Normal 80.0-100.0 [facility] Comment on above: Order Comment: Speci men Type: BLOOD SPECIMENOrdering Facility: [facility] Address: [address] [place], [place] [address] Performed By: #### 5 7021-8 ####[facility] MILLTOWNCLIA [id number] [place] [address] [place] Monocytes (Bld) [#/Vol] 0.51 10*3/uL Normal <0.87 [facility] Comment on above: Order Comment: Speci men Type: BLOOD SPECIMENOrdering Facility: [facility] Address: [address] [place] [address] Performed By: #### 5 7021-8 ####[facility] HOSPITALWNCLIA [id number] [place] [address] [place] Monocytes/100 WBC (Bld) 6.3 % Normal [facility] Comment on above: Order Comment: Speci men Type: BLOOD SPECIMENOrdering Facility: [facility] Address: [address] [place] [address] Performed By: #### 5 7021-8 ####[facility] CENTERLIA [id number] [place] [address] [place] Neutrophils (Bld) [#/Vol] 4.87 10*3/uL Normal 1.45-7.50 [facility] Comment on above: Order Comment: Speci men Type: BLOOD SPECIMENOrdering Facility: [facility] Address: [address] [place] [address] Performed By: #### 5 7021-8 ####[facility] MILLWNCLIA [id number] [place] [address] [place] Neutrophils/100 WBC (Bld) 59.9 % Normal [facility] Comment on above: Order Comment: Speci men Type: BLOOD SPECIMENOrdering Facility: [facility] Address: [address] [place] [address] Performed By: #### 5 7021-8 ####[facility] CENTERLIA [id number] [place] [address] [place] Nucleated RBC (Bld) [#/Vol] 10*3/uL Normal <0.01 [facility] Comment on above: Order Comment: Speci men Type: BLOOD SPECIMENOrdering Facility: [facility] Address: [address] [place] [address] Performed By: #### 5 7021-8 ####[facility] [id number] [place] [address] [place] Nucleated RBC/100 WBC (Bld) [Ratio] 0.0 /100 WBC Normal [facility] Comment on above: Order Comment: Speci men Type: BLOOD SPECIMENOrdering Facility: [facility] Address: [address] [place] [address] Performed By: #### 5 7021-8 ####[facility] HOSPITALNCINTERMOUNTAIN HEALTHCARE [id number] [place] [address] [place] Platelet mean volume (Bld) [Entitic vol] 9.3 fL Normal 9.0-12.7 [facility] Comment on above: Order Comment: Speci men Type: BLOOD SPECIMENOrdering Facility: [facility] Address: [address] [place] [address] Performed By: #### 5 7021-8 ####[facility] [id number] [place] [address] [place] Platelets (Bld) [#/Vol] 217 10*3/uL Normal 150-400 [facility] Comment on above: Order Comment: Speci men Type: BLOOD SPECIMENOrdering Facility: [facility] Address: [address] [place] [address] Performed By: #### 5 7021-8 ####[facility] HOSPITALNCLIA [id number] [place] [address] [place] RBC (Bld) [#/Vol] 5.05 10*6/uL Normal 4.20-6.00 [facility] Comment on above: Order Comment: Speci men Type: BLOOD SPECIMENOrdering Facility: [facility] Address: [address] [place] [address] Performed By: #### 5 7021-8 ####[facility] HOSPITALNCLIA [id number] [place] [address] [place] WBC (Bld) [#/Vol] 8.12 10*3/uL Normal 3.70-11.00 [facility] Comment on above: Order Comment: Speci men Type: BLOOD SPECIMENOrdering Facility: [facility] Address: [address] [place] [address] Performed By: #### 5 7021-8 ####[facility] HOSPITALNCLIA [id number] [address] [place] CNPRos 06-04-2025 [facility] PATRICIO PADRON ([id number]) 1955 M Date Time Provider Department 06/04/25 YANET ADAMS [facility] During your visit today, we recorded the following information about you: Mirella Lopez LPN 06/04/2025 1:13 PM Signed Results for patient. Scan on 06/04/2025 12:47 PM by Provider, SABINA Saxena: overnight oximetry Yanet Adams MD 06/04/2025 3:18 PM Signed His oxygen level does decline overnight. He needs to wear oxygen at hs. I believe he has at home. Verify he has it and would use it at 2 L nc at hs. Lara Heath, RN 06/04/2025 4:00 PM Signed Pt's called and is notified of providers results and instructions. She voices understanding and states she will talk with her to see if he will wear it. She states he doesn't have O2 at home. I told her they would need to call their insurance and find out what DME they would need to go through to get the O2. Pt's is going to call in to let providers office know if Pt would be willing to wear O2, and then what DME. JAY JAY Magaña, Yanet Anderson MD 06/04/2025 4:25 PM Signed Noted. Allergies As of Date: 06/04/2025 (No Known Allergies) Date Reviewed: 05/22/2025 Reviewed by: Linh Hector APRN.MECHANICAL INTERN - Fully Assessed Reason for Visit: Results [95] Prescriptions as of 06/04/2025 - nicotine (NICODERM) 14 mg/24 hr Apply 1 patch as directed once daily. - mirtazapine (REMERON) 7.5 mg tablet Take 1 tablet by mouth daily at bedtime. - cholecalciferol (VITAMIN D3) 1,000 unit tab tablet Take 1 tablet by mouth once daily. - memantine (NAMENDA) 5 mg tablet Take 1 tablet by mouth two times a day. - terazosin (HYTRIN) 5 mg capsule Take 1 capsule by mouth daily at bedtime. - pravastatin (PRAVACHOL) 40 mg tablet Take 1 tablet by mouth once daily. Meds Comments as of 04/09/2025: Namenda pravastatin Hytrin HYTRINHYTRIN Problem List As Of Date 06/04/2025 Noted Resolved Benign non-nodular prostatic hyperplasia with [...] myelopathy (HCC) [G95.9] 12/30/2023 Prediabetes [R73.03] 07/02/2024 SDH (subdural hematoma) (HCC) [S06.5XAA] 04/24/2025 Nicotine use disorder, F17.2 [F17.200] 04/25/2025 Community acquired pneumonia [J18.9] 04/29/2025 Leukocytosis [D72.829] 04/29/2025 Fall [W19.XXXA] 04/29/2025 Encounter Status:Closed by YANET ADAMS on 06/04/25 Normal [facility] TSH SerPl-aCncon 06-04-2025 TSH Qn 1.940 m[IU]/L Normal 0.270-4.200 [facility] Comment on above: Order Comment: Speci men Type: BLOOD SPECIMENOrdering Facility: [facility] Address: [address] [place] [address] Performed By: #### 3 016-3 ####[facility] LABCLIA [id number] [address] OF [facility] CNOVsilke 05-28-2025 CNOV Office Visit (FAMPWS ) -- PATRICIO PADRON ([id number]) 1955 [place] Date Time Provider Department 05/28/25 4:00 PM BRYAN, YANET J FAMPWS During your visit today, we recorded the following information about you: Pulse Blood pressure Weight 84/minute 122/82 65.8 kg Yanet Adams MD 05/28/2025 5:17 PM Signed Patricio Padron is a 70-year-old male with a history of dementia, accompanied by his caregiver, presenting for follow-up after a recent fall and hospitalization, with additional concerns about decreased appetite, dyspnea, and left arm swelling. HPI Recent Fall and Hospitalization: - Unwitnessed fall on 04/24/25, resulting in head trauma and a small right temporal subdural hematoma. - Hospitalized at [facility] from 04/24 to 05/01/25; attended by Dr. Erika Milton. - Neurosurgery performed serial CTs showing stable appearance; recommended conservative treatment and Keppra for one week. - Underwent a syncopal workup, including an echocardiogram, carotid ultrasound, and orthostatic vital signs. - Treated with azithromycin and ceftriaxone for possible pneumonia; symptoms improved. Chest xray was negative. - Transferred to [facility] for rehabilitation; participated in physical and occupational therapy. - Recent CT on 05/17 showed near-complete resolution of the subdural hemorrhage. Decreased Appetite: - Inconsistent oral intake; some days consuming only Ensure. - No dysphagia, odynophagia, or cough reported. - Previously evaluated by speech therapy for swallowing difficulties. - Palliative care involved; advised to increase Ensure intake. Dyspnea: - Occasional episodes of dyspnea, particularly when overheated. - No chest pain or lower extremity edema reported. - Oxygen saturation levels have been normal when checked. Left Arm Swelling: - Swelling in the left antecubital fossa following an IV infiltration during hospitalization. - Swelling has decreased but remains firm; no erythema or warmth currently. - No pain reported in the affected area. Dementia: - Progressive worsening of dementia symptoms. - Currently on memantine for management. - Nocturnal restlessness, with frequent awakenings during the night. - Daytime somnolence, with periods of dozing throughout the day. - Minimal ambulation; primarily uses a wheelchair for mobility. - Nicoderm patch 14 mg being used to prevent smoking. MEDICATIONS: Current Outpatient Medications Medication Sig nicotine (NICODERM) 14 mg/24 hr Apply 1 patch as directed once daily. mirtazapine (REMERON) 7.5 mg tablet Take 1 tablet by mouth daily at bedtime. cholecalciferol (VITAMIN D3) 1,000 unit tab tablet Take 1 tablet by mouth once daily. memantine (NAMENDA) 5 mg tablet Take 1 tablet by mouth two times a day. terazosin (HYTRIN) 5 mg capsule Take 1 capsule by mouth daily at bedtime. pravastatin (PRAVACHOL) 40 mg tablet Take 1 tablet by mouth once daily. No current facility-administered medications for this visit. ALLERGIES: ALLERGIES No Known Allergies PAST MEDICAL HISTORY Diagnosis Date Arthritis BPH with obstruction/lower urinary tract symptoms Renal lesion 07/26/2023 Rosacea Subarachnoid hemorrhage (HCC) 08/11/2023 PAST SURGICAL HISTORY Procedure Laterality Date PAST SURGICAL HISTORY OF flexible cystoscopy PAST SURGICAL HISTORY OF 1958 tonsillectomy PAST SURGICAL HISTORY OF 2017 left eye surgery PAST SURGICAL HISTORY OF 2023 Surgery to drain hematoma on brain- not successful TRANSURETHRAL ELEC-SURG PROSTATECTOM N/A 08/18/2021 TRANSURETHRAL ELEC-SURG PROSTATECTOM 2019 FAMILY HISTORY Problem Relation Age of Onset Arthritis Mother Cancer Mother melanoma Heart Mother Viral myocarditis. GI Father ulcers SOCIAL HISTORY[1] Reviewed current medications, allergies, past medical history, surgical history, family history and social history today. REVIEW OF SYSTEMS Constitutional: (+) decreased appetite, (+) poor oral intake, (+) heat intolerance, (+) cold intolerance Cardiovascular: (-) chest pain, (-) peripheral edema Respiratory: (+) episodic dyspnea Gastrointestinal: (-) dysphagia, (-) odynophagia, (-) choking Genitourinary: (+) intermittent urinary retention Musculoskeletal: (+) generalized weakness, (+) left antecubital soft tissue fullness, (-) left antecubital pain Skin: (+) senile purpura, (+) skin bumps, (-) left antecubital erythema, (-) left antecubital warmth, (-) skin ulcers Psychiatric: (+) nocturnal awakenings, (+) daytime somnolence HEALTH MAINTENANCE: Reviewed health maintenance issues today and recommended the following in detail. RSV Vaccine(1 - Risk 60-74 years 1-dose series) Never done Medicare Advantage Annual Wellness Visit Never done Colorectal Cancer Screening due on 01/17/2025 LAB REVIEWED: Labs: (05/14/2025) - WBC: 7.7 - Hemoglobin: 14.1 - Platelets: 307 - BMP (more content not included)... Normal [facility] CNOVon 05-22-2025 CNOV Office Visit (NEAGCL M) -- PATRICIO PADRON ([id number]) 1955 Date Time Provider Department 05/22/25 9:30 AM LINH HECTOR NEAGCLM During your visit today, we recorded the following information about you: Pulse Respiration Blood pressure 105/minute 16/minute 102/69 Linh Hector APRN.CNP 05/22/2025 9:25 AM Signed NEUROSURGERY FOLLOW UP OFFICE NOTE Linh Hector APRN.CNP Date of visit: May 22, 2025 Patient Name: Mr.Gary Augustin Padron Date of : 1955 Current Age: [age] year old Sex: male MRN/E# [id number] Last Office Visit: Hospital follow-up CHIEF COMPLAINT: Patient presents with: Established Patient Clinical History: - 08/12/23 -R frontoparietal tSAH, right subdural hygroma - 09/12/23 - Acute R SDH with R-L MLS - recommended MMA embolization - pt refused - 09/19/23 - Increased R SDH (symptomatic) - left AMA from [facility] - 10/04/23 - Attempted R MMA embolization - unable to access origin of R MMA - 11/21/23 - CT B showed resolution of R SDH HPI: The patient presents for a hospital follow up with imaging (CT B) for evaluation. This is a 70-year-old male with a PMHx of arthritis, BPH, renal lesion, tSAH (07/2023) who was seen after transfer from [facility] for consult at [facility] on 04/24/[address] Leblanc. He presented as a level 1 trauma after a GL F causing him to strike his head on the ground earlier that morning. He was amnesic to the event and had an unknown LOC. He denied use of blood thinning medications. Workup was completed and showed a thin R convexity SDH. He was loaded with 1 g of Keppra and transferred to [facility] for higher acuity care. No emergent neurosurgical intervention was indicated. He was started on a short course of oral Keppra and monitored in the ICU with frequent neurochecks and serial imaging. Repeat imaging remained stable and no surgical intervention was ultimately warranted. Recommendation was to follow-up in 2 to [address] prompting his visit today. Since discharge he states that he is overall doing well and denies any specific complaints or concerns. Neurologically he is back to baseline. He denies any headache, visual changes, speech deficits, seizure activity, motor or sensory changes. His gait is compensated and he utilizes a rollator for ambulation while at home but also spends time in a wheelchair due to residual right-sided weakness from a previous bleed. He presents for image review, evaluation and plan of care. SYMPTOMS: None PREVIOUS CONSERVATIVE TREATMENTS: Keppra -short course PREVIOUS SURGERY: SURGERY #1: Attempted right MMA embolization on 10/04/[address] Rivero. FINDINGS: The right middle meningeal artery is solely supplied by the right ophthalmic artery. Attempted access to the origin of the right MMA for coil embolization, however could not get past its shared origin with the ciliary artery. 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 PAST MEDICAL HISTORY Diagnosis Date Arthritis BPH with obstruction/lower urinary tract symptoms Renal lesion 07/26/2023 Rosacea Subarachnoid hemorrhage (HCC) 08/11/2023 PAST SURGICAL HISTORY Procedure Laterality Date PAST SURGICAL HISTORY OF flexible cystoscopy PAST SURGICAL HISTORY OF 1958 tonsillectomy PAST SURGICAL HISTORY OF 2017 left eye surgery PAST SURGICAL HISTORY OF 2023 Surgery to drain hematoma on brain- not successful TRANSURETHRAL ELEC-SURG PROSTATECTOM N/A 08/18/2021 TRANSURETHRAL ELEC-SURG PROSTATECTOM 2019 FAMILY HISTORY Problem Relation Age of Onset Arthritis Mother Cancer Mother melanoma Heart Mother Viral myocarditis. GI Father ulcers ALLERGIES No Known Allergies Current Outpatient Medications Medication Sig Dispense Refill cholecalciferol (VITAMIN D3) 1,000 unit tab tablet Take 1 tablet by mouth once daily. nicotine (NICODERM) 14 mg/24 hr Apply 1 patch as directed once daily. memantine (NAMENDA) 5 mg tablet Take 1 tablet by mouth two times a day. 60 tablet 5 terazosin (HYTRIN) 5 mg capsule Take 1 capsule by mouth daily at bedtime. 90 capsule 3 pravastatin (PRAVACHOL) 40 mg tablet Take 1 tablet by mouth once daily. 90 tablet 3 No current facility-administered medications for this visit. REVIEW OF SYSTEMS: Review of Systems All other systems reviewed and are negative. Head: (-) headache Eyes: (-) diplopia, (-) vision loss Ears/Nose/Mouth/Throat: (+) frequent throat clearing, (-) choking Gastrointestinal: (+) dysphagia Neurological: (+) right-sided weakness, (+) difficulty speaking OBJECTIVE: BP 102/69 Pulse 105 Resp 16 SpO2 97% PHYSICAL EXAM: Mental State : Alert. Attention span and concentration normal for patient's age. Speech normal, fluent. No receptive or expressive speech defic (more content not included)... Normal [facility] CT BRAIN WO IVCONon 05-17-20 CT BRAIN WO IVCON * * *Final Report* * * DATE OF EXAM: May 17 2025 12:06PM [facility] 0504 - CT BRAIN WO IVCON / PROCEDURE REASON: Subdural hematoma (HCC) * * * * Physician Interpretation * * * * EXAMINATION: CT BRAIN WO IVCON CLINICAL HISTORY: Subdural hematoma TECHNIQUE: Serial axial images without IV contrast were obtained from the vertex to the foramen magnum. MQ: CTBWO_3 CT Radiation dose: Integrated Dose-Length Product (DLP) for this visit = 784 mGy*cm CT Dose Reduction Employed: Automated exposure control(AEC) and iterative recon COMPARISON: CT head 04/25/2025 RESULT: Localizer images: No additional findings. Post-operative change: None. Acute change: No evidence of acute large territorial infarct Hemorrhage: No evidence of new/acute intracranial hemorrhage. ECASS hemorrhagic transformation score: Not Applicable Mass Lesion / Mass Effect: Compared to 04/25/2025, significant interval decrease in size/conspicuity of the extra-axial/subdural collection along the right cerebral convexity, now low attenuating and measuring 1-2 mm in thickness (previously up to 4-5 mm). Improved mass effect upon the right cerebral hemisphere. No midline shift. Similar low attenuating extra-axial/CSF collections along the anterior parafalcine regions and bifrontal convexities. Chronic change: Scattered patchy foci of low attenuation are present within the supratentorial white matter, a nonspecific finding that most commonly represents mild small vessel disease. Parenchyma: There is moderate generalized volume loss. Ventricles: Ventricular enlargement concordant with the degree of parenchymal volume loss. Paranasal sinuses and skull base: Partial opacification of the mastoid air cells, right greater than left. No evidence of acute calvarial fracture IMPRESSION: Compared to 04/25/2025, near complete resolution of the right convexity subdural hemorrhage. No evidence of new/acute hemorrhage or acute large territorial infarct. Chronic changes, as discussed. Septic Tank Setter: [facility] Transcribe Date/Time: May 17 2025 12:13P Dictated by : RUDY ABEBE MD This examination was interpreted and the report reviewed and electronically signed by: RUDY ABEBE MD on May 17 2025 12:20PM EST [id number] Normal [facility] CT Head WO contraston 2024 IMPRESSION: Compared to 04/25/2025, near complete resolution of the right convexity subdural hemorrhage. No evidence of new/acute hemorrhage or acute large territorial infarct. Chronic changes, as discussed. Septic Tank Setter: [facility] Transcribe Date/Time: May 17 2025 12:13P Dictated by : RUDY ABEBE MD This examination was interpreted and the report reviewed and electronically signed by: RUDY ABEBE MD on May 17 2025 12:20PM EST DIVISION OF RADIOLOGY * * *Final Report* * * DATE OF EXAM: May 17 2025 12:06PM [facility] 0504 - CT BRAIN WO IVCON / PROCEDURE REASON: Subdural hematoma (HCC) * * * * Physician Interpretation * * * * EXAMINATION: CT BRAIN WO IVCON CLINICAL HISTORY: Subdural hematoma TECHNIQUE: Serial axial images without IV contrast were obtained from the vertex to the foramen magnum. MQ: CTBWO_3 CT Radiation dose: Integrated Dose-Length Product (DLP) for this visit = 784 mGy*cm CT Dose Reduction Employed: Automated exposure control(AEC) and iterative recon COMPARISON: CT head 04/25/2025 RESULT: Localizer images: No additional findings. Post-operative change: None. Acute change: No evidence of acute large territorial infarct Hemorrhage: No evidence of new/acute intracranial hemorrhage. ECASS hemorrhagic transformation score: Not Applicable Mass Lesion / Mass Effect: Compared to 04/25/2025, significant interval decrease in size/conspicuity of the extra-axial/subdural collection along the right cerebral convexity, now low attenuating and measuring 1-2 mm in thickness (previously up to 4-5 mm). Improved mass effect upon the right cerebral hemisphere. No midline shift. Similar low attenuating extra-axial/CSF collections along the anterior parafalcine regions and bifrontal convexities. Chronic change: Scattered patchy foci of low attenuation are present within the supratentorial white matter, a nonspecific finding that most commonly represents mild small vessel disease. Parenchyma: There is moderate generalized volume loss. Ventricles: Ventricular enlargement concordant with the degree of parenchymal volume loss. Paranasal sinuses and skull base: Partial opacification of the mastoid air cells, right greater than left. No evidence of acute calvarial fracture DIVISION OF RADIOLOGY Provider, [facility] - 05/17/2025 * * *Final Report* * * DATE OF EXAM: May 17 2025 12:06PM [facility] 0504 - CT BRAIN WO IVCON / PROCEDURE REASON: Subdural hematoma (HCC) * * * * Physician Interpretation * * * * EXAMINATION: CT BRAIN WO IVCON CLINICAL HISTORY: Subdural hematoma TECHNIQUE: Serial axial images without IV contrast were obtained from the vertex to the foramen magnum. MQ: CTBWO_3 CT Radiation dose: Integrated Dose-Length Product (DLP) for this visit = 784 mGy*cm CT Dose Reduction Employed: Automated exposure control(AEC) and iterative recon COMPARISON: CT head 04/25/2025 RESULT: Localizer images: No additional findings. Post-operative change: None. Acute change: No evidence of acute large territorial infarct Hemorrhage: No evidence of new/acute intracranial hemorrhage. ECASS hemorrhagic transformation score: Not Applicable Mass Lesion / Mass Effect: Compared to 04/25/2025, significant interval decrease in size/conspicuity of the extra-axial/subdural collection along the right cerebral convexity, now low attenuating and measuring 1-2 mm in thickness (previously up to 4-5 mm). Improved mass effect upon the right cerebral hemisphere. No midline shift. Similar low attenuating extra-axial/CSF collections along the anterior parafalcine regions and bifrontal convexities. Chronic change: Scattered patchy foci of low attenuation are present within the supratentorial white matter, a nonspecific finding that most commonly represents mild small vessel disease. Parenchyma: There is moderate generalized volume loss. Ventricles: Ventricular enlargement concordant with the degree of parenchymal volume loss. Paranasal sinuses and skull base: Partial opacification of the mastoid air cells, right greater than left. No evidence of acute calvarial fracture IMPRESSION IMPRESSION: Compared to 04/25/2025, near complete resolution of the right convexity subdural hemorrhage. No evidence of new/acute hemorrhage or acute large territorial infarct. Chronic changes, as discussed. Septic Tank Setter: [facility] Transcribe Date/Time: May 17 2025 12:13P Dictated by : RUDY ABEBE MD This examination was interpreted and the report reviewed and electronically signed by: RUDY ABEBE MD on May 17 2025 12:20PM EST [facility] Radiology Study observation (narrative) [facility] CT Head WO contrastOrdered B y: [facility] Provider on 05-17-2025 [facility] Absolute lymphocyte countOrd ered By: Ayana Choi on 05-14-2025 Lymphocytes Auto (Unsp spec) [#/Vol] 2.08 10*3/uL 0.83-4.51 [facility] Absolute neutrophil countOrd ered By: Ayana Choi on 05-14-2025 Neutrophils (Bld) [#/Vol] 4.6 10*3/uL 2.0-7.7 [facility] Anion gap in Serum or Plasma Ordered By: Ayana Choi on 05-14-2025 Anion gap [Moles/Vol] 10 mmol/L 5-15 [facility] Automated lymphocyte count a s percentage of total leukocytesOrdered By: Ayana Choi on 05-14-2025 Lymphocytes/100 WBC Auto (Unsp spec) 27.0 % 19-41 [facility] BUN/creatinine ratioOrdered By: Ayana Choi on 05-14-2025 Urea nitrogen/Creatinine [Mass ratio] 16.3 mg/mg 10-20 [facility] Basophil percentageOrdered B y: Ayana Choi on 05-14-2025 Basophils/100 WBC (Bld) 0.8 % 0-1 [facility] Carbon dioxide, total [Moles /volume] in Central venous bloodOrdered By: Ayana Choi on 05-14-2025 CO2 [Moles/Vol] 22.3 mmol/L 21.0-32.0 [facility] Chloride assayOrdered By: Clay Choi on 05-14-2025 Chloride [Moles/Vol] 106 mmol/L 98-108 [facility] Eosinophil percentageOrdered By: Claymelissa Choi on 05-14-2025 Eosinophils/100 WBC (Bld) 3.9 % 0-5 [facility] Erythrocyte distribution wid th ratioOrdered By: joppavicky Choi on 05-14-2025 Erythrocyte distribution width (RBC) [Ratio] 13.3 % 11.6-14.6 [facility] Erythrocyte distribution wid th standard deviationOrdered By: apolinarjoppavicky Choi on 05-14-2025 Erythrocyte distribution width (RBC) [Ratio] 44.2 fl High 35.1-43.9 [facility] Glomerular filtration rate ( GFR) estimation/1.73 sq m using serum, plasma, or whole bOrdered By: Ayana Choi on 05-14-2025 GFR/1.73 sq M.predicted among non-blacks MDRD (S/P/Bld) [Vol rate/Area] 100 mL/min/{1.73_m2} >60 [facility] Comment on above: mL/min/1.73m2 CKD-EP I Creatinine Equation (2020) Hematocrit Auto (Bld) [Volum e fraction]Ordered By: Ayana Choi on 05-14-2025 Hematocrit (Bld) [Volume fraction] 42.0 % 40-54 [facility] Hemoglobin measurementOrdere d By: Ayana Choi on 05-14-2025 Hemoglobin (Bld) [Mass/Vol] 14.1 g/dL 13.0-16.5 [facility] Immature granulocytes/100 WB C Auto (Bld)Ordered By: Ayana Choi on 05-14-2025 Immature granulocytes/100 WBC (Bld) 0.400 % 0.0-0.9 [facility] Comment on above: IG% - Immature Granu locytes (promyelocytes, myelocytes and metamyelocytes) > 1% indicates that a LEFT SHIFT is Present. MCV (mean corpuscular volume ) determinationOrdered By: Ayana Choi on 05-14-2025 MCV (RBC) [Entitic vol] 90.1 fL 80-94 [facility] Mean corpuscular hemoglobin (MCH) determinationOrdered By: Ayana Choi on 05-14-2025 MCH (RBC) [Entitic mass] 30.3 pg 27.0-32.0 [facility] Mean corpuscular hemoglobin concentration (MCHC) determinationOrdered By: jesus Choi on 05-14-2025 MCHC (RBC) [Mass/Vol] 33.6 g/dL 32-36 [facility] Mean platelet volume determi nationOrdered By: Ayana Choi on 05-14-2025 Platelet mean volume (Bld) [Entitic vol] 9.6 fL 6.2-12.0 [facility] Monocyte percentageOrdered B y: Ayana Choi on 05-14-2025 Monocytes/100 WBC (Bld) 8.3 % 0-10 [facility] Neutrophil percentageOrdered By: [facility] Osegueraestefanía on 05-14-2025 Neutrophils/100 WBC (Bld) 59.6 % 47-70 [facility] Nucleated red blood cell per centageOrdered By: jesus Choi on 05-14-2025 Nucleated RBC/100 WBC (Bld) [Ratio] 0 % 0-5 [facility] Platelet countOrdered By: Clay apolinarmelissa Choi on 05-14-2025 Platelets (Bld) [#/Vol] 307 10*3/uL 150-450 [facility] Potassium measurement (mass/ volume)Ordered By: Ayana Choi on 05-14-2025 Potassium (Unsp spec) [Mass/Vol] 4.0 mmol/L 3.3-5.1 [facility] RBC Auto (Bld) [#/Vol]Ordere d By: Ayana Choi on 05-14-2025 RBC (Bld) [#/Vol] 4.66 10*6/uL 4.6-6.2 [facility] Serum creatinine measurement (mass/volume)Ordered By: Ayana Choi on 05-14-2025 Creatinine [Mass/Vol] 0.66 mg/dL Low 0.70-1.20 [facility] Serum glucose measurement (m ass/volume)Ordered By: Ayana Choi on 05-14-2025 Glucose [Mass/Vol] 97 mg/dL 70-99 [facility] Serum or plasma calcium zoe urement (mass/volume)Ordered By: Ayana Choi on 05-14-2025 Calcium [Mass/Vol] 8.8 mg/dL 7.6-11.0 [facility] Serum or plasma urea nitroge n measurement (mass/volume)Ordered By: Ayana Choi on 05-14-2025 Urea nitrogen [Mass/Vol] 11 mg/dL 4-19 [facility] Sodium levelOrdered By: Marcell Oseiestefanía on 05-14-2025 Sodium [Moles/Vol] 139 mmol/L 133-145 [facility] White blood cell (WBC) count Ordered By: Ayana Choi on 05-14-2025 WBC (Bld) [#/Vol] 7.7 10*3/uL 4.4-11.0 [facility] Absolute lymphocyte countOrd ered By: Ayana Choi on 05-07-2025 Lymphocytes Auto (Unsp spec) [#/Vol] 2.43 10*3/uL 0.83-4.51 [facility] Absolute neutrophil countOrd ered By: Ayana Choi on 05-07-2025 Neutrophils (Bld) [#/Vol] 5.3 10*3/uL 2.0-7.7 [facility] Anion gap in Serum or Plasma Ordered By: Ayana Choi on 05-07-2025 Anion gap [Moles/Vol] 9 mmol/L 5-15 [facility] Automated lymphocyte count a s percentage of total leukocytesOrdered By: Isrealvicky Osegueracorrieestefanía on 05-07-2025 Lymphocytes/100 WBC Auto (Unsp spec) 27.8 % 19-41 [facility] BUN/creatinine ratioOrdered By: Clayjesus Choi on 05-07-2025 Urea nitrogen/Creatinine [Mass ratio] 15.0 mg/mg 10-20 [facility] Basophil percentageOrdered B y: Ayana Oumarroseanne on 05-07-2025 Basophils/100 WBC (Bld) 0.7 % 0-1 [facility] Carbon dioxide, total [Moles /volume] in Central venous bloodOrdered By: Clayjesus Choi on 05-07-2025 CO2 [Moles/Vol] 23.1 mmol/L 21.0-32.0 [facility] Chloride assayOrdered By: Clay apolinarmelissa Choi on 05-07-2025 Chloride [Moles/Vol] 109 mmol/L High 98-108 [facility] Eosinophil percentageOrdered By: Isrealvicky Osegueracorrieestefanía on 05-07-2025 Eosinophils/100 WBC (Bld) 4.0 % 0-5 [facility] Erythrocyte distribution wid th ratioOrdered By: Clayapolinarmelissa Oumarcorrieestefanía on 05-07-2025 Erythrocyte distribution width (RBC) [Ratio] 13.3 % 11.6-14.6 [facility] Erythrocyte distribution wid th standard deviationOrdered By: apolinarjoppavicky Osegueracorrieestefanía on 05-07-2025 Erythrocyte distribution width (RBC) [Ratio] 43.1 fl 35.1-43.9 [facility] Glomerular filtration rate ( GFR) estimation/1.73 sq m using serum, plasma, or whole bOrdered By: Clayjesus Choi on 05-07-2025 GFR/1.73 sq M.predicted among non-blacks MDRD (S/P/Bld) [Vol rate/Area] 98 mL/min/{1.73_m2} >60 [facility] Comment on above: mL/min/1.73m2 CKD-EP I Creatinine Equation (2020) Hematocrit Auto (Bld) [Volum e fraction]Ordered By: Ayana Choi on 05-07-2025 Hematocrit (Bld) [Volume fraction] 41.0 % 40-54 [facility] Hemoglobin measurementOrdere d By: Ayana Choi on 05-07-2025 Hemoglobin (Bld) [Mass/Vol] 13.7 g/dL 13.0-16.5 [facility] Immature granulocytes/100 WB C Auto (Bld)Ordered By: Ayana Choi on 05-07-2025 Immature granulocytes/100 WBC (Bld) 0.300 % 0.0-0.9 [facility] Comment on above: IG% - Immature Granu locytes (promyelocytes, myelocytes and metamyelocytes) > 1% indicates that a LEFT SHIFT is Present. MCV (mean corpuscular volume ) determinationOrdered By: Ayana Choi on 05-07-2025 MCV (RBC) [Entitic vol] 89.5 fL 80-94 [facility] Mean corpuscular hemoglobin (MCH) determinationOrdered By: Ayana Choi on 05-07-2025 MCH (RBC) [Entitic mass] 29.9 pg 27.0-32.0 [facility] Mean corpuscular hemoglobin concentration (MCHC) determinationOrdered By: Ayana Choi on 05-07-2025 MCHC (RBC) [Mass/Vol] 33.4 g/dL 32-36 [facility] Mean platelet volume determi nationOrdered By: Ayana Choi on 05-07-2025 Platelet mean volume (Bld) [Entitic vol] 9.7 fL 6.2-12.0 [facility] Monocyte percentageOrdered B y: Ayana Choi on 05-07-2025 Monocytes/100 WBC (Bld) 6.9 % 0-10 [facility] Neutrophil percentageOrdered By: Ayana Choi on 05-07-2025 Neutrophils/100 WBC (Bld) 60.3 % 47-70 [facility] Nucleated red blood cell per centageOrdered By: Ayana Choi on 05-07-2025 Nucleated RBC/100 WBC (Bld) [Ratio] 0 % 0-5 [facility] Platelet countOrdered By: Clay Choi on 05-07-2025 Platelets (Bld) [#/Vol] 309 10*3/uL 150-450 [facility] Potassium measurement (mass/ volume)Ordered By: Ayana Choi on 05-07-2025 Potassium (Unsp spec) [Mass/Vol] 3.8 mmol/L 3.3-5.1 [facility] RBC Auto (Bld) [#/Vol]Ordere d By: Ayana Choi on 05-07-2025 RBC (Bld) [#/Vol] 4.58 10*6/uL Low 4.6-6.2 [facility] Serum creatinine measurement (mass/volume)Ordered By: Marcellbartvicky Osegueracorrieestefanía on 05-07-2025 Creatinine [Mass/Vol] 0.70 mg/dL 0.70-1.20 [facility] Serum glucose measurement (m ass/volume)Ordered By: Ayana Osegueracorrieestefanía on 05-07-2025 Glucose [Mass/Vol] 96 mg/dL 70-99 [facility] Serum or plasma calcium zoe urement (mass/volume)Ordered By: Ayana Osegueracorrieestefanía on 05-07-2025 Calcium [Mass/Vol] 8.9 mg/dL 7.6-11.0 [facility] Serum or plasma urea nitroge n measurement (mass/volume)Ordered By: Ayana Osegueracorrieestefanía on 05-07-2025 Urea nitrogen [Mass/Vol] 11 mg/dL 4-19 [facility] Sodium levelOrdered By: Marcell torres Oumarcorrieestefanía on 05-07-2025 Sodium [Moles/Vol] 142 mmol/L 133-145 [facility] White blood cell (WBC) count Ordered By: Ayana Osegueracorrieestefanía on 05-07-2025 WBC (Bld) [#/Vol] 8.7 10*3/uL 4.4-11.0 [facility] Absolute lymphocyte countOrd ered By: Marcellbartvicky Osegueracorrieestefanía on 05-02-2025 Lymphocytes Auto (Unsp spec) [#/Vol] 2.67 10*3/uL 0.83-4.51 [facility] Absolute neutrophil countOrd ered By: Clayapolinarbartvicky Osegueracorrieestefanía on 05-02-2025 Neutrophils (Bld) [#/Vol] 6.1 10*3/uL 2.0-7.7 [facility] Anion gap in Serum or Plasma Ordered By: Clayjesus Osegueracorrieestefanía on 05-02-2025 Anion gap [Moles/Vol] 12 mmol/L 5-15 [facility] Automated lymphocyte count a s percentage of total leukocytesOrdered By: Ayana Choi on 05-02-2025 Lymphocytes/100 WBC Auto (Unsp spec) 26.5 % 19-41 [facility] BUN/creatinine ratioOrdered By: Ayana Choi on 05-02-2025 Urea nitrogen/Creatinine [Mass ratio] 17.2 mg/mg 10-20 [facility] Basophil percentageOrdered B y: Ayana Choi on 05-02-2025 Basophils/100 WBC (Bld) 0.9 % 0-1 [facility] Bilirubin, totalOrdered By: Ayana Choi on 05-02-2025 Bilirubin [Mass/Vol] 0.39 mg/dL 0.00-1.30 [facility] Calculated very low density lipoprotein (VLDL) cholesterol measurementOrdered By: Ayana Choi on 05-02-2025 Calculated very low density lipoprotein (VLDL) cholesterol measurement 31 mg/dL 5-40 [facility] Carbon dioxide, total [Moles /volume] in Central venous bloodOrdered By: Ayana Choi on 05-02-2025 CO2 [Moles/Vol] 20.5 mmol/L Low 21.0-32.0 [facility] Chloride assayOrdered By: Clay Choi on 05-02-2025 Chloride [Moles/Vol] 106 mmol/L 98-108 [facility] Eosinophil percentageOrdered By: Ayana Choi on 05-02-2025 Eosinophils/100 WBC (Bld) 3.4 % 0-5 [facility] Erythrocyte distribution wid th ratioOrdered By: Ayana Choi on 05-02-2025 Erythrocyte distribution width (RBC) [Ratio] 12.9 % 11.6-14.6 [facility] Erythrocyte distribution wid th standard deviationOrdered By: Ayana Choi on 05-02-2025 Erythrocyte distribution width (RBC) [Ratio] 41.0 fl 35.1-43.9 [facility] Glomerular filtration rate ( GFR) estimation/1.73 sq m using serum, plasma, or whole bOrdered By: Ayana Choi on 05-02-2025 GFR/1.73 sq M.predicted among non-blacks MDRD (S/P/Bld) [Vol rate/Area] 99 mL/min/{1.73_m2} >60 [facility] Comment on above: mL/min/1.73m2 CKD-EP I Creatinine Equation (2020) Hematocrit Auto (Bld) [Volum e fraction]Ordered By: Ayana Choi on 05-02-2025 Hematocrit (Bld) [Volume fraction] 44.3 % 40-54 [facility] Hemoglobin A1c percentageOrd ered By: Ayana Choi on 05-02-2025 HbA1c (Bld) [Mass fraction] 6.1 % High <5.7 [facility] Comment on above: Normal < 5.7 % Predi abetic 5.7 - 6.4 % Diabetic >or= 6.5 % Please note range changes. Hemoglobin measurementOrdere d By: Ayana Choi on 05-02-2025 Hemoglobin (Bld) [Mass/Vol] 15.1 g/dL 13.0-16.5 [facility] Immature granulocytes/100 WB C Auto (Bld)Ordered By: Ayana Choi on 05-02-2025 Immature granulocytes/100 WBC (Bld) 0.400 % 0.0-0.9 [facility] Comment on above: IG% - Immature Granu locytes (promyelocytes, myelocytes and metamyelocytes) > 1% indicates that a LEFT SHIFT is Present. LDL calc ser/plasOrdered By: Ayana Choi on 05-02-2025 Cholesterol in LDL [Mass/Vol] 80 mg/dL [facility] Comment on above: Kvfwqdaodm=838-376 m g/dL & Higher Ysnk=775 mg/dL or greater Laboratory - Chemistry and C hemistry - challengeOrdered By: Ayana Choi on 05-02-2025 AST [Catalytic activity/Vol] 59 U/L High <38 [facility] LevetiracetamOrdered By: Leoenl Choi on 05-02-2025 levETIRAcetam [Mass/Vol] 7.2 ug/mL Low 10.0-40.0 [facility] Comment on above: Performed at: [facility] [address] [id number] Director: Chilo Javier MD, Phone: [phone] MCV (mean corpuscular volume ) determinationOrdered By: Ayana Choi on 05-02-2025 MCV (RBC) [Entitic vol] 88.1 fL 80-94 [facility] Mean corpuscular hemoglobin (MCH) determinationOrdered By: Ayana Choi on 05-02-2025 MCH (RBC) [Entitic mass] 30.0 pg 27.0-32.0 [facility] Mean corpuscular hemoglobin concentration (MCHC) determinationOrdered By: Ayana Choi on 05-02-2025 MCHC (RBC) [Mass/Vol] 34.1 g/dL 32-36 [facility] Mean platelet volume determi nationOrdered By: Ayana Choi on 05-02-2025 Platelet mean volume (Bld) [Entitic vol] 10.0 fL 6.2-12.0 [facility] Monocyte percentageOrdered B y: Ayana Choi on 05-02-2025 Monocytes/100 WBC (Bld) 8.5 % 0-10 [facility] Neutrophil percentageOrdered By: Ayana Choi on 05-02-2025 Neutrophils/100 WBC (Bld) 60.3 % 47-70 [facility] Nucleated red blood cell per centageOrdered By: Ayana Choi on 05-02-2025 Nucleated RBC/100 WBC (Bld) [Ratio] 0 % 0-5 [facility] Platelet countOrdered By: Clay Choi on 05-02-2025 Platelets (Bld) [#/Vol] 303 10*3/uL 150-450 [facility] Potassium measurement (mass/ volume)Ordered By: Ayana Choi on 05-02-2025 Potassium (Unsp spec) [Mass/Vol] 3.9 mmol/L 3.3-5.1 [facility] RBC Auto (Bld) [#/Vol]Ordere d By: Ayana Choi on 05-02-2025 RBC (Bld) [#/Vol] 5.03 10*6/uL 4.6-6.2 [facility] Screening total cholesterol/ high density lipoprotein (HDL) cholesterol ratioOrdered By: Ayana Choi on 05-02-2025 Cholesterol.total/Chol esterol in HDL [Mass ratio] 3.03 {ratio} [facility] Serum creatinine measurement (mass/volume)Ordered By: Ayana Choi on 05-02-2025 Creatinine [Mass/Vol] 0.69 mg/dL Low 0.70-1.20 [facility] Serum globulin measurementOr dered By: Ayana Choi on 05-02-2025 Globulin (S) [Mass/Vol] 3.3 g/dL 2.2-4.2 [facility] Serum glucose measurement (m ass/volume)Ordered By: Ayana Choi on 05-02-2025 Glucose [Mass/Vol] 96 mg/dL 70-99 [facility] Serum or plasma alanine peterson otransferase (ALT) measurementOrdered By: Ayana Choi on 05-02-2025 ALT [Catalytic activity/Vol] 64 U/L High <47 [facility] Serum or plasma albumin zoe urement (mass/volume)Ordered By: Ayana Choi on 05-02-2025 Albumin [Mass/Vol] 3.8 g/dL 3.4-4.8 [facility] Serum or plasma albumin/glob ulin mass ratioOrdered By: Ayana Choi on 05-02-2025 Albumin/Globulin [Mass ratio] 1.2 {ratio} 0.9-2.4 [facility] Serum or plasma alkaline ramy sphatase measurementOrdered By: Ayana Choi 05-02-2025 ALP [Catalytic activity/Vol] 86 U/L 40-129 [facility] Serum or plasma calcium zoe urement (mass/volume)Ordered By: Ayana Choi on 05-02-2025 Calcium [Mass/Vol] 9.4 mg/dL 7.6-11.0 [facility] Serum or plasma cholesterol in HDL measurement (mass/volume)Ordered By: Ayana Choi on 05-02-2025 Cholesterol in HDL [Mass/Vol] 55 mg/dL >40 [facility] Comment on above: National Cholesterol Education Program (NCEP) guidelines:<40 mg/dL: Low HDL-cholesterol (major risk factor for CHD)>= 60 mg/dL: High HDL-cholesterol (negative risk factor for CHD)HDL-cholesterol is affected by a number of factors, e.g. smoking, exercise, hormones, sex and age. Serum or plasma cholesterol measurement (mass/volume)Ordered By: Ayana Choi on 05-02-2025 Cholesterol [Mass/Vol] 166 mg/dL <201 [facility] Comment on above: Cholesterol level, D esirable <200 mg/dLBorderline high cholesterol 200-239 mg/dLHigh cholesterol >=240 mg/dLRecommendations of the NCEP Adult Treatment Panel for the following risk-cutoff thresholds for the [place] population. Serum or plasma urea nitroge n measurement (mass/volume)Ordered By: Ayana Choi on 05-02-2025 Urea nitrogen [Mass/Vol] 12 mg/dL 4-19 [facility] Sodium levelOrdered By: Marcell hannaebenezer Steph on 05-02-2025 Sodium [Moles/Vol] 139 mmol/L 133-145 [facility] Total proteinOrdered By: Leonel Choi on 05-02-2025 Protein [Mass/Vol] 7.1 g/dL 5.9-8.4 [facility] Triglycerides measurementOrd ered By: Ayana Choi on 05-02-2025 Triglyceride [Mass/Vol] 156 mg/dL <199 [facility] Comment on above: The drugs N-Acetylcy steine and Metamizole may falsely depress this assay. Normal range: <150 mg/dLBorderline High: 150-199 mg/dLHigh: 200-499 mg/dLVery High: >500 mg/dL White blood cell (WBC) count Ordered By: Ayana Choi on 05-02-2025 WBC (Bld) [#/Vol] 10.1 10*3/uL 4.4-11.0 [facility] Basic metabolic 2000 panelon 05-01-2025 Anion gap [Moles/Vol] 12 mmol/L Normal 8-15 [facility] Comment on above: Order Comment: Speci men Type: BLOOD SPECIMENOrdering Facility: [facility] Address: [address] [place] [address] Performed By: #### 2 4321-2 ####[facility]ATORYCLIA [id number] [place] [address] [place] Calcium [Mass/Vol] 9.1 mg/dL Normal 8.5-10.2 [facility] Comment on above: Order Comment: Speci men Type: BLOOD SPECIMENOrdering Facility: [facility] Address: [address] [place] [address] Performed By: #### 2 4321-2 ####[facility]ATORYCLIA [id number] [place] [address] [place] Chloride [Moles/Vol] 107 mmol/L Normal 98-107 [facility] Comment on above: Order Comment: Speci men Type: BLOOD SPECIMENOrdering Facility: [facility] Address: [address] [place] [address] Performed By: #### 2 4321-2 ####[facility]ATORYCLIA [id number] [place] [address] [place] CO2 [Moles/Vol] 21 mmol/L Low 22-30 [facility] Comment on above: Order Comment: Speci men Type: BLOOD SPECIMENOrdering Facility: [facility] Address: [address] [place] [address] Performed By: #### 2 4321-2 ####[facility]ORYCLIA [id number] [place] [address] [place] Creatinine [Mass/Vol] 0.69 mg/dL Low 0.73-1.22 [facility] Comment on above: Order Comment: Speci men Type: BLOOD SPECIMENOrdering Facility: [facility] Address: [address] [place] [address] Performed By: #### 2 4321-2 ####[facility]ORATORYCLIA [id number] [place] [address] [place] eGFRcr SerPlBld CKD-EPI 2020 99 mL/min/1.73m??? Normal >=60 [facility] Comment on above: Order Comment: George saldivar Type: BLOOD SPECIMENOrdering Facility: [facility] Address: [address] [place] [address] Result Comment: Katerine mated Glomerular Filtration Rate [...] actual GFR. Performed By: #### 2 4321-2 ####[facility]ATORYCLIA [id number] [place] [address] [place] Glucose [Mass/Vol] 94 mg/dL Normal 74-99 [facility] Comment on above: Order Comment: George saldivar Type: BLOOD SPECIMENOrdering Facility: [facility] Address: [address] [place] [address] Result Comment: The [place] Diabetes Association (ADA) provides guidance for cutoff [...] Standards of Medical Care in Diabetes 2016, [place] Diabetes Association. Diabetes Care. 2016.39(Suppl 1). Performed By: #### 2 4321-2 ####[facility]ATORYCLIA [id number] [place] [id number] [place] Potassium [Moles/Vol] 3.6 mmol/L Low 3.7-5.1 [facility] Comment on above: Order Comment: Speci men Type: BLOOD SPECIMENOrdering Facility: [facility] Address: [address] [place] [address] Performed By: #### 2 4321-2 ####[facility]ATORYCLIA [id number] [address] Sodium [Moles/Vol] 140 mmol/L Normal 136-144 [facility] Comment on above: Order Comment: Speci men Type: BLOOD SPECIMENOrdering Facility: [facility] Address: [address] [place] [address] Performed By: #### 2 4321-2 ####[facility]ORYCLIA [id number] [address] STATES [facility] Urea nitrogen [Mass/Vol] 20 mg/dL Normal 9-24 [facility] Comment on above: Order Comment: Speci men Type: BLOOD SPECIMENOrdering Facility: [facility] Address: [address] [place] [address] Performed By: #### 2 4321-2 ####[facility]ATORYCLIA [id number] [address] CBC panel Auto (Bld)on 05-01 Erythrocyte distribution width (RBC) [Ratio] 12.3 % Normal 11.5-15.0 [facility] Comment on above: Order Comment: Speci men Type: BLOOD SPECIMENOrdering Facility: [facility] Address: [address] [place] [address] Performed By: #### 5 8410-2 ####[facility]ATORYCLIA [id number] [address] Hematocrit (Bld) [Volume fraction] 43.6 % Normal 39.0-51.0 [facility] Comment on above: Order Comment: Speci men Type: BLOOD SPECIMENOrdering Facility: [facility] Address: [address] [place] [address] Performed By: #### 5 8410-2 ####[facility]ORYCLIA [id number] [address] Hemoglobin (Bld) [Mass/Vol] 14.6 g/dL Normal 13.0-17.0 [facility] Comment on above: Order Comment: Speci men Type: BLOOD SPECIMENOrdering Facility: [facility] Address: [address] [place] [address] Performed By: #### 5 8410-2 ####[facility]ORYCLIA [id number] [address] STATES [facility] MCH (RBC) [Entitic mass] 30.1 pg Normal 26.0-34.0 [facility] Comment on above: Order Comment: Speci men Type: BLOOD SPECIMENOrdering Facility: [facility] Address: [address] [place] [address] Performed By: #### 5 8410-2 ####[facility]ORYCLIA [id number] [address] MCHC (RBC) [Mass/Vol] 33.5 g/dL Normal 30.5-36.0 [facility] Comment on above: Order Comment: Speci men Type: BLOOD SPECIMENOrdering Facility: [facility] Address: [address] [place] [address] Performed By: #### 5 8410-2 ####[facility]ORYCLIA [id number] [address] MCV (RBC) [Entitic vol] 89.9 fL Normal 80.0-100.0 [facility] Comment on above: Order Comment: Speci men Type: BLOOD SPECIMENOrdering Facility: [facility] Address: [address] [place] [address] Performed By: #### 5 8410-2 ####[facility]ORYCLIA [id number] [address] Nucleated RBC (Bld) [#/Vol] 10*3/uL Normal <0.01 [facility] Comment on above: Order Comment: Speci men Type: BLOOD SPECIMENOrdering Facility: [facility] Address: [address] [place] [address] Performed By: #### 5 8410-2 ####[facility]ORYCLIA [id number] [place] [address] [place] Platelet mean volume (Bld) [Entitic vol] 9.8 fL Normal 9.0-12.7 [facility] Comment on above: Order Comment: Speci men Type: BLOOD SPECIMENOrdering Facility: [facility] Address: [address] [place] [address] Performed By: #### 5 8410-2 ####[facility]ORYCLIA [id number] [place] [address] [place] Platelets (Bld) [#/Vol] 281 10*3/uL Normal 150-400 [facility] Comment on above: Order Comment: Speci men Type: BLOOD SPECIMENOrdering Facility: [facility] Address: [address] [place] [address] Performed By: #### 5 8410-2 ####[facility]ORYCLIA [id number] [place] [address] [place] RBC (Bld) [#/Vol] 4.85 10*6/uL Normal 4.20-6.00 [facility] Comment on above: Order Comment: Speci men Type: BLOOD SPECIMENOrdering Facility: [facility] Address: [address] [place] [address] Performed By: #### 5 8410-2 ####[facility]ORYCLIA [id number] [place] [address] [place] WBC (Bld) [#/Vol] 9.34 10*3/uL Normal 3.70-11.00 [facility] Comment on above: Order Comment: Speci men Type: BLOOD SPECIMENOrdering Facility: [facility] Address: [address] [place] [address] Performed By: #### 5 8410-2 ####[facility]ATORYCLIA [id number] [address] [place] CNDSon 05-01-2025 CNDS HNO ID: [id number] Author: ERIKA MILTON MD Service: General Surgery Author Type: Physician Type: Discharge Summary Filed: 05/01/2025 21:35 Note Text: DISCHARGE SUMMARY PATIENT NAME: Patricio Padron Code Status: Full Code Highest Readmission Risk Score: 11 The 30 day readmissions risk score is derived from an internally validated risk model which evaluates patient level characteristics, utilization history, medication orders and lab results up until the day of discharge. Patients with a score of 39 or above are considered highest risk for readmission. Specific patient level drivers will be listed at the bottom of the summary. Admission Information Admission Information ADMIT DATE: 04/24/2025 DISCHARGE DATE: 05/01/2025 MY DOCTORS AND MEDICAL TEAM: My Main Hospital Doctor: Erika Milton MD Primary Care Provider: Yanet Adams MD My Medical Team Members: Treatment Team: Attending Provider: Erika Milton MD MY CONDITION AT DISCHARGE: Stable REASON I WAS IN THE HOSPITAL: Evaluation and treatment of injuries sustained following a fall SUMMARY OF WHAT HAPPENED WHILE I WAS IN THE HOSPITAL: Patricio Padron is a 70-year old male who presented to [place] ED on 04/24/25 following an unwitnessed fall. Patient was amnestic to the event. +Head strike, unknown loss of consciousness. No anticoagulants or antiplatelets. Imaging obtained and showed: 1. Small right temporal subdural hematoma with minimal extension superiorly above the temporal region He also presented to the ED with a 2.5 cm laceration above his right eyebrow. This was repaired with dermabond prior to transfer to [facility] for further management. Neurosurgery was consulted for patient's subdural hematoma. Repeat imaging would show stable appearance of his head bleed. They recommended non-operative management and prophylactic Keppra x 7 days. Given this was an unwitnessed fall and the patient was unable to recall moments leading up to the fall, he underwent a syncopal work-up which included an ECHO, US of his bilateral carotids, and orthostatic vital signs, all of which were negative. Patient presented to the ED with a productive cough and leukocytosis. His chest imaging was negative for an acute process, however, he was treated with Azithromycin and Ceftriaxone for presumed community acquired pneumonia. His symptoms and leukocytosis improved. PT/OT evaluated the patient and recommended SNF placement. On 05/01, patient was evaluated by trauma surgery and deemed medically stable to discharge to SNF. Patient is to follow-up with neurosurgery in 2 weeks with repeat imaging. He is also to follow-up with his PCP in 1-2 weeks. OTHER PROBLEMS/DIAGNOSIS: Principal Problem: SDH (subdural hematoma) (HCC) Active Problems: Nicotine use disorder, F17.2 Community acquired pneumonia Leukocytosis Fall Resolved Problems: * No resolved hospital problems. * OPERATIONS PERFORMED WHILE IN THE HOSPITAL: None IMPORTANT TEST/PROCEDURES: No procedures performed TEST RESULTS NOT AVAILABLE AT THIS TIME: No pending results Discharge Disposition Discharge Disposition: [facility] Facility - Less than 30 Days Activity When You Leave the Hospital Limited to: No heavy lifting (>10 pounds) or strenuous exercise until cleared by neurosurgery May bathe and shower No driving for: Until cleared by neurosurgery No prolonged bedrest, longer than 8 hours in a 24 hour period Diet Instructions Avoid Alcohol Drink 6 to 8 glasses of fluids per day Resume your pre-hospital diet For Pain When You Leave the Hospital Apply a covered cold pack to the area If you become constipated, you may use any fuqw-ajq-pajfmhj treatment such as Milk of Magnesia, Sennakot, Prune Juice, Suppositories, etc. in addition to the stool softener/fiber supplement Use acetaminophen (Tylenol) as recommended on the bottle Wound/Surgical Site Care Apply ice packs as needed Leave open to air Some bleeding from the wound/surgical site can be expected. If excessive, see a doctor at once Wash your hands frequently, especially before touching your incision, after using restroom and before eating Call Your Doctor If There is an unusual odor from the wound area You have a severe headache You have difficulty urinating or pain when urinating You have lightheadedness, fainting, or confusion You have pain and swelling in your legs, especially if it is only on one side and not the other You have pain with urination, cloudy urine or foul smelling urine You have persistent nausea/vomiting over 24 hours You have persistent or heavy bleeding You have redness, swelling, pus or drainage from the wound You have swollen glands or cold and clammy skin Your temperature is greater than 101F Follow Up Appointments Follow-up Appointment Please obtain imaging prior to outpatient appointment When: In 3 weeks Patient/Parents to call f (more content not included)... 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 Adjusted supplements. New weight was obtained, weight loss noted. Plan of Care: Supplements: Ensure Plus High Protein Nursing Admission Assessment Malnutrition Score: 0 Nutrition Intake: Diet Orders (From admission, onward) Start Ordered 04/27/25 1330 DIET SUPPLEMENTS START NOW Question Answer Comment Supplement 1 ENSURE MAX CHOCOLATE Supplement 1 Frequency THREE TIMES/DAY WITH MEALS 04/27/25 1329 04/24/25 1815 DIET FOOD CONSISTENCY CONTROLLED START NOW Question: Food Consistency Answer: SOFT AND BITE-SIZED (L6) 04/24/25 181 Average intake over: Unable to determine Average Supplement Intake (kcal): 300 kcal Average Supplement Intake (gm): 60 gm Average supplement intake over: (since 04/27/2025) Appetite: Good (Po intake 50-100%, skips lunch on most days, eating enough with supplements) GI Symptoms: None, on L6 consistency diet-tolerating well. Anthropometrics: Body mass index is 23.7 kg/m?. Usual Weight: 68 kg (150 lb) (unable to recall weight over the past year) Weight Change: Decreased, admission weight might not be accurate MNT Billing: $ Routine Care : 1 unit Time Spent (mins): 6 SIGNATURE: Cher Jacobo DTR PATIENT NAME: Patricio Padron DATE: May 01, 2025 TIME: 2:30 PM Normal [facility] 25(OH)D3 [facility]-m[facility]on 2024 25-hydroxyvitamin D3 [Mass/Vol] 34.9 ng/mL Normal >=30.0 [facility] Comment on above: Order Comment: Speci men Type: BLOOD SPECIMENOrdering Facility: [facility] Address: [address] [place] [address] Result Comment: Clas sification of 25 [place] Vitamin D status: Deficiency: <= 20.0 ng/ml. Insufficiency: 21.0-29.0 ng/ml. Sufficiency: >= 30.0 ng/ml. Performed By: #### 1 989-3 ####[facility]ATORYCLIA [id number] [address] [place] Basic metabolic 2000 panelon 04-30-2025 Anion gap [Moles/Vol] 11 mmol/L Normal 8-15 [facility] Comment on above: Order Comment: Speci men Type: BLOOD SPECIMENOrdering Facility: [facility] Address: [address] [place] [address] Performed By: #### 2 4321-2 ####[facility]ORYCLIA [id number] [address] STATES OF [facility] Calcium [Mass/Vol] 8.6 mg/dL Normal 8.5-10.2 [facility] Comment on above: Order Comment: Speci men Type: BLOOD SPECIMENOrdering Facility: [facility] Address: [address] [place] [address] Performed By: #### 2 4321-2 ####[facility]ORYCLIA [id number] [address] [place] Chloride [Moles/Vol] 107 mmol/L Normal 98-107 [facility] Comment on above: Order Comment: Speci men Type: BLOOD SPECIMENOrdering Facility: [facility] Address: [address] [place] [address] Performed By: #### 2 4321-2 ####[facility]ORYCLIA [id number] [address] [place] CO2 [Moles/Vol] 22 mmol/L Normal 22-30 [facility] Comment on above: Order Comment: Speci men Type: BLOOD SPECIMENOrdering Facility: [facility] Address: [address] [place] [address] Performed By: #### 2 4321-2 ####[facility]ORYCLIA [id number] [place] [address] [place] Creatinine [Mass/Vol] 0.57 mg/dL Low 0.73-1.22 [facility] Comment on above: Order Comment: Aarontyrone saldivar Type: BLOOD SPECIMENOrdering Facility: [facility] Address: [address] [place] [address] Performed By: #### 2 4321-2 ####[facility]ATORYCLIA [id number] [address] [place] Creatinine and Glomerular filtration rate.predicted panel (S/P/Bld) 105 mL/min/1.73m??? Normal >=60 [facility] Comment on above: Order Comment: Aarontyrone saldivar Type: BLOOD SPECIMENOrdering Facility: [facility] Address: [address] [place] [address] Result Comment: Katerine mated Glomerular Filtration Rate [...] actual GFR. Performed By: #### 2 4321-2 ####[facility]ATORYCLIA [id number] [place] [address] [place] Glucose [Mass/Vol] 106 mg/dL High 74-99 [facility] Comment on above: Order Comment: George saldivar Type: BLOOD SPECIMENOrdering Facility: [facility] Address: [address] [place] [address] Result Comment: The [place] Diabetes Association (ADA) provides guidance for cutoff [...] Standards of Medical Care in Diabetes 2016, [place] Diabetes Association. Diabetes Care. 2016.39(Suppl 1). Performed By: #### 2 4321-2 ####[facility]ATORYCLIA [id number] [place] [address] [place] Potassium [Moles/Vol] 3.8 mmol/L Normal 3.7-5.1 [facility] Comment on above: Order Comment: Speci men Type: BLOOD SPECIMENOrdering Facility: [facility] Address: [address] [place] [address] Performed By: #### 2 4321-2 ####[facility]ATORYCLIA [id number] [place] [address] [place] Sodium [Moles/Vol] 140 mmol/L Normal 136-144 [facility] Comment on above: Order Comment: Speci men Type: BLOOD SPECIMENOrdering Facility: [facility] Address: [address] [place] [address] Performed By: #### 2 4321-2 ####[facility]ATORYCLIA [id number] [address] [place] Urea nitrogen [Mass/Vol] 13 mg/dL Normal 9-24 [facility] Comment on above: Order Comment: Speci men Type: BLOOD SPECIMENOrdering Facility: [facility] Address: [address] [place] [address] Performed By: #### 2 4321-2 ####[facility]ATORYCLIA [id number] [address] [place] CBC panel Auto (Bld)on 04-30 Erythrocyte distribution width (RBC) [Ratio] 12.6 % Normal 11.5-15.0 [facility] Comment on above: Order Comment: Speci men Type: BLOOD SPECIMENOrdering Facility: [facility] Address: [address] [place] [address] Performed By: #### 5 8410-2 ####[facility]ORYCLIA [id number] [address] [place] Hematocrit (Bld) [Volume fraction] 44.1 % Normal 39.0-51.0 [facility] Comment on above: Order Comment: Speci men Type: BLOOD SPECIMENOrdering Facility: [facility] Address: [address] [place] [address] Performed By: #### 5 8410-2 ####[facility]ATORYCLIA [id number] [address] Hemoglobin (Bld) [Mass/Vol] 14.6 g/dL Normal 13.0-17.0 [facility] Comment on above: Order Comment: Speci men Type: BLOOD SPECIMENOrdering Facility: [facility] Address: [address] [place] [address] Performed By: #### 5 8410-2 ####[facility]ATORYCLIA [id number] [address] OF [facility] MCH (RBC) [Entitic mass] 30.4 pg Normal 26.0-34.0 [facility] Comment on above: Order Comment: Speci men Type: BLOOD SPECIMENOrdering Facility: [facility] Address: [address] [place] [address] Performed By: #### 5 8410-2 ####[facility]ORYCLIA [id number] [address] STATES [facility] MCHC (RBC) [Mass/Vol] 33.1 g/dL Normal 30.5-36.0 [facility] Comment on above: Order Comment: Speci men Type: BLOOD SPECIMENOrdering Facility: [facility] Address: [address] [place] [address] Performed By: #### 5 8410-2 ####[facility]ORYCLIA [id number] [address] [place] MCV (RBC) [Entitic vol] 91.9 fL Normal 80.0-100.0 [facility] Comment on above: Order Comment: Speci men Type: BLOOD SPECIMENOrdering Facility: [facility] Address: [address] [place] [address] Performed By: #### 5 8410-2 ####[facility]ATORYCLIA [id number] [address] Nucleated RBC (Bld) [#/Vol] 10*3/uL Normal <0.01 [facility] Comment on above: Order Comment: Speci men Type: BLOOD SPECIMENOrdering Facility: [facility] Address: [address] [place] [address] Performed By: #### 5 8410-2 ####[facility]ATORYCLIA [id number] [place] [address] [place] Platelet mean volume (Bld) [Entitic vol] 9.2 fL Normal 9.0-12.7 [facility] Comment on above: Order Comment: Speci men Type: BLOOD SPECIMENOrdering Facility: [facility] Address: [address] [place] [address] Performed By: #### 5 8410-2 ####[facility]ATORYCLIA [id number] [place] [address] [place] Platelets (Bld) [#/Vol] 254 10*3/uL Normal 150-400 [facility] Comment on above: Order Comment: Speci men Type: BLOOD SPECIMENOrdering Facility: [facility] Address: [address] [place] [address] Performed By: #### 5 8410-2 ####[facility]ORYCLIA [id number] [place] [address] [place] RBC (Bld) [#/Vol] 4.80 10*6/uL Normal 4.20-6.00 [facility] Comment on above: Order Comment: Speci men Type: BLOOD SPECIMENOrdering Facility: [facility] Address: [address] [place] [address] Performed By: #### 5 8410-2 ####[facility]ORYCLIA [id number] [place] [address] [place] WBC (Bld) [#/Vol] 9.57 10*3/uL Normal 3.70-11.00 [facility] Comment on above: Order Comment: Speci men Type: BLOOD SPECIMENOrdering Facility: [facility] Address: [address] [place] [address] Performed By: #### 5 8410-2 ####[facility]ATORYCLIA [id number] [place] [address] [facility] NURSING PROGon 04-30-2025 NURSING PROG HNO ID: [id number] Author: ABDI GERARD, RN Service: Nursing Author Type: Registered Nurse Type: Nursing Progress Note Filed: 04/30/2025 05:26 Note Text: - 0435 noted pt is having increased nonproductive cough this AM with faint but audible wheezes. Pt denies feeling short of breath, but does show O2 saturation decreased from 95% to 91-92% on room air. Paged #[phone] and relayed this to Dr Pena of trauma team with request for albuterol treatment or inhaler for acute wheezing. - 0430 MD to bedside. No orders placed. Normal [facility] THERAPY NTon 04-30-2025 THERAPY NT HNO ID: [id number] Author: MELANIE CHESTER, PT Service: Physical Therapy Author Type: Physical Therapist Type: Therapy (PT/OT/Speech/Resp) Filed: 04/30/2025 16:02 Note Text: Physical Therapy Treatment Summary SERVICE DATE: 04/30/2025 SERVICE TIME: 1437 to 1454 ROOM: [place] [address] PT 6 Clicks Score: 13 DISCHARGE RECOMMENDATIONS Subacute/SNF Recommended Discharge Disposition Comments: patient far below baseline of ambulatory at [facility] with supervision Recommended Discharge Disposition Due to: Functional deficits requiring ongoing therapy service prior to discharge home., Patient requires daily (5x/week) skilled therapy at next level of care. ASSESSMENT Response to Therapy Interventions: Good Participation in Activities Patient tolerated therapy well but is continuing to require assistance with all mobility. Patient is still functioning below baseline, continue to recommend SNF. PRECAUTIONS Fall Risk, Bed/Chair Alarm, Impulsive with Activity CURRENT HOSPITAL COURSE Pt transferred from [place] following GLF. Per pt's spouse he was getting out of bed at night to go use the restroom when he fell. CT showed R SDH. Pt initially managed in ICU, now stable for RNF Relevant Past Medical History: dementia HOME LIVING Patient Lives With: Spouse Assistance Available: 24-Hour Entry To Home: Stairs, Without Rail Number Of Stairs Into Home: 2 Number Of Stairs To Bed/Bath: 0 Tub/Shower Type: walk in shower Laundry: main floor Equipment Owned: Cane, Walker- Wheeled, Shower Chair, Grab Bars- Shower, Commode- Raised, Rollator PRIOR FUNCTIONAL LEVEL Required Assistance, History of Falls Assistance Required With: Cleaning, Laundry, Self Care, Shopping, Transportation, Safety, Medication Management, Meals Pt unable to provide history, per chart review pt has assist from spouse for ADLs and is dependent for IADLs. Pt has had multiple recent falls. Family recently hired an aid to help once a week to help the pt get used to receiving care from someone else as well SUBJECTIVE Pleasant and agreeable to PT. THERAPY DIAGNOSIS Reduced mobility-other, Muscle Weakness (generalized), Abnormalities of gait and mobility-other, Unsteadiness on feet, General symptoms and signs-other, Difficulty walking-musculoskeletal TREATMENT INTERVENTIONS Therapeutic Exercise (77663), Therapeutic Activity (48282) Therapeutic Exercise (90743) Treatment Minutes: 10 $ Therapeutic Exercise (58041) Billed Units: 1 unit Exercise Ankle Pumps (number of reps): 10 BLE Glut Sets (number of reps): 10 BLE LAQ (number of reps): 10 BLE Hip Abduction (number of reps): 10 BLE Exercise: Hip Adduction 10 BLE, Marches 10 BLE Therapeutic Activity (96122) Treatment Minutes: 7 $ Therapeutic Activity (70261) Billed Units: 0 units Timed Code Treatment (minutes): 17 Skilled Treatment Time (minutes): 17 TRAINING AND EDUCATION PROVIDED Assistive Device Use, Bed Mobility, Benefits of In-Hospital Mobility, Exercise Program, Role of Physical Therapy, Sitting Balance, Standing Balance, Transfers THERAPEUTIC SKILLS USED Activity Dosing, Cues for Sequencing/Proper Technique for Activity, Cuing Verbal, Cuing Visual, Cuing Tactile, Facilitation of Joint Range of Motion, Movement Facilitation, Muscle Activation Facilitation, Physical Assist FUNCTIONAL STATUS during session in bold, other mobility completed during prior session and may no longer be correct or appropriate to complete. Bed Mobility Supine To Sit: Minimal Assistance Assisted trunk from sidelying up to sitting EOB Sit to Supine: Moderate Assistance Scooting: Moderate Assistance, Additional Information Transfers Sit To Stand: Moderate Assistance Cued to push into bed with hands prior to standing Stand To Sit: Moderate Assistance cues to reach hands back, assist with eccentric control Bed to Chair Gait Moderate Assistance Requires multipe cues for direction and help with walker management, tends to push walker too far out infront of body Gait Device: Wheeled Walker General Deviations/Observations: Vianca decreased, Step length decreased, Flexed trunk posture, Difficulty changing direction/turning, Non-functional gait speed, Improper distancing from assistive device Gait Distance (feet): 3 Stairs GOALS Able to Perform HEP with: Verbal Cues Only (BLE general strengthening) Transfer Supine to/from Sit with: Stand By Assistance Transfer Sit to/from Stand with: Minimal Assistance Ambulate with: Minimal Assistance Distance: 25ft intervals Device: Wheeled Walker Transfer: patient will complete bed to/from chair transfer with CGA Rehab Potential: Fair Progress Toward Goals: Progressing as expected ACUTE CARE TREATMENT PLAN PT Frequency: 4 Times Per Week (2-4) Treatment Interventions: Education, Strengthening, Functional Mobility Training, Balance Training, Neuromuscular Re-education SIGNATURE: HERACLIO Pak (more content not included)... Normal [facility] Basic metabolic 2000 panelon 04-29-2025 Anion gap [Moles/Vol] 13 mmol/L Normal 8-15 [facility] Comment on above: Order Comment: Speci men Type: BLOOD SPECIMENOrdering Facility: [facility] Address: [address] [place] [address] Performed By: #### 2 4321-2 ####[facility]ORYCLIA [id number] [place] [address] [place] Calcium [Mass/Vol] 8.8 mg/dL Normal 8.5-10.2 [facility] Comment on above: Order Comment: Speci men Type: BLOOD SPECIMENOrdering Facility: [facility] Address: [address] [place] [address] Performed By: #### 2 4321-2 ####[facility]ORYCLIA [id number] [place] [address] [place] Chloride [Moles/Vol] 107 mmol/L Normal 98-107 [facility] Comment on above: Order Comment: Speci men Type: BLOOD SPECIMENOrdering Facility: [facility] Address: [address] [place] [address] Performed By: #### 2 4321-2 ####[facility]ORYCLIA [id number] [address] [place] CO2 [Moles/Vol] 20 mmol/L Low 22-30 [facility] Comment on above: Order Comment: Speci men Type: BLOOD SPECIMENOrdering Facility: [facility] Address: [address] [place] [address] Performed By: #### 2 4321-2 ####[facility]ORYCLIA [id number] [place] [address] [place] Creatinine [Mass/Vol] 0.67 mg/dL Low 0.73-1.22 [facility] Comment on above: Order Comment: Speci men Type: BLOOD SPECIMENOrdering Facility: [facility] Address: [address] [place] [address] Performed By: #### 2 4321-2 ####[facility]ORYCLIA [id number] [address] Creatinine and Glomerular filtration rate.predicted panel (S/P/Bld) 100 mL/min/1.73m??? Normal >=60 [facility] Comment on above: Order Comment: Speci men Type: BLOOD SPECIMENOrdering Facility: [facility] Address: [address] [place] [address] Result Comment: Katerine mated Glomerular Filtration Rate [...] actual GFR. Performed By: #### 2 4321-2 ####[facility]ORYCLIA [id number] [address] [place] Glucose [Mass/Vol] 102 mg/dL High 74-99 [facility] Comment on above: Order Comment: Speci men Type: BLOOD SPECIMENOrdering Facility: [facility] Address: [address] [place] [address] Result Comment: The [place] Diabetes Association (ADA) provides guidance for cutoff [...] Standards of Medical Care in Diabetes 2016, [place] [employer]. Diabetes Care. 2016.39(Suppl 1). Performed By: #### 2 4321-2 ####[facility]ORYCLIA [id number] [place] [address] [place] Potassium [Moles/Vol] 4.1 mmol/L Normal 3.7-5.1 [facility] Comment on above: Order Comment: George saldivar Type: BLOOD SPECIMENOrdering Facility: [facility] Address: [address] [place] [address] Performed By: #### 2 4321-2 ####[facility]ORYCLIA [id number] [place] [address] [place] Sodium [Moles/Vol] 140 mmol/L Normal 136-144 [facility] Comment on above: Order Comment: George saldivar Type: BLOOD SPECIMENOrdering Facility: [facility] Address: [address] [place] [address] Performed By: #### 2 4321-2 ####[facility]ORYCLIA [id number] [address] [place] Urea nitrogen [Mass/Vol] 17 mg/dL Normal 9-24 [facility] Comment on above: Order Comment: George saldivar Type: BLOOD SPECIMENOrdering Facility: [facility] Address: [address] [place] [address] Performed By: #### 2 4321-2 ####[facility]ORYCLIA [id number] [address] [place] CBC panel Auto (Bld)on 04-29 Erythrocyte distribution width (RBC) [Ratio] 12.6 % Normal 11.5-15.0 [facility] Comment on above: Order Comment: Speci men Type: BLOOD SPECIMENOrdering Facility: [facility] Address: [address] [place] [address] Performed By: #### 5 8410-2 ####[facility]ORYCLIA [id number] [address] Hematocrit (Bld) [Volume fraction] 45.0 % Normal 39.0-51.0 [facility] Comment on above: Order Comment: Speci men Type: BLOOD SPECIMENOrdering Facility: [facility] Address: [address] [place] [address] Performed By: #### 5 8410-2 ####[facility]ORYCLIA [id number] [address] [place] Hemoglobin (Bld) [Mass/Vol] 14.6 g/dL Normal 13.0-17.0 [facility] Comment on above: Order Comment: Speci men Type: BLOOD SPECIMENOrdering Facility: [facility] Address: [address] [place] [address] Performed By: #### 5 8410-2 ####[facility]ORYCLIA [id number] [address] [place] MCH (RBC) [Entitic mass] 29.9 pg Normal 26.0-34.0 [facility] Comment on above: Order Comment: Speci men Type: BLOOD SPECIMENOrdering Facility: [facility] Address: [address] [place] [address] Performed By: #### 5 8410-2 ####[facility]ORYCLIA [id number] [address] [place] MCHC (RBC) [Mass/Vol] 32.4 g/dL Normal 30.5-36.0 [facility] Comment on above: Order Comment: Speci men Type: BLOOD SPECIMENOrdering Facility: [facility] Address: [address] [place] [address] Performed By: #### 5 8410-2 ####[facility]ORYCLIA [id number] [address] [place] [facility] MCV (RBC) [Entitic vol] 92.0 fL Normal 80.0-100.0 [facility] Comment on above: Order Comment: Speci men Type: BLOOD SPECIMENOrdering Facility: [facility] Address: [address] [place] [address] Performed By: #### 5 8410-2 ####[facility]ORYCLIA [id number] [address] [place] Nucleated RBC (Bld) [#/Vol] 10*3/uL Normal <0.01 [facility] Comment on above: Order Comment: Speci men Type: BLOOD SPECIMENOrdering Facility: [facility] Address: [address] [place] [address] Performed By: #### 5 8410-2 ####[facility]ORYCLIA [id number] [address] Platelet mean volume (Bld) [Entitic vol] 9.4 fL Normal 9.0-12.7 [facility] Comment on above: Order Comment: Speci men Type: BLOOD SPECIMENOrdering Facility: [facility] Address: [address] [place] [address] Performed By: #### 5 8410-2 ####[facility]ORYCLIA [id number] [address] Platelets (Bld) [#/Vol] 250 10*3/uL Normal 150-400 [facility] Comment on above: Order Comment: Speci men Type: BLOOD SPECIMENOrdering Facility: [facility] Address: [address] [place] [address] Performed By: #### 5 8410-2 ####[facility]ORYCLIA [id number] [address] [place] RBC (Bld) [#/Vol] 4.89 10*6/uL Normal 4.20-6.00 [facility] Comment on above: Order Comment: Speci men Type: BLOOD SPECIMENOrdering Facility: [facility] Address: [address] [place], [place] [address] Performed By: #### 5 8410-2 ####[facility]ATORYCLIA [id number] [place] [id number] [facility] WBC (Bld) [#/Vol] 9.90 10*3/uL Normal 3.70-11.00 [facility] Comment on above: Order Comment: Speci men Type: BLOOD SPECIMENOrdering Facility: [facility] Address: [address] [place], [place] [address] Performed By: #### 5 8410-2 ####[facility]ATORYCLIA [id number] [place] [id number] [facility] THERAPY NTon 04-29-2025 THERAPY NT HNO ID: [id number] Author: MELANIE CHESTER PT Service: Physical Therapy Author Type: Physical Therapist Type: Therapy (PT/OT/Speech/Resp) Filed: 04/29/2025 16:16 Note Text: Physical Therapy Treatment Summary SERVICE DATE: 04/29/2025 SERVICE TIME: 1315 to 1340 ROOM: [place] [address] PT 6 Clicks Score: 11 DISCHARGE RECOMMENDATIONS Subacute/SNF Recommended Discharge Disposition Comments: patient far below baseline of ambulatory at [facility] with supervision Recommended Discharge Disposition Due to: Functional deficits requiring ongoing therapy service prior to discharge home., Patient requires daily (5x/week) skilled therapy at next level of care. ASSESSMENT Response to Therapy Interventions: Good Participation in Activities, Cognitive Deficits Goals ongoing. Requiring hands on assist for all mobility. Rec SNF at discharge. PRECAUTIONS Fall Risk, Bed/Chair Alarm, Impulsive with Activity CURRENT HOSPITAL COURSE Pt transferred from [place] following GLF. Per pt's spouse he was getting out of bed at night to go use the restroom when he fell. CT showed R SDH. Pt initially managed in ICU, now stable for RNF Relevant Past Medical History: dementia HOME LIVING Patient Lives With: Spouse Assistance Available: 24-Hour Entry To Home: Stairs, Without Rail Number Of Stairs Into Home: 2 Number Of Stairs To Bed/Bath: 0 Tub/Shower Type: walk in shower Laundry: main floor Equipment Owned: Cane, Walker- Wheeled, Shower Chair, Grab Bars- Shower, Commode- Raised, Rollator PRIOR FUNCTIONAL LEVEL Required Assistance, History of Falls Assistance Required With: Cleaning, Laundry, Self Care, Shopping, Transportation, Safety, Medication Management, Meals Pt unable to provide history, per chart review pt has assist from spouse for ADLs and is dependent for IADLs. Pt has had multiple recent falls. Family recently hired an aid to help once a week to help the pt get used to receiving care from someone else as well SUBJECTIVE Pleasant and agreeable to PT. THERAPY DIAGNOSIS Reduced mobility-other, Muscle Weakness (generalized), Abnormalities of gait and mobility-other, Unsteadiness on feet, General symptoms and signs-other, Difficulty walking-musculoskeletal TREATMENT INTERVENTIONS Therapeutic Activity (03358), Therapeutic Exercise (31286) Therapeutic Exercise (42356) Treatment Minutes: 11 $ Therapeutic Exercise (56134) Billed Units: 1 unit Patient completed general strengthening exercises supine and seated (ankle pump, quad set, gluteal set, heel slide, hip abd/add, straight leg raise, long arc quad, marching, hip adductor squeeze) x 10-12 reps Bilateral lower extremity, with min assist. Handout issued and reviewed with spouse Therapeutic Activity (05123) Treatment Minutes: 14 $ Therapeutic Activity (48892) Billed Units: 1 unit Timed Code Treatment (minutes): 25 Skilled Treatment Time (minutes): 25 TRAINING AND EDUCATION PROVIDED Anatomy and Impact on Deficits, Assistive Device Use, Bed Mobility, Benefits of In-Hospital Mobility, Discharge Planning, Equipment, Expected Functional Level, Falls Prevention, Gait Pattern, Reduction of Deviations, Home Safety, Home Set-up/Modifications, Role of Physical Therapy, Sitting Balance, Transfers, Standing Balance THERAPEUTIC SKILLS USED Activity Dosing, Assessment of Tolerance Including Vitals Response to Activity, Cues for Sequencing/Proper Technique for Activity, Cuing Verbal, Movement Facilitation, Muscle Activation Facilitation, Physical Assist, Postural Alignment Correction FUNCTIONAL STATUS during session in bold, other mobility completed during prior session and may no longer be correct or appropriate to complete. Bed Mobility Supine To Sit: Moderate Assistance, Additional Information Sit to Supine: Moderate Assistance assist for legs and to reposition in bed for comfort Scooting: Moderate Assistance, Additional Information Transfers Sit To Stand: Moderate Assistance, Additional Information cues for hand placement at walker, assist to lift Stand To Sit: Moderate Assistance, Additional Information cues to reach hands back and sit slowly, facilitate sitting at hip Bed to Chair Gait Modified Independent Gait Device: Wheeled Walker General Deviations/Observations: Vianca decreased, Step length decreased, Flexed trunk posture (difficulty advancing RLE vs LLE) Gait Distance (feet): 3 Stairs GOALS Able to Perform HEP with: Verbal Cues Only (BLE general strengthening) Transfer Supine to/from Sit with: Stand By Assistance Transfer Sit to/from Stand with: Minimal Assistance Ambulate with: Minimal Assistance Distance: 25ft intervals Device: Wheeled Walker Transfer: patient will complete bed to/from chair transfer with CGA Rehab Potential: Fair Progress Toward Goals: Progressing as expected ACUTE CARE TREATMENT PLAN PT Frequency: 4 Times Per Week (2-4) Treatment Interventions: Education, Streng (more content not included)... Normal [facility] THERAPY NT HNO ID: [id number] Author: REENA ROBBINS OTR/August[place] Service: Occupational Therapy Author Type: Occupational Therapist Type: Therapy (PT/OT/Speech/Resp) Filed: 04/29/2025 11:08 Note Text: Occupational Therapy Treatment Summary SERVICE DATE: 04/29/2025 SERVICE TIME: 0942 to 1009 ROOM: [place] [address] OT 6 Clicks Score: 14 DISCHARGE RECOMMENDATIONS Subacute/SNF Recommended Discharge Disposition Comments: Pt would benefit from SNF placement prior to return home to maximize functional status, if returning home at d/c would benefit from Home OT, 09/05 assist and physical assistance for all transfers and ADLs Recommended Discharge Disposition Due to: Functional deficits requiring ongoing therapy service prior to discharge home., Patient requires daily (5x/week) skilled therapy at next level of care., ADL impairment, Cognitive deficits new/worsened, Functional status decline, Requires multiple therapy disciplines ASSESSMENT Response to Therapy Interventions: Cognitive Deficits, Good Participation in Activities, Low Activity Tolerance, Needs Frequent Redirection or Reinstruction Patient progressing well towards goals. Today, patient was able to get out of bed, stand multiple times and take steps over to the chair with use of walker. Patient does require additional time throughout due to overall cognition. At this time patient continues to need significant assist for all ADLs and mobility. Patient was able to meet chair transfer goal and plan of care will be updated to reflect his progress. All other goals ongoing. PRECAUTIONS Fall Risk, Bed/Chair Alarm, Impulsive with Activity CURRENT HOSPITAL COURSE Pt transferred from [place] following GLF. Per pt's spouse he was getting out of bed at night to go use the restroom when he fell. CT showed R SDH. Pt initially managed in ICU, now stable for RNF Relevant Past Medical History: dementia HOME LIVING Patient Lives With: Spouse Assistance Available: 24-Hour Entry To Home: Stairs, Without Rail Number Of Stairs Into Home: 2 Number Of Stairs To Bed/Bath: 0 Tub/Shower Type: walk in shower Laundry: main floor Equipment Owned: Cane, Walker- Wheeled, Shower Chair, Grab Bars- Shower, Commode- Raised, Rollator PRIOR FUNCTIONAL LEVEL Required Assistance, History of Falls Assistance Required With: Cleaning, Laundry, Self Care, Shopping, Transportation, Safety, Medication Management, Meals Pt unable to provide history, per chart review pt has assist from spouse for ADLs and is dependent for IADLs. Pt has had multiple recent falls. Family recently hired an aid to help once a week to help the pt get used to receiving care from someone else as well Baseline Cognition: Oriented to self, Oriented to place, Oriented to time, Oriented to situation SUBJECTIVE agreeable to session COGNITION Communication Deficits: Delayed Response Orientation Deficits: Confused, Not oriented to Place, Not oriented to Time, Not oriented to Situation Responsiveness: Alert Follows Commands: 1-step Commands, Cueing Needed Cueing to Follow Commands: Moderate Attention Deficits: Distractible, Divided Memory Deficits: Short Term, Wire Spring Relay Adjuster, Recall of Recent Events, Recall of Medical/Personal History Executive Function Deficits: Safety Awareness, Judgement, Insight to Deficits, Problem Solving THERAPY DIAGNOSIS Reduced mobility-other, Decreased activities of daily living (ADL), Muscle Weakness (generalized), Signs and Symptoms Involving Cognitive Functions and Awareness, Lack of coordination-other, Unsteadiness on feet TREATMENT INTERVENTIONS Therapeutic Activity (75108) Timed Code Treatment (minutes): 27 Skilled Treatment Time (minutes): 27 Therapeutic Activity (82979) Treatment Minutes: 27 $ Therapeutic Activity (30644) Billed Units: 2 units TRAINING AND EDUCATION PROVIDED Bed Mobility, Assistive Device Use, Benefits of In-Hospital Mobility, Cognitive Skills, Cognitive Stimulation Activities, Command Following, Discharge Planning, Disease Specific Education, Functional Mobility Involving ADLs, Role of Occupational Therapy, Safety/Judgment, Sitting Balance to Improve [place] with ADLs/Self-Care, Standing Balance to Improve [place] with ADLs/Self-Care, Transfer - Sit to Stand, Transfer - Bed to Chair THERAPEUTIC SKILLS USED Activity Dosing, Cues for Sequencing/Proper Technique for Activity, Cuing Tactile, Cuing Verbal, Cuing Visual, Physical Assist FUNCTIONAL STATUS Activities of Daily Living Assist Level Additional Information Feeding Minimal Assistance Grooming Minimal Assistance While sitting up in chair facilitated hair washing activity with use of shower cap. Also facilitated hair combing activity. Provided min verbal cues for proper sequence. Bathing Upper Body Moderate Assistance Bathing Lower Body Maximal Assistance Dressing Upper Body Moderate Assistance Dressing Lower Body Maximal Assistance Toileting M (more content not included)... Normal [facility] Basic metabolic 2000 panelon 04-28-2025 Anion gap [Moles/Vol] 11 mmol/L Normal 8-15 [facility] Comment on above: Order Comment: Speci men Type: BLOOD SPECIMENOrdering Facility: [facility] Address: [address] [place] [address] Performed By: #### 2 4321-2 ####[facility]ORATORYCLIA [id number] [place] [address] [place] Calcium [Mass/Vol] 8.9 mg/dL Normal 8.5-10.2 [facility] Comment on above: Order Comment: Speci men Type: BLOOD SPECIMENOrdering Facility: [facility] Address: [address] [place] [address] Performed By: #### 2 4321-2 ####[facility]ORATORYCLIA [id number] [place] [address] [place] Chloride [Moles/Vol] 104 mmol/L Normal 98-107 [facility] Comment on above: Order Comment: Speci men Type: BLOOD SPECIMENOrdering Facility: [facility] Address: [address] [place] [address] Performed By: #### 2 4321-2 ####[facility]ORYCLIA [id number] [place] [address] [place] CO2 [Moles/Vol] 24 mmol/L Normal 22-30 [facility] Comment on above: Order Comment: Speci men Type: BLOOD SPECIMENOrdering Facility: [facility] Address: [address] [place] [address] Performed By: #### 2 4321-2 ####[facility]ITALCLIA [id number] [place] [id number] [place] [facility] Creatinine [Mass/Vol] 0.64 mg/dL Low 0.73-1.22 [facility] Comment on above: Order Comment: Speci men Type: BLOOD SPECIMENOrdering Facility: [facility] Address: [address] [place] [address] Performed By: #### 2 4321-2 ####[facility] LABORATORYIA [id number] [address] Creatinine and Glomerular filtration rate.predicted panel (S/P/Bld) 101 mL/min/1.73m??? Normal >=60 [facility] Comment on above: Order Comment: Speci men Type: BLOOD SPECIMENOrdering Facility: [facility] Address: [address] [place] [address] Result Comment: Katerine mated Glomerular Filtration Rate [...] actual GFR. Performed By: #### 2 4321-2 ####[facility] LABORATORYIA [id number] [address] STATES [facility] Glucose [Mass/Vol] 97 mg/dL Normal 74-99 [facility] Comment on above: Order Comment: Speci men Type: BLOOD SPECIMENOrdering Facility: [facility] Address: [address] [place] [address] Result Comment: The [place] Diabetes Association (ADA) provides guidance for cutoff [...] Standards of Medical Care in Diabetes 2016, [place] [employer]. Diabetes Care. 2016.39(Suppl 1). Performed By: #### 2 4321-2 ####[facility]ATORYCLIA [id number] [address] Potassium [Moles/Vol] 3.7 mmol/L Normal 3.7-5.1 [facility] Comment on above: Order Comment: George saldivar Type: BLOOD SPECIMENOrdering Facility: [facility] Address: [address] [place] [address] Performed By: #### 2 4321-2 ####[facility]ORYCLIA [id number] [address] Sodium [Moles/Vol] 139 mmol/L Normal 136-144 [facility] Comment on above: Order Comment: George saldivar Type: BLOOD SPECIMENOrdering Facility: [facility] Address: [address] [place] [address] Performed By: #### 2 4321-2 ####[facility]ATORYCLIA [id number] [address] Urea nitrogen [Mass/Vol] 13 mg/dL Normal 9-24 [facility] Comment on above: Order Comment: George saldivar Type: BLOOD SPECIMENOrdering Facility: [facility] Address: [address] [place] [address] Performed By: #### 2 4321-2 ####[facility]ORATORYCLIA [id number] [place] [id number] [facility] CASE MANAGEMon 04-28-2025 CASE MANAGEM HNO ID: [id number] Author: ERIKA MILTON MD Service: General Surgery Author Type: Physician Type: Care Mgt Progress Note Filed: 04/29/2025 11:13 Note Text: Trauma Surgery Progress Note SERVICE DATE: 04/28/2025 Trauma Service Pager: For questions or concerns Mon-Fri 6a-5p please page [phone]. After 5pm and on Weekends and Holidays, please page [phone] if in ICU or [phone] if on RNF. SUBJECTIVE: NAEON. Pt without new complaints. Denies chest pain, sob, abd pain, N/V. OBJECTIVE: Vitals: Temp (24hrs), Av.7 ?C (98 ?F), Min:36.3 ?C (97.3 ?F), Max:36.8 ?C (98.2 ?F) BP 145/90 Pulse 92 Temp 36.7 ?C (98.1 ?F) (Axillary) Resp 18 Ht 165.1 cm (5' 5) Wt 64.6 kg (142 lb 6.7 oz) SpO2 97% BMI 23.70 kg/m? O2 Therapy: Room Air IANDO: Date 04/27/25699 - 04/28/25 0659 04/28/25 07 - 04/29/25 0659 Shift 8406-7793 8868-9982 3631-3587 24 Hour Total 2937-0758 3760-7038 8201-6449 24 Hour Total INTAKE PO 960 232 477 3581 PO 720 924 722 3345 Supplements (mL) 240 120 360 IV 50 50 Volume (mL) (cefTRIAXone iv piggyback 2 g in dextrose (iso-osmotic) 50 mL (ROCEPHIN)) 50 50 Shift Total 1010 987 391 6696 OUTPUT Urine 500 867 441 5825 Output ( External Collection Device 04/24/25 1430 [facility]) 500 213 497 0901 # of BMs Stool Incontinence 3 x 3 x Number of BMs 0 x 2 x 2 x Shift Total 500 599 710 1373 Weight (kg) 64.6 64.6 64.6 64.6 64.6 64.6 64.6 64.6 MEDICATIONS: Current Facility-Administered Medications Medication Dose Route Frequency enoxaparin 30 mg injection (LOVENOX) 30 mg SUBCUTANEOUS q 12 HR cefTRIAXone iv piggyback 2 g in dextrose (iso-osmotic) 50 mL (ROCEPHIN) 2 g INTRAVENOUS q 24 H levETIRAcetam 1,000 mg tab(s) (KEPPRA) 1,000 mg ORAL BID haloperidol lactate 5 mg short-acting injection (HALDOL) 5 mg INTRAVENOUS q 6 H PRN oxyCODONE IR 2.5 mg tab(s) (ROXICODONE) 2.5 mg ORAL q 6 H PRN acetaminophen 1,000 mg tab(s) (TYLENOL) 1,000 mg ORAL QID NaCl 0.9% iv flush bag 20 mL INTRAVENOUS PRN pravastatin 40 mg tab(s) (PRAVACHOL) 40 mg ORAL DAILY memantine 5 mg tab(s) (NAMENDA) 5 mg ORAL BID ondansetron 4 mg tab(s) (ZOFRAN) 4 mg ORAL q 6 H PRN Or ondansetron (PF) 4 mg injection (ZOFRAN) 4 mg INTRAVENOUS q 6 H PRN nicotine 14 mg/24 hr 1 patch (NICODERM) 1 patch TRANSDERMAL DAILY And nicotine -- REMOVE patch OTHER DAILY And nicotine - verify patch OTHER q 8 H Labs: Recent Labs 04/28/25 0455 04/27/25 0314 04/26/25 0429 NA 139 138 140 K 3.7 3.7 3.8 CHLOR 104 103 105 CO2 24 23 21* BUN 13 13 13 CREAT 0.64* 0.76 0.72* GLUC 97 110* 125* ANION 11 12 14 CA 8.9 8.8 9.2 MG -- -- 1.9 P -- -- 3.9 WBC 12.44* 14.66* 17.53* HB 14.5 14.9 15.6 HCT 43.9 44.3 46.3 PLT 255 250 250 PHYSICAL EXAM: GENERAL: Alert. No distress. Resting comfortably. NEURO: AANDOx3. No focal neurologic deficits. Sensation grossly intact. HEENT: Normocephalic. Atraumatic. EOMI. LUNGS: Unlabored breathing. Equal excursion bilaterally. CARDIAC: Regular rate. Good perfusion throughout. ABDOMEN: Soft, non-tender, non-distended. No rebound or guarding. EXTREMITIES: MINER. No deformities. SKIN: No obvious jaundice or pallor. ASSESSMENT AND PLAN: Assessment Active Hospital Problems Diagnosis Date Noted SDH (subdural hematoma) (HCC) 04/24/2025 Nicotine use disorder, F17.2 04/25/2025 This is a 70 year old male with with dementia and hyperlipidemia presents as a level 1 transfer from [place] secondary to a ground-level fall with SDH Traumatic Injuries: - SDH Hospital Course: -04/24: GLF with SDH, transferred to [facility] Care Plan: SDH [facility] SDH -DVT prophylaxis restarted 04/27 - Keppra twice daily end 05/01 - pain and nausea prn - progressive mobility Syncopal workup -ECHO and Carotid US WNL, EKG unremarkable -Ordered orthostatic vitals PPX: - DVT: SCDs, LVX Consulted Services: - NSGY - UPHOLSTERY TECHNICIAN - PT/OT Dispo Planning: - PT/OT: rec SNF Assessment and plan d/w Dr. Milton. SIGNATURE: Leyda Moreno DO PATIENT NAME: Patricio Padron DATE: 04/28/2025 TIME: 1:00 PM Pager: see below Trauma Service Pager: For questions or concerns Mon-Fri 6a-5p please page [phone]. After 5pm and on Weekends and Holidays, please page [phone] if in ICU or [phone] if on RNF. Trauma Staff Addendum: PTD #3 GLF Now transferred to surgical floor No acute events or complaints Afebrile no hypoxia or hypotension No tachypnea, lungs CTAB Abdomen is soft, no distension or tympany Traumatic encephalopathy stable, TBI/SDH. Stable CT brain 04/25 Chemoprophylaxis started on 04/27 No clinical neurol changes concerning for progressive ICH after starting chemoppx Syncopal workup: ECHO and carotid duplex WNL. Orthostatics requested by nursing staff. Continued ABX for presumed CAP, day #3 WBC decreased to 12.4 today PT/OT and ST consults Care management assisting with SNF discharge (more content not included)... Normal [facility] CBC panel Auto (Bld)on 04-28 Erythrocyte distribution width (RBC) [Ratio] 12.7 % Normal 11.5-15.0 [facility] Comment on above: Order Comment: Speci men Type: BLOOD SPECIMENOrdering Facility: [facility] Address: [address] [place] [address] Performed By: #### 5 8410-2 ####[facility]ATORYCLIA [id number] [place] [address] [place] Hematocrit (Bld) [Volume fraction] 43.9 % Normal 39.0-51.0 [facility] Comment on above: Order Comment: Speci men Type: BLOOD SPECIMENOrdering Facility: [facility] Address: [address] [place] [address] Performed By: #### 5 8410-2 ####[facility]ORATORYCLIA [id number] [address] STATES OF [facility] Hemoglobin (Bld) [Mass/Vol] 14.5 g/dL Normal 13.0-17.0 [facility] Comment on above: Order Comment: Speci men Type: BLOOD SPECIMENOrdering Facility: [facility] Address: [address] [place] [address] Performed By: #### 5 8410-2 ####[facility]ATORYCLIA [id number] [address] [place] MCH (RBC) [Entitic mass] 30.0 pg Normal 26.0-34.0 [facility] Comment on above: Order Comment: Speci men Type: BLOOD SPECIMENOrdering Facility: [facility] Address: [address] [place] [address] Performed By: #### 5 8410-2 ####[facility]ATORYCLIA [id number] [address] [place] MCHC (RBC) [Mass/Vol] 33.0 g/dL Normal 30.5-36.0 [facility] Comment on above: Order Comment: Speci men Type: BLOOD SPECIMENOrdering Facility: [facility] Address: [address] [place] [address] Performed By: #### 5 8410-2 ####[facility]ATORYCLIA [id number] [address] [place] MCV (RBC) [Entitic vol] 90.7 fL Normal 80.0-100.0 [facility] Comment on above: Order Comment: Speci men Type: BLOOD SPECIMENOrdering Facility: [facility] Address: [address] [place] [address] Performed By: #### 5 8410-2 ####[facility]ATORYCLIA [id number] [place] [address] [place] Nucleated RBC (Bld) [#/Vol] 10*3/uL Normal <0.01 [facility] Comment on above: Order Comment: Speci men Type: BLOOD SPECIMENOrdering Facility: [facility] Address: [address] [place] [address] Performed By: #### 5 8410-2 ####[facility]ATORYCLIA [id number] [address] [place] Platelet mean volume (Bld) [Entitic vol] 10.0 fL Normal 9.0-12.7 [facility] Comment on above: Order Comment: Speci men Type: BLOOD SPECIMENOrdering Facility: [facility] Address: [address] [place] [address] Performed By: #### 5 8410-2 ####[facility]ATORYCLIA [id number] [address] [place] Platelets (Bld) [#/Vol] 255 10*3/uL Normal 150-400 [facility] Comment on above: Order Comment: Speci men Type: BLOOD SPECIMENOrdering Facility: [facility] Address: [address] [place] [address] Performed By: #### 5 8410-2 ####[facility]ATORYCLIA [id number] [place] [address] [place] RBC (Bld) [#/Vol] 4.84 10*6/uL Normal 4.20-6.00 [facility] Comment on above: Order Comment: Speci men Type: BLOOD SPECIMENOrdering Facility: [facility] Address: [address] [place] [address] Performed By: #### 5 8410-2 ####[facility]ATORYCLIA [id number] [address] [place] WBC (Bld) [#/Vol] 12.44 10*3/uL High 3.70-11.00 [facility] Comment on above: Order Comment: Speci men Type: BLOOD SPECIMENOrdering Facility: [facility] Address: [address] [place] [address] Performed By: #### 5 8410-2 ####[facility] LABORATORYCLIA [id number] [place] [address] [place] Basic metabolic 2000 panelon 04-27-2025 Anion gap [Moles/Vol] 12 mmol/L Normal 8-15 [facility] Comment on above: Order Comment: Speci men Type: BLOOD SPECIMENOrdering Facility: [facility] Address: [address] [place] [address] Performed By: #### 2 4321-2 ####[facility]ATORYCLIA [id number] [place] [address] [place] Calcium [Mass/Vol] 8.8 mg/dL Normal 8.5-10.2 [facility] Comment on above: Order Comment: Speci men Type: BLOOD SPECIMENOrdering Facility: [facility] Address: [address] [place] [address] Performed By: #### 2 4321-2 ####[facility]ORYCLIA [id number] [address] [place] Chloride [Moles/Vol] 103 mmol/L Normal 98-107 [facility] Comment on above: Order Comment: Speci men Type: BLOOD SPECIMENOrdering Facility: [facility] Address: [address] [place] [address] Performed By: #### 2 4321-2 ####[facility] LABORATORYCLIA [id number] [place] [address] [place] CO2 [Moles/Vol] 23 mmol/L Normal 22-30 [facility] Comment on above: Order Comment: Speci men Type: BLOOD SPECIMENOrdering Facility: [facility] Address: [address] [place] [address] Performed By: #### 2 4321-2 ####[facility] LABORATORYCLIA [id number] [place] [address] [place] Creatinine [Mass/Vol] 0.76 mg/dL Normal 0.73-1.22 [facility] Comment on above: Order Comment: George janna Type: BLOOD SPECIMENOrdering Facility: [facility] Address: [address] [place] [address] Performed By: #### 2 4321-2 ####[facility]ATORYCLIA [id number] [place] [address] [place] Creatinine and Glomerular filtration rate.predicted panel (S/P/Bld) 96 mL/min/1.73m??? Normal >=60 [facility] Comment on above: Order Comment: George janna Type: BLOOD SPECIMENOrdering Facility: [facility] Address: [address] [place] [address] Result Comment: Katerine mated Glomerular Filtration Rate [...] actual GFR. Performed By: #### 2 4321-2 ####[facility]ATORYCLIA [id number] [place] [address] [place] Glucose [Mass/Vol] 110 mg/dL High 74-99 [facility] Comment on above: Order Comment: George janna Type: BLOOD SPECIMENOrdering Facility: [facility] Address: [address] [place] [address] Result Comment: The [place] Diabetes Association (ADA) provides guidance for cutoff [...] Standards of Medical Care in Diabetes 2016, [place] [employer] Association. Diabetes Care. 2016.39(Suppl 1). Performed By: #### 2 4321-2 ####[facility]ATORYCLIA [id number] [place] [address] [place] Potassium [Moles/Vol] 3.7 mmol/L Normal 3.7-5.1 [facility] Comment on above: Order Comment: Speci men Type: BLOOD SPECIMENOrdering Facility: [facility] Address: [address] [place] [address] Performed By: #### 2 4321-2 ####[facility]ATORYCLIA [id number] [place] [address] [place] Sodium [Moles/Vol] 138 mmol/L Normal 136-144 [facility] Comment on above: Order Comment: Speci men Type: BLOOD SPECIMENOrdering Facility: [facility] Address: [address] [place] [address] Performed By: #### 2 4321-2 ####[facility]ATORYCLIA [id number] [address] [place] Urea nitrogen [Mass/Vol] 13 mg/dL Normal 9-24 [facility] Comment on above: Order Comment: Speci men Type: BLOOD SPECIMENOrdering Facility: [facility] Address: [address] [place] [address] Performed By: #### 2 4321-2 ####[facility]ATORYCLIA [id number] [address] [place] CBC panel Auto (Bld)on 04-27 Erythrocyte distribution width (RBC) [Ratio] 12.7 % Normal 11.5-15.0 [facility] Comment on above: Order Comment: Speci men Type: BLOOD SPECIMENOrdering Facility: [facility] Address: [address] [place] [address] Performed By: #### 5 8410-2 ####[facility]ATORYCLIA [id number] [address] [place] Hematocrit (Bld) [Volume fraction] 44.3 % Normal 39.0-51.0 [facility] Comment on above: Order Comment: Speci men Type: BLOOD SPECIMENOrdering Facility: [facility] Address: [address] [place] [address] Performed By: #### 5 8410-2 ####[facility]ATORYCLIA [id number] [address] STATES OF [facility] Hemoglobin (Bld) [Mass/Vol] 14.9 g/dL Normal 13.0-17.0 [facility] Comment on above: Order Comment: Speci men Type: BLOOD SPECIMENOrdering Facility: [facility] Address: [address] [place] [address] Performed By: #### 5 8410-2 ####[facility]ORYCLIA [id number] [address] [place] MCH (RBC) [Entitic mass] 30.2 pg Normal 26.0-34.0 [facility] Comment on above: Order Comment: Speci men Type: BLOOD SPECIMENOrdering Facility: [facility] Address: [address] [place] [address] Performed By: #### 5 8410-2 ####[facility]ATORYCLIA [id number] [address] [place] MCHC (RBC) [Mass/Vol] 33.6 g/dL Normal 30.5-36.0 [facility] Comment on above: Order Comment: Speci men Type: BLOOD SPECIMENOrdering Facility: [facility] Address: [address] [place] [address] Performed By: #### 5 8410-2 ####[facility]ATORYCLIA [id number] [address] [place] MCV (RBC) [Entitic vol] 89.7 fL Normal 80.0-100.0 [facility] Comment on above: Order Comment: Speci men Type: BLOOD SPECIMENOrdering Facility: [facility] Address: [address] [place] [address] Performed By: #### 5 8410-2 ####[facility]ATORYCLIA [id number] [address] [place] Nucleated RBC (Bld) [#/Vol] 10*3/uL Normal <0.01 [facility] Comment on above: Order Comment: Speci men Type: BLOOD SPECIMENOrdering Facility: [facility] Address: [address] [place] [address] Performed By: #### 5 8410-2 ####[facility]ORYCLIA [id number] [place] [address] [place] Platelet mean volume (Bld) [Entitic vol] 9.6 fL Normal 9.0-12.7 [facility] Comment on above: Order Comment: Speci men Type: BLOOD SPECIMENOrdering Facility: [facility] Address: [address] [place] [address] Performed By: #### 5 8410-2 ####[facility]ORYCLIA [id number] [address] [place] Platelets (Bld) [#/Vol] 250 10*3/uL Normal 150-400 [facility] Comment on above: Order Comment: Speci men Type: BLOOD SPECIMENOrdering Facility: [facility] Address: [address] [place] [address] Performed By: #### 5 8410-2 ####[facility]ORYCLIA [id number] [address] [place] RBC (Bld) [#/Vol] 4.94 10*6/uL Normal 4.20-6.00 [facility] Comment on above: Order Comment: Speci men Type: BLOOD SPECIMENOrdering Facility: [facility] Address: [address] [place] [address] Performed By: #### 5 8410-2 ####[facility]ORYCLIA [id number] [address] [place] WBC (Bld) [#/Vol] 14.66 10*3/uL High 3.70-11.00 [facility] Comment on above: Order Comment: Speci men Type: BLOOD SPECIMENOrdering Facility: [facility] Address: [address] [place] [id number] Performed By: #### 5 8410-2 ####[facility]ORATORYIA [id number] [place] [id number] [place] CONSULT PROGon 04-27-2025 CONSULT PROG HNO ID: [id number] Author: ERIKA MILTON MD Service: General Surgery Author Type: Physician Type: Consult Progress Note Filed: 04/27/2025 15:03 Note Text: INPATIENT SICU PROGRESS NOTE SERVICE DATE: 04/27/2025 SERVICE TIME: 7:58 AM Subjective Patient seen in the AM. AANDOx2 without neuro deficits. Mild non-productive cough last night. On RA. Current Facility-Administered Medications Medication Dose Route Frequency NaCl 0.9% iv flush bag 20 mL INTRAVENOUS PRN pravastatin 40 mg tab(s) (PRAVACHOL) 40 mg ORAL DAILY memantine 5 mg tab(s) (NAMENDA) 5 mg ORAL BID ondansetron 4 mg tab(s) (ZOFRAN) 4 mg ORAL q 6 H PRN Or ondansetron (PF) 4 mg injection (ZOFRAN) 4 mg INTRAVENOUS q 6 H PRN sodium chloride 0.9 % (flush) 2-10 mL (BD POSIFLUSH) 2-10 mL INTRAVENOUS DIRECTED PRN And perflutren lipid microspheres 1.1 mg/mL 1.3 mL injection (DEFINITY) 1.3 mL INTRAVENOUS DIRECTED PRN nicotine 14 mg/24 hr 1 patch (NICODERM) 1 patch TRANSDERMAL DAILY And nicotine -- REMOVE patch OTHER DAILY And nicotine - verify patch OTHER q 8 H levETIRAcetam 1,000 mg tab(s) (KEPPRA) 1,000 mg ORAL BID haloperidol lactate 5 mg short-acting injection (HALDOL) 5 mg INTRAVENOUS q 6 H PRN oxyCODONE IR 2.5 mg tab(s) (ROXICODONE) 2.5 mg ORAL q 6 H PRN phosphorus 250 mg tab(s) (K PHOS NEUTRAL) 250 mg ORAL PC and HS acetaminophen 1,000 mg tab(s) (TYLENOL) 1,000 mg ORAL QID cefTRIAXone iv piggyback 2 g in dextrose (iso-osmotic) 50 mL (ROCEPHIN) 2 g INTRAVENOUS q 24 H azithromycin 500 mg tab(s) (ZITHROMAX) 500 mg ORAL DAILY Objective VITAL SIGNS BP 103/72 Pulse 83 Temp (Src) 97.9 (Axillary) Resp 15 Ht 5' 5 (1.65m) Wt 142 lb 6.7 oz (64.6kg) SpO2 93% BMI 23.70 kg/(m2). O2 Therapy: Room Air Temp (24hrs), Av.7 ?C (98 ?F), Min:36.6 ?C (97.9 ?F), Max:36.7 ?C (98.1 ?F) Date 04/26/25699 - 04/27/25 0659 04/27/25 07 - 04/28/25 0659 Shift 9290-2720 4011-5266 0840-3101 24 Hour Total 0647-0787 0743-1279 0240-6951 24 Hour Total INTAKE PO 601 322 8591 PO 767 472 2559 IV 450 450 Volume (mL) (cefTRIAXone iv piggyback 2 g in dextrose (iso-osmotic) 50 mL (ROCEPHIN)) 50 50 Volume (mL) (calcium gluconate iv piggyback 2 g in NaCl (iso-osmotic) 100 mL) 100 100 Volume (mL) (sodium phosphate 30 mmol in D5W 250 mL) 250 250 Volume (mL) (magnesium sulfate iv piggyback in sterile water 2 g 50 mL) 50 50 Shift Total 1327 233 9501 OUTPUT Urine 700 147 067 5672 Output ( External Collection Device 04/24/25 1430 [facility]) 700 586 606 5029 # of BMs Stool Incontinence 1 x 1 x Number of BMs 1 x 0 x 1 x Shift Total 700 865 100 7884 Weight (kg) 64.5 64.5 64.6 64.6 64.6 64.6 64.6 64.6 PHYSICAL EXAM: GENERAL: Alert. No distress. bed with at bedside, resting comfortably. NEURO: AANDOx2. Which is Pt baseline per . Responding appropriately. No focal neurologic deficits. Sensation grossly intact. HEENT: Normocephalic. Atraumatic. Small scalp abrasion. EOMI. LUNGS: Unlabored breathing on RA. Equal excursion bilaterally. CARDIAC: Regular rate. Good perfusion throughout. ABDOMEN: Soft, non-tender, non-distended. No rebound or guarding. EXTREMITIES: MINER. LUE with infiltrated IV, neuro intact and palpable pulses distally SKIN: No obvious jaundice or pallor. DATA: Diagnostic tests reviewed for today's visit: No results for input(s): BODSITE, CTYPE, PH, PCO2, PO2, BE, HCO3, CO2CT, O2HB, COHB, MHGB, TEMP, PHTC, PCO2T, PO2T, O2AD in the last 72 hours. Recent Labs 04/27/25 0314 04/26/25 0429 04/25/25 0224 04/24/25 0809 CREAT 0.76 0.72* 0.67* 0.76 BUN 13 13 7* 7* NA 138 140 143 142 K 3.7 3.8 4.4 4.5 CHLOR 103 105 108* 106 CO2 23 21* 24 21* ANION 12 14 11 15 GLUC 110* 125* 98 112* CA 8.8 9.2 9.1 9.2 P -- 3.9 3.6 -- MG -- 1.9 2.0 -- ALB -- -- -- 3.8* AST -- -- -- 20 ALT -- -- -- 19 ALKPHOS -- -- -- 87 TBILI -- -- -- 0.4 WBC 14.66* 17.53* 11.91* 10.76 HB 14.9 15.6 14.9 15.3 HCT 44.3 46.3 44.3 45.6 PLT 250 250 233 234 Assessment AND Plan ACTIVE PROBLEM LIST Benign Non-Nodular Prostatic Hyperplasia With Lower Urinary Tract Symptoms Bladder Neck Obstruction Rosacea, Acne Pure Hypercholesterolemia S/P Turp Mild Cognitive Impairment Ataxia, Unspecified Personal History of Traumatic Brain Injury History of Subdural Hematoma History of Subarachnoid Hemorrhage Cervical Myelopathy (Hcc) Prediabetes Sdh (Subdural Hematoma) (Hcc) Nicotine use disorder, F17.2 Assessment and Plan: This is a 70 year old male with with dementia and hyperlipidemia presents as a level 1 transfer from [place] secondary to a ground-level fall with SDH Hospital course: 04/24: GLF with SDH, transferred to [facility] Neuro: SDH - Admit to trauma/SICU -Neurosurgery on consult, appreciate recommendation -[facility] #1: unchanged SDH -Holding DVT chemo ppx (restart 04/27) -Q4 NC - Keppra twice daily end (more content not included)... Normal [facility] ALLIED HEALTHon 04-26-2025 ALLIED HEALTH HNO ID: [id number] Author: ZONIA FLOYD RT(R) Service: Radiology Author Type: Technologist Type: Allied Health Filed: 04/26/2025 06:47 Note Text: Radiology Service Progress Note PATIENT NAME: Patricio Padron DATE OF SERVICE: April 26, 2025 TIME: 6:47 AM PATIENT IDENTITY VERIFICATION COMPLETED USING TWO (2) IDENTIFIERS: Name and Date of confirmed by patient verbally and Name and Date of confirmed by identification band. FALL SCREENING: Has the patient had 2 falls in the last year or 1 fall with injury or currently using an Ambulatory Assistive Device (Walker, Cane, Wheelchair, Crutches, etc.)? Inpatient: Screened on floor PATIENT GENDER DATA: Assigned male at PATIENT RELEVANT IMPLANT DATA REVIEWED: Not Applicable PATIENT PRESENTS WITH AN IMPLANTABLE OR ATTACHED PSYCHOPAEDIC NURSE: No RADIOLOGY DEPARTMENT: General X-ray: Exam(s) Completed: Chest X-Ray PERIPHERAL IV DATA: Not applicable SIGNED BY: RT Marimar(R) April 26, 2025 6:47 AM Normal [facility] Bacteria Spec Resp Culton Bacteria identified Respiratory culture Nom (Unsp spec) CULTURE, RESPIRATORY: Moderate Normal respiratory roosevelt present GRAM STAIN: Rare Mixed oral roosevelt No Polymorphonuclear Leukocytes Abnormal [facility] Comment on above: Performed By: #### 3 2355-0 ####[facility]ORATORYCLIA [id number] [place] [address] [place] Basic metabolic 2000 panelon 04-26-2025 Anion gap [Moles/Vol] 14 mmol/L Normal 8-15 [facility] Comment on above: Order Comment: Speci men Type: BLOOD SPECIMENOrdering Facility: [facility] Address: [address] [place] [address] Performed By: #### 2 4321-2, 97801-1, 2777-1 ####[facility]ORATORYCLIA [id number] [place] [address] [place] Calcium [Mass/Vol] 9.2 mg/dL Normal 8.5-10.2 [facility] Comment on above: Order Comment: Speci men Type: BLOOD SPECIMENOrdering Facility: [facility] Address: [address] [place] [address] Performed By: #### 2 4321-2, , 2776-10 ####[facility]ORATORYCLIA [id number] [place] [address] [place] Chloride [Moles/Vol] 105 mmol/L Normal 98-107 [facility] Comment on above: Order Comment: Speci men Type: BLOOD SPECIMENOrdering Facility: [facility] Address: [address] [place] [address] Performed By: #### 2 4321-2, , 2776-10 ####[facility]ORATORYCLIA [id number] [place] [address] [place] CO2 [Moles/Vol] 21 mmol/L Low 22-30 [facility] Comment on above: Order Comment: Speci men Type: BLOOD SPECIMENOrdering Facility: [facility] Address: [address] [place] [address] Performed By: #### 2 4321-2, , 2776-10 ####[facility] LABORATORYCLIA [id number] [place] [address] [place] Creatinine [Mass/Vol] 0.72 mg/dL Low 0.73-1.22 [facility] Comment on above: Order Comment: Speci men Type: BLOOD SPECIMENOrdering Facility: [facility] Address: [address] [place] [address] Performed By: #### 2 4321-2, , 2776-10 ####[facility]ATORYCLIA [id number] [address] [place] Creatinine and Glomerular filtration rate.predicted panel (S/P/Bld) 98 mL/min/1.73m??? Normal >=60 [facility] Comment on above: Order Comment: Speci men Type: BLOOD SPECIMENOrdering Facility: [facility] Address: [address] [place] [address] Result Comment: Katerine mated Glomerular Filtration Rate [...] reflect actual GFR. Performed By: #### 2 4321-2, , 2776-10 ####[facility]ORYCLIA [id number] [place] [address] [place] Glucose [Mass/Vol] 125 mg/dL High 74-99 [facility] Comment on above: Order Comment: George saldivar Type: BLOOD SPECIMENOrdering Facility: [facility] Address: [address] [place] [address] Result Comment: The [place] Diabetes Association (ADA) provides guidance for cutoff [...] Standards of Medical Care in Diabetes 2016, [place] Diabetes Association. Diabetes Care. 2016.39(Suppl 1). Performed By: #### 2 4321-2, , 2776-10 ####[facility]ATORYCLIA [id number] [place] [address] [place] Potassium [Moles/Vol] 3.8 mmol/L Normal 3.7-5.1 [facility] Comment on above: Order Comment: George saldivar Type: BLOOD SPECIMENOrdering Facility: [facility] Address: [address] [place] [address] Performed By: #### 2 4321-2, , 2776-10 ####[facility]ORYCLIA [id number] [address] STATES [place] Sodium [Moles/Vol] 140 mmol/L Normal 136-144 [facility] Comment on above: Order Comment: Speci men Type: BLOOD SPECIMENOrdering Facility: [facility] Address: [address] [place] [address] Performed By: #### 2 4321-2, 57262-0, 2777-1 ####[facility]ORYCLIA [id number] [address] [place] Urea nitrogen [Mass/Vol] 13 mg/dL Normal 9-24 [facility] Comment on above: Order Comment: Speci men Type: BLOOD SPECIMENOrdering Facility: [facility] Address: [address] [place] [address] Performed By: #### 2 4321-2, , 2777-1 ####[facility]ORYCLIA [id number] [address] STATES OF [facility] CBC panel Auto (Bld)on 04-26 Erythrocyte distribution width (RBC) [Ratio] 12.7 % Normal 11.5-15.0 [facility] Comment on above: Order Comment: Speci men Type: BLOOD SPECIMENOrdering Facility: [facility] Address: [address] [place] [address] Performed By: #### 5 8410-2 ####[facility]ORYCLIA [id number] [address] [place] Hematocrit (Bld) [Volume fraction] 46.3 % Normal 39.0-51.0 [facility] Comment on above: Order Comment: Speci men Type: BLOOD SPECIMENOrdering Facility: [facility] Address: [address] [place] [address] Performed By: #### 5 8410-2 ####[facility]ORYCLIA [id number] [address] [place] Hemoglobin (Bld) [Mass/Vol] 15.6 g/dL Normal 13.0-17.0 [facility] Comment on above: Order Comment: Speci men Type: BLOOD SPECIMENOrdering Facility: [facility] Address: [address] [place] [address] Performed By: #### 5 8410-2 ####[facility]ORYCLIA [id number] [address] MCH (RBC) [Entitic mass] 30.0 pg Normal 26.0-34.0 [facility] Comment on above: Order Comment: Speci men Type: BLOOD SPECIMENOrdering Facility: [facility] Address: [address] [place] [address] Performed By: #### 5 8410-2 ####[facility]ORYCLIA [id number] [address] MCHC (RBC) [Mass/Vol] 33.7 g/dL Normal 30.5-36.0 [facility] Comment on above: Order Comment: Speci men Type: BLOOD SPECIMENOrdering Facility: [facility] Address: [address] [place] [address] Performed By: #### 5 8410-2 ####[facility]ORYCLIA [id number] [address] MCV (RBC) [Entitic vol] 89.0 fL Normal 80.0-100.0 [facility] Comment on above: Order Comment: Speci men Type: BLOOD SPECIMENOrdering Facility: [facility] Address: [address] [place] [address] Performed By: #### 5 8410-2 ####[facility]ORYCLIA [id number] [address] Nucleated RBC (Bld) [#/Vol] 10*3/uL Normal <0.01 [facility] Comment on above: Order Comment: Speci men Type: BLOOD SPECIMENOrdering Facility: [facility] Address: [address] [place] [address] Performed By: #### 5 8410-2 ####[facility]ORYCLIA [id number] [address] STATES OF [facility] Platelet mean volume (Bld) [Entitic vol] 9.6 fL Normal 9.0-12.7 [facility] Comment on above: Order Comment: Speci men Type: BLOOD SPECIMENOrdering Facility: [facility] Address: [address] [place] [address] Performed By: #### 5 8410-2 ####[facility]ORYCLIA [id number] [address] [place] Platelets (Bld) [#/Vol] 250 10*3/uL Normal 150-400 [facility] Comment on above: Order Comment: Speci men Type: BLOOD SPECIMENOrdering Facility: [facility] Address: [address] [place] [address] Performed By: #### 5 8410-2 ####[facility]ORYCLIA [id number] [address] STATES OF [facility] RBC (Bld) [#/Vol] 5.20 10*6/uL Normal 4.20-6.00 [facility] Comment on above: Order Comment: Speci men Type: BLOOD SPECIMENOrdering Facility: [facility] Address: [address] [place] [address] Performed By: #### 5 8410-2 ####[facility]ORYCLIA [id number] [address] [place] WBC (Bld) [#/Vol] 17.53 10*3/uL High 3.70-11.00 [facility] Comment on above: Order Comment: Speci men Type: BLOOD SPECIMENOrdering Facility: [facility] Address: [address] [place] [address] Performed By: #### 5 8410-2 ####[facility]ORYCLIA [id number] [address] CONSULT PROGon 04-26-2025 CONSULT PROG HNO ID: [id number] Author: ERIKA MILTON MD Service: General Surgery Author Type: Physician Type: Consult Progress Note Filed: 04/26/2025 12:32 Note Text: INPATIENT SICU PROGRESS NOTE SERVICE DATE: 04/26/2025 SERVICE TIME: 6:28 AM Subjective Patient seen in the AM. AANDOx2 without neuro deficits. Mild non-productive cough last night. Sating well on RA. WBC increased. Will obtain CXR today AM` to evaluate for PNA. Current Facility-Administered Medications Medication Dose Route Frequency NaCl 0.9% iv flush bag 20 mL INTRAVENOUS PRN pravastatin 40 mg tab(s) (PRAVACHOL) 40 mg ORAL DAILY memantine 5 mg tab(s) (NAMENDA) 5 mg ORAL BID ondansetron 4 mg tab(s) (ZOFRAN) 4 mg ORAL q 6 H PRN Or ondansetron (PF) 4 mg injection (ZOFRAN) 4 mg INTRAVENOUS q 6 H PRN potassium chloride 20-40 mEq oral powder (KLOR-CON) 20-40 mEq ORAL/FEEDING TUBE PRN Or potassium chloride iv piggyback 20 mEq/100 mL 20 mEq INTRAVENOUS PRN sodium phosphate 30 mmol in D5W 250 mL 30 mmol INTRAVENOUS PRN(NO DISPENSE) Or sodium phosphate 45 mmol in D5W 250 mL 45 mmol INTRAVENOUS PRN(NO DISPENSE) magnesium sulfate iv piggyback in sterile water 2 g 50 mL 2 g INTRAVENOUS PRN calcium gluconate iv piggyback 2 g in NaCl (iso-osmotic) 100 mL 2 g INTRAVENOUS PRN(NO DISPENSE) sodium chloride 0.9 % (flush) 2-10 mL (BD POSIFLUSH) 2-10 mL INTRAVENOUS DIRECTED PRN And perflutren lipid microspheres 1.1 mg/mL 1.3 mL injection (DEFINITY) 1.3 mL INTRAVENOUS DIRECTED PRN nicotine 14 mg/24 hr 1 patch (NICODERM) 1 patch TRANSDERMAL DAILY And nicotine -- REMOVE patch OTHER DAILY And nicotine - verify patch OTHER q 8 H levETIRAcetam 1,000 mg tab(s) (KEPPRA) 1,000 mg ORAL BID haloperidol lactate 5 mg short-acting injection (HALDOL) 5 mg INTRAVENOUS q 6 H PRN oxyCODONE IR 2.5 mg tab(s) (ROXICODONE) 2.5 mg ORAL q 6 H PRN phosphorus 250 mg tab(s) (K PHOS NEUTRAL) 250 mg ORAL PC and HS acetaminophen 1,000 mg tab(s) (TYLENOL) 1,000 mg ORAL QID Objective VITAL SIGNS BP 104/75 Pulse 90 Temp (Src) 97.9 (Oral) Resp 16 Ht 5' 5 (1.65m) Wt 142 lb 3.2 oz (64.5kg) SpO2 96% BMI 23.66 kg/(m2). O2 Therapy: Room Air Temp (24hrs), Av.7 ?C (98 ?F), Min:36.4 ?C (97.5 ?F), Max:36.9 ?C (98.4 ?F) PHYSICAL EXAM: GENERAL: Alert. No distress. bed with at bedside, resting comfortably. NEURO: AANDOx2. Which is Pt baseline per . Responding appropriately. No focal neurologic deficits. Sensation grossly intact. HEENT: Normocephalic. Atraumatic. Small scalp abrasion. EOMI. LUNGS: Unlabored breathing on RA. Equal excursion bilaterally. CARDIAC: Regular rate. Good perfusion throughout. ABDOMEN: Soft, non-tender, non-distended. No rebound or guarding. EXTREMITIES: MINER. LUE with infiltrated IV, neuro intact and palpable pulses distally SKIN: No obvious jaundice or pallor. DATA: Diagnostic tests reviewed for today's visit: No results for input(s): BODSITE, CTYPE, PH, PCO2, PO2, BE, HCO3, CO2CT, O2HB, COHB, MHGB, TEMP, PHTC, PCO2T, PO2T, O2AD in the last 72 hours. Recent Labs 04/26/25 0429 04/25/25 0224 04/24/25 0809 CREAT 0.72* 0.67* 0.76 BUN 13 7* 7* NA 140 143 142 K 3.8 4.4 4.5 CHLOR 105 108* 106 CO2 21* 24 21* ANION 14 11 15 GLUC 125* 98 112* CA 9.2 9.1 9.2 P 3.9 3.6 -- MG 1.9 2.0 -- ALB -- -- 3.8* AST -- -- 20 ALT -- -- 19 ALKPHOS -- -- 87 TBILI -- -- 0.4 WBC 17.53* 11.91* 10.76 HB 15.6 14.9 15.3 HCT 46.3 44.3 45.6 PLT 250 233 234 Assessment AND Plan ACTIVE PROBLEM LIST Benign Non-Nodular Prostatic Hyperplasia With Lower Urinary Tract Symptoms Bladder Neck Obstruction Rosacea, Acne Pure Hypercholesterolemia S/P Turp Mild Cognitive Impairment Ataxia, Unspecified Personal History of Traumatic Brain Injury History of Subdural Hematoma History of Subarachnoid Hemorrhage Cervical Myelopathy (Hcc) Prediabetes Sdh (Subdural Hematoma) (Hcc) Nicotine use disorder, F17.2 Assessment and Plan: This is a 70 year old male with with dementia and hyperlipidemia presents as a level 1 transfer from [place] secondary to a ground-level fall with SDH Hospital course: 04/24: GLF with SDH, transferred to [facility] Neuro: SDH - Admit to trauma/SICU -Neurosurgery on consult, appreciate recommendation -[facility]: unchanged SDH -Holding DVT chemo ppx (restart 04/27) -Q4 NC - Keppra twice daily end 05/01 - pain and nausea prn CV: - Continue home statin - syncopal work up: ECHO and Carotid US WNL, EKG unremarkable. - maintain MAPs > 65 - most recent echo: N/a, Pending today - no indication for pressors at this time Resp: - Saturating well on RA - CT chest without traumatic pathology - maintain SpO2 > 92 - Continue IS GI: - DIET FOOD CONSISTENCY CONTROLLED - Bowel Regimen: N/a - GI ppx: N/a Renal: - strict Is/Os - electrolyte replacement per unit protocol - am Cr: 0.72 - Ca = 1.16, Phos = 3.9, Mg (more content not included)... Normal [facility] Calcium.ionized [Moles/Vol]o n 04-26-2025 Calcium.ionized (BldV) [Mass/Vol] 1.16 mmol/L Normal 1.08-1.30 [facility] Comment on above: Order Comment: Speci men Type: BLOOD SPECIMENOrdering Facility: [facility] Address: [address] [place] [address] Performed By: #### 1 995-0 ####[facility]ORYCLIA [id number] [place] [id number] [place] Calcium.ionized adjusted to pH 7.4 (Bld) [Moles/Vol] 1.18 mmol/L Normal 1.08-1.30 [facility] Comment on above: Order Comment: Speci men Type: BLOOD SPECIMENOrdering Facility: [facility] Address: [address] [place] [address] Performed By: #### 1 995-0 ####[facility]ITALCLIA [id number] [place] [address] [facility] [place] Magnesium SerPl-ncon 04-26 Magnesium [Mass/Vol] 1.9 mg/dL Normal 1.7-2.3 [facility] Comment on above: Order Comment: Speci men Type: BLOOD SPECIMENOrdering Facility: [facility] Address: [address] [place] [address] Performed By: #### 2 4321-2, 11020-7, 2777-1 ####[facility]ITALCLIA [id number] [address] Phosphate SerPl-ncon 04-26 Phosphate [Mass/Vol] 3.9 mg/dL Normal 2.7-4.8 [facility] Comment on above: Order Comment: Speci men Type: BLOOD SPECIMENOrdering Facility: [facility] Address: [address] [place] [address] Performed By: #### 2 4321-2, 04111-0, 2777-1 ####[facility]ITALCLIA [id number] [address] [place] THERAPY NTon 04-26-2025 THERAPY NT HNO ID: [id number] Author: MARGIE GTZ CCC-UPHOLSTERY TECHNICIAN Service: Speech/Swallow Author Type: Speech Language Pathologist Type: Therapy (PT/OT/Speech/Resp) Filed: 04/26/2025 13:16 Note Text: Speech Therapy Clinical Swallow Evaluation SERVICE DATE: 04/26/2025 SERVICE TIME: 1040 to 1056 ROOM: [place] [address] IMPRESSION Swallow Deficits Identified / Suspected: Oropharyngeal dysphagia RECOMMENDATIONS Diet Recommendations Soft and Bite-Sized IDDSI Level 6 Thin Liquids IDDSI Level 0 Swallow Strategy Recommendations 1:1 Supervision Check oral cavity for remaining food Feed / Eat at a slow rate Sit upright 90 degrees for all PO Small Bite/Sip Rigid Oral Hygiene Nursing Recommendations Reinforce use of swallowing strategies Response to Therapy Interventions: Confusion interferes with education, Good participation in activities, Receptive family/caregivers Rehabilitation Precautions: Dysphagia, Modified Diet, Aspiration Precautions, Cognitive Linguistics Deficits DISCHARGE RECOMMENDATIONS Recommended Discharge Disposition: Subacute/SNF Justification for Recommended Discharge Disposition: Patient requires daily, facility-based rehabilitation from at least one discipline due to:, dysphagia requiring frequent assessment and diet modification CURRENT HOSPITAL COURSE Transfer from [place] post fall. 04/24 CT Brain: right frontoparietal SAH, suspicious for right subdural hygroma; CT Chest: no acute infiltrate or contusion. 04/26 Chest xray: no acute abnormality Reason for Speech Therapy Consult: TBI, dysphagia, concern for aspiration Relevant Past Medical History: dementia, dysphagia HOME ENVIRONMENT / PRIOR FUNCTIONAL LEVEL Prior Functional Level: Required Assistance Patient Lives With: Spouse Assistance Available: PRN Prior Swallowing Function/Diet Textures: Regular Consistency, Thin Liquids IDDSI Level 0 SUBJECTIVE Up in bed and agreeable to evaluation THERAPY DIAGNOSIS Dysphagia, oropharyngeal phase TREATMENT INTERVENTIONS Clinical Swallow Evaluation (69477) Skilled Treatment Time (minutes): 16 $ Clinical Swallow Evaluation (18922) Billed Units: 1 unit TRAINING AND EDUCATION PROVIDED IN Dietary Consistencies, Dysphagia Management, Swallowing Strategies THERAPEUTIC SKILLS USED Discharge planning, Education on role of discipline / importance of activity, Family / caregiver counseling / training, Verbal cuing OBJECTIVE Current Status Oral Hygiene: Clear, dry oral cavity, Oral Health Assessment Tool (OHAT) Dentition: Retains Natural Dentition Current Feeding Method: Oral Current Diet Textures: Soft and Bite-Sized IDDSI Level 6, Thin Liquids IDDSI Level 0 Current Level Of Communication: Verbal Current Management Of Secretions: Able to self-manage Oral Motor Exam: Within Functional Limits Except Labial Assessment: Generalized weakness Lingual Assessment: Generalized weakness ORAL HEALTH ASSESSMENT TOOL Lips: 0 Tongue: 0 Gums and Tissues: 0 Saliva: 1 Natural Teeth: 0 Dentures: N/A Oral Cleanliness: 0 Dental Pain: 0 OHAT Total Score: 1 SWALLOW ASSESSMENT Position Of Patient During Assessment: Upright In Bed Feeding Method: Patient Self-Fed Consistencies Presented: Thin Liquids IDDSI Level 0, Pureed Solids IDDSI Level 4, Solid Thin Liquids Pharyngeal Phase: Suspect Delayed Swallow, Suspect Reduced Range of Hyoid/Laryngeal Elevation, Throat Clearing- Delayed Pureed Solids Pharyngeal Phase: Suspect Delayed Swallow, Suspect Reduced Range of Hyoid/Laryngeal Elevation Solid Oral Phase: Impaired Mastication, Mild Oral Residue Solid Pharyngeal Phase: Suspect Delayed Swallow, Suspect Reduced Range of Hyoid/Laryngeal Elevation Compensatory Strategies Utilized During Assessment: 1:1 Supervision, Check oral cavity for remaining food, Feed / Eat at a slow rate, Sit upright 90 degrees for all PO, Small Bite/Sip Previous Swallow Study: MBS (02/2025 reg/thin, double swallow) -Inconsistent cough throughout, even prior to po trials -Completed 3 oz water challenge with no cough, throat clear, or change in vocal quality - reported she feels patient's swallow is similar to how it had been prior to admission, has been working with Home Health UPHOLSTERY TECHNICIAN GOALS SWALLOWING: Patient / Caregiver will demonstrate knowledge of taught compensatory strategies and dietary consistency recommendations to optimize functional swallow function without overt clinical signs and symptoms of aspiration or dysphagia Swallow Goals: Patient will tolerate Soft and Bite-Sized IDDSI Level 6 diet consistency while utilizing compensatory/swallowing strategies given minimal cues in 90% of trials so that the patient will minimize the signs/symptoms of dysphagia. Patient will tolerate Thin Liquids IDDSI Level 0 consistency while utilizing compensatory/swallowing strategies given minimal cues in 90% of trials so that the patient will minimize the signs/symptoms of dysphagia. (more content not included)... Normal [facility] XR CHEST 1V FRONTALon 2024 XR CHEST 1V FRONTAL * * *Final Report* * * DATE OF EXAM: Apr 26 2025 6:48AM AKX [id number] - XR CHEST 1V FRONTAL / PROCEDURE REASON: Cough * * * * Physician Interpretation * * * * EXAMINATION: CHEST RADIOGRAPH (SINGLE VIEW AP OR PA) CLINICAL HISTORY: Cough MQ: XC1_5 Comparison: Chest CT 04/24/2025 RESULT: Lines, tubes, and devices: None. Lungs and pleura: No consolidation. No lung mass. No pleural effusion. Cardiomediastinal silhouette: Normal cardiomediastinal silhouette. Other: . IMPRESSION: No acute radiographic abnormality. Septic Tank Setter: PSCB Transcribe Date/Time: Apr 26 2025 8:32A Dictated by : CHANI JORDAN MD This examination was interpreted and the report reviewed and electronically signed by: CHANI JORDAN MD on Apr 26 2025 8:34AM EST [id number] Normal [facility] ALLIED HEALTHon 04-25-2025 ALLIED HEALTH HNO ID: [id number] Author: KAMILLA BENAVIDES RT(R) Service: Radiology Author Type: [address] Type: Allied Health Filed: 04/25/2025 08:14 Note Text: Radiology Service Progress Note PATIENT NAME: Patricio Padron DATE OF SERVICE: April 25, 2025 TIME: 8:14 AM PATIENT IDENTITY VERIFICATION COMPLETED USING TWO (2) IDENTIFIERS: Name and Date of confirmed by patient verbally and Name and Date of confirmed by identification band. FALL SCREENING: Has the patient had 2 falls in the last year or 1 fall with injury or currently using an Ambulatory Assistive Device (Walker, Cane, Wheelchair, Crutches, etc.)? Inpatient: Screened on floor PATIENT GENDER DATA: Assigned male at PATIENT RELEVANT IMPLANT DATA REVIEWED: Not Applicable PATIENT PRESENTS WITH AN IMPLANTABLE OR ATTACHED PSYCHOPAEDIC NURSE: No RADIOLOGY DEPARTMENT: CT; Exam(s) Completed: Brain PERIPHERAL IV DATA: Not applicable SIGNED BY: RT Geoff(R) April 25, 2025 8:14 AM Normal [facility] Basic metabolic 2000 panelon 04-25-2025 Anion gap [Moles/Vol] 11 mmol/L Normal 8-15 [facility] Comment on above: Order Comment: Speci men Type: BLOOD SPECIMENOrdering Facility: [facility] Address: [address] [place] [address] Performed By: #### 2 4321-2, , 2776-10 ####[facility]ATORYCLIA [id number] [place] [address] [place] Calcium [Mass/Vol] 9.1 mg/dL Normal 8.5-10.2 [facility] Comment on above: Order Comment: Speci men Type: BLOOD SPECIMENOrdering Facility: [facility] Address: [address] [place] [address] Performed By: #### 2 4321-2, , 2776-10 ####[facility]ATORYCLIA [id number] [place] [address] [place] Chloride [Moles/Vol] 108 mmol/L High 98-107 [facility] Comment on above: Order Comment: Speci men Type: BLOOD SPECIMENOrdering Facility: [facility] Address: [address] [place] [address] Performed By: #### 2 4321-2, , 2776-10 ####[facility]ATORYCLIA [id number] [place] [address] [place] CO2 [Moles/Vol] 24 mmol/L Normal 22-30 [facility] Comment on above: Order Comment: Speci men Type: BLOOD SPECIMENOrdering Facility: [facility] Address: [address] [place] [address] Performed By: #### 2 4321-2, , 2776-10 ####[facility]ORYCLIA [id number] [address] STATES OF [facility] Creatinine [Mass/Vol] 0.67 mg/dL Low 0.73-1.22 [facility] Comment on above: Order Comment: Speci men Type: BLOOD SPECIMENOrdering Facility: [facility] Address: [address] [place] [address] Performed By: #### 2 4321-2, , 2776-10 ####[facility]ORYCLIA [id number] [address] Creatinine and Glomerular filtration rate.predicted panel (S/P/Bld) 100 mL/min/1.73m??? Normal >=60 [facility] Comment on above: Order Comment: Speci men Type: BLOOD SPECIMENOrdering Facility: [facility] Address: [address] [place] [address] Result Comment: Katerine mated Glomerular Filtration Rate [...] reflect actual GFR. Performed By: #### 2 4321-2, , 2776-10 ####[facility]ORYCLIA [id number] [place] [address] [place] Glucose [Mass/Vol] 98 mg/dL Normal 74-99 [facility] Comment on above: Order Comment: Speci men Type: BLOOD SPECIMENOrdering Facility: [facility] Address: [address] [place] [address] Result Comment: The [place] Diabetes Association (ADA) provides guidance for cutoff [...] Standards of Medical Care in Diabetes 2016, [place] [employer] Association. Diabetes Care. 2016.39(Suppl 1). Performed By: #### 2 4321-2, , 2776-10 ####[facility]ORYCLIA [id number] [place] [address] [place] Potassium [Moles/Vol] 4.4 mmol/L Normal 3.7-5.1 [facility] Comment on above: Order Comment: Speci men Type: BLOOD SPECIMENOrdering Facility: [facility] Address: [address] [place] [address] Performed By: #### 2 432-2, , 2776-10 ####[facility]ORYCLIA [id number] [place] [address] [place] Sodium [Moles/Vol] 143 mmol/L Normal 136-144 [facility] Comment on above: Order Comment: Aaroni men Type: BLOOD SPECIMENOrdering Facility: [facility] Address: [address] [place], [place] [address] Performed By: #### 2 432-2, , 2776-10 ####[facility]ORYCLIA [id number] [address] [place] Urea nitrogen [Mass/Vol] 7 mg/dL Low 9-24 [facility] Comment on above: Order Comment: Speci men Type: BLOOD SPECIMENOrdering Facility: [facility] Address: [address] [place] [address] Performed By: #### 2 4321-2, 14934-4, 2777-1 ####[facility]ORYCLIA [id number] [address] OF [facility] CBC panel Auto (Bld)on 04-25 Erythrocyte distribution width (RBC) [Ratio] 12.6 % Normal 11.5-15.0 [facility] Comment on above: Order Comment: Speci men Type: BLOOD SPECIMENOrdering Facility: [facility] Address: [address] [place] [address] Performed By: #### 5 8410-2 ####[facility]ORYCLIA [id number] [address] STATES OF [facility] Hematocrit (Bld) [Volume fraction] 44.3 % Normal 39.0-51.0 [facility] Comment on above: Order Comment: Speci men Type: BLOOD SPECIMENOrdering Facility: [facility] Address: [address] [place] [address] Performed By: #### 5 8410-2 ####[facility]ORYCLIA [id number] [address] [place] Hemoglobin (Bld) [Mass/Vol] 14.9 g/dL Normal 13.0-17.0 [facility] Comment on above: Order Comment: Speci men Type: BLOOD SPECIMENOrdering Facility: [facility] Address: [address] [place] [address] Performed By: #### 5 8410-2 ####[facility]ORYCLIA [id number] [address] [place] MCH (RBC) [Entitic mass] 30.3 pg Normal 26.0-34.0 [facility] Comment on above: Order Comment: Speci men Type: BLOOD SPECIMENOrdering Facility: [facility] Address: [address] [place] [address] Performed By: #### 5 8410-2 ####[facility]ORYCLIA [id number] [address] MCHC (RBC) [Mass/Vol] 33.6 g/dL Normal 30.5-36.0 [facility] Comment on above: Order Comment: Speci men Type: BLOOD SPECIMENOrdering Facility: [facility] Address: [address] [place] [address] Performed By: #### 5 8410-2 ####[facility] [facility] LABORATORYCLIA [id number] [address] [place] MCV (RBC) [Entitic vol] 90.0 fL Normal 80.0-100.0 [facility] Comment on above: Order Comment: Speci men Type: BLOOD SPECIMENOrdering Facility: [facility] Address: [address] [place] [address] Performed By: #### 5 8410-2 ####[facility] LABORATORYCLIA [id number] [address] Nucleated RBC (Bld) [#/Vol] 10*3/uL Normal <0.01 [facility] Comment on above: Order Comment: Speci men Type: BLOOD SPECIMENOrdering Facility: [facility] Address: [address] [place] [address] Performed By: #### 5 8410-2 ####[facility] LABORATORYCLIA [id number] [address] Platelet mean volume (Bld) [Entitic vol] 9.8 fL Normal 9.0-12.7 [facility] Comment on above: Order Comment: Speci men Type: BLOOD SPECIMENOrdering Facility: [facility] Address: [address] [place] [address] Performed By: #### 5 8410-2 ####[facility] LABORATORYCLIA [id number] [address] OF [facility] Platelets (Bld) [#/Vol] 233 10*3/uL Normal 150-400 [facility] Comment on above: Order Comment: Speci men Type: BLOOD SPECIMENOrdering Facility: [facility] Address: [address] [place] [address] Performed By: #### 5 8410-2 ####[facility] LABORATORYCLIA [id number] [address] OF [facility] RBC (Bld) [#/Vol] 4.92 10*6/uL Normal 4.20-6.00 [facility] Comment on above: Order Comment: Speci men Type: BLOOD SPECIMENOrdering Facility: [facility] Address: [address] [place] [address] Performed By: #### 5 8410-2 ####[facility] LABORATORYCLIA [id number] [address] OF [facility] WBC (Bld) [#/Vol] 11.91 10*3/uL High 3.70-11.00 [facility] Comment on above: Order Comment: Speci men Type: BLOOD SPECIMENOrdering Facility: [facility] Address: [address] [place] [address] Performed By: #### 5 8410-2 ####[facility] LABORATORYCLIA [id number] [address] OF [facility] CONSULT PROGon 04-25-2025 CONSULT PROG HNO ID: [id number] Author: RUBÉN HOLLINS APRN.MECHANICAL INTERN Service: Neurosurgery Author Type: Nurse Practitioner Type: Consult Progress Note Filed: 04/25/2025 11:36 Note Text: Neurosurgery Progress Note SERVICE DATE: 04/25/2025 SUBJECTIVE: NAEON OBJECTIVE: Vitals: Temp (24hrs), Av.5 ?C (97.7 ?F), Min:36.3 ?C (97.3 ?F), Max:36.6 ?C (97.9 ?F) BP 105/75 Pulse 100 Temp 36.4 ?C (97.5 ?F) (Oral) Resp 15 Ht 165.1 cm (5' 5) Wt 62.8 kg (138 lb 7.2 oz) SpO2 98% BMI 23.04 kg/m? O2 Therapy: Room Air IANDO: Date 04/24/25699 - 04/25/2565804/25/25699 - 04/26/25 0659 Shift 7795-1679 9001-1278 0143-6492 24 Hour Total 6801-3613 1902-3200 5340-6226 24 Hour Total INTAKE IV 200 200 Volume (mL) (calcium gluconate iv piggyback 2 g in NaCl (iso-osmotic) 100 mL) 200 200 Shift Total 200 200 OUTPUT Urine 200 200 Urine Incontinence/Not Saved 1 x 1 x 2 x Output ( External Collection Device 04/24/25 1430 [facility]) 200 200 Shift Total 200 200 Weight (kg) 61.5 61.5 62.8 62.8 62.8 62.8 62.8 62.8 Medications: Current Facility-Administered Medications Medication Dose Route Frequency NaCl 0.9% iv flush bag 20 mL INTRAVENOUS PRN levETIRAcetam 1,000 mg injection (KEPPRA) 1,000 mg INTRAVENOUS BID pravastatin 40 mg tab(s) (PRAVACHOL) 40 mg ORAL DAILY memantine 5 mg tab(s) (NAMENDA) 5 mg ORAL BID ondansetron 4 mg tab(s) (ZOFRAN) 4 mg ORAL q 6 H PRN Or ondansetron (PF) 4 mg injection (ZOFRAN) 4 mg INTRAVENOUS q 6 H PRN oxyCODONE IR 5-10 mg tab(s) (ROXICODONE) 5-10 mg ORAL q 4 H PRN acetaminophen 975 mg tab(s) (TYLENOL) 975 mg ORAL QID potassium chloride 20-40 mEq oral powder (KLOR-CON) 20-40 mEq ORAL/FEEDING TUBE PRN Or potassium chloride iv piggyback 20 mEq/100 mL 20 mEq INTRAVENOUS PRN sodium phosphate 30 mmol in D5W 250 mL 30 mmol INTRAVENOUS PRN(NO DISPENSE) Or sodium phosphate 45 mmol in D5W 250 mL 45 mmol INTRAVENOUS PRN(NO DISPENSE) magnesium sulfate iv piggyback in sterile water 2 g 50 mL 2 g INTRAVENOUS PRN calcium gluconate iv piggyback 2 g in NaCl (iso-osmotic) 100 mL 2 g INTRAVENOUS PRN(NO DISPENSE) sodium chloride 0.9 % (flush) 2-10 mL (BD POSIFLUSH) 2-10 mL INTRAVENOUS DIRECTED PRN And perflutren lipid microspheres 1.1 mg/mL 1.3 mL injection (DEFINITY) 1.3 mL INTRAVENOUS DIRECTED PRN nicotine 14 mg/24 hr 1 patch (NICODERM) 1 patch TRANSDERMAL DAILY And nicotine -- REMOVE patch OTHER DAILY And nicotine - verify patch OTHER q 8 H haloperidol lactate 5 mg short-acting injection (HALDOL) 5 mg INTRAVENOUS q 6 H PRN Labs: Recent Labs 04/25/25 0224 04/24/25 0809 NA 143 142 K 4.4 4.5 CHLOR 108* 106 CO2 24 21* BUN 7* 7* CREAT 0.67* 0.76 GLUC 98 112* ANION 11 15 CA 9.1 9.2 MG 2.0 -- P 3.6 -- ALB -- 3.8* AST -- 20 ALT -- 19 ALKPHOS -- 87 TBILI -- 0.4 WBC 11.91* 10.76 HB 14.9 15.3 HCT 44.3 45.6 PLT 233 234 INR -- 1.0 Imaging: IMPRESSION: 1. Unchanged small right-sided subdural hemorrhage measuring 5 mm in thickness. No new intracranial hemorrhage identified. 2. No CT evidence of acute cortical infarct. 3. Chronic small vessel ischemic white matter disease and diffuse cerebral volume loss. 4. Unchanged partial nonspecific bilateral mastoid fluid. Septic Tank Setter: ANKIT Transcribe Date/Time: Apr 25 2025 8:27A Exam: GENERAL: No distress, Alert NEURO: Neuro : A+O x2, PERRL, makes eye contact, speech clear, cranial nerves 2-12 grossly intact , MINER, strength 5/5 BUE and BLE and equal HEENT: normocephalic, atraumatic LUNGS: Unlabored breathing CARDIAC: Regular rate and rhythm as above ABDOMEN: Soft, non-tender, non-distended EXTREMITIES: MINER, No deformities, No edema SKIN: Skin color, texture, turgor normal, No rashes or lesions ASSESSMENT AND PLAN: Active Hospital Problems Diagnosis Date Noted SDH (subdural hematoma) (HCC) 04/24/2025 Nicotine use disorder, F17.2 04/25/2025 Patricio Padron is a 70 year old male presenting as a trauma transfer from [place] following GLF. Found to have thin acute R temporal SDH. - neuro as above - ok for RNF - neuro checks q 4 - rCTH stable - keppra 1g bid x 7 days - HOB >30 - dvt ppx - hold DVT Prophylaxis: hold for 48 hours post stable scan Portions of text from this note were copied. All relevant information was reviewed and updated accordingly on 04/25/2025 SIGNATURE: Rubén Hollins APRN.CNP PATIENT NAME: Patricio Padron DATE: April 25, 2025 TIME: 11:32 AM Rubén Hollins APRN.MECHANICAL INTERN To contact Page Neurosurgery MIGUELINA Neurosurgery MIGUELINA Pager: [phone] [facility]rn [facility] CONSULT PROG HNO ID: [id number] Author: MATT MESSINA MD Service: General Surgery Author Type: Resident Type: Consult Progress Note Filed: 04/26/2025 20:45 Note Text: -- Attestation signed by Matt Messina MD at 04/26/2025 8:45 PM Attending Note I have seen and evaluated the patient. I have reviewed the imaging, lab results and examined the patient personally. I have created and discussed the care plan and agree with documentation above as provided by the Advanced Practice Provider/resident. Matt Messina MD Department of General Surgery Section of Trauma, Surgery Critical Care, and Acute Care Surgery Repeat CTH stable. Transfer to [facility] -- INPATIENT SICU PROGRESS NOTE SERVICE DATE: 04/25/2025 SERVICE TIME: 7:14 AM Subjective Patient seen and examined this morning, with at bedside. Denies new numbness, weakness, tingling, headache or changes in vision. Denies chest pain, shortness of breath. States his pain is overall well-controlled on current regimen. Per , concern for prior chronic leg weakness prior to admission. Current Facility-Administered Medications Medication Dose Route Frequency NaCl 0.9% iv flush bag 20 mL INTRAVENOUS PRN iv contrast (radiology procedure) INTRAVENOUS DIRECTED PRN iv contrast (radiology procedure) INTRAVENOUS DIRECTED PRN levETIRAcetam 1,000 mg injection (KEPPRA) 1,000 mg INTRAVENOUS BID pravastatin 40 mg tab(s) (PRAVACHOL) 40 mg ORAL DAILY memantine 5 mg tab(s) (NAMENDA) 5 mg ORAL BID ondansetron 4 mg tab(s) (ZOFRAN) 4 mg ORAL q 6 H PRN Or ondansetron (PF) 4 mg injection (ZOFRAN) 4 mg INTRAVENOUS q 6 H PRN oxyCODONE IR 5-10 mg tab(s) (ROXICODONE) 5-10 mg ORAL q 4 H PRN acetaminophen 975 mg tab(s) (TYLENOL) 975 mg ORAL QID potassium chloride 20-40 mEq oral powder (KLOR-CON) 20-40 mEq ORAL/FEEDING TUBE PRN Or potassium chloride iv piggyback 20 mEq/100 mL 20 mEq INTRAVENOUS PRN sodium phosphate 30 mmol in D5W 250 mL 30 mmol INTRAVENOUS PRN(NO DISPENSE) Or sodium phosphate 45 mmol in D5W 250 mL 45 mmol INTRAVENOUS PRN(NO DISPENSE) magnesium sulfate iv piggyback in sterile water 2 g 50 mL 2 g INTRAVENOUS PRN calcium gluconate iv piggyback 2 g in NaCl (iso-osmotic) 100 mL 2 g INTRAVENOUS PRN(NO DISPENSE) sodium chloride 0.9 % (flush) 2-10 mL (BD POSIFLUSH) 2-10 mL INTRAVENOUS DIRECTED PRN And perflutren lipid microspheres 1.1 mg/mL 1.3 mL injection (DEFINITY) 1.3 mL INTRAVENOUS DIRECTED PRN nicotine 14 mg/24 hr 1 patch (NICODERM) 1 patch TRANSDERMAL DAILY And nicotine -- REMOVE patch OTHER DAILY And nicotine - verify patch OTHER q 8 H haloperidol lactate 5 mg short-acting injection (HALDOL) 5 mg INTRAVENOUS q 6 H PRN Objective VITAL SIGNS BP 113/74 Pulse 83 Temp (Src) 97.7 (Oral) Resp 15 Ht 5' 5 (1.65m) Wt 138 lb 7.2 oz (62.8kg) SpO2 97% BMI 23.04 kg/(m2). O2 Therapy: Room Air Temp (24hrs), Av.6 ?C (97.8 ?F), Min:36.3 ?C (97.3 ?F), Max:37.1 ?C (98.7 ?F) Date 04/24/25699 - 04/25/25 0604/25/25699 - 04/26/25 0659 Shift 4931-5338 5320-5850 1822-2618 24 Hour Total 3712-7943 6708-0181 4302-1558 24 Hour Total INTAKE IV 200 200 Volume (mL) (calcium gluconate iv piggyback 2 g in NaCl (iso-osmotic) 100 mL) 200 200 Shift Total 200 200 OUTPUT Urine 200 200 Urine Incontinence/Not Saved 1 x 1 x 2 x Output ( External Collection Device 04/24/25 1430 [facility]) 200 200 Shift Total 200 200 Weight (kg) 61.5 61.5 62.8 62.8 62.8 62.8 62.8 62.8 PHYSICAL EXAM: GENERAL: Alert. No distress. bed with at bedside, resting comfortably. NEURO: AANDOx2. Which is Pt baseline per . Responding appropriately. No focal neurologic deficits. Sensation grossly intact. HEENT: Normocephalic. Atraumatic. Small scalp abrasion. EOMI. LUNGS: Unlabored breathing on RA. Equal excursion bilaterally. CARDIAC: Regular rate. Good perfusion throughout. ABDOMEN: Soft, non-tender, non-distended. No rebound or guarding. EXTREMITIES: MINER. No deformities. SKIN: No obvious jaundice or pallor. DATA: Diagnostic tests reviewed for today's visit: No results for input(s): BODSITE, CTYPE, PH, PCO2, PO2, BE, HCO3, CO2CT, O2HB, COHB, MHGB, TEMP, PHTC, PCO2T, PO2T, O2AD in the last 72 hours. Recent Labs 04/25/25 0224 04/24/25 0809 CREAT 0.67* 0.76 BUN 7* 7* NA 143 142 K 4.4 4.5 CHLOR 108* 106 CO2 24 21* ANION 11 15 GLUC 98 112* CA 9.1 9.2 P 3.6 -- MG 2.0 -- ALB -- 3.8* AST -- 20 ALT -- 19 ALKPHOS -- 87 TBILI -- 0.4 WBC 11.91* 10.76 HB 14.9 15.3 HCT 44.3 45.6 PLT 233 234 Assessment AND Plan ACTIVE PROBLEM LIST Benign Non-Nodular Prostatic Hyperplasia With Lower Urinary Tract Symptoms Bladder Neck Obstruction Rosacea, Acne Pure Hypercholesterolemia S/P Turp Mild Cog (more content not included)... Normal [facility] CT BRAIN WO IVCONon 04-25-[address] BRAIN WO IVCON * * *Final Report* * * DATE OF EXAM: Apr 25 2025 8:16AM [facility] 0504 - CT BRAIN WO IVCON / PROCEDURE REASON: Subdural hematoma * * * * Physician Interpretation * * * * EXAMINATION: CT BRAIN WO IVCON CLINICAL HISTORY: Subdural hematoma. TECHNIQUE: Serial axial images without IV contrast were obtained from the vertex to the foramen magnum. MQ: [id number]_3 CT Radiation dose: Integrated Dose-Length Product (DLP) for this visit = 796 mGy*cm CT Dose Reduction Employed: Iterative recon COMPARISON: 04/24/2025. RESULT: Acute change: No evidence of an acute infarct or other acute parenchymal process. Hemorrhage: Unchanged the small right-sided subdural hemorrhage measuring 5 mm in thickness. No new intracranial hemorrhage identified. Mass Lesion / Mass Effect: There is no evidence of an intracranial mass or extraaxial fluid collection. No significant mass effect. Chronic change: Patchy foci of low attenuation are present within the supratentorial white matter, a nonspecific finding that most commonly represents moderate small vessel disease. Parenchyma: There is moderate generalized volume loss. Ventricles: Ventricular enlargement concordant with the degree of parenchymal volume loss. Paranasal sinuses and skull base: Mild mastoid fluid is nonspecific. Scattered opacification of ethmoid air cells. The skull base and imaged soft tissues are unremarkable. IMPRESSION: 1. Unchanged small right-sided subdural hemorrhage measuring 5 mm in thickness. No new intracranial hemorrhage identified. 2. No CT evidence of acute cortical infarct. 3. Chronic small vessel ischemic white matter disease and diffuse cerebral volume loss. 4. Unchanged partial nonspecific bilateral mastoid fluid. Septic Tank Setter: PSCB Transcribe Date/Time: Apr 25 2025 8:27A Dictated by : KRISTI BELLE MD This examination was interpreted and the report reviewed and electronically signed by: KRISTI BELLE MD on Apr 25 2025 8:34AM EST [id number] Normal [facility] Calcium.ionized [Moles/Vol]o n 04-25-2025 Calcium.ionized (BldV) [Mass/Vol] 1.17 mmol/L Normal 1.08-1.30 [facility] Comment on above: Order Comment: Speci men Type: BLOOD SPECIMENOrdering Facility: [facility] Address: [address] [place] [address] Performed By: #### 1 995-0 ####[facility]ORATORYCLIA [id number] [place] [address] [place] Calcium.ionized adjusted to pH 7.4 (Bld) [Moles/Vol] 1.18 mmol/L Normal 1.08-1.30 [facility] Comment on above: Order Comment: Speci men Type: BLOOD SPECIMENOrdering Facility: [facility] Address: [address] [place] [address] Performed By: #### 1 995-0 ####[facility]ORATORYCLIA [id number] [place] [address] [place] ECHOon 04-25-2025 Echocardiography Echocardiography Rep ort: Transthoracic Echo [facility] Date of service: 04/25/2025 7:27:46 AM HOSPITAL Ordering physician: DARRIUS REESE Exam indication: Syncope Technologist: Anika Benites Interpreting physician: Natan Armendariz MD PATIENT: Name: MR. PATRICIO PADRON : 1955 Age: 70 years Gender: M Primary rhythm: sinus. Secondary rhythm: PVC. Height: 165.10 cm BSA: 1.80 m Weight: 70.31 kg BMI: 25.8 kg/m Heart rate 92 bpm Blood pressure 113/74 mmHg Technically difficult exam due to suboptimal positioning and respitory interference. Color Doppler was utilized to interrogate the cardiac valves assessed and spectral Doppler was utilized to determine the flow velocities and pressure gradients reported in this exam. MEASUREMENTS: Value Indexed Normal Max aortic dimension 3.3 cm Ao < 3.8 Left atrial volume 34 ml (4ch A-L) 19 ml/m Lynda <= 34 Ejection Fraction 55 % (visual est.) EF > 52 FINDINGS: LEFT VENTRICLE The left ventricle is unseen or not interrogated. Left ventricular systolic function is normal. Indeterminate left ventricular diastolic function due to inconsistent or technically suboptimal data. RIGHT VENTRICLE The right ventricle is normal in size. Right ventricular systolic function is normal. RV systolic tissue Doppler velocity is 13.0 cm/s. Tricuspid annular displacement is 1.8 cm. Estimated right ventricular systolic pressure is not reported due to an insufficient tricuspid regurgitation signal. Estimated right atrial pressure is 3 mmHg based on IVC assessment. LEFT ATRIUM The left atrial cavity is normal in size. RIGHT ATRIUM Unable to reliably measure RA volume due to technical limitations. Inferior Vena Cava: The inferior vena cava appears normal measuring 1.7 cm. The vessel decreases greater than 50 percent with inspiration. MITRAL VALVE The mitral valve leaflets are structurally normal. There is trace mitral valve regurgitation. The pressure half time is 63 msec. The peak mitral E/A ratio is 0.52. The mitral flow deceleration time is 217 msec. TRICUSPID VALVE There is trace tricuspid valve regurgitation. There is no thickening. AORTIC VALVE There is no aortic valve regurgitation. Tricuspid aortic valve. There is no thickening. PULMONIC VALVE The pulmonic valve was not seen or not interrogated. There is no pulmonic valve regurgitation. AORTA The visualized aorta is normal in size. Measurements - Mid ascending aorta 3.3 cm. PULMONARY ARTERIES The pulmonary arteries are unseen or not interrogated. INTERATRIAL SEPTUM There is no evidence of intracardiac shunting as detected by Doppler. INTERVENTRICULAR SEPTUM There is no flow through the interventricular septum as detected by Doppler. PERICARDIUM There is no pericardial effusion. There is an epicardial fat pad. CONCLUSIONS: - Technically difficult exam due to suboptimal positioning and respitory interference. - Exam indication: Syncope - Left ventricular systolic function is normal. EF = 55 5% (visual est.) - The right ventricle is normal in size. Right ventricular systolic function is normal. - In limited views, there does not appear to be any significant valvular abnormalities. - The patient has not had a prior CC echocardiographic exam for comparison. * * * Final * * * CC MD [employer] : [id number] Normal [facility] Magnesium [facility] 04-25 Magnesium [Mass/Vol] 2.0 mg/dL Normal 1.7-2.3 [facility] Comment on above: Order Comment: Speci men Type: BLOOD SPECIMENOrdering Facility: [facility] Address: [address] [place] [address] Performed By: #### 2 4321-2, 51770-7, 2777-1 ####[facility]ORATORYCLIA [id number] [address] Phosphate [facility] 04-25 Phosphate [Mass/Vol] 3.6 mg/dL Normal 2.7-4.8 [facility] Comment on above: Order Comment: Speci men Type: BLOOD SPECIMENOrdering Facility: [facility] Address: [address] [place] [address] Performed By: #### 2 4321-2, 90218-3, 2777-1 ####[facility]ATORYCLIA [id number] [address] [place] THERAPY NTon 04-25-2025 THERAPY NT HNO ID: [id number] Author: CONRAD KEMP, PT Service: Physical Therapy Author Type: Physical Therapist Type: Therapy (PT/OT/Speech/Resp) Filed: 04/25/2025 16:57 Note Text: Physical Therapy Evaluation Summary SERVICE DATE: 04/25/2025 SERVICE TIME: 1542 to 1620 ROOM: [place] [address] PT 6 Clicks Score: 11 DISCHARGE RECOMMENDATIONS Subacute/SNF Recommended Discharge Disposition Comments: patient far below baseline of ambulatory at [facility] with supervision Recommended Discharge Disposition Due to: Functional deficits requiring ongoing therapy service prior to discharge home., Patient requires daily (5x/week) skilled therapy at next level of care. ASSESSMENT Response to Therapy Interventions: Good Participation in Activities, Cognitive Deficits PRECAUTIONS Fall Risk, Bed/Chair Alarm, Impulsive with Activity CURRENT HOSPITAL COURSE Pt transferred from [place] following GLF. Per pt's spouse he was getting out of bed at night to go use the restroom when he fell. CT showed R SDH. Pt initially managed in ICU, now stable for RNF Relevant Past Medical History: dementia HOME LIVING Patient Lives With: Spouse Assistance Available: 24-Hour Entry To Home: Stairs, Without Rail Number Of Stairs Into Home: 2 Number Of Stairs To Bed/Bath: 0 Tub/Shower Type: walk in shower Laundry: main floor Equipment Owned: Cane, Walker- Wheeled, Shower Chair, Grab Bars- Shower, Commode- Raised, Rollator PRIOR FUNCTIONAL LEVEL Required Assistance, History of Falls Assistance Required With: Cleaning, Laundry, Self Care, Shopping, Transportation, Safety, Medication Management, Meals Pt unable to provide history, per chart review pt has assist from spouse for ADLs and is dependent for IADLs. Pt has had multiple recent falls. Family recently hired an aid to help once a week to help the pt get used to receiving care from someone else as well SUBJECTIVE Pleasant and agreeable to PT. THERAPY DIAGNOSIS Reduced mobility-other, Muscle Weakness (generalized), Abnormalities of gait and mobility-other, Unsteadiness on feet, General symptoms and signs-other, Difficulty walking-musculoskeletal TREATMENT INTERVENTIONS Evaluation, Therapeutic Activity (53306) Timed Code Treatment (minutes): 23 Skilled Treatment Time (minutes): 38 $ Evaluation-Moderate (03936) Billed Units: 1 unit Therapeutic Activity (04695) Treatment Minutes: 23 $ Therapeutic Activity (81731) Billed Units: 2 units See grid as well as balance and activity tolerance section(s) for functional mobility facilitated and education provided. Education regarding importance of continued and progressive mobility with staff assist to prevent hospital acquired weakness. Education on fall prevention. Up with assist only. Oriented to call light. Extensive education regarding discharge recommendation, rationale. Educated needs at home if chooses to return home including two capable caregivers for mobility, use of wheelchair vs bed level, home physical therapy. Educated delirium prevention including familiar faces, lights on during the day, glasses/hearing aids as appropriate, frequent re-orientation. TRAINING AND EDUCATION PROVIDED Anatomy and Impact on Deficits, Assistive Device Use, Bed Mobility, Benefits of In-Hospital Mobility, Discharge Planning, Equipment, Expected Functional Level, Falls Prevention, Gait Pattern, Reduction of Deviations, Home Safety, Home Set-up/Modifications, Role of Physical Therapy, Sitting Balance, Transfers, Standing Balance THERAPEUTIC SKILLS USED Activity Dosing, Assessment of Tolerance Including Vitals Response to Activity, Cues for Sequencing/Proper Technique for Activity, Cuing Verbal, Movement Facilitation, Muscle Activation Facilitation, Physical Assist, Postural Alignment Correction FUNCTIONAL STATUS Bed Mobility Supine To Sit: Moderate Assistance, Additional Information instructed technique, assist to guide BLE to EOB and elevate trunk Sit to Supine: Maximal Assistance, Additional Information assist to lower trunk and lift BLE into bed Scooting: Moderate Assistance, Additional Information use of draw sheet to assist with positioning at EOB, able to scoot self over in bed Transfers Sit To Stand: Moderate Assistance, Additional Information cues for hand placement at walker, assist to lift Stand To Sit: Moderate Assistance, Additional Information cues to reach hands back and sit slowly, facilitate sitting at hip Bed to Chair Gait Moderate Assistance, Additional Information assist balance, walker management, faciliated weight shift with cues for stepping Gait Device: Wheeled Walker General Deviations/Observations: Vianca decreased, Step length decreased, Flexed trunk posture Gait Distance (feet): 3ft side steps Stairs RANGE OF MOTION Lower Extremity Comments Right Lower Extremity ROM Comments: WFL Left Lower Extremity ROM Comments: WFL STRENGTH Right Lower Ext (more content not included)... Normal [facility] THERAPY NT HNO ID: [id number] Author: CHELSEA SNIDER OTR/Augustin Service: Occupational Therapy Author Type: Occupational Therapist Type: Therapy (PT/OT/Speech/Resp) Filed: 04/25/2025 15:17 Note Text: Occupational Therapy Evaluation Summary SERVICE DATE: 04/25/2025 SERVICE TIME: 1325 to 1351 ROOM: [id number] OT 6 Clicks Score: 11 DISCHARGE RECOMMENDATIONS Subacute/SNF Recommended Discharge Disposition Comments: Pt would benefit from SNF placement prior to return home to maximize functional status, if returning home at d/c would benefit from Home OT, 09/05 assist and physical assistance for all transfers and ADLs Recommended Discharge Disposition Due to: Functional deficits requiring ongoing therapy service prior to discharge home., Patient requires daily (5x/week) skilled therapy at next level of care., ADL impairment, Cognitive deficits new/worsened, Functional status decline, Requires multiple therapy disciplines ASSESSMENT Response to Therapy Interventions: Cognitive Deficits, Good Participation in Activities, Low Activity Tolerance, Needs Frequent Redirection or Reinstruction Pt functioning below prior baseline, pt now requiring max A for bed mobility and ADLs. Pt able to tolerate sitting EOB with mod A to support balance, required Max A for STS transfer with ww. Pt very unsteady when up, with significant posterior lean when standing. Pt able to follow 1 step commands with max cuing throughout. PRECAUTIONS Bed/Chair Alarm, Fall Risk, Impulsive with Activity CURRENT HOSPITAL COURSE Pt transferred from [place] following GLF. Per pt's spouse he was getting out of bed at night to go use the restroom when he fell. CT showed R SDH. Pt initially managed in ICU, now stable for RNF Relevant Past Medical History: dementia, HLD HOME LIVING Patient Lives With: Spouse Assistance Available: 24-Hour Entry To Home: Stairs, Without Rail, Ramp Number Of Stairs Into Home: 2 Tub/Shower Type: walk in shower Laundry: main floor Equipment Owned: Cane, Walker- Wheeled, Shower Chair, Grab Bars- Shower, Commode- Raised, Rollator PRIOR FUNCTIONAL LEVEL Required Assistance Assistance Required With: Cleaning, Laundry, Self Care, Shopping, Transportation, Safety, Medication Management, Meals Pt unable to provide history, per chart review pt has assist from spouse for ADLs and is dependent for IADLs. Pt has had multiple recent falls. Family recently hired an aid to help once a week to help the pt get used to receiving care from someone else as well Baseline Cognition: Oriented to self, Oriented to place, Oriented to time, Oriented to situation SUBJECTIVE Pt pleasant, confused. Oriented to self only. Reported feeling dizzy when sitting at the edge of the bed. COGNITION Communication Deficits: Delayed Response Orientation Deficits: Confused, Not oriented to Place, Not oriented to Time (Able to say his name, knew he had fallen down) Responsiveness: Awake Follows Commands: 1-step Commands, With Increased Time, With Repetition, Cueing Needed Cueing to Follow Commands: Moderate Attention Deficits: Distractible, Divided Memory Deficits: Short Term, Wire Spring Relay Adjuster, Recall of Recent Events, Recall of Medical/Personal History Executive Function Deficits: Safety Awareness, Judgement, Insight to Deficits, Problem Solving Confusion Assessment Method (CAM - ICU Score): (!) Positive (04/25/25) THERAPY DIAGNOSIS Reduced mobility-other, Decreased activities of daily living (ADL), Muscle Weakness (generalized), Signs and Symptoms Involving Cognitive Functions and Awareness, Lack of coordination-other, Unsteadiness on feet TREATMENT INTERVENTIONS Evaluation, Therapeutic Activity (12280) Timed Code Treatment (minutes): 11 Skilled Treatment Time (minutes): 26 $ Evaluation - Moderate (76887) Billed Units: 1 unit Therapeutic Activity (33575) Treatment Minutes: 11 $ Therapeutic Activity (25627) Billed Units: 1 unit TRAINING AND EDUCATION PROVIDED Activity Adaptation/Compensatory Strategies, Bed Mobility, Benefits of In-Hospital Mobility, Adaptive Equipment/DME, Delirium Reduction Techniques, Command Following, Functional Mobility Involving ADLs, Lower Extremity Dressing, Insight into Deficits, Role of Occupational Therapy, Safety/Judgment, Sitting Balance to Improve [place] with ADLs/Self-Care, Standing Balance to Improve [place] with ADLs/Self-Care, Toileting THERAPEUTIC SKILLS USED Activity Dosing, Cues for Sequencing/Proper Technique for Activity, Cuing Verbal, Cuing Tactile, Cuing Visual, Movement Facilitation, Physical Assist, Therapeutic Use of Self, Teach-Back for Education FUNCTIONAL STATUS Activities of Daily Living Assist Level Additional Information Feeding Minimal Assistance Grooming Minimal Assistance Bathing Upper Body Maximal Assistance Bathing Lower Body Total Assistance Dressing Upper Body Maximal Assistance Dressing Lower Body Total Assistance (more content not included)... Normal [facility] CAROTID BILon 04-25-2025 CAROTID DANIELLE * * *Final Report* * * DATE OF EXAM: Apr 25 2025 11:02AM A2U 1077 - CAROTID DANIELLE / PROCEDURE REASON: synvope * * * * Physician Interpretation * * * * Non-Invasive Vascular Laboratory [facility] Carotid Duplex Bilateral/Complete Date of service/time: 04/25/2025 10:04:00 AM HOSPITAL Name: MR. PATRICIO PADRON Date of : 1955 Age: 70 years Gender: M Medical History Tobacco: Current Clinical Indication Syncope. TECHNIQUE -------- A carotid duplex ultrasound examination was performed, including grayscale imaging and color Doppler and spectral Doppler examination of the below mentioned arteries. FINDINGS -------- RIGHT SIDE Common carotid artery: Origin: PSV: 94 cm/s. EDV: 8 cm/s. Proximal: PSV: 94 cm/s. EDV: 17 cm/s. Mid: PSV: 71 cm/s. EDV: 15 cm/s. Distal: PSV: 60 cm/s. EDV: 14 cm/s. Internal carotid artery: Origin: PSV: 47 cm/s. EDV: 14 cm/s. Proximal: PSV: 55 cm/s. EDV: 21 cm/s. Mid: PSV: 49 cm/s. EDV: 14 cm/s. Distal: PSV: 36 cm/s. EDV: 14 cm/s. ICA/CCA Ratio: 0.9 External carotid artery: Proximal: PSV: 49 cm/s. EDV: 11 cm/s. Subclavian artery: Proximal: PSV: 68 cm/s. EDV: 10 cm/s. Innominate artery: PSV: 33 cm/s. EDV: 7 cm/s. Vertebral artery: Mid: PSV: 36 cm/s. EDV: 8 cm/s. LEFT SIDE Common carotid artery: Proximal: PSV: 103 cm/s. EDV: 22 cm/s. Mid: PSV: 52 cm/s. EDV: 13 cm/s. Distal: PSV: 56 cm/s. EDV: 15 cm/s. Internal carotid artery: Origin: PSV: 44 cm/s. EDV: 21 cm/s. Proximal: PSV: 52 cm/s. EDV: 18 cm/s. Mid: PSV: 54 cm/s. EDV: 17 cm/s. Distal: PSV: 43 cm/s. EDV: 14 cm/s. ICA/CCA Ratio: 0.9 External carotid artery: Proximal: PSV: 67 cm/s. EDV: 11 cm/s. Mild homogeneous laminated plaque at origin. Subclavian artery: Mid: PSV: 62 cm/s. EDV: 0 cm/s. Vertebral artery: Mid: PSV: 50 cm/s. EDV: 12 cm/s. IMPRESSION Please note: the new carotid interpretation criteria are used as recommended by [employer] Commission. RIGHT SIDE Common carotid artery: Patent. Internal carotid artery: Normal study. External carotid artery: Patent. Vertebral artery: Patent and antegrade flow noted. Innominate artery: Patent. Subclavian artery: Patent. LEFT SIDE Common carotid artery: Patent. Internal carotid artery: Normal study. External carotid artery: Patent. Vertebral artery: Patent and antegrade flow noted. Subclavian artery: Patent. Technologist: Brandin Emanuel RVT Ordering physician: DARRIUS REESE Interpreting physician: Roberta Larson DO * * * Final * * * RP Septic Tank Setter: DANN Transcribe Date/Time: Apr 25 2025 10:04A Dictated by : ROBERTA LARSON DO This examination was interpreted and the report reviewed and electronically signed by: ROBERTA LARSON DO on Apr 25 2025 2:36PM EST [id number] [facility] HEALTHon 04-24-2025 ALLIED [facility] HNO ID: [id number] Author: ROYA LAZCANO Tech Service: ? Author Type: Technologist Type: Allied Health Filed: 04/24/2025 15:04 Note Text: Radiology Service Progress Note PATIENT NAME: Patricio Padron DATE OF SERVICE: April 24, 2025 TIME: 3:04 PM PATIENT IDENTITY VERIFICATION COMPLETED USING TWO (2) IDENTIFIERS: Name and Date of confirmed by patient verbally and Name and Date of confirmed by identification band. FALL SCREENING: Has the patient had 2 falls in the last year or 1 fall with injury or currently using an Ambulatory Assistive Device (Walker, Cane, Wheelchair, Crutches, etc.)? Inpatient: Screened on floor PATIENT GENDER DATA: Assigned male at PATIENT RELEVANT IMPLANT DATA REVIEWED: Yes PATIENT PRESENTS WITH AN IMPLANTABLE OR ATTACHED PSYCHOPAEDIC NURSE: No RADIOLOGY DEPARTMENT: CT; Exam(s) Completed: Brain PERIPHERAL IV DATA: Inpatient: see LDA documentation SIGNED BY: Jodi Tello April 24, 2025 3:04 PM Normal [facility] HNO ID: [id number] Author: ASHLEY MCNEILL RT(R) Service: Radiology Author Type: [address] Type: Allied Health Filed: 04/24/2025 08:23 Note Text: Radiology Service Progress Note DATE OF SERVICE: April 24, 2025 TIME: 8:23 AM PATIENT IDENTITY VERIFICATION COMPLETED USING TWO (2) STANDARD IDENTIFIERS: Name and Date of confirmed by patient verbally. FALL SCREENING: Has the patient had 2 falls in the last year or 1 fall with injury or currently using an Ambulatory Assistive Device (Walker, Cane, Wheelchair, Crutches, etc.)? Emergency Room Patient: Screened in ED PATIENT GENDER DATA: Assigned male at PATIENT RELEVANT IMPLANT DATA REVIEWED: Not Applicable PATIENT PRESENTS WITH AN IMPLANTABLE OR ATTACHED PSYCHOPAEDIC NURSE: No ALLERGIES: Reviewed and unchanged CONTRAST ALLERGY: NO. EXAM: CT -CONTRAST INDUCED NEPHROPATHY RISK FACTORS: Not applicable CREATININE: Creatinine Date Value Ref Range Status 02/08/2025 0.65 (L) 0.73 - 1.22 mg/dL Final 07/04/2024 0.78 0.73 - 1.22 mg/dL Final 09/19/2023 0.77 0.73 - 1.22 mg/dL Final Estimated Glomerular Filtration Rate Date Value Ref Range Status 02/08/2025 101 >=60 mL/min/1.73m? Final Comment: Estimated Glomerular Filtration Rate (eGFR) is calculated using the 2020 CKD-EPI creatinine equation. This equation utilizes serum creatinine, sex, and age as parameters. The creatinine assay has traceable calibration to isotope dilution-mass spectrometry. Refer to KDIGO guidelines for clinical interpretation. In patients with unstable renal function, e.g. those with acute kidney injury, the eGFR may not accurately reflect actual GFR. eGFR- Date Value Ref Range Status 08/19/2021 >60 Final P.O.C.T. RESULTS: POC done: Yes, See Lab Tab April 24, 2025 TREATMENT: N/A and No Hydration needed. PERIPHERAL IV DATA: Inpatient - refer to LDA documentation RADIOLOGY DEPARTMENT: CT; Exam(s) Completed: Brain , Chest Abdomen Pelvis, and Spine SIGNATURE: RT Taty(R) PATIENT NAME: Patricio Padron DATE: April 24, 2025 TIME: 8:23 AM Normal [facility] Absolute lymphocyte countOrd ered By: Mat Delaney on 04-24-2025 Lymphocytes Auto (Unsp spec) [#/Vol] 2.76 10*3/uL 0.83-4.51 [facility] Absolute neutrophil countOrd ered By: Mat Delaney on 04-24-2025 Neutrophils (Bld) [#/Vol] 5.0 10*3/uL 2.0-7.7 [facility] Anion gap in Serum or Plasma Ordered By: Mat Delaney on 04-24-2025 Anion gap [Moles/Vol] 12 mmol/L 5-15 [facility] Automated lymphocyte count a s percentage of total leukocytesOrdered By: Mat Delaney on 04-24-2025 Lymphocytes/100 WBC Auto (Unsp spec) 30.9 % 19-41 [facility] BUN/creatinine ratioOrdered By: Mat Delaney on 04-24-2025 Urea nitrogen/Creatinine [Mass ratio] 8.9 mg/mg Low 10-20 [facility] Basic Metabolic Profile (BMP )on 04-24-2025 BUN/CRE 8.9 RATIO Low 10- [facility] Comment on above: Performed By: #### L 100.0100, L500.2500 #### [facility] Laboratory [address] [place], [address] Calcium [Mass/Vol] 9.3 mg/dL Normal 7.6-11.0 [facility] Comment on above: Performed By: #### L 100.0100, L500.2500 #### [facility] [address] [place], [address] Chloride [Moles/Vol] 105 mmol/L Normal 98-108 [facility] Comment on above: Performed By: #### L 100.0100, L500.2500 #### [facility] [address] [place], [address] CO2 [Moles/Vol] 22.9 mmol/L Normal 21.0-32.0 [facility] Comment on above: Performed By: #### L 100.0100, L500.2500 #### [facility] [address] [place], [address] Creatinine [Mass/Vol] 0.87 mg/dL Normal 0.70-1.20 [facility] Comment on above: Performed By: #### L 100.0100, L500.2500 #### [facility] [address] [place], [address] ECRCL 67.74 ml/min Normal 50-250 [facility] Comment on above: Performed By: #### L 100.0100, L500.2500 #### [facility] [address] [place], [address] GAP 12 Normal 5-15 [facility] Comment on above: Performed By: #### L 100.0100, L500.2500 #### [facility] [address] [place], [address] GFR/1.73 sq M.predicted among non-blacks MDRD (S/P/Bld) [Vol rate/Area] 92 mL/min/{1.73_m2} Normal >60 [facility] Comment on above: Result Comment: mL/m in/1.73m2 CKD-EPI Creatinine Equation (2020) Performed By: #### L 100.0100, L500.2500 #### [facility] [address] [place], [address] Glucose [Mass/Vol] 114 mg/dL High 70-99 [facility] Comment on above: Performed By: #### L 100.0100, L500.2500 #### [facility] [address] [place], [address] Potassium [Moles/Vol] 3.9 mmol/L Normal 3.3-5.1 [facility] Comment on above: Performed By: #### L 100.0100, L500.2500 #### [facility] [address] [place], [address] Sodium [Moles/Vol] 140 mmol/L Normal 133-145 [facility] Comment on above: Performed By: #### L 100.0100, L500.2500 #### [facility] [address] [place], [address] Urea nitrogen [Mass/Vol] 8 mg/dL Normal 4-19 [facility] Comment on above: Performed By: #### L 100.0100, L500.2500 #### [facility] [address] [place], [address] Basophil percentageOrdered B y: Mat Delaney on 04-24-2025 Basophils/100 WBC (Bld) 0.8 % 0-1 [facility] Brain/Head without Contrasto n 04-24-2025 Brain/Head without Contrast [facility] Imaging Services [address] [facility] [place] [address] Brain/Head without Contrast MR#: [id number] Acct: [id number] Name: PATRICIO PADRON Rep #: [id number] : 1955 M 70 From: Giselle Prado MD PCP: Dr. Yanet Adams MD Status: REG ER Study: Brain/Head without Contrast Date of Exam: 07/11 Exam# [id number] Ordering Dr: Mat Delaney DO ADDENDUM by Dr. Giselle Prado MD on 04/24/25 at 0629 Review of the images with Dr. Delaney was performed. There is a thin acute/subacute subdural hematoma over the right frontotemporal region. There is no significant mass effect. There is 5 mm of midline shift. IMPRESSION 1. Thin, acute/subacute subdural hematoma over the right frontotemporal region causing 5 mm of midline shift. 2. Cerebral atrophy. 3. Chronic left periventricular lacunar infarction. Note: The findings were discussed with Dr. Delaney in the [facility] emergency department on the morning of 04/24/2025 at 6:20 a.m.. Reading Location: [id number] 04/24/25 0629 Date cc: Dr. Mat Delaney DO; Dr. Yanet Adams MD * Signed PROCEDURE: BRAIN/HEAD WITHOUT CONTRAST 04/24/2025 REASON FOR EXAM: HEAD INJURY TECHNIQUE: BRAIN/HEAD WITHOUT CONTRAST Coronal and Sagittal reconstruction series were provided. One or more dose reduction techniques were used (e.g., Automated exposure control, adjustment of the mA and/or kV according to patient size, use of iterative reconstruction technique. RADIATION DOSE SUMMARY: CTDlvol: 65.50 mGy DLP: 1296.10 mGycm COMPARISON: CT head without contrast, 08/13/2024 FINDINGS: There is moderate diffuse cerebral atrophy with concomitant ventriculomegaly. There is focal low- density of the periventricular white matter of the left frontal lobe consistent with a chronic lacunar infarction. There is calcific vascular disease of the intracranial portion of both internal carotid arteries. There is no evidence of acute intracranial hemorrhage or infarction. There are no abnormal intracranial masses or mass effects. The basilar cisterns are unremarkable. The skull base and calvarium are normal. There is nasal septal deviation to the right. There is mucoperiosteal thickening of both frontal sinuses and multiple ethmoidal air cells bilaterally. There are multiple fluid-filled mastoid air cells on the right. The intraorbital contents are normal. The visualized extracranial soft tissues are normal. CT/Brain/Head without Contrast IMPRESSION: 1. No evidence of acute intracranial pathology. 2. Cerebral atrophy. 3. Chronic left periventricular lacunar infarction. Reading Location: [facility] CC: Dr. Mat Delaney DO; Dr. Yanet Adams MD Septic Tank Setter: Signed Normal [facility] CBC W/Diff, Automatedon 07-0 Absolute Lymph 2.76 X10 3/uL Normal 0.83-4.51 [facility] Comment on above: Performed By: #### L 100.0100, L500.2500 #### [facility] [address] [place], [place], [id number] Absolute Neut 5.0 X10 3/uL Normal 2.0-7.7 [facility] Comment on above: Performed By: #### L 100.0100, L500.2500 #### [facility] [address] [place], [address] Basophils/100 WBC (Bld) 0.8 % Normal 0-1 [facility] Comment on above: Performed By: #### L 100.0100, L500.2500 #### [facility] [address] [place], [address] Eosinophils/100 WBC (Bld) 3.3 % Normal 0-5 [facility] Comment on above: Performed By: #### L 100.0100, L500.2500 #### [facility] [address] [place], [address] Erythrocyte distribution width (RBC) [Ratio] 12.6 % Normal 11.6-14.6 [facility] Comment on above: Performed By: #### L 100.0100, L500.2500 #### [facility] [address] [place], [address] Hematocrit (Bld) [Volume fraction] 44.1 % Normal 40-54 [facility] Comment on above: Performed By: #### L 100.0100, L500.2500 #### [facility] [address] [place], [address] Hemoglobin (Bld) [Mass/Vol] 15.1 g/dL Normal 13.0-16.5 [facility] Comment on above: Performed By: #### L 100.0100, L500.2500 #### [facility] [address] [place], [address] IG% 0.600 Normal 0.0-0.9 [facility] Comment on above: Result Comment: IG% - Immature Granulocytes (promyelocytes, myelocytes and metamyelocytes) > 1% indicates that a LEFT SHIFT is Present. Performed By: #### L 100.0100, L500.2500 #### [facility] [address] [place], [address] Lymphocytes/100 WBC (Bld) 30.9 % Normal 19-41 [facility] Comment on above: Performed By: #### L 100.0100, L500.2500 #### [facility] [address] [place], [address] MCH (RBC) [Entitic mass] 30.4 pg Normal 27.0-32.0 [facility] Comment on above: Performed By: #### L 100.0100, L500.2500 #### [facility] [address] [place], [address] MCHC (RBC) [Mass/Vol] 34.2 g/dL Normal 32-36 [facility] Comment on above: Performed By: #### L 100.0100, L500.2500 #### [facility] [address] [place], [address] MCV (RBC) [Entitic vol] 88.9 fL Normal 80-94 [facility] Comment on above: Performed By: #### L 100.0100, L500.2500 #### [facility] [address] [place], [address] Monocytes/100 WBC (Bld) 8.7 % Normal 0-10 [facility] Comment on above: Performed By: #### L 100.0100, L500.2500 #### [facility] [address] [place], [address] Neutrophils/100 WBC (Bld) 55.7 % Normal 47-70 [facility] Comment on above: Performed By: #### L 100.0100, L500.2500 #### [facility] [address] [place], [address] Nucleated RBC (Bld) [#/Vol] 0 10*3/uL Normal 0-5 [facility] Comment on above: Performed By: #### L 100.0100, L500.2500 #### [facility] [address] [place], [address] Platelet mean volume (Bld) [Entitic vol] 9.7 fL Normal 6.2-12.0 [facility] Comment on above: Performed By: #### L 100.0100, L500.2500 #### [facility] [address] [place], [address] Platelets (Bld) [#/Vol] 246 10*3/uL Normal 150-450 [facility] Comment on above: Performed By: #### L 100.0100, L500.2500 #### [facility] [address] [place], [address] RBC (Bld) [#/Vol] 4.96 10*6/uL Normal 4.6-6.2 [facility] Comment on above: Performed By: #### L 100.0100, L500.2500 #### [facility] [address] [place], [address] RDW SD 41.1 fl Normal 35.1-43.9 [facility] Comment on above: Performed By: #### L 100.0100, L500.2500 #### [facility] [address] [place], [address] WBC (Bld) [#/Vol] 8.9 10*3/uL Normal 4.4-11.0 [facility] Comment on above: Performed By: #### L 100.0100, L500.2500 #### [facility] [address] [place], [address] CBC panel Auto (Bld)on 04-24 Erythrocyte distribution width (RBC) [Ratio] 12.4 % Normal 11.5-15.0 [facility] Comment on above: Order Comment: Speci men Type: BLOOD SPECIMENOrdering Facility: [facility] Address: [address] [place] [address] Performed By: #### 5 8410-2 ####[facility] [id number] [address] Hematocrit (Bld) [Volume fraction] 45.6 % Normal 39.0-51.0 [facility] Comment on above: Order Comment: Speci men Type: BLOOD SPECIMENOrdering Facility: [facility] Address: [address] [place] [address] Performed By: #### 5 8410-2 ####[facility]ORY[facility] [id number] [address] OF [facility] Hemoglobin (Bld) [Mass/Vol] 15.3 g/dL Normal 13.0-17.0 [facility] Comment on above: Order Comment: Speci men Type: BLOOD SPECIMENOrdering Facility: [facility] Address: [address] [place] [address] Performed By: #### 5 8410-2 ####[facility]ORY[facility] [id number] [address] STATES OF [facility] MCH (RBC) [Entitic mass] 30.4 pg Normal 26.0-34.0 [facility] Comment on above: Order Comment: Speci men Type: BLOOD SPECIMENOrdering Facility: [facility] Address: [address] [place] [address] Performed By: #### 5 8410-2 ####[facility]ORY[facility] [id number] [address] [place] MCHC (RBC) [Mass/Vol] 33.6 g/dL Normal 30.5-36.0 [facility] Comment on above: Order Comment: Speci men Type: BLOOD SPECIMENOrdering Facility: [facility] Address: [address] [place] [address] Performed By: #### 5 8410-2 ####[facility]ORY[facility] [id number] [address] [place] MCV (RBC) [Entitic vol] 90.7 fL Normal 80.0-100.0 [facility] Comment on above: Order Comment: Speci men Type: BLOOD SPECIMENOrdering Facility: [facility] Address: [address] [place] [address] Performed By: #### 5 8410-2 ####[facility]ORYCLIA [id number] [place] [address] [place] Nucleated RBC (Bld) [#/Vol] 10*3/uL Normal <0.01 [facility] Comment on above: Order Comment: Speci men Type: BLOOD SPECIMENOrdering Facility: [facility] Address: [address] [place] [address] Performed By: #### 5 8410-2 ####[facility]ORYCLIA [id number] [place] [address] [place] Platelet mean volume (Bld) [Entitic vol] 9.3 fL Normal 9.0-12.7 [facility] Comment on above: Order Comment: Speci men Type: BLOOD SPECIMENOrdering Facility: [facility] Address: [address] [place] [address] Performed By: #### 5 8410-2 ####[facility]ORYCL[facility] [id number] [place] [address] [place] Platelets (Bld) [#/Vol] 234 10*3/uL Normal 150-400 [facility] Comment on above: Order Comment: Speci men Type: BLOOD SPECIMENOrdering Facility: [facility] Address: [address] [place] [address] Performed By: #### 5 8410-2 ####[facility]ORYCLIA [id number] [place] [address] [place] RBC (Bld) [#/Vol] 5.03 10*6/uL Normal 4.20-6.00 [facility] Comment on above: Order Comment: Speci men Type: BLOOD SPECIMENOrdering Facility: [facility] Address: [address] [place] [address] Performed By: #### 5 8410-2 ####[facility]ORYCLIA [id number] [place] [address] [place] WBC (Bld) [#/Vol] 10.76 10*3/uL Normal 3.70-11.00 [facility] Comment on above: Order Comment: Speci men Type: BLOOD SPECIMENOrdering Facility: [facility] Address: [address] [place] [address] Performed By: #### [id number] ####[facility]ORATORYCLIA [id number] [place] [address] [facility] CNCRITCRon 04-24-2025 CNCRITCR Critical Care Transp ort (CCT) -- PATRICIO PADRON ([id number]) 1955 M Date Time Provider Department 04/24/25 PLACIDO DEMPSEY [facility] During your visit today, we recorded the following information about you: Placido Dempsey APRN.CNP 04/24/2025 9:01 AM Signed Critical Care Transport Note Patient Name: Patricio Padron Service Date: 04/24/2025 Referring Physician: Rich Accepting Physician: Aaron Referring Facility: [facility]: ER Accepting Facility: [facility]: SUBJECTIVE/CHIEF COMPLAINT: I fell REASON FOR TRANSPORT: Level 1 trauma services unavailable at the sending facility. History of Present Illness: The following history is what was known to CCT team at time of given care and summarized through review of available medical records, patient/family interview and from referring nursing report. Patricio Padron is a 70 year old male with a past medical history significant for ICH, dementia, HLD. He presented to [facility] on 04/24/2025 for evaluation of fall. Per report, pt fell this morning around 0445 striking his forehead. No LOC as witnessed by pt's . On ER evaluation, A/O x2 (person/place), however, this is normal for pt given h/o dementia. CT head performed noting right frontoparietal SDH w/ 5mm midline shift. Not taking any anticoagulants at this time. Pt loaded w/ Keppra for seizure prophylaxis. At this time [facility] was consulted and pt accepted for emergent transfer. At this time, the physician managing the patient requested transfer to [facility] for tertiary and/or quaternary services unavailable at the referring facility. Patient condition at time of exam was: Acutely ill and critically ill. Due to the unique circumstances of the patient, it was determined that this was the closest, most appropriate facility by referring physician. The physician managing the patient requested the [facility] Critical Care Transport Team transport and treat the patient for the purpose of tertiary care, evaluation, and management of his neuro-trauma condition(s). Air medical transport was requested to reduce the sov-[id number] time (12 minutes by air vs. approximately 43 minutes by ground) with the potential for increased ground transport time secondary to: traffic congestion and distance between facilities and the patient's condition requiring an emergent procedure or evaluation not available at the referring facility. REVIEW OF SYSTEMS: - CONSTITUTIONAL: Denies fevers, chills, nightsweats, activity change or unintended weight loss. - HEENT: Denies nasal congestion/sinus symptoms or problematic allergy issues. - CV: Denies chest pain, dyspnea, palpitations, orthopnea, PND or new/worsening peripheral edema. - PULM: Denies dyspnea, cough, or chest tightness. - GI: Denies nausea or vomiting, ABD pain, distension, blood in stool or trouble swallowing. - : Denies dysuria, frequency, urgency, hematuria, or flank pain. - NEURO: Denies SAUCEDA, lightheadedness, dizziness, blurred vision, diplopia, peripheral weakness/paresthesia's, or syncope. - MUSC-SKEL: Denies muscle aches/pains, neck pain or stiffness or joint pains/swelling. - PSY: No concerns regarding depression, anxiety or panic. - SKIN: Denies color change, pallor or rash. PAST MEDICAL HISTORY: Dementia, Hyperlipidemia PAST MEDICAL HISTORY Diagnosis Date Arthritis BPH with obstruction/lower urinary tract symptoms Renal lesion 07/26/2023 Rosacea Subarachnoid hemorrhage (HCC) 08/11/2023 PAST SURGICAL HISTORY: PAST SURGICAL HISTORY Procedure Laterality Date PAST SURGICAL HISTORY OF flexible cystoscopy PAST SURGICAL HISTORY OF 1959 tonsillectomy PAST SURGICAL HISTORY OF 2018 left eye surgery PAST SURGICAL HISTORY OF 2023 Surgery to drain hematoma on brain- not successful TRANSURETHRAL ELEC-SURG PROSTATECTOM N/A 08/18/2021 TRANSURETHRAL ELEC-SURG PROSTATECTOM 2019 ALLERGIES: PCN SOCIAL HISTORY: Social History Tobacco Use Smoking status: Every Day Current packs/day: 0.50 Average packs/day: 0.5 packs/day for 20.0 years (10.0 ttl pk-yrs) Types: Cigarettes Smokeless tobacco: Former Vaping Use Vaping status: Never Used Substance Use Topics Alcohol use: Not Currently Drug use: Never HOME MEDICATIONS: Unknown (no list provided). Medications Administered by Referring Facility: - Keppra 1000mg IV OBJECTIVE: Recent Labs, Diagnostics AND Procedure Reports reviewed as available. Referring Facility Labs No lab data provided for review. Diagnostics AND Procedure Reports ECG: Personally Reviewed - SR on bedside tele/CCT monitor. CT Scan (Head): Radiology Interpretation - Right frontalparietal subdural hemorrhage w/ 5mm midline shift. Invasive Lines/Devices/Tubes Placed by Referring Facility: - PIV x1 PHYSICAL EXAM: Upon CCT Ar (more content not included)... Normal [facility] CONSULTon 04-24-2025 CONSULT HNO ID: [id number] Author: MICHELLE SNIDER DO Service: General Surgery Author Type: Resident Type: Consults Filed: 04/24/2025 13:12 Note Text: -- Attestation signed by Matt Messina MD at 04/26/2025 8:44 PM Attending attestation: I spent 36 minutes providing direct care, and high complexity medical decision to this critically ill patient for the treatment or prevention of organ failure. This includes review of recent events, clinical examination, review of data on multiple locations, discussing the plan of care with the members of the multidisciplinary ICU team and documentation. This patient is in critical crisis today because of the following, which is an imminent risk to their life without the following immediate intervention: 1. ICH meeting repeat CTH and close neuro monitoring and work up fo possible coagulapathy I personally performed the walker portions of the evaluation and management of this patient during this period of time. I have reviewed the resident's note and concur with their examination and management plans Matt MD Jim -- Surgical Intensive Care Unit Consult Note SERVICE DATE: 04/24/2025 SERVICE TIME: 12:57 PM REASON FOR CONSULT: SDH following GLF REQUESTING PHYSICIAN: Trauma Subjective 70 year old male with a past medical history of HLD and dementia presents as a level 1 trauma transfer from [place] secondary to SDH. Per report, patient had a fall from standing at his facility around 4:00 this morning. He does not recall the event. He is not on the loss of consciousness. He is not on any blood thinners. He has limited participation in exam secondary to his mental status. He underwent CT imaging at [place] that demonstrated right-sided SDH with midline shift however repeat imaging at [facility], while did demonstrate a SDH, there was no midline shift noted. No acute neurologic deficits noted. Given SDH, trauma and SICU were consulted for further assistance in management. FUNCTIONAL STATUS: Partially dependent PAST MEDICAL HISTORY Diagnosis Date Arthritis BPH with obstruction/lower urinary tract symptoms Renal lesion 07/26/2023 Rosacea Subarachnoid hemorrhage (HCC) 08/11/2023 PAST SURGICAL HISTORY Procedure Laterality Date PAST SURGICAL HISTORY OF flexible cystoscopy PAST SURGICAL HISTORY OF 9 tonsillectomy PAST SURGICAL HISTORY OF 2018 left eye surgery PAST SURGICAL HISTORY OF 2023 Surgery to drain hematoma on brain- not successful TRANSURETHRAL ELEC-SURG PROSTATECTOM N/A 08/18/2021 TRANSURETHRAL ELEC-SURG [...] use: Never (Not in a hospital admission) Current Facility-Administered Medications Medication Dose Route Frequency NaCl 0.9% iv flush bag 20 mL INTRAVENOUS PRN iv contrast (radiology procedure) INTRAVENOUS DIRECTED PRN iv contrast (radiology procedure) INTRAVENOUS DIRECTED PRN levETIRAcetam 1,000 mg injection (KEPPRA) 1,000 mg INTRAVENOUS BID pravastatin 40 mg tab(s) (PRAVACHOL) 40 mg ORAL DAILY memantine 5 mg tab(s) (NAMENDA) 5 mg ORAL BID ondansetron 4 mg tab(s) (ZOFRAN) 4 mg ORAL q 6 H PRN Or ondansetron (PF) 4 mg injection (ZOFRAN) 4 mg INTRAVENOUS q 6 H PRN oxyCODONE IR 5-10 mg tab(s) (ROXICODONE) 5-10 mg ORAL q 4 H PRN acetaminophen 975 mg tab(s) (TYLENOL) 975 mg ORAL QID potassium chloride 20-40 mEq oral powder (KLOR-CON) 20-40 mEq ORAL/FEEDING TUBE PRN Or potassium chloride iv piggyback 20 mEq/100 mL 20 mEq INTRAVENOUS PRN sodium phosphate 30 mmol in D5W 250 mL 30 mmol INTRAVENOUS PRN(NO DISPENSE) Or sodium phosphate 45 mmol in D5W 250 mL 45 mmol INTRAVENOUS PRN(NO DISPENSE) magnesium sulfate iv piggyback in sterile water 2 g 50 mL 2 g INTRAVENOUS PRN calcium gluconate iv piggyback 2 g in NaCl (iso-osmotic) 100 mL 2 g INTRAVENOUS PRN(NO DISPENSE) Allergies As of Date: 04/24/2025 (No Known Allergies) Fully Assessed 04/24/2025 COMPLETE REVIEW OF SYSTEMS: GENERAL: No weight loss, malaise or fevers. HEENT: Negative for frequent or significant headaches, No changes in hearing or vision, no nose bleeds or other nasal problems. NECK: Negative for lumps, goiter, pain and significant neck swelling. RESPIRATORY: Negative for cough, hemoptysis, wheezing, COPD, dyspnea or shortness of breath. CARDIOVASCULAR: Negative for chest pain, leg swelling, hypertension, CHF or palpitations. GI: No (more content not included)... Normal [facility] CONSULT HNO ID: [id number] Author: JEANETTE LEBLANC MD Service: Neurosurgery Author Type: Physician Type: Consults Filed: 04/24/2025 18:57 Note Text: CONSULT: NEUROSURGERY SERVICE Patient Name: Patricio Padron Date of : 1955 SERVICE DATE: 04/24/2025 SERVICE TIME: 10:36 AM REASON FOR CONSULT: SDH REQUESTING PHYSICIAN: Dr Reese PRIMARY CARE PHYSICIAN: Yanet Adams MD Consultation requested by Dr. Reese for an opinion regarding SDH. My final recommendations will be communicated back to the requesting physician by way of shared Medical record or letter to requesting physician via [place] mail. CHIEF COMPLAINT: GLF HISTORY OF PRESENT ILLNESS : Patricio Padron is a 70 year old male presenting as a level 1 trauma transfer from [place] following a GLF. Per report patient fell from standing and hit his head on the ground earlier this morning at 0400. Pt does not recall the event. Unknown LOC. He presented to [place] and was found to have a thin acute R convexity SDH. He was given 1g of keppra and transferred to [facility]. GCS 15 on arrival. Denies use of anticoagulants or antiplatelets. PAST MEDICAL HISTORY Diagnosis Date Arthritis BPH with obstruction/lower urinary tract symptoms Renal lesion 07/26/2023 Rosacea Subarachnoid hemorrhage (HCC) 08/11/2023 PAST SURGICAL HISTORY Procedure Laterality Date PAST SURGICAL HISTORY OF flexible cystoscopy PAST SURGICAL HISTORY OF 1958 tonsillectomy PAST SURGICAL HISTORY OF 2017 left eye surgery PAST SURGICAL HISTORY OF 2023 Surgery to drain hematoma on brain- not successful TRANSURETHRAL ELEC-SURG PROSTATECTOM N/A 08/18/2021 TRANSURETHRAL ELEC-SURG PROSTATECTOM 2019 FAMILY HISTORY Problem Relation Age of Onset Arthritis Mother Cancer Mother melanoma Heart Mother Viral myocarditis. GI Father ulcers ALLERGIES No Known Allergies Current Facility-Administered Medications Medication Dose Route Frequency Provider Last Rate Last Admin NaCl 0.9% iv flush bag 20 mL INTRAVENOUS PRN Elena Pizarro MD iv contrast (radiology procedure) INTRAVENOUS DIRECTED PRN Elena Pizarro MD iv contrast (radiology procedure) INTRAVENOUS DIRECTED PRN Elena Pizarro MD levETIRAcetam 1,000 mg injection (KEPPRA) 1,000 mg INTRAVENOUS BID Smitha Brown PA-C Current Outpatient Medications Medication Sig Dispense Refill lansoprazole (PREVACID) 30 mg capsule Take 1 capsule by mouth once daily. 30 capsule 11 cholecalciferol (VITAMIN D3) 50 mcg (2,000 unit) tablet Take 1 tablet by mouth once daily. 30 tablet 11 memantine (NAMENDA) 5 mg tablet Take 1 tablet by mouth two times a day. 60 tablet 5 terazosin (HYTRIN) 5 mg capsule Take 1 capsule by mouth daily at bedtime. 90 capsule 3 pravastatin (PRAVACHOL) 40 mg tablet Take 1 tablet by mouth once daily. 90 tablet 3 acetaminophen (TYLENOL) 325 mg tablet Take 2 tablets by mouth every 6 hours as needed for Pain. 0 COMPLETE REVIEW OF SYSTEMS Unable to obtain MEDS: Current Facility-Administered Medications Medication Dose Route Frequency NaCl 0.9% iv flush bag 20 mL INTRAVENOUS PRN iv contrast (radiology procedure) INTRAVENOUS DIRECTED PRN iv contrast (radiology procedure) INTRAVENOUS DIRECTED PRN levETIRAcetam 1,000 mg injection (KEPPRA) 1,000 mg INTRAVENOUS BID OBJECTIVE: BP 113/82 Pulse 91 Temp 98.7 Resp 10 SpO2 96% O2 Therapy: Room Air IANDO: Recent Labs 04/24/25 0809 NA 142 K 4.5 CHLOR 106 CO2 21* BUN 7* CREAT 0.76 GLUC 112* ANION 15 CA 9.2 ALB 3.8* AST 20 ALT 19 ALKPHOS 87 TBILI 0.4 WBC 10.76 HB 15.3 HCT 45.6 PLT 234 INR 1.0 PHYSICAL EXAM: GENERAL: awake and alert, cooperative HEENT: normocephalic, small frontal abrasion LUNGS: Unlabored, regular breathing NECK/BACK: +c collar present CARDIAC: rate as above EXTREMITIES: MINER, No deformities, No edema SKIN: Skin color, texture, turgor normal NEUROLOGICAL: GCS 15 Mental Status: AAOx 3; follows commands Speech: fluent and clear Motor Exam: Strength 5/5 in all extremities Sensation: No sensory deficits DIAGNOSTICS: Imaging: IMPRESSION: Small right temporal subdural hematoma with minimal extension superiorly above the temporal region. Relatively little associated mass effect. Findings were discussed by telephone with Dr. Bejarano in the emergency department at approximately 0830 hours on 04/24/2025. Emergency department personnel were aware of this finding. ASSESSMENT AND PLAN: There are no active hospital problems to display for this patient. Patricio Padron is a 70 year old male presenting as a trauma transfer from [place] following GLF. Found to have thin acute R temporal SDH. - neuro as above - admit to ICU under SICU/trauma - frequent neuro checks - rCTH 3pm - keppra 1g bid x 7 days - HOB >30 - dvt ppx - hold Discussed with staff: Dr. Leblanc SIGNATURE: Smitha Brown PA-C PAGER: [phone] DATE: 04/24/2025 MRN (more content not included)... Normal [facility] CT ABD/PEL W IVCONon 025 CT ABD/PEL W IVCON * * *Final Report* * * DATE OF EXAM: Apr 24 2025 8:26AM [facility] 0530 - CT ABD/PEL W IVCON / PROCEDURE REASON: Abdominal trauma, blunt * * * * Physician Interpretation * * * * EXAMINATION: CT ABDOMEN AND PELVIS WITH IV CONTRAST CLINICAL HISTORY: Pain. Injury. TECHNIQUE: CT of the abdomen and pelvis was performed using standard technique, scanning from just above the dome of the diaphragm to the symphysis pubis. MQ: CTAP_3 Contrast: IV: 100 ml of Omnipaque 350 CT Radiation dose: Integrated Dose-length product (DLP) for this visit = 2317 mGy*cm. CT Dose Reduction Employed: Automated exposure control(AEC) and iterative recon COMPARISON: July 15, 2021. RESULT: Liver: No mass. No evidence of acute injury. Biliary: No bile duct dilation. Probable cholelithiasis. Spleen: No mass. No splenomegaly. No acute injury noted. Pancreas: No mass or duct dilation. Multiple small calcifications consistent with chronic pancreatitis. Adrenals: No mass. Kidneys: No evidence of acute injury. Nonobstructing calculi in the left kidney. Small cysts in the left kidney. GI tract: No dilation or wall thickening. Colonic diverticulosis. Lymph nodes: No abdominal or pelvic lymphadenopathy. Mesentery/Peritoneum: No ascites or mass. Retroperitoneum: No mass. Vasculature: Moderate to advanced generalized calcific atherosclerosis. No evidence of acute injury. Pelvis: Calculus in the urinary bladder measuring up to approximately 11 mm in maximum transverse dimension. Bones/Soft Tissues: No obvious acute findings. Degenerative changes in the lumbar spine. Lower thorax: A chest CT performed will be reported separately. Localizer images: No additional findings. IMPRESSION: Chronic findings including left renal calculi and a bladder calculus. Colonic diverticulosis. Cholelithiasis. No acute injury identified. Septic Tank Setter: ANKIT Transcribe Date/Time: Apr 24 2025 8:45A Dictated by : SANGEETA SALMERON MD This examination was interpreted and the report reviewed and electronically signed by: SANGEETA SALMERON MD on Apr 24 2025 8:48AM EST [id number] Normal [facility] CT BRAIN WO IVCONon 04-24-20 CT BRAIN WO IVCON * * *Final Report* * * DATE OF EXAM: Apr 24 2025 3:05PM [facility] 0504 - CT BRAIN WO IVCON / PROCEDURE REASON: Subdural hematoma * * * * Physician Interpretation * * * * EXAMINATION: CT BRAIN WO IVCON CLINICAL HISTORY: Follow-up subdural hematoma. TECHNIQUE: Serial axial images without IV contrast were obtained from the vertex to the foramen magnum. MQ: CTBWO_3 CT Radiation dose: Integrated Dose-Length Product (DLP) for this visit = 875 mGy*cm CT Dose Reduction Employed: Automated exposure control(AEC) and iterative recon COMPARISON: 04/24/2025 at 8:12 AM. RESULT: Acute change: No evidence of an acute infarct or other acute parenchymal process. Hemorrhage: No appreciable change in the 5 mm thick the subdural hematoma along the right cerebral convexity. No CT evidence of new intracranial hemorrhage. Mass Lesion / Mass Effect: There is no evidence of an intracranial mass or extraaxial fluid collection. No significant mass effect. Chronic change: Scattered patchy foci of low attenuation are present within the supratentorial white matter, a nonspecific finding that most commonly represents mild small vessel disease. Parenchyma: There is moderate generalized volume loss. Ventricles: Ventricular enlargement concordant with the degree of parenchymal volume loss. Paranasal sinuses and skull base: Mild nonspecific bilateral mastoid fluid. No significant paranasal sinus disease. The skull base and imaged soft tissues are unremarkable. IMPRESSION: 1. No appreciable change in 5 mm thick subdural hematoma along right cerebral convexity. No CT evidence of new intracranial hemorrhage. 2. No CT evidence of acute cortical infarct. 3. Chronic small vessel ischemic white matter disease and diffuse cerebral volume loss. Septic Tank Setter: ANKIT Transcribe Date/Time: Apr 24 2025 3:50P Dictated by : KRISTI BELLE MD This examination was interpreted and the report reviewed and electronically signed by: KRISTI BELLE MD on Apr 24 2025 3:57PM EST [id number] Normal [facility] CT BRAIN WO IVCON * * *Final Report* * * DATE OF EXAM: Apr 24 2025 8:26AM [facility] 0504 - CT BRAIN WO IVCON / PROCEDURE REASON: Head trauma, moderate-severe * * * * Physician Interpretation * * * * EXAMINATION: CT BRAIN WO IVCON CLINICAL HISTORY: Pain. Head injury. TECHNIQUE: Serial axial images without IV contrast were obtained from the vertex to the foramen magnum. MQ: CTBWO_3 CT Radiation dose: Integrated Dose-Length Product (DLP) for this visit = 2317 mGy*cm CT Dose Reduction Employed: Automated exposure control(AEC) and iterative recon COMPARISON: November 21, 2023. RESULT: Localizer images: No additional findings. Post-operative change: None. Acute change: No evidence of an acute infarct or other acute parenchymal process. Hemorrhage: There is a thin subdural hematoma in the right cerebral hemisphere, most prominent in the right temporal region. Maximum thickness of the hematoma is approximately 6 mm. No significant mass effect on the hemorrhage. ECASS hemorrhagic transformation score: Not Applicable Mass Lesion / Mass Effect: There is no evidence of an intracranial mass or extraaxial fluid collection. No significant mass effect. Chronic change: Patchy foci of low attenuation are present within the supratentorial white matter, a nonspecific finding that most commonly represents moderate small vessel disease. Parenchyma: There is moderate generalized volume loss. The brain parenchyma is otherwise within normal limits for age. Ventricles: Ventricular enlargement concordant with the degree of parenchymal volume loss. Paranasal sinuses and skull base: The visualized paranasal sinuses are grossly clear. The skull base and imaged soft tissues are unremarkable. IMPRESSION: Small right temporal subdural hematoma with minimal extension superiorly above the temporal region. Relatively little associated mass effect. Findings were discussed by telephone with Dr. Bejarano in the emergency department at approximately 0830 hours on 04/24/2025. Emergency department personnel were aware of this finding. Septic Tank Setter: ANKIT Transcribe Date/Time: Apr 24 2025 8:27A Dictated by : SANGEETA SALMERON MD This examination was interpreted and the report reviewed and electronically signed by: SANGEETA SALMERON MD on Apr 24 2025 8:33AM EST [id number] Normal [facility] CT CERVICAL SPINE WO IVCONon 04-24-2025 CT CERVICAL SPINE WO IVCON * * *Final Report* * * DATE OF EXAM: Apr 24 2025 8:26AM [facility] 0505 - CT CERVICAL SPINE WO IVCON / PROCEDURE REASON: Spine fracture, cervical, traumatic * * * * Physician Interpretation * * * * EXAMINATION: CT CERVICAL SPINE WO IVCON CLINICAL HISTORY: Spine fracture, cervical, traumatic Comparison: September 19, 2023. TECHNIQUE: 1.5 mm axial images were obtained through the cervical spine. No intravenous contrast was administered. Coronal and sagittal reconstructions were created and reviewed. FINDINGS: No fractures identified. There is no significant subluxation. There are moderate to advanced degenerative changes throughout cervical spine. There are degenerative changes at the atlantoaxial articulation. Otherwise, the craniocervical junction appears intact. Perivertebral soft tissue show no clear evidence of injury. IMPRESSION: No acute osseous abnormality identified. Septic Tank Setter: PSCB Transcribe Date/Time: Apr 24 2025 8:33A Dictated by : SANGEETA SALMERON MD This examination was interpreted and the report reviewed and electronically signed by: SANGEETA SALMERON MD on Apr 24 2025 8:39AM EST [id number] Normal [facility] CT CHEST W IVCONon CT CHEST W IVCON * * *Final Report* * * DATE OF EXAM: Apr 24 2025 8:26AM [facility] 0539 - CT CHEST W IVCON / PROCEDURE REASON: Chest trauma, blunt * * * * Physician Interpretation * * * * EXAMINATION: CHEST CT WITH CONTRAST CLINICAL HISTORY: Pain. Chest injury. Technique: Spiral CT acquisition of the chest from the thoracic inlet to the upper abdomen following IV contrast. MQ: CTCW_6 Contrast: 100 mL Omnipaque [address] Radiation dose: Integrated Dose-length product (DLP) for this visit = 2317 mGy*cm CT Dose Reduction Employed: Automated exposure control(AEC) and iterative recon Comparison: January 09, 2023. RESULT: Limitations: None. Lines, tubes, and devices: None. Lung parenchyma and airways: Patchy areas of scarring in the lungs as well as mild dependent atelectasis. No acute infiltrate or contusion. 12 mm nodular density in the right lung base posteriorly which could be related to scarring or atelectasis. Attention on follow-up is recommended. Stable subcentimeter nodule in the upper lobe the left lung. Pleural space: No pleural effusion or pneumothorax. Lower neck, lymph nodes, and mediastinum: Visualized lower neck structures appear grossly intact. No thoracic lymphadenopathy is noted. Possible small hiatal hernia. Heart, pericardium, and thoracic vessels: Thoracic aorta demonstrates no acute changes. No aneurysm or evidence of dissection. Cardiac size is within normal limits. No pericardial effusion. Moderate coronary artery calcifications. Bones and soft tissues: No definite acute findings. Degenerative changes in the visualized portions of spine. Upper abdomen: Dedicated CT of the abdomen was performed and will be reported separately. Localizer images: No additional findings. IMPRESSION: No definite acute traumatic injury in the chest. Chronic findings as noted in the body of the report. Septic Tank Setter: [facility] Transcribe Date/Time: Apr 24 2025 8:39A Dictated by : SANGEETA SALMERON MD This examination was interpreted and the report reviewed and electronically signed by: SANGEETA SALMERON MD on Apr 24 2025 8:44AM EST [id number] Normal [facility] Carbon dioxide, total [Moles /volume] in Central venous bloodOrdered By: Mat Delaney on 04-24-2025 CO2 [Moles/Vol] 22.9 mmol/L 21.0-32.0 [facility] Chloride assayOrdered By: Abigail Delaney on 04-24-2025 Chloride [Moles/Vol] 105 mmol/L 98-108 [facility] Comprehensive metabolic 2000 panelon 04-24-2025 Albumin [Mass/Vol] 3.8 g/dL Low 3.9-4.9 [facility] Comment on above: Order Comment: Speci men Type: BLOOD SPECIMENOrdering Facility: [facility] Address: [address] [place] [address] Performed By: #### 3 040-3, 43886-4 ####[facility]ORATORYCLIA [id number] [place] [address] [place] ALP [Catalytic activity/Vol] 87 U/L Normal 38-113 [facility] Comment on above: Order Comment: Speci men Type: BLOOD SPECIMENOrdering Facility: [facility] Address: [address] [place] [address] Performed By: #### 3 040-3, 89728-5 ####[facility]ORATORYCLIA [id number] [place] [address] [place] ALT With P-5'-P [Catalytic activity/Vol] 19 U/L Normal 10-54 [facility] Comment on above: Order Comment: Speci men Type: BLOOD SPECIMENOrdering Facility: [facility] Address: [address] [place] [address] Performed By: #### 3 040-3, ####[facility]ORATORYCLIA [id number] [address] STATES OF [facility] Anion gap [Moles/Vol] 15 mmol/L Normal 8-15 [facility] Comment on above: Order Comment: Speci men Type: BLOOD SPECIMENOrdering Facility: [facility] Address: [address] [place] [address] Performed By: #### 3 040-3, ####[facility]ATORYCLIA [id number] [address] [place] AST With P-5'-P [Catalytic activity/Vol] 20 U/L Normal 14-40 [facility] Comment on above: Order Comment: Speci men Type: BLOOD SPECIMENOrdering Facility: [facility] Address: [address] [place] [address] Performed By: #### 3 040-3, 95500-7 ####[facility]ATORYCLIA [id number] [address] [place] Bilirubin [Mass/Vol] 0.4 mg/dL Normal 0.2-1.3 [facility] Comment on above: Order Comment: Speci men Type: BLOOD SPECIMENOrdering Facility: [facility] Address: [address] [place] [address] Performed By: #### 3 040-3, 31081-2 ####[facility]ATORYCLIA [id number] [place] [address] [place] Calcium [Mass/Vol] 9.2 mg/dL Normal 8.5-10.2 [facility] Comment on above: Order Comment: Speci men Type: BLOOD SPECIMENOrdering Facility: [facility] Address: [address] [place] [address] Performed By: #### 3 -3, ####[facility]ATORYCLIA [id number] [place] [address] [place] Chloride [Moles/Vol] 106 mmol/L Normal 98-107 [facility] Comment on above: Order Comment: Speci men Type: BLOOD SPECIMENOrdering Facility: [facility] Address: [address] [place] [address] Performed By: #### 3 3, ####[facility]ORYCLIA [id number] [place] [address] [place] CO2 [Moles/Vol] 21 mmol/L Low 22-30 [facility] Comment on above: Order Comment: Speci men Type: BLOOD SPECIMENOrdering Facility: [facility] Address: [address] [place] [address] Performed By: #### 3 040-3, ####[facility]ATORYCLIA [id number] [place] [address] [place] Creatinine [Mass/Vol] 0.76 mg/dL Normal 0.73-1.22 [facility] Comment on above: Order Comment: Speci men Type: BLOOD SPECIMENOrdering Facility: [facility] Address: [address] [place] [address] Performed By: #### 3 040-3, ####[facility]ATORYCLIA [id number] [address] [place] Creatinine and Glomerular filtration rate.predicted panel (S/P/Bld) 96 mL/min/1.73m??? Normal >=60 [facility] Comment on above: Order Comment: George saldivar Type: BLOOD SPECIMENOrdering Facility: [facility] Address: [address] [place] [address] Result Comment: Katerine mated Glomerular Filtration Rate [...] actual GFR. Performed By: #### 3 040-3, 05607-9 ####[facility]ORYCLIA [id number] [place] [address] [place] Glucose [Mass/Vol] 112 mg/dL High 74-99 [facility] Comment on above: Order Comment: George saldivar Type: BLOOD SPECIMENOrdering Facility: [facility] Address: [address] [place] [address] Result Comment: The [place] Diabetes Association (ADA) provides guidance for cutoff [...] Standards of Medical Care in Diabetes 2016, [place] [employer]. Diabetes Care. 2016.39(Suppl 1). Performed By: #### 3 040-3, 37328-7 ####[facility]ATORYCLIA [id number] [place] [address] [place] Potassium [Moles/Vol] 4.5 mmol/L Normal 3.7-5.1 [facility] Comment on above: Order Comment: George saldivar Type: BLOOD SPECIMENOrdering Facility: [facility] Address: [address] [place], [place] [address] Performed By: #### 3 040-3, 32321-8 ####[facility]ORYCLIA [id number] [address] [place] Protein [Mass/Vol] 6.9 g/dL Normal 6.3-8.0 [facility] Comment on above: Order Comment: Speci men Type: BLOOD SPECIMENOrdering Facility: [facility] Address: [address] [place] [address] Performed By: #### 3 040-3, ####[facility]ORYCLIA [id number] [address] [place] Sodium [Moles/Vol] 142 mmol/L Normal 136-144 [facility] Comment on above: Order Comment: Speci men Type: BLOOD SPECIMENOrdering Facility: [facility] Address: [address] [place] [address] Performed By: #### 3 040-3, ####[facility]ORYCLIA [id number] [address] [place] Urea nitrogen [Mass/Vol] 7 mg/dL Low 9-24 [facility] Comment on above: Order Comment: Speci men Type: BLOOD SPECIMENOrdering Facility: [facility] Address: [address] [place] [address] Performed By: #### 3 040-3, ####[facility]ATORYCLIA [id number] [address] [place] ED NOTEon 04-24-2025 ED NOTE HNO ID: [id number] Author: YANNICK ROGERS RN Service: Emergency Medicine Author Type: Registered Nurse Type: ED Notes Filed: 04/24/2025 13:49 Note Text: Report called to Sofi in MICU. Ready for pt. Normal [facility] ED NOTE HNO ID: [id number] Author: YANNICK ROGERS RN Service: Emergency Medicine Author Type: Registered Nurse Type: ED Notes Filed: 04/24/2025 13:40 Note Text: Notified Dr Snider of pt being more confused now. Dr Snider states pt OK to go to MICU. Normal [facility] ED NOTE HNO ID: [id number] Author: MANUEL QUINTANA, RN Service: Nursing Author Type: Registered Nurse Type: ED Notes Filed: 04/24/2025 08:09 Note Text: Blood bank called, OR called Normal [facility] ED PROV NOTEon 04-24-2025 ED PROV NOTE HNO ID: [id number] Author: DARRIUS REESE DO Service: Emergency Medicine Author Type: Resident Type: ED Provider Notes Filed: 04/25/2025 13:13 Note Text: -- Attestation signed by Darrius Reese DO at 04/25/2025 1:13 PM Attending Note I evaluated the patient and personally participated in the walker components. I agree with the resident's findings and plan with the following revisions and/or additions: Please see my separate attending note. Signature: Darrius Reese DO Date: 04/25/2025 Time: 1:12 PM -- ED Provider Note Patient Name: Patricio Padron : 1955 SERVICE DATE: 04/24/25 History No chief complaint on file. This patient is a 70-year-old male presenting to the emergency department for evaluation following a fall. He was reportedly walking and took a fall from standing height, striking his head on the ground earlier this morning around 0400. He presented to [facility] where he was found to have a subdural hematoma on CT imaging and subsequently transferred to [facility] for further evaluation. On arrival to the emergency department, the patient states that he does not remember the fall. He states that he is in no pain currently and denies any other symptoms at this time. PAST MEDICAL HISTORY Diagnosis Date Arthritis BPH with obstruction/lower urinary tract symptoms Renal lesion 07/26/2023 Rosacea Subarachnoid hemorrhage (HCC) 08/11/2023 PAST SURGICAL HISTORY Procedure Laterality Date PAST SURGICAL HISTORY OF flexible cystoscopy PAST SURGICAL HISTORY OF 1958 tonsillectomy PAST SURGICAL HISTORY OF 2017 left eye surgery PAST SURGICAL HISTORY OF 2023 Surgery to drain hematoma on brain- not successful TRANSURETHRAL ELEC-SURG PROSTATECTOM N/A 08/18/2021 TRANSURETHRAL ELEC-SURG PROSTATECTOM 2019 FAMILY HISTORY Problem Relation Age of Onset Arthritis Mother Cancer Mother melanoma Heart Mother Viral myocarditis. GI Father ulcers Social History Tobacco Use Smoking status: Every Day Current packs/day: 0.50 Average packs/day: 0.5 packs/day for 20.0 years (10.0 ttl pk-yrs) Types: Cigarettes Smokeless tobacco: Former Vaping Use Vaping status: Never Used Substance and Sexual Activity Alcohol use: Not Currently Drug use: Never Sexual activity: Not Currently Partners: Female ALLERGIES No Known Allergies Review of Systems Constitutional: Negative for chills and fever. Respiratory: Negative for cough, chest tightness and shortness of breath. Cardiovascular: Negative for chest pain and palpitations. Gastrointestinal: Negative for abdominal pain, diarrhea, nausea and vomiting. Neurological: Negative for weakness and headaches. Physical Exam Vitals [04/24/25 0807] BP Pulse Temp Temp src Resp SpO2 Weight Height 142/84 (!) 98 37.1 ?C (98.7 ?F) -- 12 99 % -- -- Physical Exam Vitals and nursing note reviewed. Constitutional: Appearance: Normal appearance. Interventions: Cervical collar in place. HENT: Head: Normocephalic. No raccoon eyes or Mckenna's sign. Comments: There is a 2.5 cm laceration noted over the right eyebrow with Steri-Strips applied to No cephalhematoma Right Ear: Tympanic membrane and ear canal normal. No mastoid tenderness. No hemotympanum. Left Ear: Tympanic membrane and ear canal normal. No mastoid tenderness. No hemotympanum. Nose: Nose normal. Right Nostril: No epistaxis or septal hematoma. Left Nostril: No epistaxis or septal hematoma. Mouth/Throat: Lips: [place]. Mouth: Mucous membranes are dry. No injury. Eyes: Pupils: Pupils are equal, round, and reactive to light. Neck: Trachea: Trachea and phonation normal. No tracheal tenderness. Cardiovascular: Rate and Rhythm: Normal rate and regular rhythm. Pulses: Normal pulses. Radial pulses are 2+ on the right side and 2+ on the left side. Dorsalis pedis pulses are 2+ on the right side and 2+ on the left side. Posterior tibial pulses are 2+ on the right side and 2+ on the left side. Heart sounds: Normal heart sounds. Pulmonary: Effort: Pulmonary effort is normal. No respiratory distress. Breath sounds: Normal breath sounds. No wheezing, rhonchi or rales. Chest: Chest wall: No tenderness. Abdominal: General: Abdomen is flat. Bowel sounds are normal. Palpations: Abdomen is soft. Tenderness: There is no abdominal tenderness. There is no guarding or rebound. Musculoskeletal: General: Normal range of motion. Cervical back: Normal range of motion. No spinous process tenderness or muscular tenderness. Comments: No C, T, or L-spine tenderness in the midline or paravertebral musculature No palpable step-offs or deformities Skin: General: Skin is warm and dry. Comments: Superficial abrasions noted over the right knee Neurological: (more content not included)... Normal [facility] Emergency Department Summary on 04-24-2025 Emergency Department Summary [facility] Medical Records Department [address] [place] [id number] Emergency Department Summary 04/24/25 MR#: [id number] Acct: [id number] Name: PATRICIO PADRON Rep #: [id number] : 1955 70 From: Mat Delaney DO PCP: Dr. Yanet Adams MD Status:DEP ER Location: ED HPI History of Present Illness Chief Complaint: Head Injury [facility] Medical History Balance disorder Hyperlipidemia Dementia Brain bleed Home Medications ???Medication ???Instructions ???Recorded ???Last Taken ???Type Minocycline 50 mg PO BID atb 07/24/18 07/24/18 08:00 History 50 mg pravastatin 20 mg tablet 40 mg PO QHS cholesterol 07/24/18 07/23/18 22:00 History 40 mg terazosin 1 mg capsule 5 mg PO QHS Prostate 07/24/18 10/0 06/03 22:00 History 1 mg ibuprofen 400 mg tablet 400 mg PO Q6H 08/11/23 Unknown His tory meloxicam 15 mg tablet 15 mg PO DAILY 08/11/23 Unknown Hi story memantine 5 mg tablet 5 mg PO BID 08/11/23 Unknown Histo ry terazosin 5 mg capsule 5 mg PO QHS 04/24/25 Unknown Histo ry Allergy/AdvReac Type Severity Reaction Status Date / Time Penicillins Allergy Upset Verified 04/24/25 05:32 Stomach Social History Smoking Status: Never smoker EXAM Physical Exam Const Vital Signs: 04/24/25 05:33 Temperature 97.9 F Temperature Source Oral Pulse Rate 104 H Respiratory Rate 15 Blood Pressure 127/82 H Blood Pressure Mean 97 Pulse Ox 97 Oxygen Delivery Method Room Air MDM MDM MDM Narrative Medical decision making narrative: HISTORY OF PRESENT ILLNESS: Chief complaint: Head trauma, head laceration 70-year-old male history of dementia presents with fall and head trauma. He is accompany by his . She states patient had mechanical fall from standing in the bathroom hit his head on the right side of his eye on a weight scale. This occurred approximate 4:45 AM. Patient is on no blood thinners per . REVIEW OF SYSTEMS: Pertinent positives: Head trauma, Pertinent negatives: Focal weakness PHYSICAL EXAM: Nursing triage notes reviewed, Vital signs reviewed Primary Survey Airway: Intact Breathing: Bilateral breath sounds Circulation: Palpable bilateral femorals, Palpable bilateral radial, Palpable bilateral DP and Palpable bilateral PT Disability / Spine precautions GCS Score: Eye Openin Verbal Response: 5 Motor Response: 6 Secondary Survey Constitutional: Please see MDM Head: Midface stable, NO jaw malocclusion, No Cephalohematoma, small approximately 1 cm vertically oriented superficial laceration noted to the right eyebrow. Bleeding controlled. Well- approximated. No gaping. No underlying structures noted. No foreign bodies noted. Eye: Pupils equal round and reactive to light, Extraocular muscles intact and No periorbital ecchymosis or stepoff, no evidence of entrapment ENT: Oropharynx clear, no lacerations, no hemotympanum, no raccoon eyes or mckenna sign Cervical spine / Neck: No cervical spine bony tenderness, crepitance, or stepoff deformity Trachea midline Lungs: Clear to auscultation, No asymmetric rise and No crepitus, no flail chest Cardiac: Regular rate and rhythm and No murmurs Abdomen: Soft, Nontender and No rebound Pelvis: Pelvis stable to compression : No evidence of genital injury Back: No midline bony tenderness to thoracic/lumbar/sacral spines Neuro: At baseline (alert, oriented to person and place but not time), intact strength and sensation in bilateral upper and lower extremities. 2+ patellar reflexes bilaterally. NIH of 0. ICH score 0 Extremities: NO gross Deformities Psych: Normal affect Nursing triage notes reviewed, Vital signs reviewed MEDICAL DECISION MAKING: Chief Complaint: please see HPI External records reviewed: Reviewed prior imaging: Reviewed CT scan of the brain from 2023 showed volume loss no acute intracranial finding Factors affecting care: Dementia Social determinants of health: History of dementia History obtained from others: Significant other Consults: [facility] Trauma discussed with ER physician at [facility] Who accepted the patient's case Goals of care discussion: Full code MDM Narrative: The patient was initially hemodynamically stable, afebrile and nontoxic-appearing. Exam with minimal laceration to right eye I considered the following differential diagnosis: ICH, cervical spine injury, closed head injury I obtained imaging studies to further determine if the patient was suffering from a life-threatening etiology. ALL IMAGES (IF OBTAINED) HAVE BEEN PERSONALLY REVIEWED AND INTERPRETED BY MYSELF. CT scan of the brain was read reviewed (more content not included)... Normal [facility] Eosinophil percentageOrdered By: Mat Delaney on 04-24-2025 Eosinophils/100 WBC (Bld) 3.3 % 0-5 [facility] Erythrocyte distribution wid th ratioOrdered By: Mat Delaney on 04-24-2025 Erythrocyte distribution width (RBC) [Ratio] 12.6 % 11.6-14.6 [facility] Erythrocyte distribution wid th standard deviationOrdered By: Mat Delaney on 04-24-2025 Erythrocyte distribution width (RBC) [Ratio] 41.1 fl 35.1-43.9 [facility] Ethanol SerPl-mCncon 025 Ethanol [Mass/Vol] mg/dL Normal <11 [facility] Comment on above: Order Comment: Speci men Type: BLOOD SPECIMENOrdering Facility: [facility] Address: [address] [place] [address] Performed By: #### 5 643-2 ####[facility]ORATORYCLIA [id number] [place] [address] [place] Glomerular filtration rate ( GFR) estimation/1.73 sq m using serum, plasma, or whole bOrdered By: Mat Delaney on 04-24-2025 GFR/1.73 sq M.predicted among non-blacks MDRD (S/P/Bld) [Vol rate/Area] 92 mL/min/{1.73_m2} >60 [facility] Comment on above: mL/min/1.73m2 CKD-EP I Creatinine Equation (2020) HISTORY PHYSICALon HISTORY PHYSICAL HNO ID: [id number] Author: YANET KRAMER MD Service: General Surgery Author Type: Resident Type: H&P Filed: 05/14/2025 07:13 Note Text: -- Attestation signed by Yanet Kramer MD at 05/14/2025 7:13 AM Trauma Attending Note I have personally seen and evaluated this patient and participated in the walker components of this encounter. I discussed the management of this case with the surgery resident team and independently confirmed the findings and plan of care as documented either attached or in their separate note from today. Any corrections or additional notes are made as needed. I evaluated the patient on April 24, 2025 and 0800 am. Assessment and Plan: Patricio Padron is a 70 year old male evaluated following a Level 1 activation for fall with ICH and midline shift The patient was evaluated according to ATLS protocols. Injuries and diagnoses are notable for: SDH Admit ICU consult, SICU consult, Neurosurgery consult. Serial exams and interval CT head. Yanet Kramer MD Delayed entry -- TRAUMA SURGERY [facility]P [facility] ARRIVAL DATE: 04/24/2025 ARRIVAL TIME: 8AM CATEGORY: Level 1 INJURY DATE: 04/24/2025 INJURY TIME: earlier this AM Subjective 70 year old male with a past medical history of HLD and dementia presents as a level 1 trauma transfer from [place] secondary to SDH. Per report, patient had a fall from standing at his facility around 4:00 this morning. He does not recall the event. He is not on the loss of consciousness. He is not on any blood thinners. He has limited participation in exam secondary to his mental status. He underwent CT imaging at [place] that demonstrated right-sided SDH with midline shift however repeat imaging at [facility], while did demonstrate a SDH, there was no midline shift noted. No acute neurologic deficits noted. Given SDH, trauma and SICU were consulted for further assistance in management. HPI/CHIEF COMPLAINT: Ground-level fall BRIEF DESCRIPTION OF INJURIES: SDH LAST FLUIDS/MEAL: N/A CODE STATUS: Not discussed secondary to mental status ALLERGIES No Known Allergies (Not in a hospital admission) DATE OF LAST TETANUS: N/A Immunization History Administered Date(s) Administered influenza (HD-IIV3) vaccine, age 65+ yr, high dose, trivalent, PF (FLUZONE HIGH-DOSE) 06/17/2022 influenza (IIV3) vaccine, age 6 mo - 64 yr, trivalent (AFLURIA, FLULAVAL, FLUVIRIN, FLUZONE) 06/17/2016 influenza (IIV3) vaccine, trivalent, PF (AFLURIA, FLUARIX, FLULAVAL, FLUVIRIN, FLUZONE) 07/12/2018 influenza vaccine, unspecified formulation 06/17/2015 pneumococcal conjugate (PCV13) vaccine, 13 valent (PREVNAR 13) 05/14/2020 pneumococcal conjugate (PCV20) vaccine, 20 valent (PREVNAR 20) 04/29/2022 pneumococcal polysaccharide (PPV23) vaccine, 23 valent (PNEUMOVAX 23) 05/14/2013 tetanus diphtheria pertussis (Tdap) vaccine, age 7+ yr (ADACEL, BOOSTRIX) 02/22/2011 09/05/2020 PAST MEDICAL HISTORY Diagnosis Date Arthritis BPH with obstruction/lower urinary tract symptoms Renal lesion 07/26/2023 Rosacea Subarachnoid hemorrhage (HCC) 08/11/2023 PAST SURGICAL HISTORY Procedure Laterality Date PAST SURGICAL HISTORY OF flexible cystoscopy PAST SURGICAL HISTORY OF 1958 tonsillectomy PAST SURGICAL HISTORY OF 2017 left eye surgery PAST SURGICAL HISTORY OF 2023 Surgery to drain hematoma on brain- not successful TRANSURETHRAL ELEC-SURG PROSTATECTOM N/A 08/18/2021 TRANSURETHRAL ELEC-SURG [...] ROS: Is the patient having any pain? No 0 on a scale of 0 to 10 Constitutional: Negative Eye/Ear/Nose: Negative Respiratory: Negative Cardiovascular: Negative GI/Liver/Biliary: Negative Genitourinary: Negative Psychiatric: Negative Neurologic: Negative Musculoskeletal: Negative Integument: Negative Endocrine: Negative Heme/Lymph: Negative Objective PRIMARY SURVEY AIRWAY: Patent BREATHING: Breath sounds equal CIRCULATION: PT/DP 2, Radials 2, Femoral 2 DISABILITY: Eye: 4=Spontaneous Verbal: 5=Oriented and Converses Motor: 6=Obeys Commands Total GCS: 15=4 Resp Rate: 10 to 29=4 Syst BP: > than 89=4 REVISED TRAUMA SCORE: 12 EXPOSE / ENVIRONMENT: Not Applicable PROCEDURES: SECONDARY SURVEY VITALS: 04/24/25 1111 04/24/25 1130 04/24/25 1136 04/24/25 1213 BP: 106/77 111/79 (more content not included)... Normal [facility] Hematocrit Auto (Bld) [Volum e fraction]Ordered By: Mat Delaney on 04-24-2025 Hematocrit (Bld) [Volume fraction] 44.1 % 40-54 [facility] Hemoglobin measurementOrdere d By: Mat Delaney on 04-24-2025 Hemoglobin (Bld) [Mass/Vol] 15.1 g/dL 13.0-16.5 [facility] Immature granulocytes/100 WB C Auto (Bld)Ordered By: Mat Delaney on 04-24-2025 Immature granulocytes/100 WBC (Bld) 0.600 % 0.0-0.9 [facility] Comment on above: IG% - Immature Granu locytes (promyelocytes, myelocytes and metamyelocytes) > 1% indicates that a LEFT SHIFT is Present. Lipase SerPl-cCncon 04-24-20 25 Lipase [Catalytic activity/Vol] 28 U/L Normal 16-61 [facility] Comment on above: Order Comment: Speci men Type: BLOOD SPECIMENOrdering Facility: [facility] Address: [address] [place] [address] Performed By: #### 3 040-3, 69724-5 ####[facility] LABORATORYCLIA [id number] [place] [address] [place] MCV (mean corpuscular volume ) determinationOrdered By: Mat Delaeny on 04-24-2025 MCV (RBC) [Entitic vol] 88.9 fL 80-94 [facility] Mean corpuscular hemoglobin (MCH) determinationOrdered By: Mat Delaney on 04-24-2025 MCH (RBC) [Entitic mass] 30.4 pg 27.0-32.0 [facility] Mean corpuscular hemoglobin concentration (MCHC) determinationOrdered By: Mat Delaney on 04-24-2025 MCHC (RBC) [Mass/Vol] 34.2 g/dL 32-36 [facility] Mean platelet volume determi nationOrdered By: Mat Delaney on 04-24-2025 Platelet mean volume (Bld) [Entitic vol] 9.7 fL 6.2-12.0 [facility] Monocyte percentageOrdered B y: Mat Delaney on 04-24-2025 Monocytes/100 WBC (Bld) 8.7 % 0-10 [facility] Neutrophil percentageOrdered By: Mat Delaney on 04-24-2025 Neutrophils/100 WBC (Bld) 55.7 % 47-70 [facility] Nucleated red blood cell per centageOrdered By: Mat Delaney on 04-24-2025 Nucleated RBC/100 WBC (Bld) [Ratio] 0 % 0-5 [facility] PT panel Coag (PPP)on 2024 INR Coag (PPP) [Relative time] 1.0 {INR} Normal 0.9-1.3 [facility] Comment on above: Order Comment: George saldivar Type: BLOOD SPECIMENOrdering Facility: [facility]Aud[facility] [place] [address] Result Comment: Magy min K Antagonist (VKA) Therapeutic Range: INR 2 to 3 (Target INR of 2.5) Note: For patients treated with VKA drugs, such as warfarin, the [place] [employer] 2012 Guideline recommends [...] 2.5 to 3.5 (target INR of 3). aSrah GH, et al. Chest 2012, 141:7S-47S Zayda RA, et al. [facility] 2017, 70: 252-289 Performed By: #### 3 4528-0, 32295-5 ####[facility]ORATORYCLIA [id number] [place] [address] [place] PT Coag (PPP) [Time] 10.7 s Normal 9.7-13.0 [facility] Comment on above: Order Comment: George saldivar Type: BLOOD SPECIMENOrdering Facility: [facility] Address: [address] [place] [address] Performed By: #### 3 4528-0, 58258-3 ####[facility] LABORATORYCLIA [id number] [place] [address] [place] Platelet countOrdered By: Abigail Delaney on 04-24-2025 Platelets (Bld) [#/Vol] 246 10*3/uL 150-450 [facility] Potassium measurement (mass/ volume)Ordered By: Mat Delaney on 04-24-2025 Potassium (Unsp spec) [Mass/Vol] 3.9 mmol/L 3.3-5.1 [facility] RBC Auto (Bld) [#/Vol]Ordere d By: Mat Delaney on 04-24-2025 RBC (Bld) [#/Vol] 4.96 10*6/uL 4.6-6.2 [facility] STAPHYLOCOCCUS AUREUS AND MR SA SCREEN, PCR, NASALon 04-24-2025 S. aureus and MRSA panel ROHIT+probe (Nose) Not detected Normal Not Detected [facility] Comment on above: Order Comment: Speci men Type: SWABOrdering Facility: [facility] Address: [address] [place] [address] Performed By: #### S APCR ####[facility] LABORATORYCLIA [id number] [address] [place] Serum creatinine measurement (mass/volume)Ordered By: Mat Delaney on 04-24-2025 Creatinine [Mass/Vol] 0.87 mg/dL 0.70-1.20 [facility] Serum glucose measurement (m ass/volume)Ordered By: Mat Delaney on 04-24-2025 Glucose [Mass/Vol] 114 mg/dL High 70-99 [facility] Serum or plasma calcium zoe urement (mass/volume)Ordered By: Mat Dealney on 04-24-2025 Calcium [Mass/Vol] 9.3 mg/dL 7.6-11.0 [facility] Serum or plasma urea nitroge n measurement (mass/volume)Ordered By: Mat Delaney on 04-24-2025 Urea nitrogen [Mass/Vol] 8 mg/dL 4-19 [facility] Sodium levelOrdered By: Sena Delaney on 04-24-2025 Sodium [Moles/Vol] 140 mmol/L 133-145 [facility] Spine Cervical without Contr ason 04-24-2025 Spine Cervical without Contras [facility] Imaging Services [address] [place] [address] Spine Cervical without Contras MR#: [id number] Acct: [id number] Name: PATRICIO PADRON Rep #: [id number] : 1955 M 70 From: Giselle Prado MD PCP: Dr. Yanet Adams MD Status: REG ER Study: Spine Cervical without Contras Date of Exam: 0 04/24/25 Exam# [id number] Ordering Dr: Mat Delaney DO PROCEDURE: SPINE CERVICAL WITHOUT CONTRAS 04/24/2025 REASON FOR EXAM: NECK INJURY TECHNIQUE: SPINE CERVICAL WITHOUT CONTRAS Coronal and Sagittal reconstruction series were provided. One or more dose reduction techniques were used (e.g., Automated exposure control, adjustment of the mA and/or kV according to patient size, use of iterative reconstruction technique. RADIATION DOSE SUMMARY: CTDlvol: 65.55 mGy DLP: 1296.10 mGycm COMPARISON: CT cervical spine, 08/13/2024 FINDINGS: There is no evidence of fracture or subluxation. 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 There is degenerative disc disease C3-4 through C7-T1 with narrowing of the intervertebral disc spaces and marginal osteophytes. There is multilevel facet arthropathy. There is degenerative grade 1 anterolisthesis of C7 on T1. There is no abnormal mass effect on the spinal canal or the visualized intracranial contents. Soft Tissues: The lung apices are clear. The soft tissues of the neck have a normal unenhanced appearance. Other: There is calcific vascular disease of the intracranial portion of both internal carotid arteries. There is calcific vascular disease of the left carotid bifurcation. There are few fluid-filled mastoid air cells bilaterally. CT/Spine Cervical without Contras IMPRESSION: 1. No evidence of acute bony injury. 2. Diffuse degenerative disc disease. 3. Diffuse facet arthropathy with degenerative anterolisthesis of C7 on T1. 4. Other findings as noted. Reading Location: [id number] CC: Dr. Mat Delaney DO; Dr. Yanet Adams MD Septic Tank Setter: Signed Normal [facility] TEG WITH HEPARIN NEUTRALIZAT IONon 04-24-2025 CITRATED FUNCTIONAL FIBRINOGEN W HAPARINASE MAXIMUM AMPLITUDE 21.6 mm Normal 15-34 [facility] Comment on above: Order Comment: Speci men Type: BLOOD SPECIMENOrdering Facility: [facility] Address: [address] [place] [address] Performed By: #### T EGHN ####[facility]ORATORYCLIA [id number] [address] OF [facility] CITRATED KAOLIN W HEPARINASE CLOT LYSIS AT 30 MINS 0.3 % Normal 0.0-3.2 [facility] Comment on above: Order Comment: Speci men Type: BLOOD SPECIMENOrdering Facility: [facility] Address: [address] [place] [address] Performed By: #### T EGHN ####[facility]ORATORYCLIA [id number] [address] [place] CITRATED RAPID TEG W HEPARINASE MAXIMUM AMPLITUDE 63.3 mm Normal 53-69 [facility] Comment on above: Order Comment: Speci men Type: BLOOD SPECIMENOrdering Facility: [facility] Address: [address] [place] [address] Performed By: #### T EGHN ####[facility]ATORYCLIA [id number] [address] [place] Clotting time after addition of heparinase TEG (Bld) 4.9 minutes Normal 4.3-8.3 [facility] Comment on above: Order Comment: Speci men Type: BLOOD SPECIMENOrdering Facility: [facility] Address: [address] [place] [address] Performed By: #### T EGHN ####[facility]ATORYCLIA [id number] [address] [place] Clotting time.extrinsic coagulation system activated Rotational TEG (Bld) 5.0 minutes Normal 4.6-9.1 [facility] Comment on above: Order Comment: Speci janna Type: BLOOD SPECIMENOrdering Facility: [facility] Address: [address] [place] [address] Performed By: #### T EGHN ####[facility]ORATORYCLIA [id number] [place] [id number] [facility] [place] Maximum clot firmness TEG (Bld) [Length] 62.6 mm Normal 52.0-69.0 [facility] Comment on above: Order Comment: Speci men Type: BLOOD SPECIMENOrdering Facility: [facility] Address: [address] [place] [address] Performed By: #### T EGHN ####[facility]ITALCLIA [id number] [address] STATES [facility] THROMBOGRAPH INTERP Normal [facility] Comment on above: Order Comment: Speci men Type: BLOOD SPECIMENOrdering Facility: [facility] Address: [address] [place] [address] Result Comment: A th romboelastograph (TEG) study was performed using citrate-anticoagulated whole blood treated with and without heparinase to neutralize a heparin effect. The R value, a measure of coagulation function, is within the normal range. This indicates normal coagulation function. The Ly30, a measure of fibrinolysis, is normal. This is indicative of normal fibrinolytic function.The Maximal Amplitude (MA), a measure of platelet function, is within the normal range. Viscoelastic testing is not intended for the monitoring of anticoagulation or antiplatelet medications or the diagnosis and/or management of platelet disorders and/or coagulopathies but may be useful for guiding blood product utilization in emergency and urgent (OR) circumstances when routine coagulation and cell blood counts are not available in a timely manner. Performed By: #### T EGHN ####[facility]ATORYCLIA [id number] [place] [id number] [facility] TOXICOLOGY SCREEN, ROUTINE U RINEon 04-24-2025 Amphetamines Confirm (U) [Mass/Vol] Negative Normal Negative [facility] Comment on above: Order Comment: Speci men Type: URINE SPECIMENOrdering Facility: [facility] Address: [address] [place] [address] Result Comment: Cuto ff threshold at 1000 ng/mL. Performed By: #### U TOX2 ####[facility]ATORYCLIA [id number] [address] [place] BARBITURATES, URINE Negative Normal Negative [facility] Comment on above: Order Comment: Speci men Type: URINE SPECIMENOrdering Facility: [facility] Address: [address] [place] [address] Result Comment: Cuto ff threshold at 200 ng/mL. Performed By: #### U TOX2 ####[facility]ATORYCLIA [id number] [place] [address] [place] BENZODIAZEPINES, URINE Negative Normal Negative [facility] Comment on above: Order Comment: Speci men Type: URINE SPECIMENOrdering Facility: [facility] Address: [address] [place] [address] Result Comment: Cuto ff threshold at 200 ng/mL. Performed By: #### U TOX2 ####[facility]ATORYCLIA [id number] [place] [address] [place] Cannabinoids Screen Ql (U) Negative Normal Negative [facility] Comment on above: Order Comment: Speci men Type: URINE SPECIMENOrdering Facility: [facility] Address: [address] [place] [address] Result Comment: Cuto ff threshold at 50 ng/mL. Performed By: #### U TOX2 ####[facility]ORYCLIA [id number] [address] [place] Cocaine Ql (U) Negative Normal Negative [facility] Comment on above: Order Comment: Speci men Type: URINE SPECIMENOrdering Facility: [facility] Address: [address] [place] [address] Result Comment: Cuto ff threshold at 300 ng/mL. Performed By: #### U TOX2 ####[facility]ORYCLIA [id number] [place] [address] [place] Ethanol (U) [Mass/Vol] <11 Normal <11 [facility] Comment on above: Order Comment: Speci men Type: URINE SPECIMENOrdering Facility: [facility] Address: [address] [place] [address] Performed By: #### U TOX2 ####[facility]ORYCLIA [id number] [address] fentaNYL Screen Ql (U) Negative Normal Negative [facility] Comment on above: Order Comment: Speci men Type: URINE SPECIMENOrdering Facility: [facility] Address: [address] [place] [address] Result Comment: Cuto ff threshold at 5 ng/mL. Performed By: #### U TOX2 ####[facility]ORYCLIA [id number] [address] Opiates Screen Ql (U) Negative Normal Negative [facility] Comment on above: Order Comment: Speci men Type: URINE SPECIMENOrdering Facility: [facility] Address: [address] [place] [address] Result Comment: Cuto ff threshold at 300 ng/mL. Performed By: #### U TOX2 ####[facility]ORYCLIA [id number] [address] oxyCODONE cutoff Screen (U) [Mass/Vol] Negative Normal Negative [facility] Comment on above: Order Comment: Speci men Type: URINE SPECIMENOrdering Facility: [facility] Address: [address] [place] [address] Result Comment: Cuto ff threshold at 100 ng/mL. Performed By: #### U TOX2 ####[facility]ORYCLIA [id number] [address] Phencyclidine Ql (U) Negative Normal Negative [facility] Comment on above: Order Comment: Speci men Type: URINE SPECIMENOrdering Facility: [facility] Address: [address] [place] [address] Result Comment: Cuto ff threshold at 25 ng/mL. Performed By: #### U TOX2 ####[facility]ATORYCLIA [id number] [address] OF [facility] TYPE + SCREENon 04-24-2025 ABO O Normal [facility] Comment on above: Order Comment: Speci men Type: BLOOD SPECIMEN [facility] Address: [facility] [place] [place] [address] Performed By: #### T SCR #### [facility] CLIA [id number] [address] [place] Rh Nom (Bld) Negative Normal [facility] Comment on above: Order Comment: Speci men Type: BLOOD SPECIMEN [facility] Address: [address] [place] [address] Performed By: #### T SCR #### [facility] CLIA [id number] [address] TYPE AND SCREEN EXPIRATION 04/27/2025 23:59 Normal [facility] Comment on above: Order Comment: Speci men Type: BLOOD SPECIMEN [facility] Address: [address] [place] [address] Performed By: #### T SCR #### [facility] CLIA [id number] [address] Urinalysis complete panel (U )on 04-24-2025 Bilirubin Ql (U) Negative Normal Negative [facility] Comment on above: Order Comment: Speci men Type: URINE SPECIMENOrdering Facility: [facility] Address: [address] [place] [address] Performed By: #### 2 4356-8 ####[facility]ORATORYCLIA [id number] [address] Clarity (Unsp spec) Clear Normal Clear [facility] Comment on above: Order Comment: Speci men Type: URINE SPECIMENOrdering Facility: [facility] Address: [address] [place] [address] Performed By: #### 2 4356-8 ####[facility]ATORYCLIA [id number] [address] [place] Color (U) Colorless Normal yellow [facility] Comment on above: Order Comment: Speci men Type: URINE SPECIMENOrdering Facility: [facility] Address: [address] [place] [address] Performed By: #### 2 4356-8 ####[facility]ATORYCLIA [id number] [address] [place] Glucose Test strip (U) [Mass/Vol] Negative Normal Trace, Negative [facility] Comment on above: Order Comment: Speci men Type: URINE SPECIMENOrdering Facility: [facility] Address: [address] [place] [address] Performed By: #### 2 4356-8 ####[facility]ATORYCLIA [id number] [address] [place] Hemoglobin Ql (U) Negative Normal Negative, Trace [facility] Comment on above: Order Comment: Speci men Type: URINE SPECIMENOrdering Facility: [facility] Address: [address] [place] [address] Performed By: #### 2 4356-8 ####[facility]ATORYCLIA [id number] [address] [place] Ketones Ql (U) Negative Normal Negative, Trace [facility] Comment on above: Order Comment: Speci men Type: URINE SPECIMENOrdering Facility: [facility] Address: [address] [place] [address] Performed By: #### 2 4356-8 ####[facility]ATORYCLIA [id number] [address] [place] Leukocyte esterase Test strip Ql (U) Negative Normal Negative, 25 Zeke/uL [facility] Comment on above: Order Comment: Speci men Type: URINE SPECIMENOrdering Facility: [facility] Address: [address] [place] [address] Performed By: #### 2 4356-8 ####[facility]ATORYCLIA [id number] [place] [address] [place] Nitrite Ql (U) Negative Normal Negative [facility] Comment on above: Order Comment: Speci men Type: URINE SPECIMENOrdering Facility: [facility] Address: [address] [place] [address] Performed By: #### 2 4356-8 ####[facility]ATORYCLIA [id number] [address] [place] pH (U) 7.0 [pH] Normal 5.0-8.0 [facility] Comment on above: Order Comment: Speci men Type: URINE SPECIMENOrdering Facility: [facility] Address: [address] [place] [address] Performed By: #### 2 4356-8 ####[facility]ATORYCLIA [id number] [address] STATES [facility] Protein (U) [Mass/Vol] Negative Normal Trace , Negative [facility] Comment on above: Order Comment: Speci men Type: URINE SPECIMENOrdering Facility: [facility] Address: [address] [place] [address] Performed By: #### 2 4356-8 ####[facility]ATORYCLIA [id number] [address] STATES [facility] RBC LM.HPF (Urine sed) [#/Area] 0-3 /HPF Normal 0-3 /HPF [facility] Comment on above: Order Comment: Speci men Type: URINE SPECIMENOrdering Facility: [facility] Address: [address] [place] [address] Performed By: #### 2 4356-8 ####[facility]ATORYCLIA [id number] [address] [place] Specific gravity (U) [Rel density] 1.019 Normal 1.005-1.030 [facility] Comment on above: Order Comment: Speci men Type: URINE SPECIMENOrdering Facility: [facility] Address: [address] [place] [address] Performed By: #### 2 4356-8 ####[facility]ORYCLIA [id number] [address] Urobilinogen Ql (U) Normal Normal Normal [facility] Comment on above: Order Comment: Speci men Type: URINE SPECIMENOrdering Facility: [facility] Address: [address] [place] [address] Performed By: #### 2 4356-8 ####[facility]ORYCLIA [id number] [address] STATES [facility] WBC LM.HPF (Urine sed) [#/Area] 0-5 /HPF Normal 0-5 /HPF [facility] Comment on above: Order Comment: Speci men Type: URINE SPECIMENOrdering Facility: [facility] Address: [address] [place] [address] Performed By: #### 2 4356-8 ####[facility]ORYCLIA [id number] [address] White blood cell (WBC) count Ordered By: Mat Delaney on 04-24-2025 WBC (Bld) [#/Vol] 8.9 10*3/uL 4.4-11.0 [facility] aPTT PPPon 04-24-2025 aPTT Coag (PPP) [Time] 25.4 s Normal 23.0-32.4 [facility] Comment on above: Order Comment: Speci men Type: BLOOD SPECIMENOrdering Facility: [facility] Address: [address] [place] [address] Performed By: #### 3 4528-0, 28147-9 ####[facility]ATORYCLIA [id number] [address] [place] 102on 04-22-2025 102 HNO ID: [id number] Author: MILVIA KANG HDA Service: ? Author Type: ? Type: 102 Filed: 04/22/2025 18:49 Note Text: Code Status: Full Code Normal [facility] CNPNon 04-09-2025 CNPN Telephone (HCSIND) -- PATRICIO PADRON ([id number]) 1955 M Date Time Provider Department 04/09/25 TILA CACERES During your visit today, we recorded the following information about you: Tila Caceres CCC-SLP 04/09/2025 2:33 PM Addendum FYI: Mr. Padron's Chalo reported the patient is taking the following medications daily, but they are not listed on his med list: Prevacid 30mg taking 1 pill 1 x a day and Vitamin D3 2000U taking 1 capsule 1x a day. They also reported a fall that occurred on the afternoon of 04/07/2025 in their half bath as he was completing toileting hygiene on his own. No injuries reported. He was able to be assisted up by his . Please let me know if you have any questions. Tila Caceres MA,KORY-Jeanine Bocanegra, SLOAN.[facility] 04/09/2025 3:40 PM Signed Noted Allergies As of Date: 04/09/2025 (No Known Allergies) Date Reviewed: 04/08/2025 Reviewed by: Tila Caceres CCC-SLP - Fully Assessed Reason for Visit: Home Care [4073] Cmt: Patient information fall/medications Primary Visit Diagnosis:Gastroesophageal reflux disease without esophagitis [K21.9] Other Visit Diagnosis:Vitamin D deficiency [E55.9] Order(s):lansoprazole (PREVACID) 30 mg capsuleTake 1 capsule by mouth once daily.Disp: 30 capsuleRfl: 11 cholecalciferol (VITAMIN D3) 50 mcg (2,000 unit) tabletTake 1 tablet by mouth once daily.Disp: 30 tabletRfl: 11 Prescriptions as of 04/09/2025 - lansoprazole (PREVACID) 30 mg capsule Take 1 capsule by mouth once daily. - cholecalciferol (VITAMIN D3) 50 mcg (2,000 unit) tablet Take 1 tablet by mouth once [...] for Pain. Problem List As Of Date 04/09/2025 Noted Resolved Benign non-nodular prostatic hyperplasia with [...] myelopathy (HCC) [G95.9] 12/30/2023 Prediabetes [R73.03] 07/02/2024 Prescriptions ordered this encounter Disp Refills Start End LANSOPRAZOLE 30 MG CAPSULE,DELAYED R* 30 c* 11 04/09/2025 04/09/2026 Class: Med Update Route: PO Sig: Take 1 capsule by mouth once daily. CHOLECALCIFEROL (VITAMIN D3) 50 MCG * 30 t* 11 04/09/2025 04/09/2026 Class: OTC Route: PO Sig: Take 1 tablet by mouth once daily. Encounter Status:Closed by JEANINE FERMIN on 04/09/25 [facility] -- VITO,PATRICIO Dawkins ([id number]) 1955 M Date Time Provider Department 03/27/25 JEANINE FERMIN During your visit today, we recorded the following information about you: Roselia Control Integration EngineerLeeroy 03/27/2025 3:15 PM Signed There has been a delay in service for Home Care PT Evaluation for this patient due to schedule conflict. Patient was notified on 03/27/25. Thank you for this referral, please contact us with any questions. Leeroy Fisher Control Integration Engineer Allergies As of Date: 03/27/2025 (No Known Allergies) Date Reviewed: 03/27/2025 Reviewed by: Tila Caceres CCC-UPHOLSTERY TECHNICIAN - Fully Assessed Reason for Visit: Home Care [4073] Cmt: DELAY IN SERVICE Prescriptions as of 03/27/2025 - memantine (NAMENDA) 5 mg tablet Take [...] for Pain. Problem List As Of Date 03/27/2025 Noted Resolved Benign non-nodular prostatic hyperplasia with [...] 12/30/2023 Prediabetes [R73.03] 07/02/2024 Encounter Status:Closed by FISHER CLIENT CARE SPECIALISTLEEROY on 03/27/25 Normal [facility] CNPNon 03-24-2025 CNPN Telephone (HCSIND) -- PATRICIO PADRON ([id number]) 1955 M Date Time Provider Department 03/24/25 BETTY WEBBER HCSIND During your visit today, we recorded the following information about you: Betty Webber CCC-UPHOLSTERY TECHNICIAN 03/24/2025 11:43 AM Addendum Speech Therapy Home Care Agency Admission completed on 03/23/25. Recommend speech therapy intervention 3m1, 2m1 to focus on dysphagia treatment, cognitive linguistic skills and dementia management education. Recommend adding PT referral for issues with balance/recent falls. Will send order, please sign if you agree. Thanks, Betty Webber MS, CCC-UPHOLSTERY TECHNICIAN Allergies As of Date: 03/24/2025 (No Known Allergies) Date Reviewed: 02/08/2025 Reviewed by: Vasquez Walter MA - Fully Assessed Reason for Visit: Home Care [4073] Cmt: Speech Therapy Home Care Admission 03/23/25, recommend adding PT EVAL Prescriptions as of 03/24/2025 - memantine (NAMENDA) 5 mg tablet Take [...] for Pain. Problem List As Of Date 03/24/2025 Noted Resolved Benign non-nodular prostatic hyperplasia with [...] 12/30/2023 Prediabetes [R73.03] 07/02/2024 Encounter Status:Closed by BETTY WEBBER on 03/24/25 Normal [facility] CNCOon 03-23-[address] [facility] CNPNon 03-22-2025 CNPN Telephone (HCSIND) -- PATRICIO PADRON ([id number]) 1955 M Date Time Provider Department 03/22/25 KRISTEL LOPEZ HCSIND During your visit today, we recorded the following information about you: Kristel Lopez LPN 03/22/2025 12:11 PM Signed Date/Time: 03/22/2025 12:11 PM Spoke with CHALO @ phone #: [phone] (home) [phone] (work) - Preferred # for contact: [phone] (home) [phone] (work) Have you received help from a home care company in the last 60 days? NO Are you agreeable to [facility] services? YES What address will we be seeing you at? Patricio Dawkins [facility] [id number] [address] [facility] [address] Do you have any upcoming appointments or things we need to schedule around? NO Do you have a teachable CG or can you manage your care independently? YES Who? CHALO CALDERA Allergies As of Date: 03/22/2025 (No Known Allergies) Date Reviewed: 02/08/2025 Reviewed by: Vasquez Walter MA - Fully Assessed Reason for Visit: Home Care [4073] Cmt: CONFIRMATION CALL Prescriptions as of 03/22/2025 - memantine (NAMENDA) 5 mg tablet Take [...] for Pain. Problem List As Of Date 03/22/2025 Noted Resolved Benign non-nodular prostatic hyperplasia with [...] 12/30/2023 Prediabetes [R73.03] 07/02/2024 Encounter Status:Closed by KRISTEL LOPEZ [facility] -- PATRICIO PADRON ([id number]) 1955 M Date Time Provider Department 03/22/25 YANET ADAMS HCSBioSET During your visit today, we recorded the following information about you: Tessie Angel 03/22/2025 2:41 PM Signed Patient accepted and confirmed Home Care UPHOLSTERY TECHNICIAN start of care for 03/23/25. Thank you Tessie Angel Allergies As of Date: 03/22/2025 (No Known Allergies) Date Reviewed: 02/08/2025 Reviewed by: Vasquez Walter MA - Fully Assessed Reason for Visit: Home Care [4073] Cmt: UPHOLSTERY TECHNICIAN SOC Confirmation call Prescriptions as of 03/22/2025 - memantine (NAMENDA) 5 mg tablet Take [...] for Pain. Problem List As Of Date 03/22/2025 Noted Resolved Benign non-nodular prostatic hyperplasia with [...] 12/30/2023 Prediabetes [R73.03] 07/02/2024 Encounter Status:Closed by TESSIE ANGEL on 03/22/25 [facility] 03-20-2025 [facility] -- PATRICIO PADRON ([id number]) 1955 M Date Time Provider Department 03/20/25 [facility] During your visit today, we recorded the following information about you: Divya Araujo LPN 03/20/2025 10:26 AM Signed [facility] Scheduling dept calling they received order for a Cookie Swallow test. She said patient had Cookie Swallow done at [facility] on 02/28/2025, asking if wanting patient to have test done again? Please advise Jeanine Fermin APRN.SAMARIA 03/21/2025 7:46 AM Signed Patient does not need a cookie swallow now, he needs home care for speech therapy to work on his swallow. They may want him to have a cookie swallow once speech therapy has worked with him. Vasquez Walter MA 03/21/2025 8:23 AM Signed Called and canceled order Vasquez Walter MA March 21, 2025 8:23 AM Allergies As of Date: 03/20/2025 (No Known Allergies) Date Reviewed: 02/08/2025 Reviewed by: Vasquez Walter MA - Fully Assessed Reason for Visit: Patient Question [1477] [facility] Scheduling dept calling [Other] Prescriptions as of 03/21/2025 - memantine (NAMENDA) 5 mg tablet Take [...] for Pain. Problem List As Of Date 03/20/2025 Noted Resolved Benign non-nodular prostatic hyperplasia with [...] 12/30/2023 Prediabetes [R73.03] 07/02/2024 Encounter Status:Closed by VASQUEZ WALTER on 03/21/25 [facility] VITOPATRICIO L ([id number]) 1955 Date Time Provider Department 03/20/25 JEANINE FERMIN [facility] During your visit today, we recorded the following information about you: Paulino Mayorga LPN 03/20/2025 11:20 AM Signed Jeanine Fermin APRN, CNP Thank you for the referral for Patricio Padron to receive home care services through [facility]. At this time, the office note is not yet completed for us to review for [facility] guidelines. Per CMS guidelines your office note needs to include a discussion of [facility] with the following: - what is the diagnosis that [facility] is seeing the patient for. Office visit note needs discussion of patient's dysphagia. Please amend note to include MBS results;dysphagia. Please let us know once you have an opportunity to complete it so that we can review for CMS. Thank you, GEORGIA Prasad Jacqueline A, APRN.SAMARIA 03/21/2025 7:48 AM Signed Patient had a swallow eval and they recommended some speech therapy to help him work on his swallow. I believe the swallow evaluation was done at [place]. If not, please fax it to them. Patient is not able to leave his home. Therefore they need home therapy for speech to work on his swallowing. Shelley Reynolds LPN 03/21/2025 8:09 AM Signed Jeanine Fermin APRN.CNP Thank you for the update. We have access to see and review the MBS. What we need to make this a CMS compliant referral is for your office visit to assess and discuss his dysphagia, include his need for UPHOLSTERY TECHNICIAN services through [facility] and include his homebound status. Once your note is updated, please let us know, we can re-review to confirm it is CMS compliant and can then hopefully move forward with services. Thank you, GEORGIA Recinos Jacqueline A, APRN.CNP 03/21/2025 8:17 AM Signed Complete. Allergies As of Date: 03/20/2025 (No Known Allergies) Date Reviewed: 02/08/2025 Reviewed by: Vasquez Walter MA - Fully Assessed Reason for Visit: Home Care [4073] Prescriptions as of 03/21/2025 - memantine (NAMENDA) 5 mg tablet Take [...] for Pain. Problem List As Of Date 03/20/2025 Noted Resolved Benign non-nodular prostatic hyperplasia with [...] 12/30/2023 Prediabetes [R73.03] 07/02/2024 Encounter Status:Closed by PAULINO MAYORGA on 03/20/25 [facility] 03-19-2025 [facility] Telephone ([facility]) -- PATRICIO PADRON ([id number]) 1955 Date Time Provider Department 03/19/25 JEANINE FERMIN [facility] During your visit today, we recorded the following information about you: Jeanine Fermin APRN.[facility] 03/19/2025 8:55 AM Signed I am well aware that is difficult for him to get out of the house for therapy. I did order home care yesterday. I ordered it through the [facility], I did not see if they were able to accommodate yet or not. Could get home care through [facility] for speech therapy if needed. Please check on this for patient. Vasquez Walter MA 03/19/2025 10:08 AM Signed See [employer] message. Vasquez Walter MA March 19, 2025 10:08 AM Allergies As of Date: 03/19/2025 (No Known Allergies) Date Reviewed: 02/08/2025 Reviewed by: Vasquez Walter MA - Fully Assessed Prescriptions as of 03/19/2025 - memantine (NAMENDA) 5 mg tablet Take [...] for Pain. Problem List As Of Date 03/19/2025 Noted Resolved Benign non-nodular prostatic hyperplasia with [...] 12/30/2023 Prediabetes [R73.03] 07/02/2024 Encounter Status:Closed by VASQUEZ WALTER on 03/19/25 Normal [facility] Modified Barium Swallow Stud [facility] 02-28-2025 Modified Barium Swallow Study [facility] Speech Pathology [address] [place] [address] Modified Barium Swallow Study MR#: [id number] Acct: [id number] Name: PATRICIO PADRON Rep #: [id number] : 1955 69 From: Paulino Contreras M.A., [facility]-UPHOLSTERY TECHNICIAN Modified Barium Swallow Patient Information Study Date: 02/28/25 Study Time: 09:30 Direct Billable Minutes: 120 Total Minutes procedure reportin Diagnosis: Dysphagia R13.10 Referring Physician: Jeanine Fermin Reason for Referral: OP BSE completed 02/20/2025 revealing mild dysphagia and recommending regular textures / thin liquids, supervision at all meals, Sitting Upright Position at Least 30 Minutes After Meals, Small Sips Bites when Eating, Multiple Swallows and Alternate Liquids Solids. UPHOLSTERY TECHNICIAN also recommended MBSS for further assessment of swallow function and aspiration risk. The patient's provided history today. She initially reported no concern pt having difficulty swallowing food/drink; however, she did mention that the patient had a choking spell on carrots and his had to pound on his back to clear it. She reported that most of the time he begins choking/coughing just sitting and swallowing saliva (unrelated to food/drink). She then also informed UPHOLSTERY TECHNICIAN that the patient had a bad coughing spell w/ a pill and afterwards he stated that it went down the wrong way. He takes multiple pills whole w/ liquids. Medical History: PMH: Pneumonia (1X, 01/2025), GERD (managed by Pepcid daily), Dementia, Head trauma (SAH) (2X, 2017, 2022), Subdural hematoma (surgically managed; however, surgery unsuccessful per report), Frequent falls, Spinal stenosis. Current Diet Ordered: Regular textures / Thin liquids Dentition: Natural Teeth Mental Status: Impaired (Hx of dementia) Respiratory Status: Oxygenating on Room Air Penetration-Aspiration Scale Penetration-Aspiration Scale: OBJECTIVE ASSESSMENT OF SWALLOW FUNCTION (QUANTITATIVE ??? PER TRIAL): PENETRATION / ASPIRATION SCALE (WALKER): 1 = does not enter airway 2 = enters airway/above vocal folds/ejected 3 = enters airway/above vocal folds/not ejected 4 = enters airway/contacts vocal folds/ejected 5 = enters airway/contacts vocal folds/not ejected 6 = enters airway/below vocal folds/ejected 7 = enters airway/below vocal folds/not ejected despite effort 8 = enters airway/below vocal folds/no effort VIDEOFLOROSCOPIC SCALE SCORE (WALKER): Grade I = aspiration of material that has penetrated into the laryngeal vestibule, intact cough reflex Grade II = aspiration < 10 % of the bolus, intact cough reflex Grade III = aspiration of < 10 % of the bolus, reduced cough reflex or aspiration of > 10 % of the bolus, intact cough reflex Grade IV = aspiration of > 10 % of the bolus, reduced cough reflex Penetration-Aspiration Scale Score Thin Liquid via teaspoon: Result: 1= does not enter airway Thin Liquid via teaspoon Trial 2: Result: 1= does not enter airway Thin Liquid via large single sip: cup: Result: 1= does not enter airway [place] Thick Liquid via small single sip: cup: Result: 1= does not enter airway Pudding via teaspoon: Result: 1= does not enter airway Comment: Esophageal Screen - Complete clearance. 1/2 Cookie: Result: 1= does not enter airway Comment: Esophageal Screen - Complete clearance. Thin Liquid via single sip: straw: Result: 1= does not enter airway Thin Liquid via sequential sips:straw: Result: 2= enter airway/above vocal folds/ejected Comment: Esophageal Screen - Complete clearance. Barium Tablet w/ water: Result: 1= does not enter airway Comment: Esophageal Screen - Complete clearance. Barium tablet w/ applesauce: Result: 1= does not enter airway Comment: Esophageal Screen - Complete clearance. Oral Phase Labial Seal: No Labial Escape Tongue Control During Bolus Hold: Posterior escape of less than half of bolus Bolus Preparation/Mastication: Slow prolonged chewing/mashing with complete recollection Bolus Transport/Lingual Motion: Repetitive/disorganized tongue motion Oral Residue: Trace residue lining oral structures Pharyngeal Phase Initiation of Pharyngeal Swallow: Bolus head in valleculae Soft Palate Elevation: Trace column of contrast/air between soft palate and pharyngeal wall Laryngeal Elevation: Comp. Superior move thyroid cart w/comp. apprx arytenoid cart-epig pet Anterior Hyoid Excursion: Partial anterior movement Epiglottic Movement: Complete inversion Laryngeal Vestibule Closure at Height of Swallow: Incomplete; narrow column of air/contrast in laryngeal vestibule Pharyngeal Stripping Wave: Present - complete Pharyngoesophageal Segment Opening: Complete distension and complete duration; no obstruction of flow Tongue Base Retraction: Trace column of contrast between tongue base post. pharyngeal wall Pharyngeal Residue: Collection of residue within or on pharyngeal structures Esophageal Phas (more content not included)... [facility] 02[facility]27[facility]20[facility] -- LEISURE,PATRICIO Dawkins ([id number]) 1955 M Date Time Provider Department 02/27/25 JEANINE FERMIN During your visit today, we recorded the following information about you: Yolie Bautista RN 02/27/2025 8:39 AM Signed Simeon from [facility] radiology dept calling this morning as she is in need of an order for pt's Modified Barium Swallow test that is scheduled for tomorrow. After reviewing epic notes and scanned documents, it appears that Speech therapist Joy Ybarra from [facility] Speech Therapy dept saw pt and recommended this test. Per her note, pt was scheduled for 04/02/25. She also put in note that she messaged radiology asking for them to expedite the test which is now scheduled for tomorrow. Per Simeon, she needs an order faxed over to her at [phone] as soon as possible. Yanet Adams MD 02/27/2025 9:14 AM Signed Will need order sent over Blue Rendon MA 02/27/2025 11:43 AM Signed Faxed. Blue Rendon MA Allergies As of Date: 02/27/2025 (No Known Allergies) Date Reviewed: 02/08/2025 Reviewed by: Vasquez Walter MA - Fully Assessed Reason for Visit: Orders [681] Cmt: for modified barium swallow test at [facility] Primary Visit Diagnosis:Dysphagia, unspecified type [R13.10] Order(s):XR MODIFIED BARIUM SWALLOW W SPEECH THERAPY [[id number]] Order #: [id number] FUTURE Prescriptions as of 02/27/2025 - memantine (NAMENDA) 5 mg tablet Take [...] for Pain. Problem List As Of Date 02/27/2025 Noted Resolved Benign non-nodular prostatic hyperplasia with [...] 12/30/2023 Prediabetes [R73.03] 07/02/2024 Encounter Status:Closed by BLUE RENDON on 02/27/25 [facility] 02[facility]21-2025 [facility] -- PATRICIO PADRON ([id number]) 1955 M Date Time Provider Department 02/21/25 JEANINE FERMIN [facility] During your visit today, we recorded the following information about you: Jeanine Fermin APRN.[facility] 02/21/2025 2:15 PM Signed Patient had a speech pathology evaluation done at [facility] on February 20, 2025 Diagnosis patient had abnormal lung sounds and dementia. He is scheduled for a swallow evaluation April 02, 2025. Modified barium swallow scheduled. Allergies As of Date: 02/21/2025 (No Known Allergies) Date Reviewed: 02/08/2025 Reviewed by: Vasquez Walter MA - Fully Assessed Prescriptions as of 02/21/2025 - memantine (NAMENDA) 5 mg tablet Take [...] for Pain. Problem List As Of Date 02/21/2025 Noted Resolved Benign non-nodular prostatic hyperplasia with [...] 12/30/2023 Prediabetes [R73.03] 07/02/2024 Encounter Status:Closed by JEANINE FERMIN on 02/21/25 Normal [facility] SP/HP.SP.Bennie 02-20-2025 SP/HP.SP.EV [facility] Speech Pathology [address] [place] [address] / REHABILITATION SERVICES INITIAL EVALUATION MR#: [id number] Acct: [id number] Name: PATRICIO PADRON Rep #: [id number] : 1955 69 From: Joy Ybarra Referring Dr.: VIOLET Mejia Status: R EG RCR Insurance: [facility] SELF PAY INSURANCE Visit History Visit Info Date of Eval: 02/20/25 Today is Visit #: 1 Diamond Wheel Edger: BRIANNA History Attending Doctor: ANTOINE Referring Doctor: ANTOINE Reason for Referral: DR TO FAX Medical Diagnosis: Abnormal Lung Sounds R09.89; Dementia Date of Onset of Diagnosis: 02-08-25 Previous speech therapy: No Results: n/a Other Relevant Medical History/Diagnoses/Surgery: Pneumonia, GERD, Dementia, Head trauma (SAH), frequent falls, spinal stenosis Medications related to this diagnosis: Eliu Falcon Smoking Status: Never smoker Diagnosis Diagnosis: Dysphagia Pain Is pain an issue with your current prescribed condition?: No Personal Preferred language: Nigerian Patient Allergies Allergies Allergies: Allergies Penicillins Allergy (Verified 08/13/24 17:15) Upset Stomach Subjective Dysphagia Symptoms Reported Symptoms/Problems with: Coughing, Choking, Difficulty Swallowing Solids, Difficulty Swallowing Pills, Food gets stuck, Weight Loss and Hx of Pneumonia Current Diet Solids Current Diet: Regular Current Diet Liquids Current Liquids: Thin [place] free water Protocol: No Comments Comments: -: Patient referred to outpatient ST for dysphagia evaluation due to recent episode of pneumonia with abnormal lung sounds during recovery. Patient denies dysphagia, however he does not dementia and demonstrates limited insight into overall condition. Spouse report variable frequency of coughing and throat clearing through out the day, with or without intake. Of note, patient has dx of GERD. Other symptoms of note: masked facial expression, diminished vocal intensity, shuffling gait, limited endurance, balance impairment, and difficulty with vertical eye gaze. Objective Dysphagia Administered by Administered by: Self Thin Liquids Administred via: Cup and Straw Oral Transit: Delay > 1 seconds Bolus clearance: fully cleared Gagging: No Cough: none observed/unable to assess Pharyngeal phase: immediate laryngeal elevation Comments: Patient consumed thin liquids via cup and straw. No overt indications of penetration or aspiration as coughing, throat clearing, change in vocal quality, or change in respiratory pattern. Patient consume small, single sips as well as large volume, continuous sips 09/27 no s/s dysphagia. Pureed Administered via: Spoon Oral Preparation: WNL Oral Transit: WNL Bolus clearance: significant clearance/minimal residue Gagging: No Cough: none observed/unable to assess Pharyngeal phase: immediate laryngeal elevation Comments: Patient consumed pudding via spoon. No overt indications of penetration or aspiration as coughing, throat clearing, change in vocal quality, or change in respiratory pattern in 7/7 trials. Patient demonstrated reflexive multiple swallows with pudding /, resulting in total oral clearance. Regular Oral Preparation: WNL Oral Transit: Delay > 1 seconds Bolus clearance: significant clearance/minimal residue Gagging: No Cough: none observed/unable to assess Pharyngeal phase: immediate laryngeal elevation Comments: Patient consumed mixed texture trail mix. No overt indications of penetration or aspiration as coughing, throat clearing, change in vocal quality, or change in respiratory pattern. Bolus prep AND breakdown appears WNL IN 5/5 trials. Independently utilizes subsequent dry swallow or liquid wash to clear mild lingual residue/particulates. Swallowing Impairment Contributing Factors to Swallowing Impairment: Other Other: Cognition Impact Impact on Safety Functioning: Risk for Aspiration and Risk for Inadequate Nutrition/Hydration Comments: Spouse reports poor appetite. Drinks 1 Ensure QD. Recommendations Modified Barium Swallow/Cookie Swallow Recommended: Yes Swallowing Treatment: Yes Diet Texture Recommendations Solids: Regular (Level 7) Liquids: Thin (Level 0) [place]ates free water Protocol: No Other: MBSS scheduled for 04/02/25. UPHOLSTERY TECHNICIAN contacted radiology and [facility] UPHOLSTERY TECHNICIAN to expedite test, of possible to determine course of treatment, as patient is medically homebound and does not wish to return to outpatient. Spouse to contact PCP for home health care referral. Safety Saftey Precautions/Swallowing Recommendations (Check all that Apply): Supervision Needed All Meals, Upright Position at Least 30 Minutes After Meals, Small Sips Bites when Eating, Multiple Swallows and Alternate Liquids Solids Other: Although patient did not exhibit overt s/s dysphagia with cli (more content not included)... Normal [facility] [id number] 02-19-2025 [id number] HNO ID: [id number] Author: GISELLE VINSON, OTR/L Service: ? Author Type: Occupational Therapist Type: [id number] Filed: 02/19/2025 17:04 Note Text: [facility] Occupational Therapy Plan of Care Certification Patient Name: Patricio Padron : 1955 [facility] #: [id number] Date: 02/19/2025 To: Jayda Ace PA-C From Therapist: SAVITA Mendez RE: Patient Certification/ Recertification Your review, approval and electronic signature are required in order to comply with Payor: [employer]IC[employer] / Plan: [employer] MEDICARE PPO / Product Type: PPO / regulations. The identified Occupational Therapy PLAN OF CARE for the patient is as follows: F03.90 Dementia without behavioral disturbance (HCC) R41.3 Memory loss PLAN OF CARE: SUMMARY AND RECOMMENDATIONS *The information in this report indicates the ability of the corporate driver to operate a motor vehicle on this date only. Due to the complex nature of the safe operation of a motor vehicle, and considering the demands of integrating changing environmental conditions, and visual, cognitive, and physical skills, successful completion of this program is not a guarantee of safe driving in the future. ASSESSMENT OF INSTRUMENTAL ADL AND COMMUNITY MOBILITY: Patricio Padron presents with the diagnosis of dementia without behavioral disturbance, memory loss. This patient presents with impairments of impaired short term memory, impaired orientation to time, decreased problem solving, impaired contrast sensitivity, decreased night time glare acuity, impaired peripheral vision, decreased speed of processing visual perception and impaired attention and divided attention. . RECOMMENDATIONS: ADL/IADL Recommendations: 1. Recommend close supervision with all IADL tasks and supervision to physical assistance with ADL. 2. Non glare lighting in the home for optimal vision during lower light times of day. 3. Remove all tripping hazards from walkways for safety. Driving Recommendations: REFRAIN FROM DRIVING - Patient should retire from driving at this time. Patient may benefit from PT services due to decreased strength and endurance to the point he is requiring assistance to get off the toilet. Patient may benefit from OT and or ST for ADL maximizing independence as for cognitive management. Herrera's Visual Field Exam Requested: No Recommended Complete Eye Exam: No Prognosis: Poor Poor due to: memory deficits, poor past response to therapy intervention, limited tolerance to activity, chronic nature of impairments, clinical presentation, multiple co- morbidities Goals for Episode of Care created on 02/19/25 through 02/19/25 Patient and Caregiver will demonstrate understanding of safety issues in the home and/or community with assistance as recommended for instrumental activities of daily living , community mobility, and driving Planned Interventions, Frequency, and Duration: Current Frequency: Discontinue Therapy Services Duration: 1 visit Total Number of Visits Planned: 1 Patient to be see for Self-shelter management ([id number]), Community / Work Reintegration, Roentgenologist rehab evaluation PLAN FOR NEXT VISIT: D/C OT at this time Patient demonstrates fair understanding of plan of care and treatment. The above goals and plan of care were discussed and agreed upon by patient/family. For further details regarding this patient refer to the Occupational Therapy electronically documented visit dated 02/19/2025. Provider Attestation I have reviewed the treatment plan for Patricio Padron, [facility]# [id number] for the period of 02/19/25 -- 02/19/25, established on 02/19/2025. Signature certifies the need for therapy services. Normal [facility]THERAPYon 02-19-2025 CNTHERAPY OT/PT/Speech Visit ([facility]) -- PATRICIO PADRON ([id number]) 1955 M Date Time Provider Department 02/19/25 12:45 PM GISELLE VINSON Date Time Provider Department Center 02/19/2025 12:45 PM [id number] VINSON [facility] Reason for Visit: OT EVAL [748] OT Discharge [750] Visit Diagnoses:Dementia without behavioral disturbance (HCC) [F03.90] Memory loss [R41.3] Allergies As of Date: 02/19/2025 (No Known Allergies) Date Reviewed: 02/08/2025 Reviewed by: Vasquez Walter MA - Fully Assessed Prescriptions as of 02/19/2025 - memantine (NAMENDA) 5 mg tablet Take 1 tablet by mouth two times a day. - terazosin (HYTRIN) 5 mg capsule Take 1 capsule by mouth daily at bedtime. - pravastatin (PRAVACHOL) 40 mg tablet Take 1 tablet by mouth once daily. - acetaminophen (TYLENOL) 325 mg tablet Take 2 tablets by mouth every 6 hours as needed for Pain. Letter Text Normal [facility] 02-14-2025 [facility] -- VITO,PATRICIO Dawkins ([id number]) 1955 M Date Time Provider Department 02/14/25 YANET ADAMS [facility] During your visit today, we recorded the following information about you: Nica Marin RN 02/14/2025 12:26 PM Signed [facility]'s swallowing evaluation order for continuity of care. Faxed as requested. Nica Marin RN Allergies As of Date: 02/14/2025 (No Known Allergies) Date Reviewed: 02/08/2025 Reviewed by: Vasquez Walter MA - Fully Assessed Reason for Visit: Fax Request [Other] Prescriptions as of 02/14/2025 - memantine (NAMENDA) 5 mg tablet Take [...] for Pain. Problem List As Of Date 02/14/2025 Noted Resolved Benign non-nodular prostatic hyperplasia with [...] 12/30/2023 Prediabetes [R73.03] 07/02/2024 Encounter Status:Closed by NICA MARIN on 02/14/25 [facility] 02-11-2025 [facility] Telephone ([place]) -- PATRICIO PADRON ([id number]) 1955 M Date Time Provider Department 02/11/25 MARGIE GRANADO During your visit today, we recorded the following information about you: Margie Granado MSW 02/11/2025 11:01 AM Signed Sw spoke with patient spouse regarding patient care needs. Discussed [facility] Older Adult Resource Guide. Discussed home comfort advisor agency options ie. [facility], [facility], [facility]. Discussed [facility]. Sw will compile above agency info and mail to patient/spouse. Sw confirmed address with spouse to mail information. Allergies As of Date: 02/11/2025 (No Known Allergies) Date Reviewed: 02/08/2025 Reviewed by: Vasquez Walter MA - Fully Assessed Prescriptions as of 02/13/2025 - benzonatate (TESSALON PERLE) 100 mg capsule Take 1 capsule by mouth three times a day as needed for cough for up to 15 days. - memantine (NAMENDA) 5 mg tablet Take [...] for Pain. Problem List As Of Date 02/11/2025 Noted Resolved Benign non-nodular prostatic hyperplasia with [...] 12/30/2023 Prediabetes [R73.03] 07/02/2024 Encounter Status:Closed by MARGIE GRANADO on 02/13/25 Normal [facility] CBC W Auto Differential pane l (Bld)on 02-08-2025 Basophils (Bld) [#/Vol] 0.09 10*3/uL Normal <0.11 [facility] Comment on above: Order Comment: Speci men Type: BLOOD SPECIMENOrdering Facility: [facility] Address: [address] [place] [address] Performed By: #### 5 7021-8 ####[facility] LABCLIA [id number] [place] [address] [place] Basophils/100 WBC (Bld) 0.8 % Normal [facility] Comment on above: Order Comment: Speci men Type: BLOOD SPECIMENOrdering Facility: [facility] Address: [address] [place] [address] Performed By: #### 5 7021-8 ####[facility] LABCLIA [id number] [place] [address] [place] Differential cell count method Nom (Bld) Auto Normal [facility] Comment on above: Order Comment: Speci men Type: BLOOD SPECIMENOrdering Facility: [facility] Address: [address] [place] [address] Performed By: #### 5 7021-8 ####[facility] LABCLIA [id number] [place] [address] [place] Eosinophils (Bld) [#/Vol] 0.20 10*3/uL Normal <0.46 [facility] Comment on above: Order Comment: Speci men Type: BLOOD SPECIMENOrdering Facility: [facility] Address: [address] [place] [address] Performed By: #### 5 7021-8 ####[facility] LABCLIA [id number] [place] [address] [address] [place] Eosinophils/100 WBC (Bld) 1.8 % Normal [facility] Comment on above: Order Comment: Speci men Type: BLOOD SPECIMENOrdering Facility: [facility] Address: [address] [place] [address] Performed By: #### 5 7021-8 ####[facility] LABCLIA [id number] [place] [address] [place] Erythrocyte distribution width (RBC) [Ratio] 12.5 % Normal 11.5-15.0 [facility] Comment on above: Order Comment: Speci men Type: BLOOD SPECIMENOrdering Facility: [facility] Address: [address] [place] [address] Performed By: #### 5 7021-8 ####[facility] LABCLIA [id number] [place] [address] [place] Hematocrit (Bld) [Volume fraction] 45.4 % Normal 39.0-51.0 [facility] Comment on above: Order Comment: Speci men Type: BLOOD SPECIMENOrdering Facility: [facility] Address: [address] [place] [address] Performed By: #### 5 7021-8 ####[facility] LABCLIA [id number] [place] [address] [place] Hemoglobin (Bld) [Mass/Vol] 15.2 g/dL Normal 13.0-17.0 [facility] Comment on above: Order Comment: Speci men Type: BLOOD SPECIMENOrdering Facility: [facility] Address: [address] [place] [address] Performed By: #### 5 7021-8 ####[facility] LABCLIA [id number] [place] [address] [place] Immature granulocytes (Bld) [#/Vol] 0.04 10*3/uL Normal <0.10 [facility] Comment on above: Order Comment: Speci men Type: BLOOD SPECIMENOrdering Facility: [facility] Address: [address] [place] [address] Performed By: #### 5 7021-8 ####[facility] LABCLIA [id number] [address] STATES [facility] Immature granulocytes/100 WBC (Bld) 0.4 % Normal [facility] Comment on above: Order Comment: Speci men Type: BLOOD SPECIMENOrdering Facility: [facility] Address: [address] [place] [address] Performed By: #### 5 7021-8 ####[facility] LABCLIA [id number] [place] [address] [place] Lymphocytes (Bld) [#/Vol] 2.56 10*3/uL Normal 1.00-4.00 [facility] Comment on above: Order Comment: Speci men Type: BLOOD SPECIMENOrdering Facility: [facility] Address: [address] [place] [address] Performed By: #### 5 7021-8 ####[facility] LABIA [id number] [place] [address] [place] Lymphocytes/100 WBC (Bld) 22.7 % Normal [facility] Comment on above: Order Comment: Speci men Type: BLOOD SPECIMENOrdering Facility: [facility] Address: [address] [place] [address] Performed By: #### 5 7021-8 ####[facility] LABCLIA [id number] [place] [address] [place] MCH (RBC) [Entitic mass] 29.8 pg Normal 26.0-34.0 [facility] Comment on above: Order Comment: Speci men Type: BLOOD SPECIMENOrdering Facility: [facility] Address: [address] [place] [address] Performed By: #### 5 7021-8 ####[facility] LABCLIA [id number] [place] [address] [place] MCHC (RBC) [Mass/Vol] 33.5 g/dL Normal 30.5-36.[address] [facility] Comment on above: Order Comment: Speci men Type: BLOOD SPECIMENOrdering Facility: [facility] Address: [address] [place] [address] Performed By: #### 5 7021-8 ####[facility] LABIA [id number] [place] [address] [place] MCV (RBC) [Entitic vol] 89.0 fL Normal 80.0-100.0 [facility] Comment on above: Order Comment: Speci men Type: BLOOD SPECIMENOrdering Facility: [facility] Address: [address] [place] [address] Performed By: #### 5 7021-8 ####[facility] LABIA [id number] [place] [address] [place] Monocytes (Bld) [#/Vol] 1.02 10*3/uL High <0.87 [facility] Comment on above: Order Comment: Speci men Type: BLOOD SPECIMENOrdering Facility: [facility] Address: [address] [place] [address] Performed By: #### 5 7021-8 ####[facility] LABIA [id number] [place] [address] [place] Monocytes/100 WBC (Bld) 9.0 % Normal [facility] Comment on above: Order Comment: Speci men Type: BLOOD SPECIMENOrdering Facility: [facility] Address: [address] [place] [address] Performed By: #### 5 7021-8 ####[facility] LABCLIA [id number] [place] [id number] [place] Neutrophils (Bld) [#/Vol] 7.38 10*3/uL Normal 1.45-7.50 [facility] Comment on above: Order Comment: Speci men Type: BLOOD SPECIMENOrdering Facility: [facility] Address: [address] [place] [address] Performed By: #### 5 7021-8 ####[facility] LABCLIA [id number] [place] [address] [place] Neutrophils/100 WBC (Bld) 65.3 % Normal [facility] Comment on above: Order Comment: Speci men Type: BLOOD SPECIMENOrdering Facility: [facility] Address: [address] [place] [address] Performed By: #### 5 7021-8 ####[facility] LABCLIA [id number] [place] [address] [place] Nucleated RBC (Bld) [#/Vol] 10*3/uL Normal <0.01 [facility] Comment on above: Order Comment: Speci men Type: BLOOD SPECIMENOrdering Facility: [facility] Address: [address] [place] [address] Performed By: #### 5 7021-8 ####[facility] LABCLIA [id number] [place] [address] [place] Nucleated RBC/100 WBC (Bld) [Ratio] 0.0 /100 WBC Normal [facility] Comment on above: Order Comment: Speci men Type: BLOOD SPECIMENOrdering Facility: [facility] Address: [address] [place] [address] Performed By: #### 5 7021-8 ####[facility] LABCLIA [id number] [place] [id number] [place] Platelet mean volume (Bld) [Entitic vol] 9.4 fL Normal 9.0-12.7 [facility] Comment on above: Order Comment: Speci men Type: BLOOD SPECIMENOrdering Facility: [facility] Address: [address] [place] [address] Performed By: #### 5 7021-8 ####[facility] LABCLIA [id number] [place] [address] [place] Platelets (Bld) [#/Vol] 328 10*3/uL Normal 150-400 [facility] Comment on above: Order Comment: Speci men Type: BLOOD SPECIMENOrdering Facility: [facility] Address: [address] [place] [address] Performed By: #### 5 7021-8 ####[facility] [id number] [place] [address] [place] RBC (Bld) [#/Vol] 5.10 10*6/uL Normal 4.20-6.00 [facility] Comment on above: Order Comment: Speci men Type: BLOOD SPECIMENOrdering Facility: [facility] Address: [address] [place] [address] Performed By: #### 5 7021-8 ####[facility] [id number] [place] [address] [place] WBC (Bld) [#/Vol] 11.29 10*3/uL High 3.70-11.00 [facility] Comment on above: Order Comment: Speci men Type: BLOOD SPECIMENOrdering Facility: [facility] Address: [address] [place] [address] Performed By: #### 5 7021-8 ####[facility] [id number] [place] [address] [place] CNOVon 02-08-2025 CNOV Office Visit (FAMPWS ) -- PATRICIO PADRON ([id number]) 1955 [place] Date Time Provider Department 02/08/25 2:00 PM JEANINE FERMIN During your visit today, we recorded the following information about you: Temperature Pulse Blood pressure Weight 97.9 degrees 111/minute 120/74 66.2 kg Jeanine Fermin APRN.CNP 03/21/2025 8:15 AM Addendum Patricio is a 69-year-old male with a history of hemorrhagic CVA, seen today for follow-up of pneumonia. Pneumonia: - Recent treatment with doxycycline and prednisone. - Noted improvement in breathing. - Occasional cough, but significantly reduced. - Denies fever, chills, headache, or chest congestion. - Palliative care nurse noted abnormal lung sounds two days ago. - Scheduled for a follow-up visit in four weeks due to recent illness. Hemorrhagic CVA: - History of hemorrhagic CVA. - Recent issues with dysphagia, though not currently observed. - Increasing weakness and fatigue. - Difficulty with ambulation; uses a walker and is primarily homebound. - Requires assistance with ADLs, including bathing and dressing. - Recent onset of urinary incontinence; using Depends. PAST MEDICAL HISTORY: PAST MEDICAL HISTORY Diagnosis Date Arthritis BPH with obstruction/lower urinary tract symptoms Renal lesion 07/26/2023 Rosacea Subarachnoid hemorrhage (HCC) 08/11/2023 PAST SURGICAL HISTORY Procedure Laterality Date PAST SURGICAL HISTORY OF flexible cystoscopy PAST SURGICAL HISTORY OF 1958 tonsillectomy PAST SURGICAL HISTORY OF 2017 left eye surgery PAST SURGICAL HISTORY OF 2023 Surgery to drain hematoma on brain- not successful TRANSURETHRAL ELEC-SURG PROSTATECTOM N/A 08/18/2021 TRANSURETHRAL ELEC-SURG PROSTATECTOM 2019 ALLERGIES Patient has no known allergies. MEDICATIONS Current Outpatient Medications Medication Sig benzonatate (TESSALON PERLE) 100 mg capsule Take 1 capsule by mouth three times a day as needed for cough for up to 15 days. memantine (NAMENDA) 5 mg tablet Take 1 [...] Alcohol use: Not Currently Drug use: Never REVIEW OF SYSTEMS Constitutional: (-) fever, (-) chills, (+) weakness Head: (-) headache Ears/Nose/Mouth/Throat: (-) congestion Respiratory: (+) occasional cough, (-) chest congestion Gastrointestinal: (-) nausea, (-) vomiting, (+) decreased appetite Genitourinary: (+) urinary incontinence Musculoskeletal: (-) body aches EXAM: BP 120/74 Pulse 111 Temp 36.6 ?C (97.9 ?F) Wt 66.2 kg (146 lb) SpO2 95% BMI 24.30 kg/m? PHYSICAL EXAM: GENERAL: NAD, alert and some dementia SKIN: Unremarkable, no rash or skin lesions. HEAD: Normocephalic. EARS: Right ear canal obstructed with cerumen, left ear canal clear, TM normal. NOSE/SINUSES: Nares erythematous with mild erosion and clear mucus drainage. Septum midline. No sinus tenderness. OROPHARYNX: Lips, mucosa, and tongue normal, good dentition. No oral lesions noted. NECK: Supple, no lymphadenopathy, normal thyroid, no carotid bruits. LUNGS: Clear to auscultation bilaterally, no wheezes/rhonchi/rales. HEART: Regular rate and rhythm, no murmurs. No ectopy. Tachycardic. EXTREMITIES: Normal, no deformities, no skin discoloration, no edema. ABDOMEN: Soft, non-tender, normal bowel sounds. NEURO: irritable, presents in a wheelchair, generalized debilty, no involuntary motions. LABS: today AND chest Xray ASSESSMENT/PLAN: 1. Abnormal lung sounds - ICD9: 786.7, ICD10: R09.89 (primary diagnosis) Check chest Xray today - SWALLOW EVALUATION 2. Prediabetes - ICD9: 790.29, ICD10: R73.03 Check hemoglobin A1c 3. Hypoalbuminemia - ICD9: 273.8, ICD10: E88.09 Check CMP 4. Cervical myelopathy (HCC) - ICD9: 721.1, ICD10: G95.9 Ongoing debility - PRIMARY CARE SOCIAL WORK CONSULT - DME SUPPLY OR ACCESSORY, NOS for depends 5. History of subarachnoid hemorrhage - ICD9: V12.59, ICD10: Z86.79 Stable - PRIMARY CARE SOCIAL WORK CONSULT 6. Pure hypercholesterolemia - ICD9: 272.0, ICD10: E78.00 Check labs 7. Dementia without behavioral disturbance (HCC) - ICD9: 294.20, ICD10: F03.90 worsening - PRIMARY CARE SOCIAL WORK CONSULT - (more content not included)... Normal [facility] Comprehensive metabolic 2000 panelon 02-08-2025 Albumin [Mass/Vol] 4.0 g/dL Normal 3.9-4.9 [facility] Comment on above: Order Comment: Speci men Type: BLOOD SPECIMENOrdering Facility: [facility] Address: [address] [place] [address] Performed By: #### 2 4323-8, 3016-3, LIPNF ####[facility] LABCLIA [id number] [place] [address] [place] ALP [Catalytic activity/Vol] 79 U/L Normal 38-113 [facility] Comment on above: Order Comment: Speci men Type: BLOOD SPECIMENOrdering Facility: [facility] Address: [address] [place] [address] Performed By: #### 2 4323-8, 3016-3, LIPNF ####[facility] LABCLIA [id number] [place] [address] [place] ALT [Catalytic activity/Vol] 16 U/L Normal 10-54 [facility] Comment on above: Order Comment: Speci men Type: BLOOD SPECIMENOrdering Facility: [facility] Address: [address] [place] [address] Performed By: #### 2 4323-8, 3016-3, LIPNF ####[facility] LABCLIA [id number] [place] [address] [place] Anion gap [Moles/Vol] 10 mmol/L Normal 8-[address] [facility] Comment on above: Order Comment: Speci men Type: BLOOD SPECIMENOrdering Facility: [facility] Address: [address] [place] [address] Performed By: #### 2 4323-8, 3016-3, LIPNF ####[facility] LABCLIA [id number] [facility] [place] [address] [place] AST [Catalytic activity/Vol] 20 U/L Normal 14-40 [facility] Comment on above: Order Comment: Speci men Type: BLOOD SPECIMENOrdering Facility: [facility] Address: [address] [place] [address] Performed By: #### 2 4323-8, 3015-3, LIPNF ####[facility] LABCLIA [id number] [place] [address] [place] Bilirubin [Mass/Vol] 0.5 mg/dL Normal 0.2-1.3 [facility] Comment on above: Order Comment: Speci men Type: BLOOD SPECIMENOrdering Facility: [facility] Address: [address] [place] [address] Performed By: #### 2 4323-8, 3015-3, LIPNF ####[facility] LABCLIA [id number] [place] [id number] [place] Calcium [Mass/Vol] 9.4 mg/dL Normal 8.5-10.2 [facility] Comment on above: Order Comment: Speci men Type: BLOOD SPECIMENOrdering Facility: [facility] Address: [address] [place], [place] [address] Performed By: #### 2 4323-8, 6-3, LIPNF ####[facility] LABCLIA [id number] [facility] [place] [id number] [place] Chloride [Moles/Vol] 103 mmol/L Normal 98-107 [facility] Comment on above: Order Comment: Speci men Type: BLOOD SPECIMENOrdering Facility: [facility] Address: [address] [place] [address] Performed By: #### 2 4323-8, 3016-3, LIPNF ####[facility] LABIA [id number] [place] [address] [place] CO2 [Moles/Vol] 25 mmol/L Normal 22-30 [facility] Comment on above: Order Comment: Speci men Type: BLOOD SPECIMENOrdering Facility: [facility] Address: [address] [place] [address] Performed By: #### 2 4323-8, 3015-3, LIPNF ####[facility] [id number] [place] [address] [place] Creatinine [Mass/Vol] 0.65 mg/dL Low 0.73-1.[address] [facility] Comment on above: Order Comment: Speci men Type: BLOOD SPECIMENOrdering Facility: [facility] Address: [address] [place] [address] Performed By: #### 2 4323-8, 3015-3, LIPNF ####[facility] [id number] [address] [place] Creatinine and Glomerular filtration rate.predicted panel (S/P/Bld) 101 mL/min/1.73m??? Normal >=60 [facility] Comment on above: Order Comment: Speci men Type: BLOOD SPECIMENOrdering Facility: [facility] Address: [address] [place] [address] Result Comment: Katerine mated Glomerular Filtration Rate [...] reflect actual GFR. Performed By: #### 2 4323-8, 6-3, LIPNF ####[facility] LABCLIA [id number] [address] [address] [place] Glucose [Mass/Vol] 122 mg/dL High 74-99 [facility] Comment on above: Order Comment: Speci men Type: BLOOD SPECIMENOrdering Facility: [facility] Address: [address] [place] [address] Result Comment: The [place] Diabetes Association (ADA) provides guidance for cutoff [...] Standards of Medical Care in Diabetes 2016, [place] Diabetes Association. Diabetes Care. 2016.39(Suppl 1). Performed By: #### 2 4323-8, 3016-3, LIPNF ####[facility] LABCLIA [id number] [place] [address] [place] Potassium [Moles/Vol] 4.1 mmol/L Normal 3.7-5.[address] [facility] Comment on above: Order Comment: Speci men Type: BLOOD SPECIMENOrdering Facility: [facility] Address: [address] [place] [address] Performed By: #### 2 4323-8, 3016-3, LIPNF ####[facility] LABIA [id number] [place] [id number] [place] Protein [Mass/Vol] 7.1 g/dL Normal 6.3-8.0 [facility] Comment on above: Order Comment: Speci men Type: BLOOD SPECIMENOrdering Facility: [facility] Address: [address] [place] [address] Performed By: #### 2 4323-8, 3016-3, LIPNF ####[facility] LABCLIA [id number] [address] [place] [address] [place] Sodium [Moles/Vol] 138 mmol/L Normal 136-144 [facility] Comment on above: Order Comment: Speci men Type: BLOOD SPECIMENOrdering Facility: [facility] Address: [address] [place] [address] Performed By: #### 2 4323-8, 3016-3, LIPNF ####[facility] LABCLIA [id number] [address] [place] [address] [place] Urea nitrogen [Mass/Vol] 11 mg/dL Normal 9-24 [facility] Comment on above: Order Comment: Speci men Type: BLOOD SPECIMENOrdering Facility: [facility] Address: [address] [place] [address] Performed By: #### 2 4323-8, 3016-3, LIPNF ####[facility] LABIA [id number] [address] [address] [place] HbA1c (Bld)on 02-08-2025 Average glucose Estimated from glycated hemoglobin (Bld) [Mass/Vol] 120 mg/dL Normal [facility] Comment on above: Order Comment: Speci men Type: BLOOD SPECIMENOrdering Facility: [facility] Address: [address] [place] [address] Result Comment: eAG: (Estimated average glucose) is a calculated value from HgbA1c and is public service representative of the average blood glucose level in the last 2-3 month period. Performed By: #### 5 5454-3 ####[facility] LABIA [id number] [address] [address] [place] HbA1c (Bld) [Mass fraction] 5.8 % High 4.3-5.6 [facility] Comment on above: Order Comment: Speci men Type: BLOOD SPECIMENOrdering Facility: [facility] Address: [address] [place] [address] Result Comment: Amer [place] Diabetes Association guidelines indicate that patients with HgbA1c in the range 5.7-6.4% are at increased risk for development of diabetes, and intervention by lifestyle modification may be beneficial. HgbA1c greater or equal to 6.5% is considered diagnostic of diabetes. Performed By: #### 5 5454-3 ####[facility] LABCLIA [id number] [place] [address] [place] LIPID PANEL, NONFASTINGon Cholesterol [Mass/Vol] 153 mg/dL Normal <200 [facility] Comment on above: Order Comment: George saldivar Type: BLOOD SPECIMENOrdering Facility: [facility] Address: [address] [place] [address] Result Comment: <200 mg/dL, Desirable 200-239 mg/dL, Borderline high >239 mg/dL, High Performed By: #### 2 4323-8, 3016-3, LIPNF ####[facility] LABIA [id number] [address] STATES OF [facility] HDL CHOLESTEROL, NF 60 mg/dL Normal >39 [facility] Comment on above: Order Comment: George saldivar Type: BLOOD SPECIMENOrdering Facility: [facility] Address: [address] [place] [address] Result Comment: 40-5 9 mg/dL, Acceptable >59 mg/dL, High: Negative risk factor for coronary heart disease <40 mg/dL, Low: Positive risk factor for coronary heart disease Performed By: #### 2 4323-8, 3016-3, LIPNF ####[facility] LABIA [id number] [place] [id number] [place] LDL CHOLESTEROL CALCULATED, NF 67 mg/dL Normal <100 [facility] Comment on above: Order Comment: George saldivar Type: BLOOD SPECIMENOrdering Facility: [facility] Address: [address] [place] [address] Result Comment: <100 mg/dL, Optimal 100-129 mg/dL, Near optimal/above optimal 130-159 mg/dL, Borderline high 160-189 mg/dL, High >189 mg/dL, Very high Secondary prevention optimal LDL Cholesterol levels are recommended to be <70 mg/dL LDL cholesterol is calculated using the Dejesus-NIH equation. Performed By: #### 2 4323-8, 3016-3, LIPNF ####[facility] LABCLIA [id number] [address] LDL/HDL RATIO, NF 1.12 mg/dL Normal <2.54 [facility] Comment on above: Order Comment: Speci men Type: BLOOD SPECIMENOrdering Facility: [facility] Address: [address] [place] [address] Result Comment: Refe rence: 1. National Cholesterol Education Program ATP III Guideline At-A-Glance Quick Desk Reference: National Heart, Lung, and Blood [place]. National Institutes of Health. 2001: NIH Publication No. 01-3305. 2. An International Atherosclerosis Society position paper: global recommendations for the management of dyslipidemia: executive summary, Atherosclerosis. 2014: 232(2):410-413. Performed By: #### 2 4323-8, 6-3, LIPNF ####[facility] LABCLIA [id number] [address] NON HDL CHOL, NF 93 mg/dL Normal <130 [facility] Comment on above: Order Comment: George saldivar Type: BLOOD SPECIMENOrdering Facility: [facility] Address: [address] [place] [address] Result Comment: <130 mg/dL, Optimal 130-159 mg/dL, Near optimal/above optimal 160-189 mg/dL, Borderline high 190-219 mg/dL, High >219 mg/dL, Very high Secondary prevention optimal non HDL Cholesterol levels are recommended to be <100 mg/dL Performed By: #### 2 4323-8, 3016-3, LIPNF ####[facility] LABCLIA [id number] [address] OF [facility] T CHOL/HDL RATIO NF 2.55 mg/dL Normal <5.10 [facility] Comment on above: Order Comment: Speci men Type: BLOOD SPECIMENOrdering Facility: [facility] Address: [address] [place] [address] Performed By: #### 2 4323-8, 3016-3, LIPNF ####[facility] LABCLIA [id number] [place] [address] [place] TRIGLYCERIDES, NF 156 mg/dL High <150 [facility] Comment on above: Order Comment: Speci men Type: BLOOD SPECIMENOrdering Facility: [facility] Address: [address] [place] [address] Result Comment: <150 mg/dL, Normal 150-199 mg/dL, Borderline high 200-499 mg/dL, High >499 mg/dL, Very high Performed By: #### 2 4323-8, 3016-3, LIPNF ####[facility] LABCLIA [id number] [place] [address] [place] VLDL CHOLESTEROL, NF 23 mg/dL Normal <30 [facility] Comment on above: Order Comment: Speci men Type: BLOOD SPECIMENOrdering Facility: [facility] Address: [address] [place] [address] Performed By: #### 2 4323-8, 3016-3, LIPNF ####[facility] LABCLIA [id number] [place] [address] [place] TSH SerPl-aCncon 02-08-2025 TSH Qn 1.740 m[IU]/L Normal 0.270-4.200 [facility] Comment on above: Order Comment: Speci men Type: BLOOD SPECIMENOrdering Facility: [facility] Address: [address] [place] [address] Performed By: #### 2 4323-8, 3016-3, LIPNF ####[facility] LABCLIA [id number] [place] [address] [place] Urinalysis complete panel (U )on 02-08-2025 Bacteria LM.HPF (Urine sed) [#/Area] Negative Normal Negative [facility] Comment on above: Order Comment: Speci men Type: URINE SPECIMENOrdering Facility: [facility] Address: [address] [place] [address] Performed By: #### 2 4356-8 ####[facility] LABCLIA [id number] [place] [address] [place] Bilirubin Ql (U) Negative Normal Negative [facility] Comment on above: Order Comment: Speci men Type: URINE SPECIMENOrdering Facility: [facility] Address: [address] [place] [address] Performed By: #### 2 4356-8 ####[facility] LABCLIA [id number] [place] [address] [place] Clarity (Unsp spec) Clear Normal Clear [facility] Comment on above: Order Comment: Speci men Type: URINE SPECIMENOrdering Facility: [facility] Address: [address] [place] [address] Performed By: #### 2 4356-8 ####[facility] LABCLIA [id number] [address] STATES OF [facility] Color (U) Yellow Normal Yellow [facility] Comment on above: Order Comment: Speci men Type: URINE SPECIMENOrdering Facility: [facility] Address: [address] [place] [address] Performed By: #### 2 4356-8 ####[facility] LABCLIA [id number] [address] [place] Epithelial cells LM.HPF (Urine sed) [#/Area] None Seen Normal [facility] Comment on above: Order Comment: Speci men Type: URINE SPECIMENOrdering Facility: [facility] Address: [address] [place] [address] Performed By: #### 2 4356-8 ####[facility] LABCLIA [id number] [facility] [id number], [place] [address] [place] Glucose Test strip (U) [Mass/Vol] Negative Normal Negative [facility] Comment on above: Order Comment: Speci men Type: URINE SPECIMENOrdering Facility: [facility] Address: [address] [place] [address] Performed By: #### 2 4356-8 ####[facility] LABCLIA [id number] [facility] [address] [place] [address] [place] Hemoglobin Ql (U) Negative Normal Negative [facility] Comment on above: Order Comment: Speci men Type: URINE SPECIMENOrdering Facility: [facility] Address: [address] [place] [address] Performed By: #### 2 4356-8 ####[facility] LABCLIA [id number] [facility] [address] [place] [address] [place] Hyaline casts (Urine sed) [#/Area] 0 /[LPF] Normal 0 /LPF [facility] Comment on above: Order Comment: Speci men Type: URINE SPECIMENOrdering Facility: [facility] Address: [address] [place] [address] Performed By: #### 2 4356-8 ####[facility] LABCLIA [id number] [facility] [address] [place] [address] [place] Ketones Ql (U) Negative Normal Negative [facility] Comment on above: Order Comment: Speci men Type: URINE SPECIMENOrdering Facility: [facility] Address: [address] [place], [place] [address] Performed By: #### 2 4356-8 ####[facility] LABCLIA [id number] [address] [place] [address] [place] Leukocyte esterase Test strip Ql (U) Negative Normal Negative [facility] Comment on above: Order Comment: Speci men Type: URINE SPECIMENOrdering Facility: [facility] Address: [address] [place] [address] Performed By: #### 2 4356-8 ####[facility] LABCLIA [id number] [place] [address] [place] Nitrite Ql (U) Negative Normal Negative [facility] Comment on above: Order Comment: Speci men Type: URINE SPECIMENOrdering Facility: [facility] Address: [address] [place] [address] Performed By: #### 2 4356-8 ####[facility] LABIA [id number] [place] [address] [place] pH (U) 7.0 [pH] Normal <8.5 [facility] Comment on above: Order Comment: Speci men Type: URINE SPECIMENOrdering Facility: [facility] Address: [address] [place] [address] Performed By: #### 2 4356-8 ####[facility] LABIA [id number] [place] [address] [place] Protein (U) [Mass/Vol] Negative Normal Negative [facility] Comment on above: Order Comment: Speci men Type: URINE SPECIMENOrdering Facility: [facility] Address: [address] [place] [address] Performed By: #### 2 4356-8 ####[facility] LABIA [id number] [place] [address] [place] RBC LM.HPF (Urine sed) [#/Area] 0-2 /HPF Normal 0-2 /HPF [facility] Comment on above: Order Comment: Speci men Type: URINE SPECIMENOrdering Facility: [facility] Address: [address] [place] [address] Performed By: #### 2 4356-8 ####[facility] LABIA [id number] [place] [address] [place] Specific gravity (U) [Rel density] 1.013 Normal 1.005-1.030 [facility] Comment on above: Order Comment: Speci men Type: URINE SPECIMENOrdering Facility: [facility] Address: [address] [place] [address] Performed By: #### 2 4356-8 ####[facility] [id number] [place] [address] [place] Urobilinogen Ql (U) 0.2 EU/dL Normal 0.2-1.0 EU/dL [facility] Comment on above: Order Comment: Speci men Type: URINE SPECIMENOrdering Facility: [facility] Address: [address] [place] [address] Performed By: #### 2 4356-8 ####[facility] [id number] [place] [address] [place] WBC LM.HPF (Urine sed) [#/Area] 0-5 /HPF Normal 0-5 /HPF [facility] Comment on above: Order Comment: Speci men Type: URINE SPECIMENOrdering Facility: [facility] Address: [address] [place] [address] Performed By: #### 2 4356-8 ####[facility] [id number] [place] [address] [place] XR CHEST 2V FRONTAL/LATon XR CHEST 2V FRONTAL/LAT * * *Final Report* * * DATE OF EXAM: Feb 08 2025 3:39PM WOX [id number] - XR CHEST 2V FRONTAL/LAT / PROCEDURE REASON: Abnormal lung sounds * * * * Physician Interpretation * * * * EXAMINATION: CHEST RADIOGRAPH (2 VIEW FRONTAL and LATERAL) CLINICAL HISTORY: Abnormal lung sounds MQ: [id number] EXAM DATE/TIME: 02/08/2025 3:39 PM COMPARISON: 03/01/2023 RESULT: Lines, tubes, and devices: None. Lungs and pleura: Pleural parenchymal scarring left lower lung zone anteriorly. Linear atelectasis versus fissural thickening left upper lobe no active consolidation or pleural effusion. No parenchymal nodules. Cardiomediastinal silhouette: Normal cardiomediastinal silhouette. Bones and soft tissues: Unremarkable. IMPRESSION: Chronic changes as detailed above. No acute process Septic Tank Setter: ANKIT Transcribe Date/Time: Feb 08 2025 3:40P Dictated by : DAVEY TYSON MD This examination was interpreted and the report reviewed and electronically signed by: DAVEY TYSON MD on Feb 08 2025 3:44PM EST [id number] Normal [facility] CNPNon [facility] PATRICIO PADRON ([id number]) 1955 Date Time Provider Department 02/06/25 [facility] During your visit today, we recorded the following information about you: Nica Marin RN 02/06/2025 2:31 PM Signed JAYLIN Bryan with [facility] calling to give Kadi Fermin CNP a message. Pt has upcoming appt with Kadi Fermin this Tuesday02/08/25. Pt receives Palliative Care and Margarita states she visited patient today and he continues to have abnormal lung sounds. She is asking if Kadi Fermin would consider ordering a chest xray for patient during his 02/08 visit and a CMP lab to evaluate his albumin level. Margarita states pt's weight has gone down a bit and pt's states pt's appetite has diminished. Margarita states pt is too functional for Hospice quite yet. For any questions or if need to discuss this further JAYLIN Bryan can be contacted at [phone]. JAY JAY Jacinto Jacqueline A, APRN.MECHANICAL INTERN 02/07/2025 7:54 AM Signed Please let Margarita know that a chest x-ray was ordered for patient he can get it on Tuesday or come today. Nica Marin RN 02/07/2025 8:42 AM Signed VM left for JAYLIN Bryan to call back to receive message below. JAY JAY Jacinto Sherrie, RN 02/07/2025 8:42 AM Signed Pt's Chalo updated of chest xray order and of provider's message below. is asking if Alex Anderson CNP would place order for CMP lab to evaluate his albumin level, as well, if agreeable. Please call Chalo back with update. JAY JAY Jacinto Jacqueline A, APRN.MECHANICAL INTERN 02/07/2025 9:33 AM Signed Yes. Labs in Vasquez Walter MA 02/07/2025 9:57 AM Signed , Chalo, notified of lab orders being placed. Vasquez Walter MA February 07, 2025 9:57 AM Allergies As of Date: 02/06/2025 (No Known Allergies) Date Reviewed: 01/29/2025 Reviewed by: Vasquez Walter MA - Fully Assessed Reason for Visit: Palliative Care Provider Call [Other] Primary Visit Diagnosis:Abnormal lung sounds [R09.89] Other Visit Diagnoses:Hypoalbuminemia [E88.09] Pure hypercholesterolemia [E78.00] Prediabetes [R73.03] Order(s):XR CHEST 2V FRONTAL/LAT [[id number]] Order #: [id number] FUTURE COMPLETE BLOOD COUNT AND DIFFERENTIAL [SQCBCDIF] Order #: [id number] FUTURE COMPREHENSIVE METABOLIC PANEL [SQCMP] Order #: [id number] FUTURE LIPID PANEL, NONFASTING [SQLIPNF] Order #: [id number] FUTURE HEMOGLOBIN A1C [UPOEZ8J] Order #: [id number] FUTURE THYROID STIMULATING HORMONE [SQTSH] Order #: [id number] FUTURE Prescriptions as of 02/07/2025 - doxycycline (VIBRA-TABS) 100 mg tablet Take 1 tablet by mouth two times a day for 10 days. - benzonatate (TESSALON PERLE) 100 mg capsule Take 1 capsule by mouth three times a day as needed for cough for up to 15 days. - memantine (NAMENDA) 5 mg tablet Take [...] for Pain. Problem List As Of Date 02/06/2025 Noted Resolved Benign non-nodular prostatic hyperplasia with [...] 12/30/2023 Prediabetes [R73.03] 07/02/2024 Encounter Status:Closed by VASQUEZ WALTER on 02/07/25 [facility] CNOVsilke 01-29-2025 CNOV Office Visit (FAMPWS ) -- PATRICIO PADRON ([id number]) 1955 Date Time Provider Department 01/29/25 10:40 AM JEANINE FERMIN During your visit today, we recorded the following information about you: Temperature Pulse Blood pressure Weight 97.3 degrees 101/minute 118/70 65.8 kg Jeanine Fermin APRN.CNP 01/29/2025 11:03 AM Signed This is a 69 year old male who presents today with: Patient presents with: Cough: 2 weeks HISTORY OF PRESENT ILLNESS: Patricio Padron is a 69 year old male. Patient presents with: Cough: 2 weeks Cough for a couple weeks. Productive. Didn't check color. No fever or chills. No headache Some sinus congestion. No ear pain. No fatigue Not keeping him up at night. Coughing so hard it is hard to breath Not much exertion to cause dyspnea No body aches Mobility is declining No sore throat PAST MEDICAL HISTORY: PAST MEDICAL HISTORY Diagnosis Date Arthritis BPH with obstruction/lower urinary tract symptoms Renal lesion 07/26/2023 Rosacea Subarachnoid hemorrhage (HCC) 08/11/2023 PAST SURGICAL HISTORY Procedure Laterality Date PAST SURGICAL HISTORY OF flexible cystoscopy PAST SURGICAL HISTORY OF 1958 tonsillectomy PAST SURGICAL HISTORY OF 2017 left eye surgery PAST SURGICAL HISTORY OF 2023 Surgery to drain hematoma on brain- not successful TRANSURETHRAL ELEC-SURG PROSTATECTOM N/A 08/18/2021 TRANSURETHRAL ELEC-SURG PROSTATECTOM 2019 ALLERGIES Patient has no known allergies. MEDICATIONS [...] Alcohol use: Not Currently Drug use: Never EXAM: BP 118/70 Pulse 101 Temp 36.3 ?C (97.3 ?F) Wt 65.8 kg (145 lb) SpO2 93% BMI 24.13 kg/m? PHYSICAL EXAM: Physical Exam Vitals reviewed. Constitutional: Comments: disheveled HENT: Head: Normocephalic. Right Ear: External ear normal. There is no impacted cerumen. Left Ear: External ear normal. There is no impacted cerumen. Ears: Comments: Unable to see in ears, some cerumen, some hair obstruction Mouth/Throat: Pharynx: Oropharyngeal exudate and posterior oropharyngeal erythema present. Cardiovascular: Rate and Rhythm: Normal rate and regular rhythm. Pulses: Normal pulses. Heart sounds: Murmur heard. Comments: Soft DARRYL @ sternal border Pulmonary: Effort: Pulmonary effort is normal. Comments: Absent lung sounds RUL, + egophony RUL AND bronchial Musculoskeletal: Comments: Presents in a wheelchair, falling again (4 times in January) Generalized weakness Lymphadenopathy: Cervical: No cervical adenopathy. Skin: General: Skin is warm and dry. Neurological: Mental Status: He is alert. Comments: Very flat affect LABS: normal GFR ASSESSMENT/PLAN: 1. Bacterial pneumonia - ICD9: 482.9, ICD10: J15.9 RUL absent lung sounds AND positive egophony - DOXYCYCLINE HYCLATE 100 MG TABLET 2 x day for 10 days - BENZONATATE 100 MG CAPSULE 3 x day for cough Discussed treatment plan and patient voices understanding. Patient's questions answered appropriately. Medications and potential side effects were discussed and patient voices understanding. Return to the office as scheduled or as needed for worsening/no improvement. LUPILLO Rush Jacqueline A, APRN.CNP 01/29/2025 11:03 AM Signed 1) Doxycycline 100 mg 2 x day for 10 days 2) Benzonatate 100 mg 3 x day as needed for cough 3) Follow up in 10 - 14 days Allergies As of Date: 01/29/2025 (No Known Allergies) Date Reviewed: 01/29/2025 Reviewed by: Vasquez Walter MA - Fully Assessed Reason for Visit: Cough [28] Cmt: 2 weeks Primary Visit Diagnosis:Bacterial pneumonia [J15.9] Order(s):doxycycline (VIBRA-TABS) 100 mg tabletTake 1 tablet by mouth two times a day for 10 days.Disp: 20 tabletRfl: 0 benzonatate (TESSALON PERLE) 100 mg capsuleTake 1 capsule by mouth three times a day as needed for cough for up to 15 days.Disp: 45 capsuleRfl: 0 Prescriptions as of 01/29/2025 - doxycycline (VIBRA-TABS) 100 mg tablet Take 1 tablet by mouth two times a day for 10 days. - benzona (more content not included)... Normal [facility] CNOVon 01-08-2025 CNOV Office Visit (NEMOWS ) -- PATRICIO PADRON ([id number]) 1955 M Date Time Provider Department 01/08/25 11:30 AM JAYDA ACE During your visit today, we recorded the following information about you: Pulse Blood pressure 98/minute 106/74 Jayda Ace PA-C 01/08/2025 12:40 PM Signed [facility] Name: Patricio Dawkins Vito Age: [age] year old Gender: male Primary Care Provider: Yanet Admas MD 01/08/2025 - General Neurology, Jayda Ace PA-C ASSESSMENT ASSESSMENT/PLAN: 1. Dementia without behavioral disturbance (HCC) - ICD9: 294.20, ICD10: F03.90 (primary diagnosis) 2. Memory loss - ICD9: 780.93, ICD10: R41.3 Patient presents for dementia follow-up. No significant change in memory since last appointment, unable to repeat MoCA with due to time today. Notes she did start increasing physical activity at home to avoid falls and worsening weakness in the lower extremities. However is not very cognitively active and primarily watches the news throughout the day. Compliant with Namenda 5 mg twice daily. Patient is primarily concerned today about his driving evaluation, was told to no longer drive but states the test was not fair as his hand was blocking the written exam in certain sections causing him to miss certain points. Unclear history with this. They discussed this with the facility and they stated that that he can retake this test if a new order is placed, new order was placed today, encouraged no driving until test is completed. Encouraged conservative therapy as well, deferring any further increasing Namenda at this time. Patient's also concerned about sleep. Notes that he has been sleeping a lot more, roughly 12 to 14 hours a night. States that she read online that this was relatively normal for dementia however, this is relatively new over the last few months. Patient without any wandering at nighttime, discussed conservative sleep management including trying melatonin a few hours before bedtime, sleep hygiene. Should this persist may follow-up with Dr. Pinto for further evaluation at next appointment. 3. Frequent falls - ICD9: V15.88, ICD10: R29.6 4. Balance problem - ICD9: 781.99, ICD10: R26.89 5. Cervical stenosis of spinal canal - ICD9: 723.0, ICD10: M48.02 Patient with improvement in falls, only had 1 fall that was minor last night in the last few months, no major injuries. Did follow with neurosurgery and was told this is likely going to continue to progress and may need a wheelchair in the future. Is currently using a walker for ambulation. Notes significant improvement in weakness after physical therapy and is continuing exercises at home. Encouraged conservative therapy and following up with neurosurgery as indicated. Patient and family agreeable to treatment plan of care at this time, questions were answered. Patient to follow-up in 3 to [address] Pinto. Jayda Ace PA-C Alzheimer's Society: Join to learn about many resources and supports for you, as the caregiver Community Resources: E.g. [employer] - [employer] Dementia [employer] on the [place] side [facility]. UPHOLSTERY TECHNICIAN/OT/PT: Speech therapy, Occupational therapy, Physical Therapy Driving: Do you have safety concerns? Power of Contact Center Associate/ planning of the patient's will Project Lifesaver: Local police will keep records of your loved one if they tend to get lost, and will bring them home. Lifeline: emergency response button/necklace/bracelet Caregiver Health: Important to ensure you are taking care of your mental and physical health so you can care for your loved one SW consult: Do you want a social work referral to understand what resources are available to you? This is a 69 year old male followed for progressive dementia Current medication treatment: Namenda 5 mg twice daily Indication for repeat cognitive testing: No Encounter Diagnosis ICD-10-CM 1. Dementia without behavioral disturbance (HCC) F03.90 CONSULT TO HORSE RACE TIMER memantine (NAMENDA) 5 mg tablet 2. Memory loss R41.3 CONSULT TO HORSE RACE TIMER 3. Frequent falls R29.6 4. Balance problem R26.89 5. Cervical stenosis of spinal canal M48.02 Return in about 4 months (around 05/10/2025), or Dr. Pinto ([facility]). Chart, labs,and relevant images reviewed. Chief Complaint:Patient presents with: Established Patient: Memory loss, dementia Chart Review: 08/07/24 ASSESSMENT/PLAN: 1. Subdural hematoma (HCC) - ICD9: [...] ICD10: Z87.820 7. Memory loss - ICD9: 780.9 (more content not included)... Normal [facility] CNOVon 01-02-2025 CN Office Visit (RITAPWS ) -- PATRICIO PADRON ([id number]) 1955 [place] Date Time Provider Department 01/02/25 10:40 AM [facility] During your visit today, we recorded the following information about you: Pulse Blood pressure Weight 85/minute 100/72 66.7 kg Yanet Adams MD 01/02/2025 11:12 AM Signed Patient presents with: 6 Month Exam HPI: Patient presents today for office visit for follow up. Palliative medicine through [facility] now. Weight: Drinking 1 Ensure daily. Keeping snacks and water by his chair. Also drinking 1 Propel daily. Moms meals daily so having 2 meals daily. Has gained some weight back. Had been lower at home but is coming back up. . He is getting Mom's meals which is helping as well. Has snacks. Seeing neurology and neurosurgery. Has seen urology as well. We have followed his sugars. Last A1c was 5.7 On hyrtrin. Bp is good. No dizziness. No issues with cholesterol meds. No chest pain or shortness of breath. No more falls recently. Has done physical therapy. Keeping up with exercises. No gi or gu issues. Needs help with bathing and dressing after but otherwise can dress himself. MEDICATIONS: Current Outpatient Medications Medication Sig memantine (NAMENDA) 5 mg tablet Take 1 tablet by mouth two times a day. terazosin (HYTRIN) 5 mg capsule Take 1 capsule by mouth daily at bedtime. pravastatin (PRAVACHOL) 40 mg tablet Take 1 tablet by mouth once daily. ibuprofen (MOTRIN) 400 mg tablet Take by [...] lesion 07/26/2023 Rosacea Subarachnoid hemorrhage (HCC) 08/11/2023 PAST SURGICAL HISTORY Procedure Laterality Date PAST SURGICAL HISTORY OF flexible cystoscopy PAST SURGICAL HISTORY OF 1958 tonsillectomy PAST SURGICAL HISTORY OF 2017 left eye surgery PAST SURGICAL HISTORY OF 2023 Surgery to drain hematoma on brain- not successful TRANSURETHRAL ELEC-SURG PROSTATECTOM N/A 08/18/2021 TRANSURETHRAL ELEC-SURG [...] today and recommended the following in detail. Advance Directive Discussion due on 10/17/2024 Colorectal Cancer Screening due on 01/17/2025 VITALS: BP 100/72 Pulse 85 Wt 66.7 kg (147 lb) SpO2 97% BMI 24.46 kg/m? Last 4 Encounter Wt Readings: Date: Wt: 01/02/2025 66.7 kg (147 lb) 08/20/2024 67.7 kg (149 lb 4 oz) 08/07/2024 67.9 kg (149 lb 12.8 oz) 07/31/2024 68.9 kg (152 lb) PHYSICAL EXAMINATION: General appearance: Well appearing, [...] Musculoskeletal: No joint swelling, deformity, or tenderness ASSESSMENT/PLAN: 1. Personal history of traumatic brain injury - ICD9: V15.52, ICD10: Z87.820 (primary diagnosis) - doing well. 2. Dementia without behavioral disturbance (HCC) - ICD9: 294.20, ICD10: F03.90 - continue meds. Refill given. - MEMANTINE 5 MG TABLET 3. Cervical myelopathy (HCC) - ICD9: 721.1, ICD10: G95.9 - keep up exercise. 4. Pure hypercholesterolemia - ICD9: 272.0, ICD10: E78.00 - continue pravastatin. 5. Prediabetes - ICD9: 790.29, ICD10: R73.03 - follow labs. - HEMOGLOBIN A1C 6. Mild cognitive impairment - ICD9: 331.83, ICD10: G31.84 - stable. 7. History of subdural hematoma - ICD9: V12.59, ICD10: Z86.79 - stable. (more content not included)... Normal [facility] HbA1c (Bld)on 01-02-2025 Average glucose Estimated from glycated hemoglobin (Bld) [Mass/Vol] 117 mg/dL Normal [facility] Comment on above: Order Comment: George saldivar Type: BLOOD SPECIMENOrdering Facility: [facility] Address: [address] [place] [address] Result Comment: eAG: (Estimated average glucose) is a calculated value from HgbA1c and is public service representative of the average blood glucose level in the last 2-3 month period. Performed By: #### 5 5454-3 ####[facility] [id number] [place] [address] [place] HbA1c (Bld) [Mass fraction] 5.7 % High 4.3-5.6 [facility] Comment on above: Order Comment: George saldivar Type: BLOOD SPECIMENOrdering Facility: [facility] Address: [address] [place] [address] Result Comment: Amer ican Diabetes Association guidelines indicate that patients with HgbA1c in the range 5.7-6.4% are at increased risk for development of diabetes, and intervention by lifestyle modification may be beneficial. HgbA1c greater or equal to 6.5% is considered diagnostic of diabetes. Performed By: #### 5 [id number] ####[facility] [id number] [place] [id number] [place] PT D/C Summary (1)on 024 PT D/C Summary (1) [facility] Physical Therapy [address] [place] [address] / REHABILITATION SERVICES DISCHARGE SUMMARY MR#: [id number] Acct: [id number] Name: PATRICIO PADRON Rep #: [id number] : 1955 69 From: Danya REDDY Referring Dr.: JAYLIN SORIANO Status: REG RCR Insurance: [facility] SELF [facility]Y INSURANCE Discharge Summary D/C summary: It has been my pleasure to treat PATRICIO PADRON referred by JAYLIN SORIANO, with the diagnosis of gait deficit, balance problem, ferq falls, C-spine stenosis for a total of 18 visit(s). Discharge Date: 10/15/24 Please see the following information for a summary of their discharge status. Subjective Subjective: Pt thinks his balance is a little better. No falls. He uses his rollator almost all the time. He can walk a short distance if he is holding onto the counter. He will do exercises at home Overall Improvement % Improvement: 10 Objective Objective/Function: safety things Gait: rollator and R leg does not pass L stance leg with gait. He shuffles with both feet (worse with the R) FGA: 6 Walked with straight cane with min A (very unsteady and increase veering) Goals Goal 1:: I HEP Goal Progress: Not Progressing Goal 2:: Be able to walk entire dept with rollator with advancing R LE without dragging it Goal Progress: Progressing Goal 3:: Improve balance (score was 11 at eval) Goal Progress: Not Progressing Goal 4:: Be able to slowly lower self down to the chair with arms without polpping Goal Progress: Progressing Plan Plan: DC PT D/C Information Discharge Comments: DC PT d/c sentence: If there are questions or concerns regarding this patient's physical therapy, please feel free to call me at [phone]. Thank you for the referral of this patient. Sincerely, BARRY Larson Balance/Gait/Functional tests Balance/Special Test Scores Functional Gait Assessment Score: 6 % Disability: 80.0000 Tinetti Balance Score: 8 Tinetti Gait Score: 3 Tinetti Balance Gait Score: 11 Lower Extremity Functional Score: 19 Improvement % Improvement: 10 10/15/24 1200 CC: Dr. aYnet Adams MD; JAYLIN SORIANO Signed Normal [facility] CNPNon 09-28-2024 [facility] PATRICIO PADRON ([id number]) 1955 Date Time Provider Department 09/28/24 BRYANYANET [facility] During your visit today, we recorded the following information about you: Mirna Mosquera RN 09/28/2024 12:41 PM Signed Palliative Medicine Referral Assessment Referral Accepted: Yes, Location: Pall Med at Home. Patient current location: Home: Timeframe for scheduling: soonest available Pall Med appropriate diagnosis: R27.0 (ICD-10-CM) - Ataxia, [id number] (ICD-10-CM) - Personal history of traumatic brain puecsjQ29.84 (ICD-10-CM) - Mild cognitive impairment Established with Inpatient Pall Med team: no Reason for consult: introduction to services, goals of care, fatigue, weight loss/poor appetite, symptom support , and weakness, falls and chronic non-cancer pain with cervical myelopathy Virtual Visit - preferred due to chronic pain Okay for [facility]- no safety concerns identified by nurse. Call Chalo to schedule. 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 Message left for Pt/CG to call office to discuss further. 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 Prefers hand on. Allergies As of Date: 09/28/2024 (No Known Allergies) Date Reviewed: 08/20/2024 Reviewed by: Janett Apple MA - Fully Assessed Reason for Visit: 50028- pall med [Other] Initial Consult [665] Prescriptions as of 10/11/2024 - memantine (NAMENDA) 5 mg tablet Take 1 tablet by mouth two times a day. - terazosin (HYTRIN) 5 mg capsule Take 1 capsule by mouth daily at bedtime. - pravastatin (PRAVACHOL) 40 mg tablet Take 1 tablet by mouth once daily. - ibuprofen (MOTRIN) 400 mg tablet Take by mouth. - meloxicam (MOBIC) 15 mg tablet Take 1 tablet by mouth once daily. With food. - minocycline (MINOCIN, DYNACIN) 50 mg capsule Take 1 capsule by mouth twice daily. - acetaminophen (TYLENOL) 325 mg tablet Take 2 tablets by mouth every 6 hours as needed for Pain. Problem List As Of Date 09/28/2024 Noted Resolved Benign non-nodular prostatic hyperplasia with [...] 12/30/2023 Prediabetes [R73.03] 07/02/2024 Encounter Status:Closed by MIRNA MOSQUERA on 09/28/24 Normal [facility] Re-Evaluation - PT (1)on Re-Evaluation - PT (1) [facility] Physical Therapy [facility] [address] [place] [address] / REEVALUATION / MEDICARE RECERTIFICATION PHYSICAL THERAPY MR#: [id number] Acct: [id number] Name: PATRICIO PADRON Rep #: [id number] : 1955 69 From: Danya Morris MPT Referring Dr.: JAYLIN SORIANO Status:REG RCR Insurance: [employer] [facility] SELF PAY INSURANCE Re-Evaluation Intro: JAYLIN SORIANO, It has been my pleasure to treat PATRICIO PADRON over the last 9 visits for gait deficit, balance problem, ferq falls, C-spine stenosis. Please see the progress note below for an update on the physical therapy plan of care! Subjective Subjective: Pt feels that PT is helping him with his balance. He had a fall on Tuesday he had his walker inside the house and turned away from his walker to close the sliding glass door and he went down hard. He did not hurt himself. It stunned him but reports that it did not appear to hit his head and his winter jacket softened the fall. has noticed slight changes at home. He is doing better getting better out of a chair but still struggles with lowering himself down into the chair. Walking long distances dragging his R leg. Objective Objective/Function: Pt plops into his chair when he does not think about it. He is unsafe when backing into his chair to sit down as he pushes his rollator away and sits down at an angle a lot of the time. FGA: 7 Pt struggles with stepping out away from his walker keeping one hand on the walker to be able to simulate closing a slide door Plan Plan Plan: +++Gait BELT AT ALL TIMES+++ Work with stepping away from the bar or rollator as if to turn oneself to close a slider door, lowering self to the chair and gait endurance.. or standing to take off his coat. reports that he likes to tip FW when he tries to back into his chair. Pt has very bad cervical stenosis ( reports that they were told at some point he would lose the ability in his legs to walk or stand) 2X/ week for 8 weeks for LE strength, standing balance (start in // bars), gait endurance (gait belt at all times), functional transfers with HEP Balance/Gait/Functional tests Balance/Special Test Scores Functional Gait Assessment Score: 7 % Disability: 76.6700 Tinetti Balance Score: 8 Tinetti Gait Score: 3 Tinetti Balance Gait Score: 11 Lower Extremity Functional Score: 15 Goals Goals Goal 1:: I HEP Goal Time Frame: 6-8 Weeks Goal 2:: Be able to walk entire dept with rollator with advancing R LE without dragging it Goal Time Frame: 6-8 Weeks Goal Progress: Progressing Goal 3:: Improve balance (score was 11 at eval) Goal Time Frame: 6-8 Weeks Goal 4:: Be able to slowly lower self down to the chair with arms without polpping Goal Time Frame: 6-8 Weeks Goal Progress: Progressing Anticipated Interventions Anticipated Interventions Patient/Client Instruction: Educate patient on: Condition and Plan of Care For the Purpose of:: To improve muscle performance and motor function, To improve ability to perform ADL's, To increase tolerance to activity/condition/positio n, To improve performance and independence with ADL's, To decrease level of supervision to perform tasks, To improve ability of physical actions for home/community/work/leisur e, To improve gait and locomotor functions, To improve health of tissue, To increase flexibility/ROM, To improve endurance, To improve balance and To improve safety with gait Therapeutic Exercise to Include: Strength training, Endurance training, Balance training, Postural training, Flexibilty training, Gait and locomotor training, Neuromotor development and Active ROM For the Purpose of:: To improve nutrient delivery to tissue, To improve muscle performance and motor function, To improve ability to perform ADL's, To increase tolerance to activity/condition/positio n, To improve performance and independence with ADL's, To decrease level of supervision to perform tasks, To improve ability of physical actions for home/community/work/leisur e, To improve gait and locomotor functions, To improve health of tissue, To decrease soft tissue restriction, To increase flexibility/ROM, To improve balance, To improve safety with gait and To assume or resume ADL's Functional Training to Include: Gait training For the Purpose of:: To improve gait and locomotor functions and To improve safety with gait Re-Evaluation Ending Re-evaluation ending: Please do not hesitate to contact me at [phone] by phone or if you have questions or concerns regarding this new plan of care! Sincerely, Danya Arturo, MPT 09/12/24 1316 CC: Dr. Yanet Adams MD; JAYLIN SORIANO Signed For Medicare only, by signing this I certify the plan of care. (more content not included)... Normal [facility] CNOVon 08-20-2024 CNOV Office Visit ([facility] M) -- PATRICIO PADRON ([id number]) 1955 Date Time Provider Department 08/20/24 2:45 PM KWADWO SRINIVASAN [facility] During your visit today, we recorded the following information about you: Pulse Respiration Blood pressure Weight 84/minute 16/minute 124/87 67.7 kg Kwadwo Srinivasan MD, PhD 08/20/2024 4:31 PM Signed NEUROSURGERY FOLLOW UP OFFICE NOTE Kwadwo Srinivasan MD, PhD Date of visit: August 20, 2024 Patient Name: Mr.Gary Augustin Padron Date of : 1955 Current Age: [age] year old Sex: male MRN/E# [id number] Last Office Visit: 08/15/2024 Chief Complaint: Patient presents with: Established Patient SUBJECTIVE: HPI The patient presented to [facility] ED on 08/11/2023 after being unsteady [...] worsening symptoms and was evaluated by Dr. Rivero in office on 09/22/2023 to which he [...] in 1 month with a repeat CT head. At his last visit on 11/21/2023 he stated he had been doing okay since his last visit. He continued with confusion and forgetfulness. He felt he continued to drag his right foot with ambulation and had continued use of a cane. He had fallen 4 times since his last visit. He denied any headaches, lightheadedness, nausea, vomiting, visual or hearing changes. He had since completed a course of therapy at [facility] in [place] and was to continue with exercises with [employer]. He denied any cervical pain at that time or any radicular symptoms. His CT head demonstrated almost complete resolution of his right sided acute on chronic subdural hematoma. At that point, the attention shifted to his cervical myelopathy. He was having recurrent falls. His level of interest in surgery was not sabiha and was a committed smoker. They were to follow up as needed regarding his cervical spine, prompting his visit today. Today he states he denies any cervical pain. Denies radiation down his arms. Denies paresthesia or weakness. Denies loss of bowel or bladder. Endorses urinary urgency with incontinence at times due to not making it to the bathroom fast enough. Notes frequent falls with the most recent last Tuesday where he fell and hit his head on cement. Presented to the ED, work up was negative per the . He feels his leg weakness has worsened and continues with use of a Rolator. Notes he is fatigued easily. He notes not being able to walk long distances without having to stop and sit down. Currently participating with physical therapy at [facility]. Saw neurology as well. He continues with smoking. He presents for imaging review, evaluation and plan of care. Symptoms: falls, leg weakness, use of Rolator Smoker: endorses less (more content not included)... Normal [facility] XR CERVICAL 4V AP/LAT/FLX/EX Ton 08-20-2024 XR CERVICAL 4V AP/LAT/FLX/EXT * * *Final Report* * * DATE OF EXAM: Aug 20 2024 2:26PM A1X 5310 - XR CERVICAL 4V AP/LAT/FLX/EXT / PROCEDURE REASON: Neck pain * * * * Physician Interpretation * * * * EXAM TITLE: X-RAY CERVICAL SPINE 4 views DATE: August 20, 2024 CLINICAL INDICATION/HISTORY: Neck pain COMPARISON: CT cervical spine October 08, 2023 TECHNIQUE: AP, lateral, lateral flexion and lateral extension views of the cervical spine. FINDINGS: Counting reference: Craniocervical junction. Anatomic Variants: None. No spondylolisthesis. No subluxation with flexion or extension. No evidence of a fracture. No lytic or blastic osseous lesions. Mild to moderate multilevel disc space narrowing from C3 through C7 levels. Soft tissues are unremarkable. IMPRESSION: Degenerative changes. Septic Tank Setter: PSCB Transcribe Date/Time: Aug 24 2024 7:29A Dictated by : ESTEFANÍA JIMENES MD This examination was interpreted and the report reviewed and electronically signed by: ESTEFANÍA JIMENES MD on Aug 24 2024 7:32AM EST [id number] [facility] C[facility]N Telephone ([facility]) -- LEISURE,PATRICIO Dawkins ([id number]) 1955 M Date Time Provider Department 08/15/24 [facility] During your visit today, we recorded the following information about you: Juliette Ramesh RN 08/15/2024 4:33 PM Signed Spoke with patient's , Chalo. She stated that Patricio has been having more balance issues and using his walker more often. He is not having any more episodes of incontinence. She stated that he seems weaker though and has more trouble walking. She wanted to get him seen in office. I told them Dr. Turner is here Tuesday and we could set up an appointment with some x-rays and evaluation since he has not been seen by him in quite some time. Asked them to get here early to get some x-rays and then Dr. Srinivasan can evaluate patient if further imaging is warranted. Juliette Ramesh RN Allergies As of Date: 08/15/2024 (No Known Allergies) Date Reviewed: 08/07/2024 Reviewed by: Jayda Ace PA-C - Fully Assessed Primary Visit Diagnosis:Neck pain [M54.2] Order(s):XR CERV OTHER 4V AP/LAT/FLX/EXT [[id number]] Order #: [id number] FUTURE Prescriptions as of 08/15/2024 - memantine (NAMENDA) 5 mg tablet Take 1 tablet by mouth two times a day. - terazosin (HYTRIN) 5 mg capsule Take 1 capsule by mouth daily at bedtime. - pravastatin (PRAVACHOL) 40 mg tablet Take 1 tablet by mouth once daily. - ibuprofen (MOTRIN) 400 mg tablet Take by mouth. - meloxicam (MOBIC) 15 mg tablet Take 1 tablet by mouth once daily. With food. - minocycline (MINOCIN, DYNACIN) 50 mg capsule Take 1 capsule by mouth twice daily. - acetaminophen (TYLENOL) 325 mg tablet Take 2 tablets by mouth every 6 hours as needed for Pain. Problem List As Of Date 08/15/2024 Noted Resolved Benign non-nodular prostatic hyperplasia with [...] 12/30/2023 Prediabetes [R73.03] 07/02/2024 Encounter Status:Closed by JULIETTE RAMESH on 08/15/24 [facility] Inital Evaluation (1) - PTon 08-14-2024 Inital Evaluation (1) - PT [facility] Physical Therapy [address] [place] [address] / REHABILITATION SERVICES INITIAL EVALUATION MR#: [id number] Acct: [id number] Name: PATRICIO PADRON Rep #: [id number] : 1955 69 From: Danya REDDY Referring Dr.: JAYLIN SORIANO Status: REG RCR Insurance: [facility] SELF PAY INSURANCE Patient's Visit Information Visit Information Visit Information: PATRICIO PADRON is a 69 year old M referred to Physical Therapy by JAYLIN SORIANO with a diagnosis of gait deficit, balance problem, ferq falls, C-spine stenosis. Date of Evaluation: 08/14/24 Physical Therapist: BARRY Larson Visit Plan Frequency: 2x /Week Duration: 2 Months Plan: +++Gait BELT AT ALL TIMES+++ reports that he likes to tip FW when he tries to back into his chair. Pt has very bad cervical stenosis ( reports that they were told at some point he would lose the ability in his legs to walk or stand) 2X/ week for 8 weeks for LE strength, standing balance (start in // bars), gait endurance (gait belt at all times), functional transfers with HEP Subjective Subjective: Pt had a fall yesterday and he hit his head and ended up in ER and no brain bleed. His legs are getting weaker and his balance is getting a lot worse. They were told at [facility] that he has a pinched nerve in his neck that is causing him to lose control of his legs. The surgery was iffy as to whether that the surgery would work. They do not have a follow up at this time but she is thinking of calling the Dr to see if there has been any changes. He has done PT multiple times. He uses to use the machines through [employer] and has not done that or driving since May. He has no steps once inside the home as they live all on one level. They are in the process of getting a ramp so they do not have to use steps to get in and out. He has a walk in shower with a bench seat. No trouble getting in and out of bed. He does fall a lot (5 falls in 3-4 months). They are encouraging him to walk with the rollator. reports that he likes to tip FW when he tries to back into his chair. Objective Objective: Gait: Walks with rollator with more dragging his R leg with gait. He tends to scuff that R foot on the floor. He is able to walk BW with the rollator with CGA with no LOB but more slow. When walking without the rollator he walks with slower step length and scissors at times. It seems that he starts off strong and then within 20 feet his legs start to weaken. He is able to heel and toe raise without much difficulty LE MMT R hip flex 16 and L 16.2 R knee ext 22.3 and L 22.7 R knee flex 13.9 and L 14.9 R 13.6 and L 11.6 FGA 7 Tinetti 11 Pt is able to stand with EO and EC X 30 seconds with CGA Balance/Special Test Scores Functional Gait Assessment Score: 7 % Disability: 76.6700 Tinetti Balance Score: 8 Tinetti Gait Score: 3 Tinetti Balance Gait Score: 11 Lower Extremity Functional Score: 14 Goals Goal 1:: I HEP Goal Time Frame: 6-8 Weeks Goal 2:: Be able to walk entire dept with rollator with advancing R LE without dragging it Goal Time Frame: 6-8 Weeks Goal 3:: Improve balance (score was 11 at eval) Goal Time Frame: 6-8 Weeks Rehabilitation Potential Rehabilitation Potential: Good Anticipated Interventions Patient/Client Instruction: Educate patient on: Condition and Plan of Care For the Purpose of:: To improve muscle performance and motor function, To improve ability to perform ADL's, To increase tolerance to activity/condition/positio n, To improve performance and independence with ADL's, To decrease level of supervision to perform tasks, To improve ability of physical actions for home/community/work/leisur e, To improve gait and locomotor functions, To improve health of tissue, To increase flexibility/ROM, To improve endurance, To improve balance and To improve safety with gait Therapeutic Exercise to Include: Strength training, Endurance training, Balance training, Postural training, Flexibilty training, Gait and locomotor training, Neuromotor development and Active ROM For the Purpose of:: To improve nutrient delivery to tissue, To improve muscle performance and motor function, To improve ability to perform ADL's, To increase tolerance to activity/condition/positio n, To improve performance and independence with ADL's, To decrease level of supervision to perform tasks, To improve ability of physical actions for home/community/work/leisur e, To improve gait and locomotor functions, To improve health of tissue, To decrease soft tissue restriction, To increase flexibility/ROM, To improve balance, To improve safety with gait and To assume or resume ADL's Functional Training to Include: Gait training For the Purpose of:: To improve gait and locomotor functions and To improve safety wit (more content not included)... Normal [facility] Brain/Head without Contrasto n 08-13-2024 Brain/Head without Contrast [facility] Imaging Services [address] [place] [address] Brain/Head without Contrast MR#: [id number] Acct: [id number] Name: PATRICIO PADRON Rep #: [id number] : 1955 M 69 From: Evan Spring MD PCP: Dr. Yanet Adams MD Status: REG ER Study: Brain/Head without Contrast Date of Exam: 07/18 06/09 Exam# [id number] Ordering Dr: Jacki Valentino DO [id number] INDICATION: FALL, HEAD INJURY EXAMINATION: CT BRAIN - CT Head or Brain W/O Contrast Injection TECHNIQUE: Multiple axial images were obtained of the head without intravenous contrast. A radiation dose optimization technique was used for this scan. IV Contrast dosage and agent: None. COMPARISON: 03/12/2020 FINDINGS: BRAIN PARENCHYMA: No intra- or extra-axial hemorrhage. No evidence of acute infarct. No intracranial mass or mass effect. There is preservation of the snyder/white matter interface. Posterior fossa structures are unremarkable. Volume loss with low attenuation of the periventricular white matter typical of chronic small vessel disease. CSF SPACES: Appropriate for age. No hydrocephalus. Basal cisterns are patent. CALVARIUM, SKULL BASE, PARANASAL SINUSES AND MASTOID AIR CELLS: No significant paranasal sinus disease. No acute fracture. CT/Brain/Head without Contrast IMPRESSION: Volume loss with chronic white matter changes. No acute intracranial findings. Electronically Signed: Evan Spring MD at 18:44 EDT , CC: Dr. Jacki Valentino DO; Dr. Yanet Adams MD Septic Tank Setter: Signed Normal [facility] Emergency Department Summary on 08-13-2024 Emergency Department Summary [facility] Medical Records Department [address] [place] [address] Emergency Department Summary 08/13/24 MR#: [id number] Acct: [id number] Name: PATRICIO PADRON Rep #: [id number] : 1955 69 From: Macario Givens MD PCP: Dr. Yanet Adams MD Status:REG ER Location: ED HPI HPI - Fall History of Present Illness Chief Complaint: Fall Informant: patient and spouse/S.O. Narrative Narrative: 69-year-old male according to has poor balance and went out onto the porch to smoke and lost his footing, states he tripped and fell hitting the back of his head on the concrete porch. There was no loss of consciousness, he denies any nausea, vomiting, vision changes, or other injuries. He takes no anticoagulants but the states he had a head bleed in the past and that led to her being concerned here and bring in for evaluation. The patient states he does not have a headache and he feels fine. He shows me a knot on his head from where he hit today. [facility] Medical History Balance disorder Hyperlipidemia Dementia Brain bleed Home Medications ???Medication ???Instructions ???Recorded ???Last Taken ???Type Minocycline 50 mg PO BID atb 07/24/18 07/24/18 08:00 History 50 mg pravastatin 20 mg tablet 40 mg PO QHS cholesterol 07/24/18 07/23/18 22:00 History 40 mg terazosin 1 mg capsule 5 mg PO QHS Prostate 07/24/18 07/24/18 22:00 History 1 mg ibuprofen 400 mg tablet 400 mg PO Q6H 08/11/23 Unknown History meloxicam 15 mg tablet 15 mg PO DAILY 08/11/23 Unknown History memantine 5 mg tablet 5 mg PO BID 08/11/23 Unknown History Allergy/AdvReac Type Severity Reaction Status Date / Time Penicillins Allergy Upset Verified 08/13/24 17:15 Stomach Social History Smoking Status: Current every day smoker tobacco type: cigarettes ROS ROS ED Constitutional Constitutional ED: Denies chills or fever(s) Eyes Eyes: Denies change in vision or diplopia ENT ENT ED: Denies ear pain, epistaxis, facial pain or rhinorrhea Cardiovascular Cardiovascular: Denies chest pain Respiratory/Chest Respiratory/Chest: Denies dyspnea Gastrointestinal Gastrointestinal: Denies abdominal pain, nausea or vomiting Musculoskeletal Musculoskeletal: Denies back pain, extremity pain or neck pain Integumentary Denies laceration Neurologic Neurologic: Denies headache(s) or weakness EXAM Physical Exam Const Vital Signs: 08/13/24 17:15 08/13/24 18:15 08/13/24 18:33 Temperature 98.1 F Temperature Source Oral Pulse Rate 111 H Respiratory Rate 18 Respiratory Effort Normal Non-Labored Respiratory Depth Normal Respiratory Pattern Normal Blood Pressure 108/75 107/78 Blood Pressure Mean 86 87 Pulse Ox 97 96 96 Oxygen Delivery Method Room Air Room Air Positive well nourished and well developed General Appearance ED: well developed and NAD HEENT Reports TM's clear and nasal mucous membranes and turbinates normal trauma and hematoma Hematoma Size: 3-4 cm, right high parietal scalp. No crepitance or depression. Hematoma Face and Sinus: Negative for facial tenderness Tympanic Membrane ED: Yes TM's clear Eyes PERRL and EOMs intact bilaterally Visual Acuity: other Other Details: no entrapment or pain with extraocular movements Neck full ROM and supple General: Negative for tenderness Chest Wall inspection of chest normal and palpation of chest normal Chest: symmetrical chest wall rise; Negative for crepitus or tenderness Resp normal respiratory effort GI normal to inspection, nondistended, normoactive bowel sounds, soft to palpation and non-tender Back/Spine normal ROM Cervical Spine: Negative for cervical spine tenderness Thoracic Spine / Upper Back: Negative for thoracic spinal tenderness Lumbar Spine / Lower Back: Negative for lumbar spinal tenderness Extremity normal to inspection and full ROM General Extremety ED: Negative for tenderness Neuro CN's II-XII intact bilaterally, moves all extremities, no focal motor deficits and no sensory deficits noted Silvestre Coma Scale: document GCS findings Spontaneous Obeys Commands Oriented 15 Sensorium / Orientation: awake and alert Psych mental status grossly normal and thought process normal Skin no wounds Lesions: no lesions Rashes: no rashes MDM MDM MDM Narrative Medical decision making narrative: CT of the head and cervical spine were obtained. On my interpretation they are both without signs of acute fracture or intracranial hemorrhage. Radiology in agreement. Patient declined ice pack, Tylenol. Stable for discharge home with spouse. Radiography Diagnostic Testing: Clinical Impression(s) from Imaging Studies (more content not included)... Normal [facility] Spine Cervical without Contr ason 08-13-2024 Spine Cervical without Contras [facility] Imaging Services [address] [place], [place] [id number] Spine Cervical without Contras MR#: [id number] Acct: [id number] Name: PATRICIO PADRON Rep #: [id number] : 1955 M 69 From: Evan Spring MD PCP: Dr. Yanet Adams MD Status: REG ER Study: Spine Cervical without Contras Date of Exam: Exam# [id number] Ordering Dr: Jacki Valentino DO [id number] INDICATION: Trauma, fall, injury EXAMINATION: CT CERVICAL SPINE - CT Spine Cervical W/O Contrast Injection TECHNIQUE: Helically acquired images were obtained of the cervical spine. 2D reformatted images were reviewed. A radiation dose optimization technique was used for this scan. IV Contrast dosage and agent: None. COMPARISON: 07/24/2018 FINDINGS: VERTEBRAE: No acute fracture of the cervical spine. Anatomic alignment. DISCS and SPINAL CANAL: Degenerative discogenic changes. No critical stenosis. NECK SOFT TISSUES: No prevertebral soft tissue swelling. LUNG APICES: No acute pulmonary findings. CT/Spine Cervical without Contras IMPRESSION: Degenerative changes. No acute fracture of the cervical spine. Electronically Signed: Evan Spring MD at 18:38 EDT , CC: Dr. Jacki Valentino, DO; Dr. Yanet Adams MD Septic Tank Setter: Signed [facility] CNOVon 08-07-2024 CNOV Office Visit (NEMOWS ) -- PATRICIO PADORN ([id number]) 1955 [place] Date Time Provider Department 08/07/24 11:30 AM JAYDA ACE During your visit [...] COMPLAINT: follow up HISTORY OF PRESENT ILLNESS: Patricio Padron is a 69 year old male, [...] was before. Can no longer go to [employer] and walk around the store, is concerned [...] swelling or (more content not included)... Normal [facility] CNOVon 07-31-2024 CNOV Office Visit (UROLWS ) -- PATRICIO PADRON ([id number]) 1955 M Date Time Provider Department 07/31/24 1:00 PM NEERAJ JACOBS During your visit today, we recorded the following information about you: Temperature Pulse Blood pressure Weight 97.6 degrees 92/minute 110/78 68.9 kg Beny Chatterjee LPN 07/31/2024 1:57 PM Signed Verified name and date of . CC Post Void Residual HPI: Patricio Padron is a 69 year old male. The patient is here now for an appointment with MANJIT Montgomery MT, PA-COV. Procedure: Explained procedure to patient and verbalizes understanding. Performed a PVR. Patient went to bathroom at 1100 and is unable to urinate at this time. . Results of scan: >186 mL The patient tolerated the procedure well. Plan: Appointment with Neeraj Goldman PA-C 07/31/2024 1:57 PM Signed [facility] ESTABLISHED PATIENT CLINIC NOTE Some elements copied from his previous note, which have been updated where appropriate, and all reflect current medical decision making from date of this visit. 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 Normal [facility] UA DIP, URINE (POC)on 2023 BILIRUBIN UA (POCT) Negative Negative [facility] CLARITY UA (POCT) Clear [facility] COLOR UA (POCT) Dark yellow [facility] GLUCOSE UA (POCT) Negative Negative mg/dL [facility] Hemoglobin Ql (U) Negative Negative [facility] Interpretation and review of laboratory results Abnormal [facility] KETONE UA (POCT) Trace Negative mg/dL [facility] LEUKOCYTES UA (POCT) Negative Negative [facility] NITRITE UA (POCT) Negative Negative [facility] PH UA (POCT) 6.0 4.5 - 8.0 [facility] Protein Ql (U) Trace Abnormal Negative mg/dL [facility] SPECIFIC GRAVITY UA (POCT) 1.025 1.005 - 1.030 [facility] UROBILINOGEN UA (POCT) 0.2 Baylee l E.U./dL [facility] Location:[facility], [address], [place], [address] [facility] POINT OF CARE [facility] Prostate specific Ag [Mass/Vol] 1.31 ng/mL Normal <2.60 [facility] Comment on above: Order Comment: Speci men Type: BLOOD SPECIMENOrdering Facility: [facility] Address: [address] [place] [id number] Result Comment: Bert dawkins PSA test methodology used is the Electrochemiluminescence Immunoassay by [employer]. Total PSA values by differing methodologies cannot be interchanged. Performed By: #### 2 857-1 ####[facility] LABCLIA [id number] [address] [place] [id number] [facility] [place] 07-13-2024 CNPN Telephone (NEAGCLM) -- PATRICIO PADRON ([id number]) 1955 M Date Time Provider Department 07/13/24 KWADWO SRINIVASAN NEAGCLM During your visit today, [...] Known Allergies) Date Reviewed: 07/02/2024 Reviewed by: Blue Rendon MA - Fully Assessed Reason for Visit: Manager Outreach - Other [3756] Prescriptions as of 07/13/2024 - pravastatin (PRAVACHOL) [...] Status:Closed by BRANDIN KEBEDE on 07/13/24 Normal [facility] CBC W Auto Differential pane l (Bld)on 07-04-2024 Basophils (Bld) [#/Vol] 0.07 10*3/uL Normal <0.11 [facility] Comment on above: Order Comment: Speci men Type: BLOOD SPECIMENOrdering Facility: [facility] Address: [address] [place] [address] Performed By: #### 5 7021-8 ####[facility] LABCLIA [id number] [facility] [place] [address] [place] Basophils/100 WBC (Bld) 0.7 % Normal [facility] Comment on above: Order Comment: Speci men Type: BLOOD SPECIMENOrdering Facility: [facility] Address: [address] [place] [address] Performed By: #### 5 7021-8 ####[facility] LABCLIA [id number] [place] [address] [place] Differential cell count method Nom (Bld) Auto Normal [facility] Comment on above: Order Comment: Speci men Type: BLOOD SPECIMENOrdering Facility: [facility] Address: [address] [place] [address] Performed By: #### 5 7021-8 ####[facility] LABCLIA [id number] [place] [address] [place] Eosinophils (Bld) [#/Vol] 0.15 10*3/uL Normal <0.46 [facility] Comment on above: Order Comment: Speci men Type: BLOOD SPECIMENOrdering Facility: [facility] Address: [address] [place] [address] Performed By: #### 5 7021-8 ####[facility] LABIA [id number] [place] [address] [place] Eosinophils/100 WBC (Bld) 1.5 % Normal [facility] Comment on above: Order Comment: Speci men Type: BLOOD SPECIMENOrdering Facility: [facility] Address: [address] [place] [address] Performed By: #### 5 7021-8 ####[facility] LABCLIA [id number] [place] [address] [place] Erythrocyte distribution width (RBC) [Ratio] 13.4 % Normal 11.5-15.0 [facility] Comment on above: Order Comment: Speci men Type: BLOOD SPECIMENOrdering Facility: [facility] Address: [address] [place] [address] Performed By: #### 5 7021-8 ####[facility] LABCLIA [id number] [place] [id number] [place] Hematocrit (Bld) [Volume fraction] 45.7 % Normal 39.0-51.0 [facility] Comment on above: Order Comment: Speci men Type: BLOOD SPECIMENOrdering Facility: [facility] Address: [address] [place] [address] Performed By: #### 5 7021-8 ####[facility] LABCLIA [id number] [place] [address] [place] Hemoglobin (Bld) [Mass/Vol] 15.3 g/dL Normal 13.0-17.0 [facility] Comment on above: Order Comment: Speci men Type: BLOOD SPECIMENOrdering Facility: [facility] Address: [address] [place] [address] Performed By: #### 5 7021-8 ####[facility] LABCLIA [id number] [place] [address] [place] Immature granulocytes (Bld) [#/Vol] 0.03 10*3/uL Normal <0.10 [facility] Comment on above: Order Comment: Speci men Type: BLOOD SPECIMENOrdering Facility: [facility] Address: [address] [place] [address] Performed By: #### 5 7021-8 ####[facility] LABCLIA [id number] [place] [address] [place] Immature granulocytes/100 WBC (Bld) 0.3 % Normal [facility] Comment on above: Order Comment: Speci men Type: BLOOD SPECIMENOrdering Facility: [facility] Address: [address] [place] [address] Performed By: #### 5 7021-8 ####[facility] LABCLIA [id number] [place] [address] [place] Lymphocytes (Bld) [#/Vol] 2.92 10*3/uL Normal 1.00-4.00 [facility] Comment on above: Order Comment: Speci men Type: BLOOD SPECIMENOrdering Facility: [facility] Address: [address] [place] [address] Performed By: #### 5 7021-8 ####[facility] LABCLIA [id number] [place] [address] [place] Lymphocytes/100 WBC (Bld) 28.6 % Normal [facility] Comment on above: Order Comment: Speci men Type: BLOOD SPECIMENOrdering Facility: [facility] Address: [address] [place] [address] Performed By: #### 5 7021-8 ####[facility] LABCLIA [id number] [place] [address] [place] MCH (RBC) [Entitic mass] 29.3 pg Normal 26.0-34.0 [facility] Comment on above: Order Comment: Speci men Type: BLOOD SPECIMENOrdering Facility: [facility] Address: [address] [place] [address] Performed By: #### 5 7021-8 ####[facility] LABCLIA [id number] [place] [address] [place] MCHC (RBC) [Mass/Vol] 33.5 g/dL Normal 30.5-36.[address] [facility] Comment on above: Order Comment: Speci men Type: BLOOD SPECIMENOrdering Facility: [facility] Address: [address] [place] [address] Performed By: #### 5 7021-8 ####[facility] LABCLIA [id number] [place] [address] [place] MCV (RBC) [Entitic vol] 87.5 fL Normal 80.0-100.0 [facility] Comment on above: Order Comment: Speci men Type: BLOOD SPECIMENOrdering Facility: [facility] Address: [address] [place] [address] Performed By: #### 5 7021-8 ####[facility] LABCLIA [id number] [place] [address] [place] Monocytes (Bld) [#/Vol] 0.70 10*3/uL Normal <0.87 [facility] Comment on above: Order Comment: Speci men Type: BLOOD SPECIMENOrdering Facility: [facility] Address: [address] [place] [address] Performed By: #### 5 7021-8 ####[facility] LABCLIA [id number] [place] [address] [place] Monocytes/100 WBC (Bld) 6.9 % Normal [facility] Comment on above: Order Comment: Speci men Type: BLOOD SPECIMENOrdering Facility: [facility] Address: [address] [place] [address] Performed By: #### 5 7021-8 ####[facility] LABCLIA [id number] [place] [address] [place] Neutrophils (Bld) [#/Vol] 6.33 10*3/uL Normal 1.45-7.50 [facility] Comment on above: Order Comment: Speci men Type: BLOOD SPECIMENOrdering Facility: [facility] Address: [address] [place] [address] Performed By: #### 5 7021-8 ####[facility] LABCLIA [id number] [place] [address] [place] Neutrophils/100 WBC (Bld) 62.0 % Normal [facility] Comment on above: Order Comment: Speci men Type: BLOOD SPECIMENOrdering Facility: [facility] Address: [address] [place] [address] Performed By: #### 5 7021-8 ####[facility] LABCLIA [id number] [place] [address] [place] Nucleated RBC (Bld) [#/Vol] 10*3/uL Normal <0.01 [facility] Comment on above: Order Comment: Speci men Type: BLOOD SPECIMENOrdering Facility: [facility] Address: [address] [place] [address] Performed By: #### 5 7021-8 ####[facility] LABIA [id number] [place] [address] [place] Nucleated RBC/100 WBC (Bld) [Ratio] 0.0 /100 WBC Normal [facility] Comment on above: Order Comment: Speci men Type: BLOOD SPECIMENOrdering Facility: [facility] Address: [address] [place] [address] Performed By: #### 5 7021-8 ####[facility] LABIA [id number] [place] [address] [place] Platelet mean volume (Bld) [Entitic vol] 9.7 fL Normal 9.0-12.7 [facility] Comment on above: Order Comment: Speci men Type: BLOOD SPECIMENOrdering Facility: [facility] Address: [address] [place] [address] Performed By: #### 5 7021-8 ####[facility] LABIA [id number] [place] [address] [place] Platelets (Bld) [#/Vol] 254 10*3/uL Normal 150-400 [facility] Comment on above: Order Comment: Speci men Type: BLOOD SPECIMENOrdering Facility: [facility] Address: [address] [place] [address] Performed By: #### 5 7021-8 ####[facility] LABIA [id number] [place] [address] [place] RBC (Bld) [#/Vol] 5.22 10*6/uL Normal 4.20-6.00 [facility] Comment on above: Order Comment: Speci men Type: BLOOD SPECIMENOrdering Facility: [facility] Address: [address] [place] [address] Performed By: #### 5 7021-8 ####[facility] LABCLIA [id number] [address] [address] [place] WBC (Bld) [#/Vol] 10.20 10*3/uL Normal 3.70-11.00 [facility] Comment on above: Order Comment: Speci men Type: BLOOD SPECIMENOrdering Facility: [facility] Address: [address] [place] [address] Performed By: #### 5 7021-8 ####[facility] LABCLIA [id number] [place] [address] [place] Comprehensive metabolic 2000 panelon 07-04-2024 Albumin [Mass/Vol] 4.0 g/dL Normal 3.9-4.9 [facility] Comment on above: Order Comment: Speci men Type: BLOOD SPECIMENOrdering Facility: [facility] Address: [address] [place] [address] Performed By: #### 2 4331-1, 32009-6 ####[facility] LABIA [id number] [place] [address] [place] ALP [Catalytic activity/Vol] 87 U/L Normal 38-113 [facility] Comment on above: Order Comment: Speci men Type: BLOOD SPECIMENOrdering Facility: [facility] Address: [address] [place] [address] Performed By: #### 2 4331-1, 24131-5 ####[facility] LABCLIA [id number] [place] [id number] [place] ALT [Catalytic activity/Vol] 13 U/L Normal 10-54 [facility] Comment on above: Order Comment: Speci men Type: BLOOD SPECIMENOrdering Facility: [facility] Address: [address] [place] [address] Performed By: #### 2 4331-1, 30978-5 ####[facility] LABCLIA [id number] [place] [address] [place] Anion gap [Moles/Vol] 12 mmol/L Normal 8-[address] [facility] Comment on above: Order Comment: Speci men Type: BLOOD SPECIMENOrdering Facility: [facility] Address: [address] [place] [address] Performed By: #### 2 4331-1, 70541-6 ####[facility] LABCLIA [id number] [place] [address] [place] AST [Catalytic activity/Vol] 16 U/L Normal 14-40 [facility] Comment on above: Order Comment: Speci men Type: BLOOD SPECIMENOrdering Facility: [facility] Address: [address] [place] [address] Performed By: #### 2 4331-1, 60598-5 ####[facility] LABCLIA [id number] [place] [address] [place] Bilirubin [Mass/Vol] 0.6 mg/dL Normal 0.2-1.3 [facility] Comment on above: Order Comment: Speci men Type: BLOOD SPECIMENOrdering Facility: [facility] Address: [address] [place] [address] Performed By: #### 2 4331-1, 24002-1 ####[facility] LABCLIA [id number] [place] [address] [place] Calcium [Mass/Vol] 9.2 mg/dL Normal 8.5-10.2 [facility] Comment on above: Order Comment: Speci men Type: BLOOD SPECIMENOrdering Facility: [facility] Address: [address] [place] [address] Performed By: #### 2 4331-1, 65288-0 ####[facility] LABCLIA [id number] [place] [address] [place] Chloride [Moles/Vol] 106 mmol/L Normal 98-107 [facility] Comment on above: Order Comment: Speci men Type: BLOOD SPECIMENOrdering Facility: [facility] Address: [address] [place] [address] Performed By: #### 2 4331-1, 21766-6 ####[facility] LABIA [id number] [place] [id number] [place] CO2 [Moles/Vol] 22 mmol/L Normal 22-30 [facility] Comment on above: Order Comment: Speci men Type: BLOOD SPECIMENOrdering Facility: [facility] Address: [address] [place] [address] Performed By: #### 2 4331-1, 66874-2 ####[facility] LABIA [id number] [place] [address] [place] Creatinine [Mass/Vol] 0.78 mg/dL Normal 0.73-1.[address] [facility] Comment on above: Order Comment: Speci men Type: BLOOD SPECIMENOrdering Facility: [facility] Address: [address] [place] [address] Performed By: #### 2 4331-1, 88347-9 ####[facility] LABIA [id number] [address] [place] Creatinine and Glomerular filtration rate.predicted panel (S/P/Bld) 96 mL/min/1.73m??? Normal >=60 [facility] Comment on above: Order Comment: Speci men Type: BLOOD SPECIMENOrdering Facility: [facility] Address: [address] [place] [address] Result Comment: Katerine mated Glomerular Filtration Rate [...] actual GFR. Performed By: #### 2 4331-1, 96537-8 ####[facility] LABCLIA [id number] [address] [address] [place] Glucose [Mass/Vol] 99 mg/dL Normal 74-99 [facility] Comment on above: Order Comment: Speci men Type: BLOOD SPECIMENOrdering Facility: [facility] Address: [address] [place] [address] Result Comment: The [place] Diabetes Association (ADA) provides guidance for cutoff [...] Standards of Medical Care in Diabetes 2016, [place] [employer]. Diabetes Care. 2016.39(Suppl 1). Performed By: #### 2 4331-1, 84482-7 ####[facility] LABIA [id number] [place] [address] [place] Potassium [Moles/Vol] 4.0 mmol/L Normal 3.7-5.[address] [facility] Comment on above: Order Comment: Speci men Type: BLOOD SPECIMENOrdering Facility: [facility] Address: [address] [place] [address] Performed By: #### 2 4331-1, ####[facility] LABIA [id number] [place] [address] [place] Protein [Mass/Vol] 6.9 g/dL Normal 6.3-8.0 [facility] Comment on above: Order Comment: Speci men Type: BLOOD SPECIMENOrdering Facility: [facility] Address: [address] [place] [address] Performed By: #### 2 4331-, ####[facility] LABCLIA [id number] [address] [address] [place] Sodium [Moles/Vol] 140 mmol/L Normal 136-144 [facility] Comment on above: Order Comment: Speci men Type: BLOOD SPECIMENOrdering Facility: [facility] Address: [address] [place] [address] Performed By: #### 2 4331-1, ####[facility] LABIA [id number] [place] [address] [place] Urea nitrogen [Mass/Vol] 9 mg/dL Normal 9-24 [facility] Comment on above: Order Comment: Speci men Type: BLOOD SPECIMENOrdering Facility: [facility] Address: [address] [place] [address] Performed By: #### 2 4331-1, ####[facility] LABIA [id number] [place] [address] [place] HbA1c (Bld)on 07-04-2024 Average glucose Estimated from glycated hemoglobin (Bld) [Mass/Vol] 117 mg/dL Normal [facility] Comment on above: Order Comment: Speci men Type: BLOOD SPECIMENOrdering Facility: [facility] Address: [address] [place] [address] Result Comment: eAG: (Estimated average glucose) is a calculated value from HgbA1c and is public service representative of the average blood glucose level in the last 2-3 month period. Performed By: #### 5 5454-3 ####[facility] [id number] [place] [address] [place] HbA1c (Bld) [Mass fraction] 5.7 % High 4.3-5.6 [facility] Comment on above: Order Comment: Speci men Type: BLOOD SPECIMENOrdering Facility: [facility] Address: [address] [place] [address] Result Comment: Amer ican Diabetes Association guidelines indicate that patients with HgbA1c in the range 5.7-6.4% are at increased risk for development of diabetes, and intervention by lifestyle modification may be beneficial. HgbA1c greater or equal to 6.5% is considered diagnostic of diabetes. Performed By: #### 5 5454-3 ####[facility] [id number] [place] [address] [place] Lipid 1996 panelon 4 Cholesterol [Mass/Vol] 174 mg/dL Normal <200 [facility] Comment on above: Order Comment: Speci men Type: BLOOD SPECIMENOrdering Facility: [facility] Address: [address] [place] [address] Result Comment: <200 mg/dL, Desirable 200-239 mg/dL, Borderline high >239 mg/dL, High Performed By: #### 2 4331-1, 99625-6 ####[facility] [id number] [address] OF [facility] Cholesterol in HDL [Mass/Vol] 60 mg/dL Normal >39 [facility] Comment on above: Order Comment: George saldivar Type: BLOOD SPECIMENOrdering Facility: [facility] Address: [address] [place] [address] Result Comment: 40-5 9 mg/dL, Acceptable >59 mg/dL, High: Negative risk factor for coronary heart disease <40 mg/dL, Low: Positive risk factor for coronary heart disease Performed By: #### 2 4331-1, 52607-8 ####[facility] [id number] [address] OF [facility] Cholesterol in LDL [Mass/Vol] 94 mg/dL Normal <100 [facility] Comment on above: Order Comment: George saldivar Type: BLOOD SPECIMENOrdering Facility: [facility] Address: [address] [place] [address] Result Comment: <100 mg/dL, Optimal 100-129 mg/dL, Near optimal/above optimal 130-159 mg/dL, Borderline high 160-189 mg/dL, High >189 mg/dL, Very high Secondary prevention optimal LDL Cholesterol levels are recommended to be < 70 mg/dL Performed By: #### 2 4331-1, 30414-4 ####[facility] [id number] [place] [address] [place] Cholesterol in LDL/Cholesterol in HDL [Mass ratio] 1.57 {ratio} Normal <2.54 [facility] Comment on above: Order Comment: Speci men Type: BLOOD SPECIMENOrdering Facility: [facility] Address: [address] [place] [address] Result Comment: Refe rence: 1. National Cholesterol Education Program ATP III Guideline At-A-Glance Quick Desk Reference: National Heart, Lung, and Blood [place]. National Institutes of Health. 2001: NIH Publication No. 01-3305. 2. An International Atherosclerosis Society position paper: global recommendations for the management of dyslipidemia: executive summary, Atherosclerosis. 2014: 232(2):410-413. Performed By: #### 2 4331-, 59967-4 ####[facility] [id number] [place] [address] [place] Cholesterol in VLDL [Mass/Vol] 20 mg/dL Normal <30 [facility] Comment on above: Order Comment: George saldivar Type: BLOOD SPECIMENOrdering Facility: [facility] Address: [address] [place] [address] Performed By: #### 2 4331-1, 20785-6 ####[facility] [id number] [place] [address] [place] Cholesterol non HDL [Mass/Vol] 114 mg/dL Normal <130 [facility] Comment on above: Order Comment: George men Type: BLOOD SPECIMENOrdering Facility: [facility] Address: [address] [place] [address] Result Comment: <130 mg/dL, Optimal 130-159 mg/dL, Near optimal/above optimal 160-189 mg/dL, Borderline high 190-219 mg/dL, High >219 mg/dL, Very high Secondary prevention optimal non HDL Cholesterol levels are recommended to be <100 mg/dL Performed By: #### 2 4331-1, 70237-3 ####[facility] [id number] [place] [address] [place] Cholesterol.total/Chol esterol in HDL [Mass ratio] 2.90 {ratio} Normal <5.10 [facility] Comment on above: Order Comment: Speci men Type: BLOOD SPECIMENOrdering Facility: [facility] Address: [address] [place] [address] Performed By: #### 2 4331-1, 45706-9 ####[facility] [id number] [address] STATES OF [facility] FASTING TIME 15 hrs Normal [facility] Comment on above: Order Comment: Speci men Type: BLOOD SPECIMENOrdering Facility: [facility] Address: [address] [place] [address] Performed By: #### 2 4331-1, 20454-3 ####[facility] [id number] [place] [address] [place] Triglyceride [Mass/Vol] 98 mg/dL Normal <150 [facility] Comment on above: Order Comment: Speci men Type: BLOOD SPECIMENOrdering Facility: [facility] Address: [address] [place] [address] Result Comment: <150 mg/dL, Normal 150-199 mg/dL, Borderline high 200-499 mg/dL, High >499 mg/dL, Very high Performed By: #### 2 4331-1, 60991-0 ####[facility] [id number] [place] [address] [place] CNOVon 07-02-2024 CNOV Office Visit (FAMPWS ) -- VITO,PATRICIO Dawkins ([id number]) 1955 M Date Time Provider Department 07/02/24 11:20 AM YANET ADAMS During your visit today, we recorded the following information about you: Pulse Blood pressure Weight Height 84/minute 114/74 68.3 kg 1.651 m Yanet Adams MD 07/02/2024 11:41 AM Signed Patient [...] 114/74 Pulse 84 Ht 165.1 cm (5' 5) Wt 68.3 kg (150 lb 9.2 oz) [...] - as (more content not included)... Normal [facility] [id number] 06-21-2024 [id number] HNO ID: [id number] Author: CONNIE PEPE OTR/L Service: ? Author Type: Occupational Therapist Type: [id number] Filed: 06/21/2024 08:56 Note Text: [facility] Occupational Therapy Plan of Care Certification Patient Name: Patricio Padron : 1955 [facility] #: [id number] Date: 06/20/2024 To: Jayda Ace PA-C From Therapist: SAVITA Carter RE: Patient Certification/ Recertification Your review, approval and electronic signature are required in order to comply with Payor: [employer] MEDICARE / Plan: [employer] MEDICARE PPO / Product Type: PPO / regulations. The identified Occupational Therapy PLAN OF CARE for the patient is as follows: F03.90 Dementia without behavioral disturbance (HCC) (primary encounter diagnosis) PLAN OF CARE: SUMMARY AND RECOMMENDATIONS *The information in this report indicates the ability of the corporate driver to operate a motor vehicle on this date only. Due to the complex nature of the safe operation of a motor vehicle, and considering the demands of integrating changing environmental conditions, and visual, cognitive, and physical skills, successful completion of this program is not a guarantee of safe driving in the future. ASSESSMENT OF INSTRUMENTAL ADL AND COMMUNITY MOBILITY: Patricio Padron presents with the diagnosis of dementia [...] this time. Educated client and client's about nursing home from driving and provided resources to seek [...] Planned: 1 Patient to be see for Self-shelter management ([id number]), Community / Work Reintegration, Roentgenologist rehab evaluation PLAN FOR NEXT VISIT: Discontinue therapy services Patient demonstrates fair understanding of plan of care and treatment. The above goals and plan of care were discussed and agreed upon by patient/family. For further details regarding this patient refer to the Occupational Therapy electronically documented visit dated 06/20/2024. Provider Attestation I have reviewed the treatment plan for Patricio Padron, [facility]# [id number] for the period of 06/20/24 -- 06/21/24, established on 06/20/2024. Signature certifies the need for therapy services. Normal [facility] CNTHERAPYon 06-20-2024 CNTHERAPY OT/PT/Speech Visit (AKOTLK) -- PATRICIO PADRON ([id number]) 1955 M Date Time Provider Department 06/20/24 12:45 PM CONNIE PEPE Date Time Provider Department Center 06/20/2024 12:45 PM [id number] PEPE [facility] Reason for Visit: OT EVAL [748] OT [...] as needed for Pain. Letter Text Normal [facility] CT BRAIN WO IVCONon 11-21-19 [facility] Absolute lymphocyte countOrd ered By: Tahira Jenkins on 08-11-2023 Lymphocytes Auto (Unsp spec) [#/Vol] 2.21 10*3/uL 0.83-4.51 [facility] Basophil percentageOrdered B y: Tahira Jenkins on 08-11-2023 Basophils/100 WBC (Bld) 0.4 % 0-1 [facility] Chloride [Moles/Vol] 109 mmol/L 98-107 [facility] Eosinophils/100 WBC (Bld) 1.8 % 0-5 [facility] Glucose [Mass/Vol] 130 mg/dL 74-106 [facility] Comment on above: Fasting Glucose resu lt greater than or equal to 126 mg/dL suggests DIABETES MELLITUS per A.D.A. criteria. Neutrophils (Bld) [#/Vol] 10.5 10*3/uL 2.0-7.7 [facility] Neutrophils/100 WBC (Bld) 74.5 % 47-70 [facility] Potassium [Moles/Vol] 3.8 mmol/L 3.5-5.1 [facility] Sodium [Moles/Vol] 141 mmol/L 136-145 [facility] WBC (Bld) [#/Vol] 14.1 10*3/uL 4.4-11.0 [facility] Blood erythrocytes count (nu mber/volume)Ordered By: Tahira Jenkins on 08-11-2023 RBC (Bld) [#/Vol] 4.70 10*6/uL 4.6-6.2 [facility] Blood hemoglobin measurement (mass/volume)Ordered By: Tahira Jenkins on 08-11-2023 Hemoglobin (Bld) [Mass/Vol] 14.3 g/dL 13.0-16.5 [facility] Blood lymphocytes/100 leukoc ytesOrdered By: Tahira Jenkins on 08-11-2023 Lymphocytes/100 WBC (Bld) 15.7 % 19-41 [facility] Blood monocytes/100 leukocyt esOrdered By: Tahira Jenkins on 08-11-2023 Monocytes/100 WBC (Bld) 7.2 % 0-10 [facility] Blood platelet mean volumeOr dered By: Tahira Jenkins on 08-11-2023 Platelet mean volume (Bld) [Entitic vol] 9.2 fL 6.2-12.0 [facility] Determination of erythrocyte mean corpuscular volume (MCV)Ordered By: Tahira Jenkins on 08-11-2023 MCV (RBC) [Entitic vol] 90.6 fL 80-94 [facility] Hematocrit Auto (Bld) [Volum e fraction]Ordered By: Tahira Jenkins on 08-11-2023 Hematocrit (Bld) [Volume fraction] 42.6 % 40-54 [facility] INR in Blood by Coagulation assayOrdered By: Tahira Jenkins on 08-11-2023 INR Coag (Bld) [Relative time] 0.9 {INR} [facility] Laboratory - Chemistry and C hemistry - challengeOrdered By: Tahira Jenkins on 08-11-2023 CO2 [Moles/Vol] 26.0 mmol/L 21.0-32.0 [facility] Urea nitrogen/Creatinine [Mass ratio] 18.4 mg/mg 10- [facility] Laboratory - CoagulationOrde red By: Tahira Jenkins on 08-11-2023 aPTT Coag (Bld) [Time] 25.2 s 24.1-36.2 [facility] PT Coag (PPP) [Time] 12.1 s 11.7-14.9 [facility] Laboratory - Hematology and Cell countsOrdered By: Tahira Jenkins on 08-11-2023 Erythrocyte distribution width (RBC) [Entitic vol] 41.9 fL 35.1-43.9 [facility] Erythrocyte distribution width (RBC) [Ratio] 12.5 % 11.6-14.6 [facility] Immature granulocytes/100 WBC (Bld) 0.400 % 0.0-0.9 [facility] Comment on above: IG% - Immature Granu locytes (promyelocytes, myelocytes and metamyelocytes) > 1% indicates that a LEFT SHIFT is Present. MCH (RBC) [Entitic mass] 30.4 pg 27.0-32.0 [facility] Nucleated RBC/100 WBC (Bld) [Ratio] 0 % 0-5 [facility] MCHC Auto (RBC) [Mass/Vol]Or dered By: Tahira Jenkins on 08-11-2023 MCHC (RBC) [Mass/Vol] 33.6 g/dL 32-36 [facility] No Panel InformationOrdered By: Tahira Jenkins on 08-11-2023 Estimated Creatinine Clearance Calc 61.88 ml/min [facility] Estimated GFR (MDRD) Amer 98 mL/min >60 [facility] Comment on above: GFR Calc Estimated GFR (MDRD) Non-Af Amer 81 mL/min >60 [facility] Comment on above: Non- GFR Calc Platelets bldOrdered By: Bhavana Jenkins on 08-11-2023 Platelets (Bld) [#/Vol] 223 10*3/uL 150-450 [facility] Serum or plasma calcium zoe urement (mass/volume)Ordered By: Tahira Jenkins on 08-11-2023 Calcium [Mass/Vol] 8.5 mg/dL 8.5-10.1 [facility] Serum or plasma creatinine m easurement (mass/volume)Ordered By: Tahira Jenkins on 08-11-2023 Creatinine [Mass/Vol] 0.98 mg/dL 0.70-1.30 [facility] Comment on above: The validity of the calculated GFR & GFRAA in patients over 70 years has not been determined. Clinical correlation is essential. Serum or plasma urea nitroge n measurement (mass/volume)Ordered By: Tahira Jenkins on 08-11-2023 Urea nitrogen [Mass/Vol] 18 mg/dL 7-18 [facility] Thin prep Papanicolaou smear with manual screeningOrdered By: Tahira Jenkins on 08-11-2023 Thin prep Papanicolaou smear with manual screening 6 -15 [facility] UA DIP, URINE (POC)on 2022 BILIRUBIN UA (POCT) Negative Negative [facility] CLARITY UA (POCT) Clear [facility] COLOR UA (POCT) Dark yellow [facility] GLUCOSE UA (POCT) Negative Negative mg/dL [facility] Hemoglobin Ql (U) Negative Negative [facility] KETONE UA (POCT) Negative Negative mg/dL [facility] LEUKOCYTES UA (POCT) Negative Negative Cle[facility] NITRITE UA (POCT) Negative Negative [facility] PH UA (POCT) 7.0 4.5 - 8.0 [facility] Protein Ql (U) Negative Negative mg/dL [facility] SPECIFIC GRAVITY UA (POCT) 1.015 1.005 - 1.030 [facility] UROBILINOGEN UA (POCT) 0.2 E.U./dL Baylee l E.U./dL [facility] US KIDNEY/BLADDERon 04-22-20 [facility] UA DIP, URINE (POC)on 2022 BILIRUBIN UA (POCT) Negative Negative [facility] CLARITY UA (POCT) Clear [facility] COLOR UA (POCT) Yellow [facility] GLUCOSE UA (POCT) Negative Negative mg/dL [facility] HEMOGLOBIN/BLOOD UA (POCT) Negative Negative [facility] KETONE UA (POCT) Negative Negative mg/dL [facility] LEUKOCYTES UA (POCT) Negative Negative [facility] NITRITE UA (POCT) Negative Negative [facility] PH UA (POCT) 7.0 4.5 - 8.0 [facility] Protein Ql (U) Negative Negative mg/dL [facility] SPECIFIC GRAVITY UA (POCT) 1.015 1.005 - 1.030 [facility] UROBILINOGEN UA (POCT) 0.2 E.U./dL Baylee l E.U./dL [facility] MR Lumbar spine WO contrastO rdered By: Ccf Provider on 04-13-2023 Interpretation and review of laboratory results Abnormal [facility] Radiology Result ACTIONABLE Abnormal [facility] Comment on above: This report contains an [...] contact your provider for the next steps. [facility] MR Lumbar spine WO figueroao n 04-13-2023 IMPRESSION: 1. Multilevel degenerative changes [...] be communicated with the ordering provider via [employer] staff message or phone message by Imaging Support Services within 2 business days of report finalization. Algorithms for management of incidental imaging findings can be found on the [facility] Intranet Sharepoint site at: [email or web address] [email or web address]/A [email or web address] Transcribe Date/Time: Apr 13 2023 9:00A Dictated by: DOUGLAS ARRIAGA MD This examination was interpreted and the report reviewed and electronically signed by: DOUGLAS ARRIAGA MD on Apr 13 2023 9:08AM EST Thank you for allowing us to participate in the care of your patient. Should there be any questions regarding this interpretation, please call [phone]. If you are unable to reach us at the number above, please feel free to contact [facility] eRadiology at [phone]. DIVISION OF RADIOLOGY * * *Final Report* [...] Iliac wings at L4-L5 on the coronal liquid flavor compounder. By convention, 5 lumbar vertebral bodies are [...] benign renal cyst. DIVISION OF RADIOLOGY Provider, [facility] - 04/13/2023 * * *Final Report* * [...] Iliac wings at L4-L5 on the coronal liquid flavor compounder. By convention, 5 lumbar vertebral bodies are [...] be communicated with the ordering provider via [employer] staff message or phone message by [employer] within 2 business days of report finalization. Algorithms for management of incidental imaging findings can be found on the [facility] Intranet Sharepoint site at: [email or web address] ngs%[email or web address]/Forms/A [email or web address] Transcribe Date/Time: Apr 13 2023 9:00A Dictated by: DOUGLAS ARRIAGA MD This examination was interpreted and the report reviewed and electronically signed by: DOUGLAS ARRIAGA MD on Apr 13 2023 9:08AM EST Thank (more content not included)... [facility] MR Lumbar spine WO contrasto n 04-12-2023 Radiology Study observation (narrative) [facility] CT CHEST WO IVCONon 03-11-20 [facility] XR Chest PA and Lateralon IMPRESSION: Suspected 11 mm left lung nodule. Recommend CT chest. Septic Tank Setter: PSCB Transcribe Date/Time: Mar 04 2023 12:32A [...] within normal limits. DIVISION OF RADIOLOGY Provider, Gisell Kowalski [facility] - 03/04/2023 * * *Final Report* [...] mm left lung nodule. Recommend CT chest. Septic Tank Setter: PSCB Transcribe Date/Time: Mar 04 2023 12:32A Dictated by : DEEPAK AGARWAL MD This examination was interpreted and the report reviewed and electronically signed by: DEEPAK AGARWAL MD on Mar 04 2023 12:32AM EST [facility] XR Chest PA and LateralOrder ed By: Ccf Provider on 03-04-2023 [facility] ESR Westergren method (Bld) [Velocity]on 03-02-2023 ESR (Bld) [Velocity] 2 mm/h 0 - 15 mm/hr [facility] Urinalysis complete panel (U )on 03-02-2023 Bilirubin Ql (U) Negative Negative [facility] Clarity (Unsp spec) Clear Clear [facility] Color (U) Light Yellow Yellow [facility] Epithelial cells LM.HPF (Urine sed) [#/Area] Few [facility] Glucose Test strip (U) [Mass/Vol] Negative Trace, Negative [facility] Hemoglobin Ql (U) Negative Negative, Trace [facility] Ketones Ql (U) Negative Trace, Negative [facility] Leukocyte esterase Test strip Ql (U) Negative Negative, 25 Zeke/uL [facility] Nitrite Ql (U) Negative Negative [facility] pH (U) 6.5 [pH] 5.0 - 8.0 [facility] Protein (U) [Mass/Vol] Negative Trace , Negative [facility] RBC LM.HPF (Urine sed) [#/Area] 0-3 /HPF 0-3 /HPF [facility] Specific gravity (U) [Rel density] 1.010 1.005 - 1.030 [facility] Urobilinogen Ql (U) Negative Negative [facility] WBC LM.HPF (Urine sed) [#/Area] 0-5 /HPF 0-5 /HPF [facility] CBC W Auto Differential pane l (Bld)on 03-01-2023 Basophils (Bld) [#/Vol] 0.07 10*3/uL <0.11 k/uL [facility] Basophils/100 WBC (Bld) 0.7 % [facility] Differential cell count method Nom (Bld) Auto [facility] Eosinophils (Bld) [#/Vol] 0.22 10*3/uL <0.46 k/uL [facility] Eosinophils/100 WBC (Bld) 2.2 % [facility] Erythrocyte distribution width (RBC) [Ratio] 12.9 % 11.5 - 15.0 % [facility] Hematocrit (Bld) [Volume fraction] 49.4 % 39.0 - 51.0 % [facility] Hemoglobin (Bld) [Mass/Vol] 16.0 g/dL 13.0 - 17.0 g/dL [facility] Immature granulocytes (Bld) [#/Vol] 0.03 10*3/uL <0.10 k/uL [facility] Immature granulocytes/100 WBC (Bld) 0.3 % [facility] Lymphocytes (Bld) [#/Vol] 2.78 10*3/uL 1.00 - 4.00 k/uL [facility] Lymphocytes/100 WBC (Bld) 27.3 % [facility] MCH (RBC) [Entitic mass] 30.2 pg 26.0 - 34.0 pg [facility] MCHC (RBC) [Mass/Vol] 32.4 g/dL 30.5 - 36.0 g/dL [facility] MCV (RBC) [Entitic vol] 93.2 fL 80.0 - 100.0 fL [facility] Monocytes (Bld) [#/Vol] 0.73 10*3/uL <0.87 k/uL [facility] Monocytes/100 WBC (Bld) 7.2 % [facility] Neutrophils (Bld) [#/Vol] 6.37 10*3/uL 1.45 - 7.50 k/uL [facility] Neutrophils/100 WBC (Bld) 62.3 % [facility] Nucleated RBC (Bld) [#/Vol] <0.01 k/uL [facility] Nucleated RBC/100 WBC (Bld) [Ratio] 0.0 /100 WBC [facility] Platelet mean volume (Bld) [Entitic vol] 9.7 fL 9.0 - 12.7 fL [facility] Platelets (Bld) [#/Vol] 292 10*3/uL 150 - 400 k/uL [facility] RBC (Bld) [#/Vol] 5.30 10*6/uL 4.20 - 6.0 0 m/uL [facility] WBC (Bld) [#/Vol] 10.20 10*3/uL 3.70 - 11.00 k/uL [facility] XR Chest PA and Lateralon Radiology Study observation (narrative) [facility] XR DIGIT GENERAL 3V FRONTAL/ LAT/OBL RIGHTon 11-02-2022 [facility] XR Finger - right AP and Lat eral and obliqueon 11-02-2022 IMPRESSION: Acute fracture of the volar base of the third middle phalanx with soft tissue swelling. Septic Tank Setter: ANKIT Transcribe Date/Time: Nov 02 2022 11:00A Dictated by : CLINT CORREA MD This examination was interpreted and the report reviewed and electronically signed by: CLINT CORREA MD on Nov 02 2022 11:02AM [facility] DIVISION OF RADIOLOGY * * *Final Report* [...] osseous abnormality identified. DIVISION OF RADIOLOGY Provider, Danna Meghana [facility] - 11/02/2022 * * *Final Report* [...] third middle phalanx with soft tissue swelling. Septic Tank Setter: [facility] Transcribe Date/Time: Nov 02 2022 11:00A Dictated by : CLINT CORREA MD This examination was interpreted and the report reviewed and electronically signed by: CLINT CORREA MD on Nov 02 2022 11:02AM EST [facility] Radiology Study observation (narrative) [facility] XR Finger - right AP and Lat eral and obliqueOrdered By: Ccf Provider on 11-02-2022 [facility] UA DIP, URINE (POC)on 2021 BILIRUBIN UA (POCT) Negative Negative [facility] CLARITY UA (POCT) Slightly Cloudy [facility] COLOR UA (POCT) Dark yellow [facility] GLUCOSE UA (POCT) Negative Negative mg/dL [facility] HEMOGLOBIN/BLOOD UA (POCT) Negative Negative [facility] KETONE UA (POCT) Negative Negative mg/dL [facility] LEUKOCYTES UA (POCT) Negative Negative [facility] ([facility]) Negative Negative [facility] PH UA (POCT) 7.0 4.5 - 8.0 [facility] Protein Ql (U) Negative Negative mg/dL [facility] SPECIFIC GRAVITY UA (POCT) 1.020 1.005 - 1.030 [facility] UROBILINOGEN UA (POCT) 0.2 E.U./dL Baylee l E.U./dL [facility] XR Lumbar spine 3 Viewson IMPRESSION: Lumbar s pine degenerative changes with multilevel disc space narrowing. Septic Tank Setter: ANKIT Transcribe Date/Time: Jun 22 2022 1:23P Dictated by : OLEKSANDR RICE MD This examination was interpreted and the report reviewed and electronically signed by: OLEKSANDR RICE MD on Jun 22 2022 1:31PM [facility] DIVISION OF RADIOLOGY * * *Final Report* [...] spine are presented. FINDINGS: There are five ddp-[id number]-[id number] lumbar vertebrae. No fracture or subluxations are noted. Mild left-sided curvature is noted. There is generalized disc space narrowing, with or without endplate sclerosis. There is moderate osteophyte formation. Kissing spine seen on lateral view. Others: There are vascular calcifications. DIVISION OF RADIOLOGY Provider, Gisell Xiao - 06/22/2022 * * *Final Report* * [...] spine are presented. FINDINGS: There are five gwz-dkx-fvthhaa lumbar vertebrae. No fracture or subluxations are noted. Mild left-sided curvature is noted. There is generalized disc space narrowing, with or without endplate sclerosis. There is moderate osteophyte formation. Kissing spine seen on lateral view. Others: There are vascular calcifications. IMPRESSION IMPRESSION: Lumbar spine degenerative changes with multilevel disc space narrowing. Septic Tank Setter: [facility] Transcribe Date/Time: Jun 22 2022 1:23P Dictated by : OLEKSANDR RICE MD This examination was interpreted and the report reviewed and electronically signed by: OLEKSANDR RICE MD on Jun 22 2022 1:31PM EST [facility] Radiology Study [facility] (narrative) [facility] 3 ViewsOrder ed By: Ccf Provider on 06-22-2022 [facility] Wrist - left 4 Viewson IMPRESSION: No radiographic evidence of acute osseous abnormality Septic Tank Setter: [facility] Transcribe Date/Time: Feb 08 2022 1:14P [...] preserved. [id number]_ USE_DIVISIO N OF RADIOLOGY Provider, [facility] - 02/08/2022 * * *Final Report* * [...] No radiographic evidence of acute osseous abnormality Septic Tank Setter: [facility] Transcribe Date/Time: Feb 08 2022 1:14P Dictated by : CLINT CORREA MD This examination was interpreted and the report reviewed and electronically signed by: CLINT CORREA MD on Feb 08 2022 1:17PM EST [facility] Radiology Study observation (narrative) [facility] XR Wrist - left 4 ViewsOrder ed By: Ccf Provider on 02-08-2022 [facility] Hand - right PA and Later al and Obliqueon 05-04-2021 IMPRESSION: No radiographic evidence of acute osseous injury Septic Tank Setter: PSCAfshan Transcribe Date/Time: May 04 2021 2:31P Dictated [...] radiopaque foreign body. DIVISION OF RADIOLOGY Provider, [facility] - 05/04/2021 * * *Final Report* * [...] No radiographic evidence of acute osseous injury Septic Tank Setter: PSCB Transcribe Date/Time: May 04 2021 2:31P Dictated by : CLINT CORREA MD This examination was interpreted and the report reviewed and electronically signed by: CLINT CORREA MD on May 04 2021 2:32PM EST [facility] Radiology Study observation (narrative) [facility] Hand - right PA and Later al and ObliqueOrdered By: Ccf Provider on 05-04-2021 [facility] Vital Signs Date Time Vital Sign Value Performing Clinician Facility 05-28-2025 16:09-0400 Body mass index (BMI) [Ratio] 24.13 kg/m2 Yanet Adams MD Work Phone: [facility] 05-28-2025 16:09-0400 Body weight 65.77 kg Yanet Adams MD Work Phone: [facility] 05-28-2025 16:09-0400 Diastolic blood pressure 82 mm[Hg] Yanet Adams MD Work Phone: [facility] 05-28-2025 16:09-0400 Heart rate 84 /min Yanet Adams MD Work Phone: [facility] 05-28-2025 16:09-0400 SaO2% (BldA) [Mass fraction] 97 % Yanet Adams MD Work Phone: [facility] 05-28-2025 16:09-0400 Systolic blood pressure 122 mm[Hg] Yanet Adams MD Work Phone: [facility] 04-24-2025 07:05-0400 Diastolic blood pressure 73 mm[Hg] Dr. Yanet Adams MD Work Phone: [facility] 04-24-2025 07:05-0400 Heart rate 83 /min Dr. Yanet Adams MD Work Phone: [facility] 04-24-2025 07:05-0400 Respiratory rate 14 /min Dr. Yanet Adams MD Work Phone: [facility] 04-24-2025 07:05-0400 SaO2% (BldA) [Mass fraction] 97 % Dr. Yanet Adams MD Work Phone: [facility] 04-24-2025 07:05-0400 Systolic blood pressure 119 mm[Hg] Dr. Yanet Adams MD Work Phone: [facility] 04-24-2025 06:48-0400 Body temperature 97 [degF] Dr. Yanet Adams MD Work Phone: [facility] 04-24-2025 05:36-0400 Inhaled oxygen flow rate 97 L/min Dr. Yanet Adams MD Work Phone: [facility] 04-24-2025 05:33-0400 Body height 165.[address] Yanet Adams MD Work Phone: [facility] 04-24-2025 05:33-0400 Body mass index (BMI) [Ratio] 24.9 kg/m2 Dr. Yanet Adams MD Work Phone: [facility] 04-24-2025 05:33-0400 Body weight [address] Yanet Adams MD Work Phone: [facility] 04-22-2025 11:16-0400 Body temperature 98.1 [degF] Merry Gale CCC-UPHOLSTERY TECHNICIAN Work Phone: [facility] 04-22-2025 11:16-0400 Diastolic blood pressure 70 mm[Hg] Merry Gale CCC-UPHOLSTERY TECHNICIAN Work Phone: [facility] 04-22-2025 11:16-0400 Heart rate 98 /min Merry Gale CCC-UPHOLSTERY TECHNICIAN Work Phone: [facility] 04-22-2025 11:16-0400 Respiratory rate 16 /min Merry Gale CCC-UPHOLSTERY TECHNICIAN Work Phone: [facility] 04-22-2025 11:16-0400 SaO2% (BldA) [Mass fraction] 96 % Merry Gale CCC-UPHOLSTERY TECHNICIAN Work Phone: [facility] 04-22-2025 11:16-0400 Systolic blood pressure 104 mm[Hg] Merry Gale CCC-UPHOLSTERY TECHNICIAN Work Phone: [facility] 04-17-2025 15:58-0400 Body temperature 97.81 [degF] Chalo Owens PT Work Phone: [facility] 04-17-2025 15:58-0400 Diastolic blood pressure 68 mm[Hg] Chalo Owens PT Work Phone: [facility] 04-17-2025 15:58-0400 Heart rate 97 /min Chalo Owens PT Work Phone: [facility] 04-17-2025 15:58-0400 Respiratory rate 16 /min Chalo Owens PT Work Phone: [facility] 04-17-2025 15:58-0400 SaO2% (BldA) [Mass fraction] 96 % Chalo Owens PT Work Phone: [facility] 04-17-2025 15:58-0400 Systolic blood pressure 104 mm[Hg] Chalo Owens PT Work Phone: [facility] 04-09-2025 14:56-0400 Body temperature 97.7 [degF] Elizabeth Kamryn ENVIRONMENTAL ENGINEER SCIENTIST Work Phone: [facility] 04-09-2025 14:56-0400 Diastolic blood pressure 62 mm[Hg] Elizabeth Kamryn ENVIRONMENTAL ENGINEER SCIENTIST Work Phone: [facility] 04-09-2025 14:56-0400 Heart rate 87 /min Elizabeth Kamryn ENVIRONMENTAL ENGINEER SCIENTIST Work Phone: [facility] 04-09-2025 14:56-0400 Respiratory rate 18 /min Elizabeth Kamryn ENVIRONMENTAL ENGINEER SCIENTIST Work Phone: [facility] 04-09-2025 14:56-0400 SaO2% (BldA) [Mass fraction] 97 % Elizabeth Kamryn ENVIRONMENTAL ENGINEER SCIENTIST Work Phone: [facility] 04-09-2025 14:56-0400 Systolic blood pressure 106 mm[Hg] Elizabeth Kamryn ENVIRONMENTAL ENGINEER SCIENTIST Work Phone: [facility] 04-08-2025 13:48-0400 Body temperature 97.9 [degF] Merry Gale CCC-UPHOLSTERY TECHNICIAN Work Phone: [facility] 04-08-2025 13:48-0400 Diastolic blood pressure 78 mm[Hg] Merry Gale CCC-UPHOLSTERY TECHNICIAN Work Phone: [facility] 04-08-2025 13:48-0400 Heart rate 84 /min Merry Gale CCC-UPHOLSTERY TECHNICIAN Work Phone: [facility] 04-08-2025 13:48-0400 Respiratory rate 18 /min Merry Gale CCC-UPHOLSTERY TECHNICIAN Work Phone: [facility] 04-08-2025 13:48-0400 SaO2% (BldA) [Mass fraction] 97 % Merry Gale CCC-UPHOLSTERY TECHNICIAN Work Phone: [facility] 04-08-2025 13:48-0400 Systolic blood pressure 122 mm[Hg] Merry Gale CCC-UPHOLSTERY TECHNICIAN Work Phone: [facility] 04-03-2025 15:20-0400 Body temperature 98.2 [degF] Elizabeth Kamryn ENVIRONMENTAL ENGINEER SCIENTIST Work Phone: [facility] 04-03-2025 15:20-0400 Heart rate 99 /min Elizabeth Kamryn ENVIRONMENTAL ENGINEER SCIENTIST Work Phone: [facility] 04-03-2025 15:20-0400 SaO2% (BldA) [Mass fraction] 96 % Elizabeth Kamryn ENVIRONMENTAL ENGINEER SCIENTIST Work Phone: [facility] 03-29-2025 15:41-0400 Diastolic blood pressure 70 mm[Hg] Mike Knupp PT Work Phone: [facility] 03-29-2025 15:41-0400 Heart rate 75 /min Mike Knupp PT Work Phone: [facility] 03-29-2025 15:41-0400 Respiratory rate 18 /min Mike Knupp PT Work Phone: [facility] 03-29-2025 15:41-0400 SaO2% (BldA) [Mass fraction] 97 % Mike Knupp PT Work Phone: [facility] 03-29-2025 15:41-0400 Systolic blood pressure 104 mm[Hg] Mike Knupp PT Work Phone: [facility] 03-29-2025 15:20-0400 Body temperature 97.39 [degF] Mike Toth PT Work Phone: [facility] 03-27-2025 10:28-0400 Body temperature 98.2 [degF] Merkayli Gale CCC-UPHOLSTERY TECHNICIAN Work Phone: [facility] 03-27-2025 10:28-0400 Diastolic blood pressure 68 mm[Hg] Merry Gale CCC-UPHOLSTERY TECHNICIAN Work Phone: [facility] 03-27-2025 10:28-0400 Heart rate 88 /min Merry Gale CCC-UPHOLSTERY TECHNICIAN Work Phone: [facility] 03-27-2025 10:28-0400 Respiratory rate 18 /min Merry Gale CCC-UPHOLSTERY TECHNICIAN Work Phone: [facility] 03-27-2025 10:28-0400 SaO2% (BldA) [Mass fraction] 95 % Merry Gale CCC-UPHOLSTERY TECHNICIAN Work Phone: [facility] 03-27-2025 10:28-0400 Systolic blood pressure 112 mm[Hg] Merry Gale CCC-UPHOLSTERY TECHNICIAN Work Phone: [facility] 03-23-2025 14:20-0400 Body mass index (BMI) [Ratio] 24.7 kg/m2 Bettychio Montanezicic CCC-UPHOLSTERY TECHNICIAN Work Phone: [facility] 03-23-2025 14:20-0400 Body temperature 98.2 [degF] Bettychio Montanezicic CCC-UPHOLSTERY TECHNICIAN Work Phone: [facility] 03-23-2025 14:20-0400 Body weight 67.31 kg Betty Kendallubicic CCC-UPHOLSTERY TECHNICIAN Work Phone: [facility] 03-23-2025 14:20-0400 Diastolic blood pressure 68 mm[Hg] Betty Ljubicic CCC-UPHOLSTERY TECHNICIAN Work Phone: [facility] 03-23-2025 14:20-0400 Heart rate 88 /min Betty Kendallubicic CCC-UPHOLSTERY TECHNICIAN Work Phone: [facility] 03-23-2025 14:20-0400 Respiratory rate 16 /min Betty [facility]-UPHOLSTERY TECHNICIAN Work Phone: [facility] 03-23-2025 14:20-0400 SaO2% (BldA) [Mass fraction] 96 % [facility]CHNIC[facility] Work Phone: [facility] 03-23-2025 14:20-0400 Systolic blood pressure 102 mm[Hg] Betty [facility]-UPHOLSTERY TECHNICIAN Work Phone: [facility] 02-19-2025 12:41-0400 Diastolic blood pressure 85 mm[Hg] Giselle Verdouw OTR/L Work Phone: [facility] 02-19-2025 12:41-0400 Heart rate 91 /min Giselle Verdouw OTR/L Work Phone: [facility] 02-19-2025 12:41-0400 Systolic blood pressure 129 mm[Hg] Giselle Verdouw OTR/L Work Phone: [facility] 01-29-2025 10:35-0400 Body mass index (BMI) [Ratio] 24.13 kg/m2 Jeanine Suppan TEA LEAF READER.MECHANICAL INTERN Work Phone: [facility] 01-29-2025 10:35-0400 Body temperature 97.3 [degF] Jeanine Suppan TEA LEAF READER.MECHANICAL INTERN Work Phone: [facility] 01-29-2025 10:35-0400 Body weight 65.77 kg Jeanine Suppan TEA LEAF READER.MECHANICAL INTERN Work Phone: [facility] 01-29-2025 10:35-0400 Diastolic blood pressure 70 mm[Hg] Jeanine Suppan TEA LEAF READER.MECHANICAL INTERN Work Phone: [facility] 01-29-2025 10:35-0400 Heart rate 101 /min Jeanine Suppan TEA LEAF READER.MECHANICAL INTERN Work Phone: [facility] 01-29-2025 10:35-0400 SaO2% (BldA) [Mass fraction] 93 % Jeanine Suppan TEA LEAF READER.MECHANICAL INTERN Work Phone: [facility] 01-29-2025 10:35-0400 Systolic blood pressure 118 mm[Hg] Jeanine Fermin TEA LEAF READER.MECHANICAL INTERN Work Phone: [facility] 01-08-2025 11:17-0400 Diastolic blood pressure 74 mm[Hg] Jayda Devliner PA-C Work Phone: [facility] 01-08-2025 11:17-0400 Heart rate 98 /min Jayda Devliner PA-C Work Phone: [facility] 01-08-2025 11:17-0400 SaO2% (BldA) [Mass fraction] 95 % Jayda Devliner PA-C Work Phone: [facility] 01-08-2025 11:17-0400 Systolic blood pressure 106 mm[Hg] Jayda Devliner PA-C Work Phone: [facility] 01-02-2025 10:43-0400 Body mass index (BMI) [Ratio] 24.46 kg/m2 Yanet Adams MD Work Phone: [facility] 01-02-2025 10:43-0400 Body weight 66.68 kg Yanet Adams MD Work Phone: [facility] 01-02-2025 10:43-0400 Diastolic blood pressure 72 mm[Hg] Yanet Adams MD Work Phone: [facility] 01-02-2025 10:43-0400 Heart rate 85 /min Yanet Adams MD Work Phone: [facility] 01-02-2025 10:43-0400 SaO2% (BldA) [Mass fraction] 97 % Yanet Adams MD Work Phone: [facility] 01-02-2025 10:43-0400 Systolic blood pressure 100 mm[Hg] Yanet Adams MD Work Phone: [facility] 08-20-2024 14:30-0500 Body mass index (BMI) [Ratio] 24.84 kg/m2 Kwadwo Srinivasan MD, PhD Work Phone: [facility] 08-20-2024 14:30-0500 Body weight 67.7 kg Kwadwo Srinivasan MD, PhD Work Phone: [facility] 08-20-2024 14:30-0500 Diastolic blood pressure 87 mm[Hg] Kwadwo Srinivasan MD, PhD Work Phone: [facility] 08-20-2024 14:30-0500 Heart rate 84 /min Kwadwo Srinivasan MD, PhD Work Phone: [facility] 08-20-2024 14:30-0500 Respiratory rate 16 /min Kwadwo Srinivasan MD, PhD Work Phone: [facility] 08-20-2024 14:30-0500 SaO2% (BldA) [Mass fraction] 98 % Kwadwo Srinivasan MD, PhD Work Phone: [facility] 08-20-2024 14:30-0500 Systolic blood pressure 124 mm[Hg] Kwadwo Srinivasan MD, PhD Work Phone: [facility] 08-07-2024 11:22-0400 Body mass index (BMI) [Ratio] 24.93 kg/m2 Jayda Devliner PA-C Work Phone: [facility] 08-07-2024 11:22-0400 Body weight 67.95 kg Jayda Ace PA-C Work Phone: [facility] 08-07-2024 11:22-0400 Diastolic blood pressure 81 mm[Hg] Jayda Devliner PA-C Work Phone: [facility] 08-07-2024 11:22-0400 Heart rate 83 /min Jayda Ace PA-C Work Phone: [facility] 08-07-2024 11:22-0400 SaO2% (BldA) [Mass fraction] 98 % Jayda Devliner PA-C Work Phone: [facility] 08-07-2024 11:22-0400 Systolic blood pressure 123 mm[Hg] Jayda Ace PA-C Work Phone: [facility] 07-31-2024 13:03-0400 Body mass index (BMI) [Ratio] 25.29 kg/m2 Neeraj Jacobs PA-C Work Phone: [facility] 07-31-2024 13:03-0400 Body temperature 97.59 [degF] Neeraj Jacobs PA-C Work Phone: [facility] 07-31-2024 13:03-0400 Body weight 68.95 kg Neeraj Jacobs PA-C Work Phone: [facility] 07-31-2024 13:03-0400 Diastolic blood pressure 78 mm[Hg] Neeraj Jacobs PA-C Work Phone: [facility] 07-31-2024 13:03-0400 Heart rate 92 /min Neeraj Jacobs PA-C Work Phone: [facility] 07-31-2024 13:03-0400 SaO2% (BldA) [Mass fraction] 99 % Neeraj Jacobs PA-C Work Phone: [facility] 07-31-2024 13:03-0400 Systolic blood pressure 110 mm[Hg] Neeraj Jacobs PA-C Work Phone: [facility] 07-02-2024 11:09-0400 Body height 165.1 cm Yanet Adams MD Work Phone: [facility] 07-02-2024 11:09-0400 Body mass index (BMI) [Ratio] 25.06 kg/m2 Yanet Adams MD Work Phone: [facility] 07-02-2024 11:09-0400 Body weight 68.3 kg Yanet Adams MD Work Phone: [facility] 07-02-2024 11:09-0400 Diastolic blood pressure 74 mm[Hg] Yanet Adams MD Work Phone: [facility] 07-02-2024 11:09-0400 Heart rate 84 /min Yanet Adams MD Work Phone: [facility] 07-02-2024 11:09-0400 Systolic blood pressure 114 mm[Hg] Yanet Adams MD Work Phone: [facility] 06-20-2024 12:00-0400 Diastolic blood pressure 74 mm[Hg] Connie Geil OTR/L Work Phone: [facility] 06-20-2024 12:00-0400 Heart rate 89 /min Connie Geil OTR/L Work Phone: [facility] 06-20-2024 12:00-0400 Systolic blood pressure 112 mm[Hg] Connie Geil OTR/L Work Phone: [facility] 04-24-2024 11:30-0400 Body mass index (BMI) [Ratio] 24.63 kg/m2 Jayda Queener PA-C Work Phone: [facility] 04-24-2024 11:30-0400 Body weight 67.13 kg Jayda Queener PA-C Work Phone: [facility] 04-24-2024 11:30-0400 Diastolic blood pressure 81 mm[Hg] Jayda Queener PA-C Work Phone: [facility] 04-24-2024 11:30-0400 Heart rate 89 /min Jayda Queener PA-C Work Phone: [facility] 04-24-2024 11:30-0400 Respiratory rate 18 /min Jayda Queener PA-C Work Phone: [facility] 04-24-2024 11:30-0400 SaO2% (BldA) [Mass fraction] 99 % Jayda Queener PA-C Work Phone: [facility] 04-24-2024 11:30-0400 Systolic blood pressure 122 mm[Hg] Jayda Queener PA-C Work Phone: [facility] 12-30-2023 14:53-0400 Body height 165.1 cm Yanet Adams MD Work Phone: [facility] 12-30-2023 14:53-0400 Body weight 68.95 kg Yanet Adams MD Work Phone: [facility] 12-30-2023 14:53-0400 Diastolic blood pressure 76 mm[Hg] Yanet Adams MD Work Phone: [facility] 12-30-2023 14:53-0400 Heart rate 101 /min Yanet Adams MD Work Phone: [facility] 12-30-2023 14:53-0400 SaO2% (BldA) [Mass fraction] 99 % Yanet Adams MD Work Phone: [facility] 12-30-2023 14:53-0400 Systolic blood pressure 104 mm[Hg] Yanet Adams MD Work Phone: [facility] 12-13-2023 10:32-0500 Body weight 68.31 kg Jayda Queener PA-C Work Phone: [facility] 12-13-2023 10:32-0500 Diastolic blood pressure 74 mm[Hg] Jayda Queener PA-C Work Phone: [facility] 12-13-2023 10:32-0500 Heart rate 95 /min Jayda Queener PA-C Work Phone: [facility] 12-13-2023 10:32-0500 Respiratory rate 16 /min Jayda Queener PA-C Work Phone: [facility] 12-13-2023 10:32-0500 SaO2% (BldA) [Mass fraction] 100 % Jayda Queener PA-C Work Phone: [facility] 12-13-2023 10:32-0500 Systolic blood pressure 122 mm[Hg] Jayda Queener PA-C Work Phone: [facility] 11-21-2023 10:52-0500 Body height 165.1 cm Kwadwo Srinivasan MD, PhD Work Phone: [facility] 11-21-2023 10:52-0500 Body weight 69.2 kg Kwadwo Srinivasan MD, PhD Work Phone: [facility] 11-21-2023 10:52-0500 Diastolic blood pressure 79 mm[Hg] Kwadwo Srinivasan MD, PhD Work Phone: [facility] 11-21-2023 10:52-0500 Heart rate 83 /min Kwadwo Srinivasan MD, PhD Work Phone: [facility] 11-21-2023 10:52-0500 SaO2% (BldA) [Mass fraction] 96 % Kwadwo Srinivasan MD, PhD Work Phone: [facility] 11-21-2023 10:52-0500 Systolic blood pressure 116 mm[Hg] Kwadwo Srinivasan MD, PhD Work Phone: [facility] 09-22-2023 13:05-0500 Body height 165.1 cm Melissa Rivero MD Work Phone: [facility] 09-22-2023 13:05-0500 Body weight 69.85 kg Melissa Rivero MD Work Phone: [facility] 09-22-2023 13:05-0500 Diastolic blood pressure 81 mm[Hg] Melissa Rivero MD Work Phone: [facility] 09-22-2023 13:05-0500 Heart rate 72 /min Melissa Rivero MD Work Phone: [facility] 09-22-2023 13:05-0500 Respiratory rate 16 /min Melissa Rivero MD Work Phone: [facility] 09-22-2023 13:05-0500 SaO2% (BldA) [Mass fraction] 98 % Melissa Rivero MD Work Phone: [facility] 09-22-2023 13:05-0500 Systolic blood pressure 120 mm[Hg] Melissa Rivero MD Work Phone: [facility] 08-24-2023 11:07-0500 Body weight 70.08 kg Jayda Ace PA-C Work Phone: [facility] 08-24-2023 11:07-0500 Diastolic blood pressure 81 mm[Hg] Jayda Ace PA-C Work Phone: [facility] 08-24-2023 11:07-0500 Heart rate 87 /min Jayda Ace PA-C Work Phone: [facility] 08-24-2023 11:07-0500 Respiratory rate 16 /min Jayda Ace PA-C Work Phone: [facility] 08-24-2023 11:07-0500 SaO2% (BldA) [Mass fraction] 99 % Jayda Ace PA-C Work Phone: [facility] 08-24-2023 11:07-0500 Systolic blood pressure 124 mm[Hg] Jayda Ace PA-C Work Phone: [facility] 08-11-2023 04:30-0400 Diastolic blood pressure 78 mm[Hg] [facility] 08-11-2023 04:30-0400 Heart rate 99 /min [facility] 08-11-2023 04:30-0400 Respiratory rate 12 /min [facility] 08-11-2023 04:30-0400 SaO2% (BldA) [Mass fraction] 98 % [facility] 08-11-2023 04:30-0400 Systolic blood pressure 121 mm[Hg] [facility] 08-11-2023 00:11-0400 Body height 165.1 cm [facility] 08-11-2023 00:11-0400 Body mass index (BMI) [Ratio] 26.2 kg/m2 [facility] 08-11-2023 00:11-0400 Body temperature 98.4 [degF] [facility] 08-11-2023 00:11-0400 Body weight 71.6 kg [facility] 07-26-2023 13:10-0400 Body height 165.1 cm Neeraj Jacobs PA-C Work Phone: [facility] 07-26-2023 13:10-0400 Body temperature 97.81 [degF] Neeraj Jacobs PA-C Work Phone: [facility] 07-26-2023 13:10-0400 Body weight 69.4 kg Neeraj Jacobs PA-C Work Phone: [facility] 07-26-2023 13:10-0400 Diastolic blood pressure 82 mm[Hg] Neeraj Jacobs PA-C Work Phone: [facility] 07-26-2023 13:10-0400 Heart rate 106 /min Neeraj Jacobs PA-C Work Phone: [facility] 07-26-2023 13:10-0400 Respiratory rate 12 /min Neeraj Jacobs PA-C Work Phone: [facility] 07-26-2023 13:10-0400 SaO2% (BldA) [Mass fraction] 99 % Neeraj Jacobs PA-C Work Phone: [facility] 07-26-2023 13:10-0400 Systolic blood pressure 108 mm[Hg] Neeraj Jacobs PA-C Work Phone: [facility] 07-01-2023 13:34-0400 Body height 162.6 cm Yanet Adams MD Work Phone: [facility] 07-01-2023 13:34-0400 Body weight 69.85 kg Yanet Adams MD Work Phone: [facility] 07-01-2023 13:34-0400 Diastolic blood pressure 62 mm[Hg] Yanet Adams MD Work Phone: [facility] 07-01-2023 13:34-0400 Heart rate 102 /min Yanet Adams MD Work Phone: [facility] 07-01-2023 13:34-0400 SaO2% (BldA) [Mass fraction] 98 % Yanet Adams MD Work Phone: [facility] 07-01-2023 13:34-0400 Systolic blood pressure 104 mm[Hg] Yanet Adams MD Work Phone: [facility] 05-25-2023 14:21-0400 Body height 162.6 cm Anika MOSQUEDA-C Work Phone: [facility] 05-25-2023 [id number] Body weight 67.77 kg Anika Hernandez PA-C Work Phone: [facility] 05-25-2023 14:21-0400 Diastolic blood pressure 61 mm[Hg] Anika MOSQUEDA-C Work Phone: [facility] 05-25-2023 14:21-0400 Heart rate 95 /min Anika Hernandez PA-C Work Phone: [facility] 05-25-2023 14:21-0400 SaO2% (BldA) [Mass fraction] 99 % Anika Hernandez PA-C Work Phone: [facility] 05-25-2023 14:21-0400 Systolic blood pressure 112 mm[Hg] Anika Hernandez PA-C Work Phone: [facility] 04-20-2023 13:13-0400 Body weight 67.04 kg Fidelina Haagen TEA LEAF READER.MECHANICAL INTERN Work Phone: [facility] 04-20-2023 13:13-0400 Diastolic blood pressure 72 mm[Hg] Fidelina Haagen TEA LEAF READER.MECHANICAL INTERN Work Phone: [facility] 04-20-2023 13:13-0400 Heart rate 91 /min Fidelina Haagen TEA LEAF READER.MECHANICAL INTERN Work Phone: [facility] 04-20-2023 13:13-0400 Respiratory rate 16 /min Fidelina Haagen TEA LEAF READER.MECHANICAL INTERN Work Phone: [facility] 04-20-2023 13:13-0400 SaO2% (BldA) [Mass fraction] 93 % Fidelina Haagen TEA LEAF READER.MECHANICAL INTERN Work Phone: [facility] 04-20-2023 13:13-0400 Systolic blood pressure 110 mm[Hg] Fidelina Haagen TEA LEAF READER.MECHANICAL INTERN Work Phone: [facility] 03-01-2023 12:57-0400 Body weight 67.13 kg Fidelina Haagen TEA LEAF READER.MECHANICAL INTERN Work Phone: [facility] 03-01-2023 12:57-0400 Diastolic blood pressure 64 mm[Hg] Fidelina Haagen TEA LEAF READER.MECHANICAL INTERN Work Phone: [facility] 03-01-2023 12:57-0400 Heart rate 82 /min Fidelina Haagen TEA LEAF READER.MECHANICAL INTERN Work Phone: [facility] 03-01-2023 12:57-0400 Respiratory rate 16 /min Fidelina Haagen TEA LEAF READER.MECHANICAL INTERN Work Phone: [facility] 03-01-2023 12:57-0400 SaO2% (BldA) [Mass fraction] 97 % Fidelina Haagen TEA LEAF READER.MECHANICAL INTERN Work Phone: [facility] 03-01-2023 12:57-0400 Systolic blood pressure 110 mm[Hg] Fidelina Haagen TEA LEAF READER.MECHANICAL INTERN Work Phone: [facility] 11-02-2022 10:21-0500 Body temperature 97.2 [degF] Becca Ariela TEA LEAF READER.MECHANICAL INTERN Work Phone: [facility] 11-02-2022 10:21-0500 Body weight 73.03 kg Becca Ariela TEA LEAF READER.MECHANICAL INTERN Work Phone: [facility] 11-02-2022 10:21-0500 Diastolic blood pressure 82 mm[Hg] Becca Ariela TEA LEAF READER.MECHANICAL INTERN Work Phone: [facility] 11-02-2022 10:21-0500 Heart rate 90 /min Becca Ariela TEA LEAF READER.MECHANICAL INTERN Work Phone: [facility] 11-02-2022 10:21-0500 Respiratory rate 16 /min Becca Ariela TEA LEAF READER.MECHANICAL INTERN Work Phone: [facility] 11-02-2022 10:21-0500 SaO2% (BldA) [Mass fraction] 99 % Becca Ariela TEA LEAF READER.MECHANICAL INTERN Work Phone: [facility] 11-02-2022 10:21-0500 Systolic blood pressure 132 mm[Hg] Becca Ariela MECHANICAL INTERN Work Phone: [facility] 07-20-2022 12:58-0400 Body height 165.1 cm Neeraj Jacobs PA-C Work Phone: [facility] 07-20-2022 12:58-0400 Body temperature 97.81 [degF] Neeraj Jacobs PA-C Work Phone: [facility] 07-20-2022 12:58-0400 Body weight 68.49 kg Neeraj Jacobs PA-C Work Phone: [facility] 07-20-2022 12:58-0400 Diastolic blood pressure 78 mm[Hg] Neeraj Jacobs PA-C Work Phone: [facility] 07-20-2022 12:58-0400 Heart rate 110 /min Neeraj Jacobs PA-C Work Phone: [facility] 07-20-2022 12:58-0400 Respiratory rate 14 /min Neeraj Jacobs PA-C Work Phone: [facility] 07-20-2022 12:58-0400 SaO2% (BldA) [Mass fraction] 96 % Neeraj Jacobs PA-C Work Phone: [facility] 07-20-2022 12:58-0400 Systolic blood pressure 110 mm[Hg] Neeraj Jacobs PA-C Work Phone: [facility] 06-24-2022 15:18-0400 Body weight 68.04 kg Yanet Adams MD Work Phone: [facility] 06-24-2022 15:18-0400 Diastolic blood pressure 62 mm[Hg] Yanet Adams MD Work Phone: [facility] 06-24-2022 15:18-0400 Heart rate 88 /min Yanet Adams MD Work Phone: [facility] 06-24-2022 15:18-0400 Systolic blood pressure 102 mm[Hg] Yanet Adams MD Work Phone: [facility] 06-17-2022 14:15-0400 Body temperature 97.2 [degF] Ashley Quirogahlhausen TEA LEAF READER.MECHANICAL INTERN Work Phone: [facility] 06-17-2022 14:15-0400 Body weight 69.31 kg Ashley Kaitlynhausen TEA LEAF READER.MECHANICAL INTERN Work Phone: [facility] 06-17-2022 14:15-0400 Diastolic blood pressure 62 mm[Hg] Ashley Junaidhlhausen TEA LEAF READER.MECHANICAL INTERN Work Phone: [facility] 06-17-2022 14:15-0400 Heart rate 91 /min Ashley Dahlhausen TEA LEAF READER.MECHANICAL INTERN Work Phone: [facility] 06-17-2022 14:15-0400 Respiratory rate 16 /min Ashley Dahlhausen TEA LEAF READER.MECHANICAL INTERN Work Phone: [facility] 06-17-2022 14:15-0400 SaO2% (BldA) [Mass fraction] 98 % Ashley Junaidhlhausen TEA LEAF READER.MECHANICAL INTERN Work Phone: [facility] 06-17-2022 14:15-0400 Systolic blood pressure 100 mm[Hg] Ashley Junaidhlhausen TEA LEAF READER.MECHANICAL INTERN Work Phone: [facility] 02-07-2022 12:27-0400 Body temperature 97.39 [degF] Isabella Dasilva TEA LEAF READER.MECHANICAL INTERN Work Phone: [facility] 02-07-2022 12:27-0400 Body weight 72.58 kg Isabella Dasilva TEA LEAF READER.MECHANICAL INTERN Work Phone: [facility] 02-07-2022 12:27-0400 Diastolic blood pressure 78 mm[Hg] Isabella Dasilva TEA LEAF READER.MECHANICAL INTERN Work Phone: [facility] 02-07-2022 12:27-0400 Heart rate 102 /min Isabella Dasilva TEA LEAF READER.MECHANICAL INTERN Work Phone: [facility] 02-07-2022 12:27-0400 Respiratory rate 16 /min Isabella Dasilva TEA LEAF READER.MECHANICAL INTERN Work Phone: [facility] 02-07-2022 12:27-0400 SaO2% (BldA) [Mass fraction] 97 % Isabella Dasilva SLOAN.MECHANICAL INTERN Work Phone: [facility] 02-07-2022 12:27-0400 Systolic blood pressure 128 mm[Hg] Isabella Brown LISA.MECHANICAL INTERN Work Phone: [facility] Encounters Encounter Date Encounter Type Care Provider Facility Start: 06-11-2025 End: 06-11-2025 Refill Yanet Adams MD Work Phone: [facility] Comment on above: Refill Request Start: 06-10-2025 End: 06-10-2025 ambulatory Yanet Adams MD Work Phone: [facility] Comment on above: Allied Health Visit (Medication adherence outreach/) Start: 06-07-2025 ambulatory YANET BRYAN Facility :[facility] Start: 06-07-2025 End: 06-07-2025 Subsequent hospital visit by physician [facility] Work Phone: Radiology Comment on above: Mass of left upper e xtremity [R22.32] Start: 06-06-2025 End: 06-06-2025 Telephone encounter Yanet Adams MD Work Phone: [facility] [place] Comment on above: [facility] Start: 06-05-2025 End: 06-06-2025 Telephone encounter Yanet Adams MD Work Phone: [facility] [place] Comment on above: Patient Update; Resu lts (of overnight pulse ox/) Start: 06-04-2025 End: 06-04-2025 Telephone encounter Yanet Adams MD Work Phone: [facility] [place] Comment on above: Results Start: 06-04-2025 End: 06-04-2025 ambulatory YANET ADAMS Facility:[facility] Start: 05-28-2025 End: 05-28-2025 Patient encounter procedure Yanet Adams MD Work Phone: [facility] [place] Comment on above: Unsteady gait (Prima ry Dx); SDH (subdural hematoma) (HCC); Mass of left upper extremity; Ataxia, unspecified; Leukocytosis, unspecified type; Anorexia; 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); Tobacco use; SOB (shortness of breath); Heat intolerance Start: 05-28-2025 End: 05-28-2025 ambulatory YANET Anderson [facility] Facility:[facility] Start: 05-22-2025 End: 05-22-2025 ambulatory LINHKARYN HECTOR Facility:[facility] Start: 05-17-2025 ambulatory MELANIE CHUNG Tima y:[facility] Start: 05-17-2025 End: 05-17-2025 Subsequent hospital visit by physician Nidhi [facility] (I-Stat) Work Phone: Cat Scan Comment on above: Subdural hematoma (H CC) [S06.5XAA] Start: 05-14-[address] [facility] Facility:[facility] Start: 05-14-2025 Registered Referred Ayana Garnica Start: 05-07-2025 End: 05-07-[address] Ayana Choi MD -[facility] [place] Work Phone: Start: 05-07-2025 End: 05-07-[address] Yanet Adams MD Work Phone: [facility] Start: 05-07-2025 Registered Referred Ayana Garnica Start: 05-04-2025 End: 05-04-[address] Yanet Adams MD Work Phone: [facility] Start: 05-04-2025 End: 05-04-2025 Patient encounter procedure Yolie MORGAN -[facility] [place] Work Phone: Start: 05-02-2025 [facility] Facility:[facility] Start: 05-02-2025 Registered Referred Ayana Garnica Start: 05-01-2025 End: 05-01-[address] Yanet Adams MD Work Phone: -[facility] [place] Start: 05-01-2025 End: 05-01-2025 Patient encounter procedure Yolie Woodward ACCOUNTS PAYABLE ASSISTANT-C -[facility] [place] Work Phone: Start: 04-29-2025 End: 04-30-2025 Home visit Tila Caceres CCC-UPHOLSTERY TECHNICIAN Work Phone: [facility] Comment on above: UPHOLSTERY TECHNICIAN TRANSFER Start: 04-25-2025 End: 04-25-2025 Patient Outreach Shayan Smith RN Work Phone: [employer] Comment on above: Transition Of Care ( Hospital reach in message ) Start: 04-24-2025 End: 04-24-2025 ambulatory Placido Dempsey APRN.MECHANICAL INTERN Work Phone: Critical Care Start: 04-24-2025 End: 05-01-2025 Evaluation and management of inpatient YANET ADAMS Facility:[facility] Start: 04-24-2025 End: 04-24-2025 Emergency department patient visit Dr. Yanet Adams MD Work Phone: -Emergency Department Work Phone: Start: 04-22-2025 End: 04-22-2025 Home visit Tila Caceres CCC-UPHOLSTERY TECHNICIAN Work Phone: [facility] Comment on above: UPHOLSTERY TECHNICIAN REASSESSMENT Start: 04-17-2025 End: 04-17-2025 Home visit Chalo Owens PT Work Phone: [facility] Comment on above: PT DISC DC W VISIT Start: 04-09-2025 End: 04-09-2025 Home visit Elizabeth Harry ENVIRONMENTAL ENGINEER SCIENTIST Work Phone: [facility] Comment on above: ENVIRONMENTAL ENGINEER SCIENTIST ROUTINE Start: 04-09-2025 End: 04-09-2025 Telephone encounter Tila Caceres CCC-UPHOLSTERY TECHNICIAN Work Phone: [facility] Comment on above: Home Care (Patient i nformation fall/medications) Start: 04-08-2025 End: 04-08-2025 Home visit Tila Caceres CCC-UPHOLSTERY TECHNICIAN Work Phone: [facility] Comment on above: UPHOLSTERY TECHNICIAN ROUTINE Start: 04-03-2025 End: 04-03-2025 Home visit Elizabeth Harry ENVIRONMENTAL ENGINEER SCIENTIST Work Phone: [facility] Comment on above: ENVIRONMENTAL ENGINEER SCIENTIST ROUTINE Start: 03-29-2025 End: 03-29-2025 Home visit Mike Toth PT Work Phone: [facility] Comment on above: PT EVAL Start: 03-27-2025 End: 03-27-2025 Telephone encounter Jeanine Fermin APRN.MECHANICAL INTERN Work Phone: [facility] Comment on above: Home Care (DELAY IN SERVICE) Start: 03-27-2025 End: 03-27-2025 Home visit Tila Nicki [facility]-UPHOLSTERY TECHNICIAN Work Phone: [facility] Comment on above: UPHOLSTERY TECHNICIAN ROUTINE Start: 03-24-2025 End: 03-24-2025 Telephone encounter Betty Webber [facility]-UPHOLSTERY TECHNICIAN Work Phone: [facility] Comment on above: Home Care (Speech Th erapy Home Care Admission 03/23/25, recommend adding PT EVAL) Start: 03-23-2025 End: 03-23-2025 [facility] Work Phone: [facility] Comment on above: UPHOLSTERY TECHNICIAN SOC Start: 03-22-2025 End: 03-22-2025 Telephone encounter Kristel Lopez LPN [facility] Comment on above: Home Care (CONFIRMAT ION CALL) Home Care (UPHOLSTERY TECHNICIAN SOC C onfirmation call) Start: 03-20-2025 End: 03-21-2025 Telephone encounter Jeanine Fermin APRN.MECHANICAL INTERN Work Phone: [facility] Comment on above: Home Care Patient Question; WC H Scheduling dept calling Start: 03-19-2025 End: 03-19-2025 Telephone encounter Jeanine Fermin APRN.MECHANICAL INTERN Work Phone: [facility] Start: 02-28-2025 End: 02-28-[address] Yanet Adams MD Work Phone: [facility] Work Phone: Start: 02-28-2025 End: 02-28-2025 Patient encounter procedure Jeanineseb Wahlan RECREATION 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 -Radiology [facility] Work Phone: Start: 02-28-2025 End: 02-28-2025 ambulatory Jeanine Suppan Facility:[facility] Start: 02-27-2025 End: 02-27-2025 Telephone encounter Jeanine A Suppan TEA LEAF READER.MECHANICAL INTERN Work Phone: [facility] Comment on above: Orders (for modified barium swallow test at [facility]) Start: 02-21-2025 End: 02-21-2025 Telephone encounter Jeanine A Suppan TEA LEAF READER.MECHANICAL INTERN Work Phone: [facility] Start: 02-20-2025 Registered Recurring Jeanine Supp an RECREATION 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 -Speech Therapy Work Phone: Start: 02-20-2025 ambulatory Jeanine Suppan Facil ity:[facility] Start: 02-19-2025 End: 02-19-2025 ambulatory Giselle Vinson OTR/L Work Phone: [facility] Comment on above: Dementia without beh avioral disturbance (HCC); Memory loss Start: 02-14-2025 End: 02-14-2025 Telephone encounter Yanet Adams MD Work Phone: [facility] Comment on above: Fax Request Start: 02-11-2025 End: 04-13-2025 Follow-up encounter Yanet Adams MD Work Phone: [facility] Start: 02-11-2025 End: 02-13-2025 Telephone encounter Margie BREEN Navigation Start: 02-08-2025 End: 02-08-2025 ambulatory JEANINE A SUPPAN Facility:[facility] Start: 02-08-2025 End: 04-10-2025 Follow-up encounter Jeanine A Suppan TEA LEAF READER.MECHANICAL INTERN Work Phone: [facility] [place] Start: 02-08-2025 End: 02-08-2025 ambulatory JEANINE A SUPPAN Facility:[facility] Start: 01-29-2025 End: 01-29-2025 ambulatory JEANINE A SUPPAN Facility:[facility] Start: 01-29-2025 End: 01-29-2025 Office outpatient visit 15 minutes Jeanine Fermin 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 Start: 01-08-2025 End: 01-08-2025 Patient encounter procedure Jayda Ace PA-C Work Phone: Neurology Comment on above: Dementia without beh avioral disturbance (HCC) (Primary Dx); Memory loss; Frequent falls; Balance problem; Cervical stenosis of spinal canal Start: 01-08-2025 End: 01-08-2025 ambulatory YANET ADAMS Facility:[facility] Start: 01-03-2025 End: 03-05-2025 Follow-up encounter Yanet Adams MD Work Phone: Pulmonology [facility] Start: 01-02-2025 End: 01-02-2025 ambulatory YANET ADAMS Facility:[facility] Start: 01-02-2025 End: 01-02-2025 Patient encounter procedure Yanet Adams MD Work Phone: [facility] Comment on above: Personal history of traumatic brain injury (Primary Dx); Dementia without behavioral disturbance (HCC); Cervical myelopathy (HCC); Pure hypercholesterolemia; Prediabetes; Mild cognitive impairment; History of subdural hematoma; History of subarachnoid hemorrhage; Screening for colon cancer Start: 10-15-2024 End: 10-15-2024 ambulatory Yanet Bryan Facility:[facility] Start: 10-14-2024 End: 10-15-2024 ambulatory Yanet Adams MD Work Phone: [facility] Comment on above: Patricio Leisure'harjit weigh t Start: 09-28-2024 End: 09-28-2024 Telephone encounter Yanet Adams MD Work Phone: [employer] Comment on above: [id number]- pall med; Ini tial Consult Start: 09-27-2024 End: 09-27-2024 ambulatory Yanet Adams MD Work Phone: [facility] [place] Comment on above: Patricio Douglas condi tion Start: 08-20-2024 End: 08-20-2024 Patient encounter procedure Kwadwo Srinivasan MD, PhD Work Phone: [facility] Comment on above: Cervical spondylosis with myelopathy (Primary Dx) Start: 08-20-2024 End: 08-20-2024 ambulatory KWADWO SRINIVASAN Facility:[facility] Start: 08-20-2024 End: 08-20-2024 Subsequent hospital visit by physician Xr [place] [employer] Associate [facility] Comment on above: Neck pain [M54.2] Start: 08-15-2024 End: 08-15-2024 Telephone encounter Kwadwo Srinivasan MD, PhD Work Phone: [facility] Start: 08-13-2024 End: 08-13-2024 Emergency department patient visit [facility] [place] Facility:[facility] Start: 08-07-2024 End: 08-07-2024 Patient encounter procedure Jayda Ace PA-C Work Phone: Neurology Comment on above: Subdural hematoma (H CC) (Primary Dx); Dementia without behavioral disturbance (HCC); Balance problem; Frequent falls; Cervical stenosis of spinal canal; History of traumatic brain injury; Memory loss Start: 08-07-2024 End: 08-07-2024 ambulatory JAYDA ACE Facility:[facility] Start: 07-31-2024 End: 07-31-2024 ambulatory YANET ADAMS Facility:[facility] Start: 07-31-2024 End: 07-31-2024 Patient encounter procedure Neeraj Jacobs PA-C Work Phone: Urology Comment on above: BPH with obstruction /lower urinary tract symptoms (Primary Dx) Start: 07-27-2024 End: 07-27-2024 ambulatory YANET ADAMS Facility:[facility] Start: 07-18-2024 End: 07-18-2024 ambulatory Neeraj Jacobs PA-C Work Phone: Urology Comment on above: PSA Start: 07-18-2024 End: 07-18-2024 E-mail encounter from caregiver Neeraj Jacobs PA-C Work Phone: Urology Start: 07-13-2024 End: 07-13-2024 Telephone encounter Kwadwo Srinivasan MD, PhD Work Phone: [facility] Comment on above: Manager Outreach - O ther Start: 07-09-2024 End: 07-10-2024 ambulatory Kwadwo Srinivasan MD, PhD Work Phone: [facility] Start: 07-09-2024 End: 07-10-2024 Patient encounter procedure Kwadwo Srinivasan MD, PhD Work Phone: [facility] Comment on above: Patricio [place] Start: 07-04-2024 End: 07-04-2024 ambulatory YANET ADAMS Facility:[facility] Start: 07-02-2024 End: 07-02-2024 ambulatory [facility] Facility:[facility] Start: 07-02-2024 End: 07-02-2024 Patient encounter procedure Yanet Adams MD Work Phone: [facility] [place] Comment on above: Personal history of traumatic brain injury (Primary Dx); Ataxia, unspecified; Cervical myelopathy (HCC); History of subarachnoid hemorrhage; History of subdural hematoma; Mild cognitive impairment; Prediabetes; Screening for depression; Encounter for screening examination for other mental health and behavioral disorders Start: 06-25-2024 End: 06-25-2024 ambulatory Jayda Ace PA-C Work Phone: Neurology Comment on above: [place] driving test Start: 06-20-2024 End: 06-20-2024 E-mail encounter from caregiver Connie Pepe OTR/L Work Phone: [facility] Start: 06-20-2024 End: 06-20-2024 ambulatory Connie Pepe OTR/L Work Phone: [facility] Comment on above: Brain health resourc es Dementia without beh avioral disturbance (HCC) (Primary Dx) Start: 05-09-2024 Refill Fidelina Rosas APRN.CNP Work Phone: [facility] [facility] Comment on above: Refill Request Start: 04-24-2024 End: 04-24-2024 Patient encounter procedure Jayda Ace PA-C Work Phone: Neurology Comment on above: Subdural hematoma (H CC) (Primary Dx); Dementia without behavioral disturbance (HCC); Frequent falls; Balance problem; Cervical stenosis of spinal canal Start: 04-23-2024 ambulatory Jayda espinoza PA-C Work Phone: Neurology Comment on above: Patricio's driving Start: 12-30-2023 End: 12-30-2023 Patient encounter procedure Yanet [place] MD Work Phone: [facility] Comment on above: History of subdural hematoma (Primary Dx); History of subarachnoid hemorrhage; Personal history of traumatic brain injury; Subarachnoid hemorrhage (HCC); Ataxia, unspecified; Pure hypercholesterolemia; Mild cognitive impairment; Benign non-nodular prostatic hyperplasia with lower urinary tract symptoms; Cervical myelopathy (HCC); Prediabetes; SAH (subarachnoid hemorrhage) (HCC); Screening for colon cancer Start: 12-13-2023 ambulatory Jayda espinoza PA-C Work Phone: Neurology [...] PA-C Work Phone: Neurology Comment on above: Patricio's answers to pr e-check in questions Start: 11-21-2023 End: 11-21-2023 Patient encounter procedure Kwadwo Srinivasan MD, PhD Work Phone: [facility] Comment on above: Subarachnoid hemorrh age (HCC); Subdural hematoma (HCC) Start: 11-21-2023 End: 11-21-2023 Subsequent hospital visit by physician 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 Comment on above: Subarachnoid hemorrh age (HCC) [I60.9] Start: 11-16-2023 End: 11-16-2023 ambulatory [facility] Work Phone: Start: 11-16-2023 End: 11-16-2023 Discharged Recurring [facility]-Physical Therapy Work Phone: Start: 09-22-2023 Telephone encounter Kwadwo espinal MD, PhD Work Phone: [facility] Comment on above: Patient Question Start: 09-22-2023 End: 09-22-2023 Patient encounter procedure Melissa Rivero MD Work Phone: NEUROLOGY Comment on above: Chronic subdural hem atoma (HCC) (Primary Dx); Subdural hematoma (HCC) Start: 09-20-2023 Telephone encounter Kwadwo espinal MD, PhD Work Phone: [facility] Comment on above: Patient Question Start: 09-19-2023 Telephone encounter Kwadwo espinal MD, PhD Work Phone: [facility] Comment on above: Patient Update Start: 08-27-2023 ambulatory Luis lopez RN Work Phone: [facility] Start: 08-27-2023 Follow-up encounter Luis andres RN Work Phone: [employer] Comment on above: Transition Of Care ( TCM follow up [facility] Discharge 08/12/23) Start: 08-24-2023 End: 08-24-2023 Patient encounter procedure Jayda Ace PA-C Work Phone: Neurology Comment on above: History of traumatic brain injury (Primary Dx); Memory loss; Balance problem; SAH (subarachnoid hemorrhage) (HCC); Frequent falls Start: 08-20-2023 ambulatory oJsué Rausch RN INDP Mary Grace SILVA Start: 08-20-2023 Follow-up encounter 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 playroom attendantFurnace Liner Management Comment on above: Transition Of Care ( TCM Follow Up/) Start: 08-15-2023 Patient Outreach Luis lara RN Work Phone: [employer] Comment on above: Transition Of Care ( TCM Initial [facility] Discharge 08/12/23/) Start: 08-12-2023 Orders Only Melanie nunn PA-C Work Phone: [facility] Comment on above: Spinal stenosis of c ervical region (Primary Dx); SAH (subarachnoid hemorrhage) (HCC) Start: 08-11-2023 End: 08-11-2023 Emergency department patient visit [facility]Emergency Department Work Phone: Start: 08-09-2023 End: 08-09-2023 ambulatory [facility] Work Phone: Start: 08-09-2023 End: 08-09-2023 Discharged Recurring [facility]Physical Therapy Work Phone: Start: 07-26-2023 End: 07-26-2023 Patient encounter procedure Neeraj Jacobs PA-C Work Phone: Urology Comment on above: BPH with obstruction /lower urinary tract symptoms (Primary Dx); Renal lesion; Urinary retention Start: 07-12-2023 Telephone encounter Yanet [place] MD Work Phone: [facility] Comment on above: Results Start: 07-01-2023 End: 07-01-2023 Patient encounter procedure Yanet [place] MD Work Phone: [facility] Comment on above: Mild cognitive impai rment (Primary Dx); Rosacea, acne; DDD (degenerative disc disease), lumbar; Spinal stenosis of lumbar region, unspecified whether neurogenic claudication present; Closed head injury, sequela; Pure hypercholesterolemia; Prediabetes Start: 05-25-2023 End: 05-25-2023 Patient encounter procedure Anika Hernandez PA-C Work Phone: [facility] [place] Comment on above: Spinal stenosis of l umbar region, unspecified whether neurogenic claudication present; Weakness of both lower extremities Start: 05-21-2023 Refill Jayda espinoza PA-C Work Phone: Neurology Comment on above: Refill Request Start: 04-22-2023 End: 04-22-2023 Subsequent hospital visit by physician [facility] Work Phone: Radiology Comment on above: Renal lesion [N28.9] Start: 04-21-2023 Telephone encounter Ashley Singh APRN.CNP Work Phone: Neurology Comment on above: Results Start: 04-20-2023 Telephone encounter Fidelina morales APRN.MECHANICAL INTERN Work Phone: [facility] Comment on above: Orders Start: 04-20-2023 End: 04-20-2023 Office outpatient visit 25 minutes Fidelina Rosas APRN.SAMARIA Work Phone: [facility] Comment on above: Renal lesion (Primar y Dx); Flank pain; DDD (degenerative disc disease), lumbar; Spinal stenosis of lumbar region, unspecified whether neurogenic claudication present; Weakness of right lower extremity; Weakness of both lower extremities; Ataxia Start: 04-13-2023 Orders Only Ashley schafer APRN.SAMARIA Work Phone: Neurology Comment on above: Spinal stenosis of l umbar region, unspecified whether neurogenic claudication present (Primary Dx); Weakness of both lower extremities Results Start: 04-12-2023 End: 04-12-2023 Subsequent hospital visit by physician Itz Carlson (Lg Br/Open/1.5t) Work Phone: Radiology Comment on above: Spinal stenosis of l umbar region, unspecified whether neurogenic claudication present [M48.061] Start: 04-06-2023 Telephone encounter Ashley Singh APRN.MECHANICAL INTERN Work Phone: [facility] Comment on above: Patient Update; Grace ent Question Start: 03-18-2023 Telephone encounter Fidelina morales APRN.MECHANICAL INTERN Work Phone: [facility] Comment on above: Results (/) Start: 03-11-2023 End: 03-11-2023 Subsequent hospital visit by physician Ct [facility] (I-Stat) Work Phone: Cat Scan Comment on above: Lung nodules [R91.8] Start: 03-01-2023 End: 03-01-2023 Subsequent hospital visit by physician Xr [facility] [place] Work Phone: Radiology Comment on above: Weight loss [R63.4] Start: 03-01-2023 End: 03-01-2023 Office outpatient visit 25 minutes Fidelina Rosas APRN.MECHANICAL INTERN Work Phone: [facility] Comment on above: Weight loss (Primary Dx); Rosacea, acne; Pure hypercholesterolemia; Weakness of both lower extremities; Dementia without behavioral disturbance (HCC) Start: 01-18-2023 Refill Yanet [place] MD Work Phone: [facility] Comment on above: Refill Request [...] Subsequent hospital visit by physician Frank [facility] Work Phone: Radiology Comment on above: Finger pain, right [ M79.644] Start: 11-02-2022 End: 11-02-2022 Patient encounter procedure Becca Titus APRN.MECHANICAL INTERN Work Phone: [facility] Comment on above: Finger pain, right ( Primary Dx); Finger injury, right, initial encounter Start: 10-15-2022 Refill Yanet [place] MD Work Phone: [facility] Comment on above: Refill Request Start: 09-24-2022 Refill Ashley schafer APRN.MECHANICAL INTERN Work Phone: Neurology Comment on above: Refill Request Start: 08-19-2022 End: 08-19-2022 ambulatory [facility] Work Phone: Start: 08-19-2022 End: 08-19-2022 Discharged Recurring [facility] Therapy Start: 07-20-2022 End: 07-20-2022 Patient encounter procedure Neeraj Jacobs PA-C Work Phone: Urology Comment on above: BPH with obstruction /lower urinary tract symptoms (Primary Dx); S/P TURP Start: 06-24-2022 End: 06-24-2022 Patient encounter procedure Yanet [place] MD Work Phone: [facility] Comment on above: DDD (degenerative di sc disease), lumbar (Primary Dx); Mild cognitive impairment; Benign non-nodular prostatic hyperplasia with lower urinary tract symptoms Start: 06-22-2022 End: 06-22-2022 Subsequent hospital visit by physician Xr [facility] Work Phone: Radiology Comment on above: History of traumatic brain injury [Z87.820] Start: 06-17-2022 End: 06-17-2022 Patient encounter procedure Ashley Ewing APRN.MECHANICAL INTERN Work Phone: Neurology Comment on above: Memory loss (Primary Dx); History of traumatic brain injury; Balance problem Start: 06-17-2022 Telephone encounter Ashley Singh APRN.CNP Work Phone: Neurology Comment on above: requesting medicatio n Start: 06-10-2022 End: 06-10-2022 [facility] Work Phone: Start: 06-10-2022 End: 06-10-2022 Discharged Recurring [facility] Start: 05-17-2022 Telephone encounter Yanet [place] MD Work Phone: [facility] Comment on above: Results Start: 02-08-2022 Telephone encounter Isabella Dasilva APRN.MECHANICAL INTERN Work Phone: [facility] Comment on above: Results Start: 02-08-2022 End: 02-08-2022 Subsequent hospital visit by physician Xr [facility] Work Phone: Radiology Comment on above: Left wrist pain [M25 .532] Start: 02-07-2022 End: 02-07-2022 Patient encounter procedure Isabella Dasilva APRN.MECHANICAL INTERN Work Phone: [facility] Comment on above: Left wrist pain (Isabela steve Dx) Start: 05-04-2021 End: 05-04-2021 Subsequent hospital visit by physician Frank [facility] Work Phone: Radiology Comment on above: Hand injuries, right , initial encounter [S69.91XA] Procedures Date Procedure Procedure Detail Performing Clinician Start: 05-17-2025 Ct head/brain w/o co ntrast material Melanie Chung PA-C Work Phone: Start: 05-02-2025 Vitamin D, 25-hydrox y measurement Dr. Yanet [place] MD Work Phone: Comment on above: Vitamin D StatusDefi ciency: <20 ng/mL (50nmol/L)Insufficiency: 20-30 ng/mL (50-75 nmol/L)Sufficiency: 30-100 ng/mL (75-250 nmol/L)Toxicity: >100 ng/mL (>250 nmol/L) Start: 04-24-2025 Antibody screen [facility] Comment on above: Order Comment: Speci men Type: BLOOD SPECIMEN Ordering Facility: [facility] Address: [address] [place], [place] [address] [address] Performed By: #### T SCR #### [facility] CLIA [id number] 1 [place] [address] [place] Start: 04-24-[address] Yanet [place] MD Work Phone: Start: 04-24-2025 CT cervical spine wi thout contrast Dr. Yanet [place] MD Work Phone: Start: 04-24-2025 CT of head without contrast Dr. Yanet [place] MD Work Phone: Start: 02-28-[address] Comfort [place] MD Work Phone: Start: 02-08-2025 Lipid 1995 panel - S aisha or Plasma Margie Granado CASINO ACCOUNTANT Start: 07-31-2024 Urnls dip stick/tabl et rgnt auto w/o microscopy Neeraj HUNTC Work Phone: Start: 07-04-2024 Lipid 1996 panel - S aisha or Plasma Mri Br/Open/1.5t) Work Phone: Start: 07-02-2024 Adult depression scr eening assessment Yanet [place] MD Work Phone: Start: 11-21-2023 Ct head/brain w/o co ntrast material Kwadwo Srinivasan MD, PhD Work Phone: Start: 08-11-2023 Plain chest X-ray Start: 08-11-2023 CT cervical spine wi thout contrast Start: 08-11-2023 CT of head without contrast Start: 07-26-2023 Urnls dip stick/tabl et rgnt auto w/o microscopy Neeraj Jacobs PA-C Work Phone: Start: 07-05-2023 Lipid 1996 panel - S aisha or Plasma Yanet [place] MD Work Phone: Start: 04-22-2023 Us retroperitoneal r eal time w/image complete Fidelina Rosas TEA LEAF READER.MECHANICAL INTERN Work Phone: Start: 04-20-2023 Urnls dip stick/tabl et rgnt auto w/o microscopy Fidelina Rosas TEA LEAF READER.MECHANICAL INTERN Work Phone: Start: 04-12-2023 Mri spinal canal lum bar w/o contrast material Ashley Ewing TEA LEAF READER.MECHANICAL INTERN Work Phone: Start: 03-11-2023 Ct thorax w/o contra st material Fidelina Rosas TEA LEAF READER.MECHANICAL INTERN Work Phone: Start: 03-01-2023 Radiologic exam ches t 2 views Fidelina Rosas TEA LEAF READER.MECHANICAL INTERN Work Phone: Start: 11-02-2022 Radex fingr minimum 2 views Becca Titus TEA LEAF READER.MECHANICAL INTERN Work Phone: Start: 07-20-2022 Urnls dip stick/tabl et rgnt auto w/o microscopy Neeraj Jacobs PA-C Work Phone: Start: 06-22-2022 Radex spine lumbosac ral 2/3 views Ashley Ewing TEA LEAF READER.MECHANICAL INTERN Work Phone: Start: 05-03-2022 Lipid 1996 panel - S aisha or Plasma Yanet [place] MD Work Phone: Start: 04-29-2022 Adult depression scr eening assessment Yanet [place] MD Work Phone: Start: 02-08-2022 Radex wrist complete minimum 3 views Isabella Dasilva TEA LEAF READER.MECHANICAL INTERN Work Phone: Start: 10-20-2021 History of transuret hral prostatectomy S/P TURP Isabella Dasilva TEA LEAF READER.MECHANICAL INTERN Work Phone: Start: 05-04-2021 Radex hand minimum 3 views Deepak Reyna TEA LEAF READER.MECHANICAL INTERN Work Phone: Start: 04-10-2021 Adult depression scr eening assessment Isabella Dasilva TEA LEAF READER.MECHANICAL INTERN Work Phone: History of transuret hral prostatectomy S/P TURP Neeraj Jacobs PA-C Work Phone: Plan of Treatment Date Care Activity Detail Author Start: 04-24-2035 Urine microalbumin profile DTaP,Tdap,Td Vaccine (4 - Td or Tdap) [facility] Start: 09-05-2030 Urine microalbumin profile [facility] Start: 02-08-2030 Lipid panel Lipid Screening [facility] Start: 07-04-2029 Lipid panel Lipid Screening [facility] Start: 2029 RSV Vaccine (1 - 1-dose 75+ series) RSV Vaccine (1 - 1-dose 75+ series) [facility] Start: 07-05-2028 Lipid 1996 panel - Serum or Plasma Lipid Screening [facility] Start: 07-05-2028 Lipid panel Lipid Screening [facility] Start: 05-01-2028 Diabetes Screening Diabetes Screening [facility] Start: 04-30-2028 Diabetes Screening Diabetes Screening [facility] Start: 04-25-2028 Diabetes Screening Diabetes Screening [facility] Start: 04-24-2028 Diabetes Screening Diabetes Screening [facility] Start: 03-01-2028 PROSTATE CANCER SCREENING DISCUSSION PROSTATE CANCER SCREENING DISCUSSION [facility] Start: 02-09-2028 Diabetes Screening Diabetes Screening [facility] Start: 01-03-2028 Diabetes Screening Diabetes Screening [facility] Start: 07-04-2027 Diabetes Screening Diabetes Screening [facility] Start: 05-03-2027 Lipid 1996 panel - Serum or Plasma Lipid Screening [facility] Start: 05-03-2027 LIPID SCREEN LIPID SCREEN [facility] Start: 09-19-2026 Diabetes Screening Diabetes Screening [facility] Start: 08-12-2026 Diabetes Screening Diabetes Screening [facility] Start: 07-05-2026 Diabetes Screening Diabetes Screening [facility] Start: 03-30-2026 PROSTATE CANCER SCREENING DISCUSSION PROSTATE CANCER SCREENING DISCUSSION [facility] Start: 03-01-2026 DIABETES SCREEN DIABETES SCREEN [facility] Start: 03-01-2026 Diabetes Screening Diabetes Screening [facility] Start: 08-30-2025 End: 08-30-2025 Patient encounter procedure 08/30/2025 2:20 PM EST Office Visit Neurology [address] [place] [id number] Yanet Pinto Jr., MD [address] [place] [address] MQ pt, Dementia & increased sleep time Neurology Comment on above: MQ pt, Dementia & increased sleep time Start: 08-06-2025 End: 08-06-2025 Patient encounter procedure 08/06/2025 1:00 PM EDT Office Visit Urology [address] [place] [address] Neeraj Jacobs PA-C [address] [place] [address] 1 YR F/U Urology Comment on above: 1 YR F/U Start: 07-31-2025 End: 10-30-2025 Prostate specific Ag [Mass/volume] in Serum or Plasma PROSTATE-SPECIFIC ANTIGEN DIAGNOSTIC Lab Routine BPH with obstruction/lower urinary tract symptoms Expected: 07/31/2025 (Approximate), Expires: 10/30/2025 [facility] Comment on above: Expected: 07/31/2025 (Approximate), Expi res: 10/30/2025 Start: 07-29-2025 End: 07-29-2025 Patient encounter procedure 07/29/2025 11:20 AM EDT Office Visit [facility] [address] [place], [place] [phone] Fidelina Rosas APRN.MECHANICAL INTERN [address] [place], [place] [phone] 8 week follow up per [address] [facility] Comment on above: [address] up [address] [place] Start: 07-22-2025 End: 07-22-2025 Patient encounter procedure 07/22/2025 1:00 PM EDT Office Visit Family [facility] [address] [place], [place] [phone] Yanet [place] MD [address] [place], [place] [id number] 6 mo/physical [facility] Comment on above: 6 mo/physical Start: 07-02-2025 Anxiety Screening Anxiety Screening [facility] Start: 07-02-2025 Covid-19 Vaccine () Covid-19 Vaccine () [facility] Comment on above: Postponed from 06/17/2024 (Declined at t his time) Start: 07-02-2025 Covid-19 Vaccine () Covid-19 Vaccine () [facility] Comment on above: Postponed from 06/17/2024 (Declined at t his time) Start: 07-02-2025 Depression Screening Depression Screening [facility] Start: 07-02-2025 Shingrix Vaccine (1 of 2) Shingrix Vaccine (1 of 2) [facility] Comment on above: Postponed from 2004 (Declined at t his time) Start: 06-17-2025 Influenza vaccination [facility] Start: 06-07-2025 End: 06-07-2025 Patient encounter procedure 06/07/2025 10:45 AM EDT Appointment Radiology [address] [place] [address] Mass of left upper extremity [R22.32] - will need assistance to get on table from wheelchair Radiology Comment on above: Mass of left upper extremity [R22.32] - will need assistance to get on table from wheelchair Start: 05-28-2025 End: 08-26-2025 CBC W Auto Differential panel - Blood COMPLETE BLOOD COUNT AND DIFFERENTIAL Lab Routine Leukocytosis, unspecified type Anorexia Expected: 05/28/2025, Expires: 08/26/2025 [facility] Comment on above: Expected: 05/28/2025, Expires: Start: 05-28-2025 End: 08-26-2025 Comprehensive metabolic 2000 panel - Serum or Plasma COMPREHENSIVE METABOLIC PANEL Lab Routine Anorexia Expected: 05/28/2025, Expires: 08/26/2025 [facility] Comment on above: Expected: 05/28/2025, Expires: Start: 05-28-2025 End: 08-26-2025 Prealbumin [Mass/volume] in Serum or Plasma PREALBUMIN Lab Routine Anorexia Expected: 05/28/2025, Expires: 08/26/2025 [facility] Comment on above: Expected: 05/28/2025, Expires: Start: 05-28-2025 End: 08-26-2025 Thyrotropin [Units/volume] in Serum or Plasma THYROID STIMULATING HORMONE Lab Routine Heat intolerance Expected: 05/28/2025, Expires: 08/26/2025 [facility] Comment on above: Expected: 05/28/2025, Expires: Start: 05-22-2025 End: 05-22-2025 Patient encounter procedure [facility] Comment on above: 2-4 week SDH f/u, CT done 05/[address] B - 05/17 Start: 05-17-2025 End: 05-17-2025 Patient encounter procedure 05/17/2025 11:40 AM EDT Appointment Cat Scan [address] [place], [place] [phone] Subdural hematoma (HCC) [S06.5XAA] Cat Scan Comment on above: Subdural hematoma (HCC) [S06.5XAA] Start: 05-06-2025 End: 05-06-2025 Patient encounter procedure Neurology Comment on above: sleep, memory MQ pt MQ pt, Dementia & in creased sleep time Start: 05-03-2025 DIABETES SCREEN DIABETES SCREEN [facility] Start: 04-24-2025 Simple repair scalp/neck/ax/genit/t runk 2.5cm/< RPR S/N/AX/GEN/TRNK 2.5CM/< [facility] Start: 04-15-2025 Influenza vaccination Influenza Vaccine (#1) [facility] Comment on above: Postponed from 06/17/2024 (Declined at t his time) Start: 02-19-2025 End: 02-19-2025 ambulatory 02/19/2025 12:45 PM EDT OT/PT/Speech Visit [facility] [address] [place] [address] Giselle Vinson, OTR/L [address] [place], [place] [phone] driving eval [facility] Comment on above: driving eval Start: 02-08-2025 End: 02-08-2025 Patient encounter procedure 02/08/2025 2:00 PM EDT Office Visit Family [facility] Georg[facility] [address] [place], [place] [phone] Jeanine Fermin APRN.MECHANICAL INTERN [address] [place], [place] [phone] 10-14 day follow up. [facility] Comment on above: 10-14 day follow up. Cough Start: 01-29-2025 End: 01-29-2025 Patient encounter procedure 01/29/2025 10:40 AM EDT Office Visit [facility] [place] [address] [facility] [place] [address] Jeanine Fermin APRN.MECHANICAL INTERN [address] [facility] [place] [phone] cough [facility] [place] Comment on above: cough Start: 01-17-2025 Screening for malignant neoplasm of colon [facility] Start: 01-08-2025 End: 01-08-2025 Patient encounter procedure Neurology Comment on above: Six month follow up Six month follow up, dementia, memory loss Start: 01-02-2025 End: 04-03-2025 Hemoglobin A1c in Blood [facility] Comment on above: Expected: 01/02/2025, Expires: Start: 01-02-2025 End: 01-02-2025 Patient encounter procedure 01/02/2025 10:40 AM EDT Office Visit [facility] [place] [address] [facility] [place] [place] [address] Yanet [place] MD [address] [facility], [place] [phone] 6 month follow up [facility] [place] Comment on above: 6 month follow up Start: 12-29-2024 Covid-19 Vaccine ( season) Covid-19 Vaccine ( season) [facility] Comment on above: Postponed from 06/17/2023 (Declined at t his time) Start: 12-29-2024 RSV Vaccine (1 - 1-dose 60+ series) RSV Vaccine (1 - 1-dose 60+ series) [facility] Comment on above: Postponed from 2014 (Declined at t his time) Start: 12-29-2024 RSV Vaccine (1 - Risk 60-74 years 1-dose series) RSV Vaccine (1 - Risk 60-74 years 1-dose series) [facility] Comment on above: Postponed from 2014 (Declined at t his time) Start: 10-17-2024 Medicare Advantage Annual Wellness Visit Medicare Advantage Annual Wellness Visit [facility] Start: 08-20-2024 End: 08-20-2024 Patient encounter procedure [facility] [facility] 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 Comment on above: Cervical xrays cervical Start: 08-19-2024 DIABETES SCREEN DIABETES SCREEN [facility] Start: 08-07-2024 End: 08-07-2024 Patient encounter procedure 08/07/2024 11:30 AM EDT Office Visit Neurology [address] [place] [address] Jayda Ace PA-C [address] [place] [address] Three month follow up memory Neurology Comment on above: Three month follow up memory Start: 07-31-2024 End: 07-31-2024 Patient encounter procedure 07/31/2024 1:00 PM EDT Office Visit Urology [address] [place] [address] Neeraj Jacobs PA-C [address] [place], [place] [id number] 1 YR F/U Urology Comment on above: 1 YR F/U Start: 07-27-2024 End: 07-27-2024 ambulatory 07/27/2024 11:30 AM EDT Results Only [facility] [address] [place] [place] [address] [facility] Start: 07-26-2024 End: 09-25-2024 Prostate specific Ag [Mass/volume] in Serum or Plasma PSA/PROSTSPECAG DIAG Lab Routine BPH with obstruction/lower urinary tract symptoms Expected: 07/26/2024 (Approximate), Expires: 09/25/2024 [facility] Work Phone: Comment on above: Expected: 07/26/2024 (Approximate), Expi res: 09/25/2024 Start: 07-02-2024 End: 07-02-2024 Patient encounter procedure 07/02/2024 11:20 AM EDT Office Visit [facility] [address] [place] [address] Yanet Adams MD [address] [place], [place] [address] 6 month follow up. Fasting labs prior [facility] [place] Comment on above: 6 month follow up. Fasting labs prior Start: 07-01-2024 End: 09-30-2024 CBC W Auto Differential panel - Blood CBC + DIFF Lab Routine Pure hypercholesterolemia Expected: 07/01/2024, Expires: 09/30/2024 [facility] Work Phone: Comment on above: Expected: 07/01/2024, Expires: 4 Start: 07-01-2024 End: 09-30-2024 Comprehensive metabolic 2000 panel - Serum or Plasma COMP METABOLIC PANEL Lab Routine Prediabetes Expected: 07/01/2024, Expires: 09/30/2024 [facility] Work Phone: Comment on above: Expected: 07/01/2024, Expires: 4 Start: 07-01-2024 End: 09-30-2024 Hemoglobin A1c in Blood HGB A1C Lab Routine Prediabetes Expected: 07/01/2024, Expires: 09/30/2024 [facility] Work Phone: Comment on above: Expected: 07/01/2024, Expires: 4 Start: 07-01-2024 End: 09-30-2024 Lipid 1996 panel - Serum or Plasma LIPID PANEL BASIC Lab Routine Pure hypercholesterolemia Expected: 07/01/2024, Expires: 09/30/2024 [facility] Work Phone: Comment on above: Expected: 07/01/2024, Expires: 4 Start: 07-01-2024 Shingrix Vaccine (1 of 2) Shingrix Vaccine (1 of 2) [facility] Comment on above: Postponed from 2004 (Declined at t his time) Start: 06-20-2024 End: 06-20-2024 ambulatory 06/20/2024 12:45 PM EDT OT/PT/Speech Visit [facility] [address] [place] [address] GeConnie burrell, OTR/L [address] [address] [address] Driving evaluation [facility] Comment on above: Driving evaluation Start: 06-17-2024 Covid-19 Vaccine () Covid-19 Vaccine () [facility] Start: 06-17-2024 Influenza vaccination Influenza Vaccine (#1) [facility] Start: 04-15-2024 Influenza vaccination Influenza Vaccine (#1) [facility] Comment on above: Postponed from 06/17/2023 (Declined at t his time) Start: 03-02-2024 COLORECTAL CANCER SCREENING COLORECTAL CANCER SCREENING [facility] Start: 03-02-2024 FECAL OCCULT BLOOD FECAL OCCULT BLOOD [facility] Start: 03-02-2024 Screening for malignant neoplasm of colon [facility] Start: 12-23-2023 COVID-19 VACCINE (#1) COVID-19 VACCINE (#1) [facility] Comment on above: Postponed from 1955 (Declined at t his time) Start: 10-25-2023 LIPID SCREEN LIPID SCREEN [facility] Start: 10-17-2023 Advance Directive Discussion Advance Directive Discussion [facility] Start: 10-17-2023 Depression Assessment Depression Assessment [facility] Start: 08-11-2023 [facility] Start: 07-20-2023 End: 09-19-2023 Prostate specific Ag [Mass/volume] in Serum or Plasma PSA/PROSTSPECAG DIAG Lab Routine S/P TURP Expected: 07/20/2023 (Approximate), Expires: 09/19/2023 [facility] Work Phone: Comment on above: Expected: 07/20/2023 (Approximate), Expi res: 09/19/2023 Start: 07-01-2023 End: 08-31-2023 Hemoglobin A1c in Blood HGB A1C Lab Routine Prediabetes Expected: 07/01/2023, Expires: 08/31/2023 [facility] Work Phone: Comment on above: Expected: 07/01/2023, Expires: 3 Start: 06-17-2023 Influenza vaccination [facility] Start: 04-30-2023 COLORECTAL CANCER SCREENING COLORECTAL CANCER SCREENING [facility] Start: 04-30-2023 FECAL OCCULT BLOOD FECAL OCCULT BLOOD [facility] Start: 04-29-2023 Adult depression screening assessment DEPRESSION SCREENING [facility] Start: 04-06-2023 End: 06-06-2023 Creatine kinase [Enzymatic activity/volume] in Serum or Plasma CK CREATINE KINASE Lab Routine Weakness of right lower extremity Expected: 04/06/2023, Expires: 06/06/2023 [facility] Work Phone: Comment on above: Expected: 04/06/2023, Expires: 3 Start: 03-01-2023 End: 05-01-2023 25-hydroxyvitamin D3 [Mass/volume] in Serum or Plasma [facility] Work Phone: Comment on above: Expected: 03/01/2023, Expires: 3 Start: 03-01-2023 End: 05-01-2023 Bacteria identified in Urine by Culture [facility] Work Phone: Comment on above: Expected: 03/01/2023, Expires: 3 Start: 03-01-2023 End: 03-01-2024 C reactive protein [Mass/volume] in Serum or Plasma [facility] Work Phone: Comment on above: Expected: 03/01/2023, Expires: 4 Start: 03-01-2023 End: 03-01-2024 Comprehensive metabolic 2000 panel - Serum or Plasma [facility] Work Phone: Comment on above: Expected: 03/01/2023, Expires: 4 Start: 03-01-2023 End: 03-01-2024 Hemoglobin A1c in Blood [facility] Work Phone: Comment on above: Expected: 03/01/2023, Expires: 4 Start: 03-01-2023 End: 03-01-2024 Hemoglobin.gastrointe stinal.lower [Presence] in Stool by Immunoassay FECAL OCCULT BLOOD TEST Lab Routine Weight loss Expected: 03/01/2023, Expires: 03/01/2024 [facility] Work Phone: Comment on above: Expected: 03/01/2023, Expires: 4 Start: 03-01-2023 End: 05-01-2023 PSA/PROSTSPECAG SCRN [facility] Work Phone: Comment on above: Expected: 03/01/2023, Expires: 3 Start: 03-01-2023 End: 03-01-2024 Thyrotropin [Units/volume] in Serum or Plasma [facility] Work Phone: Comment on above: Expected: 03/01/2023, Expires: 4 Start: 03-01-2023 End: 05-01-2023 Thyroxine (T4) free [Mass/volume] in Serum or Plasma [facility] Work Phone: Comment on above: Expected: 03/01/2023, Expires: 3 Start: 10-17-2022 ADVANCE DIRECTIVE DISCUSSION ADVANCE DIRECTIVE DISCUSSION [facility] Start: 10-17-2022 DEPRESSION ASSESSMENT DEPRESSION ASSESSMENT [facility] Start: 06-17-2022 Influenza vaccination [facility] Start: 04-10-2022 Adult depression screening assessment DEPRESSION SCREENING [facility] Start: 02-08-2022 End: 03-09-2023 XR WRIST INJURY 4V PA/LAT/OBL/SCAPH LEFT XR WRIST INJURY 4V PA/LAT/OBL/SCAPH LEFT Radiology STAT Left wrist pain Expected: 02/08/2022, Expires: 03/09/2023 [facility] Work Phone: Comment on above: Expected: 02/08/2022, Expires: 3 Start: 10-17-2021 ADVANCE DIRECTIVE DISCUSSION ADVANCE DIRECTIVE DISCUSSION [facility] Start: 10-17-2021 DEPRESSION ASSESSMENT DEPRESSION ASSESSMENT [facility] Start: 10-26-2019 COLORECTAL CANCER SCREENING COLORECTAL CANCER SCREENING [facility] Start: 10-26-2019 FECAL OCCULT BLOOD FECAL OCCULT BLOOD [facility] Start: 2019 BONE DENSITY BONE DENSITY [facility] Start: 2019 PNEUMOVAX AGE 65 AND OVER WITH 5YR LOOKBACK (#1) PNEUMOVAX AGE 65 AND OVER WITH 5YR LOOKBACK (#1) [facility] Start: 2014 RSV Vaccine (1 - 1-dose 60+ series) RSV Vaccine (1 - 1-dose 60+ series) [facility] Start: 2014 RSV Vaccine (1 - Risk 60-74 years 1-dose series) RSV Vaccine (1 - Risk 60-74 years 1-dose series) [facility] Start: 2004 SHINGRIX VACCINE (1 of 2) SHINGRIX VACCINE (1 of 2) [facility] Start: 1999 COLOGUARD (FIT-DNA) COLOGUARD (FIT-DNA) [facility] Start: 1999 Colonoscopy COLONOSCOPY [facility] Start: [address] COLONOGRAPHY [facility] Start: 1999 Screening for malignant neoplasm of colon [facility] Start: 1999 SIGMOIDOSCOPY SIGMOIDOSCOPY [facility] Start: 1994 Mammography MAMMOGRAM [facility] Start: 1972 Anxiety Screening Anxiety Screening [facility] Start: 1972 Depression Screening Depression Screening [facility] Start: 1972 HEPATITIS C SCREENING HEPATITIS C SCREENING [facility] Start: 1959 COVID-19 VACCINE (1) COVID-19 VACCINE (1) [facility] Start: 1954 COVID-19 VACCINE (#1) COVID-19 VACCINE (#1) [facility] Start: 1954 ABDOMINAL AORTIC ANEURYSM SCREENING ABDOMINAL AORTIC ANEURYSM SCREENING [facility] End: 09-10-2024 CT BRAIN WO IVCON CT BRAIN WO IVCON Radiology Routine SAH (subarachnoid hemorrhage) (HCC) 1 Occurrences starting 08/12/2023 until 09/10/2024 [facility] Work Phone: Comment on above: 1 Occurrences starting 08/12/2023 until 09/10/2024 End: 04-06-2024 EMG(NEURO/NI) EMG(NEURO/NI) EMG Routine Balance problem Weakness of right lower extremity DDD (degenerative disc disease), lumbar 1 Occurrences starting 04/06/2023 until 04/06/2024 [facility] Work Phone: Comment on above: 1 Occurrences starting 04/06/2023 until 04/06/2024 Hemoglobin.gastroint e stinal.lower [Presence] in Stool by Immunoassay FECAL OCCULT BLOOD TEST Lab Routine Screening for colon cancer Ordered: 12/30/2023 [facility] Work Phone: Comment on above: Ordered: 12/30/2023 Hemoglobin.gastroint e stinal.lower [Presence] in Stool by Immunoassay IMMUNOCHEMICAL FECAL OCCULT BLOOD TEST Lab Routine Screening for colon cancer Ordered: 01/02/2025 [facility] Work Phone: Comment on above: Ordered: 01/02/2025 IR NEURO EMBOLIZATIO N CONSULT IR NEURO EMBOLIZATION CONSULT Radiology Routine Chronic subdural hematoma (HCC) Ordered: 09/22/2023 [facility] Work Phone: Comment on above: Ordered: 09/22/2023 End: 09-10-2024 Mri spinal canal cervical w/o contrast matrl MRI CERVICAL SPINE WO IVCON Radiology Routine Spinal stenosis of cervical region 1 Occurrences starting 08/12/2023 until 09/10/2024 [facility] Work Phone: Comment on above: 1 Occurrences starting 08/12/2023 until 09/10/2024 End: 05-05-2024 Mri spinal canal lumbar w/o contrast material MRI LUMBAR SPINE WO IVCON Radiology Routine Spinal stenosis of lumbar region, unspecified whether neurogenic claudication present 1 Occurrences starting 04/06/2023 until 05/05/2024 [facility] Work Phone: Comment on above: 1 Occurrences starting 04/06/2023 until 05/05/2024 OXIMETRY - NOCTURNAL OXIMETRY - NOCTURNAL Procedures Routine SOB (shortness of breath) Ordered: 05/28/2025 [facility] Comment on above: Ordered: 05/28/2025 Patient referral [facility] Work Phone: POST VOID RESIDUAL POST VOID RES IDUAL Procedures Routine S/P TURP Ordered: 07/20/2022 [facility] Work Phone: Comment on above: Ordered: 07/20/2022 POST VOID RESIDUAL POST VOID RES IDUAL Procedures Routine Urinary retention BPH with obstruction/lower urinary tract symptoms Ordered: 07/26/2023 [facility] Work Phone: Comment on above: Ordered: 07/26/2023 POST VOID RESIDUAL POST VOID RES IDUAL Procedures Routine BPH with obstruction/lower urinary tract symptoms Ordered: 07/31/2024 [facility] Work Phone: Comment on above: Ordered: 07/31/2024 End: 03-01-2024 PVR ANK [facility] Vascular Lab Routine Weakness of both lower extremities 1 Occurrences starting 03/01/2023 until 03/01/2024 [facility] Work Phone: Comment on above: 1 Occurrences starting 03/01/2023 until 03/01/2024 End: 07-17-2023 Radex spine lumbosacral 2/3 views XR LUMBAR GENERAL 3V AP/LAT/L5-S1 Radiology Routine History of traumatic brain injury Balance problem 1 Occurrences starting 06/17/2022 until 07/17/2023 [facility] Work Phone: Comment on above: 1 Occurrences starting 06/17/2022 until 07/17/2023 End: 04-01-2024 Radiologic exam chest 2 views XR CHEST 2V FRONTAL/LAT Radiology Routine Weight loss 1 Occurrences starting 03/01/2023 until 04/01/2024 [facility] Work Phone: Comment on above: 1 Occurrences starting 03/01/2023 until 04/01/2024 Radiologic exam ches t 2 views XR CHEST 2V FRONTAL/LAT Radiology Routine Weight loss 03/01/2023 2:29 PM EDT [facility] Work Phone: End: 03-29-2026 RF videography Hypopharynx and Esophagus Views W liquid and paste contrast PO during swallowing XR MODIFIED BARIUM SWALLOW W SPEECH THERAPY Radiology Routine Dysphagia, unspecified type 1 Occurrences starting 02/27/2025 until 03/29/2026 [facility] Work Phone: Comment on above: 1 Occurrences starting 02/27/2025 until 03/29/2026 End: 06-27-2026 US Extremity - left US EXTREMITY MASS/FLUID COLLECTION LEFT Radiology Routine Mass of left upper extremity 1 Occurrences starting 05/28/2025 until 06/27/2026 [facility] Work Phone: Comment on above: 1 Occurrences starting 05/28/2025 until 06/27/2026 US Extremity - left US EXTREMITY MASS/FLUID COLLECTION LEFT Radiology Routine Mass of left upper extremity 06/07/2025 10:55 AM EDT [facility] Work Phone: End: 05-19-2024 US KIDNEY/BLADDER US KIDNEY/BLADDER Radiology Routine Renal lesion 1 Occurrences starting 04/20/2023 until 05/19/2024 [facility] Work Phone: Comment on above: 1 Occurrences starting 04/20/2023 until 05/19/2024 End: 09-14-2025 XR CERV OTHER 4V AP/LAT/FLX/EXT XR CERV OTHER 4V AP/LAT/FLX/EXT Radiology Routine Neck pain 1 Occurrences starting 08/15/2024 until 09/14/2025 [facility] Work Phone: Comment on above: 1 Occurrences starting 08/15/2024 until 09/14/2025 XR CERV OTHER 4V AP/LAT/FLX/EXT XR CERV OTHER 4V AP/LAT/FLX/EXT Radiology Routine Neck pain 08/20/2024 2:26 PM EST [facility] Work Phone: [facility] Immunizations Immunization Date Immunization Notes Care Provider Fa cili 04-24-2025 tetanus toxoid, redu rose diphtheria toxoid, and acellular pertussis vaccine, adsorbed Dr. Yanet Adams MD Work Phone: [facility] 06-17-2022 influenza, high dose seasonal, preservative-free Yanet Adams MD Work Phone: [facility] 06-17-2022 influenza virus vacc ine, unspecified formulation Yanet Adams MD Work Phone: [facility] 04-29-2022 pneumococcal (PCV20) vaccine, 20 valent (PREVNAR 20) Yanet Adams MD Work Phone: [facility] 09-05-2020 tetanus toxoid, redu rose diphtheria toxoid, and acellular pertussis vaccine, adsorbed Isabella Dasilva APRN.MECHANICAL INTERN Work Phone: [facility] 05-14-2020 pneumococcal conjuga te vaccine, 13 valent Isabella Dasilva APRN.MECHANICAL INTERN Work Phone: [facility] 07-12-2018 Influenza virus vaccine [facility] 07-12-2018 influenza, seasonal, injectable, preservative free Isabella Dasilva APRN.MECHANICAL INTERN Work Phone: [facility] 06-17-2016 influenza, seasonal, injectable Isabella Dasilva APRN.MECHANICAL INTERN Work Phone: [facility] Work Phone: 06-17-2015 influenza virus vacc ine, unspecified formulation Isabella Dasilva APRN.MECHANICAL INTERN Work Phone: [facility] 05-14-2013 pneumococcal polysaccharide vaccine, 23 valent Isabella Dasilva APRN.MECHANICAL INTERN Work Phone: [facility] 02-22-2011 tetanus toxoid, redu rose diphtheria toxoid, and acellular pertussis vaccine, adsorbed Isabella Dasilva APRN.MECHANICAL INTERN Work Phone: [facility] Work Phone: Payers Date Payer Category Payer Self-pay [id number] 2023 Private Health Insurance [id number] 2021 Medicare [employer] MEDICARE A ETNA MEDICARE PPO [id number] 2021-Present [phone] [address] [place] [address] PPO [id number] 2021 Medicare (Managed Care) [employer] [place] D[place]ARE [id number] 2021 Private Health Insurance [id number] 2021 Medicare [id number] Unknown [id number] Unknown [id number] Unknown [id number] Unknown [id number] Unknown [id number] Unknown [id number] Unknown [id number] Unknown [id number] Unknown [id number] Unknown [id number] Unknown [id number] Unknown [id number] Unknown [id number] Social History Date Type Detail Facility Start: 05-14-2013 End: 02-14-2018 Tobacco smoking status NHIS Ex-smoker [facility] Work Phone: Start: 05-14-2013 End: 07-02-2024 Tobacco use and exposure Former smokeless tobacco user [facility] Work Phone: Start: 05-04-2021 End: 02-07-2022 Alcohol intake Current non-drinker of alcohol (finding) [facility] Start: 08-03-2021 End: 06-17-2022 Tobacco Comment occasionally will have a cigarette [facility] Start: 1955 Sex Assigned At Not on file C [facility] Start: 03-11-2021 End: 07-20-2022 Exposure to SARS-CoV-2 (event) Not sure [facility] History of tobacco use Current smoker [facility] History of tobacco use [facility] Start: 08-26-2020 End: 08-11-2023 Tobacco smoking status NHIS Unknown if ever smoked [facility] Start: 07-25-2018 None [facility] Start: 07-25-2018 Spouse/ Signif icant Other [facility] Start: 1955 Sex Assigned At Male [facility] Start: 03-01-2023 End: 07-02-2024 Tobacco smoking status NHIS Smokes tobacco daily [facility] Work Phone: Start: 04-20-2023 End: 05-25-2023 History of Social function [facility] Work Phone: Start: 04-20-2023 End: 05-25-2023 Tobacco use panel [facility] Work Phone: Start: 09-17-2012 Adult Depression Screening Assessment 0 [facility] Work Phone: Start: 04-12-2023 Gender identity Identifies as male gender (finding) [facility] Start: 07-26-2023 End: 05-22-2025 Alcohol intake Ex-drinker (finding) [facility] (I/We) worried wheth er (my/our) food would run out before (I/we) got money to buy more. Never true [facility] In the past 12 month s, was there a time when you were not able to pay the mortgage or rent on time? No [facility] Start: 09-07-2023 Sexual orientation Heterosexual (fin ding) [facility] Are you now , , , , never or living with a partner? [facility] How often to you hav e a drink containing alcohol? Never [facility] Do you feel stress - tense, restless, nervous, or anxious, or unable to sleep at night because your mind is troubled all the time - these days [OSQ] Not at all [facility] How hard is it for y ou to pay for the very basics like food, housing, medical care, and heating Not very hard [facility] Start: 02-20-2025 End: 04-24-2025 Tobacco smoking status NHIS Never smoked tobacco (finding) [facility] Functional Status Date Assessment Result Facility 05-01-2025 Are you deaf, or do you have serious difficulty hearing No 05/01/2025 1:02 PM Reena Wang RN No [facility] 05-01-2025 Are you blind, or do you have serious difficulty seeing, even when wearing glasses No 05/01/2025 1:02 PM Reena Wang, RN No [facility] 05-01-2025 Do you have serious difficulty walking or climbing stairs Yes 05/01/2025 1:02 PM Reena Wang, JAY JAY Yes [facility] 05-01-2025 Do you have difficul ty dressing or bathing Yes 05/01/2025 1:02 PM EDT Reena Shukla, JAY JAY Yes [facility] 05-01-2025 Because of a physica l, mental, or emotional condition, do you have difficulty doing errands alone such as visiting a physician's office or shopping Yes 05/01/2025 1:02 PM EDT Reena Shukla, JAY JAY Yes [facility] 08-19-2021 Are you deaf, or do you have serious difficulty hearing No 08/19/2021 4:33 PM Molly Joseph RN No [facility] 08-19-2021 Are you blind, or do you have serious difficulty seeing, even when wearing glasses No 08/19/2021 4:33 PM Molly Joseph, JAY JAY No [facility] 08-19-2021 Do you have serious difficulty walking or climbing stairs No 08/19/2021 4:33 PM Molly Joseph RN No [facility] 08-19-2021 Do you have difficul ty dressing or bathing No 08/19/2021 4:33 PM Molly Joseph, JAY JAY No [facility] 08-19-2021 Because of a physica l, mental, or emotional condition, do you have difficulty doing errands alone such as visiting a physician's office or shopping No 08/19/2021 4:33 PM Molly Joseph, JAY JAY No [facility] Mental Status Date Assessment Result Facility 05-01-2025 Because of a physica l, mental, or emotional condition, do you have serious difficulty concentrating, remembering, or making decisions Yes 05/01/2025 1:02 PM EDReena Beckford RN Yes [facility] 04-24-2025 Cognitive function Voice/Name [facility] Work Phone: 08-11-2023 Cognitive function Voice/Name [facility] Work Phone: 08-19-2021 Because of a physica l, mental, or emotional condition, do you have serious difficulty concentrating, remembering, or making decisions No 08/19/2021 4:33 PM EDT Molly Magana RN No [facility] Clinical Notes 05-04-2021 to 06-11-2025 Telephone Encounter - Carolyn brighte - 06/11/2025 11:59 AM EDTTelephone Encounter - Barbara Baezerie - 06/11/2025 11:59 AM EDTRsarahBarbara brighterie - 06/10/2025 3:11 PM EDTPatient Instructions Note Date & Type Note Facility 06-11-2025 Telephone encounter Note Patient reviewed for Population Health Medication Adherence Pended the following prescription(s) for review. Requested Prescriptions Pending Prescriptions Disp Refills pravastatin (PRAVACHOL) 40 mg tablet 90 tablet 3 Sig: Take 1 tablet by mouth once daily. Future Appointments Date Time Provider Department Center 07/29/2025 11:20 AM Fidelina Rosas APRN.[facility] 08/06/2025 1:00 PM Neeraj Jacobs PA-C [facility] [place] 08/30/2025 2:20 PM Yanet Pinto Jr., MD [facility] Please review and refill if appropriate. Thank you. Zonia Baez June 11, 2025 11:59 AM [facility] 06-11-2025 Miscellaneous Notes Patient reviewed for Population Health Medication Adherence Pended the following prescription(s) for review. Requested Prescriptions Pending Prescriptions Disp Refills pravastatin (PRAVACHOL) 40 mg tablet 90 tablet 3 Sig: Take 1 tablet by mouth once daily. Future Appointments Date Time Provider Department Center 07/29/2025 11:20 AM Fidelina Rosas APRN.SAMARIA [facility] 08/06/2025 1:00 PM Neeraj Jacobs PA-C [facility] [place] 08/30/2025 2:20 PM Yanet Pinto Jr., MD [facility] Please review and refill if appropriate. Thank you. Zonia Baez June 11, 2025 11:59 AM documented in this encounter [facility] 06-11-2025 Note HNO ID: [id number] Author: ?, ?, ? Service: ? Author Type: ? Type: Progress Notes Filed: 06/11/2025 11:58 Note Text: Patient is identified through a medication adherence outreach initiative based on pharmacy claims data from: [employer] Medication Adherence Category: Statins Second Attempt Medication(s) Pravastatin 40 mg Last Filled 30 for 90 DS, Next fill due 05/14 Medication Status per portal/Epic Reconcile Dispense: Not filled Medication Status per Profile Review: No refills Patient identified by name and Outreach to patient: Spoke to patient Med Adherence Concern: No refills What was primary intervention? Asked permission to send refill request and Pend refill request to provider Zonia Baez [facility] 06-10-2025 Note HNO ID: [id number] Author: ?, ?, ? Service: ? Author Type: ? Type: Progress Notes Filed: 06/10/2025 15:21 Note Text: Patient is identified through a medication adherence outreach initiative based on pharmacy claims data from: [employer] Medication Adherence Category: Statins First Review Attribution Status: Correct attribution Medication(s) Pravastatin 40 mg Last Filled 02/13 for 90 DS, Next fill due 05/14 Medication Status per portal/Epic Reconcile Dispense: Not filled Medication Status per Profile Review: No refills Patient/provider appropriate for outreach? Yes Patient identified by name and Outreach to patient: Left Voicemail/message for return call and Sent [employer] message What was primary intervention? Asked permission to send refill request Zonia Baez [facility] 06-10-2025 History of Present illness Narrative Patient is identified through a medication adherence outreach initiative based on pharmacy claims data from: [employer] Medication Adherence Category: Statins First Review Attribution Status: Correct attribution Medication(s) Pravastatin 40 mg Last Filled 30 for 90 DS, Next fill due 05/14 Medication Status per portal/Epic Reconcile Dispense: Not filled Medication Status per Profile Review: No refills Patient/provider appropriate for outreach? Yes Patient identified by name and Outreach to patient: Left Voicemail/message for return call and Sent MyChart message What was primary intervention? Asked permission to send refill request Zonia Baez [facility] documented in this encounter [facility] 06-10-2025 Note Patient Outreach (PH POHE) PATRICIO PADRON ([id number]) 1955 M Date Time Provider Department 06/10/25 YANET ADAMS During your visit today, we recorded the following information about you: Zonia Baez 06/10/2025 3:21 PM Signed Patient is identified through a medication adherence outreach initiative based on pharmacy claims data from: [employer] Medication Adherence Category: Statins First Review Attribution Status: Correct attribution Medication(s) Pravastatin 40 mg Last Filled 02/13 for 90 DS, Next fill due 05/14 Medication Status per portal/Epic Reconcile Dispense: Not filled Medication Status per Profile Review: No refills Patient/provider appropriate for outreach? Yes Patient identified by name and Outreach to patient: Left Voicemail/message for return call and Sent MyChart message What was primary intervention? Asked permission to send refill request Zonia Baez [facility] Zonia Baez 06/11/2025 11:58 AM Signed Patient is identified through a medication adherence outreach initiative based on pharmacy claims data from: [employer] Medication Adherence Category: Statins Second Attempt Medication(s) Pravastatin 40 mg Last Filled 02/13 for 90 DS, Next fill due 05/14 Medication Status per portal/Epic Reconcile Dispense: Not filled Medication Status per Profile Review: No refills Patient identified by name and Outreach to patient: Spoke to patient Med Adherence Concern: No refills What was primary intervention? Asked permission to send refill request and Pend refill request to provider Zonia Baez [facility] Allergies As of Date: 06/10/2025 (No Known Allergies) Date Reviewed: 05/22/2025 Reviewed by: Linh Hector APRN.MECHANICAL INTERN - Fully Assessed Reason for Visit: Allied Health Visit [5] Cmt: Medication adherence outreach Prescriptions as of 06/11/2025 - nicotine (NICODERM) 14 mg/24 hr Apply 1 patch as directed once daily. - mirtazapine (REMERON) 7.5 mg tablet Take 1 tablet by mouth daily at bedtime. - cholecalciferol (VITAMIN D3) 1,000 unit tab tablet Take 1 tablet by mouth once daily. - memantine (NAMENDA) 5 mg tablet Take 1 tablet by mouth two times a day. - terazosin (HYTRIN) 5 mg capsule Take 1 capsule by mouth daily at bedtime. - pravastatin (PRAVACHOL) 40 mg tablet Take 1 tablet by mouth once daily. Meds Comments as of 04/09/2025: Namenda pravastatin Hytrin HYTRINHYTRIN Problem List As Of Date 06/10/2025 Noted Resolved Benign non-nodular prostatic hyperplasia with [...] myelopathy (HCC) [G95.9] 12/30/2023 Prediabetes [R73.03] 07/02/2024 SDH (subdural hematoma) (HCC) [S06.5XAA] 04/24/2025 Nicotine use disorder, F17.2 [F17.200] 04/25/2025 Community acquired pneumonia [J18.9] 04/29/2025 Leukocytosis [D72.829] 04/29/2025 Fall [W19.XXXA] 04/29/2025 Encounter Status:Closed by ZONIA BAEZ on 06/10/25 [facility] 06-07-2025 History of Present illness Narrative Radiology Service Progress Note PATIENT NAME: Patricio Padron DATE OF SERVICE: June 07, 2025 TIME: 1:17 PM PATIENT IDENTITY VERIFICATION COMPLETED USING TWO (2) IDENTIFIERS: Name and Date of confirmed by patient verbally. FALL SCREENING: Has the patient had 2 falls in the last year or 1 fall with injury or currently using an Ambulatory Assistive Device (Walker, Cane, Wheelchair, Crutches, etc.)? Yes, Patient High Risk for Falls What interventions were put in place to prevent falls during this visit? Instructed Patient to Call for Help if Needed, Offered Assistance with Transfers/Clothing, Instructed Patient to Remain Seated (Not on Exam Table) Until Exam, and Increased Observations by Caregivers PATIENT GENDER DATA: Assigned male at PATIENT RELEVANT IMPLANT DATA REVIEWED: Not Applicable PATIENT PRESENTS WITH AN IMPLANTABLE OR ATTACHED PSYCHOPAEDIC NURSE: No RADIOLOGY DEPARTMENT: Ultrasound PERIPHERAL IV DATA: Not applicable SIGNED BY: Oliva Kolb RDMS RVT June 07, 2025 1:17 PM documented in this encounter [facility] 06-07-2025 Note HNO ID: [id number] Author: OLIVA KOLB RDMS Service: ? Author Type: Microbiology Lab Technician Type: Progress Notes Filed: 06/07/2025 13:17 Note Text: Radiology Service Progress Note PATIENT NAME: Patricio Padron DATE OF SERVICE: June 07, 2025 TIME: 1:17 PM PATIENT IDENTITY VERIFICATION COMPLETED USING TWO (2) IDENTIFIERS: Name and Date of confirmed by patient verbally. FALL SCREENING: Has the patient had 2 falls in the last year or 1 fall with injury or currently using an Ambulatory Assistive Device (Walker, Cane, Wheelchair, Crutches, etc.)? Yes, Patient High Risk for Falls What interventions were put in place to prevent falls during this visit? Instructed Patient to Call for Help if Needed, Offered Assistance with Transfers/Clothing, Instructed Patient to Remain Seated (Not on Exam Table) Until Exam, and Increased Observations by Caregivers PATIENT GENDER DATA: Assigned male at PATIENT RELEVANT IMPLANT DATA REVIEWED: Not Applicable PATIENT PRESENTS WITH AN IMPLANTABLE OR ATTACHED PSYCHOPAEDIC NURSE: No RADIOLOGY DEPARTMENT: Ultrasound PERIPHERAL IV DATA: Not applicable SIGNED BY: Oliva Kolb RDMS RVDarnell June 07, 2025 1:17 PM [facility] 06-06-2025 Telephone encounter Note Faxed oxygen order and ov notes to [employer] per request. Fax number [phone]. states she does not want to deal with [employer]. [facility] 06-06-2025 Miscellaneous Notes Faxed oxygen order and ov notes to [employer] per request. Fax number [phone]. states she does not want to deal with [employer]. Reprinted. Has known shortness of breath. Yessica from [facility] calling in and states that they did an overnight pulse ox on pt and he does qualify for oxygen overnight. She states he would be low for an hour straight and got to as low as 57. She is asking for office notes to be sent to them along with an order for the oxygen. She states in order to qualify for the overnight oxygen, they need a diagnosis more than just shortness of breath. They need a reason for the shortness of breath. Like a heart or lung condition. If they attempt to use sleep apnea, pt will have to have a CPAP titration test. written Patient's calls and states that patient is willing to wear O2 at night. Please place order for this. Patient would like order faxed to [employer] [facility] [employer] Please review and advise, Estee Kendall RN documented in this encounter [facility] 06-06-2025 Telephone encounter Note [facility] calling to state they received an order for pt to have a transport chair however pt recently received a wheelchair and pt only allowed one wheeled item every 5 years. Nica Marin RN [facility] 06-06-2025 Miscellaneous Notes [facility] calling to state they received an order for pt to have a transport chair however pt recently received a wheelchair and pt only allowed one wheeled item every 5 years. Nica Marin RN documented in this encounter [facility] 06-05-2025 Telephone encounter Note Reprinted. Has known shortness of breath. [facility] 06-05-2025 Telephone encounter Note Yessica from [facility] calling in and states that they did an overnight pulse ox on pt and he does qualify for oxygen overnight. She states he would be low for an hour straight and got to as low as 57. She is asking for office notes to be sent to them along with an order for the oxygen. She states in order to qualify for the overnight oxygen, they need a diagnosis more than just shortness of breath. They need a reason for the shortness of breath. Like a heart or lung condition. If they attempt to use sleep apnea, pt will have to have a CPAP titration test. [facility] 06-05-2025 Telephone encounter Note written [facility] 06-05-2025 Telephone encounter Note Patient's calls and states that patient is willing to wear O2 at night. Please place order for this. Patient would like order faxed to [employer] [facility] [employer] Please review and advise, Estee Kendall RN [facility] 06-04-2025 Telephone encounter Note Noted. [facility] 06-04-2025 Miscellaneous Notes Noted. Pt's called and is notified of providers results and instructions. She voices understanding and states she will talk with her to see if he will wear it. She states he doesn't have O2 at home. I told her they would need to call their insurance and find out what DME they would need to go through to get the O2. Pt's is going to call in to let providers office know if Pt would be willing to wear O2, and then what DME. Lara Heath RN His oxygen level does decline overnight. He needs to wear oxygen at hs. I believe he has at home. Verify he has it and would use it at 2 L nc at hs. Results for patient. Scan on 06/04/2025 12:47 PM by ProviderHemanth PA-C: overnight oximetry documented in this encounter [facility] 06-04-2025 Telephone encounter Note Pt's called and is notified of providers results and instructions. She voices understanding and states she will talk with her to see if he will wear it. She states he doesn't have O2 at home. I told her they would need to call their insurance and find out what DME they would need to go through to get the O2. Pt's is going to call in to let providers office know if Pt would be willing to wear O2, and then what DME. Lara Heath RN [facility] 06-04-2025 Telephone encounter Note His oxygen level does decline overnight. He needs to wear oxygen at hs. I believe he has at home. Verify he has it and would use it at 2 L nc at hs. [facility] 06-04-2025 Telephone encounter Note Results for patient. Scan on 06/04/2025 12:47 PM by ProviderHemanth PA-C: overnight oximetry [facility] 05-28-2025 Note HNO ID: [id number] Author: YANET ADAMS MD Service: ? Author Type: Physician Type: Progress Notes Filed: 05/28/2025 17:17 Note Text: Patricio Padron is a 70-year-old male with a history of dementia, accompanied by his caregiver, presenting for follow-up after a recent fall and hospitalization, with additional concerns about decreased appetite, dyspnea, and left arm swelling. HPI Recent Fall and Hospitalization: - Unwitnessed fall on 04/24/25, resulting in head trauma and a small right temporal subdural hematoma. - Hospitalized at [facility] from 04/24 to 05/01/25; attended by Dr. Erika Milton. - Neurosurgery performed serial CTs showing stable appearance; recommended conservative treatment and Keppra for one week. - Underwent a syncopal workup, including an echocardiogram, carotid ultrasound, and orthostatic vital signs. - Treated with azithromycin and ceftriaxone for possible pneumonia; symptoms improved. Chest xray was negative. - Transferred to [facility] for rehabilitation; participated in physical and occupational therapy. - Recent CT on 05/17 showed near-complete resolution of the subdural hemorrhage. Decreased Appetite: - Inconsistent oral intake; some days consuming only Ensure. - No dysphagia, odynophagia, or cough reported. - Previously evaluated by speech therapy for swallowing difficulties. - Palliative care involved; advised to increase Ensure intake. Dyspnea: - Occasional episodes of dyspnea, particularly when overheated. - No chest pain or lower extremity edema reported. - Oxygen saturation levels have been normal when checked. Left Arm Swelling: - Swelling in the left antecubital fossa following an IV infiltration during hospitalization. - Swelling has decreased but remains firm; no erythema or warmth currently. - No pain reported in the affected area. Dementia: - Progressive worsening of dementia symptoms. - Currently on memantine for management. - Nocturnal restlessness, with frequent awakenings during the night. - Daytime somnolence, with periods of dozing throughout the day. - Minimal ambulation; primarily uses a wheelchair for mobility. - Nicoderm patch 14 mg being used to prevent smoking. MEDICATIONS: Current Outpatient Medications Medication Sig nicotine (NICODERM) 14 mg/24 hr Apply 1 patch as directed once daily. mirtazapine (REMERON) 7.5 mg tablet Take 1 tablet by mouth daily at bedtime. cholecalciferol (VITAMIN D3) 1,000 unit tab tablet Take 1 tablet by mouth once daily. memantine (NAMENDA) 5 mg tablet Take 1 tablet by mouth two times a day. terazosin (HYTRIN) 5 mg capsule Take 1 capsule by mouth daily at bedtime. pravastatin (PRAVACHOL) 40 mg tablet Take 1 tablet by mouth once daily. No current facility-administered medications for this visit. ALLERGIES: ALLERGIES No Known Allergies PAST MEDICAL HISTORY Diagnosis Date Arthritis BPH with obstruction/lower urinary tract symptoms Renal lesion 07/26/2023 Rosacea Subarachnoid hemorrhage (HCC) 08/11/2023 PAST SURGICAL HISTORY Procedure Laterality Date PAST SURGICAL HISTORY OF flexible cystoscopy PAST SURGICAL HISTORY OF 1958 tonsillectomy PAST SURGICAL HISTORY OF 2017 left eye surgery PAST SURGICAL HISTORY OF 2023 Surgery to drain hematoma on brain- not successful TRANSURETHRAL ELEC-SURG PROSTATECTOM N/A 08/18/2021 TRANSURETHRAL ELEC-SURG PROSTATECTOM 2019 FAMILY HISTORY Problem Relation Age of Onset Arthritis Mother Cancer Mother melanoma Heart Mother Viral myocarditis. GI Father ulcers SOCIAL HISTORY[1] Reviewed current medications, allergies, past medical history, surgical history, family history and social history today. REVIEW OF SYSTEMS Constitutional: (+) decreased appetite, (+) poor oral intake, (+) heat intolerance, (+) cold intolerance Cardiovascular: (-) chest pain, (-) peripheral edema Respiratory: (+) episodic dyspnea Gastrointestinal: (-) dysphagia, (-) odynophagia, (-) choking Genitourinary: (+) intermittent urinary retention Musculoskeletal: (+) generalized weakness, (+) left antecubital soft tissue fullness, (-) left antecubital pain Skin: (+) senile purpura, (+) skin bumps, (-) left antecubital erythema, (-) left antecubital warmth, (-) skin ulcers Psychiatric: (+) nocturnal awakenings, (+) daytime somnolence HEALTH MAINTENANCE: Reviewed health maintenance issues today and recommended the following in detail. RSV Vaccine(1 - Risk 60-74 years 1-dose series) Never done Medicare Advantage Annual Wellness Visit Never done Colorectal Cancer Screening due on 01/17/2025 LAB REVIEWED: Labs: (05/14/2025) - WBC: 7.7 - Hemoglobin: 14.1 - Platelets: 307 - BMP: Normal Leukocytosis on arrival Tests: Orthostatic vital signs: performed, results not specified Imaging: (05/17/2025) CT Head: Near complete resolution of right convexity subdural hemorrhage, no evidence of new findings, chronic changes (more content not included)... [facility] 05-28-2025 History of Present illness Narrative Patricio Padron is a 70-year-old male with a history of dementia, accompanied by his caregiver, presenting for follow-up after a recent fall and hospitalization, with additional concerns about decreased appetite, dyspnea, and left arm swelling. HPI Recent Fall and Hospitalization: - Unwitnessed fall on 04/24/25, resulting in head trauma and a small right temporal subdural hematoma. - Hospitalized at [facility] from 04/24 to 05/01/25; attended by Dr. Erika Milton. - Neurosurgery performed serial CTs showing stable appearance; recommended conservative treatment and Keppra for one week. - Underwent a syncopal workup, including an echocardiogram, carotid ultrasound, and orthostatic vital signs. - Treated with azithromycin and ceftriaxone for possible pneumonia; symptoms improved. Chest xray was negative. - Transferred to [facility] for rehabilitation; participated in physical and occupational therapy. - Recent CT on 05/17 showed near-complete resolution of the subdural hemorrhage. Decreased Appetite: - Inconsistent oral intake; some days consuming only Ensure. - No dysphagia, odynophagia, or cough reported. - Previously evaluated by speech therapy for swallowing difficulties. - Palliative care involved; advised to increase Ensure intake. Dyspnea: - Occasional episodes of dyspnea, particularly when overheated. - No chest pain or lower extremity edema reported. - Oxygen saturation levels have been normal when checked. Left Arm Swelling: - Swelling in the left antecubital fossa following an IV infiltration during hospitalization. - Swelling has decreased but remains firm; no erythema or warmth currently. - No pain reported in the affected area. Dementia: - Progressive worsening of dementia symptoms. - Currently on memantine for management. - Nocturnal restlessness, with frequent awakenings during the night. - Daytime somnolence, with periods of dozing throughout the day. - Minimal ambulation; primarily uses a wheelchair for mobility. - Nicoderm patch 14 mg being used to prevent smoking. MEDICATIONS: Current Outpatient Medications Medication Sig nicotine (NICODERM) 14 mg/24 hr Apply 1 patch as directed once daily. mirtazapine (REMERON) 7.5 mg tablet Take 1 tablet by mouth daily at bedtime. cholecalciferol (VITAMIN D3) 1,000 unit tab tablet Take 1 tablet by mouth once daily. memantine (NAMENDA) 5 mg tablet Take 1 tablet by mouth two times a day. terazosin (HYTRIN) 5 mg capsule Take 1 capsule by mouth daily at bedtime. pravastatin (PRAVACHOL) 40 mg tablet Take 1 tablet by mouth once daily. No current facility-administered medications for this visit. ALLERGIES: ALLERGIES No Known Allergies PAST MEDICAL HISTORY Diagnosis Date Arthritis BPH with obstruction/lower urinary tract symptoms Renal lesion 07/26/2023 Rosacea Subarachnoid hemorrhage (HCC) 08/11/2023 PAST SURGICAL HISTORY Procedure Laterality Date PAST SURGICAL HISTORY OF flexible cystoscopy PAST SURGICAL HISTORY OF 1958 tonsillectomy PAST SURGICAL HISTORY OF 2017 left eye surgery PAST SURGICAL HISTORY OF 2023 Surgery to drain hematoma on brain- not successful TRANSURETHRAL ELEC-SURG PROSTATECTOM N/A 08/18/2021 TRANSURETHRAL ELEC-SURG PROSTATECTOM 2019 FAMILY HISTORY Problem Relation Age of Onset Arthritis Mother Cancer Mother melanoma Heart Mother Viral myocarditis. GI Father ulcers SOCIAL HISTORY[1] Reviewed current medications, allergies, past medical history, surgical history, family history and social history today. REVIEW OF SYSTEMS Constitutional: (+) decreased appetite, (+) poor oral intake, (+) heat intolerance, (+) cold intolerance Cardiovascular: (-) chest pain, (-) peripheral edema Respiratory: (+) episodic dyspnea Gastrointestinal: (-) dysphagia, (-) odynophagia, (-) choking Genitourinary: (+) intermittent urinary retention Musculoskeletal: (+) generalized weakness, (+) left antecubital soft tissue fullness, (-) left antecubital pain Skin: (+) senile purpura, (+) skin bumps, (-) left antecubital erythema, (-) left antecubital warmth, (-) skin ulcers Psychiatric: (+) nocturnal awakenings, (+) daytime somnolence HEALTH MAINTENANCE: Reviewed health maintenance issues today and recommended the following in detail. RSV Vaccine(1 - Risk 60-74 years 1-dose series) Never done Medicare Advantage Annual Wellness Visit Never done Colorectal Cancer Screening due on 01/17/2025 LAB REVIEWED: Labs: (05/14/2025) - WBC: 7.7 - Hemoglobin: 14.1 - Platelets: 307 - BMP: Normal Leukocytosis on arrival Tests: Orthostatic vital signs: performed, results not specified Imaging: (05/17/2025) CT Head: Near complete resolution of right convexity subdural hemorrhage, no evidence of new findings, chronic changes (04/25/2025) CT Head: Small right temporal subdural hematoma with minimal extension superiorly above the temporal region Chest X-ray: Normal findings Echocardiogram: Left ventricular function 55 plus-minus 5, normal right ventricle, no significant valvular abnormalities Carotid Duplex: Normal carotids VITALS: BP 122/82 Pulse 84 Wt 65.8 kg (145 lb) SpO2 97% BMI 24.13 kg/m Last 4 Encounter Wt Readings: Date: Wt: 05/28/2025 65.8 kg (145 lb) 04/24/2025 64.6 kg (142 lb 6.7 oz) 03/23/2025 67.3 kg (148 lb 6.4 oz) 02/08/2025 66.2 kg (146 lb) PHYSICAL EXAMINATION: GENERAL: NAD, alert and oriented. SKIN: Senile purpura noted on forearms, no open wounds. HEAD: Normocephalic. EYES: PERRLA, EOMI, conjunctiva clear. EARS: External ears normal, canals clear, TM's normal. NOSE/SINUSES: Nares normal. Septum midline. OROPHARYNX: Lips, mucosa, and tongue normal, good dentition. No oral lesions noted. NECK: Supple, no lymphadenopathy, normal thyroid, no carotid bruits. LUNGS: Clear to auscultation bilaterally, no wheezes/rhonchi/rales. HEART: Regular rate and rhythm, no murmurs. No ectopy. EXTREMITIES: No deformities, no edema. Soft tissue fullness noted in the left antecubital fossa, no erythema or warmth. NEURO: Awake, alert and oriented x3, cranial nerves II-XII grossly intact, normal gait, no involuntary motions. ASSESSMENT AND PLAN 1. SDH (subdural hematoma) (HCC) (S06.5XAA) - Reviewed hospitalization records from 04/24 to 05/01/25 at [facility] under Dr. Erika Milton. - Initial CT showed small right temporal subdural hematoma with minimal superior extension; serial CTs demonstrated stability. - Neurosurgery recommended conservative management; Destinee prescribed for one week. - Most recent CT on 05/17 showed near complete resolution of right convexity subdural hemorrhage, no new findings. 2. Unsteady gait (R26.81) 3. Ataxia, unspecified (R27.0) - Syncopal workup during hospitalization included echo, carotid ultrasound, and orthostatic vitals; echo showed LVEF 55% plus-minus 5%, normal RV, no significant valvular abnormalities; carotid duplex showed no significant stenosis. - Physical and occupational therapy evaluations completed at [facility]; patient continues to have significant mobility limitations. - Advised use of lightweight transport chair for mobility. 4. Mass of left upper extremity (R22.32) - Soft tissue fullness in left antecubital fossa, likely secondary to prior IV infiltration; no erythema, warmth, or pain. - Order ultrasound of left upper arm above olecranon fossa to rule out vascular injury or hematoma. - Advised to monitor for increased pain, redness, or warmth and report if symptoms develop. 5. Leukocytosis, unspecified type (D72.829) - Leukocytosis noted on admission; treated with azithromycin and ceftriaxone for possible pneumonia, with improvement. - Most recent WBC 7.7 on 05/14/25. 6. Anorexia (R63.0) - Poor oral intake with variable appetite; no dysphagia or odynophagia, but frequent throat clearing. - Start mirtazapine at bedtime to stimulate appetite and assist with sleep. - Order CBC, CMP, prealbumin, and TSH to assess nutritional status and rule out metabolic causes. - Encourage continued use of Ensure and Propel to maintain hydration and caloric intake. 7. 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 - Palliative care involved; family to discuss goals of care and potential interventions if nutritional status worsens. - No evidence of sundowning; frequent nocturnal awakenings noted. - Continue current dementia management; monitor for changes in behavior or cognition. 8. Tobacco use (Z72.0) - Advised to use Nicoderm 14 mg patch to reduce smoking while condition is unstable. 9. SOB (shortness of breath) (R06.02) - Intermittent episodes of dyspnea, possibly related to anxiety or environmental factors; no chest pain or lower extremity edema. - Order nocturnal oximetry to assess for hypoxemia during sleep. 10. Heat intolerance (R68.89) - Fluctuating sensations of being hot and cold; no evidence of infection or other acute cause. - Order TSH to rule out thyroid dysfunction. (See patient after visit summary for additional instructions to patient) Yanet Adams MD Recording using ambient [employer] software for draft documentation of the visit was discussed with the patient/authorized public service representative; all questions welcomed and answered. Patient/authorized public service representative agreed to proceed [1] Social History Tobacco Use Smoking status: Every Day Current packs/day: 0.50 Average packs/day: 0.5 packs/day for 20.0 years (10.0 ttl pk-yrs) Types: Cigarettes Smokeless tobacco: Former Vaping Use Vaping status: Never Used Substance Use Topics Alcohol use: Not Currently Drug use: Never documented in this encounter [facility] 05-22-2025 Note HNO ID: [id number] Author: LINH HECTOR APRN.CNP Service: ? Author Type: Nurse Practitioner Type: Progress Notes Filed: 05/22/2025 09:25 Note Text: NEUROSURGERY FOLLOW UP OFFICE NOTE Linh Hector APRN.MECHANICAL INTERN Date of visit: May 22, 2025 Patient Name: Mr.Gary Augustin Padron Date of : 1955 Current Age: [age] year old Sex: male MRN/E# [id number] Last Office Visit: Hospital follow-up CHIEF COMPLAINT: Patient presents with: Established Patient Clinical History: - 08/12/23 -R frontoparietal tSAH, right subdural hygroma - 09/12/23 - Acute R SDH with R-L MLS - recommended MMA embolization - pt refused - 09/19/23 - Increased R SDH (symptomatic) - left AMA from [facility] - 10/04/23 - Attempted R MMA embolization - unable to access origin of R MMA - 11/21/23 - CT B showed resolution of R SDH HPI: The patient presents for a hospital follow up with imaging (CT B) for evaluation. This is a 70-year-old male with a PMHx of arthritis, BPH, renal lesion, tSAH (07/2023) who was seen after transfer from OSH for consult at [facility] on 04/24/[address] Leblanc. He presented as a level 1 trauma after a GL F causing him to strike his head on the ground earlier that morning. He was amnesic to the event and had an unknown LOC. He denied use of blood thinning medications. Workup was completed and showed a thin R convexity SDH. He was loaded with 1 g of Keppra and transferred to [facility] for higher acuity care. No emergent neurosurgical intervention was indicated. He was started on a short course of oral Keppra and monitored in the ICU with frequent neurochecks and serial imaging. Repeat imaging remained stable and no surgical intervention was ultimately warranted. Recommendation was to follow-up in 2 to [address] prompting his visit today. Since discharge he states that he is overall doing well and denies any specific complaints or concerns. Neurologically he is back to baseline. He denies any headache, visual changes, speech deficits, seizure activity, motor or sensory changes. His gait is compensated and he utilizes a rollator for ambulation while at home but also spends time in a wheelchair due to residual right-sided weakness from a previous bleed. He presents for image review, evaluation and plan of care. SYMPTOMS: None PREVIOUS CONSERVATIVE TREATMENTS: Keppra -short course PREVIOUS SURGERY: SURGERY #1: Attempted right MMA embolization on 10/04/[address] Rivero. FINDINGS: The right middle meningeal artery is solely supplied by the right ophthalmic artery. Attempted access to the origin of the right MMA for coil embolization, however could not get past its shared origin with the ciliary artery. 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 PAST MEDICAL HISTORY Diagnosis Date Arthritis BPH with obstruction/lower urinary tract symptoms Renal lesion 07/26/2023 Rosacea Subarachnoid hemorrhage (HCC) 08/11/2023 PAST SURGICAL HISTORY Procedure Laterality Date PAST SURGICAL HISTORY OF flexible cystoscopy PAST SURGICAL HISTORY OF 1958 tonsillectomy PAST SURGICAL HISTORY OF 2017 left eye surgery PAST SURGICAL HISTORY OF 2023 Surgery to drain hematoma on brain- not successful TRANSURETHRAL ELEC-SURG PROSTATECTOM N/A 08/18/2021 TRANSURETHRAL ELEC-SURG PROSTATECTOM 2019 FAMILY HISTORY Problem Relation Age of Onset Arthritis Mother Cancer Mother melanoma Heart Mother Viral myocarditis. GI Father ulcers ALLERGIES No Known Allergies Current Outpatient Medications Medication Sig Dispense Refill cholecalciferol (VITAMIN D3) 1,000 unit tab tablet Take 1 tablet by mouth once daily. nicotine (NICODERM) 14 mg/24 hr Apply 1 patch as directed once daily. memantine (NAMENDA) 5 mg tablet Take 1 tablet by mouth two times a day. 60 tablet 5 terazosin (HYTRIN) 5 mg capsule Take 1 capsule by mouth daily at bedtime. 90 capsule 3 pravastatin (PRAVACHOL) 40 mg tablet Take 1 tablet by mouth once daily. 90 tablet 3 No current facility-administered medications for this visit. REVIEW OF SYSTEMS: Review of Systems All other systems reviewed and are negative. Head: (-) headache Eyes: (-) diplopia, (-) vision loss Ears/Nose/Mouth/Throat: (+) frequent throat clearing, (-) choking Gastrointestinal: (+) dysphagia Neurological: (+) right-sided weakness, (+) difficulty speaking OBJECTIVE: BP 102/69 Pulse 105 Resp 16 SpO2 97% PHYSICAL EXAM: Mental State : Alert. Attention span and concentration normal for patient's age. Speech normal, fluent. No receptive or expressive speech deficit. Recent and remote memory normal. Orientation : Oriented to person, place and time. Higher Cortical Function : Intact speech and language. Comprehension normal. Fund of knowledge intact for pt level of education. Cranial Nerves : II: (more content not included)... [facility] 05-17-2025 History of Present illness Narrative Radiology Service Progress Note PATIENT NAME: Patricio Padron DATE OF SERVICE: May 17, 2025 TIME: 12:34 PM PATIENT IDENTITY VERIFICATION COMPLETED USING TWO (2) IDENTIFIERS: Name and Date of confirmed by patient verbally. FALL SCREENING: Has the patient had 2 falls in the last year or 1 fall with injury or currently using an Ambulatory Assistive Device (Walker, Cane, Wheelchair, Crutches, etc.)? No PATIENT GENDER DATA: Assigned male at PATIENT RELEVANT IMPLANT DATA REVIEWED: Yes PATIENT PRESENTS WITH AN IMPLANTABLE OR ATTACHED PSYCHOPAEDIC NURSE: No RADIOLOGY DEPARTMENT: CT; Exam(s) Completed: Brain PERIPHERAL IV DATA: Not applicable SIGNED BY: RT Mars(R) May 17, 2025 12:34 PM documented in this encounter [facility] 05-17-2025 Note HNO ID: [id number] Author: BENY AIKEN RT(Sandra) Service: ? Author Type: [address] Type: Progress Notes Filed: 05/17/2025 12:34 Note Text: Radiology Service Progress Note PATIENT NAME: Patricio Padron DATE OF SERVICE: May 17, 2025 TIME: 12:34 PM PATIENT IDENTITY VERIFICATION COMPLETED USING TWO (2) IDENTIFIERS: Name and Date of confirmed by patient verbally. FALL SCREENING: Has the patient had 2 falls in the last year or 1 fall with injury or currently using an Ambulatory Assistive Device (Walker, Cane, Wheelchair, Crutches, etc.)? No PATIENT GENDER DATA: Assigned male at PATIENT RELEVANT IMPLANT DATA REVIEWED: Yes PATIENT PRESENTS WITH AN IMPLANTABLE OR ATTACHED PSYCHOPAEDIC NURSE: No RADIOLOGY DEPARTMENT: CT; Exam(s) Completed: Brain PERIPHERAL IV DATA: Not applicable SIGNED BY: RT Mars(Sandra) May 17, 2025 12:34 PM [facility] 05-01-2025 Note HNO ID: [id number] Author: BRANDIN BELL RN Service: Care Management Author Type: Registered Nurse Type: Care Mgt Progress Note Filed: 05/01/2025 09:07 Note Text: CARE MANAGEMENT DISCHARGE NOTE SERVICE DATE: May 01, 2025 SERVICE TIME: 9:06 AM Admission Date: 04/24/2025 LOS: 7 days Discharge Arrangement Discharge Arrangement: [facility] Facility Was an expedited discharge program used?: No Services Arranged Medical Services: Other: See Comment Caregiver Assessment Caregiver is ready, willing and able to meet the patient's needs as recommended by the inter-professional team: Yes Name of Caregiver: Mendel Badillo Transportation Arrangements Transportation Arrangements: Ambulance Transportation Agency and Phone #:: [facility] ( [facility] ) [phone] / [phone] Date of Trip: 05/01/25 Time of Trip: 1300 Type of Service: BLS Non-emergency Is Patient Medicaid Pending?: No Was transportation financial coverage discussed with family?: Patient Explosive Specialist Location: [facility] Destination: [place] Financial Care Management Responsibility: None Additional Information: Patient discharging to [facility] via [facility] cot today at 1300. Auth approved, 7000 will be completed in HENs and RN to call report. CM called and updated patient via phone who is agreeable to plan. SIGNATURE: Brandin Bell RN PATIENT NAME: Patricio Padron DATE: May 01, 2025 TIME: 9:06 AM [facility] 05-01-2025 Note HNO ID: [id number] Author: BRANDIN BELL RN Service: Care Management Author Type: Registered Nurse Type: Care Mgt Progress Note Filed: 05/01/2025 09:05 Note Text: CARE MANAGEMENT PROGRESS NOTE SERVICE DATE: 05/01/2025 SERVICE TIME: 9:04 AM LOS: 7 days IMM Follow Up Copy Given: Yes Copy given to:: Patient Method: In Person SIGNATURE: Brandin Bell RN PATIENT NAME: Patricio Padron DATE: May 01, 2025 TIME: 9:04 AM [facility] 04-30-2025 Note HNO ID: [id number] Author: SIDDHARTHA CLAY APRN.CNP Service: General Surgery Author Type: Nurse Practitioner Type: Progress Notes Filed: 04/30/2025 10:35 Note Text: Trauma Surgery Progress Note SERVICE DATE: 04/30/2025 Trauma Service Pager: For questions or concerns Mon-Fri 6a-5p please page [phone]. After 5pm and on Weekends and Holidays, please page [phone] if in ICU or [phone] if on RNF. SUBJECTIVE: No acute overnight events. Patient is alert and oriented x 2 (reoriented to time), FC, MINER. No new focal deficits. He denies any acute pain or discomfort at this time. He denies headache, dizziness, lightheadedness, changes in vision, numbness/tingling. Awaiting SNF placement. OBJECTIVE: Vitals: Temp (24hrs), Av.8 ?C (98.2 ?F), Min:36.4 ?C (97.5 ?F), Max:37.4 ?C (99.3 ?F) BP 132/85 Pulse 82 Temp 37.4 ?C (99.3 ?F) (Oral) Resp 18 Ht 165.1 cm (5' 5) Wt 64.6 kg (142 lb 6.7 oz) SpO2 92% BMI 23.70 kg/m? O2 Therapy: Room Air IANDO: Date 04/29/25699 - 04/30/2565804/30/25699 - 05/01/25 0659 Shift 9466-8191 9686-0093 8555-7856 24 Hour Total 8920-1920 6565-9333 2239-5873 24 Hour Total INTAKE PO 120 120 PO 120 120 Supplements (mL) 0 0 Shift Total 120 120 OUTPUT Urine 200 703 519 3714 200 200 Output ( External Collection Device 04/24/25 1430 [facility]) 200 274 613 4153 200 200 Shift Total 200 180 829 9058 200 200 Weight (kg) 64.6 64.6 64.6 64.6 64.6 64.6 64.6 64.6 MEDICATIONS: Current Facility-Administered Medications Medication Dose Route Frequency enoxaparin 30 mg injection (LOVENOX) 30 mg SUBCUTANEOUS q 12 HR levETIRAcetam 1,000 mg tab(s) (KEPPRA) 1,000 mg ORAL BID haloperidol lactate 5 mg short-acting injection (HALDOL) 5 mg INTRAVENOUS q 6 H PRN oxyCODONE IR 2.5 mg tab(s) (ROXICODONE) 2.5 mg ORAL q 6 H PRN acetaminophen 1,000 mg tab(s) (TYLENOL) 1,000 mg ORAL QID NaCl 0.9% iv flush bag 20 mL INTRAVENOUS PRN pravastatin 40 mg tab(s) (PRAVACHOL) 40 mg ORAL DAILY memantine 5 mg tab(s) (NAMENDA) 5 mg ORAL BID ondansetron 4 mg tab(s) (ZOFRAN) 4 mg ORAL q 6 H PRN Or ondansetron (PF) 4 mg injection (ZOFRAN) 4 mg INTRAVENOUS q 6 H PRN nicotine 14 mg/24 hr 1 patch (NICODERM) 1 patch TRANSDERMAL DAILY And nicotine -- REMOVE patch OTHER DAILY And nicotine - verify patch OTHER q 8 H Labs: Recent Labs 04/30/25 0746 04/29/25 0524 NA 140 140 K 3.8 4.1 CHLOR 107 107 CO2 22 20* BUN 13 17 CREAT 0.57* 0.67* GLUC 106* 102* ANION 11 13 CA 8.6 8.8 WBC 9.57 9.90 HB 14.6 14.6 HCT 44.1 45.0 PLT 254 250 PHYSICAL EXAM: Genl: Appears age appropriate. No acute distress. Resting comfortably. Head/Face: Normocephalic. Right eyebrow laceration. Eyes: EOMI. PERRLA. Sclera not icteric, not injected Neck: No mid-line masses. C-spine non-tender. Back: No midline tenderness, step-offs or deformities. Resp: Lungs CTAB. No wheezes, rales or rhonchi. Respiratory status stable on RA @ 97%. CVS: RRR as above. 2+ RA, DP, PT pulses bilaterally. GI: Abdomen is soft, non-tender, non-distended. No guarding or peritoneal signs. MSK: No gross deformities. No clubbing, cyanosis or edema. Normal AROM x 4. Skin: Warm and dry. Not jaundiced. Neuro: AANDOx2. Strength and sensation grossly intact in all extremities. MINER. GCS14. Psych: Normal mood. Normal affect. Appropriate insight into current situation. ASSESSMENT AND PLAN: Assessment Active Hospital Problems Diagnosis Date Noted SDH (subdural hematoma) (HCC) 04/24/2025 Community acquired pneumonia 04/29/2025 Leukocytosis 04/29/2025 Fall 04/29/2025 Nicotine use disorder, F17.2 04/25/2025 70-year old male s/p unwitnessed fall on 04/24/25 (Trauma transfer from [place]) Imaging performed: CT HNCAP, repeat CT brain (04/24) CT brain, US bilateral carotids (04/25) CXR (04/26) Traumatic Injuries: Small right temporal subdural hematoma with minimal extension superiorly above the temporal region 2.5 cm laceration above right eyebrow Operations/Procedures: Right eyebrow laceration repair with dermabond Care Plan: SDH Neurosurgery consulted, appreciate recommendations Repeat CT brain (04/25): Stable appearance of SDH Non-operative management Neuro checks every 4 hours Prophylactic Keppra 1,000 mg BID x 7 days (04/25-05/01) Okay for chemoprophylaxis 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 Follow-up with neurosurgery in 2 weeks with repeat imaging ?Syncope Fall unwitnessed Patient unable to recall moments prior to fall ECHO (04/25): EF 55%, LV/RV function normal, no significant vavular abnormalities US bilateral carotids (04/25): Patent bilateral ICA Orthostatic vital signs (04/28): Negative Continuous cardiac monitoring Leukocytosis WBCs 12.4 -> 9.9 -> 9.5 Afebrile, hemodynamically stable Respiratory status stable on RA UA (04/24): Negative CXR (04/26): No acute process Received empiric Ceftriaxone for CAP (04/26-04/30) Trend daily CBC Continue home medications as or (more content not included)... [facility] 04-30-2025 Note HNO ID: [id number] Author: BRANDIN BELL RN Service: Care Management Author Type: Registered Nurse Type: Care Mgt Progress Note Filed: 04/30/2025 09:17 Note Text: Attestation signed by Dino Hassan MD at 05/01/2025 8:28 AM Dino Hassan Physician Certification of Less Than 30 Days Skilled Needs Earliest Possible Discharge Date: 04/30/25 To the best of my knowledge, all information provided about the individual is a true and an accurate reflection of Patricio Padron's needs. I certify that following the inpatient level of care, a post-acute nursing facility stay is required for less than 30 days related to the condition(s) for which the patient was treated during the inpatient level of care: Principal Problem: SDH (subdural hematoma) (HCC) Active Problems: Nicotine use disorder, F17.2 Community acquired pneumonia Leukocytosis Fall Resolved Problems: * No resolved hospital problems. * Attending Physician: Dino Hassan MD [facility] 04-30-2025 Note HNO ID: [id number] Author: BRANDIN BELL RN Service: Care Management Author Type: Registered Nurse Type: Care Mgt Progress Note Filed: 04/30/2025 10:37 Note Text: CARE MANAGEMENT PROGRESS NOTE SERVICE DATE: 04/30/2025 SERVICE TIME: 9:12 AM LOS: 6 days Needs Prior to Discharge: To Be Determined, Accepting Facility, Precertification, Discharge Transportation CM spoke with patient via phone. FOC is [facility]. Facility updated with choice but was concerned about salvage determiner placement due to not having a bed at their ECF. Per patient , plan is to get patient home prior to SNF. Whether that be with home care or hospice will depend on how he progresses at SNF. If facility agreeable to plan, [employer] will be tasked to start auth and complete 7000. CM will continue to follow. [facility]. Once attestation note signed by team, 7000 can be completed SIGNATURE: Brandin Bell RN PATIENT NAME: Patricio Padron DATE: April 30, 2025 TIME: 9:12 AM [facility] 04-29-[address] received a phone call from the patient's [place]. She reported the patient had a fall last week and has been in the hospital. She was questioning if this ST goes to the rehab facilities. This ST advised her that rehab facilities have their own staff therapists and that the future scheduled home care ST visit will need to be canceled at this time. She questioned whether the patient would be able to have home care to help him adjust once he was discharged from rehab. This ST advised her home care could be a possibility if it is warranted and if the doctor places an order. She verbalized understanding and thanked this ST. documented in this encounter [facility] 04-29-2025 Patient's home Note This ST received a phone call from the patient's [place]. She reported the patient had a fall last week and has been in the hospital. She was questioning if this ST goes to the rehab facilities. This ST advised her that rehab facilities have their own staff therapists and that the future scheduled home care ST visit will need to be canceled at this time. She questioned whether the patient would be able to have home care to help him adjust once he was discharged from rehab. This ST advised her home care could be a possibility if it is warranted and if the doctor places an order. She verbalized understanding and thanked this ST. [facility] Work Phone: 04-29-2025 Note HNO ID: [id number] Author: SIDDHARTHA CLAY APRN.MECHANICAL INTERN Service: General Surgery Author Type: Nurse Practitioner Type: Progress Notes Filed: 04/29/2025 14:21 Note Text: Trauma Surgery Progress Note SERVICE DATE: 04/29/2025 Trauma Service Pager: For questions or concerns Mon-Fri 6a-5p please page [phone]. After 5pm and on Weekends and Holidays, please page [phone] if in ICU or [phone] if on RNF. SUBJECTIVE: No acute overnight events. Patient is alert and oriented x 2 (reoriented to time), FC, MINER. No new focal deficits. He denies any acute pain or discomfort at this time. He denies headache, dizziness, lightheadedness, changes in vision, numbness/tingling. Awaiting SNF placement. OBJECTIVE: Vitals: Temp (24hrs), Av.6 ?C (97.9 ?F), Min:36.3 ?C (97.4 ?F), Max:37 ?C (98.6 ?F) BP 106/72 Pulse 91 Temp 36.4 ?C (97.5 ?F) (Oral) Resp 18 Ht 165.1 cm (5' 5) Wt 64.6 kg (142 lb 6.7 oz) SpO2 97% BMI 23.70 kg/m? O2 Therapy: Room Air IANDO: Date 04/28/25 0700 - 04/29/25 0659 04/29/25 07 - 04/30/25 0659 Shift 5328-1323 4614-3430 1891-9774 24 Hour Total 5921-9004 0846-9695 4749-6677 24 Hour Total INTAKE Shift Total OUTPUT Urine 150 400 550 200 200 Urine Incontinence/Not Saved 2 x 1 x 1 x 4 x Output ( External Collection Device 04/24/25 1430 [facility]) 150 400 550 200 200 # of BMs Stool Incontinence 1 x 1 x Number of BMs 1 x 1 x Shift Total 150 400 550 200 200 Weight (kg) 64.6 64.6 64.6 64.6 64.6 64.6 64.6 64.6 MEDICATIONS: Current Facility-Administered Medications Medication Dose Route Frequency enoxaparin 30 mg injection (LOVENOX) 30 mg SUBCUTANEOUS q 12 HR cefTRIAXone iv piggyback 2 g in dextrose (iso-osmotic) 50 mL (ROCEPHIN) 2 g INTRAVENOUS q 24 H levETIRAcetam 1,000 mg tab(s) (KEPPRA) 1,000 mg ORAL BID haloperidol lactate 5 mg short-acting injection (HALDOL) 5 mg INTRAVENOUS q 6 H PRN oxyCODONE IR 2.5 mg tab(s) (ROXICODONE) 2.5 mg ORAL q 6 H PRN acetaminophen 1,000 mg tab(s) (TYLENOL) 1,000 mg ORAL QID NaCl 0.9% iv flush bag 20 mL INTRAVENOUS PRN pravastatin 40 mg tab(s) (PRAVACHOL) 40 mg ORAL DAILY memantine 5 mg tab(s) (NAMENDA) 5 mg ORAL BID ondansetron 4 mg tab(s) (ZOFRAN) 4 mg ORAL q 6 H PRN Or ondansetron (PF) 4 mg injection (ZOFRAN) 4 mg INTRAVENOUS q 6 H PRN nicotine 14 mg/24 hr 1 patch (NICODERM) 1 patch TRANSDERMAL DAILY And nicotine -- REMOVE patch OTHER DAILY And nicotine - verify patch OTHER q 8 H Labs: Recent Labs 04/29/25 0524 04/28/25 0455 NA 140 139 K 4.1 3.7 CHLOR 107 104 CO2 20* 24 BUN 17 13 CREAT 0.67* 0.64* GLUC 102* 97 ANION 13 11 CA 8.8 8.9 WBC 9.90 12.44* HB 14.6 14.5 HCT 45.0 43.9 PLT 250 255 PHYSICAL EXAM: Genl: Appears age appropriate. No acute distress. Resting comfortably. Head/Face: Normocephalic. Right eyebrow laceration. Eyes: EOMI. PERRLA. Sclera not icteric, not injected Neck: No mid-line masses. C-spine non-tender. Back: No midline tenderness, step-offs or deformities. Resp: Lungs CTAB. No wheezes, rales or rhonchi. Respiratory status stable on RA @ 97%. CVS: RRR as above. 2+ RA, DP, PT pulses bilaterally. GI: Abdomen is soft, non-tender, non-distended. No guarding or peritoneal signs. MSK: No gross deformities. No clubbing, cyanosis or edema. Normal AROM x 4. Skin: Warm and dry. Not jaundiced. Neuro: AANDOx2. Strength and sensation grossly intact in all extremities. MINER. GCS14. Psych: Normal mood. Normal affect. Appropriate insight into current situation. ASSESSMENT AND PLAN: Assessment Active Hospital Problems Diagnosis Date Noted SDH (subdural hematoma) (HCC) 04/24/2025 Nicotine use disorder, F17.2 04/25/2025 70-year old male s/p unwitnessed fall on 04/24/25 (Trauma transfer from [place]) Imaging performed: CT HNCAP, repeat CT brain (04/24) CT brain, US bilateral carotids (04/25) CXR (04/26) Traumatic Injuries: Small right temporal subdural hematoma with minimal extension superiorly above the temporal region 2.5 cm laceration above right eyebrow Operations/Procedures: Right eyebrow laceration repair with dermabond Care Plan: SDH Neurosurgery consulted, appreciate recommendations Repeat CT brain (04/25): Stable appearance of SDH Non-operative management Neuro checks every 4 hours Prophylactic Keppra 1,000 mg BID x 7 days (04/25-05/01) Okay for chemoprophylaxis 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 [facility] 04-29-2025 Note HNO ID: [id number] Author: BRANDIN BELL, JAY JAY Service: Care Management Author Type: Registered Nurse Type: Care Mgt Progress Note Filed: 04/29/2025 15:19 Note Text: CARE MANAGEMENT PROGRESS NOTE SERVICE DATE: 04/29/2025 SERVICE TIME: 10:57 AM LOS: 5 days Needs Prior to Discharge: To Be Determined, Accepting Facility, Bed Availability, Facility or Agency Choices, Precertification, Discharge Transportation CM spoke with patient via phone about SNF. She had questions about possible transition to LTC post SNF if needed. She asked CM to reach out to facilities to determine if they can accept for SNF and possible LTC if needed. She is not apposed to moving him after SNF but would like to stay at the same facility if possible. [facility], [facility] in [place], [facility], [facility], [facility] and [facility] at [place]. Per team, patient is medically ready for dc. He will need accepting facility, auth, 7000 and transport. CM will continue to follow. 1518-Patient accepted to [facility], [facility] and [facility]. CM updated patient . She is scheduling tours at the facilities to see which will be FOC SIGNATURE: Brandin Bell RN PATIENT NAME: Patricio Padron DATE: April 29, 2025 TIME: 10:57 AM [facility] 04-28-2025 Note HNO ID: [id number] Author: ERIKA MILTON MD Service: General Surgery Author Type: Physician Type: Progress Notes Filed: 04/28/2025 12:20 Note Text: Trauma Staff Addendum: PTD #3 GLF Now transferred to surgical floor No acute events or complaints Afebrile no hypoxia or hypotension No tachypnea, lungs CTAB Abdomen is soft, no distension or tympany Traumatic encephalopathy stable, TBI/SDH. Stable CT brain 04/25 Chemoprophylaxis started on 04/27 No clinical neurol changes concerning for progressive ICH after starting chemoppx Syncopal workup: ECHO and carotid duplex WNL. Orthostatics requested by nursing staff. Continued ABX for presumed CAP, day #3/ WBC decreased to 12.4 today PT/OT and ST consults Care management assisting with SNF discharge Category of injuries include: Patient Active Hospital Problem List: SDH (subdural hematoma) (HCC) Date Noted: 04/24/2025 Nicotine use disorder, F17.2 Date Noted: 04/25/2025 Attending Note I evaluated the patient and personally participated in the walker components. I agree with the resident's findings and plan as documented and have discussed the case and management of the patient's care with the resident. Erika Milton MD Department of General Surgery Division of Trauma, Critical Care, and Acute Care Surgery April 28, 2025 12:12 PM [facility] 04-26-2025 Note HNO ID: [id number] Author: JADE SHEFFIELD RN Service: Care Management Author Type: Registered Nurse Type: Care Mgt Progress Note Filed: 04/26/2025 16:12 Note Text: CARE MANAGEMENT PROGRESS NOTE SERVICE DATE: 04/26/2025 SERVICE TIME: 4:09 PM LOS: 2 days [place] of Choice Given: Yes Level of Care Discussed: [facility] Facility Financial Disclosure Provided: Yes Financial Disclosure Comments: CC Connected Care Provider List: [facility] Facility Provider list within the patient's requested geographic area shared with the patient/family: Yes within: 20 miles of zip code: [address] TC to pt's , [place] and discussed D/C plan for SNF, she is agreeable to consider at SNF at d/c. SNF choice listing created and taken to her in MICU. Explained to her the ratings listed. Will need to meet with her again to get her choices for referrals. Pt will need auth for D/C to SNF. SIGNATURE: Jade Sheffield RN PATIENT NAME: Patricio Padron DATE: April 26, 2025 TIME: 4:09 PM [facility] 04-26-2025 Note HNO ID: [id number] Author: ERIKA MILTON MD Service: General Surgery Author Type: Physician Type: Progress Notes Filed: 04/26/2025 12:35 Note Text: Trauma Surgery Progress Note SERVICE DATE: 04/26/2025 Trauma Service Pager: For questions or concerns Mon-Fri 6a-5p please page [phone]. After 5pm and on Weekends and Holidays, please page [phone] if in ICU or [phone] if on RNF. SUBJECTIVE: NAEON.New leukocytosis and mild non productive cough noted by nursing staff. No complaints this AM. Awaiting a bed on the floor. OBJECTIVE: Vitals: Temp (24hrs), Av.7 ?C (98 ?F), Min:36.4 ?C (97.5 ?F), Max:36.9 ?C (98.4 ?F) BP 104/75 Pulse 90 Temp 36.6 ?C (97.9 ?F) Resp 16 Ht 165.1 cm (5' 5) Wt 64.5 kg (142 lb 3.2 oz) SpO2 96% BMI 23.66 kg/m? O2 Therapy: Room Air IANDO: MEDICATIONS: Current Facility-Administered Medications Medication Dose Route Frequency levETIRAcetam 1,000 mg tab(s) (KEPPRA) 1,000 mg ORAL BID haloperidol lactate 5 mg short-acting injection (HALDOL) 5 mg INTRAVENOUS q 6 H PRN oxyCODONE IR 2.5 mg tab(s) (ROXICODONE) 2.5 mg ORAL q 6 H PRN phosphorus 250 mg tab(s) (K PHOS NEUTRAL) 250 mg ORAL PC and HS acetaminophen 1,000 mg tab(s) (TYLENOL) 1,000 mg ORAL QID NaCl 0.9% iv flush bag 20 mL INTRAVENOUS PRN pravastatin 40 mg tab(s) (PRAVACHOL) 40 mg ORAL DAILY memantine 5 mg tab(s) (NAMENDA) 5 mg ORAL BID ondansetron 4 mg tab(s) (ZOFRAN) 4 mg ORAL q 6 H PRN Or ondansetron (PF) 4 mg injection (ZOFRAN) 4 mg INTRAVENOUS q 6 H PRN potassium chloride 20-40 mEq oral powder (KLOR-CON) 20-40 mEq ORAL/FEEDING TUBE PRN Or potassium chloride iv piggyback 20 mEq/100 mL 20 mEq INTRAVENOUS PRN sodium phosphate 30 mmol in D5W 250 mL 30 mmol INTRAVENOUS PRN(NO DISPENSE) Or sodium phosphate 45 mmol in D5W 250 mL 45 mmol INTRAVENOUS PRN(NO DISPENSE) magnesium sulfate iv piggyback in sterile water 2 g 50 mL 2 g INTRAVENOUS PRN calcium gluconate iv piggyback 2 g in NaCl (iso-osmotic) 100 mL 2 g INTRAVENOUS PRN(NO DISPENSE) sodium chloride 0.9 % (flush) 2-10 mL (BD POSIFLUSH) 2-10 mL INTRAVENOUS DIRECTED PRN And perflutren lipid microspheres 1.1 mg/mL 1.3 mL injection (DEFINITY) 1.3 mL INTRAVENOUS DIRECTED PRN nicotine 14 mg/24 hr 1 patch (NICODERM) 1 patch TRANSDERMAL DAILY And nicotine -- REMOVE patch OTHER DAILY And nicotine - verify patch OTHER q 8 H Labs: Recent Labs 04/26/25 0429 04/25/25 0224 04/24/25 0809 NA 140 143 142 K 3.8 4.4 4.5 CHLOR 105 108* 106 CO2 21* 24 21* BUN 13 7* 7* CREAT 0.72* 0.67* 0.76 GLUC 125* 98 112* ANION 14 11 15 CA 9.2 9.1 9.2 MG 1.9 2.0 -- P 3.9 3.6 -- ALB -- -- 3.8* AST -- -- 20 ALT -- -- 19 ALKPHOS -- -- 87 TBILI -- -- 0.4 WBC 17.53* 11.91* 10.76 HB 15.6 14.9 15.3 HCT 46.3 44.3 45.6 PLT 250 233 234 INR -- -- 1.0 PHYSICAL EXAM: GENERAL: Alert. No distress. Resting comfortably. NEURO: AANDOx3. No focal neurologic deficits. Sensation grossly intact. HEENT: Normocephalic. Atraumatic. EOMI. LUNGS: Unlabored breathing. Equal excursion bilaterally. CARDIAC: Regular rate. Good perfusion throughout. ABDOMEN: Soft, non-tender, non-distended. No rebound or guarding. EXTREMITIES: MINER. No deformities. SKIN: No obvious jaundice or pallor. ASSESSMENT AND PLAN: Assessment Active Hospital Problems Diagnosis Date Noted SDH (subdural hematoma) (HCC) 04/24/2025 Nicotine use disorder, F17.2 04/25/2025 70 year old male with past medical history of previous ground-level falls, Alzheimer's, HLD presented to [facility] as a level 1 trauma following a ground-level fall from [place] secondary to SDH Imaging performed: - CT head at [place] - CThNCAP at [facility] Traumatic Injuries: - Small right subdural hematoma with relatively little associated mass effect Hospital Course: - 04/24: Fall, transferred to [facility] as a level gentleman was Care Plan: SDH, concern for syncopal fall -Repeat CTH stable -Holding chemo ppx - Q4 NC - Keppra twice daily for 7 days - NSGY final recs, anticipate SO and 2 week FU with outpatient CT - Speech recs for Cog - ECHO 04/25: EF 55% without significant valvular dysfunction - Carotid US 04/25 without evidence of significant disease - pain and nausea prn - pulmonary hygiene - progressive mobility - strict Is/Os - senna-s/miralax - continue daily labs New leukocytosis, non productive cough - CXR obtained 04/26: no obvious infiltrate or abnormality PPX: - DVT: None - Ulcer: none - Vit D level if > 65 yo: pending Consulted Services: - NSGY Dispo Planning: - PT/OT recs pending. Case management following. ncidentals: - Left renal calculi, bladder calculi - Cholelithiasis - Colonic diverticulosis - 12 mm nodular density in the right lung - Stable 7 cm nodule in the left upper lobe Assessment and plan d/w Dr. Milton SIGNATURE: Michelle Snider DO PATIENT NAME: Patricio Padron DATE: 04/26/2025 TIME: 6:50 AM Page (more content not included)... [facility] 04-26-2025 Note HNO ID: [id number] Author: MELANIE CUHNG PA-C Service: Neurosurgery Author Type: Physician Photocopying Machine Operator Type: Progress Notes Filed: 04/26/2025 07:14 Note Text: Neurosurgery Progress Note SERVICE DATE: 04/26/2025 SUBJECTIVE: NAEON OBJECTIVE: Vitals: Temp (24hrs), Av.7 ?C (98 ?F), Min:36.4 ?C (97.5 ?F), Max:36.9 ?C (98.4 ?F) BP 104/75 Pulse 90 Temp 36.6 ?C (97.9 ?F) Resp 16 Ht 165.1 cm (5' 5) Wt 64.5 kg (142 lb 3.2 oz) SpO2 96% BMI 23.66 kg/m? O2 Therapy: Room Air MEDICATIONS Current Facility-Administered Medications Medication Dose Route Frequency levETIRAcetam 1,000 mg tab(s) (KEPPRA) 1,000 mg ORAL BID haloperidol lactate 5 mg short-acting injection (HALDOL) 5 mg INTRAVENOUS q 6 H PRN oxyCODONE IR 2.5 mg tab(s) (ROXICODONE) 2.5 mg ORAL q 6 H PRN phosphorus 250 mg tab(s) (K PHOS NEUTRAL) 250 mg ORAL PC and HS acetaminophen 1,000 mg tab(s) (TYLENOL) 1,000 mg ORAL QID NaCl 0.9% iv flush bag 20 mL INTRAVENOUS PRN pravastatin 40 mg tab(s) (PRAVACHOL) 40 mg ORAL DAILY memantine 5 mg tab(s) (NAMENDA) 5 mg ORAL BID ondansetron 4 mg tab(s) (ZOFRAN) 4 mg ORAL q 6 H PRN Or ondansetron (PF) 4 mg injection (ZOFRAN) 4 mg INTRAVENOUS q 6 H PRN potassium chloride 20-40 mEq oral powder (KLOR-CON) 20-40 mEq ORAL/FEEDING TUBE PRN Or potassium chloride iv piggyback 20 mEq/100 mL 20 mEq INTRAVENOUS PRN sodium phosphate 30 mmol in D5W 250 mL 30 mmol INTRAVENOUS PRN(NO DISPENSE) Or sodium phosphate 45 mmol in D5W 250 mL 45 mmol INTRAVENOUS PRN(NO DISPENSE) magnesium sulfate iv piggyback in sterile water 2 g 50 mL 2 g INTRAVENOUS PRN calcium gluconate iv piggyback 2 g in NaCl (iso-osmotic) 100 mL 2 g INTRAVENOUS PRN(NO DISPENSE) sodium chloride 0.9 % (flush) 2-10 mL (BD POSIFLUSH) 2-10 mL INTRAVENOUS DIRECTED PRN And perflutren lipid microspheres 1.1 mg/mL 1.3 mL injection (DEFINITY) 1.3 mL INTRAVENOUS DIRECTED PRN nicotine 14 mg/24 hr 1 patch (NICODERM) 1 patch TRANSDERMAL DAILY And nicotine -- REMOVE patch OTHER DAILY And nicotine - verify patch OTHER q 8 H Labs: Recent Labs 04/26/25 0429 04/25/25 0224 04/24/25 0809 NA 140 143 142 K 3.8 4.4 4.5 CHLOR 105 108* 106 CO2 21* 24 21* BUN 13 7* 7* CREAT 0.72* 0.67* 0.76 GLUC 125* 98 112* ANION 14 11 15 CA 9.2 9.1 9.2 MG 1.9 2.0 -- P 3.9 3.6 -- ALB -- -- 3.8* AST -- -- 20 ALT -- -- 19 ALKPHOS -- -- 87 TBILI -- -- 0.4 WBC 17.53* 11.91* 10.76 HB 15.6 14.9 15.3 HCT 46.3 44.3 45.6 PLT 250 233 234 INR -- -- 1.0 Exam: GENERAL: Awake and alert; NAD NEURO: Orientedx2; speech clear and fluent; MINER STRENGTH: 5/5 throughout HEENT: Normocephalic; atraumatic; perrl/eomi; no facial droop LUNGS: Unlabored breathing CARDIAC: Rate and rhythm as above EXTREMITIES: No deformities, No edema SKIN: Skin color normal; Temperature normal; no rashes or lesions ASSESSMENT AND PLAN: Patricio Padron is a 70 year old male presenting as a trauma transfer from [place] following GLF. Found to have thin acute R temporal SDH. - Neuro as above - ok for RNF from NSGY standpoint - neuro checks q 4 - rCTH stable - keppra 1g bid x 7 days - HOB >30 - dvt ppx - ok for chem DVT ppx 48 hours post stable scan - Will plan for outpatient follow up in 2-4 weeks with [facility]; neurosurgery will sign off; reach out with questions as needed Parts of this note may have been copied from one of my previous notes and remain pertinent. The documentation has been reviewed and edited as necessary to support the clinical decision making for today's visit. SIGNATURE: Melanie Chung PA-C PATIENT NAME: Patricio Padron DATE: April 26, 2025 TIME: 6:28 AM Pager: [phone] [facility] 04-25-2025 Note HNO ID: [id number] Author: SHAYAN SMITH RN Service: ? Author Type: Registered Nurse Type: Progress Notes Filed: 04/25/2025 12:53 Note Text: Transitional Care Management (TCM) Inpatient Outreach N/A - No specialty updates needed Summary: Patient admitted to: [facility] Patient admitted on: (Not on file) Admitted for: SDH Mychart message sent. Outreach ended. Shayan Smith RN April 25, 2025 [facility] 04-25-2025 History of Present illness Narrative Transitional Care Management (TCM) Inpatient Outreach N/A - No specialty updates needed Summary: Patient admitted to: [facility] Patient admitted on: (Not on file) Admitted for: SDH Mychart message sent. Outreach ended. Shayan Smith RN April 25, 2025 documented in this encounter [facility] 04-25-2025 Note HNO ID: [id number] Author: ?, ?, ? Service: ? Author Type: Laborer [address] Type: Plan of Care Filed: 04/25/2025 11:34 Note Text: PHARMACY MEDICATION REVIEW Patient Name: Patricio Padron : 1955 The following medications were updated within the ENVIRONMENTAL ENGINEER SCIENTIST medication list: Medications ADDED to ENVIRONMENTAL ENGINEER SCIENTIST medication list Medications CHANGED on ENVIRONMENTAL ENGINEER SCIENTIST medication list Medications REMOVED from ENVIRONMENTAL ENGINEER SCIENTIST medication list acetaminophen (TYLENOL) 325 mg tablet Adjust Sig - Block E-Cancel cholecalciferol (VITAMIN D3) 50 mcg (2,000 unit) tablet Adjust Sig - Block E-Cancel Additional comments: I was able to talk with pt. about his home medications. He states he takes the 3 medications on the ENVIRONMENTAL ENGINEER SCIENTIST list below. I have removed 2 medications from the ENVIRONMENTAL ENGINEER SCIENTIST list. I have not added or changed any ENVIRONMENTAL ENGINEER SCIENTIST medications. Pt. states he uses [facility] and I found his RX medications filled there. Medication history completed by historian. No nursing follow up needed. The below information represents the best possible medication history: Yes Medication history completed by: Laborer Road: Yanet Baez (Appcelerator) Source of history: Patient: Reliability of source: Appears reliable, clearly identified: Medication name, Medication dose, Medication route, and Medication frequency and Pharmacy records: Epic e-script [facility] Medication nonadherence identified: No barriers noted Reconciliation completed: No, pharmacist not yet reviewed Patient interested in Bedside Delivery Services or using OP Pharmacy at discharge? No Preferred outpatient pharmacy: [facility] [address] [place] [address] Mariah [place] - [phone] Allergies: No Known Allergies Prior to Admission Medications Prescriptions Last Dose Informant Patient Reported? Taking? memantine (NAMENDA) 5 mg tablet No Yes Sig: Take 1 tablet by mouth two times a day. pravastatin (PRAVACHOL) 40 mg tablet No Yes Sig: Take 1 tablet by mouth once daily. terazosin (HYTRIN) 5 mg capsule No Yes Sig: Take 1 capsule by mouth daily at bedtime. Facility-Administered Medications: None Yanet Baez (Scouring Train Operator Chief) phone [phone] 04/25/2025 [facility] 04-25-2025 Note HNO ID: [id number] Author: YANET KRAMER MD Service: General Surgery Author Type: Resident Type: Progress Notes Filed: 05/14/2025 07:08 Note Text: Attestation signed by Yanet Kramer MD at 05/14/2025 7:08 AM Attending Note I evaluated the patient and personally participated in the walker components on 04/25/2025 I agree with the resident's findings and plan as documented and have discussed the case and management of the patient's care with the resident. Yanet Kramer MD Delayed entry Trauma Surgery Progress Note SERVICE DATE: 04/25/2025 Trauma Service Pager: For questions or concerns Mon-Fri 6a-5p please page [phone]. After 5pm and on Weekends and Holidays, please page [phone] if in ICU or [phone] if on RNF. SUBJECTIVE: NAEON. Patient denies any headache or pain this AM. Denies any nausea or vomiting. Tolerating a diet. OBJECTIVE: Vitals: Temp (24hrs), Av.5 ?C (97.7 ?F), Min:36.3 ?C (97.3 ?F), Max:36.6 ?C (97.9 ?F) BP 105/84 Pulse 94 Temp 36.6 ?C (97.9 ?F) (Oral) Resp 18 Ht 165.1 cm (5' 5) Wt 62.8 kg (138 lb 7.2 oz) SpO2 96% BMI 23.04 kg/m? O2 Therapy: Room Air IANDO: Date 04/24/25699 - 04/25/25 0659 04/25/25 07 - 04/26/25 0659 Shift 9703-7853 4210-4281 9421-3759 24 Hour Total 8222-2912 6594-6371 0529-1571 24 Hour Total INTAKE IV 200 200 Volume (mL) (calcium gluconate iv piggyback 2 g in NaCl (iso-osmotic) 100 mL) 200 200 Shift Total 200 200 OUTPUT Urine 200 200 Urine Incontinence/Not Saved 1 x 1 x 2 x Output ( External Collection Device 04/24/25 1430 [facility]) 200 200 Shift Total 200 200 Weight (kg) 61.5 61.5 62.8 62.8 62.8 62.8 62.8 62.8 MEDICATIONS: Current Facility-Administered Medications Medication Dose Route Frequency NaCl 0.9% iv flush bag 20 mL INTRAVENOUS PRN levETIRAcetam 1,000 mg injection (KEPPRA) 1,000 mg INTRAVENOUS BID pravastatin 40 mg tab(s) (PRAVACHOL) 40 mg ORAL DAILY memantine 5 mg tab(s) (NAMENDA) 5 mg ORAL BID ondansetron 4 mg tab(s) (ZOFRAN) 4 mg ORAL q 6 H PRN Or ondansetron (PF) 4 mg injection (ZOFRAN) 4 mg INTRAVENOUS q 6 H PRN oxyCODONE IR 5-10 mg tab(s) (ROXICODONE) 5-10 mg ORAL q 4 H PRN acetaminophen 975 mg tab(s) (TYLENOL) 975 mg ORAL QID potassium chloride 20-40 mEq oral powder (KLOR-CON) 20-40 mEq ORAL/FEEDING TUBE PRN Or potassium chloride iv piggyback 20 mEq/100 mL 20 mEq INTRAVENOUS PRN sodium phosphate 30 mmol in D5W 250 mL 30 mmol INTRAVENOUS PRN(NO DISPENSE) Or sodium phosphate 45 mmol in D5W 250 mL 45 mmol INTRAVENOUS PRN(NO DISPENSE) magnesium sulfate iv piggyback in sterile water 2 g 50 mL 2 g INTRAVENOUS PRN calcium gluconate iv piggyback 2 g in NaCl (iso-osmotic) 100 mL 2 g INTRAVENOUS PRN(NO DISPENSE) sodium chloride 0.9 % (flush) 2-10 mL (BD POSIFLUSH) 2-10 mL INTRAVENOUS DIRECTED PRN And perflutren lipid microspheres 1.1 mg/mL 1.3 mL injection (DEFINITY) 1.3 mL INTRAVENOUS DIRECTED PRN nicotine 14 mg/24 hr 1 patch (NICODERM) 1 patch TRANSDERMAL DAILY And nicotine -- REMOVE patch OTHER DAILY And nicotine - verify patch OTHER q 8 H haloperidol lactate 5 mg short-acting injection (HALDOL) 5 mg INTRAVENOUS q 6 H PRN Labs: Recent Labs 04/25/25 0224 04/24/25 0809 NA 143 142 K 4.4 4.5 CHLOR 108* 106 CO2 24 21* BUN 7* 7* CREAT 0.67* 0.76 GLUC 98 112* ANION 11 15 CA 9.1 9.2 MG 2.0 -- P 3.6 -- ALB -- 3.8* AST -- 20 ALT -- 19 ALKPHOS -- 87 TBILI -- 0.4 WBC 11.91* 10.76 HB 14.9 15.3 HCT 44.3 45.6 PLT 233 234 INR -- 1.0 PHYSICAL EXAM: GENERAL: Alert. No distress. Resting comfortably. NEURO: AANDOx3. No focal neurologic deficits. Sensation grossly intact. HEENT: Normocephalic. Atraumatic. EOMI. LUNGS: Unlabored breathing. Equal excursion bilaterally. CARDIAC: Regular rate. Good perfusion throughout. ABDOMEN: Soft, non-tender, non-distended. No rebound or guarding. EXTREMITIES: MINER. No deformities. SKIN: No obvious jaundice or pallor. ASSESSMENT AND PLAN: Assessment Active Hospital Problems Diagnosis Date Noted SDH (subdural hematoma) (HCC) 04/24/2025 Nicotine use disorder, F17.2 04/25/2025 70 year old male with past medical history of previous ground-level falls, Alzheimer's, HLD presented to [facility] as a level 1 trauma following a ground-level fall from [place] secondary to SDH Imaging performed: - CT head at [place] - CThNCAP at [facility] Traumatic Injuries: - Small right subdural hematoma with relatively little associated mass effect Hospital Course: - 04/24: Fall, transferred to [facility] as a level gentleman was Care Plan: SDH -Repeat CTH stable -Holding chemo ppx - Q1 NC - Keppra twice daily for 7 days - NSGY final recs, anticipate SO and 2 week FU with outpatient CTH - Speech recs for Cog (more content not included)... [facility] 04-25-2025 Note HNO ID: [id number] Author: MANUELA QURESHI MD Service: General Surgery Author Type: Resident Type: Plan of Care Filed: 04/25/2025 09:20 Note Text: Patient and seen at bedside to discuss CODE STATUS. Patient has PM Hx of dementia, which reports is currently at baseline prior to admission. Currently AANDOx2. Per , Patient's wishes would include a full code status including chest compressions, and intubation in the event of emergency. Code status updated in chart. Manuela Qureshi MD [facility] 04-25-2025 Note HNO ID: [id number] Author: JULIÁN SHORT DO Service: General Surgery Author Type: Resident Type: Plan of Care Filed: 04/25/2025 08:00 Note Text: SICU TRANSFER TO REGULAR NURSING FLOOR Patient seen and examined on rounds with SICU staff and is stable to transfer to [facility]. Accepted by Dr. Kramer to [facility] Please Sign Transfer note when bed is obtained and change assigned provider at that time* Orders signed and held in [facility]. BP: 113/74 Temp: 36.6 ?C (97.9 ?F) Temp src: Oral Pulse: 83 Resp: 15 O2 Therapy: Room Air SpO2: 97 % Course in SICU: Patient admitted to SICU on 04/24 after GLF. Patient had CT HNCAP found SDH. Repeat CTH stable. Patiet remains neuro intact and AANDOx2 which is baseline. Action Items - PT/OT/ UPHOLSTERY TECHNICIAN - NSGY f/u Lines Can we discontinue fish: Not Applicable Can we discontinue central line Not Applicable SIGNATURE: Julián Short DO PATIENT NAME: Patricio Padron DATE: April 25, 2025 [facility] 04-25-2025 Note Patient Outreach ([facility] VITOPATRICIO ([id number]) 1955 M Date Time Provider Department 04/25/25 SHAYAN SMITH During your visit today, we recorded the following information about you: Shayan Smith RN 04/25/2025 12:53 PM Signed Transitional Care Management (TCM) Inpatient Outreach N/A - No specialty updates needed Summary: Patient admitted to: [facility] Patient admitted on: (Not on file) Admitted for: SDH Mychart message sent. Outreach ended. Shayan Smith RN April 25, 2025 Allergies As of Date: 04/25/2025 (No Known Allergies) Date Reviewed: 04/25/2025 Reviewed by: Linn Aj RN - Fully Assessed Reason for Visit: Transition Of Care [8754] Cmt: Hospital reach in message Prescriptions as of 04/25/2025 - memantine (NAMENDA) 5 mg tablet Take 1 tablet by mouth two times a day. - terazosin (HYTRIN) 5 mg capsule Take 1 capsule by mouth daily at bedtime. - pravastatin (PRAVACHOL) 40 mg tablet Take 1 tablet by mouth once daily. Facility-Administered Medications as of 04/25/2025 - levETIRAcetam 1,000 mg tab(s) (KEPPRA) - haloperidol lactate 5 mg short-acting injection (HALDOL) - oxyCODONE IR 2.5 mg tab(s) (ROXICODONE) - phosphorus 250 mg tab(s) (K PHOS NEUTRAL) - acetaminophen 1,000 mg tab(s) (TYLENOL) - NaCl 0.9% iv flush bag - pravastatin 40 mg tab(s) (PRAVACHOL) - memantine 5 mg tab(s) (NAMENDA) - ondansetron 4 mg tab(s) (ZOFRAN) - ondansetron (PF) 4 mg injection (ZOFRAN) - potassium chloride 20-40 mEq oral powder (KLOR-CON) - potassium chloride iv piggyback 20 mEq/100 mL - sodium phosphate 30 mmol in D5W 250 mL - sodium phosphate 45 mmol in D5W 250 mL - magnesium sulfate iv piggyback in sterile water 2 g 50 mL - calcium gluconate iv piggyback 2 g in NaCl (iso-osmotic) 100 mL - sodium chloride 0.9 % (flush) 2-10 mL (BD POSIFLUSH) - perflutren lipid microspheres 1.1 mg/mL 1.3 mL injection (DEFINITY) - nicotine 14 mg/24 hr 1 patch (NICODERM) - nicotine -- REMOVE patch - nicotine - verify patch Meds Comments as of 04/09/2025: Namenda pravastatin Hytrin HYTRINHYTRIN Problem List As Of Date 04/25/2025 Noted Resolved Benign non-nodular prostatic hyperplasia with [...] myelopathy (HCC) [G95.9] 12/30/2023 Prediabetes [R73.03] 07/02/2024 SDH (subdural hematoma) (HCC) [S06.5XAA] 04/24/2025 Nicotine use disorder, F17.2 [F17.200] 04/25/2025 Encounter Status:Closed by SHAYAN SMITH on 04/25/25 [facility] 04-24-2025 Note HNO ID: [id number] Author: VASQUEZ TRACY RN Service: Care Management Author Type: Registered Nurse Type: Care Mgt Initial Assessment Filed: 04/24/2025 15:38 Note Text: CARE MANAGEMENT: ASSESSMENT AND DISCHARGE PLAN SERVICE DATE: April 24, 2025 SERVICE TIME: 1:00pm PCP: Yanet Adams MD Primary Contact: Extended Emergency Contact Information Primary Emergency Contact: Chalo Padron Address: [address] [place] [address] Mobile Relation: Spouse Secondary Emergency Contact: VitoMayank Address: [address] [place] [address] Mobile Relation: Son Admission Status: Inpatient Insurance Provider: [employer] PPO Discharge Planning requested by: Per Department Practice Potential Transition Plans To Be Determined Advance Directives Current Advance Directive: Health Care Power of Contact Center Associate In Chart: Yes Up To Date and Valid: Yes Current Living Arrangements and Support Lives with: Spouse/significant other Type of Residence: Private Residence (House) Does the patient have to climb stairs at home?: No Support: Children, Social Agency, Home care staff How do you manage to accomplish the following: Dependent: Ambulation, Bathe/Shower, Dress, Meals/Meal Prep, Going to the bathroom, Medication Management, Transportation to appointments/community Current Services/Equipment Current Post-Acute Service(s): DME Current DME Type: Grab bars, Rolling walker, Walker, Wheelchair-manual Discharge Planning Patient Goal(s): Rogers of Choice Explained: Rogers of Choice Given: No Reason Not Given: Unable to complete with this assessment - revisit Are you interested in bedside delivery of your medications? No Discharge Planning Participant(s): Spouse/significant other Patient/Family Comments: Caregiver Assessment: Caregiver is ready, willing and able to meet the patient's needs as recommended by the inter-professional team: Yes Name of Caregiver: Transport at Discharge: Transportation Arrangements: To Be Determined Needs Prior to Discharge: Needs Prior to Discharge: None Post-Acute Discharge Plan: Per chart review, patient is 70 year old male with a past medical history of HLD and dementia presents as a level 1 trauma transfer from [place] secondary to SDH. Met with patient and at bedside; introduced self and CM role. Prior to admission, patient was dependent with ADLs due to dementia. is the primary caregiver and has just hired an aide from [facility] once per week to help her become accostomed to another person caring for him at home. She realizes she is going to need additional hours soon. She is unsure if she has applied for area on aging. A referral was sent to them to contact . She prefers that he remains at home under her care but would be willing to look at other DC plans if recommended - she does realize that he is going to require placement soon due to his frequent falls. During most recent fall he was sleeping with her and she did not wake up when he got out of bed to use the restroom. She is looking into getting a bed alert mat for their bed. He will be admitted into ICU Awaiting PT/OT recommendations for post-acute needs. CM will continue to follow and place referrals as appropriate. SIGNATURE: Vasquez Tracy RN PATIENT NAME: Patricio Padron DATE: April 24, 2025 TIME: 3:10 PM [facility] 04-24-2025 Note HNO ID: [id number] Author: PLACIDO DEMPSEY APRN.SAMARIA Service: ? Author Type: Nurse Practitioner Type: Progress Notes Filed: 04/24/2025 09:01 Note Text: Critical Care Transport Note Patient Name: Patricio Padron Service Date: 04/24/2025 Referring Physician: Rich Accepting Physician: Aaron Referring Facility: [facility]: ER Accepting Facility: [facility]: ER SUBJECTIVE/CHIEF COMPLAINT: I fell REASON FOR TRANSPORT: Level 1 trauma services unavailable at the sending facility. History of Present Illness: The following history is what was known to CCT team at time of given care and summarized through review of available medical records, patient/family interview and from referring nursing report. Patricio Padron is a 70 year old male with a past medical history significant for ICH, dementia, HLD. He presented to [facility] on 04/24/2025 for evaluation of fall. Per report, pt fell this morning around 0445 striking his forehead. No LOC as witnessed by pt's . On ER evaluation, A/O x2 (person/place), however, this is normal for pt given h/o dementia. CT head performed noting right frontoparietal SDH w/ 5mm midline shift. Not taking any anticoagulants at this time. Pt loaded w/ Keppra for seizure prophylaxis. At this time [facility] was consulted and pt accepted for emergent transfer. At this time, the physician managing the patient requested transfer to [facility] for tertiary and/or quaternary services unavailable at the referring facility. Patient condition at time of exam was: Acutely ill and critically ill. Due to the unique circumstances of the patient, it was determined that this was the closest, most appropriate facility by referring physician. The physician managing the patient requested the [facility] Critical Care Transport Team transport and treat the patient for the purpose of tertiary care, evaluation, and management of his neuro-trauma condition(s). Air medical transport was requested to reduce the mol-zg-cansouad time (12 minutes by air vs. approximately 43 minutes by ground) with the potential for increased ground transport time secondary to: traffic congestion and distance between facilities and the patient's condition requiring an emergent procedure or evaluation not available at the referring facility. REVIEW OF SYSTEMS: - CONSTITUTIONAL: Denies fevers, chills, nightsweats, activity change or unintended weight loss. - HEENT: Denies nasal congestion/sinus symptoms or problematic allergy issues. - CV: Denies chest pain, dyspnea, palpitations, orthopnea, PND or new/worsening peripheral edema. - PULM: Denies dyspnea, cough, or chest tightness. - GI: Denies nausea or vomiting, ABD pain, distension, blood in stool or trouble swallowing. - : Denies dysuria, frequency, urgency, hematuria, or flank pain. - NEURO: Denies SAUCEDA, lightheadedness, dizziness, blurred vision, diplopia, peripheral weakness/paresthesia's, or syncope. - MUSC-SKEL: Denies muscle aches/pains, neck pain or stiffness or joint pains/swelling. - PSY: No concerns regarding depression, anxiety or panic. - SKIN: Denies color change, pallor or rash. PAST MEDICAL HISTORY: Dementia, Hyperlipidemia PAST MEDICAL HISTORY Diagnosis Date Arthritis BPH with obstruction/lower urinary tract symptoms Renal lesion 07/26/2023 Rosacea Subarachnoid hemorrhage (HCC) 08/11/2023 PAST SURGICAL HISTORY: PAST SURGICAL HISTORY Procedure Laterality Date PAST SURGICAL HISTORY OF flexible cystoscopy PAST SURGICAL HISTORY OF 1958 tonsillectomy PAST SURGICAL HISTORY OF 2017 left eye surgery PAST SURGICAL HISTORY OF 2023 Surgery to drain hematoma on brain- not successful TRANSURETHRAL ELEC-SURG PROSTATECTOM N/A 08/18/2021 TRANSURETHRAL ELEC-SURG PROSTATECTOM 2019 ALLERGIES: PCN SOCIAL HISTORY: Social History Tobacco Use Smoking status: Every Day Current packs/day: 0.50 Average packs/day: 0.5 packs/day for 20.0 years (10.0 ttl pk-yrs) Types: Cigarettes Smokeless tobacco: Former Vaping Use Vaping status: Never Used Substance Use Topics Alcohol use: Not Currently Drug use: Never HOME MEDICATIONS: Unknown (no list provided). Medications Administered by Referring Facility: - Keppra 1000mg IV OBJECTIVE: Recent Labs, Diagnostics AND Procedure Reports reviewed as available. Referring Facility Labs No lab data provided for review. Diagnostics AND Procedure Reports ECG: Personally Reviewed - SR on bedside tele/CCT monitor. CT Scan (Head): Radiology Interpretation - Right frontalparietal subdural hemorrhage w/ 5mm midline shift. Invasive Lines/Devices/Tubes Placed by Referring Facility: - PIV x1 PHYSICAL EXAM: Upon CCT Arrival at Referring Facility Vital Signs: HR 82bpm, BP 118/75mmHg, RR 22, SpO2 97% Oxygen/Ventilator Settings: RA Primary Survey: Airway/C-Spine: Patent, able to speak without d (more content not included)... [facility] 04-24-2025 History of Present illness Narrative Images from the original note were not included. Critical Care Transport Note Patient Name: Patricio Padron Service Date: 04/24/2025 Referring Physician: Rich Accepting Physician: Aaron Referring Facility: [facility]: ER Accepting Facility: [facility]: ER SUBJECTIVE/CHIEF COMPLAINT: I fell REASON FOR TRANSPORT: Level 1 trauma services unavailable at the sending facility. History of Present Illness: The following history is what was known to CCT team at time of given care and summarized through review of available medical records, patient/family interview and from referring nursing report. Patricio Padron is a 70 year old male with a past medical history significant for ICH, dementia, HLD. He presented to [facility] on 04/24/2025 for evaluation of fall. Per report, pt fell this morning around 0445 striking his forehead. No LOC as witnessed by pt's . On ER evaluation, A/O x2 (person/place), however, this is normal for pt given h/o dementia. CT head performed noting right frontoparietal SDH w/ 5mm midline shift. Not taking any anticoagulants at this time. Pt loaded w/ Keppra for seizure prophylaxis. At this time [facility] was consulted and pt accepted for emergent transfer. At this time, the physician managing the patient requested transfer to [facility] for tertiary and/or quaternary services unavailable at the referring facility. Patient condition at time of exam was: Acutely ill and critically ill. Due to the unique circumstances of the patient, it was determined that this was the closest, most appropriate facility by referring physician. The physician managing the patient requested the [facility] Critical Care Transport Team transport and treat the patient for the purpose of tertiary care, evaluation, and management of his neuro-trauma condition(s). Air medical transport was requested to reduce the zzw-az-jdqloqgm time (12 minutes by air vs. approximately 43 minutes by ground) with the potential for increased ground transport time secondary to: traffic congestion and distance between facilities and the patient's condition requiring an emergent procedure or evaluation not available at the referring facility. REVIEW OF SYSTEMS: - CONSTITUTIONAL: Denies fevers, chills, nightsweats, activity change or unintended weight loss. - HEENT: Denies nasal congestion/sinus symptoms or problematic allergy issues. - CV: Denies chest pain, dyspnea, palpitations, orthopnea, PND or new/worsening peripheral edema. - PULM: Denies dyspnea, cough, or chest tightness. - GI: Denies nausea or vomiting, ABD pain, distension, blood in stool or trouble swallowing. - : Denies dysuria, frequency, urgency, hematuria, or flank pain. - NEURO: Denies SAUCEDA, lightheadedness, dizziness, blurred vision, diplopia, peripheral weakness/paresthesia's, or syncope. - MUSC-SKEL: Denies muscle aches/pains, neck pain or stiffness or joint pains/swelling. - PSY: No concerns regarding depression, anxiety or panic. - SKIN: Denies color change, pallor or rash. PAST MEDICAL HISTORY: Dementia, Hyperlipidemia PAST MEDICAL HISTORY Diagnosis Date Arthritis BPH with obstruction/lower urinary tract symptoms Renal lesion 07/26/2023 Rosacea Subarachnoid hemorrhage (HCC) 08/11/2023 PAST SURGICAL HISTORY: PAST SURGICAL HISTORY Procedure Laterality Date PAST SURGICAL HISTORY OF flexible cystoscopy PAST SURGICAL HISTORY OF 1958 tonsillectomy PAST SURGICAL HISTORY OF 2017 left eye surgery PAST SURGICAL HISTORY OF 2023 Surgery to drain hematoma on brain- not successful TRANSURETHRAL ELEC-SURG PROSTATECTOM N/A 08/18/2021 TRANSURETHRAL ELEC-SURG PROSTATECTOM 2019 ALLERGIES: PCN SOCIAL HISTORY: Social History Tobacco Use Smoking status: Every Day Current packs/day: 0.50 Average packs/day: 0.5 packs/day for 20.0 years (10.0 ttl pk-yrs) Types: Cigarettes Smokeless tobacco: Former Vaping Use Vaping status: Never Used Substance Use Topics Alcohol use: Not Currently Drug use: Never HOME MEDICATIONS: Unknown (no list provided). Medications Administered by Referring Facility: - Keppra 1000mg IV OBJECTIVE: Recent Labs, Diagnostics & Procedure Reports reviewed as available. Referring Facility Labs No lab data provided for review. Diagnostics & Procedure Reports ECG: Personally Reviewed - SR on bedside tele/CCT monitor. CT Scan (Head): Radiology Interpretation - Right frontalparietal subdural hemorrhage w/ 5mm midline shift. Invasive Lines/Devices/Tubes Placed by Referring Facility: - PIV x1 PHYSICAL EXAM: Upon CCT Arrival at Referring Facility Vital Signs: HR 82bpm, BP 118/75mmHg, RR 22, SpO2 97% Oxygen/Ventilator Settings: RA Primary Survey: Airway/C-Spine: Patent, able to speak without difficulty. No spinal precautions in place. Breathing: Spontaneous, easy and regular. Trachea midline. Lung sounds clear bilaterally w/ equal chest rise/fall on RA. Circulation: Strong carotid, radial and femoral pulses. No significant bleeding noted. Skin W/D, well perfused. Adequate IV access obtained. Disability: No gross neuro deficits noted, following basic commands. Glascow Coma Score: Eye response: spontaneous = 4 Verbal response: confused = 4 Motor response: obeys commands =6 GCS Total: 14 Exposure: All clothing removed. Warming lights and/or blankets placed on patient. Secondary Survey: General: 70 year old male, no distress, no cervical spine precautions in place. HEENT: - Head: Normocephalic. Small laceration above right eyebrow (repaired). No further abrasions, contusions, crepitus, swelling or tenderness noted. - Eyes: PERRL 3mm bilaterally, EOMI. - Ears: No external trauma or drainage noted. TM's not assessed. - Nose: No external trauma, normal mucosa. - Mouth/Neck/Throat: No obvious trauma. No loose teeth or malocclusion. No step-off/deformity or midline tenderness to cervical spine. Trachea midline, no crepitus or JVD. Chest: Lungs CTA bilaterally w/ good air movement and equal chest rise. Normal S1/S2, no murmurs/gallops/rubs. No abrasions, contusions, crepitus, swelling or tenderness noted. Abdomen: Soft, non-tender, non-distended. No abrasions, contusions, crepitus, swelling or tenderness noted. Pelvis: Stable/intact. No abrasions, contusions, crepitus, swelling or tenderness noted. No bleeding noted. Extremities: Normal ROM x4 with normal sensation. Pulse 2+ x4. No deformities, abrasions, contusions, crepitus, swelling or tenderness noted. Back/Spine: No midline tenderness, step-off or deformity of the thoracic/lumbar/sacral spine. No abrasions, contusions, crepitus, swelling or tenderness of the posterior noted. Skin: Warm/dry, intact, well perfused. Normal capillary refill. CRITICAL CARE COURSE Upon bedside arrival at referring facility the patient was assessed and detailed physical exam performed. Initial exam findings as described above. The patient was placed on the transport monitor and all transport equipment transitioned in standard fashion. The patient was transferred to the transport cot, transported to the Aircraft and loaded without incident. The patient was medically managed, monitored, and reassessed during transport. Medications Managed & Administered by CCT: None Procedures Performed by CCT: None ASSESSMENT/PLAN: In short, Patricio Padron is a 70 year old male who presented to [facility] s/p fall. Struck head w/ no LOC (witnessed fall). CT head noted right frontalpariental SDH w/ 5mm MLS. For CCT: stable. No focal-neuro deficits noted, is A/O x2 (person/place) however, per this confusion happens at baseline and is unchanged per bedside RN from initial assessment. Exam essentially benign (see above). concerned that pt may be developing PNA as he has been having difficulty swallowing and now has new productive cough, will need possible further workup. Transfer pt to [facility] for further trauma management. Traumatic Subdural Hemorrhage - Presented s/p fall, found to have small subdural hemorrhage. - Given Keppra load in ER. - Close HD monitoring in transport. - Avoid hypotension, volume resuscitate as needed, goal normal peripheral perfusion. - Expedite transfer to [facility] for emergent Level 1 trauma evaluation and possible intervention. The transport was completed without significant incident or change in the patient's status. The patient was transported to [facility] by Rotor (Helicopter) for tertiary and/or quaternary trauma evaluation and management of his Emergent traumatic condition(s). Upon arrival to the receiving facility, a slyl-su-cimg report was given to bedside nursing staff in [facility] ER and Trauma Team. Patient care was transferred. The patient condition was Acutely Ill at the time of transfer. Vital Signs at time care transferred to the receiving facility unit: HR 90bpm, Rhythm SR, BP 119/80 mmHg, RR 20, SpO2 94% (RA) SPECIAL EQUIPMENT: None MODE OF TRANSPORT: Rotor (Helicopter) CRITICAL CARE TIME: I personally performed 25 minutes of critical care time exclusive of separately billable procedures, ambulance charges and treating other patients. This was necessary to treat or prevent further deterioration of the following condition(s): Multiple trauma which the patient had and/or had a high probability of suddenly developing. SIGNATURE: Placido Dempsey APRN.MECHANICAL INTERN Acute Care Nurse Practitioner [facility] Critical Care Transport Team documented in this encounter [facility] 04-24-2025 Radiology Diagnostic study note [facility] Imaging Services [address] [place] [address] Brain/Head without Contrast MR#: [id number] Acct: [id number] Name: PATRICIO PADRON Rep #: [id number] 1 : 1955 M 70 From: Kennedy Prado MD PCP: Dr. Yanet Adams MD Status: REG E R Study:Brain/Head without Contrast Date of Exa m: 04/24/25 Exam# [id number] Ordering Dr: Darnell Delaney DO ADDENDUM by Dr. Giselle Prado MD on 04/24/25 at 0629 Review of the images with Dr. Delaney was performed. There is a thin acute/subacute subdural hematoma over the right frontotemporal region. There is no significant mass effect. There is 5 mm of midline shift. IMPRESSION 1. Thin, acute/subacute subdural hematoma over the right frontotemporal region causing 5 mm of midline shift. 2. Cerebral atrophy. 3. Chronic left periventricular lacunar infarction. Note: The findings were discussed with Dr. Delaney in the [facility] emergency department on the morning of 04/24/2025 at 6:20 a.m.. Reading Location: [id number] 04/24/25 0629 Date cc: Dr. Mat Delaney DO; Dr. Yanet Adams MD ~* Signed PROCEDURE: BRAIN/HEAD WITHOUT CONTRAST 04/24/2025 REASON FOR EXAM: HEAD INJURY TECHNIQUE: BRAIN/HEAD WITHOUT CONTRAST Coronal and Sagittal reconstruction series were provided. One or more dose reduction techniques were used (e.g., Automated exposure control, adjustment of the mA and/or kV according to patient size, use of iterative reconstruction technique. RADIATION DOSE SUMMARY: CTDlvol: 65.50 mGy DLP: 1296.10 mGycm COMPARISON: CT head without contrast, 08/13/2024 FINDINGS: There is moderate diffuse cerebral atrophy with concomitant ventriculomegaly. There is focal low-density of the periventricular white matter of the left frontal lobe consistent with a chronic lacunar infarction. There is calcific vascular disease of the intracranial portion of both internal carotid arteries. There is no evidence of acute intracranial hemorrhage or infarction. There are no abnormal intracranial masses or mass effects. The basilar cisterns are unremarkable. The skull base and calvarium are normal. There is nasal septal deviation to theright. There is mucoperiosteal thickening of both frontal sinuses and multiple ethmoidal air cells bilaterally. There are multiple fluid-filled mastoid air cells on the right. The intraorbital contents are normal. The visualized extracranial soft tissues are normal. CT/Brain/Head without Contrast IMPRESSION: 1. No evidence of acute intracranial pathology. 2. Cerebral atrophy. 3. Chronic left periventricular lacunar infarction. Reading Location: [id number] CC: Dr. Mat Delaney DO; Dr. Yanet Adams MD ~ Septic Tank Setter: Signed [facility] Work Phone: 04-24-2025 Radiology Diagnostic study note [facility] Imaging Services [address] [place] [address] [id number] Spine Cervical without Contras MR#: [id number] Acct: [id number] Name: PATRICIO PADRON Rep #: [id number] 3 : 1955 M 70 From: Kennedy Prado MD PCP: Dr. Yanet Adams MD Status: REG E R Study:Spine Cervical without Contras Date of Exam: 04/24/25 Exam# [id number] Ordering Dr: Darnell Delaney DO PROCEDURE: SPINE CERVICAL WITHOUT CONTRAS 04/24/2025 REASON FOR EXAM: NECK INJURY TECHNIQUE: SPINE CERVICAL WITHOUT CONTRAS Coronal and Sagittal reconstruction series were provided. One or more dose reduction techniques were used (e.g., Automated exposure control, adjustment of the mA and/or kV according to patient size, use of iterative reconstruction technique. RADIATION DOSE SUMMARY: CTDlvol: 65.55 mGy DLP: 1296.10 mGycm COMPARISON: CT cervical spine, 08/13/2024 FINDINGS: There is no evidence of fracture or subluxation. 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 There is degenerative disc disease C3-4 through C7-T1 with narrowing of the intervertebral disc spacesand marginal osteophytes. There is multilevel facet arthropathy. There is degenerative grade 1 anterolisthesis of C7 on T1. There is no abnormal mass effect on the spinal canal or the visualized intracranial contents. Soft Tissues: The lung apices are clear. The soft tissues of the neck have a normal unenhanced appearance. Other: There is calcific vascular disease of the intracranial portion of both internal carotid arteries. There is calcific vascular disease of the left carotid bifurcation. There are few fluid-filled mastoid air cells bilaterally. CT/Spine Cervical without Contras IMPRESSION: 1. No evidence of acute bony injury. 2. Diffuse degenerative disc disease. 3. Diffuse facet arthropathy with degenerative anterolisthesis of C7 on T1. 4. Other findings as noted. Reading Location: [id number] CC: Dr. Mat Delaney DO; Dr. Yanet Adams MD ~ Septic Tank Setter: Signed [facility] Work Phone: 04-22-2025 Miscellaneous Notes SITUATION: spouse present during today's visit. patient and caregiver reports the following changes since the last homecare visit: medications/allergies--None, falls--1. caregiver reports palliative care has been coming to their home starting in March, and she is able to ask for more assistance if needed. The patient's caregiver also reported that he choked the other day on regular liquids. The caregiver reported a fall (fall report copied from falls section of this note): This patient's reported another fall. In the middle of the night the patient got up to use the restroom. He had his rollator with him, but as he was turning to sit on the toilet, he lost his balance and sat hard, hitting his back hard on the back of the toilet. The patient's reported that she was in bed and did not visually witness the fall, but the fall made a lot of noise at which time she went in to assist him. He did not fall to the ground. He was able to get up from the toilet on his own. No injuries reported. It is noted that the patient has supportive scaffolding around the toilet. The patient's reported PT discharged to the patient last week. Caregiver reports the patient has an upcoming appointment with the neurologist on 05/10/25. BACKGROUND: Diagnoses (reason for Home Care): Dysphagia, unspecified Any one of the comorbidities from the list below may have a deleterious effect on the primary home care diagnosis.- (this is from problem list in snapshot)- .prob ACTIVE PROBLEM LIST Frequent falls Benign Non-Nodular Prostatic Hyperplasia With Lower Urinary Tract Symptoms Bladder Neck Obstruction Rosacea, Acne Pure Hypercholesterolemia S/P Turp Mild Cognitive Impairment Ataxia, Unspecified Personal History of Traumatic Brain Injury History of Subdural Hematoma History of Subarachnoid Hemorrhage Cervical Myelopathy (Hcc) Prediabetes Prior level of function: Caregiver assistance needed, slow decline in functional abilities and cognition Diet at current time regular easy to chew solids, regular liquids Objective: Patient presents with: dysphagia and cognitive linguistic deficits (see assessment for full details) ASSESSMENT: Patient scored 17/30 on the SLUMS this date. This score falls within the dementia score range (scores of 1 20/30 fall within the dementia score range). Patient swallowing skills assessed with regular liquids via prepackaged water bottle and via straw. Patient required simple verbal cues to utilize recommended compensatory strategies. No overt signs or symptoms of aspiration or penetration observed this date with use of strategies. Patient demonstrated a need for further skilled ST services for instruction and education related to dysphagia treatment and cognitive linguistic skills. Plan of care and visit frequency Reviewed with patient and caregiver. Home care admission booklet reviewed and left in home, consents reviewed and signed, copy left in home. Current Discharge plan: family support; anticipated discharge date 05/16/2025. RECOMMENDATION: Recommend speech therapy intervention Other: Continue POC (1 ST visit remaining) to focus on dysphagia treatment, cognitive linguistic skills and dementia management. documented in this encounter [facility] 04-22-2025 Patient's home Note SITUATION: spouse present during today's visit. patient and caregiver reports the following changes since the last homecare visit: medications/allergies--None, falls--1. caregiver reports palliative care has been coming to their home starting in March, and she is able to ask for more assistance if needed. The patient's caregiver also reported that he choked the other day on regular liquids. The caregiver reported a fall (fall report copied from falls section of this note): This patient's reported another fall. In the middle of the night the patient got up to use the restroom. He had his rollator with him, but as he was turning to sit on the toilet, he lost his balance and sat hard, hitting his back hard on the back of the toilet. The patient's reported that she was in bed and did not visually witness the fall, but the fall made a lot of noise at which time she went in to assist him. He did not fall to the ground. He was able to get up from the toilet on his own. No injuries reported. It is noted that the patient has supportive scaffolding around the toilet. The patient's reported PT discharged to the patient last week. Caregiver reports the patient has an upcoming appointment with the neurologist on 05/10/25. BACKGROUND: Diagnoses (reason for Home Care): Dysphagia, unspecified Any one of the comorbidities from the list below may have a deleterious effect on the primary home care diagnosis.- (this is from problem list in snapshot)- .prob ACTIVE PROBLEM LIST Frequent falls Benign Non-Nodular Prostatic Hyperplasia With Lower Urinary Tract Symptoms Bladder Neck Obstruction Rosacea, Acne Pure Hypercholesterolemia S/P Turp Mild Cognitive Impairment Ataxia, Unspecified Personal History of Traumatic Brain Injury History of Subdural Hematoma History of Subarachnoid Hemorrhage Cervical Myelopathy (Hcc) Prediabetes Prior level of function: Caregiver assistance needed, slow decline in functional abilities and cognition Diet at current time regular easy to chew solids, regular liquids Objective: Patient presents with: dysphagia and cognitive linguistic deficits (see assessment for full details) ASSESSMENT: Patient scored 17/30 on the SLUMS this date. This score falls within the dementia score range (scores of 1 20/30 fall within the dementia score range). Patient swallowing skills assessed with regular liquids via prepackaged water bottle and via straw. Patient required simple verbal cues to utilize recommended compensatory strategies. No overt signs or symptoms of aspiration or penetration observed this date with use of strategies. Patient demonstrated a need for further skilled ST services for instruction and education related to dysphagia treatment and cognitive linguistic skills. Plan of care and visit frequency Reviewed with patient and caregiver. Home care admission booklet reviewed and left in home, consents reviewed and signed, copy left in home. Current Discharge plan: family support; anticipated discharge date 05/16/2025. RECOMMENDATION: Recommend speech therapy intervention Other: Continue POC (1 ST visit remaining) to focus on dysphagia treatment, cognitive linguistic skills and dementia management. [facility] Work Phone: 04-17-2025 Miscellaneous Notes SITUATION: spouse present during today's visit. patient reports the following since the last homecare visit: medications/allergies--no changes, no fall. caregiver reports that she is realistic that he is not going to improve much but the goal is to keep him from getting worse . BACKGROUND: Diagnoses (reason for Home Care): dysphagia Weight Bearing/Precaution Changes: falls ASSESSMENT: Focus of visit performed and progressed HEP for strengthening and balance. Seated rest breaks as needed when fatigued. Denies pain. Discussed plans for his decline as the dementia worsens and the spinal compression increases. Spouse has started having private duty care 1xwk for 2hrs and will increase as necessary . Also discussed need for WW when his balance is not good enough for the RW. Also need for transport w/c in the future Functional performance at discharge - bed mobility independent, transfers supervision, ambulation supervision and Ramp supervision Plan of care, goals, and discharge reviewed and agreed upon with patient and/or caregiver. RECOMMENDATION: Patient discharged from PT and is active with ST. Instructions to include:home exercise program as directed See intervention summary for intervention/education details. documented in this encounter [facility] 04-17-2025 Patient's home Note SITUATION: spouse present during today's visit. patient reports the following since the last homecare visit: medications/allergies--no changes, no fall. caregiver reports that she is realistic that he is not going to improve much but the goal is to keep him from getting worse . BACKGROUND: Diagnoses (reason for Home Care): dysphagia Weight Bearing/Precaution Changes: falls ASSESSMENT: Focus of visit performed and progressed HEP for strengthening and balance. Seated rest breaks as needed when fatigued. Denies pain. Discussed plans for his decline as the dementia worsens and the spinal compression increases. Spouse has started having private duty care 1xwk for 2hrs and will increase as necessary . Also discussed need for WW when his balance is not good enough for the RW. Also need for transport w/c in the future Functional performance at discharge - bed mobility independent, transfers supervision, ambulation supervision and Ramp supervision Plan of care, goals, and discharge reviewed and agreed upon with patient and/or caregiver. RECOMMENDATION: Patient discharged from PT and is active with ST. Instructions to include:home exercise program as directed See intervention summary for intervention/education details. [facility] Work Phone: 04-09-2025 Telephone encounter Note Noted [facility] 04-09-2025 Miscellaneous Notes Noted FYI: Mr. Padron's Chalo reported the patient is taking the following medications daily, but they are not listed on his med list: Prevacid 30mg taking 1 pill 1 x a day and Vitamin D3 2000U taking 1 capsule 1x a day. They also reported a fall that occurred on the afternoon of 04/07/2025 in their half bath as he was completing toileting hygiene on his own. No injuries reported. He was able to be assisted up by his . Please let me know if you have any questions. Tila Caceres MA,CCC-UPHOLSTERY TECHNICIAN documented in this encounter [facility] 04-09-2025 Miscellaneous Notes SITUATION: spouse present during today's visit. patient and caregiver reports the following since the last homecare visit: medications/allergies--no changes, no fall. patient reports he is doing ok. . BACKGROUND: Diagnoses (reason for Home Care): dysphagia Weight Bearing/Precaution Changes: falls ASSESSMENT: Focus of visit performed and progressed HEP for strengthenng and balance. Seated rest breaks as needed when fatigued. Denies pain. Discussed previous reported fall w/ patient and spouse. stated she has suction grab bars. I informed her that these would not stick to drywall and recommended permenent ones that screw into wall. Both voiced understanding. Plan of care, goals, and visit frequency reviewed and agreed upon with patient and/or caregiver. Current Discharge Plan: family support Anticipate discharge by 04/17/25 RECOMMENDATION: Next visit to focus on PT to see for possible DC See intervention summary for intervention/education details. documented in this encounter [facility] 04-09-2025 Patient's home Note SITUATION: spouse present during today's visit. patient and caregiver reports the following since the last homecare visit: medications/allergies--no changes, no fall. patient reports he is doing ok. . BACKGROUND: Diagnoses (reason for Home Care): dysphagia Weight Bearing/Precaution Changes: falls ASSESSMENT: Focus of visit performed and progressed HEP for strengthenng and balance. Seated rest breaks as needed when fatigued. Denies pain. Discussed previous reported fall w/ patient and spouse. stated she has suction grab bars. I informed her that these would not stick to drywall and recommended permenent ones that screw into wall. Both voiced understanding. Plan of care, goals, and visit frequency reviewed and agreed upon with patient and/or caregiver. Current Discharge Plan: family support Anticipate discharge by 04/17/25 RECOMMENDATION: Next visit to focus on PT to see for possible DC See intervention summary for intervention/education details. [facility] Work Phone: 04-09-2025 Telephone encounter Note FYI: Mr. Padron's Chalo reported the patient is taking the following medications daily, but they are not listed on his med list: Prevacid 30mg taking 1 pill 1 x a day and Vitamin D3 2000U taking 1 capsule 1x a day. They also reported a fall that occurred on the afternoon of 04/07/2025 in their half bath as he was completing toileting hygiene on his own. No injuries reported. He was able to be assisted up by his . Please let me know if you have any questions. Tila Caceres MA,CCC-UPHOLSTERY TECHNICIAN T [facility] Work Phone: 04-08-2025 Miscellaneous Notes SITUATION: spouse present during today's visit. caregiver reports the following changes since the last homecare visit: medications/allergies--to OTC medications reported, falls--1. caregiver reports she fills weekly container and is handing pill to patient. She reports he has been taking the following medications daily: Prevacid 30mg taking 1 pill 1 x a day and Vitamin D3 2000U taking 1 capsule 1x a day. Patient's reported a fall occurred in their half bathroom. The patient was standing up completing toileting hygiene and fell. He was not supervised at the time, but his heard the fall. He was unable to use the walker at the time as it doesn't fit in the restroom. It was parked outside. Patient able to get up with assistance from his and she made sure he got backto his chair ok. No injuries reported. BACKGROUND: Diagnoses (reason for Home Care): Dysphagia, unspecified Any one of the comorbidities from the list below may have a deleterious effect on the primary home care diagnosis.- (this is from problem list in snapshot)- .prob ACTIVE PROBLEM LIST Benign Non-Nodular Prostatic Hyperplasia With Lower Urinary Tract Symptoms Bladder Neck Obstruction Rosacea, Acne Pure Hypercholesterolemia S/P Turp Mild Cognitive Impairment Ataxia, Unspecified Personal History of Traumatic Brain Injury History of Subdural Hematoma History of Subarachnoid Hemorrhage Cervical Myelopathy (Hcc) Prediabetes Objective: Patient's performance today: Min mod cueing to complete: cognitive linguistic skills, dysphagia treatment and dementia management. ASSESSMENT: Patient demonstrates a need for further skilled UPHOLSTERY TECHNICIAN services for dysphagia treatment, cognitive linguistic skills and dementia management. Plan of care, progress towards goals, and visit frequency reviewed with patient and caregiver. Patient is making progress towards goals Current Discharge plan: {family support; anticipated discharge date 05/16/2025. RECOMMENDATION: Next visit to focus ondysphagia treatment, cognitive linguistic skills and caregiver training for dementia management. See intervention summary for intervention/education details. documented in this encounter [facility] 04-08-2025 Patient's home Note SITUATION: spouse present during today's visit. caregiver reports the following changes since the last homecare visit: medications/allergies--to OTC medications reported, falls--1. caregiver reports she fills weekly container and is handing pill to patient. She reports he has been taking the following medications daily: Prevacid 30mg taking 1 pill 1 x a day and Vitamin D3 2000U taking 1 capsule 1x a day. Patient's reported a fall occurred in their half bathroom. The patient was standing up completing toileting hygiene and fell. He was not supervised at the time, but his heard the fall. He was unable to use the walker at the time as it doesn't fit in the restroom. It was parked outside. Patient able to get up with assistance from his and she made sure he got backto his chair ok. No injuries reported. BACKGROUND: Diagnoses (reason for Home Care): Dysphagia, unspecified Any one of the comorbidities from the list below may have a deleterious effect on the primary home care diagnosis.- (this is from problem list in snapshot)- .prob ACTIVE PROBLEM LIST Benign Non-Nodular Prostatic Hyperplasia With Lower Urinary Tract Symptoms Bladder Neck Obstruction Rosacea, Acne Pure Hypercholesterolemia S/P Turp Mild Cognitive Impairment Ataxia, Unspecified Personal History of Traumatic Brain Injury History of Subdural Hematoma History of Subarachnoid Hemorrhage Cervical Myelopathy (Hcc) Prediabetes Objective: Patient's performance today: Min mod cueing to complete: cognitive linguistic skills, dysphagia treatment and dementia management. ASSESSMENT: Patient demonstrates a need for further skilled UPHOLSTERY TECHNICIAN services for dysphagia treatment, cognitive linguistic skills and dementia management. Plan of care, progress towards goals, and visit frequency reviewed with patient and caregiver. Patient is making progress towards goals Current Discharge plan: {family support; anticipated discharge date 05/16/2025. RECOMMENDATION: Next visit to focus ondysphagia treatment, cognitive linguistic skills and caregiver training for dementia management. See intervention summary for intervention/education details. [facility] Work Phone: 04-03-2025 Miscellaneous Notes SITUATION: spouse present during today's visit. caregiver reports the following since the last homecare visit: medications/allergies--no changes, no fall. patient reports he feels ok today. BACKGROUND: Diagnoses (reason for Home Care): Dysphagia, unspecified Weight Bearing/Precaution Changes: falls ASSESSMENT: Focus of visit progressed LE strength and balance exercises today. Patient did well. Provided pictures and written instructions for HEP. Gait training w/ rollator. Patient tends to slide right foot on floor vs picking it up during ambulation. Unable to correct w/ cues. Plan of care, goals, and visit frequency reviewed and agreed upon with patient and/or caregiver. Current Discharge Plan: family support Anticipate discharge by 04/17/25 RECOMMENDATION: Next visit to focus on add tband ankle strengthening See intervention summary for intervention/education details. documented in this encounter [facility] 04-03-2025 Patient's home Note SITUATION: spouse present during today's visit. caregiver reports the following since the last homecare visit: medications/allergies--no changes, no fall. patient reports he feels ok today. BACKGROUND: Diagnoses (reason for Home Care): Dysphagia, unspecified Weight Bearing/Precaution Changes: falls ASSESSMENT: Focus of visit progressed LE strength and balance exercises today. Patient did well. Provided pictures and written instructions for HEP. Gait training w/ rollator. Patient tends to slide right foot on floor vs picking it up during ambulation. Unable to correct w/ cues. Plan of care, goals, and visit frequency reviewed and agreed upon with patient and/or caregiver. Current Discharge Plan: family support Anticipate discharge by 04/17/25 RECOMMENDATION: Next visit to focus on add tband ankle strengthening See intervention summary for intervention/education details. [facility] Work Phone: 03-29-2025 Miscellaneous Notes SITUATION: spouse present during today's visit. caregiver reports the following since the last homecare visit: medications/allergies--no changes, no fall. patient reports he has had a slow decline since his accident where he had a horse accident in 2018. BACKGROUND: Diagnoses (reason for Home Care): Dysphagia, unspecified Past Medical History: Benign Non-Nodular Prostatic Hyperplasia With Lower Urinary Tract Symptoms Bladder Neck Obstruction Rosacea, Acne Pure Hypercholesterolemia S/P Turp Mild Cognitive Impairment Ataxia, Unspecified Personal History of Traumatic Brain Injury History of Subdural Hematoma History of Subarachnoid Hemorrhage Cervical Myelopathy (Hcc) Prediabetes Weight Bearing or Surgical Precautions: fall risk ASSESSMENT: Patient evaluated by [facility] Homecare physical therapy. Reviewed and explained homecare services. Plan of care, goals, and visit frequency developed, reviewed, and agreed upon with patient and/or caregiver. Patient Goal: improve mobility Patient will benefit from continued physical therapy to address the following deficits: strength, balance, gait, transfers and bed mobility. Current Discharge Plan:independent with home exercise program. Anticipate discharge by 04/20/25 RECOMMENDATION: Next visit to focus on hep progression, bed mobility See intervention summary for intervention/education details. documented in this encounter [facility] 03-29-2025 Patient's home Note SITUATION: spouse present during today's visit. caregiver reports the following since the last homecare visit: medications/allergies--no changes, no fall. patient reports he has had a slow decline since his accident where he had a horse accident in 2018. BACKGROUND: Diagnoses (reason for Home Care): Dysphagia, unspecified Past Medical History: Benign Non-Nodular Prostatic Hyperplasia With Lower Urinary Tract Symptoms Bladder Neck Obstruction Rosacea, Acne Pure Hypercholesterolemia S/P Turp Mild Cognitive Impairment Ataxia, Unspecified Personal History of Traumatic Brain Injury History of Subdural Hematoma History of Subarachnoid Hemorrhage Cervical Myelopathy (Hcc) Prediabetes Weight Bearing or Surgical Precautions: fall risk ASSESSMENT: Patient evaluated by [facility] Homecare physical therapy. Reviewed and explained homecare services. Plan of care, goals, and visit frequency developed, reviewed, and agreed upon with patient and/or caregiver. Patient Goal: improve mobility Patient will benefit from continued physical therapy to address the following deficits: strength, balance, gait, transfers and bed mobility. Current Discharge Plan:independent with home exercise program. Anticipate discharge by 04/20/25 RECOMMENDATION: Next visit to focus on hep progression, bed mobility See intervention summary for intervention/education details. [facility] Work Phone: 03-27-2025 Telephone encounter Note There has been a delay in service for Home Care PT Evaluation for this patient due to schedule conflict. Patient was notified on 03/27/25. Thank you for this referral, please contact us with any questions. Leeroy Fisher Control Integration Engineer [facility] 03-27-2025 Miscellaneous Notes There has been a delay in service for Home Care PT Evaluation for this patient due to schedule conflict. Patient was notified on 03/27/25. Thank you for this referral, please contact us with any questions. Leeroy Fisher Control Integration Engineer documented in this encounter [facility] 03-27-2025 Miscellaneous Notes SITUATION: spouse present during today's visit. patient and caregiver reports the following changes since the last homecare visit: medications/allergies--None, falls--None. patient and caregiver reports the patient has been doing fine with eating and drinking. The patient reports he has not done any swallowing exercises since the evaluation. Patient's reports he watches TV for the majority of the day. BACKGROUND: Diagnoses (reason for Home Care): Dysphagia, unspecified Any one of the comorbidities from the list below may have a deleterious effect on the primary home care diagnosis.- (this is from problem list in snapshot)- .prob ACTIVE PROBLEM LIST Benign Non-Nodular Prostatic Hyperplasia With Lower Urinary Tract Symptoms Bladder Neck Obstruction Rosacea, Acne Pure Hypercholesterolemia S/P Turp Mild Cognitive Impairment Ataxia, Unspecified Personal History of Traumatic Brain Injury History of Subdural Hematoma History of Subarachnoid Hemorrhage Cervical Myelopathy (Hcc) Prediabetes Objective: Patient's performance today: mod cueing to complete: dysphagia treatment and cognitive linguistic skills. ASSESSMENT: Patient demonstrates a need for further skilled UPHOLSTERY TECHNICIAN services for dysphagia treatment and cognitive linguistic skills. Plan of care, progress towards goals, and visit frequency reviewed with patient and caregiver. Patient is making progress towards goals Current Discharge plan: {family support; anticipated discharge date 05/16/2025. RECOMMENDATION: Next visit to focus ondysphagia treatment: Oropharyngeal exercise instruction and cognitive linguistic skills: Cognitive strategies See intervention summary for intervention/education details. documented in this encounter [facility] 03-27-2025 Patient's home Note SITUATION: spouse present during today's visit. patient and caregiver reports the following changes since the last homecare visit: medications/allergies--None, falls--None. patient and caregiver reports the patient has been doing fine with eating and drinking. The patient reports he has not done any swallowing exercises since the evaluation. Patient's reports he watches TV for the majority of the day. BACKGROUND: Diagnoses (reason for Home Care): Dysphagia, unspecified Any one of the comorbidities from the list below may have a deleterious effect on the primary home care diagnosis.- (this is from problem list in snapshot)- .prob ACTIVE PROBLEM LIST Benign Non-Nodular Prostatic Hyperplasia With Lower Urinary Tract Symptoms Bladder Neck Obstruction Rosacea, Acne Pure Hypercholesterolemia S/P Turp Mild Cognitive Impairment Ataxia, Unspecified Personal History of Traumatic Brain Injury History of Subdural Hematoma History of Subarachnoid Hemorrhage Cervical Myelopathy (Hcc) Prediabetes Objective: Patient's performance today: mod cueing to complete: dysphagia treatment and cognitive linguistic skills. ASSESSMENT: Patient demonstrates a need for further skilled UPHOLSTERY TECHNICIAN services for dysphagia treatment and cognitive linguistic skills. Plan of care, progress towards goals, and visit frequency reviewed with patient and caregiver. Patient is making progress towards goals Current Discharge plan: {family support; anticipated discharge date 05/16/2025. RECOMMENDATION: Next visit to focus ondysphagia treatment: Oropharyngeal exercise instruction and cognitive linguistic skills: Cognitive strategies See intervention summary for intervention/education details. [facility] Work Phone: 03-24-2025 Telephone encounter Note Speech Therapy Home Care Agency Admission completed on 03/23/25. Recommend speech therapy intervention 3m1, 2m1 to focus on dysphagia treatment, cognitive linguistic skills and dementia management education. Recommend adding PT referral for issues with balance/recent falls. Will send order, please sign if you agree. Thanks, Betty Webber MS, KORY-UPHOLSTERY TECHNICIAN [facility] Work Phone: 03-24-2025 Miscellaneous Notes Speech Therapy Home Care Agency Admission completed on 03/23/25. Recommend speech therapy intervention 3m1, 2m1 to focus on dysphagia treatment, cognitive linguistic skills and dementia management education. Recommend adding PT referral for issues with balance/recent falls. Will send order, please sign if you agree. Thanks, Betty Webber MS, KORY-UPHOLSTERY TECHNICIAN documented in this encounter [facility] 03-23-2025 Miscellaneous Notes SITUATION: spouse and pt's son present during today's visit. patient and caregiver reports the following changes since the last homecare visit: medications/allergies--None, falls--None. caregiver reports concerns for pt's swallowing, gradual decline in cognitive function over last few years, pt needing more help with ADLs, and recent falls. BACKGROUND: Primary Diagnoses (reason for Home Care): Dysphagia, unspecified Any one of the comorbidities from the list below may have a deleterious effect on the primary home care diagnosis.- (this is from problem list in snapshot)- .prob ACTIVE PROBLEM LIST Benign Non-Nodular Prostatic Hyperplasia With Lower Urinary Tract Symptoms Bladder Neck Obstruction Rosacea, Acne Pure Hypercholesterolemia S/P Turp Mild Cognitive Impairment Ataxia, Unspecified Personal History of Traumatic Brain Injury History of Subdural Hematoma History of Subarachnoid Hemorrhage Cervical Myelopathy (Hcc) Prediabetes SPECIFIC ORDERS See Barium swallow through [facility] done 02/28/25: Patient presents with mild oropharyngeal dysphagia per MBSS on 02/28/25 requiring Regular Easy to Chew Solids (IDDSI Level 7EC) / Thin liquids (IDDSI Level 1), Pills one at a time with Applesauce with Swallowing Precautions: distant supervision, Sitting Upright 90 Degrees, Small Sips/Bites when Eating, and Alternate Liquids Solids. Prior level of function: dependent for IADLs, needs assistance for ADLs Diet at current time: Regular, Easy to Chew Diet, Thin Liquids, Pills one at a time with applesauce Patient stated goal: swallow safely, open to instruction on compensatory memory strategies and HEP recommendations to support safety and cognitive skills Advance Directives: Patient does not have advance directives but does have POA. Directed them to Home Care Folder for further information. Objective: Patient presents with: dysphagia and cognitive linguistic deficits (see assessment for full details) ASSESSMENT: Patient demonstrated a need for further skilled ST services for instruction and education related to dysphagia treatment, cognitive linguistic skills and dementia management education. Plan of care and visit frequency Developed with patient and caregiver. Home care admission booklet reviewed and left in home, consents reviewed and signed, copy left in home. Current Discharge plan: family support; anticipated discharge date by 05/16/25. RECOMMENDATION: Recommend speech therapy intervention 3m1, 2m1 to focus on dysphagia treatment, cognitive linguistic skills and dementia management education. Recommend PT referral for issues with balance/recent falls. documented in this encounter [facility] 03-23-2025 Patient's home Note SITUATION: spouse and pt's son present during today's visit. patient and caregiver reports the following changes since the last homecare visit: medications/allergies--None, falls--None. caregiver reports concerns for pt's swallowing, gradual decline in cognitive function over last few years, pt needing more help with ADLs, and recent falls. BACKGROUND: Primary Diagnoses (reason for Home Care): Dysphagia, unspecified Any one of the comorbidities from the list below may have a deleterious effect on the primary home care diagnosis.- (this is from problem list in snapshot)- .prob ACTIVE PROBLEM LIST Benign Non-Nodular Prostatic Hyperplasia With Lower Urinary Tract Symptoms Bladder Neck Obstruction Rosacea, Acne Pure Hypercholesterolemia S/P Turp Mild Cognitive Impairment Ataxia, Unspecified Personal History of Traumatic Brain Injury History of Subdural Hematoma History of Subarachnoid Hemorrhage Cervical Myelopathy (Hcc) Prediabetes SPECIFIC ORDERS See Barium swallow through [facility] done 02/28/25: Patient presents with mild oropharyngeal dysphagia per MBSS on 02/28/25 requiring Regular Easy to Chew Solids (IDDSI Level 7EC) / Thin liquids (IDDSI Level 1), Pills one at a time with Applesauce with Swallowing Precautions: distant supervision, Sitting Upright 90 Degrees, Small Sips/Bites when Eating, and Alternate Liquids Solids. Prior level of function: dependent for IADLs, needs assistance for ADLs Diet at current time: Regular, Easy to Chew Diet, Thin Liquids, Pills one at a time with applesauce Patient stated goal: swallow safely, open to instruction on compensatory memory strategies and HEP recommendations to support safety and cognitive skills Advance Directives: Patient does not have advance directives but does have POA. Directed them to Home Care Folder for further information. Objective: Patient presents with: dysphagia and cognitive linguistic deficits (see assessment for full details) ASSESSMENT: Patient demonstrated a need for further skilled ST services for instruction and education related to dysphagia treatment, cognitive linguistic skills and dementia management education. Plan of care and visit frequency Developed with patient and caregiver. Home care admission booklet reviewed and left in home, consents reviewed and signed, copy left in home. Current Discharge plan: family support; anticipated discharge date by 05/16/25. RECOMMENDATION: Recommend speech therapy intervention 3m1, 2m1 to focus on dysphagia treatment, cognitive linguistic skills and dementia management education. Recommend PT referral for issues with balance/recent falls. 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 Thank you Tessie Angel [facility] 03-22-2025 Miscellaneous Notes Patient accepted and confirmed Home Care UPHOLSTERY TECHNICIAN start of care for 03/23/25. Thank you Tessie Angel documented in this encounter [facility] 03-22-2025 Telephone encounter Note Date/Time: 03/22/2025 12:11 PM Spoke with CHALO @ phone #: [phone] (home) [phone] (work) - Preferred # for contact: [phone] (home) [phone] (work) Have you received help from a home care company in the last 60 days? NO Are you agreeable to [facility] services? YES What address will we be seeing you at? Patricio Padron [id number] [facility] [address] Do you have any upcoming appointments or things we need to schedule around? NO Do you have a teachable CG or can you manage your care independently? YES Who? CHALO CALDERA [facility] 03-22-2025 Miscellaneous Notes Date/Time: 03/22/2025 12:11 PM Spoke with CHALO @ phone #: [phone] (home) [phone] (work) - Preferred # for contact: [phone] (home) [phone] (work) Have you received help from a home care company in the last 60 days? NO Are you agreeable to [facility] services? YES What address will we be seeing you at? Patricio Padron [id number] [facility] [address] Do you have any upcoming appointments or things we need to schedule around? NO Do you have a teachable CG or can you manage your care independently? YES Who? CHALO ORESTESTIEN documented in this encounter [facility] 03-21-2025 Telephone encounter Note Called and canceled order Vasquez Walter MA March 21, 2025 8:23 AM [facility] 03-21-2025 Miscellaneous Notes Called and canceled order Vasquez Walter MA March 21, 2025 8:23 AM Patient does not need a cookie swallow now, he needs home care for speech therapy to work on his swallow. They may want him to have a cookie swallow once speech therapy has worked with him. [facility] Scheduling dept calling they received order for a Cookie Swallow test. She said patient had Cookie Swallow done at [facility] on 02/28/2025, asking if wanting patient to have test done again? Please advise documented in this encounter [facility] 03-21-2025 Telephone encounter Note Patient does not need a cookie swallow now, he needs home care for speech therapy to work on his swallow. They may want him to have a cookie swallow once speech therapy has worked with him. [facility] Work Phone: 03-20-2025 Telephone encounter Note Jeanine Fermin APRN,MECHANICAL INTERN Thank you for the referral for Patricio Padron to receive home care services through [facility]. At this time, the office note is not yet completed for us to review for CMS guidelines. Per CMS guidelines your office note needs to include a discussion of HHC with the following: - what is the diagnosis that HHC is seeing the patient for. Office visit note needs discussion of patient's dysphagia. Please amend note to include MBS results;dysphagia. Please let us know once you have an opportunity to complete it so that we can review for CMS. Thank you, Paulino Mayorga LPN [facility] Work Phone: 03-20-2025 Miscellaneous Notes Jeanine Fermin APRN,SAMARIA Thank you for the referral for Patricio Padron to receive home care services through [facility]. At this time, the office note is not yet completed for us to review for CMS guidelines. Per CMS guidelines your office note needs to include a discussion of HHC with the following: - what is the diagnosis that HHC is seeing the patient for. Office visit note needs discussion of patient's dysphagia. Please amend note to include MBS results;dysphagia. Please let us know once you have an opportunity to complete it so that we can review for CMS. Thank you, Paulino Mayorga LPN documented in this encounter [facility] 03-20-2025 Telephone encounter Note [facility] Scheduling dept calling they received order for a Cookie Swallow test. She said patient had Cookie Swallow done at [facility] on 02/28/2025, asking if wanting patient to have test done again? Please advise [facility] 03-19-2025 Telephone encounter Note See mychart message. Vasquez Walter MA March 19, 2025 10:08 AM [facility] 03-19-2025 Miscellaneous Notes See My Best Interest message. Vasquez Walter MA March 19, 2025 10:08 AM I am well aware that is difficult for him to get out of the house for therapy. I did order home care yesterday. I ordered it through the [facility], I did not see if they were able to accommodate yet or not. Could get home care through [facility] for speech therapy if needed. Please check on this for patient. documented in this encounter [facility] 03-19-2025 Telephone encounter Note I am well aware that is difficult for him to get out of the house for therapy. I did order home care yesterday. I ordered it through the [facility], I did not see if they were able to accommodate yet or not. Could get home care through [facility] for speech therapy if needed. Please check on this for patient. [facility] Work Phone: 02-27-2025 Telephone encounter Note Faxed. Blue Rendon MA [facility] 02-27-2025 Miscellaneous Notes Faxed. Blue Rendon MA Will need order sent over Simeon from [facility] radiology dept calling this morning as she is in need of an order for pt's Modified Barium Swallow test that is scheduled for tomorrow. After reviewing epic notes and scanned documents, it appears that Speech therapist Joy Ybarra from [facility] Speech Therapy dept saw pt and recommended this test. Per her note, pt was scheduled for 04/02/25. She also put in note that she messaged radiology asking for them to expedite the test which is now scheduled for tomorrow. Per Simeon, she needs an order faxed over to her at [phone] as soon as possible. documented in this encounter [facility] 02-27-2025 Telephone encounter Note Will need order sent over [facility] 02-27-2025 Telephone encounter Note Simeon from [facility] radiology dept calling this morning as she is in need of an order for pt's Modified Barium Swallow test that is scheduled for tomorrow. After reviewing epic notes and scanned documents, it appears that Speech therapist Joy Ybarra from [facility] Speech Therapy dept saw pt and recommended this test. Per her note, pt was scheduled for 04/02/25. She also put in note that she messaged radiology asking for them to expedite the test which is now scheduled for tomorrow. Per Simeon, she needs an order faxed over to her at [phone] as soon as possible. [facility] 02-21-2025 Telephone encounter Note Patient had a speech pathology evaluation done at [facility] on February 20, 2025 Diagnosis patient had abnormal lung sounds and dementia. He is scheduled for a swallow evaluation April 02, 2025. Modified barium swallow scheduled. [facility] Work Phone: 02-21-2025 Miscellaneous Notes Patient had a speech pathology evaluation done at [facility] on February 20, 2025 Diagnosis patient had abnormal lung sounds and dementia. He is scheduled for a swallow evaluation April 02, 2025. Modified barium swallow scheduled. documented in this encounter [facility] 02-19-2025 Note HNO ID: [id number] Author: GISELLE VINSON OTR/Augustin Service: ? Author Type: Occupational Therapist Type: Progress Notes Filed: 02/19/2025 17:06 Note Text: Episode Visit Count: 1 Therapist That Will Accept/Oversee The Plan Of Care: Darnell Vinson Start of Care Date: 02/19/25 Onset Date: 12/13/23 Plan of Care Certification Date: 02/19/25 Next Certification Due Date: 02/19/25 Patient Identified by Name and Date of : Yes REHABILITATION AND SPORTS THERAPY OCCUPATIONAL THERAPY INSTRUMENTAL ADL AND COMMUNITY MOBILITY EVALUATION SUBJECTIVE: Patricio Padron is a 69 year old male seen today for OT IADL, community mobility including driving Functional Limitations: walking, walking in the house, walking in the community Prior Level of Function: Required assistance Home Environment Patient Lives With: Spouse Assistance Available: 24-Hour Home Type: Multi-Level with First Floor Set-Up Entry To Home: Stairs, Without Rail, Ramp Number Of Stairs Into Home: 2 Tub/Shower Type: walk in shower Laundry: main floor Equipment Owned: Cane, Walker- Wheeled, Shower Chair, Grab Bars- Shower, Commode- Raised, Rollator Patient Goals: retain driving privileges Intake Information: Prescription present Previous Treatment: Roentgenologist Assessment , Physical Therapy Falls Interview: Two or more falls in the last year Relevant History Past Relevant Medical Conditions: Traumatic Brain Injury (SDH, SAH, mild cognitive impairment) Highest Level of Education: Bachelors Right or Left Handed: Left Employment: Retired Recreation / Current Exercise: not much Hobbies / Interests: brain teasers Home Environment Patient Lives With: Spouse Assistance Available: 24-Hour Home Type: Multi-Level with First Floor Set-Up Entry To Home: Stairs, Without Rail, Ramp Number Of Stairs Into Home: 2 Tub/Shower Type: walk in shower Laundry: main floor Equipment Owned: Cane, Walker- Wheeled, Shower Chair, Grab Bars- Shower, Commode- Raised, Rollator Pain Level: 0 Post Treatment Pain Level: No Change Activities of Daily Living: Patient requiring assistance with basic selfcares at this time. He is able to dress self generally but requires assistance with bathing and dressing after bathing due to being damp. Requires assistance with medication management. He is currently requiring assistance to get off the toilet on occasion within the last 3-4 weeks. Instrumental Activities of Daily Living: Patient is requiring total assistance with IADL tasks at this time. Driving History: Patient reports driving for approximately 50 years. He last drove in April of 2024. He is relying on his spouse for transportation. He desires to retain driving privileges for leisure/social. He reports planning to drive day or night, locally and on the freeway. He states that he drives a couple of times per week typically. He currently owns a 2021 [employer] 4 door pickup truck with automatic transmission. State: [place] License/Permit #: [id number] Expires: 2025 Restrictions: corrective lenses 5 Yr. Violation HX: NA 5 Yr. MVA HX: NA Handicap Parking Placard: YES _ 1. Patricio Dawkins Leisure self report indicates an awareness of: no awareness of deficits PROMIS Scales 02/12/2025 04/19/2024 12/12/2023 Speech Cognitve Function T-Score 34 (moderate dysfunction) 31 (moderate dysfunction) 46 (within normal limits) Cognitive Function Percentile 5 T-scores: mean of general population = 50. 5 points is clinically meaningfully difference Percentiles provide an indication of how the patient's score ranks in relation to the general population. Higher percentile rankings indicate better function/quality of life. 50th percentile is the average of the general population and indicates half of respondents had a worse score. OBJECTIVE MEASURES WITH LEVEL OF FUNCTION: VISION SCREENING: Corrective Lenses: Wears glasses / contact lenses for driving Distant Acuity: Binocular: 20 / 40-1 Right: 20 / 50 Left: 20 / 40 Nighttime Glare: Right: Unable to see any stimuli on the right with glare. Left: 20 / 70-1 Binocular: 20 / 70 Color Perception: fail able to see 2 of 8 stimuli accurately Fusion: pass 3 cubes Lateral Phoria: Pass Vertical Phoria: Fail severe left hyperphoria Depth Perception: Pass Angle Stereopsis (degree): 40 Functional Depth: NT Contrast Sensitivity: severely impaired Peripheral Vision: Within legal limits for driving Right Eye: Failed to recognize stimuli: 85 degrees Left Eye: Failed to recognize stimuli: 85 degrees Double Stimuli: Acknowledged Diplopia: No complaints Strabismus: No OU Cataracts: No OU Glaucoma: No. OU Other Eye Conditions / Diseases Reported: NA ASSESSMENT OF VISUAL FUNCTION: Marginal for Driving and supervision recommended with IADLs. Recommended extra caution at night due to decreased quality of vision to promote s (more content not included)... [facility] 02-19-2025 History of Present illness Narrative Images from the original note were not included. Episode Visit Count: 1 Therapist That Will Accept/Oversee The Plan Of Care: Darnell Vinson Start of Care Date: 02/19/25 Onset Date: 12/13/23 Plan of Care Certification Date: 02/19/25 Next Certification Due Date: 02/19/25 Patient Identified by Name and Date of : Yes REHABILITATION AND SPORTS THERAPY OCCUPATIONAL THERAPY INSTRUMENTAL ADL AND COMMUNITY MOBILITY EVALUATION SUBJECTIVE: Patricio Padron is a 69 year old male seen today for OT IADL, community mobility including driving Functional Limitations: walking, walking in the house, walking in the community Prior Level of Function: Required assistance Home Environment Patient Lives With: Spouse Assistance Available: 24-Hour Home Type: Multi-Level with First Floor Set-Up Entry To Home: Stairs, Without Rail, Ramp Number Of Stairs Into Home: 2 Tub/Shower Type: walk in shower Laundry: main floor Equipment Owned: Cane, Walker- Wheeled, Shower Chair, Grab Bars- Shower, Commode- Raised, Rollator Patient Goals: retain driving privileges Intake Information: Prescription present Previous Treatment: Roentgenologist Assessment , Physical Therapy Falls Interview: Two or more falls in the last year Relevant History Past Relevant Medical Conditions: Traumatic Brain Injury (SDH, SAH, mild cognitive impairment) Highest Level of Education: Bachelors Right or Left Handed: Left Employment: Retired Recreation / Current Exercise: not much Hobbies / Interests: brain teasers Home Environment Patient Lives With: Spouse Assistance Available: 24-Hour Home Type: Multi-Level with First Floor Set-Up Entry To Home: Stairs, Without Rail, Ramp Number Of Stairs Into Home: 2 Tub/Shower Type: walk in shower Laundry: main floor Equipment Owned: Cane, Walker- Wheeled, Shower Chair, Grab Bars- Shower, Commode- Raised, Rollator Pain Level: 0 Post Treatment Pain Level: No Change Activities of Daily Living: Patient requiring assistance with basic selfcares at this time. He is able to dress self generally but requires assistance with bathing and dressing after bathing due to being damp. Requires assistance with medication management. He is currently requiring assistance to get off the toilet on occasion within the last 3-4 weeks. Instrumental Activities of Daily Living: Patient is requiring total assistance with IADL tasks at this time. Driving History: Patient reports driving for approximately 50 years. He last drove in April of 2024. He is relying on his spouse for transportation. He desires to retain driving privileges for leisure/social. He reports planning to drive day or night, locally and on the freeway. He states that he drives a couple of times per week typically. He currently owns a 2021 [employer] 4 door pickup truck with automatic transmission. State: [place] License/Permit #: [id number] Expires: 2025 Restrictions: corrective lenses 5 Yr. Violation HX: NA 5 Yr. MVA HX: NA Handicap Parking Placard: YES _ 1. Patricio Dawkins Leisure self report indicates an awareness of: no awareness of deficits PROMIS Scales 02/12/2025 04/19/2024 12/12/2023 Speech Cognitve Function T-Score 34 (moderate dysfunction) 31 (moderate dysfunction) 46 (within normal limits) Cognitive Function Percentile 5 T-scores: mean of general population = 50. 5 points is clinically meaningfully difference Percentiles provide an indication of how the patient's score ranks in relation to the general population. Higher percentile rankings indicate better function/quality of life. 50th percentile is the average of the general population and indicates half of respondents had a worse score. OBJECTIVE MEASURES WITH LEVEL OF FUNCTION: VISION SCREENING: Corrective Lenses: Wears glasses / contact lenses for driving Distant Acuity: Binocular: 20 / 40-1 Right: 20 / 50 Left: 20 / 40 Nighttime Glare: Right: Unable to see any stimuli on the right with glare. Left: 20 / 70-1 Binocular: 20 / 70 Color Perception: fail able to see 2 of 8 stimuli accurately Fusion: pass 3 cubes Lateral Phoria: Pass Vertical Phoria: Fail severe left hyperphoria Depth Perception: Pass Angle Stereopsis (degree): 40 Functional Depth: NT Contrast Sensitivity: severely impaired Peripheral Vision: Within legal limits for driving Right Eye: Failed to recognize stimuli: 85 degrees Left Eye: Failed to recognize stimuli: 85 degrees Double Stimuli: Acknowledged Diplopia: No complaints Strabismus: No OU Cataracts: No OU Glaucoma: No. OU Other Eye Conditions / Diseases Reported: NA ASSESSMENT OF VISUAL FUNCTION: Marginal for Driving and supervision recommended with IADLs. Recommended extra caution at night due to decreased quality of vision to promote safety. Assure good lighting conditions in the home especially at night with no glaring light fixtures. May benefit from ana colored sunglasses for daytime & yellow nighttime lenses to enhance contrast sensitivity. Recommend removal of all tripping hazards including throw rugs for safety due to decreased stability on his feet. COGNITIVE / PERCEPTUAL ASSESSMENT: SHORT BLESSED TEST Short Blessed Test 1. What Year Is It Now?: Incorrect 2. What Month Is It Now?: Correct 3. What Time is it? (WIthin 1 hour): Incorrect 4. Count Aloud Backwards 20 to 1 (Errors): 2 5. Months of the Year in Reverse Order (Errors): 2 6. Memory Phrase (Errors) : 5 Short Blessed Final Score: 25 Short Blessed Test score from previous assessment 15. Short Blessed Test Scorin-8; Normal to minimal impairment 9-19; Moderate impairment 20-28; Severe impairment [email or web address] Immediate Recall: WNL @ 03/22 digits Visual Scanning/Attention: Charlotte Making Part A (sec): 206 sec (2 errors - last assessment 195 sec.) Charlotte Making Part B (sec): (unable to complete even the sample test.) 50th percentile norm for age group: 70-79; Part A: 80 seconds, Part B: 196 seconds Ernesto Clock Drawing Test: Patricio Dawkins Vito correctly included 2/8 criteria for this test. He failed to include or correctly place: all 12 hours in correct numeric order, starting with 12 at the top only the numbers 1-12 (no duplicates, omissions, or foreign markings) the numbers inside the clock buck[place] the numbers equally, or nearly so, from each other the numbers equally spaced, or nearly so, from the edge of the buck[place] only two clock hands According to The Physician's Guide to Assessing and Counseling Older Drivers, 2003, any incorrect element in the Ernesto Clock Scoring signals a need for intervention. Motor Free Visual Perception Test: MVPT Total Score: 33 (scored 32 last assessment) MVPT Processing time (seconds): 18.1 (scored 13.3 last assessment) Norms: 70-80 y/o: Raw Score 25-35; Processing Time 4.5-7.1 seconds +/- .5 seconds Visual Inattention / Unilateral Neglect: Not Apparent ASSESSMENT OF COGNITIVE / PERCEPTUAL FUNCTION: Not Suggestive of Safe Driving Potential and supervision recommended with IADLs Education: Education Learning Preferences: Demonstration, Explanation Barriers: Cognitive Limitations, Low activity tolerance/endurance Learning/educational needs: Lifestyle changes, Safety, Plan of Care Education Provided: Yes, see treatment interventions for education provided Education Provided To: Patient, Caregiver Education Mode/Type: Demonstration, Explanation/Discussion Response to Education/Teach Back: States/Identifies, Return Demonstration TREATMENT: Evaluation Self-Retirement Management: 1: Educated on safety throughout the course of the assessment 2: Recommend non glare lighting in the home for optimal vision during low light times of day. 3: Recommend removal of all tripping hazards from walkways and that is nearby patient whenever he is on his feet for safety. 4: Assure adequate lighting in the home especially during low light times of day for safety Skilled Intervention: Skilled judgment in the selection of proper modification for activity of daily living/home management based on clinical presentation, deficits, and needs. Reviewed patient specific diagnosis in relation to activities of daily living/home management. Activity progression based on professional judgement. Community /Work Re-integration: Skilled Intervention: Community mobility: Instructed in safe transfers in/out of simulated vehicle to prevent falls. Reaction time activities instructed and performed important for not only driving but fall prevention. PLAN OF CARE: SUMMARY AND RECOMMENDATIONS *The information in this report indicates the ability of the corporate driver to operate a motor vehicle on this date only. Due to the complex nature of the safe operation of a motor vehicle, and considering the demands of integrating changing environmental conditions, and visual, cognitive, and physical skills, successful completion of this program is not a guarantee of safe driving in the future. ASSESSMENT OF INSTRUMENTAL ADL AND COMMUNITY MOBILITY: Patricio Padron presents with the diagnosis of dementia without behavioral disturbance, memory loss. This patient presents with impairments of impaired short term memory, impaired orientation to time, decreased problem solving, impaired contrast sensitivity, decreased night time glare acuity, impaired peripheral vision, decreased speed of processing visual perception and impaired attention and divided attention. . RECOMMENDATIONS: ADL/IADL Recommendations: 1. Recommend close supervision with all IADL tasks and supervision to physical assistance with ADL. 2. Non glare lighting in the home for optimal vision during lower light times of day. 3. Remove all tripping hazards from walkways for safety. Driving Recommendations: REFRAIN FROM DRIVING - Patient should retire from driving at this time. Patient may benefit from PT services due to decreased strength and endurance to the point he is requiring assistance to get off the toilet. Patient may benefit from OT and or ST for ADL maximizing independence as for cognitive management. Herrera's Visual Field Exam Requested: No Recommended Complete Eye Exam: No Prognosis: Poor Poor due to: memory deficits, poor past response to therapy intervention, limited tolerance to activity, chronic nature of impairments, clinical presentation, multiple co- morbidities Goals for Episode of Care created on 02/19/25 through 02/19/25 Patient and Caregiver will demonstrate understanding of safety issues in the home and/or community with assistance as recommended for instrumental activities of daily living , community mobility, and driving Planned Interventions, Frequency, and Duration: Current Frequency: Discontinue Therapy Services Duration: 1 visit Total Number of Visits Planned: 1 Patient to be see for Self-shelter management (85040), Community / Work Reintegration, Roentgenologist rehab evaluation PLAN FOR NEXT VISIT: D/C OT at this time Patient demonstrates fair understanding of plan of care and treatment. The above goals and plan of care were discussed and agreed upon by patient/family. Billing: Total Treatment Time Minutes (timed/untimed) 90 Evaluation - Moderate Complexity (43775) Self Care / Home Management (72652): 1:1 time: 30 minutes (2 units: 23-37 mins) Community /Work Re-integration (98663): 1:1 time: 30 minutes (2 units: 23-37 mins) Session Start Time : 1245 Session Stop Time : 1415 Total time: 90 minutes JOANN Mendez/Augustin, LDI Roentgenologist Handbag Stitcher documented in this encounter [facility] 02-14-2025 Telephone encounter Note Park calling from [facility] and requesting pt's swallowing evaluation order for continuity of care. Faxed as requested. Nica Marin RN [facility] 02-14-2025 Miscellaneous Notes Park calling from [facility] and requesting pt's swallowing evaluation order for continuity of care. Faxed as requested. Nica Marin RN documented in this encounter [facility] 02-11-2025 Telephone encounter Note Sheridan spoke with patient spouse regarding patient care needs. Discussed [place] [facility] Older Adult Resource Guide. Discussed home comfort advisor agency options ie. [facility], [facility], [facility]. Discussed [facility]. Sheridan will compile above agency info and mail to patient/spouse. Sheridan confirmed address with spouse to mail information. [facility] 02-11-2025 Miscellaneous Notes Sheridan spoke with patient spouse regarding patient care needs. Discussed [place] [facility] Older Adult Resource Guide. Discussed home comfort advisor agency options ie. [facility], [facility], [facility]. Discussed [facility]. Sheridan will compile above agency info and mail to patient/spouse. Sheridan confirmed address with spouse to mail information. documented in this encounter [facility] 02-08-2025 Progress note Formatting of t his note might be different from the original. Please let patient know that the left lower lung has old scarring from previous pneumonia. Linear atelectasis in the left upper lobe is with resolution of the recent pneumonia. Everything looks okay. [facility] Work Phone: 02-08-2025 Miscellaneous Notes Please let patient know that the left lower lung has old scarring from previous pneumonia. Linear atelectasis in the left upper lobe is with resolution of the recent pneumonia. Everything looks okay. documented in this encounter [facility] 02-08-2025 Note HNO ID: [id number] Author: TYREE VIEYRA RT(R) Service: ? Author Type: [address] Type: Progress Notes Filed: 02/08/2025 15:38 Note Text: Radiology Service Progress Note PATIENT NAME: Patricio Padron DATE OF SERVICE: February 08, 2025 TIME: 3:22 PM PATIENT IDENTITY VERIFICATION COMPLETED USING TWO (2) IDENTIFIERS: Name and Date of confirmed by patient verbally. FALL SCREENING: Has the patient had 2 falls in the last year or 1 fall with injury or currently using an Ambulatory Assistive Device (Walker, Cane, Wheelchair, Crutches, etc.)? No PATIENT GENDER DATA: Assigned male at PATIENT RELEVANT IMPLANT DATA REVIEWED: Yes PATIENT PRESENTS WITH AN IMPLANTABLE OR ATTACHED PSYCHOPAEDIC NURSE: No RADIOLOGY DEPARTMENT: General X-ray: Exam(s) Completed: Chest X-Ray PERIPHERAL IV DATA: Not applicable SIGNED BY: RT Rony(R) February 08, 2025 3:22 PM [facility] 02-08-2025 Note HNO ID: [id number] Author: JEANINE FERMIN APRN.CNP Service: ? Author Type: Nurse Practitioner Type: Progress Notes Filed: 03/21/2025 08:15 Note Text: Patricio is a 69-year-old male with a history of hemorrhagic CVA, seen today for follow-up of pneumonia. Pneumonia: - Recent treatment with doxycycline and prednisone. - Noted improvement in breathing. - Occasional cough, but significantly reduced. - Denies fever, chills, headache, or chest congestion. - Palliative care nurse noted abnormal lung sounds two days ago. - Scheduled for a follow-up visit in four weeks due to recent illness. Hemorrhagic CVA: - History of hemorrhagic CVA. - Recent issues with dysphagia, though not currently observed. - Increasing weakness and fatigue. - Difficulty with ambulation; uses a walker and is primarily homebound. - Requires assistance with ADLs, including bathing and dressing. - Recent onset of urinary incontinence; using Depends. PAST MEDICAL HISTORY: PAST MEDICAL HISTORY Diagnosis Date Arthritis BPH with obstruction/lower urinary tract symptoms Renal lesion 07/26/2023 Rosacea Subarachnoid hemorrhage (HCC) 08/11/2023 PAST SURGICAL HISTORY Procedure Laterality Date PAST SURGICAL HISTORY OF flexible cystoscopy PAST SURGICAL HISTORY OF 1958 tonsillectomy PAST SURGICAL HISTORY OF 2017 left eye surgery PAST SURGICAL HISTORY OF 2023 Surgery to drain hematoma on brain- not successful TRANSURETHRAL ELEC-SURG PROSTATECTOM N/A 08/18/2021 TRANSURETHRAL ELEC-SURG PROSTATECTOM 2019 ALLERGIES Patient has no known allergies. MEDICATIONS Current Outpatient Medications Medication Sig benzonatate (TESSALON PERLE) 100 mg capsule Take 1 capsule by mouth three times a day as needed for cough for up to 15 days. memantine (NAMENDA) 5 mg tablet Take 1 [...] Alcohol use: Not Currently Drug use: Never REVIEW OF SYSTEMS Constitutional: (-) fever, (-) chills, (+) weakness Head: (-) headache Ears/Nose/Mouth/Throat: (-) congestion Respiratory: (+) occasional cough, (-) chest congestion Gastrointestinal: (-) nausea, (-) vomiting, (+) decreased appetite Genitourinary: (+) urinary incontinence Musculoskeletal: (-) body aches EXAM: BP 120/74 Pulse 111 Temp 36.6 ?C (97.9 ?F) Wt 66.2 kg (146 lb) SpO2 95% BMI 24.30 kg/m? PHYSICAL EXAM: GENERAL: NAD, alert and some dementia SKIN: Unremarkable, no rash or skin lesions. HEAD: Normocephalic. EARS: Right ear canal obstructed with cerumen, left ear canal clear, TM normal. NOSE/SINUSES: Nares erythematous with mild erosion and clear mucus drainage. Septum midline. No sinus tenderness. OROPHARYNX: Lips, mucosa, and tongue normal, good dentition. No oral lesions noted. NECK: Supple, no lymphadenopathy, normal thyroid, no carotid bruits. LUNGS: Clear to auscultation bilaterally, no wheezes/rhonchi/rales. HEART: Regular rate and rhythm, no murmurs. No ectopy. Tachycardic. EXTREMITIES: Normal, no deformities, no skin discoloration, no edema. ABDOMEN: Soft, non-tender, normal bowel sounds. NEURO: irritable, presents in a wheelchair, generalized debilty, no involuntary motions. LABS: today AND chest Xray ASSESSMENT/PLAN: 1. Abnormal lung sounds - ICD9: 786.7, ICD10: R09.89 (primary diagnosis) Check chest Xray today - SWALLOW EVALUATION 2. Prediabetes - ICD9: 790.29, ICD10: R73.03 Check hemoglobin A1c 3. Hypoalbuminemia - ICD9: 273.8, ICD10: E88.09 Check CMP 4. Cervical myelopathy (HCC) - ICD9: 721.1, ICD10: G95.9 Ongoing debility - PRIMARY CARE SOCIAL WORK CONSULT - DME SUPPLY OR ACCESSORY, NOS for depends 5. History of subarachnoid hemorrhage - ICD9: V12.59, ICD10: Z86.79 Stable - PRIMARY CARE SOCIAL WORK CONSULT 6. Pure hypercholesterolemia - ICD9: 272.0, ICD10: E78.00 Check labs 7. Dementia without behavioral disturbance (HCC) - ICD9: 294.20, ICD10: F03.90 worsening - PRIMARY CARE SOCIAL WORK CONSULT - Check Ua for reflex culture 8. Age-related physical debility - ICD9: 797, ICD10: R54 worsening - URINALYSIS (WITH MICROSCOPIC) WITH CULTURE IF INDICATED - DME SUPPLY OR ACCESSORY, NOS 9. Dysphagia, unspecified type - ICD9: 787.20, ICD10: R13.10 Patient has trou (more content not included)... [facility] 01-29-2025 Instructions Jeanine Fermin APRN.CNP - 01/29/2025 11:03 AM EDT 1) Doxycycline 100 mg 2 x day for 10 days 2) Benzonatate 100 mg 3 x day as needed for cough 3) Follow up in 10 - 14 days documented in this encounter [facility] 01-29-2025 Note HNO ID: [id number] Author: JEANINE FERMIN APRN.CNP Service: ? Author Type: Nurse Practitioner Type: Progress Notes Filed: 01/29/2025 11:03 Note Text: This is a 69 year old male who presents today with: Patient presents with: Cough: 2 weeks HISTORY OF PRESENT ILLNESS: Patricio Padron is a 69 year old male. Patient presents with: Cough: 2 weeks Cough for a couple weeks. Productive. Didn't check color. No fever or chills. No headache Some sinus congestion. No ear pain. No fatigue Not keeping him up at night. Coughing so hard it is hard to breath Not much exertion to cause dyspnea No body aches Mobility is declining No sore throat PAST MEDICAL HISTORY: PAST MEDICAL HISTORY Diagnosis Date Arthritis BPH with obstruction/lower urinary tract symptoms Renal lesion 07/26/2023 Rosacea Subarachnoid hemorrhage (HCC) 08/11/2023 PAST SURGICAL HISTORY Procedure Laterality Date PAST SURGICAL HISTORY OF flexible cystoscopy PAST SURGICAL HISTORY OF 1958 tonsillectomy PAST SURGICAL HISTORY OF 2017 left eye surgery PAST SURGICAL HISTORY OF 2023 Surgery to drain hematoma on brain- not successful TRANSURETHRAL ELEC-SURG PROSTATECTOM N/A 08/18/2021 TRANSURETHRAL ELEC-SURG PROSTATECTOM 2019 ALLERGIES Patient has no known allergies. MEDICATIONS [...] Alcohol use: Not Currently Drug use: Never EXAM: BP 118/70 Pulse 101 Temp 36.3 ?C (97.3 ?F) Wt 65.8 kg (145 lb) SpO2 93% BMI 24.13 kg/m? PHYSICAL EXAM: Physical Exam Vitals reviewed. Constitutional: Comments: disheveled HENT: Head: Normocephalic. Right Ear: External ear normal. There is no impacted cerumen. Left Ear: External ear normal. There is no impacted cerumen. Ears: Comments: Unable to see in ears, some cerumen, some hair obstruction Mouth/Throat: Pharynx: Oropharyngeal exudate and posterior oropharyngeal erythema present. Cardiovascular: Rate and Rhythm: Normal rate and regular rhythm. Pulses: Normal pulses. Heart sounds: Murmur heard. Comments: Soft DARRYL @ sternal border Pulmonary: Effort: Pulmonary effort is normal. Comments: Absent lung sounds RUL, + egophony RUL AND bronchial Musculoskeletal: Comments: Presents in a wheelchair, falling again (4 times in January) Generalized weakness Lymphadenopathy: Cervical: No cervical adenopathy. Skin: General: Skin is warm and dry. Neurological: Mental Status: He is alert. Comments: Very flat affect LABS: normal GFR ASSESSMENT/PLAN: 1. Bacterial pneumonia - ICD9: 482.9, ICD10: J15.9 RUL absent lung sounds AND positive egophony - DOXYCYCLINE HYCLATE 100 MG TABLET 2 x day for 10 days - BENZONATATE 100 MG CAPSULE 3 x day for cough Discussed treatment plan and patient voices understanding. Patient's questions answered appropriately. Medications and potential side effects were discussed and patient voices understanding. Return to the office as scheduled or as needed for worsening/no improvement. Jeanine Fermin APRN.[facility] 01-29-2025 History of Present illness Narrative This is a 69 year old male who presents today with: Patient presents with: Cough: 2 weeks HISTORY OF PRESENT ILLNESS: Patricio Padron is a 69 year old male. Patient presents with: Cough: 2 weeks Cough for a couple weeks. Productive. Didn't check color. No fever or chills. No headache Some sinus congestion. No ear pain. No fatigue Not keeping him up at night. Coughing so hard it is hard to breath Not much exertion to cause dyspnea No body aches Mobility is declining No sore throat PAST MEDICAL HISTORY: PAST MEDICAL HISTORY Diagnosis Date Arthritis BPH with obstruction/lower urinary tract symptoms Renal lesion 07/26/2023 Rosacea Subarachnoid hemorrhage (HCC) 08/11/2023 PAST SURGICAL HISTORY Procedure Laterality Date PAST SURGICAL HISTORY OF flexible cystoscopy PAST SURGICAL HISTORY OF 1958 tonsillectomy PAST SURGICAL HISTORY OF 2017 left eye surgery PAST SURGICAL HISTORY OF 2023 Surgery to drain hematoma on brain- not successful TRANSURETHRAL ELEC-SURG PROSTATECTOM N/A 08/18/2021 TRANSURETHRAL ELEC-SURG PROSTATECTOM 2019 ALLERGIES Patient has no known allergies. MEDICATIONS [...] Alcohol use: Not Currently Drug use: Never EXAM: BP 118/70 Pulse 101 Temp 36.3 C (97.3 F) Wt 65.8 kg (145 lb) SpO2 93% BMI 24.13 kg/m PHYSICAL EXAM: Physical Exam Vitals reviewed. Constitutional: Comments: disheveled HENT: Head: Normocephalic. Right Ear: External ear normal. There is no impacted cerumen. Left Ear: External ear normal. There is no impacted cerumen. Ears: Comments: Unable to see in ears, some cerumen, some hair obstruction Mouth/Throat: Pharynx: Oropharyngeal exudate and posterior oropharyngeal erythema present. Cardiovascular: Rate and Rhythm: Normal rate and regular rhythm. Pulses: Normal pulses. Heart sounds: Murmur heard. Comments: Soft DARRYL @ sternal border Pulmonary: Effort: Pulmonary effort is normal. Comments: Absent lung sounds RUL, + egophony RUL & bronchial Musculoskeletal: Comments: Presents in a wheelchair, falling again (4 times in January) Generalized weakness Lymphadenopathy: Cervical: No cervical adenopathy. Skin: General: Skin is warm and dry. Neurological: Mental Status: He is alert. Comments: Very flat affect LABS: normal GFR ASSESSMENT/PLAN: 1. Bacterial pneumonia - ICD9: 482.9, ICD10: J15.9 RUL absent lung sounds & positive egophony - DOXYCYCLINE HYCLATE 100 MG TABLET 2 x day for 10 days - BENZONATATE 100 MG CAPSULE 3 x day for cough Discussed treatment plan and patient voices understanding. Patient's questions answered appropriately. Medications and potential side effects were discussed and patient voices understanding. Return to the office as scheduled or as needed for worsening/no improvement. Jeanine Fermin APRN.MECHANICAL INTERN documented in this encounter [facility] 01-28-2025 Miscellaneous Notes Needs seen by one of us documented in this encounter [facility] 01-28-2025 Telephone encounter Note Needs seen by one of us [facility] 01-08-2025 Instructions Jayda Ace PA-C - 01/08/2025 11:39 AM EDT Repeat driving evaluation (order has been placed) Continue with namenda 5mg twice a day Increase water intake Stay physically active and keep your brain active Try 3mg melatonin a few hours before bed, regulate light exposure throughout the day. Limit water exposure 2 hours before bed Follow up in 3-[address] Pinto documented in this encounter [facility] 01-08-2025 Note HNO ID: [id number] Author: JAYDA ACE PA-C Service: ? Author Type: Physician Photocopying Machine Operator Type: Progress Notes Filed: 01/08/2025 12:40 Note Text: [facility] Name: Patricio Padron Age: [age] year old Gender: male Primary Care Provider: Yanet Adams MD 01/08/2025 - General Neurology, Jayda Ace PA-C ASSESSMENT ASSESSMENT/PLAN: 1. Dementia without behavioral disturbance (HCC) - ICD9: 294.20, ICD10: F03.90 (primary diagnosis) 2. Memory loss - ICD9: 780.93, ICD10: R41.3 Patient presents for dementia follow-up. No significant change in memory since last appointment, unable to repeat MoCA with due to time today. Notes she did start increasing physical activity at home to avoid falls and worsening weakness in the lower extremities. However is not very cognitively active and primarily watches the news throughout the day. Compliant with Namenda 5 mg twice daily. Patient is primarily concerned today about his driving evaluation, was told to no longer drive but states the test was not fair as his hand was blocking the written exam in certain sections causing him to miss certain points. Unclear history with this. They discussed this with the facility and they stated that that he can retake this test if a new order is placed, new order was placed today, encouraged no driving until test is completed. Encouraged conservative therapy as well, deferring any further increasing Namenda at this time. Patient's also concerned about sleep. Notes that he has been sleeping a lot more, roughly 12 to 14 hours a night. States that she read online that this was relatively normal for dementia however, this is relatively new over the last few months. Patient without any wandering at nighttime, discussed conservative sleep management including trying melatonin a few hours before bedtime, sleep hygiene. Should this persist may follow-up with Dr. Pinto for further evaluation at next appointment. 3. Frequent falls - ICD9: V15.88, ICD10: R29.6 4. Balance problem - ICD9: 781.99, ICD10: R26.89 5. Cervical stenosis of spinal canal - ICD9: 723.0, ICD10: M48.02 Patient with improvement in falls, only had 1 fall that was minor last night in the last few months, no major injuries. Did follow with neurosurgery and was told this is likely going to continue to progress and may need a wheelchair in the future. Is currently using a walker for ambulation. Notes significant improvement in weakness after physical therapy and is continuing exercises at home. Encouraged conservative therapy and following up with neurosurgery as indicated. Patient and family agreeable to treatment plan of care at this time, questions were answered. Patient to follow-up in 3 to [address] Pinto. Jayda Ace PA-C Alzheimer's Society: Join to learn about many resources and supports for you, as the caregiver Community Resources: E.g. LIFE - A Dementia Friendly Foundation on the [place] side [facility]. UPHOLSTERY TECHNICIAN/OT/PT: Speech therapy, Occupational therapy, Physical Therapy Driving: Do you have safety concerns? Power of Contact Center Associate/ planning of the patient's will Project Lifesaver: Local police will keep records of your loved one if they tend to get lost, and will bring them home. Lifeline: emergency response button/necklace/bracelet Caregiver Health: Important to ensure you are taking care of your mental and physical health so you can care for your loved one SW consult: Do you want a social work referral to understand what resources are available to you? This is a 69 year old male followed for progressive dementia Current medication treatment: Namenda 5 mg twice daily Indication for repeat cognitive testing: No Encounter Diagnosis ICD-10-CM 1. Dementia without behavioral disturbance (HCC) F03.90 CONSULT TO HORSE RACE TIMER memantine (NAMENDA) 5 mg tablet 2. Memory loss R41.3 CONSULT TO HORSE RACE TIMER 3. Frequent falls R29.6 4. Balance problem R26.89 5. Cervical stenosis of spinal canal M48.02 Return in about 4 months (around 05/10/2025), or Dr. Pinto ([facility]). Chart, labs,and relevant images reviewed. Chief Complaint:Patient presents with: Established Patient: Memory loss, dementia Chart Review: 08/07/24 ASSESSMENT/PLAN: 1. Subdural hematoma (HCC) - ICD9: [...] is frequent falls. Following with neurosurgery due (more content not included)... [facility] 01-08-2025 History of Present illness Narrative Images from the original note were not included. [facility] Name: Patricio Padron Age: [age] year old Gender: male Primary Care Provider: Yanet Adams MD 01/08/2025 - General Neurology, Jayda Ace PA-C ASSESSMENT ASSESSMENT/PLAN: 1. Dementia without behavioral disturbance (HCC) - ICD9: 294.20, ICD10: F03.90 (primary diagnosis) 2. Memory loss - ICD9: 780.93, ICD10: R41.3 Patient presents for dementia follow-up. No significant change in memory since last appointment, unable to repeat MoCA with due to time today. Notes she did start increasing physical activity at home to avoid falls and worsening weakness in the lower extremities. However is not very cognitively active and primarily watches the news throughout the day. Compliant with Namenda 5 mg twice daily. Patient is primarily concerned today about his driving evaluation, was told to no longer drive but states the test was not fair as his hand was blocking the written exam in certain sections causing him to miss certain points. Unclear history with this. They discussed this with the facility and they stated that that he can retake this test if a new order is placed, new order was placed today, encouraged no driving until test is completed. Encouraged conservative therapy as well, deferring any further increasing Namenda at this time. Patient's also concerned about sleep. Notes that he has been sleeping a lot more, roughly 12 to 14 hours a night. States that she read online that this was relatively normal for dementia however, this is relatively new over the last few months. Patient without any wandering at nighttime, discussed conservative sleep management including trying melatonin a few hours before bedtime, sleep hygiene. Should this persist may follow-up with Dr. Pinto for further evaluation at next appointment. 3. Frequent falls - ICD9: V15.88, ICD10: R29.6 4. Balance problem - ICD9: 781.99, ICD10: R26.89 5. Cervical stenosis of spinal canal - ICD9: 723.0, ICD10: M48.02 Patient with improvement in falls, only had 1 fall that was minor last night in the last few months, no major injuries. Did follow with neurosurgery and was told this is likely going to continue to progress and may need a wheelchair in the future. Is currently using a walker for ambulation. Notes significant improvement in weakness after physical therapy and is continuing exercises at home. Encouraged conservative therapy and following up with neurosurgery as indicated. Patient and family agreeable to treatment plan of care at this time, questions were answered. Patient to follow-up in 3 to [address] Pinto. Jayda Ace PA-C Alzheimer's Society: Join to learn about many resources and supports for you, as the caregiver Community Resources: E.g. LIFE - A Dementia Friendly Foundation on the [place] side [facility]. UPHOLSTERY TECHNICIAN/OT/PT: Speech therapy, Occupational therapy, Physical Therapy Driving: Do you have safety concerns? Power of Contact Center Associate/ planning of the patient's will Project Lifesaver: Local police will keep records of your loved one if they tend to get lost, and will bring them home. Lifeline: emergency response button/necklace/bracelet Caregiver Health: Important to ensure you are taking care of your mental and physical health so you can care for your loved one SW consult: Do you want a social work referral to understand what resources are available to you? This is a 69 year old male followed for progressive dementia Current medication treatment: Namenda 5 mg twice daily Indication for repeat cognitive testing: No Encounter Diagnosis ICD-10-CM 1. Dementia without behavioral disturbance (HCC) F03.90 CONSULT TO HORSE RACE TIMER memantine (NAMENDA) 5 mg tablet 2. Memory loss R41.3 CONSULT TO HORSE RACE TIMER 3. Frequent falls R29.6 4. Balance problem R26.89 5. Cervical stenosis of spinal canal M48.02 Return in about 4 months (around 05/10/2025), or Dr. Pinto ([facility]). Chart, labs,and relevant images reviewed. Chief Complaint:Patient presents with: Established Patient: Memory loss, dementia Chart Review: 08/07/24 ASSESSMENT/PLAN: 1. Subdural hematoma (HCC) - ICD9: [...] Patient and family like this faxed to [employer] and this was done. In terms of memory, no changes at this time, encouraged cognitive exercises as patient is primarily watching television throughout the day. Discussed increasing puzzles, conversation, reading throughout the day to help stimulate his brain. Patient and agreeable to treatment plan of care at this time, questions were answered. Patient to follow-up in 5 to 6 months. Jayda Ace PA-C HPI: Last seen on 08/07/24 for dementia. Memory stable on namenda 5mg bid, having frequent falls. Sedentary. Has severe cervical stenosis but deferring surgery. Concern for deconditioning as well, sent to PT and neurosurg. Neurosurg encouraged follow up if he desires surgery. Deferred. Patient presents with his for follow-up appointment. Notes that memory has been stable subjectively but has been having some increase in sleep. Patient typically goes to bed at 10:30 at night and wakes up at noon. notes that if he wakes up earlier than last or if she has to wake him up he will be more confused and unsteady throughout the day. Notes that he does wake up a few times throughout the night, but no wandering or worsening confusion. States that she has read online that this could be natural progression of dementia. Does not believe he snores or has apnea episodes. Notes that he did complete physical therapy after last appointment and notes significant improvement in the strength in his lower extremities. Is only had 1 fall since his last appointment that was last night. States that he went to sit in the chair and was bent over, states that he tipped too far forward and fell onto the ground. No major injuries with this, no head injuries and was able to get back off the ground. Otherwise, feels that his strength is overall improved. Using a walker now to ambulate around the house. Is following with neurosurgery and is still deferring cervical spine surgery. Is concerned with his driving evaluation. Patient was recommended to no longer drive based off of occupational therapy driving evaluation. States he does not believe this was a fair test as part of his written test was covered by his hand and was not graded. Talk to the facility and they need a new order to be placed in order for him to retake this. Otherwise no concerns today. After discharge from physical therapy, still doing exercises at home 5-6 nights a week. Is not very cognitively active, primarily watches the news Of note, patient's blood pressure was noted to be a bit low today, notes poor water intake, notes that she is able to get an Ensure in him daily as well as a propel but is trying to increase his water intake. No dizziness or lightheadedness. Sleep concerns? yes, sleeping too much Eating/nutrition concerns? No, did have some weight loss last fall but improved. Med side effects concerns? no Hallucinations? no Social work consult interest? no Wandering/getting lost concern? no Caregiver burnout concern? yes, Driving safety concern? Yes would like to repeat this. 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 pravastatin (PRAVACHOL) 40 mg tablet Take 1 tablet by mouth once daily. acetaminophen (TYLENOL) 325 mg tablet Take 2 tablets by mouth every 6 hours as needed for Pain. memantine (NAMENDA) 5 mg tablet Take 1 tablet by mouth two times a day. ALLERGIES No Known Allergies FAMILY HISTORY Problem Relation Age of Onset Arthritis Mother Cancer Mother melanoma Heart Mother Viral myocarditis. GI Father ulcers PAST SURGICAL HISTORY Procedure Laterality Date PAST SURGICAL HISTORY OF flexible cystoscopy PAST SURGICAL HISTORY OF 1958 tonsillectomy PAST SURGICAL HISTORY OF 2017 left eye surgery PAST SURGICAL HISTORY OF 2023 Surgery to drain hematoma on brain- not successful TRANSURETHRAL ELEC-SURG PROSTATECTOM N/A 08/18/2021 TRANSURETHRAL ELEC-SURG PROSTATECTOM 2019 Social Hx: @Alcohol Use: Not At Risk (12/27/2024) AUDIT-C Frequency of Alcohol Consumption: Never Average Number of Drinks: Patient does not drink Frequency of Binge Drinking: Never Tobacco Use: High Risk (08/20/2024) Patient History Smoking Tobacco Use: Every Day Smokeless Tobacco Use: Former Passive Exposure: Not on file 01/08/25 1117 BP: 106/74 Pulse: 98 Repeat MoCA deferred today due to time. Neurologic Exam Cognitive and Language: Alert and answered questions appropriately. Language was fluent. Cranial Nerves: Extraocular movements were full with no diplopia or nystagmus. Facial strength was symmetric. Motor: Moving all 4 extremities Sensory: No significant evidence of neglect Coordination: In wheelchair Labs: Lab Results Component Value Date WBC 10.20 07/04/2024 HCT 45.7 07/04/2024 MCV 87.5 07/04/2024 PLT 254 07/04/2024 Lab Results Component Value Date HBA1C 5.7 01/02/2025 HBA1C 5.7 07/04/2024 HBA1C 5.9 07/05/2023 HBA1C 5.8 05/30/2014 Cholesterol, Total Date Value Ref Range Status 07/04/2024 174 <200 mg/dL Final Comment: <200 mg/dL, Desirable 200-239 mg/dL, Borderline high >239 mg/dL, High HDL Cholesterol Date Value Ref Range Status 07/04/2024 60 >39 mg/dL Final Comment: 40-59 mg/dL, Acceptable >59 mg/dL, High: Negative risk factor for coronary heart disease <40 mg/dL, Low: Positive risk factor for coronary heart disease LDL Cholesterol Date Value Ref Range Status 07/04/2024 94 <100 mg/dL Final Comment: <100 mg/dL, Optimal 100-129 mg/dL, Near optimal/above optimal 130-159 mg/dL, Borderline high 160-189 mg/dL, High >189 mg/dL, Very high Secondary prevention optimal LDL Cholesterol levels are recommended to be < 70 mg/dL Triglyceride Date Value Ref Range Status 07/04/2024 98 <150 mg/dL Final Comment: <150 mg/dL, Normal 150-199 mg/dL, Borderline high 200-499 mg/dL, High >499 mg/dL, Very high Lab Results Component Value Date TSH 1.860 03/01/2023 Lab Results Component Value Date B12 577 05/03/2022 Results for orders placed or performed in visit on 01/02/25 HEMOGLOBIN A1C Result Value Ref Range Hemoglobin A1C 5.7 (H) 4.3 - 5.6 % Estimated Average Glucose 117 mg/dL Radiology: MRI Head/Brain - Last 2 Impressions MRI BRAIN WO IVCON Exam End: 05/17/2022 3:52 PM (Final result) Impression: IMPRESSION: No evidence of an acute intracranial infarction. Moderate diffuse volume loss and mild chronic small vessel ischemia. ... This note was dictated using Musations speech recognition software and may contain some errors that were a result of the program not accurately transcribing what was dictated, despite efforts to make corrections. Note that unless urgent, test and MRI results will be discussed at next follow-up visit. PROMIS (Patient-Reported Outcomes Measurement Information System) is a set of person-centered measures that evaluates and monitors physical, social, and emotional health. It can be used with the general population and with individuals living with chronic conditions. PROMIS 10: PHYSICAL AND MENTAL HEALTH: 07/02/2024 PHQ-9 PHQ-2 Score 3 PHQ-9 Score 5 Medical Decision Making: Medical Decision Making Level: 1 - N/A I spent a total of 35 minutes on the date of the service which included preparing to see the patient, [id number] patient care, completing clinical documentation, obtaining and/or reviewing separately obtained history, performing a medically appropriate examination, counseling and educating the patient/family/caregiver, and ordering medications, tests, or procedures. documented in this encounter [facility] 01-02-2025 Note HNO ID: [id number] Author: YANET ADAMS MD Service: ? Author Type: Physician Type: Progress Notes Filed: 01/02/2025 11:12 Note Text: Patient presents with: 6 Month Exam HPI: Patient presents today for office visit for follow up. Palliative medicine through [facility] now. Weight: Drinking 1 Ensure daily. Keeping snacks and water by his chair. Also drinking 1 Propel daily. Moms meals daily so having 2 meals daily. Has gained some weight back. Had been lower at home but is coming back up. . He is getting Mom's meals which is helping as well. Has snacks. Seeing neurology and neurosurgery. Has seen urology as well. We have followed his sugars. Last A1c was 5.7 On hyrtrin. Bp is good. No dizziness. No issues with cholesterol meds. No chest pain or shortness of breath. No more falls recently. Has done physical therapy. Keeping up with exercises. No gi or gu issues. Needs help with bathing and dressing after but otherwise can dress himself. MEDICATIONS: Current Outpatient Medications Medication Sig memantine (NAMENDA) 5 mg tablet Take 1 tablet by mouth two times a day. terazosin (HYTRIN) 5 mg capsule Take 1 capsule by mouth daily at bedtime. pravastatin (PRAVACHOL) 40 mg tablet Take 1 tablet by mouth once daily. ibuprofen (MOTRIN) 400 mg tablet Take by [...] lesion 07/26/2023 Rosacea Subarachnoid hemorrhage (HCC) 08/11/2023 PAST SURGICAL HISTORY Procedure Laterality Date PAST SURGICAL HISTORY OF flexible cystoscopy PAST SURGICAL HISTORY OF 1958 tonsillectomy PAST SURGICAL HISTORY OF 2017 left eye surgery PAST SURGICAL HISTORY OF 2023 Surgery to drain hematoma on brain- not successful TRANSURETHRAL ELEC-SURG PROSTATECTOM N/A 08/18/2021 TRANSURETHRAL ELEC-SURG [...] today and recommended the following in detail. Advance Directive Discussion due on 10/17/2024 Colorectal Cancer Screening due on 01/17/2025 VITALS: BP 100/72 Pulse 85 Wt 66.7 kg (147 lb) SpO2 97% BMI 24.46 kg/m? Last 4 Encounter Wt Readings: Date: Wt: 01/02/2025 66.7 kg (147 lb) 08/20/2024 67.7 kg (149 lb 4 oz) 08/07/2024 67.9 kg (149 lb 12.8 oz) 07/31/2024 68.9 kg (152 lb) PHYSICAL EXAMINATION: General appearance: Well appearing, [...] Musculoskeletal: No joint swelling, deformity, or tenderness ASSESSMENT/PLAN: 1. Personal history of traumatic brain injury - ICD9: V15.52, ICD10: Z87.820 (primary diagnosis) - doing well. 2. Dementia without behavioral disturbance (HCC) - ICD9: 294.20, ICD10: F03.90 - continue meds. Refill given. - MEMANTINE 5 MG TABLET 3. Cervical myelopathy (HCC) - ICD9: 721.1, ICD10: G95.9 - keep up exercise. 4. Pure hypercholesterolemia - ICD9: 272.0, ICD10: E78.00 - continue pravastatin. 5. Prediabetes - ICD9: 790.29, ICD10: R73.03 - follow labs. - HEMOGLOBIN A1C 6. Mild cognitive impairment - ICD9: 331.83, ICD10: G31.84 - stable. 7. History of subdural hematoma - ICD9: V12.59, ICD10: Z86.79 - stable. 8. History of subarachnoid hemorrhage - ICD9: V12.59, ICD10: Z86.79 - stable. 9. Screening for colon cancer - ICD9: V76.51, ICD10: Z12.11 - IMMUNOCHEMICAL FECAL OCCULT BLOOD TEST Yanet Adams MD [facility] 01-02-2025 History of Present illness Narrative Patient presents with: 6 Month Exam HPI: Patient presents today for office visit for follow up. Palliative medicine through [facility] now. Weight: Drinking 1 Ensure daily. Keeping snacks and water by his chair. Also drinking 1 Propel daily. Moms meals daily so having 2 meals daily. Has gained some weight back. Had been lower at home but is coming back up. . He is getting Mom's meals which is helping as well. Has snacks. Seeing neurology and neurosurgery. Has seen urology as well. We have followed his sugars. Last A1c was 5.7 On hyrtrin. Bp is good. No dizziness. No issues with cholesterol meds. No chest pain or shortness of breath. No more falls recently. Has done physical therapy. Keeping up with exercises. No gi or gu issues. Needs help with bathing and dressing after but otherwise can dress himself. MEDICATIONS: Current Outpatient Medications Medication Sig memantine (NAMENDA) 5 mg tablet Take 1 tablet by mouth two times a day. terazosin (HYTRIN) 5 mg capsule Take 1 capsule by mouth daily at bedtime. pravastatin (PRAVACHOL) 40 mg tablet Take 1 tablet by mouth once daily. ibuprofen (MOTRIN) 400 mg tablet Take by [...] lesion 07/26/2023 Rosacea Subarachnoid hemorrhage (HCC) 08/11/2023 PAST SURGICAL HISTORY Procedure Laterality Date PAST SURGICAL HISTORY OF flexible cystoscopy PAST SURGICAL HISTORY OF 1958 tonsillectomy PAST SURGICAL HISTORY OF 2017 left eye surgery PAST SURGICAL HISTORY OF 2023 Surgery to drain hematoma on brain- not successful TRANSURETHRAL ELEC-SURG PROSTATECTOM N/A 08/18/2021 TRANSURETHRAL ELEC-SURG [...] today and recommended the following in detail. Advance Directive Discussion due on 10/17/2024 Colorectal Cancer Screening due on 01/17/2025 VITALS: BP 100/72 Pulse 85 Wt 66.7 kg (147 lb) SpO2 97% BMI 24.46 kg/m Last 4 Encounter Wt Readings: Date: Wt: 01/02/2025 66.7 kg (147 lb) 08/20/2024 67.7 kg (149 lb 4 oz) 08/07/2024 67.9 kg (149 lb 12.8 oz) 07/31/2024 68.9 kg (152 lb) PHYSICAL EXAMINATION: General appearance: Well appearing, [...] Musculoskeletal: No joint swelling, deformity, or tenderness ASSESSMENT/PLAN: 1. Personal history of traumatic brain injury - ICD9: V15.52, ICD10: Z87.820 (primary diagnosis) - doing well. 2. Dementia without behavioral disturbance (HCC) - ICD9: 294.20, ICD10: F03.90 - continue meds. Refill given. - MEMANTINE 5 MG TABLET 3. Cervical myelopathy (HCC) - ICD9: 721.1, ICD10: G95.9 - keep up exercise. 4. Pure hypercholesterolemia - ICD9: 272.0, ICD10: E78.00 - continue pravastatin. 5. Prediabetes - ICD9: 790.29, ICD10: R73.03 - follow labs. - HEMOGLOBIN A1C 6. Mild cognitive impairment - ICD9: 331.83, ICD10: G31.84 - stable. 7. History of subdural hematoma - ICD9: V12.59, ICD10: Z86.79 - stable. 8. History of subarachnoid hemorrhage - ICD9: V12.59, ICD10: Z86.79 - stable. 9. Screening for colon cancer - ICD9: V76.51, ICD10: Z12.11 - IMMUNOCHEMICAL FECAL OCCULT BLOOD TEST Yanet Adams MD documented in this encounter [facility] 10-15-2024 Telephone encounter Note Patient active MyChart. Patient notified via Send Word Now message. Park Coles MA [facility] 10-15-2024 Miscellaneous Notes Patient active MyChart. Patient notified via Send Word Now message. Park Coles MA Come in to see of us with continued weight loss. documented in this encounter [facility] 10-15-2024 Telephone encounter Note Come in to see of us with continued weight loss. [facility] 09-28-2024 Telephone encounter Note Palliative Medicine Referral Assessment Referral Accepted: Yes, Location: Pall Med at Home. Patient current location: Home: Timeframe for scheduling: soonest available Pall Med appropriate diagnosis: R27.0 (ICD-10-CM) - Ataxia, [id number] (ICD-10-CM) - Personal history of traumatic brain xndsrdJ25.84 (ICD-10-CM) - Mild cognitive impairment Established with Inpatient Pall Med team: no Reason for consult: introduction to services, goals of care, fatigue, weight loss/poor appetite, symptom support , and weakness, falls and chronic non-cancer pain with cervical myelopathy Virtual Visit - preferred due to chronic pain Okay for PMH- no safety concerns identified by nurse. Call Chalo to schedule. DEIDRE Roy Harness Fitter September 28, 2024 [facility] 09-28-2024 Miscellaneous Notes Palliative Medicine Referral Assessment Referral Accepted: Yes, Location: Pall Med at Home. Patient current location: Home: Timeframe for scheduling: soonest available Pall Med appropriate diagnosis: R27.0 (ICD-10-CM) - Ataxia, [id number] (ICD-10-CM) - Personal history of traumatic brain ohhohdL14.84 (ICD-10-CM) - Mild cognitive impairment Established with Inpatient Pall Med team: no Reason for consult: introduction to services, goals of care, fatigue, weight loss/poor appetite, symptom support , and weakness, falls and chronic non-cancer pain with cervical myelopathy Virtual Visit - preferred due to chronic pain Okay for PMH- no safety concerns identified by nurse. Call Chalo to schedule. Mirna Mosquera RNCC Harness Fitter September 28, 2024 documented in this encounter [facility] 09-27-2024 Telephone encounter Note Ok to do [facility] 09-27-2024 Miscellaneous Notes Ok to do documented in this encounter [facility] 08-20-2024 History of Present illness Narrative NEUROSURGERY FOLLOW UP OFFICE NOTE Kawdwo Srinivasan MD, PhD Date of visit: August 20, 2024 Patient Name: Mr.Gary Augustin Padron Date of : 1955 Current Age: [age] year old Sex: male MRN/E# [id number] Last Office Visit: 08/15/2024 Chief Complaint: Patient presents with: Established Patient SUBJECTIVE: HPI The patient presented to [facility] ED on 08/11/2023 after being unsteady [...] worsening symptoms and was evaluated by Dr. Rivero in office on 09/22/2023 to which he [...] in 1 month with a repeat CT head. At his last visit on 11/21/2023 he stated he had been doing okay since his last visit. He continued with confusion and forgetfulness. He felt he continued to drag his right foot with ambulation and had continued use of a cane. He had fallen 4 times since his last visit. He denied any headaches, lightheadedness, nausea, vomiting, visual or hearing changes. He had since completed a course of therapy at [facility] in [place] and was to continue with exercises with [employer]. He denied any cervical pain at that time or any radicular symptoms. His CT head demonstrated almost complete resolution of his right sided acute on chronic subdural hematoma. At that point, the attention shifted to his cervical myelopathy. He was having recurrent falls. His level of interest in surgery was not sabiha and was a committed smoker. They were to follow up as needed regarding his cervical spine, prompting his visit today. Today he states he denies any cervical pain. Denies radiation down his arms. Denies paresthesia or weakness. Denies loss of bowel or bladder. Endorses urinary urgency with incontinence at times due to not making it to the bathroom fast enough. Notes frequent falls with the most recent last Tuesday where he fell and hit his head on cement. Presented to the ED, work up was negative per the . He feels his leg weakness has worsened and continues with use of a Rolator. Notes he is fatigued easily. He notes not being able to walk long distances without having to stop and sit down. Currently participating with physical therapy at [facility]. Saw neurology as well. He continues with smoking. He presents for imaging review, evaluation and plan of care. Symptoms: falls, leg weakness, use of Rolator Smoker: endorses less than 1/2 PPD Diabetic: denies Anticoagulants / Antiplatelets: denies Occupation: retired PREVIOUS CONSERVATIVE TREATMENTS: Mobic Tylenol Physical therapy- [facility] in [place] PREVIOUS SURGERY: None PAIN EVALUATION No data found in the last 1 encounters. PAST MEDICAL HISTORY Diagnosis Date Arthritis BPH with obstruction/lower urinary tract symptoms Renal lesion 07/26/2023 Rosacea Subarachnoid hemorrhage (HCC) 08/11/2023 PAST SURGICAL HISTORY Procedure Laterality Date PAST SURGICAL HISTORY OF flexible cystoscopy PAST SURGICAL HISTORY OF 1958 tonsillectomy PAST SURGICAL HISTORY OF 2017 left eye surgery PAST SURGICAL HISTORY OF 2023 Surgery to drain hematoma on brain- not successful TRANSURETHRAL ELEC-SURG PROSTATECTOM N/A 08/18/2021 TRANSURETHRAL ELEC-SURG PROSTATECTOM 2019 FAMILY HISTORY Problem Relation Age of Onset Arthritis Mother Cancer Mother melanoma Heart Mother Viral myocarditis. GI Father ulcers ALLERGIES No Known Allergies Current Outpatient Medications Medication Sig Dispense Refill memantine (NAMENDA) 5 mg tablet Take 1 tablet by mouth two times a day. 60 tablet 5 terazosin (HYTRIN) 5 mg capsule Take 1 capsule by mouth daily at bedtime. 90 capsule 3 pravastatin (PRAVACHOL) 40 mg tablet Take 1 tablet by mouth once daily. 90 tablet 3 ibuprofen (MOTRIN) 400 mg tablet Take by mouth. meloxicam (MOBIC) 15 mg tablet Take 1 tablet by mouth once daily. With food. 30 tablet 1 minocycline (MINOCIN, DYNACIN) 50 mg capsule Take 1 capsule by mouth twice daily. 180 capsule 3 acetaminophen (TYLENOL) 325 mg tablet Take [...] for cold intolerance and heat intolerance. Genitourinary: Positive for urgency. Negative for difficulty urinating and frequency. Musculoskeletal: Positive for gait problem. Negative for back pain, neck pain and neck stiffness. Skin: Negative for rash and wound. Allergic/Immunologic: Negative for environmental allergies and food allergies. Neurological: Positive for weakness. Negative for dizziness, light-headedness, numbness and headaches. Hematological: Does not bruise/bleed easily. Psychiatric/Behavioral: Negative for agitation. The patient is not nervous/anxious. OBJECTIVE: BP 124/87 Pulse 84 Resp 16 Wt 149 lb 4 oz (67.7kg) SpO2 98% Physical Exam I repeated physical examination with Patricio today. He does not exhibit a pronator drift providing some reassurance that his subdural hematoma is not reaccumulated. Patricio continues to have hyperreflexia and a right-sided Eldon sign consistent with cervical myelopathy which is now a longstanding diagnosis. Data Review IMAGING STUDIES: XR Cervical 08/20/2024: in process Assessment and Plan: Today Patricio and his return to my clinic. I last saw Patricio alas over 6 months ago. Patricio has had the expected decline in his level of function. He is now requiring a wheeled walker as opposed to a cane. He continues to smoke without an evident or suggestive reduction in his habit. Patricio's seems to be quite frustrated that Patricio does not want surgery but Patricio seems clear once again today that he is not at all interested in an intervention of this nature. I certainly respect Patricio's right to decide what is right for him. I discussed that we anticipate over time that carries like to be wheelchair-bound and that when that occurs the risk-benefit ratio for surgery starts becoming less favorable. I am pleased to see Patricio again in any point the future that he might desire in particular if he wishes to proceed with surgery but for the moment I have suggested as needed follow-up until such a desire comes forward. Attestation: The following portions of the patient's [...] PhD This note was partially generated using Musations voice recognition system, and there may be some incorrect words, spellings, and punctuation that were not noted in checking the note before saving. documented in this encounter [facility] 08-20-2024 Note HNO ID: [id number] Author: KWADWO SRINIVASAN MD, PhD Service: ? Author Type: Physician Type: Progress Notes Filed: 08/20/2024 16:31 Note Text: NEUROSURGERY FOLLOW UP OFFICE NOTE Kwadwo Srinivasan MD, PhD Date of visit: August 20, 2024 Patient Name: Mr.Gary Augustin Padron Date of : 1955 Current Age: [age] year old Sex: male MRN/E# [id number] Last Office Visit: 08/15/2024 Chief Complaint: Patient presents with: Established Patient SUBJECTIVE: HPI The patient presented to [facility] ED on 08/11/2023 after being unsteady [...] worsening symptoms and was evaluated by Dr. Rivero in office on 09/22/2023 to which he [...] in 1 month with a repeat CT head. At his last visit on 11/21/2023 he stated he had been doing okay since his last visit. He continued with confusion and forgetfulness. He felt he continued to drag his right foot with ambulation and had continued use of a cane. He had fallen 4 times since his last visit. He denied any headaches, lightheadedness, nausea, vomiting, visual or hearing changes. He had since completed a course of therapy at [facility] in [place] and was to continue with exercises with [employer]. He denied any cervical pain at that time or any radicular symptoms. His CT head demonstrated almost complete resolution of his right sided acute on chronic subdural hematoma. At that point, the attention shifted to his cervical myelopathy. He was having recurrent falls. His level of interest in surgery was not sabiha and was a committed smoker. They were to follow up as needed regarding his cervical spine, prompting his visit today. Today he states he denies any cervical pain. Denies radiation down his arms. Denies paresthesia or weakness. Denies loss of bowel or bladder. Endorses urinary urgency with incontinence at times due to not making it to the bathroom fast enough. Notes frequent falls with the most recent last Tuesday where he fell and hit his head on cement. Presented to the ED, work up was negative per the . He feels his leg weakness has worsened and continues with use of a Rolator. Notes he is fatigued easily. He notes not being able to walk long distances without having to stop and sit down. Currently participating with physical therapy at [facility]. Saw neurology as well. He continues with smoking. He presents for imaging review, evaluation and plan of care. Symptoms: falls, leg weakness, use of Rolator Smoker: endorses less than 1/2 PPD Diabetic: denies Anticoagulants / Antiplatelets: denies Occupation: retired PREVIOUS CONSERVATIVE TREATMENTS: Mobic Tylenol Physical therapy- [facility] in [place] PREVIOUS SURGERY: None PAIN EVALUATION No data found in the last 1 encounte (more content not included)... [facility] 08-15-2024 Telephone encounter Note Spoke with patient's , Chalo. She stated that Patricio has been having more balance issues and using his walker more often. He is not having any more episodes of incontinence. She stated that he seems weaker though and has more trouble walking. She wanted to get him seen in office. I told them Dr. Turner is here Tuesday and we could set up an appointment with some x-rays and evaluation since he has not been seen by him in quite some time. Asked them to get here early to get some x-rays and then Dr. Srinivasan can evaluate patient if further imaging is warranted. Juliette Ramesh RN [facility] 08-15-2024 Miscellaneous Notes Spoke with patient's , Chalo. She stated that Patricio has been having more balance issues and using his walker more often. He is not having any more episodes of incontinence. She stated that he seems weaker though and has more trouble walking. She wanted to get him seen in office. I told them Dr. Turner is here Tuesday and we could set up an appointment with some x-rays and evaluation since he has not been seen by him in quite some time. Asked them to get here early to get some x-rays and then Dr. Srinivasan can evaluate patient if further imaging is warranted. Juliette Ramesh RN documented in this encounter [facility] 08-07-2024 Instructions Jayda Ace PA-C - 08/07/2024 11:50 AM EDT Increase brain exercises while watching television Continue the namenda 5 mg twice daily Physical therapy for strengthening and fall prevention, use walker around the house to prevent falls. Increase water intake to 40-60 ounces a day Follow up in 5-6 months documented in this encounter [facility] 08-07-2024 Note HNO ID: [id number] Author: JAYDA ACE PA-C Service: ? Author Type: Physician Photocopying Machine Operator Type: Progress Notes Filed: 08/07/2024 12:21 Note [...] have some decrease in MoCA today with 12/25, previous was . No significant subjective change based off of patient and family report. However, patient's is very concerned about his driving, patient was told to have occupational therapy evaluation at last appointment but deferred this and has been sober and driving on his own. Patient's messaged on [employer] and expressed a deep concern for his [...] COMPLAINT: follow up HISTORY OF PRESENT ILLNESS: Patricio Padron is a 69 year old male, [...] he was before. Can nolonger go to [employer] and walk around the store, is concerned [...] pain or swel (more content not included)... [facility] 08-07-2024 History of Present illness Narrative [...] driving on his own. Patient's messaged on [employer] and expressed a deep concern for his [...] COMPLAINT: follow up HISTORY OF PRESENT ILLNESS: Patricio Padron is a 69 year old male, [...] was before. Can no longer go to [facility] and walk around the store, is concerned [...] this time. Educated client and client's about nursing home from driving and provided resources to seek [...] Patient and family like this faxed to [employer] and this was done. In terms of [...] which included preparing to see the patient, [id number] patient care, completing clinical documentation, obtaining and/or reviewing separately obtained history, performing a medically appropriate examination, counseling and educating the patient/family/caregiver, and ordering medications, tests, or procedures. This document has been created with the use of voice recognition technology. It may contain inaccuracies: (e.g. misspellings, inaccurate syntax or word sense) that have escaped review. documented in this encounter [facility] 07-31-2024 Note HNO ID: [id number] Author: NEERAJ JACOBS PA-C Service: ? Author Type: Physician Photocopying Machine Operator Type: Progress Notes Filed: 07/31/2024 13:57 Note Text: [facility] ESTABLISHED PATIENT CLINIC NOTE Some elements copied from his previous note, which have been updated where appropriate, and all reflect current medical decision making from date of this visit. NAME: Patricio Padron CHIEF COMPLAINT: BPH HISTORY OF PRESENT ILLNESS: Patricio Padron is a 69 year old male [...] 1 year Appt w/ MANJIT Sullivan MT, SABINA with PSA prior MANJIT Montgomery MT, PADanyC [facility] 07-31-2024 History of Present illness Narrative Images from the original note were not included. [facility] ESTABLISHED PATIENT CLINIC NOTE Some elements copied from his previous note, which have been updated where appropriate, and all reflect current medical decision making from date of this visit. NAME: Patricio Padron CHIEF COMPLAINT: BPH HISTORY OF PRESENT ILLNESS: Patricio Padron is a 69 year old male\ [...] Jacobs MT, PA-C with PSA prior MANJIT Montgomery MT, PA-C Verified name and date of . CC Post Void Residual HPI: Patricio Padron is a 69 year old male. The patient is here now for an appointment with MANJIT Montgomery MT, PA-COV. Procedure: Explained procedure to patient and verbalizes understanding. Performed a PVR. Patient went to bathroom at 1100 and is unable to urinate at this time. . Results of scan: >186 mL The patient tolerated the procedure well. Plan: Appointment with Neeraj. documented in this encounter [facility] 07-31-2024 Note HNO ID: [id number] Author: BENY CHATTERJEE LPN Service: ? Author Type: LICENSED NURSE Type: Progress Notes Filed: 07/31/2024 13:57 Note Text: Verified name and date of . CC Post Void Residual HPI: Patricio Padron is a 69 year old male. The patient is here now for an appointment with MANJIT Montgomery MT, PA-COV. Procedure: Explained procedure to patient and verbalizes understanding. Performed a PVR. Patient went to bathroom at 1100 and is unable to urinate at this time. . Results of scan: >186 mL The patient tolerated the procedure well. Plan: Appointment with Neeraj. [facility] 07-18-2024 Telephone encounter Note Scheduled 07/27/2024. [facility] 07-18-2024 Miscellaneous Notes Scheduled 07/27/2024. documented in this encounter [facility] 07-13-2024 Telephone encounter Note Called patients to see if he ever presented to the ED for evaluation. Noted they have not. Noted continued weakness, and loss of bladder. Discussed again that we recommended he present to the ED for evaluation. She noted she would speak with him. Brandin Kebede RN [facility] 07-13-2024 Miscellaneous Notes Called patients to see if he ever presented to the ED for evaluation. Noted they have not. Noted continued weakness, and loss of bladder. Discussed again that we recommended he present to the ED for evaluation. She noted she would speak with him. Brandin Kebede RN documented in this encounter [facility] 07-10-2024 Telephone encounter Note Called patient in regards to mychart message. I recommended the patient present to [facility] ED for further evaluation. She expressed understanding and noted she would speak with the patient in regards. Encouraged her to call with further questions or concerns. Brandin Kebede RN [facility] 07-10-2024 Miscellaneous Notes Called patient in regards to mychart message. I recommended the patient present to [facility] ED for further evaluation. She expressed understanding and noted she would speak with the patient in regards. Encouraged her to call with further questions or concerns. Brandin Kebede RN documented in this encounter [facility] 07-02-2024 Note HNO ID: [id number] Author: YANET ADAMS MD Service: ? Author Type: Physician [...] 114/74 Pulse 84 Ht 165.1 cm (5' 5) Wt 68.3 kg (150 lb 9.2 oz) [...] behavioral disorders - (more content not included)... [facility] 07-02-2024 History of Present illness Narrative [...] 114/74 Pulse 84 Ht 165.1 cm (5' 5) Wt 68.3 kg (150 lb 9.2 oz) [...] ICD9: V79.8, ICD10: Z13.39 - ANXIETY SCREENING Yanet Adams MD documented in this encounter [facility] 09-04-2024 Telephone encounter Note Sent resources discussed in today's session. [facility] Work Phone: 06-20-2024 Miscellaneous Notes Sent resources discussed in today's session. documented in this encounter [facility] 06-20-2024 Note HNO ID: [id number] Author: CONNIE PEPE OTR/L Service: ? 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 State: [place] License/Permit #: [id number] Expires: 2025 Restrictions: B 5 Yr. Violation HX: None 5 Yr. MVA HX: None Handicap Parking Placard: Information not obtained this date. _ 1. Patricio Dawkins [employer] self report indicates an awareness of: Decreased balance Fatigue, or poor endurance Forgetting new information Difficulty remembering things from many years ago 2. [place] expressed confidence regarding driving when driving alone. 3. [place] expressed no concerns regarding driving. OBJECTIVE MEASURES [...] SHORT BLESSED TEST (more content not included)... 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 State: [place] License/Permit #: [id number] Expires: 2025 Restrictions: B 5 Yr. Violation HX: None 5 Yr. MVA HX: None Handicap Parking Placard: Information not obtained this date. _ 1. Patricio Dawkins [employer] self report indicates an awareness of: Decreased balance Fatigue, or poor endurance Forgetting new information Difficulty remembering things from many years ago 2. Patricio Padron expressed confidence regarding driving when driving alone. 3. Patricio Padron expressed no concerns regarding driving. OBJECTIVE [...] WNL @ 6/6 digits. Unable to recall film reproducer's name. Visual Scanning/Attention: Charlotte Making Part A (sec): 195 sec [place] Making Part B (sec): (not attempted due to significantly prolonged time required to complete Trails A) 50th percentile norm for age group: 70-79; Part A: 80 seconds, Part B: 196 seconds Ernesto Clock Drawing Test: Patricio Padron correctly included 3/8 criteria for this test. He failed to include or correctly place: all 12 hours in correct numeric order, starting with 12 at the top only the numbers 1-12 (no duplicates, omissions, or foreign markings) the numbers equally, or nearly so, from each other the numbers equally spaced, or nearly so, from the edge of the buckland one clock hand at the two o'clock [...] this report indicates the ability of the corporate driver to operate a motor vehicle on this date only. Due to the complex nature of the safe operation of a motor vehicle, and considering the demands of integrating changing environmental conditions, and visual, cognitive, and physical skills, successful completion of this program is not a guarantee of safe driving in the future. ASSESSMENT OF INSTRUMENTAL ADL AND COMMUNITY MOBILITY: Patricio Padron presents with the diagnosis of dementia [...] this time. Educated client and client's about nursing home from driving and provided resources to seek [...] Planned: 1 Patient to be see for Self-shelter management (10054), Community / Work Reintegration, Roentgenologist rehab evaluation PLAN FOR NEXT VISIT: Discontinue therapy services Patient demonstrates fair understanding of plan of care and treatment. The above goals and plan of care were discussed and agreed upon by patient/family. Billing: Total Treatment Time Minutes (timed/untimed) 114 Evaluation - Moderate Complexity (94210). Increased time required for evaluation due to re-explanation needed at times and increased processing time for attempts at and/or completion of tasks. Self Care / Home Management (25818): 1:1 time: 40 minutes (3 units: 38-52 mins) Community /Work Re-integration (62816): 1:1 time: 29 minutes (2 units: 23-37 mins) Total time: 114 minutes Connie Pepe OTR/L documented in this encounter [facility] 05-09-2024 Telephone encounter Note Next appointment 07/02/24 Pat Francis MA [facility] 05-09-2024 Miscellaneous Notes Next appointment 07/02/24 Pat Francis MA documented in this encounter [facility] 04-24-2024 Telephone encounter Note Pt in office to discuss. Oliva Wong LPN [facility] 04-24-2024 Miscellaneous Notes Pt in office to discuss. Oliva Wong LPN documented in this encounter [facility] 04-24-2024 Instructions Jayda Ace PA-C - 04/24/2024 12:00 PM EDT Will continue Namenda 5mg twice daily Increase physical activity, increase cognitive activity, increase water intake. Driving evaluation, do not drive until this is completed. Follow up in 3 months documented in this encounter [facility] 04-24-2024 History of Present illness Narrative ESTABLISHED [...] COMPLAINT: follow up HISTORY OF PRESENT ILLNESS: Patricio Padron is a 69 year old male, [...] conservative. Deferred neuropsych testing, namenda 5mg bid. MyChart message on 04/23/24 When we saw you last you asked about Patricio's driving skills. You had suggested he take [...] 10/11 Visuospatial: 10/21 Namin/3 Attention: 2 Abstraction: 0/2 Delayed recall: 05 Orientation: 03/22 GENERAL EXAM: General appearance: NAD, [...] driving on his own. Patient's messaged on [employer] and expressed a deep concern for his [...] which included preparing to see the patient, [id number] patient care, completing clinical documentation, obtaining and/or [...] and warrants attention documented in this encounter [facility] 12-30-2023 History of Present illness Narrative Patient [...] traumatic subarachnoid hemorrhage The CT head that Patricio had today showed almost complete resolution of his right-sided acute on chronic subdural hematoma. This is outstanding news. I did caution Patricio and his that these can recur and I discussed the types of symptoms that they should be on the look out for that might prompt consideration of repeat imaging. This point our attention shifts more to carry cervical myelopathy. My concern is that Patricio has concerning overall health and is having recurrent falls. Patricio's level of interest in the surgeries not high. Patricio is also a committed smoker. I talked at length about the natural history of cervical myelopathy which largely repeated aspects of a prior discussion that we had. I did discuss the role of surgery as well as the typical postoperative course and the risks and benefits. Patricio seemed very disinterested in the procedure or [...] 104/76 Pulse 101 Ht 165.1 cm (5' 5) Wt 68.9 kg (152 lb) SpO2 99% [...] ICD10: Z12.11 - FECAL OCCULT BLOOD TEST Yanet Adams MD documented in this encounter [facility] 12-13-2023 Instructions Jayda Ace PA-C - 12/13/2023 11:02 AM EST Continue with Namenda 5mg twice Increase water intake to 60 ounces a day, increase brain activities (reading, socializing, puzzles), increase physical activity Occupational therapy evaluation for driving Follow up in 3-4 months documented in this encounter [facility] 12-13-2023 History of Present illness Narrative ESTABLISHED [...] COMPLAINT: follow up HISTORY OF PRESENT ILLNESS: Patricio Padron is a 68 year old male, [...] very physically active, but does go to [employer] 3 times a week. Typically watches [...] lb 9.6 oz) BMI 25.06 kg/m MoCA: Visual-spatial: 3 ally namin/3 Attention: 12/20 Language: [...] with slight improvement since last appointment, was 16/ previously and is 18/ today. Following with [...] which included preparing to see the patient, [id number] patient care, completing clinical documentation, obtaining and/or [...] and warrants attention documented in this encounter [facility] 11-21-2023 History of Present illness Narrative NEUROSURGERY FOLLOW UP OFFICE NOTE Kwadwo Srinivasan MD, PhD Date of visit: November 21, 2023 Patient Name: Mr.Gary Augustin Padron Date of : 1955 Current Age: [age] year old Sex: male MRN/E# [id number] Last Office Visit: 10/13/2023 Chief Complaint: Patient presents with: Established Patient SUBJECTIVE: HPI The patient presented to [facility] ED on 08/11/2023 after being unsteady [...] worsening symptoms and was evaluated by Dr. Rivero in office on 09/22/2023 to which he [...] since completed a course of therapy at [facility] in [place] and is to continue with exercises with [employer]ne[employer]. He denies any cervical pain at this time or any radicular symptoms. He presents for imaging review, evaluation and plan of care. Symptoms: memory difficulties and forgetfulness. Use of cane and unsteady. falls. Smoker: endorses Diabetic: denies Anticoagulants / Antiplatelets: denies Occupation: retired PREVIOUS CONSERVATIVE TREATMENTS: Mobic Tylenol Physical therapy- [facility] in [place] PREVIOUS SURGERY: None PAIN EVALUATION No data [...] did not repeat a physical examination with Patricio today. 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 This is outstanding news. I did caution Patricio and his that these can recur and I discussed the types of symptoms that they should be on the look out for that might prompt consideration of repeat imaging. This point our attention shifts more to carry cervical myelopathy. My concern is that Patricio has concerning overall health and is having recurrent falls. Patricio's level of interest in the surgeries not high. Patricio is also a committed smoker. I talked at length about the natural history of cervical myelopathy which largely repeated aspects of a prior discussion that we had. I did discuss the role of surgery as well as the typical postoperative course and the risks and benefits. Patricio seemed very disinterested in the procedure or [...] PhD This note was partially generated using Musations voice recognition system, and there may be some incorrect words, spellings, and punctuation that were not noted in checking the note before saving. documented in this encounter [facility] 11-18-2023 Discharge summary Note Date/Time November 18, 2023 1:23pm [facility] Physical [facility] [address] [place] [address] / REHABILITATION SERVICES DISCHARGE SUMMARY MR#: [id number] Acct: [id number] Name: PATRICIO PADRON Rep #: [id number] 1 : 1955 68 From: Erik Valles DPT, OCS, CSCS Referring DrMaria Luisa: Status: REG RCR [facility] Discharge Summary D/C summary: It has been my pleasure to treat PATRICIO PADRON referred by KWADWO SRINIVASAN,with the diagnosis of SAH for a total of 13 visit(s). Discharge Date: 11/18/23 Please see the following information for a summary of their discharge status. Subjective Subjective: Doing well and ready to be done. Better than a month ago. Moving easier. Using cane all the time. Used it prior to incident. Activities at home are getting better. Walking in general is improving but still needs cane. No falls. Sleep is OK. Activiities normal. HEP: at home. Will continue with gym exercises. Overall Improvement % Improvement: 50 Objective Objective/Function: FGA is Ok,LEFS is improving. walking is short R step length intermittently with cane and I with and without cane today. trasnfers I. Wants to cotninue on his own vs more therapy. Goals Goal 1:: FGA 28/30 and no gait deviations in ambulation with LRD. Goal Progress: Not Progressing Goal 2:: I appropr HEP to limit future problems, home legs and gym legs, arms, core, balance. Goal Progress: Goal Met Goal 3:: Pt and feel mobility/activity 75% improved Goal Progress: 50% Goal 4:: LEFS50 Goal Progress: Progressing Plan Plan: d/c to HEP D/C Information Discharge Comments: Will continue via HEP d/c sentence: If there are questions or concerns regarding this patient's physical therapy, please feel free to call me at [phone]. Thank you for the referral of thispatient. Sincerely, Erik Valles DPT, OCS, CSCS Balance/Gait/Functional tests Balance/Special Test Scores Functional Gait Assessment Score: 26 % Disability: 13.3400 CATSIB Score (Max score 120 seconds): 120 Lower Extremity Functional Score: 47 Improvement % Improvement: 50 <Electronically signed by Erik Valles DPT, OCS, CSCS> 11/18/23 1323 CC: Dr. Yanet Adams MD; KWADWO SRINIVASAN ~ EBG Signed [facility] Work Phone: 1(573) 837-158412-07-2023 History of Present illness Narrative* Melissa Rivero MD - 09/22/2023 1:00 PM EST [facility] Initial Visit Patricio Padron CCF#: [id number] Date of Service: 09/22/2023 Primary Care Provider: Yanet Adams MD The patient was referred by Iraj Duran MD for opinion regarding chronic subdural hematoma,possible MMA embolization. I will provide a written report of my findings to the referring through letter, e communication, or epic. OUTPATIENT CONSULTATION Reason for Visit: Chronic subdural hematoma Handedness: left Clinic note by Dr Srinivasan on 09/12/23: The patient presented to [facility] ED on 08/11/2023 after being unsteady on his feet and did not remember events of the night prior. He noted he thought he fell and hit his head. He noted head pain with alaceration. Advanced imaging demonstrated a small tSAH. No [...] visual, language, speech, swallowing, motor, sensory, coordination, orgait deficits. Past Medical History: ACTIVE PROBLEM LIST [...] negative unless otherwise noted in HPI Melissa Rivero MD Patient Entered Questionnaires Health Status Impact [...] comprehension and to 2-step crossed commands, word andsentence repetition, and naming. No paraphasias. - Optic [...] 12 07/14/2021 21 IMPRESSION Right subdural hematoma, [id number] Mr Leisure is a good candidate for Right middle meningeal artery embolization for Right chronic subdural hematoma. We discussed the diagnosis, pathophysiology, and natural history of chronic subduralhematoma. I have explained the rationale behind the [...] like to proceed with Right middle meningeal arteryembolization. My office will schedule it as soon as possible. PLAN Right middle meningeal artery embolization under general anesthesia. Informed consent obtained. Follow up post R MMA embo: 4 weeks post embo, with Dr Srinivasan or Roger. SIGNATURE Melissa Rivero MD Staff, Neuroendovascular Intervention I spent 45 minutes reviewing EMR and imaging, face to face with the patient providing care and counseling, coordinating care, and documenting the encounter, on the day of the visit. CC Iraj Duran [address] [facility] [address] Yanet Adams [address] [facility] [place] [address] documented [facility] Miscellaneous Notes* Telephone Encounter - Brandin Kebede RN - 09/22/2023 10:08 AM EST called to clarify who would be preforming the procedure. She was asking about a shadia and I notified her I was unsure who Shadia was. Advised her their visit was with Dr. Rivero today. She asked further questions regarding DrMaria Luisa Rivero and wanted to make sure we knew he had early signs of dementia. Brandin Kebede RN [facility] Instructions* Patient Instructions* Melissa Rivero MD - 09/22/2023 3:40 AM EST Images [...] through a procedure called middle meningeal artery embolization. During a middle meningeal artery embolization, we [...] under anesthesia for the procedure, and we willplan to admit you to the hospital after [...] these signs, don't delay! Immediately call 911, orthe emergency medical services (EMS) number so an ambulance can be sent for you. Also, check the time so that you will know when the symptoms first appeared. It is very important to take immediate action, every second counts. Medical treatment may be available if action is taken early enough. [facility] Miscellaneous Notes* Telephone Encounter - Brandin Kebede RN - 09/20/2023 1:52 PM EST Patient's called and was requesting the number and referral for a MMA embolization. It appeared patient did present to the ED yesterday as recommended, but left AMA and neurosurgery recommended admission. stated he does not want to go back as I recommended. Discussed at length and she andshe states her is aware of recommendations. Notified her I would have Eneida contact her for information regarding visit with Dr Thompson. Advised again to present to the ED is new or worsening symptoms. Brandin Kebede RN documented in this [facility] History of Past illness Narrative* Problem Noted Date Diagnosed Date Resolved Date Subdural hematoma 09/19/2023 12/30/2023 Overview: Previous traumatic SAH on 08/12/23, follow up 09/12/23 repeat scan noted SDH Closed fracture of distal end of fibula 12/22/2022 12/22/2022 Closed head injury 12/22/2022 4 documented as of this encounter (statuses as of 12/30/2023) [facility]12-04-2023 Miscellaneous Notes* Telephone Encounter - Brandin Kebede [...] understanding. Brandin Kebede RN documented in this [facility] History of Present illness Narrative* Luis Mayfield RN - 08/27/2023 7:25 PM EST TRANSITION CARE MANAGEMENT (TCM) FOLLOW-UP NOTE Provider Action/FYI: TCM Chart review. Pt had NEURO f/u on 08/24/23 Telephone outreach deferred. Appointments for Next 60 Days Date Time Provider Location Dept Phone 09/12/2023 1:15 PM 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 [phone] 09/12/2023 2:[address] [facility] [phone] 09/12/2023 2:45 PM KWADWO SRINIVASAN [facility] [phone] Discharge Network Status: In-Network Discharge Summary: Pt discharged from [facility] on 08/12/23. Admitted for: Subarachnoid hemorrhage Manager Outreach plan for next outreach: No further follow up needed at this time JOSEPH Education Ordered -: No Signature Luis Mayfield RN August 27, 2023 documented in this encounter[facility]23 Instructions* Patient Instructions* Jayda Ace PA-C - 08/24/2023 11:46 AM EST Follow up with neurosurgery as scheduled Have imaging performed as scheduled Continue namenda 5mg twice daily Follow up in 3 months documented in this [facility] History of Present illness Narrative* Jayda Ace PA-C - 08/24/2023 11:07 AM EST ESTABLISHED PATIENT VISIT Last visit: 03/03/23 with Ashley Ewing MECHANICAL INTERN Z87.820 History of traumatic brain injury (primary [...] new or worsening symptoms occur. Ashley Ewing, SLOAN.MECHANICAL INTERN I spent a total of 45 minutes on the date of the service which included preparing to see the patient, [id number] patient care, completing clinical documentation, obtaining and/or reviewing separately obtained history, performing a medically appropriate examination, and counseling and educating the patient/family/caregiver. CHIEF COMPLAINT: Follow up HISTORY OF PRESENT ILLNESS: Patricio Padron is a 68 year old male, There were no vitals taken for this visit. with a PMH significant for Head injury 2007, MCI, DDD. Last seen by sAhley on 03/03/23- seen for TBI, memory loss. [...] since his fall as directed. Did see Anika Hernandez PA-C for spine and he feels that [...] BMI 24.94 kg/m GENERAL EXAM: MoCA: Visuospatial: 3/4 Namin Instant recall: 3 Attention: 11/22 Language: 2 Abstraction: 02 Delayed recall: 0 Orientation: 03/22 Previous MoCA [...] 781.99, ICD10: R26.89 4. SAH (subarachnoid hemorrhage) ([facility]) - ICD9: 430, ICD10: I60.9 5. Frequent [...] and memory is normal. MoCA today was 16 compared to previous which was 24. 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 Discussed [...] which included preparing to see the patient, numn-va-cyag patient care, completing clinical documentation, obtaining and/or [...] display for this encounter documented in this encounter[facility]23 History of Present illness Narrative* 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 [...] Status: In-Network Discharge Summary: Pt discharged from [facility] on 08/12/23. Admitted for: Subarachnoid hemorrhage Concerns: Denies Manager Outreach plan for next outreach: Will follow up 1 week JOSEPH Education Ordered -: No Signature 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 RN August 20, 2023 documented in this encounterSelect [facility]23 History of Present illness Narrative* Luis Mayfield RN - 08/15/2023 11:17 AM EDT TCM Home Visit Referral Source of Stratification: [facility] Admission Status: Discharged Readmission Risk Score: 10 ISABELA Score: 4 Patient meets program referral criteria: No Patient does not qualify for High Risk TCM Home Visit program due to: Discharged home, does not meet program criteria Luis Mayfield RN August 15, 2023 11:17 AM TRANSITIONAL [...] Location Dept Phone 08/24/2023 11:15 AM [facility] [phone] 09/12/2023 1:15 PM 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 [phone] 09/12/2023 2:[address] [facility] [phone] 09/12/2023 2:45 PM KWADWO [facility]INIVAS[facility] [phone] SUMMARY: Discharge Network Status: In-Network Discharge Pt discharged from [facility] on 08/12/23. Admitted for: Subarachnoid hemorrhage SUMMARY [...] patient: Yes Hi my name is Luis Mayfield RN and I am calling from the [facility] on behalf of your PCP, Yanet Adams MD I understand you were recently [...] like to speak with a social work state farm agent team member to help give you support for any [...] I will send your request to a news reporter who will contact and assist you with [...] possible). JOSEPH Education Ordered -: No Luis Mayfield RN documented in this encounterSelect [facility]10-[facility]-2023 Discharge summary Author Tahira Jenkins [facility] August 11, 2023 5:28am Note Date/Time August 11, 2023 1 :35am [facility] Medical Records Department [address] [place] [address] Emergency Department Summary 08/11/23 MR#: [id number] Acct: [id number] Name: PATRICIO PADRON Rep #:[id number] : 1955 68 From: Tahira Jenkins MD PCP: Dr. Yanet Adams MD Status:REG E R Location: ED HPI History of Present Illness Chief Complaint: Fall Informant: patient and spouse/S.O. Narrative Narrative: Patient presents after a fall at home. states that she was in bed and heard the patient fall on the stairs. He has early dementia and does not remember what happened. She states he was dazed when she got to him. He is otherwise been acting his normal self since the fall. He complains of some scalp pain and has a abrasion to the right posterior parietal scalp. Patient does have a history of a subdural hemorrhage in 2018. He is not on any anticoagulants. He has no neck or back pain. He did get up and ambulate several steps to the [facility] for EMS. [facility] Medical History Balance disorder Brain bleed Dementia Hyperlipidemia Home Medications Minocycline 50 mg PO BID atb 07/24/18 [History Last Taken 07/24/18 08:00 50 mg] pravastatin 20 mg tablet 40 mg PO QHS cholesterol 07/24/18 [History Last Taken 07/23/18 22:00 40 mg] terazosin 1 mg capsule 5 mg PO QHS Prostate 07/24/18 [History Last Taken 07/24/18 22:00 1 mg] ibuprofen 400 mg tablet 400 mg PO Q6H 08/11/23 [History Last Taken Unknown] meloxicam 15 mg tablet 15 mg PO DAILY 08/11/23 [History Last Taken Unknown] memantine 5 mg tablet 5 mg PO BID 08/11/23 [History Last Taken Unknown] Allergy/AdvReac Type Severity Reaction Status Date / Time Penicillins Allergy Upset Verified 08/11/23 00:14 Stomach Social History Smoking Status: Current every day smoker tobacco type: cigarettes ROS ROS ED Constitutional Constitutional ED: Denies chills or fever(s) Eyes Eyes: Denies change in vision ENT ENT ED: Denies rhinorrhea or sore throat Cardiovascular Cardiovascular: Denies chest pain or palpitations Respiratory/Chest Respiratory/Chest: Denies cough or dyspnea Gastrointestinal Gastrointestinal: Denies abdominal pain, nausea or vomiting Musculoskeletal Musculoskeletal: Denies back pain or extremity pain Integumentary Denies Abrasions or rash Neurologic Neurologic: Reports headache(s); Denies weakness Psychiatric Psychiatric: Denies anxiety or depression Allergic/Immunologic Allergic/Immunologic ED: Denies lip swelling or urticaria EXAM Physical Exam Const Vital Signs: 08/11/23 00:11 08/11/23 00:50 Temperature 98.4 F Temperature Source Temporal Pulse Rate 104 H Respiratory Rate 18 Respiratory Effort Normal Respiratory Depth Normal Respiratory Pattern Normal Blood Pressure 119/85 H Blood Pressure Mean 96 Pulse Ox 98 Oxygen Delivery Method Room Air Room Air Positive well nourished HEENT HEENT Narrative: Scalp abrasion to the right posterior parietal scalp. No active bleeding at this time. Dried blood noted in his hair. Eyes EOMs intact bilaterally Neck Neck Narrative: No C-spine tenderness. Chest Wall inspection of chest normal and palpation of chest normal Resp normal respiratory effort and clear to auscultation bilaterally Cardio regular rhythm Rate: regular rate GI non-tender Palpation: soft Back/Spine normal to inspection Extremity normal to inspection Neuro moves all extremities Neuro Narrative: Alert and oriented with baseline mild dementia. Skin Skin Narrative: Scalp abrasion as noted above. MDM MDM MDM Narrative Medical decision making narrative: Patient sent for CT scan of the head and C-spine to evaluate for bleed, fracture, edema. Radiography Diagnostic Testing: Clinical Impression(s) from Imaging Studies Brain CT 08/11/23 00:42 IMPRESSION: 1. Trace subarachnoid hemorrhage in a right parietal sulcus. This is likely posttraumatic. 2. Moderate generalized atrophy. Moderate low density bilaterally in the deep white matter. This likely represents chronic small vessel ischemic changes in the deep white matter. 3. Mild bilateral ethmoid mucosal disease. Electronically Signed: Paulino Ma MD at 1:24 EDT , ADDENDUM: 08/11/23 0140 IMPRESSION: 1. Trace subarachnoid hemorrhage in a right parietal sulcus. This is likely posttraumatic. 2. Moderate generalized atrophy. Moderate low density bilaterally in the deep white matter. This likely represents chronic small vessel ischemic changes in the deep white matter. 3. Mild bilateral ethmoid mucosal disease. N.B. : The above Results were Read Back by Paulino Ma MD to Tahira Jenkins MD, and understanding confirmed on 08/11/2023 01:33:43 (ET). Electronically Signed: Paulino Ma MD at 1:24 EDT , Cervical Spine CT 08/11/23 00:42 IMPRESSION: Mild to moderate cervical degenerative changes. No acute fractures or subluxations. Electronically Signed: Paulino Ma MD at 1:25 EDT , Treatment and Re-Evaluation Narrative: CT brain reveals evidence of trace subarachnoid hemorrhage and a right parietal sulcus. This is likely posttraumatic. Generalized atrophy is noted. CT of theC- spine reveals chronic changes with no fracture. Test results discussed with patient and at bedside. They would prefer transfer to [facility] and I have spoken with her trauma line and ER. Patient will be transferred via local squad. He remains hemodynamically stable at this time. IV will be established and lab work will be obtained. Portable chest x-ray also ordered. Discharge Plan Triage Chief Complaint: Fall ED Provider: Tahira Jenkins Dx/Rx/DC Orders Clinical Impression: Subarachnoid hemorrhage following injury, Fall Prescriptions: No Action terazosin 1 MG capsule 5 mg PO QHS pravastatin 20 MG tablet 40 mg PO QHS Minocycline tablet 50 mg PO BID memantine 5 mg tablet 5 mg PO BID Patient Comments: Take 1 tablet by mouth twice daily. meloxicam 15 mg tablet 15 mg PO DAILY Patient Comments: Take 1 tablet by mouth once daily. With food. ibuprofen 400 mg tablet 400 mg PO Q6H Patient Comments: take 1 tablet (400 mg) by oral route 4 times per day with food Primary Care Provider: Yanet Adams Referrals: Yanet Adams MD [Primary Care Provider] - Disposition Disposition: Acute Care Hospital Discharge Location: [facility] What to do if you have Problems For any increased pain, shortness of breath, bleeding, nausea or vomiting, chestpain, or any unexpected problems, contact your Primary Care Provider. Call [facility] ([phone]) or report to the closest Emergency Room. Call 911 if necessary. 08/11/23 0528 <Electronically signed by Tahira Jenkins MD> Cosigner Signature (if applicable): CC: Dr. Yanet Adams MD ~ Signed [facility] Work Phone: 1(391) 773-945410-24-2023 Discharge summary Author Brown Sullivan [facility] August 09, 2023 4:12pm Note Date/Time August 09, 2023 1 :48pm [facility] Physical [facility] [address] [place] [address] / REHABILITATION SERVICES DISCHARGE SUMMARY MR#: [id number] Acct: [id number] Name: PATRICIO PADRON Rep #: [id number] : 1955 68 From: Cert. LUPILLO Granado, OCS Referring : Status: REG R Insurance: [facility] SELF PAY INSURANCE Discharge Summary D/C summary: It has been my pleasure to treat PATRICIO PADRON referred by ANIKA HERNANDEZ, withthe diagnosis of SPINAL STENOSIS ,WEAKNESS LOWER EXTERMITIES for a total of 10 visit(s). Discharge Date: 08/09/23 Please see the following information for a summary of their discharge status. Subjective Subjective: Patient states doing well . ready for d/c Walking better Overall Improvement % Improvement: 60 Objective Objective/Function: mild forward posture calcaneal valgus GAIT: reciprocal pattern decrease heel strike right > left slow vianca with unsteady pattern NEURO: denies paresthesia/tingling, reflexes L3-4,L4-5,L5 -S1 1/3 LUMBAR ROM: flexion mon/mod loss ,extension mod loss ,side glides mod loss FLEXABLITY: min loss hamstrings HIP AROM: IR 25 degrees ,ER 40 MMT: quads/hams 4/5 ,hip flexion right 30.7 ,left 39.7 ,hip abd right 18.8 ,keas122.7 Goals Goal 1:: Patient to be I with HEP for lumbar spine Goal Progress: Goal Met Goal 2:: Patient to demonstrate 50% improvement with improved function and gait Goal Progress: Goal Met Goal 3:: Patient to increase peak force HIP BY 5-10# to improve gait and function Goal Progress: Goal Met Goal 4:: Patient to improve lumbar ROM for function of recovery for ADLS Goal Progress: Goal Met Goal 5:: Patient improve back oswestry score by 5 points or> to improve QOL and function Goal Progress: Goal Met Goal 6:: Patient to improve functional gait assessment score by 5 points to decrease risk of falls Plan Plan: D/C TO HEP D/C Information Discharge Comments: HEP d/c sentence: If there are questions or concerns regarding this patient's physical therapy, please feel free to call me at [phone]. Thank you for the referral of thispatient. Sincerely, Brown Sullivan PT, Cert MDT, OCS Balance/Gait/Functional tests Balance/Special Test Scores Functional Gait Assessment Score: 29 % Disability: 3.3400 CATSIB Score (Max score 120 seconds): 100 Oswestry Low Back Score: 6 Improvement % Improvement: 60 <Electronically signed by Brown Sullivan PT Cert. T, OCS> 08/09/23 1612 CC: ANIKA HERNANDEZ; Dr. Yanet Adams MD ~ JLA Signed [facility] Work Phone: [phone]) 582-163810-10-2023 Instructions* Patient Instructions* Neeraj Jacobs PA-C - 07/26/2023 1:37 PM EDT > 1 year Appt w/ B. MANJIT Jacobs MT, PA-C with PSA prior > Refilled Hytrin > Renal Function and PSA labs reviewed documented [facility] encounter[facility] History of Present illness Narrative* Beny Chatterjee LPN - 07/26/2023 1:03 PM EDT Verified name and date of . CC Post Void Residual HPI: Patricio Padron is a 68 year old male. [...] tolerated the procedure well. Plan: Appointment with Neeraj. * Neeraj Jacobs PA-C - 07/26/2023 12:57 PM EDT Images from the original note were not included. [facility] ESTABLISHED PATIENT CLINIC NOTE Some elements copied from his previous note, which have been updated where appropriate, and all reflect current medical decision making from date of this visit. SERVICE DATE: 07/26/2023 SERVICE TIME: 12:59 PM NAME: Patricio Padron CHIEF COMPLAINT: BPH HISTORY OF PRESENT ILLNESS: Patricio Padron is a 68 year old male [...] with PSA prior MANJIT Montgomery MT, PA-C documented in this encounterSelect [facility] [place]09-26-2023 Miscellaneous Notes* Telephone Encounter - Jeanine Gaona LPN - 07/12/2023 12:38 PM EDT Patient notified. Verbalized understanding. * Telephone Encounter - Yanet Adams MD - 07/12/2023 12:33 PM EDT Let him know the labs are stable. documented in this encounterSelect [facility] [place]09-15-2023 History of Present illness Narrative* Yanet Adams MD - 07/01/2023 1:35 PM EDT [...] OF flexible cystoscopy PAST SURGICAL HISTORY OF 195 tonsillectomy PAST SURGICAL HISTORY OF 2017 left [...] 104/62 Pulse 102 Ht 162.6 cm (5' 4) Wt 69.9 kg (154 lb) SpO2 98% [...] ICD9: 790.29, ICD10: R73.03 - HGB A1C Yanet Adams RTO in six months and prn. documented in this encounterSelect [facility] [place]08-09-2023 History of Present illness Narrative* Anika Hernandez PA-C - 05/25/2023 2:11 PM EDT Images from the original note were not included. Anika Hernandez PA-C [facility] [address] [place] [address] 05/25/2023 ASSESSMENT AND PLAN: Assessment : Encounter [...] do last year. He has to stop group home through now and come back at the [...] today with this patient visit. This includes [id number]-bfny time, review of chart records regarding conservative care history, spine- pertinent imaging, and communication/care coordination with referring provider, problem-specific history-taking and counseling/education regarding treatment options. cc: Ashley Ewing [id number] [facility] [id number] Results of consultation to be transmitted via electronic medical record for those providers who practice within [facility] or with access to [employer] via [employer], or via letter. ######################################################################## [...] 112/61, pulse 95, height 162.6 cm (5' 4), weight 67.8 kg (149 lb 6.4 oz), [...] R: 5/5 L: 5/5 Knee Extension R: 5/5 L: 5/5 Foot Dorsiflexion R: 5/5 L: 5/5 Foot Plantar Flexion R: 5/5 L: 5/5 Ext Hallicus Longus R: 5/5 L: 5/5 Toe Extensors R: 5/5 L: [...] STUDIES: See discussion above documented in this encounterSelect Medical [facility] [place]08-07-2023 Miscellaneous Notes* Telephone Encounter - Oliva Wong [...] new or worsening symptoms occur. Ashley Ewing APRN.MECHANICAL INTERN * Telephone Encounter - Tarah Mcgrath - [...] and advise. Tarah Mcgrath documented in this encounterSelect Medical [facility] [place]07-07-2023 History of Present illness Narrative* Oliva Kolb RDMS - 04/22/2023 1:00 PM EDT Radiology Service Progress Note PATIENT NAME: Patricio Padron DATE OF SERVICE: April 22, 2023 [...] IV DATA: Not applicable SIGNED BY: Oliva Kolb RDMS RVT April 22, 2023 3:46 PM documented in this [facility]07-06-2023 Miscellaneous Notes* Telephone Encounter - TEODORO Felder - 04/21/2023 2:35 PM EDT TC to patient who verbalized understanding of providers message and has no questions at this time. TEODORO Felder * Telephone Encounter - TEODORO Felder - 04/21/2023 2:34 PM EDT ----- Message from Ashley Ewing APRN.CNP sent at 04/21/2023 1:58 PM EDT ----- Please let the pt know that his CK (can indicate muscle breakdown) was normal. documented in this encounterSelect [facility] [place]07-05-2023 Miscellaneous Notes* Telephone Encounter - Simeon Alexander LPN - 04/20/2023 4:58 PM EDT Order faxed. Simeon Alexander LPN * Telephone Encounter - Fidelina Rosas APRN.CNP - 04/20/2023 4:52 PM EDT Please fax order for wheelchair to [facility]. Fidelina Rosas APRN.CNP documented in this [facility]07-05-2023 Instructions* Patient Instructions* Fidelina Rosas APRN.CNP - 04/20/2023 1:50 PM EDT Get the additional labs ordered by neurology. Schedule the kidney ultrasound. Start the meloxicam daily with food. Take daily X 2 weeks and see if that improved the back pain. You can use daily as needed after that. documented in this encounterSelect [facility] [place]07-05-2023 History of Present illness Narrative* Fidelina Rosas APRN.CNP - 04/20/2023 1:31 PM EDT This is a 68 year old adult who presents today with: Patient presents with: Recheck: Review CT results HISTORY OF PRESENT ILLNESS: Patricio Padron is a 68 year old adult. [...] improvement. Fidelina Rosas APRN.SAMARIA documented in this encounterSelect [facility] [place]06-28-2023 Miscellaneous Notes* Telephone Encounter - Oliva Wong LPN - 04/13/2023 11:36 AM EDT TC to pt who voices understanding. Please assist pt in scheduling with spine medicine and a follow up with Dr. Adams to review lesion on kidney. Oliva Wong LPN * Telephone Encounter - Oliva Wong LPN - 04/13/2023 11:24 AM EDT ----- Message from Ashley Ewing APRN.MECHANICAL INTERN sent at 04/13/2023 9:35 AM EDT ----- [...] AM EDT ----- Message from Ashley Ewing APRN.MECHANICAL INTERN sent at 04/13/2023 7:10 AM EDT ----- Please let the patient know that his EMG is normal. Will await results of his MRI L spine as well as lab work before determining further POC. documented in this encounterSelect Medical [facility] [place]06-27-2023 History of Present illness Narrative* Olivier Verduzco RT(R) - 04/12/2023 10:30 AM EDT Radiology Service Progress Note PATIENT NAME: Patricio Padron DATE OF SERVICE: April 12, 2023 [...] 12, 2023 2:37 PM documented in this encounterSelect Medical [facility] [place]06-21-2023 Miscellaneous Notes* Telephone Encounter - Rosi Kulkarni RN - 04/06/2023 11:52 AM EDT Chalo returns call. Message reviewed. Chalo verbalizes understanding. Transferred to schedule MRI and EMG. Rosi Kulkarni RN * Telephone Encounter - Oliva Wong LPN - 04/06/2023 11:21 AM EDT TC to Chalo with no answer left VM to return call. Please see message below and transfer to [facility] for scheduling. Oliva Wong LPN * Telephone Encounter - Ashley Ewing APRN.CNP - 04/06/2023 11:17 AM EDT EMG ordered. [...] - 04/06/2023 10:42 AM EDT Pt's spouse Chalo states neuro was going to order some testing to check muscle weakness in legs ifhis CT came back normal - EMG/NCV? Chalo asking if this will be ordered now? reports pt is declining. Pt was to FU in Jun but thinks that is too far off. Please advise. Ruth Velasco LPN documented in this encounterSelect Medical [facility] [place]06-02-2023 Miscellaneous Notes* Telephone Encounter - Almas Burris RN - 03/18/2023 12:40 PM EDT Phoned patient and given provider's message below with verbalized understanding. * Telephone Encounter - Fidelina Rosas APRN.MECHANICAL INTERN - 03/18/2023 12:[address] did [...] his circulation. Please advise. documented in this encounterSelect Medical [facility] [place]05-26-2023 History of Present illness Narrative* Beny Aiken RT(R) - 03/11/2023 3:20 PM EDT Radiology Service Progress Note PATIENT NAME: Patricio Padron DATE OF SERVICE: March 11, 2023 [...] 11, 2023 3:51 PM documented in this encounterSelect Medical [facility] [place]05-16-2023 History of Present illness Narrative* Chelsie Hawkins RT(R) - 03/01/2023 2:30 PM EDT Radiology Service Progress Note PATIENT NAME: Patricio Padron DATE OF SERVICE: March 01, 2023 [...] IV DATA: Not applicable SIGNED BY: RT Jacob(Sandra) March 01, 2023 2:21 PM documented in this encounterSelect Medical [facility] [place]05-16-2023 Instructions* Patient Instructions* Fidelina Rosas APRN.CNP - 03/01/2023 1:48 PM EDT Get labs. Schedule leg ultrasound. Do stool for hidden blood. Get chest xray. Add an ensure or carnation instant breakfast daily. documented in this encounterSelect Medical [facility] [place]05-16-2023 History of Present illness Narrative* Fidelina Rosas, TEA LEAF READER.MECHANICAL INTERN - 03/01/2023 1:05 PM EDT This is a 67 year old male who presents today with: Patient presents with: Musculoskeletal Problem: Trouble standing after standing for 10-15 minutes, just in legs, legs get weak HISTORY OF PRESENT ILLNESS: Patricio Padron is a 67 year old male. [...] as needed for worsening/no improvement. Fidelina Rosas APRN.MECHANICAL INTERN documented in this encounterSelect Medical [facility] [place]04-04-2023 Miscellaneous Notes* Telephone Encounter - Rosana Yu [...] Pain. Nica Marin RN documented in this encounterSelect Medical [facility] [place]03-08-2023 History of Past illness Narrative* Problem Noted Date Resolved Date Closed fracture of distal end of fibula 12/23/19 23 12/22/2022 documented as of this encounter (statuses as of 01/19/2023) [facility] History of Past illness Narrative* Problem Noted Date Resolved Date Closed fracture of distal end of fibula 12/23/19 23 12/22/2022 documented as of this encounter (statuses as of 03/02/2023) [address]08-2023 History of Past illness Narrative* Problem Noted Date Resolved Date Closed fracture of distal end of fibula 12/23/19 23 12/22/2022 documented as of this encounter (statuses as of 03/18/2023) [address]08-2023 History of Past illness Narrative* Problem Noted Date Resolved Date Closed fracture of distal end of fibula 12/23/19 23 12/22/2022 documented as of this encounter (statuses as of 04/06/2023) [address]08-2023 History of Past illness Narrative* Problem Noted Date Resolved Date Closed fracture of distal end of fibula 12/23/19 23 12/22/2022 documented as of this encounter (statuses as of 04/13/2023) [address] History of Past illness Narrative* Problem Noted Date Resolved Date Closed fracture of distal end of fibula 12/23/1912/22/2022 documented as of this encounter (statuses as of 04/13/2023) [address]08-2023 History of Past illness Narrative* Problem Noted Date Resolved Date Closed fracture of distal end of fibula 12/23/1912/22/2022 documented as of this encounter (statuses as of 04/21/2023) [address]08-2023 History of Past illness Narrative* Problem Noted Date Resolved Date Closed fracture of distal end of fibula 12/23/1912/22/2022 documented as of this encounter (statuses as of 04/21/2023) [address]08-2023 History of Past illness Narrative* Problem Noted Date Resolved Date Closed fracture of distal end of fibula 12/23/1912/22/2022 documented as of this encounter (statuses as of 04/22/2023) [address]08-2023 History of Past illness Narrative* Problem Noted Date Diagnosed Date Resolved Date Closed fracture of distal end of fibula 12/22/2022 12/22/2022 documented as of this encounter (statuses as of 05/23/2023) [address]08-2023 History of Past illness Narrative* Problem Noted Date Diagnosed Date Resolved Date Closed fracture of distal end of fibula 12/22/2022 12/22/2022 documented as of this encounter (statuses as of 05/26/2023) [address]08-2023 History of Past illness Narrative* Problem Noted Date Diagnosed Date Resolved Date Closed fracture of distal end of fibula 12/22/2022 12/22/2022 documented as of this encounter (statuses as of 07/01/2023) [address]08-2023 History of Past illness Narrative* Problem Noted Date Diagnosed Date Resolved Date Closed fracture of distal end of fibula 12/22/2022 12/22/2022 documented as of this encounter (statuses as of 07/13/2023) [address] History of Past illness Narrative* Problem Noted Date Diagnosed Date Resolved Date Closed fracture of distal end of fibula 12/22/2022 12/22/2022 documented as of this encounter (statuses as of 07/27/2023) [facility] History of Past illness Narrative* Problem Noted Date Diagnosed Date Resolved Date Closed fracture of distal end of fibula 12/22/2022 12/22/2022 documented as of this encounter (statuses as of 08/12/2023) [facility] History of Past illness Narrative* Problem Noted Date Diagnosed Date Resolved Date Closed fracture of distal end of fibula 12/22/2022 12/22/2022 documented as of this encounter (statuses as of 08/16/2023) [facility] History of Past illness Narrative* Problem Noted Date Diagnosed Date Resolved Date Closed fracture of distal end of fibula 12/22/2022 12/22/2022 documented as of this encounter (statuses as of 08/21/2023) [facility] History of Past illness Narrative* Problem Noted Date Diagnosed Date Resolved Date Closed fracture of distal end of fibula 12/22/2022 12/22/2022 documented as of this encounter (statuses as of 08/21/2023) [facility] History of Past illness Narrative* Problem Noted Date Diagnosed Date Resolved Date Closed fracture of distal end of fibula 12/22/2022 12/22/2022 documented as of this encounter (statuses as of 08/21/2023) [facility] History of Past illness Narrative* Problem Noted Date Diagnosed Date Resolved Date Closed fracture of distal end of fibula 12/22/2022 12/22/2022 documented as of this encounter (statuses as of 08/25/2023) [facility] of Past illness Narrative* Problem Noted Date Diagnosed Date Resolved Date Closed fracture of distal end of fibula 12/22/2022 12/22/2022 documented as of this encounter (statuses as of 08/27/2023) [facility] History of Past illness Narrative* Problem Noted Date Diagnosed Date Resolved Date Closed fracture of distal end of fibula 12/22/2022 12/22/2022 documented as of this encounter (statuses as of 09/19/2023) [facility] History of Past illness Narrative* Problem Noted Date Diagnosed Date Resolved Date Closed fracture of distal end of fibula 12/22/2022 12/22/2022 documented as of this encounter (statuses as of 09/20/2023) [facility] History of Past illness Narrative* Problem Noted Date Diagnosed Date Resolved Date Closed fracture of distal end of fibula 12/22/2022 12/22/2022 documented as of this encounter (statuses as of 09/22/2023) [facility] History of Past illness Narrative* Problem Noted Date Diagnosed Date Resolved Date Closed fracture of distal end of fibula 12/22/2022 12/22/2022 documented as of this encounter (statuses as of 09/23/2023) [facility] History of Past illness Narrative* Problem Noted Date Diagnosed Date Resolved Date Closed fracture of distal end of fibula 12/22/2022 12/22/2022 documented as of this encounter (statuses as of 11/21/2023) [facility] History of Past illness Narrative* Problem Noted Date Diagnosed Date Resolved Date Closed fracture of distal end of fibula 12/22/2022 12/22/2022 documented as of this encounter (statuses as of 11/22/2023) [facility] History of Past illness Narrative* Problem Noted Date Diagnosed Date Resolved Date Closed fracture of distal end of fibula 12/22/2022 12/22/2022 documented as of this encounter (statuses as of 12/12/2023) [facility] History of Past illness Narrative* Problem Noted Date Diagnosed Date Resolved Date Closed fracture of distal end of fibula 12/22/2022 12/22/2022 documented as of this encounter (statuses as of 12/14/2023) [facility] History of Past illness Narrative* Problem Noted Date Diagnosed Date Resolved Date Closed fracture of distal end of fibula 12/22/2022 12/22/2022 documented as of this encounter (statuses as of 12/14/2023) [facility] Instructions* Patient Instructions* Jayda Queener, PA-C - 11/26/2022 3:46 PM EST Continue with exercise Prevent falls by not leaning too far forward Follow up in 3-6 months documented in this encounterSelect [facility]-10-2023 History of Present illness Narrative* Jayda Ace PA-C - 11/26/2022 3:14 PM EST ESTABLISHED PATIENT VISIT Last visit: 06/17/22 with Ashley Ewing [facility] Assessment/Plan: R41.3 Memory loss (primary encounter diagnosis) Z87.820 History of traumatic brain injury R26.89 Balance problem Comment: Patient presenting today for both memory and balance concerns. Transferring care from outside neurology, however, records not available at this time. Pt reports that memory concerns began [id number] after being knocked unconscious by a horse. [...] COMPLAINT: Follow up HISTORY OF PRESENT ILLNESS: Patricio Padron is a 67 year old male with a PMH significant for Head injury 2008, MCI, DDD. Patient has been taking Namenda [...] saddle anesthesia. Patient has never seen a floor care specialist. Patient denies any voice change, hallucination, [...] dysarthria; comprehension, naming, repetition intact. Short and salvage determiner memory intact. CN: EOMI and without nystagmus, [...] which included preparing to see the patient, qarh-am-sign patient care, completing clinical documentation, obtaining and/or reviewing separately obtained history, performing a medically appropriate examination, and counseling and educating the patient/family/caregiver. This document has been created with the use of voice recognition technology. It may contain inaccuracies: (e.g. misspellings, inaccurate syntax or word sense) that have escaped review. documented in this encounterSelect [facility]-2023 History of Present illness Narrative* Macario Tan MD - 11/18/2022 1:10 PM EST Macario Tan MD Department of Orthopaedics Orthopaedics [address] [facility] [address] Dept: [phone] Dept Nov 18, 2022 CHIEF COMPLAINT: Fracture of the Right Middle Finger HPI Just within a few weeks ago, patient had a fall and caught himself and bent the finger back on the right hand, middle. [facility] He was splinted at that time. ASSESSMENT: S63.765O Other sprain of left middle finger, initial encounter (primary encounter diagnosis) PLAN: Little bit of a volar plate avulsion. Swelling is improved. We discussed just motion program and may be some alex taping if he felt necessary. He can follow- up as needed. FOLLOW UP INSTRUCTIONS: As above Mr. Patricio Padron was advised as to contrast therapies and/or to take analgesics/anti-inflammatories as needed and all contraindications were reviewed. OBJECTIVE: Mr. Patricio aPdron is a pleasant 67 year old in [...] third middle phalanx with soft tissue swelling. Septic Tank Setter: PSCB Transcribe Date/Time: Nov 02 2022 11:00A [...] anxiety) Macario Tan MD documented in this encounterSelect [facility]-17-2023 History of Present illness Narrative* Becca Titus APRN.MECHANICAL INTERN - 11/02/2022 10:29 AM EST Images from the original note were not included. Subjective HPI HPI Patricio Padron is a 67 year old male [...] have confirmed and edited as necessary, the [facility] Review of Systems Constitutional: Negative for chills [...] swelling. Interpreted by : MD Becca WARREN APRN.MECHANICAL INTERN documented in this encounterSelect Medical [facility]12-30-2022 Miscellaneous Notes* Telephone Encounter - Lara Heath [...] you. Lara Heath RN documented in this encounterSelect Medical Specialty [facility]12-12-2022 Miscellaneous Notes* Telephone Encounter - Park Coles MA - 09/27/2022 11:32 AM EST The following approved medication requests have been transmitted electronically. Requested Prescriptions Signed Prescriptions Disp Refills memantine (NAMENDA) 5 mg tablet 60 tablet 2 Sig: Take 1 tablet by mouth twice daily. Authorizing Provider: YANET PINTO JR, MA * Telephone Encounter - Estee Kendall RN - 09/24/2022 12:27 PM EST Last Office Visit: 06/17/2022 Future Office Visit: 11/18/2022 Requested Prescriptions Pending Prescriptions Disp Refills memantine (NAMENDA) 5 mg tablet 60 tablet 2 Sig: Take 1 tablet by mouth twice daily. documented in this encounterSelect [facility]10-04-2022 History of Present illness Narrative* Neeraj Jacobs PA-C - 07/20/2022 1:33 PM EDT Images from the original note were not included. [facility] ESTABLISHED PATIENT CLINIC NOTE Some elements copied from his previous note, which have been updated where appropriate, and all reflect current medical decision making from date of this visit. SERVICE DATE: 07/20/2022 SERVICE TIME: 1:34 PM NAME: Patricio Padron CHIEF COMPLAINT: Annual follow-up HISTORY OF PRESENT ILLNESS: Patricio Padron is a 67 year old Male [...] resp. rate 14, height 165.1 cm (5' 5), weight 68.5 kg (151 lb), SpO2 96 [...] - 2020 > Hytrin refilled today MANJIT Montgomery, CRAIG, SABINA * Beny Chatterjee LPN - 07/20/2022 12:58 PM EDT Verified name and date of . CC Post Void Residual HPI: Patricio Padron is a 67 year old male. The patient is here now for an appointment with Neeraj Jacobs, TIKAS, MT, PA-COV. Procedure: Explained procedure to patient and verbalizes understanding. Performed a PVR. Patient urinated and instructed to empty bladder as much as possible just prior to having PVR done using bladder ultrasound scanner. Results of scan: 266 mL The patient tolerated the procedure well. Plan: Appointment with Neeraj. documented in this encounterSelect [facility]-08-2022 History of Present illness Narrative* Yanet Adams MD - 06/24/2022 3:18 PM EDT [...] Did complete physical therapy. He has joined [employer]. Discussed considering continued therapy. Denies chest pain, [...] No fainting. Patient notices he does not strip picker his right foot as much while walking. 3 word recall - good with medical student. 3 word recall - poor with nurse. Patients notices worsening in communication the last couple of months. Patients mentions difficulty with following instruction Hx of brain bleed in 2018. Re-assessed a year later with CT at [facility]. No recent head trauma or injury. Upper [...] Abs Lymph 1.00 - 4.00 k/uL 2.59 [place]% % 8.2 Abs [place] <0.87 k/uL 0.70 Eosin% % 2.3 Abs [...] physical therapy directed more at his spine. Yanet Adams MD RTO in six months documented in this encounterSelect [facility]09-02-2022 Miscellaneous Notes* Telephone Encounter - Ashley Ewing [...] [place]. Cancel referralfor neurological testing at [facility] for now. Mirna Garcia LPN documented [facility] History of Present illness Narrative* Ashley Ewing APRN.CNP - 06/17/2022 2:30 PM EDT Images from the original note were not included. [facility] [place] New Patient Visit New Patient Consultation June [...] accident. On review of ED note from [facility] on 07/24/18: Pt was witnessed falling backwards and hitting hte backof his head. He was unresponsive for approximately two minutes and his son describes seeing his eyes rolling back into his head. 911 was called. Pt became alert and responsive prior to arrival at the. He now denies any neurological complaints. CT [...] jamilah he got lost when driving to [place]. Does ok around [place] or in familiar place. Does not cook. [...] Words, up to 2 trials: Face, Velvet, Jew, Miracle, Red (no points) 3/5 first try, 5/5 second try Attention forwards: 2 1 8 5 4 (0-1) (1/) Attention backwards: 7 4 2 (0-1) (10/17) Tap for the A: F B A C M N A A J K L B A F A K D E A A A J A M O F A A B (1 point if 0 or 1 error) (0/1) Serial subtraction by 7: [id number] (3 points for correct 4 or 5; 2 points for 2 or 3 correct; 1 point for 1 correct) [id number] (2/3) Language: repeat: I only know that Douglas is the one to help today (0-1) (1/1) Language: repeat: The cat always hid under the couch when dogs were in the room (0-1) (1/1) Fluency: max words beginning with the letter F (1 point if 11 or more words) aniya (0/1) Abstraction: practice banana-orange=fruit. Then train-bicycle (1) AND watch- ruler (1) total: (2) (2/2) Delayed recall: recall words: face, velvet, sikhism, miracle, red (0-5) (1/5) Orientation: date(1), month(1), year(1), day(1), place(1), city(1) max 6 points (6/6) Level of education: add 1 if did [...] DATE OF EXAM: May 17 2022 3:50PM MERON 0294 - MRI BRAIN WO IVCON / [...] loss and mild chronic small vessel ischemia. Septic Tank Setter: ANKIT Transcribe Date/Time: May 17 2022 4:55P Dictated [...] Abs Lymph 1.00 - 4.00 k/uL 2.59 [place]% % 8.2 Abs [place] <0.87 k/uL 0.70 E[place]% % 2.3 Abs [...] time. Pt reports that memory concerns began [id number] after being knocked unconscious by a horse. [...] TO NEUROLOGY NEUROPSYCHOLOGICAL TESTING CONSULT Ashley Ewing APRN.MECHANICAL INTERN I spent a total of 60 minutes on the date of the service which included preparing to see the patient, [id number] patient care, completing clinical documentation, obtaining and/or reviewing separately obtained history, performing a medically appropriate examination, counseling and educating the pat ient/family/caregiver, and ordering medications, tests, or procedures. documented in this encounter[facility] [place] Miscellaneous Notes* Telephone Encounter - Park Coles MA - 05/17/2022 5:21 PM EDT Patient notified of results. Park Coles MA * Telephone Encounter - Park Coles MA - 05/17/2022 5:20 PM EDT ----- Message from Yanet Adams MD sent at 05/17/2022 5:07 PM EDT ----- Let him know mri shows no acute changes. documented in this encounter[facility] [place] Miscellaneous Notes* Telephone Encounter - Isabella Dasilva APRN.MECHANICAL INTERN - 02/08/2022 1:43 PM EDT FINDINGS: No acute fracture or dislocation identified. Joint spaces preserved. IMPRESSION IMPRESSION: No radiographic evidence of acute osseous abnormality Septic Tank Setter: ANKIT Transcribe Date/Time: Feb 08 2022 1:14P Dictated by : CLINT CORREA MD Patient notified about wrist. Will continue care plan. follow up with PCP in 3-5 days if pain continues. documented in this encounter[facility] [place] History of Present illness Narrative* Isabella Dasilva [...] history is provided by the patient. No retail parts professional was used. Review of Systems Constitutional: Negative. [...] this. Isabella Dasilva APRN.SAMARIA documented in this encounter[facility] [place] History of Present illness Narrative* Manuela Tam RT(R) - 05/04/2021 2:10 PM EDT Radiology Service Progress Note PATIENT NAME: Patricio Padron DATE OF SERVICE: May 04, 2021 [...] 04, 2021 2:29 PM documented in this encounterSelect [facility]* Diagnosis Left wrist pain- Primary Pain in joint, forearm documented [facility] this [facility]* Diagnosis Memory loss- Primary History of traumatic brain injury Personal history of traumatic brain injury Balance problem Other symptoms involving nervous and musculoskeletal systems documented in this encounter [facility] noteNo assessment information availableWMarymount Hospital Work Phone: Evaluation note* Diagnosis DDD (degenerative disc disease), lumbar- Primary Degeneration of lumbar or lumbosacral intervertebral disc Mild cognitive impairment Mild cognitive impairment, so stated Benign non-nodular prostatic hyperplasia with lower urinary tract symptoms [facility] Diagnosis BPH with obstruction/lower urinary tract symptoms- Primary Hypertrophy of prostate with urinary obstruction and other lower urinary tract symptoms (LUTS) S/P TURP Other postprocedural status [facility] Diagnosis Finger pain, right- Primary Pain in limb Finger injury, right, initial encounter [facility]* Diagnosis History of traumatic brain injury- Primary Personal history of traumatic brain injury Memory loss Balance problem Other symptoms involving nervous and musculoskeletal systems [facility]* Diagnosis Other sprain of left middle finger, initial encounter- Primary [facility]* Diagnosis Weight loss- Primary Loss of weight Rosacea, acne Rosacea Pure hypercholesterolemia Weakness of both lower extremities Dementia without behavioral disturbance (HCC) Dementia, unspecified, without behavioral disturbance History of traumatic brain injury- Primary Personal history of traumatic brain injury Memory loss Balance problem Other symptoms involving nervous and musculoskeletal systems [facility] Diagnosis Balance problem- Primary Other symptoms involving nervous and musculoskeletal systems Weakness of right lower extremity DDD (degenerative disc disease), lumbar Degeneration of lumbar or lumbosacral intervertebral disc Spinal stenosis of lumbar region, unspecified whether neurogenic claudication present [facility] Diagnosis Spinal stenosis of lumbar region, unspecified whether neurogenic claudication present- Primary Weakness of both lower extremities [facility]* Diagnosis Renal lesion- Primary Unspecified disorder of kidney and ureter Flank pain Abdominal pain, unspecified site DDD (degenerative disc disease), lumbar Degeneration of lumbar or lumbosacral intervertebral disc Spinal stenosis of lumbar region, unspecified whether neurogenic claudication present Weakness of right lower extremity Weakness of both lower extremities Ataxia Lack of coordination [facility] Diagnosis Spinal stenosis of lumbar region, unspecified whether neurogenic claudication present Weakness of both lower extremities [facility]* Diagnosis Mild cognitive impairment- Primary Mild cognitive impairment, so stated Rosacea, acne Rosacea DDD (degenerative disc disease), lumbar Degeneration of lumbar or lumbosacral intervertebral disc Spinal stenosis of lumbar region, unspecified whether neurogenic claudication present Closed head injury, sequela Pure hypercholesterolemia Prediabetes Other abnormal glucose [facility] Diagnosis BPH with obstruction/lower urinary tract symptoms- Primary Hypertrophy of prostate with urinary obstruction and other lower urinary tract symptoms (LUTS) Renal lesion Unspecified disorder of kidney and ureter Urinary retention Retention of urine, unspecified [facility]* Diagnosis Spinal stenosis of cervical region- Primary Spinal stenosis in cervical region SAH (subarachnoid hemorrhage) (HCC) Subarachnoid hemorrhage [facility] Diagnosis Lung nodules Other nonspecific abnormal finding of lung field [facility]* Diagnosis Renal lesion Unspecified disorder of kidney and ureter [facility]* Diagnosis History of traumatic brain injury- Primary Personal history of traumatic brain injury Memory loss Balance problem Other symptoms involving nervous and musculoskeletal systems SAH (subarachnoid hemorrhage) (HCC) Subarachnoid hemorrhage Frequent falls Personal history of fall [facility]* Diagnosis Chronic subdural hematoma (HCC)- Primary Subdural hemorrhage Subdural hematoma (HCC) Subdural hemorrhage Subdural hematoma (HCC) Subdural hemorrhage [facility]* Diagnosis Subarachnoid hemorrhage (HCC) Subarachnoid hemorrhage Subdural hematoma (HCC) Subdural hemorrhage [facility] Diagnosis Subarachnoid hemorrhage (HCC) Subarachnoid hemorrhage [facility]* Diagnosis Frequent falls- Primary Personal history of fall Subdural hematoma (HCC) Subdural hemorrhage Dementia without behavioral disturbance (HCC) Dementia, unspecified, without behavioral disturbance Balance problem Other symptoms involving nervous and musculoskeletal systems Cervical stenosis of spinal canal Spinal stenosis in cervical region Memory loss [facility]* Diagnosis History of subdural hematoma- [...] malignant neoplasms, colon [facility]* Diagnosis Subdural hematoma (HCC)- Primary Subdural hemorrhage Dementia without behavioral disturbance (HCC) Dementia, unspecified, without behavioral disturbance Frequent falls Personal history of fall Balance problem Other symptoms involving nervous and musculoskeletal systems Cervical stenosis of spinal canal Spinal stenosis in cervical region documented [facility] this encounter [facility]* Diagnosis Pure hypercholesterolemia documented in this [facility]* Diagnosis Dementia without behavioral disturbance (HCC)- Primary Dementia, unspecified, without behavioral disturbance [facility]* Diagnosis Personal history of traumatic [...] and behavioral disorders documented [facility] this [facility]* Diagnosis Spinal stenosis of lumbar region, unspecified whether neurogenic claudication present [facility]* Diagnosis Weight loss Loss of weight documented in this encounter [facility]* Diagnosis Finger pain, right Pain in limb Finger injury, right, initial encounter documented [facility] Diagnosis History of traumatic brain injury Personal history of traumatic brain injury Balance problem Other symptoms involving nervous and musculoskeletal systems [facility]* Diagnosis Left wrist pain Pain in joint, forearm [facility]* Diagnosis BPH with obstruction/lower urinary tract symptoms- Primary Hypertrophy of prostate with urinary obstruction and other lower urinary tract symptoms (LUTS) [facility]* Diagnosis Subdural hematoma (HCC)- Primary Subdural hemorrhage Dementia without behavioral disturbance (HCC) Dementia, unspecified, without behavioral disturbance Balance problem Other symptoms involving nervous and musculoskeletal systems Frequent falls Personal history of fall Cervical stenosis of spinal canal Spinal stenosis in cervical region History of traumatic brain injury Personal history of traumatic brain injury Memory loss [facility]* Diagnosis Neck pain- Primary Cervicalgia documented [facility]* Diagnosis Cervical spondylosis with myelopathy- Primary [facility]* Diagnosis Neck pain Cervicalgia documented in this [facility]* Diagnosis Ataxia, unspecified- Primary Personal history of traumatic brain injury Mild cognitive impairment Mild cognitive impairment, so stated documented [facility] this [facility]* Diagnosis Personal history of traumatic brain injury- Primary Dementia without behavioral disturbance (HCC) Dementia, unspecified, without behavioral disturbance Cervical myelopathy (HCC) Cervical spondylosis with myelopathy Pure hypercholesterolemia Prediabetes Other abnormal glucose Mild cognitive impairment Mild cognitive impairment, so stated History of subdural hematoma History of subarachnoid hemorrhage Personal history of other diseases of circulatory system Screening for colon cancer Special screening for malignant neoplasms, colon documented [facility] this [facility]* Diagnosis Dementia without behavioral disturbance (HCC)- Primary Dementia, unspecified, without behavioral disturbance Memory loss Frequent falls Personal history of fall Balance problem Other symptoms involving nervous and musculoskeletal systems Cervical stenosis of spinal canal Spinal stenosis in cervical region documented [facility] this [facility]* Diagnosis Bacterial pneumonia- Primary Bacterial pneumonia, unspecified documented [facility]* Diagnosis Dementia without behavioral disturbance (HCC) Dementia, unspecified, without behavioral disturbance Memory loss [facility]* Diagnosis Dysphagia, unspecified type- Primary [facility]* Diagnosis Gastroesophageal reflux disease without esophagitis- Primary Esophageal reflux Vitamin D deficiency Unspecified vitamin D deficiency documented [facility] this [facility]* Diagnosis Subdural hematoma (HCC) Subdural hemorrhage Subdural hematoma (HCC)- Primary Subdural hemorrhage [facility] Diagnosis Unsteady gait- Primary Abnormality of gait SDH (subdural hematoma) (HCC) Subdural hemorrhage Mass of left upper extremity Ataxia, unspecified Leukocytosis, unspecified type Anorexia 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) Tobacco use Tobacco use disorder SOB (shortness of breath) Shortness of breath Heat intolerance Unspecified effects of heat and light [facility] this [facility]* Diagnosis Hypoxia- Primary Hypoxemia SOB (shortness of breath) Shortness of breath [facility] Diagnosis Mass of left upper extremity [facility]* Diagnosis Pure hypercholesterolemia documented in this encounter [facility] Plan of care note* Visit Details Visit Type -UPHOLSTERY TECHNICIAN SOC Discipline -Speech Language Pathology Problems Problem Description Start Date Status Goals Interve ntions Medication Education Disciplines: Skilled Services 03/23/2025 Active 1 goal linked to scheduled/documen talat intervention 1 goal intervention scheduled/document ed in this visit Sepsis Disciplines: Skilled Services 03/23/2025 Active 1 goal linked to scheduled/documen talat intervention 1 goal intervention scheduled/document ed in this visit UPHOLSTERY TECHNICIAN Referral Disciplines: Skilled Services 03/23/2025 Resolved on 03/23/2025 1 goal linked to scheduled/documen talat intervention 1 goal intervention scheduled/document ed in this visit Physician Specific Parameters Disciplines: Skilled Services 03/23/2025 Active 1 goal linked to scheduled/documen talat intervention 1 goal intervention scheduled/document ed in this visit Risk for Falls Disciplines: Skilled Services 03/23/2025 Active 1 goal linked to scheduled/documen talat intervention 1 goal intervention scheduled/document ed in this visit Pain Disciplines: Skilled Services 03/23/2025 Active 1 goal linked to scheduled/documen talat intervention 1 goal intervention scheduled/document ed in this visit Nutrition/Hydrat ion Disciplines: Skilled Services 03/23/2025 Active 1 goal linked to scheduled/documen talat intervention 1 goal intervention scheduled/document ed in this visit Discharge Disciplines: Skilled Services 03/23/2025 Active 1 goal linked to scheduled/documen talat intervention 1 goal intervention scheduled/document ed in this visit UPHOLSTERY TECHNICIAN Learning Assessment Disciplines: UPHOLSTERY TECHNICIAN 03/23/2025 Active 1 goal linked to scheduled/documen talat intervention 1 goal intervention scheduled/document ed in this visit UPHOLSTERY TECHNICIAN Dysphagia Pharyngeal Swallow Disciplines: UPHOLSTERY TECHNICIAN 03/23/2025 Active 1 goal linked to scheduled/documen talat intervention 1 goal intervention scheduled/document ed in this visit UPHOLSTERY TECHNICIAN Dysphagia Impaired Swallow Function Disciplines: UPHOLSTERY TECHNICIAN 03/23/2025 Active 1 goal linked to scheduled/documen talat intervention 1 goal intervention scheduled/document ed in this visit UPHOLSTERY TECHNICIAN Dementia Impaired Memory/Cognition Disciplines: UPHOLSTERY TECHNICIAN 03/23/2025 Active 1 goal linked to scheduled/documen talat intervention 1 goal intervention scheduled/document ed in this visit Goals Goal Associated Problem Outcome Goal Met? Visit Notes Patient/caregiver will demonstrate ability to obtain, store, identify and administer ordered medications, keep accurate medication list in home, and adhere to medication schedule Description: Patient/caregiver will demonstrate ability to obtain, store, identify and administer ordered medications, keep accurate medication list in home, and adhere to medication schedule by 05/16/25. Medication Education No Patient/caregiver will be able to identify and report symptoms of sepsis Description: Patient/caregiver will be able to identify signs/symptoms of sepsis infection and will verbalize actions to take if suspected by 05/21/25. Sepsis No Patient will be referred to additional discipline as needed UPHOLSTERY TECHNICIAN Referral Completed Yes Patient to maintain parameters within physician-specified ranges throughout certification period Physician Specific Parameters No Manage Risk for falls Description: Patient/caregiver will verbalize knowledge of individualized fall prevention strategies by 05/21/25. Risk for Falls No Manage Pain Description: Patient/caregiver will verbalize knowledge and understanding of appropriate techniques to control pain, including pain medication and non-pharmacological techniques. Patient will verbalize or demonstrate an acceptable level of pain as evidenced by a pain score of 3/10 and improvement in ability to perform activities of daily living to be achieved by 05/21/25. Pain No Manage Nutrition/Hydration Description: Patient/caregiver will verbalize/demonstrate knowledge of prescribed diet and/or healthy nutrition to be achieved by 05/16/25. Nutrition/Hydration No Manage discharge planning Description: Patient/caregiver will verbalize understanding of ongoing discharge plan provided related to disease management, arrangements for outpatient and/or community services, obtaining medications, supplies, and DME, as needed throughout certification period. Discharge No Patient/Caregiver Demonstrates understanding of education Description: patient and caregiver will understand educational instruction, to be achieved by 05/16/25. UPHOLSTERY TECHNICIAN Learning Assessment No Improve Pharyngeal Swallow Description: Patient/caregiver will complete pharyngeal strengthening exercises to improve safety with swallowing and/or use expiratory muscle strength corporate trainer device as instructed (if available) improve cough strength and functional airway protection for swallowing with 90% accuracy. To be achieved by 05/16/25. UPHOLSTERY TECHNICIAN Dysphagia Pharyngeal Swallow No Improve Swallow Function UPHOLSTERY TECHNICIAN Dysphagia Impaired Swallow Function No Dementia Impaired Cognition 1 UPHOLSTERY TECHNICIAN Dementia Impaired Memory/Cognition No Interventions Intervention Associated Problem/Goal Status Variance Visit Notes Medication Education Description: Evaluate/instruct patient/caregiver on obtaining, storing, identifying and administering ordered medications as well as keeping accurate medication list in the home and adhereing to medication schedule Problem:Medication Education Goal:Patient/caregive r will demonstrate ability to obtain, store, identify and administer ordered medications, keep accurate medication list in home, and adhere to medication schedule Completed Patient and Caregiver instructed on importance of keeping accurate medication list in home, need to take up-to-date medication list to all medical provider appointments, adhering to medication schedule, proper storage of medications and med diary and reminders. Risk of Sepsis Description: Patient is at risk for sepsis. Monitor closely for s/s of sepsis. Problem:Sepsis Goal:Patient/caregive r will be able to identify and report symptoms of sepsis Completed UPHOLSTERY TECHNICIAN evaluation and treatment Description: ST Referral eval and treat for Impaired swallowing, cognition and memory, Caregiver instruction and establish HEP. Problem:UPHOLSTERY TECHNICIAN Referral Goal:Patient will be referred to additional discipline as needed Completed SPO2 Description: Notify Jeanine Fermin APRN.MECHANICAL INTERN if pulse ox is <92% at rest. Problem:Physician Specific Parameters Goal:Patient to maintain parameters within physician-specified ranges throughout certification period Completed Instruct on individual fall risk factors and strategies to prevent falls and injuries caused by falls. Problem:Risk for Falls Goal:Manage Risk for falls Completed UPHOLSTERY TECHNICIAN: Patient and Caregiver instructed on Managing Cognitive Impairment/Depression: Recommended for caregiver to provide Assistance with ambulation, Assistance with transfers, Assistance with ADLS and Visual and verbal cues for safety Managing Impaired Functional Mobility: Use assistive device(s): rollator walker and Caregiver to provide assist with: Ambulation, Steps, Transfers and ADL/IADLs . Instruct on pain and instruct on strategies to control pain Problem:Pain Goal:Manage Pain Completed patient and caregiver instructed on techniques to control pain including Pharmacological measures and Non-Pharmacological measures; rest, positioning/elevation, mobility/therapeutic exercise, distraction, breathing/relaxation and use of DME/assistive devices. Define patient s appetite/hydration status and implement strategies to improve compliance with prescribed diet and/or healthy nutrition. Problem:Nutrition/Hyd ration Goal:Manage Nutrition/Hydration Completed instructed patient and caregiver on implementing strategies to comply with prescribed diet, healthy nutrition and adequate hydration Instruct on ongoing discharge plan Problem:Discharge Goal:Manage discharge planning Completed Ongoing Discharge plan: Discharge plan discussed with patient and caregiver including frequency and duration for home ST and plan for transition to: caregiver assistance. Assessment of patient/caregiver knowledge deficit and educational instruction Problem:UPHOLSTERY TECHNICIAN Learning Assessment Goal:Patient/Caregive r Demonstrates understanding of education Completed Education methods include: verbal cues, written instructions, visual cues and teach back. Further education required to improve knowledge and compliance with dysphagia, diet consistency/texture management, aspiration precautions, fall risk, home safety awareness, functional cognitive strategies and home exercise program. Pharyngeal/swallow exercises thermal stim Problem:UPHOLSTERY TECHNICIAN Dysphagia Pharyngeal Swallow Goal:Improve Pharyngeal Swallow Completed UPHOLSTERY TECHNICIAN instructed patient/caregiver to complete the following exercises to improve pharyngeal strength and motility: Zuly, effortful swallow, hyolaryngeal excursion via voice variations and tongue based retraction and patient completed X5 for each with moderate UPHOLSTERY TECHNICIAN cuing/modeling. HEP packet left in the home. Compensatory strategies disease process education Description: Patient/caregiver will demonstrate understanding of disease process related to dysphagia: signs/symptoms of aspiration, results of MBS or FEES, rationale for diet modifications and safe swallow strategy use with 90% accuracy. To be achieved by 04/15/25. Problem:UPHOLSTERY TECHNICIAN Dysphagia Impaired Swallow Function Goal:Improve Swallow Function Completed Patient/caregiver instructed on signs and symptoms of dysphagia: coughing or choking while eating or drinking, wet vocal quality post swallow, weight loss, risk for pneumonia and inability to chew specific foods; results of MBS/FEES; rationale for diet modifications; good oral hygiene; swallow strategies to reduce aspiration risks: Patient presents with mild oropharyngeal dysphagia per MBSS on 02/28/25 requiring Regular Easy to Chew Solids (IDDSI Level 7EC) / Thin liquids (IDDSI Level 1), Pills one at a time with Applesauce with Swallowing Precautions: distant supervision, Sitting Upright 90 Degrees, Small Sips/Bites when Eating, and Alternate Liquids Solids. Cognitive Exercise Problem:UPHOLSTERY TECHNICIAN Dementia Impaired Memory/Cognition Goal:Dementia Impaired Cognition 1 Completed UPHOLSTERY TECHNICIAN instructed patient/caregiver on orientation to person, place, time, situation and home environment and use of visual, verbal, written and auditory cues to help improve patient ability to increase interaction within the home environment/decrease challenging behaviors. UPHOLSTERY TECHNICIAN Instructed patient/caregiver on safety awareness related to memory loss and need for supervision for maximum safety in the home environment. [facility] Visit Details Visit Type -UPHOLSTERY TECHNICIAN ROUTINE Discipline -Speech Language Pathology Problems Problem Description Start Date Status Goals Interve ntions Medication Education Disciplines: Skilled Services 03/23/2025 Active 1 goal linked to scheduled/documente d intervention 1 goal intervention scheduled/document ed in this visit Sepsis Disciplines: Skilled Services 03/23/2025 Active 1 goal linked to scheduled/documente d intervention 1 goal intervention scheduled/document ed in this visit Physician Specific Parameters Disciplines: Skilled Services 03/23/2025 Active 1 goal linked to scheduled/documente d intervention 1 goal intervention scheduled/document ed in this visit Risk for Falls Disciplines: Skilled Services 03/23/2025 Active 1 goal linked to scheduled/documente d intervention 1 goal intervention scheduled/document ed in this visit Pain Disciplines: Skilled Services 03/23/2025 Active 1 goal linked to scheduled/documente d intervention 1 goal intervention scheduled/document ed in this visit Nutrition/Hydrat ion Disciplines: Skilled Services 03/23/2025 Active 1 goal linked to scheduled/documente d intervention 1 goal intervention scheduled/document ed in this visit Discharge Disciplines: Skilled Services 03/23/2025 Active 1 goal linked to scheduled/documente d intervention 1 goal intervention scheduled/document ed in this visit UPHOLSTERY TECHNICIAN Learning Assessment Disciplines: UPHOLSTERY TECHNICIAN 03/23/2025 Active 1 goal linked to scheduled/documente d intervention 1 goal intervention scheduled/document ed in this visit UPHOLSTERY TECHNICIAN Dysphagia Pharyngeal Swallow Disciplines: UPHOLSTERY TECHNICIAN 03/23/2025 Active 1 goal linked to scheduled/documente d intervention 1 goal intervention scheduled/document ed in this visit UPHOLSTERY TECHNICIAN Dysphagia Impaired Swallow Function Disciplines: UPHOLSTERY TECHNICIAN 03/23/2025 Active 2 goals linked to scheduled/documente d interventions 2 goal interventions scheduled/document ed in this visit UPHOLSTERY TECHNICIAN Dementia Impaired Memory/Cognition Disciplines: UPHOLSTERY TECHNICIAN 03/23/2025 Active 4 goals linked to scheduled/documente d interventions 4 goal interventions scheduled/document ed in this visit Goals Goal Associated Problem Outcome Goal Met? Visit Notes Patient/caregiver will demonstrate ability to obtain, store, identify and administer ordered medications, keep accurate medication list in home, and adhere to medication schedule Description: Patient/caregiver will demonstrate ability to obtain, store, identify and administer ordered medications, keep accurate medication list in home, and adhere to medication schedule by 05/16/25. Medication Education No Patient/caregiver will be able to identify and report symptoms of sepsis Description: Patient/caregiver will be able to identify signs/symptoms of sepsis infection and will verbalize actions to take if suspected by 05/21/25. Sepsis No Patient to maintain parameters within physician-specified ranges throughout certification period Physician Specific Parameters No Manage Risk for falls Description: Patient/caregiver will verbalize knowledge of individualized fall prevention strategies by 05/21/25. Risk for Falls No Manage Pain Description: Patient/caregiver will verbalize knowledge and understanding of appropriate techniques to control pain, including pain medication and non-pharmacological techniques. Patient will verbalize or demonstrate an acceptable level of pain as evidenced by a pain score of 3/10 and improvement in ability to perform activities of daily living to be achieved by 05/21/25. Pain No Manage Nutrition/Hydration Description: Patient/caregiver will verbalize/demonstrate knowledge of prescribed diet and/or healthy nutrition to be achieved by 05/16/25. Nutrition/Hydration No Manage discharge planning Description: Patient/caregiver will verbalize understanding of ongoing discharge plan provided related to disease management, arrangements for outpatient and/or community services, obtaining medications, supplies, and DME, as needed throughout certification period. Discharge No Patient/Caregiver Demonstrates understanding of education Description: patient and caregiver will understand educational instruction, to be achieved by 05/16/25. UPHOLSTERY TECHNICIAN Learning Assessment No Improve Pharyngeal Swallow Description: Patient/caregiver will complete pharyngeal strengthening exercises to improve safety with swallowing and/or use expiratory muscle strength corporate trainer device as instructed (if available) improve cough strength and functional airway protection for swallowing with 90% accuracy. To be achieved by 05/16/25. UPHOLSTERY TECHNICIAN Dysphagia Pharyngeal Swallow No Improve Swallowing Tolerance Description: Patient will demonstrate ability to manage the following IDDSI food texture: easy to chew(7EC) and IDDSI liquid consistency: thin(0) or ice chips with no overt signs or symptoms of aspiration/dysphagia with/in 90% trials, with compensatory swallowing strategies/cues. To be achieved by 05/16/25. UPHOLSTERY TECHNICIAN Dysphagia Impaired Swallow Function No Improve Swallow Function UPHOLSTERY TECHNICIAN Dysphagia Impaired Swallow Function No Dementia Cognitive Home Exercise Program Completion And Instruction 4 UPHOLSTERY TECHNICIAN Dementia Impaired Memory/Cognition No Dementia Memory Strategies And Cognitive Exercises 2 UPHOLSTERY TECHNICIAN Dementia Impaired Memory/Cognition No Dementia Impaired Cognition 1 UPHOLSTERY TECHNICIAN Dementia Impaired Memory/Cognition No Improve Awareness Of Disease Process And Strategies To Deal With Dementia Related Changes Description: Patient/Caregiver will demonstrate understanding of compensatory memory strategies, orientation techniques, disease process related to possible progressive decline of cognition and memory skills and resources available with 90% accuracy. To be achieved by 05/16/25. UPHOLSTERY TECHNICIAN Dementia Impaired Memory/Cognition No Interventions Intervention Associated Problem/Goal Status Variance Visit Notes Medication Education Description: Evaluate/instruct patient/caregiver on obtaining, storing, identifying and administering ordered medications as well as keeping accurate medication list in the home and adhereing to medication schedule Problem:Medication Education Goal:Patient/caregive r will demonstrate ability to obtain, store, identify and administer ordered medications, keep accurate medication list in home, and adhere to medication schedule Completed Patient and Caregiver instructed on importance of keeping accurate medication list in home, need to take up-to-date medication list to all medical provider appointments and adhering to medication schedule. Risk of Sepsis Description: Patient is at risk for sepsis. Monitor closely for s/s of sepsis. Problem:Sepsis Goal:Patient/caregive r will be able to identify and report symptoms of sepsis Completed SPO2 Description: Jeanine Parish APRN.MECHANICAL INTERN if pulse ox is <92% at rest. Problem:Physician Specific Parameters Goal:Patient to maintain parameters within physician-specified ranges throughout certification period Completed Instruct on individual fall risk factors and strategies to prevent falls and injuries caused by falls. Problem:Risk for Falls Goal:Manage Risk for falls Completed UPHOLSTERY TECHNICIAN: Patient and Caregiver instructed on Managing Impaired Functional Mobility: Use assistive device(s): rollator walker and Caregiver to provide assist with: Ambulation, steps, transfers Instruct on pain and instruct on strategies to control pain Problem:Pain Goal:Manage Pain Completed patient and caregiver instructed on techniques to control pain including Pharmacological measures and Non-Pharmacological measures; rest. Define patient s appetite/hydration status and implement strategies to improve compliance with prescribed diet and/or healthy nutrition. Problem:Nutrition/Hyd ration Goal:Manage Nutrition/Hydration Completed reinforced patient and caregiver on implementing strategies to comply with healthy nutrition and adequate hydration Instruct on ongoing discharge plan Problem:Discharge Goal:Manage discharge planning Completed Ongoing Discharge plan: Discharge plan discussed with patient and caregiver including frequency and duration for home ST and plan for transition to: caregiver assistance. Assessment of patient/caregiver knowledge deficit and educational instruction Problem:UPHOLSTERY TECHNICIAN Learning Assessment Goal:Patient/Caregive r Demonstrates understanding of education Completed Education methods include: verbal cues, written instructions, visual cues and teach back. Further education required to improve knowledge and compliance with dysphagia, diet consistency/texture management, aspiration precautions, functional cognitive and home exercise program. Pharyngeal/swallow exercises thermal stim Problem:UPHOLSTERY TECHNICIAN Dysphagia Pharyngeal Swallow Goal:Improve Pharyngeal Swallow Completed UPHOLSTERY TECHNICIAN instructed and cued patient/caregiver to complete the following exercises to improve pharyngeal strength and motility: Zuly and effortful swallow and voice exercises and patient completed with/in 75% accuracy. Dysphagia therapy modification of food/liquids disease process education Problem:UPHOLSTERY TECHNICIAN Dysphagia Impaired Swallow Function Goal:Improve Swallowing Tolerance Completed Patient/caregiver instructed on IDDSI food texture easy to chew(7EC) and IDDSI liquid consistency thin(0) and provided education on preparation of appropriate diet texture. UPHOLSTERY TECHNICIAN presented PO trials with thin texture/consistency and patient tolerated with/in 4/6 trials, with compensatory swallowing strategies/cues. Patient/Caregiver verbalize understanding of dysphagia home program at 75% accuracy. Compensatory strategies disease process education Description: Patient/caregiver will demonstrate understanding of disease process related to dysphagia: signs/symptoms of aspiration, results of MBS or FEES, rationale for diet modifications and safe swallow strategy use with 90% accuracy. To be achieved by 04/15/25. Problem:UPHOLSTERY TECHNICIAN Dysphagia Impaired Swallow Function Goal:Improve Swallow Function Completed Patient/caregiver instructed and cued on signs and symptoms of dysphagia: coughing or choking while eating or drinking, wet vocal quality post swallow, recent pneumonia and inability to chew specific foods; results of MBS/FEES; rationale for diet modifications; good oral hygiene; swallow strategies to reduce aspiration risks small bites, small sips, slow rate of intake, alternate liquids with solids and double swallow with/in 7/10 trials. Cognitive Home Exercise Program Completion and Instruction Problem:UPHOLSTERY TECHNICIAN Dementia Impaired Memory/Cognition Goal:Dementia Cognitive Home Exercise Program Completion And Instruction 4 Completed Instructed patient/caregiver on cognitive-linguistic home exercise program to improve memory for daily living tasks to improve basic social, emotional and safety needs, orientation and problem solving with moderate cueing with/in 70% opportunities. Memory Strategies and Cognitive Exercises Problem:UPHOLSTERY TECHNICIAN Dementia Impaired Memory/Cognition Goal:Dementia Memory Strategies And Cognitive Exercises 2 Completed Instructed patient/caregiver to use of compensatory memory strategies association, repetition and writing cues to improve patient ability to recall information within the home environment/decrease challenging behaviors with moderate cueing with /in 70% opportunities. Instructed patient/caregiver to complete cognitive stimulation exercises/activites daily with moderate cueing with /in 75% accuracy/trials/opport unities. UPHOLSTERY TECHNICIAN instructed caregiver to complete similar exercise to set up home exercise program. Cognitive Exercise Problem:UPHOLSTERY TECHNICIAN Dementia Impaired Memory/Cognition Goal:Dementia Impaired Cognition 1 Completed UPHOLSTERY TECHNICIAN instructed patient/caregiver on orientation to person, place, time and situation and use of visual and verbal cues to help improve patient ability to increase interaction within the home environment/decrease challenging behaviors with moderate cueing with/in 4/7 trials. UPHOLSTERY TECHNICIAN Instructed patient/caregiver on safety awareness related to memory loss and need for completing ADL tasks and completing IADL tasks for maximum safety in the home environment. Memory Strategies and Cognitive Exercises Problem:UPHOLSTERY TECHNICIAN Dementia Impaired Memory/Cognition Goal:Improve Awareness Of Disease Process And Strategies To Deal With Dementia Related Changes Completed Instructed patient/caregiver on use of: compensatory memory strategies and orientation techniques, and is able to demonstrate with 80% accuracy. documented in this encounter [facility] home Plan of care note* Visit Details Visit Type -PT EVAL Discipline -Physical Therapy Problems Problem Description Start Date Status Goals Interve ntions Medication Education Disciplines: Skilled Services 03/23/2025 Active 1 goal linked to scheduled/document ed intervention 1 goal intervention scheduled/document ed in this visit Sepsis Disciplines: Skilled Services 03/23/2025 Active 1 goal linked to scheduled/document ed intervention 1 goal intervention scheduled/document ed in this visit PT Referral Disciplines: Skilled Services 03/23/2025 Active 1 goal linked to scheduled/document ed intervention 1 goal intervention scheduled/document ed in this visit Physician Specific Parameters Disciplines: Skilled Services 03/23/2025 Active 1 goal linked to scheduled/document ed intervention 1 goal intervention scheduled/document ed in this visit Risk for Falls Disciplines: Skilled Services 03/23/2025 Active 1 goal linked to scheduled/document ed intervention 1 goal intervention scheduled/document ed in this visit Discharge Disciplines: Skilled Services 03/23/2025 Active 1 goal linked to scheduled/document ed intervention 1 goal intervention scheduled/document ed in this visit PT Impaired muscle performance and/or ROM Disciplines: PT 03/29/2025 Active 1 goal linked to scheduled/document ed intervention 1 goal intervention scheduled/document ed in this visit PT Impaired mobility Disciplines: PT 03/29/2025 Active 1 goal linked to scheduled/document ed intervention 1 goal intervention scheduled/document ed in this visit PT Impaired gait Disciplines: PT 03/29/2025 Active 1 goal linked to scheduled/document ed intervention 1 goal intervention scheduled/document ed in this visit PT Impaired balance Disciplines: PT 03/29/2025 Active 1 goal linked to scheduled/document ed intervention 1 goal intervention scheduled/document ed in this visit PT Neurologic Condition Disciplines: PT 03/29/2025 Active 1 goal linked to scheduled/document ed intervention 1 goal intervention scheduled/document ed in this visit PT Learning Assessment Disciplines: PT 03/29/2025 Active 1 goal linked to scheduled/document ed intervention 1 goal intervention scheduled/document ed in this visit Goals Goal Associated Problem Outcome Goal Met? Visit Notes Patient/caregiver will demonstrate ability to obtain, store, identify and administer ordered medications, keep accurate medication list in home, and adhere to medication schedule Description: Patient/caregiver will demonstrate ability to obtain, store, identify and administer ordered medications, keep accurate medication list in home, and adhere to medication schedule by 05/16/25. Medication Education No Patient/caregiver will be able to identify and report symptoms of sepsis Description: Patient/caregiver will be able to identify signs/symptoms of sepsis infection and will verbalize actions to take if suspected by 05/21/25. Sepsis No Patient will be referred to additional discipline as needed PT Referral No Patient to maintain parameters within physician-specified ranges throughout certification period Physician Specific Parameters No Manage Risk for falls Description: Patient/caregiver will verbalize knowledge of individualized fall prevention strategies by 05/21/25. Risk for Falls No Manage discharge planning Description: Patient/caregiver will verbalize understanding of ongoing discharge plan provided related to disease management, arrangements for outpatient and/or community services, obtaining medications, supplies, and DME, as needed throughout certification period. Discharge No Improved Muscle Performance and/or ROM Description: LTG: Patient will demonstrate improved muscle performance to meet functional goals as evidenced by ability to tolerate 8 mins of standing activity, to be achieved by 04/20/25. LTG: Patient and/or caregiver will verbalize/demonstrate independence with home exercise program, to improve functional mobility, to be achieved by 04/20/25. PT Impaired muscle performance and/or ROM No Improved Transfers Description: LTG: Patient will demonstrate safe transfers to/from bed, chair and toilet independently with AD, to be achieved by 04/20/25. PT Impaired mobility No Improved Gait Description: LTG: Patient will demonstrate improved gait ability as evidenced by ambulation 200 feet with rollator walker independently with AD, to return to safe household ambulation, in order to reach car in the driveway, to be achieved by 04/20/25. PT Impaired gait No Improved Balance Description: LTG: Patient will demonstrate improved standing balance to meet functional goals as evidenced by no falls during home P.T. to be achieved by 04/20/25. PT Impaired balance No Manage Neurologic Condition Description: Improve patient and/or caregiver understanding of post surgical and/or non-surgical neurologic intervention management as evidenced by patient and/or caregiver able to verbalize, demonstrate, and teach back instruction, to be achieved by 04/20/25. PT Neurologic Condition No Demonstrate understanding of education Description: Patient and/or caregiver will understand educational instruction to be achieved by 04/20/25. PT Learning Assessment No Interventions Intervention Associated Problem/Goal Status Variance Visit Notes Medication Education Description: Evaluate/instruct patient/caregiver on obtaining, storing, identifying and administering ordered medications as well as keeping accurate medication list in the home and adhereing to medication schedule Problem:Medication Education Goal:Patient/caregive r will demonstrate ability to obtain, store, identify and administer ordered medications, keep accurate medication list in home, and adhere to medication schedule Completed Patient instructed on importance of keeping accurate medication list in home. Risk of Sepsis Description: Patient is at risk for sepsis. Monitor closely for s/s of sepsis. Problem:Sepsis Goal:Patient/caregive r will be able to identify and report symptoms of sepsis Completed PT evaluation and treatment Description: Evaluate and treat for the assessment of functional deficits and establishment of appropriate interventions and education, including recommendations for functional mobility training, balance training for fall reduction, and strengthening. Problem:PT Referral Goal:Patient will be referred to additional discipline as needed Completed SPO2 Description: Notify Jeanine Fermin APRN.MECHANICAL INTERN if pulse ox is <92% at rest. Problem:Physician Specific Parameters Goal:Patient to maintain parameters within physician-specified ranges throughout certification period Completed Instruct on individual fall risk factors and strategies to prevent falls and injuries caused by falls. Problem:Risk for Falls Goal:Manage Risk for falls Completed PT: Patient instructed on Managing Pain Instruct on ongoing discharge plan Problem:Discharge Goal:Manage discharge planning Completed Ongoing Discharge plan: Discharge plan discussed with patient including frequency and duration for home PT and plan for transition to: caregiver assistance. Physical Therapy Therapeutic Exercises Problem:PT Impaired muscle performance and/or ROM Goal:Improved Muscle Performance and/or ROM Completed patient instructed on strengthening and range of motion exercises including ankle pumps, quad sets, glut sets, laq, standing knee flexion 10 times each with verbal cues for sequence. patient instructed to perform home exercise program twice a day Physical Therapy Transfer Training Problem:PT Impaired mobility Goal:Improved Transfers Completed Transfer training and instruction to patient on safe transfers to and from chair and toilet with supervision and verbal cues for sequence. Physical Therapy Gait Training Problem:PT Impaired gait Goal:Improved Gait Completed Gait training and instruction to patient on safe ambulation with rollator walker for 50 feet with supervision, with verbal cues for corrections of gait deviations including sequence. Physical Therapy Balance Training Problem:PT Impaired balance Goal:Improved Balance Completed Developed, implemented, and instructed patient on standing balance exercises including ambulation with rollator. Instruct on self-management of post surgical and/or non-surgical neurologic intervention Problem:PT Neurologic Condition Goal:Manage Neurologic Condition Completed patient instructed on definition of neurologic disease. Instruct and educate on knowledge deficits Problem:PT Learning Assessment Goal:Demonstrate understanding of education Completed patient verbalize and/or demonstrate understanding of physical therapy education including fall prevention strategies, home safety, functional activity and home exercise program. Education methods include: verbal cues. Further education required to improve knowledge and compliance with fall prevention strategies, home safety, functional activity and home exercise program. documented in this encounter [facility]'s home Plan of care note* Visit Details Visit Type -ENVIRONMENTAL ENGINEER SCIENTIST ROUTINE Discipline -Physical Therapy Problems Problem Description Start Date Status Goals Interve ntions Medication Education Disciplines: Skilled Services 03/23/2025 Active 1 goal linked to scheduled/document ed intervention 1 goal intervention scheduled/document ed in this visit Sepsis Disciplines: Skilled Services 03/23/2025 Active 1 goal linked to scheduled/document ed intervention 1 goal intervention scheduled/document ed in this visit Physician Specific Parameters Disciplines: Skilled Services 03/23/2025 Active 1 goal linked to scheduled/document ed intervention 1 goal intervention scheduled/document ed in this visit Risk for Falls Disciplines: Skilled Services 03/23/2025 Active 1 goal linked to scheduled/document ed intervention 1 goal intervention scheduled/document ed in this visit Pain Disciplines: Skilled Services 03/23/2025 Active 1 goal linked to scheduled/document ed intervention 1 goal intervention scheduled/document ed in this visit Discharge Disciplines: Skilled Services 03/23/2025 Active 1 goal linked to scheduled/document ed intervention 1 goal intervention scheduled/document ed in this visit PT Impaired muscle performance and/or ROM Disciplines: PT 03/29/2025 Active 1 goal linked to scheduled/document ed intervention 1 goal intervention scheduled/document ed in this visit PT Impaired mobility Disciplines: PT 03/29/2025 Active 1 goal linked to scheduled/document ed intervention 1 goal intervention scheduled/document ed in this visit PT Impaired gait Disciplines: PT 03/29/2025 Active 1 goal linked to scheduled/document ed intervention 1 goal intervention scheduled/document ed in this visit PT Impaired balance Disciplines: PT 03/29/2025 Active 1 goal linked to scheduled/document ed intervention 1 goal intervention scheduled/document ed in this visit PT Neurologic Condition Disciplines: PT 03/29/2025 Active 1 goal linked to scheduled/document ed intervention 1 goal intervention scheduled/document ed in this visit PT Learning Assessment Disciplines: PT 03/29/2025 Active 1 goal linked to scheduled/document ed intervention 1 goal intervention scheduled/document ed in this visit Goals Goal Associated Problem Outcome Goal Met? Visit Notes Patient/caregiver will demonstrate ability to obtain, store, identify and administer ordered medications, keep accurate medication list in home, and adhere to medication schedule Description: Patient/caregiver will demonstrate ability to obtain, store, identify and administer ordered medications, keep accurate medication list in home, and adhere to medication schedule by 05/16/25. Medication Education No Patient/caregiver will be able to identify and report symptoms of sepsis Description: Patient/caregiver will be able to identify signs/symptoms of sepsis infection and will verbalize actions to take if suspected by 05/21/25. Sepsis No Patient to maintain parameters within physician-specified ranges throughout certification period Physician Specific Parameters No Manage Risk for falls Description: Patient/caregiver will verbalize knowledge of individualized fall prevention strategies by 05/21/25. Risk for Falls No Manage Pain Description: Patient/caregiver will verbalize knowledge and understanding of appropriate techniques to control pain, including pain medication and non-pharmacological techniques. Patient will verbalize or demonstrate an acceptable level of pain as evidenced by a pain score of 3/10 and improvement in ability to perform activities of daily living to be achieved by 05/21/25. Pain No Manage discharge planning Description: Patient/caregiver will verbalize understanding of ongoing discharge plan provided related to disease management, arrangements for outpatient and/or community services, obtaining medications, supplies, and DME, as needed throughout certification period. Discharge No Improved Muscle Performance and/or ROM Description: LTG: Patient will demonstrate improved muscle performance to meet functional goals as evidenced by ability to tolerate 8 mins of standing activity, to be achieved by 04/20/25. LTG: Patient and/or caregiver will verbalize/demonstrate independence with home exercise program, to improve functional mobility, to be achieved by 04/20/25. PT Impaired muscle performance and/or ROM No Improved Transfers Description: LTG: Patient will demonstrate safe transfers to/from bed, chair and toilet independently with AD, to be achieved by 04/20/25. PT Impaired mobility No Improved Gait Description: LTG: Patient will demonstrate improved gait ability as evidenced by ambulation 200 feet with rollator walker independently with AD, to return to safe household ambulation, in order to reach car in the driveway, to be achieved by 04/20/25. PT Impaired gait No Improved Balance Description: LTG: Patient will demonstrate improved standing balance to meet functional goals as evidenced by no falls during home P.T. to be achieved by 04/20/25. PT Impaired balance No Manage Neurologic Condition Description: Improve patient and/or caregiver understanding of post surgical and/or non-surgical neurologic intervention management as evidenced by patient and/or caregiver able to verbalize, demonstrate, and teach back instruction, to be achieved by 04/20/25. PT Neurologic Condition No Demonstrate understanding of education Description: Patient and/or caregiver will understand educational instruction to be achieved by 04/20/25. PT Learning Assessment No Interventions Intervention Associated Problem/Goal Status Variance Visit Notes Medication Education Description: Evaluate/instruct patient/caregiver on obtaining, storing, identifying and administering ordered medications as well as keeping accurate medication list in the home and adhereing to medication schedule Problem:Medication Education Goal:Patient/caregive r will demonstrate ability to obtain, store, identify and administer ordered medications, keep accurate medication list in home, and adhere to medication schedule Completed Patient and Caregiver instructed on importance of keeping accurate medication list in home. Risk of Sepsis Description: Patient is at risk for sepsis. Monitor closely for s/s of sepsis. Problem:Sepsis Goal:Patient/caregive r will be able to identify and report symptoms of sepsis Completed SPO2 Description: Notify Jeanine Fermin APRN.MECHANICAL INTERN if pulse ox is <92% at rest. Problem:Physician Specific Parameters Goal:Patient to maintain parameters within physician-specified ranges throughout certification period Completed Instruct on individual fall risk factors and strategies to prevent falls and injuries caused by falls. Problem:Risk for Falls Goal:Manage Risk for falls Completed PT: Patient and Caregiver instructed on Managing Impaired Functional Mobility: Use assistive device(s): rollator walker Instruct on pain and instruct on strategies to control pain Problem:Pain Goal:Manage Pain Completed patient and caregiver instructed on techniques to control pain including Non-Pharmacological measures; rest. Instruct on ongoing discharge plan Problem:Discharge Goal:Manage discharge planning Completed Ongoing Discharge plan: Discharge plan discussed with patient and caregiver including frequency and duration for home PT and plan for transition to: live independently at home without ongoing services. Physical Therapy Therapeutic Exercises Problem:PT Impaired muscle performance and/or ROM Goal:Improved Muscle Performance and/or ROM Completed patient and caregiver instructed on strengthening exercises including seated faq x's 10 each. standing march, hip abd, hams curls and functional squats x's 10 each w/ seated rest break after each exercise with verbal, visual and written cues for progressions and form. patient and CG instructed to perform home exercise program daily which included above ex. Physical Therapy Transfer Training Problem:PT Impaired mobility Goal:Improved Transfers Completed Transfer training and instruction to patient and caregiver on safe transfers to and from chair with supervision and verbal cues for reaching back for chair prior to sitting. Physical Therapy Gait Training Problem:PT Impaired gait Goal:Improved Gait Completed Gait training and instruction to patient and caregiver on safe ambulation with rollator walker for 60 feet with stand by assist, with verbal cues for corrections of gait deviations including increased step height with RLE. Patient tends to slide right foot to advance it. Physical Therapy Balance Training Problem:PT Impaired balance Goal:Improved Balance Completed Developed, implemented, and instructed patient and caregiver on standing balance exercises including standing exercises at counter . Instruct on self-management of post surgical and/or non-surgical neurologic intervention Problem:PT Neurologic Condition Goal:Manage Neurologic Condition Completed patient and caregiver instructed on instructed on when to call provider. Instruct and educate on knowledge deficits Problem:PT Learning Assessment Goal:Demonstrate understanding of education Completed patient and caregiver verbalize and/or demonstrate understanding of physical therapy education including home exercise program. Education methods include: verbal cues, written instructions and visual cues. Further education required to improve knowledge and compliance with home exercise program. documented in this encounter [facility]'s home Plan of care note* Visit Details Visit Type -UPHOLSTERY TECHNICIAN ROUTINE Discipline -Speech Language Pathology Problems Problem Description Start Date Status Goals Interve ntions Medication Education Disciplines: Skilled Services 03/23/2025 Active 1 goal linked to scheduled/documente d intervention 1 goal intervention scheduled/documente d in this visit Sepsis Disciplines: Skilled Services 03/23/2025 Active 1 goal linked to scheduled/documente d intervention 1 goal intervention scheduled/documente d in this visit Physician Specific Parameters Disciplines: Skilled Services 03/23/2025 Active 1 goal linked to scheduled/documente d intervention 1 goal intervention scheduled/documente d in this visit Risk for Falls Disciplines: Skilled Services 03/23/2025 Active 1 goal linked to scheduled/documente d intervention 1 goal intervention scheduled/documente d in this visit Pain Disciplines: Skilled Services 03/23/2025 Active 1 goal linked to scheduled/documente d intervention 1 goal intervention scheduled/documente d in this visit Nutrition/Hydra tion Disciplines: Skilled Services 03/23/2025 Active 1 goal linked to scheduled/documente d intervention 1 goal intervention scheduled/documente d in this visit Discharge Disciplines: Skilled Services 03/23/2025 Active 1 goal linked to scheduled/documente d intervention 1 goal intervention scheduled/documente d in this visit UPHOLSTERY TECHNICIAN Learning Assessment Disciplines: UPHOLSTERY TECHNICIAN 03/23/2025 Active 1 goal linked to scheduled/documente d intervention 1 goal intervention scheduled/documente d in this visit UPHOLSTERY TECHNICIAN Dysphagia Impaired Swallow Function Disciplines: UPHOLSTERY TECHNICIAN 03/23/2025 Active 1 goal linked to scheduled/documente d intervention 1 goal intervention scheduled/documente d in this visit UPHOLSTERY TECHNICIAN Dementia Impaired Memory/Cognitio n Disciplines: UPHOLSTERY TECHNICIAN 03/23/2025 Active 5 goals linked to scheduled/documente d interventions 5 goal interventions scheduled/documente d in this visit Goals Goal Associated Problem Outcome Goal Met? Visit Notes Patient/caregiver will demonstrate ability to obtain, store, identify and administer ordered medications, keep accurate medication list in home, and adhere to medication schedule Description: Patient/caregiver will demonstrate ability to obtain, store, identify and administer ordered medications, keep accurate medication list in home, and adhere to medication schedule by 05/16/25. Medication Education No Patient/caregiver will be able to identify and report symptoms of sepsis Description: Patient/caregiver will be able to identify signs/symptoms of sepsis infection and will verbalize actions to take if suspected by 05/21/25. Sepsis No Patient to maintain parameters within physician-specified ranges throughout certification period Physician Specific Parameters No Manage Risk for falls Description: Patient/caregiver will verbalize knowledge of individualized fall prevention strategies by 05/21/25. Risk for Falls No Manage Pain Description: Patient/caregiver will verbalize knowledge and understanding of appropriate techniques to control pain, including pain medication and non-pharmacological techniques. Patient will verbalize or demonstrate an acceptable level of pain as evidenced by a pain score of 3/10 and improvement in ability to perform activities of daily living to be achieved by 05/21/25. Pain No Manage Nutrition/Hydration Description: Patient/caregiver will verbalize/demonstrate knowledge of prescribed diet and/or healthy nutrition to be achieved by 05/16/25. Nutrition/Hydration No Manage discharge planning Description: Patient/caregiver will verbalize understanding of ongoing discharge plan provided related to disease management, arrangements for outpatient and/or community services, obtaining medications, supplies, and DME, as needed throughout certification period. Discharge No Patient/Caregiver Demonstrates understanding of education Description: patient and caregiver will understand educational instruction, to be achieved by 05/16/25. UPHOLSTERY TECHNICIAN Learning Assessment No Improve Swallowing Tolerance Description: Patient will demonstrate ability to manage the following IDDSI food texture: easy to chew(7EC) and IDDSI liquid consistency: thin(0) or ice chips with no overt signs or symptoms of aspiration/dysphagia with/in 90% trials, with compensatory swallowing strategies/cues. To be achieved by 05/16/25. 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 To be achieved by 05/16/25. UPHOLSTERY TECHNICIAN Dementia Impaired Memory/Cognition No Interventions Intervention Associated Problem/Goal Status Variance Visit Notes Medication Education Description: Evaluate/instruct patient/caregiver on obtaining, storing, identifying and administering ordered medications as well as keeping accurate medication list in the home and adhereing to medication schedule Problem:Medication Education Goal:Patient/caregive r will demonstrate ability to obtain, store, identify and administer ordered medications, keep accurate medication list in home, and adhere to medication schedule Completed Patient and Caregiver instructed on adhering to medication schedule. Risk of Sepsis Description: Patient is at risk for sepsis. Monitor closely for s/s of sepsis. Problem:Sepsis Goal:Patient/caregive r will be able to identify and report symptoms of sepsis Completed SPO2 Description: Notify Jeanine Fermin APRN.MECHANICAL INTERN if pulse ox is <92% at rest. Problem:Physician Specific Parameters Goal:Patient to maintain parameters within physician-specified ranges throughout certification period Completed Instruct on individual fall risk factors and strategies to prevent falls and injuries caused by falls. Problem:Risk for Falls Goal:Manage Risk for falls Completed UPHOLSTERY TECHNICIAN: Patient and Caregiver instructed on Managing Impaired Functional Mobility: Use assistive device(s): rollator walker and handrails. Instruct on pain and instruct on strategies to control pain Problem:Pain Goal:Manage Pain Completed patient and caregiver instructed on techniques to control pain including Pharmacological measures and Non-Pharmacological measures; rest. Define patient s appetite/hydration status and implement strategies to improve compliance with prescribed diet and/or healthy nutrition. Problem:Nutrition/Hyd ration Goal:Manage Nutrition/Hydration Completed reinforced patient and caregiver on implementing strategies to comply with healthy nutrition and adequate hydration Instruct on ongoing discharge plan Problem:Discharge Goal:Manage discharge planning Completed Ongoing Discharge plan: Discharge plan discussed with patient and caregiver including frequency and duration for home ST and plan for transition to: caregiver assistance. Assessment of patient/caregiver knowledge deficit and educational instruction Problem:UPHOLSTERY TECHNICIAN Learning Assessment Goal:Patient/Caregive r Demonstrates understanding of education Completed Education methods include: verbal cues, written instructions, visual cues and teach back. Further education required to improve knowledge and compliance with dysphagia, fall risk, functional cognitive, dementia management program and home exercise program. Dysphagia therapy modification of food/liquids disease process education Problem:UPHOLSTERY TECHNICIAN Dysphagia Impaired Swallow Function Goal:Improve Swallowing Tolerance Completed Patient/caregiver instructed on IDDSI food texture easy to chew(7EC) and IDDSI liquid consistency thin(0) or secretions and provided education on preparation of appropriate diet texture. UPHOLSTERY TECHNICIAN presented PO trials with soft, easy to chew/thin texture/consistency and patient tolerated with/in 100% trials, with compensatory swallowing strategies/cues. Patient/Caregiver verbalize understanding of dysphagia home program at 80% accuracy. Cognitive Home Exercise Program Completion and Instruction Problem:UPHOLSTERY TECHNICIAN Dementia Impaired Memory/Cognition Goal:Dementia Cognitive Home Exercise Program Completion And Instruction 4 Completed Instructed patient/caregiver on cognitive-linguistic home exercise program to improve memory for simple social, daily living tasks to improve basic social, emotional and safety needs and orientation with minimal cueing with/in 75% opportunities. Caregiver Resources and Development of HEP Problem:UPHOLSTERY TECHNICIAN Dementia Impaired Memory/Cognition Goal:DEMENTIA CAREGIVER RESOURCES AND DEVELOPMENT OF HEP/ACTIVITIES 3 Completed UPHOLSTERY TECHNICIAN provided information as to supportive resources that are available: [employer]. Memory Strategies and Cognitive Exercises Problem:UPHOLSTERY TECHNICIAN Dementia Impaired Memory/Cognition Goal:Dementia Memory Strategies And Cognitive Exercises 2 Completed Instructed patient/caregiver to use of compensatory memory strategies memory notebook, daily schedule, dry erase board, repetition and writing cues to improve patient ability to recall information within the home environment/decrease challenging behaviors with moderate cueing with /in 70% opportunities. Instructed patient/caregiver to use daily routine/schedule for morning, evening, toileting and medications within the home environment/decrease challenging behaviors with minimal cueing with /in 75% accuracy/trials/opport unities. Instructed patient/caregiver to complete cognitive stimulation exercises/activites daily with moderate cueing with /in 70% accuracy/trials/opport unities. UPHOLSTERY TECHNICIAN instructed caregiver to complete similar exercise to set up home exercise program. Cognitive Exercise Problem:UPHOLSTERY TECHNICIAN Dementia Impaired Memory/Cognition Goal:Dementia Impaired Cognition 1 Completed car stock did just get hereSLP instructed patient/caregiver on orientation to place and situation and use of visual, verbal and written cues to help improve patient ability to increase interaction within the home environment/decrease challenging behaviors with minimal moderate cueing with/in 75% trials. UPHOLSTERY TECHNICIAN Instructed patient/caregiver on safety awareness related to memory loss and need for supervision, completing ADL tasks and completing IADL tasks for maximum safety in the home environment. Memory Strategies and Cognitive Exercises Problem:UPHOLSTERY TECHNICIAN Dementia Impaired Memory/Cognition Goal:Improve Awareness Of Disease Process And Strategies To Deal With Dementia Related Changes Completed Instructed patient/caregiver on use of: compensatory memory strategies, orientation techniques, disease process related to possible progressive decline of cognition and memory skills and resources available, and is able to demonstrate with 80% accuracy. documented in this encounter [facility]'s home Plan of care note* Visit Details Visit Type -ENVIRONMENTAL ENGINEER SCIENTIST ROUTINE Discipline -Physical Therapy Problems Problem Description Start Date Status Goals Interve ntions Medication Education Disciplines: Skilled Services 03/23/2025 Active 1 goal linked to scheduled/document ed intervention 1 goal intervention scheduled/document ed in this visit Sepsis Disciplines: Skilled Services 03/23/2025 Active 1 goal linked to scheduled/document ed intervention 1 goal intervention scheduled/document ed in this visit Physician Specific Parameters Disciplines: Skilled Services 03/23/2025 Active 1 goal linked to scheduled/document ed intervention 1 goal intervention scheduled/document ed in this visit Risk for Falls Disciplines: Skilled Services 03/23/2025 Active 1 goal linked to scheduled/document ed intervention 1 goal intervention scheduled/document ed in this visit Pain Disciplines: Skilled Services 03/23/2025 Active 1 goal linked to scheduled/document ed intervention 1 goal intervention scheduled/document ed in this visit Discharge Disciplines: Skilled Services 03/23/2025 Active 1 goal linked to scheduled/document ed intervention 1 goal intervention scheduled/document ed in this visit PT Impaired muscle performance and/or ROM Disciplines: PT 03/29/2025 Active 1 goal linked to scheduled/document ed intervention 1 goal intervention scheduled/document ed in this visit PT Impaired mobility Disciplines: PT 03/29/2025 Active 1 goal linked to scheduled/document ed intervention 1 goal intervention scheduled/document ed in this visit PT Impaired gait Disciplines: PT 03/29/2025 Active 1 goal linked to scheduled/document ed intervention 1 goal intervention scheduled/document ed in this visit PT Impaired balance Disciplines: PT 03/29/2025 Active 1 goal linked to scheduled/document ed intervention 1 goal intervention scheduled/document ed in this visit PT Neurologic Condition Disciplines: PT 03/29/2025 Active 1 goal linked to scheduled/document ed intervention 1 goal intervention scheduled/document ed in this visit PT Learning Assessment Disciplines: PT 03/29/2025 Active 1 goal linked to scheduled/document ed intervention 1 goal intervention scheduled/document ed in this visit Goals Goal Associated Problem Outcome Goal Met? Visit Notes Patient/caregiver will demonstrate ability to obtain, store, identify and administer ordered medications, keep accurate medication list in home, and adhere to medication schedule Description: Patient/caregiver will demonstrate ability to obtain, store, identify and administer ordered medications, keep accurate medication list in home, and adhere to medication schedule by 05/16/25. Medication Education No Patient/caregiver will be able to identify and report symptoms of sepsis Description: Patient/caregiver will be able to identify signs/symptoms of sepsis infection and will verbalize actions to take if suspected by 05/21/25. Sepsis No Patient to maintain parameters within physician-specified ranges throughout certification period Physician Specific Parameters No Manage Risk for falls Description: Patient/caregiver will verbalize knowledge of individualized fall prevention strategies by 05/21/25. Risk for Falls No Manage Pain Description: Patient/caregiver will verbalize knowledge and understanding of appropriate techniques to control pain, including pain medication and non-pharmacological techniques. Patient will verbalize or demonstrate an acceptable level of pain as evidenced by a pain score of 3/10 and improvement in ability to perform activities of daily living to be achieved by 05/21/25. Pain No Manage discharge planning Description: Patient/caregiver will verbalize understanding of ongoing discharge plan provided related to disease management, arrangements for outpatient and/or community services, obtaining medications, supplies, and DME, as needed throughout certification period. Discharge No Improved Muscle Performance and/or ROM Description: LTG: Patient will demonstrate improved muscle performance to meet functional goals as evidenced by ability to tolerate 8 mins of standing activity, to be achieved by 04/20/25. LTG: Patient and/or caregiver will verbalize/demonstrate independence with home exercise program, to improve functional mobility, to be achieved by 04/20/25. PT Impaired muscle performance and/or ROM No Improved Transfers Description: LTG: Patient will demonstrate safe transfers to/from bed, chair and toilet independently with AD, to be achieved by 04/20/25. PT Impaired mobility No Improved Gait Description: LTG: Patient will demonstrate improved gait ability as evidenced by ambulation 200 feet with rollator walker independently with AD, to return to safe household ambulation, in order to reach car in the driveway, to be achieved by 04/20/25. PT Impaired gait No Improved Balance Description: LTG: Patient will demonstrate improved standing balance to meet functional goals as evidenced by no falls during home P.T. to be achieved by 04/20/25. PT Impaired balance No Manage Neurologic Condition Description: Improve patient and/or caregiver understanding of post surgical and/or non-surgical neurologic intervention management as evidenced by patient and/or caregiver able to verbalize, demonstrate, and teach back instruction, to be achieved by 04/20/25. PT Neurologic Condition No Demonstrate understanding of education Description: Patient and/or caregiver will understand educational instruction to be achieved by 04/20/25. PT Learning Assessment No Interventions Intervention Associated Problem/Goal Status Variance Visit Notes Medication Education Description: Evaluate/instruct patient/caregiver on obtaining, storing, identifying and administering ordered medications as well as keeping accurate medication list in the home and adhereing to medication schedule Problem:Medication Education Goal:Patient/caregive r will demonstrate ability to obtain, store, identify and administer ordered medications, keep accurate medication list in home, and adhere to medication schedule Completed Patient and Caregiver instructed on importance of keeping accurate medication list in home. Risk of Sepsis Description: Patient is at risk for sepsis. Monitor closely for s/s of sepsis. Problem:Sepsis Goal:Patient/caregive r will be able to identify and report symptoms of sepsis Completed SPO2 Description: Notify Jeanine Fermin APRN.MECHANICAL INTERN if pulse ox is <92% at rest. Problem:Physician Specific Parameters Goal:Patient to maintain parameters within physician-specified ranges throughout certification period Completed Instruct on individual fall risk factors and strategies to prevent falls and injuries caused by falls. Problem:Risk for Falls Goal:Manage Risk for falls Completed PT: Patient and Caregiver instructed on Managing Impaired Functional Mobility: Use assistive device(s): rollator walker Instruct on pain and instruct on strategies to control pain Problem:Pain Goal:Manage Pain Completed patient denies pain Instruct on ongoing discharge plan Problem:Discharge Goal:Manage discharge planning Completed Ongoing Discharge plan: Discharge plan discussed with patient including frequency and duration for home PT and plan for transition to: caregiver assistance. Physical Therapy Therapeutic Exercises Problem:PT Impaired muscle performance and/or ROM Goal:Improved Muscle Performance and/or ROM Completed patient and caregiver instructed on strengthening exercises including red tband ankle PF and DF, standing heel toe raises, hip abd,flexion and ext, hams curls and 1/4 squats x's 10 each w/ seated rest breaks as needed for fatigue with verbal, visual and written cues for form. patient and caregiver instructed to perform home exercise program daily which included above ex. Physical Therapy Transfer Training Problem:PT Impaired mobility Goal:Improved Transfers Completed Transfer training and instruction to patient and caregiver on safe transfers to and from toilet with stand by assist and verbal cues for safety. Recommended the following adaptive equipment/durable medical equipment: grab bar(s). Physical Therapy Gait Training Problem:PT Impaired gait Goal:Improved Gait Completed Gait training and instruction to patient and caregiver on safe ambulation with rollator walker for 2x'100 feet with stand by assist, with verbal cues for corrections of gait deviations including increased step height. Physical Therapy Balance Training Problem:PT Impaired balance Goal:Improved Balance Completed Developed, implemented, and instructed patient and caregiver on standing balance exercises including unsupported standing, lateral stpping at counter, tandem walking at counter w/ CGA for safety. Instruct on self-management of post surgical and/or non-surgical neurologic intervention Problem:PT Neurologic Condition Goal:Manage Neurologic Condition Completed patient and caregiver instructed on instructed on when to call [phone] (balance, eyes, face, arms, speech, time). Instruct and educate on knowledge deficits Problem:PT Learning Assessment Goal:Demonstrate understanding of education Completed patient and caregiver verbalize and/or demonstrate understanding of physical therapy education including home exercise program. Education methods include: verbal cues, written instructions and visual cues. Further education required to improve knowledge and compliance with home exercise program. [facility] Visit Details Visit Type -PT DISC DC W VIS IT Discipline -Physical Therapy Problems Problem Description Start Date Status Goals Interve ntions Sepsis Disciplines: Skilled Services 03/23/2025 Active 1 goal linked to scheduled/document ed intervention 1 goal intervention scheduled/document ed in this visit Physician Specific Parameters Disciplines: Skilled Services 03/23/2025 Active 1 goal linked to scheduled/document ed intervention 1 goal intervention scheduled/document ed in this visit Risk for Falls Disciplines: Skilled Services 03/23/2025 Active 1 goal linked to scheduled/document ed intervention 1 goal intervention scheduled/document ed in this visit PT Impaired muscle performance and/or ROM Disciplines: PT 03/29/2025 Resolved on 04/17/2025 1 goal linked to scheduled/document ed intervention 1 goal intervention scheduled/document ed in this visit PT Impaired mobility Disciplines: PT 03/29/2025 Resolved on 04/17/2025 2 goals linked to scheduled/document ed interventions 2 goal interventions scheduled/document ed in this visit PT Impaired gait Disciplines: PT 03/29/2025 Resolved on 04/17/2025 1 goal linked to scheduled/document ed intervention 1 goal intervention scheduled/document ed in this visit PT Impaired balance Disciplines: PT 03/29/2025 Resolved on 04/17/2025 1 goal linked to scheduled/document ed intervention 1 goal intervention scheduled/document ed in this visit PT Neurologic Condition Disciplines: PT 03/29/2025 Resolved on 04/17/2025 1 goal linked to scheduled/document ed intervention 1 goal intervention scheduled/document ed in this visit PT Learning Assessment Disciplines: PT 03/29/2025 Resolved on 04/17/2025 1 goal linked to scheduled/document ed intervention 1 goal intervention scheduled/document ed in this visit Goals Goal Associated Problem Outcome Goal Met? Visit Notes Patient/caregiver will be able to identify and report symptoms of sepsis Description: Patient/caregiver will be able to identify signs/symptoms of sepsis infection and will verbalize actions to take if suspected by 05/21/25. Sepsis No Patient to maintain parameters within physician-specified ranges throughout certification period Physician Specific Parameters No Manage Risk for falls Description: Patient/caregiver will verbalize knowledge of individualized fall prevention strategies by 05/21/25. Risk for Falls No Improved Muscle Performance and/or ROM Description: LTG: Patient will demonstrate improved muscle performance to meet functional goals as evidenced by ability to tolerate 8 mins of standing activity, to be achieved by 04/20/25. LTG: Patient and/or caregiver will verbalize/demonstrate independence with home exercise program, to improve functional mobility, to be achieved by 04/20/25. PT Impaired muscle performance and/or ROM Completed Yes Improved Transfers Description: LTG: Patient will demonstrate safe transfers to/from bed, chair and toilet independently with AD, to be achieved by 04/20/25. PT Impaired mobility Completed Yes Improved Bed Mobility Description: STG: Patient will demonstrate improved ability to position self independently to be achieved by 04/13/25. PT Impaired mobility Completed Yes Improved Gait Description: LTG: Patient will demonstrate improved gait ability as evidenced by ambulation 200 feet with rollator walker independently with AD, to return to safe household ambulation, in order to reach car in the driveway, to be achieved by 04/20/25. PT Impaired gait Completed Yes Improved Balance Description: LTG: Patient will demonstrate improved standing balance to meet functional goals as evidenced by no falls during home P.T. to be achieved by 04/20/25. PT Impaired balance Completed Yes Manage Neurologic Condition Description: Improve patient and/or caregiver understanding of post surgical and/or non-surgical neurologic intervention management as evidenced by patient and/or caregiver able to verbalize, demonstrate, and teach back instruction, to be achieved by 04/20/25. PT Neurologic Condition Completed Yes Demonstrate understanding of education Description: Patient and/or caregiver will understand educational instruction to be achieved by 04/20/25. PT Learning Assessment Completed Yes Interventions Intervention Associated Problem/Goal Status Variance Visit Notes Risk of Sepsis Description: Patient is at risk for sepsis. Monitor closely for s/s of sepsis. Problem:Sepsis Goal:Patient/caregiver will be able to identify and report symptoms of sepsis Completed SPO2 Description: Notify Jeanine Fermin APRN.MECHANICAL INTERN if pulse ox is <92% at rest. Problem:Physician Specific Parameters Goal:Patient to maintain parameters within physician-specified ranges throughout certification period Completed Instruct on individual fall risk factors and strategies to prevent falls and injuries caused by falls. Problem:Risk for Falls Goal:Manage Risk for falls Completed PT: Caregiver instructed on Eliminating Environmental Hazards: Keep pathways clear, Keep pets out of pathways, Remove unsafe rugs, Move furniture from pathways, Keep rooms and walkways well lit, Install hand rails/grab bars and Wear supportive shoes or non-skid socks Managing Cognitive Impairment/Depression : Recommended for caregiver to provide 24 hour supervision Managing Impaired Functional Mobility: Use assistive device(s): front wheeled walker and rollator walker Physical Therapy Therapeutic Exercises Problem:PT Impaired muscle performance and/or ROM Goal:Improved Muscle Performance and/or ROM Completed patient and caregiver instructed on strengthening exercises including red tband ankle PF and DF, standing heel toe raises, hip abd,flexion and ext, hams curls and 1/4 squats x's 10 each w/ seated rest breaks as needed for fatigue with verbal, visual and written cues for form. patient and caregiver instructed to perform home exercise program daily which included above ex. Physical Therapy Transfer Training Problem:PT Impaired mobility Goal:Improved Transfers Completed SBA- CGA transfers with cues for technique REcommended that they get a rocker recliner that they can lock during transfers Physical Therapy Bed Mobility Training Problem:PT Impaired mobility Goal:Improved Bed Mobility Completed FATMATA bed mobility Physical Therapy Gait Training Problem:PT Impaired gait Goal:Improved Gait Completed supervised amb with RW, recip pattern with dragging of the R foot , able to correct with cuing but requires repeated cues Advised spouse that if /when the weakness in the R le increases it will be good to advance to the WW Physical Therapy Balance Training Problem:PT Impaired balance Goal:Improved Balance Completed pt demonstrates improved dynamic standing balance as evidenced by atug of 24 Instruct on self-management of post surgical and/or non-surgical neurologic intervention Problem:PT Neurologic Condition Goal:Manage Neurologic Condition Completed patient instructed on instructed on when to call provider. Instruct and educate on knowledge deficits Problem:PT Learning Assessment Goal:Demonstrate understanding of education Completed patient verbalize and/or demonstrate understanding of physical therapy education including fall prevention strategies, home safety, functional activity and home exercise program. Education methods include: verbal cues and written instructions. [facility] Visit Details Visit Type -UPHOLSTERY TECHNICIAN REASSESSMENT Discipline -Speech Language Pathology Problems Problem Description Start Date Status Goals Interve ntions Medication Education Disciplines: Skilled Services 03/23/2025 Active 1 goal linked to scheduled/documente d intervention 1 goal intervention scheduled/documente d in this visit Sepsis Disciplines: Skilled Services 03/23/2025 Active 1 goal linked to scheduled/documente d intervention 1 goal intervention scheduled/documente d in this visit Physician Specific Parameters Disciplines: Skilled Services 03/23/2025 Active 1 goal linked to scheduled/documente d intervention 1 goal intervention scheduled/documente d in this visit Risk for Falls Disciplines: Skilled Services 03/23/2025 Active 1 goal linked to scheduled/documente d intervention 1 goal intervention scheduled/documente d in this visit Nutrition/Hydra tion Disciplines: Skilled Services 03/23/2025 Active 1 goal linked to scheduled/documente d intervention 1 goal intervention scheduled/documente d in this visit Discharge Disciplines: Skilled Services 03/23/2025 Active 1 goal linked to scheduled/documente d intervention 2 goal interventions scheduled/documente d in this visit UPHOLSTERY TECHNICIAN Learning Assessment Disciplines: UPHOLSTERY TECHNICIAN 03/23/2025 Active 1 goal linked to scheduled/documente d intervention 1 goal intervention scheduled/documente d in this visit UPHOLSTERY TECHNICIAN Dysphagia Impaired Swallow Function Disciplines: UPHOLSTERY TECHNICIAN 03/23/2025 Active 1 goal linked to scheduled/documente d intervention 1 goal intervention scheduled/documente d in this visit UPHOLSTERY TECHNICIAN Dementia Impaired Memory/Cognitio n Disciplines: UPHOLSTERY TECHNICIAN 03/23/2025 Active 4 goals linked to scheduled/documente d interventions 4 goal interventions scheduled/documente d in this visit Goals Goal Associated Problem Outcome Goal Met? Visit Notes Patient/caregiver will demonstrate ability to obtain, store, identify and administer ordered medications, keep accurate medication list in home, and adhere to medication schedule Description: Patient/caregiver will demonstrate ability to obtain, store, identify and administer ordered medications, keep accurate medication list in home, and adhere to medication schedule by 05/16/25. Medication Education No Patient/caregiver will be able to identify and report symptoms of sepsis Description: Patient/caregiver will be able to identify signs/symptoms of sepsis infection and will verbalize actions to take if suspected by 05/21/25. Sepsis No Patient to maintain parameters within physician-specified ranges throughout certification period Physician Specific Parameters No Manage Risk for falls Description: Patient/caregiver will verbalize knowledge of individualized fall prevention strategies by 05/21/25. Risk for Falls No Manage Nutrition/Hydration Description: Patient/caregiver will verbalize/demonstrate knowledge of prescribed diet and/or healthy nutrition to be achieved by 05/16/25. Nutrition/Hydration No Manage discharge planning Description: Patient/caregiver will verbalize understanding of ongoing discharge plan provided related to disease management, arrangements for outpatient and/or community services, obtaining medications, supplies, and DME, as needed throughout certification period. Discharge No Patient/Caregiver Demonstrates understanding of education Description: patient and caregiver will understand educational instruction, to be achieved by 05/16/25. UPHOLSTERY TECHNICIAN Learning Assessment No Improve Swallow Function UPHOLSTERY TECHNICIAN Dysphagia Impaired Swallow Function No Dementia Cognitive Home Exercise Program Completion And Instruction 4 UPHOLSTERY TECHNICIAN Dementia Impaired Memory/Cognition No Dementia Memory Strategies And Cognitive Exercises 2 UPHOLSTERY TECHNICIAN Dementia Impaired Memory/Cognition No Dementia Impaired Cognition 1 UPHOLSTERY TECHNICIAN Dementia Impaired Memory/Cognition No Improve Awareness Of Disease Process And Strategies To Deal With Dementia Related Changes Description: Patient/Caregiver will demonstrate understanding of compensatory memory strategies, orientation techniques, disease process related to possible progressive decline of cognition and memory skills and resources available with 90% accuracy. To be achieved by 05/16/25. UPHOLSTERY TECHNICIAN Dementia Impaired Memory/Cognition No Interventions Intervention Associated Problem/Goal Status Variance Visit Notes Medication Education Description: Evaluate/instruct patient/caregiver on obtaining, storing, identifying and administering ordered medications as well as keeping accurate medication list in the home and adhereing to medication schedule Problem:Medication Education Goal:Patient/caregiver will demonstrate ability to obtain, store, identify and administer ordered medications, keep accurate medication list in home, and adhere to medication schedule Completed Patient and Caregiver instructed on adhering to medication schedule. Risk of Sepsis Description: Patient is at risk for sepsis. Monitor closely for s/s of sepsis. Problem:Sepsis Goal:Patient/caregiver will be able to identify and report symptoms of sepsis Completed SPO2 Description: Notify Jeanine Fermin APRN.MECHANICAL INTERN if pulse ox is <92% at rest. Problem:Physician Specific Parameters Goal:Patient to maintain parameters within physician-specified ranges throughout certification period Completed Instruct on individual fall risk factors and strategies to prevent falls and injuries caused by falls. Problem:Risk for Falls Goal:Manage Risk for falls Completed UPHOLSTERY TECHNICIAN: Patient and Caregiver instructed on Managing Cognitive Impairment/Depressio n: Recommended for caregiver to provide Assistance with ambulation, Assistance with transfers, Assistance with ADLS and Visual and verbal cues for safety Managing Impaired Functional Mobility: Use assistive device(s): gait belt and rollator walker and Caregiver to provide assist with: Ambulation, Steps, Transfers and ADL/IADLs . Define patient s appetite/hydration status and implement strategies to improve compliance with prescribed diet and/or healthy nutrition. Problem:Nutrition/Hydr ation Goal:Manage Nutrition/Hydration Completed reinforced patient and caregiver on implementing strategies to comply with healthy nutrition and adequate hydration Deliver [facility] Problem:Discharge Goal:Manage discharge planning Completed Delivered [facility] on 04/22/2025 for discharge date of 05/13/2025. Instruct on ongoing discharge plan Problem:Discharge Goal:Manage discharge planning Completed Ongoing Discharge plan: Discharge plan discussed with patient and caregiver including frequency and duration for home ST and plan for transition to: caregiver assistance. Assessment of patient/caregiver knowledge deficit and educational instruction Problem:UPHOLSTERY TECHNICIAN Learning Assessment Goal:Patient/Caregiver Demonstrates understanding of education Completed Education methods include: verbal cues, visual cues and teach back. Further education required to improve knowledge and compliance with dysphagia, aspiration precautions, fall risk, home safety awareness, functional cognitive, dementia management program and home exercise program. Compensatory strategies disease process education Description: Patient/caregiver will demonstrate understanding of disease process related to dysphagia: signs/symptoms of aspiration, results of MBS or FEES, rationale for diet modifications and safe swallow strategy use with 90% accuracy. To be achieved by 04/15/25. Problem:UPHOLSTERY TECHNICIAN Dysphagia Impaired Swallow Function Goal:Improve Swallow Function Completed Patient/caregiver cued and re-educated on signs and symptoms of dysphagia: coughing or choking while eating or drinking, recent pneumonia and inability to chew specific foods; results of MBS/FEES; rationale for diet modifications; good oral hygiene; swallow strategies to reduce aspiration risks small sips, slow rate of intake and alternate liquids with solids with/in 90% trials. Cognitive Home Exercise Program Completion and Instruction Problem:UPHOLSTERY TECHNICIAN Dementia Impaired Memory/Cognition Goal:Dementia Cognitive Home Exercise Program Completion And Instruction 4 Completed Instructed patient/caregiver on cognitive-linguistic home exercise program to improve memory for daily living tasks to improve basic social, emotional and safety needs, orientation, problem solving and executive function skills with moderate cueing with/in 70% opportunities. Memory Strategies and Cognitive Exercises Problem:UPHOLSTERY TECHNICIAN Dementia Impaired Memory/Cognition Goal:Dementia Memory Strategies And Cognitive Exercises 2 Completed Instructed patient/caregiver to use of compensatory memory strategies repetition, writing and verbal cues cues to improve patient ability to recall information within the home environment/decrease challenging behaviors with moderate cueing with /in 70% trials. Instructed patient/caregiver to use daily routine/schedule for morning, evening and toileting within the home environment/decrease challenging behaviors with minimal cueing with /in 80% accuracy/trials/oppo rtunities. Instructed patient/caregiver to complete cognitive stimulation exercises/activites daily with moderate cueing with /in 70% accuracy/trials/oppo rtunities. UPHOLSTERY TECHNICIAN instructed caregiver to complete similar exercise to set up home exercise program. Cognitive Exercise Problem:UPHOLSTERY TECHNICIAN Dementia Impaired Memory/Cognition Goal:Dementia Impaired Cognition 1 Completed UPHOLSTERY TECHNICIAN instructed patient/caregiver on orientation to situation and home environment and use of visual and verbal cues to help improve patient ability to increase interaction within the home environment/decrease challenging behaviors with moderate cueing with/in 75% opportunities. UPHOLSTERY TECHNICIAN Instructed patient/caregiver on safety awareness related to memory loss and need for supervision, completing ADL tasks and completing IADL tasks for maximum safety in the home environment. Memory Strategies and Cognitive Exercises Problem:UPHOLSTERY TECHNICIAN Dementia Impaired Memory/Cognition Goal:Improve Awareness Of Disease Process And Strategies To Deal With Dementia Related Changes Completed Instructed patient/caregiver on use of: compensatory memory strategies, orientation techniques and disease process related to possible progressive decline of cognition and memory skills, and is able to demonstrate with 80% accuracy. documented in this encounter [facility] for referral (narrative)* Diagnostic Procedure Only (Urgent) - Pending Review Specialty Diagnoses / Procedures Referred By Contac t Referred To Contact XR IMAGING Diagnoses Left wrist pain Procedures XR WRIST INJURY 4V PA/LAT/OBL/SCAPH LEFT RADEX WRIST COMPLETE MINIMUM 3 VIEWS Isabella Dasilva APRN.MECHANICAL INTERN [address] [place] [address] Xr Imaging Referral ID Status Reason Start Date Expiration Date Visits Requested Visits Authorized [id number] Pending Review Auto-Generat ed Referral 02/08/2022 03/09/2023 1 1 [facility] for referral (narrative)* Diagnostic Procedure Only (Routine) - Authorized Specialty Diagnoses / Procedures Referred By Contac t Referred To Contact XR IMAGING Diagnoses History of traumatic brain injury Balance problem Procedures XR LUMBAR GENERAL 3V AP/LAT/L5-S1 RADEX SPINE LUMBOSACRAL 2/3 VIEWS Ashley Ewing APRN.MECHANICAL INTERN [address] [place] [address] Xr Imaging Referral ID Status Reason Start Date Expiration Date Visits Requested Visits Authorized [id number] Authorized Auto-Generat ed Referral 06/17/2022 07/17/2023 1 1 [facility] for referral (narrative)* Diagnostic Procedure Only (Urgent) - Closed Specialty Diagnoses / Procedures Referred By Contac t Referred To Contact XR IMAGING Diagnoses Finger pain, right Finger injury, right, initial encounter Procedures XR DIGIT GENERAL 3V FRONTAL/LAT/OBL RIGHT RADEX FINGR MINIMUM 2 VIEWS Becca Titus APRN.MECHANICAL INTERN [address] [place] [address] Xr Imaging Referral ID Status Reason Start Date Expiration Date V isits Requested Visits Authorized [id number] Closed Auto-Generate d Referral 11/02/2022 12/02/2023 1 1 [facility] for referral (narrative)* Outpatient Procedure (Routine) - Authorized Specialty Diagnoses / Procedures Referred By Contac t Referred To Contact [facility] Diagnoses Weakness of both lower extremities Procedures PVR ANK PRESS DANIELLE VAS LAB NON-INVAS PHYSIOLOGIC STD EXTREMITY ART 2 LEVEL Fidelina Rosas APRN.MECHANICAL INTERN [address] [place] [address] [facility] [place] [address] [place] [address] Referral ID Status Reason Start Date Expiration Date Visits Requested Visits Authorized [id number] Authorized Auto-Generat ed Referral 03/01/2023 02/29/2024 1 1 [facility] for referral (narrative)* Diagnostic Procedure Only (Routine) - Authorized Specialty Diagnoses / Procedures Referred By Contac t Referred To Contact US IMAGING Diagnoses Renal lesion Procedures US KIDNEY/BLADDER US RETROPERITONEAL REAL TIME W/IMAGE COMPLETE Fidelina Rosas APRN.MECHANICAL INTERN [address] [place] [address] Us Imaging Referral ID Status Reason Start Date Expiration Date Visits Requested Visits Authorized [id number] Authorized Auto-Generat ed Referral 04/20/2023 05/19/2024 1 1 [facility] for referral (narrative)* - Pending Review Specialty Diagnoses / Procedures Referred By Contac t Referred To Contact Diagnoses Spinal stenosis of lumbar region, unspecified whether neurogenic claudication present Weakness of both lower extremities Procedures CONSULT TO PHYSICAL THERAPY Anika Hernandez, PADanyC [address] [place] [address] Referral ID Status Reason Start Date Expiration Date V isits Requested Visits Authorized [id number] Pending Review 05/25/2023 08/23/2023 1 1 [facility] for referral (narrative)* Diagnostic Procedure Only (Routine) - Closed Specialty Diagnoses / Procedures Referred By Contac t Referred To Contact US IMAGING Diagnoses Renal lesion Procedures US KIDNEY/BLADDER US RETROPERITONEAL REAL TIME W/IMAGE COMPLETE Fidelina Rosas, LUPILLO [address] [place] [address] [place] [address] Referral ID Status Reason Start Date Expiration Date V isits Requested Visits Authorized [id number] Closed Auto-Generate d Referral 04/20/2023 05/19/2024 1 1 [facility] for referral (narrative)* - Pending Review Specialty Diagnoses / Procedures Referred By Contac t Referred To Contact Occupational Therapy Diagnoses Dementia without behavioral disturbance (HCC) Memory loss Procedures CONSULT TO HORSE RACE TIMER Jayda Ace PA-C [address] [place] [address] Referral ID Status Reason Start Date Expiration Date V isits Requested Visits Authorized [id number] Pending Review 12/13/2023 03/12/2024 1 1 * Medication Prior Authorization - Closed Specialty Diagnoses / Procedures Referred By Contac t Referred To Contact Jayda Ace PA-C [address] [place] [address] Referral ID Status Reason Start Date Expiration Date Visits Re quested Visits Authorized [id number] Closed 1 1 [facility] for referral (narrative)* Diagnostic Procedure Only (Urgent) - Closed Specialty Diagnoses / Procedures Referred By Contac t Referred To Contact XR IMAGING Diagnoses Finger pain, right Finger injury, right, initial encounter Procedures XR DIGIT GENERAL 3V FRONTAL/LAT/OBL RIGHT RADEX FINGR MINIMUM 2 VIEWS Becca Titus APRN.MECHANICAL INTERN [address] [place] [address] [place] [address] Referral ID Status Reason Start Date Expiration Date V isits Requested Visits Authorized [id number] Closed Auto-Generate d Referral 11/02/2022 12/02/2023 1 1 [facility] for referral (narrative)* Diagnostic Procedure Only (Routine) - Closed Specialty Diagnoses / Procedures Referred By Contac t Referred To Contact XR IMAGING Diagnoses History of traumatic brain injury Balance problem Procedures XR LUMBAR GENERAL 3V AP/LAT/L5-S1 RADEX SPINE LUMBOSACRAL 2/3 VIEWS Ashley Ewing APRN.MECHANICAL INTERN [address] [place] [address] [place] [address] Referral ID Status Reason Start Date Expiration Date V isits Requested Visits Authorized [id number] Closed Auto-Generate d Referral 06/17/2022 07/17/2023 1 1 [facility] for referral (narrative)* Diagnostic Procedure Only (Urgent) - Closed Specialty Diagnoses / Procedures Referred By Contac t Referred To Contact XR IMAGING Diagnoses Left wrist pain Procedures XR WRIST INJURY 4V PA/LAT/OBL/SCAPH LEFT RADEX WRIST COMPLETE MINIMUM 3 VIEWS Isabella Dasilva APRN.MECHANICAL INTERN [address] [place] [address] [place] [address] Referral ID Status Reason Start Date Expiration Date V isits Requested Visits Authorized [id number] Closed Auto-Generate d Referral 02/08/2022 03/09/2023 1 1 [facility] for referral (narrative)* Diagnostic Procedure Only (Routine) - Authorized Specialty Diagnoses / Procedures Referred By Contac t Referred To Contact XR IMAGING Diagnoses Neck pain Procedures XR CERV OTHER 4V AP/LAT/FLX/EXT RADEX SPINE CERVICAL 4 OR 5 VIEWS Kwadwo Srinivasan MD, PhD [address] [place] [address] [place] [address] Referral ID Status Reason Start Date Expiration Date Visits Requested Visits Authorized [id number] Authorized Auto-Generat ed Referral 09/14/2025 1 1 [facility] for referral (narrative)No reason for referral information [facility]WM[facility]: Reason for visit Narrative* Diagnostic Procedure Only (Urgent) - Closed Specialty Diagnoses / Procedures Referred By Contac t Referred To Contact XR IMAGING Diagnoses Finger pain, right Finger injury, right, initial encounter Procedures XR DIGIT GENERAL 3V FRONTAL/LAT/OBL RIGHT RADEX FINGR MINIMUM 2 VIEWS Becca Titus, TEA LEAF READER.MECHANICAL INTERN [address] [place] [address] [place] [address] Referral ID Status Reason Start Date Expiration Date V isits Requested Visits Authorized [id number] Closed Auto-Generate d Referral 11/02/2022 12/02/2023 1 1 [facility] for visit Narrative* Diagnostic Procedure Only (Routine) - Closed Specialty Diagnoses / Procedures Referred By Contac t Referred To Contact XR IMAGING Diagnoses History of traumatic brain injury Balance problem Procedures XR LUMBAR GENERAL 3V AP/LAT/L5-S1 RADEX SPINE LUMBOSACRAL 2/3 VIEWS Ashley Ewing, TEA LEAF READER.MECHANICAL INTERN [address] [place] [address] [place] [address] Referral ID Status Reason Start Date Expiration Date V isits Requested Visits Authorized [id number] Closed Auto-Generate d Referral 06/17/2022 07/17/2023 1 1 [facility] for visit Narrative* Diagnostic Procedure Only (Urgent) - Closed Specialty Diagnoses / Procedures Referred By Contac t Referred To Contact XR IMAGING Diagnoses Left wrist pain Procedures XR WRIST INJURY 4V PA/LAT/OBL/SCAPH LEFT RADEX WRIST COMPLETE MINIMUM 3 VIEWS Isabella Dasilva TEA LEAF READER.MECHANICAL INTERN [address] [place] [address] [place] [address] Referral ID Status Reason Start Date Expiration Date V isits Requested Visits Authorized [id number] Closed Auto-Generate d Referral 02/08/2022 03/09/2023 1 1 [facility] for visit Narrative* Diagnostic Procedure Only (Routine) - Closed Specialty Diagnoses / Procedures Referred By Contac t Referred To Contact Radiology / [facility] Diagnoses Unspecified injury of right wrist, hand and finger(s), initial encounter Hand injuries, right, initial encounter [[id number] room 6 Procedures X-RAY HAND MINIMUM 3 VIEWS XR GENERAL 7 Deepak Reyna APRN.MECHANICAL INTERN [address] [place] [address] [facility] [address] [place] [address] Referral ID Status Reason Start Date Expiration Date Visits Re quested Visits Authorized [id number] Closed 05/04/2021 10/16/2021 1 0 [facility] for visit Narrative* Diagnostic Procedure Only (Routine) - Closed Specialty Diagnoses / Procedures Referred By Contac t Referred To Contact XR IMAGING Diagnoses Neck pain Procedures XR CERV OTHER 4V AP/LAT/FLX/EXT RADEX SPINE CERVICAL 4 OR 5 VIEWS Kwadwo Srinivasan MD, PhD [address] [facility] [place] [address] [place] [address] Referral ID Status Reason Start Date Expiration Date V isits Requested Visits Authorized [id number] Closed Auto-Generate d Referral 08/15/2024 09/14/2025 1 1 [facility] for visit Narrative* Auth/Cert (Routine) Specialty Diagnoses / Procedures Referred By Contac t Referred To Contact [facility] [address] [place] [address] Phone: tel: Referral ID Status Reason Start Date Expiration Date Visits Re quested Visits Authorized [id number] 1 1 [facility] Advance Directives No Advanced Directives Records FoundDocuments on File Type Date Recorded Patient Contact Center Consultant Expl anation Advance Directive(s) 08/18/2021 7:55 AM Documents on File Type Date Recorded Patient Contact Center Consultant Expl anation Advance Directive(s) 08/18/2021 7:55 AM Advance Directive Response Recorded Date/ Time Living Will Yes August 26, 020 4:41pm Power of Contact Center Associate Yes August 26, 2020 4:41pm Advance Directive Response Recorded Date/ Time Living Will Yes August 26 020 3:41pm Power of Contact Center Associate Yes August 26, 2020 3:41pm Advance Directive Response Recorded Date/ Time Name of Medical Power of Contact Center Associate chalo August 11, 2023 12:21am Living Will Yes August 11 12:21am Power of Contact Center Associate Yes August 11, 2023 12:21am Documents on File Type Date Recorded Patient Contact Center Consultant Expl anation Advance Directive(s) 10/04/2023 7:19 AM Advance Directive Response Recorded Date/ Time Name of Medical Power of Contact Center Associate chalo August 10, 2023 11:21pm Living Will Yes August 10 11:21pm Power of Contact Center Associate Yes August 10, 2023 11:21pm Documents on File Type Date Recorded Patient Contact Center Consultant Expl anation Advance Directive(s) 10/04/2023 7:19 AM Date Activated Date Inactivated Comments 03/25/2025 10:39 AM Date Activated Date Inactivated Comments 03/25/2025 10:39 AM Advance Directive Response Recorded Date/ Time Do you have a Healthcare Power of Contact Center Associate? Yes April 24, 2025 5:38am Date Activated Date Inactivated Comments 03/25/2025 10:39 AM 04/24/2025 8:01 AM Date Activated Date Inactivated Comments 04/25/2025 9:17 AM Question Answer Comments Full Code Order Discussed With: Patient and Surr ogate Decision Maker Date Activated Date Inactivated Comments 03/25/2025 10:39 AM 04/24/2025 8:01 AM Date Activated Date Inactivated Comments 04/25/2025 9:17 AM Question Answer Comments Full Code Order Discussed With: Patient and Surr ogate Decision Maker Date Activated Date Inactivated Comments 03/25/2025 10:39 AM 04/24/2025 8:01 AM Date Activated Date Inactivated Comments 04/25/2025 9:17 AM 05/01/2025 4:12 PM Date Activated Date Inactivated Comments 04/25/2025 9:17 AM 05/01/2025 4:12 PM Reason for Referral Specialty Diagnoses / Procedures Referred By Contac t Referred To Contact Ashley Ewing, TEA LEAF READER.MECHANICAL INTERN [address] [place] [address] Referral ID Status Reason Start Date Expiration Date Visits Re quested Visits Authorized [id number] Closed 1 1 Specialty Diagnoses / Procedures Referred By Contac t Referred To Contact [facility] Diagnoses DDD (degenerative disc disease), lumbar Procedures CONSULT TO PHYSICAL THERAPY PHYSICAL THERAPY EVALUATION HIGH COMPLEX 45 MINS Yanet Adams MD [address] [place] [address] [facility] [address] [address] Referral ID Status Reason Start Date Expiration Date Visits Requested Visits Authorized [id number] Pending Review Auto-Generat ed Referral 06/24/2022 06/24/2023 1 1 Specialty Diagnoses / Procedures Referred By Contac t Referred To Contact Jayda Ace PA-C [address] [place] [address] Referral ID Status Reason Start Date Expiration Date Visits Re quested Visits Authorized [id number] Closed 1 1 Specialty Diagnoses / Procedures Referred By Contac t Referred To Contact MR IMAGING Diagnoses Spinal stenosis of lumbar region, unspecified whether neurogenic claudication present Procedures MRI LUMBAR SPINE WO IVCON MRI SPINAL CANAL LUMBAR W/O CONTRAST MATERIAL Ashley Ewing, SLOAN.MECHANICAL INTERN [address] [place] [address] Mr Imaging Referral ID Status Reason Start Date Expiration Date Visits Requested Visits Authorized [id number] Authorized Auto-Generat ed Referral 04/06/2023 05/05/2024 1 [...] EA EXTREMITY W/PARASPINL AREA LIMITED Ashley Ewing, TEA LEAF READER.MECHANICAL INTERN [address] [place] [address] [facility] [place] [address] [place] [address] Referral ID Status Reason Start Date Expiration Date Visits Requested Visits Authorized [id number] Authorized Auto-Generat ed Referral 04/06/2023 10/16/2023 1 1 Specialty Diagnoses / Procedures Referred By Contac t Referred To Contact [facility] [place] Diagnoses Spinal stenosis of lumbar region, unspecified whether neurogenic claudication present Weakness of both lower extremities Procedures CONSULT TO [facility] OFFICE/OUTPATIENT [facility] 60-74 MINUTES Ashley Ewing, SLOAN.MECHANICAL INTERN [address] [place] [address] Referral ID Status Reason Start Date Expiration Date Visits Requested Visits Authorized [id number] Pending Review PCP Requested Referral 04/13/2023 04/12/2024 1 1 Specialty Diagnoses / Procedures Referred By Contac t Referred To Contact Ashley Ewing, SLOAN.MECHANICAL INTERN [address] [place] [address] Referral ID Status Reason Start Date Expiration Date Visits Re quested Visits Authorized [id number] Closed 1 1 Specialty Diagnoses / Procedures Referred By Contac t Referred To Contact MR IMAGING Diagnoses Spinal stenosis of cervical region Procedures MRI CERVICAL SPINE WO IVCON MRI SPINAL CANAL CERVICAL W/O CONTRAST Melanie Waldron PA-C [address] [place] [address] [place] [address] Referral ID Status Reason Start Date Expiration Date Visits Requested Visits Authorized [id number] Pending Review Auto-Generat ed Referral 3 09/10/2024 1 1 Specialty Diagnoses / Procedures Referred By Contac t Referred To Contact CT IMAGING Diagnoses SAH (subarachnoid hemorrhage) (HCC) Procedures CT BRAIN WO IVCON CT HEAD/BRAIN W/O CONTRAST MATERIAL Melanie Chung PA-C [address] [place] [address] [place] [address] Referral ID Status Reason Start Date Expiration Date Visits Requested Visits Authorized [id number] Pending Review Auto-Generat ed Referral 3 09/10/2024 1 1 Specialty Diagnoses / Procedures Referred By Contac t Referred To Contact CT IMAGING Diagnoses Lung nodules Procedures CT CHEST WO IVCON DIAGNOSTIC COMPUTED TOMOGRAPHY THORAX W/O CNTRST Fidelina Rosas, SLOAN.MECHANICAL INTERN [address] [place] [address] [place] [address] Referral ID Status Reason Start Date Expiration Date V isits Requested Visits Authorized [id number] Closed Auto-Generate d Referral 03/04/2023 04/02/2024 1 1 Specialty Diagnoses / Procedures Referred By Contac t Referred To Contact CT IMAGING Diagnoses Subarachnoid hemorrhage (HCC) Procedures CT BRAIN WO IVCON CT HEAD/BRAIN W/O CONTRAST MATERIAL Kwadwo Srinivasan MD, PhD [address] [place] [address] [place] [address] Referral ID Status Reason Start Date Expiration Date V isits Requested Visits Authorized [id number] Closed Auto-Generate d Referral 09/12/2023 10/11/2024 1 1 Specialty Diagnoses / Procedures Referred By Contac t Referred To Contact [facility] Diagnoses Balance problem Frequent falls Cervical stenosis of spinal canal Procedures CONSULT TO PHYSICAL THERAPY PHYSICAL THERAPY EVALUATION HIGH COMPLEX 45 MINS Jayda Ace PA-C [address] [place] [address] [facility] [place] [address] [place] [address] Referral ID Status Reason Start Date Expiration Date Visits Requested Visits Authorized [id number] Pending Review Auto-Generat ed Referral 4 08/07/2025 1 1 Specialty Diagnoses / Procedures Referred By Debbie t Referred To Contact Diagnoses Ataxia, unspecified Personal history of traumatic brain injury Mild cognitive impairment Procedures CONSULT TO PALLIATIVE CARE OFFICE/OUTPATIENT [facility] 60 MINUTES Yanet Adams MD [address] [place] [address] Referral ID Status Reason Start Date Expiration Date Visits Requested Visits Authorized [id number] Authorized PCP Requested Referral 4 09/27/2025 1 1 Chief Complaint and Reason for Visit Chief Complaint TBI/RX HERE Chief Complaint TBI/RX HERE DDD RX HERE Chief Complaint SPINAL STENOSIS OF L UMBAR. RX HERE Chief Complaint SPINAL STENOSIS OF L UMBAR. RX HERE fall , head injury Chief Complaint SPINAL STENOSIS OF L UMBAR. RX HERE fall , head injury GAIT RX HERE Chief Complaint Admit Date DR TO FAX February 20, 2025 12:45p m ABNORMAL LUNG SOUNDS February 28, 2025 9:07 am Chief Complaint Admit Date DR TO FAX February 20, 2025 12:45p m ABNORMAL LUNG SOUNDS February 28, 2025 9:07 am lac April 24, 2025 5:31a m Chief Complaint Admit Date TO FAX February 20, 2025 12:45p m ABNORMAL LUNG SOUNDS February 28, 2025 9:07 am lac April 24, 2025 5:31a m LAB WORK May 02, 2025 5:00 am LAB WORK May 07, 2025 5:00 am Admission exam H&P May 07, 2025 12:1 5pm LAB WORK May 14, 2025 6:20 am Chief Complaint Admit Date DR TO FAX February 20, 2025 12:45p m ABNORMAL LUNG SOUNDS February 28, 2025 9:07 am lac April 24, 2025 5:31a m Admission Exam H&P May 01, 2025 4:29 pm LAB WORK May 02, 2025 5:00 am LAB WORK May 07, 2025 5:00 am Admission exam H&P May 07, 2025 12:1 5pm LAB WORK May 14, 2025 6:20 am Chief Complaint Admit Date DR TO FAX February 20, 2025 12:45p m ABNORMAL LUNG SOUNDS February 28, 2025 9:07 am lac April 24, 2025 5:31a m Admission Exam H&P May 01, 2025 4:29 pm LAB WORK May 02, 2025 5:00 am Admission exam H&P May 04, 2025 4:19 pm LAB WORK May 07, 2025 5:00 am Admission exam H&P May 07, 2025 12:1 5pm LAB WORK May 14, 2025 6:20 am Family History No Family History Records Found Relationship Condition Age at Onset Recorded Date/T nikki Unknown Family History?No pe rtinent history Unknown July 25, 2018 2:56pm Family History?No pe rtinent history Unknown July 25, 2018 2:56pm Relationship Condition Age at Onset Recorded Date/T nikki Unknown Family History?No pe rtinent history Unknown July 25, 2018 1:56pm Family History?No pe rtinent history Unknown July 25, 2018 1:56pm Summary Purpose Additional Source Comments Source Comments (unrecognize d section and content) In the event this informatio n is protected by the Federal Confidentiality of Alcohol and Drug Abuse Patient Records regulations: The Federal rules restrict any use of the information to criminally investigate or prosecute any alcohol or drug abuse patient.[facility] the event this information is protected by the Federal Confidentiality of Alcohol and Drug Abuse Patient Records regulations: The Federal rules restrict any use of the information to criminally investigate or prosecute any alcohol or drug abuse patient.[facility] the event this information is protected by the Federal Confidentiality of Alcohol and Drug Abuse Patient Records regulations: The Federal rules restrict any use of the information to criminally investigate or prosecute any alcohol or drug abuse patient.[facility] the event this information is protected by the Federal Confidentiality of Alcohol and Drug Abuse Patient Records regulations: The Federal rules restrict any use of the information to criminally investigate or prosecute any alcohol or drug abuse patient.[facility] the event this information is protected by the Federal Confidentiality of Alcohol and Drug Abuse Patient Records regulations: The Federal rules restrict any use of the information to criminally investigate or prosecute any alcohol or drug abuse patient.[facility] the event this information is protected by the Federal Confidentiality of Alcohol and Drug Abuse Patient Records regulations: The Federal rules restrict any use of the information to criminally investigate or prosecute any alcohol or drug abuse patient.[facility] the event this information is protected by the Federal Confidentiality of Alcohol and Drug Abuse Patient Records regulations: The Federal rules restrict any use of the information to criminally investigate or prosecute any alcohol or drug abuse patient.[facility] the event this information is protected by the Federal Confidentiality of Alcohol and Drug Abuse Patient Records regulations: The Federal rules restrict any use of the information to criminally investigate or prosecute any alcohol or drug abuse patient.[facility] the event this information is protected by the Federal Confidentiality of Alcohol and Drug Abuse Patient Records regulations: The Federal rules restrict any use of the information to criminally investigate or prosecute any alcohol or drug abuse patient.[facility]In the event this information is protected by the Federal Confidentiality of Alcohol and Drug Abuse Patient Records regulations: The Federal rules restrict any use of the information to criminally investigate or prosecute any alcohol or drug abuse patient.[facility] [place]In the event this information is protected by the Federal Confidentiality of Alcohol and Drug Abuse Patient Records regulations: The Federal rules restrict any use of the information to criminally investigate or prosecute any alcohol or drug abuse patient.[facility] [place]In the event this information is protected by the Federal Confidentiality of Alcohol and Drug Abuse Patient Records regulations: The Federal rules restrict any use of the information to criminally investigate or prosecute any alcohol or drug abuse patient.[facility] [place]In the event this information is protected by the Federal Confidentiality of Alcohol and Drug Abuse Patient Records regulations: The Federal rules restrict any use of the information to criminally investigate or prosecute any alcohol or drug abuse patient.[facility] [place]In the event this information is protected by the Federal Confidentiality of Alcohol and Drug Abuse Patient Records regulations: The Federal rules restrict any use of the information to criminally investigate or prosecute any alcohol or drug abuse patient.[facility] [place]In the event this information is protected by the Federal Confidentiality of Alcohol and Drug Abuse Patient Records regulations: The Federal rules restrict any use of the information to criminally investigate or prosecute any alcohol or drug abuse patient.[facility] [place]In the event this information is protected by the Federal Confidentiality of Alcohol and Drug Abuse Patient Records regulations: The Federal rules restrict any use of the information to criminally investigate or prosecute any alcohol or drug abuse patient.[facility] [place]In the event this information is protected by the Federal Confidentiality of Alcohol and Drug Abuse Patient Records regulations: The Federal rules restrict any use of the information to criminally investigate or prosecute any alcohol or drug abuse patient.[facility] [place]In the event this information is protected by the Federal Confidentiality of Alcohol and Drug Abuse Patient Records regulations: The Federal rules restrict any use of the information to criminally investigate or prosecute any alcohol or drug abuse patient.[facility] [place]In the event this information is protected by the Federal Confidentiality of Alcohol and Drug Abuse Patient Records regulations: The Federal rules restrict any use of the information to criminally investigate or prosecute any alcohol or drug abuse patient.[facility] [place]In the event this information is protected by the Federal Confidentiality of Alcohol and Drug Abuse Patient Records regulations: The Federal rules restrict any use of the information to criminally investigate or prosecute any alcohol or drug abuse patient.[facility] [place]In the event this information is protected by the Federal Confidentiality of Alcohol and Drug Abuse Patient Records regulations: The Federal rules restrict any use of the information to criminally investigate or prosecute any alcohol or drug abuse patient.[facility] [place]In the event this information is protected by the Federal Confidentiality of Alcohol and Drug Abuse Patient Records regulations: The Federal rules restrict any use of the information to criminally investigate or prosecute any alcohol or drug abuse patient.[facility] [place]In the event this information is protected by the Federal Confidentiality of Alcohol and Drug Abuse Patient Records regulations: The Federal rules restrict any use of the information to criminally investigate or prosecute any alcohol or drug abuse patient.[facility] [place]In the event this information is protected by the Federal Confidentiality of Alcohol and Drug Abuse Patient Records regulations: The Federal rules restrict any use of the information to criminally investigate or prosecute any alcohol or drug abuse patient.[facility] [place]In the event this information is protected by the Federal Confidentiality of Alcohol and Drug Abuse Patient Records regulations: The Federal rules restrict any use of the information to criminally investigate or prosecute any alcohol or drug abuse patient.[facility] [place]In the event this information is protected by the Federal Confidentiality of Alcohol and Drug Abuse Patient Records regulations: The Federal rules restrict any use of the information to criminally investigate or prosecute any alcohol or drug abuse patient.[facility] [place]In the event this information is protected by the Federal Confidentiality of Alcohol and Drug Abuse Patient Records regulations: The Federal rules restrict any use of the information to criminally investigate or prosecute any alcohol or drug abuse patient.[facility] [place]In the event this information is protected by the Federal Confidentiality of Alcohol and Drug Abuse Patient Records regulations: The Federal rules restrict any use of the information to criminally investigate or prosecute any alcohol or drug abuse patient.[facility] [place]In the event this information is protected by the Federal Confidentiality of Alcohol and Drug Abuse Patient Records regulations: The Federal rules restrict any use of the information to criminally investigate or prosecute any alcohol or drug abuse patient.[facility] [place]In the event this information is protected by the Federal Confidentiality of Alcohol and Drug Abuse Patient Records regulations: The Federal rules restrict any use of the information to criminally investigate or prosecute any alcohol or drug abuse patient.[facility] [place]In the event this information is protected by the Federal Confidentiality of Alcohol and Drug Abuse Patient Records regulations: The Federal rules restrict any use of the information to criminally investigate or prosecute any alcohol or drug abuse patient.[facility] [place]In the event this information is protected by the Federal Confidentiality of Alcohol and Drug Abuse Patient Records regulations: The Federal rules restrict any use of the information to criminally investigate or prosecute any alcohol or drug abuse patient.[facility] [place]In the event this information is protected by the Federal Confidentiality of Alcohol and Drug Abuse Patient Records regulations: The Federal rules restrict any use of the information to criminally investigate or prosecute any alcohol or drug abuse patient.[facility] [place]In the event this information is protected by the Federal Confidentiality of Alcohol and Drug Abuse Patient Records regulations: The Federal rules restrict any use of the information to criminally investigate or prosecute any alcohol or drug abuse patient.[facility] [place]In the event this information is protected by the Federal Confidentiality of Alcohol and Drug Abuse Patient Records regulations: The Federal rules restrict any use of the information to criminally investigate or prosecute any alcohol or drug abuse patient.[facility] [place]In the event this information is protected by the Federal Confidentiality of Alcohol and Drug Abuse Patient Records regulations: The Federal rules restrict any use of the information to criminally investigate or prosecute any alcohol or drug abuse patient.[facility] [place]In the event this information is protected by the Federal Confidentiality of Alcohol and Drug Abuse Patient Records regulations: The Federal rules restrict any use of the information to criminally investigate or prosecute any alcohol or drug abuse patient.[facility] [place]In the event this information is protected by the Federal Confidentiality of Alcohol and Drug Abuse Patient Records regulations: The Federal rules restrict any use of the information to criminally investigate or prosecute any alcohol or drug abuse patient.[facility] [place]In the event this information is protected by the Federal Confidentiality of Alcohol and Drug Abuse Patient Records regulations: The Federal rules restrict any use of the information to criminally investigate or prosecute any alcohol or drug abuse patient.[facility] [place]In the event this information is protected by the Federal Confidentiality of Alcohol and Drug Abuse Patient Records regulations: The Federal rules restrict any use of the information to criminally investigate or prosecute any alcohol or drug abuse patient.[facility] [place]In the event this information is protected by the Federal Confidentiality of Alcohol and Drug Abuse Patient Records regulations: The Federal rules restrict any use of the information to criminally investigate or prosecute any alcohol or drug abuse patient.[facility] [place]In the event this information is protected by the Federal Confidentiality of Alcohol and Drug Abuse Patient Records regulations: The Federal rules restrict any use of the information to criminally investigate or prosecute any alcohol or drug abuse patient.[facility] [place]In the event this information is protected by the Federal Confidentiality of Alcohol and Drug Abuse Patient Records regulations: The Federal rules restrict any use of the information to criminally investigate or prosecute any alcohol or drug abuse patient.[facility] [place]In the event this information is protected by the Federal Confidentiality of Alcohol and Drug Abuse Patient Records regulations: The Federal rules restrict any use of the information to criminally investigate or prosecute any alcohol or drug abuse patient.[facility] [place]In the event this information is protected by the Federal Confidentiality of Alcohol and Drug Abuse Patient Records regulations: The Federal rules restrict any use of the information to criminally investigate or prosecute any alcohol or drug abuse patient.[facility] [place]In the event this information is protected by the Federal Confidentiality of Alcohol and Drug Abuse Patient Records regulations: The Federal rules restrict any use of the information to criminally investigate or prosecute any alcohol or drug abuse patient.[facility] [place]In the event this information is protected by the Federal Confidentiality of Alcohol and Drug Abuse Patient Records regulations: The Federal rules restrict any use of the information to criminally investigate or prosecute any alcohol or drug abuse patient.[facility] [place]In the event this information is protected by the Federal Confidentiality of Alcohol and Drug Abuse Patient Records regulations: The Federal rules restrict any use of the information to criminally investigate or prosecute any alcohol or drug abuse patient.[facility] [place]In the event this information is protected by the Federal Confidentiality of Alcohol and Drug Abuse Patient Records regulations: The Federal rules restrict any use of the information to criminally investigate or prosecute any alcohol or drug abuse patient.[facility] [place]In the event this information is protected by the Federal Confidentiality of Alcohol and Drug Abuse Patient Records regulations: The Federal rules restrict any use of the information to criminally investigate or prosecute any alcohol or drug abuse patient.[facility] [place]In the event this information is protected by the Federal Confidentiality of Alcohol and Drug Abuse Patient Records regulations: The Federal rules restrict any use of the information to criminally investigate or prosecute any alcohol or drug abuse patient.[facility] [place]In the event this information is protected by the Federal Confidentiality of Alcohol and Drug Abuse Patient Records regulations: The Federal rules restrict any use of the information to criminally investigate or prosecute any alcohol or drug abuse patient.[facility] [place]In the event this information is protected by the Federal Confidentiality of Alcohol and Drug Abuse Patient Records regulations: The Federal rules restrict any use of the information to criminally investigate or prosecute any alcohol or drug abuse patient.[facility] [place]In the event this information is protected by the Federal Confidentiality of Alcohol and Drug Abuse Patient Records regulations: The Federal rules restrict any use of the information to criminally investigate or prosecute any alcohol or drug abuse patient.[facility] [place]In the event this information is protected by the Federal Confidentiality of Alcohol and Drug Abuse Patient Records regulations: The Federal rules restrict any use of the information to criminally investigate or prosecute any alcohol or drug abuse patient.[facility] [place]In the event this information is protected by the Federal Confidentiality of Alcohol and Drug Abuse Patient Records regulations: The Federal rules restrict any use of the information to criminally investigate or prosecute any alcohol or drug abuse patient.[facility] [place]In the event this information is protected by the Federal Confidentiality of Alcohol and Drug Abuse Patient Records regulations: The Federal rules restrict any use of the information to criminally investigate or prosecute any alcohol or drug abuse patient.[facility] [place]In the event this information is protected by the Federal Confidentiality of Alcohol and Drug Abuse Patient Records regulations: The Federal rules restrict any use of the information to criminally investigate or prosecute any alcohol or drug abuse patient.[facility] [place]In the event this information is protected by the Federal Confidentiality of Alcohol and Drug Abuse Patient Records regulations: The Federal rules restrict any use of the information to criminally investigate or prosecute any alcohol or drug abuse patient.[facility] [place]In the event this information is protected by the Federal Confidentiality of Alcohol and Drug Abuse Patient Records regulations: The Federal rules restrict any use of the information to criminally investigate or prosecute any alcohol or drug abuse patient.[facility] [place]In the event this information is protected by the Federal Confidentiality of Alcohol and Drug Abuse Patient Records regulations: The Federal rules restrict any use of the information to criminally investigate or prosecute any alcohol or drug abuse patient.[facility] [place]In the event this information is protected by the Federal Confidentiality of Alcohol and Drug Abuse Patient Records regulations: The Federal rules restrict any use of the information to criminally investigate or prosecute any alcohol or drug abuse patient.[facility] [place]In the event this information is protected by the Federal Confidentiality of Alcohol and Drug Abuse Patient Records regulations: The Federal rules restrict any use of the information to criminally investigate or prosecute any alcohol or drug abuse patient.[facility] [place]In the event this information is protected by the Federal Confidentiality of Alcohol and Drug Abuse Patient Records regulations: The Federal rules restrict any use of the information to criminally investigate or prosecute any alcohol or drug abuse patient.[facility] [place]In the event this information is protected by the Federal Confidentiality of Alcohol and Drug Abuse Patient Records regulations: The Federal rules restrict any use of the information to criminally investigate or prosecute any alcohol or drug abuse patient.[facility] [place]In the event this information is protected by the Federal Confidentiality of Alcohol and Drug Abuse Patient Records regulations: The Federal rules restrict any use of the information to criminally investigate or prosecute any alcohol or drug abuse patient.[facility] [place]In the event this information is protected by the Federal Confidentiality of Alcohol and Drug Abuse Patient Records regulations: The Federal rules restrict any use of the information to criminally investigate or prosecute any alcohol or drug abuse patient.[facility] [place]In the event this information is protected by the Federal Confidentiality of Alcohol and Drug Abuse Patient Records regulations: The Federal rules restrict any use of the information to criminally investigate or prosecute any alcohol or drug abuse patient.[facility] [place]In the event this information is protected by the Federal Confidentiality of Alcohol and Drug Abuse Patient Records regulations: The Federal rules restrict any use of the information to criminally investigate or prosecute any alcohol or drug abuse patient.[facility] [place]In the event this information is protected by the Federal Confidentiality of Alcohol and Drug Abuse Patient Records regulations: The Federal rules restrict any use of the information to criminally investigate or prosecute any alcohol or drug abuse patient.[facility] [place]In the event this information is protected by the Federal Confidentiality of Alcohol and Drug Abuse Patient Records regulations: The Federal rules restrict any use of the information to criminally investigate or prosecute any alcohol or drug abuse patient.[facility] [place]In the event this information is protected by the Federal Confidentiality of Alcohol and Drug Abuse Patient Records regulations: The Federal rules restrict any use of the information to criminally investigate or prosecute any alcohol or drug abuse patient.[facility] [place]In the event this information is protected by the Federal Confidentiality of Alcohol and Drug Abuse Patient Records regulations: The Federal rules restrict any use of the information to criminally investigate or prosecute any alcohol or drug abuse patient.[facility] [place]In the event this information is protected by the Federal Confidentiality of Alcohol and Drug Abuse Patient Records regulations: The Federal rules restrict any use of the information to criminally investigate or prosecute any alcohol or drug abuse patient.[facility] [place]In the event this information is protected by the Federal Confidentiality of Alcohol and Drug Abuse Patient Records regulations: The Federal rules restrict any use of the information to criminally investigate or prosecute any alcohol or drug abuse patient.[facility] [place]In the event this information is protected by the Federal Confidentiality of Alcohol and Drug Abuse Patient Records regulations: The Federal rules restrict any use of the information to criminally investigate or prosecute any alcohol or drug abuse patient.[facility] [place]In the event this information is protected by the Federal Confidentiality of Alcohol and Drug Abuse Patient Records regulations: The Federal rules restrict any use of the information to criminally investigate or prosecute any alcohol or drug abuse patient.[facility] [place]In the event this information is protected by the Federal Confidentiality of Alcohol and Drug Abuse Patient Records regulations: The Federal rules restrict any use of the information to criminally investigate or prosecute any alcohol or drug abuse patient.[facility] [place]In the event this information is protected by the Federal Confidentiality of Alcohol and Drug Abuse Patient Records regulations: The Federal rules restrict any use of the information to criminally investigate or prosecute any alcohol or drug abuse patient.[facility] [place]In the event this information is protected by the Federal Confidentiality of Alcohol and Drug Abuse Patient Records regulations: The Federal rules restrict any use of the information to criminally investigate or prosecute any alcohol or drug abuse patient.[facility] [place]In the event this information is protected by the Federal Confidentiality of Alcohol and Drug Abuse Patient Records regulations: The Federal rules restrict any use of the information to criminally investigate or prosecute any alcohol or drug abuse patient.[facility] [place]In the event this information is protected by the Federal Confidentiality of Alcohol and Drug Abuse Patient Records regulations: The Federal rules restrict any use of the information to criminally investigate or prosecute any alcohol or drug abuse patient.[facility] [place]In the event this information is protected by the Federal Confidentiality of Alcohol and Drug Abuse Patient Records regulations: The Federal rules restrict any use of the information to criminally investigate or prosecute any alcohol or drug abuse patient.[facility] [place]In the event this information is protected by the Federal Confidentiality of Alcohol and Drug Abuse Patient Records regulations: The Federal rules restrict any use of the information to criminally investigate or prosecute any alcohol or drug abuse patient.[facility] [place]In the event this information is protected by the Federal Confidentiality of Alcohol and Drug Abuse Patient Records regulations: The Federal rules restrict any use of the information to criminally investigate or prosecute any alcohol or drug abuse patient.[facility] [place]In the event this information is protected by the Federal Confidentiality of Alcohol and Drug Abuse Patient Records regulations: The Federal rules restrict any use of the information to criminally investigate or prosecute any alcohol or drug abuse patient.[facility] [place]In the event this information is protected by the Federal Confidentiality of Alcohol and Drug Abuse Patient Records regulations: The Federal rules restrict any use of the information to criminally investigate or prosecute any alcohol or drug abuse patient.[facility] [place]In the event this information is protected by the Federal Confidentiality of Alcohol and Drug Abuse Patient Records regulations: The Federal rules restrict any use of the information to criminally investigate or prosecute any alcohol or drug abuse patient.[facility] [place]In the event this information is protected by the Federal Confidentiality of Alcohol and Drug Abuse Patient Records regulations: The Federal rules restrict any use of the information to criminally investigate or prosecute any alcohol or drug abuse patient.[facility] [place]ronIn the event this information is protected by the Federal Confidentiality of Alcohol and Drug Abuse Patient Records regulations: The Federal rules restrict any use of the information to criminally investigate or prosecute any alcohol or drug abuse patient.[facility]ronIn the event this information is protected by the Federal Confidentiality of Alcohol and Drug Abuse Patient Records regulations: The Federal rules restrict any use of the information to criminally investigate or prosecute any alcohol or drug abuse patient.[facility]ronIn the event this information is protected by the Federal Confidentiality of Alcohol and Drug Abuse Patient Records regulations: The Federal rules restrict any use of the information to criminally investigate or prosecute any alcohol or drug abuse patient.[facility]ronIn the event this information is protected by the Federal Confidentiality of Alcohol and Drug Abuse Patient Records regulations: The Federal rules restrict any use of the information to criminally investigate or prosecute any alcohol or drug abuse patient.[facility]ronIn the event this information is protected by the Federal Confidentiality of Alcohol and Drug Abuse Patient Records regulations: The Federal rules restrict any use of the information to criminally investigate or prosecute any alcohol or drug abuse patient.[facility]ronIn the event this information is protected by the Federal Confidentiality of Alcohol and Drug Abuse Patient Records regulations: The Federal rules restrict any use of the information to criminally investigate or prosecute any alcohol or drug abuse patient.[facility]ronIn the event this information is protected by the Federal Confidentiality of Alcohol and Drug Abuse Patient Records regulations: The Federal rules restrict any use of the information to criminally investigate or prosecute any alcohol or drug abuse patient.[facility]ronIn the event this information is protected by the Federal Confidentiality of Alcohol and Drug Abuse Patient Records regulations: The Federal rules restrict any use of the information to criminally investigate or prosecute any alcohol or drug abuse patient.[facility]ronIn the event this information is protected by the Federal Confidentiality of Alcohol and Drug Abuse Patient Records regulations: The Federal rules restrict any use of the information to criminally investigate or prosecute any alcohol or drug abuse patient.[facility]ronIn the event this information is protected by the Federal Confidentiality of Alcohol and Drug Abuse Patient Records regulations: The Federal rules restrict any use of the information to criminally investigate or prosecute any alcohol or drug abuse patient.[facility]ronIn the event this information is protected by the Federal Confidentiality of Alcohol and Drug Abuse Patient Records regulations: The Federal rules restrict any use of the information to criminally investigate or prosecute any alcohol or drug abuse patient.[facility]ronIn the event this information is protected by the Federal Confidentiality of Alcohol and Drug Abuse Patient Records regulations: The Federal rules restrict any use of the information to criminally investigate or prosecute any alcohol or drug abuse patient.[facility]ronIn the event this information is protected by the Federal Confidentiality of Alcohol and Drug Abuse Patient Records regulations: The Federal rules restrict any use of the information to criminally investigate or prosecute any alcohol or drug abuse patient.[facility]ronIn the event this information is protected by the Federal Confidentiality of Alcohol and Drug Abuse Patient Records regulations: The Federal rules restrict any use of the information to criminally investigate or prosecute any alcohol or drug abuse patient.[facility]ronIn the event this information is protected by the Federal Confidentiality of Alcohol and Drug Abuse Patient Records regulations: The Federal rules restrict any use of the information to criminally investigate or prosecute any alcohol or drug abuse patient.[facility]ronIn the event this information is protected by the Federal Confidentiality of Alcohol and Drug Abuse Patient Records regulations: The Federal rules restrict any use of the information to criminally investigate or prosecute any alcohol or drug abuse patient.[facility]ronIn the event this information is protected by the Federal Confidentiality of Alcohol and Drug Abuse Patient Records regulations: The Federal rules restrict any use of the information to criminally investigate or prosecute any alcohol or drug abuse patient.[facility]ronIn the event this information is protected by the Federal Confidentiality of Alcohol and Drug Abuse Patient Records regulations: The Federal rules restrict any use of the information to criminally investigate or prosecute any alcohol or drug abuse patient.[facility] Reason for Visit (unrecogniz ed section and content) Reason Comments OT EVAL OT Discharge Specialty Diagnoses / Procedures Referred By Contac t Referred To Contact [facility] Diagnoses Dementia without behavioral disturbance (HCC) Memory loss Procedures CONSULT TO HORSE RACE TIMER OCCUPATIONAL THERAPY EVAL HIGH COMPLEX 60 MINS Jayda Ace PA-C [address] [place] [address] Phone: tel: fax: [facility] [address] [place] [address] Referral ID Status Reason Start Date Expiration Date Visits Requested Visits Authorized [id number] Authorized Auto-Generat ed Referral 01/08/2025 10/16/2025 99 99 Reason Comments Mass top of left arm x 24 hours, some pain twisted while using drill Reason Comments Results Reason Comments requesting medication Reason Comments New Patient Balance & memory iss ues; 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 Specialty Diagnoses / Procedures Referred By Contac t Referred To Contact Neurology Diagnoses History of traumatic brain injury Procedures CONSULT TO NEUROLOGY OFFICE/OUTPATIENT [facility] 60-74 MINUTES Yanet Adams MD [address] [place] [address] Referral ID Status Reason Start Date Expiration Date Visits Requested Visits Authorized [id number] Pending Review PCP Requested Referral 04/29/2022 04/29/2023 [...] By Contac t Referred To Contact [facility] [place] Diagnoses Spinal stenosis of lumbar region, unspecified whether neurogenic claudication present Weakness of both lower extremities Procedures CONSULT TO [facility] OFFICE/OUTPATIENT [facility] 60-74 MINUTES Ashley Ewing, SLOAN.MECHANICAL INTERN [address] [place] [address] Referral ID Status Reason Start Date Expiration Date Visits Requested Visits Authorized [id number] Pending Review PCP Requested Referral 04/13/2023 04/12/2024 1 1 Reason Comments 6 Month Exam Reason Comments Benign Prostatic Hypertrophy Urinary Retention Specialty Diagnoses / Procedures Referred By Contac t Referred To Contact Urology Diagnoses Renal lesion Urinary retention Procedures CONSULT TO UROLOGY OFFICE/OUTPATIENT [facility] 60-74 MINUTES Fidelina Rosas, TEA LEAF READER.MECHANICAL INTERN [address] [place] [address] Referral ID Status Reason Start Date Expiration Date Visits Requested Visits Authorized [id number] Pending Review PCP Requested Referral 04/26/2023 04/25/2024 1 1 Reason Onset Date Comments Transition Of Care 08/15/2023 TCM Initial A [facility] Discharge 08/12/23 Reason Onset Date Comments Transition Of Care 08/20/2023 TCM Follow Up Reason Comments Radiology CT Specialty Diagnoses / Procedures Referred By Contac t Referred To Contact CT IMAGING Diagnoses Lung nodules Procedures CT CHEST WO IVCON DIAGNOSTIC COMPUTED TOMOGRAPHY THORAX W/O CNTRST Fidelina Rosas, TEA LEAF READER.MECHANICAL INTERN [address] [place] [address] [facility] Referral ID Status Reason Start Date Expiration Date V isits Requested Visits Authorized [id number] Closed Auto-Generate d Referral 03/04/2023 04/02/2024 1 1 Reason Comments Radiology US Specialty Diagnoses / Procedures Referred By Contac t Referred To Contact [facility] Diagnoses Renal lesion Procedures US KIDNEY/BLADDER US RETROPERITONEAL REAL TIME W/IMAGE COMPLETE Fidelina Rosas, TEA LEAF READER.MECHANICAL INTERN [address] [place] [address] [facility] Referral ID Status Reason Start Date Expiration Date V isits Requested Visits Authorized [id number] Closed Auto-Generate d Referral 04/20/2023 05/19/2024 1 1 Reason Onset Date Comments Transition Of Care 08/27/2023 TCM follow up [facility] Discharge 08/12/23 Reason Comments Patient Update Reason Comments Patient Question Reason Comments New Patient Reason Comments Established Patient Specialty Diagnoses / Procedures Referred By Contac t Referred To Contact CT IMAGING Diagnoses Subarachnoid hemorrhage (HCC) Procedures CT BRAIN WO IVCON CT HEAD/BRAIN W/O CONTRAST MATERIAL Kwadwo Srinivasan MD, PhD [address] [place] [address] [facility] Referral ID Status Reason Start Date Expiration Date V isits Requested Visits Authorized [id number] Closed Auto-Generate d Referral 10/13/2023 11/11/2024 1 1 Specialty Diagnoses / Procedures Referred By Contac t Referred To Contact CT IMAGING Diagnoses Subarachnoid hemorrhage (HCC) Procedures CT BRAIN WO IVCON CT HEAD/BRAIN W/O CONTRAST MATERIAL Kwadwo Srinivasan MD, PhD [address] [place] [address] [facility] Referral ID Status Reason Start Date Expiration Date V isits Requested Visits Authorized [id number] Closed Auto-Generate d Referral 09/12/2023 10/11/2024 1 1 Reason Comments Follow Up Pt reported taking N amenda denied changes. Reason Onset Date Comments Refill Request 05/09/2024 Specialty Diagnoses / Procedures Referred By Contac t Referred To Contact Occupational Therapy / OCCUPATIONAL THERAPY Diagnoses Dementia without behavioral disturbance (HCC) Memory loss Procedures CONSULT TO HORSE RACE TIMER Jayda Ace PA-C [address] [place] [address] [address] [place] [address] Referral ID Status Reason Start Date Expiration Date V isits Requested Visits Authorized [id number] Authorized 12/13/2023 10/16/2024 99 99 Reason Comments Radiology MRI Specialty Diagnoses / Procedures Referred By Contac t Referred To Contact MR IMAGING Diagnoses Spinal stenosis of lumbar region, unspecified whether neurogenic claudication present Procedures MRI LUMBAR SPINE WO IVCON MRI SPINAL CANAL LUMBAR W/O CONTRAST MATERIAL Ashley Ewing, TEA LEAF READER.MECHANICAL INTERN [address] [place] [address] [place] [address] Referral ID Status Reason Start Date Expiration Date V isits Requested Visits Authorized [id number] Closed Auto-Generate d Referral 04/06/2023 05/05/2024 1 1 Reason Comments Manager Outreach - Other Reason Comments Follow Up Benign Prostatic Hypertrophy Reason Comments Established Patient Memory, BRITTA 04/24 MQ Reason Comments 89916- pall med Initial Consult Reason Comments Established Patient Memory loss, dementi a Reason Comments Cough 2 weeks Reason Comments Fax Request Reason Comments Orders for modified barium swallow test at [facility] Reason Comments Home Care Reason Comments Patient Question [facility] Scheduling dept calling Reason Comments Home Care CONFIRMATION CALL Reason Comments Home Care 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 SOC Confirmation call Reason Comments Home Care Speech Therapy Home Care Admission 03/23/25, recommend adding PT EVAL Reason Comments Home Care DELAY IN SERVICE Reason Comments Home Care Patient information fall/medications Reason Comments Critical Care Transport Reason Onset Date Comments Transition Of Care 04/25/2025 Hospital reac h in message Specialty Diagnoses / Procedures Referred By Contac t Referred To Contact CT IMAGING Diagnoses Subdural hematoma (HCC) Procedures CT BRAIN WO IVCON CT HEAD/BRAIN W/O CONTRAST MATERIAL Melanie Chung PA-C [address] [place] [address] Phone: tel: fax: [place] [address] Referral ID Status Reason Start Date Expiration Date V isits Requested Visits Authorized [id number] Closed Auto-Generate d Referral 04/26/2025 05/26/2026 1 1 Reason Comments Hospital F/U Reason Comments [facility] Update Reason Comments Patient Update Results of overnight pulse o x Reason Comments Radiology US Specialty Diagnoses / Procedures Referred By Debbie yu Referred To Contact US IMAGING Diagnoses Mass of left upper extremity Procedures US EXTREMITY MASS/FLUID COLLECTION LEFT Yanet Adams MD [address] [place] [address] Phone: tel: fax: [place] [address] Referral ID Status Reason Start Date Expiration Date V isits Requested Visits Authorized [id number] Closed Auto-Generate d Referral 05/28/2025 06/27/2026 1 1 Reason Onset Date Comments Allied Health Visit 06/10/2025 Medication a dherence outreach Reason Onset Date Comments Refill Request 06/11/2025 Care Teams (unrecognized sec tion and content) [employer] Relationship Specialty Start Date End Date Yanet Adams MD [address] [place] [address] PCP - General Family Practice 02/14/18 [employer]ier Stained Glass Relationship Specialty Start Date End Date Yanet Adams MD [facility] [place] [address] PCP - General Family Practice 02/14/18 Gl[employer]ier Stained Glass Relationship Specialty Start Date End Date Yanet Adams MD [address] [place] [address] PCP - General Family Practice 02/14/18 Gl[employer]ier Stained Glass Relationship Specialty Start Date End Date Yanet Adams MD [address] [place] [address] PCP - General Family Practice 02/14/18 Gl[employer]ier Stained Glass Relationship Specialty Start Date End Date Yanet Adams MD [address] [place] [address] PCP - General Family Practice 02/14/18 Gl[employer]ier Stained Glass Relationship Specialty Start Date End Date Yanet Adams MD [address] [facility] [place] [address] PCP - General Family Practice 02/14/18 Gl[employer]ier Stained Glass Relationship Specialty Start Date End Date Yanet Adams MD [address] [facility] [place] [address] PCP - General Family Medicine 02/14/18 Glazier Stained Glass Relationship Specialty Start Date End Date Yanet Adams MD [address] [facility] [place] [place] [address] PCP - General Family Medicine 02/14/18 Glazier Stained Glass Relationship Specialty Start Date End Date Yanet Adams MD [address] [facility] [place] [address] PCP - General Family Medicine 02/14/18 Glazier Stained Glass Relationship Specialty Start Date End Date Yanet Adams MD [address] [facility] [place] [address] PCP - General Family Medicine 02/14/18 Glazier Stained Glass Relationship Specialty Start Date End Date Yanet Adams MD [address] [facility] [place] [address] PCP - General Family Medicine 02/14/18 Glazier Stained Glass Relationship Specialty Start Date End Date Yanet Adams MD [address] [facility] [place] [address] PCP - General Family Medicine 02/14/18 Glazier Stained Glass Relationship Specialty Start Date End Date Yanet Adams MD [address] [facility] [place] [address] PCP - General Family Medicine 02/14/18 Glazier Stained Glass Relationship Specialty Start Date End Date Yanet Adams MD [address] [facility] [place] [address] PCP - General Family Medicine 02/14/18 Glazier Stained Glass Relationship Specialty Start Date End Date Yanet Adams MD [address] [facility] [place] [address] PCP - General Family Medicine 02/14/18 Glazier Stained Glass Relationship Specialty Start Date End Date Yanet Adams MD [address] [facility] [place] [address] PCP - General Family Medicine 02/14/18 Glazier Stained Glass Relationship Specialty Start Date End Date Yanet Adams MD [address] [facility] [place] [address] PCP - General Family Medicine 02/14/18 Glazier Stained Glass Relationship Specialty Start Date End Date Yanet Adams MD [address] [facility] [place] [address] PCP - General Family Medicine 02/14/18 Glazier Stained Glass Relationship Specialty Start Date End Date Yanet Adams MD [address] [facility] [place] [address] PCP - General Family Medicine 02/14/18 Glazier Stained Glass Relationship Specialty Start Date End Date Yanet Adams MD [address] [facility] [place] [address] PCP - General Family Medicine 02/14/18 Glazier Stained Glass Relationship Specialty Start Date End Date Yanet Adams MD [address] [facility] [place] [address] PCP - General Family Medicine 02/14/18 Glazier Stained Glass Relationship Specialty Start Date End Date Yanet Adams MD [address] [facility] [place] [address] PCP - General Family Medicine 02/14/18 Glazier Stained Glass Relationship Specialty Start Date End Date Yanet Adams MD [address] [place] [address] PCP - General Family Medicine 02/14/18 Glazier Stained Glass Relationship Specialty Start Date End Date Yanet Adams MD [address] [place], [place] [address]881 PCP - General Family Medicine 02/14/18 Team Status: Active Member Role Status Dates Dr. Yanet Adams MD Family Provider Active Dr. Yanet Adams MD Primary Care Provider Active Team Status: Inactive Member Role Status Dates Dr. Yanet Adams MD Primary Care Provider Active DAVID DONALDSON Attending Provider, Referring Provider Active Team Status: Inactive Member Role Status Dates Dr. Yanet Adams MD Primary Care Provider Active Dr. Tahira Jenkins MD Emergency Provider Active [employer] Relationship Specialty Start Date End Date Yanet Adams MD [address] [place] [address] PCP - General Family Medicine 02/14/18 [employer]ier Stained Glass Relationship Specialty Start Date End Date Yanet Adams MD [address] [place] [address] PCP - General Family Medicine 02/14/18 Luis Mayfield RN [address] [place] [address] Primary Care Organ Teacher Internal Medicine 08/15/23 09/14/23 [employer]ier Stained Glass Relationship Specialty Start Date End Date Yanet Adams MD [address] [place] [address] PCP - General Family Medicine 02/14/18 Gl[employer]ier Stained Glass Relationship Specialty Start Date End Date Yanet Adams MD [address] [place] [address] PCP - General Family Medicine 02/14/18 Luis Mayfield RN [address] [place] [address] Primary Care Organ Teacher Internal Medicine 08/15/23 09/14/23 Gl[employer]ier Stained Glass Relationship Specialty Start Date End Date Yanet Adams MD [address] [place], [place] 556[address] PCP - General Family Medicine 02/14/18 Kwadwo Srinivasan MD, PhD [address] [place] [address] Neurosurgery 09/19/23 Gl[employer]ier Stained Glass Relationship Specialty Start Date End Date Yanet Adams MD [address] [place], [place] [address]131 PCP - General Family Medicine 02/14/18 Kwadwo Srinivasan MD, PhD [address] [place], [place] [address] Neurosurgery 09/19/23 Glazier Stained Glass Relationship Specialty Start Date End Date Yanet Adams MD [address] [place], [place] [address]99431 PCP - General Family Medicine 02/14/18 Kwadwo Srinivasan MD, PhD [address] [place], [place] [address]273 Neurosurgery 09/19/23 Glazier Stained Glass Relationship Specialty Start Date End Date Yanet Adams MD [address] [place], [place] 798271 PCP - General Family Medicine 02/14/18 Kwadwo Srinivasan MD, PhD [address] [place] [place] [address] Neurosurgery 09/19/23 Glazier Stained Glass Relationship Specialty Start Date End Date Yanet Adams MD [address] [place] [address] PCP - General Family Medicine 02/14/18 Kwadwo Srinivasan MD, PhD [address] [facility], [place] [address] Neurosurgery 09/19/23 Team Status: Inactive Member Role Status Dates Dr. Yanet Adams MD Primary Care Provider Active Dr. Tahira Jenkins MD Attending Provider, Emergency Provider Active Team Status: Inactive Member Role Status Dates Dr. Yanet Adams MD Primary Care Provider Active ZARINA BURKETT Attending Provider Active [employer] Relationship Specialty Start Date End Date Yanet Adams MD [address] [place] [address] PCP - General Family Medicine 02/14/18 Kwadwo Srinivasan MD, PhD [address] [facility], [place] 3[address]23 Neurosurgery 09/19/23 Gl[employer]ier Stained Glass Relationship Specialty Start Date End Date Yanet Adams MD [address] [place] [address] PCP - General Family Medicine 02/14/18 Kwadwo Srinivasan MD, PhD [address] [place] [address] Neurosurgery 09/19/23 Gl[employer]ier Stained Glass Relationship Specialty Start Date End Date Yanet Adams MD [address] [place] [address] PCP - General Family Medicine 02/14/18 Kwadwo Srinivasan MD, PhD [address] [facility] [place] [address] Neurosurgery 09/19/23 Glazier Stained Glass Relationship Specialty Start Date End Date Yanet Adams MD [address] [place] [address] PCP - General Family Medicine 02/14/18 Kwadwo Srinivasan MD, PhD [address] [facility] [place], [place] [address] Neurosurgery 09/19/23 Glazier Stained Glass Relationship Specialty Start Date End Date Yanet Adams MD [address] [place], [place] 950121 PCP - General Family Medicine 02/14/18 Kwadwo Srinivasan MD, PhD [address] [facility] [place] [place] [address] Neurosurgery 09/19/23 Glazier Stained Glass Relationship Specialty Start Date End Date Yanet Adams MD [address] [place] [address] PCP - General Family Medicine 02/14/18 Kwadwo Srinivasan MD, PhD [address] [place] [address] Neurosurgery 09/19/23 Glazier Stained Glass Relationship Specialty Start Date End Date Yanet Adams MD [address] [place], [place] 428951 PCP - General Family Medicine 02/14/18 Kwadwo Srinivasan MD, PhD [address] [place] [place] [address] Neurosurgery 09/19/23 Glazier Stained Glass Relationship Specialty Start Date End Date Yanet Adams MD [address] [place], [place] 552531 PCP - General Family Medicine 02/14/18 Kwadwo Srinivasan MD, PhD [address] [place] [address] Neurosurgery 09/19/23 Glazier Stained Glass Relationship Specialty Start Date End Date Yanet Adams MD [address] [place], [place] 811671 PCP - General Family Medicine 02/14/18 Kwadwo Srinivasan MD, PhD [address] [facility], [place] 877173 Neurosurgery 09/19/23 Glazier Stained Glass Relationship Specialty Start Date End Date Yanet Adams MD [address] [place], [place] 185711 PCP - General Family Medicine 02/14/18 Glazier Stained Glass Relationship Specialty Start Date End Date Yanet Adams MD [address] [place] [address] PCP - General Family Medicine 02/14/18 Glazier Stained Glass Relationship Specialty Start Date End Date Yanet Adams MD [address] [place], [place] 491621 PCP - General Family Medicine 02/14/18 Kwadwo Srinivasan MD, PhD [address] [facility] [place] [address] Neurosurgery 09/19/23 Glazier Stained Glass Relationship Specialty Start Date End Date Yanet Adams MD [address] [place], [place] 930[address] PCP - General Family Medicine 02/14/18 Glazier Stained Glass Relationship Specialty Start Date End Date Yanet Adams MD [address] [place] [address] PCP - General Family Medicine 02/14/18 Kwadwo Srinivasan MD, PhD [address] [place] [address] Neurosurgery 09/19/23 Glazier Stained Glass Relationship Specialty Start Date End Date Yanet Adams MD [address] [place] [address] PCP - General Family Medicine 02/14/18 Glazier Stained Glass Relationship Specialty Start Date End Date Yanet Adams MD [address] [place], [place] 117071 PCP - General Family Medicine 02/14/18 Glazier Stained Glass Relationship Specialty Start Date End Date Yanet Adams MD [address] [place] [address] PCP - General Family Medicine 02/14/18 Kwadwo Srinivasan MD, PhD [address] [facility] [place] [place] [address] Neurosurgery 09/19/23 Glazier Stained Glass Relationship Specialty Start Date End Date Yanet Adams MD [address] [place], [place] 669[address] PCP - General Family Medicine 02/14/18 Kwadwo Srinivasan MD, PhD [address] [facility] [place] [address] Neurosurgery 09/19/23 Glazier Stained Glass Relationship Specialty Start Date End Date Yanet Adams MD [address] [place], [place] 743091 PCP - General Family Medicine 02/14/18 Kwadwo Srinivasan MD, PhD [address] [facility] [place], [place] [address] Neurosurgery 09/19/23 Glazier Stained Glass Relationship Specialty Start Date End Date Yanet Adams MD [address] [place], [place] [address] PCP - General Family Medicine 02/14/18 Kwadwo Srinivasan MD, PhD [address] [facility] [place], [place] [address] Neurosurgery 09/19/23 Glazier Stained Glass Relationship Specialty Start Date End Date Yanet Adams MD [address] [place], [place] [address] PCP - General Family Medicine 02/14/18 Kwadwo Srinivasan MD, PhD [address] [place] [address] Neurosurgery 09/19/23 Fidelina Rosas APRN.MECHANICAL INTERN [address] [facility] [place] [address] Assistant Professor Of Economics Family Medicine 09/24/24 Jeanine Fermin APRN.MECHANICAL INTERN [address] [place] [address] Assistant Professor Of [facility] 09/24/24 Glazier Stained Glass Relationship Specialty Start Date End Date Yanet Adams MD [address] [place] [place] [address] PCP - General Family Medicine 02/14/18 Kwadwo Srinivasan MD, PhD [address] [facility] [place] [address] Neurosurgery 09/19/23 Fidelina Rosas APRN.MECHANICAL INTERN [address] [facility] [place] [address] Assistant Professor Of Economics Family Medicine 09/24/24 Jeanine Fermin TEA LEAF READER.MECHANICAL INTERN [address] [place] [address] [facility] 09/24/24 Glazier Stained Glass Relationship Specialty Start Date End Date Yanet Adams MD [address] [place] [address] PCP - General Family Medicine 02/14/18 Kwadwo Srinivasan MD, PhD [address] [facility] [place] [address] Neurosurgery 09/19/23 Fidelina Rosas APRN.MECHANICAL INTERN [address] [facility] [place] [address] Assistant Professor Of Economics Family Medicine 09/24/24 Glazier Stained Glass Relationship Specialty Start Date End Date Yanet Adams MD [address] [place] [address] PCP - General Family Medicine 02/14/18 Kwadwo Srinivasan MD, PhD [address] [facility] [place] [address] Neurosurgery 09/19/23 Fidelina Rosas TEA LEAF READER.MECHANICAL INTERN [address] [place] [address] Assistant Professor Of Economics Family Medicine 09/24/24 Jeanine Fermin TEA LEAF READER.MECHANICAL INTERN [address] [place] [address] Assistant Professor Of Economics Family Medicine 09/24/24 Glazier Stained Glass Relationship Specialty Start Date End Date Yanet Adams MD [address] [place] [address] PCP - General Family Medicine 02/14/18 Kwadwo Srinivasan MD, PhD [address] [facility] [place] [address] Neurosurgery 09/19/23 Fidelina Rosas, TEA LEAF READER.MECHANICAL INTERN [address] [place] [address] Assistant Professor Of Economics Family [facility] 09/24/24 Jeanine Fermin APRN.MECHANICAL INTERN [address] [place] [address] Assistant Professor Of Economics Family [facility] 09/24/24 Glazier Stained Glass Relationship Specialty Start Date End Date Yanet Adams MD [address] [place] [address] PCP - General Family Medicine 02/14/18 Kwadwo Srinivasan MD, PhD [address] [facility] [place] [address] Neurosurgery 09/19/23 Fidelina Rosas APRN.MECHANICAL INTERN [address] [place] [address] Assistant Professor Of Economics [facility] 09/24/24 Jeanine Fermin APRN.MECHANICAL INTERN [address] [place] [address] Assistant Professor Of Economics [facility] 09/24/24 Glazier Stained Glass Relationship Specialty Start Date End Date Yanet Adams MD [address] [place] [address] PCP - General Family Medicine 02/14/18 Kwadwo Srinivasan MD, PhD [address] [facility] [place] [address] Neurosurgery 09/19/23 Fidelina Rosas APRN.MECHANICAL INTERN [address] [place], [place] [address]89321 Assistant Professor Of Economics Family [facility] 09/24/24 Jeanine Fermin APRN.MECHANICAL INTERN [address] [place], [place] 707[address] Assistant Professor Of Economics [facility] 09/24/24 Glazier Stained Glass Relationship Specialty Start Date End Date Yanet Adams MD [address] [place], [place] 366181 PCP - General Family Medicine 02/14/18 Kwadwo Srinivasan MD, PhD [address] [facility] [place] [address] Neurosurgery 09/19/23 Fidelina Rosas APRN.MECHANICAL INTERN [address] [place] [address] Assistant Professor Of [facility] 09/24/24 Jeanine Fermin TEA LEAF READER.MECHANICAL INTERN [address] [place], [place] 562391 Assistant Professor Of [facility] 09/24/24 Glazier Stained Glass Relationship Specialty Start Date End Date Yanet Adams MD [address] [place], [place] [address]49461 PCP - General Family Medicine 02/14/18 Kwadwo Srinivasan MD, PhD [address] [facility] [place], [place] [address] Neurosurgery 09/19/23 Fidelina Rosas APRN.MECHANICAL INTERN [address] [place], [place] 461491 Assistant Professor Of [facility] 09/24/24 Jeanine Fermin APRN.MECHANICAL INTERN [address] [place], [place] 833[address] [facility] 09/24/24 Glazier Stained Glass Relationship Specialty Start Date End Date Yanet Adams MD [address] [place], [place] [address]28[address] PCP - General Family Medicine 02/14/18 Kwadwo Srinivasan MD, PhD [address] [facility] [place] [id number] Neurosurgery 09/19/23 Fidelina Rosas APRN.MECHANICAL INTERN [address] [place] [address] [facility] 09/24/24 Jeanine Fermin APRN.MECHANICAL INTERN [address] [place] [address] [facility] 09/24/24 Glazier Stained Glass Relationship Specialty Start Date End Date Yanet Adams MD [address] [place] [address] PCP - General Family Medicine 02/14/18 Kwadwo Srinivasan MD, PhD [address] [facility], [place] [address]663 Neurosurgery 09/19/23 Fidelina Rosas APRN.MECHANICAL INTERN [address] [place] [address] [facility] 09/24/24 Jeanine Fermin APRN.MECHANICAL INTERN [address] [facility], [place] 99[address]71 [facility] 09/24/24 Glazier Stained Glass Relationship Specialty Start Date End Date Yanet Adams MD [address] [facility], [place] [address]001 PCP - General Family Medicine 02/14/18 Kwadwo Srinivasan MD, PhD [address] [place] [address] Neurosurgery 09/19/23 Fidelina Rosas APRN.MECHANICAL INTERN [address] [facility], [place] 315[address] [facility] 09/24/24 Jeanine Fermin TEA LEAF READER.MECHANICAL INTERN [address] [facility], [place] 78[address] [facility] 09/24/24 Team Status: Active Member Role Status Dates Dr. Yanet Adams MD Primary Care Provider Active Team Status: Active Member Role Status Dates Dr. Yanet Adams MD Primary Care Provider Active Start: February 20, 2025 VIOLET Mejia Attending Provider Active Start: February 20, 2025 VIOLET Mejia Referring Provider Active Start: February 20, 2025 Team Status: Inactive Member Role Status Dates Dr. Yanet Adams MD Primary Care Provider Active Start: February 28, 2025 End: February 28, 2025 VIOLET Mejia Attending Provider Active Start: February 28, 2025 End: February 28, 2025 VIOLET Mejia Referring Provider Active Start: February 28, 2025 End: February 28, 2025 Glazier Stained Glass Relationship Specialty Start Date End Date Yanet Adams MD [address] [facility] [place] [address] PCP - General Family Medicine 02/14/18 Kwadwo Srinivasan MD, PhD [address] [facility] [place] [address] Neurosurgery 09/19/23 Fidelina Rosas APRN.MECHANICAL INTERN [address] [facility] [place] [address] Assistant Professor Of Economics Family Medicine 09/24/24 Jeanine Fermin APRN.MECHANICAL INTERN [address] [place] [address] Assistant Professor Of Economics Family Medicine 09/24/24 Glazier Stained Glass Relationship Specialty Start Date End Date Yanet Adams MD [address] [place] [place] [address] PCP - General Family Medicine 02/14/18 Kwadwo Srinivasan MD, PhD [address] [facility] [place] [address] Neurosurgery 09/19/23 Fidelina Rosas APRN.MECHANICAL INTERN [address] [place] [address] Assistant Professor Of Economics Family Medicine 09/24/24 Jeanine Fermin TEA LEAF READER.MECHANICAL INTERN [address] [place] [address] Assistant Professor Of Economics Family Medicine 09/24/24 Jeanine Fermin TEA LEAF READER.MECHANICAL INTERN [address] [place] [address] Referring Family Medicine 6/6/25 Jeanine Fermin, TEA LEAF READER.MECHANICAL INTERN [address] [facility] [place] [address] Home Care Provider Family Medicine 03/22/25 Tila Caceres CCC-UPHOLSTERY TECHNICIAN [address] [place], [place] [phone] Solutions Consultant Post Acute Care 03/22/25 Glazier Stained Glass Relationship Specialty Start Date End Date Yanet Adams MD [address] [facility] [place] [address] PCP - General Family Medicine 02/14/18 Kwadwo Srinivasan MD, PhD [address] [place] [address] Neurosurgery 09/19/23 Fidelina Rosas, SLOAN.MECHANICAL INTERN [address] [facility] [place] [address] Assistant Professor Of Economics Family Medicine 09/24/24 Jeanine Fermin, TEA LEAF READER.MECHANICAL INTERN [address] [facility] [place] [address] Assistant Professor Of Economics Family Medicine 09/24/24 Jeanine Fermin, TEA LEAF READER.MECHANICAL INTERN [address] [facility] [place] [address] Referring Family Medicine 03/22/25 Jeanine Fermin, TEA LEAF READER.MECHANICAL INTERN [address] [facility] [place] [address] Home Care Provider Family Medicine 03/22/25 Tila Caceres CCC-UPHOLSTERY TECHNICIAN [address] [place], [place] [id number] Solutions Consultant Post Acute Care 03/22/25 Glazier Stained Glass Relationship Specialty Start Date End Date Yanet Adams MD [address] [place], [place] 00[address] PCP - General Family Medicine 02/14/18 Kwadwo Srinivasan MD, PhD [address] [place] [address] Neurosurgery 09/19/23 Fidelina Rosas, TEA LEAF READER.MECHANICAL INTERN [address] [place], [place] 614731 Assistant Professor Of Economics Family [facility] 09/24/24 Jeanine Fermin, TEA LEAF READER.MECHANICAL INTERN [address] [place] [address] Assistant Professor Of Economics Family [facility] 09/24/24 Jeanine Fermin, TEA LEAF READER.MECHANICAL INTERN [address] [place] [address] Referring Family Medicine 03/22/25 Jeanine Fermin, TEA LEAF READER.MECHANICAL INTERN [address] [place] [address] Home Care Provider Family Medicine 03/22/25 Tila Caceres, [facility]-UPHOLSTERY TECHNICIAN [address] [place] [address] Solutions Consultant Post Acute Care 03/22/25 Glazier Stained Glass Relationship Specialty Start Date End Date Yanet Adams MD [address] [place], [place] 189991 PCP - General Family Medicine 02/14/18 Kwadwo Srinivasan MD, PhD [address] [facility] [place] [address] Neurosurgery 09/19/23 Fidelina Rosas APRN.MECHANICAL INTERN [address] [place] [address] Assistant Professor Of Economics Family Medicine 09/24/24 Jeanine Fermin APRN.MECHANICAL INTERN [address] [place] [address] Assistant Professor Of Economics Family Medicine 09/24/24 Jeanine Fermin APRN.MECHANICAL INTERN [address] [place] [address] Referring Family Medicine 03/22/25 Jeanine Fermin APRN.MECHANICAL INTERN [address] [place] [address] Home Care Provider Family Medicine 03/22/25 Tila Caceres, [facility] [address] [place] [address] Solutions Consultant Post Acute Care 03/22/25 Glazier Stained Glass Relationship Specialty Start Date End Date Yanet Adams MD [address] [place], [place] 0032[address] PCP - General Family Medicine 02/14/18 Kwadwo Srinivasan MD, PhD [address] [facility] [place] [address] Neurosurgery 09/19/23 Fidelina Rosas APRN.MECHANICAL INTERN [address] [place], [place] 200[address] Assistant Professor Of Economics Family Medicine 09/24/24 Jeanine Fermin TEA LEAF READER.MECHANICAL INTERN [address] [place], [place] 832041 Assistant Professor Of Economics Family [facility] 09/24/24 Glazier Stained Glass Relationship Specialty Start Date End Date Yanet Adams MD [address] [place], [place] 594[address] PCP - General Family Medicine 02/14/18 Kwadwo Srinivasan MD, PhD [address] [place] [address] Neurosurgery 09/19/23 Fidelina Rosas TEA LEAF READER.MECHANICAL INTERN [address] [place], [place] 110781 Assistant Professor Of Economics [facility] 09/24/24 Jeanine Fermin, TEA LEAF READER.MECHANICAL INTERN [address] [place], [place] 892881 Assistant Professor Of Economics [facility] 09/24/24 Jeanine Fermin, TEA LEAF READER.MECHANICAL INTERN [address] [place], [place] 359041 Referring Family Medicine 03/22/25 Jeanine Fermin, TEA LEAF READER.MECHANICAL INTERN [address] [place] [address] Home Care Provider Family Medicine 03/22/25 Tila Caceres, [facility]-UPHOLSTERY TECHNICIAN [address] [place], [place] [id number] Solutions Consultant Post Acute Care 03/22/25 Glazier Stained Glass Relationship Specialty Start Date End Date Yanet Adams MD [address] [place] [address] PCP - General Family Medicine 02/14/18 Kwadwo Srinivasan MD, PhD [address] [place] [address] Neurosurgery 09/19/23 Fidelina Rosas APRN.MECHANICAL INTERN [address] [place] [address] Assistant Professor Of Economics Family Medicine 09/24/24 Jeanine Fermin APRN.MECHANICAL INTERN [address] [place] [address] Assistant Professor Of Economics Family [facility] 09/24/24 Jeanine Fermin APRN.MECHANICAL INTERN [address] [place] [address] Referring Family Medicine 03/22/25 Jeanine Fermin APRN.MECHANICAL INTERN [address] [place] [address] Home Care Provider Family Medicine 03/22/25 Tila Caceres, [facility] [address] [place] [address] Solutions Consultant Post Acute Care 03/22/25 Glazier Stained Glass Relationship Specialty Start Date End Date Yanet Adams MD [address] [place], [place] [address]84[address] PCP - General Family Medicine 02/14/18 Kwadwo Srinivasan MD, PhD [address] [facility] [place] [address] Neurosurgery 09/19/23 Fidelina Rosas, TEA LEAF READER.MECHANICAL INTERN [address] [facility], [place] 906181 Assistant Professor Of Economics Family Medicine 09/24/24 Jeanine Fermin, TEA LEAF READER.MECHANICAL INTERN [address] [facility], [place] 339181 Assistant Professor Of Economics Family Medicine 09/24/24 Jeanine Fermin, TEA LEAF READER.MECHANICAL INTERN [address] [facility], [place] 751741 Referring Family Medicine 03/22/25 Jeanine Fermin, TEA LEAF READER.MECHANICAL INTERN [address] [facility], [place] 948091 Home Care Provider Family Medicine 03/22/25 Tila Caceres, [facility]-UPHOLSTERY TECHNICIAN [address] [place], [place] [id number] Solutions Consultant Post Acute Care 03/22/25 Team Status: Active Member Role/Relationship Status Dates Dr. Yanet Adams MD Primary Care Provider Active Team Status: Active Member Role/Relationship Status Dates Dr. Yanet Adams MD Primary Care Provider Active Start: February 20, 2025 VIOLET Mejia Attending Provider Active Start: February 20, 2025 Jeanine Fermin RECREATION 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 Referring Provider Active Start: February 20, 2025 Team Status: Inactive Member Role/Relationship Status Dates Dr. Yanet Adams MD Primary Care Provider Active Start: February 28, 2025 End: February 28, 2025 VIOLET Mejia Attending Provider Active Start: February 28, 2025 End: February 28, 2025 VIOLET Mejia Referring Provider Active Start: February 28, 2025 End: February 28, 2025 Team Status: Inactive Member Role/Relationship Status Dates Dr. Yanet Adams MD Primary Care Provider Active Start: April 24, 2025 End: April 24, 2025 Dr. Mat Delaney DO Emergency Provider Active Start: April 24, 2025 End: April 24, 2025 Glazier Stained Glass Relationship Specialty Start Date End Date Yanet Adams MD [address] [place], [place] 384081 PCP - General Family Medicine 02/14/18 Kwadwo Srinivasan MD, PhD [address] [place], [place] [address]18[address] Neurosurgery 09/19/23 Fidelina Rosas, TEA LEAF READER.MECHANICAL INTERN [address] [place], [place] 710991 Assistant Professor Of Economics Family [facility] 09/24/24 Jeanine Fermin, TEA LEAF READER.MECHANICAL INTERN [address] [place], [place] [address]06[address] Assistant Professor Of Economics Family [facility] 09/24/24 Jeanine Fermin, TEA LEAF READER.MECHANICAL INTERN [address] [place], [place] 879571 Referring Family Medicine 03/22/25 Jeanine Fermin, TEA LEAF READER.MECHANICAL INTERN [address] [place], [place] 096461 Home Care Provider Family Medicine 03/22/25 Tila Caceres, [facility]-UPHOLSTERY TECHNICIAN [address] [place], [place] [id number] Solutions Consultant Post Acute Care 03/22/25 Glazier Stained Glass Relationship Specialty Start Date End Date Yanet Adams MD [address] [place], [place] [id number] PCP - General Family Medicine 02/14/18 Kwadwo Srinivasan MD, PhD [address] [facility] [address] Neurosurgery 09/19/23 Fidelina Rosas APRN.MECHANICAL INTERN [address] [place] [address] Assistant Professor Of Economics Family Medicine 09/24/24 Jeanine Fermin APRN.MECHANICAL INTERN [address] [place] [address] Assistant Professor Of Economics Family Medicine 09/24/24 Jeanine Fermin APRN.MECHANICAL INTERN [address] [place] [address] Referring Family Medicine 03/22/25 Jeanine Fermin APRN.MECHANICAL INTERN [address] [place] [address] Home Care Provider Family Medicine 03/22/25 Tila Caceres, [facility]-UPHOLSTERY TECHNICIAN [address] [place] [address] Solutions Consultant Post Acute Care 03/22/25 Glazier Stained Glass Relationship Specialty Start Date End Date Yanet Adams MD [address] [place], [place] 200921 PCP - General Family Medicine 02/14/18 Kwadwo Srinivasan MD, PhD [address] [facility] [place] [address] Neurosurgery 09/19/23 Fidelina Rosas APRN.MECHANICAL INTERN [address] [place] [address] Assistant Professor Of Economics Family Medicine 09/24/24 Jeanine Fermin TEA LEAF READER.MECHANICAL INTERN [address] [facility] [address] Assistant Professor Of Economics Family [facility] 09/24/24 Jenaine Fermin, TEA LEAF READER.MECHANICAL INTERN [address] [facility] [place] [address] Referring Family Medicine 03/22/25 Jeanine Fermin, TEA LEAF READER.MECHANICAL INTERN [address] [facility] [place] [address] Home Care Provider Family Medicine 03/22/25 Tila Caceres, [facility]-UPHOLSTERY TECHNICIAN [address] [place], [place] [phone] Solutions Consultant Post Acute Care 03/22/25 Glazier Stained Glass Relationship Specialty Start Date End Date Yanet Adams MD [address] [facility] [place] [address] PCP - General Family Medicine 02/14/18 Kwadwo Srinivasan MD, PhD [address] [place], [place] [address]13[address] Neurosurgery 09/19/23 Fidelina Rosas, TEA LEAF READER.MECHANICAL INTERN [address] [facility] [place] [address] Assistant Professor Of Economics Family [facility] 09/24/24 Jeanine Fermin TEA LEAF READER.MECHANICAL INTERN [address] [facility] [place] [address] Assistant Professor Of Economics Family Medicine 09/24/24 Jeanine Fermin, TEA LEAF READER.MECHANICAL INTERN [address] [place] [address] Referring Family Medicine 03/22/25 Jeanine Fermin TEA LEAF READER.MECHANICAL INTERN [address] [facility] [place] [address] Home Care Provider Family Medicine 03/22/25 Tila Caceres CCC-UPHOLSTERY TECHNICIAN [address] [place] [address] Solutions Consultant Post Acute Care 03/22/25 Glazier Stained Glass Relationship Specialty Start Date End Date Yanet Adams MD [address] [facility] [place] [address] PCP - General Family Medicine 02/14/18 Kwadwo Srinivasan MD, PhD [address] [place] [address] Neurosurgery 09/19/23 Fidelina Rosas APRN.MECHANICAL INTERN [address] [facility] [place] [address] Assistant Professor Of Economics Family Medicine 09/24/24 Jeanine Fermin TEA LEAF READER.MECHANICAL INTERN [address] [facility] [place] [address] Assistant Professor Of Economics Family Medicine 09/24/24 Jeanine Fermin, TEA LEAF READER.MECHANICAL INTERN [address] [facility] [place] [address] Referring Family Medicine 03/22/25 Jeanine Fermin, TEA LEAF READER.MECHANICAL INTERN [address] [facility] [place] [address] Home Care Provider Family Medicine 03/22/25 Tila Caceres CCC-UPHOLSTERY TECHNICIAN [address] [place] [address] Solutions Consultant Post Acute Care 03/22/25 Team Status: Inactive Member Role/Relationship Status Dates Dr. Yanet Adams MD Primary Care Provider Active Start: April 24, 2025 End: April 24, 2025 Dr. Mat Delaney DO Attending Provider Active Start: April 24, 2025 End: April 24, 2025 Dr. Mat Delaney DO Emergency Provider Active Start: April 24, 2025 End: April 24, 2025 Team Status: Active Member Role/Relationship Status Dates Dr. aYnet Adams MD Primary Care Provider Active Start: May 02, 2025 Ayana JACOBS MD Attending Provider Active Start: May 02, 2025 Team Status: Active Member Role/Relationship Status Dates Dr. Yanet Adams MD Primary Care Provider Active Start: May 07, 2025 Ayana JACOBS MD Attending Provider Active Start: May 07, 2025 Team Status: Inactive Member Role/Relationship Status Dates Dr. Yanet Adams MD Primary Care Provider Active Start: May 07, 2025 End: May 07, 2025 Dr. Ayana Choi MD Attending Provider Active Start: May 07, 2025 End: May 07, 2025 Team Status: Active Member Role/Relationship Status Dates Dr. Yanet Adams MD Primary Care Provider Active Start: May 14, 2025 Ayana JACOBS MD Attending Provider Active Start: May 14, 2025 Team Status: Inactive Member Role/Relationship Status Dates Dr. Yanet Adams MD Primary Care Provider Active Start: May 01, 2025 End: May 01, 2025 Yolie Woodward ACCOUNTS PAYABLE ASSISTANT, ACCOUNTS PAYABLE ASSISTANT-C Attending Provider Active Start: May 01, 2025 End: May 01, 2025 Team Status: Active Member Role/Relationship Status Dates Dr. Yanet Adams MD Primary Care Provider Active Start: May 02, 2025 Ayana JACOBS MD Attending Provider Active Start: May 02, 2025 Team Status: Active Member Role/Relationship Status Dates Dr. Yanet Adams MD Primary Care Provider Active Start: May 07, 2025 Ayana JACOBS MD Attending Provider Active Start: May 07, 2025 Team Status: Inactive Member Role/Relationship Status Dates Dr. Yanet Adams MD Primary Care Provider Active Start: May 07, 2025 End: May 07, 2025 Dr. Ayana Choi MD Attending Provider Active Start: May 07, 2025 End: May 07, 2025 Team Status: Active Member Role/Relationship Status Dates Dr. Yanet Adams MD Primary Care Provider Active Start: May 14, 2025 Ayana JACOBS MD Attending Provider Active Start: May 14, 2025 Team Status: Inactive Member Role/Relationship Status Dates Dr. Yanet Adams MD Primary Care Provider Active Start: May 04, 2025 End: May 04, 2025 Yolie Woodward NP, ACCOUNTS PAYABLE ASSISTANT-C Attending Provider Active Start: May 04, 2025 End: May 04, 2025 Team Status: Active Member Role/Relationship Status Dates Dr. Yanet Adams MD Primary Care Provider Active Start: May 07, 2025 Ayana JACOBS MD Attending Provider Active Start: May 07, 2025 Team Status: Inactive Member Role/Relationship Status Dates Dr. Yanet Adams MD Primary Care Provider Active Start: May 07, 2025 End: May 07, 2025 Dr. Ayana Choi MD Attending Provider Active Start: May 07, 2025 End: May 07, 2025 Team Status: Active Member Role/Relationship Status Dates Dr. Yanet Adams MD Primary Care Provider Active Start: May 14, 2025 Ayana JACOBS MD Attending Provider Active Start: May 14, 2025 Glazier Stained Glass Relationship Specialty Start Date End Date Yanet Adams MD [address] [place] [address] PCP - General Family Medicine 02/14/18 Kwadwo Srinivasan MD, PhD [address] [place] [address] Neurosurgery 09/19/23 Fidelina Rosas APRN.MECHANICAL INTERN [address] [place] [address] Assistant Professor Of Economics Family [facility] 09/24/24 Jeanine Fermin APRN.MECHANICAL INTERN [address] [place] [address] Assistant Professor Of Economics Family [facility] 09/24/24 Jeanine Fermin TEA LEAF READER.MECHANICAL INTERN [address] [place] [address] Referring Family Medicine 03/22/25 Jeanine Fermin APRN.MECHANICAL INTERN [address] [place] [address] Home Care Provider Family Medicine 03/22/25 Tila Caceres, [facility] [address] [place] [address] Solutions Consultant Post Acute Care 03/22/25 Glazier Stained Glass Relationship Specialty Start Date End Date Yanet Adams MD [address] [place] [address] PCP - General Family Medicine 02/14/18 Kwadwo Srinivasan MD, PhD [address] [place] [address] Neurosurgery 09/19/23 Fidelina Rosas APRN.MECHANICAL INTERN [address] [place] [address] Assistant Professor Of Economics Family [facility] 09/24/24 Jeanine Fermin APRN.MECHANICAL INTERN [address] [place] [address] Assistant Professor Of Economics Family [facility] 09/24/24 Jeanine Fermin APRN.MECHANICAL INTERN [address] [facility] [address] Referring Family Medicine 03/22/25 Jeanine Fermin, TEA LEAF READER.MECHANICAL INTERN [address] [place] [address] Home Care Provider Family Medicine 03/22/25 Tila Caceres, [facility]-UPHOLST[facility] TECHNICIAN [address] [place] [address] Solutions Consultant Post Acute Care 03/22/25 Glazier Stained Glass Relationship Specialty Start Date End Date Yanet Adams MD [address] [place] [address] PCP - General Family Medicine 02/14/18 Kwadwo Srinivasan MD, PhD [address] [place] [address] Neurosurgery 09/19/23 Fidelina Rosas APRN.MECHANICAL INTERN [address] [place] [address] Assistant Professor Of Economics Family Medicine 09/24/24 Jeanine Fermin TEA LEAF READER.MECHANICAL INTERN [address] [place] [address] Assistant Professor Of Economics Family Medicine 09/24/24 Jeanine Fermin TEA LEAF READER.MECHANICAL INTERN [address] [place] [address] Referring Family Medicine 03/22/25 Jeanine Fermin, TEA LEAF READER.MECHANICAL INTERN [address] [place] [address] Home Care Provider Family Medicine 03/22/25 Tila Caceres CCC-UPHOLSTERY TECHNICIAN [address] [place], [place] [id number] Solutions Consultant Post Acute Care 03/22/25 Glazier Stained Glass Relationship Specialty Start Date End Date Yanet Adams MD [address] [facility], [place] [id number] PCP - General Family Medicine 02/14/18 Kwadwo Srinivasan MD, PhD [address] [place] [address] Neurosurgery 09/19/23 Fidelina Rosas APRN.MECHANICAL INTERN [address] [facility] [place] [address] Assistant Professor Of Economics Family Medicine 09/24/24 Jeanine Fermin, TEA LEAF READER.MECHANICAL INTERN [address] [facility] [place] [address] Assistant Professor Of Economics Family Medicine 09/24/24 Jeanine Fermin, TEA LEAF READER.MECHANICAL INTERN [address] [facility] [place] [address] Referring Family Medicine 03/22/25 Jeanine Fermin, TEA LEAF READER.MECHANICAL INTERN [address] [facility] [place] [address] Home Care Provider Family Medicine 03/22/25 Tila Caceres CCC-UPHOLSTERY TECHNICIAN [address] [place] [address] Solutions Consultant Post Acute Care 03/22/25 Glazier Stained Glass Relationship Specialty Start Date End Date Yanet Adams MD [address] [facility] [place] [address] PCP - General Family Medicine 02/14/18 Kwadwo Srinivasan MD, PhD [address] [place], [place] [id number] Neurosurgery 09/19/23 Fidelina Rosas APRN.MECHANICAL INTERN [address] [place], [place] [id number] Assistant Professor Of Economics Family Medicine 09/24/24 Jeanine Fermin APRN.MECHANICAL INTERN [address] [place], [place] [id number] Assistant Professor Of Economics Family Medicine 09/24/24 Jeanine Fermin APRN.MECHANICAL INTERN [address] [place], [place] [id number] Referring Family Medicine 03/22/25 Jeanine Fermin TEA LEAF READER.MECHANICAL INTERN [address] [place], [place] [id number] Home Care Provider Family Medicine 03/22/25 Tila Caceres, [facility]-UPHOLSTERY TECHNICIAN [address] [place] [address] Solutions Consultant Post Acute Care 03/22/25 Goals (unrecognized section and content) Goals may be documented in a n alternate sectionGoals may be documented in an alternate sectionGoals may be documented in an alternate sectionGoals may be documented in an alternate sectionGoals may be documented in an alternate sectionGoals may be documented in an alternate sectionGoals may be documented in an alternate sectionGoals may be documented in an alternate sectionGoals may be documented in an alternate sectionGoals may be documented in an alternate section (unrecognized sect ion and content) No Status Records FoundNo Status Records FoundNo Status Records Found INFORMATION SOURCE (unrecogn ized section and content) DATE CREATED AUTHOR 05/24/2025 [facility] DATE CREATED AUTHOR AUTHOR'S ORGANIZ ATION 06/01/2025 [facility] DATE CREATED AUTHOR AUTHOR'S ORGANIZ ATION 06/14/2025 [facility] FOR RECORDS PERTAINING TO PATIENTS WHO [...] BE BASED ON THE PRIMARY CLINICAL RECORDS. [employer] provides no warranty or guarantee of the accuracy or completeness of information in this document.
[2025-07-07 06:39] LABS: Color, Urine Yellow (Yellow); Glucose, Dipstick Normal (Normal); Ketone-Dipstick Negative (Negative); Leukocyte Esterase-Dipstick Negative /ul (Negative); Nitrite-Dipstick Negative (Negative); Occult Blood-Urine Negative /ul (Negative); Protein-Dipstick 15 mg/dl (Negative); Specific Gravity, Urine 1.010 (1.002-1.030); Urine Bilirubin Dipstick Negative (Negative)
[2025-07-07 07:00] VITALS: BP 118/77; PULSE 80; RESP 18; TEMP 36.7; O2SAT 98
[2025-07-07 07:04] LABS: Squamous Epithelial Cells - UA 0-5 SEEN /hpf (0-5)
[2025-07-07 07:05] LABS: Anion Gap 11 (5-15); BUN 12 mg/dL (4-19); BUN/Creat Ratio 13.9 RATIO (10-20); Calcium,Total 9.2 mg/dL (7.6-11.0); Carbon Dioxide 23.0 mmol/L (21.0-32.0); Chloride 106 mmol/L (98-108); Estimated Creatinine Clearance 68.53 ml/min (50-250); Glucose 120 mg/dL (70-99); Magnesium 2.1 mg/dL (1.5-2.2); Potassium 4.2 mmol/L (3.3-5.1); Pro- Brain NATRIURETIC PEPTIDE 61 pg/mL (<=900)
[2025-07-07 07:26] VITALS: BP 118/77; PULSE 82; RESP 16; TEMP 36.6; O2SAT 97
[2025-07-07] MEDS: Albuterol Sulfate 8 gm Inhaler (60 puffs) 2 PUFF INHALATION (07:29)
== END 2025-07-07 07:39 | disposition home or self-care (01) ==
PROVIDERS: Emergency Provider Emergency Medicine; PCP Family Medicine; Visit Provider Emergency Medicine
DX: J06.9 Acute upper respiratory infection, unspecified (principal); F03.90 Unspecified dementia, unspecified severity, without behavioral disturbance, psychotic disturbance, mood disturbance, and anxiety; R06.02 Shortness of breath; E78.5 Hyperlipidemia, unspecified; Z79.899 Other long term (current) drug therapy
CPT/HCPCS: 71046; 80048; 81001; 83735; 83880; 85025; 87631; 94640; 99282; A4216

== ENCOUNTER 2025-07-27 05:55 | Observation (INO) | payer MEDICARE, SELFPAY ==
[2025-07-27] VITALS (14 sets, daily range): BP systolic 103–150; BP diastolic 74–93; PULSE 84–114; RESP 14–20; TEMP 36.4–36.8; O2SAT 91–99; BMI 24.5; BMI 24.4
[2025-07-27 06:55] LABS: Hematocrit 45.5 % (40-54); Hemoglobin 15.2 g/dL (13.0-16.5); Immature Granulocytes Count 0.070 X10^3/uL (0.0-0.0); Mean Corp Hgb Conc 33.4 g/dL (32-36); Mean Corpuscular Volume 89.6 fL (80-94); Mean Platelet Vol. 10.0 fl (6.2-12.0); NRBC Flagged by Analyzer 0 % (0-5); Platelet Count 266 K/mm3 (150-450); RBC Distribution Width CV 12.6 % (11.6-14.6); RBC Distribution Width SD 41.6 fl (35.1-43.9); Red Blood Count 5.08 M/mm3 (4.6-6.2); White Blood Count 13.3 K/mm3 (4.4-11.0)
--- NOTE | 2025-07-27 06:55 | CT_ITS ---
PROCEDURE: CTA CHEST W/WO CONTRAST 07/27/2025 REASON FOR EXAM: DYSPNEA TECHNIQUE: Procedure Code: CTCTACHWW Modality: CT Procedure: CTA CHEST W/WO CONTRAST Multiplanar Sagittal and Coronal images were obtained. CONTRAST: Isovue 370 VOLUME: 100 mL One or more dose reduction techniques were used (e.g., Automated exposure control, adjustment of the mA and/or kV according to patient size, use of iterative reconstruction technique). RADIATION DOSE SUMMARY: CTDlvol: 12.32 mGy DLP: 444.79 mGycm COMPARISON: None. # of known CTs in the past 12 months: None. # of known Cardiac Nuclear Medicine Studies in the past 12 months: None. FINDINGS: Thoracic Aorta: No aneurysm. Atherosclerotic calcifications. Heart: Mild cardiomegaly. Atherosclerotic calcifications of the coronary arteries. Pulmonary Vessels: No evidence of pulmonary embolism. Hardware: Monitor electrodes overlie the chest. Lymph nodes: No lymphadenopathy. Lungs and Airways: A 4 mm solid nodule in the left upper lobe. Pleura: No pleural effusion or pneumothorax. Upper Abdomen: No acute findings. Bones: No acute bony abnormalities. CT/CTA Chest W/WO Contrast IMPRESSION: No evidence of pulmonary embolism. A 4 mm solid nodule in the left upper lobe. Optional follow-up CT chest in 12 months is recommended for high-risk patients. Reading Location: [facility]
[2025-07-27 06:57] LABS: Prothrombin Time (Protime)PT. 12.7 SECONDS (11.7-14.9)
[2025-07-27 06:58] LABS: Partial Thromboplast Time 30.9 Seconds (24.1-36.2)
[2025-07-27 07:22] LABS: Anion Gap 11 (5-15); BUN 14 mg/dL (4-19); BUN/Creat Ratio 16.1 RATIO (10-20); Calcium,Total 9.2 mg/dL (7.6-11.0); Carbon Dioxide 21.6 mmol/L (21.0-32.0); Chloride 107 mmol/L (98-108); Estimated Creatinine Clearance 68.53 ml/min (50-250); Glucose 116 mg/dL (70-99); Magnesium 2.2 mg/dL (1.5-2.2); Potassium 3.8 mmol/L (3.3-5.1); Pro- Brain NATRIURETIC PEPTIDE 47 pg/mL (<=900)
--- NOTE | 2025-07-27 08:26 | EDS_ITS ---
HPI History of Present Illness Chief Complaint: Shortness of Breath Informant: patient and spouse/S.O. Narrative Narrative: Patient is a 70-year-old male with past medical history of hyperlipidemia and dementia. He was seen approximately 3 weeks ago secondary to cough/shortness of breath. does state that he is smoked for the majority of his life but denies any formal evaluation by pulmonology or diagnosis of COPD. At the previous workup x-ray showed changes concerning for inflammation versus developing infection and therefore he was placed on antibiotics. states that despite taking the antibiotics there was minimal symptom improvement and they followed up with the family doctor. They report he was placed on a steroid taper and is currently on it at this time as well as given a nebulizer to help with shortness of breath symptoms. states that despite these interventions the patient's cough and shortness of breath has continued to worsen. She also states he is having worsening generalized weakness. She states that he has been receiving physical therapy but that despite this he continues to deteriorate. She states that he is now becoming too difficult to care for at home. She reports that last night he awoke coughing and had difficulty clearing his secretions. She states that with the recurrent/worsening shortness of breath and concern for infection and the fact that he is becoming more more debilitated and difficult to care for he was brought in for evaluation states that the patient is a DNR Comfort Care arrest no intubation. [facility] Medical History Balance disorder Hyperlipidemia Dementia Brain bleed Home Medications Medication Instructions Recorded Last Taken Type pravastatin 20 mg tablet 40 mg PO QHS cholesterol 06/0307/23/18 22:00 History 40 mg memantine 5 mg tablet 5 mg PO BID 08/11/23 Unknown History terazosin 5 mg capsule 5 mg PO QHS 04/24/25 Unknown History ipratropium 0.5 mg-albuterol 3 mg 3 ml inhalation Q6H PRN PRN 07/27/25 Unknown History (2.5 mg base)/3 mL nebulization wheezing soln prednisone 10 mg tablet 10 mg PO 07/27/25 Unknown Hi story Allergy/AdvReac Type Severity Reaction Status Date / Time Penicillins Allergy Upset Verified 07/27/25 06:00 Stomach Social History Smoking Status: Never smoker ROS ROS ED ROS Narrative Please no review of systems was obtained from Constitutional Constitutional ED: Denies fever(s) ENT ENT ED: Reports rhinorrhea Cardiovascular Cardiovascular: Denies chest pain Respiratory/Chest Respiratory/Chest: Reports cough and dyspnea Gastrointestinal Gastrointestinal: Denies abdominal pain, diarrhea, nausea or vomiting Genitourinary Genitourinary ED: Denies dysuria Integumentary Denies rash Neurologic Neurologic: Reports weakness Hematologic/Lymphatic Hematologic/Lymphatic: Denies easy bleeding or easy bruising Allergic/Immunologic Allergic/Immunologic ED: Denies mouth swelling or tongue swelling EXAM Physical Exam Const Vital Signs: 07/27/25 05:56 07/27/25 06:04 07/27/25 06:34 Temperature 97.8 F Temperature Source Oral Pulse Rate 93 84 Respiratory Rate 20 H 16 Respiratory Effort Short of Breath Blood Pressure 150/93 H Blood Pressure Mean 112 Pulse Ox 98 Oxygen Delivery Method Room Air 07/27/25 06:58 07/27/25 07:56 Temperature 97.8 F 97.9 F Temperature Source Oral Oral Pulse Rate 91 90 Respiratory Rate 14 16 Respiratory Effort Blood Pressure 117/92 H 122/83 H Blood Pressure Mean 100 96 Pulse Ox 92 91 Oxygen Delivery Method Room Air Room Air Positive well nourished and well developed Constitutional Narrative: Patient is in mild respiratory distress with slight tachypnea and accessory muscle use General Appearance ED: well developed; Negative for pallor HEENT HEENT Narrative: Normocephalic atraumatic No tongue or lip swelling no oral lesions no airway edema or compromise Patient does have cobblestoning the posterior pharynx consistent with sinus drainage; no secondary findings to suggest infection Eyes PERRL and EOMs intact bilaterally General Eye ED: Negative for scleral icterus Neck supple and no JVD Neck Narrative: No nuchal rigidity or meningeal signs noted Soft tissue mass noted along the anterior neck near the thyroid cartilage without overlying soft tissue changes to suggest infection No subcutaneous emphysema noted Chest Wall palpation of chest normal Chest Narrative: No bony deformity or subcutaneous emphysema present Resp Resp Narrative: Patient is in mild respiratory distress with tachypnea and accessory muscle use Breath sounds are diminished throughout with diffuse expiratory wheeze consistent with history of smoking Cardio regular rate and regular rhythm Rate: other Other Details: Radial and carotid pulses are equal and symmetric GI normal to inspection, nondistended, normoactive bowel sounds, non-tender, non- distended and no masses GI Narrative: No voluntary guarding or rigidity or pulsatile mass Auscultation: normoactive bowel sounds Palpation: soft Extremity normal to inspection Extremity Narrative: No asymmetric edema no pitting edema negative Homans' sign bilaterally Neuro CN's II-XII intact bilaterally Neuro Narrative: Patient is at his baseline mental status without focal neurologic deficit Sensorium / Orientation: alert Psych Psych Narrative: Patient has a depressed/flat affect Mood & Affect: depressed Skin no rashes or lesions noted and no wounds General Skin Exam: Negative for jaundice or pallor MDM MDM MDM Narrative Medical decision making narrative: Patient arrived to the ER mildly hypertensive but otherwise with stable vitals. Despite reporting increased shortness of breath his pulse ox is in the low to mid 90s on room air and his work of breathing is only increased mildly. In order to assess for acute blood loss anemia acute kidney injury congestive heart failure pulmonary embolism pneumothorax versus pneumomediastinum versus congesti ve heart failure exacerbation basic labs were obtained as well as a CTA of the chest. Patient had viral testing such as COVID influenza and RSV at the previous ER visit which were negative and I feel no need to repeat this. Because of the increased fatigue and weakness according to thyroid level will be checked as well for potential thyroid dysfunction as well as urine sample. The white count is elevated at 13.3 but patient is currently on steroids which would explain the mild elevation. Otherwise labs revealed no clinically significant findings. CTA of the chest revealed a lung nodule but otherwise no PE no dissection no pneumonia or pneumothorax or pleural effusion. After receiving a DuoNeb nebulizer treatment in the ER the patient did have improvement of his work of breathing and breath sounds. At this time the patient's vitals are stable and his overall workup is negative. However the fact that he has been having persistent cough and shortness of breath and changes concerning for COPD exacerbation since July 07 despite antibiotics and steroids and outpatient nebulizer treatments is concerning for failure of outpatient therapy. Moreover the reports that he is becoming harder and harder to care for based on his dementia and persistent debility despite outpatient physical therapy. Therefore I feel that the patient's best method of care at this time will be admission to the hospital where he can have a potential PT OT evaluation as well as social work consult and potential hospice consult to discuss rehab/senior living placement. Patient also could potentially have a pulmonary consultation to officially diagnose COPD/emphysema and discuss further treatment options for his recurrent shortness of breath and cough. Secondary to this the case was discussed with the hospitalist who agrees to accept the patient for continued evaluation and treatment History & Record Review Discussion w/independent historian: Patient and Significant other Additional record(s) reviewed:: Prior ED visit Lab Data Attestation: I reviewed the patient's lab results. Labs: Laboratory Results - last 24 hr 07/27/25 06:30 WBC 13.3 H RBC 5.08 Hgb 15.2 Hct 45.5 MCV 89.6 MCH 29.9 MCHC 33.4 RDW Std Deviation 41.6 RDW Coeff of Angela 12.6 Plt Count 266 MPV 10.0 Immature Gran % (Auto) 0.500 Neut % (Auto) 59.3 Lymph % (Auto) 28.4 Greer % (Auto) 7.4 Eos % (Auto) 3.6 Baso % (Auto) 0.8 Absolute Neuts (auto) 7.9 H Absolute Lymphs (auto) 3.78 Nucleated RBC % 0 PT 12.7 INR 0.9 APTT 30.9 Sodium 139 Potassium 3.8 Chloride 107 Carbon Dioxide 21.6 Anion Gap 11 BUN 14 Creatinine 0.86 Estim Creat Clear Calc 68.53 Est GFR (MDRD) Non-Af 93 BUN/Creatinine Ratio 16.1 Glucose 116 H Calcium 9.2 Magnesium 2.2 NT pro BNP II 47 TSH 3.350 Radiography Diagnostic Testing: Clinical Impression(s) from Imaging Studies Chest CTA 07/27/25 06:55 IMPRESSION: No evidence of pulmonary embolism. A 4 mm solid nodule in the left upper lobe. Optional follow-up CT chest in 12 months is recommended for high-risk patients. Reading Location: [facility] Discharge Plan Dx/Rx/DC Orders Clinical Impression: Dyspnea, Tobacco use, Dementia, Debility, Generalized weakness Disposition Disposition: Acute Care Hospital [facility]
[2025-07-27 08:35] LABS: Mucous, Urine 0 SEEN /hpf (<or=2+); Squamous Epithelial Cells - UA 0 SEEN /hpf (0-5)
[2025-07-27 08:37] LABS: Color, Urine Yellow (Yellow); Glucose, Dipstick Normal (Normal); Ketone-Dipstick Negative (Negative); Leukocyte Esterase-Dipstick Negative /ul (Negative); Nitrite-Dipstick Negative (Negative); Occult Blood-Urine 25 /ul (Negative); Protein-Dipstick 15 mg/dl (Negative); Specific Gravity, Urine 1.010 (1.002-1.030); Urine Bilirubin Dipstick Negative (Negative)
[2025-07-27 08:47] LABS: Red Blood Cells-Urine 5-10 SEEN /hpf (0-5)
--- NOTE | 2025-07-27 09:08 | PCM.HP.STD ---
HPI - General General Date of Admission: 07/27/25 Date of Service: 07/27/25 Chief Complaint: Fall/debility/weakness HPI Narrative LYRIC PADRON, is a 70 M who presented to the emergency department [facility] early on the morning of 07/27/2025 with a chief complaint of shortness of breath which is a chronic issue for him, falls, debility, and weakness. Patient does have a history of COPD but does not follow with pulmonary medicine. At baseline he is on nebulizers. He also has a history of spinal cord injury and multiple brain bleeds recently. He was here and transferred to tertiary center in April. After hospitalization for his brain bleed, he was discharged to [facility] and after stay there he was discharged home and has been on therapy twice a week since that point in time. His states has been at least 2 months and he is getting ready to be discharged from home health as his therapy has been stagnant and he actually seems to be declining. His did report he is in palliative care and they have had thoughts of transitioning to hospice. Current CODE STATUS is DNR CCA with no intubation. Patient has memory impairment at baseline. His does state that he had a swallow eval here earlier this year and had been having outpatient speech therapy as well. He was not on a modified diet. Patient is not oxygen and at baseline. The patient's states he is having difficulty taking care of him with her current resources. Vital signs on presentation showed temperature 97.8, heart rate 93, respiratory 20, blood pressure was 150/93 and pulse ox was 98% room air. CBC shows a mild leukocytosis with a white count of 13.3 but no left shift. CBC is otherwise unremarkable. Coags are normal. Chemistry panel is unremarkable. proBNP is 47. Urinalysis is not consistent with infection. CTA of the chest was done and showed no evidence of PE, no significant lung abnormalities other than a 4 mm solid nodule in the left upper lobe. Per the ER physician the felt that she could not take him home and manage him so he was admitted for failure to thrive he was placed in observation status without any clinical evidence of needing full admission. After further conversation with the patient and his on presentation they would like to pursue hospice at this time. [facility] Medical History (Updated 07/27/25 @ 12:[address] Tessie Sheffield, ) Tobacco use Chronic cough BPH (benign prostatic hyperplasia) Balance disorder Hyperlipidemia Dementia Brain bleed Home Medications Medication Instructions Recorded Last Taken Type pravastatin 20 mg tablet 40 mg PO QHS cholesterol 07/24/18 07/23/18 22:00 History 40 mg memantine 5 mg tablet 5 mg PO BID 08/11/23 Unknown History terazosin 5 mg capsule 5 mg PO QHS 04/24/25 Unknown History ipratropium 0.5 mg-albuterol 3 mg 3 ml inhalation Q6H PRN PRN 07/27/25 Unknown History (2.5 mg base)/3 mL nebulization wheezing soln prednisone 10 mg tablet 10 mg PO DAILY 07/27/25 Unknown History Allergy/AdvReac Type Severity Reaction Status Date / Time Penicillins Allergy Upset Verified 07/27/25 06:00 Stomach Family History no significant family his no significant family history Social History (Updated 07/27/25 @ 12:[address] Tessei Sheffield DO) household members: spouse housing: house current occupational status: retired other: Currently enrolled in palliative care Smoking Status: Current every day smoker tobacco type: cigarettes alcohol intake: never substance use type: does not use ROS Review of Systems ROS Unobtainable: due to mental condition Vital Signs Vital Signs Vital Signs: 07/27/25 05:56 07/27/25 06:04 07/27/25 06:34 Temperature 97.8 F Temperature Source Oral Pulse Rate 93 84 Respiratory Rate 20 H 16 Respiratory Effort Short of Breath Blood Pressure 150/93 H Blood Pressure Mean 112 Pulse Ox 98 Oxygen Delivery Method Room Air 07/27/25 06:58 07/27/25 07:56 07/27/25 09:00 Temperature 97.8 F 97.9 F Temperature Source Oral Oral Pulse Rate 91 90 84 Respiratory Rate 14 16 14 Respiratory Effort Blood Pressure 117/92 H 122/83 H 103/78 Blood Pressure Mean 100 96 86 Pulse Ox 92 91 93 Oxygen Delivery Method Room Air Room Air Room Air 07/27/25 09:03 Temperature 97.8 F Temperature Source Pulse Rate 84 Respiratory Rate 14 Respiratory Effort Blood Pressure 103/78 Blood Pressure Mean 86 Pulse Ox 93 Oxygen Delivery Method Weight Weight: 66.7 kg Body Mass Index (BMI) 24.5 Physical Exam Const alert, no apparent distress and average body habitus; Negative for healthy appearing or well nourished Constitutional Narrative: Older, white male, sitting up in bed, at bedside, patient looks older than stated age, frail appearing, confused but oriented to self General Appearance: cooperative HEENT normocephalic, head/scalp atraumatic and moist oral mucous membranes HEENT Narrative: Patient with seborrhea on face Eyes conjunctivae normal Eyes Narrative: No scleral icterus Neck supple Neck Narrative: Trachea midline, no lymphadenopathy Resp normal respiratory effort, no retractions, no use of accessory muscles and clear to auscultation bilaterally Resp Narrative: Diminished but clear Auscultation: Negative for crackles, rhonchi or wheezes Cardio regular rate, regular rhythm, S1 normal heart sound, S2 normal heart sound, no murmurs, no rub, no gallops and no clicks GI normal to inspection, nondistended, normoactive bowel sounds, soft to palpation and non-tender Extremity no clubbing, cyanosis or edema Extremity Narrative: Decreasing muscle mass, right upper extremity contracted in the flexion Neuro No no focal motor deficits Neuro Narrative: Right-sided weakness with contractures noted especially in the upper extremity with decreased functional use of his right hand, speech is clear but delayed response times and answers are simple Psych Psych Narrative: Affect is slightly flat but patient makes good eye contact and interacts appropriately Results Lab / Micro Data 07/27/25 06:30 07/27/25 06:30 Labs: Laboratory Results - last 24 hr 07/27/25 06:30: WBC 13.3 H, RBC 5.08, Hgb 15.2, Hct 45.5, MCV 89.6, MCH 29.9, MCHC 33.4, RDW Std Deviation 41.6, RDW Coeff of Angela 12.6, Plt Count 266, MPV 10.0, Immature Gran % (Auto) 0.500, Neut % (Auto) 59.3, Lymph % (Auto) 28.4, [place] % (Auto) 7.4, Eos % (Auto) 3.6, Baso % (Auto) 0.8, Absolute Neuts (auto) 7.9 H, Absolute Lymphs (auto) 3.78, Nucleated RBC % 0, PT 12.7, INR 0.9, APTT 30.9, Sodium 139, Potassium 3.8, Chloride 107, Carbon Dioxide 21.6, Anion Gap 11, BUN 14, Creatinine 0.86, Estim Creat Clear Calc 68.53, Est GFR (MDRD) Non-Af 93, BUN/Creatinine Ratio 16.1, Glucose 116 H, Calcium 9.2, Magnesium 2.2, NT pro BNP II 47, TSH 3.350 07/27/25 08:30: Urine Color Yellow, Urine Clarity Clear, Urine pH 7.0, Ur Specific [place] 1.010, Urine Protein 15 H, Urine Glucose (UA) Normal, Urine Ketones Negative, Urine Occult Blood 25 H, Urine Nitrite Negative, Urine Bilirubin Negative, Urine Urobilinogen Normal, Ur Leukocyte Esterase Negative, Urine RBC 5-10 SEEN, Urine WBC 0 SEEN, Ur Squamous Epith Cells 0 SEEN, Urine Bacteria 0 SEEN, Urine Mucus 0 SEEN Imaging Radiology Impression Chest CTA 07/27/25 06:55 IMPRESSION: No evidence of pulmonary embolism. A 4 mm solid nodule in the left upper lobe. Optional follow-up CT chest in 12 months is recommended for high-risk patients. Reading Location: [facility] Assessment & Plan Assessment/Plan (1) Failure to thrive: Procedure Criteria Elective Risks - COVID COVID Risk Discussion: Failure to thrive/fall/debility/generalized weakness - Multifactorial with dwindling functional status - After extensive conversation with patient's and patient they have been enrolled in palliative care and are interested in pursuing hospice - Cancel/PT/OT consult - Will consult palliative care hospice it sounds as if home hospice would be preferential at this time and probably most appropriate currently Pulmonary nodule - With plans for hospice no follow-up needed Chronic cough/shortness of breath/COPD Patient is not oxygen dependent at baseline and stable on room air current - Scheduled nebulizers - As needed albuterol - Prednisone taper with 40 mg daily--> it appears he is chronically on 10 mg daily - Add Protonix for GI protection - Highly suspect patient is chronically aspirating possibly even saliva - Miles diet as patient is wishing to transition to hospice History of spinal cord injury - Resultant right upper extremity and lower extremity weakness/spasticity/contractures - No current issues Head bleed x 3 - Has resulted in dwindling functional status - No current head bleed suspected Hyperlipidemia - With plans to transition to hospice will discontinue statin Dementia - Continue home memantine per family's wishes BPH with obstruction - Continue home terazosin DVT prophylaxis - Subcu enoxaparin CODE STATUS - DNR CCA with no intubation Charges/Coding Visit Charges Inpatient E&M: 50802 Init Hosp L2
[2025-07-27] MEDS: Memantine Hydrochloride 5 MG Tablet PO ×2 (11:24→21:02)
--- NOTE | 2025-07-27 12:02 | CASEMGMT ---
Addendum entered by Meg Millard 07/27/25 13:30: Social Work Return call from [facility] and meeting has been set for 5:30 this evening with pt and pt's . Physician and nurse notified. MARCELLA Marshall Original Note: Social Work SW received referral from physician. Per jonathanan, pt is appropriate for hospice referral and pt's is agreeable. SW met with pts Marisela. Marisela states pt is active with Palliative care through [facility] and Marisela has been speaking with the palliative nurse regarding switching services to hospice. Marisela would like to take pt home with hospice services if possible, but states she needs to meet with hospice and have some questions answered before she decides for sure. Referral made to [facility] via Secure Email. Hospice to reach out to pt's to make an appointment and to let this SW know of the appointment time. MARCELLA Marshall
[2025-07-27] MEDS: MELATONIN 10 MG TABLET PO (21:02)
[2025-07-28] VITALS (7 sets, daily range): BP systolic 108–118; BP diastolic 69–76; PULSE 75–110; RESP 16–18; TEMP 36.5–37.1; O2SAT 95–97; BMI 24.3
[2025-07-28] MEDS: Memantine Hydrochloride 5 MG Tablet PO (08:43)
--- NOTE | 2025-07-28 09:10 | DS.PCM_ITS ---
Providers Date of Admission: 07/27/25 Date of Discharge: 07/28/25 Primary Care Physician: Dr. Geoffrey Conley MD Consultations 07/27/25 11:57 Consult: Hospice / Outpatient Palliative Care Routine Consulting Provider: [facility] Reason for Consult: ftt and dysphagia EMERGENT Consult: No MD Notified: Yes Date Notified: 07/27/25 Time Notified: 11:58 Method of Notification: Verbal Reason For Visit: FAILURE TO THRIVE Diagnosis Discharge Diagnosis (1) Failure to thrive: Status: Acute Medications at Discharge Home Medications memantine 5 mg tablet 5 mg PO BID 08/11/23 terazosin 5 mg capsule 5 mg PO QHS 04/24/25 ipratropium 0.5 mg-albuterol 3 mg (2.5 mg base)/3 mL nebulization soln 3 ml inhalation Q6H PRN PRN wheezing 07/27/25 prednisone 10 mg tablet 10 mg PO DAILY 07/27/25 Held on 07/28/25. Instructions: Until prednisone taper is completed prednisone 20 mg tablet 40 mg (2 x 20 mg) PO BREAKFAST #10 tabs 07/28/25 risperidone 0.5 mg tablet 0.5 mg PO QHS #30 tabs 07/28/25 sennosides 8.6 mg-docusate sodium 50 mg tablet (Stimulant Laxative Plus) 2 tab PO BID PRN PRN Constipation #0 tabs 07/28/25 Hospital Course Operations None Procedures - (CTA chest) Summary of Care Provided Minutes Spent on Discharge: 25 Hospital Course: LYRIC PADRON, is a 70 M who presented to the emergency department [facility] early on the morning of 07/27/2025 with a chief complaint of shortness of breath which is a chronic issue for him, falls, debility, and weakness. Patient does have a history of COPD but does not follow with pulmonary medicine. At baseline he is on nebulizers. He also has a history of spinal cord injury and multiple brain bleeds recently. He was here and transferred to tertiary center in April. After hospitalization for his brain bleed, he was discharged to [facility] and after stay there he was discharged home and has been on therapy twice a week since that point in time. His states has been at least 2 months and he is getting ready to be discharged from home health as his therapy has been stagnant and he actually seems to be declining. His did report he is in palliative care and they have had thoughts of transitioning to hospice. Current CODE STATUS is DNR CCA with no intubation. Patient has memory impairment at baseline. His does state that he had a swallow eval here earlier this year and had been having outpatient speech therapy as well. He was not on a modified diet. Patient is not oxygen and at baseline. The patient's stated he was having difficulty taking care of him with her current resources. Vital signs on presentation showed temperature 97.8, heart rate 93, respiratory 20, blood pressure was 150/93 and pulse ox was 98% room air. CBC shows a mild leukocytosis with a white count of 13.3 but no left shift. CBC is otherwise unremarkable. Coags are normal. Chemistry panel is unremarkable. proBNP is 47. Urinalysis is not consistent with infection. CTA of the chest was done and showed no evidence of PE, no significant lung abnormalities other than a 4 mm solid nodule in the left upper lobe. Per the ER physician the felt that she could not take him home and manage him so he was admitted for failure to thrive he was placed in observation status without any clinical evidence of needing full admission. After further conversation with the patient and his on presentation they would like to pursue hospice at this time. Hospice was able to meet the patient in the evening on 02/24/2025 and will be transitioning to hospice in the home on 07/28/2025. Will discontinue pravastatin as there is no ongoing need. No other medications were discontinued. We also will start low-dose risperidone in the evening to help with sleep and agitation as his does indicate he may have some sundowning. We also put him on a short burst of prednisone and then after burst is completed he will go back to his baseline dose of 10 daily. No follow-up required. Discharge diagnoses: Failure to thrive Falls Debility Generalized weakness Pulmonary nodule Chronic cough Shortness of breath COPD History of spinal cord injury Head bleed x 3 Hyperlipidemia Dementia BPH with obstruction Physical Exam Const alert, no apparent distress and average body habitus; Negative for healthy appearing or well nourished Constitutional Narrative: Older, white male, sitting up in bed, eating breakfast and watching television General Appearance: cooperative, comfortable, well kempt, well developed and appears older than stated age Exam Limitations: other limitations HEENT normocephalic, head/scalp atraumatic and moist oral mucous membranes HEENT Narrative: Mallampati 2, no thrush Eyes Eyes Narrative: No scleral icterus Neck no lymphadenopathy, supple, no JVD and no carotid bruits Resp normal respiratory effort, no retractions, no use of accessory muscles and clear to auscultation bilaterally Resp Narrative: Diffusely diminished but clear Auscultation: Negative for crackles, rhonchi or wheezes Cardio regular rate, regular rhythm, S1 normal heart sound, S2 normal heart sound, no murmurs, no rub, no gallops and no clicks GI normal to inspection, nondistended, normoactive bowel sounds and non-tender Extremity no clubbing, cyanosis or edema Neuro Neuro Narrative: Right sided focal deficits with contractures Speech: speech normal Psych Psych Narrative: Affect is slightly flat but patient makes good eye contact and interacts appropriately Weight / BMI Weight Weight: 66.1 kg Body Mass Index (BMI) 24.3 ABG / Lab / Microbiology Data 07/27/25 06:30 07/27/25 06:30 D/C Instructions Discharge Activity: Return to Normal Activity DC O2, CPAP, BIPAP Needs Home O2 Discharge instructions: No DC home with Oxygen: No Meaningful Use Info Meaningful Use Meaningful Use Diagnoses (Choose all that apply): None applicable Discharge Plan Admission Admit Date/Time: 07/27/25 09:08 Primary Reason for Your Visit: Failure to thrive/shortness of breath Attending Provider: Tessie Sheffield Primary Care Provider: Geoffrey Conley Consulting Providers: Chuck Robert; Ghada Pearson; Tahira Jenkins; Rebecca Fletcher; Leona Patrick [employer]IVER; Margarita White Discharge Orders/Prescriptions Prescriptions: New risperidone 0.5 mg Tablet 0.5 mg PO QHS Qty: 30 1RF prednisone 20 mg Tablet 40 mg PO BREAKFAST Qty: 10 0RF sennosides-docusate sodium [Stimulant Laxative Plus] 8.6-50 mg Tablet 2 tab PO BID PRN PRN (Reason: Constipation) Qty: 0 0RF Continued memantine 5 mg tablet 5 mg PO BID Patient Comments: Take 1 tablet by mouth twice daily. terazosin 5 mg capsule 5 mg PO QHS ipratropium-albuterol 0.5 mg-3 mg(2.5 mg base)/3 mL solution for nebulization 3 ml inhalation Q6H PRN PRN (Reason: wheezing) Held prednisone 10 mg tablet 10 mg PO DAILY Hold Instructions: Until prednisone taper is completed Discontinued pravastatin 20 MG tablet 40 mg PO QHS Referrals / Follow Up: Geoffrey Conley MD [Primary Care Provider, Medical] - See Referral Note Referral Note: As needed Disposition Disposition (needs filled in before D/C Order can be placed): Hospice in Home Charges/Coding Visit Charges Inpatient E&M: 70460 Disch Hosp
[2025-07-28] MEDS: FLU VACCINE HIGH DOSE 25-26(65YR UP) 180 MCG/0.5 ML SYRINGE IM (10:30)
== END 2025-07-28 15:32 | disposition hospice, home (50) ==
LOC: ED 09:13 → MS3 09:25
PROVIDERS: Admitting Provider Internal Medicine; Emergency Provider Emergency Medicine; PCP Family Medicine; Visit Provider Internal Medicine
DX: J43.9 Emphysema, unspecified (principal); F03.90 Unspecified dementia, unspecified severity, without behavioral disturbance, psychotic disturbance, mood disturbance, and anxiety; Z79.899 Other long term (current) drug therapy; R62.7 Adult failure to thrive; R53.1 Weakness; F17.210 Nicotine dependence, cigarettes, uncomplicated; N40.1 Benign prostatic hyperplasia with lower urinary tract symptoms; E78.5 Hyperlipidemia, unspecified; R91.1 Solitary pulmonary nodule; R53.81 Other malaise; R13.10 Dysphagia, unspecified; N13.8 Other obstructive and reflux uropathy; Z66 Do not resuscitate; Z79.52 Long term (current) use of systemic steroids; R06.02 Shortness of breath
CPT/HCPCS: 71275; 80048; 81001; 83735; 83880; 84443; 85025; 85610; 85730; 94640; 94668; 96372; 99221; 99252; 99283; Q9967; A4216; G0378; G0463